=== PATIENT | female | born 1950 | race Caucasian/White ===

== ENCOUNTER → 2016-11-22 | Outpatient (CLI) | payer MEDICARE, BC ==
--- NOTE | 2016-11-22 16:06 | XR ---
EXAMINATION TYPE: XR chest 2V DATE OF EXAM: 11/22/2016 3:20 PM HISTORY: J44.9 COPD. REFERENCE: Previous study dated 04/18/2015. FINDINGS: Lung volumes are mildly prominent. The heart is mildly enlarged. There is some scarring in the left midlung. The right lung is clear. Pleural spaces are clear. IMPRESSION: 1. COPD. 2. CARDIOMEGALY. 3. SCARRING, LEFT MIDLUNG.
== END | disposition home or self-care (01) ==
LOC: RADXRMAIN 14:55
PROVIDERS: ATTEND Family Medicine
DX: J44.9 Chronic obstructive pulmonary disease, unspecified (principal); I51.7 Cardiomegaly; J98.4 Other disorders of lung
CPT/HCPCS: 71020

== ENCOUNTER 2016-11-24 14:15 | Inpatient (IN) | payer MEDICARE, BC ==
[2016-11-24] MEDS ORDERED: IPRATROPIUM-ALBUTEROL 3 ML NEB INHALATION STA (15:20)
[2016-11-24] MEDS ORDERED: methylPREDNISolone SOD SUCCI 125 MG/2 ML VIAL IV STA (15:20)
--- NOTE | 2016-11-24 15:25 | ED ---
General Adult HPI - General Chief complaint: Shortness of Breath Stated complaint: sent by dr toledo for SOB Time Seen by Provider: 11/24/16 15:07 Source: patient, RN notes reviewed Mode of arrival: ambulatory Limitations: no limitations - History of Present Illness Initial comments: Patient is a pleasant 66-year-old female presenting to the emergency Department with shortness of breath. Symptoms have been present for a few days. Patient saw her doctor and started on Medrol Dosepak without improvement of symptoms. No cough. No chest pain. No leg pain or swelling. - Related Data Home Medications Medication Instructions Recorded Confirmed Aspirin 81 mg PO DAILY 12/17/14 11/24/16 Fluticasone Propionate [Flonase 1 spray EA NOSTRIL DAILY PRN 12/17/14 11/24/16 Allergy Relief] Furosemide [Lasix] 20 mg PO DAILY PRN 12/17/14 11/24/16 Insulin NPL/Insulin Lispro 70 unit SQ HS 12/17/14 11/24/16 [humaLOG Mix 75-25 Kwikpen] Lisinopril [Prinivil] 10 mg PO DAILY 12/17/14 11/24/16 Potassium Chloride [Klor-Con 20] 20 meq PO DAILY PRN 12/17/14 11/24/16 metFORMIN HCL [Glucophage] 850 mg PO AC-SUPPER 12/17/14 11/24/16 Albuterol Inhaler [Ventolin Hfa 1 - 2 puff INHALATION RT-Q6H PRN 04/18/15 Inhaler] Budesonide-Formot 160-4.5 Mcg 2 puff INHALATION RT-BID 04/18/15 11/24/16 [Symbicort 160-4.5 Mcg Inhaler] Hydrocodone/Acetaminophen 1 tab PO BID PRN 04/18/15 11/24/16 [Hydrocodon-Acetaminophen 5-325] Insulin NPL/Insulin Lispro 60 unit SQ DAILY 04/18/15 11/24/16 [humaLOG Mix 75-25 Kwikpen] Tiotropium [place] [Spiriva] 18 mcg IH RT-DAILY 04/18/15 11/24/16 metFORMIN HCL [Glucophage] 1,700 mg PO AC-BRKFST 04/18/15 11/24/16 methylPREDNISolone Dose Pack See Taper PO DAILY 04/18/15 11/24/16 [Medrol Dose Pack] Atorvastatin [Lipitor] 80 mg PO HS 11/24/16 11/24/16 Insulin Glargine,Hum.rec.anlog 60 unit SQ HS 11/24/16 11/24/16 [Lantus Solostar] Ipratropium-Albuterol Nebulize 3 ml INHALATION RT-QID PRN 11/24/16 11/24/16 [Duoneb 0.5 mg-3 mg/3 ml Soln] Ketoconazole 2% Cream [Nizoral 2%] 1 applic TOPICAL DAILY PRN 11/24/16 11/24/16 Metoprolol Succinate (ER) [Toprol 50 mg PO DAILY 11/24/16 11/24/16 Xl] Nystatin 100,000 Unit/ml Susp 5 ml PO QID 11/24/16 11/24/16 [Mycostatin Oral Susp] Previous Rx's Medication Instructions Recorded Docusate [Colace] 100 mg PO DAILY PRN #30 cap 04/21/15 Nitroglycerin Sl Tabs [Nitrostat] 0.4 mg SUBLINGUAL Q5M PRN #1 bottle 04/21/15 Prasugrel [Effient] 10 mg PO DAILY #30 tab 04/21/15 Allergies Allergy/AdvReac Type Severity Reaction Status Date / Time codeine Allergy Nausea & Verified 11/24/16 15:15 Vomiting Review of Systems ROS Statement: Those systems with pertinent positive or pertinent negative responses have been documented in the HPI. ROS Other: All systems not noted in ROS Statement are negative. Constitutional: Denies: fever, chills Eyes: Denies: eye pain ENT: Denies: ear pain Respiratory: Reports: dyspnea. Denies: cough Cardiovascular: Denies: chest pain Endocrine: Denies: fatigue Gastrointestinal: Denies: abdominal pain Genitourinary: Denies: dysuria Musculoskeletal: Denies: back pain Skin: Denies: rash Neurological: Denies: weakness Past Medical History Past Medical History: Asthma, Chest Pain / Angina, COPD, Diabetes Mellitus, Hyperlipidemia, Hypertension, Myocardial Infarction ([place]), Syncope Additional Past Medical History / Comment(s): NEBULIZER AT HOME, Last Myocardial Infarction Date:: 2010 History of Any Multi-Drug Resistant Organisms: None Reported Past Surgical History: Cholecystectomy, Heart Catheterization With Stent Past Anesthesia/Blood Transfusion Reactions: No Reported Reaction Additional Past Anesthesia/Blood Transfusion Reaction / Comment(s): CLAUSTERPHOBIA Date of Last Stent Placement:: 2010 Past Psychological History: No Psychological Hx Reported Smoking Status: Former smoker Past Alcohol Use History: None Reported Additional Past Alcohol Use History / Comment(s): STARTED SMOKING AT AGE 14- WORKED UP TO 3 PPD, QUIT 2010 Past Drug Use History: None Reported - Past Family History Father Family Medical History: Myocardial Infarction ([place]) Additional Family Medical History / Comment(s): STENT, OPEN HEART SURGERY Mother Additional Family Medical History / Comment(s): DEPRESSION General Exam Limitations: no limitations General appearance: alert, in no apparent distress Head exam: Present: atraumatic Eye exam: Present: normal appearance, PERRL ENT exam: Present: normal oropharynx Neck exam: Present: normal inspection Respiratory exam: Present: decreased breath sounds Cardiovascular Exam: Present: regular rate, normal rhythm GI/Abdominal exam: Present: soft. Absent: tenderness Extremities exam: Present: normal inspection. Absent: pedal edema, calf tenderness Back exam: Present: normal inspection Neurological exam: Present: alert Psychiatric exam: Present: normal affect, normal mood Skin exam: Present: normal color Course Vital Signs 11/24/16 11/24/16 11/24/16 14:45 15:18 15:19 Temperature 98.7 F Pulse Rate 77 67 Respiratory 24 20 20 Rate Blood Pressure 154/65 110/67 O2 Sat by Pulse 94 L 99 Oximetry 11/24/16 11/24/16 15:36 15:47 Temperature Pulse Rate 66 66 Respiratory Rate Blood Pressure O2 Sat by Pulse Oximetry EKG Findings - EKG Comments: EKG Findings:: Normal sinus rhythm at 74. LA 196. QRS 114. QT 412. QTC 457. Left axis. Left anterior fascicular block. LVH with repolarization. Nonspecific T waves. Medical Decision Making - Medical Decision Making Patient reevaluated and resting comfortably in bed. Patient updated on results and plan. Concern for non-ST elevation myocardial infarction secondary to elevated troponin. Patient will be treated for this and cardiology consult. Admission orders written. IV heparin started. Case discussed in detail with Dr. Hamlin, who will admit for Dr. Zelaya. - Lab Data Result diagrams: 11/24/16 15:35 11/24/16 15:35 Lab Results 03/31/17 03/31/17 03/31/17 Range/Units 15:35 15:35 15:35 WBC 16.9 H (3.8-10.6) k/uL RBC 3.76 L (3.80-5.40) m/uL Hgb 11.7 (11.4-16.0) gm/dL Hct 35.2 (34.0-46.0) % MCV 93.7 (80.0-100.0) fL MCH 31.1 (25.0-35.0) pg MCHC 33.2 (31.0-37.0) g/dL RDW 13.1 (11.5-15.5) % Plt Count 338 (150-450) k/uL Neutrophils % 84 % Lymphocytes % 10 % Monocytes % 5 % Eosinophils % 0 % Basophils % 0 % Neutrophils # 14.2 H (1.3-7.7) k/uL Lymphocytes # 1.7 (1.0-4.8) k/uL Monocytes # 0.8 (0-1.0) k/uL Eosinophils # 0.1 (0-0.7) k/uL Basophils # 0.1 (0-0.2) k/uL PT (9.0-12.0) sec INR (<1.1) APTT (22.0-30.0) sec Sodium 140 (137-145) mmol/L Potassium 4.4 (3.5-5.1) mmol/L Chloride 102 (98-107) mmol/L Carbon Dioxide 26 (22-30) mmol/L Anion Gap 12 mmol/L BUN 19 H (7-17) mg/dL Creatinine 0.73 (0.52-1.04) mg/dL Est GFR (MDRD) Af Amer >60 (>60 ml/min/1.73 sqM) Est GFR (MDRD) Non-Af >60 (>60 ml/min/1.73 sqM) Glucose 394 H (74-99) mg/dL Calcium 9.0 (8.4-10.2) mg/dL Total Bilirubin 0.9 (0.2-1.3) mg/dL AST 25 (14-36) U/L ALT 28 (9-52) U/L Alkaline Phosphatase 68 (38-126) U/L Total Creatine Kinase 170 H (30-135) U/L CK-MB (CK-2) 4.2 H* (0.0-2.4) ng/mL CK-MB (CK-2) Rel Index 2.5 Troponin I 1.050 H* (0.000-0.034) ng/mL Total Protein 6.5 (6.3-8.2) g/dL Albumin 3.7 (3.5-5.0) g/dL 11/24/16 Range/Units 15:35 WBC (3.8-10.6) k/uL RBC (3.80-5.40) m/uL Hgb (11.4-16.0) gm/dL Hct (34.0-46.0) % MCV (80.0-100.0) fL MCH (25.0-35.0) pg MCHC (31.0-37.0) g/dL RDW (11.5-15.5) % Plt Count (150-450) k/uL Neutrophils % % Lymphocytes % % Monocytes % % Eosinophils % % Basophils % % Neutrophils # (1.3-7.7) k/uL Lymphocytes # (1.0-4.8) k/uL Monocytes # (0-1.0) k/uL Eosinophils # (0-0.7) k/uL Basophils # (0-0.2) k/uL PT 10.6 (9.0-12.0) sec INR 1.0 (<1.1) APTT 21.9 L (22.0-30.0) sec Sodium (137-145) mmol/L Potassium (3.5-5.1) mmol/L Chloride (98-107) mmol/L Carbon Dioxide (22-30) mmol/L Anion Gap mmol/L BUN (7-17) mg/dL Creatinine (0.52-1.04) mg/dL Est GFR (MDRD) Af Amer (>60 ml/min/1.73 sqM) Est GFR (MDRD) Non-Af (>60 ml/min/1.73 sqM) Glucose (74-99) mg/dL Calcium (8.4-10.2) mg/dL Total Bilirubin (0.2-1.3) mg/dL AST (14-36) U/L ALT (9-52) U/L Alkaline Phosphatase (38-126) U/L Total Creatine Kinase (30-135) U/L CK-MB (CK-2) (0.0-2.4) ng/mL CK-MB (CK-2) Rel Index Troponin I (0.000-0.034) ng/mL Total Protein (6.3-8.2) g/dL Albumin (3.5-5.0) g/dL - Radiology Data Radiology results: image reviewed (Chest x-ray shows COPD. No acute process.) Critical Care Time Critical Care Time: Yes Total Critical Care Time: 33 Disposition Clinical Impression: COPD exacerbation, NSTEMI (non-ST elevated myocardial infarction) Disposition: ADMITTED IP TO THIS HOSP Condition: Serious Time of Disposition: 16:51
[2016-11-24 15:44] LABS: Basophils # (A) 0.1 k/uL (0-0.2); Basophils % (A) 0 %; CH 30.6; CHCM 32.8; Eosinophils # (A) 0.1 k/uL (0-0.7); Eosinophils % (A) 0 %; HCT 35.2 % (34.0-46.0); HDW 2.68; HGB 11.7 gm/dL (11.4-16.0); Luc # (Auto) 0.19; Luc % (Auto) 1; Lymphocytes # (A) 1.7 k/uL (1.0-4.8); Lymphocytes % (A) 10 %; MCH 31.1 pg (25.0-35.0); MCHC 33.2 g/dL (31.0-37.0); MCV 93.7 fL (80.0-100.0); Mean Platelet Volume 7.3; Monocytes # (A) 0.8 k/uL (0-1.0); Monocytes % (A) 5 %; Neutrophils # (A) 14.2 k/uL (1.3-7.7); Neutrophils % (A) 84 %; RBC 3.76 m/uL (3.80-5.40); RDW 13.1 % (11.5-15.5); WBC 16.9 k/uL (3.8-10.6); WBC (Perox) 17.07
[2016-11-24 15:52] LABS: ALT 28 U/L (9-52); AST 25 U/L (14-36); Alkaline Phosphatase 68 U/L (38-126); Anion Gap 12 mmol/L; Blood Urea Nitrogen 19 mg/dL (7-17); Carbon Dioxide 26 mmol/L (22-30); Chloride 102 mmol/L (98-107); Glucose 394 mg/dL (74-99); Non-African American GFR(MDRD) >60 (>60 ml/min/1.73 sqM); Potassium 4.4 mmol/L (3.5-5.1); Sodium 140 mmol/L (137-145); Total Bilirubin 0.9 mg/dL (0.2-1.3); Total Protein 6.5 g/dL (6.3-8.2)
[2016-11-24 16:14] LABS: Partial Thromboplastin Time 21.9 sec (22.0-30.0); Prothrombin Time 10.6 sec (9.0-12.0)
[2016-11-24 16:19] LABS: Creatine Kinase MB 4.2 ng/mL (0.0-2.4)
[2016-11-24 16:21] LABS: Troponin I 1.05 ng/mL (0.000-0.034)
--- NOTE | 2016-11-24 16:23 | XR ---
EXAMINATION TYPE: XR chest 2V DATE OF EXAM: 11/24/2016 4:06 PM HISTORY: difficulty breathing. REFERENCE: Previous study dated 11/22/2016. FINDINGS: The lungs are overinflated. The heart is enlarged. There is atelectatic change in the left midlung and at the right lung base. The overall appearance has not changed from previous. IMPRESSION: 1. COPD. 2. CARDIOMEGALY. 3. BILATERAL AREAS OF ATELECTASIS.
[2016-11-24] MEDS ORDERED: NITROGLYCERIN SL TABS 0.4 MG TAB SUBLINGUAL PRN ×2 (16:52→17:48)
[2016-11-24] MEDS ORDERED: HEPARIN SODIUM,PORCINE 5,000 UNIT/ML 1 ML VIAL IV PRN (16:52)
[2016-11-24] MEDS ORDERED: HEPARIN SODIUM,PORCINE 5,000 UNIT/ML 1 ML VIAL IV ONE (16:52)
[2016-11-24] MEDS ORDERED: IPRATROPIUM-ALBUTEROL 3 ML NEB INHALATION PRN (16:52)
[2016-11-24] MEDS ORDERED: ASPIRIN 81 MG CHEW PO STA (16:52)
[2016-11-24] MEDS ORDERED: HEPARIN SODIUM,PORCINE/D5W PMX 25,000 UNIT in DEXTROSE/WATER 1 500ML.BAG IV SCH (17:00)
[2016-11-24] MEDS ORDERED: CLOTRIMAZOLE 1% CREAM 15 GM TUBE TOPICAL PRN (17:48)
[2016-11-24] MEDS ORDERED: DOCUSATE 100 MG CAP PO PRN (17:48)
[2016-11-24] MEDS ORDERED: FUROSEMIDE 20 MG TAB PO PRN (17:48)
[2016-11-24] MEDS ORDERED: FLUTICASONE 50MCG/SPRAY NASAL 16GM EA NOSTRIL PRN (17:48)
[2016-11-24] MEDS ORDERED: ALBUTEROL NEBULIZED 2.5 MG/3 ML INHALATION PRN (17:51)
[2016-11-24 18:29] LABS: Glucose,Whole Blood 365 mg/dL (75-99)
[2016-11-24] MEDS ORDERED: INSULIN REGULAR BOLUS (FROM DRIP BAG) IV ONE (18:33)
[2016-11-24 19:26] LABS: Hemoglobin A1C 9.9 % (4.2-6.1)
[2016-11-24] MEDS ORDERED: IPRATROPIUM-ALBUTEROL 3 ML NEB INHALATION SCH (20:00)
[2016-11-24] MEDS: INSULIN REGULAR 100 UNIT in SODIUM CHLORIDE 0.9% 100 ML IV SCH ×2 (20:03→23:34)
[2016-11-24 20:12] LABS: Glucose,Whole Blood 526 mg/dL (75-99)
[2016-11-24] MEDS: IPRATROPIUM-ALBUTEROL 3 ML NEB INHALATION SCH (20:27)
[2016-11-24] MEDS: SYMBICORT 160-4.5 MCG INHALER INHALATION SCH (20:27)
[2016-11-24 20:32] LABS: Glucose,Whole Blood 449 mg/dL (75-99)
[2016-11-24] MEDS ORDERED: INSULIN LISPRO (humaLOG) 300 UNIT/3 ML VIAL SQ ONE (20:43)
[2016-11-24 21:24] LABS: Glucose,Whole Blood 393 mg/dL (75-99)
[2016-11-24 21:38] LABS: Creatine Kinase MB 3.8 ng/mL (0.0-2.4); Troponin I 0.867 ng/mL (0.000-0.034)
[2016-11-24 21:57] LABS: Glucose,Whole Blood 362 mg/dL (75-99)
[2016-11-24 22:00] LABS: Glucose,Whole Blood 436 mg/dL (75-99)
[2016-11-24] MEDS: methylPREDNISolone SOD SUCCI 125 MG/2 ML VIAL IV SCH ×2 (22:02→23:37)
[2016-11-24 22:30] LABS: Glucose,Whole Blood 364 mg/dL (75-99)
[2016-11-24 23:03] LABS: Glucose,Whole Blood 328 mg/dL (75-99)
[2016-11-24 23:28] LABS: Glucose,Whole Blood 316 mg/dL (75-99)
[2016-11-24] MEDS: ATORVASTATIN 80 MG TAB PO SCH (23:35)
[2016-11-24] MEDS: NITROGLYCERIN OINT 1 INCH/GM PACKET TOPICAL SCH ×2 (23:35→23:42)
[2016-11-24] MEDS: NYSTATIN 100,000 UNIT/ML SUSP 500,000 UNIT/5 ML CUP PO SCH ×2 (23:36→23:38)
[2016-11-24 23:57] LABS: Glucose,Whole Blood 296 mg/dL (75-99)
[2016-11-25] MEDS: ATORVASTATIN 80 MG TAB PO SCH ×2 (00:15→21:04)
[2016-11-25 00:35] LABS: Glucose,Whole Blood 298 mg/dL (75-99)
[2016-11-25 00:58] LABS: Glucose,Whole Blood 272 mg/dL (75-99)
[2016-11-25] MEDS: HYDROcodone/APAP 5-325MG 1 EACH TAB PO PRN ×3 (00:59→21:07)
[2016-11-25 01:31] LABS: Glucose,Whole Blood 264 mg/dL (75-99)
[2016-11-25 02:19] LABS: Glucose,Whole Blood 259 mg/dL (75-99)
[2016-11-25 02:37] LABS: Glucose,Whole Blood 235 mg/dL (75-99)
[2016-11-25 04:08] LABS: Creatine Kinase MB 2.9 ng/mL (0.0-2.4); Troponin I 0.657 ng/mL (0.000-0.034)
[2016-11-25 04:26] LABS: Glucose,Whole Blood 229 mg/dL (75-99)
[2016-11-25 06:16] LABS: Glucose,Whole Blood 211 mg/dL (75-99)
[2016-11-25] MEDS: NITROGLYCERIN OINT 1 INCH/GM PACKET TOPICAL SCH ×3 (06:25→20:37)
[2016-11-25] MEDS: methylPREDNISolone SOD SUCCI 125 MG/2 ML VIAL IV SCH ×2 (06:25→13:40)
[2016-11-25 06:30] LABS: Anion Gap 10 mmol/L; Blood Urea Nitrogen 24 mg/dL (7-17); Calcium 9.2 mg/dL (8.4-10.2); Carbon Dioxide 24 mmol/L (22-30); Chloride 105 mmol/L (98-107); Cholesterol 112 mg/dL (<200); Glucose 206 mg/dL (74-99); HDL Cholesterol 46 mg/dL (40-60); Non-African American GFR(MDRD) >60 (>60 ml/min/1.73 sqM); Potassium 4.3 mmol/L (3.5-5.1); Sodium 139 mmol/L (137-145); Triglycerides 86 mg/dL (<150)
[2016-11-25] MEDS: INSULIN LISPRO (humaLOG) 300 UNIT/3 ML VIAL SQ SCH (06:32)
[2016-11-25 06:52] LABS: Basophils % (A) 0 %; CH 30.9; CHCM 33.2; Eosinophils % (A) 0 %; HCT 33.8 % (34.0-46.0); HDW 2.63; HGB 11.1 gm/dL (11.4-16.0); Luc # (Auto) 0.08; Luc % (Auto) 1; Lymphocytes # (A) 1.1 k/uL (1.0-4.8); Lymphocytes % (A) 8 %; MCH 30.6 pg (25.0-35.0); MCHC 32.7 g/dL (31.0-37.0); MCV 93.6 fL (80.0-100.0); Mean Platelet Volume 8.8; Monocytes # (A) 0.5 k/uL (0-1.0); Monocytes % (A) 4 %; Neutrophils # (A) 11.2 k/uL (1.3-7.7); Neutrophils % (A) 87 %; RBC 3.61 m/uL (3.80-5.40); RDW 13.3 % (11.5-15.5); WBC 12.9 k/uL (3.8-10.6); WBC (Perox) 13.26
[2016-11-25 08:34] LABS: Glucose,Whole Blood 223 mg/dL (75-99)
--- NOTE | 2016-11-25 08:35 | P.CRDCN ---
History of Present Illness Consult date: 11/25/16 Requesting physician: Rohan Hamlin Consult reason: chest pain Chief complaint: Shortness of breath History of present illness: This is a pleasant 66-year-old female with history of diabetes, hypertension, hyperlipidemia, coronary artery disease with prior stent placement to the LAD as well as the RCA. The most recent stents were placed in March 2015 at which time she underwent stenting of the LAD and the RCA. Patient also has a history of asthma. Patient presents to the hospital with a two-week duration of progressively worsening shortness of breath. She states that she was treated with steroids as an outpatient, with no relief of symptoms. She was using her breathing treatments frequently without any relief. 2 nights ago, the patient states she had significant chest heaviness with her breathing, the night before she came in she had upper scapula discomfort and pain down her left arm. For this reason she came to the emergency room for further evaluation. Initial troponin on presentation here 1.05, subsequent troponin 0.8 and 0.6. Blood sugars on arrival 365. BUN 24, creatinine 0.7. White blood cell count on arrival 16.9, 12.9 this morning. Elevated white blood cell count could be secondary to steroids as an outpatient. The pressure on arrival 154/65, heart rate in the 70s. Blood pressure this morning 140/60. The patient has been afebrile. She was initiated on IV heparin in the emergency room, she is also on an aspirin daily, Lipitor, lisinopril, metoprolol tartrate, and Effient. At the time of my examination this morning, patient does state that her breathing is somewhat improved, she denies any chest pain at present. She is on an insulin drip. Past Medical History Past Medical History: Asthma, Chest Pain / Angina, COPD, Diabetes Mellitus, Hyperlipidemia, Hypertension, Myocardial Infarction ([place]), Syncope Additional Past Medical History / Comment(s): NEBULIZER AT HOME, Last Myocardial Infarction Date:: 2010 History of Any Multi-Drug Resistant Organisms: None Reported Past Surgical History: Cholecystectomy, Heart Catheterization With Stent Additional Past Surgical History / Comment(s): 1st stent in 2010, 3 more stents placed -about 2014 Past Anesthesia/Blood Transfusion Reactions: No Reported Reaction Additional Past Anesthesia/Blood Transfusion Reaction / Comment(s): CLAUSTERPHOBIA Date of Last Stent Placement:: 2014 Past Psychological History: No Psychological Hx Reported Smoking Status: Former smoker Past Alcohol Use History: None Reported Additional Past Alcohol Use History / Comment(s): STARTED SMOKING AT AGE 14- WORKED UP TO 3 PPD, QUIT 2010 Past Drug Use History: None Reported - Past Family History Father Family Medical History: Myocardial Infarction ([place]) Additional Family Medical History / Comment(s): STENT, OPEN HEART SURGERY Mother Additional Family Medical History / Comment(s): DEPRESSION Medications and Allergies Home Medications Medication Instructions Recorded Confirmed Type Aspirin 81 mg PO DAILY 12/17/14 11/24/16 History Fluticasone Propionate [Flonase 1 spray EA NOSTRIL DAILY PRN 12/17/14 11/24/16 History Allergy Relief] Furosemide [Lasix] 20 mg PO DAILY PRN 12/17/14 11/24/16 History Insulin NPL/Insulin Lispro 70 unit SQ AC-SUPPER 12/17/14 11/24/16 History [humaLOG Mix 75-25 Kwikpen] Lisinopril [Prinivil] 10 mg PO DAILY 12/17/14 11/24/16 History Potassium Chloride [Klor-Con 20] 20 meq PO DAILY PRN 12/17/14 11/24/16 History metFORMIN HCL [Glucophage] 850 mg PO AC-SUPPER 12/17/14 11/24/16 History Albuterol Inhaler [Ventolin Hfa 1 - 2 puff INHALATION RT-Q6H PRN 04/18/15 History Inhaler] Budesonide-Formot 160-4.5 Mcg 2 puff INHALATION RT-BID 04/18/15 11/24/16 History [Symbicort 160-4.5 Mcg Inhaler] Hydrocodone/Acetaminophen 1 tab PO BID PRN 04/18/15 11/24/16 History [Hydrocodon-Acetaminophen 5-325] Insulin NPL/Insulin Lispro 60 unit SQ DAILY 04/18/15 11/24/16 History [humaLOG Mix 75-25 Kwikpen] Tiotropium [place] [Spiriva] 18 mcg IH RT-DAILY 04/18/15 11/24/16 History metFORMIN HCL [Glucophage] 1,700 mg PO AC-BRKFST 04/18/15 11/24/16 History methylPREDNISolone Dose Pack See Taper PO DAILY 04/18/15 11/24/16 History [Medrol Dose Pack] Atorvastatin [Lipitor] 80 mg PO HS 11/24/16 11/24/16 History Insulin Glargine,Hum.rec.anlog 60 unit SQ HS 11/24/16 11/24/16 History [Lantus Solostar] Ipratropium-Albuterol Nebulize 3 ml INHALATION RT-QID PRN 11/24/16 11/24/16 History [Duoneb 0.5 mg-3 mg/3 ml Soln] Ketoconazole 2% Cream [Nizoral 2%] 1 applic TOPICAL DAILY PRN 11/24/16 11/24/16 History Metoprolol Succinate (ER) [Toprol 50 mg PO DAILY 11/24/16 11/24/16 History Xl] Nystatin 100,000 Unit/ml Susp 5 ml PO QID 11/24/16 11/24/16 History [Mycostatin Oral Susp] Allergies Allergy/AdvReac Type Severity Reaction Status Date / Time codeine Allergy Nausea & Verified 11/24/16 15:15 Vomiting Physical Exam Vitals: Vital Signs Temp Pulse Pulse Resp BP BP Pulse Ox 11/25/16 04:00 97.0 F L 51 L 16 141/64 97 11/25/16 00:00 97.6 F 65 16 172/73 98 11/24/16 20:30 80 11/24/16 20:19 80 11/24/16 20:00 97.2 F L 73 18 166/70 97 11/24/16 18:00 97.1 F L 65 16 158/75 98 11/24/16 17:35 97.9 F 68 16 188/81 98 Intake and Output 11/24/16 11/25/16 11/25/16 22:59 06:59 14:59 Intake Total 187.572 960.782 Balance 187.572 960.782 Intake: IV 259 Heparin Sodium,Porcine/ 139 D5w Pmx 25,000 unit In Dextrose/Water 1 500ml. bag @ 9.3 UNITS/KG/HR 19. 91 mls/hr IV .Q24H KAREN Rx #:[id number] Insulin Regular 100 unit 120 In Sodium Chloride 0.9% 100 ml @ Titrate IV .Q0M KAREN Rx#:[id number] Intake, IV Titration 67.572 401.782 Amount Heparin Sodium,Porcine/ 313.203 D5w Pmx 25,000 unit In Dextrose/Water 1 500ml. bag @ 9.3 UNITS/KG/HR 19. 91 mls/hr IV .Q24H KAERN Rx #:[id number] Insulin Regular 100 unit 67.572 88.579 In Sodium Chloride 0.9% 100 ml @ Titrate IV .Q0M KAREN Rx#:[id number] Oral 120 300 Other: Voiding Method Toilet Toilet # Voids 1 Weight 107.048 kg 109.6 kg PHYSICAL EXAMINATION: HEENT: Head is atraumatic, normocephalic. Pupils equal, round. Neck is supple. There is no elevated jugular venous pressure. HEART EXAMINATION: Heart S1, S2 normal. No murmur or gallop heard. CHEST EXAMINATION: Lungs are clear to auscultation and precussion with a mild decrease in air exchange. No chest wall tenderness is noted on palpation or with deep breathing. ABDOMEN: Soft, obese, nontender. Bowel sounds are heard. No organomegaly noted. EXTREMITIES: 1+ peripheral pulses with no evidence of peripheral edema and no calf tenderness noted. NEUROLOGIC patient is awake, alert and oriented -3. . Results 11/25/16 05:39 11/25/16 05:39 Cardiac Enzymes 11/24/16 11/25/16 Range/Units 20:53 03:01 CK-MB (CK-2) 3.8 H* 2.9 H* (0.0-2.4) ng/mL Troponin I 0.867 H* 0.657 H* (0.000-0.034) ng/mL Coagulation 11/24/16 11/25/16 Range/Units 23:37 05:39 APTT 23.9 29.4 (22.0-30.0) sec Lipids 11/25/16 Range/Units 05:39 Triglycerides 86 (<150) mg/dL Cholesterol 112 (<200) mg/dL HDL Cholesterol 46 (40-60) mg/dL CBC 11/25/16 Range/Units 05:39 WBC 12.9 H (3.8-10.6) k/uL RBC 3.61 L (3.80-5.40) m/uL Hgb 11.1 L (11.4-16.0) gm/dL Hct 33.8 L (34.0-46.0) % Plt Count 296 (150-450) k/uL Comprehensive Metabolic Panel 11/25/16 Range/Units 05:39 Sodium 139 (137-145) mmol/L Potassium 4.3 (3.5-5.1) mmol/L Chloride 105 (98-107) mmol/L Carbon Dioxide 24 (22-30) mmol/L BUN 24 H (7-17) mg/dL Creatinine 0.70 (0.52-1.04) mg/dL Glucose 206 H (74-99) mg/dL Calcium 9.2 (8.4-10.2) mg/dL Current Medications Generic Name Dose Route Start Last Admin Trade Name Freq PRN Reason Stop Dose Admin Hydrocodone Bitart/Acetaminophen 1 each 11/24/16 17:48 11/25/16 00:59 [place] 5-325 PO 1 each BID PRN Administration Pain Albuterol Sulfate 2.5 mg 11/24/16 17:51 Ventolin Nebulized INHALATION RT-Q2H PRN Shortness Of Breath Or Wheezing Albuterol/Ipratropium 3 ml 11/24/16 20:00 11/24/16 20:27 Duoneb 0.5 Mg-3 Mg/3 Ml Soln INHALATION 3 ml RT-QID KAREN Administration Aspirin 325 mg 11/25/16 09:00 Aspirin PO DAILY KAREN Atorvastatin Calcium 80 mg 11/24/16 21:00 11/25/16 00:15 Lipitor PO Not Given HS KAREN Budesonide/Formoterol Fumarate 2 puff 11/24/16 20:00 11/24/16 20:27 Symbicort 160-4.5 Mcg Inhaler INHALATION 2 puff RT-BID KAREN Administration Clotrimazole 1 applic 11/24/16 17:48 Lotrimin Cream TOPICAL DAILY PRN Rash Docusate Sodium 100 mg 11/24/16 17:48 Colace PO DAILY PRN constipation Fluticasone Propionate 1 spray 11/24/16 17:48 Flonase Nasal [place] EA NOSTRIL DAILY PRN Allergy Symptoms Furosemide 20 mg 11/24/16 17:48 Lasix PO DAILY PRN SWELLING/EDEMA Heparin Sodium (Porcine) 0 unit 11/24/16 16:52 Heparin IV Q6HR PRN Low PTT Protocol Heparin Sodium/Dextrose 25,000 500 mls @ 19.91 mls/hr 11/24/16 17:00 06:47 unit/ IV Solution IV 15.3 units/kg/hr .Q24H KAREN 32.75 mls/hr Protocol Titration 9.3 UNITS/KG/HR Insulin Human Regular 100 unit 101 mls @ 0 mls/hr 11/24/16 18:45 11/25/16 06: 21 / Sodium Chloride IV 0.06 units/kg/hr .Q0M KAREN 7 mls/hr Protocol Titration Titrate Insulin Human Lispro 14 unit 11/25/16 07:30 11/25/16 06:32 Humalog SQ Not Given AC-TID [facility] Lisinopril 10 mg 11/25/16 09:00 Zestril PO DAILY [facility] Methylprednisolone Sodium Succinate 60 mg 11/24/16 18:00 11/25/16 06:25 Solu-Medrol IV 60 mg Q6HR KAREN Administration Metoprolol Succinate 50 mg 11/25/16 09:00 Toprol Xl PO DAILY [facility] Nitroglycerin 1 inch 11/24/16 18:00 11/25/16 06:25 Nitro-Bid Oint TOPICAL 1 inch Q6HR [facility] Administration Nitroglycerin 0.4 mg 11/24/16 16:52 Nitrostat SUBLINGUAL Q5M PRN Chest Pain Nystatin 500,000 unit 11/24/16 18:00 11/24/16 23:38 Mycostatin Oral Susp PO Not Given QID [facility] Prasugrel 10 mg 11/25/16 09:00 Effient PO DAILY [facility] Sodium Chloride 10 ml 11/24/16 21:00 11/24/16 23:36 Saline Flush IV 10 ml BID KAREN Administration Intake and Output 11/24/16 11/25/16 11/25/16 22:59 06:59 14:59 Intake Total 187.572 960.782 Balance 187.572 960.782 Intake: IV 259 Heparin Sodium,Porcine/ 139 D5w Pmx 25,000 unit In Dextrose/Water 1 500ml. bag @ 9.3 UNITS/KG/HR 19. 91 mls/hr IV .Q24H [facility] Rx #:[id number] Insulin Regular 100 unit 120 In Sodium Chloride 0.9% 100 ml @ Titrate IV .Q0M [facility] Rx#:[id number] Intake, IV Titration 67.572 401.782 Amount Heparin Sodium,Porcine/ 313.203 D5w Pmx 25,000 unit In Dextrose/Water 1 500ml. bag @ 9.3 UNITS/KG/HR 19. 91 mls/hr IV .Q24H KAREN Rx #:[id number] Insulin Regular 100 unit 67.572 88.579 In Sodium Chloride 0.9% 100 ml @ Titrate IV .Q0M KAREN Rx#:[id number] Oral 120 300 Other: Voiding Method Toilet Toilet # Voids 1 Weight 107.048 kg 109.6 kg 11/25/16 05:39 11/25/16 05:39 EKG Interpretations (text) EKG on arrival showed normal sinus rhythm with lateral ST-T wave changes. Subsequent EKG performed this morning shows a sinus bradycardia with first- degree AV block and evidence of inferior ST-T wave changes. Assessment and Plan Plan: Assessment and plan #1 symptoms of progressive shortness of breath with associated chest heaviness and left arm discomfort suggestive of acute coronary syndrome. Troponins 1.05, 0.8, 0.6. EKG shows normal sinus rhythm with inferior lateral ST-T wave changes. #2 known history of coronary artery disease with prior stent placement of the LAD and RCA, most recent procedure was done in March 2015 at which time patient underwent stenting of the LAD and RCA. #3 uncontrolled diabetes #4 hypertension #5 hyperlipidemia #6 asthma Plan We will obtain an echocardiogram with Doppler study. Continue IV heparin. The patient has been advised that she may need to undergo cardiac catheterization for more definitive diagnosis, the risks and the benefits once again were explained to the patient in detail. Further recommendations will be based on these findings and patient's clinical course. DNP note has been reviewed, I agree with a documented findings and plan of care. Patient was seen and examined.
[2016-11-25] MEDS: SYMBICORT 160-4.5 MCG INHALER INHALATION SCH ×2 (08:39→20:50)
[2016-11-25] MEDS: IPRATROPIUM-ALBUTEROL 3 ML NEB INHALATION SCH ×4 (08:39→20:50)
[2016-11-25] MEDS ORDERED: ASPIRIN 325 MG TAB PO SCH (09:00)
[2016-11-25] MEDS ORDERED: LISINOPRIL 10 MG TAB PO SCH (09:00)
[2016-11-25] MEDS ORDERED: PRASUGREL 10 MG TAB PO SCH (09:00)
--- NOTE | 2016-11-25 10:17 | P.PN ---
Progress Note - Text this is an addendum to the dictated cardiology consultation. The patient has a history of CAD status post stenting of the RCA and LAD in March 2015 who presents with symptoms of progressive chest discomfort and had evidence of non- ST segment elevation ND. She is pain-free at this time. She is not very active physically and has some dyspnea on exertion. Her EKG shows sinus mechanism with T-wave inversion in the inferior leads and her troponin were elevated on presentation and are on the way down. When she had her percutaneous revascularization she received 2 stents in the RCA and one stent in the LAD. 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 Based on the prior history and the pattern of the symptoms I would recommend to proceed with coronary angiography to assess her status and guide her treatment. The rationale behind the procedure as well as the risk and the complications were discussed with the patient who was in full understanding and agreement. Thank you for this consult we will follow with you.
[2016-11-25] MEDS ORDERED: SODIUM CHLORIDE 0.9% 1,000 ML in EMPTY BAG 1 BAG IV ONE (10:58)
[2016-11-25] MEDS ORDERED: ATORVASTATIN 80 MG TAB PO STA (10:58)
[2016-11-25] MEDS ORDERED: ASPIRIN 325 MG TAB PO STA (10:58)
[2016-11-25] MEDS ORDERED: ALPRAZolam 0.5 MG TAB PO PRN (10:58)
[2016-11-25] MEDS ORDERED: NITROGLYCERIN SL TABS 0.4 MG TAB SUBLINGUAL PRN (10:58)
[2016-11-25] MEDS ORDERED: ALPRAZolam 0.25 MG TAB PO PRN (10:58)
[2016-11-25] MEDS: METOPROLOL SUCCINATE (ER) 50 MG TAB.ER.24H PO SCH (11:48)
[2016-11-25] MEDS: NYSTATIN 100,000 UNIT/ML SUSP 500,000 UNIT/5 ML CUP PO SCH ×4 (11:49→21:08)
[2016-11-25 11:51] LABS: Glucose,Whole Blood 201 mg/dL (75-99)
--- NOTE | 2016-11-25 12:00 | P.CNPUL ---
History of Present Illness Consult date: 11/25/16 Requesting physician: Rohan Hamlin Reason for consult: dyspnea Chief complaint: shortness of breath, back pain History of present illness: This is a very pleasant 66-year-old female patient who follows with Dr. Gonzales as her primary care physician. she has a history of hypertension, hyperlipidemia,diabetes mellitus, coronary artery disease with previous stent placements, morbid obesity. She also has a history of chronic obstructive pulmonary disease from previous smoking history and follows with Dr. Monique in our office for the same. She is maintained on Symbicort, Spiriva and albuterol. She presented here yesterday with complaints of increasing shortness of breath on minimal exertion. She also had some back discomfort radiating down her arms. She is found to be a non-ST segment elevation myocardial infarction and the plan is for cardiac catheterization today.she is seen in consultation on the selective care unit. She is currently awake and alert in no acute distress. Her chest x-ray shows evidence of chronic obstructive disease, cardiomegaly and bilateral atelectasis. No significant change from previous. She is maintaining good O2 saturations in the upper 90s on room air. She's been afebrile. She denies any current chest discomfort. No back pain. No palpitations, lightheadedness or dizziness. Review of Systems 14 point review of system was conducted. All negative other than as mentioned in HPI. Past Medical History Past Medical History: Asthma, Chest Pain / Angina, COPD, Diabetes Mellitus, Hyperlipidemia, Hypertension, Myocardial Infarction (CO), Syncope Additional Past Medical History / Comment(s): NEBULIZER AT HOME, Last Myocardial Infarction Date:: 2010 History of Any Multi-Drug Resistant Organisms: None Reported Past Surgical History: Cholecystectomy, Heart Catheterization With Stent Additional Past Surgical History / Comment(s): 1st stent in 2010, 3 more stents placed -about 2014 Past Anesthesia/Blood Transfusion Reactions: No Reported Reaction Additional Past Anesthesia/Blood Transfusion Reaction / Comment(s): CLAUSTERPHOBIA Date of Last Stent Placement:: 2014 Past Psychological History: No Psychological Hx Reported Smoking Status: Former smoker Past Alcohol Use History: None Reported Additional Past Alcohol Use History / Comment(s): STARTED SMOKING AT AGE 14- WORKED UP TO 3 [employer], QUIT 2010 Past Drug Use History: None Reported - Past Family History Father Family Medical History: Myocardial Infarction (CO) Additional Family Medical History / Comment(s): STENT, OPEN HEART SURGERY Mother Additional Family Medical History / Comment(s): DEPRESSION Medications and Allergies Home Medications Medication Instructions Recorded Confirmed Type Aspirin 81 mg PO DAILY 12/17/14 11/24/16 History Fluticasone Propionate [Flonase 1 spray EA NOSTRIL DAILY PRN 12/17/14 11/24/16 History Allergy Relief] Furosemide [Lasix] 20 mg PO DAILY PRN 12/17/14 11/24/16 History Insulin NPL/Insulin Lispro 70 unit SQ AC-SUPPER 12/17/14 11/24/16 History [humaLOG Mix 75-25 Kwikpen] Lisinopril [Prinivil] 10 mg PO DAILY 12/17/14 11/24/16 History Potassium Chloride [Klor-Con 20] 20 meq PO DAILY PRN 12/17/14 11/24/16 History metFORMIN HCL [Glucophage] 850 mg PO AC-SUPPER 12/17/14 11/24/16 History Albuterol Inhaler [Ventolin Hfa 1 - 2 puff INHALATION RT-Q6H PRN 04/18/15 History Inhaler] Budesonide-Formot 160-4.5 Mcg 2 puff INHALATION RT-BID 04/18/15 11/24/16 History [Symbicort 160-4.5 Mcg Inhaler] Hydrocodone/Acetaminophen 1 tab PO BID PRN 04/18/15 11/24/16 History [Hydrocodon-Acetaminophen 5-325] Insulin NPL/Insulin Lispro 60 unit SQ DAILY 04/18/15 11/24/16 History [humaLOG Mix 75-25 Kwikpen] Tiotropium Brohard [Spiriva] 18 mcg IH RT-DAILY 04/18/15 11/24/16 History metFORMIN HCL [Glucophage] 1,700 mg PO AC-BRKFST 04/18/15 11/24/16 History methylPREDNISolone Dose Pack See Taper PO DAILY 04/18/15 11/24/16 History [Medrol Dose Pack] Atorvastatin [Lipitor] 80 mg PO HS 11/24/16 11/24/16 History Insulin Glargine,Hum.rec.anlog 60 unit SQ HS 11/24/16 11/24/16 History [Lantus Solostar] Ipratropium-Albuterol Nebulize 3 ml INHALATION RT-QID PRN 11/24/16 11/24/16 History [Duoneb 0.5 mg-3 mg/3 ml Soln] Ketoconazole 2% Cream [Nizoral 2%] 1 applic TOPICAL DAILY PRN 11/24/16 11/24/16 History Metoprolol Succinate (ER) [Toprol 50 mg PO DAILY 11/24/16 11/24/16 History Xl] Nystatin 100,000 Unit/ml Susp 5 ml PO QID 11/24/16 11/24/16 History [Mycostatin Oral Susp] Allergies Allergy/AdvReac Type Severity Reaction Status Date / Time codeine Allergy Nausea & Verified 11/24/16 15:15 Vomiting Physical Exam Vitals: Vital Signs Temp Pulse Pulse Resp BP BP Pulse Ox 11/25/16 09:07 72 18 11/25/16 08:49 80 11/25/16 08:39 72 11/25/16 04:00 97.0 F L 51 L 16 141/64 97 11/25/16 00:00 97.6 F 65 16 172/73 98 11/24/16 20:30 80 11/24/16 20:19 80 11/24/16 20:00 97.2 F L 73 18 166/70 97 11/24/16 18:00 97.1 F L 65 16 158/75 98 11/24/16 17:35 97.9 F 68 16 188/81 98 Intake and Output 11/24/16 11/25/16 11/25/16 22:59 06:59 14:59 Intake Total 187.572 960.782 Balance 187.572 960.782 Intake: IV 259 Heparin Sodium,Porcine/ 139 D5w Pmx 25,000 unit In Dextrose/Water 1 500ml. bag @ 9.3 UNITS/KG/HR 19. 91 mls/hr IV .Q24H KAREN Rx #:[id number] Insulin Regular 100 unit 120 In Sodium Chloride 0.9% 100 ml @ Titrate IV .Q0M KAREN Rx#:[id number] Intake, IV Titration 67.572 401.782 Amount Heparin Sodium,Porcine/ 313.203 D5w Pmx 25,000 unit In Dextrose/Water 1 500ml. bag @ 9.3 UNITS/KG/HR 19. 91 mls/hr IV .Q24H KAREN Rx #:[id number] Insulin Regular 100 unit 67.572 88.579 In Sodium Chloride 0.9% 100 ml @ Titrate IV .Q0M KAREN Rx#:[id number] Oral 120 300 Other: Voiding Method Toilet Toilet Toilet # Voids 1 Weight 107.048 kg 109.6 kg 109.6 kg Patient Weight 11/26/16 06:59 Weight 109.6 kg GENERAL EXAM: Morbidly obese. Alert, comfortable in no apparent distress. HEAD: Normocephalic. EYES: Normal reaction of pupils, equal size. NOSE: Clear with pink turbinates. THROAT: There is crowding the posterior pharynx.No erythema or exudates. NECK: Short.No masses, no JVD. CHEST: No chest wall deformity. LUNGS: Equal air entry with no crackles, wheeze, rhonchi or dullness. CVS: S1 and S2 normal with no audible murmurs, regular rhythm. ABDOMEN: Obese, normal bowel sounds, no guarding or rigidity. SPINE: No scoliosis or deformity SKIN: No rashes CENTRAL NERVOUS SYSTEM: No focal deficits, tone is normal in all 4 extremities. Extremities: There is trace peripheral edema. No clubbing, no cyanosis. Peripheral pulses are intact. Results - Laboratory Findings CBC and BMP: 11/25/16 05:39 11/25/16 05:39 PT/INR, D-dimer PT 10.6 sec (9.0-12.0) 11/24/16 15:35 INR 1.0 (<1.1) 11/24/16 15:35 Abnormal lab findings: Abnormal Labs 11/24/16 11/24/16 11/24/16 18:24 20:01 20:31 WBC RBC Hgb Hct Neutrophils # BUN Glucose POC Glucose (mg/dL) 365 H 526 H 449 H Total Creatine Kinase CK-MB (CK-2) Troponin I 11/24/16 11/24/16 11/24/16 20:53 21:05 21:23 WBC RBC Hgb Hct Neutrophils # BUN Glucose POC Glucose (mg/dL) 436 H 393 H Total Creatine Kinase 169 H CK-MB (CK-2) 3.8 H* Troponin I 0.867 H* 11/24/16 11/24/16 11/24/16 21:55 22:28 23:01 WBC RBC Hgb Hct Neutrophils # BUN Glucose POC Glucose (mg/dL) 362 H 364 H 328 H Total Creatine Kinase CK-MB (CK-2) Troponin I 11/24/16 11/24/16 11/25/16 23:28 23:56 00:32 WBC RBC Hgb Hct Neutrophils # BUN Glucose POC Glucose (mg/dL) 316 H 296 H 298 H Total Creatine Kinase CK-MB (CK-2) Troponin I 11/25/16 11/25/16 11/25/16 00:57 01:30 02:02 WBC RBC Hgb Hct Neutrophils # BUN Glucose POC Glucose (mg/dL) 272 H 264 H 259 H Total Creatine Kinase CK-MB (CK-2) Troponin I 11/25/16 11/25/16 11/25/16 02:35 03:01 04:24 WBC RBC Hgb Hct Neutrophils # BUN Glucose POC Glucose (mg/dL) 235 H 229 H Total Creatine Kinase CK-MB (CK-2) 2.9 H* Troponin I 0.657 H* 11/25/16 11/25/16 11/25/16 05:39 05:39 06:13 WBC 12.9 H RBC 3.61 L Hgb 11.1 L Hct 33.8 L Neutrophils # 11.2 H BUN 24 H Glucose 206 H POC Glucose (mg/dL) 211 H Total Creatine Kinase CK-MB (CK-2) Troponin I 11/25/16 08:31 WBC RBC Hgb Hct Neutrophils # BUN Glucose POC Glucose (mg/dL) 223 H Total Creatine Kinase CK-MB (CK-2) Troponin I - Diagnostic Findings Chest x-ray: image reviewed Assessment and Plan Plan: Impression: #1 Non-ST segment elevation myocardial infarction. #2 Coronary artery disease with previous stent placements 4. #3 History of chronic tobacco use. #4 Chronic obstructive pulmonary disease, currently inactive and stable. #5 Hypertension. #6 Hyperlipidemia. #7 Morbid obesity. Plan: The patient was seen and evaluated by Dr. Maciel. Her chest x-ray and labs were reviewed. From the pulmonary standpoint she is quite stable. We'll assure she is back on her usual pulmonary medications. The plan is for cardiac catheterization today. We will continue to follow make further recommendations based on her clinical status.
[2016-11-25] MEDS ORDERED: LIDOCAINE 2% INJ 20 MG/ML (20 ML MDV) ONE (13:37)
[2016-11-25] MEDS ORDERED: IV FLUID CONTINUATION 1,000 ML IV ONE (13:40)
[2016-11-25] MEDS ORDERED: POTASSIUM CHLORIDE ER 20 MEQ TAB.ER PO PRN (13:45)
[2016-11-25] MEDS ORDERED: VERAPAMIL 2.5 MG/ML 2 ML AMP ONE (13:53)
[2016-11-25] MEDS ORDERED: diphenhydrAMINE 50 MG/ML 1 ML VIAL ONE (14:13)
[2016-11-25] MEDS ORDERED: fentaNYL (PF) 50 MCG/ML 2 ML AMP ONE (14:13)
[2016-11-25] MEDS ORDERED: fentaNYL (PF) 50 MCG/ML 2 ML AMP IV ONE (14:14)
[2016-11-25] MEDS ORDERED: diphenhydrAMINE 50 MG/ML 1 ML VIAL IVP ONE (14:15)
[2016-11-25] MEDS ORDERED: LIDOCAINE 2% INJ 20 MG/ML SQ ONE (14:17)
[2016-11-25] MEDS ORDERED: VERAPAMIL SYRINGE (5 MG/10 ML) INTRAARTER ONE (14:19)
[2016-11-25] MEDS ORDERED: HEPARIN SODIUM 1,000 UNIT/ML VIAL ONE (14:35)
[2016-11-25] MEDS ORDERED: IOHEXOL 350 MG/ML 100 ML BOTTLE INJ ONE (14:40)
[2016-11-25] MEDS ORDERED: RX INFO: IV CONTRAST WAS GIVEN 1 EACH MISC MISCELLANE PRN (14:52)
[2016-11-25] MEDS ORDERED: SODIUM CHLORIDE 0.9% 1,000 ML IV SCH (15:00)
[2016-11-25 15:23] LABS: Glucose,Whole Blood 287 mg/dL (75-99)
--- NOTE | 2016-11-25 16:37 | HP ---
DATE OF ADMISSION: CHIEF COMPLAINT: Shortness of breath and chest pain. HISTORY OF PRESENT ILLNESS: This 66-year-old woman with a past medical history of multiple medical problems including history of asthma, COPD, history of diabetes, hypertension, hyperlipidemia, history of myocardial infarction, cholecystitis, CAD, stent, being followed by Dr. Gonzales in the outpatient setting was admitted to [facility] complaining initially of shortness of breath. Subsequently patient felt heavy type of chest pain in the anterior part of chest which was radiating to the neck as well as shoulder and right arm. The patient came to [facility] and admitted for further evaluation and treatment. evaluation showed elevated WBC of 12.9. The troponin is 1.0867 indicating the possibility of acute non-ST elevation myocardial infarction. Cardiology evaluated the patient and cardiac catheterization has been recommended at this time. There is no history of fever, rigors. No history of headache, loss of consciousness, seizures. PAST MEDICAL HISTORY: History of chronic obstructive pulmonary disease, asthma, history of diabetes mellitus type 2, history of hypertension, hyperlipidemia, history of myocardial infarction, history of syncope, history of coronary artery disease and stent. Medications prior to admission include home medications are: 1. Insulin lispro 75/25 70 units a.c. supper. 2. Lipitor 80 mg q.h.s. 3. Medrol Dosepak. 4. 17 mg a.c. breakfast and 850 mg a.c. supper. 5. Spiriva 1 puff daily. 6. Effient 10 mg p.o. daily. 7. Klor-Con 20 mEq p.o. daily p.r.n. 8. Mycostatin 5 mL p.o. daily. 9. Nitrostat 0.4 sublingual p.r.n. 10. Toprol-XL 50 mg p.o. daily. 11. Prinivil 10 mg p.o. daily. 12. Nizoral 2% daily p.r.n. 13. DuoNeb 3 mL q.i.d. p.r.n. 14. Insulin lispro 16 units subcu daily. 15. Insulin Lantus 60 units subcu q.h.s. 16. [place] 5 mg b.i.d. p.r.n. 17. Lasix 20 mg daily p.r.n. 18. Flonase one spray daily p.r.n. 19. Colace 100 mg daily p.r.n. 20. Symbicort 160/4.5, 2 puffs b.i.d. 21. Aspirin 81 mg daily. 22. Albuterol 2 puffs q.6 p.r.n. ALLERGIES: CODEINE. FAMILY HISTORY: History of myocardial infarction in the family and stent and open heart surgery in the family. SOCIAL HISTORY: Previous history of smoking. Occasional alcohol intake. REVIEW OF SYSTEMS: ENT: No diminished hearing. No diminished vision. CARDIOVASCULAR: As mentioned earlier. RESPIRATORY: As mentioned earlier. GI: No nausea. : No dysuria. NERVOUS SYSTEM: No numbness or weakness. ALLERGY/IMMUNOLOGY: As mentioned earlier. MUSCULOSKELETAL: As mentioned earlier. ENDOCRINE: As mentioned earlier. CONSTITUTIONAL: As mentioned earlier. DERMATOLOGY: Negative. RHEUMATOLOGY: Negative. PSYCHIATRY: As mentioned earlier. PHYSICAL EXAMINATION: Alert and oriented x3. Pulse is 64, blood pressure 130/60, respirations 16, temperature normal, pulse ox 96% on room air. HEENT: Conjunctivae normal. Oral mucosa moist. NECK: No jugular venous distention. No carotid bruit. No lymph node enlargement. CARDIOVASCULAR: S1 and S2, muffled. No S3, no S4. RESPIRATORY: Breath sounds diminished at the bases. A few scattered rhonchi, no crackles. ABDOMEN: Soft, obese, nontender. No mass palpable. LEGS: No edema, no swelling. NERVOUS SYSTEM: Higher function as mentioned. Moves all four limbs. No focal motor deficits. LYMPHATIC: No lymphadenopathy in the neck, axillae or groin. SKIN: No ulcer, rash or bleeding. LABS: WBC 16.9, hemoglobin 11.1, glucose 94. Troponin 0.86. ASSESSMENT: 1. Chest pain with possible acute non-ST segment elevation myocardial infarction with troponin 0.867. 2. Shortness of breath possibly multifactorial with chronic obstructive pulmonary disease and asthma. 3. Increased WBC, possibly reactive. 4. Anemia, normocytic anemia of chronic disease. 5. Diabetes mellitus type 2. 6. Obesity with body mass index of 41.5. 7. Asthma and chronic obstructive pulmonary disease history. 8. History of coronary artery disease and stent. 9. Hypertension. 10. Hyperlipidemia. 11. History of myocardial infarction. 12. History of syncope. 13. Remote history nicotine dependence. 14. FULL CODE. RECOMMENDATIONS AND DISCUSSION: In this 66-year-old woman who presented with multiple complex medical issues, will monitor the patient closely. Continue the current medications, continue symptomatic treatment. Will initiate intensive bronchodilator treatment. Otherwise, steroids, which could be tapered as well. Cardiology consultation and possible cardiac catheterization. Guarded prognosis because of multiple complex medical issues. Further recommendations to follow. Copy of dictation forwarded to Dr. Gonzales who is the primary physician. Pulmonary also has been consulted. MARYD
[2016-11-25 17:14] LABS: Glucose,Whole Blood 338 mg/dL (75-99)
[2016-11-25] MEDS ORDERED: INSULIN NPL/INSULIN LISPRO 100 UNIT/ML 10 ML VIAL (Humalog 75/25) SQ SCH (17:30)
[2016-11-25] MEDS ORDERED: MD COMMUNICATION TO PHARMACY 1 EACH MISC PO ONE (17:51)
--- NOTE | 2016-11-25 17:54 | ECHOF ---
Referral Reason:chest pain MEASUREMENTS -------- HEIGHT: 162.6 cm WEIGHT: 109.3 kg BP: 141/64 RVIDd: 2.6 cm (< 3.3) IVSd: 1.4 cm (0.6 - 1.1) LVIDd: 4.7 cm (3.9 - 5.3) LVPWd: 1.5 cm (0.6 - 1.1) IVSs: 1.6 cm LVIDs: 4.0 cm LVPWs: 1.8 cm LA Diam: 3.7 cm (2.7 - 3.8) LAESV Index (A-L): 33.75 ml/m Ao Diam: 3.2 cm (2.0 - 3.7) AV Cusp: 2.0 cm (1.5 - 2.6) LA Diam: 4.2 cm (2.7 - 3.8) MV EXCURSION: 14.447 mm (> 18.000) MV EF SLOPE: 28 mm/s (70 - 150) EPSS: 0.6 cm MV E Syed: 0.94 m/s MV A Syed: 0.98 m/s MV E/A Ratio: 0.96 RAP: 5.00 mmHg RVSP: 12.89 mmHg FINDINGS -------- Sinus rhythm. This was a technically adequate study. The left ventricular size is normal. There is moderate concentric left ventricular hypertrophy. Overall left ventricular systolic function is low-normal with, an EF between 50 - 55 %. The right ventricle is normal in size. LA is midly dilated 29-33ml/m2. The right atrial size is normal. There is mild aortic valve sclerosis. There is no evidence of aortic regurgitation. Mild mitral annular calcification present. Mild mitral regurgitation is present. Mild tricuspid regurgitation present. There is no evidence of pulmonary hypertension. The right ventricular systolic pressure, as measured by Doppler, is 12.89mmHg. There is no pulmonic regurgitation present. There is no pericardial effusion. CONCLUSIONS -------- 1. Sinus rhythm. 2. There is no evidence of pulmonary hypertension. 3. There is no pulmonic regurgitation present. 4. There is no pericardial effusion. 5. This was a technically adequate study. 6. There is moderate concentric left ventricular hypertrophy. 7. Overall left ventricular systolic function is low-normal with, an EF between 50 - 55 %. 8. LA is midly dilated 29-33ml/m2. 9. There is mild aortic valve sclerosis. 10. Mild mitral annular calcification present. 11. Mild mitral regurgitation is present. 12. Mild tricuspid regurgitation present. MENTAL HEALTH WORKER: Frida Daily RDCS
[2016-11-25] MEDS: methylPREDNISolone SOD SUCCI 40 MG/ML 1 ML VIAL IV SCH (20:31)
[2016-11-25] MEDS ORDERED: INSULIN GLARGINE 100 UNIT/ML 10 ML VIAL SQ SCH (21:00)
[2016-11-25] MEDS: HEPARIN SODIUM,PORCINE/D5W PMX 25,000 UNIT in DEXTROSE/WATER 1 500ML.BAG IV SCH (21:06)
[2016-11-25] MEDS: LISINOPRIL 10 MG TAB PO SCH (21:07)
--- NOTE | 2016-11-25 22:08 | CC ---
Mrs. Shah is a 66-year-old female with known history of coronary artery disease, who presented with symptoms of chest discomfort and evidence of non-ST segment elevation myocardial infarction. In view of that, recommendation was made to get a cardiac catheterization. The procedure as well as the risks and complications were discussed with the patient, who is in full understanding and agreement. 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 Using Xylocaine anesthesia and Seldinger technique, a 6 Uzbek sheath was introduced in the right radial artery. Selective right and left coronary angiography was performed using 5 Uzbek 3-1/2 Bend right and left Kendall catheter. Multiple views of the coronary arteries, including hemiaxial views, were obtained. Following that, a 5 Uzbek tight pigtail catheter was used in the left ventricle and a 30-degree SHARPE view of the left ventricle was obtained. Following that, catheter and sheaths were removed. Hemostasis was obtained with deployment of a TR band. There was no immediate complication. Patient is returned to her room in stable condition. Of note, the patient received 5000 units intravenous heparin as well as intra-arterial verapamil. FINDINGS: Left main: This is a short-sized vessel bifurcating into left circumflex and left anterior descending artery. Left main coronary artery is without any significant obstructive disease. Left anterior descending artery: This is a large-size vessel reaching toward the apex, giving rise to 2 diagonal branches. The proximal segment of the LAD has eccentric calcified 60% to 70% plaque right after the take off of the diagonal branch. There is another plaque of 60% to 70%. The rest of the vessel has diffuse intimal disease without any high-grade stenosis. The stented segment is patent. Left circumflex: This is a nondominant vessel, giving rise to 3 obtuse marginal branches. The first one is large in caliber and has a 70% to 80% plaque proximally. The rest of the vessel has no high-grade stenosis. Right coronary artery: This vessel is totally occluded in the mid segment with no antegrade flow. Collateral: There is collateral from the left coronary system toward the right PDA. Left ventriculogram: Left ventriculogram was performed in 30-degree SHARPE view and revealed a normal size with minimal hypokinesis of the inferior mccarthy. Ejection fraction is 50%. There was no significant mitral regurgitation. HEMODYNAMICS: There was no gradient across the aortic valve. The left ventricular end-diastolic pressure was 26 mmHg. CONCLUSION: 1. Chronically occluded right coronary artery with collateral from the left system. 2. Progression of disease in the proximal and the mid left anterior descending. 3. Significant disease in the first obtuse marginal branch. RECOMMENDATIONS: In view of the findings and the anatomy as well as the history of diabetes. I have recommended to proceed with evaluation for coronary artery bypass grafting. Those findings and recommendations were discussed with the patient and she was in full understanding and agreement.
--- NOTE | 2016-11-25 22:12 | LTR ---
November 25, 2016 RE: AlyssaNancy Dear Dr. Gonzales: I had the pleasure to perform cardiac catheterization on Mrs. Shah at [facility] on 25 of November and a fully copy of the procedure note will be forwarded to you. In brief, she was found to have a chronically occluded right coronary artery with progression of disease in the LAD and the obtuse marginal branch and based on those findings, I have recommended proceeding with evaluation for possible coronary artery bypass grafting. I will keep you updated on her progress. Thank you again for allowing me to participate in this pleasant patient's care. Please feel free to call for any questions. Sincerely yours, KWASI RANDOLPH MD
[2016-11-25 22:15] LABS: Glucose,Whole Blood 368 mg/dL (75-99)
[2016-11-25 22:15] LABS: Glucose,Whole Blood 367 mg/dL (75-99)
[2016-11-25] MEDS ORDERED: INSULIN REGULAR BOLUS (FROM DRIP BAG) IV ONE (23:35)
[2016-11-25] MEDS ORDERED: INSULIN LISPRO (humaLOG) 300 UNIT/3 ML VIAL SQ ONE (23:37)
[2016-11-26 01:43] LABS: Glucose,Whole Blood 359 mg/dL (75-99)
[2016-11-26] MEDS: INSULIN REGULAR 100 UNIT in SODIUM CHLORIDE 0.9% 100 ML IV SCH ×2 (01:46→13:06)
[2016-11-26] MEDS: methylPREDNISolone SOD SUCCI 40 MG/ML 1 ML VIAL IV SCH ×4 (01:47→21:00)
[2016-11-26] MEDS: NITROGLYCERIN OINT 1 INCH/GM PACKET TOPICAL SCH ×5 (01:48→21:01)
[2016-11-26 02:21] LABS: Glucose,Whole Blood 383 mg/dL (75-99)
[2016-11-26 03:23] LABS: Glucose,Whole Blood 298 mg/dL (75-99)
[2016-11-26 03:42] LABS: Glucose,Whole Blood 249 mg/dL (75-99)
[2016-11-26 05:49] LABS: Basophils % (A) 0 %; CH 30.5; CHCM 32.4; Eosinophils % (A) 0 %; HCT 34.6 % (34.0-46.0); HDW 2.56; Luc # (Auto) 0.18; Luc % (Auto) 1; Lymphocytes # (A) 1.3 k/uL (1.0-4.8); Lymphocytes % (A) 8 %; MCH 30.2 pg (25.0-35.0); MCHC 31.9 g/dL (31.0-37.0); MCV 94.7 fL (80.0-100.0); Mean Platelet Volume 6.7; Monocytes # (A) 0.8 k/uL (0-1.0); Monocytes % (A) 5 %; Neutrophils % (A) 86 %; RBC 3.66 m/uL (3.80-5.40); RDW 13.4 % (11.5-15.5); WBC 16.3 k/uL (3.8-10.6); WBC (Perox) 17.25
[2016-11-26 05:49] LABS: Glucose,Whole Blood 179 mg/dL (75-99)
[2016-11-26 05:57] LABS: Partial Thromboplastin Time 30.3 sec (22.0-30.0); Prothrombin Time 10.6 sec (9.0-12.0)
[2016-11-26 06:00] LABS: ALT 42 U/L (9-52); AST 41 U/L (14-36); Alkaline Phosphatase 51 U/L (38-126); Anion Gap 8 mmol/L; Blood Urea Nitrogen 28 mg/dL (7-17); Carbon Dioxide 24 mmol/L (22-30); Chloride 108 mmol/L (98-107); Glucose 162 mg/dL (74-99); Magnesium 2.2 mg/dL (1.6-2.3); Non-African American GFR(MDRD) >60 (>60 ml/min/1.73 sqM); Potassium 4.3 mmol/L (3.5-5.1); Sodium 140 mmol/L (137-145); Total Bilirubin 0.7 mg/dL (0.2-1.3); Total Protein 6.2 g/dL (6.3-8.2)
[2016-11-26 06:29] LABS: Hepatitis B Surface Ag Index 0.05
[2016-11-26 06:35] LABS: Hepatitis B Core IgM Index 0.02
[2016-11-26] MEDS: INSULIN LISPRO (humaLOG) 300 UNIT/3 ML VIAL SQ SCH ×4 (06:42→17:39)
[2016-11-26 06:46] LABS: Hepatitis C Virus IgG Index 0.01
[2016-11-26 06:50] LABS: Hepatitis C Virus IgG Ab Negative (Negative)
[2016-11-26] MEDS: IPRATROPIUM-ALBUTEROL 3 ML NEB INHALATION SCH ×4 (07:02→21:03)
[2016-11-26] MEDS: SYMBICORT 160-4.5 MCG INHALER INHALATION SCH ×2 (07:02→21:03)
[2016-11-26 07:26] LABS: Glucose,Whole Blood 142 mg/dL (75-99)
[2016-11-26] MEDS: MUPIROCIN 2% OINT 22 GM TUBE NASAL SCH ×3 (07:41→20:59)
[2016-11-26] MEDS: LISINOPRIL 10 MG TAB PO SCH ×2 (08:17→20:59)
[2016-11-26] MEDS: METOPROLOL SUCCINATE (ER) 50 MG TAB.ER.24H PO SCH (08:17)
[2016-11-26] MEDS: NYSTATIN 100,000 UNIT/ML SUSP 500,000 UNIT/5 ML CUP PO SCH ×4 (08:18→21:00)
--- NOTE | 2016-11-26 08:40 | P.GSCN ---
<Maddy Hernandez - Last Filed: 11/26/16 08:24> History of Present Illness Consult date: 11/26/16 Reason for Consult: Coronary artery disease, non-STEMI, need for surgical revascularization. Requesting physician: Ishaan Sarabia History of present illness: This 66-year-old female with a past medical history of asthma, diabetes, hypertension, hyperlipidemia, myocardial infarction 2 with stent placement presented to [facility] emergency room with complaints of chest discomfort and increasing shortness of breath. She became alarmed when the pain started radiating to her back and her left arm, she was diaphoretic, and she stated that it felt like her previous heart attacks. She was diagnosed with a non-STEMI and was taken to the Nutrition Consultant by Dr. Sarabia, which demonstrated a chronically occluded right coronary artery with collateral from the left system, progression of disease in the proximal and mid left anterior descending artery, and significant disease in the first obtuse marginal branch. The findings were discussed with the patient, and cardiothoracic surgery was consulted for the possibility of surgical revascularization. Review of Systems 14 point review of systems was completed and was negative except as noted. - Cardiovascular Reports as per HPI, Reports edema - Respiratory Reports as per HPI Past Medical History Past Medical History: Asthma, Chest Pain / Angina, COPD, Diabetes Mellitus, Hyperlipidemia, Hypertension, Myocardial Infarction ([place]), Syncope Additional Past Medical History / Comment(s): NEBULIZER AT HOME, Last Myocardial Infarction Date:: 2010 History of Any Multi-Drug Resistant Organisms: None Reported Past Surgical History: Cholecystectomy, Heart Catheterization With Stent Additional Past Surgical History / Comment(s): 1st stent in 2010, 3 more stents placed -about 2014 Past Anesthesia/Blood Transfusion Reactions: No Reported Reaction Additional Past Anesthesia/Blood Transfusion Reaction / Comm: CLAUSTERPHOBIA Date of Last Stent Placement:: 2014 Past Psychological History: No Psychological Hx Reported Smoking Status: Former smoker Past Alcohol Use History: None Reported Additional Past Alcohol Use History / Comment(s): STARTED SMOKING AT AGE 14- WORKED UP TO 3 PPD, QUIT 2010 Past Drug Use History: None Reported - Past Family History Father Family Medical History: Myocardial Infarction ([place]) Additional Family Medical History / Comment(s): STENT, OPEN HEART SURGERY Mother Additional Family Medical History / Comment(s): DEPRESSION Medications and Allergies Home Medications Medication Instructions Recorded Confirmed Type Aspirin 81 mg PO DAILY 12/17/14 11/24/16 History Fluticasone Propionate [Flonase 1 spray EA NOSTRIL DAILY PRN 12/17/14 11/24/16 History Allergy Relief] Furosemide [Lasix] 20 mg PO DAILY PRN 12/17/14 11/24/16 History Insulin NPL/Insulin Lispro 70 unit SQ AC-SUPPER 12/17/14 11/24/16 History [humaLOG Mix 75-25 Kwikpen] Lisinopril [Prinivil] 10 mg PO DAILY 12/17/14 11/24/16 History Potassium Chloride [Klor-Con 20] 20 meq PO DAILY PRN 12/17/14 11/24/16 History metFORMIN HCL [Glucophage] 850 mg PO AC-SUPPER 12/17/14 11/24/16 History Albuterol Inhaler [Ventolin Hfa 1 - 2 puff INHALATION RT-Q6H PRN 04/18/15 History Inhaler] Budesonide-Formot 160-4.5 Mcg 2 puff INHALATION RT-BID 04/18/15 11/24/16 History [Symbicort 160-4.5 Mcg Inhaler] Hydrocodone/Acetaminophen 1 tab PO BID PRN 04/18/15 11/24/16 History [Hydrocodon-Acetaminophen 5-325] Insulin NPL/Insulin Lispro 60 unit SQ DAILY 04/18/15 11/24/16 History [humaLOG Mix 75-25 Kwikpen] Tiotropium [place] [Spiriva] 18 mcg IH RT-DAILY 04/18/15 11/24/16 History metFORMIN HCL [Glucophage] 1,700 mg PO AC-BRKFST 04/18/15 11/24/16 History methylPREDNISolone Dose Pack See Taper PO DAILY 04/18/15 11/24/16 History [Medrol Dose Pack] Atorvastatin [Lipitor] 80 mg PO HS 11/24/16 11/24/16 History Insulin Glargine,Hum.rec.anlog 60 unit SQ HS 11/24/16 11/24/16 History [Lantus Solostar] Ipratropium-Albuterol Nebulize 3 ml INHALATION RT-QID PRN 11/24/16 11/24/16 History [Duoneb 0.5 mg-3 mg/3 ml Soln] Ketoconazole 2% Cream [Nizoral 2%] 1 applic TOPICAL DAILY PRN 11/24/16 11/24/16 History Metoprolol Succinate (ER) [Toprol 50 mg PO DAILY 11/24/16 11/24/16 History Xl] Nystatin 100,000 Unit/ml Susp 5 ml PO QID 11/24/16 11/24/16 History [Mycostatin Oral Susp] Allergies Allergy/AdvReac Type Severity Reaction Status Date / Time codeine Allergy Nausea & Verified 11/24/16 15:15 Vomiting Surgical - Exam Vital Signs Temp Pulse Resp BP Pulse Ox 98.7 F 77 24 154/65 94 L 11/24/16 14:45 11/24/16 14:45 11/24/16 14:45 11/24/16 14:45 11/24/16 14:45 - General well developed, well nourished, no distress, obese - Eyes PERRL, normal ocular movement - ENT no hearing loss - Neck no masses, no bruits, trachea midline thyroid nodule: absent, lymphadenopathy: absent, carotid bruit: absent - Respiratory Lungs sounds diminished bilaterally. Respirations even, nonlabored. Currently on 2 L nasal cannula. normal expansion, normal respiratory effort - Cardiovascular S1, S2 present. No murmurs rubs or gallops. Regular rate, rhythm, normal sinus rhythm on telemetry. Trace bilateral lower extremity edema present. - Abdomen Abdomen: soft, non tender, bowel sounds - Genitourinary Deferred - Rectum Deferred - Integumentary no rash, no abnormal pigmentation - Neurologic normal coordination, normal sensation - Musculoskeletal normal gait - Psychiatric oriented to time, oriented to person, oriented to place, speech is normal, memory intact Results - Labs 11/26/16 05:29 11/26/16 05:29 Abnormal Lab Results - Last 24 Hours (Table) 11/25/16 11/25/16 11/25/16 Range/Units 08:31 11:47 15:20 WBC (3.8-10.6) k/uL RBC (3.80-5.40) m/uL Hgb (11.4-16.0) gm/dL Neutrophils # (1.3-7.7) k/uL APTT (22.0-30.0) sec Chloride (98-107) mmol/L BUN (7-17) mg/dL Glucose (74-99) mg/dL POC Glucose (mg/dL) 223 H 201 H 287 H (75-99) mg/dL AST (14-36) U/L Total Protein (6.3-8.2) g/dL Albumin (3.5-5.0) g/dL TSH (0.465-4.680) mIU/L 11/25/16 11/25/16 11/25/16 Range/Units 17:13 21:40 21:41 WBC (3.8-10.6) k/uL RBC (3.80-5.40) m/uL Hgb (11.4-16.0) gm/dL Neutrophils # (1.3-7.7) k/uL APTT (22.0-30.0) sec Chloride (98-107) mmol/L BUN (7-17) mg/dL Glucose (74-99) mg/dL POC Glucose (mg/dL) 338 H 368 H 367 H (75-99) mg/dL AST (14-36) U/L Total Protein (6.3-8.2) g/dL Albumin (3.5-5.0) g/dL TSH (0.465-4.680) mIU/L 11/25/16 11/26/16 11/26/16 Range/Units 21:45 01:41 02:20 WBC (3.8-10.6) k/uL RBC (3.80-5.40) m/uL Hgb (11.4-16.0) gm/dL Neutrophils # (1.3-7.7) k/uL APTT 21.4 L (22.0-30.0) sec Chloride (98-107) mmol/L BUN (7-17) mg/dL Glucose (74-99) mg/dL POC Glucose (mg/dL) 359 H 383 H (75-99) mg/dL AST (14-36) U/L Total Protein (6.3-8.2) g/dL Albumin (3.5-5.0) g/dL TSH (0.465-4.680) mIU/L 11/26/16 11/26/16 11/26/16 Range/Units 03:03 03:40 05:29 WBC 16.3 H (3.8-10.6) k/uL RBC 3.66 L (3.80-5.40) m/uL Hgb 11.0 L (11.4-16.0) gm/dL Neutrophils # 14.0 H (1.3-7.7) k/uL APTT (22.0-30.0) sec Chloride (98-107) mmol/L BUN (7-17) mg/dL Glucose (74-99) mg/dL POC Glucose (mg/dL) 298 H 249 H (75-99) mg/dL AST (14-36) U/L Total Protein (6.3-8.2) g/dL Albumin (3.5-5.0) g/dL TSH (0.465-4.680) mIU/L 11/26/16 11/26/16 11/26/16 Range/Units 05:29 05:29 05:47 WBC (3.8-10.6) k/uL RBC (3.80-5.40) m/uL Hgb (11.4-16.0) gm/dL Neutrophils # (1.3-7.7) k/uL APTT 30.3 H (22.0-30.0) sec Chloride 108 H (98-107) mmol/L BUN 28 H (7-17) mg/dL Glucose 162 H (74-99) mg/dL POC Glucose (mg/dL) 179 H (75-99) mg/dL AST 41 H (14-36) U/L Total Protein 6.2 L (6.3-8.2) g/dL Albumin 3.3 L (3.5-5.0) g/dL TSH 0.216 L (0.465-4.680) mIU/L 11/26/16 Range/Units 07:24 WBC (3.8-10.6) k/uL RBC (3.80-5.40) m/uL Hgb (11.4-16.0) gm/dL Neutrophils # (1.3-7.7) k/uL APTT (22.0-30.0) sec Chloride (98-107) mmol/L BUN (7-17) mg/dL Glucose (74-99) mg/dL POC Glucose (mg/dL) 142 H (75-99) mg/dL AST (14-36) U/L Total Protein (6.3-8.2) g/dL Albumin (3.5-5.0) g/dL TSH (0.465-4.680) mIU/L Diabetes panel 11/26/16 Range/Units 05:29 Sodium 140 (137-145) mmol/L Potassium 4.3 (3.5-5.1) mmol/L Chloride 108 H (98-107) mmol/L Carbon Dioxide 24 (22-30) mmol/L BUN 28 H (7-17) mg/dL Creatinine 0.70 (0.52-1.04) mg/dL Glucose 162 H (74-99) mg/dL Calcium 9.0 (8.4-10.2) mg/dL AST 41 H (14-36) U/L ALT 42 (9-52) U/L Alkaline Phosphatase 51 (38-126) U/L Total Protein 6.2 L (6.3-8.2) g/dL Albumin 3.3 L (3.5-5.0) g/dL Thyroid panel 11/26/16 Range/Units 05:29 TSH 0.216 L (0.465-4.680) mIU/L Calcium panel 11/26/16 Range/Units 05:29 Calcium 9.0 (8.4-10.2) mg/dL Albumin 3.3 L (3.5-5.0) g/dL Pituitary panel 11/26/16 Range/Units 05:29 Sodium 140 (137-145) mmol/L Potassium 4.3 (3.5-5.1) mmol/L Chloride 108 H (98-107) mmol/L Carbon Dioxide 24 (22-30) mmol/L BUN 28 H (7-17) mg/dL Creatinine 0.70 (0.52-1.04) mg/dL Glucose 162 H (74-99) mg/dL Calcium 9.0 (8.4-10.2) mg/dL TSH 0.216 L (0.465-4.680) mIU/L Adrenal panel 11/26/16 Range/Units 05:29 Sodium 140 (137-145) mmol/L Potassium 4.3 (3.5-5.1) mmol/L Chloride 108 H (98-107) mmol/L Carbon Dioxide 24 (22-30) mmol/L BUN 28 H (7-17) mg/dL Creatinine 0.70 (0.52-1.04) mg/dL Glucose 162 H (74-99) mg/dL Calcium 9.0 (8.4-10.2) mg/dL Total Bilirubin 0.7 (0.2-1.3) mg/dL AST 41 H (14-36) U/L ALT 42 (9-52) U/L Alkaline Phosphatase 51 (38-126) U/L Total Protein 6.2 L (6.3-8.2) g/dL Albumin 3.3 L (3.5-5.0) g/dL - Imaging Chest x-ray: report reviewed, image reviewed US - kidney/bladder: image reviewed Additional studies: Echocardiogram, cardiac catheterization results reviewed Assessment and Plan (1) Coronary arteriosclerosis in patient with history of previous myocardial infarction Status: Acute (2) Diabetes mellitus Status: Acute (3) Hypertension Status: Acute (4) Hyperlipidemia Status: Acute (5) COPD exacerbation Status: Acute (6) NSTEMI (non-ST elevated myocardial infarction) Status: Acute Plan: 1. Restart aspirin. Continue Lipitor, lisinopril, Lopressor, heparin. 2. Preoperative testing ordered, pending. 3. Will discuss diagnostics with Dr. Desouza in anticipation of the possible need for surgical revascularization. 4. Will need to wait for Effient metabolism. Patient received dose on 11-25-16. 5. Preoperative teaching initiated with patient. All questions answered. 6. Encourage incentive spirometry use. 7. Encourage increased activity. 8. GI/DVT prophylaxis. 9. More recommendations as patient progresses. Thank you Dr. Sarabia for this consult. We look forward to assisting in the care of your patient. Time with Patient: Greater than 30 <Allan Desouza - Last Filed: 11/26/16 09:28> Surgical - Exam Vital Signs Temp Pulse Resp BP Pulse Ox 98.7 F 77 24 154/65 94 L 11/24/16 14:45 11/24/16 14:45 11/24/16 14:45 11/24/16 14:45 11/24/16 14:45 Results - Labs 11/26/16 05:29 11/26/16 05:29 Abnormal Lab Results - Last 24 Hours (Table) 11/25/16 11/25/16 11/25/16 Range/Units 11:47 15:20 17:13 WBC (3.8-10.6) k/uL RBC (3.80-5.40) m/uL Hgb (11.4-16.0) gm/dL Neutrophils # (1.3-7.7) k/uL APTT (22.0-30.0) sec Chloride (98-107) mmol/L BUN (7-17) mg/dL Glucose (74-99) mg/dL POC Glucose (mg/dL) 201 H 287 H 338 H (75-99) mg/dL AST (14-36) U/L Total Protein (6.3-8.2) g/dL Albumin (3.5-5.0) g/dL TSH (0.465-4.680) mIU/L 11/25/16 11/25/16 11/25/16 Range/Units 21:40 21:41 21:45 WBC (3.8-10.6) k/uL RBC (3.80-5.40) m/uL Hgb (11.4-16.0) gm/dL Neutrophils # (1.3-7.7) k/uL APTT 21.4 L (22.0-30.0) sec Chloride (98-107) mmol/L BUN (7-17) mg/dL Glucose (74-99) mg/dL POC Glucose (mg/dL) 368 H 367 H (75-99) mg/dL AST (14-36) U/L Total Protein (6.3-8.2) g/dL Albumin (3.5-5.0) g/dL TSH (0.465-4.680) mIU/L 11/26/16 11/26/16 11/26/16 Range/Units 01:41 02:20 03:03 WBC (3.8-10.6) k/uL RBC (3.80-5.40) m/uL Hgb (11.4-16.0) gm/dL Neutrophils # (1.3-7.7) k/uL APTT (22.0-30.0) sec Chloride (98-107) mmol/L BUN (7-17) mg/dL Glucose (74-99) mg/dL POC Glucose (mg/dL) 359 H 383 H 298 H (75-99) mg/dL AST (14-36) U/L Total Protein (6.3-8.2) g/dL Albumin (3.5-5.0) g/dL TSH (0.465-4.680) mIU/L 11/26/16 11/26/16 11/26/16 Range/Units 03:40 05:29 05:29 WBC 16.3 H (3.8-10.6) k/uL RBC 3.66 L (3.80-5.40) m/uL Hgb 11.0 L (11.4-16.0) gm/dL Neutrophils # 14.0 H (1.3-7.7) k/uL APTT (22.0-30.0) sec Chloride 108 H (98-107) mmol/L BUN 28 H (7-17) mg/dL Glucose 162 H (74-99) mg/dL POC Glucose (mg/dL) 249 H (75-99) mg/dL AST 41 H (14-36) U/L Total Protein 6.2 L (6.3-8.2) g/dL Albumin 3.3 L (3.5-5.0) g/dL TSH 0.216 L (0.465-4.680) mIU/L 11/26/16 11/26/16 11/26/16 Range/Units 05:29 05:47 07:24 WBC (3.8-10.6) k/uL RBC (3.80-5.40) m/uL Hgb (11.4-16.0) gm/dL Neutrophils # (1.3-7.7) k/uL APTT 30.3 H (22.0-30.0) sec Chloride (98-107) mmol/L BUN (7-17) mg/dL Glucose (74-99) mg/dL POC Glucose (mg/dL) 179 H 142 H (75-99) mg/dL AST (14-36) U/L Total Protein (6.3-8.2) g/dL Albumin (3.5-5.0) g/dL TSH (0.465-4.680) mIU/L Diabetes panel 11/26/16 Range/Units 05:29 Sodium 140 (137-145) mmol/L Potassium 4.3 (3.5-5.1) mmol/L Chloride 108 H (98-107) mmol/L Carbon Dioxide 24 (22-30) mmol/L BUN 28 H (7-17) mg/dL Creatinine 0.70 (0.52-1.04) mg/dL Glucose 162 H (74-99) mg/dL Calcium 9.0 (8.4-10.2) mg/dL AST 41 H (14-36) U/L ALT 42 (9-52) U/L Alkaline Phosphatase 51 (38-126) U/L Total Protein 6.2 L (6.3-8.2) g/dL Albumin 3.3 L (3.5-5.0) g/dL Thyroid panel 11/26/16 Range/Units 05:29 TSH 0.216 L (0.465-4.680) mIU/L Calcium panel 11/26/16 Range/Units 05:29 Calcium 9.0 (8.4-10.2) mg/dL Albumin 3.3 L (3.5-5.0) g/dL Pituitary panel 11/26/16 Range/Units 05:29 Sodium 140 (137-145) mmol/L Potassium 4.3 (3.5-5.1) mmol/L Chloride 108 H (98-107) mmol/L Carbon Dioxide 24 (22-30) mmol/L BUN 28 H (7-17) mg/dL Creatinine 0.70 (0.52-1.04) mg/dL Glucose 162 H (74-99) mg/dL Calcium 9.0 (8.4-10.2) mg/dL TSH 0.216 L (0.465-4.680) mIU/L Adrenal panel 11/26/16 Range/Units 05:29 Sodium 140 (137-145) mmol/L Potassium 4.3 (3.5-5.1) mmol/L Chloride 108 H (98-107) mmol/L Carbon Dioxide 24 (22-30) mmol/L BUN 28 H (7-17) mg/dL Creatinine 0.70 (0.52-1.04) mg/dL Glucose 162 H (74-99) mg/dL Calcium 9.0 (8.4-10.2) mg/dL Total Bilirubin 0.7 (0.2-1.3) mg/dL AST 41 H (14-36) U/L ALT 42 (9-52) U/L Alkaline Phosphatase 51 (38-126) U/L Total Protein 6.2 L (6.3-8.2) g/dL Albumin 3.3 L (3.5-5.0) g/dL Assessment and Plan Plan: Patient is seen and examined chart is reviewed and cardiac cath films and echocardiogram were also reviewed. Primary medical problems include morbid obesity, diabetes mellitus, COPD, coronary artery disease, unstable angina, hypertension, hyperlipidemia. Cardiac cath reveals 3 vessel coronary artery disease with occlusion of right coronary stent and in-stent restenosis of the LAD stent. Echocardiography reveals preserved left ventricular function, significant LVH and no significant valvular heart disease. Plan is for coronary artery bypass grafting with planned internal mammary artery graft to LAD and saphenous vein grafts to the first obtuse marginal and posterior descending coronary arteries. Surgery will be scheduled at the next available time which likely will be Sunday.
[2016-11-26] MEDS ORDERED: INSULIN NPL/INSULIN LISPRO 100 UNIT/ML 10 ML VIAL (Humalog 75/25) SQ SCH (09:00)
[2016-11-26 09:36] LABS: Glucose,Whole Blood 316 mg/dL (75-99)
--- NOTE | 2016-11-26 11:08 | US ---
EXAMINATION TYPE: US carotid duplex BILAT DATE OF EXAM: 11/26/2016 10:28 AM COMPARISON: NONE CLINICAL HISTORY: PreOpCardiac Surgery. EXAM MEASUREMENTS: RIGHT: Peak Systolic Velocity (PSV) cm/sec ----- Right CCA: 70.2 ----- Right ICA: 102.1 ----- Right ECA: 129.1 ICA/CCA ratio: 1.5 RIGHT: End Diastole cm/sec ----- Right CCA: 2.1 ----- Right ICA: 19.3 ----- Right ECA: 0.0 LEFT: Peak Systolic Velocity (PSV) cm/sec ----- Left CCA: 60.3 ----- Left ICA: 70.2 ----- Left ECA: 130.7 ICA/CCA ratio: 1.2 LEFT: End Diastole cm/sec ----- Left CCA: 6.5 ----- Left ICA: 14.2 ----- Left ECA: 0.0 VERTEBRALS (direction of flow): Right Vertebral: Antegrade Left Vertebral: Antegrade No significant stenosis seen, exam preformed portably on morbidly obese patient with a very short nec k making imaging technically difficult. IMPRESSION: 1. I DO NOT SEE EVIDENCE OF A HEMODYNAMICALLY SIGNIFICANT STENOSIS IN EITHER COMMON OR INTERNAL CAROT ID ARTERY. 2. MILDLY ELEVATED FLOW VELOCITIES BOTH ECAS. Criteria for Assigning % of Stenosis / Diameter reduction (Estimation based on the indirect measurements of the internal carotid artery velocities (ICA PSV). 1. Normal (no stenosis)=ICA PSV < 125 cm/s: ratio < 2.0: ICA EDV<40 cm/s. 2. Less than 50% stenosis=ICA PSV < 125 cm/s: ratio < 2.0: ICA EDV<40 cm/s. 3. 50 to 69% stenosis=ICA PSV of 125 to 230 cm/s: ration 2.0 ? 4.0: ICA EDV 40-100 cm/s. 4. Greater than 70% stenosis to near occlusion= ICA PSV > 230 cm/s: ratio > 4.0: ICA EDV > 100 cm/s. 5. Near occlusion= ICA PSV velocities may be low or undetectable: variable ratio and ICA EDV. 6. Total occlusion=unable to detect flow.
[2016-11-26 11:30] LABS: Glucose,Whole Blood 251 mg/dL (75-99)
--- NOTE | 2016-11-26 12:39 | P.PN ---
Subjective Progress note dated 11/26/2016 This is a 66-year-old female who sees Dr. Gonzales. She has a history of hypertension hyperlipidemia diabetes CAD previous stent placements and morbid obesity. She also suffers some COPD. For this she sees my partner. She is maintained on Symbicort Spiriva and albuterol. She presented to the hospital with complaints of increasing shortness of breath. She has some back discomfort radiating is radiating down her arms. She was found to have a non- ST segment elevation myocardial infarction. She was to have a catheterization yesterday. Sitting at the bedside. Seem relatively comfortable. Objective - Vital Signs Vital signs: Vital Signs Temp 97.4 F L 11/26/16 08:00 Pulse 80 11/26/16 07:17 Resp 16 11/26/16 08:00 BP 138/63 11/26/16 08:00 Pulse Ox 97 11/26/16 08:00 Intake & Output 11/25/16 11/26/16 11/26/16 18:59 06:59 18:59 Intake Total 880 411.595 395.183 Balance 880 411.595 395.183 Weight 109.6 kg 111.3 kg Intake: IV 630 20 Heparin Sodium,Porcine/ 100 20 D5w Pmx 25,000 unit In Dextrose/Water 1 500ml. bag @ 9.3 UNITS/KG/HR 19. 91 mls/hr IV .Q24H KAREN Rx #:[id number] Insulin Regular 100 unit 30 In Sodium Chloride 0.9% 100 ml @ Titrate IV .Q0M KAREN Rx#:[id number] Intake, IV Titration 200 271.595 35.183 Amount Heparin Sodium,Porcine/ 218.312 D5w Pmx 25,000 unit In Dextrose/Water 1 500ml. bag @ 9.12 UNITS/KG/HR 19 .99 mls/hr IV .Q24H KAREN Rx#:[id number] Insulin Regular 100 unit 53.283 35.183 In Sodium Chloride 0.9% 100 ml @ Titrate IV .Q0M KAREN Rx#:[id number] Sodium Chloride 0.9% 1, 200 000 ml In Empty Bag 1 bag @ 1 ML/KG/HR 109.6 mls/ hr IV .Q9H8M ONE Rx#: [id number] Oral 50 120 360 Other: Voiding Method Toilet Toilet # Voids 3 1 0 - Exam No acute distress, oriented 3. HEENT examination is grossly unremarkable. Mucous membranes are moist. No oral lesions. Neck supple. Full range of motion. Cardiovascular examination reveals regular rhythm rate. S1-S2 normal. No S3- S4 or murmur. Lungs are clear breath sounds equal. Abdomen soft bowel sounds are heard. Extremities are intact. - Labs CBC & Chem 7: 11/26/16 05:29 11/26/16 05:29 Labs: Abnormal Lab Results - Last 24 Hours (Table) 11/25/16 11/25/16 11/25/16 Range/Units 15:20 17:13 21:40 WBC (3.8-10.6) k/uL RBC (3.80-5.40) m/uL Hgb (11.4-16.0) gm/dL Neutrophils # (1.3-7.7) k/uL APTT (22.0-30.0) sec Chloride (98-107) mmol/L BUN (7-17) mg/dL Glucose (74-99) mg/dL POC Glucose (mg/dL) 287 H 338 H 368 H (75-99) mg/dL AST (14-36) U/L Total Protein (6.3-8.2) g/dL Albumin (3.5-5.0) g/dL TSH (0.465-4.680) mIU/L 11/25/16 11/25/16 11/26/16 Range/Units 21:41 21:45 01:41 WBC (3.8-10.6) k/uL RBC (3.80-5.40) m/uL Hgb (11.4-16.0) gm/dL Neutrophils # (1.3-7.7) k/uL APTT 21.4 L (22.0-30.0) sec Chloride (98-107) mmol/L BUN (7-17) mg/dL Glucose (74-99) mg/dL POC Glucose (mg/dL) 367 H 359 H (75-99) mg/dL AST (14-36) U/L Total Protein (6.3-8.2) g/dL Albumin (3.5-5.0) g/dL TSH (0.465-4.680) mIU/L 11/26/16 11/26/16 11/26/16 Range/Units 02:20 03:03 03:40 WBC (3.8-10.6) k/uL RBC (3.80-5.40) m/uL Hgb (11.4-16.0) gm/dL Neutrophils # (1.3-7.7) k/uL APTT (22.0-30.0) sec Chloride (98-107) mmol/L BUN (7-17) mg/dL Glucose (74-99) mg/dL POC Glucose (mg/dL) 383 H 298 H 249 H (75-99) mg/dL AST (14-36) U/L Total Protein (6.3-8.2) g/dL Albumin (3.5-5.0) g/dL TSH (0.465-4.680) mIU/L 11/26/16 11/26/16 11/26/16 Range/Units 05:29 05:29 05:29 WBC 16.3 H (3.8-10.6) k/uL RBC 3.66 L (3.80-5.40) m/uL Hgb 11.0 L (11.4-16.0) gm/dL Neutrophils # 14.0 H (1.3-7.7) k/uL APTT 30.3 H (22.0-30.0) sec Chloride 108 H (98-107) mmol/L BUN 28 H (7-17) mg/dL Glucose 162 H (74-99) mg/dL POC Glucose (mg/dL) (75-99) mg/dL AST 41 H (14-36) U/L Total Protein 6.2 L (6.3-8.2) g/dL Albumin 3.3 L (3.5-5.0) g/dL TSH 0.216 L (0.465-4.680) mIU/L 11/26/16 11/26/16 11/26/16 Range/Units 05:47 07:24 09:34 WBC (3.8-10.6) k/uL RBC (3.80-5.40) m/uL Hgb (11.4-16.0) gm/dL Neutrophils # (1.3-7.7) k/uL APTT (22.0-30.0) sec Chloride (98-107) mmol/L BUN (7-17) mg/dL Glucose (74-99) mg/dL POC Glucose (mg/dL) 179 H 142 H 316 H (75-99) mg/dL AST (14-36) U/L Total Protein (6.3-8.2) g/dL Albumin (3.5-5.0) g/dL TSH (0.465-4.680) mIU/L 11/26/16 Range/Units 11:29 WBC (3.8-10.6) k/uL RBC (3.80-5.40) m/uL Hgb (11.4-16.0) gm/dL Neutrophils # (1.3-7.7) k/uL APTT (22.0-30.0) sec Chloride (98-107) mmol/L BUN (7-17) mg/dL Glucose (74-99) mg/dL POC Glucose (mg/dL) 251 H (75-99) mg/dL AST (14-36) U/L Total Protein (6.3-8.2) g/dL Albumin (3.5-5.0) g/dL TSH (0.465-4.680) mIU/L Microbiology - Last 24 Hours (Table) 11/26/16 01:40 Nasal Screen MRSA/MSSA ([facility]) - Preliminary Nasal Swab Assessment and Plan (1) COPD (chronic obstructive pulmonary disease) Status: Acute (2) Hyperlipidemia Status: Acute (3) Hypertension Status: Acute (4) NSTEMI (non-ST elevated myocardial infarction) Status: Acute (5) Chest pain Status: Acute (6) Unstable angina pectoris Status: Acute Plan: Plan dated 11/26/2016 The patient apparently being evaluated by Dr. Desouza for possible bypass grafting. She has significant coronary disease on her catheterization. I've asked for a bedside spirometry. Additional recommendations suggestions are forthcoming. We'll continue to follow. Time with Patient: Less than 30
--- NOTE | 2016-11-26 13:52 | PN ---
Mrs. Shah is a 66-year-old female with known history of coronary artery disease, who presented with non-ST segment elevation myocardial infarction, underwent cardiac catheterization yesterday, was found to have significant triple-vessel disease. She is scheduled to undergo surgical intervention on Sunday. She had some mild pain yesterday, she is asymptomatic at this time. Her breathing is stable. She denies any dizziness, palpitation. She denies any nausea. She continues to be at this time on aspirin, Lipitor 80 mg daily, IV heparin, lisinopril 10 mg twice a day, metoprolol succinate 50 mg daily, nitro paste 1 inch q.6 hours. PHYSICAL EXAMINATION: Blood pressure 138/60 with a heart rate in the 80s. LUNGS: Clear. HEART: Regular rate and rhythm, S1, S2, no S3, with systolic murmur. No diastolic murmur. ABDOMEN: Soft, nontender. EXTREMITIES: No edema, right radial pulse intact. LAB DATA: Hemoglobin of 11, BUN and creatinine 28 and 0.7. IMPRESSION: 1. Non-ST segment elevation myocardial infarction. 2. Severe triple-vessel coronary artery disease. 3. Hypertension. 4. Hyperlipidemia. 5. Diabetes mellitus. 6. Obesity. RECOMMENDATION: Patient will proceed with surgery as scheduled. Will continue on the IV heparin at this time. Depending on her progress, further recommendation will be made.
[2016-11-26 14:14] LABS: Appearance,Urine Clear (Clear); Bilirubin,Urine Negative (Negative); Glucose,Urine (UA) 3+ (Negative); Ketones,Urine Negative (Negative); Leukocyte Esterase,Urine Negative (Negative); Mucus,Urine Rare /hpf; Nitrite,Urine Negative (Negative); PH, Urine 5.5 (5.0-8.0); Particle Count 3861; Protein,Urine 1+ (Negative); Specific Gravity,Urine 1.023 (1.001-1.035); Squamous Epithelial Cell,Urine 4 /hpf (0-4); UA Billing (MACRO vs. MICRO) MICRO; Urobilinogen,Urine <2.0 mg/dL (<2.0); WBC,Urine 2 /hpf (0-5)
[2016-11-26 14:21] LABS: Glucose,Whole Blood 227 mg/dL (75-99)
[2016-11-26] MEDS: HEPARIN SODIUM,PORCINE 5,000 UNIT/ML 1 ML VIAL IV PRN ×2 (14:21→23:26)
--- NOTE | 2016-11-26 15:41 | XR ---
EXAMINATION TYPE: XR chest 1V portable DATE OF EXAM: 11/26/2016 3:17 PM COMPARISON: 11/24/2016 HISTORY: Heart failure TECHNIQUE: Single frontal view of the chest is obtained. FINDINGS: There is no heart failure nor confluent pneumonic infiltrate. There is coarsening of inter stitial markings. There is no pleural effusion. There are chest leads. IMPRESSION: Mild increased interstitial markings without overt heart failure. No change compared to last exam. Mild subsegmental atelectasis in the left midlung is stable.
[2016-11-26] MEDS: HEPARIN SODIUM,PORCINE/D5W PMX 25,000 UNIT in DEXTROSE/WATER 1 500ML.BAG IV SCH (15:47)
--- NOTE | 2016-11-26 16:08 | PN ---
DATE OF SERVICE: 11/26/2016 This 67-year-old woman who was admitted with chest pain, acute non- ST segment elevation myocardial infarction and cardiac catheterization by Dr. Sarabia. The cardiac catheterization showed chronically occluded right RCA with collaterals from the left system, progression of the disease in the proximal and mid LAD and significant disease in the first obtuse marginal branch. Revascularization has been recommended and Dr. Desouaz is evaluating the patient closely also. PAST MEDICAL HISTORY: Reviewed. REVIEW OF SYSTEMS: CARDIOVASCULAR: No angina. RESPIRATORY: As mentioned earlier. GI: No nausea. : No dysuria. NERVOUS SYSTEM: No numbness or weakness. Current medications are reviewed and include: 1. [place] 5 mg b.i.d. p.r.n. 2. Ventolin 2.5 q.2 p.r.n. 3. DuoNeb q.i.d. and p.r.n. 4. Xanax 0.5 q.6 p.r.n. 5. Aspirin 325 mg p.o. daily. 6. Lipitor 80 mg q.h.s. 7. Symbicort 160/4.5, 2 puffs b.i.d. 8. Lotrimin 1 daily. 9. Colace 100 mg p.o. daily. 10. Flonase one spray daily. 11. Lasix 20 mg q.a.m. 12. Heparin 5000 subcu p.o. b.i.d. 13. Humalog. 14. Zestril 10 mg p.o. b.i.d. 15. Solu-Medrol 40 IV q.8. 16. Toprol-XL 50 mg p.o. daily. 17. Bactroban ointment. 18. Nitro-Bid ointment 1 inch q.6. 19. Nitrostat. 20. Mycostatin. 21. K-Dur 20 mEq p.o. daily. PHYSICAL EXAMINATION: Patient is alert and oriented x3. Pulse is 61, blood pressure 115/90, respirations 18, temperature 97.4, pulse 90% on 3 L. HEENT: Conjunctivae normal. Oral mucosa moist. NECK: No jugular venous distention. No carotid bruit. No lymph node enlargement. CARDIOVASCULAR: S1 and S2, muffled. RESPIRATORY: Breath sounds diminished at the bases. Breathing efforts are increased. A few bilateral scattered rhonchi and crackles. ABDOMEN: Soft, obese, nontender. No mass palpable. LEGS: No edema, no swelling. NERVOUS SYSTEM: Higher function as mentioned. Moves all four limbs. No focal motor deficits. LYMPHATIC: No lymphadenopathy in the neck, axillae or groin. SKIN: No ulcer, rash or bleeding. LABS: WBC 16.3, hemoglobin is 11 and total protein 6.2. TSH 0.126, FT4 is 27, hepatitis panel is negative. ASSESSMENT: 1. Chest pain with acute non-ST segment elevation myocardial infarction, troponin 0.867, status post cardiac catheterization with severe coronary artery disease multivessel. 2. Shortness of breath, possibly multifactorial, chronic obstructive pulmonary disease acute exacerbation, asthma and as well as coronary artery disease. 3. Increased WBC, possibly reactive. 4. Anemia, normocytic anemia of chronic disease. 5. Diabetes type 2. 6. Obesity with body mass index of 41.5. 7. Asthma and chronic obstructive pulmonary disease history. 8. History of coronary artery disease and stent. 9. Hypertension, essential. 10. Hyperlipidemia. 11. History of myocardial infarction. 12. History of syncope. 13. Remote history nicotine dependence. 14. FULL CODE. RECOMMENDATIONS AND DISCUSSION: In this 66-year-old woman who presented with multiple complex medical issues, will monitor the patient closely. Continue the current medications and symptomatic treatment. Otherwise, we will monitor the blood sugars closely. Lipitor has been added. Antiplatelet agents. Otherwise, re-vascularization. IV heparin also. Continue with insulin drip and monitor closely. Will also check a hemoglobin A1c also. Otherwise, further recommendations per Vascular Surgery. Further recommendations to follow.
[2016-11-26 16:41] LABS: Glucose,Whole Blood 170 mg/dL (75-99)
[2016-11-26] MEDS: ASPIRIN 325 MG TAB PO SCH (17:39)
[2016-11-26 18:42] LABS: Glucose,Whole Blood 270 mg/dL (75-99)
[2016-11-26 20:51] LABS: Glucose,Whole Blood 210 mg/dL (75-99)
[2016-11-26] MEDS: ATORVASTATIN 80 MG TAB PO SCH (21:00)
[2016-11-26 23:12] LABS: Glucose,Whole Blood 314 mg/dL (75-99)
[2016-11-27 01:15] LABS: Glucose,Whole Blood 259 mg/dL (75-99)
[2016-11-27 03:23] LABS: Glucose,Whole Blood 209 mg/dL (75-99)
[2016-11-27] MEDS: HEPARIN SODIUM,PORCINE/D5W PMX 25,000 UNIT in DEXTROSE/WATER 1 500ML.BAG IV SCH (04:03)
[2016-11-27] MEDS: INSULIN REGULAR 100 UNIT in SODIUM CHLORIDE 0.9% 100 ML IV SCH (04:04)
[2016-11-27 06:30] LABS: Glucose,Whole Blood 204 mg/dL (75-99)
[2016-11-27] MEDS: NITROGLYCERIN OINT 1 INCH/GM PACKET TOPICAL SCH ×4 (06:52→20:16)
[2016-11-27 07:01] LABS: Basophils % (A) 0 %; CH 30.6; CHCM 32.6; Eosinophils % (A) 0 %; HCT 34.4 % (34.0-46.0); HDW 2.49; Luc # (Auto) 0.21; Luc % (Auto) 1; Lymphocytes # (A) 1.1 k/uL (1.0-4.8); Lymphocytes % (A) 6 %; MCH 30.2 pg (25.0-35.0); MCV 94.5 fL (80.0-100.0); Mean Platelet Volume 7.2; Monocytes % (A) 6 %; Neutrophils # (A) 15.4 k/uL (1.3-7.7); Neutrophils % (A) 87 %; RBC 3.64 m/uL (3.80-5.40); RDW 13.4 % (11.5-15.5); WBC 17.8 k/uL (3.8-10.6); WBC (Perox) 19.42
[2016-11-27 07:06] LABS: Anion Gap 10 mmol/L; Blood Urea Nitrogen 25 mg/dL (7-17); Calcium 8.8 mg/dL (8.4-10.2); Carbon Dioxide 24 mmol/L (22-30); Chloride 107 mmol/L (98-107); Glucose 195 mg/dL (74-99); Non-African American GFR(MDRD) >60 (>60 ml/min/1.73 sqM); Potassium 4.5 mmol/L (3.5-5.1); Sodium 141 mmol/L (137-145)
[2016-11-27] MEDS: INSULIN LISPRO (humaLOG) 300 UNIT/3 ML VIAL SQ SCH ×3 (07:07→17:46)
[2016-11-27 08:17] LABS: Glucose,Whole Blood 181 mg/dL (75-99)
--- NOTE | 2016-11-27 08:38 | P.PN ---
Subjective Principal diagnosis: Coronary artery disease, non-STEMI. Patient currently sitting up in bed in no apparent distress. Chest breakfast. Agreeable to surgery tomorrow. Objective - Vital Signs Vital signs: Vital Signs Temp 96.5 F L 11/26/16 20:00 Pulse 61 11/27/16 04:00 Resp 19 11/27/16 04:00 BP 162/74 11/27/16 04:00 Pulse Ox 95 11/27/16 04:00 Intake & Output 11/26/16 11/27/16 11/27/16 18:59 06:59 18:59 Intake Total 841.996 562.639 Balance 841.996 562.639 Weight 113 kg Intake: Intake, IV Titration 361.996 562.639 Amount Heparin Sodium,Porcine/ 281.688 480.439 D5w Pmx 25,000 unit In Dextrose/Water 1 500ml. bag @ 9.12 UNITS/KG/HR 19 .99 mls/hr IV .Q24H [facility] Rx#:[id number] IV Fluid Continuation 1, 0 000 ml As IV .STK-MED ONE Rx#:[id number] Insulin Regular 100 unit 80.308 82.200 In Sodium Chloride 0.9% 100 ml @ Titrate IV .Q0M [facility] Rx#:[id number] Oral 480 Other: # Voids 0 # Bowel Movements 0 - Constitutional General appearance: Present: cooperative, no acute distress, obese - Respiratory Details: Lungs sounds diminished bilaterally. Respirations even, nonlabored. Currently on room air with oxygen saturations in the mid 90s. - Cardiovascular Details: S1, S2 present. Regular rate and rhythm, normal sinus rhythm on telemetry. No events noted overnight. Trace bilateral lower extremity edema present. - Gastrointestinal Gastrointestinal Comment(s): Abdomen soft, nontender, nondistended. Active bowel sounds 4 quadrants. Tolerating diet. - Genitourinary Genitourinary Comment(s): Continues to void clear, yellow urine. - Musculoskeletal Musculoskeletal: Present: gait normal, strength equal bilaterally - Psychiatric Psychiatric: Present: A&O x's 3, appropriate affect, intact judgment & insight - Allied health notes Allied health notes reviewed: nursing - Labs CBC & Chem 7: 11/27/16 06:06 11/27/16 06:06 Labs: Abnormal Lab Results - Last 24 Hours (Table) 11/26/16 11/26/16 11/26/16 Range/Units 05:29 09:34 11:29 WBC (3.8-10.6) k/uL RBC (3.80-5.40) m/uL Hgb (11.4-16.0) gm/dL Neutrophils # (1.3-7.7) k/uL APTT (22.0-30.0) sec Chloride 108 H (98-107) mmol/L BUN 28 H (7-17) mg/dL Glucose 162 H (74-99) mg/dL POC Glucose (mg/dL) 316 H 251 H (75-99) mg/dL AST 41 H (14-36) U/L Total Protein 6.2 L (6.3-8.2) g/dL Albumin 3.3 L (3.5-5.0) g/dL TSH 0.216 L (0.465-4.680) mIU/L Urine Protein (Negative) Urine Glucose (UA) (Negative) Urine Mucus (None) /hpf 11/26/16 11/26/16 11/26/16 Range/Units 12:46 14:00 14:09 WBC (3.8-10.6) k/uL RBC (3.80-5.40) m/uL Hgb (11.4-16.0) gm/dL Neutrophils # (1.3-7.7) k/uL APTT 42.5 H (22.0-30.0) sec Chloride (98-107) mmol/L BUN (7-17) mg/dL Glucose (74-99) mg/dL POC Glucose (mg/dL) 227 H (75-99) mg/dL AST (14-36) U/L Total Protein (6.3-8.2) g/dL Albumin (3.5-5.0) g/dL TSH (0.465-4.680) mIU/L Urine Protein 1+ H (Negative) Urine Glucose (UA) 3+ H (Negative) Urine Mucus Rare H (None) /hpf 11/26/16 11/26/16 11/26/16 Range/Units 16:39 18:41 20:25 WBC (3.8-10.6) k/uL RBC (3.80-5.40) m/uL Hgb (11.4-16.0) gm/dL Neutrophils # (1.3-7.7) k/uL APTT 40.2 H (22.0-30.0) sec Chloride (98-107) mmol/L BUN (7-17) mg/dL Glucose (74-99) mg/dL POC Glucose (mg/dL) 170 H 270 H (75-99) mg/dL AST (14-36) U/L Total Protein (6.3-8.2) g/dL Albumin (3.5-5.0) g/dL TSH (0.465-4.680) mIU/L Urine Protein (Negative) Urine Glucose (UA) (Negative) Urine Mucus (None) /hpf 11/26/16 11/26/16 11/27/16 Range/Units 20:33 23:06 01:13 WBC (3.8-10.6) k/uL RBC (3.80-5.40) m/uL Hgb (11.4-16.0) gm/dL Neutrophils # (1.3-7.7) k/uL APTT (22.0-30.0) sec Chloride (98-107) mmol/L BUN (7-17) mg/dL Glucose (74-99) mg/dL POC Glucose (mg/dL) 210 H 314 H 259 H (75-99) mg/dL AST (14-36) U/L Total Protein (6.3-8.2) g/dL Albumin (3.5-5.0) g/dL TSH (0.465-4.680) mIU/L Urine Protein (Negative) Urine Glucose (UA) (Negative) Urine Mucus (None) /hpf 11/27/16 11/27/16 11/27/16 Range/Units 03:04 06:06 06:06 WBC 17.8 H (3.8-10.6) k/uL RBC 3.64 L (3.80-5.40) m/uL Hgb 11.0 L (11.4-16.0) gm/dL Neutrophils # 15.4 H (1.3-7.7) k/uL APTT (22.0-30.0) sec Chloride (98-107) mmol/L BUN 25 H (7-17) mg/dL Glucose 195 H (74-99) mg/dL POC Glucose (mg/dL) 209 H (75-99) mg/dL AST (14-36) U/L Total Protein (6.3-8.2) g/dL Albumin (3.5-5.0) g/dL TSH (0.465-4.680) mIU/L Urine Protein (Negative) Urine Glucose (UA) (Negative) Urine Mucus (None) /hpf 11/27/16 11/27/16 Range/Units 06:07 08:14 WBC (3.8-10.6) k/uL RBC (3.80-5.40) m/uL Hgb (11.4-16.0) gm/dL Neutrophils # (1.3-7.7) k/uL APTT (22.0-30.0) sec Chloride (98-107) mmol/L BUN (7-17) mg/dL Glucose (74-99) mg/dL POC Glucose (mg/dL) 204 H 181 H (75-99) mg/dL AST (14-36) U/L Total Protein (6.3-8.2) g/dL Albumin (3.5-5.0) g/dL TSH (0.465-4.680) mIU/L Urine Protein (Negative) Urine Glucose (UA) (Negative) Urine Mucus (None) /hpf Microbiology - Last 24 Hours (Table) 11/26/16 14:00 Urine Culture - Preliminary Urine,Clean Catch 11/26/16 01:40 Nasal Screen MRSA/MSSA ([facility]) - Preliminary Nasal Swab - Imaging and Cardiology PFTs, lower extremity vein mapping, ABIs reviewed. Assessment and Plan (1) Coronary arteriosclerosis in patient with history of previous myocardial infarction Status: Acute (2) Diabetes mellitus Status: Acute (3) Hypertension Status: Acute (4) Hyperlipidemia Status: Acute (5) COPD exacerbation Status: Acute (6) NSTEMI (non-ST elevated myocardial infarction) Status: Acute Plan: 1. Continue aspirin, Lipitor, lisinopril, Lopressor, heparin. 2. Preoperative testing reviewed with surgeon. 3. Anticipate off pump coronary artery bypass grafting tomorrow. 4. Preoperative teaching reinforced. All questions answered. 5. Encourage incentive spirometry use. 6. Encourage increased activity. 7. GI/DVT prophylaxis. 8. More recommendations as patient progresses. Time with Patient: Greater than 30
[2016-11-27] MEDS: SYMBICORT 160-4.5 MCG INHALER INHALATION SCH ×2 (08:52→20:42)
[2016-11-27] MEDS: IPRATROPIUM-ALBUTEROL 3 ML NEB INHALATION SCH ×4 (08:52→20:32)
[2016-11-27] MEDS: ASPIRIN 325 MG TAB PO SCH (08:56)
[2016-11-27] MEDS: NYSTATIN 100,000 UNIT/ML SUSP 500,000 UNIT/5 ML CUP PO SCH ×4 (08:56→20:16)
[2016-11-27] MEDS: MUPIROCIN 2% OINT 22 GM TUBE NASAL SCH ×2 (08:57→20:17)
[2016-11-27] MEDS: LISINOPRIL 10 MG TAB PO SCH ×2 (08:57→20:16)
[2016-11-27] MEDS: METOPROLOL SUCCINATE (ER) 50 MG TAB.ER.24H PO SCH (08:57)
[2016-11-27 10:13] LABS: Glucose,Whole Blood 247 mg/dL (75-99)
[2016-11-27 12:05] LABS: Glucose,Whole Blood 216 mg/dL (75-99)
[2016-11-27] MEDS: methylPREDNISolone SOD SUCCI 40 MG/ML 1 ML VIAL IV SCH ×3 (12:44→20:17)
[2016-11-27 14:23] LABS: Glucose,Whole Blood 252 mg/dL (75-99)
--- NOTE | 2016-11-27 15:40 | P.PN ---
Subjective Principal diagnosis: NOn STEMI This is a 66-year-old female who presented to the hospital with a non- ST elevation myocardial infarction. She underwent a cardiac catheterization on Sunday which revealed significant triple vessel coronary artery is, and she is scheduled to undergo coronary artery bypass grafting surgery unchanged today. Patient was seen and examined today, denies any chest pain or difficulty in breathing. Blood pressure 138/70, heart rate in the 60s. Stool for occult blood positive. Because of the positive stool, we will discontinue the heparin today, patient has been up ambulating denies any chest discomfort. Objective - Vital Signs Vital signs: Vital Signs Temp 96.5 F L 11/26/16 20:00 Pulse 64 11/27/16 09:03 Resp 16 11/27/16 08:00 BP 139/79 11/27/16 08:00 Pulse Ox 97 11/27/16 08:00 Intake & Output 11/26/16 11/27/16 11/27/16 18:59 06:59 18:59 Intake Total 841.996 562.639 773.808 Output Total 200 Balance 841.996 562.639 573.808 Weight 113 kg Intake: Intake, IV Titration 361.996 562.639 368.808 Amount Heparin Sodium,Porcine/ 281.688 480.439 368.808 D5w Pmx 25,000 unit In Dextrose/Water 1 500ml. bag @ 9.12 UNITS/KG/HR 19 .99 mls/hr IV .Q24H [facility] Rx#:[id number] IV Fluid Continuation 1, 0 000 ml As IV .STK-MED ONE Rx#:[id number] Insulin Regular 100 unit 80.308 82.200 In Sodium Chloride 0.9% 100 ml @ Titrate IV .Q0M [facility] Rx#:[id number] Oral 480 405 Output: Urine 200 Other: Voiding Method Toilet # Voids 0 # Bowel Movements 0 - Exam PHYSICAL EXAMINATION: HEENT: Head is atraumatic, normocephalic. Pupils equal, round. Neck is supple. There is no elevated jugular venous pressure. HEART EXAMINATION: Heart S1, S2 normal. No murmur or gallop heard. CHEST EXAMINATION: Lungs are clear to auscultation and precussion. No chest wall tenderness is noted on palpation or with deep breathing. ABDOMEN: Soft, nontender. Bowel sounds are heard. No organomegaly noted. EXTREMITIES: 2+ peripheral pulses with no evidence of peripheral edema and no calf tenderness noted. NEUROLOGIC patient is awake, alert and oriented -3. . - Labs CBC & Chem 7: 11/27/16 06:06 11/27/16 06:06 Labs: Abnormal Lab Results - Last 24 Hours (Table) 11/26/16 11/26/16 11/26/16 Range/Units 16:39 18:41 20:25 WBC (3.8-10.6) k/uL RBC (3.80-5.40) m/uL Hgb (11.4-16.0) gm/dL Neutrophils # (1.3-7.7) k/uL APTT 40.2 H (22.0-30.0) sec BUN (7-17) mg/dL Glucose (74-99) mg/dL POC Glucose (mg/dL) 170 H 270 H (75-99) mg/dL Stool Occult Blood (Negative) Crossmatch 11/26/16 11/26/16 11/27/16 Range/Units 20:33 23:06 01:13 WBC (3.8-10.6) k/uL RBC (3.80-5.40) m/uL Hgb (11.4-16.0) gm/dL Neutrophils # (1.3-7.7) k/uL APTT (22.0-30.0) sec BUN (7-17) mg/dL Glucose (74-99) mg/dL POC Glucose (mg/dL) 210 H 314 H 259 H (75-99) mg/dL Stool Occult Blood (Negative) Crossmatch 11/27/16 11/27/16 11/27/16 Range/Units 03:04 06:06 06:06 WBC 17.8 H (3.8-10.6) k/uL RBC 3.64 L (3.80-5.40) m/uL Hgb 11.0 L (11.4-16.0) gm/dL Neutrophils # 15.4 H (1.3-7.7) k/uL APTT (22.0-30.0) sec BUN 25 H (7-17) mg/dL Glucose 195 H (74-99) mg/dL POC Glucose (mg/dL) 209 H (75-99) mg/dL Stool Occult Blood (Negative) Crossmatch 11/27/16 11/27/16 11/27/16 Range/Units 06:06 06:07 08:14 WBC (3.8-10.6) k/uL RBC (3.80-5.40) m/uL Hgb (11.4-16.0) gm/dL Neutrophils # (1.3-7.7) k/uL APTT 123.0 H* (22.0-30.0) sec BUN (7-17) mg/dL Glucose (74-99) mg/dL POC Glucose (mg/dL) 204 H 181 H (75-99) mg/dL Stool Occult Blood (Negative) Crossmatch 11/27/16 11/27/16 11/27/16 Range/Units 09:32 10:11 12:02 WBC (3.8-10.6) k/uL RBC (3.80-5.40) m/uL Hgb (11.4-16.0) gm/dL Neutrophils # (1.3-7.7) k/uL APTT (22.0-30.0) sec BUN (7-17) mg/dL Glucose (74-99) mg/dL POC Glucose (mg/dL) 247 H 216 H (75-99) mg/dL Stool Occult Blood (Negative) Crossmatch See Detail 11/27/16 11/27/16 Range/Units 12:50 14:21 WBC (3.8-10.6) k/uL RBC (3.80-5.40) m/uL Hgb (11.4-16.0) gm/dL Neutrophils # (1.3-7.7) k/uL APTT (22.0-30.0) sec BUN (7-17) mg/dL Glucose (74-99) mg/dL POC Glucose (mg/dL) 252 H (75-99) mg/dL Stool Occult Blood Positive H (Negative) Crossmatch Microbiology - Last 24 Hours (Table) 11/26/16 14:00 Urine Culture - Final Urine,Clean Catch 11/26/16 01:40 Nasal Screen MRSA/MSSA ([facility]) - Final Nasal Swab Assessment and Plan (1) S/P cardiac catheterization Status: Acute (2) Triple vessel coronary artery disease Status: Acute (3) COPD (chronic obstructive pulmonary disease) Status: Acute (4) Diabetes mellitus Status: Acute (5) Hyperlipidemia Status: Acute (6) Hypertension Status: Acute (7) NSTEMI (non-ST elevated myocardial infarction) Status: Acute Plan: From cardiology's perspective, we'll discontinue the IV heparin because the stool is positive for occult. We will continue other current medications. She is scheduled to undergo coronary artery bypass grafting surgery tomorrow. We will continue to follow. DNP note has been reviewed, I agree with a documented findings and plan of care. Patient was seen and examined.
[2016-11-27 16:21] LABS: Glucose,Whole Blood 143 mg/dL (75-99)
--- NOTE | 2016-11-27 17:34 | P.PN ---
Subjective This is a very pleasant 66-year-old female patient who follows with Dr. Gonzales as her primary care physician. she has a history of hypertension, hyperlipidemia,diabetes mellitus, coronary artery disease with previous stent placements, morbid obesity. She also has a history of chronic obstructive pulmonary disease from previous smoking history and follows with Dr. Monique in our office for the same. She is maintained on Symbicort, Spiriva and albuterol. She presented here yesterday with complaints of increasing shortness of breath on minimal exertion. She also had some back discomfort radiating down her arms. She is found to be a non-ST segment elevation myocardial infarction and the plan is for cardiac catheterization today.she is seen in consultation on the selective care unit. She is currently awake and alert in no acute distress. Her chest x-ray shows evidence of chronic obstructive disease, cardiomegaly and bilateral atelectasis. No significant change from previous. She is maintaining good O2 saturations in the upper 90s on room air. She's been afebrile. She denies any current chest discomfort. No back pain. No palpitations, lightheadedness or dizziness. On 11/27/2016 the patient is being seen in follow-up. The patient has undergone the cardiac catheterization and the patient has progression of disease in the proximal in the mid LAD and significant disease in the first obtuse marginal branch a chronically occluded right coronary artery with collaterals from the left system. Based on that, the patient will be taken to the operating room for a coronary artery bypass surgery tomorrow. As mentioned earlier, the patient has COPD and her baseline FEV1 is in order of 53-54% of predicted consistent with moderately severe disease. Nevertheless, her disease not in acute exacerbation. Her white cell count slightly elevated probably a steroid effect. No signs of septicemia. She is able to climb a flight of stairs without any major difficulties. Objective - Vital Signs Vital signs: Vital Signs Temp 96.5 F L 11/26/16 20:00 Pulse 56 L 11/27/16 12:00 Resp 16 11/27/16 12:00 BP 147/64 11/27/16 12:00 Pulse Ox 95 11/27/16 12:00 Intake & Output 11/26/16 11/27/16 11/27/16 18:59 06:59 18:59 Intake Total 841.996 562.639 773.808 Output Total 200 Balance 841.996 562.639 573.808 Weight 113 kg Intake: Intake, IV Titration 361.996 562.639 368.808 Amount Heparin Sodium,Porcine/ 281.688 480.439 368.808 D5w Pmx 25,000 unit In Dextrose/Water 1 500ml. bag @ 9.12 UNITS/KG/HR 19 .99 mls/hr IV .Q24H [facility] Rx#:[id number] IV Fluid Continuation 1, 0 000 ml As IV .STK-MED ONE Rx#:[id number] Insulin Regular 100 unit 80.308 82.200 In Sodium Chloride 0.9% 100 ml @ Titrate IV .Q0M [facility] Rx#:[id number] Oral 480 405 Output: Urine 200 Other: Voiding Method Toilet # Voids 0 # Bowel Movements 0 - Exam Head exam was generally normal. There was no scleral icterus or corneal arcus. Mucous membranes were moist. Neck is short and supple and there is significant crowding of the posterior oropharynx. There is no goiter or neck masses. Lungs sounds are diminished bilaterally in the lung bases. No wheezes or rhonchi.Cardiac exam revealed the PMI to be normally situated and sized. The rhythm was regular and no extrasystoles were noted during several minutes of auscultation. The first and second heart sounds were normal and physiologic splitting of the second heart sound was noted. There were no murmurs, rubs, clicks, or gallops. Abdomen is obese and orders cannot be accurately palpated. There is no direct tenderness. No rebound tenderness. No guarding.Examination of the extremities revealed easily palpable radial, femoral and pedal pulses. There was no cyanosis, clubbing or edema. - Labs CBC & Chem 7: 11/27/16 06:06 11/27/16 06:06 Labs: Abnormal Lab Results - Last 24 Hours (Table) 11/26/16 11/26/16 11/26/16 Range/Units 18:41 20:25 20:33 WBC (3.8-10.6) k/uL RBC (3.80-5.40) m/uL Hgb (11.4-16.0) gm/dL Neutrophils # (1.3-7.7) k/uL APTT 40.2 H (22.0-30.0) sec BUN (7-17) mg/dL Glucose (74-99) mg/dL POC Glucose (mg/dL) 270 H 210 H (75-99) mg/dL Stool Occult Blood (Negative) Crossmatch 11/26/16 11/27/16 11/27/16 Range/Units 23:06 01:13 03:04 WBC (3.8-10.6) k/uL RBC (3.80-5.40) m/uL Hgb (11.4-16.0) gm/dL Neutrophils # (1.3-7.7) k/uL APTT (22.0-30.0) sec BUN (7-17) mg/dL Glucose (74-99) mg/dL POC Glucose (mg/dL) 314 H 259 H 209 H (75-99) mg/dL Stool Occult Blood (Negative) Crossmatch 11/27/16 11/27/16 11/27/16 Range/Units 06:06 06:06 06:06 WBC 17.8 H (3.8-10.6) k/uL RBC 3.64 L (3.80-5.40) m/uL Hgb 11.0 L (11.4-16.0) gm/dL Neutrophils # 15.4 H (1.3-7.7) k/uL APTT 123.0 H* (22.0-30.0) sec BUN 25 H (7-17) mg/dL Glucose 195 H (74-99) mg/dL POC Glucose (mg/dL) (75-99) mg/dL Stool Occult Blood (Negative) Crossmatch 11/27/16 11/27/16 11/27/16 Range/Units 06:07 08:14 09:32 WBC (3.8-10.6) k/uL RBC (3.80-5.40) m/uL Hgb (11.4-16.0) gm/dL Neutrophils # (1.3-7.7) k/uL APTT (22.0-30.0) sec BUN (7-17) mg/dL Glucose (74-99) mg/dL POC Glucose (mg/dL) 204 H 181 H (75-99) mg/dL Stool Occult Blood (Negative) Crossmatch See Detail 11/27/16 11/27/16 11/27/16 Range/Units 10:11 12:02 12:50 WBC (3.8-10.6) k/uL RBC (3.80-5.40) m/uL Hgb (11.4-16.0) gm/dL Neutrophils # (1.3-7.7) k/uL APTT (22.0-30.0) sec BUN (7-17) mg/dL Glucose (74-99) mg/dL POC Glucose (mg/dL) 247 H 216 H (75-99) mg/dL Stool Occult Blood Positive H (Negative) Crossmatch 11/27/16 11/27/16 Range/Units 14:21 16:14 WBC (3.8-10.6) k/uL RBC (3.80-5.40) m/uL Hgb (11.4-16.0) gm/dL Neutrophils # (1.3-7.7) k/uL APTT (22.0-30.0) sec BUN (7-17) mg/dL Glucose (74-99) mg/dL POC Glucose (mg/dL) 252 H 143 H (75-99) mg/dL Stool Occult Blood (Negative) Crossmatch Microbiology - Last 24 Hours (Table) 11/26/16 14:00 Urine Culture - Final Urine,Clean Catch 11/26/16 01:40 Nasal Screen MRSA/MSSA ([facility]) - Final Nasal Swab Assessment and Plan Plan: Assessment 1 multivessel coronary artery disease not abnormal to percutaneous revascularization/angioplasty/stenting. Based on that, the patient be taken to the operating room for cardiac revascularization surgery. This will be done by Dr. Allan Desouza in a.m. Status post non-ST segment elevation myocardial infarction 2 COPD moderate to severe with a baseline FEV1 of 53-54% of predicted. 3 morbid obesity 4 hypertension 6 hyperlipidemia 7 smoker Plan The patient's has moderate severe but stable COPD. The patient will be taken to the operating room for coronary artery bypass surgery. She is status post non-ST segment elevation myocardial infarction. The patient carries an increased risk of having postoperative pulmonary complications based on her elevated BMI of 42.8 and moderate to severe COPD. We'll encourage use of incentive spirometer. We'll continue following up this patient during her postoperative course.
--- NOTE | 2016-11-27 18:38 | PN ---
DATE OF SERVICE: 11/27/2016 This 66-year-old woman who was admitted had features of multi-vessel coronary artery disease. Seen and evaluated the patient along with the nurse practitioner. Please refer to the nurse practitioner's notes and impressions documented as a scribe for further information. White count is still elevated. I discussed with Dr. Monique. Closely follow with Cardiothoracic Surgery. Further recommendations to follow.
--- NOTE | 2016-11-27 19:06 | P.PN ---
Subjective Date of service 11/27/2016. Progress note being dictated for Dr. Arredondo. Interval history: This is 66-year-old female admitted with acute non-STEMI, status post cardiac cath reporting multivessel vessel CAD. Evaluated by cardiothoracic surgery and CABG is scheduled for Sunday. Heparin discontinued secondary to post stool for occult blood positive as per cardiology. Denies chest pain, palpitations or increasing shortness of breath. Telemetry sinus rhythm with first-degree AV block. Objective - Vital Signs Vital signs: Vital Signs Temp 96.5 F L 11/26/16 20:00 Pulse 59 L 11/27/16 16:00 Resp 16 11/27/16 16:00 BP 118/77 11/27/16 16:00 Pulse Ox 95 11/27/16 12:00 Intake & Output 11/26/16 11/27/16 11/27/16 18:59 06:59 18:59 Intake Total 841.996 002.332 1737.308 Output Total 550 Balance 841.996 562.639 457.308 Weight 113 kg Intake: Intake, IV Titration 361.996 562.639 422.308 Amount Heparin Sodium,Porcine/ 281.688 480.439 368.808 D5w Pmx 25,000 unit In Dextrose/Water 1 500ml. bag @ 9.12 UNITS/KG/HR 19 .99 mls/hr IV .Q24H [facility] Rx#:[id number] IV Fluid Continuation 1, 0 000 ml As IV .[facility] Rx#:[id number] Insulin Regular 100 unit 80.308 82.200 53.5 In Sodium Chloride 0.9% 100 ml @ Titrate IV .Q0M [facility] Rx#:[id number] Oral 480 585 Output: Urine 550 Other: Voiding Method Toilet # Voids 0 # Bowel Movements 0 - Exam PHYSICAL EXAM: VITAL SIGNS: As above GENERAL: [Sitting up in bed, no acute distress] HEENT: [Pupils equal conjunctiva normal.] NECK: [Supple, no JVD] RESPIRATORY EFFORT:[Normal LUNGS: [Essentially clear to auscultation, bilateral bases diminished, no wheezes rhonchi or crackles]] CARDIOVASCULAR[regular S1 and S2, no murmur rub or gallop, no edema] GI: [Abdomen soft, obese, nontender, positive bowel sounds. No organomegaly.] PSYCH: [Alert and oriented -3, mood and affect normal.] NEURO: No focal deficits, moves all 4 extremities, strength and sensation grossly intact - Labs CBC & Chem 7: 11/27/16 06:06 11/27/16 06:06 Labs: Abnormal Lab Results - Last 24 Hours (Table) 11/26/16 11/26/16 11/26/16 Range/Units 20:25 20:33 23:06 WBC (3.8-10.6) k/uL RBC (3.80-5.40) m/uL Hgb (11.4-16.0) gm/dL Neutrophils # (1.3-7.7) k/uL APTT 40.2 H (22.0-30.0) sec BUN (7-17) mg/dL Glucose (74-99) mg/dL POC Glucose (mg/dL) 210 H 314 H (75-99) mg/dL Stool Occult Blood (Negative) Crossmatch 11/27/16 11/27/16 11/27/16 Range/Units 01:13 03:04 06:06 WBC 17.8 H (3.8-10.6) k/uL RBC 3.64 L (3.80-5.40) m/uL Hgb 11.0 L (11.4-16.0) gm/dL Neutrophils # 15.4 H (1.3-7.7) k/uL APTT (22.0-30.0) sec BUN (7-17) mg/dL Glucose (74-99) mg/dL POC Glucose (mg/dL) 259 H 209 H (75-99) mg/dL Stool Occult Blood (Negative) Crossmatch 11/27/16 11/27/16 11/27/16 Range/Units 06:06 06:06 06:07 WBC (3.8-10.6) k/uL RBC (3.80-5.40) m/uL Hgb (11.4-16.0) gm/dL Neutrophils # (1.3-7.7) k/uL APTT 123.0 H* (22.0-30.0) sec BUN 25 H (7-17) mg/dL Glucose 195 H (74-99) mg/dL POC Glucose (mg/dL) 204 H (75-99) mg/dL Stool Occult Blood (Negative) Crossmatch 11/27/16 11/27/16 11/27/16 Range/Units 08:14 09:32 10:11 WBC (3.8-10.6) k/uL RBC (3.80-5.40) m/uL Hgb (11.4-16.0) gm/dL Neutrophils # (1.3-7.7) k/uL APTT (22.0-30.0) sec BUN (7-17) mg/dL Glucose (74-99) mg/dL POC Glucose (mg/dL) 181 H 247 H (75-99) mg/dL Stool Occult Blood (Negative) Crossmatch See Detail 11/27/16 11/27/16 11/27/16 Range/Units 12:02 12:50 14:21 WBC (3.8-10.6) k/uL RBC (3.80-5.40) m/uL Hgb (11.4-16.0) gm/dL Neutrophils # (1.3-7.7) k/uL APTT (22.0-30.0) sec BUN (7-17) mg/dL Glucose (74-99) mg/dL POC Glucose (mg/dL) 216 H 252 H (75-99) mg/dL Stool Occult Blood Positive H (Negative) Crossmatch 11/27/16 Range/Units 16:14 WBC (3.8-10.6) k/uL RBC (3.80-5.40) m/uL Hgb (11.4-16.0) gm/dL Neutrophils # (1.3-7.7) k/uL APTT (22.0-30.0) sec BUN (7-17) mg/dL Glucose (74-99) mg/dL POC Glucose (mg/dL) 143 H (75-99) mg/dL Stool Occult Blood (Negative) Crossmatch Microbiology - Last 24 Hours (Table) 11/26/16 14:00 Urine Culture - Final Urine,Clean Catch 11/26/16 01:40 Nasal Screen MRSA/MSSA ([facility]) - Final Nasal Swab Assessment and Plan Plan: 1. [Chest pain with acute non-STEMI, troponin 0.867, status post cardiac catheterization with severe multivessel CAD]. 2. [Shortness of breath possibly multifactorial, acute exacerbation COPD as well as CAD]. 3. [Leukocytosis, suspect reactive]. 4. [Anemia, normocytic, of chronic disease]. 5. [Diabetes mellitus type 2, hemoglobin A1c 9.9]. Outpatient diabetic education classes. 6. [Obesity, BMI 42.8]. 7. [History of COPD and paroxysmal intermittent asthma]. 8. History of CAD with stent, [place] 9. Essential hypertension 11. Hyperlipidemia 12. Remote history of nicotine dependence Plan: Continue on current medication regime , Xanax, statin, monitoring and symptomatic treatment. Maintain insulin drip with close monitoring of Accu- Cheks. As mentioned above scheduled for CABG tomorrow. Follow with multiple consults closely. clinical nurse educator consulted. Further recommendations to follow. The impression and plan of care has been dictated as directed. : I performed a H&P examination of this patient and discussed the same with the dictator. I agree with the dictator's note. Any additional findings/opinions/ etc. will be noted.
[2016-11-27 20:12] LABS: Glucose,Whole Blood 172 mg/dL (75-99)
[2016-11-27] MEDS: ATORVASTATIN 80 MG TAB PO SCH (20:17)
[2016-11-27 23:25] LABS: Glucose,Whole Blood 270 mg/dL (75-99)
[2016-11-28 00:17] LABS: Glucose,Whole Blood 212 mg/dL (75-99)
[2016-11-28 02:20] LABS: Glucose,Whole Blood 173 mg/dL (75-99)
[2016-11-28] MEDS: INSULIN REGULAR 100 UNIT in SODIUM CHLORIDE 0.9% 100 ML IV SCH ×2 (04:50→19:03)
[2016-11-28 04:52] LABS: Glucose,Whole Blood 252 mg/dL (75-99)
[2016-11-28] MEDS ORDERED: ATORVASTATIN 10 MG TAB PO ONE (05:00)
[2016-11-28] MEDS ORDERED: CLEVIDIPINE BUTYRATE 25 MG in EMPTY BAG 1 BAG IV PRN (05:00)
[2016-11-28] MEDS ORDERED: AMINOCAPROIC ACID 5,000 MG in DEXTROSE 5% IN WATER 50 ML IV PRN ×4 (05:00)
[2016-11-28] MEDS ORDERED: NITROGLYCERIN-D5W PMX 25 MG/250 ML BTL IV PRN (05:00)
[2016-11-28] MEDS ORDERED: HEPARIN SODIUM,PORCINE 5,000 UNIT in SODIUM CHLORIDE 0.9% 500 ML IV PRN (05:00)
[2016-11-28] MEDS ORDERED: MAGNESIUM SULFATE SYG 4.06 MEQ/ML SYRINGE IV PRN (05:00)
[2016-11-28] MEDS ORDERED: CALCIUM CHLORIDE 100 MG/ML 10 ML SYRINGE IVP PRN (05:00)
[2016-11-28] MEDS ORDERED: CARDIOPLEGIC SOLN (K+ 16 MEQ/L 1,000 ML with SODIUM BICARB (1 MEQ/ML) 20 ML, LIDOCAINE ... PERFUSION NR ×3 (05:00)
[2016-11-28] MEDS ORDERED: PAPAVERINE 360 MG in SODIUM CHLORIDE 0.9% 90 ML IV PRN (05:00)
[2016-11-28] MEDS ORDERED: LACTATED RINGERS 1,000 ML IV PRN (05:00)
[2016-11-28] MEDS ORDERED: CHLORHEXIDINE GLUCONATE 15 ML CUP MUCOUS MEM PRN (05:00)
[2016-11-28] MEDS ORDERED: ceFAZolin 1,000 MG in SODIUM CHLORIDE 0.9% IRRIGATIO 1,000 ML IRRIGATION PRN (05:00)
[2016-11-28] MEDS ORDERED: PROTAMINE SULFATE 250 MG in EMPTY BAG 1 BAG IV PRN (05:00)
[2016-11-28] MEDS ORDERED: METOPROLOL TARTRATE 25 MG TAB PO ONE (05:00)
[2016-11-28] MEDS ORDERED: ALBUMIN HUMAN 5% 500 ML in EMPTY BAG 1 BAG IVPB PRN ×6 (05:00)
[2016-11-28] MEDS ORDERED: ALBUMIN HUMAN 25% 50 ML in EMPTY BAG 1 BAG IVPB PRN (05:00)
[2016-11-28] MEDS ORDERED: INSULIN REGULAR 100 UNIT in SODIUM CHLORIDE 0.9% 100 ML IV PRN (05:00)
[2016-11-28] MEDS ORDERED: AMINOCAPROIC ACID 250 MG/ML 20 ML VIAL IV PRN (05:00)
[2016-11-28] MEDS ORDERED: SODIUM BICARB 8.4% 50 ML SYR (1 MEQ/ML) IV PRN (05:00)
[2016-11-28] MEDS ORDERED: ceFAZolin 2 GM in SODIUM CHLORIDE 0.9% 30 ML IVPB PRN (05:00)
[2016-11-28] MEDS ORDERED: NITROGLYCERIN-D5W PMX 50 MG in DEXTROSE/WATER 1 250ML.BAG IV PRN (05:00)
[2016-11-28] MEDS ORDERED: PHENYLEPHRINE 40 MG in SODIUM CHLORIDE 0.9% 250 ML IV PRN (05:00)
[2016-11-28] MEDS ORDERED: PHENYLEPHRINE-0.9% NACL SYG 1 MG/10 ML SYRINGE IV PRN ×4 (05:00)
[2016-11-28] MEDS ORDERED: MANNITOL 25% 12.5 GM/50 ML VIAL IV PRN (05:00)
[2016-11-28] MEDS ORDERED: ASPIRIN 325 MG TAB PO ONE (05:00)
[2016-11-28] MEDS ORDERED: PROPOFOL 500 MG in EMPTY BAG 1 BAG IV PRN (05:00)
[2016-11-28] MEDS ORDERED: HEPARIN SODIUM 1,000 UNIT/ML VIAL IV PRN (05:00)
[2016-11-28] MEDS ORDERED: PROTAMINE SULFATE 10 MG/ML 25 ML VIAL IV PRN (05:00)
[2016-11-28] MEDS ORDERED: NOREPINEPHRINE 4 MG in SODIUM CHLORIDE 0.9% 250 ML IV PRN (05:00)
[2016-11-28] MEDS ORDERED: ceFAZolin 2,000 MG in SODIUM CHLORIDE 0.9% 30 ML IVPB PRN (05:00)
[2016-11-28] MEDS: NITROGLYCERIN OINT 1 INCH/GM PACKET TOPICAL SCH ×2 (05:50→13:39)
[2016-11-28] MEDS: INSULIN LISPRO (humaLOG) 300 UNIT/3 ML VIAL SQ SCH ×2 (05:50→13:39)
[2016-11-28 06:20] LABS: Basophils % (A) 0 %; CH 30.8; CHCM 32.5; Eosinophils % (A) 0 %; HCT 36.9 % (34.0-46.0); HDW 2.49; HGB 11.8 gm/dL (11.4-16.0); Luc # (Auto) 0.11; Luc % (Auto) 1; Lymphocytes # (A) 0.9 k/uL (1.0-4.8); Lymphocytes % (A) 5 %; MCH 30.5 pg (25.0-35.0); MCV 95.3 fL (80.0-100.0); Mean Platelet Volume 6.8; Monocytes # (A) 0.6 k/uL (0-1.0); Monocytes % (A) 4 %; Neutrophils # (A) 14.3 k/uL (1.3-7.7); Neutrophils % (A) 90 %; RBC 3.87 m/uL (3.80-5.40); RDW 13.7 % (11.5-15.5); WBC 15.9 k/uL (3.8-10.6); WBC (Perox) 16.92
[2016-11-28 06:34] LABS: ALT 77 U/L (9-52); AST 39 U/L (14-36); Alkaline Phosphatase 51 U/L (38-126); Anion Gap 8 mmol/L; Blood Urea Nitrogen 28 mg/dL (7-17); Calcium 8.7 mg/dL (8.4-10.2); Carbon Dioxide 26 mmol/L (22-30); Chloride 105 mmol/L (98-107); Glucose 264 mg/dL (74-99); Non-African American GFR(MDRD) >60 (>60 ml/min/1.73 sqM); Potassium 4.9 mmol/L (3.5-5.1); Sodium 139 mmol/L (137-145); Total Bilirubin 0.9 mg/dL (0.2-1.3); Total Protein 6.1 g/dL (6.3-8.2)
[2016-11-28 06:53] LABS: INR 1.1 (<1.1); Prothrombin Time 11.4 sec (9.0-12.0)
[2016-11-28 06:55] LABS: Partial Thromboplastin Time 20.6 sec (22.0-30.0)
[2016-11-28 07:36] LABS: Glucose,Whole Blood 274 mg/dL (75-99)
[2016-11-28] MEDS: SYMBICORT 160-4.5 MCG INHALER INHALATION SCH (07:50)
[2016-11-28] MEDS: IPRATROPIUM-ALBUTEROL 3 ML NEB INHALATION SCH ×4 (07:51→20:56)
[2016-11-28] MEDS ORDERED: IV FLUID CONTINUATION 1,000 ML IV ONE (08:05)
[2016-11-28 08:49] LABS: Glucose,Whole Blood 269 mg/dL (75-99)
[2016-11-28 10:19] LABS: Glucose,Whole Blood 214 mg/dL (75-99)
[2016-11-28] MEDS ORDERED: HEPARIN SODIUM,PORCINE 10,000 UNIT/ML 1 ML VIAL ONE (10:31)
[2016-11-28] MEDS ORDERED: PHENYLEPHRINE-0.9% NACL SYG 1 MG/10 ML SYRINGE ONE (10:31)
[2016-11-28] MEDS ORDERED: PROTAMINE SULFATE 10 MG/ML 5 ML VIAL IV ONE (10:31)
[2016-11-28] MEDS ORDERED: MIDAZOLAM 2 MG/2 ML VIAL ONE (10:31)
[2016-11-28] MEDS ORDERED: ALBUMIN HUMAN 5% 500 ML VIAL IVPB ONE (10:31)
[2016-11-28] MEDS ORDERED: SODIUM CHLORIDE 0.9% IRRIG 1,000 ML BTL IRRIGATION ONE (10:31)
[2016-11-28] MEDS ORDERED: fentaNYL (PF) 50 MCG/ML 2 ML AMP ONE (10:31)
[2016-11-28] MEDS ORDERED: fentaNYL (PF) 50 MCG/ML 50 ML VIAL ONE (10:31)
[2016-11-28] MEDS ORDERED: SUCCINYLCHOLINE CHLORIDE 100 MG/5 ML SYR IV ONE (10:31)
[2016-11-28] MEDS ORDERED: CALCIUM CHLORIDE 100 MG/ML 10 ML SYRINGE ONE (10:31)
[2016-11-28] MEDS ORDERED: PROPOFOL 10 MG/ML 20 ML VIAL IV ONE (10:31)
[2016-11-28] MEDS ORDERED: ALBUTEROL NEB (CONC) 2.5 MG/0.5 ML INHALATION ONE (10:31)
[2016-11-28] MEDS ORDERED: VECURONIUM 10 MG VIAL IV ONE (10:31)
[2016-11-28] MEDS ORDERED: HEPARIN SODIUM,PORCINE 5,000 UNIT/ML 1 ML VIAL ONE (10:31)
[2016-11-28] MEDS ORDERED: ePHEDrine 50 MG/ML 1 ML AMP ONE (10:31)
[2016-11-28 11:06] LABS: Glucose,Whole Blood 165 mg/dL (75-99)
[2016-11-28 12:34] LABS: Glucose,Whole Blood 144 mg/dL (75-99)
--- NOTE | 2016-11-28 13:02 | P.PN ---
Subjective Date of service 11/28/2016. Progress note being dictated for Dr. Arredondo. Interval history: This is 66-year-old female admitted with acute non-STEMI, status post cardiac cath reporting multivessel vessel CAD. Scheduled for CABG this morning. Telemetry sinus bradycardia, heart rate in the 50s. Hemoglobin 11.8. Continues on insulin drip; insulin titration protocol. Denies chest pain , palpitations or increasing shortness of breath. Objective - Vital Signs Vital signs: Vital Signs Temp 97 F L 11/28/16 08:13 Pulse 47 L 11/28/16 08:13 Resp 16 11/28/16 08:13 BP 167/70 11/28/16 08:13 Pulse Ox 98 11/28/16 08:13 Intake & Output 11/27/16 11/28/16 11/28/16 18:59 06:59 18:59 Intake Total 1007.308 38.500 17.617 Output Total 550 Balance 457.308 38.500 17.617 Weight 112.4 kg Intake: IV 0 Intake, IV Titration 422.308 38.500 17.617 Amount Heparin Sodium,Porcine/ 368.808 D5w Pmx 25,000 unit In Dextrose/Water 1 500ml. bag @ 9.12 UNITS/KG/HR 19 .99 mls/hr IV .Q24H [facility] Rx#:[id number] Insulin Regular 100 unit 5 In Sodium Chloride 0.9% 100 ml @ Titrate IV .Q0M [facility] Rx#:[id number] Insulin Regular 100 unit 53.5 33.500 17.617 In Sodium Chloride 0.9% 100 ml @ Titrate IV .Q0M [facility] Rx#:[id number] Oral 585 Output: Urine 550 Other: Voiding Method Toilet # Voids 1 - Exam PHYSICAL EXAM: VITAL SIGNS: As above GENERAL: [Sitting up in bed, no acute distress] HEENT: [Pupils equal conjunctiva normal.] NECK: [Supple, no JVD] RESPIRATORY EFFORT:[Normal LUNGS: [Essentially clear to auscultation, bilateral bases diminished, no wheezes rhonchi or crackles]] CARDIOVASCULAR[regular S1 and S2, no murmur rub or gallop, no edema] GI: [Abdomen soft, obese, nontender, positive bowel sounds. No organomegaly.] PSYCH: [Alert and oriented -3, mood and affect normal NEURO: No focal deficits, moves all 4 extremities, strength and sensation grossly intact - Labs CBC & Chem 7: 11/28/16 05:54 11/28/16 05:54 Labs: Abnormal Lab Results - Last 24 Hours (Table) 11/27/16 11/27/16 11/27/16 Range/Units 09:32 12:50 14:21 WBC (3.8-10.6) k/uL Neutrophils # (1.3-7.7) k/uL Lymphocytes # (1.0-4.8) k/uL APTT (22.0-30.0) sec BUN (7-17) mg/dL Glucose (74-99) mg/dL POC Glucose (mg/dL) 252 H (75-99) mg/dL AST (14-36) U/L ALT (9-52) U/L Total Protein (6.3-8.2) g/dL Albumin (3.5-5.0) g/dL Stool Occult Blood Positive H (Negative) Crossmatch See Detail 11/27/16 11/27/16 11/27/16 Range/Units 16:14 20:10 22:49 WBC (3.8-10.6) k/uL Neutrophils # (1.3-7.7) k/uL Lymphocytes # (1.0-4.8) k/uL APTT (22.0-30.0) sec BUN (7-17) mg/dL Glucose (74-99) mg/dL POC Glucose (mg/dL) 143 H 172 H 270 H (75-99) mg/dL AST (14-36) U/L ALT (9-52) U/L Total Protein (6.3-8.2) g/dL Albumin (3.5-5.0) g/dL Stool Occult Blood (Negative) Crossmatch 11/28/16 11/28/16 11/28/16 Range/Units 00:16 02:18 04:43 WBC (3.8-10.6) k/uL Neutrophils # (1.3-7.7) k/uL Lymphocytes # (1.0-4.8) k/uL APTT (22.0-30.0) sec BUN (7-17) mg/dL Glucose (74-99) mg/dL POC Glucose (mg/dL) 212 H 173 H 252 H (75-99) mg/dL AST (14-36) U/L ALT (9-52) U/L Total Protein (6.3-8.2) g/dL Albumin (3.5-5.0) g/dL Stool Occult Blood (Negative) Crossmatch 11/28/16 11/28/16 11/28/16 Range/Units 05:54 05:54 05:54 WBC 15.9 H (3.8-10.6) k/uL Neutrophils # 14.3 H (1.3-7.7) k/uL Lymphocytes # 0.9 L (1.0-4.8) k/uL APTT 20.6 L (22.0-30.0) sec BUN 28 H (7-17) mg/dL Glucose 264 H (74-99) mg/dL POC Glucose (mg/dL) (75-99) mg/dL AST 39 H (14-36) U/L ALT 77 H (9-52) U/L Total Protein 6.1 L (6.3-8.2) g/dL Albumin 3.3 L (3.5-5.0) g/dL Stool Occult Blood (Negative) Crossmatch 11/28/16 11/28/16 11/28/16 Range/Units 07:16 08:48 10:16 WBC (3.8-10.6) k/uL Neutrophils # (1.3-7.7) k/uL Lymphocytes # (1.0-4.8) k/uL APTT (22.0-30.0) sec BUN (7-17) mg/dL Glucose (74-99) mg/dL POC Glucose (mg/dL) 274 H 269 H 214 H (75-99) mg/dL AST (14-36) U/L ALT (9-52) U/L Total Protein (6.3-8.2) g/dL Albumin (3.5-5.0) g/dL Stool Occult Blood (Negative) Crossmatch 11/28/16 11/28/16 Range/Units 11:04 12:20 WBC (3.8-10.6) k/uL Neutrophils # (1.3-7.7) k/uL Lymphocytes # (1.0-4.8) k/uL APTT (22.0-30.0) sec BUN (7-17) mg/dL Glucose (74-99) mg/dL POC Glucose (mg/dL) 165 H 144 H (75-99) mg/dL AST (14-36) U/L ALT (9-52) U/L Total Protein (6.3-8.2) g/dL Albumin (3.5-5.0) g/dL Stool Occult Blood (Negative) Crossmatch Microbiology - Last 24 Hours (Table) 11/26/16 14:00 Urine Culture - Final Urine,Clean Catch 11/26/16 01:40 Nasal Screen MRSA/MSSA ([facility]) - Final Nasal Swab Assessment and Plan Plan: 1. [Chest pain with acute non-STEMI, troponin 0.867, status post cardiac catheterization with severe multivessel CAD]. CABG pending. 2. [Shortness of breath possibly multifactorial, acute exacerbation COPD as well as CAD]. 3. [Leukocytosis, suspect reactive]. 4. [Anemia, normocytic, of chronic disease]. 5. [Diabetes mellitus type 2, hemoglobin A1c 9.9], on insulin drip ,Outpatient diabetic education classes. 6. [Obesity, BMI 42.8]. 7. [History of COPD and paroxysmal intermittent asthma]. 8. History of CAD with stent, [place] 9. Essential hypertension 11. Hyperlipidemia 12. Remote history of nicotine dependence Plan: Continue on current medication regime , Xanax, statin, monitoring and symptomatic treatment. Maintain insulin drip with insulin titration protocol. Surgery room staff in [place] to pick patient up for CABG now. Follow with multiple consults closely. Further recommendations to follow. The impression and plan of care has been dictated as directed. : I performed a H&P examination of this patient and discussed the same with the dictator. I agree with the dictator's note. Any additional findings/opinions/ etc. will be noted.
[2016-11-28 13:12] LABS: Glucose,Whole Blood 139 mg/dL (75-99)
[2016-11-28] MEDS: methylPREDNISolone SOD SUCCI 40 MG/ML 1 ML VIAL IV SCH (13:35)
[2016-11-28] MEDS: LISINOPRIL 10 MG TAB PO SCH (13:37)
[2016-11-28] MEDS: MUPIROCIN 2% OINT 22 GM TUBE NASAL SCH (13:38)
[2016-11-28] MEDS: NYSTATIN 100,000 UNIT/ML SUSP 500,000 UNIT/5 ML CUP PO SCH (13:39)
[2016-11-28 14:07] LABS: Glucose,Whole Blood 133 mg/dL (75-99)
[2016-11-28 15:02] LABS: Glucose,Whole Blood 132 mg/dL (75-99)
[2016-11-28] MEDS ORDERED: Magnesium Replacement Protocol 1 EACH MISC MISCELLANE PRN (15:14)
[2016-11-28] MEDS ORDERED: Potassium Replacement Protocol 1 EACH MISC MISCELLANE PRN (15:14)
[2016-11-28] MEDS ORDERED: ONDANSETRON 4 MG/2 ML VIAL IVP PRN (15:14)
[2016-11-28] MEDS ORDERED: METOCLOPRAMIDE 5 MG/ML 2 ML VIAL IVP PRN (15:14)
[2016-11-28] MEDS ORDERED: MORPHINE SULFATE 2 MG/ML SYRINGE IVP PRN (15:14)
[2016-11-28] MEDS ORDERED: BENZOCAINE/MENTHOL LOZENG 1 EACH LOZENGE MUCOUS MEM PRN (15:14)
[2016-11-28] MEDS ORDERED: CALCIUM GLUCONATE 2,000 MG in SODIUM CHLORIDE 0.9% 100 ML IVPB PRN (15:14)
[2016-11-28] MEDS ORDERED: Phosphorus Replacement Protoco 1 EACH MISC MISCELLANE PRN (15:14)
[2016-11-28] MEDS ORDERED: NITROGLYCERIN-D5W PMX 50 MG in DEXTROSE/WATER 1 250ML.BAG IV SCH (15:14)
[2016-11-28 15:57] LABS: Glucose,Whole Blood 108 mg/dL (75-99)
[2016-11-28] MEDS: ALBUMIN HUMAN 5% 250 ML in EMPTY BAG 1 BAG IVPB PRN ×2 (16:00→16:41)
[2016-11-28 16:20] LABS: Ionized Calcium 4.9 mg/dL (4.5-5.3)
[2016-11-28 16:29] LABS: ALT 248 U/L (9-52); AST 529 U/L (14-36); Alkaline Phosphatase 30 U/L (38-126); Anion Gap 7 mmol/L; Basophils # (A) 0.1 k/uL (0-0.2); Basophils % (A) 0 %; Blood Urea Nitrogen 27 mg/dL (7-17); CH 30.8; CHCM 32.5; Calcium 7.7 mg/dL (8.4-10.2); Carbon Dioxide 23 mmol/L (22-30); Chloride 109 mmol/L (98-107); Eosinophils # (A) 0.2 k/uL (0-0.7); Eosinophils % (A) 1 %; Glucose 108 mg/dL (74-99); HCT 26.1 % (34.0-46.0); HDW 2.54; Immature Gran Flag Slight; Luc # (Auto) 0.05; Luc % (Auto) 0; Lymphocytes # (A) 1.6 k/uL (1.0-4.8); Lymphocytes % (A) 7 %; MCH 31.2 pg (25.0-35.0); MCHC 32.8 g/dL (31.0-37.0); MCV 95.1 fL (80.0-100.0); Mean Platelet Volume 8.4; Monocytes # (A) 0.9 k/uL (0-1.0); Monocytes % (A) 4 %; Neutrophils # (A) 20.6 k/uL (1.3-7.7); Neutrophils % (A) 88 %; Non-African American GFR(MDRD) >60 (>60 ml/min/1.73 sqM); Potassium 3.9 mmol/L (3.5-5.1); RBC 2.75 m/uL (3.80-5.40); RDW 13.8 % (11.5-15.5); Sodium 139 mmol/L (137-145); Total Bilirubin 1.1 mg/dL (0.2-1.3); Total Protein 4.7 g/dL (6.3-8.2); WBC 23.4 k/uL (3.8-10.6); WBC (Perox) 24.59
[2016-11-28 16:31] LABS: HGB 8.6 gm/dL (11.4-16.0)
[2016-11-28] MEDS: CLEVIDIPINE BUTYRATE 25 MG in EMPTY BAG 1 BAG IV SCH ×2 (16:31→17:13)
[2016-11-28] MEDS: LACTATED RINGERS 1,000 ML IV SCH (16:31)
[2016-11-28] MEDS: ceFAZolin 2 GM in SODIUM CHLORIDE 0.9% 100 ML IVPB SCH (16:33)
[2016-11-28 16:41] LABS: INR 2.2 (<1.1); Partial Thromboplastin Time 22.2 sec (22.0-30.0); Prothrombin Time 20.9 sec (9.0-12.0)
[2016-11-28 16:42] LABS: Glucose,Whole Blood 114 mg/dL (75-99)
--- NOTE | 2016-11-28 16:42 | XR ---
EXAMINATION TYPE: XR chest 1V portable DATE OF EXAM: 11/28/2016 4:35 PM Comparison: 11/26/2016 Clinical History: 66 year-old female post Operative Cardiac Surgery Findings: Heart is mildly enlarged. Median sternotomy wires and a plate and screw fixation is present with post -CABG clips in the mediastinum. Diffuse interstitial prominence. Some patchy left midlung and left lo wer lung opacities likely atelectasis. There may also be a trace left pleural effusion. Left-sided ap ical chest tube present without appreciable pneumothorax. ET tube is low measuring 1.3 cm from the clint. A right IJ [place] catheter is present with cathet er tip far peripherally probably in a segmental right lower lobe pulmonary arterial branch. NG tube c ourses below the diaphragm. Impression: 1. Postoperative changes. ET tube is slightly low measuring 1.3 cm from the clint. This can be withd rawn by 1.5 to 2.0 cm and reassessed at follow-up. 2. [place] catheter tip far peripheral in position probably in a segmental right lower lobe pulmona ry arterial branch. 3. Patchy left mid and lower lung opacities likely atelectasis. Trace left pleural effusion.
--- NOTE | 2016-11-28 16:44 | XR ---
EXAMINATION TYPE: XR chest 1V portable DATE OF EXAM: 11/28/2016 4:35 PM Comparison: Earlier today Clinical History: 66-year-old female post PA withdrawal Findings: Interval withdrawal of the [place]-Gregoria catheter with tip now likely in the proximal right pulmonary art nehemiah. Otherwise, ET tube show stable positioning 1.3 cm from the clint. Left chest tube in place as w ell as a mediastinal drain now better visualized. NG tube is down. Patchy left mid and lower lung opa cities and trace left pleural effusion also unchanged. Impression: 1. Interval repositioning of the [place]-Gregoria catheter with tip now likely at the proximal right main pu lmonary artery. 2. ET tube remains low in position 1.3 cm from the clint. Again, recommend 1.5 to 2.0 cm of withdraw al and reassessment at follow-up. 3. Otherwise, stable patchy densities on the left, likely atelectasis, and a trace left effusion.
[2016-11-28 17:07] LABS: Glucose,Whole Blood 138 mg/dL (75-99)
[2016-11-28] MEDS: POTASSIUM CHLORIDE 10 MEQ in WATER FOR INJECTION 1 100ML.BAG IVPB SCH ×2 (17:19→19:04)
[2016-11-28 17:46] LABS: ABG HCO3 22 mmol/L (21-25); ABG PCO2 37 mmHg (35-45); ABG PH 7.39 (7.35-7.45); ABG PO2 303 mmHg (83-108); ABG TCO2 23 mmol/L (19-24)
[2016-11-28 18:01] LABS: Glucose,Whole Blood 134 mg/dL (75-99)
[2016-11-28] MEDS: ACETAMINOPHEN IV (For NPO) 1,000 MG in EMPTY BAG 1 BAG IVPB SCH ×2 (18:12→23:49)
[2016-11-28] MEDS: PROPOFOL 500 MG in EMPTY BAG 1 BAG IV SCH ×2 (19:20→21:47)
[2016-11-28 19:26] LABS: Glucose,Whole Blood 128 mg/dL (75-99)
[2016-11-28 19:39] LABS: Basophils % (A) 0 %; CH 30.7; CHCM 33.4; Eosinophils % (A) 0 %; HCT 23.4 % (34.0-46.0); Luc # (Auto) 0.13; Luc % (Auto) 1; Lymphocytes # (A) 1.5 k/uL (1.0-4.8); Lymphocytes % (A) 9 %; MCH 30.9 pg (25.0-35.0); MCHC 33.4 g/dL (31.0-37.0); MCV 92.5 fL (80.0-100.0); Mean Platelet Volume 8.9; Monocytes # (A) 1.1 k/uL (0-1.0); Monocytes % (A) 6 %; Neutrophils # (A) 14.7 k/uL (1.3-7.7); Neutrophils % (A) 84 %; RBC 2.53 m/uL (3.80-5.40); RDW 13.9 % (11.5-15.5); WBC 17.4 k/uL (3.8-10.6); WBC (Perox) 17.68
[2016-11-28 20:02] LABS: Glucose,Whole Blood 139 mg/dL (75-99)
[2016-11-28 20:02] LABS: HGB 7.8 gm/dL (11.4-16.0)
[2016-11-28 21:09] LABS: Glucose,Whole Blood 140 mg/dL (75-99)
[2016-11-28 22:16] LABS: Glucose,Whole Blood 162 mg/dL (75-99)
[2016-11-28 22:28] LABS: Basophils % (A) 0 %; CH 30.5; CHCM 33.2; Eosinophils # (A) 0.1 k/uL (0-0.7); Eosinophils % (A) 1 %; HCT 24.9 % (34.0-46.0); HGB 8.3 gm/dL (11.4-16.0); Luc # (Auto) 0.13; Luc % (Auto) 1; Lymphocytes # (A) 2.4 k/uL (1.0-4.8); Lymphocytes % (A) 14 %; MCH 30.7 pg (25.0-35.0); MCHC 33.3 g/dL (31.0-37.0); MCV 92.3 fL (80.0-100.0); Mean Platelet Volume 6.9; Monocytes % (A) 6 %; Neutrophils % (A) 79 %; RDW 13.8 % (11.5-15.5); WBC 17.6 k/uL (3.8-10.6); WBC (Perox) 18.31
[2016-11-28 22:34] LABS: Ionized Calcium 4.9 mg/dL (4.5-5.3)
[2016-11-28 22:36] LABS: INR 1.2 (<1.1); Partial Thromboplastin Time 22.3 sec (22.0-30.0)
[2016-11-28 22:40] LABS: Anion Gap 7 mmol/L; Blood Urea Nitrogen 26 mg/dL (7-17); Calcium 7.8 mg/dL (8.4-10.2); Carbon Dioxide 25 mmol/L (22-30); Chloride 105 mmol/L (98-107); Glucose 151 mg/dL (74-99); Non-African American GFR(MDRD) >60 (>60 ml/min/1.73 sqM); Potassium 4.3 mmol/L (3.5-5.1); Sodium 137 mmol/L (137-145)
[2016-11-28 23:12] LABS: Glucose,Whole Blood 155 mg/dL (75-99)
[2016-11-29] MEDS: ceFAZolin 2 GM in SODIUM CHLORIDE 0.9% 100 ML IVPB SCH ×2 (00:11→10:35)
[2016-11-29] MEDS: HEPARIN SODIUM,PORCINE 5,000 UNIT/ML 1 ML VIAL SQ SCH ×3 (00:11→15:09)
[2016-11-29] MEDS: IPRATROPIUM-ALBUTEROL 3 ML NEB INHALATION SCH ×5 (00:31→20:41)
[2016-11-29 01:06] LABS: Glucose,Whole Blood 114 mg/dL (75-99)
[2016-11-29 01:22] LABS: ABG PCO2 37 mmHg (35-45); ABG PO2 104 mmHg (83-108)
[2016-11-29 01:23] LABS: ABG Base Excess -1.7 mmol/L; ABG HCO3 22 mmol/L (21-25); ABG TCO2 24 mmol/L (19-24)
[2016-11-29 02:14] LABS: Glucose,Whole Blood 126 mg/dL (75-99)
[2016-11-29 03:21] LABS: Glucose,Whole Blood 125 mg/dL (75-99)
[2016-11-29 04:02] LABS: Glucose,Whole Blood 127 mg/dL (75-99)
[2016-11-29 05:20] LABS: Glucose,Whole Blood 130 mg/dL (75-99)
[2016-11-29 05:28] LABS: Basophils % (A) 0 %; CHCM 33.4; Eosinophils # (A) 0.2 k/uL (0-0.7); Eosinophils % (A) 1 %; HCT 27.5 % (34.0-46.0); HDW 2.53; HGB 8.8 gm/dL (11.4-16.0); Luc # (Auto) 0.15; Luc % (Auto) 1; Lymphocytes # (A) 2.1 k/uL (1.0-4.8); Lymphocytes % (A) 13 %; MCH 29.9 pg (25.0-35.0); MCHC 32.1 g/dL (31.0-37.0); MCV 93.1 fL (80.0-100.0); Mean Platelet Volume 8.4; Monocytes % (A) 6 %; Neutrophils # (A) 12.8 k/uL (1.3-7.7); Neutrophils % (A) 79 %; RBC 2.95 m/uL (3.80-5.40); RDW 14.1 % (11.5-15.5); WBC 16.3 k/uL (3.8-10.6); WBC (Perox) 16.64
[2016-11-29 05:31] LABS: Ionized Calcium 4.9 mg/dL (4.5-5.3)
[2016-11-29 05:39] LABS: ALT 181 U/L (9-52); AST 133 U/L (14-36); Alkaline Phosphatase 38 U/L (38-126); Anion Gap 4 mmol/L; Blood Urea Nitrogen 23 mg/dL (7-17); Calcium 7.9 mg/dL (8.4-10.2); Carbon Dioxide 28 mmol/L (22-30); Chloride 107 mmol/L (98-107); Glucose 122 mg/dL (74-99); Non-African American GFR(MDRD) >60 (>60 ml/min/1.73 sqM); Potassium 4.2 mmol/L (3.5-5.1); Sodium 139 mmol/L (137-145); Total Bilirubin 1.2 mg/dL (0.2-1.3); Total Protein 4.7 g/dL (6.3-8.2)
[2016-11-29] MEDS: ACETAMINOPHEN IV (For NPO) 1,000 MG in EMPTY BAG 1 BAG IVPB SCH ×3 (06:15→18:06)
--- NOTE | 2016-11-29 06:23 | PN ---
DATE OF SERVICE: 11/28/2016 This 66-year-old woman who was admitted after CAD, CABG is being closely monitored in the ICU. The patient is mechanically ventilated and sedated. On exam, pulse is 47, blood pressure 167/70, respirations 16, temperature 97 degrees, pulse ox 98% on 2 L. HEENT: Conjunctivae normal. Oral mucosa moist. CARDIOVASCULAR: S1 and S2 muffled. RESPIRATORY: No rhonchi or crackles. On mechanical ventilation. ABDOMEN: Soft. NERVOUS SYSTEM: Mechanically sedated. LABS: WBC 23.4 and hemoglobin 8.6. ASSESSMENT: 1. Coronary artery disease, status post coronary artery bypass grafting. 2. Acute non- ST segment elevation myocardial infarction. Troponin 0.867. 3. Status post cardiac catheterization and severe multivessel disease. 4. Shortness of breath, multifactorial, possible chronic obstructive pulmonary disease as well as coronary artery disease. 5. Leukocytosis, reactive. 6. Anemia, normocytic, chronic disease. 7. Diabetes mellitus type 2. Hemoglobin A1c 9.9. 8. Obesity, body mass index 42.8. 9. History of chronic obstructive pulmonary disease. 10. History of coronary artery disease with stent, myocardial infarction. 11. Essential hypertension. 12. Hyperlipidemia. 13. Remote history of nicotine dependence. RECOMMENDATIONS AND DISCUSSION: Recommend to continue current medications, continue with mechanical ventilation monitor blood sugars closely. White count is still elevated. Repeat labs in the morning. Further recommendations to follow. MTDD
--- NOTE | 2016-11-29 08:30 | XR ---
EXAMINATION TYPE: XR chest 1V portable DATE OF EXAM: 11/29/2016 6:55 AM HISTORY: Post Operative Cardiac Surgery. REFERENCE: Previous study dated 11/28/2016. FINDINGS: There has been a midline sternotomy. There is a left pleural drain in place. The patient lim s been extubated. The NG tube is been removed. [place] catheter is in place via a right internal ju gular approach. Its tip is in the right main pulmonary artery. There is worsening left-sided airspace disease. The right lung is clear. The heart is enlarged. Suspe ct a small left effusion. IMPRESSION: 1. POSTOPERATIVE CHANGE. 2. WORSENING LEFT-SIDED AIRSPACE DISEASE. 3. SMALL LEFT EFFUSION.
[2016-11-29 08:46] LABS: Glucose,Whole Blood 133 mg/dL (75-99)
[2016-11-29] MEDS: ASPIRIN 325 MG TAB PO SCH (08:54)
[2016-11-29] MEDS: ATORVASTATIN 40 MG TAB PO SCH (08:55)
[2016-11-29] MEDS: PANTOPRAZOLE 40 MG/10 ML VIAL IVP SCH (08:55)
[2016-11-29] MEDS: CLOPIDOGREL 75 MG TAB PO SCH (08:55)
--- NOTE | 2016-11-29 09:09 | P.PN ---
Subjective This is a very pleasant 66-year-old female patient who follows with Dr. Gonzales as her primary care physician. she has a history of hypertension, hyperlipidemia,diabetes mellitus, coronary artery disease with previous stent placements, morbid obesity. She also has a history of chronic obstructive pulmonary disease from previous smoking history and follows with Dr. Monique in our office for the same. She is maintained on Symbicort, Spiriva and albuterol. She presented here yesterday with complaints of increasing shortness of breath on minimal exertion. She also had some back discomfort radiating down her arms. She is found to be a non-ST segment elevation myocardial infarction and the plan is for cardiac catheterization today.she is seen in consultation on the selective care unit. She is currently awake and alert in no acute distress. Her chest x-ray shows evidence of chronic obstructive disease, cardiomegaly and bilateral atelectasis. No significant change from previous. She is maintaining good O2 saturations in the upper 90s on room air. She's been afebrile. She denies any current chest discomfort. No back pain. No palpitations, lightheadedness or dizziness. On 11/27/2016 the patient is being seen in follow-up. The patient has undergone the cardiac catheterization and the patient has progression of disease in the proximal in the mid LAD and significant disease in the first obtuse marginal branch a chronically occluded right coronary artery with collaterals from the left system. Based on that, the patient will be taken to the operating room for a coronary artery bypass surgery tomorrow. As mentioned earlier, the patient has COPD and her baseline FEV1 is in order of 53-54% of predicted consistent with moderately severe disease. Nevertheless, her disease not in acute exacerbation. Her white cell count slightly elevated probably a steroid effect. No signs of septicemia. She is able to climb a flight of stairs without any major difficulties. On 11/29/2016 the patient is being seen postop day #1. She underwent three- vessel bypass surgery with WELCH to LAD and saphenous vein graft to OM and PDA. Patient was weaned off the mechanical ventilator and she was extubated yesterday without any major difficulties. This morning she is on oxygen at 2 L/ m nasal cannula. As mentioned earlier she has moderate to severe COPD and her FEV1 is no order a 53% of predicted. She is a bit bronchospastic and wheezy and she is using DuoNeb nebulized treatments around the clock. She has a distended and left pleural chest tube. Output from the chest tubes are essentially has been 11 50 mL since surgery. Hemoglobin is stable at 8.8. The patient is hemodynamically stable. The Mikado-Gregoria catheter was removed earlier this morning. Earlier than that the patient had a cardiac output of 6.1 with an index of 2.8.. Pressures were 25/18. The patient has adequate urine output. Pain is under good control. She is on an insulin drip at 1.5 units an hour. The patient was on Cleviprex drip yesterday which was weaned off and discontinued and she is currently on nitroglycerin drip which will be essentially weaned off and discontinued. She is awake. She is sitting up on a chair. No other significant events overnight. The chest x-ray from this morning shows adequate expansion of both lungs. There is some atelectatic changes and small effusion the left lung base. Chest tubes in good location. Sternum stable clean and intact. The sternal clips were visualized. Objective - Vital Signs Vital signs: Vital Signs Temp 97.4 F L 11/28/16 20:00 Pulse 83 11/29/16 07:07 Resp 24 11/29/16 07:00 BP 111/50 11/29/16 07:00 Pulse Ox 100 11/29/16 07:00 Intake & Output 11/28/16 11/29/16 11/29/16 18:59 06:59 18:59 Intake Total 070.238 0330.391 51.5 Output Total 1960 1980 Balance -1019.483 -756.609 51.5 Intake: IV 0 866.5 51.5 ACETAMINOPHEN IV (For NPO 200 ) 1,000 mg In Empty Bag 1 bag @ 400 mls/hr IVPB Q6HR KAREN Rx#:[id number] Lactated Ringers 1,000 ml 550 50 @ 50 mls/hr IV .Q20H KAREN Rx#:[id number] Nitroglycerin-D5w Pmx 50 16.5 1.5 mg In Dextrose/Water 1 250ml.bag @ 5 MCG/MIN 1.5 mls/hr IV .Q24H KAREN Rx#: [id number] ceFAZolin 2 gm In Sodium 100 Chloride 0.9% 30 ml @ 60 mls/hr IVPB ONCE PRN Rx#: [id number] Intake, IV Titration 940.517 326.891 Amount ACETAMINOPHEN IV (For NPO 100 ) 1,000 mg In Empty Bag 1 bag @ 400 mls/hr IVPB Q6HR KAREN Rx#:[id number] Albumin Human 5% 250 ml 500 In Empty Bag 1 bag @ 250 mls/hr IVPB Q1HR PRN Rx#: [id number] Clevidipine Butyrate 25 3.567 mg In Empty Bag 1 bag @ 1 MG/HR 2 mls/hr IV .Q24H KAREN Rx#:[id number] Insulin Regular 100 unit 14.671 In Sodium Chloride 0.9% 100 ml @ Per Protocol IV .Q0M KAREN Rx#:[id number] Insulin Regular 100 unit 90.517 In Sodium Chloride 0.9% 100 ml @ Titrate IV .Q0M KAREN Rx#:[id number] Lactated Ringers 1,000 ml 150 50 @ 50 mls/hr IV .Q20H KAREN Rx#:[id number] Potassium Chloride 10 meq 100 100 In Water For Injection 1 100ml.bag @ 100 mls/hr IVPB Q1H KAREN Rx#: [id number] Propofol 500 mg In Empty 58.653 Bag 1 bag @ Titrate IV . Q0M KAREN Rx#:[id number] ceFAZolin 2 gm In Sodium 100 Chloride 0.9% 100 ml @ 100 mls/hr IVPB Q8HR KAREN Rx#:[id number] Oral 30 Output: Chest Tube Drainage 320 950 Chest Tube Left Pleural/ 320 950 Mediastinal Drainage 100 150 Right Knee 100 150 Urine 640 880 Estimated Blood Loss 900 Other: Voiding Method Indwelling Catheter Indwelling Catheter ABP, PAP, CO, CI - Last Documented Arterial Blood Pressure 105/96 Pulmonary Artery Pressure 34/21 Cardiac Output 6.3 Cardiac Index 2.9 - Exam Head exam was generally normal. There was no scleral icterus or corneal arcus. Mucous membranes were moist. Neck is short and supple and there is significant crowding of the posterior oropharynx. The patient has a right IJ Cordis in place. Lungs sounds are diminished bilaterally especially in the lung bases and there is some progression of the expiratory phase of breathing and scattered expiratory wheezes bilaterally. Heart sounds are regular, positive S1 -S2 and his sternum stable clean and intact. No rubs or any significant murmurs appreciated. All of the chest tubes are in place. Abdomen is obese soft and the organs cannot be palpated accurately because of her morbid obesity. Extremities are within normal limits. No cyanosis or clubbing. Surgical wound sites are all dry clean and intact. Neurologically, the patient is awake and alert. - Labs CBC & Chem 7: 11/29/16 05:15 11/29/16 05:15 Labs: Abnormal Lab Results - Last 24 Hours (Table) 11/27/16 11/28/16 11/28/16 Range/Units 09:32 10:16 11:04 WBC (3.8-10.6) k/uL RBC (3.80-5.40) m/uL Hgb (11.4-16.0) gm/dL Hct (34.0-46.0) % Plt Count (150-450) k/uL Neutrophils # (1.3-7.7) k/uL Monocytes # (0-1.0) k/uL PT (9.0-12.0) sec ABG pO2 (83-108) mmHg ABG O2 Saturation (94-97) % Chloride (98-107) mmol/L BUN (7-17) mg/dL Glucose (74-99) mg/dL POC Glucose (mg/dL) 214 H 165 H (75-99) mg/dL Calcium (8.4-10.2) mg/dL AST (14-36) U/L ALT (9-52) U/L Alkaline Phosphatase (38-126) U/L Total Protein (6.3-8.2) g/dL Albumin (3.5-5.0) g/dL Crossmatch See Detail 11/28/16 11/28/16 11/28/16 Range/Units 12:20 12:58 14:04 WBC (3.8-10.6) k/uL RBC (3.80-5.40) m/uL Hgb (11.4-16.0) gm/dL Hct (34.0-46.0) % Plt Count (150-450) k/uL Neutrophils # (1.3-7.7) k/uL Monocytes # (0-1.0) k/uL PT (9.0-12.0) sec ABG pO2 (83-108) mmHg ABG O2 Saturation (94-97) % Chloride (98-107) mmol/L BUN (7-17) mg/dL Glucose (74-99) mg/dL POC Glucose (mg/dL) 144 H 139 H 133 H (75-99) mg/dL Calcium (8.4-10.2) mg/dL AST (14-36) U/L ALT (9-52) U/L Alkaline Phosphatase (38-126) U/L Total Protein (6.3-8.2) g/dL Albumin (3.5-5.0) g/dL Crossmatch 11/28/16 11/28/16 11/28/16 Range/Units 14:59 15:56 16:00 WBC 23.4 H (3.8-10.6) k/uL RBC 2.75 L (3.80-5.40) m/uL Hgb 8.6 L D (11.4-16.0) gm/dL Hct 26.1 L (34.0-46.0) % Plt Count 58 L D (150-450) k/uL Neutrophils # 20.6 H (1.3-7.7) k/uL Monocytes # (0-1.0) k/uL PT (9.0-12.0) sec ABG pO2 (83-108) mmHg ABG O2 Saturation (94-97) % Chloride (98-107) mmol/L BUN (7-17) mg/dL Glucose (74-99) mg/dL POC Glucose (mg/dL) 132 H 108 H (75-99) mg/dL Calcium (8.4-10.2) mg/dL AST (14-36) U/L ALT (9-52) U/L Alkaline Phosphatase (38-126) U/L Total Protein (6.3-8.2) g/dL Albumin (3.5-5.0) g/dL Crossmatch 11/28/16 11/28/16 11/28/16 Range/Units 16:00 16:00 16:13 WBC (3.8-10.6) k/uL RBC (3.80-5.40) m/uL Hgb (11.4-16.0) gm/dL Hct (34.0-46.0) % Plt Count (150-450) k/uL Neutrophils # (1.3-7.7) k/uL Monocytes # (0-1.0) k/uL PT 20.9 H (9.0-12.0) sec ABG pO2 303 H (83-108) mmHg ABG O2 Saturation 100.0 H (94-97) % Chloride 109 H (98-107) mmol/L BUN 27 H (7-17) mg/dL Glucose 108 H (74-99) mg/dL POC Glucose (mg/dL) (75-99) mg/dL Calcium 7.7 L (8.4-10.2) mg/dL AST 529 H (14-36) U/L ALT 248 H (9-52) U/L Alkaline Phosphatase 30 L (38-126) U/L Total Protein 4.7 L (6.3-8.2) g/dL Albumin 2.6 L (3.5-5.0) g/dL Crossmatch 11/28/16 11/28/16 11/28/16 Range/Units 16:21 17:05 17:59 WBC (3.8-10.6) k/uL RBC (3.80-5.40) m/uL Hgb (11.4-16.0) gm/dL Hct (34.0-46.0) % Plt Count (150-450) k/uL Neutrophils # (1.3-7.7) k/uL Monocytes # (0-1.0) k/uL PT (9.0-12.0) sec ABG pO2 (83-108) mmHg ABG O2 Saturation (94-97) % Chloride (98-107) mmol/L BUN (7-17) mg/dL Glucose (74-99) mg/dL POC Glucose (mg/dL) 114 H 138 H 134 H (75-99) mg/dL Calcium (8.4-10.2) mg/dL AST (14-36) U/L ALT (9-52) U/L Alkaline Phosphatase (38-126) U/L Total Protein (6.3-8.2) g/dL Albumin (3.5-5.0) g/dL Crossmatch 11/28/16 11/28/16 11/28/16 Range/Units 19:06 19:15 20:00 WBC 17.4 H (3.8-10.6) k/uL RBC 2.53 L (3.80-5.40) m/uL Hgb 7.8 L (11.4-16.0) gm/dL Hct 23.4 L (34.0-46.0) % Plt Count (150-450) k/uL Neutrophils # 14.7 H (1.3-7.7) k/uL Monocytes # 1.1 H (0-1.0) k/uL PT (9.0-12.0) sec ABG pO2 (83-108) mmHg ABG O2 Saturation (94-97) % Chloride (98-107) mmol/L BUN (7-17) mg/dL Glucose (74-99) mg/dL POC Glucose (mg/dL) 128 H 139 H (75-99) mg/dL Calcium (8.4-10.2) mg/dL AST (14-36) U/L ALT (9-52) U/L Alkaline Phosphatase (38-126) U/L Total Protein (6.3-8.2) g/dL Albumin (3.5-5.0) g/dL Crossmatch 11/28/16 11/28/16 11/28/16 Range/Units 21:07 22:10 22:10 WBC 17.6 H (3.8-10.6) k/uL RBC 2.70 L (3.80-5.40) m/uL Hgb 8.3 L (11.4-16.0) gm/dL Hct 24.9 L (34.0-46.0) % Plt Count (150-450) k/uL Neutrophils # 14.0 H (1.3-7.7) k/uL Monocytes # (0-1.0) k/uL PT (9.0-12.0) sec ABG pO2 (83-108) mmHg ABG O2 Saturation (94-97) % Chloride (98-107) mmol/L BUN 26 H (7-17) mg/dL Glucose 151 H (74-99) mg/dL POC Glucose (mg/dL) 140 H (75-99) mg/dL Calcium 7.8 L (8.4-10.2) mg/dL AST (14-36) U/L ALT (9-52) U/L Alkaline Phosphatase (38-126) U/L Total Protein (6.3-8.2) g/dL Albumin (3.5-5.0) g/dL Crossmatch 11/28/16 11/28/16 11/29/16 Range/Units 22:14 23:11 00:10 WBC (3.8-10.6) k/uL RBC (3.80-5.40) m/uL Hgb (11.4-16.0) gm/dL Hct (34.0-46.0) % Plt Count (150-450) k/uL Neutrophils # (1.3-7.7) k/uL Monocytes # (0-1.0) k/uL PT (9.0-12.0) sec ABG pO2 (83-108) mmHg ABG O2 Saturation 98.0 H (94-97) % Chloride (98-107) mmol/L BUN (7-17) mg/dL Glucose (74-99) mg/dL POC Glucose (mg/dL) 162 H 155 H (75-99) mg/dL Calcium (8.4-10.2) mg/dL AST (14-36) U/L ALT (9-52) U/L Alkaline Phosphatase (38-126) U/L Total Protein (6.3-8.2) g/dL Albumin (3.5-5.0) g/dL Crossmatch 11/29/16 11/29/16 11/29/16 Range/Units 01:05 02:12 03:19 WBC (3.8-10.6) k/uL RBC (3.80-5.40) m/uL Hgb (11.4-16.0) gm/dL Hct (34.0-46.0) % Plt Count (150-450) k/uL Neutrophils # (1.3-7.7) k/uL Monocytes # (0-1.0) k/uL PT (9.0-12.0) sec ABG pO2 (83-108) mmHg ABG O2 Saturation (94-97) % Chloride (98-107) mmol/L BUN (7-17) mg/dL Glucose (74-99) mg/dL POC Glucose (mg/dL) 114 H 126 H 125 H (75-99) mg/dL Calcium (8.4-10.2) mg/dL AST (14-36) U/L ALT (9-52) U/L Alkaline Phosphatase (38-126) U/L Total Protein (6.3-8.2) g/dL Albumin (3.5-5.0) g/dL Crossmatch 11/29/16 11/29/16 11/29/16 Range/Units 04:00 05:15 05:15 WBC 16.3 H (3.8-10.6) k/uL RBC 2.95 L (3.80-5.40) m/uL Hgb 8.8 L (11.4-16.0) gm/dL Hct 27.5 L (34.0-46.0) % Plt Count (150-450) k/uL Neutrophils # 12.8 H (1.3-7.7) k/uL Monocytes # (0-1.0) k/uL PT (9.0-12.0) sec ABG pO2 (83-108) mmHg ABG O2 Saturation (94-97) % Chloride (98-107) mmol/L BUN 23 H (7-17) mg/dL Glucose 122 H (74-99) mg/dL POC Glucose (mg/dL) 127 H (75-99) mg/dL Calcium 7.9 L (8.4-10.2) mg/dL AST 133 H (14-36) U/L ALT 181 H (9-52) U/L Alkaline Phosphatase (38-126) U/L Total Protein 4.7 L (6.3-8.2) g/dL Albumin 2.7 L (3.5-5.0) g/dL Crossmatch 11/29/16 11/29/16 Range/Units 05:19 08:44 WBC (3.8-10.6) k/uL RBC (3.80-5.40) m/uL Hgb (11.4-16.0) gm/dL Hct (34.0-46.0) % Plt Count (150-450) k/uL Neutrophils # (1.3-7.7) k/uL Monocytes # (0-1.0) k/uL PT (9.0-12.0) sec ABG pO2 (83-108) mmHg ABG O2 Saturation (94-97) % Chloride (98-107) mmol/L BUN (7-17) mg/dL Glucose (74-99) mg/dL POC Glucose (mg/dL) 130 H 133 H (75-99) mg/dL Calcium (8.4-10.2) mg/dL AST (14-36) U/L ALT (9-52) U/L Alkaline Phosphatase (38-126) U/L Total Protein (6.3-8.2) g/dL Albumin (3.5-5.0) g/dL Crossmatch Assessment and Plan Plan: Assessment 1 multivessel coronary artery disease not abnormal to percutaneous revascularization/angioplasty/stenting. Patient is status post non-ST segment elevation myocardial infarction. The patient is status post three-vessel bypass surgery with WELCH to LAD and the patient is postop day #1. The patient was weaned off the mechanical ventilator and she was extubated without any major difficulties pH remains hemodynamically stable. She is on no pressors. Cardiac output is adequate. Urine output is adequate. Chest x-ray from this morning shows postsurgical changes without any acute complications. 2 COPD moderate to severe with a baseline FEV1 of 53-54% of predicted. 3 morbid obesity 4 hypertension 6 hyperlipidemia 7 smoker 8 post operative anemia, hemoglobin is stable 9 postoperative chest wall pain well controlled 10 postoperative hyperglycemic currently on 1.5 units of insulin for blood sugar control Plan Aggressive pulmonary toileting. Use of incentive spirometer. DuoNeb neb last treatment [id number]. Pain control. Mikado-Gregoria catheter is already been removed. Wean off nitroglycerin drip and discontinue. The patient on aspirin and diuretics. The patient on beta blockers. Gradually increase his level of activity as tolerated. Keep insulin drip for today and we'll switch her to a size scale coverage within next 24 hours. We'll continue to follow. The patient be staying in ICU for 24 hours.
--- NOTE | 2016-11-29 09:13 | OP ---
DATE OF SERVICE: 11/28/2016 SURGEON: LORENZO CORRAL MD SAFETY PERSON: PREOPERATIVE DIAGNOSIS: Coronary artery disease. POSTOPERATIVE DIAGNOSIS: Coronary artery disease. OPERATION: Off pump CABG x3 with left internal mammary artery graft to LAD and saphenous vein grafts to posterior descending coronary artery and obtuse marginal coronary artery with endovascular vein harvest and epiaortic ultrasonography. ANESTHESIA: General endotracheal by Dr. Pappas. ESTIMATED BLOOD LOSS: SPECIMENS REMOVED: COMPLICATIONS: OPERATIVE FINDINGS: INDICATIONS: Patient is a 66-year-old female with known coronary artery disease and previous stenting of the LAD and right coronary artery. She presented with chest pain and shortness of breath, had elevated troponins and was taken to the [facility] where she was shown to have occlusion of the right coronary artery with some collateral filling from the left system as well as tight in-stent restenosis in the proximal LAD and moderate to severe disease in the circumflex, particularly the first obtuse marginal branch. Coronary bypass surgery was recommended by Dr. Sarabia and patient was scheduled at the next available time. DESCRIPTION OF OPERATIVE PROCEDURE: Patient was brought to the operating room, placed supine on the operating table, anesthetized and intubated. [place]-Gregoria catheter was placed through the right internal jugular approach. Wall and nasogastric tubes were placed. The JONATHAN probe was placed. The anterior torso and lower extremities were sterilely prepped and draped in standard fashion. Saphenous vein was harvested using endovascular harvest technique from the right lower extremity and simultaneous sternotomy was performed. The left hemisternum was retracted upwards and the internal mammary artery harvested on vascularized pedicle, left intact on its origin from the subclavian and divided distally. Left pleural space was drained with a 32 Cambodian chest tube and standard sternal retractor was placed. The pericardium was opened in the midline and the heart exposed with pericardial sutures. The patient was systemically heparinized. The suction stabilization was used during distal anastomosis. WELCH to the LAD anastomosis was performed first. The LAD was grafted in the first part of the middle segment of the LAD as it emerged from an intramyocardial position. There was a 1.75 mm vessel of good quality. It was opened and blood flow controlled with a 1.5 mm flow-through. End-to-side anastomosis between the WELCH and the LAD was constructed with running 8-0 Prolene suture. On completion of the anastomosis, the flow-through was removed, effectively probing the proximal and distal portion of the anastomosis. Suture was tied with good result and hemostasis and the inflow opened. EDENILSON pedicle was tacked surrounding epicardium. Once the vein was ready and prepared, one piece of vein was cut to appropriate length to reach the posterior descending coronary artery, loaded on passport anastomotic connector. Epiaortic ultrasonography had been performed prior to opening the pericardium and the ascending aorta showed moderate diffuse posterior calcific plaque. Saphenous vein was anastomosed to the proximal portion of the ascending aorta in the midline using the passport anastomotic connector and wrapped around the right side of the heart to the inferior wall. Posterior descending coronary artery and distal right coronary artery were heavily calcified. We grafted the PDA distal to the palpable disease, just beyond the midportion of the PDA. Here was a 1.5 mm vessel of good quality. It was opened and blood flow controlled with a 1.5 mm flow-through and the saphenous vein anastomosis constructed with running 7-0 Prolene suture. On completion of the anastomosis, the flow-through was removed, effectively probing the proximal and distal portion using the anastomosis. Suture was tied with good result and hemostasis and the inflow was opened. Next, the second piece of saphenous vein was loaded on a second passport anastomotic connector. This was loaded. This was anastomosed to the ascending aorta to the left of midline in the mid-ascending aorta, and brought beneath the WELCH to the posterior lateral wall. The lateral wall was exposed and the first obtuse marginal coronary artery was stabilized. This was a 1.25 mm vessel of good quality, it was opened and blood flow controlled with a 1 mm flow through. Anastomosis of the saphenous vein to the OM was performed with running 7-0 Prolene suture. On completion of the anastomosis, the flow-through was removed, effectively probing the proximal and distal portion of the anastomosis. Suture was tied with good result and hemostasis. Inflow was opened and the heart was lowered into anatomic position. Good hemostasis was noted throughout. Heparin was reversed with protamine and the chest was irrigated with antibiotic solution. Once good hemostasis had been confirmed, the sternum was closed with 5 sternal wires and 3 table plates. An auxiliary plate was used on the manubrium and 2 box plates on the sternal body. With excellent sternal fixation, we then closed the fascia with 0 Ethibond and the muscle layer with 0 Vicryl, the subcutaneous fat with 2-0 Vicryl in several layers and a 3-0 Vicryl subcuticular stitch. Leg was similarly closed with layers of Vicryl suture. Mediastinum had been drained with a 36 Cambodian chest tube and sterile dressings were applied. The patient was transferred to the ICU in stable condition. JONATHAN at the end of the case showed markedly improved LV function with much better motion of the inferior wall. Patient was on no inotropic support and needed no transfusions. MTDD
--- NOTE | 2016-11-29 09:27 | P.PN ---
Subjective Principal diagnosis: Coronary artery disease, non-STEMI. POD #1 Urgent off pump myocardial revascularization with extracorporeal circulation on standby, WELCH to the mid LAD, saphenous vein graft to the PDA, saphenous vein graft to the OM. Endoscopic vein harvesting of the right greater saphenous vein. Intraoperative transesophageal echocardiogram and epi- aortic scanning. Patient currently sitting up in a recliner in no apparent distress. States pain is controlled. Objective - Vital Signs Vital signs: Vital Signs Temp 97.4 F L 11/28/16 20:00 Pulse 83 11/29/16 07:07 Resp 24 11/29/16 07:00 BP 111/50 11/29/16 07:00 Pulse Ox 100 11/29/16 07:00 Intake & Output 11/28/16 11/29/16 11/29/16 18:59 06:59 18:59 Intake Total 855.954 8945.391 51.5 Output Total 1960 1980 Balance -1019.483 -756.609 51.5 Intake: IV 0 866.5 51.5 ACETAMINOPHEN IV (For NPO 200 ) 1,000 mg In Empty Bag 1 bag @ 400 mls/hr IVPB Q6HR KAREN Rx#:[id number] Lactated Ringers 1,000 ml 550 50 @ 50 mls/hr IV .Q20H KAREN Rx#:[id number] Nitroglycerin-D5w Pmx 50 16.5 1.5 mg In Dextrose/Water 1 250ml.bag @ 5 MCG/MIN 1.5 mls/hr IV .Q24H KAREN Rx#: [id number] ceFAZolin 2 gm In Sodium 100 Chloride 0.9% 30 ml @ 60 mls/hr IVPB ONCE PRN Rx#: [id number] Intake, IV Titration 940.517 326.891 Amount ACETAMINOPHEN IV (For NPO 100 ) 1,000 mg In Empty Bag 1 bag @ 400 mls/hr IVPB Q6HR KAREN Rx#:[id number] Albumin Human 5% 250 ml 500 In Empty Bag 1 bag @ 250 mls/hr IVPB Q1HR PRN Rx#: [id number] Clevidipine Butyrate 25 3.567 mg In Empty Bag 1 bag @ 1 MG/HR 2 mls/hr IV .Q24H KAREN Rx#:[id number] Insulin Regular 100 unit 14.671 In Sodium Chloride 0.9% 100 ml @ Per Protocol IV .Q0M KAREN Rx#:[id number] Insulin Regular 100 unit 90.517 In Sodium Chloride 0.9% 100 ml @ Titrate IV .Q0M KAREN Rx#:[id number] Lactated Ringers 1,000 ml 150 50 @ 50 mls/hr IV .Q20H KAREN Rx#:[id number] Potassium Chloride 10 meq 100 100 In Water For Injection 1 100ml.bag @ 100 mls/hr IVPB Q1H KAREN Rx#: [id number] Propofol 500 mg In Empty 58.653 Bag 1 bag @ Titrate IV . Q0M KAREN Rx#:[id number] ceFAZolin 2 gm In Sodium 100 Chloride 0.9% 100 ml @ 100 mls/hr IVPB Q8HR KAREN Rx#:[id number] Oral 30 Output: Chest Tube Drainage 320 950 Chest Tube Left Pleural/ 320 950 Mediastinal Drainage 100 150 Right Knee 100 150 Urine 640 880 Estimated Blood Loss 900 Other: Voiding Method Indwelling Catheter Indwelling Catheter ABP, PAP, CO, CI - Last Documented Arterial Blood Pressure 105/96 Pulmonary Artery Pressure 34/21 Cardiac Output 6.3 Cardiac Index 2.9 - Constitutional General appearance: Present: cooperative, no acute distress, obese - Respiratory Details: Lungs sounds diminished bilaterally with faint expiratory wheezes heard. Respirations even, nonlabored. Only able to achieve 500 mL on her incentive spirometry. Weak cough. Left/mediastinal chest tube to -20 cm wall suction, drained 760 mL serosanguineous fluid in the last 8 hours, 1150 mL since surgery. No air leak present. - Cardiovascular Details: S1, S2 present. Regular rate and rhythm, normal sinus rhythm on telemetry, no events noted overnight. [place] present. Sternum stable. Heart hugger in place with patient demonstrating appropriate use. Trace right lower extremity edema present. Teds/SCDs present. - Gastrointestinal Gastrointestinal Comment(s): Abdomen soft, nontender, nondistended. Hypoactive bowel sounds 4 quadrants. - Genitourinary Genitourinary Comment(s): Wall present draining clear, yellow urine. Output 60-100 mL per hour. - Integumentary Integumentary Comment(s): Anterior chest incision covered with dry intact Silverlon dressing. Right lower extremity EVH site well approximated with WALE present draining minimal serosanguineous fluid. - Musculoskeletal Musculoskeletal: Present: strength equal bilaterally - Psychiatric Psychiatric Comment(s): The patient is oriented but does appeared to have some short-term memory loss. Psychiatric: Present: A&O x's 3, appropriate affect, intact judgment & insight - Allied health notes Allied health notes reviewed: nursing - Labs CBC & Chem 7: 11/29/16 05:15 11/29/16 05:15 Labs: Abnormal Lab Results - Last 24 Hours (Table) 11/27/16 11/28/16 11/28/16 Range/Units 09:32 10:16 11:04 WBC (3.8-10.6) k/uL RBC (3.80-5.40) m/uL Hgb (11.4-16.0) gm/dL Hct (34.0-46.0) % Plt Count (150-450) k/uL Neutrophils # (1.3-7.7) k/uL Monocytes # (0-1.0) k/uL PT (9.0-12.0) sec ABG pO2 (83-108) mmHg ABG O2 Saturation (94-97) % Chloride (98-107) mmol/L BUN (7-17) mg/dL Glucose (74-99) mg/dL POC Glucose (mg/dL) 214 H 165 H (75-99) mg/dL Calcium (8.4-10.2) mg/dL AST (14-36) U/L ALT (9-52) U/L Alkaline Phosphatase (38-126) U/L Total Protein (6.3-8.2) g/dL Albumin (3.5-5.0) g/dL Crossmatch See Detail 11/28/16 11/28/16 11/28/16 Range/Units 12:20 12:58 14:04 WBC (3.8-10.6) k/uL RBC (3.80-5.40) m/uL Hgb (11.4-16.0) gm/dL Hct (34.0-46.0) % Plt Count (150-450) k/uL Neutrophils # (1.3-7.7) k/uL Monocytes # (0-1.0) k/uL PT (9.0-12.0) sec ABG pO2 (83-108) mmHg ABG O2 Saturation (94-97) % Chloride (98-107) mmol/L BUN (7-17) mg/dL Glucose (74-99) mg/dL POC Glucose (mg/dL) 144 H 139 H 133 H (75-99) mg/dL Calcium (8.4-10.2) mg/dL AST (14-36) U/L ALT (9-52) U/L Alkaline Phosphatase (38-126) U/L Total Protein (6.3-8.2) g/dL Albumin (3.5-5.0) g/dL Crossmatch 11/28/16 11/28/16 11/28/16 Range/Units 14:59 15:56 16:00 WBC 23.4 H (3.8-10.6) k/uL RBC 2.75 L (3.80-5.40) m/uL Hgb 8.6 L D (11.4-16.0) gm/dL Hct 26.1 L (34.0-46.0) % Plt Count 58 L D (150-450) k/uL Neutrophils # 20.6 H (1.3-7.7) k/uL Monocytes # (0-1.0) k/uL PT (9.0-12.0) sec ABG pO2 (83-108) mmHg ABG O2 Saturation (94-97) % Chloride (98-107) mmol/L BUN (7-17) mg/dL Glucose (74-99) mg/dL POC Glucose (mg/dL) 132 H 108 H (75-99) mg/dL Calcium (8.4-10.2) mg/dL AST (14-36) U/L ALT (9-52) U/L Alkaline Phosphatase (38-126) U/L Total Protein (6.3-8.2) g/dL Albumin (3.5-5.0) g/dL Crossmatch 11/28/16 11/28/16 11/28/16 Range/Units 16:00 16:00 16:13 WBC (3.8-10.6) k/uL RBC (3.80-5.40) m/uL Hgb (11.4-16.0) gm/dL Hct (34.0-46.0) % Plt Count (150-450) k/uL Neutrophils # (1.3-7.7) k/uL Monocytes # (0-1.0) k/uL PT 20.9 H (9.0-12.0) sec ABG pO2 303 H (83-108) mmHg ABG O2 Saturation 100.0 H (94-97) % Chloride 109 H (98-107) mmol/L BUN 27 H (7-17) mg/dL Glucose 108 H (74-99) mg/dL POC Glucose (mg/dL) (75-99) mg/dL Calcium 7.7 L (8.4-10.2) mg/dL AST 529 H (14-36) U/L ALT 248 H (9-52) U/L Alkaline Phosphatase 30 L (38-126) U/L Total Protein 4.7 L (6.3-8.2) g/dL Albumin 2.6 L (3.5-5.0) g/dL Crossmatch 11/28/16 11/28/16 11/28/16 Range/Units 16:21 17:05 17:59 WBC (3.8-10.6) k/uL RBC (3.80-5.40) m/uL Hgb (11.4-16.0) gm/dL Hct (34.0-46.0) % Plt Count (150-450) k/uL Neutrophils # (1.3-7.7) k/uL Monocytes # (0-1.0) k/uL PT (9.0-12.0) sec ABG pO2 (83-108) mmHg ABG O2 Saturation (94-97) % Chloride (98-107) mmol/L BUN (7-17) mg/dL Glucose (74-99) mg/dL POC Glucose (mg/dL) 114 H 138 H 134 H (75-99) mg/dL Calcium (8.4-10.2) mg/dL AST (14-36) U/L ALT (9-52) U/L Alkaline Phosphatase (38-126) U/L Total Protein (6.3-8.2) g/dL Albumin (3.5-5.0) g/dL Crossmatch 11/28/16 11/28/16 11/28/16 Range/Units 19:06 19:15 20:00 WBC 17.4 H (3.8-10.6) k/uL RBC 2.53 L (3.80-5.40) m/uL Hgb 7.8 L (11.4-16.0) gm/dL Hct 23.4 L (34.0-46.0) % Plt Count (150-450) k/uL Neutrophils # 14.7 H (1.3-7.7) k/uL Monocytes # 1.1 H (0-1.0) k/uL PT (9.0-12.0) sec ABG pO2 (83-108) mmHg ABG O2 Saturation (94-97) % Chloride (98-107) mmol/L BUN (7-17) mg/dL Glucose (74-99) mg/dL POC Glucose (mg/dL) 128 H 139 H (75-99) mg/dL Calcium (8.4-10.2) mg/dL AST (14-36) U/L ALT (9-52) U/L Alkaline Phosphatase (38-126) U/L Total Protein (6.3-8.2) g/dL Albumin (3.5-5.0) g/dL Crossmatch 11/28/16 11/28/16 11/28/16 Range/Units 21:07 22:10 22:10 WBC 17.6 H (3.8-10.6) k/uL RBC 2.70 L (3.80-5.40) m/uL Hgb 8.3 L (11.4-16.0) gm/dL Hct 24.9 L (34.0-46.0) % Plt Count (150-450) k/uL Neutrophils # 14.0 H (1.3-7.7) k/uL Monocytes # (0-1.0) k/uL PT (9.0-12.0) sec ABG pO2 (83-108) mmHg ABG O2 Saturation (94-97) % Chloride (98-107) mmol/L BUN 26 H (7-17) mg/dL Glucose 151 H (74-99) mg/dL POC Glucose (mg/dL) 140 H (75-99) mg/dL Calcium 7.8 L (8.4-10.2) mg/dL AST (14-36) U/L ALT (9-52) U/L Alkaline Phosphatase (38-126) U/L Total Protein (6.3-8.2) g/dL Albumin (3.5-5.0) g/dL Crossmatch 11/28/16 11/28/16 11/29/16 Range/Units 22:14 23:11 00:10 WBC (3.8-10.6) k/uL RBC (3.80-5.40) m/uL Hgb (11.4-16.0) gm/dL Hct (34.0-46.0) % Plt Count (150-450) k/uL Neutrophils # (1.3-7.7) k/uL Monocytes # (0-1.0) k/uL PT (9.0-12.0) sec ABG pO2 (83-108) mmHg ABG O2 Saturation 98.0 H (94-97) % Chloride (98-107) mmol/L BUN (7-17) mg/dL Glucose (74-99) mg/dL POC Glucose (mg/dL) 162 H 155 H (75-99) mg/dL Calcium (8.4-10.2) mg/dL AST (14-36) U/L ALT (9-52) U/L Alkaline Phosphatase (38-126) U/L Total Protein (6.3-8.2) g/dL Albumin (3.5-5.0) g/dL Crossmatch 11/29/16 11/29/16 11/29/16 Range/Units 01:05 02:12 03:19 WBC (3.8-10.6) k/uL RBC (3.80-5.40) m/uL Hgb (11.4-16.0) gm/dL Hct (34.0-46.0) % Plt Count (150-450) k/uL Neutrophils # (1.3-7.7) k/uL Monocytes # (0-1.0) k/uL PT (9.0-12.0) sec ABG pO2 (83-108) mmHg ABG O2 Saturation (94-97) % Chloride (98-107) mmol/L BUN (7-17) mg/dL Glucose (74-99) mg/dL POC Glucose (mg/dL) 114 H 126 H 125 H (75-99) mg/dL Calcium (8.4-10.2) mg/dL AST (14-36) U/L ALT (9-52) U/L Alkaline Phosphatase (38-126) U/L Total Protein (6.3-8.2) g/dL Albumin (3.5-5.0) g/dL Crossmatch 11/29/16 11/29/16 11/29/16 Range/Units 04:00 05:15 05:15 WBC 16.3 H (3.8-10.6) k/uL RBC 2.95 L (3.80-5.40) m/uL Hgb 8.8 L (11.4-16.0) gm/dL Hct 27.5 L (34.0-46.0) % Plt Count (150-450) k/uL Neutrophils # 12.8 H (1.3-7.7) k/uL Monocytes # (0-1.0) k/uL PT (9.0-12.0) sec ABG pO2 (83-108) mmHg ABG O2 Saturation (94-97) % Chloride (98-107) mmol/L BUN 23 H (7-17) mg/dL Glucose 122 H (74-99) mg/dL POC Glucose (mg/dL) 127 H (75-99) mg/dL Calcium 7.9 L (8.4-10.2) mg/dL AST 133 H (14-36) U/L ALT 181 H (9-52) U/L Alkaline Phosphatase (38-126) U/L Total Protein 4.7 L (6.3-8.2) g/dL Albumin 2.7 L (3.5-5.0) g/dL Crossmatch 11/29/16 11/29/16 Range/Units 05:19 08:44 WBC (3.8-10.6) k/uL RBC (3.80-5.40) m/uL Hgb (11.4-16.0) gm/dL Hct (34.0-46.0) % Plt Count (150-450) k/uL Neutrophils # (1.3-7.7) k/uL Monocytes # (0-1.0) k/uL PT (9.0-12.0) sec ABG pO2 (83-108) mmHg ABG O2 Saturation (94-97) % Chloride (98-107) mmol/L BUN (7-17) mg/dL Glucose (74-99) mg/dL POC Glucose (mg/dL) 130 H 133 H (75-99) mg/dL Calcium (8.4-10.2) mg/dL AST (14-36) U/L ALT (9-52) U/L Alkaline Phosphatase (38-126) U/L Total Protein (6.3-8.2) g/dL Albumin (3.5-5.0) g/dL Crossmatch - Imaging and Cardiology Chest x-ray: report reviewed, image reviewed Assessment and Plan (1) Coronary arteriosclerosis in patient with history of previous myocardial infarction Status: Acute (2) Diabetes mellitus Status: Acute (3) Hypertension Status: Acute (4) Hyperlipidemia Status: Acute (5) COPD exacerbation Status: Acute (6) NSTEMI (non-ST elevated myocardial infarction) Status: Acute Plan: 1. Continue aspirin, Lipitor, Lopressor, heparin. 2. DC [place]. DC nitro drip. 3. Will keep chest tubes for another day. 4. Encourage incentive spirometry use. 5. Encourage increased activity. Out of bed to chair all day with induration in the room. Physical therapy to follow 6. GI/DVT prophylaxis. 7. Monitor daily labs and chest x-rays. 8. More recommendations as patient progresses. Time with Patient: Greater than 30
[2016-11-29 09:39] LABS: Glucose,Whole Blood 147 mg/dL (75-99)
[2016-11-29 10:34] LABS: Glucose,Whole Blood 138 mg/dL (75-99)
--- NOTE | 2016-11-29 10:53 | P.ARTDOP ---
Arterial Doppler LOWER EXTREMITY ARTERIAL DOPPLER: DATE OF SERVICE: 11/26/16 Reason for study: Pre-CABG. Doppler waveforms: Multiphasic bilaterally throughout. Pulse volume recording: Distal blunting. Pressure gradients: Mild distal gradient. Ankle-brachial indices: 0.9 on the right and 0.8 on the left. Toe pressures: 116 on the right, 109 on the left Impression: Mild femoral popliteal disease.
--- NOTE | 2016-11-29 10:55 | P.VSCSTY ---
Greater Saphenous Vein Mapping This is bilateral lower extremity greater saphenous vein mapping. Date of service 12-11 Vein quality and ultrasound appearance normal. Vein size groin right 7.8 x 6.6 groin left 8.0 x 6.9 High thigh right 6.0 x 6.4 high thigh left 4.5 x 4.1 Mid thigh right 3.3 x 2.5 mid thigh left 5.3 x 4.2 Above-knee right 3.8 x 2.9 above- knee left 3.3 x 3.0 Below knee right 3.1 x 1.9 below-knee left 2.8 x 2.5 Mid calf right 3.7 x 2.9 mid calf left 2.0 x 2.0 Ankle right 2.4 x 2.0 ankle left 2.2 x 2.2 Impression usable bilateral greater saphenous vein. Somewhat small distally on the left..
[2016-11-29 11:17] LABS: Glucose,Whole Blood 140 mg/dL (75-99)
[2016-11-29 12:10] LABS: Glucose,Whole Blood 156 mg/dL (75-99)
[2016-11-29 12:36] LABS: Glucose,Whole Blood 152 mg/dL (75-99)
[2016-11-29 12:55] LABS: ABG PCO2 38 mmHg (35-45); ABG PH 7.39 (7.35-7.45); ABG PO2 176 mmHg (83-108)
[2016-11-29 12:56] LABS: ABG PCO2 39 mmHg (35-45); ABG PH 7.39 (7.35-7.45)
[2016-11-29 12:56] LABS: ABG Base Excess -1.6 mmol/L; ABG HCO3 23 mmol/L (21-25); ABG Oxygen Saturation 99.6 % (94-97); ABG TCO2 24 mmol/L (19-24)
[2016-11-29 12:57] LABS: ABG Base Excess -1.1 mmol/L; ABG HCO3 23 mmol/L (21-25); ABG Oxygen Saturation 99.9 % (94-97); ABG PO2 279 mmHg (83-108); ABG TCO2 24 mmol/L (19-24)
[2016-11-29 12:58] LABS: ABG Base Excess -1.1 mmol/L; ABG HCO3 23 mmol/L (21-25); ABG Oxygen Saturation 99.8 % (94-97); ABG PCO2 39 mmHg (35-45); ABG PH 7.39 (7.35-7.45); ABG PO2 232 mmHg (83-108); ABG TCO2 24 mmol/L (19-24)
[2016-11-29 12:59] LABS: ABG Base Excess -1.3 mmol/L; ABG HCO3 24 mmol/L (21-25); ABG Oxygen Saturation 99.8 % (94-97); ABG PCO2 44 mmHg (35-45); ABG PH 7.35 (7.35-7.45); ABG PO2 233 mmHg (83-108); ABG TCO2 25 mmol/L (19-24)
[2016-11-29 13:36] LABS: Glucose,Whole Blood 144 mg/dL (75-99)
[2016-11-29 14:18] LABS: Glucose,Whole Blood 135 mg/dL (75-99)
[2016-11-29] MEDS: METOPROLOL TARTRATE 12.5 MG TAB PO SCH ×2 (14:18→20:59)
[2016-11-29] MEDS ORDERED: BISACODYL 10 MG SUPP RECTAL PRN (14:54)
[2016-11-29] MEDS ORDERED: MAGNESIUM HYDROXIDE 2,400 MG/10 ML CUP PO PRN (14:54)
[2016-11-29] MEDS ORDERED: IPRATROPIUM-ALBUTEROL 3 ML NEB INHALATION PRN (14:54)
--- NOTE | 2016-11-29 14:58 | PN ---
Ms. Shah underwent aortocoronary bypass surgery with 3 grafts, recovered nicely, remains in sinus rhythm. Off all drips. Advised to continue incentive, pulmonary toilet, resume her medications including beta blockers. Vital signs are stable. S1, S2 heard normally. Distant heart sounds. No rub, murmur. Lungs reveal diminished air entry. Rest of physical examination is unchanged. Would recommend that we continue incentive spirometry, pulmonary toilet and current medical regimen.
[2016-11-29 15:14] LABS: Glucose,Whole Blood 131 mg/dL (75-99)
[2016-11-29] MEDS: HYDROcodone/APAP 5-325MG 1 EACH TAB PO PRN ×2 (15:59→19:39)
[2016-11-29 16:11] LABS: Glucose,Whole Blood 121 mg/dL (75-99)
--- NOTE | 2016-11-29 16:37 | P.PN ---
Subjective Date of service 11/29/2016. Progress note being dictated for Dr. Arredondo. Interval history: This is 66-year-old female admitted with acute non-STEMI, status post cardiac cath reporting multivessel vessel CAD. Status post CABG, postop day #1. Extubated last night. Chest x-ray reporting left lung atelectasis with small left effusion. Incentive spirometer up to 500. Continues on ATC nebulized bronchodilators .Currently maintaining O2 sats of 98 % on room air. Continues on insulin drip with blood sugars controlled. Nitroglycerin drip weaned off. Telemetry sinus rhythm. Review of systems: HEENT: Denies headache or focal deficits. Denies any dizziness or lightheadedness. Respiratory: Denies any increased shortness of breath. Cardiac: Denies any chest pain, palpitations. Complains of generalized soreness. GI: Denies any nausea, vomiting, or diarrhea. Denies any abdominal tenderness. States appetite fair. : Denies any dysuria. Psychiatry: Denies any anxiety or depression. Active Medications Hydrocodone Bitart/Acetaminophen ([place] 5-325) 2 each PO Q4HR PRN PRN Reason: Severe Pain Hydrocodone Bitart/Acetaminophen ([place] 5-325) 1 each PO Q4HR PRN PRN Reason: Moderate Pain Last Admin: 11/29/16 15:59 Dose: 1 each Albuterol/Ipratropium (Duoneb 0.5 Mg-3 Mg/3 Ml Soln) 3 ml INHALATION RT-Q2H PRN PRN Reason: Shortness Of Breath Or Wheezing Albuterol/Ipratropium (Duoneb 0.5 Mg-3 Mg/3 Ml Soln) 3 ml INHALATION RT-QID [facility] Last Admin: 11/29/16 15:35 Dose: 3 ml Aspirin (Aspirin) 325 mg PO DAILY [facility] Last Admin: 11/29/16 08:54 Dose: 325 mg Atorvastatin Calcium (Lipitor) 40 mg PO DAILY [facility] Last Admin: 11/29/16 08:55 Dose: 40 mg Benzocaine/Menthol (Cepacol Lozenge) 1 each MUCOUS MEM Q2H PRN PRN Reason: Sore Throat Bisacodyl (Dulcolax) 10 mg RECTAL DAILY PRN PRN Reason: Constipation Clopidogrel Bisulfate (Plavix) 75 mg PO DAILY [facility] Last Admin: 11/29/16 08:55 Dose: 75 mg Heparin Sodium (Porcine) (Heparin) 5,000 unit SQ Q8HR [facility] Last Admin: 11/29/16 15:09 Dose: 5,000 unit Acetaminophen 1,000 mg/ IV (Solution) 100 mls @ 400 mls/hr IVPB Q6HR [facility] Stop: 11/29/16 18:01 Last Admin: 11/29/16 11:30 Dose: 400 mls/hr Albumin Human 250 ml/ IV (Solution) 250 mls @ 250 mls/hr IVPB Q1HR PRN PRN Reason: For Volume Stop: 11/30/16 15:15 Last Admin: 11/28/16 16:41 Dose: 250 mls/hr Insulin Human Regular 100 unit (/ Sodium Chloride) 101 mls @ 0 mls/hr IV .Q0M [facility]; Per Protocol PRN Reason: Protocol Last Titration: 11/29/16 15:12 Dose: 4 unit/hr, 4.04 mls/hr Lactated Ringer's (Lactated Ringers) 1,000 mls @ 50 mls/hr IV .Q20H [facility] Last Admin: 11/28/16 16:31 Dose: 50 mls/hr Magnesium Hydroxide (Milk Of Magnesia) 2,400 mg PO BID PRN PRN Reason: Constipation Metoclopramide HCl (Reglan) 10 mg IVP Q4H PRN PRN Reason: Nausea And Vomiting Metoprolol Tartrate (Lopressor) 12.5 mg PO BID [facility] Last Admin: 11/29/16 14:18 Dose: 12.5 mg Miscellaneous Information (Magnesium Per Protocol) 1 each MISCELLANE DAILY PRN ; Protocol PRN Reason: Per Protocol Miscellaneous Information (Phosphorus Per Protocol) 1 each MISCELLANE DAILY PRN ; Protocol PRN Reason: Per Protocol Miscellaneous Information (Potassium Per Protocol) 1 each MISCELLANE DAILY PRN ; Protocol PRN Reason: Per Protocol Ondansetron HCl (Zofran) 4 mg IVP Q6HR PRN PRN Reason: Nausea And Vomiting Pantoprazole Sodium (Protonix) 40 mg IVP DAILY [facility] Last Admin: 11/29/16 08:55 Dose: 40 mg Senna/Docusate Sodium (Senokot-S) 2 each PO HS [facility] Sodium Chloride (Saline Flush) 10 ml IV BID [facility] Last Admin: 11/29/16 08:55 Dose: 10 ml Objective - Vital Signs Vital signs: Vital Signs Temp 99 F 11/29/16 12:00 Pulse 84 11/29/16 15:45 Resp 22 11/29/16 15:00 BP 122/47 11/29/16 15:00 Pulse Ox 98 11/29/16 15:00 Intake & Output 11/28/16 11/29/16 11/29/16 18:59 06:59 18:59 Intake Total 411.281 8643.391 470.704 Output Total 1960 1980 1155 Balance -1019.483 -756.609 -684.296 Weight 112.4 kg Intake: IV 0 866.5 441.5 ACETAMINOPHEN IV (For NPO 200 ) 1,000 mg In Empty Bag 1 bag @ 400 mls/hr IVPB Q6HR [facility] Rx#:[id number] Lactated Ringers 1,000 ml 550 340 @ 50 mls/hr IV .Q20H [facility] Rx#:[id number] Nitroglycerin-D5w Pmx 50 16.5 1.5 mg In Dextrose/Water 1 250ml.bag @ 5 MCG/MIN 1.5 mls/hr IV .Q24H [facility] Rx#: [id number] ceFAZolin 2 gm In Sodium 100 100 Chloride 0.9% 30 ml @ 60 mls/hr IVPB ONCE PRN Rx#: [id number] Intake, IV Titration 940.517 326.891 29.204 Amount ACETAMINOPHEN IV (For NPO 100 ) 1,000 mg In Empty Bag 1 bag @ 400 mls/hr IVPB Q6HR [facility] Rx#:[id number] Albumin Human 5% 250 ml 500 In Empty Bag 1 bag @ 250 mls/hr IVPB Q1HR PRN Rx#: [id number] Clevidipine Butyrate 25 3.567 mg In Empty Bag 1 bag @ 1 MG/HR 2 mls/hr IV .Q24H [facility] Rx#:[id number] Insulin Regular 100 unit 14.671 29.204 In Sodium Chloride 0.9% 100 ml @ Per Protocol IV .Q0M [facility] Rx#:[id number] Insulin Regular 100 unit 90.517 In Sodium Chloride 0.9% 100 ml @ Titrate IV .Q0M [facility] Rx#:[id number] Lactated Ringers 1,000 ml 150 50 @ 50 mls/hr IV .Q20H [facility] Rx#:[id number] Potassium Chloride 10 meq 100 100 In Water For Injection 1 100ml.bag @ 100 mls/hr IVPB Q1H [facility] Rx#: [id number] Propofol 500 mg In Empty 58.653 Bag 1 bag @ Titrate IV . Q0M [facility] Rx#:[id number] ceFAZolin 2 gm In Sodium 100 Chloride 0.9% 100 ml @ 100 mls/hr IVPB Q8HR [facility] Rx#:[id number] Oral 30 Output: Chest Tube Drainage 320 950 270 Chest Tube Left Pleural/ 320 950 270 Mediastinal Drainage 100 150 150 Right Knee 100 150 150 Urine 640 880 735 Estimated Blood Loss 900 Other: Voiding Method Indwelling Catheter Indwelling Catheter Indwelling Catheter # Bowel Movements 0 ABP, PAP, CO, CI - Last Documented Arterial Blood Pressure 105/96 Pulmonary Artery Pressure 246/246 Cardiac Output 6.1 Cardiac Index 2.8 - Exam PHYSICAL EXAM: VITAL SIGNS: As above GENERAL: [Sitting up in chair, no acute distress] HEENT: [Pupils equal conjunctiva normal, oral mucosa moist. No scleral icterus] NECK: [Supple, Cordis intact, short neck] RESPIRATORY EFFORT:[Normal LUNGS: bilateral bases diminished, occasional fine expiratory wheezes scattered throughout, no rhonchi or crackles, chest tubes present]] CARDIOVASCULAR[regular S1 and S2, no murmur rub or gallop, trace edema] GI: [Abdomen soft, obese, nontender, positive bowel sounds. No organomegaly.] PSYCH: [Alert and oriented -3, mood and affect normal NEURO: No focal deficits, moves all 4 extremities, strength and sensation grossly intact - Labs CBC & Chem 7: 11/29/16 05:15 11/29/16 05:15 Labs: Abnormal Lab Results - Last 24 Hours (Table) 11/27/16 11/28/16 11/28/16 Range/Units 09:32 11:04 12:37 WBC (3.8-10.6) k/uL RBC (3.80-5.40) m/uL Hgb (11.4-16.0) gm/dL Hct (34.0-46.0) % Plt Count (150-450) k/uL Neutrophils # (1.3-7.7) k/uL Monocytes # (0-1.0) k/uL PT (9.0-12.0) sec ABG pO2 176 H 279 H (83-108) mmHg ABG Total CO2 (19-24) mmol/L ABG O2 Saturation 99.6 H 99.9 H (94-97) % ABG Hematocrit 31 L (34.0-46.0) % Chloride (98-107) mmol/L BUN (7-17) mg/dL Glucose (74-99) mg/dL POC Glucose (mg/dL) (75-99) mg/dL Calcium (8.4-10.2) mg/dL AST (14-36) U/L ALT (9-52) U/L Alkaline Phosphatase (38-126) U/L Total Protein (6.3-8.2) g/dL Albumin (3.5-5.0) g/dL Crossmatch See Detail 11/28/16 11/28/16 11/28/16 Range/Units 12:59 14:05 16:00 WBC 23.4 H (3.8-10.6) k/uL RBC 2.75 L (3.80-5.40) m/uL Hgb 8.6 L D (11.4-16.0) gm/dL Hct 26.1 L (34.0-46.0) % Plt Count 58 L D (150-450) k/uL Neutrophils # 20.6 H (1.3-7.7) k/uL Monocytes # (0-1.0) k/uL PT (9.0-12.0) sec ABG pO2 232 H 233 H (83-108) mmHg ABG Total CO2 25 H (19-24) mmol/L ABG O2 Saturation 99.8 H 99.8 H (94-97) % ABG Hematocrit 29 L 28 L (34.0-46.0) % Chloride (98-107) mmol/L BUN (7-17) mg/dL Glucose (74-99) mg/dL POC Glucose (mg/dL) (75-99) mg/dL Calcium (8.4-10.2) mg/dL AST (14-36) U/L ALT (9-52) U/L Alkaline Phosphatase (38-126) U/L Total Protein (6.3-8.2) g/dL Albumin (3.5-5.0) g/dL Crossmatch 11/28/16 11/28/16 11/28/16 Range/Units 16:00 16:00 16:13 WBC (3.8-10.6) k/uL RBC (3.80-5.40) m/uL Hgb (11.4-16.0) gm/dL Hct (34.0-46.0) % Plt Count (150-450) k/uL Neutrophils # (1.3-7.7) k/uL Monocytes # (0-1.0) k/uL PT 20.9 H (9.0-12.0) sec ABG pO2 303 H (83-108) mmHg ABG Total CO2 (19-24) mmol/L ABG O2 Saturation 100.0 H (94-97) % ABG Hematocrit (34.0-46.0) % Chloride 109 H (98-107) mmol/L BUN 27 H (7-17) mg/dL Glucose 108 H (74-99) mg/dL POC Glucose (mg/dL) (75-99) mg/dL Calcium 7.7 L (8.4-10.2) mg/dL AST 529 H (14-36) U/L ALT 248 H (9-52) U/L Alkaline Phosphatase 30 L (38-126) U/L Total Protein 4.7 L (6.3-8.2) g/dL Albumin 2.6 L (3.5-5.0) g/dL Crossmatch 11/28/16 11/28/16 11/28/16 Range/Units 16:21 17:05 17:59 WBC (3.8-10.6) k/uL RBC (3.80-5.40) m/uL Hgb (11.4-16.0) gm/dL Hct (34.0-46.0) % Plt Count (150-450) k/uL Neutrophils # (1.3-7.7) k/uL Monocytes # (0-1.0) k/uL PT (9.0-12.0) sec ABG pO2 (83-108) mmHg ABG Total CO2 (19-24) mmol/L ABG O2 Saturation (94-97) % ABG Hematocrit (34.0-46.0) % Chloride (98-107) mmol/L BUN (7-17) mg/dL Glucose (74-99) mg/dL POC Glucose (mg/dL) 114 H 138 H 134 H (75-99) mg/dL Calcium (8.4-10.2) mg/dL AST (14-36) U/L ALT (9-52) U/L Alkaline Phosphatase (38-126) U/L Total Protein (6.3-8.2) g/dL Albumin (3.5-5.0) g/dL Crossmatch 11/28/16 11/28/16 11/28/16 Range/Units 19:06 19:15 20:00 WBC 17.4 H (3.8-10.6) k/uL RBC 2.53 L (3.80-5.40) m/uL Hgb 7.8 L (11.4-16.0) gm/dL Hct 23.4 L (34.0-46.0) % Plt Count (150-450) k/uL Neutrophils # 14.7 H (1.3-7.7) k/uL Monocytes # 1.1 H (0-1.0) k/uL PT (9.0-12.0) sec ABG pO2 (83-108) mmHg ABG Total CO2 (19-24) mmol/L ABG O2 Saturation (94-97) % ABG Hematocrit (34.0-46.0) % Chloride (98-107) mmol/L BUN (7-17) mg/dL Glucose (74-99) mg/dL POC Glucose (mg/dL) 128 H 139 H (75-99) mg/dL Calcium (8.4-10.2) mg/dL AST (14-36) U/L ALT (9-52) U/L Alkaline Phosphatase (38-126) U/L Total Protein (6.3-8.2) g/dL Albumin (3.5-5.0) g/dL Crossmatch 11/28/16 11/28/16 11/28/16 Range/Units 21:07 22:10 22:10 WBC 17.6 H (3.8-10.6) k/uL RBC 2.70 L (3.80-5.40) m/uL Hgb 8.3 L (11.4-16.0) gm/dL Hct 24.9 L (34.0-46.0) % Plt Count (150-450) k/uL Neutrophils # 14.0 H (1.3-7.7) k/uL Monocytes # (0-1.0) k/uL PT (9.0-12.0) sec ABG pO2 (83-108) mmHg ABG Total CO2 (19-24) mmol/L ABG O2 Saturation (94-97) % ABG Hematocrit (34.0-46.0) % Chloride (98-107) mmol/L BUN 26 H (7-17) mg/dL Glucose 151 H (74-99) mg/dL POC Glucose (mg/dL) 140 H (75-99) mg/dL Calcium 7.8 L (8.4-10.2) mg/dL AST (14-36) U/L ALT (9-52) U/L Alkaline Phosphatase (38-126) U/L Total Protein (6.3-8.2) g/dL Albumin (3.5-5.0) g/dL Crossmatch 11/28/16 11/28/16 11/29/16 Range/Units 22:14 23:11 00:10 WBC (3.8-10.6) k/uL RBC (3.80-5.40) m/uL Hgb (11.4-16.0) gm/dL Hct (34.0-46.0) % Plt Count (150-450) k/uL Neutrophils # (1.3-7.7) k/uL Monocytes # (0-1.0) k/uL PT (9.0-12.0) sec ABG pO2 (83-108) mmHg ABG Total CO2 (19-24) mmol/L ABG O2 Saturation 98.0 H (94-97) % ABG Hematocrit (34.0-46.0) % Chloride (98-107) mmol/L BUN (7-17) mg/dL Glucose (74-99) mg/dL POC Glucose (mg/dL) 162 H 155 H (75-99) mg/dL Calcium (8.4-10.2) mg/dL AST (14-36) U/L ALT (9-52) U/L Alkaline Phosphatase (38-126) U/L Total Protein (6.3-8.2) g/dL Albumin (3.5-5.0) g/dL Crossmatch 11/29/16 11/29/16 11/29/16 Range/Units 01:05 02:12 03:19 WBC (3.8-10.6) k/uL RBC (3.80-5.40) m/uL Hgb (11.4-16.0) gm/dL Hct (34.0-46.0) % Plt Count (150-450) k/uL Neutrophils # (1.3-7.7) k/uL Monocytes # (0-1.0) k/uL PT (9.0-12.0) sec ABG pO2 (83-108) mmHg ABG Total CO2 (19-24) mmol/L ABG O2 Saturation (94-97) % ABG Hematocrit (34.0-46.0) % Chloride (98-107) mmol/L BUN (7-17) mg/dL Glucose (74-99) mg/dL POC Glucose (mg/dL) 114 H 126 H 125 H (75-99) mg/dL Calcium (8.4-10.2) mg/dL AST (14-36) U/L ALT (9-52) U/L Alkaline Phosphatase (38-126) U/L Total Protein (6.3-8.2) g/dL Albumin (3.5-5.0) g/dL Crossmatch 11/29/16 11/29/16 11/29/16 Range/Units 04:00 05:15 05:15 WBC 16.3 H (3.8-10.6) k/uL RBC 2.95 L (3.80-5.40) m/uL Hgb 8.8 L (11.4-16.0) gm/dL Hct 27.5 L (34.0-46.0) % Plt Count (150-450) k/uL Neutrophils # 12.8 H (1.3-7.7) k/uL Monocytes # (0-1.0) k/uL PT (9.0-12.0) sec ABG pO2 (83-108) mmHg ABG Total CO2 (19-24) mmol/L ABG O2 Saturation (94-97) % ABG Hematocrit (34.0-46.0) % Chloride (98-107) mmol/L BUN 23 H (7-17) mg/dL Glucose 122 H (74-99) mg/dL POC Glucose (mg/dL) 127 H (75-99) mg/dL Calcium 7.9 L (8.4-10.2) mg/dL AST 133 H (14-36) U/L ALT 181 H (9-52) U/L Alkaline Phosphatase (38-126) U/L Total Protein 4.7 L (6.3-8.2) g/dL Albumin 2.7 L (3.5-5.0) g/dL Crossmatch 11/29/16 11/29/16 11/29/16 Range/Units 05:19 08:44 09:36 WBC (3.8-10.6) k/uL RBC (3.80-5.40) m/uL Hgb (11.4-16.0) gm/dL Hct (34.0-46.0) % Plt Count (150-450) k/uL Neutrophils # (1.3-7.7) k/uL Monocytes # (0-1.0) k/uL PT (9.0-12.0) sec ABG pO2 (83-108) mmHg ABG Total CO2 (19-24) mmol/L ABG O2 Saturation (94-97) % ABG Hematocrit (34.0-46.0) % Chloride (98-107) mmol/L BUN (7-17) mg/dL Glucose (74-99) mg/dL POC Glucose (mg/dL) 130 H 133 H 147 H (75-99) mg/dL Calcium (8.4-10.2) mg/dL AST (14-36) U/L ALT (9-52) U/L Alkaline Phosphatase (38-126) U/L Total Protein (6.3-8.2) g/dL Albumin (3.5-5.0) g/dL Crossmatch 11/29/16 11/29/16 11/29/16 Range/Units 10:33 11:16 12:09 WBC (3.8-10.6) k/uL RBC (3.80-5.40) m/uL Hgb (11.4-16.0) gm/dL Hct (34.0-46.0) % Plt Count (150-450) k/uL Neutrophils # (1.3-7.7) k/uL Monocytes # (0-1.0) k/uL PT (9.0-12.0) sec ABG pO2 (83-108) mmHg ABG Total CO2 (19-24) mmol/L ABG O2 Saturation (94-97) % ABG Hematocrit (34.0-46.0) % Chloride (98-107) mmol/L BUN (7-17) mg/dL Glucose (74-99) mg/dL POC Glucose (mg/dL) 138 H 140 H 156 H (75-99) mg/dL Calcium (8.4-10.2) mg/dL AST (14-36) U/L ALT (9-52) U/L Alkaline Phosphatase (38-126) U/L Total Protein (6.3-8.2) g/dL Albumin (3.5-5.0) g/dL Crossmatch 11/29/16 11/29/16 11/29/16 Range/Units 12:34 13:35 14:15 WBC (3.8-10.6) k/uL RBC (3.80-5.40) m/uL Hgb (11.4-16.0) gm/dL Hct (34.0-46.0) % Plt Count (150-450) k/uL Neutrophils # (1.3-7.7) k/uL Monocytes # (0-1.0) k/uL PT (9.0-12.0) sec ABG pO2 (83-108) mmHg ABG Total CO2 (19-24) mmol/L ABG O2 Saturation (94-97) % ABG Hematocrit (34.0-46.0) % Chloride (98-107) mmol/L BUN (7-17) mg/dL Glucose (74-99) mg/dL POC Glucose (mg/dL) 152 H 144 H 135 H (75-99) mg/dL Calcium (8.4-10.2) mg/dL AST (14-36) U/L ALT (9-52) U/L Alkaline Phosphatase (38-126) U/L Total Protein (6.3-8.2) g/dL Albumin (3.5-5.0) g/dL Crossmatch 11/29/16 11/29/16 Range/Units 15:11 16:09 WBC (3.8-10.6) k/uL RBC (3.80-5.40) m/uL Hgb (11.4-16.0) gm/dL Hct (34.0-46.0) % Plt Count (150-450) k/uL Neutrophils # (1.3-7.7) k/uL Monocytes # (0-1.0) k/uL PT (9.0-12.0) sec ABG pO2 (83-108) mmHg ABG Total CO2 (19-24) mmol/L ABG O2 Saturation (94-97) % ABG Hematocrit (34.0-46.0) % Chloride (98-107) mmol/L BUN (7-17) mg/dL Glucose (74-99) mg/dL POC Glucose (mg/dL) 131 H 121 H (75-99) mg/dL Calcium (8.4-10.2) mg/dL AST (14-36) U/L ALT (9-52) U/L Alkaline Phosphatase (38-126) U/L Total Protein (6.3-8.2) g/dL Albumin (3.5-5.0) g/dL Crossmatch Assessment and Plan Plan: 1. Acute non-STEMI, status post cardiac catheterization with severe multivessel CAD,Status post CABG 2. [Shortness of breath possibly multifactorial, acute exacerbation COPD as well as CAD]. 3. [Leukocytosis, reactive]. 4. [Anemia, normocytic, of chronic disease]. 5. [Diabetes mellitus type 2, hemoglobin A1c 9.9], on insulin drip ,Outpatient diabetic education classes. 6. [Morbid Obesity, BMI 42.5]. 7. [History of COPD and paroxysmal intermittent asthma]. 8. History of CAD with stent, [place] 9. Essential hypertension 11. Hyperlipidemia 12. Remote history of nicotine dependence 13. Postop anemia, stable 14. Postoperative atelectasis Plan: Continue on current medication regime , Xanax, statin, nebulized bronchodilators , aspirin, beta maru, diuretic, monitoring and symptomatic treatment. Aggressive pulmonary toileting, patient requires much encouragement with her IS. Maintain insulin drip with insulin titration protocol. PT. Further recommendations to follow. The impression and plan of care has been dictated as directed. : I performed a H&P examination of this patient and discussed the same with the dictator. I agree with the dictator's note. Any additional findings/opinions/ etc. will be noted.
[2016-11-29 17:22] LABS: Glucose,Whole Blood 108 mg/dL (75-99)
[2016-11-29 18:09] LABS: Glucose,Whole Blood 133 mg/dL (75-99)
[2016-11-29 19:06] LABS: Glucose,Whole Blood 173 mg/dL (75-99)
[2016-11-29] MEDS: LACTATED RINGERS 1,000 ML IV SCH (19:34)
--- NOTE | 2016-11-29 20:36 | PN ---
DATE OF SERVICE: 11/29/2016 This 66-year-old woman who was admitted with acute non-ST segment elevation myocardial infarction had CAD and CABG. The patient being closely monitored in ICU at this time. Seen and evaluated the patient along with nurse practitioner. Please refer to the nurse practitioner notes and impression documented as a scribe for further information. Continue with insulin drip and monitor blood sugars closely. Further recommendations to follow.
[2016-11-29 20:54] LABS: Glucose,Whole Blood 168 mg/dL (75-99)
[2016-11-29] MEDS: SENNOSIDES-DOCUSATE SODIUM 1 EACH TAB PO SCH (20:59)
[2016-11-29 22:11] LABS: Glucose,Whole Blood 188 mg/dL (75-99)
[2016-11-29 23:13] LABS: Glucose,Whole Blood 181 mg/dL (75-99)
[2016-11-30] MEDS: HEPARIN SODIUM,PORCINE 5,000 UNIT/ML 1 ML VIAL SQ SCH ×4 (00:17→23:59)
[2016-11-30 00:20] LABS: Glucose,Whole Blood 176 mg/dL (75-99)
[2016-11-30 01:17] LABS: Glucose,Whole Blood 131 mg/dL (75-99)
[2016-11-30] MEDS: INSULIN REGULAR 100 UNIT in SODIUM CHLORIDE 0.9% 100 ML IV SCH (01:17)
[2016-11-30 02:16] LABS: Glucose,Whole Blood 113 mg/dL (75-99)
[2016-11-30] MEDS: HYDROcodone/APAP 5-325MG 1 EACH TAB PO PRN ×4 (02:17→21:42)
[2016-11-30 04:44] LABS: Glucose,Whole Blood 149 mg/dL (75-99)
[2016-11-30 05:07] LABS: Basophils # (A) 0.1 k/uL (0-0.2); Basophils % (A) 0 %; CH 30.2; CHCM 31.8; Eosinophils # (A) 0.6 k/uL (0-0.7); Eosinophils % (A) 3 %; HCT 26.1 % (34.0-46.0); HDW 2.45; HGB 8.9 gm/dL (11.4-16.0); Luc # (Auto) 0.18; Luc % (Auto) 1; Lymphocytes # (A) 1.8 k/uL (1.0-4.8); Lymphocytes % (A) 9 %; MCH 32.5 pg (25.0-35.0); MCV 95.6 fL (80.0-100.0); Mean Platelet Volume 6.9; Monocytes % (A) 5 %; Neutrophils # (A) 16.2 k/uL (1.3-7.7); Neutrophils % (A) 82 %; RBC 2.73 m/uL (3.80-5.40); RDW 13.9 % (11.5-15.5); WBC 19.8 k/uL (3.8-10.6); WBC (Perox) 19.63
[2016-11-30 05:24] LABS: INR 1.2 (<1.1); Prothrombin Time 12.2 sec (9.0-12.0)
[2016-11-30 05:38] LABS: ALT 103 U/L (9-52); AST 48 U/L (14-36); Alkaline Phosphatase 49 U/L (38-126); Anion Gap 6 mmol/L; Blood Urea Nitrogen 15 mg/dL (7-17); Carbon Dioxide 26 mmol/L (22-30); Chloride 105 mmol/L (98-107); Glucose 140 mg/dL (74-99); Magnesium 2.2 mg/dL (1.6-2.3); Non-African American GFR(MDRD) >60 (>60 ml/min/1.73 sqM); Potassium 4.2 mmol/L (3.5-5.1); Sodium 137 mmol/L (137-145); Total Bilirubin 1.4 mg/dL (0.2-1.3); Total Protein 4.5 g/dL (6.3-8.2)
[2016-11-30 06:08] LABS: Glucose,Whole Blood 138 mg/dL (75-99)
[2016-11-30 07:05] LABS: Glucose,Whole Blood 126 mg/dL (75-99)
[2016-11-30] MEDS: LACTATED RINGERS 1,000 ML IV SCH (07:05)
--- NOTE | 2016-11-30 07:32 | XR ---
EXAMINATION TYPE: XR chest 1V portable DATE OF EXAM: 11/30/2016 6:48 AM COMPARISON: 11/29/2016 INDICATION: Postop cardiac surgery TECHNIQUE: Single frontal view of the chest is obtained. FINDINGS: The heart size is normal. The pulmonary vasculature is normal. Mild left lower lobe infiltrate is present. Correlate for atelectasis. Sternotomy wires are present from the patient's cardiac surgery. Left-sided chest tube is present. No pneumothorax is evident. Right-sided sheath is present. The [place]-Greg[place] catheter is been removed. IMPRESSION: 1. Correlate for left lower lobe atelectasis 2. Lines and catheters discussed above.
[2016-11-30] MEDS: IPRATROPIUM-ALBUTEROL 3 ML NEB INHALATION SCH ×4 (07:41→21:07)
[2016-11-30] MEDS ORDERED: FUROSEMIDE 10 MG/ML 2 ML VIAL IV ONE (07:47)
--- NOTE | 2016-11-30 08:02 | P.PN ---
Addendum entered and electronically signed by Maddy Hernandez NPC 11/30/16 13:26 : Right pleural chest tube discontinued without incident. Patient tolerated well. Chest x-ray in a.m. Original Note: Subjective Principal diagnosis: Coronary artery disease, non-STEMI. POD #2 Urgent off pump myocardial revascularization with extracorporeal circulation on standby, WELCH to the mid LAD, saphenous vein graft to the PDA, saphenous vein graft to the OM. Endoscopic vein harvesting of the right greater saphenous vein. Intraoperative transesophageal echocardiogram and epi- aortic scanning. Patient currently sitting up in a recliner in no apparent distress. States pain was not controlled well last night. Objective - Vital Signs Vital signs: Vital Signs Temp 98.8 F 11/30/16 05:00 Pulse 77 11/30/16 07:41 Resp 25 H 11/30/16 07:00 BP 143/59 11/30/16 07:00 Pulse Ox 96 11/30/16 07:00 Intake & Output 11/29/16 11/30/16 11/30/16 18:59 06:59 18:59 Intake Total 672.555 774.704 45.525 Output Total 1765 1190 85 Balance -1092.445 -415.296 -39.475 Weight 112.4 kg Intake: IV 631.5 360 30 ACETAMINOPHEN IV (For NPO 100 ) 1,000 mg In Empty Bag 1 bag @ 400 mls/hr IVPB Q6HR KAREN Rx#:[id number] Lactated Ringers 1,000 ml 430 360 30 @ 20 mls/hr IV .Q24H KAREN Rx#:[id number] Nitroglycerin-D5w Pmx 50 1.5 mg In Dextrose/Water 1 250ml.bag @ 5 MCG/MIN 1.5 mls/hr IV .Q24H KAREN Rx#: [id number] ceFAZolin 2 gm In Sodium 100 Chloride 0.9% 30 ml @ 60 mls/hr IVPB ONCE PRN Rx#: [id number] Intake, IV Titration 41.055 54.704 15.525 Amount Insulin Regular 100 unit 41.055 54.704 15.525 In Sodium Chloride 0.9% 100 ml @ Per Protocol IV .Q0M KAREN Rx#:[id number] Oral 360 Output: Chest Tube Drainage 400 250 20 Chest Tube Left Pleural/ 400 250 20 Mediastinal Drainage 200 100 Right Knee 200 100 Urine 1165 840 65 Other: Voiding Method Indwelling Catheter Indwelling Catheter # Bowel Movements 0 ABP, PAP, CO, CI - Last Documented Arterial Blood Pressure 105/96 Pulmonary Artery Pressure 246/246 Cardiac Output 6.1 Cardiac Index 2.8 - Constitutional General appearance: Present: cooperative, no acute distress, obese - Respiratory Details: Lungs sounds diminished with expiratory wheezes present. Respirations even, nonlabored. Currently on 2 L nasal cannula with oxygen saturations in the mid 90s. Only achieving 500 mL on her incentive spirometry. Weak cough. Left/ mediastinal chest tube to -20 cm wall suction, drained 150 mL serosanguineous fluid in the last 8 hours, 590 mL in the last 24 hours. - Cardiovascular Details: S1, S2 present. Regular rate and rhythm, normal sinus rhythm on telemetry. No events noted overnight. Blood pressure has been maintaining 140s to 160s systolic. Sternum stable. Heart hugger in place with patient demonstrating appropriate use. Trace bilateral lower extremity edema, right greater than left. Teds/SCDs in place. - Gastrointestinal Gastrointestinal Comment(s): Abdomen soft, nontender, nondistended. Active bowel sounds 4 quadrants. Tolerating diet. - Genitourinary Genitourinary Comment(s): Wall present draining clear, yellow urine. Urine output 60-100 mL per hour. - Musculoskeletal Musculoskeletal: Present: gait normal, strength equal bilaterally - Psychiatric Psychiatric: Present: A&O x's 3, appropriate affect, intact judgment & insight - Allied health notes Allied health notes reviewed: nursing - Labs CBC & Chem 7: 11/30/16 04:54 11/30/16 04:54 Labs: Abnormal Lab Results - Last 24 Hours (Table) 11/28/16 11/28/16 11/28/16 Range/Units 11:04 12:37 12:59 WBC (3.8-10.6) k/uL RBC (3.80-5.40) m/uL Hgb (11.4-16.0) gm/dL Hct (34.0-46.0) % Neutrophils # (1.3-7.7) k/uL PT (9.0-12.0) sec ABG pO2 176 H 279 H 232 H (83-108) mmHg ABG Total CO2 (19-24) mmol/L ABG O2 Saturation 99.6 H 99.9 H 99.8 H (94-97) % ABG Hematocrit 31 L 29 L (34.0-46.0) % Glucose (74-99) mg/dL POC Glucose (mg/dL) (75-99) mg/dL Calcium (8.4-10.2) mg/dL Total Bilirubin (0.2-1.3) mg/dL AST (14-36) U/L ALT (9-52) U/L Total Protein (6.3-8.2) g/dL Albumin (3.5-5.0) g/dL 11/28/16 11/29/16 11/29/16 Range/Units 14:05 08:44 09:36 WBC (3.8-10.6) k/uL RBC (3.80-5.40) m/uL Hgb (11.4-16.0) gm/dL Hct (34.0-46.0) % Neutrophils # (1.3-7.7) k/uL PT (9.0-12.0) sec ABG pO2 233 H (83-108) mmHg ABG Total CO2 25 H (19-24) mmol/L ABG O2 Saturation 99.8 H (94-97) % ABG Hematocrit 28 L (34.0-46.0) % Glucose (74-99) mg/dL POC Glucose (mg/dL) 133 H 147 H (75-99) mg/dL Calcium (8.4-10.2) mg/dL Total Bilirubin (0.2-1.3) mg/dL AST (14-36) U/L ALT (9-52) U/L Total Protein (6.3-8.2) g/dL Albumin (3.5-5.0) g/dL 11/29/16 11/29/16 11/29/16 Range/Units 10:33 11:16 12:09 WBC (3.8-10.6) k/uL RBC (3.80-5.40) m/uL Hgb (11.4-16.0) gm/dL Hct (34.0-46.0) % Neutrophils # (1.3-7.7) k/uL PT (9.0-12.0) sec ABG pO2 (83-108) mmHg ABG Total CO2 (19-24) mmol/L ABG O2 Saturation (94-97) % ABG Hematocrit (34.0-46.0) % Glucose (74-99) mg/dL POC Glucose (mg/dL) 138 H 140 H 156 H (75-99) mg/dL Calcium (8.4-10.2) mg/dL Total Bilirubin (0.2-1.3) mg/dL AST (14-36) U/L ALT (9-52) U/L Total Protein (6.3-8.2) g/dL Albumin (3.5-5.0) g/dL 11/29/16 11/29/16 11/29/16 Range/Units 12:34 13:35 14:15 WBC (3.8-10.6) k/uL RBC (3.80-5.40) m/uL Hgb (11.4-16.0) gm/dL Hct (34.0-46.0) % Neutrophils # (1.3-7.7) k/uL PT (9.0-12.0) sec ABG pO2 (83-108) mmHg ABG Total CO2 (19-24) mmol/L ABG O2 Saturation (94-97) % ABG Hematocrit (34.0-46.0) % Glucose (74-99) mg/dL POC Glucose (mg/dL) 152 H 144 H 135 H (75-99) mg/dL Calcium (8.4-10.2) mg/dL Total Bilirubin (0.2-1.3) mg/dL AST (14-36) U/L ALT (9-52) U/L Total Protein (6.3-8.2) g/dL Albumin (3.5-5.0) g/dL 11/29/16 11/29/16 11/29/16 Range/Units 15:11 16:09 17:20 WBC (3.8-10.6) k/uL RBC (3.80-5.40) m/uL Hgb (11.4-16.0) gm/dL Hct (34.0-46.0) % Neutrophils # (1.3-7.7) k/uL PT (9.0-12.0) sec ABG pO2 (83-108) mmHg ABG Total CO2 (19-24) mmol/L ABG O2 Saturation (94-97) % ABG Hematocrit (34.0-46.0) % Glucose (74-99) mg/dL POC Glucose (mg/dL) 131 H 121 H 108 H (75-99) mg/dL Calcium (8.4-10.2) mg/dL Total Bilirubin (0.2-1.3) mg/dL AST (14-36) U/L ALT (9-52) U/L Total Protein (6.3-8.2) g/dL Albumin (3.5-5.0) g/dL 11/29/16 11/29/16 11/29/16 Range/Units 18:07 19:04 20:53 WBC (3.8-10.6) k/uL RBC (3.80-5.40) m/uL Hgb (11.4-16.0) gm/dL Hct (34.0-46.0) % Neutrophils # (1.3-7.7) k/uL PT (9.0-12.0) sec ABG pO2 (83-108) mmHg ABG Total CO2 (19-24) mmol/L ABG O2 Saturation (94-97) % ABG Hematocrit (34.0-46.0) % Glucose (74-99) mg/dL POC Glucose (mg/dL) 133 H 173 H 168 H (75-99) mg/dL Calcium (8.4-10.2) mg/dL Total Bilirubin (0.2-1.3) mg/dL AST (14-36) U/L ALT (9-52) U/L Total Protein (6.3-8.2) g/dL Albumin (3.5-5.0) g/dL 11/29/16 11/29/16 11/30/16 Range/Units 22:11 23:12 00:19 WBC (3.8-10.6) k/uL RBC (3.80-5.40) m/uL Hgb (11.4-16.0) gm/dL Hct (34.0-46.0) % Neutrophils # (1.3-7.7) k/uL PT (9.0-12.0) sec ABG pO2 (83-108) mmHg ABG Total CO2 (19-24) mmol/L ABG O2 Saturation (94-97) % ABG Hematocrit (34.0-46.0) % Glucose (74-99) mg/dL POC Glucose (mg/dL) 188 H 181 H 176 H (75-99) mg/dL Calcium (8.4-10.2) mg/dL Total Bilirubin (0.2-1.3) mg/dL AST (14-36) U/L ALT (9-52) U/L Total Protein (6.3-8.2) g/dL Albumin (3.5-5.0) g/dL 11/30/16 11/30/16 11/30/16 Range/Units 01:16 02:14 04:42 WBC (3.8-10.6) k/uL RBC (3.80-5.40) m/uL Hgb (11.4-16.0) gm/dL Hct (34.0-46.0) % Neutrophils # (1.3-7.7) k/uL PT (9.0-12.0) sec ABG pO2 (83-108) mmHg ABG Total CO2 (19-24) mmol/L ABG O2 Saturation (94-97) % ABG Hematocrit (34.0-46.0) % Glucose (74-99) mg/dL POC Glucose (mg/dL) 131 H 113 H 149 H (75-99) mg/dL Calcium (8.4-10.2) mg/dL Total Bilirubin (0.2-1.3) mg/dL AST (14-36) U/L ALT (9-52) U/L Total Protein (6.3-8.2) g/dL Albumin (3.5-5.0) g/dL 11/30/16 11/30/16 11/30/16 Range/Units 04:54 04:54 04:54 WBC 19.8 H (3.8-10.6) k/uL RBC 2.73 L (3.80-5.40) m/uL Hgb 8.9 L (11.4-16.0) gm/dL Hct 26.1 L (34.0-46.0) % Neutrophils # 16.2 H (1.3-7.7) k/uL PT 12.2 H (9.0-12.0) sec ABG pO2 (83-108) mmHg ABG Total CO2 (19-24) mmol/L ABG O2 Saturation (94-97) % ABG Hematocrit (34.0-46.0) % Glucose 140 H (74-99) mg/dL POC Glucose (mg/dL) (75-99) mg/dL Calcium 8.0 L (8.4-10.2) mg/dL Total Bilirubin 1.4 H (0.2-1.3) mg/dL AST 48 H (14-36) U/L ALT 103 H (9-52) U/L Total Protein 4.5 L (6.3-8.2) g/dL Albumin 2.4 L (3.5-5.0) g/dL 11/30/16 11/30/16 Range/Units 06:07 07:04 WBC (3.8-10.6) k/uL RBC (3.80-5.40) m/uL Hgb (11.4-16.0) gm/dL Hct (34.0-46.0) % Neutrophils # (1.3-7.7) k/uL PT (9.0-12.0) sec ABG pO2 (83-108) mmHg ABG Total CO2 (19-24) mmol/L ABG O2 Saturation (94-97) % ABG Hematocrit (34.0-46.0) % Glucose (74-99) mg/dL POC Glucose (mg/dL) 138 H 126 H (75-99) mg/dL Calcium (8.4-10.2) mg/dL Total Bilirubin (0.2-1.3) mg/dL AST (14-36) U/L ALT (9-52) U/L Total Protein (6.3-8.2) g/dL Albumin (3.5-5.0) g/dL - Imaging and Cardiology Chest x-ray: image reviewed Assessment and Plan (1) Coronary arteriosclerosis in patient with history of previous myocardial infarction Status: Acute (2) Diabetes mellitus Status: Acute (3) Hypertension Status: Acute (4) Hyperlipidemia Status: Acute (5) COPD exacerbation Status: Acute (6) NSTEMI (non-ST elevated myocardial infarction) Status: Acute Plan: 1. Continue aspirin, Lipitor, heparin. Increase Lopressor to 25 mg twice a day 2. Lasix 20 mg IV push 1 today. DC Wall catheter after Lasix given. 3. DC insulin drip. Start 3 shot protocol subcu insulin. 4. Encourage incentive spirometry use/aggressive pulmonary toileting. 5. Encourage increased activity. Out of bed to chair all day with ambulation in the hallway. Physical therapy to follow 6. Will DC chest tube today. 7. GI/DVT prophylaxis. 8. Monitor daily labs and chest x-rays. 9. Will likely transfer out of ICU to 6 E. selective care this afternoon. Time with Patient: Greater than 30
[2016-11-30 08:29] LABS: Glucose,Whole Blood 131 mg/dL (75-99)
[2016-11-30] MEDS: ASPIRIN 325 MG TAB PO SCH (09:11)
[2016-11-30] MEDS: ATORVASTATIN 40 MG TAB PO SCH (09:12)
[2016-11-30] MEDS: CLOPIDOGREL 75 MG TAB PO SCH (09:12)
[2016-11-30] MEDS: METOPROLOL TARTRATE 25 MG TAB PO SCH ×2 (09:13→21:41)
[2016-11-30] MEDS: PANTOPRAZOLE 40 MG/10 ML VIAL IVP SCH (09:13)
[2016-11-30 09:21] LABS: Glucose,Whole Blood 124 mg/dL (75-99)
[2016-11-30 10:03] LABS: Glucose,Whole Blood 157 mg/dL (75-99)
[2016-11-30 11:01] LABS: Glucose,Whole Blood 220 mg/dL (75-99)
--- NOTE | 2016-11-30 11:16 | P.PN ---
Subjective This is a very pleasant 66-year-old female patient who follows with Dr. Gonzales as her primary care physician. she has a history of hypertension, hyperlipidemia,diabetes mellitus, coronary artery disease with previous stent placements, morbid obesity. She also has a history of chronic obstructive pulmonary disease from previous smoking history and follows with Dr. Monique in our office for the same. She is maintained on Symbicort, Spiriva and albuterol. She presented here yesterday with complaints of increasing shortness of breath on minimal exertion. She also had some back discomfort radiating down her arms. She is found to be a non-ST segment elevation myocardial infarction and the plan is for cardiac catheterization today.she is seen in consultation on the selective care unit. She is currently awake and alert in no acute distress. Her chest x-ray shows evidence of chronic obstructive disease, cardiomegaly and bilateral atelectasis. No significant change from previous. She is maintaining good O2 saturations in the upper 90s on room air. She's been afebrile. She denies any current chest discomfort. No back pain. No palpitations, lightheadedness or dizziness. On 11/27/2016 the patient is being seen in follow-up. The patient has undergone the cardiac catheterization and the patient has progression of disease in the proximal in the mid LAD and significant disease in the first obtuse marginal branch a chronically occluded right coronary artery with collaterals from the left system. Based on that, the patient will be taken to the operating room for a coronary artery bypass surgery tomorrow. As mentioned earlier, the patient has COPD and her baseline FEV1 is in order of 53-54% of predicted consistent with moderately severe disease. Nevertheless, her disease not in acute exacerbation. Her white cell count slightly elevated probably a steroid effect. No signs of septicemia. She is able to climb a flight of stairs without any major difficulties. On 11/29/2016 the patient is being seen postop day #1. She underwent three- vessel bypass surgery with WELCH to LAD and saphenous vein graft to OM and PDA. Patient was weaned off the mechanical ventilator and she was extubated yesterday without any major difficulties. This morning she is on oxygen at 2 L/ m nasal cannula. As mentioned earlier she has moderate to severe COPD and her FEV1 is no order a 53% of predicted. She is a bit bronchospastic and wheezy and she is using DuoNeb nebulized treatments around the clock. She has a distended and left pleural chest tube. Output from the chest tubes are essentially has been 11 50 mL since surgery. Hemoglobin is stable at 8.8. The patient is hemodynamically stable. The Strathmore-Gregoria catheter was removed earlier this morning. Earlier than that the patient had a cardiac output of 6.1 with an index of 2.8.. Pressures were 25/18. The patient has adequate urine output. Pain is under good control. She is on an insulin drip at 1.5 units an hour. The patient was on Cleviprex drip yesterday which was weaned off and discontinued and she is currently on nitroglycerin drip which will be essentially weaned off and discontinued. She is awake. She is sitting up on a chair. No other significant events overnight. The chest x-ray from this morning shows adequate expansion of both lungs. There is some atelectatic changes and small effusion the left lung base. Chest tubes in good location. Sternum stable clean and intact. The sternal clips were visualized. Patient is seen again today 11/30/2016 in follow-up in the intensive care unit. This is postoperative day #2. She is currently sitting up in a chair at the bedside. She is awake and alert in no acute distress. She is maintaining good O2 saturations in the upper 90s on 2 L/m per nasal cannula. She is only pulling approximately 500 amounts on her incentive spirometer. Her chest x-ray reveals left lower lobe atelectasis. Left and mediastinal chest tubes are in place. She has been hemodynamically stable. The only drip remaining his insulin at 3.5 units per hour. She has a lactated Ringer's at 20 miles per hour. Objective - Vital Signs Vital signs: Vital Signs Temp 98.2 F 11/30/16 08:00 Pulse 78 11/30/16 10:00 Resp 23 11/30/16 10:00 BP 127/49 11/30/16 10:00 Pulse Ox 96 11/30/16 10:00 Intake & Output 11/29/16 11/30/16 11/30/16 18:59 06:59 18:59 Intake Total 672.555 774.704 135.525 Output Total 1765 1190 595 Balance -1092.445 -415.296 -459.475 Weight 112.4 kg Intake: IV 631.5 360 120 ACETAMINOPHEN IV (For NPO 100 ) 1,000 mg In Empty Bag 1 bag @ 400 mls/hr IVPB Q6HR KAREN Rx#:[id number] Lactated Ringers 1,000 ml 430 360 120 @ 20 mls/hr IV .Q24H KAREN Rx#:[id number] Nitroglycerin-D5w Pmx 50 1.5 mg In Dextrose/Water 1 250ml.bag @ 5 MCG/MIN 1.5 mls/hr IV .Q24H KAREN Rx#: [id number] ceFAZolin 2 gm In Sodium 100 Chloride 0.9% 30 ml @ 60 mls/hr IVPB ONCE PRN Rx#: [id number] Intake, IV Titration 41.055 54.704 15.525 Amount Insulin Regular 100 unit 41.055 54.704 15.525 In Sodium Chloride 0.9% 100 ml @ Per Protocol IV .Q0M KAREN Rx#:[id number] Oral 360 Output: Chest Tube Drainage 400 250 20 Chest Tube Left Pleural/ 400 250 20 Mediastinal Drainage 200 100 Right Knee 200 100 Urine 1165 840 575 Other: Voiding Method Indwelling Catheter Indwelling Catheter Indwelling Catheter # Bowel Movements 0 ABP, PAP, CO, CI - Last Documented Arterial Blood Pressure 105/96 Pulmonary Artery Pressure 246/246 Cardiac Output 6.1 Cardiac Index 2.8 - Exam GENERAL EXAM: Morbidly obese. Alert, active, comfortable in no apparent distress. HEAD: Normocephalic. EYES: Normal reaction of pupils, equal size. NOSE: Clear with pink turbinates. THROAT: No erythema or exudates. NECK: No masses, no JVD. Cordis remains in place. CHEST: No chest wall deformity. Sternal dressing is dry and intact. LUNGS: Equal air entry with crackles in the left posterior base. Diminished. CVS: S1 and S2 normal with no audible murmurs, regular rhythm. ABDOMEN: Soft, nontender, normal bowel sounds, no guarding or rigidity. SPINE: No scoliosis or deformity SKIN: No rashes CENTRAL NERVOUS SYSTEM: No focal deficits, tone is normal in all 4 extremities. Extremities: There is 3 to the bilateral lower extremities. WALE drain in place. Peripheral pulses are intact. - Labs CBC & Chem 7: 11/30/16 04:54 11/30/16 04:54 Labs: Abnormal Lab Results - Last 24 Hours (Table) 11/28/16 11/28/16 11/28/16 Range/Units 11:04 12:37 12:59 WBC (3.8-10.6) k/uL RBC (3.80-5.40) m/uL Hgb (11.4-16.0) gm/dL Hct (34.0-46.0) % Neutrophils # (1.3-7.7) k/uL PT (9.0-12.0) sec ABG pO2 176 H 279 H 232 H (83-108) mmHg ABG Total CO2 (19-24) mmol/L ABG O2 Saturation 99.6 H 99.9 H 99.8 H (94-97) % ABG Hematocrit 31 L 29 L (34.0-46.0) % Glucose (74-99) mg/dL POC Glucose (mg/dL) (75-99) mg/dL Calcium (8.4-10.2) mg/dL Total Bilirubin (0.2-1.3) mg/dL AST (14-36) U/L ALT (9-52) U/L Total Protein (6.3-8.2) g/dL Albumin (3.5-5.0) g/dL 11/28/16 11/29/16 11/29/16 Range/Units 14:05 11:16 12:09 WBC (3.8-10.6) k/uL RBC (3.80-5.40) m/uL Hgb (11.4-16.0) gm/dL Hct (34.0-46.0) % Neutrophils # (1.3-7.7) k/uL PT (9.0-12.0) sec ABG pO2 233 H (83-108) mmHg ABG Total CO2 25 H (19-24) mmol/L ABG O2 Saturation 99.8 H (94-97) % ABG Hematocrit 28 L (34.0-46.0) % Glucose (74-99) mg/dL POC Glucose (mg/dL) 140 H 156 H (75-99) mg/dL Calcium (8.4-10.2) mg/dL Total Bilirubin (0.2-1.3) mg/dL AST (14-36) U/L ALT (9-52) U/L Total Protein (6.3-8.2) g/dL Albumin (3.5-5.0) g/dL 11/29/16 11/29/16 11/29/16 Range/Units 12:34 13:35 14:15 WBC (3.8-10.6) k/uL RBC (3.80-5.40) m/uL Hgb (11.4-16.0) gm/dL Hct (34.0-46.0) % Neutrophils # (1.3-7.7) k/uL PT (9.0-12.0) sec ABG pO2 (83-108) mmHg ABG Total CO2 (19-24) mmol/L ABG O2 Saturation (94-97) % ABG Hematocrit (34.0-46.0) % Glucose (74-99) mg/dL POC Glucose (mg/dL) 152 H 144 H 135 H (75-99) mg/dL Calcium (8.4-10.2) mg/dL Total Bilirubin (0.2-1.3) mg/dL AST (14-36) U/L ALT (9-52) U/L Total Protein (6.3-8.2) g/dL Albumin (3.5-5.0) g/dL 11/29/16 11/29/16 11/29/16 Range/Units 15:11 16:09 17:20 WBC (3.8-10.6) k/uL RBC (3.80-5.40) m/uL Hgb (11.4-16.0) gm/dL Hct (34.0-46.0) % Neutrophils # (1.3-7.7) k/uL PT (9.0-12.0) sec ABG pO2 (83-108) mmHg ABG Total CO2 (19-24) mmol/L ABG O2 Saturation (94-97) % ABG Hematocrit (34.0-46.0) % Glucose (74-99) mg/dL POC Glucose (mg/dL) 131 H 121 H 108 H (75-99) mg/dL Calcium (8.4-10.2) mg/dL Total Bilirubin (0.2-1.3) mg/dL AST (14-36) U/L ALT (9-52) U/L Total Protein (6.3-8.2) g/dL Albumin (3.5-5.0) g/dL 11/29/16 11/29/16 11/29/16 Range/Units 18:07 19:04 20:53 WBC (3.8-10.6) k/uL RBC (3.80-5.40) m/uL Hgb (11.4-16.0) gm/dL Hct (34.0-46.0) % Neutrophils # (1.3-7.7) k/uL PT (9.0-12.0) sec ABG pO2 (83-108) mmHg ABG Total CO2 (19-24) mmol/L ABG O2 Saturation (94-97) % ABG Hematocrit (34.0-46.0) % Glucose (74-99) mg/dL POC Glucose (mg/dL) 133 H 173 H 168 H (75-99) mg/dL Calcium (8.4-10.2) mg/dL Total Bilirubin (0.2-1.3) mg/dL AST (14-36) U/L ALT (9-52) U/L Total Protein (6.3-8.2) g/dL Albumin (3.5-5.0) g/dL 11/29/16 11/29/16 11/30/16 Range/Units 22:11 23:12 00:19 WBC (3.8-10.6) k/uL RBC (3.80-5.40) m/uL Hgb (11.4-16.0) gm/dL Hct (34.0-46.0) % Neutrophils # (1.3-7.7) k/uL PT (9.0-12.0) sec ABG pO2 (83-108) mmHg ABG Total CO2 (19-24) mmol/L ABG O2 Saturation (94-97) % ABG Hematocrit (34.0-46.0) % Glucose (74-99) mg/dL POC Glucose (mg/dL) 188 H 181 H 176 H (75-99) mg/dL Calcium (8.4-10.2) mg/dL Total Bilirubin (0.2-1.3) mg/dL AST (14-36) U/L ALT (9-52) U/L Total Protein (6.3-8.2) g/dL Albumin (3.5-5.0) g/dL 11/30/16 11/30/16 11/30/16 Range/Units 01:16 02:14 04:42 WBC (3.8-10.6) k/uL RBC (3.80-5.40) m/uL Hgb (11.4-16.0) gm/dL Hct (34.0-46.0) % Neutrophils # (1.3-7.7) k/uL PT (9.0-12.0) sec ABG pO2 (83-108) mmHg ABG Total CO2 (19-24) mmol/L ABG O2 Saturation (94-97) % ABG Hematocrit (34.0-46.0) % Glucose (74-99) mg/dL POC Glucose (mg/dL) 131 H 113 H 149 H (75-99) mg/dL Calcium (8.4-10.2) mg/dL Total Bilirubin (0.2-1.3) mg/dL AST (14-36) U/L ALT (9-52) U/L Total Protein (6.3-8.2) g/dL Albumin (3.5-5.0) g/dL 11/30/16 11/30/16 11/30/16 Range/Units 04:54 04:54 04:54 WBC 19.8 H (3.8-10.6) k/uL RBC 2.73 L (3.80-5.40) m/uL Hgb 8.9 L (11.4-16.0) gm/dL Hct 26.1 L (34.0-46.0) % Neutrophils # 16.2 H (1.3-7.7) k/uL PT 12.2 H (9.0-12.0) sec ABG pO2 (83-108) mmHg ABG Total CO2 (19-24) mmol/L ABG O2 Saturation (94-97) % ABG Hematocrit (34.0-46.0) % Glucose 140 H (74-99) mg/dL POC Glucose (mg/dL) (75-99) mg/dL Calcium 8.0 L (8.4-10.2) mg/dL Total Bilirubin 1.4 H (0.2-1.3) mg/dL AST 48 H (14-36) U/L ALT 103 H (9-52) U/L Total Protein 4.5 L (6.3-8.2) g/dL Albumin 2.4 L (3.5-5.0) g/dL 11/30/16 11/30/16 11/30/16 Range/Units 06:07 07:04 08:28 WBC (3.8-10.6) k/uL RBC (3.80-5.40) m/uL Hgb (11.4-16.0) gm/dL Hct (34.0-46.0) % Neutrophils # (1.3-7.7) k/uL PT (9.0-12.0) sec ABG pO2 (83-108) mmHg ABG Total CO2 (19-24) mmol/L ABG O2 Saturation (94-97) % ABG Hematocrit (34.0-46.0) % Glucose (74-99) mg/dL POC Glucose (mg/dL) 138 H 126 H 131 H (75-99) mg/dL Calcium (8.4-10.2) mg/dL Total Bilirubin (0.2-1.3) mg/dL AST (14-36) U/L ALT (9-52) U/L Total Protein (6.3-8.2) g/dL Albumin (3.5-5.0) g/dL 11/30/16 11/30/16 Range/Units 09:20 10:02 WBC (3.8-10.6) k/uL RBC (3.80-5.40) m/uL Hgb (11.4-16.0) gm/dL Hct (34.0-46.0) % Neutrophils # (1.3-7.7) k/uL PT (9.0-12.0) sec ABG pO2 (83-108) mmHg ABG Total CO2 (19-24) mmol/L ABG O2 Saturation (94-97) % ABG Hematocrit (34.0-46.0) % Glucose (74-99) mg/dL POC Glucose (mg/dL) 124 H 157 H (75-99) mg/dL Calcium (8.4-10.2) mg/dL Total Bilirubin (0.2-1.3) mg/dL AST (14-36) U/L ALT (9-52) U/L Total Protein (6.3-8.2) g/dL Albumin (3.5-5.0) g/dL Assessment and Plan Plan: Impression: #1 Non-ST segment elevation myocardial infarction. Found to have multivessel coronary artery disease and is now status post coronary artery bypass grafting. #2 Coronary artery disease with previous stent placements 4. #3 History of chronic tobacco use. #4 Chronic obstructive pulmonary disease, currently inactive and stable. FEV1 value 54% of predicted #5 Hypertension. #6 Hyperlipidemia. #7 Morbid obesity. #8 Postoperative hyperglycemia currently on 3.5 units of insulin for blood glucose control. Plan: The patient was seen and evaluated by Dr. Monique. Her chest x-ray and labs were reviewed. CT services did order Lasix 20 mg IV push 1 today. She is again encouraged regarding the increased use of the incentive spirometer and cough and deep breathing exercises. We will increase her activity as tolerated. We'll continue to follow.
[2016-11-30 11:51] LABS: Glucose,Whole Blood 214 mg/dL (75-99)
--- NOTE | 2016-11-30 11:54 | PN ---
Mrs. Shah is in sinus rhythm, status post bypass surgery, doing well, recovering nicely. She does have some incisional pain, but she is doing well, sitting up and eating. Vital signs are stable. S1, S2 heard normally. Distant heart sounds. Lungs reveal improved air entry. Abdomen and lower extremity exam is unchanged. I would recommend that we continue current medications including increased dose of beta maru. We will continue incentive spirometry and pulmonary toilet and same medications for now.
[2016-11-30] MEDS: KETOROLAC 30 MG/ML 1 ML VIAL IVP SCH ×3 (12:11→23:59)
[2016-11-30 12:46] LABS: Glucose,Whole Blood 186 mg/dL (75-99)
[2016-11-30 14:00] LABS: Glucose,Whole Blood 156 mg/dL (75-99)
[2016-11-30] MEDS: LISINOPRIL 5 MG TAB PO SCH (14:04)
--- NOTE | 2016-11-30 14:13 | P.PN ---
Subjective Date of service 11/30/2016. Progress note being dictated for Dr. Arredondo. Interval history: This is 66-year-old female admitted with acute non-STEMI, status post cardiac cath reporting multivessel vessel CAD. Status post CABG, postop day #2. Sitting up in chair, still only up to 500 on incentive spirometer. Chest x-ray reporting mild left lower lobe infiltrate, possible atelectasis. Received 1 dose of Lasix 20 IV push per cardiothoracic surgery. Currently on insulin drip, being weaned to 3 shot protocol . Diet intake good, consuming 100% of meals. Telemetry sinus rhythm. Review of systems: HEENT: Denies headache or focal deficits. Denies any dizziness or lightheadedness. Respiratory: Denies increase in shortness of breath. Cardiac: Denies any chest pain, palpitations. Complains of generalized soreness. GI: Denies any nausea, vomiting, or diarrhea. Denies any abdominal tenderness. : Denies any dysuria. Psychiatry: Denies any anxiety or depression. Active Medications Generic Name Dose Route Start Last Admin Trade Name Freq PRN Reason Stop Dose Admin Hydrocodone Bitart/Acetaminophen 2 each 11/29/16 14:53 11/30/16 06:01 [place] 5-325 PO 2 each Q4HR PRN Administration Severe Pain Hydrocodone Bitart/Acetaminophen 1 each 11/29/16 14:53 11/29/16 15:59 [place] 5-325 PO 1 each Q4HR PRN Administration Moderate Pain Albuterol/Ipratropium 3 ml 11/29/16 14:54 Duoneb 0.5 Mg-3 Mg/3 Ml Soln INHALATION RT-Q2H PRN Shortness Of Breath Or Wheezing Albuterol/Ipratropium 3 ml 11/29/16 08:00 11/30/16 12:07 Duoneb 0.5 Mg-3 Mg/3 Ml Soln INHALATION 3 ml RT-QID KAREN Administration Aspirin 325 mg 11/29/16 09:00 11/30/16 09:11 Aspirin PO 325 mg DAILY KAREN Administration Atorvastatin Calcium 40 mg 11/29/16 09:00 11/30/16 09:12 Lipitor PO 40 mg DAILY KAREN Administration Benzocaine/Menthol 1 each 11/28/16 15:14 Cepacol Lozenge MUCOUS MEM Q2H PRN Sore Throat Bisacodyl 10 mg 11/29/16 14:54 Dulcolax RECTAL DAILY PRN Constipation Clopidogrel Bisulfate 75 mg 11/29/16 09:00 11/30/16 09:12 Plavix PO 75 mg DAILY [facility] Administration Heparin Sodium (Porcine) 5,000 unit 11/29/16 00:00 11/30/16 09:11 Heparin SQ 5,000 unit Q8HR [facility] Administration Albumin Human 250 ml/ IV 250 mls @ 250 mls/hr 11/28/16 15:14 11/28/16 16:41 Solution IVPB 11/30/16 15:15 250 mls/hr Q1HR PRN Administration For Volume Lactated Ringer's 1,000 mls @ 20 mls/hr 11/28/16 15:14 11/30/16 07:05 Lactated Ringers IV Not Given .Q24H [facility] Insulin Aspart 45 unit 12/01/16 07:30 Novolog Mix 70-30 Vial SQ AC-BRKFST [facility] Insulin Human Lispro 11 unit 11/30/16 17:30 Humalog SQ AC-SUPPER [facility] Insulin Human Lispro 0 unit 11/30/16 12:30 Humalog SQ ACHS [facility] Protocol Insulin Human NPH 11 unit 11/30/16 21:[address] [facility] Ketorolac Tromethamine 15 mg 11/30/16 12:00 11/30/16 12:11 Toradol IVP 12/04/16 07:52 15 mg Q6HR [facility] Administration Lisinopril 5 mg 11/30/16 13:00 Zestril PO DAILY [facility] Magnesium Hydroxide 2,400 mg 11/29/16 14:54 Milk Of Magnesia PO BID PRN Constipation Metoclopramide HCl 10 mg 11/28/16 15:14 Reglan IVP Q4H PRN Nausea And Vomiting Metoprolol Tartrate 25 mg 11/30/16 09:00 11/30/16 09:13 Lopressor PO 25 mg BID [facility] Administration Miscellaneous Information 1 each 11/28/16 15:14 Magnesium Per Protocol MISCELLANE DAILY PRN Per Protocol Protocol Miscellaneous Information 1 each 11/28/16 15:14 Phosphorus Per Protocol MISCELLANE DAILY PRN Per Protocol Protocol Miscellaneous Information 1 each 11/28/16 15:14 Potassium Per Protocol MISCELLANE DAILY PRN Per Protocol Protocol Ondansetron HCl 4 mg 11/28/16 15:14 Zofran IVP Q6HR PRN Nausea And Vomiting Pantoprazole Sodium 40 mg 12/01/16 07:30 Protonix PO AC-BRKFST [facility] Senna/Docusate Sodium 2 each 11/29/16 21:00 11/29/16 20:59 Senokot-S PO 2 each HS KAREN Administration Sodium Chloride 10 ml 11/28/16 21:00 11/30/16 09:44 Saline Flush IV 10 ml BID KAREN Administration Objective - Vital Signs Vital signs: Vital Signs Temp 97.7 F 11/30/16 12:00 Pulse 73 11/30/16 13:00 Resp 18 11/30/16 13:00 BP 125/45 11/30/16 13:00 Pulse Ox 96 11/30/16 13:00 Intake & Output 11/29/16 11/30/16 11/30/16 18:59 06:59 18:59 Intake Total 672.555 774.704 225.525 Output Total 1765 1190 1110 Balance -1092.445 -415.296 -884.475 Weight 112.4 kg 114.5 kg Intake: IV 631.5 360 210 ACETAMINOPHEN IV (For NPO 100 ) 1,000 mg In Empty Bag 1 bag @ 400 mls/hr IVPB Q6HR [facility] Rx#:[id number] Lactated Ringers 1,000 ml 430 360 210 @ 20 mls/hr IV .Q24H [facility] Rx#:[id number] Nitroglycerin-D5w Pmx 50 1.5 mg In Dextrose/Water 1 250ml.bag @ 5 MCG/MIN 1.5 mls/hr IV .Q24H [facility]AREN Rx#: [id number] ceFAZolin 2 gm In Sodium 100 Chloride 0.9% 30 ml @ 60 mls/hr IVPB ONCE PRN Rx#: [id number] Intake, IV Titration 41.055 54.704 15.525 Amount Insulin Regular 100 unit 41.055 54.704 15.525 In Sodium Chloride 0.9% 100 ml @ Per Protocol IV .Q0M KAREN Rx#:[id number] Oral 360 Output: Chest Tube Drainage 400 250 90 Chest Tube Left Pleural/ 400 250 90 Mediastinal Drainage 200 100 145 Right Knee 200 100 145 Urine 1165 840 875 Other: Voiding Method Indwelling Catheter Indwelling Catheter Indwelling Catheter # Bowel Movements 0 ABP, PAP, CO, CI - Last Documented Arterial Blood Pressure 105/96 Pulmonary Artery Pressure 246/246 Cardiac Output 6.1 Cardiac Index 2.8 - Exam PHYSICAL EXAM: VITAL SIGNS: As above GENERAL: [Sitting up in chair, no acute distress] HEENT: [Pupils equal conjunctiva normal, oral mucosa moist. No scleral icterus] NECK: [Supple, Cordis intact, short neck] RESPIRATORY EFFORT:[Normal LUNGS: bilateral bases diminished, occasional fine expiratory wheezes scattered throughout, left basilar crackles, no rhonchi CARDIOVASCULAR[regular S1 and S2, no murmur rub or gallop, trace edema] GI: [Abdomen soft, obese, nontender, positive bowel sounds. No organomegaly.] PSYCH: [Alert and oriented -3, mood and affect normal NEURO: No focal deficits, moves all 4 extremities, strength and sensation grossly intact - Labs CBC & Chem 7: 11/30/16 04:54 11/30/16 04:54 Labs: Abnormal Lab Results - Last 24 Hours (Table) 11/29/16 11/29/16 11/29/16 Range/Units 14:15 15:11 16:09 WBC (3.8-10.6) k/uL RBC (3.80-5.40) m/uL Hgb (11.4-16.0) gm/dL Hct (34.0-46.0) % Neutrophils # (1.3-7.7) k/uL PT (9.0-12.0) sec Glucose (74-99) mg/dL POC Glucose (mg/dL) 135 H 131 H 121 H (75-99) mg/dL Calcium (8.4-10.2) mg/dL Total Bilirubin (0.2-1.3) mg/dL AST (14-36) U/L ALT (9-52) U/L Total Protein (6.3-8.2) g/dL Albumin (3.5-5.0) g/dL 11/29/16 11/29/16 11/29/16 Range/Units 17:20 18:07 19:04 WBC (3.8-10.6) k/uL RBC (3.80-5.40) m/uL Hgb (11.4-16.0) gm/dL Hct (34.0-46.0) % Neutrophils # (1.3-7.7) k/uL PT (9.0-12.0) sec Glucose (74-99) mg/dL POC Glucose (mg/dL) 108 H 133 H 173 H (75-99) mg/dL Calcium (8.4-10.2) mg/dL Total Bilirubin (0.2-1.3) mg/dL AST (14-36) U/L ALT (9-52) U/L Total Protein (6.3-8.2) g/dL Albumin (3.5-5.0) g/dL 11/29/16 11/29/16 11/29/16 Range/Units 20:53 22:11 23:12 WBC (3.8-10.6) k/uL RBC (3.80-5.40) m/uL Hgb (11.4-16.0) gm/dL Hct (34.0-46.0) % Neutrophils # (1.3-7.7) k/uL PT (9.0-12.0) sec Glucose (74-99) mg/dL POC Glucose (mg/dL) 168 H 188 H 181 H (75-99) mg/dL Calcium (8.4-10.2) mg/dL Total Bilirubin (0.2-1.3) mg/dL AST (14-36) U/L ALT (9-52) U/L Total Protein (6.3-8.2) g/dL Albumin (3.5-5.0) g/dL 11/30/16 11/30/16 11/30/16 Range/Units 00:19 01:16 02:14 WBC (3.8-10.6) k/uL RBC (3.80-5.40) m/uL Hgb (11.4-16.0) gm/dL Hct (34.0-46.0) % Neutrophils # (1.3-7.7) k/uL PT (9.0-12.0) sec Glucose (74-99) mg/dL POC Glucose (mg/dL) 176 H 131 H 113 H (75-99) mg/dL Calcium (8.4-10.2) mg/dL Total Bilirubin (0.2-1.3) mg/dL AST (14-36) U/L ALT (9-52) U/L Total Protein (6.3-8.2) g/dL Albumin (3.5-5.0) g/dL 11/30/16 11/30/16 11/30/16 Range/Units 04:42 04:54 04:54 WBC 19.8 H (3.8-10.6) k/uL RBC 2.73 L (3.80-5.40) m/uL Hgb 8.9 L (11.4-16.0) gm/dL Hct 26.1 L (34.0-46.0) % Neutrophils # 16.2 H (1.3-7.7) k/uL PT (9.0-12.0) sec Glucose 140 H (74-99) mg/dL POC Glucose (mg/dL) 149 H (75-99) mg/dL Calcium 8.0 L (8.4-10.2) mg/dL Total Bilirubin 1.4 H (0.2-1.3) mg/dL AST 48 H (14-36) U/L ALT 103 H (9-52) U/L Total Protein 4.5 L (6.3-8.2) g/dL Albumin 2.4 L (3.5-5.0) g/dL 11/30/16 11/30/16 11/30/16 Range/Units 04:54 06:07 07:04 WBC (3.8-10.6) k/uL RBC (3.80-5.40) m/uL Hgb (11.4-16.0) gm/dL Hct (34.0-46.0) % Neutrophils # (1.3-7.7) k/uL PT 12.2 H (9.0-12.0) sec Glucose (74-99) mg/dL POC Glucose (mg/dL) 138 H 126 H (75-99) mg/dL Calcium (8.4-10.2) mg/dL Total Bilirubin (0.2-1.3) mg/dL AST (14-36) U/L ALT (9-52) U/L Total Protein (6.3-8.2) g/dL Albumin (3.5-5.0) g/dL 11/30/16 11/30/16 11/30/16 Range/Units 08:28 09:20 10:02 WBC (3.8-10.6) k/uL RBC (3.80-5.40) m/uL Hgb (11.4-16.0) gm/dL Hct (34.0-46.0) % Neutrophils # (1.3-7.7) k/uL PT (9.0-12.0) sec Glucose (74-99) mg/dL POC Glucose (mg/dL) 131 H 124 H 157 H (75-99) mg/dL Calcium (8.4-10.2) mg/dL Total Bilirubin (0.2-1.3) mg/dL AST (14-36) U/L ALT (9-52) U/L Total Protein (6.3-8.2) g/dL Albumin (3.5-5.0) g/dL 11/30/16 11/30/16 11/30/16 Range/Units 11:00 11:50 12:45 WBC (3.8-10.6) k/uL RBC (3.80-5.40) m/uL Hgb (11.4-16.0) gm/dL Hct (34.0-46.0) % Neutrophils # (1.3-7.7) k/uL PT (9.0-12.0) sec Glucose (74-99) mg/dL POC Glucose (mg/dL) 220 H 214 H 186 H (75-99) mg/dL Calcium (8.4-10.2) mg/dL Total Bilirubin (0.2-1.3) mg/dL AST (14-36) U/L ALT (9-52) U/L Total Protein (6.3-8.2) g/dL Albumin (3.5-5.0) g/dL Assessment and Plan Plan: 1. Acute non-STEMI, status post cardiac catheterization with severe multivessel CAD,Status post CABG 2. [Shortness of breath possibly multifactorial, acute exacerbation COPD as well as CAD]. 3. [Leukocytosis, reactive]. 4. [Anemia, normocytic, of chronic disease]. 5. [Diabetes mellitus type 2, hemoglobin A1c 9.9], on insulin drip ,Outpatient diabetic education classes. 6. [Morbid Obesity, BMI 42.5]. 7. [History of COPD and paroxysmal intermittent asthma]. 8. History of CAD with stent, [place] 9. Essential hypertension 11. Hyperlipidemia 12. Remote history of nicotine dependence 13. Postop anemia, stable 14. Postoperative atelectasis Plan: Continue on current medication regime , Xanax, statin, nebulized bronchodilators , aspirin, beta maru, diuretic, monitoring and symptomatic treatment. Continue with Aggressive pulmonary toileting, patient still only at 500 MLS on her IS. PT. plan is for patient to transfer out of ICU later today to telemetry unit. Further recommendations to follow. The impression and plan of care has been dictated as directed. : I performed a H&P examination of this patient and discussed the same with the dictator. I agree with the dictator's note. Any additional findings/opinions/ etc. will be noted.
[2016-11-30] MEDS: INSULIN LISPRO (humaLOG) 300 UNIT/3 ML VIAL SQ SCH ×3 (14:27→20:25)
[2016-11-30 14:50] LABS: Glucose,Whole Blood 158 mg/dL (75-99)
[2016-11-30 15:59] LABS: Glucose,Whole Blood 145 mg/dL (75-99)
[2016-11-30 16:53] LABS: Glucose,Whole Blood 125 mg/dL (75-99)
[2016-11-30] MEDS ORDERED: INSULIN LISPRO (humaLOG) 300 UNIT/3 ML VIAL SQ SCH (17:30)
[2016-11-30 18:15] LABS: Glucose,Whole Blood 112 mg/dL (75-99)
[2016-11-30 20:25] LABS: Glucose,Whole Blood 166 mg/dL (75-99)
[2016-11-30] MEDS ORDERED: INSULIN NPH 300 UNIT/3 ML VIAL SQ SCH (21:00)
--- NOTE | 2016-11-30 21:16 | PN ---
DATE OF SERVICE: 11/30/2016 This 66-year-old woman who was admitted after CABG, which is being closely monitored. Blood sugar is being closely monitored. I have seen and evaluated the patient with the nurse practitioner. Please refer to the nurse practitioner's notes and impressions documented as scribe for further information. The patient is on protocol at this time. Will continue to monitor. Prognosis guarded. Closely follow with Cardiothoracic Surgery. Further recommendations to follow. MTDD
[2016-11-30] MEDS: SENNOSIDES-DOCUSATE SODIUM 1 EACH TAB PO SCH (21:42)
[2016-12-01 02:46] LABS: Glucose,Whole Blood 223 mg/dL (75-99)
[2016-12-01] MEDS ORDERED: INSULIN LISPRO (humaLOG) 300 UNIT/3 ML VIAL SQ ONE (02:56)
[2016-12-01 05:41] LABS: CH 30.4; CHCM 31.3; HCT 24.4 % (34.0-46.0); HDW 2.46; HGB 8.1 gm/dL (11.4-16.0); MCH 32.2 pg (25.0-35.0); MCV 97.5 fL (80.0-100.0); Mean Platelet Volume 7.1; RDW 14.1 % (11.5-15.5); WBC 16.2 k/uL (3.8-10.6)
[2016-12-01 06:01] LABS: ALT 64 U/L (9-52); AST 25 U/L (14-36); Alkaline Phosphatase 50 U/L (38-126); Anion Gap 7 mmol/L; Blood Urea Nitrogen 23 mg/dL (7-17); Calcium 7.7 mg/dL (8.4-10.2); Carbon Dioxide 25 mmol/L (22-30); Chloride 103 mmol/L (98-107); Glucose 192 mg/dL (74-99); Non-African American GFR(MDRD) >60 (>60 ml/min/1.73 sqM); Potassium 4.5 mmol/L (3.5-5.1); Sodium 135 mmol/L (137-145); Total Bilirubin 0.7 mg/dL (0.2-1.3); Total Protein 4.3 g/dL (6.3-8.2)
[2016-12-01] MEDS: KETOROLAC 30 MG/ML 1 ML VIAL IVP SCH ×5 (07:01→23:38)
[2016-12-01] MEDS: HYDROcodone/APAP 5-325MG 1 EACH TAB PO PRN ×2 (07:13→15:33)
[2016-12-01] MEDS ORDERED: INSULN ASP PRT/INSULIN ASPART 100 UNIT/ML 10 ML VIAL SQ SCH (07:30)
[2016-12-01 07:43] LABS: Glucose,Whole Blood 222 mg/dL (75-99)
[2016-12-01] MEDS: IPRATROPIUM-ALBUTEROL 3 ML NEB INHALATION SCH ×4 (08:08→21:33)
--- NOTE | 2016-12-01 08:11 | XR ---
EXAMINATION TYPE: XR chest 2V DATE OF EXAM: 12/01/2016 8:02 AM COMPARISON: 11/30/2016 TECHNIQUE: PA and lateral views submitted. HISTORY: Chest tube removal FINDINGS: Chest tube is been removed with less than 5% apical pneumothorax. Persistent left-sided consolidation and pleural effusion noted. Heart is enlarged and there is postoperative change. Degenerative change of the spine noted. Surgical clips in the abdomen. IMPRESSION: 1. Less than 5% left apical pneumothorax 2. Postoperative change with left basilar consolidation and small effusion.
--- NOTE | 2016-12-01 08:22 | P.PN ---
Subjective Principal diagnosis: Coronary artery disease, non-STEMI. POD #3 Urgent off pump myocardial revascularization with extracorporeal circulation on standby, WELCH to the mid LAD, saphenous vein graft to the PDA, saphenous vein graft to the OM. Endoscopic vein harvesting of the right greater saphenous vein. Intraoperative transesophageal echocardiogram and epi- aortic scanning. Patient currently sitting up in a recliner in no apparent distress. States pain was better controlled last night. Objective - Vital Signs Vital signs: Vital Signs Temp 98.2 F 12/01/16 04:00 Pulse 69 12/01/16 07:00 Resp 23 12/01/16 07:00 BP 143/57 12/01/16 07:00 Pulse Ox 96 12/01/16 07:00 Intake & Output 11/30/16 12/01/16 12/01/16 18:59 06:59 18:59 Intake Total 365.525 100 0 Output Total 1390 420 Balance -1024.475 -320 0 Weight 114.5 kg Intake: IV 350 0 0 Lactated Ringers 1,000 ml 350 0 0 @ 20 mls/hr IV .Q24H [facility]AREN Rx#:[id number] Intake, IV Titration 15.525 Amount Insulin Regular 100 unit 15.525 In Sodium Chloride 0.9% 100 ml @ Per Protocol IV .Q0M KAREN Rx#:[id number] Oral 100 Output: Chest Tube Drainage 90 Chest Tube Left Pleural/ 90 Mediastinal Drainage 265 270 Right Knee 265 270 Urine 1035 150 Other: Voiding Method Bedpan Bedside Commode # Voids 0 ABP, PAP, CO, CI - Last Documented Arterial Blood Pressure 105/96 Pulmonary Artery Pressure 246/246 Cardiac Output 6.1 Cardiac Index 2.8 - Constitutional General appearance: Present: cooperative, no acute distress, obese - Respiratory Details: Lungs sounds diminished bilaterally. Respirations even, nonlabored. Currently on 2 L nasal cannula. Still only able to achieve 500 mL on incentive spirometry. Cough is much more effective than yesterday. - Cardiovascular Details: S1, S2 present. Regular rate and rhythm, normal sinus rhythm on telemetry, no events noted overnight. Sternum stable. Trace bilateral lower extremity edema present, right greater than left. Heart hugger in place with patient demonstrating appropriate use. Teds/SCDs present. - Gastrointestinal Gastrointestinal Comment(s): Abdomen soft, nontender, nondistended. Active bowel sounds 4 quadrants. Positive flatus, negative BM since surgery. Tolerating diet. - Genitourinary Genitourinary Comment(s): Wall DC'd yesterday. Patient has only voided once since a Wall DC for 150 mL. Bladder scan this morning at 5 AM revealed 89 mL in bladder. - Integumentary Integumentary Comment(s): Anterior chest wall incision covered with dry intact Silverlon dressing. Right lower extremity EVH site well approximated with WALE draining serosanguineous fluid. - Musculoskeletal Musculoskeletal: Present: gait normal, strength equal bilaterally - Psychiatric Psychiatric: Present: A&O x's 3, appropriate affect, intact judgment & insight - Allied health notes Allied health notes reviewed: nursing - Labs CBC & Chem 7: 12/01/16 04:49 12/01/16 04:46 Labs: Abnormal Lab Results - Last 24 Hours (Table) 11/30/16 11/30/16 11/30/16 Range/Units 08:28 09:20 10:02 WBC (3.8-10.6) k/uL RBC (3.80-5.40) m/uL Hgb (11.4-16.0) gm/dL Hct (34.0-46.0) % Sodium (137-145) mmol/L BUN (7-17) mg/dL Glucose (74-99) mg/dL POC Glucose (mg/dL) 131 H 124 H 157 H (75-99) mg/dL Calcium (8.4-10.2) mg/dL ALT (9-52) U/L Total Protein (6.3-8.2) g/dL Albumin (3.5-5.0) g/dL 11/30/16 11/30/16 11/30/16 Range/Units 11:00 11:50 12:45 WBC (3.8-10.6) k/uL RBC (3.80-5.40) m/uL Hgb (11.4-16.0) gm/dL Hct (34.0-46.0) % Sodium (137-145) mmol/L BUN (7-17) mg/dL Glucose (74-99) mg/dL POC Glucose (mg/dL) 220 H 214 H 186 H (75-99) mg/dL Calcium (8.4-10.2) mg/dL ALT (9-52) U/L Total Protein (6.3-8.2) g/dL Albumin (3.5-5.0) g/dL 11/30/16 11/30/16 11/30/16 Range/Units 13:49 14:49 15:58 WBC (3.8-10.6) k/uL RBC (3.80-5.40) m/uL Hgb (11.4-16.0) gm/dL Hct (34.0-46.0) % Sodium (137-145) mmol/L BUN (7-17) mg/dL Glucose (74-99) mg/dL POC Glucose (mg/dL) 156 H 158 H 145 H (75-99) mg/dL Calcium (8.4-10.2) mg/dL ALT (9-52) U/L Total Protein (6.3-8.2) g/dL Albumin (3.5-5.0) g/dL 11/30/16 11/30/16 11/30/16 Range/Units 16:52 18:14 20:23 WBC (3.8-10.6) k/uL RBC (3.80-5.40) m/uL Hgb (11.4-16.0) gm/dL Hct (34.0-46.0) % Sodium (137-145) mmol/L BUN (7-17) mg/dL Glucose (74-99) mg/dL POC Glucose (mg/dL) 125 H 112 H 166 H (75-99) mg/dL Calcium (8.4-10.2) mg/dL ALT (9-52) U/L Total Protein (6.3-8.2) g/dL Albumin (3.5-5.0) g/dL 12/01/16 12/01/16 12/01/16 Range/Units 02:44 04:46 04:49 WBC 16.2 H (3.8-10.6) k/uL RBC 2.50 L (3.80-5.40) m/uL Hgb 8.1 L (11.4-16.0) gm/dL Hct 24.4 L (34.0-46.0) % Sodium 135 L (137-145) mmol/L BUN 23 H (7-17) mg/dL Glucose 192 H (74-99) mg/dL POC Glucose (mg/dL) 223 H (75-99) mg/dL Calcium 7.7 L (8.4-10.2) mg/dL ALT 64 H (9-52) U/L Total Protein 4.3 L (6.3-8.2) g/dL Albumin 2.2 L (3.5-5.0) g/dL 12/01/16 Range/Units 07:42 WBC (3.8-10.6) k/uL RBC (3.80-5.40) m/uL Hgb (11.4-16.0) gm/dL Hct (34.0-46.0) % Sodium (137-145) mmol/L BUN (7-17) mg/dL Glucose (74-99) mg/dL POC Glucose (mg/dL) 222 H (75-99) mg/dL Calcium (8.4-10.2) mg/dL ALT (9-52) U/L Total Protein (6.3-8.2) g/dL Albumin (3.5-5.0) g/dL - Imaging and Cardiology Chest x-ray: image reviewed Assessment and Plan (1) Coronary arteriosclerosis in patient with history of previous myocardial infarction Status: Acute (2) Diabetes mellitus Status: Acute (3) Hypertension Status: Acute (4) Hyperlipidemia Status: Acute (5) COPD exacerbation Status: Acute (6) NSTEMI (non-ST elevated myocardial infarction) Status: Acute Plan: 1. Continue aspirin, Lipitor, heparin, Lipitor, Yefri. 2. Encourage drinking fluids to increase urine output. 3. Insulin and diabetic management per primary care service. 4. Encourage incentive spirometry use/aggressive pulmonary toileting. 5. Encourage increased activity. Out of bed to chair all day with ambulation in the hallway. Physical therapy to follow 6. GI/DVT prophylaxis. 7. Monitor daily labs. 8. Transfer to 6 E. selective care when bed available.
[2016-12-01] MEDS: LACTATED RINGERS 1,000 ML IV SCH (09:22)
[2016-12-01] MEDS: NYSTATIN 100,000 UNIT/ML SUSP 500,000 UNIT/5 ML CUP PO SCH (09:22)
[2016-12-01] MEDS: INSULIN LISPRO (humaLOG) 300 UNIT/3 ML VIAL SQ SCH ×4 (09:39→22:19)
[2016-12-01] MEDS: CLOPIDOGREL 75 MG TAB PO SCH (09:41)
[2016-12-01] MEDS: ATORVASTATIN 40 MG TAB PO SCH (09:41)
[2016-12-01] MEDS: LISINOPRIL 5 MG TAB PO SCH (09:41)
[2016-12-01] MEDS: METOPROLOL TARTRATE 25 MG TAB PO SCH ×2 (09:41→22:17)
[2016-12-01] MEDS: ASPIRIN 325 MG TAB PO SCH (09:41)
[2016-12-01] MEDS: PANTOPRAZOLE 40 MG TABLET PO SCH (09:42)
[2016-12-01] MEDS: HEPARIN SODIUM,PORCINE 5,000 UNIT/ML 1 ML VIAL SQ SCH ×3 (09:42→22:19)
--- NOTE | 2016-12-01 12:13 | PN ---
Mrs. Shah is doing well today. Her tubes are out. She is in sinus rhythm, resting comfortably. Denies chest pain, improved incentive spirometry. Vital signs stable. S1 and S2 heard normally. Short systolic murmur noted. Lungs revealed improved air entry. Abdomen and lower extremity exam unchanged. Plan is to continue current medications, incentive spirometry, increased activity.
[2016-12-01 12:38] LABS: Glucose,Whole Blood 304 mg/dL (75-99)
[2016-12-01 12:49] VITALS: BMI 43.3
[2016-12-01] MEDS: MULTIVITAMINS, THERA 1 EACH TAB PO SCH (13:04)
[2016-12-01] MEDS ORDERED: INSULIN REGULAR BOLUS (FROM DRIP BAG) IV ONE (14:10)
--- NOTE | 2016-12-01 14:18 | P.PN ---
Subjective This is a very pleasant 66-year-old female patient who follows with Dr. Gonzales as her primary care physician. she has a history of hypertension, hyperlipidemia,diabetes mellitus, coronary artery disease with previous stent placements, morbid obesity. She also has a history of chronic obstructive pulmonary disease from previous smoking history and follows with Dr. Monique in our office for the same. She is maintained on Symbicort, Spiriva and albuterol. She presented here yesterday with complaints of increasing shortness of breath on minimal exertion. She also had some back discomfort radiating down her arms. She is found to be a non-ST segment elevation myocardial infarction and the plan is for cardiac catheterization today.she is seen in consultation on the selective care unit. She is currently awake and alert in no acute distress. Her chest x-ray shows evidence of chronic obstructive disease, cardiomegaly and bilateral atelectasis. No significant change from previous. She is maintaining good O2 saturations in the upper 90s on room air. She's been afebrile. She denies any current chest discomfort. No back pain. No palpitations, lightheadedness or dizziness. On 11/27/2016 the patient is being seen in follow-up. The patient has undergone the cardiac catheterization and the patient has progression of disease in the proximal in the mid LAD and significant disease in the first obtuse marginal branch a chronically occluded right coronary artery with collaterals from the left system. Based on that, the patient will be taken to the operating room for a coronary artery bypass surgery tomorrow. As mentioned earlier, the patient has COPD and her baseline FEV1 is in order of 53-54% of predicted consistent with moderately severe disease. Nevertheless, her disease not in acute exacerbation. Her white cell count slightly elevated probably a steroid effect. No signs of septicemia. She is able to climb a flight of stairs without any major difficulties. On 11/29/2016 the patient is being seen postop day #1. She underwent three- vessel bypass surgery with WELCH to LAD and saphenous vein graft to OM and PDA. Patient was weaned off the mechanical ventilator and she was extubated yesterday without any major difficulties. This morning she is on oxygen at 2 L/ m nasal cannula. As mentioned earlier she has moderate to severe COPD and her FEV1 is no order a 53% of predicted. She is a bit bronchospastic and wheezy and she is using DuoNeb nebulized treatments around the clock. She has a distended and left pleural chest tube. Output from the chest tubes are essentially has been 11 50 mL since surgery. Hemoglobin is stable at 8.8. The patient is hemodynamically stable. The [place] catheter was removed earlier this morning. Earlier than that the patient had a cardiac output of 6.1 with an index of 2.8.. Pressures were 25/18. The patient has adequate urine output. Pain is under good control. She is on an insulin drip at 1.5 units an hour. The patient was on Cleviprex drip yesterday which was weaned off and discontinued and she is currently on nitroglycerin drip which will be essentially weaned off and discontinued. She is awake. She is sitting up on a chair. No other significant events overnight. The chest x-ray from this morning shows adequate expansion of both lungs. There is some atelectatic changes and small effusion the left lung base. Chest tubes in good location. Sternum stable clean and intact. The sternal clips were visualized. On 12/01/2016 the patient is postop day #3. The patient is doing well. All of the chest tubes have been removed. She is ambulating in the hallway. Pulmonary status is stable. The patient is having some limited amount of wheezing and she is using incentive spirometer and she is using bronchodilators [id number]. Surgical wound site is dry clean and intact. No chest tightness. No significant shortness of breath. No major swelling in lower extremities. All of the surgical wound sites of dry clean and intact. Objective - Vital Signs Vital signs: Vital Signs Temp 98.2 F 12/01/16 08:00 Pulse 77 12/01/16 11:54 Resp 23 12/01/16 11:11 BP 113/59 12/01/16 11:00 Pulse Ox 93 L 12/01/16 08:00 Intake & Output 11/30/16 12/01/16 12/01/16 18:59 06:59 18:59 Intake Total 365.525 100 0 Output Total 1390 420 140 Balance -1024.475 -320 -140 Weight 114.5 kg 114.5 kg Intake: IV 350 0 0 Lactated Ringers 1,000 ml 350 0 0 @ 20 mls/hr IV .Q24H KAREN Rx#:[id number] Intake, IV Titration 15.525 Amount Insulin Regular 100 unit 15.525 In Sodium Chloride 0.9% 100 ml @ Per Protocol IV .Q0M KAREN Rx#:[id number] Oral 100 Output: Chest Tube Drainage 90 Chest Tube Left Pleural/ 90 Mediastinal Drainage 265 270 140 Right Knee 265 270 140 Urine 1035 150 0 Other: Voiding Method Bedpan Bedside Commode # Voids 0 # Bowel Movements 0 ABP, PAP, CO, CI - Last Documented Arterial Blood Pressure 105/96 Pulmonary Artery Pressure 246/246 Cardiac Output 6.1 Cardiac Index 2.8 - Exam Head exam was generally normal. There was no scleral icterus or corneal arcus. Mucous membranes were moist. Neck is short and supple and there is significant crowding of the posterior oropharynx. Lungs sounds are diminished bilaterally especially in the lung bases and there is some progression of the expiratory phase of breathing and scattered expiratory wheezes bilaterally. Heart sounds are regular, positive S1-S2 and his sternum stable clean and intact. No rubs or any significant murmurs appreciated. All of the chest tubes are in place. Abdomen is obese soft and the organs cannot be palpated accurately because of her morbid obesity. Extremities are within normal limits. No cyanosis or clubbing. Surgical wound sites are all dry clean and intact. Neurologically, the patient is awake and alert. - Labs CBC & Chem 7: 12/01/16 04:49 12/01/16 04:46 Labs: Abnormal Lab Results - Last 24 Hours (Table) 11/30/16 11/30/16 11/30/16 Range/Units 14:49 15:58 16:52 WBC (3.8-10.6) k/uL RBC (3.80-5.40) m/uL Hgb (11.4-16.0) gm/dL Hct (34.0-46.0) % Sodium (137-145) mmol/L BUN (7-17) mg/dL Glucose (74-99) mg/dL POC Glucose (mg/dL) 158 H 145 H 125 H (75-99) mg/dL Calcium (8.4-10.2) mg/dL ALT (9-52) U/L Total Protein (6.3-8.2) g/dL Albumin (3.5-5.0) g/dL 11/30/16 11/30/16 12/01/16 Range/Units 18:14 20:23 02:44 WBC (3.8-10.6) k/uL RBC (3.80-5.40) m/uL Hgb (11.4-16.0) gm/dL Hct (34.0-46.0) % Sodium (137-145) mmol/L BUN (7-17) mg/dL Glucose (74-99) mg/dL POC Glucose (mg/dL) 112 H 166 H 223 H (75-99) mg/dL Calcium (8.4-10.2) mg/dL ALT (9-52) U/L Total Protein (6.3-8.2) g/dL Albumin (3.5-5.0) g/dL 12/01/16 12/01/16 12/01/16 Range/Units 04:46 04:49 07:42 WBC 16.2 H (3.8-10.6) k/uL RBC 2.50 L (3.80-5.40) m/uL Hgb 8.1 L (11.4-16.0) gm/dL Hct 24.4 L (34.0-46.0) % Sodium 135 L (137-145) mmol/L BUN 23 H (7-17) mg/dL Glucose 192 H (74-99) mg/dL POC Glucose (mg/dL) 222 H (75-99) mg/dL Calcium 7.7 L (8.4-10.2) mg/dL ALT 64 H (9-52) U/L Total Protein 4.3 L (6.3-8.2) g/dL Albumin 2.2 L (3.5-5.0) g/dL 12/01/16 Range/Units 12:35 WBC (3.8-10.6) k/uL RBC (3.80-5.40) m/uL Hgb (11.4-16.0) gm/dL Hct (34.0-46.0) % Sodium (137-145) mmol/L BUN (7-17) mg/dL Glucose (74-99) mg/dL POC Glucose (mg/dL) 304 H (75-99) mg/dL Calcium (8.4-10.2) mg/dL ALT (9-52) U/L Total Protein (6.3-8.2) g/dL Albumin (3.5-5.0) g/dL Assessment and Plan Plan: Assessment 1 multivessel coronary artery disease not abnormal to percutaneous revascularization/angioplasty/stenting. Patient is status post non-ST segment elevation myocardial infarction. The patient is status post three-vessel bypass surgery with WELCH to LAD and the patient is postop day #3. The patient was weaned off the mechanical ventilator and she was extubated without any major difficulties pH remains hemodynamically stable. She is on no pressors. Cardiac output is adequate. Urine output is adequate. Chest x-ray from this morning shows postsurgical changes without any acute complications. 2 COPD moderate to severe with a baseline FEV1 of 53-54% of predicted. 3 morbid obesity 4 hypertension 6 hyperlipidemia 7 smoker 8 post operative anemia, hemoglobin is stable 9 postoperative chest wall pain well controlled 10 postoperative hyperglycemic currently on 1.5 units of insulin for blood sugar control Plan This patient is doing extremely well. Continue the pulmonate toileting. Continue bronchodilators. Continues incentive spirometer use. Medications were appropriate at this point. We'll follow. She'll be moved to telemetry unit today.
[2016-12-01] MEDS ORDERED: INSULIN REGULAR 100 UNIT in SODIUM CHLORIDE 0.9% 100 ML IV SCH (14:45)
[2016-12-01 15:19] LABS: Glucose,Whole Blood 256 mg/dL (75-99)
[2016-12-01] MEDS: INSULIN GLARGINE 100 UNIT/ML 10 ML VIAL SQ SCH (15:30)
[2016-12-01] MEDS: GABAPENTIN 300 MG CAP PO SCH ×2 (15:34→22:19)
[2016-12-01 16:11] LABS: Glucose,Whole Blood 224 mg/dL (75-99)
--- NOTE | 2016-12-01 16:52 | P.PN ---
Subjective Date of service 12/01/2016. Progress note being dictated for Dr. Arredondo. Interval history: This is 66-year-old female admitted with acute non-STEMI, status post cardiac cath reporting multivessel vessel CAD. Sitting up in chair. Incentive spirometer remains at 500. Continues on nebulized bronchodilators ATC, mild wheezing scattered throughout. Maintaining O2 sats of 94% on 2 L nasal cannula. Chest x-ray noted. Hyperglycemic, remains on insulin drip. Good diet intake. Telemetry sinus rhythm. Patient is telemetry overflow, awaiting a bed. Objective - Vital Signs Vital signs: Vital Signs Temp 98.4 F 12/01/16 12:00 Pulse 73 12/01/16 14:00 Resp 25 H 12/01/16 14:00 BP 113/59 12/01/16 12:00 Pulse Ox 94 L 12/01/16 12:00 Intake & Output 11/30/16 12/01/16 12/01/16 18:59 06:59 18:59 Intake Total 365.525 100 0 Output Total 1390 420 140 Balance -1024.475 -320 -140 Weight 114.5 kg 114.5 kg Intake: IV 350 0 0 Lactated Ringers 1,000 ml 350 0 0 @ 20 mls/hr IV .Q24H KAREN Rx#:[id number] Intake, IV Titration 15.525 Amount Insulin Regular 100 unit 15.525 In Sodium Chloride 0.9% 100 ml @ Per Protocol IV .Q0M KAREN Rx#:[id number] Oral 100 Output: Chest Tube Drainage 90 Chest Tube Left Pleural/ 90 Mediastinal Drainage 265 270 140 Right Knee 265 270 140 Urine 1035 150 0 Other: Voiding Method Bedpan Bedside Commode # Voids 0 # Bowel Movements 0 ABP, PAP, CO, CI - Last Documented Arterial Blood Pressure 105/96 Pulmonary Artery Pressure 246/246 Cardiac Output 6.1 Cardiac Index 2.8 - Exam PHYSICAL EXAM: VITAL SIGNS: As above GENERAL: [Sitting up in chair, no acute distress] HEENT: [Pupils equal conjunctiva normal, oral mucosa moist. No scleral icterus] NECK: [Supple, Cordis intact, short neck] RESPIRATORY EFFORT:[Normal LUNGS: bilateral bases diminished, occasional fine bilateral scattered expiratory wheeze CARDIOVASCULAR[regular S1 and S2, no significant murmur rub or gallop, trace edema] GI: [Abdomen soft, obese, nontender, positive bowel sounds. No organomegaly.] PSYCH: [Alert and oriented -3, mood and affect normal NEURO: No focal deficits, moves all 4 extremities, strength and sensation grossly intact - Labs CBC & Chem 7: 12/01/16 04:49 12/01/16 04:46 Labs: Abnormal Lab Results - Last 24 Hours (Table) 11/30/16 11/30/16 11/30/16 Range/Units 16:52 18:14 20:23 WBC (3.8-10.6) k/uL RBC (3.80-5.40) m/uL Hgb (11.4-16.0) gm/dL Hct (34.0-46.0) % Sodium (137-145) mmol/L BUN (7-17) mg/dL Glucose (74-99) mg/dL POC Glucose (mg/dL) 125 H 112 H 166 H (75-99) mg/dL Calcium (8.4-10.2) mg/dL ALT (9-52) U/L Total Protein (6.3-8.2) g/dL Albumin (3.5-5.0) g/dL 12/01/16 12/01/16 12/01/16 Range/Units 02:44 04:46 04:49 WBC 16.2 H (3.8-10.6) k/uL RBC 2.50 L (3.80-5.40) m/uL Hgb 8.1 L (11.4-16.0) gm/dL Hct 24.4 L (34.0-46.0) % Sodium 135 L (137-145) mmol/L BUN 23 H (7-17) mg/dL Glucose 192 H (74-99) mg/dL POC Glucose (mg/dL) 223 H (75-99) mg/dL Calcium 7.7 L (8.4-10.2) mg/dL ALT 64 H (9-52) U/L Total Protein 4.3 L (6.3-8.2) g/dL Albumin 2.2 L (3.5-5.0) g/dL 12/01/16 12/01/16 12/01/16 Range/Units 07:42 12:35 15:18 WBC (3.8-10.6) k/uL RBC (3.80-5.40) m/uL Hgb (11.4-16.0) gm/dL Hct (34.0-46.0) % Sodium (137-145) mmol/L BUN (7-17) mg/dL Glucose (74-99) mg/dL POC Glucose (mg/dL) 222 H 304 H 256 H (75-99) mg/dL Calcium (8.4-10.2) mg/dL ALT (9-52) U/L Total Protein (6.3-8.2) g/dL Albumin (3.5-5.0) g/dL 12/01/16 Range/Units 16:09 WBC (3.8-10.6) k/uL RBC (3.80-5.40) m/uL Hgb (11.4-16.0) gm/dL Hct (34.0-46.0) % Sodium (137-145) mmol/L BUN (7-17) mg/dL Glucose (74-99) mg/dL POC Glucose (mg/dL) 224 H (75-99) mg/dL Calcium (8.4-10.2) mg/dL ALT (9-52) U/L Total Protein (6.3-8.2) g/dL Albumin (3.5-5.0) g/dL Assessment and Plan Plan: 1. Acute non-STEMI, status post cardiac catheterization with severe multivessel CAD,Status post CABG 2. [Shortness of breath possibly multifactorial, acute exacerbation COPD as well as CAD]. 3. [Leukocytosis, reactive]. 4. [Anemia, normocytic, of chronic disease]. 5. [Diabetes mellitus type 2, hemoglobin A1c 9.9], on insulin drip ,Outpatient diabetic education classes. 6. [Morbid Obesity, BMI 42.5]. 7. [History of COPD and paroxysmal intermittent asthma]. 8. History of CAD with stent, [place] 9. Essential hypertension 11. Hyperlipidemia 12. Remote history of nicotine dependence 13. Postop anemia, stable 14. Postoperative atelectasis Plan: Continue on current medication regime , Xanax, statin, nebulized bronchodilators , aspirin, beta maru, diuretic, monitoring and symptomatic treatment. Weaning off insulin drip, RN has verified patient's diabetic home med regime. Discontinue insulin drip when blood sugar less than 180 and initiate patient's home med regime as ordered. Aggressive pulmonary toileting, PT. patient is a 6 E. overflow patient awaiting transfer. Further recommendations to follow. The impression and plan of care has been dictated as directed. : I performed a H&P examination of this patient and discussed the same with the dictator. I agree with the dictator's note. Any additional findings/opinions/ etc. will be noted.
[2016-12-01 16:54] LABS: Glucose,Whole Blood 178 mg/dL (75-99)
[2016-12-01] MEDS: metFORMIN 850 MG TAB PO SCH ×2 (17:35→22:19)
--- NOTE | 2016-12-01 20:30 | PN ---
DATE OF SERVICE: 12/01/2016 This 66-year-old woman who was admitted with CAD, CABG, is being closely monitored. Blood sugar is still elevated. Seen and evaluated the patient along with the nurse practitioner. Please refer to the nurse practitioner's notes and impressions documented as a scribe for further information. Currently the sugars are elevated. Past medical history reviewed. REVIEW OF SYSTEMS: CARDIOVASCULAR SYSTEM: No angina, palpitations. RESPIRATORY SYSTEM: As mentioned earlier. GI: As mentioned earlier. : No dysuria, retention. NERVOUS SYSTEM: No numbness or weakness. Current medications are reviewed and include: 1. Aspen. 2. DuoNeb. 3. Insulin. 4. Lipitor. 5. Dulcolax. 6. Plavix. 7. Toradol. 8. Zestril. 9. Glucophage. RECOMMENDATIONS AND DISCUSSION: In this 66-year-old woman who presented after surgery, please refer to the nurse dictation's dictation for detailed diagnoses; however, at this time the patient seems to be requiring more insulin than the protocol. Patient taking a significant amount of insulin at home, including insulin 70 units before supper as well as 60 units in the morning and Lantus at bedtime. I recommend transitioning the insulin as at home and also consider IV insulin drip currently to reduce the blood sugars. Closely monitor. Further recommendations to follow. Discussed with the patient. Discussed with staff. RIGOBERTO
[2016-12-01 20:50] LABS: Glucose,Whole Blood 106 mg/dL (75-99)
[2016-12-01] MEDS: SENNOSIDES-DOCUSATE SODIUM 1 EACH TAB PO SCH (22:23)
[2016-12-02 03:12] LABS: Glucose,Whole Blood 72 mg/dL (75-99)
[2016-12-02 06:13] LABS: CH 30.8; HCT 24.5 % (34.0-46.0); HDW 2.48; HGB 7.7 gm/dL (11.4-16.0); Hypochromasia Slight; MCH 31.3 pg (25.0-35.0); MCHC 31.4 g/dL (31.0-37.0); MCV 99.9 fL (80.0-100.0); Macrocytosis Slight; Mean Platelet Volume 7.1; RBC 2.45 m/uL (3.80-5.40); RDW 14.1 % (11.5-15.5); WBC 17.5 k/uL (3.8-10.6)
[2016-12-02 06:35] LABS: ALT 52 U/L (9-52); AST 22 U/L (14-36); Alkaline Phosphatase 50 U/L (38-126); Anion Gap 8 mmol/L; Blood Urea Nitrogen 31 mg/dL (7-17); Calcium 8.2 mg/dL (8.4-10.2); Carbon Dioxide 27 mmol/L (22-30); Chloride 102 mmol/L (98-107); Glucose 81 mg/dL (74-99); Non-African American GFR(MDRD) 55 (>60 ml/min/1.73 sqM); Potassium 4.2 mmol/L (3.5-5.1); Sodium 137 mmol/L (137-145); Total Bilirubin 0.7 mg/dL (0.2-1.3); Total Protein 4.7 g/dL (6.3-8.2)
[2016-12-02 06:50] LABS: Glucose,Whole Blood 83 mg/dL (75-99)
[2016-12-02] MEDS: INSULIN LISPRO (humaLOG) 300 UNIT/3 ML VIAL SQ SCH ×7 (07:01→22:23)
[2016-12-02] MEDS: KETOROLAC 30 MG/ML 1 ML VIAL IVP SCH ×4 (07:33→22:22)
[2016-12-02] MEDS: PANTOPRAZOLE 40 MG TABLET PO SCH (07:34)
[2016-12-02] MEDS: metFORMIN 850 MG TAB PO SCH ×3 (07:34→22:21)
[2016-12-02] MEDS: LISINOPRIL 5 MG TAB PO SCH (08:52)
[2016-12-02] MEDS: CLOPIDOGREL 75 MG TAB PO SCH (08:52)
[2016-12-02] MEDS: HEPARIN SODIUM,PORCINE 5,000 UNIT/ML 1 ML VIAL SQ SCH ×3 (08:52→22:28)
[2016-12-02] MEDS: ATORVASTATIN 40 MG TAB PO SCH (08:52)
[2016-12-02] MEDS: GABAPENTIN 300 MG CAP PO SCH ×3 (08:52→22:22)
[2016-12-02] MEDS: ASPIRIN 325 MG TAB PO SCH (08:52)
[2016-12-02] MEDS: METOPROLOL TARTRATE 25 MG TAB PO SCH ×2 (08:52→22:21)
[2016-12-02] MEDS: IPRATROPIUM-ALBUTEROL 3 ML NEB INHALATION SCH ×4 (09:03→21:18)
--- NOTE | 2016-12-02 11:32 | P.PN ---
<Aman Weaver Noe - Last Filed: 12/02/16 11:30> Progress Note - Text CV Surgery Nursing Principal diagnosis: Coronary artery disease, non-STEMI. POD #4 Urgent off pump myocardial revascularization with extracorporeal circulation on standby, WELCH to the mid LAD, a reverse greater saphenous vein graft to the PDA, a reverse greater saphenous vein graft to the OM. Endoscopic vein harvesting of the right greater saphenous vein. Intraoperative transesophageal echocardiogram and epi-aortic scanning. Patient awake and alert, no distress noted, no specific complaints, she is sitting up to the bedside chair. Vital Signs: Afebrile Vital Signs - 24 hr 12/01/16 12/01/16 12/01/16 11:00 11:11 11:43 Temperature Pulse Rate 77 76 Pulse Rate [ Pulse Oximetery ] Respiratory 23 23 Rate Blood Pressure 113/59 Blood Pressure [Right Arm] O2 Sat by Pulse Oximetry 12/01/16 12/01/16 12/01/16 11:54 12:00 13:00 Temperature 98.4 F Pulse Rate 77 80 75 Pulse Rate [ Pulse Oximetery ] Respiratory 22 21 Rate Blood Pressure 113/59 Blood Pressure [Right Arm] O2 Sat by Pulse 94 L Oximetry 12/01/16 12/01/16 12/01/16 14:00 15:00 16:00 Temperature Pulse Rate 73 78 Pulse Rate [ Pulse Oximetery ] Respiratory 25 H 27 H 32 H Rate Blood Pressure Blood Pressure [Right Arm] O2 Sat by Pulse Oximetry 12/01/16 12/01/16 12/01/16 16:11 18:30 20:00 Temperature 98.2 F 97.0 F L 98.5 F Pulse Rate 79 Pulse Rate [ 79 74 Pulse Oximetery ] Respiratory 32 H 18 18 Rate Blood Pressure 114/68 Blood Pressure 117/59 134/61 [Right Arm] O2 Sat by Pulse 94 L 95 97 Oximetry 12/02/16 12/02/16 12/02/16 00:00 03:50 08:00 Temperature 97.9 F Pulse Rate Pulse Rate [ 77 71 74 Pulse Oximetery ] Respiratory 18 18 20 Rate Blood Pressure Blood Pressure 123/63 119/55 [Right Arm] O2 Sat by Pulse 97 92 L Oximetry 12/02/16 12/02/16 09:16 09:27 Temperature Pulse Rate 82 86 Pulse Rate [ Pulse Oximetery ] Respiratory Rate Blood Pressure Blood Pressure [Right Arm] O2 Sat by Pulse 93 L Oximetry Labs: Short CBC 12/02/16 Range/Units 05:45 WBC 17.5 H (3.8-10.6) k/uL Hgb 7.7 L (11.4-16.0) gm/dL Hct 24.5 L (34.0-46.0) % Plt Count 252 (150-450) k/uL BMP 12/02/16 05:45 Sodium 137 Potassium 4.2 Chloride 102 Carbon Dioxide 27 BUN 31 H Creatinine 1.00 Glucose 81 Calcium 8.2 L Liver Function 12/02/16 Range/Units 05:45 Total Bilirubin 0.7 (0.2-1.3) mg/dL AST 22 (14-36) U/L ALT 52 (9-52) U/L Alkaline Phosphatase 50 (38-126) U/L Albumin 2.4 L (3.5-5.0) g/dL Microbiology 11/26/16 14:00 Urine,Clean Catch Urine Culture - Final 11/26/16 01:40 Nasal Swab Nasal Screen MRSA/MSSA (LIVIA) - Final Lungs: Essentially clear throughout, diminished bilateral bases. Respirations are even and unlabored. O2 sat: 93% on room air. I/S: 500 mL, reviewed with the patient importance of using her incentive spirometry every hour while awake. The patient did give a good return demonstration on her incentive spirometry use. Heart: S1S2, regular rhythm and rate, negative for S3, gallop or murmur. Remote telemetry showing normal sinus rhythm with first-degree heart block heart rate 74. Sternum stable, chest incision clean with silverlon dressing clean and dry. Heart hugger in place, patient demonstrating proper use of the heart hugger. Right leg incisions clean dry and well approximated. No drainage noted. WALE drain in place, 220 mL output in the last 8 hours, 430 mL output in the last 24 hours. Knee-high BUTCH hose and sequential compression devices in place to bilateral lower extremities. Abdomen: Soft, Positive bowel sounds present in all 4 quadrants. CBGs: 72-256 mg/dL in the last 24 hours. U/O: Adequate. 24 hr Total: Intake & Output 11/30/16 12/01/16 12/02/16 12/03/16 06:59 06:59 06:59 06:59 Intake Total 1447.259 465.525 0 100 Output Total 2955 1810 310 120 Balance -1507.741 -1344.475 -310 -20 Weight 114.5 kg 114.5 kg 115.1 kg Active Medications Hydrocodone Bitart/Acetaminophen (Sumerco 5-325) 2 each PO Q4HR PRN PRN Reason: Severe Pain Last Admin: 12/01/16 15:33 Dose: 2 each Hydrocodone Bitart/Acetaminophen (Sumerco 5-325) 1 each PO Q4HR PRN PRN Reason: Moderate Pain Last Admin: 12/01/16 07:13 Dose: 1 each Albuterol/Ipratropium (Duoneb 0.5 Mg-3 Mg/3 Ml Soln) 3 ml INHALATION RT-Q2H PRN PRN Reason: Shortness Of Breath Or Wheezing Albuterol/Ipratropium (Duoneb 0.5 Mg-3 Mg/3 Ml Soln) 3 ml INHALATION RT-QID [facility] Last Admin: 12/02/16 09:03 Dose: 3 ml Aspirin (Aspirin) 325 mg PO DAILY [facility] Last Admin: 12/02/16 08:52 Dose: 325 mg Atorvastatin Calcium (Lipitor) 40 mg PO DAILY [facility] Last Admin: 12/02/16 08:52 Dose: 40 mg Benzocaine/Menthol (Cepacol Lozenge) 1 each MUCOUS MEM Q2H PRN PRN Reason: Sore Throat Bisacodyl (Dulcolax) 10 mg RECTAL DAILY PRN PRN Reason: Constipation Clopidogrel Bisulfate (Plavix) 75 mg PO DAILY [facility] Last Admin: 12/02/16 08:52 Dose: 75 mg Gabapentin (Neurontin) 300 mg PO TID [facility] Last Admin: 12/02/16 08:52 Dose: 300 mg Heparin Sodium (Porcine) (Heparin) 5,000 unit SQ Q8HR [facility] Last Admin: 12/02/16 08:52 Dose: 5,000 unit Insulin Glargine (Lantus) 60 unit SQ HS [facility] Last Admin: 12/01/16 15:30 Dose: 60 unit Insulin Human Lispro (Humalog) 40 unit SQ AC-SUPPER [facility] Last Admin: 12/01/16 17:40 Dose: 40 unit Insulin Human Lispro (Humalog) 0 unit SQ [id number] [facility] PRN Reason: Protocol Last Admin: 12/02/16 07:01 Dose: Not Given Insulin Human Lispro (Humalog) 20 unit SQ -BRKFST [facility] Last Admin: 12/02/16 07:34 Dose: 20 unit Insulin Human Lispro (Humalog) 30 unit SQ AC-LUNCH [facility] Ketorolac Tromethamine (Toradol) 15 mg IVP Q6HR [facility] Stop: 12/04/16 07:52 Last Admin: 12/02/16 07:33 Dose: 15 mg Lisinopril (Zestril) 5 mg PO DAILY [facility] Last Admin: 12/02/16 08:52 Dose: 5 mg Magnesium Hydroxide (Milk Of Magnesia) 2,400 mg PO BID PRN PRN Reason: Constipation Last Admin: 12/01/16 13:04 Dose: 2,400 mg Metformin HCl (Glucophage) 1,700 mg PO BID-W/MEALS [facility] Last Admin: 12/02/16 07:34 Dose: 1,700 mg Metformin HCl (Glucophage) [address] [facility] Last Admin: 12/01/16 22:19 Dose: 850 mg Metoclopramide HCl (Reglan) 10 mg IVP Q4H PRN PRN Reason: Nausea And Vomiting Metoprolol Tartrate (Lopressor) 25 mg PO BID [facility] Last Admin: 12/02/16 08:52 Dose: 25 mg Miscellaneous Information (Magnesium Per Protocol) 1 each MISCELLANE DAILY PRN ; Protocol PRN Reason: Per Protocol Miscellaneous Information (Phosphorus Per Protocol) 1 each MISCELLANE DAILY PRN ; Protocol PRN Reason: Per Protocol Miscellaneous Information (Potassium Per Protocol) 1 each MISCELLANE DAILY PRN ; Protocol PRN Reason: Per Protocol Multivitamins (Theragran) 1 each PO DAILY@1200 [facility] Last Admin: 12/01/16 13:04 Dose: 1 each Ondansetron HCl (Zofran) 4 mg IVP Q6HR PRN PRN Reason: Nausea And Vomiting Pantoprazole Sodium (Protonix) 40 mg PO -BRKFST [facility] Last Admin: 12/02/16 07:34 Dose: 40 mg Senna/Docusate Sodium (Senokot-S) 2 each PO HS [facility] Last Admin: 12/01/16 22:23 Dose: 2 each Sodium Chloride (Saline Flush) 10 ml IV Q12HR [facility] Last Admin: 12/02/16 08:52 Dose: 10 ml Plan: 1. Continue aspirin, Lipitor, heparin, Lipitor, Yefri. 2. Encourage increased activity. Out of bed to chair all day with ambulation in the hallway. Physical therapy to follow. 3. Insulin and diabetic management per primary care service, permit technician consulted and following. 4. Encourage incentive spirometry use every hour while awake. 5. GI/DVT prophylaxis. 6. Monitor daily labs. 7. Discharge planning in place. <Dirk Neal - Last Filed: 12/02/16 11:37> Progress Note - Text The patient was seen and examined. I agree with the above assessment and plan. She is currently ambulating with assistance. She is using nasal cannula oxygen as needed. Her laboratory studies were reviewed. White blood cell count is 17,000 but she is afebrile and her wounds appear to be seen dry and intact. We'll continue to monitor it for now. She will likely be discharged home the next few days.
[2016-12-02 11:34] LABS: Glucose,Whole Blood 126 mg/dL (75-99)
[2016-12-02] MEDS: MULTIVITAMINS, THERA 1 EACH TAB PO SCH (12:21)
--- NOTE | 2016-12-02 13:30 | P.PN ---
Subjective This is a very pleasant 66-year-old female patient who follows with Dr. Gonzales as her primary care physician. she has a history of hypertension, hyperlipidemia,diabetes mellitus, coronary artery disease with previous stent placements, morbid obesity. She also has a history of chronic obstructive pulmonary disease from previous smoking history and follows with Dr. Monique in our office for the same. She is maintained on Symbicort, Spiriva and albuterol. She presented here yesterday with complaints of increasing shortness of breath on minimal exertion. She also had some back discomfort radiating down her arms. She is found to be a non-ST segment elevation myocardial infarction and the plan is for cardiac catheterization today.she is seen in consultation on the selective care unit. She is currently awake and alert in no acute distress. Her chest x-ray shows evidence of chronic obstructive disease, cardiomegaly and bilateral atelectasis. No significant change from previous. She is maintaining good O2 saturations in the upper 90s on room air. She's been afebrile. She denies any current chest discomfort. No back pain. No palpitations, lightheadedness or dizziness. On 11/27/2016 the patient is being seen in follow-up. The patient has undergone the cardiac catheterization and the patient has progression of disease in the proximal in the mid LAD and significant disease in the first obtuse marginal branch a chronically occluded right coronary artery with collaterals from the left system. Based on that, the patient will be taken to the operating room for a coronary artery bypass surgery tomorrow. As mentioned earlier, the patient has COPD and her baseline FEV1 is in order of 53-54% of predicted consistent with moderately severe disease. Nevertheless, her disease not in acute exacerbation. Her white cell count slightly elevated probably a steroid effect. No signs of septicemia. She is able to climb a flight of stairs without any major difficulties. On 11/29/2016 the patient is being seen postop day #1. She underwent three- vessel bypass surgery with WELCH to LAD and saphenous vein graft to OM and PDA. Patient was weaned off the mechanical ventilator and she was extubated yesterday without any major difficulties. This morning she is on oxygen at 2 L/ m nasal cannula. As mentioned earlier she has moderate to severe COPD and her FEV1 is no order a 53% of predicted. She is a bit bronchospastic and wheezy and she is using DuoNeb nebulized treatments around the clock. She has a distended and left pleural chest tube. Output from the chest tubes are essentially has been 11 50 mL since surgery. Hemoglobin is stable at 8.8. The patient is hemodynamically stable. The [place] catheter was removed earlier this morning. Earlier than that the patient had a cardiac output of 6.1 with an index of 2.8.. Pressures were 25/18. The patient has adequate urine output. Pain is under good control. She is on an insulin drip at 1.5 units an hour. The patient was on Cleviprex drip yesterday which was weaned off and discontinued and she is currently on nitroglycerin drip which will be essentially weaned off and discontinued. She is awake. She is sitting up on a chair. No other significant events overnight. The chest x-ray from this morning shows adequate expansion of both lungs. There is some atelectatic changes and small effusion the left lung base. Chest tubes in good location. Sternum stable clean and intact. The sternal clips were visualized. On 12/01/2016 the patient is postop day #3. The patient is doing well. All of the chest tubes have been removed. She is ambulating in the hallway. Pulmonary status is stable. The patient is having some limited amount of wheezing and she is using incentive spirometer and she is using bronchodilators [id number]. Surgical wound site is dry clean and intact. No chest tightness. No significant shortness of breath. No major swelling in lower extremities. All of the surgical wound sites of dry clean and intact. On 12/02/2016 the patient is doing well she is postop day #4. She is up for a bath. Ambulating. No respiratory difficulties. Sternum is stable clean and intact. No other significant events over the past 24 hours. Objective - Vital Signs Vital signs: Vital Signs Temp 97.9 F 12/02/16 08:00 Pulse 84 12/02/16 11:37 Resp 20 12/02/16 08:00 BP 119/55 12/02/16 08:00 Pulse Ox 93 L 12/02/16 09:16 Intake & Output 12/01/16 12/02/16 12/02/16 18:59 06:59 18:59 Intake Total 0 0 100 Output Total 210 100 120 Balance -210 -100 -20 Weight 114.5 kg 115.1 kg Intake: IV 0 Lactated Ringers 1,000 ml 0 @ 20 mls/hr IV .Q24H KAREN Rx#:[id number] Intake, IV Titration 0 Amount Insulin Regular 100 unit 0 In Sodium Chloride 0.9% 100 ml @ Titrate IV .Q0M KAREN Rx#:[id number] Oral 100 Output: Drainage 210 100 120 Right Knee 210 100 120 Urine 0 Other: Voiding Method Bedside Commode # Voids 0 1 # Bowel Movements 0 ABP, PAP, CO, CI - Last Documented Arterial Blood Pressure 105/96 Pulmonary Artery Pressure 246/246 Cardiac Output 6.1 Cardiac Index 2.8 - Exam Head exam was generally normal. There was no scleral icterus or corneal arcus. Mucous membranes were moist. Neck is short and supple and there is significant crowding of the posterior oropharynx. Lungs sounds are diminished bilaterally especially in the lung bases and there is some progression of the expiratory phase of breathing and scattered expiratory wheezes bilaterally. Heart sounds are regular, positive S1-S2 and his sternum stable clean and intact. No rubs or any significant murmurs appreciated. All of the chest tubes are in place. Abdomen is obese soft and the organs cannot be palpated accurately because of her morbid obesity. Extremities are within normal limits. No cyanosis or clubbing. Surgical wound sites are all dry clean and intact. Neurologically, the patient is awake and alert. - Labs CBC & Chem 7: 12/02/16 05:45 12/02/16 05:45 Labs: Abnormal Lab Results - Last 24 Hours (Table) 12/01/16 12/01/16 12/01/16 Range/Units 15:18 16:09 16:52 WBC (3.8-10.6) k/uL RBC (3.80-5.40) m/uL Hgb (11.4-16.0) gm/dL Hct (34.0-46.0) % BUN (7-17) mg/dL POC Glucose (mg/dL) 256 H 224 H 178 H (75-99) mg/dL Calcium (8.4-10.2) mg/dL Total Protein (6.3-8.2) g/dL Albumin (3.5-5.0) g/dL 12/01/16 12/02/16 12/02/16 Range/Units 20:47 03:09 05:45 WBC (3.8-10.6) k/uL RBC (3.80-5.40) m/uL Hgb (11.4-16.0) gm/dL Hct (34.0-46.0) % BUN 31 H (7-17) mg/dL POC Glucose (mg/dL) 106 H 72 L (75-99) mg/dL Calcium 8.2 L (8.4-10.2) mg/dL Total Protein 4.7 L (6.3-8.2) g/dL Albumin 2.4 L (3.5-5.0) g/dL 12/02/16 12/02/16 Range/Units 05:45 11:32 WBC 17.5 H (3.8-10.6) k/uL RBC 2.45 L (3.80-5.40) m/uL Hgb 7.7 L (11.4-16.0) gm/dL Hct 24.5 L (34.0-46.0) % BUN (7-17) mg/dL POC Glucose (mg/dL) 126 H (75-99) mg/dL Calcium (8.4-10.2) mg/dL Total Protein (6.3-8.2) g/dL Albumin (3.5-5.0) g/dL Assessment and Plan Plan: Assessment 1 multivessel coronary artery disease not abnormal to percutaneous revascularization/angioplasty/stenting. Patient is status post non-ST segment elevation myocardial infarction. The patient is status post three-vessel bypass surgery with WELCH to LAD and the patient is postop day #4. 2 COPD moderate to severe with a baseline FEV1 of 53-54% of predicted. 3 morbid obesity 4 hypertension 6 hyperlipidemia 7 smoker 8 post operative anemia, hemoglobin is stable at 7.7. 9 postoperative chest wall pain well controlled Plan condition is stable. We'll continue to follow. Discharge planning is in progress
[2016-12-02 16:50] LABS: Glucose,Whole Blood 223 mg/dL (75-99)
--- NOTE | 2016-12-02 17:09 | PN ---
Mrs. Shah remains in sinus rhythm. She is status post bypass surgery, doing well. Her incentive spirometry efforts have been good and she is making modest progress. Vital signs are stable. Heart sounds heard distantly. S1 and S2 heard normally, but distantly. Lungs reveal improve air entry. Abdomen and lower extremity exam unchanged. Plan is to continue current medications, incentive spirometer, pulmonary toilet.
[2016-12-02 21:51] LABS: Glucose,Whole Blood 139 mg/dL (75-99)
[2016-12-02] MEDS: INSULIN GLARGINE 100 UNIT/ML 10 ML VIAL SQ SCH (22:20)
[2016-12-02] MEDS: SENNOSIDES-DOCUSATE SODIUM 1 EACH TAB PO SCH (22:22)
[2016-12-03 01:52] LABS: Glucose,Whole Blood 133 mg/dL (75-99)
[2016-12-03] MEDS: INSULIN LISPRO (humaLOG) 300 UNIT/3 ML VIAL SQ SCH ×8 (01:56→21:23)
[2016-12-03 05:37] LABS: Glucose,Whole Blood 106 mg/dL (75-99)
[2016-12-03 06:53] LABS: CH 30.4; CHCM 29.9; HDW 2.55; Hypochromasia Moderate; MCH 30.2 pg (25.0-35.0); MCHC 29.7 g/dL (31.0-37.0); Macrocytosis Slight; Mean Platelet Volume 7.2; RBC 2.65 m/uL (3.80-5.40); RDW 14.1 % (11.5-15.5); WBC 15.3 k/uL (3.8-10.6)
[2016-12-03] MEDS: KETOROLAC 30 MG/ML 1 ML VIAL IVP SCH ×3 (07:16→18:25)
[2016-12-03] MEDS: GABAPENTIN 300 MG CAP PO SCH ×3 (07:17→21:22)
[2016-12-03 07:18] LABS: ALT 45 U/L (9-52); AST 22 U/L (14-36); Alkaline Phosphatase 59 U/L (38-126); Anion Gap 10 mmol/L; Blood Urea Nitrogen 30 mg/dL (7-17); Calcium 8.5 mg/dL (8.4-10.2); Carbon Dioxide 22 mmol/L (22-30); Chloride 105 mmol/L (98-107); Glucose 129 mg/dL (74-99); Non-African American GFR(MDRD) >60 (>60 ml/min/1.73 sqM); Potassium 4.4 mmol/L (3.5-5.1); Sodium 137 mmol/L (137-145); Total Bilirubin 0.8 mg/dL (0.2-1.3); Total Protein 5.3 g/dL (6.3-8.2)
[2016-12-03] MEDS: METOPROLOL TARTRATE 25 MG TAB PO SCH ×3 (07:18→21:26)
[2016-12-03] MEDS: metFORMIN 850 MG TAB PO SCH ×3 (07:32→21:23)
[2016-12-03] MEDS: LISINOPRIL 5 MG TAB PO SCH (07:32)
[2016-12-03] MEDS: ATORVASTATIN 40 MG TAB PO SCH (07:33)
[2016-12-03] MEDS: PANTOPRAZOLE 40 MG TABLET PO SCH (07:33)
[2016-12-03] MEDS: HEPARIN SODIUM,PORCINE 5,000 UNIT/ML 1 ML VIAL SQ SCH ×2 (07:33→16:32)
[2016-12-03] MEDS: ASPIRIN 325 MG TAB PO SCH (07:33)
[2016-12-03] MEDS: CLOPIDOGREL 75 MG TAB PO SCH (07:34)
[2016-12-03] MEDS: IPRATROPIUM-ALBUTEROL 3 ML NEB INHALATION SCH ×4 (08:54→21:35)
--- NOTE | 2016-12-03 10:19 | P.PN ---
<Aman Weaver L - Last Filed: 12/03/16 10:18> Progress Note - Text CV Surgery Nursing Principal diagnosis: Coronary artery disease, non-STEMI. POD #5 Urgent off pump myocardial revascularization with extracorporeal circulation on standby, WELCH to the mid LAD, a reverse greater saphenous vein graft to the PDA, a reverse greater saphenous vein graft to the OM. Endoscopic vein harvesting of the right greater saphenous vein. Intraoperative transesophageal echocardiogram and epi-aortic scanning. Patient awake and alert, no distress noted, no specific complaints, she is sitting up to the bedside chair. Vital Signs: Afebrile Vital Signs - 24 hr 12/02/16 12/02/16 12/02/16 11:10 11:37 12:00 Temperature 97.9 F Pulse Rate 83 84 Pulse Rate [ 72 Pulse Oximetery ] Respiratory 18 Rate Blood Pressure 113/56 [Right Arm Sitting] Blood Pressure [Right Arm] O2 Sat by Pulse 94 L Oximetry 12/02/16 12/02/16 12/02/16 16:00 17:01 17:07 Temperature 97.1 F L Pulse Rate 70 74 Pulse Rate [ 79 Pulse Oximetery ] Respiratory 16 Rate Blood Pressure 137/61 [Right Arm Sitting] Blood Pressure [Right Arm] O2 Sat by Pulse 98 Oximetry 12/02/16 12/03/16 12/03/16 20:00 00:00 04:00 Temperature 97.1 F L Pulse Rate Pulse Rate [ 72 78 72 Pulse Oximetery ] Respiratory 18 18 18 Rate Blood Pressure [Right Arm Sitting] Blood Pressure 142/68 131/60 136/58 [Right Arm] O2 Sat by Pulse 94 L 100 94 L Oximetry 12/03/16 12/03/16 12/03/16 08:00 08:55 09:07 Temperature Pulse Rate 74 72 Pulse Rate [ 76 Pulse Oximetery ] Respiratory 18 Rate Blood Pressure [Right Arm Sitting] Blood Pressure 154/69 [Right Arm] O2 Sat by Pulse 95 94 L Oximetry Labs: Short CBC 12/03/16 Range/Units 06:27 WBC 15.3 H (3.8-10.6) k/uL Hgb 8.0 L (11.4-16.0) gm/dL Hct 27.0 L (34.0-46.0) % Plt Count 306 (150-450) k/uL BMP 12/03/16 06:27 Sodium 137 Potassium 4.4 Chloride 105 Carbon Dioxide 22 BUN 30 H Creatinine 0.85 Glucose 129 H Calcium 8.5 Liver Function 12/03/16 Range/Units 06:27 Total Bilirubin 0.8 (0.2-1.3) mg/dL AST 22 (14-36) U/L ALT 45 (9-52) U/L Alkaline Phosphatase 59 (38-126) U/L Albumin 2.7 L (3.5-5.0) g/dL Microbiology 11/26/16 14:00 Urine,Clean Catch Urine Culture - Final 11/26/16 01:40 Nasal Swab Nasal Screen MRSA/MSSA ([facility]) - Final Lungs: Essentially clear throughout, diminished bilateral bases. Respirations are unlabored. O2 sat: 94% on room air. I/S: 500-750 mL, reviewed with the patient importance of using her incentive spirometry every hour while awake. The patient did give a good return demonstration on the use of her incentive spirometry. Heart: S1S2, regular rhythm and rate, negative for S3, gallop or murmur. Remote telemetry showing normal sinus rhythm with first-degree heart block heart rate 81. Sternum stable, chest incision clean with silverlon dressing clean and dry. Heart hugger in place, patient demonstrating proper use of her heart hugger. Right leg incisions clean dry and well approximated. No drainage noted. WALE drain in place to her right lower leg. 40 mL of thin serosanguineous drainage in the last 8 hours. Knee-high BUTCH hose and sequential compression devices in place to bilateral lower extremities. Abdomen: Soft, Positive bowel sounds present in all 4 quadrants. No bowel movement since surgery. CBGs: 106-181 mg/dL. U/O: Adequate. 24 hr Total: Intake & Output 12/01/16 12/02/16 12/03/16 12/04/16 06:59 06:59 06:59 06:59 Intake Total 465.525 0 200 240 Output Total 1810 310 690 Balance -1344.475 -310 -490 240 Weight 114.5 kg 115.1 kg 115.1 kg Active Medications Hydrocodone Bitart/Acetaminophen ([place] 5-325) 2 each PO Q4HR PRN PRN Reason: Severe Pain Last Admin: 12/01/16 15:33 Dose: 2 each Hydrocodone Bitart/Acetaminophen ([place] 5-325) 1 each PO Q4HR PRN PRN Reason: Moderate Pain Last Admin: 12/01/16 07:13 Dose: 1 each Albuterol/Ipratropium (Duoneb 0.5 Mg-3 Mg/3 Ml Soln) 3 ml INHALATION RT-Q2H PRN PRN Reason: Shortness Of Breath Or Wheezing Albuterol/Ipratropium (Duoneb 0.5 Mg-3 Mg/3 Ml Soln) 3 ml INHALATION RT-QID [facility] Last Admin: 12/03/16 08:54 Dose: 3 ml Aspirin (Aspirin) 325 mg PO DAILY [facility] Last Admin: 12/03/16 07:33 Dose: 325 mg Atorvastatin Calcium (Lipitor) 40 mg PO DAILY [facility] Last Admin: 12/03/16 07:33 Dose: 40 mg Bisacodyl (Dulcolax) 10 mg RECTAL DAILY PRN PRN Reason: Constipation Clopidogrel Bisulfate (Plavix) 75 mg PO DAILY [facility] Last Admin: 12/03/16 07:34 Dose: 75 mg Gabapentin (Neurontin) 300 mg PO TID [facility] Last Admin: 12/03/16 07:17 Dose: 300 mg Heparin Sodium (Porcine) (Heparin) 5,000 unit SQ Q8HR [facility] Last Admin: 12/03/16 07:33 Dose: 5,000 unit Insulin Glargine (Lantus) 60 unit SQ HS [facility] Last Admin: 12/02/16 22:20 Dose: 60 unit Insulin Human Lispro (Humalog) 40 unit SQ AC-SUPPER [facility] Last Admin: 12/02/16 17:00 Dose: 40 unit Insulin Human Lispro (Humalog) 0 unit SQ [id number] [facility] PRN Reason: Protocol Last Admin: 12/03/16 07:15 Dose: Not Given Insulin Human Lispro (Humalog) 20 unit SQ AC-BRKFST [facility] Last Admin: 12/03/16 07:17 Dose: 20 unit Insulin Human Lispro (Humalog) 30 unit SQ AC-LUNCH [facility] Last Admin: 12/02/16 11:34 Dose: Not Given Ketorolac Tromethamine (Toradol) 15 mg IVP Q6HR [facility] Stop: 12/04/16 07:52 Last Admin: 12/03/16 07:16 Dose: 15 mg Lisinopril (Zestril) 5 mg PO DAILY [facility] Last Admin: 12/03/16 07:32 Dose: 5 mg Magnesium Hydroxide (Milk Of Magnesia) 2,400 mg PO BID PRN PRN Reason: Constipation Last Admin: 12/01/16 13:04 Dose: 2,400 mg Metformin HCl (Glucophage) 1,700 mg PO BID-W/MEALS [facility] Last Admin: 12/03/16 07:32 Dose: Not Given Metformin HCl (Glucophage) 850 mg PO [facility] Last Admin: 12/02/16 22:21 Dose: 850 mg Metoprolol Tartrate (Lopressor) 25 mg PO BID [facility] Last Admin: 12/03/16 07:18 Dose: 25 mg Miscellaneous Information (Magnesium Per Protocol) 1 each MISCELLANE DAILY PRN ; Protocol PRN Reason: Per Protocol Miscellaneous Information (Phosphorus Per Protocol) 1 each MISCELLANE DAILY PRN ; Protocol PRN Reason: Per Protocol Miscellaneous Information (Potassium Per Protocol) 1 each MISCELLANE DAILY PRN ; Protocol PRN Reason: Per Protocol Multivitamins (Theragran) 1 each PO DAILY@1200 [facility] Last Admin: 12/02/16 12:21 Dose: 1 each Ondansetron HCl (Zofran) 4 mg IVP Q6HR PRN PRN Reason: Nausea And Vomiting Pantoprazole Sodium (Protonix) 40 mg PO AC-BRKFST [facility] Last Admin: 12/03/16 07:33 Dose: 40 mg Senna/Docusate Sodium (Senokot-S) 2 each PO HS [facility] Last Admin: 12/02/16 22:22 Dose: 2 each Sodium Chloride (Saline Flush) 10 ml IV Q12HR [facility] Last Admin: 12/03/16 07:18 Dose: 10 ml Plan: 1. Continue aspirin, Lipitor, heparin, increase metoprolol to 25 mg by mouth 3 times a day, Yefri inhibitor. 2. Encourage increased activity. Out of bed to chair all day with ambulation in the hallway. Physical therapy to follow, we will consult occupational therapy as patient is requesting discharge to rehab. 3. Insulin and diabetic management per primary care service, conservation educator consulted and following. 4. Encourage incentive spirometry use every hour while awake. 5. GI/DVT prophylaxis. 6. Monitor daily labs. Repeat chest x-ray in a.m. 7. Discharge planning in place. <Dirk Neal - Last Filed: 12/03/16 12:16> Progress Note - Text The patient was seen and examined. Agree with the above assessment and plan. She is still quite lethargic and needs assistance with ambulation. She has not been walking very well and we will have physical therapy continue to follow her. She may need subacute rehab upon discharge. Otherwise she appears to be improving. We will increase her Lopressor today. We will also continue with Lasix and try to keep her I's and O's negative. No imaging studies were performed today. Hopefully she will be discharged within the next 24 hours.
--- NOTE | 2016-12-03 10:54 | PN ---
DATE OF SERVICE: 12/02/2016 This 66-year-old woman who was admitted after CABG is improving significantly. No chest pain or palpitation. No fever. The blood sugars have been controlled. On exam, alert, oriented x3. Pulse 72, blood pressure 140/60, respirations 18, temperature 97.1, pulse ox 94% on 2 L. HEENT: Conjunctivae normal. NECK: No JVD. CARDIOVASCULAR: S1 and S2 muffled. RESPIRATORY: Breath sounds diminished in the bases. Scattered rhonchi. ABDOMEN: Soft, nontender. EXTREMITIES: No edema. NERVOUS SYSTEM: No focal deficits. LABS: WBC 17.3, hemoglobin 7.7, albumin is 2.4. ASSESSMENT: 1. Acute non-ST segment elevation myocardial infarction present on admission status post cardiac catheterization, status post coronary artery bypass grafting. 2. Shortness of breath positive but multifactorial, chronic obstructive pulmonary disease as well as coronary artery disease. 3. Leukocytosis reactive. 4. Anemia, normocytic anemia of chronic disease. 5. Diabetes mellitus type 2, hemoglobin A1c 9.9, status post insulin drip. 6. Morbid obesity, body mass index 42.5. 7. History of chronic obstructive pulmonary disease and intermittent asthma. 8. History of coronary artery disease and stent and myocardial infarction. 9. History of essential hypertension. 10. History of hyperlipidemia. 11. Remote history of nicotine dependence. 12. Atelectasis. 13. FULL CODE. RECOMMENDATIONS: In this 66-year-old woman who presented with multiple complex medical issues, we will monitor the patient closely. Continue the current medications and symptomatic treatment. Otherwise at this time recommend continue to closely follow with cardiology. Continue the rest of the medications. Further recommendations to follow.
[2016-12-03] MEDS: MULTIVITAMINS, THERA 1 EACH TAB PO SCH (11:12)
[2016-12-03 11:57] LABS: Glucose,Whole Blood 216 mg/dL (75-99)
--- NOTE | 2016-12-03 15:05 | P.PN ---
Subjective This is a very pleasant 66-year-old female patient who follows with Dr. Gonzales as her primary care physician. she has a history of hypertension, hyperlipidemia,diabetes mellitus, coronary artery disease with previous stent placements, morbid obesity. She also has a history of chronic obstructive pulmonary disease from previous smoking history and follows with Dr. Monique in our office for the same. She is maintained on Symbicort, Spiriva and albuterol. She presented here yesterday with complaints of increasing shortness of breath on minimal exertion. She also had some back discomfort radiating down her arms. She is found to be a non-ST segment elevation myocardial infarction and the plan is for cardiac catheterization today.she is seen in consultation on the selective care unit. She is currently awake and alert in no acute distress. Her chest x-ray shows evidence of chronic obstructive disease, cardiomegaly and bilateral atelectasis. No significant change from previous. She is maintaining good O2 saturations in the upper 90s on room air. She's been afebrile. She denies any current chest discomfort. No back pain. No palpitations, lightheadedness or dizziness. On 11/27/2016 the patient is being seen in follow-up. The patient has undergone the cardiac catheterization and the patient has progression of disease in the proximal in the mid LAD and significant disease in the first obtuse marginal branch a chronically occluded right coronary artery with collaterals from the left system. Based on that, the patient will be taken to the operating room for a coronary artery bypass surgery tomorrow. As mentioned earlier, the patient has COPD and her baseline FEV1 is in order of 53-54% of predicted consistent with moderately severe disease. Nevertheless, her disease not in acute exacerbation. Her white cell count slightly elevated probably a steroid effect. No signs of septicemia. She is able to climb a flight of stairs without any major difficulties. On 11/29/2016 the patient is being seen postop day #1. She underwent three- vessel bypass surgery with WELCH to LAD and saphenous vein graft to OM and PDA. Patient was weaned off the mechanical ventilator and she was extubated yesterday without any major difficulties. This morning she is on oxygen at 2 L/ m nasal cannula. As mentioned earlier she has moderate to severe COPD and her FEV1 is no order a 53% of predicted. She is a bit bronchospastic and wheezy and she is using DuoNeb nebulized treatments around the clock. She has a distended and left pleural chest tube. Output from the chest tubes are essentially has been 11 50 mL since surgery. Hemoglobin is stable at 8.8. The patient is hemodynamically stable. The [place]-Gregoria catheter was removed earlier this morning. Earlier than that the patient had a cardiac output of 6.1 with an index of 2.8.. Pressures were 25/18. The patient has adequate urine output. Pain is under good control. She is on an insulin drip at 1.5 units an hour. The patient was on Cleviprex drip yesterday which was weaned off and discontinued and she is currently on nitroglycerin drip which will be essentially weaned off and discontinued. She is awake. She is sitting up on a chair. No other significant events overnight. The chest x-ray from this morning shows adequate expansion of both lungs. There is some atelectatic changes and small effusion the left lung base. Chest tubes in good location. Sternum stable clean and intact. The sternal clips were visualized. On 12/01/2016 the patient is postop day #3. The patient is doing well. All of the chest tubes have been removed. She is ambulating in the hallway. Pulmonary status is stable. The patient is having some limited amount of wheezing and she is using incentive spirometer and she is using bronchodilators [id number]. Surgical wound site is dry clean and intact. No chest tightness. No significant shortness of breath. No major swelling in lower extremities. All of the surgical wound sites of dry clean and intact. On 12/02/2016 the patient is doing well she is postop day #4. She is up for a bath. Ambulating. No respiratory difficulties. Sternum is stable clean and intact. No other significant events over the past 24 hours. On 12/03/2016 the patient is postop day #5. The patient is resting comfortably in bed. No significant events over the past 24 hours. Discharge planning is in progress. The patient's blood sugar is under good control. She is ambulating. Surgical wound sites are clean. The patient has still a WALE drain in the right lower extremity. She is using incentive spirometer. Objective - Vital Signs Vital signs: Vital Signs Temp 97.8 F 12/03/16 12:00 Pulse 80 12/03/16 12:35 Resp 18 12/03/16 12:00 BP 122/58 12/03/16 12:00 Pulse Ox 94 L 12/03/16 12:00 Intake & Output 12/02/16 12/03/16 12/03/16 18:59 06:59 18:59 Intake Total 100 100 340 Output Total 220 470 Balance -120 -370 340 Weight 115.1 kg 115.1 kg Intake: Oral 100 100 340 Output: Drainage 220 70 Right Knee 220 70 Urine 0 400 Other: Voiding Method Bedside Commode Bedside Commode Bedside Commode # Voids 1 1 1 # Bowel Movements 0 0 ABP, PAP, CO, CI - Last Documented Arterial Blood Pressure 105/96 Pulmonary Artery Pressure 246/246 Cardiac Output 6.1 Cardiac Index 2.8 - Exam Head exam was generally normal. There was no scleral icterus or corneal arcus. Mucous membranes were moist. Neck is short and supple and there is significant crowding of the posterior oropharynx. Lungs sounds are diminished bilaterally especially in the lung bases and there is some progression of the expiratory phase of breathing and scattered expiratory wheezes bilaterally. Heart sounds are regular, positive S1-S2 and his sternum stable clean and intact. No rubs or any significant murmurs appreciated. All of the chest tubes are in place. Abdomen is obese soft and the organs cannot be palpated accurately because of her morbid obesity. Extremities are within normal limits. No cyanosis or clubbing. Surgical wound sites are all dry clean and intact. Neurologically, the patient is awake and alert. - Labs CBC & Chem 7: 12/03/16 06:27 12/03/16 06:27 Labs: Abnormal Lab Results - Last 24 Hours (Table) 12/02/16 12/02/16 12/03/16 Range/Units 16:47 21:45 01:50 WBC (3.8-10.6) k/uL RBC (3.80-5.40) m/uL Hgb (11.4-16.0) gm/dL Hct (34.0-46.0) % MCV (80.0-100.0) fL MCHC (31.0-37.0) g/dL BUN (7-17) mg/dL Glucose (74-99) mg/dL POC Glucose (mg/dL) 223 H 139 H 133 H (75-99) mg/dL Total Protein (6.3-8.2) g/dL Albumin (3.5-5.0) g/dL 12/03/16 12/03/16 12/03/16 Range/Units 05:35 06:27 06:27 WBC 15.3 H (3.8-10.6) k/uL RBC 2.65 L (3.80-5.40) m/uL Hgb 8.0 L (11.4-16.0) gm/dL Hct 27.0 L (34.0-46.0) % MCV 102.0 H (80.0-100.0) fL MCHC 29.7 L (31.0-37.0) g/dL BUN 30 H (7-17) mg/dL Glucose 129 H (74-99) mg/dL POC Glucose (mg/dL) 106 H (75-99) mg/dL Total Protein 5.3 L (6.3-8.2) g/dL Albumin 2.7 L (3.5-5.0) g/dL 12/03/16 Range/Units 11:53 WBC (3.8-10.6) k/uL RBC (3.80-5.40) m/uL Hgb (11.4-16.0) gm/dL Hct (34.0-46.0) % MCV (80.0-100.0) fL MCHC (31.0-37.0) g/dL BUN (7-17) mg/dL Glucose (74-99) mg/dL POC Glucose (mg/dL) 216 H (75-99) mg/dL Total Protein (6.3-8.2) g/dL Albumin (3.5-5.0) g/dL Assessment and Plan Plan: Assessment 1 multivessel coronary artery disease not abnormal to percutaneous revascularization/angioplasty/stenting. Patient is status post non-ST segment elevation myocardial infarction. The patient is status post three-vessel bypass surgery with WELCH to LAD and the patient is postop day #5. 2 COPD moderate to severe with a baseline FEV1 of 53-54% of predicted. 3 morbid obesity 4 hypertension 6 hyperlipidemia 7 smoker 8 post operative anemia, hemoglobin is stable at 8.0 9 postoperative chest wall pain well controlled Plan Stable condition. Ambulate the patient the hallway. Continue using incentive spirometer. We'll follow.
[2016-12-03 16:36] LABS: Glucose,Whole Blood 84 mg/dL (75-99)
--- NOTE | 2016-12-03 16:46 | PN ---
Mrs. Shah is status post aortocoronary bypass surgery. She is recovering well, but has difficulty walking. Her strength and coordination inadequate and incentive spirometry is also suboptimal. We are going to work with improving incentive spirometry and she may need a rehab before she goes home. This is being addressed. Her vital signs are stable. She remains in sinus rhythm. JVD is not evident. S1, S2 heard normally. Heart sounds heard distantly. Lungs reveal improved air entry. Abdomen and lower extremity exam unchanged. Plan is to continue incentive spirometry and pulmonary toilet and consider rehab prior to discharging her home.
[2016-12-03] MEDS: SENNOSIDES-DOCUSATE SODIUM 1 EACH TAB PO SCH (20:48)
[2016-12-03 21:05] LABS: Glucose,Whole Blood 214 mg/dL (75-99)
[2016-12-03] MEDS: INSULIN GLARGINE 100 UNIT/ML 10 ML VIAL SQ SCH (21:21)
[2016-12-04] MEDS: KETOROLAC 30 MG/ML 1 ML VIAL IVP SCH ×2 (00:17→06:48)
[2016-12-04] MEDS: HEPARIN SODIUM,PORCINE 5,000 UNIT/ML 1 ML VIAL SQ SCH ×2 (00:18→08:52)
[2016-12-04 02:04] LABS: Glucose,Whole Blood 187 mg/dL (75-99)
[2016-12-04] MEDS: INSULIN LISPRO (humaLOG) 300 UNIT/3 ML VIAL SQ SCH ×5 (02:30→12:16)
[2016-12-04 06:00] LABS: Glucose,Whole Blood 134 mg/dL (75-99)
[2016-12-04] MEDS: metFORMIN 850 MG TAB PO SCH (06:50)
[2016-12-04] MEDS: PANTOPRAZOLE 40 MG TABLET PO SCH (06:50)
[2016-12-04 07:02] LABS: Basophils % (A) 0 %; CH 30.7; Eosinophils # (A) 0.7 k/uL (0-0.7); Eosinophils % (A) 5 %; HCT 23.7 % (34.0-46.0); HDW 2.72; HGB 7.3 gm/dL (11.4-16.0); Hypochromasia Slight; Luc # (Auto) 0.28; Luc % (Auto) 2; Lymphocytes # (A) 2.4 k/uL (1.0-4.8); Lymphocytes % (A) 17 %; MCH 30.5 pg (25.0-35.0); MCHC 30.6 g/dL (31.0-37.0); MCV 99.7 fL (80.0-100.0); Macrocytosis Slight; Mean Platelet Volume 7.1; Monocytes # (A) 0.9 k/uL (0-1.0); Monocytes % (A) 7 %; Neutrophils # (A) 9.4 k/uL (1.3-7.7); Neutrophils % (A) 69 %; RBC 2.38 m/uL (3.80-5.40); RDW 14.5 % (11.5-15.5); WBC 13.7 k/uL (3.8-10.6); WBC (Perox) 14.41
[2016-12-04 07:18] LABS: Anion Gap 9 mmol/L; Blood Urea Nitrogen 26 mg/dL (7-17); Calcium 8.2 mg/dL (8.4-10.2); Carbon Dioxide 24 mmol/L (22-30); Chloride 106 mmol/L (98-107); Glucose 130 mg/dL (74-99); Non-African American GFR(MDRD) >60 (>60 ml/min/1.73 sqM); Potassium 4.7 mmol/L (3.5-5.1); Sodium 139 mmol/L (137-145)
--- NOTE | 2016-12-04 07:33 | XR ---
EXAMINATION TYPE: XR chest 1V portable DATE OF EXAM: 12/04/2016 7:23 AM COMPARISON: 12/01/2016 HISTORY: Postop CABG FINDINGS: There are bilateral pleural effusions with cardiomegaly and bibasilar infiltrate. There is a diffuse interstitial pattern. Postsurgical changes noted. No sizable pneumothorax. IMPRESSION: 1. Bilateral areas of infiltrate greater on the left with small effusion. Correlate for CHF.
[2016-12-04] MEDS: IPRATROPIUM-ALBUTEROL 3 ML NEB INHALATION SCH ×2 (07:46→11:07)
[2016-12-04] MEDS ORDERED: FUROSEMIDE 10 MG/ML 2 ML VIAL IV ONE (08:37)
[2016-12-04] MEDS: ATORVASTATIN 40 MG TAB PO SCH (08:52)
[2016-12-04] MEDS: CLOPIDOGREL 75 MG TAB PO SCH (08:52)
[2016-12-04] MEDS: METOPROLOL TARTRATE 25 MG TAB PO SCH (08:53)
[2016-12-04] MEDS: GABAPENTIN 300 MG CAP PO SCH (08:53)
[2016-12-04] MEDS ORDERED: ASPIRIN 81 MG CHEW PO SCH (09:00)
[2016-12-04] MEDS: HYDROcodone/APAP 5-325MG 1 EACH TAB PO PRN (10:23)
--- NOTE | 2016-12-04 11:08 | PN ---
DATE OF SERVICE: 12/03/2016 This 66-year-old woman who was admitted with acute non-ST elevation myocardial infarction present on admission, had a cardiac catheterization and CABG. Blood sugar is being closely monitor. No chest pain or palpitations. The patient is contemplating rehab at this time. The patient has occasional cough also. On exam, alert and oriented x3. Pulse is 73, blood pressure 120/58, respirations 18, temperature 97.3, pulse ox 94% on room air. HEENT: Conjunctivae normal. NECK: No JVD. CARDIOVASCULAR: S1 and S2 muffled LUNGS: Breath sounds diminished at the bases. Scattered rhonchi and crackles. ABDOMEN: Soft, nontender. EXTREMITIES: Legs no edema. NERVOUS SYSTEM: No focal deficits. LABS: WBC 15.3, hemoglobin 8, glucose 129, albumin is 2.7. ASSESSMENT: 1. Acute non-ST segment elevation myocardial infarction present on admission, status post cardiac catheterization, status post catheterization status post coronary artery bypass grafting. 2. Shortness of breath present on admission, multifactorial, possible chronic obstructive pulmonary disease as well as coronary artery disease. 3. Leukocytosis, reactive. 4. Anemia, normocytic anemia of chronic disease. 5. Gait dysfunction. 6. Diabetes mellitus type 2, hemoglobin A1c 9.9, status post insulin drip. 7. Morbid obesity, body mass index of 42.5. 8. History of chronic obstructive pulmonary disease and asthma. 9. History of coronary artery disease and stent and myocardial infarction. 10. History of essential hypertension. 11. Hyperlipidemia. 12. Remote history of nicotine dependence. 13. Atelectasis. 14. FULL CODE. RECOMMENDATIONS AND DISCUSSION: In this 66-year-old who presented with multiple complex medical issues, we will monitor the patient closely, continue current medications. Monitor blood sugars. Otherwise PT and OT evaluation with possible ECF rehab. Closely follow with cardiothoracic surgery. Further recommendations to follow.
[2016-12-04 11:36] VITALS: BP 133/63; PULSE 70; RESP 20; TEMP 98.2
--- NOTE | 2016-12-04 11:36 | P.PN ---
Subjective Principal diagnosis: Coronary artery disease, non-STEMI. POD #6 Urgent off pump myocardial revascularization with extracorporeal circulation on standby, WELCH to the mid LAD, saphenous vein graft to the PDA, saphenous vein graft to the OM. Endoscopic vein harvesting of the right greater saphenous vein. Intraoperative transesophageal echocardiogram and epi- aortic scanning. Patient currently sitting up in chair in no apparent distress. Denies pain, shortness of breath. Objective - Vital Signs Vital signs: Vital Signs Temp 97.8 F 12/03/16 16:00 Pulse 70 12/04/16 03:42 Resp 16 12/04/16 03:42 BP 128/67 12/04/16 03:42 Pulse Ox 96 12/04/16 03:42 Intake & Output 12/03/16 12/04/16 12/04/16 18:59 06:59 18:59 Intake Total 340 0 Output Total 440 Balance -100 0 Weight 115.1 kg 114.8 kg Intake: Oral 340 0 Output: Drainage 40 Right Knee 40 Urine 400 Other: Voiding Method Bedside Commode Bedside Commode # Voids 1 # Bowel Movements 0 ABP, PAP, CO, CI - Last Documented Arterial Blood Pressure 105/96 Pulmonary Artery Pressure 246/246 Cardiac Output 6.1 Cardiac Index 2.8 - Constitutional General appearance: Present: cooperative, no acute distress, obese - Respiratory Details: Lungs sounds diminished with fine crackles in the bases. Respirations even, nonlabored. Remains on room air. Able to achieve 750 mL on incentive spirometry. Weak cough. - Cardiovascular Details: S1, S2 present. Regular rate and rhythm, normal sinus rhythm on telemetry. No events noted overnight. Sternum stable. Trace bilateral lower extremity edema present, right greater than left. Heart hugger in place with patient demonstrating appropriate use. Teds/SCDs present. - Gastrointestinal Gastrointestinal Comment(s): Abdomen soft, nontender, nondistended. Active bowel sounds 4 quadrants. Tolerating diet. Positive bowel movement yesterday per patient. - Genitourinary Genitourinary Comment(s): Continues to void clear, yellow urine. - Integumentary Integumentary Comment(s): Anterior chest incision well approximated, [place] dressing removed. Right lower extremity EVH site well approximated. - Musculoskeletal Musculoskeletal: Present: gait normal, strength equal bilaterally - Psychiatric Psychiatric: Present: A&O x's 3, appropriate affect, intact judgment & insight - Allied health notes Allied health notes reviewed: PT - Labs CBC & Chem 7: 12/04/16 06:29 12/04/16 06:27 Labs: Abnormal Lab Results - Last 24 Hours (Table) 12/03/16 12/03/16 12/04/16 Range/Units 11:53 21:03 02:02 WBC (3.8-10.6) k/uL RBC (3.80-5.40) m/uL Hgb (11.4-16.0) gm/dL Hct (34.0-46.0) % MCHC (31.0-37.0) g/dL Neutrophils # (1.3-7.7) k/uL BUN (7-17) mg/dL Glucose (74-99) mg/dL POC Glucose (mg/dL) 216 H 214 H 187 H (75-99) mg/dL Calcium (8.4-10.2) mg/dL 12/04/16 12/04/16 12/04/16 Range/Units 05:58 06:27 06:29 WBC 13.7 H (3.8-10.6) k/uL RBC 2.38 L (3.80-5.40) m/uL Hgb 7.3 L (11.4-16.0) gm/dL Hct 23.7 L (34.0-46.0) % MCHC 30.6 L (31.0-37.0) g/dL Neutrophils # 9.4 H (1.3-7.7) k/uL BUN 26 H (7-17) mg/dL Glucose 130 H (74-99) mg/dL POC Glucose (mg/dL) 134 H (75-99) mg/dL Calcium 8.2 L (8.4-10.2) mg/dL - Imaging and Cardiology Chest x-ray: image reviewed Assessment and Plan (1) Coronary arteriosclerosis in patient with history of previous myocardial infarction Status: Acute (2) Diabetes mellitus Status: Acute (3) Hypertension Status: Acute (4) Hyperlipidemia Status: Acute (5) COPD exacerbation Status: Acute (6) NSTEMI (non-ST elevated myocardial infarction) Status: Acute Plan: 1. Continue aspirin, Lipitor, heparin. Increase lisinopril to 10 mg daily. 2. We'll give Lasix 20 mg IV push 1 today.Will send home on 20 mg lasix daily. 3. Insulin and diabetic management per primary care service. 4. Encourage incentive spirometry use/aggressive pulmonary toileting. 5. Encourage increased activity. Ambulation in the hallway. Physical therapy following 6. GI/DVT prophylaxis. 7. Monitor daily labs. 8. Will discharge to home today with home care to follow. Time with Patient: Greater than 30
[2016-12-04 11:46] LABS: Glucose,Whole Blood 135 mg/dL (75-99)
[2016-12-04] MEDS ORDERED: LISINOPRIL 10 MG TAB PO SCH (12:00)
[2016-12-04] MEDS: MULTIVITAMINS, THERA 1 EACH TAB PO SCH (12:16)
--- NOTE | 2016-12-04 12:55 | P.PN ---
Subjective Principal diagnosis: Status post CABG, WELCH to LAD, SVG to PDA, SVG to obtuse marginal This is a very pleasant 66-year-old female patient who follows with Dr. Gonzales as her primary care physician. she has a history of hypertension, hyperlipidemia,diabetes mellitus, coronary artery disease with previous stent placements, morbid obesity. She also has a history of chronic obstructive pulmonary disease from previous smoking history and follows with Dr. Monique in our office for the same. She is maintained on Symbicort, Spiriva and albuterol. She presented here yesterday with complaints of increasing shortness of breath on minimal exertion. She also had some back discomfort radiating down her arms. She is found to be a non-ST segment elevation myocardial infarction and the plan is for cardiac catheterization today.she is seen in consultation on the selective care unit. She is currently awake and alert in no acute distress. Her chest x-ray shows evidence of chronic obstructive disease, cardiomegaly and bilateral atelectasis. No significant change from previous. She is maintaining good O2 saturations in the upper 90s on room air. She's been afebrile. She denies any current chest discomfort. No back pain. No palpitations, lightheadedness or dizziness. On 11/27/2016 the patient is being seen in follow-up. The patient has undergone the cardiac catheterization and the patient has progression of disease in the proximal in the mid LAD and significant disease in the first obtuse marginal branch a chronically occluded right coronary artery with collaterals from the left system. Based on that, the patient will be taken to the operating room for a coronary artery bypass surgery tomorrow. As mentioned earlier, the patient has COPD and her baseline FEV1 is in order of 53-54% of predicted consistent with moderately severe disease. Nevertheless, her disease not in acute exacerbation. Her white cell count slightly elevated probably a steroid effect. No signs of septicemia. She is able to climb a flight of stairs without any major difficulties. On 11/29/2016 the patient is being seen postop day #1. She underwent three- vessel bypass surgery with WELCH to LAD and saphenous vein graft to OM and PDA. Patient was weaned off the mechanical ventilator and she was extubated yesterday without any major difficulties. This morning she is on oxygen at 2 L/ m nasal cannula. As mentioned earlier she has moderate to severe COPD and her FEV1 is no order a 53% of predicted. She is a bit bronchospastic and wheezy and she is using DuoNeb nebulized treatments around the clock. She has a distended and left pleural chest tube. Output from the chest tubes are essentially has been 11 50 mL since surgery. Hemoglobin is stable at 8.8. The patient is hemodynamically stable. The [place]-Gregoria catheter was removed earlier this morning. Earlier than that the patient had a cardiac output of 6.1 with an index of 2.8.. Pressures were 25/18. The patient has adequate urine output. Pain is under good control. She is on an insulin drip at 1.5 units an hour. The patient was on Cleviprex drip yesterday which was weaned off and discontinued and she is currently on nitroglycerin drip which will be essentially weaned off and discontinued. She is awake. She is sitting up on a chair. No other significant events overnight. The chest x-ray from this morning shows adequate expansion of both lungs. There is some atelectatic changes and small effusion the left lung base. Chest tubes in good location. Sternum stable clean and intact. The sternal clips were visualized. On 12/01/2016 the patient is postop day #3. The patient is doing well. All of the chest tubes have been removed. She is ambulating in the hallway. Pulmonary status is stable. The patient is having some limited amount of wheezing and she is using incentive spirometer and she is using bronchodilators [id number]. Surgical wound site is dry clean and intact. No chest tightness. No significant shortness of breath. No major swelling in lower extremities. All of the surgical wound sites of dry clean and intact. On 12/02/2016 the patient is doing well she is postop day #4. She is up for a bath. Ambulating. No respiratory difficulties. Sternum is stable clean and intact. No other significant events over the past 24 hours. On 12/03/2016 the patient is postop day #5. The patient is resting comfortably in bed. No significant events over the past 24 hours. Discharge planning is in progress. The patient's blood sugar is under good control. She is ambulating. Surgical wound sites are clean. The patient has still a WALE drain in the right lower extremity. She is using incentive spirometer. On 12/04/2016, she is postoperative day #6. Patient is already ambulating in the hallway, but noted to have shortness of breath with exertion. Chest x-ray continues to show mild congestive heart failure changes, and a small left pleural effusion. Received diuretics and again earlier this morning. Clearly the patient is not quite ready for discharge at this point. Objective - Vital Signs Vital signs: Vital Signs Temp 98.2 F 12/04/16 11:30 Pulse 70 12/04/16 11:30 Resp 20 12/04/16 11:30 BP 133/63 12/04/16 11:30 Pulse Ox 95 12/04/16 11:30 Intake & Output 12/03/16 12/04/16 12/04/16 18:59 06:59 18:59 Intake Total 340 0 180 Output Total 440 Balance -100 0 180 Weight 115.1 kg 114.8 kg Intake: Oral 340 0 180 Output: Drainage 40 Right Knee 40 Urine 400 Other: Voiding Method Bedside Commode Bedside Commode # Voids 1 1 # Bowel Movements 0 ABP, PAP, CO, CI - Last Documented Arterial Blood Pressure 105/96 Pulmonary Artery Pressure 246/246 Cardiac Output 6.1 Cardiac Index 2.8 - Exam Head exam was generally normal. There was no scleral icterus or corneal arcus. Mucous membranes were moist. Neck is short and supple and there is significant crowding of the posterior oropharynx. Lungs sounds are diminished bilaterally especially in the lung bases and there is some progression of the expiratory phase of breathing and scattered expiratory wheezes bilaterally. Heart sounds are regular, positive S1-S2 and his sternum stable clean and intact. No rubs or any significant murmurs appreciated. Abdomen is obese soft and the organs cannot be palpated accurately because of her morbid obesity. Extremities are within normal limits. No cyanosis or clubbing. Surgical wound sites are all dry clean and intact. Neurologically, the patient is awake and alert. - Labs CBC & Chem 7: 12/04/16 06:29 12/04/16 06:27 Labs: Abnormal Lab Results - Last 24 Hours (Table) 12/03/16 12/04/16 12/04/16 Range/Units 21:03 02:02 05:58 WBC (3.8-10.6) k/uL RBC (3.80-5.40) m/uL Hgb (11.4-16.0) gm/dL Hct (34.0-46.0) % MCHC (31.0-37.0) g/dL Neutrophils # (1.3-7.7) k/uL BUN (7-17) mg/dL Glucose (74-99) mg/dL POC Glucose (mg/dL) 214 H 187 H 134 H (75-99) mg/dL Calcium (8.4-10.2) mg/dL 12/04/16 12/04/16 12/04/16 Range/Units 06:27 06:29 11:44 WBC 13.7 H (3.8-10.6) k/uL RBC 2.38 L (3.80-5.40) m/uL Hgb 7.3 L (11.4-16.0) gm/dL Hct 23.7 L (34.0-46.0) % MCHC 30.6 L (31.0-37.0) g/dL Neutrophils # 9.4 H (1.3-7.7) k/uL BUN 26 H (7-17) mg/dL Glucose 130 H (74-99) mg/dL POC Glucose (mg/dL) 135 H (75-99) mg/dL Calcium 8.2 L (8.4-10.2) mg/dL Assessment and Plan Plan: 1 multivessel coronary artery disease not abnormal to percutaneous revascularization/angioplasty/stenting. Patient is status post non-ST segment elevation myocardial infarction. The patient is status post three-vessel bypass surgery with WELCH to LAD and the patient is postop day # 6 2 COPD moderate to severe with a baseline FEV1 of 53-54% of predicted. 3 morbid obesity 4 hypertension 6 hyperlipidemia 7 smoker 8 post operative anemia, hemoglobin is stable at 8.0 9 postoperative chest wall pain well controlled Recommendation: Continue ambulation, continue diuretics, incentive spirometry, bronchodilators, possible discharge planning in the next 24 hours. Time with Patient: Less than 30
--- NOTE | 2016-12-04 13:48 | P.DS ---
Providers Date of admission: 11/24/16 16:53 Attending physician: Allan Desouza Consults: 11/25/16 14:53 Consult Physician Routine Consulting Provider: Allan Desouza Consult Reason/Comments: cabg Do you want consulting provider notified?: Already Contacted 11/25/16 17:51 Consult Anesthesia Routine Consulting Provider: Anesthesia,Services Consult Reason/Comments: Cardiac Surgery Pre-Op 11/28/16 15:14 Consult Physician Routine Consulting Provider: Rohan Hamlin Consult Reason/Comments: medical management Do you want consulting provider notified?: Already Contacted Primary care physician: [facility] Course: FINAL DIAGNOSIS: 1.[coronary artery disease, non-STEMI] 2.[hypertension] 3.[hyperlipidemia] 4.[history of myocardial infarction] 5.[COPD] 6.[Uncontrolled type 2 diabetes,hemoglobin A1c 9.9%] 7.[significant family history of coronary artery disease] PRINCIPAL PROCEDURE: [] 1.[off pump CABG 3 ] 2.[endovascular vein harvest] 3.[epi-aortic ultrasonography] 4.[Cardiac catheterization] HISTORY OF PRESENT ILLNESS: [this 66-year-old female with a known history of coronary artery disease and previous stenting to the LAD and right coronary artery presented to the emergency room with chest pain and shortness of breath. She had elevated troponins, was diagnosed with a non-STEMI,and was evaluated by Dr. Sarabia from [facility] with the recommendation for heart catheterization. She was taken to the cardiac catheterization lab was found to have occlusion of the right coronary artery with some collateral filling from the left system as well as tight in-stent restenosis in the proximal LAD and moderate to severe disease in the circumflex, particularly the first obtuse marginal branch. Dr. Desouza from cardiothoracic surgery was consulted for the possibility of surgical revascularization. An extensive discussion was had with the patient, all risks and benefits were explained, and consent was obtained to proceed with surgery.] HOSPITAL COURSE:[the patient was kept inpatient secondary to the severity of her disease. On11/28/2016, she was taken to the operating room where Dr. Desouza performed and urgent off-pump coronary artery bypass grafting 3 with the left internal mammary artery graft to the LAD and saphenous vein grafts to the posterior descending coronary artery and obtuse marginal coronary artery with endovascular vein harvest and epi-aortic ultrasonography. Upon completion of surgery, the patient was transferred to the cardiovascular intensive care unit where she was recovered, monitored hemodynamically, and where she progressed to cardiac rehabilitation phase 1. She was extubated, all lines, tubes and drips were discontinued when appropriate, and she was transferred to [address] [place] [address] for further monitoring and rehabilitation. Her oxygen was titrated down, she continued to work with physical therapy, and was ready to be discharged home on postoperative day #6 with [facility] to follow. She received written and verbal instruction regarding her medications, activity restrictions, signs and symptoms requiring physician notification, and follow-up appointments.] COMPLICATIONS: [The patient's pain is no postoperative complications.] CONSULTATIONS: 1.[Dr. Sarabia for cardiology] 2.[Dr. Monique for pulmonology] 3.[Dr. Hamlin for medical management] DISCHARGE INSTRUCTIONS: 1. No driving for 4 weeks, or until physician gives their ok. 2. The patient should sleep in their own bed, no medical bed needed. 3. Stairs are not an issue. If the bedroom is upstairs, it is advised that the patient go up at night and down in the morning for the first week. Go slowly, using handrail and take 1 step at a time. 4. BUTCH hose are to be worn for 30 days or until physician discontinues. 5. Heart hugger is to be worn 100% of the time until physician discontinues.( except when showering) 6. No lifting, pushing, or pulling more than 10 pounds for 12 weeks. The physician will advise of any restriction changes. 7. The patient is expected to continue the prescribed walking program. 8. Continue pain control per as needed orders. 9. Continue with incentive spirometry and splinting/heart hugger until otherwise directed by the physician. 10. Must shower daily using liquid antibacterial soap and a separate white washcloth for each individual incision. 11. Routine sternal incision care. No lotions, powders or ointments on incisions. HOME HEALTH SERVICES TO PROVIDE: RN SKILLED HOME CARE SERVICES FOR POST-OP SURGICAL PATIENTS WITH THE FOLLOWING: Coronary Artery Bypass Surgery (CABG), Mitral Valve Replacement/ Repair ( MVR), Aortic Valve Replacement/Repair (AVR) RN TO CONTINUE EDUCATION FROM ``ROAD TO A HEALTH HEART PATIENT EDUCATION MANUAL (GIVEN TO PATIENT IN THE HOSPITAL) MEDICATION RECONCILIATION WITH EDUCATION NEEDED ON FIRST HOME VISIT EMPHASIZE IMPORTANCE OF WEARING BREAST SUPPORT/HEART HUGGER ENCOURAGE USE OF INCENTIVE SPIROMETER 10 X EVERY HOUR WHILE AWAKE ENCOURAGE UTILIZATION OF LOWER EXTREMITY COMPRESSION STOCKINGS/BUTCH HOSE and ELEVATE LEGS ABOVE LEVEL OF HEART WHILE AT REST. ENCOURAGE AMBULATION 3-5x/day INCREASING TOLERATES, WHILE AVOID EXTREMES IN TEMPERATURE FREQUENCY: RN TO OPEN THE PATIENT WITHIN 24 HOURS OF DISCHARGE FROM THE HOSPITAL WITH TELEHEALTH INSTALLED AT [facility] [place], RN TO VISIT 2-3 X A WEEK FOR 4 WEEKS ESTABLISHED BY PATIENT NEEDS. LABORATORY: CBC, CMP TO BE DRAWN ON THE THIRD DAY HOME, 12/07/2016 (RAN STAT ) FAX RESULTS TO [phone]. TELEHEALTH PARAMETERS: WEIGHT: NOTIFY MD OF WEIGHT GAIN OF 2 LBS IN 24 HOURS OR 5 LBS IN ONE WEEK HR: NOTIFY MD OF HR <55 BPM OR HR>100 BPM BP: NOTIFY MD IF BP <90/55 OR BP>140/100 O2 SAT: NOTIFY MD IF PO2<93% ON ROOM AIR SEND TELEHEALTH REPORT TO [facility] AND CARDIOVASCULAR SURGEON THE FIRST WEEK OF CARE AND THEN BI-WEEKLY. PLEASE ADDITIONALLY COMMUNICATE ANY ABNORMALS AND NEW FINDINGS TO THE SURGEONS OFFICE. Patient Condition at Discharge: Serious Plan - Discharge Summary New Discharge Prescriptions: Clopidogrel [Plavix] 75 mg PO DAILY #30 tab HYDROcodone/APAP 5-325MG [Erie 5-325] 1 - 2 tab PO Q6HR PRN #90 tab PRN Reason: Moderate Pain Metoprolol Tartrate [Lopressor] 25 mg PO TID #90 tab Discharge Medication List Aspirin 81 mg PO DAILY 12/17/14 [History] Fluticasone Propionate [Flonase Allergy Relief] 1 spray EA NOSTRIL DAILY PRN [History] Furosemide [Lasix] 20 mg PO DAILY PRN 12/17/14 [History] Insulin NPL/Insulin Lispro [humaLOG Mix 75-25 Kwikpen] 70 unit SQ AC-SUPPER [History] Lisinopril [Prinivil] 10 mg PO DAILY 12/17/14 [History] Potassium Chloride [Klor-Con 20] 20 meq PO DAILY PRN 12/17/14 [History] metFORMIN HCL [Glucophage] 850 mg PO AC-SUPPER 12/17/14 [History] Albuterol Inhaler [Ventolin Hfa Inhaler] 1 - 2 puff INHALATION RT-Q6H PRN [History] Budesonide-Formot 160-4.5 Mcg [Symbicort 160-4.5 Mcg Inhaler] 2 puff INHALATION RT-BID 04/18/15 [History] Insulin NPL/Insulin Lispro [humaLOG Mix 75-25 Kwikpen] 60 unit SQ DAILY [History] Tiotropium [place]lock [Spiriva] 18 mcg IH RT-DAILY 04/18/15 [History] metFORMIN HCL [Glucophage] 1,700 mg PO AC-BRKFST 04/18/15 [History] Docusate [Colace] 100 mg PO DAILY PRN #30 cap 04/21/15 [Rx] Atorvastatin [Lipitor] 80 mg PO HS 11/24/16 [History] Insulin Glargine,Hum.rec.anlog [Lantus Solostar] 60 unit SQ HS 11/24/16 [History ] Ipratropium-Albuterol Nebulize [Duoneb 0.5 mg-3 mg/3 ml Soln] 3 ml INHALATION RT -QID PRN 11/24/16 [History] Clopidogrel [Plavix] 75 mg PO DAILY #30 tab 12/04/16 [Rx] Gabapentin [Neurontin] 300 mg PO TID cap 12/04/16 [Rx] HYDROcodone/APAP 5-325MG [Erie 5-325] 1 - 2 tab PO Q6HR PRN #90 tab 12/04/16 [ Rx] Metoprolol Tartrate [Lopressor] 25 mg PO TID #90 tab 12/04/16 [Rx] Multivitamins, Thera [Multivitamin (formulary)] 1 each PO DAILY@1200 tab [Rx] Follow up Appointment(s)/Referral(s): Maddy Hernandez NPC [Nurse Practitioner] - 12/08/16 11:00 am Ishaan Sarabia MD [STAFF PHYSICIAN] - 12/11/16 2:30 pm Elvira Gonzales MD [Primary Care Provider] - 12/21/16 12:45 pm Allan Desouza MD [STAFF PHYSICIAN] - 01/01/17 2:00 pm Haven Monique MD [STAFF PHYSICIAN] - 12/07/16 1:00 pm Ambulatory/Diagnostic Orders: Complete Blood Count w/diff [LAB.AMB] Time Frame: 3 Days, Facility: [facility], Location: Laboratory [facility] Comprehensive Metabolic Panel [LAB.AMB] Time Frame: 3 Days, Facility: [facility], Location: Laboratory [facility] Activity/Diet/Wound Care/Special Instructions: DISCHARGE INSTRUCTIONS: 1. No driving for 4 weeks, or until physician gives their ok. 2. The patient should sleep in their own bed, no medical bed needed. 3. Stairs are not an issue. If the bedroom is upstairs, it is advised that the patient go up at night and down in the morning for the first week. Go slowly, using handrail and take 1 step at a time. 4. BUTCH hose are to be worn for 30 days or until physician discontinues. 5. Heart hugger is to be worn 100% of the time until physician discontinues.( except when showering) 6. No lifting, pushing, or pulling more than 10 pounds for 12 weeks. The physician will advise of any restriction changes. 7. The patient is expected to continue the prescribed walking program. 8. Continue pain control per as needed orders. 9. Continue with incentive spirometry and splinting/heart hugger until otherwise directed by the physician. 10. Must shower daily using liquid antibacterial soap and a separate white washcloth for each individual incision. 11. Routine sternal incision care. No lotions, powders or ointments on incisions. HOME HEALTH SERVICES TO PROVIDE: RN SKILLED HOME CARE SERVICES FOR POST-OP SURGICAL PATIENTS WITH THE FOLLOWING: Coronary Artery Bypass Surgery (CABG), Mitral Valve Replacement/ Repair ( MVR), Aortic Valve Replacement/Repair (AVR) RN TO CONTINUE EDUCATION FROM ``ROAD TO A HEALTH HEART PATIENT EDUCATION MANUAL (GIVEN TO PATIENT IN THE HOSPITAL) MEDICATION RECONCILIATION WITH EDUCATION NEEDED ON FIRST HOME VISIT EMPHASIZE IMPORTANCE OF WEARING BREAST SUPPORT/HEART HUGGER ENCOURAGE USE OF INCENTIVE SPIROMETER 10 X EVERY HOUR WHILE AWAKE ENCOURAGE UTILIZATION OF LOWER EXTREMITY COMPRESSION STOCKINGS/BUTCH HOSE and ELEVATE LEGS ABOVE LEVEL OF HEART WHILE AT REST. ENCOURAGE AMBULATION 3-5x/day INCREASING TOLERATES, WHILE AVOID EXTREMES IN TEMPERATURE FREQUENCY: RN TO OPEN THE PATIENT WITHIN 24 HOURS OF DISCHARGE FROM THE HOSPITAL WITH TELEHEALTH INSTALLED AT [facility], RN TO VISIT 2-3 X A WEEK FOR 4 WEEKS ESTABLISHED BY PATIENT NEEDS. LABORATORY: CBC, CMP TO BE DRAWN ON THE THIRD DAY HOME, 12/07/2016 (RAN STAT ) FAX RESULTS TO [phone]. TELEHEALTH PARAMETERS: WEIGHT: NOTIFY MD OF WEIGHT GAIN OF 2 LBS IN 24 HOURS OR 5 LBS IN ONE WEEK HR: NOTIFY MD OF HR <55 BPM OR HR>100 BPM BP: NOTIFY MD IF BP <90/55 OR BP>140/100 O2 SAT: NOTIFY MD IF PO2<93% ON ROOM AIR SEND TELEHEALTH REPORT TO [facility] AND CARDIOVASCULAR SURGEON THE FIRST WEEK OF CARE AND THEN BI-WEEKLY. PLEASE ADDITIONALLY COMMUNICATE ANY ABNORMALS AND NEW FINDINGS TO THE SURGEONS OFFICE. Home Care - [facility] - [phone] Discharge Disposition: HOME WITH HOME HEALTH SERVICES
--- NOTE | 2016-12-04 18:03 | P.PN ---
Subjective Date of service 12/04/2016. Progress note being dictated for Dr. Arredondo. Interval history: This is 66-year-old female admitted with acute non-STEMI, status post cardiac cath reporting multivessel vessel CAD. Ambulating with physical therapy in the hallway with exertional shortness of breath. Incentive spirometer up to 500. Chest x-ray reporting bilateral infiltrates, greater on the left with small effusion, possible CHF. Received a dose of Lasix IV push this morning. Telemetry sinus rhythm. Hemoglobin 7.3, asymptomatic. Objective - Vital Signs Vital signs: Vital Signs Temp 97.8 F 12/03/16 16:00 Pulse 75 12/04/16 09:50 Resp 16 12/04/16 03:42 BP 123/60 12/04/16 09:50 Pulse Ox 95 12/04/16 09:50 Intake & Output 12/03/16 12/04/16 12/04/16 18:59 06:59 18:59 Intake Total 340 0 180 Output Total 440 Balance -100 0 180 Weight 115.1 kg 114.8 kg Intake: Oral 340 0 180 Output: Drainage 40 Right Knee 40 Urine 400 Other: Voiding Method Bedside Commode Bedside Commode # Voids 1 # Bowel Movements 0 ABP, PAP, CO, CI - Last Documented Arterial Blood Pressure 105/96 Pulmonary Artery Pressure 246/246 Cardiac Output 6.1 Cardiac Index 2.8 - Exam PHYSICAL EXAM: VITAL SIGNS: As above GENERAL: [Sitting up in chair, no acute distress] HEENT: [Pupils equal conjunctiva normal, oral mucosa moist. No scleral icterus] NECK: [Supple, short neck] RESPIRATORY EFFORT:[Normal LUNGS: bilateral bases diminished, occasional scattered expiratory wheeze CARDIOVASCULAR[regular S1 and S2, no significant murmur rub or gallop, trace edema] GI: [Abdomen soft, obese, nontender, positive bowel sounds. No organomegaly.] PSYCH: [Alert and oriented -3, mood and affect normal NEURO: No focal deficits, moves all 4 extremities, strength and sensation grossly intact - Labs CBC & Chem 7: 12/04/16 06:29 12/04/16 06:27 Labs: Abnormal Lab Results - Last 24 Hours (Table) 12/03/16 12/03/16 12/04/16 Range/Units 11:53 21:03 02:02 WBC (3.8-10.6) k/uL RBC (3.80-5.40) m/uL Hgb (11.4-16.0) gm/dL Hct (34.0-46.0) % MCHC (31.0-37.0) g/dL Neutrophils # (1.3-7.7) k/uL BUN (7-17) mg/dL Glucose (74-99) mg/dL POC Glucose (mg/dL) 216 H 214 H 187 H (75-99) mg/dL Calcium (8.4-10.2) mg/dL 12/04/16 12/04/16 12/04/16 Range/Units 05:58 06:27 06:29 WBC 13.7 H (3.8-10.6) k/uL RBC 2.38 L (3.80-5.40) m/uL Hgb 7.3 L (11.4-16.0) gm/dL Hct 23.7 L (34.0-46.0) % MCHC 30.6 L (31.0-37.0) g/dL Neutrophils # 9.4 H (1.3-7.7) k/uL BUN 26 H (7-17) mg/dL Glucose 130 H (74-99) mg/dL POC Glucose (mg/dL) 134 H (75-99) mg/dL Calcium 8.2 L (8.4-10.2) mg/dL Assessment and Plan Plan: 1. Acute non-STEMI, status post cardiac catheterization with severe multivessel CAD,Status post CABG 2. [Shortness of breath possibly multifactorial, acute exacerbation COPD as well as CAD]. 3. [Leukocytosis, reactive]. 4. [Anemia, normocytic, of chronic disease]. 5. [Diabetes mellitus type 2, hemoglobin A1c 9.9], on insulin drip ,Outpatient diabetic education classes. 6. [Morbid Obesity, BMI 42.5]. 7. [History of COPD and paroxysmal intermittent asthma]. 8. History of CAD with stent, VT 9. Essential hypertension 11. Hyperlipidemia 12. Remote history of nicotine dependence 13. Postop anemia, stable 14. atelectasis Plan: Continue on current medication regime , statin, nebulized bronchodilators , aspirin, beta maru, Lasix, monitoring and symptomatic treatment. Continue with aggressive pulmonary toileting, increasing ambulation as tolerated. Currently being evaluated by physical therapy. Close monitoring of hemoglobin, with repeat CBC in a.m. close monitoring of Accu-Cheks, currently controlled. Further recommendations to follow. The impression and plan of care has been dictated as directed. : I performed a H&P examination of this patient and discussed the same with the dictator. I agree with the dictator's note. Any additional findings/opinions/ etc. will be noted.
--- NOTE | 2016-12-04 19:18 | PN ---
Mrs. Shah is in sinus rhythm, comfortable, somewhat short of breath. Chest x-ray shows left-sided pleural effusion, some mild congestion. She received some Lasix. Plan is to continue incentive spirometry, pulmonary toilet, increase activity, probably some diuresis. She is being considered to go to rehab as opposed to home, which probably is a good idea for her to increase her activity, mobility and strength. On physical exam there are no new significant findings. With the Lasix she seems to have improved. She is walking in the hallway. No specific recommendations other than continued incentive spirometry, pulmonary toilet and same medications.
--- NOTE | 2016-12-04 22:15 | PN ---
DATE OF SERVICE: 12/04/2016 This 66-year-old woman was admitted with acute non-ST elevation myocardial infarction. She underwent CABG. The patient is being closely monitored. I have seen and evaluated the patient with the nurse practitioner. Please refer to the nurse practitioner notes and physical examination documented as a scribe for further information. Accu-Cheks are noted. Recommend Accu-Cheks before meals and at bedtime. Continue with insulin at home as well as I also recommend incentive spirometry.
== END 2016-12-04 15:03 | disposition home health service (06) | DRG 234 ==
LOC: EC 14:15 → 6SEL 16:53 → 6ICU 11-28 09:25 → 6SEL 12-01 17:59
PROVIDERS: ADMIT Internal Medicine; ATTEND Thoracic Surgery (Cardiothoracic Vascular Surgery)
PROC: 4A023N7 Measurement of Cardiac Sampling and Pressure, Left Heart, Percutaneous Approach (ICD-10-PCS; principal; 2016-11-25 13:00)
PROC: B2151ZZ Fluoroscopy of Left Heart using Low Osmolar Contrast (ICD-10-PCS; principal; 2016-11-25 13:00)
PROC: B2111ZZ Fluoroscopy of Multiple Coronary Arteries using Low Osmolar Contrast (ICD-10-PCS; principal; 2016-11-25 13:00)
PROC: B246ZZ4 Ultrasonography of Right and Left Heart, Transesophageal (ICD-10-PCS; 2016-11-28)
PROC: 06BP4ZZ Excision of Right Saphenous Vein, Percutaneous Endoscopic Approach (ICD-10-PCS; 2016-11-28)
PROC: 021109W Bypass Coronary Artery, Two Arteries from Aorta with Autologous Venous Tissue, Open Approach (ICD-10-PCS; 2016-11-28)
PROC: 02100Z9 Bypass Coronary Artery, One Artery from Left Internal Mammary, Open Approach (ICD-10-PCS; 2016-11-28)
DX: I21.4 Non-ST elevation (NSTEMI) myocardial infarction (principal); Z68.41 Body mass index [BMI] 40.0-44.9, adult; I11.0 Hypertensive heart disease with heart failure; E11.65 Type 2 diabetes mellitus with hyperglycemia; I50.9 Heart failure, unspecified; J44.1 Chronic obstructive pulmonary disease with (acute) exacerbation; J98.11 Atelectasis; T82.855A Stenosis of coronary artery stent, initial encounter; D63.8 Anemia in other chronic diseases classified elsewhere; I25.110 Atherosclerotic heart disease of native coronary artery with unstable angina pectoris; E66.01 Morbid (severe) obesity due to excess calories; E78.5 Hyperlipidemia, unspecified; F17.200 Nicotine dependence, unspecified, uncomplicated; I25.2 Old myocardial infarction; I44.0 Atrioventricular block, first degree; J45.20 Mild intermittent asthma, uncomplicated; Y83.1 Surgical operation with implant of artificial internal device as the cause of abnormal reaction of the patient, or of later complication, without mention of misadventure at the time of the procedure; Z79.4 Long term (current) use of insulin; Z79.82 Long term (current) use of aspirin; Z79.899 Other long term (current) drug therapy; Z82.49 Family history of ischemic heart disease and other diseases of the circulatory system; Z88.5 Allergy status to narcotic agent
CPT/HCPCS: 36415; 36620; 71010; 71020; 80048; 80053; 80061; 80074; 81001; 82272; 82330; 82550; 82553; 82805; 83036; 83735; 83880; 84439; 84443; 84484; 85025; 85027; 85520; 85610; 85730; 86850; 86891; 86900; 86901; 86920; 87070; 87086; 93005; 93306; 93458; 93880; 93923; 93970; 94002; 94150; 94640; 94760; 96365; 96375; 96376; 99291

== ENCOUNTER → 2017-01-02 | Outpatient (CLI) | payer MEDICARE, BC ==
[2017-01-02 11:11] LABS: ALT 21 U/L (9-52); AST 13 U/L (14-36); Alkaline Phosphatase 65 U/L (38-126); Anion Gap 9 mmol/L; Blood Urea Nitrogen 16 mg/dL (7-17); Carbon Dioxide 28 mmol/L (22-30); Chloride 104 mmol/L (98-107); Cholesterol 63 mg/dL (<200); Glucose 169 mg/dL (74-99); HDL Cholesterol 29 mg/dL (40-60); Non-African American GFR(MDRD) >60 (>60 ml/min/1.73 sqM); Potassium 4.2 mmol/L (3.5-5.1); Sodium 141 mmol/L (137-145); Total Bilirubin 0.6 mg/dL (0.2-1.3); Total Protein 6.8 g/dL (6.3-8.2); Triglycerides 87 mg/dL (<150)
[2017-01-02 11:40] LABS: Basophils % (A) 0 %; CH 27.1; CHCM 30.1; Eosinophils # (A) 0.4 k/uL (0-0.7); Eosinophils % (A) 4 %; HCT 27.8 % (34.0-46.0); HDW 4.27; HGB 8.4 gm/dL (11.4-16.0); Hypochromasia Marked; Luc # (Auto) 0.34; Luc % (Auto) 3; Lymphocytes # (A) 1.6 k/uL (1.0-4.8); Lymphocytes % (A) 15 %; MCH 27.3 pg (25.0-35.0); MCHC 30.3 g/dL (31.0-37.0); Mean Platelet Volume 6.8; Monocytes # (A) 0.8 k/uL (0-1.0); Monocytes % (A) 7 %; Neutrophils # (A) 7.5 k/uL (1.3-7.7); Neutrophils % (A) 70 %; Poikilocytosis Moderate; RBC 3.09 m/uL (3.80-5.40); RDW 14.7 % (11.5-15.5); WBC 10.6 k/uL (3.8-10.6); WBC (Perox) 10.43
== END | disposition home or self-care (01) ==
LOC: LABWHC1 01-01 11:56
PROVIDERS: ATTEND Internal Medicine Cardiovascular Disease
DX: D69.6 Thrombocytopenia, unspecified (principal); I10 Essential (primary) hypertension; I25.10 Atherosclerotic heart disease of native coronary artery without angina pectoris
CPT/HCPCS: 36415; 80053; 80061; 85025

== ENCOUNTER → 2017-03-27 | Outpatient (CLI) | payer MEDICARE, BC ==
--- NOTE | 2017-03-28 09:32 | USB ---
Reason for exam: follow-up at short interval from prior study. History: Patient is postmenopausal. Benign left mammotome panel of the left breast, October 18, 2005. Physical Findings: Nurse did not find any significant physical abnormalities on exam (nurse abdiaziz). US Breast RT Right breast ultrasound includes all four quadrants, the retroareolar region and axilla. Finding demonstrate a 0.5 x 0.6 x 0.3cm oval, hypoechoic lesion at 12 o'clock and a 0.8 x 2.1 x 0.5cm oval lymph node at axilla. These results were verbally communicated with the patient and result sheet given to the patient on 03/27/17. ASSESSMENT: Suspicious, BI-RAD 4 RECOMMENDATION: Surgical consultation and ultrasound core biopsy of the right breast. Called Dr. Weiner with mammographic findings and has scheduled an appointment for the patient for 04/03/17 at 3:[address] Diego. PRELIMINARY REPORT CALLED AND FAXED TO DR. DIEGO ON 03/27/17.AT 300/TMP.
== END | disposition home or self-care (01) ==
LOC: RADUSWWP 08:11
PROVIDERS: ATTEND Family Medicine
DX: R93.8 Abnormal findings on diagnostic imaging of other specified body structures (principal)

== ENCOUNTER 2017-05-11 14:18 | Emergency (ER) | payer MEDICARE, BC ==
--- NOTE | 2017-05-11 14:48 | ED ---
General Adult HPI - General Chief complaint: Headache Stated complaint: Headache and Chest Pain Time Seen by Provider: 05/11/17 14:25 Source: patient, EMS, RN notes reviewed Mode of arrival: EMS Limitations: no limitations - History of Present Illness Initial comments: 67-year-old female presenting for evaluation of headache. Patient was seen at urgent care and encouraged to come to the emergency department for evaluation. Patient had a headache over the past 3 days. Yesterday evening she did have an episode of vomiting associated with her headache. This frontal in nature, dull and throbbing. This is atypical for the patient. Patient went to urgent care with chief complaint headache and just generally not feeling well. She did mention that she had some intermittent left anterior chest pain. She has no chest pain at the time my evaluation. No headache at the time my evaluation. Patient's only complaint is shortness of breath at this time. She does have chronic shortness of breath secondary to her asthma and COPD. She has remote history of tobacco use, quit approximately 5 years ago. Patient had open-heart surgery in November of this year for triple-vessel disease. Episode of chest pain was less than a minute, happened yesterday. Not associated with nausea vomiting , no radiation. - Related Data Home Medications Medication Instructions Recorded Confirmed Aspirin 81 mg PO DAILY 12/17/14 05/11/17 Furosemide [Lasix] 20 mg PO DAILY PRN 12/17/14 05/11/17 Insulin Lispro Protamin/Lispro 70 unit SQ AC-SUPPER 12/17/14 05/11/17 [humaLOG Mix 75-25 Kwikpen] Lisinopril [Prinivil] 10 mg PO DAILY 12/17/14 05/11/17 metFORMIN HCL [Glucophage] 850 mg PO AC-TID 12/17/14 05/11/17 Albuterol Inhaler [Ventolin Hfa 1 - 2 puff INHALATION RT-Q6H PRN 04/18/15 Inhaler] Budesonide-Formot 160-4.5 Mcg 2 puff INHALATION RT-BID 04/18/15 05/11/17 [Symbicort 160-4.5 Mcg Inhaler] Insulin Lispro Protamin/Lispro 60 unit SQ DAILY 04/18/15 05/11/17 [humaLOG Mix 75-25 Kwikpen] Tiotropium [place] [Spiriva] 1 cap INHALATION RT-DAILY 04/18/15 05/11/17 Atorvastatin [Lipitor] 80 mg PO HS 11/24/16 05/11/17 Insulin Glargine,Hum.rec.anlog 80 unit SQ HS 11/24/16 05/11/17 [Lantus Solostar] Ipratropium-Albuterol Nebulize 3 ml INHALATION RT-QID PRN 11/24/16 05/11/17 [Duoneb 0.5 mg-3 mg/3 ml Soln] Ferrous Sulfate [Feosol] 325 mg PO DAILY 05/11/17 05/11/17 Gabapentin [Neurontin] 300 mg PO DAILY 05/11/17 05/11/17 Sennosides/Docusate Sodium 1 tab PO DAILY 05/11/17 05/11/17 [Rita-Colace Tablet] Previous Rx's Medication Instructions Recorded Clopidogrel [Plavix] 75 mg PO DAILY #30 tab 12/04/16 Metoprolol Tartrate [Lopressor] 25 mg PO TID #90 tab 12/04/16 Multivitamins, Thera [Multivitamin 1 each PO DAILY@1200 tab 12/04/16 (formulary)] Azithromycin [Zithromax Z-pack] 0 mg PO DIRECTED #6 tab 05/11/17 Allergies Allergy/AdvReac Type Severity Reaction Status Date / Time codeine Allergy Nausea & Verified 05/11/17 14:27 Vomiting Review of Systems ROS Statement: Those systems with pertinent positive or pertinent negative responses have been documented in the HPI. ROS Other: All systems not noted in ROS Statement are negative. Past Medical History Past Medical History: Asthma, Chest Pain / Angina, COPD, Diabetes Mellitus, Hyperlipidemia, Hypertension, Myocardial Infarction (VT), Syncope Additional Past Medical History / Comment(s): NEBULIZER AT HOME, Last Myocardial Infarction Date:: 2010 History of Any Multi-Drug Resistant Organisms: None Reported Past Surgical History: Cholecystectomy, Heart Catheterization With Stent Additional Past Surgical History / Comment(s): 1st stent in 2010, 3 more stents placed -about 2014 Past Anesthesia/Blood Transfusion Reactions: No Reported Reaction Additional Past Anesthesia/Blood Transfusion Reaction / Comment(s): CLAUSTERPHOBIA Date of Last Stent Placement:: 2014 Past Psychological History: No Psychological Hx Reported Smoking Status: Former smoker Past Alcohol Use History: None Reported Past Drug Use History: None Reported - Past Family History Father Family Medical History: Myocardial Infarction (VT) Additional Family Medical History / Comment(s): STENT, OPEN HEART SURGERY Mother Additional Family Medical History / Comment(s): DEPRESSION General Exam Limitations: no limitations General appearance: alert, in no apparent distress Head exam: Present: atraumatic, normocephalic Eye exam: Present: normal appearance, PERRL Respiratory exam: Present: decreased breath sounds, other (Somewhat labored breathing, no wheezing, no rales). Absent: wheezes Cardiovascular Exam: Present: regular rate, normal rhythm GI/Abdominal exam: Absent: distended, tenderness, guarding Extremities exam: Present: normal inspection, full ROM, tenderness, normal capillary refill. Absent: pedal edema Back exam: Present: normal inspection, full ROM Neurological exam: Present: alert, oriented X3, CN II-XII intact. Absent: motor sensory deficit Psychiatric exam: Present: normal affect, normal mood Skin exam: Present: warm, dry, intact. Absent: cyanosis, diaphoretic Course Vital Signs 05/11/17 05/11/17 05/11/17 14:27 14:40 15:56 Temperature 98.3 F Pulse Rate 72 70 Respiratory 18 20 18 Rate Blood Pressure 157/67 129/60 O2 Sat by Pulse 95 98 Oximetry - Reevaluation(s) Reevaluation #1: 05/11/17 15:56 On reevaluation, patient denies headache, denies chest pain. EKG Findings - EKG Comments: EKG Findings:: EKG sinus rhythm with first-degree AV block, left axis deviation , ventricular rate is 71, WV interval 212, QRS duration 106, QTC 465, no ST segment elevation. Medical Decision Making - Medical Decision Making 67-year-old female presents for evaluation of headache. Headache was approximately 3 days in duration, resolved at this time. Patient did have an episode of chest pain yesterday. This was only seconds in duration. Pain was atypical. She has had no pain today. EKG is nonischemic. Laboratory studies reveal hemoglobin 10.0 which is improved from previous, magnesium is low at 1.4 and is replaced. Chest x-ray does show right middle lobe infiltrate versus atelectasis. Patient does have baseline shortness of breath secondary to COPD, however she denies fever, denies productive cough. Vital signs do not indicate clinically significant pneumonia at this time. Patient will be started on a azithromycin given her history of COPD and risks for pneumonia. Chest pain was yesterday nonsustained, unlikely to be cardiac in nature, however patient is offered observation for repeat cardiac enzymes. She declines. Although headache is resolved. Patient is on aspirin and Plavix, head CT is obtained, this is negative for intracranial hemorrhage or mass effect. Patient remains asymptomatic while in the emergency department. Her magnesium was replaced and she will be discharged for outpatient follow-up. Return to emergency department with worsening symptoms. - Lab Data Result diagrams: 05/11/17 15:11 05/11/17 15:11 Lab Results 05/11/17 05/11/17 05/11/17 Range/Units 15:11 15:11 15:11 WBC 8.5 (3.8-10.6) k/uL RBC 3.72 L (3.80-5.40) m/uL Hgb 10.0 L (11.4-16.0) gm/dL Hct 31.5 L (34.0-46.0) % MCV 84.9 (80.0-100.0) fL MCH 26.9 (25.0-35.0) pg MCHC 31.7 (31.0-37.0) g/dL RDW 16.4 H (11.5-15.5) % Plt Count 405 (150-450) k/uL Neutrophils % 69 % Lymphocytes % 19 % Monocytes % 7 % Eosinophils % 3 % Basophils % 1 % Neutrophils # 5.8 (1.3-7.7) k/uL Lymphocytes # 1.6 (1.0-4.8) k/uL Monocytes # 0.6 (0-1.0) k/uL Eosinophils # 0.3 (0-0.7) k/uL Basophils # 0.0 (0-0.2) k/uL Hypochromasia Slight Anisocytosis Slight PT (9.0-12.0) sec INR (<1.2) APTT (22.0-30.0) sec Sodium 138 (137-145) mmol/L Potassium 3.9 (3.5-5.1) mmol/L Chloride 100 (98-107) mmol/L Carbon Dioxide 26 (22-30) mmol/L Anion Gap 12 mmol/L BUN 11 (7-17) mg/dL Creatinine 0.60 (0.52-1.04) mg/dL Est GFR (MDRD) Af Amer >60 (>60 ml/min/1.73 sqM) Est GFR (MDRD) Non-Af >60 (>60 ml/min/1.73 sqM) Glucose 222 H (74-99) mg/dL Calcium 9.0 (8.4-10.2) mg/dL Magnesium 1.4 L (1.6-2.3) mg/dL Total Bilirubin 0.9 (0.2-1.3) mg/dL AST 16 (14-36) U/L ALT 26 (9-52) U/L Alkaline Phosphatase 65 (38-126) U/L Total Creatine Kinase 58 (30-135) U/L CK-MB (CK-2) 0.8 (0.0-2.4) ng/mL CK-MB (CK-2) Rel Index 1.4 Troponin I 0.014 (0.000-0.034) ng/mL NT-Pro-B Natriuret Pep pg/mL Total Protein 6.7 (6.3-8.2) g/dL Albumin 3.5 (3.5-5.0) g/dL 05/11/17 05/11/17 Range/Units 15:11 15:11 WBC (3.8-10.6) k/uL RBC (3.80-5.40) m/uL Hgb (11.4-16.0) gm/dL Hct (34.0-46.0) % MCV (80.0-100.0) fL MCH (25.0-35.0) pg MCHC (31.0-37.0) g/dL RDW (11.5-15.5) % Plt Count (150-450) k/uL Neutrophils % % Lymphocytes % % Monocytes % % Eosinophils % % Basophils % % Neutrophils # (1.3-7.7) k/uL Lymphocytes # (1.0-4.8) k/uL Monocytes # (0-1.0) k/uL Eosinophils # (0-0.7) k/uL Basophils # (0-0.2) k/uL Hypochromasia Anisocytosis PT 10.8 (9.0-12.0) sec INR 1.1 (<1.2) APTT 21.7 L (22.0-30.0) sec Sodium (137-145) mmol/L Potassium (3.5-5.1) mmol/L Chloride (98-107) mmol/L Carbon Dioxide (22-30) mmol/L Anion Gap mmol/L BUN (7-17) mg/dL Creatinine (0.52-1.04) mg/dL Est GFR (MDRD) Af Amer (>60 ml/min/1.73 sqM) Est GFR (MDRD) Non-Af (>60 ml/min/1.73 sqM) Glucose (74-99) mg/dL Calcium (8.4-10.2) mg/dL Magnesium (1.6-2.3) mg/dL Total Bilirubin (0.2-1.3) mg/dL AST (14-36) U/L ALT (9-52) U/L Alkaline Phosphatase (38-126) U/L Total Creatine Kinase (30-135) U/L CK-MB (CK-2) (0.0-2.4) ng/mL CK-MB (CK-2) Rel Index Troponin I (0.000-0.034) ng/mL NT-Pro-B Natriuret Pep 1070 pg/mL Total Protein (6.3-8.2) g/dL Albumin (3.5-5.0) g/dL Disposition Clinical Impression: Headache, Hypomagnesemia Disposition: HOME SELF-CARE Condition: Good Instructions: Acute Headache (ED), Community Acquired Pneumonia (ED), Hypomagnesemia (ED) Prescriptions: Azithromycin [Zithromax Z-pack] 0 mg PO DIRECTED #6 tab Referrals: Elvira Gonzales MD [Primary Care Provider] - 1-2 days
[2017-05-11 15:29] LABS: Anisocytosis Slight; Basophils % (A) 1 %; CH 26.5; CHCM 31.3; Eosinophils # (A) 0.3 k/uL (0-0.7); Eosinophils % (A) 3 %; HCT 31.5 % (34.0-46.0); HDW 2.64; Hypochromasia Slight; Luc # (Auto) 0.14; Luc % (Auto) 2; Lymphocytes # (A) 1.6 k/uL (1.0-4.8); Lymphocytes % (A) 19 %; MCH 26.9 pg (25.0-35.0); MCHC 31.7 g/dL (31.0-37.0); MCV 84.9 fL (80.0-100.0); Mean Platelet Volume 6.5; Monocytes # (A) 0.6 k/uL (0-1.0); Monocytes % (A) 7 %; Neutrophils # (A) 5.8 k/uL (1.3-7.7); Neutrophils % (A) 69 %; RBC 3.72 m/uL (3.80-5.40); RDW 16.4 % (11.5-15.5); WBC 8.5 k/uL (3.8-10.6); WBC (Perox) 8.17
[2017-05-11 15:36] LABS: ALT 26 U/L (9-52); AST 16 U/L (14-36); Alkaline Phosphatase 65 U/L (38-126); Anion Gap 12 mmol/L; Blood Urea Nitrogen 11 mg/dL (7-17); Carbon Dioxide 26 mmol/L (22-30); Chloride 100 mmol/L (98-107); Glucose 222 mg/dL (74-99); Magnesium 1.4 mg/dL (1.6-2.3); Non-African American GFR(MDRD) >60 (>60 ml/min/1.73 sqM); Potassium 3.9 mmol/L (3.5-5.1); Sodium 138 mmol/L (137-145); Total Bilirubin 0.9 mg/dL (0.2-1.3); Total Protein 6.7 g/dL (6.3-8.2)
--- NOTE | 2017-05-11 15:39 | CT ---
EXAMINATION TYPE: CT brain wo con DATE OF EXAM: 05/11/2017 COMPARISON: NONE HISTORY: headache CT DLP: 1047.1 mGycm. Automated Exposure Control for Dose Reduction was Utilized. TECHNIQUE: CT scan of the head is performed without contrast. FINDINGS: There is no acute intracranial hemorrhage, mass effect, or midline shift identified. The ventricles and sulci are symmetrically prominent, compatible with age-related atrophy. The globes a re intact and the visualized sinuses are clear. Incidental note is made of hyperostosis frontalis int ernus and talus. Large calcification is present along the falx cerebri. Incidental note is also made of minimal nasal turbinate sanjuana bullosa. IMPRESSION: No acute intracranial hemorrhage, mass effect, or midline shift is seen.
[2017-05-11 15:41] LABS: INR 1.1 (<1.2); Prothrombin Time 10.8 sec (9.0-12.0)
[2017-05-11] MEDS ORDERED: MAGNESIUM SULFATE-D5W PMX 1 GM in DEXTROSE/WATER 1 100ML.BAG IVPB ONE (15:44)
--- NOTE | 2017-05-11 15:45 | XR ---
EXAMINATION TYPE: XR chest 2V DATE OF EXAM: 05/11/2017 COMPARISON: 12/04/2016 TECHNIQUE: PA and lateral views submitted. HISTORY: Chest pain FINDINGS: The lungs are clear and there is no pneumothorax, pleural effusion, or focal pneumonia. Atheroscler otic change aorta. Postsurgical changes noted. Hyperinflation suggests COPD. Surgical changes in the abdomen noted. There is an area of linear subsegmental consolidation right middle lobe. There is inte rval marked improvement in appearance of the left lung base with reduction in consolidation and pleur al effusion. IMPRESSION: 1. Right middle lobe atelectasis or early infiltrate. Findings appear improved relative to the previo us exam particularly on the left.
[2017-05-11 15:50] LABS: Partial Thromboplastin Time 21.7 sec (22.0-30.0)
[2017-05-11 16:01] LABS: Creatine Kinase MB 0.8 ng/mL (0.0-2.4); Troponin I 0.014 ng/mL (0.000-0.034)
[2017-05-11 16:03] VITALS: RESP 18
[2017-05-11 17:14] VITALS: BP 129/62; PULSE 75; TEMP 97.8
== END 2017-05-11 17:25 | disposition home or self-care (01) ==
LOC: EC 14:18
DX: E83.42 Hypomagnesemia (principal); R51 Headache; J45.909 Unspecified asthma, uncomplicated; J44.9 Chronic obstructive pulmonary disease, unspecified; E11.9 Type 2 diabetes mellitus without complications; E78.5 Hyperlipidemia, unspecified; I10 Essential (primary) hypertension; I25.2 Old myocardial infarction; Z95.5 Presence of coronary angioplasty implant and graft; Z87.891 Personal history of nicotine dependence; Z79.4 Long term (current) use of insulin; Z79.82 Long term (current) use of aspirin; Z79.899 Other long term (current) drug therapy; Z88.5 Allergy status to narcotic agent
CPT/HCPCS: 36415; 93005; 83880; 80053; 82550; 82553; 83735; 84484; 85025; 85610; 85730; 71020; 70450; 99285; 96365; J3475

== ENCOUNTER → 2017-10-03 | Outpatient (CLI) | payer MEDICARE, BC ==
--- NOTE | 2017-10-03 12:55 | XR ---
EXAMINATION TYPE: XR lumbosacral spine min 4V DATE OF EXAM: 10/03/2017 CLINICAL HISTORY: Low back pain for 2 years TECHNIQUE: Frontal, lateral, and oblique images of the lumbar spine are obtained. COMPARISON: None FINDINGS: There are 5 lumbar type vertebral bodies identified. There is minimal grade 1 retrolisthes is of L3 on L4. The remainder of the lumbar spine shows satisfactory alignment without evidence of ac jihan fracture or dislocation. There is a minimal dextroscoliotic curvature of the lower lumbar spine. Moderate multilevel degenerative disc disease is seen resulting in at least mild neural foraminal davis rowing at L3-L4 on the right and L4-5 on the left. Vertebral body heights and disk space heights are within normal limits. Cholecystectomy clips are noted within the right upper quadrant. Linear calcifi c atheromatous changes are seen of the abdominal aorta and its branches. IMPRESSION: 1. No acute fracture or malalignment is seen in the lumbar spine. 2. Moderate multilevel degenerative disc disease of the lumbar spine resulting in neural foraminal na rrowing as described above. MR could be performed to further evaluate for disc herniation and spinal canal stenosis. 3. Mild retrolisthesis of L3 on L4, likely degenerative.
== END | disposition home or self-care (01) ==
LOC: RADXRMAIN 11:46
PROVIDERS: ATTEND Family Medicine
DX: M99.73 Connective tissue and disc stenosis of intervertebral foramina of lumbar region (principal); M51.36 Other intervertebral disc degeneration, lumbar region; M43.16 Spondylolisthesis, lumbar region
CPT/HCPCS: 72110

== ENCOUNTER → 2017-11-08 | Outpatient (CLI) | payer MEDICARE, BC ==
[2017-11-08 17:27] LABS: Blood Urea Nitrogen 13 mg/dL (7-17)
--- NOTE | 2017-11-08 18:09 | CT ---
EXAMINATION TYPE: CT angio chest DATE OF EXAM: 11/08/2017 6:01 PM COMPARISON: NONE HISTORY: Shortness of breath x 1 month. Redness around scar from sternal incision after triple bypass [address] DLP: 498.2 mGycm Automated exposure control for dose reduction was used. CONTRAST: CTA scan of the thorax is performed with IV Contrast, patient injected with 70 mL of Omnipaque 350, p ulmonary embolism protocol. There are 3-D post processed images.. FINDINGS: There is mild groundglass interstitial density in the upper lung robert. There is pleural thickening in the left major fissure. There is no pleural effusion. There is no pericardial effusion. I see no filling defects in the pulmonary arteries. There is no eligio dence of aortic dissection. Ascending aorta measures 3.8 cm. There is coronary artery calcification. There are a few mediastinal lymph nodes and bronchial lymph nodes that measure up to 1 cm. There is s purring in the thoracic spine. IMPRESSION: INTERSTITIAL PULMONARY DENSITY CONSISTENT WITH FIBROSIS. NO EVIDENCE OF PULMONARY EMBOLISM. ATHEROSCL EROTIC VASCULAR DISEASE. BORDERLINE ANEURYSM OF THE ASCENDING AORTA. NONSPECIFIC MILD MEDIASTINAL AND BRONCHIAL ADENOPATHY.
== END | disposition home or self-care (01) ==
LOC: RADCTMAIN 16:48
PROVIDERS: ATTEND Internal Medicine Critical Care Medicine
DX: I25.10 Atherosclerotic heart disease of native coronary artery without angina pectoris (principal); I71.2 Thoracic aortic aneurysm, without rupture; R59.0 Localized enlarged lymph nodes
CPT/HCPCS: 82565; 84520; 71275; 36415; Q9967

== ENCOUNTER → 2018-01-24 | Outpatient (CLI) | payer MEDICARE, BC | END | disposition home or self-care (01) | LOC: LABWHC1 13:58 | PROVIDERS: ATTEND Thoracic Surgery (Cardiothoracic Vascular Surgery) | DX: T81.32XA Disruption of internal operation (surgical) wound, not elsewhere classified, initial encounter (principal) | CPT/HCPCS: 87070; 87205 ==

== ENCOUNTER → 2018-04-12 | Outpatient (CLI) | payer MEDICARE, BC ==
[2018-04-12 09:16] LABS: HCT 38.1 % (34.0-46.0); HGB 12.8 gm/dL (11.4-16.0); MCH 30.3 pg (25.0-35.0); MCHC 33.6 g/dL (31.0-37.0); MCV 90.2 fL (80.0-100.0); Platelet Count 349 k/uL (150-450); RBC 4.22 m/uL (3.80-5.40); RDW 12.8 % (11.5-15.5)
[2018-04-12 09:33] LABS: ALT 30 U/L (9-52); AST 18 U/L (14-36); Albumin 3.4 g/dL (3.5-5.0); Alkaline Phosphatase 103 U/L (38-126); Anion Gap 10 mmol/L; Bilirubin, Delta 0.2 mg/dL (0.0-0.2); Bilirubin,Unconjugated 0.4 mg/dL (0.0-1.1); Blood Urea Nitrogen 18 mg/dL (7-17); Calcium 9.6 mg/dL (8.4-10.2); Carbon Dioxide 27 mmol/L (22-30); Chloride 100 mmol/L (98-107); Cholesterol 82 mg/dL (<200); Glucose 297 mg/dL (74-99); HDL Cholesterol 32 mg/dL (40-60); LDL Cholesterol,Calculated 27 mg/dL (0-99); Sodium 137 mmol/L (137-145); Total Bilirubin 0.6 mg/dL (0.2-1.3); Total Protein 6.3 g/dL (6.3-8.2); Triglycerides 113 mg/dL (<150)
[2018-04-12 12:02] LABS: Erythrocyte Sedimentation Rate 42 mm/hr (0-20)
== END | disposition home or self-care (01) ==
LOC: LABWHC1 08:42
PROVIDERS: ATTEND Internal Medicine Cardiovascular Disease
DX: E78.2 Mixed hyperlipidemia (principal)
CPT/HCPCS: 36415; 80053; 80061; 82248; 84443; 85027; 85652; 86141

== ENCOUNTER 2018-04-25 08:21 | Day surgery (SDC) | payer MEDICARE, BC ==
[2018-04-24 09:01] VITALS: BMI 38.4
[~2018-04-25 08:21] MED LIST: DEXAMETHASONE SOD PHOSPHATE 10 MG/ML 1 ML VIAL IV ONE; HYDROmorphone 0.5 MG/0.5 ML SYRINGE IVP PRN; LACTATED RINGERS 1,000 ML IV SCH; ONDANSETRON 4 MG/2 ML VIAL IVP ONE; ceFAZolin IN SWFI 2 GM/20 ML SYRINGE IVP ONE
[2018-04-25 08:59] VITALS: TEMP 97.8
[2018-04-25 09:12] LABS: Glucose,Whole Blood 316 mg/dL (75-99)
[2018-04-25] MEDS ORDERED: LIDOCAINE 1% 20 ML VIAL (10MG/ML) FOR IV START INTRADERMA ONE (09:13)
[2018-04-25] MEDS ORDERED: ALBUTEROL NEBULIZED 2.5 MG/3 ML INHALATION STA (09:18)
[2018-04-25] MEDS ORDERED: INSULIN REGULAR 100 UNIT/ML VIAL IV ONE (09:31)
[2018-04-25] MEDS ORDERED: INSULIN ASPART 100 UNIT/ML 1 ML 10 ML VIAL SQ ONE (09:31)
[2018-04-25] MEDS ORDERED: LIDOCAINE 1% INJ 10MG/ML (20 ML MDV) ONE (10:11)
[2018-04-25] MEDS ORDERED: MIDAZOLAM 2 MG/2 ML VIAL ONE (10:11)
[2018-04-25] MEDS ORDERED: ePHEDrine SULFATE/0.9% NACL/PF 50 MG/5 ML SYRINGE IV ONE (10:11)
[2018-04-25] MEDS ORDERED: fentaNYL (PF) 50 MCG/ML 2 ML AMP ONE (10:11)
[2018-04-25] MEDS ORDERED: PROPOFOL 10 MG/ML 20 ML VIAL IV ONE (10:11)
[2018-04-25] MEDS ORDERED: SUCCINYLCHOLINE CHLORIDE VIAL 200 MG/10 ML VIAL IV ONE (10:11)
[2018-04-25] MEDS ORDERED: PHENYLEPHRINE-0.9% NACL SYG 1 MG/10 ML SYRINGE ONE (10:11)
[2018-04-25 10:12] LABS: Glucose,Whole Blood 326 mg/dL (75-99)
[2018-04-25] MEDS ORDERED: ceFAZolin 1,000 MG in SODIUM CHLORIDE 0.9% 1,000 ML IRRIGATION ONE (10:53)
[2018-04-25 11:26] LABS: Glucose,Whole Blood 305 mg/dL (75-99)
[2018-04-25 12:06] VITALS: RESP 16
--- NOTE | 2018-04-25 12:08 | P.OP ---
Date of Procedure: 04/25/18 Preoperative Diagnosis: Draining sinus tract upper portion of sternotomy status post coronary bypass grafting Postoperative Diagnosis: Same Procedure(s) Performed: Sternal debridement, removal of hardware Anesthesia: CLARAA Surgeon: Allan Desouza Estimated Blood Loss (ml): 20 IV fluids (ml): 800 Pathology: other (Sternal debridement tissue, hardware) Condition: stable Disposition: PACU Indications for Procedure: 68-year-old female who is now 5 months status post coronary bypass surgery. She is morbidly obese. She had presented to my office about 6 weeks ago with the open area at the superior aspect of her sternotomy incision with some drainage and some granulation tissue. She has been treated on several occasions now in the office for the granulation tissue but it keeps recurring. She is also had persistent drainage of thin and occasionally purulent material. Most recently I was able to finally diagnose a tract leading down toward her sternum. Operative Findings: There was a tract leading down to the sternum. It led to a plate in the manubrium. There was a large amount of inflammatory tissue present. Description of Procedure: The patient was brought to the operating room, placed supine on the operating table, anesthetized and intubated. The anterior chest and neck were sterilely prepped and draped. An elliptical incision was made vertically around the sinus tract. This was carried down through skin and subcutaneous tissue to the bone. Care was taken to follow the sinus tract. On reaching the bone we recognized that this led directly to a plate on the manubrium. All of the inflamed and infected tissue was sharply excised using Bovie and scissors. There was a wire just above the plate. The wire was cut and removed. 4 screws holding the plate were removed. The caval it held the plate in place was also cut. The plate and table and screws were all removed. The bone was well healed and stable. The area was irrigated with antibiotic solution. Good healthy tissue was present.'s was closed with layers of Vicryl suture. Skin glue dressing was applied. Cultures had been obtained at the beginning of the procedure from the sinus tract. Completion the patient procedure the patient was awakened and transferred to recovery. Plan - Discharge Summary New Discharge Prescriptions: No Action Aspirin 81 mg PO DAILY metFORMIN HCL [Glucophage] 850 mg PO AC-TID Furosemide [Lasix] 20 mg PO DAILY PRN PRN Reason: SWELLING Insulin Lispro Protamin/Lispro [humaLOG Mix 75-25 Kwikpen] 70 unit SQ AC- SUPPER Insulin Lispro Protamin/Lispro [humaLOG Mix 75-25 Kwikpen] 60 unit SQ DAILY Budesonide-Formot 160-4.5 Mcg [Symbicort 160-4.5 Mcg Inhaler] 2 puff INHALATION RT-BID Albuterol Inhaler [Ventolin Hfa Inhaler] 1 - 2 puff INHALATION RT-Q6H PRN PRN Reason: Shortness Of Breath Insulin Glargine,Hum.rec.anlog [Lantus Solostar] 80 unit SQ HS Ipratropium-Albuterol Nebulize [Duoneb 0.5 mg-3 mg/3 ml Soln] 3 ml INHALATION RT-QID PRN PRN Reason: Shortness Of Breath Atorvastatin [Lipitor] 80 mg PO HS Clopidogrel [Plavix] 75 mg PO DAILY #30 tab Metoprolol Tartrate [Lopressor] 25 mg PO TID #90 tab Multivitamins, Thera [Multivitamin (formulary)] 1 each PO DAILY@1200 tab Gabapentin [Neurontin] 300 mg PO DAILY Discharge Medication List Aspirin 81 mg PO DAILY 12/17/14 [History] Furosemide [Lasix] 20 mg PO DAILY PRN 12/17/14 [History] Insulin Lispro Protamin/Lispro [humaLOG Mix 75-25 Kwikpen] 70 unit SQ AC-SUPPER 12/17/14 [History] metFORMIN HCL [Glucophage] 850 mg PO AC-TID 12/17/14 [History] Albuterol Inhaler [Ventolin Hfa Inhaler] 1 - 2 puff INHALATION RT-Q6H PRN [History] Budesonide-Formot 160-4.5 Mcg [Symbicort 160-4.5 Mcg Inhaler] 2 puff INHALATION RT-BID 04/18/15 [History] Insulin Lispro Protamin/Lispro [humaLOG Mix 75-25 Kwikpen] 60 unit SQ DAILY [History] Atorvastatin [Lipitor] 80 mg PO HS 11/24/16 [History] Insulin Glargine,Hum.rec.anlog [Lantus Solostar] 80 unit SQ HS 11/24/16 [History ] Ipratropium-Albuterol Nebulize [Duoneb 0.5 mg-3 mg/3 ml Soln] 3 ml INHALATION RT -QID PRN 11/24/16 [History] Clopidogrel [Plavix] 75 mg PO DAILY #30 tab 12/04/16 [Rx] Metoprolol Tartrate [Lopressor] 25 mg PO TID #90 tab 12/04/16 [Rx] Multivitamins, Thera [Multivitamin (formulary)] 1 each PO DAILY@1200 tab [Rx] Gabapentin [Neurontin] 300 mg PO DAILY 05/11/17 [History] Follow up Appointment(s)/Referral(s): Allan Desouza MD [STAFF PHYSICIAN] - 1 Week (call to make appointment) Patient Instructions/Handouts: *Surgery [facility] - (Anesthesia) Discharge Instructions Outpatient Surgery Activity/Diet/Wound Care/Special Instructions: May take Motrin or Tylenol for pain as needed.
[2018-04-25 12:45] VITALS: BP 129/76; PULSE 73
== END 2018-04-25 13:18 | disposition home or self-care (01) ==
LOC: OR 08:21
PROVIDERS: ATTEND Thoracic Surgery (Cardiothoracic Vascular Surgery)
DX: T81.83XA Persistent postprocedural fistula, initial encounter (principal); I25.10 Atherosclerotic heart disease of native coronary artery without angina pectoris; I10 Essential (primary) hypertension; E78.5 Hyperlipidemia, unspecified; J44.9 Chronic obstructive pulmonary disease, unspecified; E11.9 Type 2 diabetes mellitus without complications; I25.2 Old myocardial infarction; E66.01 Morbid (severe) obesity due to excess calories; Z68.38 Body mass index [BMI] 38.0-38.9, adult; Z95.1 Presence of aortocoronary bypass graft; Z95.5 Presence of coronary angioplasty implant and graft; Z79.02 Long term (current) use of antithrombotics/antiplatelets; Z79.82 Long term (current) use of aspirin; Z79.4 Long term (current) use of insulin; Z79.51 Long term (current) use of inhaled steroids; Z79.899 Other long term (current) drug therapy; Z88.5 Allergy status to narcotic agent; Z87.891 Personal history of nicotine dependence
CPT/HCPCS: 94640; 88304; 87070; 87205; 87075; 87102; 87077; 87186; 20670; J2250; J0330; J2405; J0690 ×2; J2001; J3010; J2370; J2704; J1170

== ENCOUNTER → 2018-06-28 | Outpatient (CLI) | payer MEDICARE, BC ==
[2018-06-28 14:46] LABS: HCT 37.6 % (34.0-46.0); HGB 12.2 gm/dL (11.4-16.0); MCH 29.5 pg (25.0-35.0); MCHC 32.5 g/dL (31.0-37.0); MCV 90.8 fL (80.0-100.0); Mean Platelet Volume 6.8; Platelet Count 364 k/uL (150-450); RBC 4.15 m/uL (3.80-5.40); RDW 13.4 % (11.5-15.5); WBC 10.3 k/uL (3.8-10.6)
[2018-06-28 16:26] LABS: Erythrocyte Sedimentation Rate 42 mm/hr (0-20)
[2018-06-28 18:40] LABS: Albumin 3.8 g/dL (3.80-4.90); Albumin/Globulin Ratio 1.73 (1.20-2.10); Anion Gap 6.7 mmol/L (4.00-12.00); Bilirubin, Conjugated 0.3 mg/dL (0.20-0.40); Bilirubin,Unconjugated 0.6 mg/dL; Calcium 9.1 mg/dL (8.7-10.3); Carbon Dioxide 32.3 mmol/L (21.6-31.8); Globulin 2.2 g/dL (2.1-3.7); LDL Cholesterol,Calculated 47.2 mg/dL (0.0-131.0); Potassium 3.8 mmol/L (3.5-5.5); Total Bilirubin 0.9 mg/dL (0.3-1.2); VLDL Calculation 14.8 mg/dL (5.00-40.00)
== END ==
LOC: LABWHC1 12:54
PROVIDERS: ATTEND Internal Medicine Cardiovascular Disease
DX: I25.810 Atherosclerosis of coronary artery bypass graft(s) without angina pectoris (principal); E78.2 Mixed hyperlipidemia
CPT/HCPCS: 36415; 80053; 80061; 82248; 84443; 85027; 85652; 86141

== ENCOUNTER 2018-08-30 15:46 | Emergency (ER) | payer BC, MEDICARE ==
[2018-08-30] MEDS ORDERED: ASPIRIN 81 MG PO STA (16:56)
--- NOTE | 2018-08-30 17:11 | ED ---
General Adult HPI - General Chief complaint: Shortness of Breath Stated complaint: CHF in a postoperative chest Time Seen by Provider: 08/30/18 16:18 Source: patient, RN notes reviewed Mode of arrival: wheelchair Limitations: no limitations - History of Present Illness Initial comments: 68-year-old female with a complicated medical history including COPD, diabetes, MA, hyperlipidemia, hypertension presents to the emergency department for a chief complaint shortness of breath 5 days. Patient states this feels like her asthma. She states she also has COPD but no longer smokes. Patient states she has also had a cough prior to this. Patient states laying flat makes this worse and sitting up makes this better. She states exertion also makes stress of breath worse. Patient denies chest pain but does admit to chest tightness. Patient was seen at [facility] and told her chest x-ray was abnormal and to come to the emergency department.Patient has no other complaints at this time including chest pain, abdominal pain, nausea or vomiting, headache, or visual changes. - Related Data Home Medications Medication Instructions Recorded Confirmed Aspirin 81 mg PO DAILY 12/17/14 08/30/18 Furosemide [Lasix] 20 mg PO DAILY 12/17/14 08/30/18 Insulin Lispro Protamin/Lispro 70 unit SQ AC-SUPPER 12/17/14 08/30/18 [humaLOG Mix 75-25 Kwikpen] Albuterol Inhaler [Ventolin Hfa 1 - 2 puff INHALATION RT-Q6H PRN 04/18/15 Inhaler] Budesonide-Formot 160-4.5 Mcg 2 puff INHALATION RT-BID 04/18/15 08/30/18 [Symbicort 160-4.5 Mcg Inhaler] Insulin Lispro Protamin/Lispro 60 unit SQ DAILY 04/18/15 08/30/18 [humaLOG Mix 75-25 Kwikpen] Atorvastatin [Lipitor] 80 mg PO HS 11/24/16 08/30/18 Insulin Glargine,Hum.rec.anlog 80 unit SQ HS 11/24/16 08/30/18 [Lantus Solostar] Ipratropium-Albuterol Nebulize 3 ml INHALATION RT-QID PRN 11/24/16 08/30/18 [Duoneb 0.5 mg-3 mg/3 ml Soln] Gabapentin [Neurontin] 300 mg PO DAILY 05/11/17 08/30/18 Metoprolol Succinate [Toprol XL] 50 mg PO DAILY 08/30/18 08/30/18 Tiotropium 18 Mcg/Puff [Spiriva] 1 cap INHALATION RT-DAILY 08/30/18 08/30/18 metFORMIN HCL [Glucophage] 850 mg PO TID 08/30/18 08/30/18 Previous Rx's Medication Instructions Recorded Clopidogrel [Plavix] 75 mg PO DAILY #30 tab 12/04/16 Azithromycin [Zithromax Z-pack] 250 mg PO DIRECTED #6 tab 08/30/18 predniSONE 50 mg PO DAILY #5 tablet 08/30/18 Allergies Allergy/AdvReac Type Severity Reaction Status Date / Time codeine Allergy Nausea & Verified 08/30/18 17:19 Vomiting Review of Systems ROS Statement: Those systems with pertinent positive or pertinent negative responses have been documented in the HPI. ROS Other: All systems not noted in ROS Statement are negative. Past Medical History Past Medical History: Asthma, Chest Pain / Angina, COPD, Diabetes Mellitus, Hyperlipidemia, Hypertension, Myocardial Infarction ([place]), Syncope Additional Past Medical History / Comment(s): NEBULIZER AT HOME, Last Myocardial Infarction Date:: 2010 History of Any Multi-Drug Resistant Organisms: None Reported Past Surgical History: Cholecystectomy, Coronary Bypass/CABG, Heart Catheterization With Stent Additional Past Surgical History / Comment(s): 1st stent in 2010, 3 more stents placed -about 2014, open heart surgery 2016. Past Anesthesia/Blood Transfusion Reactions: No Reported Reaction Additional Past Anesthesia/Blood Transfusion Reaction / Comment(s): Claustrophobic Date of Last Stent Placement:: 2014 Past Psychological History: No Psychological Hx Reported Smoking Status: Former smoker Past Alcohol Use History: None Reported Past Drug Use History: None Reported - Past Family History Father Family Medical History: Myocardial Infarction ([place]) Additional Family Medical History / Comment(s): STENT, OPEN HEART SURGERY Mother Additional Family Medical History / Comment(s): DEPRESSION General Exam Limitations: no limitations General appearance: alert, in no apparent distress Head exam: Present: atraumatic, normocephalic, normal inspection Eye exam: Present: normal appearance, PERRL, EOMI. Absent: scleral icterus, conjunctival injection, periorbital swelling ENT exam: Present: normal exam, mucous membranes moist Neck exam: Present: normal inspection, full ROM. Absent: tenderness, meningismus, lymphadenopathy Respiratory exam: Present: wheezes (expiratory wheeze noted). Absent: respiratory distress, rales, rhonchi, stridor Cardiovascular Exam: Present: regular rate, normal rhythm, normal heart sounds. Absent: systolic murmur, diastolic murmur, rubs, gallop, clicks GI/Abdominal exam: Present: soft, normal bowel sounds. Absent: distended, tenderness, guarding, rebound, rigid Neurological exam: Present: alert, oriented X3, CN II-XII intact Psychiatric exam: Present: normal affect, normal mood Course Vital Signs 08/30/18 08/30/18 08/30/18 16:00 17:39 18:34 Temperature 97.9 F Pulse Rate 65 60 Respiratory 22 20 Rate Blood Pressure 124/70 151/70 O2 Sat by Pulse 95 95 99 Oximetry 08/30/18 18:35 Temperature Pulse Rate 65 Respiratory 20 Rate Blood Pressure 178/72 O2 Sat by Pulse 97 Oximetry EKG Findings - EKG Comments: EKG Findings:: Normal sinus rhythm, ventricular rate 64, QTc 466, W[place] interval 218, no significant ST elevation or depression - EKG Results: EKG: interpreted by ERMJonatan (Dr trivedi) Medical Decision Making - Medical Decision Making 68-year-old female presents to the emergency department for a chief complaint of shortness of breath. Patient states she has had a cough for the past week. She states she also has had some wheezing. Patient states this feels like her asthma. She has minimal chest tightness no pain or radiating pain. Vitals within acceptable limits. Patient is not tachycardic. Patient is not postop despite triage notes. She had a minor procedure done 2 weeks ago for which lasted 20 minutes and she did not need any anesthesia. On exam patient does have wheezing noted in bilateral lung robert. CBC and CMP are unremarkable. Troponin within normal limits. This x-ray shows no active cardiopulmonary disease. Minimal pulmonary fibrotic changes. Patient likely has COPD/asthma exacerbation at this time. She will be given prednisone and a Z-Delmar. She will follow up with primary care in 1-2 days or to return if she has worsening symptoms. - Lab Data Result diagrams: 08/30/18 17:35 08/30/18 17:35 Lab Results 08/30/18 08/30/18 08/30/18 Range/Units 17:35 17:35 17:35 WBC 12.3 H (3.8-10.6) k/uL RBC 3.88 (3.80-5.40) m/uL Hgb 11.5 (11.4-16.0) gm/dL Hct 35.8 (34.0-46.0) % MCV 92.5 (80.0-100.0) fL MCH 29.7 (25.0-35.0) pg MCHC 32.1 (31.0-37.0) g/dL RDW 14.2 (11.5-15.5) % Plt Count 344 (150-450) k/uL Neutrophils % 78 % Lymphocytes % 13 % Monocytes % 4 % Eosinophils % 4 % Basophils % 1 % Neutrophils # 9.6 H (1.3-7.7) k/uL Lymphocytes # 1.6 (1.0-4.8) k/uL Monocytes # 0.6 (0-1.0) k/uL Eosinophils # 0.4 (0-0.7) k/uL Basophils # 0.1 (0-0.2) k/uL PT (9.0-12.0) sec INR (<1.2) APTT (22.0-30.0) sec Sodium 140 (137-145) mmol/L Potassium 4.7 (3.5-5.1) mmol/L Chloride 103 (98-107) mmol/L Carbon Dioxide 29 (22-30) mmol/L Anion Gap 8 mmol/L BUN 21 H (7-17) mg/dL Creatinine 0.88 (0.52-1.04) mg/dL Est GFR (CKD-EPI)AfAm 79 (>60 ml/min/1.73 sqM) Est GFR (CKD-EPI)NonAf 68 (>60 ml/min/1.73 sqM) Glucose 281 H (74-99) mg/dL Calcium 9.5 (8.4-10.2) mg/dL Magnesium 1.7 (1.6-2.3) mg/dL Total Bilirubin 1.0 (0.2-1.3) mg/dL AST 18 (14-36) U/L ALT 28 (9-52) U/L Alkaline Phosphatase 71 (38-126) U/L Total Creatine Kinase 106 (30-135) U/L CK-MB (CK-2) 2.1 (0.0-2.4) ng/mL CK-MB (CK-2) Rel Index 2.0 Troponin I 0.030 (0.000-0.034) ng/mL NT-Pro-B Natriuret Pep pg/mL Total Protein 6.3 (6.3-8.2) g/dL Albumin 3.4 L (3.5-5.0) g/dL 08/30/18 08/30/18 Range/Units 17:35 17:35 WBC (3.8-10.6) k/uL RBC (3.80-5.40) m/uL Hgb (11.4-16.0) gm/dL Hct (34.0-46.0) % MCV (80.0-100.0) fL MCH (25.0-35.0) pg MCHC (31.0-37.0) g/dL RDW (11.5-15.5) % Plt Count (150-450) k/uL Neutrophils % % Lymphocytes % % Monocytes % % Eosinophils % % Basophils % % Neutrophils # (1.3-7.7) k/uL Lymphocytes # (1.0-4.8) k/uL Monocytes # (0-1.0) k/uL Eosinophils # (0-0.7) k/uL Basophils # (0-0.2) k/uL PT 9.6 (9.0-12.0) sec INR 0.9 (<1.2) APTT 22.4 (22.0-30.0) sec Sodium (137-145) mmol/L Potassium (3.5-5.1) mmol/L Chloride (98-107) mmol/L Carbon Dioxide (22-30) mmol/L Anion Gap mmol/L BUN (7-17) mg/dL Creatinine (0.52-1.04) mg/dL Est GFR (CKD-EPI)AfAm (>60 ml/min/1.73 sqM) Est GFR (CKD-EPI)NonAf (>60 ml/min/1.73 sqM) Glucose (74-99) mg/dL Calcium (8.4-10.2) mg/dL Magnesium (1.6-2.3) mg/dL Total Bilirubin (0.2-1.3) mg/dL AST (14-36) U/L ALT (9-52) U/L Alkaline Phosphatase (38-126) U/L Total Creatine Kinase (30-135) U/L CK-MB (CK-2) (0.0-2.4) ng/mL CK-MB (CK-2) Rel Index Troponin I (0.000-0.034) ng/mL NT-Pro-B Natriuret Pep 598 pg/mL Total Protein (6.3-8.2) g/dL Albumin (3.5-5.0) g/dL - EKG Data -: EKG Interpreted by Me (and Dr trivedi) When compared to previous EKG there are: no significant change (compared 05/11/17 ) Disposition Clinical Impression: COPD exacerbation Disposition: HOME SELF-CARE Condition: Good Instructions: Asthma (ED), COPD (Chronic Obstructive Pulmonary Disease) (ED) Additional Instructions: Please take steroid and a Z-Delmar as directed. Use inhaler and nebulizer at home. Return if you have any worsening symptoms. Otherwise follow-up with your primary care provider in one to 2 days. Prescriptions: Azithromycin [Zithromax Z-pack] 250 mg PO DIRECTED #6 tab predniSONE 50 mg PO DAILY #5 tablet Is patient prescribed a controlled substance at d/c from ED?: No Referrals: Elvira Gonzales MD [Primary Care Provider] - 1-2 days Time of Disposition: 18:55
[2018-08-30 17:58] LABS: Basophils # (A) 0.1 k/uL (0-0.2); Basophils % (A) 1 %; Eosinophils # (A) 0.4 k/uL (0-0.7); Eosinophils % (A) 4 %; HCT 35.8 % (34.0-46.0); HGB 11.5 gm/dL (11.4-16.0); Lymphocytes # (A) 1.6 k/uL (1.0-4.8); Lymphocytes % (A) 13 %; MCH 29.7 pg (25.0-35.0); MCHC 32.1 g/dL (31.0-37.0); MCV 92.5 fL (80.0-100.0); Mean Platelet Volume 6.7; Monocytes # (A) 0.6 k/uL (0-1.0); Monocytes % (A) 4 %; Neutrophils # (A) 9.6 k/uL (1.3-7.7); Neutrophils % (A) 78 %; Platelet Count 344 k/uL (150-450); RBC 3.88 m/uL (3.80-5.40); RDW 14.2 % (11.5-15.5); WBC 12.3 k/uL (3.8-10.6)
--- NOTE | 2018-08-30 18:01 | XR ---
EXAMINATION TYPE: XR chest 2V DATE OF EXAM: 08/30/2018 COMPARISON: 06/06/2018 HISTORY: Short of breath TECHNIQUE: Frontal and lateral views of the chest are obtained. FINDINGS: There is no heart failure nor confluent pneumonic infiltrate. Costophrenic angles are aditya r. There are chest leads. Thoracic aorta is atheromatous. IMPRESSION: No active cardiopulmonary disease. Minimal pulmonary fibrotic changes. No change compare d to last exam.
[2018-08-30 18:06] LABS: INR 0.9 (<1.2); Partial Thromboplastin Time 22.4 sec (22.0-30.0); Prothrombin Time 9.6 sec (9.0-12.0)
[2018-08-30 18:09] LABS: Albumin 3.4 g/dL (3.5-5.0); Calcium 9.5 mg/dL (8.4-10.2); Magnesium 1.7 mg/dL (1.6-2.3); Potassium 4.7 mmol/L (3.5-5.1); Total Protein 6.3 g/dL (6.3-8.2)
[2018-08-30 18:31] LABS: Creatine Kinase MB 2.1 ng/mL (0.0-2.4); Troponin I 0.03 ng/mL (0.000-0.034)
[2018-08-30 18:38] VITALS: BP 178/72; PULSE 65; RESP 20
[2018-08-30] MEDS ORDERED: predniSONE 50 MG TAB PO STA (18:56)
[2018-08-30 19:23] VITALS: TEMP 98
== END 2018-08-30 19:22 | disposition home or self-care (01) ==
LOC: EC 15:46
DX: J44.1 Chronic obstructive pulmonary disease with (acute) exacerbation (principal); J84.10 Pulmonary fibrosis, unspecified; E78.5 Hyperlipidemia, unspecified; I10 Essential (primary) hypertension; E11.9 Type 2 diabetes mellitus without complications; I25.2 Old myocardial infarction; Z82.49 Family history of ischemic heart disease and other diseases of the circulatory system; Z87.891 Personal history of nicotine dependence; Z88.5 Allergy status to narcotic agent; Z79.4 Long term (current) use of insulin; Z79.51 Long term (current) use of inhaled steroids; Z79.82 Long term (current) use of aspirin; Z79.899 Other long term (current) drug therapy; Z95.1 Presence of aortocoronary bypass graft; Z95.5 Presence of coronary angioplasty implant and graft
CPT/HCPCS: 36415; 93005; 83880; 80053; 82550; 82553; 83735; 84484; 85025; 85610; 85730; 71046; 99285; J7512

== ENCOUNTER → 2019-02-12 | Outpatient (CLI) | payer MEDICARE ==
--- NOTE | 2019-02-12 14:43 | BD ---
EXAMINATION TYPE: Axial Bone Density DATE OF EXAM: 02/12/2019 COMPARISON: NONE CLINICAL HISTORY: Postmenopausal female Height: 5 FT 2 1/4 IN Weight: 232 FRAX RISK QUESTIONS: RISK FACTORS HISTORY OF: Postmenopausal woman: AGE 40'S Poor Health: YES MEDICATIONS: Additional Medications: ASTHMA MEDS,INHALER X 2 , Additional History: PT TAKES ALOT OF MEDS AND DOES NOT RECALL WHAT THEY ARE EXAM MEASUREMENTS: Bone mineral densitometry was performed using the [employer] System. Bone mineral density as measured about the Lumbar spine is: ----- L1-L4(G/cm2): 1.480 T Score Values are as follows: ----- L2: 1.5 ----- L3: 3.5 ----- L4: 3.4 ----- L1-L4: 2.5 BASELINE Bone mineral density about the R hip (g/cm2): 1.158 Bone mineral density about the L hip (g/cm2): 1.286 T Score values are as follows: -----R Neck: 0.9 -----L Neck: 1.8 -----R Total: 2.5 -----L Total: 2.7 BASELINE IMPRESSION: Normal (Values between +1 and -1 indicate normal bone mass). Consider repeating this study in 5 year s or sooner if there is some new clinical indication. NOTE: T-SCORE=SD OF THE YOUNG ADULT MEAN.
--- NOTE | 2019-02-17 14:19 | MM ---
Reason for exam: screening (asymptomatic). Last mammogram was performed 2 years and 6 months ago. History: Patient is postmenopausal. Benign left mammotome panel of the left breast, October 18, 2005. Physical Findings: A clinical breast exam by your physician is recommended on an annual basis and results should be correlated with mammographic findings. MG 3D Screening Mammo W/Cad Bilateral CC and MLO view(s) were taken. Prior study comparison: July 03, 2016, bilateral MG 3d screening mammo w/cad. July 24, 2014, bilateral MG screening mammo w CAD. There are scattered fibroglandular densities. Previous mammotome biopsy in the right and left breast. No significant changes when compared with prior studies. ASSESSMENT: Negative, BI-RAD 1 RECOMMENDATION: Routine screening mammogram of both breasts in 1 year.
== END | disposition home or self-care (01) ==
LOC: RADMAMWWP 12:24
PROVIDERS: ATTEND Family Medicine
DX: Z12.31 Encounter for screening mammogram for malignant neoplasm of breast (principal); Z13.820 Encounter for screening for osteoporosis
CPT/HCPCS: 77063; 77067; 77080

== ENCOUNTER 2019-08-30 14:03 | Inpatient (IN) | payer MEDICARE ==
[2019-08-30] MEDS ORDERED: IPRATROPIUM-ALBUTEROL 3 ML NEB INHALATION STA (14:45)
[2019-08-30] MEDS ORDERED: methylPREDNISolone SOD SUCCI 125 MG/2 ML VIAL IV STA (14:45)
--- NOTE | 2019-08-30 14:54 | ED ---
General Adult HPI - General Chief complaint: Shortness of Breath Stated complaint: DONALD Time Seen by Provider: 08/30/19 14:19 Source: patient, RN notes reviewed Mode of arrival: ambulatory Limitations: no limitations - History of Present Illness Initial comments: Patient is a pleasant 69-year-old female presenting to the emergency Department with complaints of difficulty breathing. Onset of symptoms was several days ago. Patient does have occasional dry cough. Patient questions if she may have had some fever. Symptoms are similar to previous COPD. Patient did see her doctor however was not given a steroid prescription that usually helps her. Patient states there is some minimal leg swelling. No calf pain. - Related Data Home Medications Medication Instructions Recorded Confirmed Aspirin 81 mg PO DAILY 12/17/14 09/03/18 Furosemide [Lasix] 20 mg PO DAILY 12/17/14 09/03/18 Insulin Lispro Protamin/Lispro 70 unit SQ AC-SUPPER 12/17/14 09/03/18 [humaLOG Mix 75-25 Kwikpen] Albuterol Inhaler [Ventolin Hfa 1 - 2 puff INHALATION RT-Q6H PRN 04/18/15 09/03/18 Inhaler] Budesonide-Formot 160-4.5 Mcg 2 puff INHALATION RT-BID 04/18/15 09/03/18 [Symbicort 160-4.5 Mcg Inhaler] Insulin Lispro Protamin/Lispro 60 unit SQ AC-BRKFST 04/18/15 09/03/18 [humaLOG Mix 75-25 Kwikpen] Atorvastatin [Lipitor] 80 mg PO HS 11/24/16 09/03/18 Ipratropium-Albuterol Nebulize 3 ml INHALATION RT-QID PRN 11/24/16 09/03/18 [Duoneb 0.5 mg-3 mg/3 ml Soln] Gabapentin [Neurontin] 300 mg PO DAILY 05/11/17 09/03/18 Metoprolol Succinate [Toprol XL] 50 mg PO DAILY 08/30/18 09/03/18 Tiotropium 18 Mcg/Puff [Spiriva] 1 cap INHALATION RT-DAILY 08/30/18 09/03/18 metFORMIN HCL [Glucophage] 850 mg PO TID 08/30/18 09/03/18 Previous Rx's Medication Instructions Recorded Clopidogrel [Plavix] 75 mg PO DAILY #30 tab 12/04/16 Azithromycin [Zithromax Z-pack] 250 mg PO DIRECTED #6 tab 08/30/18 predniSONE 50 mg PO DAILY #5 tablet 08/30/18 Allergies Allergy/AdvReac Type Severity Reaction Status Date / Time codeine Allergy Nausea & Verified 08/30/19 14:10 Vomiting Review of Systems ROS Statement: Those systems with pertinent positive or pertinent negative responses have been documented in the HPI. ROS Other: All systems not noted in ROS Statement are negative. Constitutional: Denies: fever Eyes: Denies: eye pain ENT: Denies: ear pain Respiratory: Reports: cough, dyspnea Cardiovascular: Denies: chest pain Gastrointestinal: Denies: abdominal pain Genitourinary: Denies: dysuria Musculoskeletal: Denies: back pain Skin: Denies: rash Neurological: Denies: weakness Past Medical History Past Medical History: Asthma, Chest Pain / Angina, COPD, Diabetes Mellitus, Hyperlipidemia, Hypertension, Myocardial Infarction ([place]), Syncope Additional Past Medical History / Comment(s): NEBULIZER AT HOME, Last Myocardial Infarction Date:: 2010 History of Any Multi-Drug Resistant Organisms: None Reported Past Surgical History: Cholecystectomy, Coronary Bypass/CABG, Heart Catheterization With Stent Additional Past Surgical History / Comment(s): 1st stent in 2010, 3 more stents placed -about 2014, open heart surgery 2016. Past Anesthesia/Blood Transfusion Reactions: No Reported Reaction Additional Past Anesthesia/Blood Transfusion Reaction / Comment(s): Claustrophobic Date of Last Stent Placement:: 2014 Past Psychological History: No Psychological Hx Reported Smoking Status: Former smoker Past Alcohol Use History: None Reported Past Drug Use History: None Reported - Past Family History Father Family Medical History: Myocardial Infarction ([place]) Additional Family Medical History / Comment(s): STENT, OPEN HEART SURGERY Mother Additional Family Medical History / Comment(s): DEPRESSION General Exam Limitations: no limitations General appearance: alert, in no apparent distress Head exam: Present: normocephalic Eye exam: Present: normal appearance, PERRL ENT exam: Present: normal oropharynx Respiratory exam: Present: wheezes, decreased breath sounds Cardiovascular Exam: Present: regular rate, normal rhythm GI/Abdominal exam: Present: soft. Absent: distended, tenderness Extremities exam: Present: normal inspection, pedal edema (Trace bilateral). Absent: calf tenderness Neurological exam: Present: alert Psychiatric exam: Present: normal affect, normal mood Skin exam: Present: normal color Course Vital Signs 08/30/19 08/30/19 08/30/19 14:07 14:34 15:07 Temperature 97.9 F Pulse Rate 79 73 72 Respiratory 22 16 Rate Blood Pressure 133/71 133/57 O2 Sat by Pulse 85 L 94 L Oximetry 08/30/19 15:24 Temperature Pulse Rate 74 Respiratory Rate Blood Pressure O2 Sat by Pulse Oximetry - Reevaluation(s) Reevaluation #1: 08/30/19 15:57 Patient does meet sepsis criteria diagnosed at 1557. Blood culture and lactic acid have been ordered. IV antibiotics will be ordered. EKG Findings - EKG Comments: EKG Findings:: Sinus rhythm at 76 with first-degree AV block. TN 212. QRS 128. QT 414. QTC 465. Left axis. The bundle-branch block. Nonspecific ST-T. Medical Decision Making - Medical Decision Making Patient reevaluated and sitting up in bed. Patient updated on results and plan. Case was discussed in detail with Dr. Palomo, who will admit, Dr. Zelaya. - Lab Data Result diagrams: 08/30/19 14:30 08/30/19 14:30 Lab Results 08/30/19 08/30/19 08/30/19 Range/Units 14:30 14:30 14:30 WBC 11.6 H (3.8-10.6) k/uL RBC 3.97 (3.80-5.40) m/uL Hgb 12.1 (11.4-16.0) gm/dL Hct 37.5 (34.0-46.0) % MCV 94.2 (80.0-100.0) fL MCH 30.3 (25.0-35.0) pg MCHC 32.2 (31.0-37.0) g/dL RDW 13.9 (11.5-15.5) % Plt Count 360 (150-450) k/uL Neutrophils % 80 % Lymphocytes % 12 % Monocytes % 5 % Eosinophils % 2 % Basophils % 0 % Neutrophils # 9.2 H (1.3-7.7) k/uL Lymphocytes # 1.3 (1.0-4.8) k/uL Monocytes # 0.6 (0-1.0) k/uL Eosinophils # 0.2 (0-0.7) k/uL Basophils # 0.1 (0-0.2) k/uL PT 9.6 (9.0-12.0) sec INR 0.9 (<1.2) APTT 22.6 (22.0-30.0) sec Sodium 140 (137-145) mmol/L Potassium 4.0 (3.5-5.1) mmol/L Chloride 103 (98-107) mmol/L Carbon Dioxide 29 (22-30) mmol/L Anion Gap 8 mmol/L BUN 12 (7-17) mg/dL Creatinine 0.72 (0.52-1.04) mg/dL Est GFR (CKD-EPI)AfAm >90 (>60 ml/min/1.73 sqM) Est GFR (CKD-EPI)NonAf 87 (>60 ml/min/1.73 sqM) Glucose 234 H (74-99) mg/dL Calcium 9.0 (8.4-10.2) mg/dL Total Bilirubin 0.9 (0.2-1.3) mg/dL AST 20 (14-36) U/L ALT 15 (4-34) U/L Alkaline Phosphatase 62 (38-126) U/L Total Protein 6.2 L (6.3-8.2) g/dL Albumin 3.3 L (3.5-5.0) g/dL - Radiology Data Radiology results: image reviewed (Chest x-ray shows mild cardiomegaly and some interstitial changes. Patchy opacity right base.) Critical Care Time Critical Care Time: Yes Total Critical Care Time: 31 Disposition Clinical Impression: Pneumonia, Sepsis Disposition: ADMITTED IP TO THIS HOSP Is patient prescribed a controlled substance at d/c from ED?: No Referrals: Elvira Gonzales MD [Primary Care Provider] - 1-2 days Decision Time: 15:58
[2019-08-30 15:11] LABS: Basophils # (A) 0.1 k/uL (0-0.2); Basophils % (A) 0 %; Eosinophils # (A) 0.2 k/uL (0-0.7); Eosinophils % (A) 2 %; HCT 37.5 % (34.0-46.0); HGB 12.1 gm/dL (11.4-16.0); Lymphocytes # (A) 1.3 k/uL (1.0-4.8); Lymphocytes % (A) 12 %; MCH 30.3 pg (25.0-35.0); MCHC 32.2 g/dL (31.0-37.0); MCV 94.2 fL (80.0-100.0); Mean Platelet Volume 7.1; Monocytes # (A) 0.6 k/uL (0-1.0); Monocytes % (A) 5 %; Neutrophils # (A) 9.2 k/uL (1.3-7.7); Neutrophils % (A) 80 %; Platelet Count 360 k/uL (150-450); RBC 3.97 m/uL (3.80-5.40); RDW 13.9 % (11.5-15.5); WBC 11.6 k/uL (3.8-10.6)
[2019-08-30 15:17] LABS: ALT 15 U/L (4-34); AST 20 U/L (14-36); African American GFR (CKD) >90 (>60 ml/min/1.73 sqM); Albumin 3.3 g/dL (3.5-5.0); Alkaline Phosphatase 62 U/L (38-126); Anion Gap 8 mmol/L; Blood Urea Nitrogen 12 mg/dL (7-17); Carbon Dioxide 29 mmol/L (22-30); Chloride 103 mmol/L (98-107); Glucose 234 mg/dL (74-99); Non-African American GFR(CKD) 87 (>60 ml/min/1.73 sqM); Sodium 140 mmol/L (137-145); Total Bilirubin 0.9 mg/dL (0.2-1.3); Total Protein 6.2 g/dL (6.3-8.2)
--- NOTE | 2019-08-30 15:17 | XR ---
EXAMINATION TYPE: XR chest 2V DATE OF EXAM: 08/30/2019 COMPARISON: 08/30/2018 HISTORY: 69 year-old female shortness of breath, difficulty breathing TECHNIQUE: PA and lateral views FINDINGS: Rightward patient rotation alters the normal cardiomediastinal contours. The heart is mildly enlarged . Median sternotomy wires. Diffuse interstitial densities. Some more focal patchy medial right basila r opacity. No pleural effusion. IMPRESSION: 1. Mild cardiomegaly and interstitial changes. Correlate to exclude mild pulmonary vascular congestio n. 2. More focal patchy atelectasis versus developing infiltrate at the medial right base.
[2019-08-30 15:24] LABS: INR 0.9 (<1.2); Partial Thromboplastin Time 22.6 sec (22.0-30.0); Prothrombin Time 9.6 sec (9.0-12.0)
[2019-08-30] MEDS ORDERED: AZITHROMYCIN 500 MG in SODIUM CHLORIDE 0.9% 250 ML IVPB STA (15:58)
[2019-08-30] MEDS ORDERED: PNEUMONIA PROTOCOL UTILIZED 1 EACH MISC PO PRN (15:58)
[2019-08-30] MEDS ORDERED: ACETAMINOPHEN TAB 325 MG TAB PO PRN (19:21)
[2019-08-30] MEDS: methylPREDNISolone SOD SUCCI 125 MG/2 ML VIAL IV SCH (19:29)
[2019-08-30] MEDS: SODIUM CHLORIDE 0.9% 1,000 ML IV SCH (19:30)
[2019-08-30] MEDS ORDERED: ALPRAZolam 0.25 MG TAB PO PRN (20:59)
[2019-08-30] MEDS ORDERED: INSULIN ASPART (NovoLOG) 100 UNIT/ML VIAL SQ SCH (21:00)
[2019-08-30] MEDS ORDERED: INSULIN DETEMIR (LEVEMIR) 100 UNIT/ML SYR SQ SCH (21:00)
[2019-08-30 21:23] LABS: Glucose,Whole Blood >600 mg/dL (75-99)
[2019-08-30] MEDS: IPRATROPIUM-ALBUTEROL 3 ML NEB INHALATION SCH ×2 (21:51→22:11)
[2019-08-30] MEDS: BUDESONIDE 1 MG/2 ML NEBU INHALATION SCH (22:11)
[2019-08-30] MEDS: FORMOTEROL FUMARATE 20 MCG/2 ML NEBU INHALATION SCH (22:11)
[2019-08-30] MEDS: ATORVASTATIN 80 MG TAB PO SCH (22:25)
[2019-08-30] MEDS: HEPARIN SODIUM,PORCINE 5,000 UNIT/ML 1 ML VIAL SQ SCH (22:25)
[2019-08-30] MEDS: NYSTATIN 100,000 UNIT/GM POWD 15 GM TOPICAL SCH (22:27)
[2019-08-30] MEDS: metFORMIN 850 MG TAB PO SCH (22:29)
[2019-08-30] MEDS: INSULIN REGULAR 100 UNIT in SODIUM CHLORIDE 0.9% 100 ML IV SCH (23:43)
--- NOTE | 2019-08-30 23:49 | HP ---
HISTORY AND PHYSICAL DATE OF SERVICE: 08/30/2019. CHIEF COMPLAINT: Shortness of breath and cough. HISTORY OF PRESENT ILLNESS: This 69-year-old woman with a past medical history of multiple medical problems including COPD, asthma, history of diabetes, hypertension, hyperlipidemia, myocardial infarction, CAD, CABG being followed by Dr. Gonzales in the outpatient setting was complaining of difficulty in breathing for the last several days. Because of lack of improvement, patient came to [facility] and was admitted for further evaluation and treatment. There is no history of fever, rigors or chills. No history of headache, loss of consciousness, seizures. White count is slightly elevated up to 11.6. The chest x-ray which was done in the ER which was reviewed personally by me showed evidence of possible pneumonia in the right lower lobe and the patient admitted to the hospital for further evaluation and treatment. There is no history of fever, rigors or chills. No history of headache, loss of consciousness, seizures. PAST MEDICAL HISTORY: History of COPD, asthma, history of diabetes, hypertension, history of myocardial infarction, history of nebulizer at home. MEDICATION: Home medications are: 1. Prednisone 50 mg daily. 2. Metformin 850 mg p.o. b.i.d. 3. Spiriva 1 puff daily. 4. Mycostatin. 5. Toprol-XL. 6. DuoNeb. 7. Humalog 60 units subcu at breakfast. 8. Lantus 8 units subcu q.h.s. 9. Neurontin 300 mg daily. 10.Lasix 20 mg. 11.Plavix. 12.Symbicort. 13.Z-Delmar. 14.Lipitor 80 mg. 15.Aspirin 81. 16.Albuterol p.r.n. ALLERGIES: CODEINE. FAMILY HISTORY: History of myocardial infarction, stent in her family. SOCIAL HISTORY: Previous history of smoking. No history of alcohol intake. REVIEW OF SYSTEMS: ENT: No diminished vision. No diminished hearing. CARDIOVASCULAR SYSTEM: As mentioned earlier. RESPIRATORY: As mentioned earlier. GI no nausea or vomiting. no dysuria or hematuria. Nervous system: No numbness or weakness. Allergy/IMMUNOLOGY: No asthma or hayfever. MUSCULOSKELETAL as mentioned earlier. HEMATOLOGY/ONCOLOGY: No history of anemia. ENDOCRINE: No history of diabetes or hypothyroidism. CONSTITUTIONAL: As mentioned earlier. DERMATOLOGY: Negative. RHEUMATOLOGY negative. PSYCHIATRY as mentioned earlier. PHYSICAL EXAM: Patient is alert, oriented x3. Pulse is 81. Blood pressure 140/70, respiration 20, temperature 99.1, pulse ox 94% on 3 L. Pulse ox 84 percent on room air on admission. HEENT: Conjunctivae normal. NECK: No JVD. CARDIOVASCULAR: S1, S2 muffled. RESPIRATIONS: Breath sounds diminished in the bases. A few bilateral scattered rhonchi and crackles. ABDOMEN: Soft, nontender. No mass palpable. LEGS no edema. No swelling. CENTRAL NERVOUS SYSTEM: No focal deficits. LABS: At this time, WBC 11.6, hemoglobin 12.1, glucose 234. ASSESSMENT: 1. Chronic obstructive pulmonary disease bronchial asthma, acute exacerbation with acute bilateral pneumonia, right more than the left, possibly gram-negative with acute hypoxic respiratory failure, present on admission. 2. Diabetes mellitus type 2 under control with hyperglycemia. 3. Hypertension. 4. Hyperlipidemia. 5. History of myocardial infarction. 6. History of syncope. 7. History of cholecystectomy. 8. History of Coronary artery disease, coronary artery bypass grafting/stent. 9. History of claustrophobia. 10.Remote history of nicotine dependence. RECOMMENDATIONS AND DISCUSSION: This 69-year-old woman who presented with multiple complex medical issues, at this time, I recommend to continue the current medications, symptomatic treatment. Otherwise, I would initiate intensive bronchodilator treatment, empiric antibiotics. Pulmonary consultation. Guarded prognosis because of multiple complex medical issues. Further recommendations to follow. A copy of this dictation being forwarded to Dr. Gonzales who is the primary physician. See orders for details. MMODL / IJN: [id number] /
[2019-08-31 00:19] LABS: Glucose,Whole Blood 588 mg/dL (75-99)
[2019-08-31] MEDS: methylPREDNISolone SOD SUCCI 125 MG/2 ML VIAL IV SCH ×5 (00:27→23:26)
[2019-08-31 00:47] LABS: Glucose,Whole Blood 583 mg/dL (75-99)
[2019-08-31 01:18] LABS: Glucose,Whole Blood 480 mg/dL (75-99)
[2019-08-31 01:47] LABS: Glucose,Whole Blood 440 mg/dL (75-99)
[2019-08-31 02:18] LABS: Glucose,Whole Blood 407 mg/dL (75-99)
[2019-08-31 02:47] LABS: Glucose,Whole Blood 398 mg/dL (75-99)
[2019-08-31] MEDS: INSULIN REGULAR 100 UNIT in SODIUM CHLORIDE 0.9% 100 ML IV SCH ×3 (02:54→21:41)
[2019-08-31 03:17] LABS: Glucose,Whole Blood 344 mg/dL (75-99)
[2019-08-31 03:51] LABS: Glucose,Whole Blood 284 mg/dL (75-99)
[2019-08-31 04:18] LABS: Glucose,Whole Blood 250 mg/dL (75-99)
[2019-08-31 04:52] LABS: Glucose,Whole Blood 251 mg/dL (75-99)
[2019-08-31 05:17] LABS: Glucose,Whole Blood 225 mg/dL (75-99)
[2019-08-31 07:09] LABS: Glucose,Whole Blood 235 mg/dL (75-99)
[2019-08-31] MEDS: FORMOTEROL FUMARATE 20 MCG/2 ML NEBU INHALATION SCH ×2 (07:25→20:55)
[2019-08-31] MEDS: IPRATROPIUM-ALBUTEROL 3 ML NEB INHALATION SCH ×4 (07:25→20:55)
[2019-08-31] MEDS: BUDESONIDE 1 MG/2 ML NEBU INHALATION SCH ×2 (07:25→20:55)
--- NOTE | 2019-08-31 07:26 | XR ---
EXAMINATION TYPE: XR chest 2V DATE OF EXAM: 08/31/2019 COMPARISON: 08/30/2019 HISTORY: 69-year-old female pneumonia TECHNIQUE: PA and lateral views FINDINGS: Continued cardiomegaly and interstitial changes. Patchy medial right basilar opacity is similar. No s izable effusion. IMPRESSION: Stable exam, possible CHF with mild pulmonary vascular congestion. Similar patchy atelectasis or infi ltrate at the medial right base.
[2019-08-31] MEDS ORDERED: INSULN ASP PRT/INSULIN ASPART 100 UNIT/ML 10 ML VIAL SQ SCH ×2 (07:30→17:30)
[2019-08-31 07:58] LABS: Basophils # (A) 0.1 k/uL (0-0.2); Basophils % (A) 0 %; Eosinophils % (A) 0 %; HCT 37.7 % (34.0-46.0); HGB 11.9 gm/dL (11.4-16.0); Hypochromasia Slight; Lymphocytes # (A) 0.9 k/uL (1.0-4.8); Lymphocytes % (A) 7 %; MCH 30.7 pg (25.0-35.0); MCHC 31.5 g/dL (31.0-37.0); MCV 97.6 fL (80.0-100.0); Mean Platelet Volume 7.5; Monocytes # (A) 0.4 k/uL (0-1.0); Monocytes % (A) 3 %; Neutrophils # (A) 12.2 k/uL (1.3-7.7); Neutrophils % (A) 90 %; Platelet Count 449 k/uL (150-450); RBC 3.87 m/uL (3.80-5.40); RDW 13.8 % (11.5-15.5); WBC 13.6 k/uL (3.8-10.6)
[2019-08-31 08:33] LABS: Calcium 8.8 mg/dL (8.4-10.2); Potassium 4.7 mmol/L (3.5-5.1)
[2019-08-31 09:10] LABS: Glucose,Whole Blood 366 mg/dL (75-99)
[2019-08-31] MEDS: HEPARIN SODIUM,PORCINE 5,000 UNIT/ML 1 ML VIAL SQ SCH ×2 (09:14→21:43)
[2019-08-31] MEDS: METOPROLOL SUCCINATE (ER) 50 MG TAB.ER.24H PO SCH (09:15)
[2019-08-31] MEDS: ASPIRIN 81 MG PO SCH (09:15)
[2019-08-31] MEDS: GABAPENTIN 300 MG CAP PO SCH (09:15)
[2019-08-31] MEDS: CLOPIDOGREL 75 MG TAB PO SCH (09:15)
[2019-08-31] MEDS: AZITHROMYCIN 500 MG TAB PO SCH (09:15)
[2019-08-31] MEDS: PANTOPRAZOLE 40 MG TABLET PO SCH (09:15)
[2019-08-31] MEDS: NYSTATIN 100,000 UNIT/GM POWD 15 GM TOPICAL SCH ×2 (09:16→21:44)
[2019-08-31] MEDS: metFORMIN 850 MG TAB PO SCH ×3 (09:16→21:43)
[2019-08-31 11:11] LABS: Glucose,Whole Blood 306 mg/dL (75-99)
[2019-08-31] MEDS: MULTIVITAMINS, THERA 1 EACH TAB PO SCH (12:28)
[2019-08-31 14:05] LABS: Glucose,Whole Blood 304 mg/dL (75-99)
--- NOTE | 2019-08-31 14:32 | CONS ---
CONSULTATION PULMONARY/CRITICAL CARE CONSULTATION: DATE OF SERVICE: 08/31/2019 This is a 69-year-old female who typically sees Dr. Gonzales as a primary. She apparently comes into the emergency room complaining of increasing shortness of breath. This has been going on for at least a week, maybe longer. She apparently went to Dr. Gonzales but apparently she was not taking care of for this problem. She did complain of her difficulty at that time. Her complaints include cough, wheezing, shortness of breath, chest tightness, chest congestion and phlegm production. She apparently was told in the emergency room that she had pneumonia. She also had some slight temperature elevation. The phlegm that she was coughing up was mostly white but sometimes a bit stevens. There was no blood in the phlegm. The patient states that she is feeling a bit better today than she did when she first came in on August 30. MEDICATIONS: Reviewed. She is on aspirin, Lasix, insulin, albuterol inhaler, Symbicort, Lipitor, updrafts with DuoNeb, gabapentin, metoprolol, Spiriva, metformin, Plavix, and recently was placed on Zithromax in the form of a Z-Delmar and prednisone by her primary doctor. ALLERGIES: CODEINE. PAST MEDICAL HISTORY: Positive for COPD/asthma. She also suffers from angina, diabetes mellitus, hyperlipidemia, hypertension, myocardial infarction, syncope. SURGICAL HISTORY: Includes cholecystectomy, bypass grafting, heart catheterization with stent, and some other minor procedures. SOCIAL HISTORY: Positive for previous tobacco use. Does not smoke currently. She does have a hard time quantitating her tobacco use. I would say about 35 or 40 years at least. She denies any alcohol or illicit drug use. FAMILY HISTORY: Positive for father with myocardial infarction, stent placement, and open-heart surgery. Mother has a history of depression. REVIEW OF SYSTEMS: CONSTITUTIONAL: Weakness, possible fever. NEUROLOGIC: Negative. HEENT: Negative. CARDIOVASCULAR: Negative. PULMONARY: Chest congestion, tightness, wheezing, cough, phlegm production. GI: Negative. : Negative. RHEUMATOLOGIC: Negative. IMMUNOLOGIC: Negative. ENDOCRINOLOGIC: Negative. DERMATOLOGIC: Negative. PHYSICAL EXAMINATION: Current vital signs are reviewed. Her temperature is 97.7, heart rate 88, respiratory rate 18, blood pressure 137/75, mean 95 and 3 L saturation 96%. ( ) bedside. She appears not have any acute respiratory distress. There is no conversational dyspnea, use of accessory muscles, or audible wheezing. HEENT examination is grossly unremarkable. Nasal O2 in place. NECK: Supple, full range of motion. No adenopathy or thyromegaly. Neck veins are flat. CARDIOVASCULAR examination reveals regular rhythm and rate. Heart rate 88 beats per minute. It is regular. Heart sounds are distant. LUNGS: Reveal coarse expiratory rhonchi and wheezes. Breath sounds are diminished. There are crackles at the bases. ABDOMEN: Obese. Bowel sounds are heard. EXTREMITIES are intact. No cyanosis, clubbing, or significant edema. SKIN: Without rash. NEUROLOGIC examination is brief but nonfocal. LABS: Reviewed. White count 13.6, hemoglobin 11.9, hematocrit 37.7, platelet count 449,000. Sodium 138, potassium 4.7, chloride 101, CO2 27, anion gap is 10. BUN and creatinine were 25 and 0.85 respectively. Calcium is normal. Influenza studies were negative. Chest x-ray shows some mild cardiomegaly and some mild interstitial changes as well as a possible patchy infiltrate, right base. Current medications are reviewed. The patient is on appropriate medications in the form of Zithromax Pulmicort, ceftriaxone, formoterol, updrafts with DuoNeb, and Solu- Medrol. ASSESSMENT: 1. Chronic obstructive pulmonary disease exacerbation complicated by pneumonia, right lower lobe, a bit improved. 2. Previous history of tobacco use. 3. History of angina. 4. History of diabetes mellitus. 5. Hyperlipidemia by history. 6. History of hypertension. 7. History of myocardial infarction. 8. History of syncope. 9. History of bypass grafting. PLAN: The patient is on appropriate medications. We will continue to follow. We recommend deep breathing, coughing, clearing of secretions. We will get her an incentive spirometer to help maintain normal lung functions and volume. No additional recommendations are made. She is currently on steroids, short-acting beta agonist, short-acting muscarinic antagonist, systemic corticosteroids, long-acting beta agonist and inhaled corticosteroid. Appropriate treatment is noted. We will continue to follow. She should improve. MMODL / IJN: [id number] /
[2019-08-31 15:36] LABS: Glucose,Whole Blood 314 mg/dL (75-99)
--- NOTE | 2019-08-31 16:44 | PN ---
PROGRESS NOTE DATE OF SERVICE: 08/31/2019 This 69-year-old woman is being followed by Dr. Gonzales in the outpatient setting, admitted with COPD acute exacerbation with possible bilateral pneumonia, right more than the left. The possibility of fluid overload is being considered. The patient was also being seen by Dr. Maciel. NT proBNP is around 900. A 2D echo with Doppler done in 2017 which I reviewed showed ejection fraction of 55% with mild LA dilatation. Patient is being closely monitored. PAST MEDICAL HISTORY: Reviewed. REVIEW OF SYSTEMS: CARDIOVASCULAR: No angina or palpitations. RESPIRATORY: As mentioned earlier. GI: As mentioned earlier. : No dysuria. NERVOUS SYSTEM: No numbness or weakness. CURRENT MEDICATIONS: 1. Tylenol p.r.n. 2. DuoNeb q.i.d. and p.r.n. 3. Xanax 0.25 t.i.d. 4. Aspirin 81 mg. 5. Lipitor 80 mg q.h.s. 6. Zithromax 500 mg. 7. Pulmicort 1 mg b.i.d. 9. Neurontin. 10.Heparin subcu. 11.Solu-Medrol 60 IV q.6 hours. 12.Multivitamins. 13.Protonix. Doses are reviewed. PHYSICAL EXAMINATION: The patient is alert, oriented x3. The pulse is 79, blood pressure 137/75, respiration 18, temperature 97.7, pulse ox 98% on 3 L. HEENT: Conjunctivae normal. Oral mucosa moist. NECK: No jugular venous distention. No lymph node enlargement. CARDIOVASCULAR: S1, S2. RESPIRATORY: Diminished breath sounds at the bases. Bilateral scattered rhonchi and crackles. ABDOMEN: Soft, nontender. No mass palpable. LEGS: No edema, no swelling. NERVOUS SYSTEM: No focal deficits. LABS: At this time show WBC 13.6, sodium 138, potassium 4.7, glucose 216, influenza negative. ASSESSMENT: 1. Chronic obstructive pulmonary disease and bronchial asthma acute exacerbation with acute bilateral pneumonia, right more than left. Possibly gram-negative, possible bronchopneumonia with acute hypoxic respiratory failure, present on admission. 2. Diabetes mellitus type 2, uncontrolled with hyperglycemia. 3. Hypertension. 4. Hyperlipidemia. 5. History of myocardial infarction. 6. Rule out congestive heart failure. 7. History of syncope. 8. History of cholecystectomy. 9. History of coronary artery disease, coronary artery bypass grafting, stent. 10.History of claustrophobia. 11.Remote history of nicotine dependence. RECOMMENDATIONS AND DISCUSSION: I recommend to continue current medication, continue to monitor, continue symptomatic treatment. Continue to optimize the bronchodilator treatment. Otherwise, at this time I recommend continue with broad-spectrum IV antibiotics. Continue the rest of medications. Resume the home medications. Guarded prognosis because of multiple complex medical issues. Further recommendations to follow. See orders for details. Monitor closely. MMODL / IJN: [id number] / MTDD
[2019-08-31 17:06] LABS: Glucose,Whole Blood 283 mg/dL (75-99)
[2019-08-31] MEDS: SODIUM CHLORIDE 0.9% 1,000 ML IV SCH (17:32)
[2019-08-31 19:09] LABS: Glucose,Whole Blood 359 mg/dL (75-99)
[2019-08-31 21:08] LABS: Glucose,Whole Blood 261 mg/dL (75-99)
[2019-08-31] MEDS: ATORVASTATIN 80 MG TAB PO SCH (21:43)
[2019-08-31 23:31] LABS: Glucose,Whole Blood 312 mg/dL (75-99)
[2019-09-01 00:58] LABS: Glucose,Whole Blood 263 mg/dL (75-99)
[2019-09-01 03:14] LABS: Glucose,Whole Blood 216 mg/dL (75-99)
[2019-09-01 05:07] LABS: Glucose,Whole Blood 187 mg/dL (75-99)
[2019-09-01] MEDS: IPRATROPIUM-ALBUTEROL 3 ML NEB INHALATION PRN ×2 (05:08→23:31)
[2019-09-01] MEDS: methylPREDNISolone SOD SUCCI 125 MG/2 ML VIAL IV SCH ×2 (05:21→11:29)
[2019-09-01 07:24] LABS: Glucose,Whole Blood 224 mg/dL (75-99)
[2019-09-01 07:44] LABS: Basophils % (A) 0 %; Eosinophils % (A) 0 %; HCT 36.9 % (34.0-46.0); HGB 11.5 gm/dL (11.4-16.0); Hypochromasia Slight; Lymphocytes # (A) 0.9 k/uL (1.0-4.8); Lymphocytes % (A) 5 %; MCH 30.2 pg (25.0-35.0); MCV 97.4 fL (80.0-100.0); Mean Platelet Volume 7.6; Monocytes # (A) 0.8 k/uL (0-1.0); Monocytes % (A) 4 %; Neutrophils # (A) 18.7 k/uL (1.3-7.7); Neutrophils % (A) 91 %; Platelet Count 360 k/uL (150-450); RBC 3.79 m/uL (3.80-5.40); RDW 13.8 % (11.5-15.5); WBC 20.6 k/uL (3.8-10.6)
[2019-09-01 07:58] LABS: Calcium 9.3 mg/dL (8.4-10.2); Potassium 5.4 mmol/L (3.5-5.1)
[2019-09-01] MEDS: ASPIRIN 81 MG PO SCH (09:03)
[2019-09-01] MEDS: GABAPENTIN 300 MG CAP PO SCH (09:03)
[2019-09-01] MEDS: HEPARIN SODIUM,PORCINE 5,000 UNIT/ML 1 ML VIAL SQ SCH ×2 (09:03→21:04)
[2019-09-01] MEDS: CLOPIDOGREL 75 MG TAB PO SCH (09:03)
[2019-09-01] MEDS: PANTOPRAZOLE 40 MG TABLET PO SCH (09:03)
[2019-09-01] MEDS: AZITHROMYCIN 500 MG TAB PO SCH (09:04)
[2019-09-01] MEDS: METOPROLOL SUCCINATE (ER) 50 MG TAB.ER.24H PO SCH (09:04)
[2019-09-01] MEDS: NYSTATIN 100,000 UNIT/GM POWD 15 GM TOPICAL SCH ×2 (09:04→19:23)
[2019-09-01] MEDS: metFORMIN 850 MG TAB PO SCH ×3 (09:04→21:05)
[2019-09-01 09:12] LABS: Glucose,Whole Blood 275 mg/dL (75-99)
[2019-09-01] MEDS: IPRATROPIUM-ALBUTEROL 3 ML NEB INHALATION SCH ×4 (09:22→19:33)
[2019-09-01] MEDS: BUDESONIDE 1 MG/2 ML NEBU INHALATION SCH ×2 (09:22→19:33)
[2019-09-01] MEDS: FORMOTEROL FUMARATE 20 MCG/2 ML NEBU INHALATION SCH ×2 (09:22→19:51)
[2019-09-01 09:50] LABS: Hemoglobin A1C 9.4 % (4.0-6.0)
[2019-09-01] MEDS: INSULIN REGULAR 100 UNIT in SODIUM CHLORIDE 0.9% 100 ML IV SCH ×2 (10:10→19:19)
[2019-09-01 11:10] LABS: Glucose,Whole Blood 307 mg/dL (75-99)
[2019-09-01] MEDS: MULTIVITAMINS, THERA 1 EACH TAB PO SCH (11:28)
[2019-09-01 13:29] LABS: Glucose,Whole Blood 319 mg/dL (75-99)
--- NOTE | 2019-09-01 14:01 | P.PN ---
Subjective Progress Note Date: 09/01/19 [id number] female patient is being seen in follow-up today. She was seen in consultation yesterday for worsening shortness of breath. She came in with increased cough and wheezing and dyspnea and chest tightness and congestion and sputum production. She was seen by my partner and she was diagnosed having an acute COPD exacerbation with a right lower lobe pneumonia. She is an ex-smoker. She is known to have diabetes and hypertension coronary artery disease and previous bypass surgery. Overall, she is feeling better compared to yesterday. No new complaints for now. She remains on DuoNeb nebulized treatments around the clock and she is on examination Rocephin and Zithromax and IV Solu-Medrol 60 mg every 6 hours. Objective - Vital Signs Vital signs: Vital Signs Temp 97.4 F L 09/01/19 07:00 Pulse 78 09/01/19 12:41 Resp 17 09/01/19 09:11 BP 166/67 09/01/19 07:00 Pulse Ox 96 09/01/19 07:00 Intake & Output 08/31/19 09/01/19 09/01/19 18:59 06:59 18:59 Intake Total 819.583 99.641 394.559 Balance 819.583 99.641 394.559 Intake: Intake, IV Titration 333.583 99.641 40.559 Amount Insulin Regular 100 unit 123.583 99.641 40.559 In Sodium Chloride 0.9% 100 ml @ Titrate IV .Q0M KAREN Rx#:[id number] Sodium Chloride 0.9% 1, 160 000 ml @ 20 mls/hr IV . Q24H KAREN Rx#:[id number] cefTRIAXone 1 gm In 50 Sodium Chloride 0.9% 50 ml @ 100 mls/hr IVPB Q24HR KAREN Rx#:[id number] Oral 486 354 Other: Voiding Method Toilet Bedside Commode Bedside Commode Bedside Commode Incontinent Incontinent Incontinent # Voids 3 1 - Exam Head exam was generally normal. There was no scleral icterus or corneal arcus. Mucous membranes were moist. Neck is short and supple and there is significant crowding of the posterior oropharynx. Lungs sounds are diminished bilaterally especially in the lung bases and there is some progression of the expiratory phase of breathing and scattered expiratory wheezes bilaterally. Heart sounds are regular, positive S1-S2 and his sternum stable clean and intact. No rubs or any significant murmurs appreciated. All of the chest tubes are in place. Abdomen is obese soft and the organs cannot be palpated accurately because of her morbid obesity. Extremities are within normal limits. No cyanosis or clubbing. Surgical wound sites are all dry clean and intact. Neurologically, the patient is awake and alert. - Labs CBC & Chem 7: 09/01/19 06:40 09/01/19 06:40 Labs: Abnormal Lab Results - Last 24 Hours (Table) 08/31/19 08/31/19 08/31/19 Range/Units 06:57 13:53 15:25 WBC (3.8-10.6) k/uL RBC (3.80-5.40) m/uL Neutrophils # (1.3-7.7) k/uL Lymphocytes # (1.0-4.8) k/uL Potassium (3.5-5.1) mmol/L BUN (7-17) mg/dL Creatinine (0.52-1.04) mg/dL Glucose (74-99) mg/dL POC Glucose (mg/dL) 304 H 314 H (75-99) mg/dL Hemoglobin A1c 9.4 H (4.0-6.0) % 08/31/19 08/31/19 08/31/19 Range/Units 16:55 18:57 20:57 WBC (3.8-10.6) k/uL RBC (3.80-5.40) m/uL Neutrophils # (1.3-7.7) k/uL Lymphocytes # (1.0-4.8) k/uL Potassium (3.5-5.1) mmol/L BUN (7-17) mg/dL Creatinine (0.52-1.04) mg/dL Glucose (74-99) mg/dL POC Glucose (mg/dL) 283 H 359 H 261 H (75-99) mg/dL Hemoglobin A1c (4.0-6.0) % 08/31/19 09/01/19 09/01/19 Range/Units 23:01 00:56 03:03 WBC (3.8-10.6) k/uL RBC (3.80-5.40) m/uL Neutrophils # (1.3-7.7) k/uL Lymphocytes # (1.0-4.8) k/uL Potassium (3.5-5.1) mmol/L BUN (7-17) mg/dL Creatinine (0.52-1.04) mg/dL Glucose (74-99) mg/dL POC Glucose (mg/dL) 312 H 263 H 216 H (75-99) mg/dL Hemoglobin A1c (4.0-6.0) % 09/01/19 09/01/19 09/01/19 Range/Units 04:55 06:40 06:40 WBC 20.6 H (3.8-10.6) k/uL RBC 3.79 L (3.80-5.40) m/uL Neutrophils # 18.7 H (1.3-7.7) k/uL Lymphocytes # 0.9 L (1.0-4.8) k/uL Potassium 5.4 H (3.5-5.1) mmol/L BUN 42 H (7-17) mg/dL Creatinine 1.11 H (0.52-1.04) mg/dL Glucose 208 H (74-99) mg/dL POC Glucose (mg/dL) 187 H (75-99) mg/dL Hemoglobin A1c (4.0-6.0) % 09/01/19 09/01/19 09/01/19 Range/Units 07:02 09:01 10:59 WBC (3.8-10.6) k/uL RBC (3.80-5.40) m/uL Neutrophils # (1.3-7.7) k/uL Lymphocytes # (1.0-4.8) k/uL Potassium (3.5-5.1) mmol/L BUN (7-17) mg/dL Creatinine (0.52-1.04) mg/dL Glucose (74-99) mg/dL POC Glucose (mg/dL) 224 H 275 H 307 H (75-99) mg/dL Hemoglobin A1c (4.0-6.0) % 09/01/19 Range/Units 13:18 WBC (3.8-10.6) k/uL RBC (3.80-5.40) m/uL Neutrophils # (1.3-7.7) k/uL Lymphocytes # (1.0-4.8) k/uL Potassium (3.5-5.1) mmol/L BUN (7-17) mg/dL Creatinine (0.52-1.04) mg/dL Glucose (74-99) mg/dL POC Glucose (mg/dL) 319 H (75-99) mg/dL Hemoglobin A1c (4.0-6.0) % Microbiology - Last 24 Hours (Table) 08/30/19 16:23 Blood Culture - Preliminary Blood No Growth after 24 hours Assessment and Plan Plan: 1 acute COPD exacerbation secondary to right lower lobe pneumonia. The patient has new infiltration of the right lung base currently on a combination of Rocephin and Zithromax. 2 multivessel coronary artery disease not abnormal to percutaneous revascularization/angioplasty/stenting. Patient is status post non-ST segment elevation myocardial infarction. The patient is status post three-vessel bypass surgery with WELCH to LAD 3 COPD moderate to severe with a baseline FEV1 of 53-54% of predicted. The patient is maintained on a combination of Spiriva and Symbicort on outpatient basis 3 morbid obesity 4 hypertension 6 hyperlipidemia 7 smoker the patient quit smoking approximately 10 years ago 8 diabetes mellitus with a component of steroid use hyperglycemia. The patient's blood sugar is above 300 and we're going to reduce the Solu Medrol dose as the patient is clinically improved.. Plan Continue the bronchodilators. Drop down the IV Solu Medrol to 40 mg every 12 hours. Continue Rocephin and Zithromax. Collect sputum Gram stain and culture. Rest of the medication will be kept unchanged. We'll continue to follow.
[2019-09-01 15:12] LABS: Glucose,Whole Blood 301 mg/dL (75-99)
[2019-09-01 17:10] LABS: Glucose,Whole Blood 213 mg/dL (75-99)
--- NOTE | 2019-09-01 19:11 | PN ---
PROGRESS NOTE DATE OF SERVICE: 09/01/2019 This 69-year-old woman being followed by Dr. Gonzales was admitted with COPD acute exacerbation as well as acute bilateral pneumonia. The patient being closely monitored. Patient also had acute respiratory failure on admission. The blood sugars have been monitored and 101 level. No chest pain. No palpitations. Dr. Monique is also following the patient closely. EXAM: Alert and oriented x3. The pulse is 75. Blood pressure is 160/67, respiration 17, temperature 97.4, pulse ox 98% on 2 L. HEENT is conjunctivae normal. NECK: No JVD. CARDIOVASCULAR: S1, S2 muffled. RESPIRATORY: Breath sounds diminished in the bases. Bilateral scattered rhonchi and crackles. Expiratory wheezing also present. ABDOMEN: Soft, nontender. LEGS are no edema, no swelling. CENTRAL NERVOUS SYSTEM: No focal deficits. LAB STUDIES: WBC 20.7, hemoglobin 11.4. Sodium 130, potassium 5.4, creatinine is 1.11. ASSESSMENT: 1. Chronic obstructive pulmonary disease acute exacerbation as well as bronchial asthma acute exacerbation with acute bilateral pneumonia, right more than the left possibly gram-negative, possible bronchopneumonia with acute hypoxic respiratory failure, present on admission. 2. Diabetes type 2, uncontrolled with hyperglycemia. 3. Hypertension. 4. Hyperlipidemia. 5. History of myocardial infarction. 6. History of congestive heart failure. 7. History of syncope. 8. History of cholecystectomy. 9. History of coronary artery disease, coronary artery bypass grafting stent. 10.History of claustrophobia. 11.Remote history of nicotine dependence. RECOMMENDATIONS AND DISCUSSION: Recommend to continue current medications, continue to monitor and symptomatic treatment. Otherwise, at this time, I recommend continue with the current medications. Continue with bronchodilators continue with empiric antibiotics. Otherwise, IV steroids have been tapered. Guarded prognosis because of multiple complex medical issues. Further recommendations to follow. MMODL / IJN: [id number] / MTDD
[2019-09-01] MEDS: SODIUM CHLORIDE 0.9% 1,000 ML IV SCH (19:23)
[2019-09-01 19:27] LABS: Glucose,Whole Blood 263 mg/dL (75-99)
[2019-09-01] MEDS: methylPREDNISolone SOD SUCCI 40 MG/ML 1 ML VIAL IV SCH (21:04)
[2019-09-01] MEDS: ATORVASTATIN 80 MG TAB PO SCH (21:05)
[2019-09-01 21:27] LABS: Glucose,Whole Blood 213 mg/dL (75-99)
[2019-09-01 23:15] LABS: Glucose,Whole Blood 242 mg/dL (75-99)
[2019-09-02 01:17] LABS: Glucose,Whole Blood 242 mg/dL (75-99)
[2019-09-02 03:29] LABS: Glucose,Whole Blood 187 mg/dL (75-99)
[2019-09-02] MEDS: IPRATROPIUM-ALBUTEROL 3 ML NEB INHALATION PRN (04:06)
[2019-09-02 05:12] LABS: Glucose,Whole Blood 183 mg/dL (75-99)
[2019-09-02 07:12] LABS: Glucose,Whole Blood 202 mg/dL (75-99)
[2019-09-02] MEDS: IPRATROPIUM-ALBUTEROL 3 ML NEB INHALATION SCH ×4 (07:27→21:08)
[2019-09-02] MEDS: FORMOTEROL FUMARATE 20 MCG/2 ML NEBU INHALATION SCH ×2 (07:27→21:08)
[2019-09-02] MEDS: BUDESONIDE 1 MG/2 ML NEBU INHALATION SCH ×2 (07:27→21:08)
[2019-09-02] MEDS: PANTOPRAZOLE 40 MG TABLET PO SCH (07:48)
[2019-09-02] MEDS: ASPIRIN 81 MG PO SCH (07:49)
[2019-09-02] MEDS: AZITHROMYCIN 500 MG TAB PO SCH (07:50)
[2019-09-02] MEDS: CLOPIDOGREL 75 MG TAB PO SCH (07:52)
[2019-09-02] MEDS: metFORMIN 850 MG TAB PO SCH ×3 (07:53→22:09)
[2019-09-02] MEDS: GABAPENTIN 300 MG CAP PO SCH (07:53)
[2019-09-02] MEDS: HEPARIN SODIUM,PORCINE 5,000 UNIT/ML 1 ML VIAL SQ SCH ×2 (07:53→20:24)
[2019-09-02] MEDS: methylPREDNISolone SOD SUCCI 40 MG/ML 1 ML VIAL IV SCH (07:54)
[2019-09-02] MEDS: METOPROLOL SUCCINATE (ER) 50 MG TAB.ER.24H PO SCH (07:54)
[2019-09-02] MEDS: NYSTATIN 100,000 UNIT/GM POWD 15 GM TOPICAL SCH ×2 (07:55→20:25)
[2019-09-02 07:57] LABS: Basophils # (A) 0.3 k/uL (0-0.2); Basophils % (A) 2 %; Eosinophils % (A) 0 %; HCT 37.9 % (34.0-46.0); HGB 11.5 gm/dL (11.4-16.0); Hypochromasia Moderate; Lymphocytes # (A) 0.6 k/uL (1.0-4.8); Lymphocytes % (A) 3 %; MCH 30.3 pg (25.0-35.0); MCHC 30.3 g/dL (31.0-37.0); MCV 99.9 fL (80.0-100.0); Mean Platelet Volume 7.6; Monocytes % (A) 5 %; Neutrophils % (A) 90 %; Platelet Count 445 k/uL (150-450); RBC 3.79 m/uL (3.80-5.40); RDW 13.9 % (11.5-15.5)
[2019-09-02 08:11] LABS: Calcium 9.2 mg/dL (8.4-10.2)
[2019-09-02 08:18] LABS: Potassium 6.2 mmol/L (3.5-5.1)
[2019-09-02] MEDS ORDERED: SODIUM POLYSTYRENE SULFONATE 15 GM/60 ML BOTTLE PO STA (08:42)
[2019-09-02 09:38] LABS: Glucose,Whole Blood 263 mg/dL (75-99)
--- NOTE | 2019-09-02 10:30 | P.PN ---
Subjective Progress Note Date: 09/02/19 [id number] female patient is being seen in follow-up today. She was seen in consultation yesterday for worsening shortness of breath. She came in with increased cough and wheezing and dyspnea and chest tightness and congestion and sputum production. She was seen by my partner and she was diagnosed having an acute COPD exacerbation with a right lower lobe pneumonia. She is an ex-smoker. She is known to have diabetes and hypertension coronary artery disease and previous bypass surgery. Overall, she is feeling better compared to yesterday. No new complaints for now. She remains on DuoNeb nebulized treatments around the clock and she is on examination Rocephin and Zithromax and IV Solu-Medrol 60 mg every 6 hours. On 09/02/2019 the patient is feeling essentially the same, probably somewhat better compared to yesterday. Overnight she had to be placed on nitroglycerin drip for blood sugar control. She is running at 6 units an hour for now. She is on IV Solu-Medrol patient on examination Rocephin and Zithromax. Acute COPD exacerbation is improving. Note that she had a limited right lower lobe pulmonary infiltrate. He is known to be diabetic in addition to coronary artery disease and previous bypass surgery. No major swelling in lower extremities. No nausea. No vomiting. No diarrhea. No abdominal pain. No other complaints otherwise. Objective - Vital Signs Vital signs: Vital Signs Temp 98.1 F 09/02/19 07:00 Pulse 74 09/02/19 07:49 Resp 18 09/02/19 07:35 BP 144/84 09/02/19 07:00 Pulse Ox 94 L 09/02/19 07:00 Intake & Output 09/01/19 09/02/19 09/02/19 18:59 06:59 18:59 Intake Total 518.726 87.304 13.635 Output Total 250 Balance 518.726 -162.696 13.635 Intake: Intake, IV Titration 164.726 87.304 13.635 Amount Insulin Regular 100 unit 114.726 87.304 13.635 In Sodium Chloride 0.9% 100 ml @ Titrate IV .Q0M KAREN Rx#:[id number] cefTRIAXone 1 gm In 50 Sodium Chloride 0.9% 50 ml @ 100 mls/hr IVPB Q24HR KAREN Rx#:[id number] Oral 354 Output: Urine 250 Other: Voiding Method Bedside Commode Bedside Commode Bedside Commode Incontinent Incontinent Incontinent # Voids 3 - Exam Head exam was generally normal. There was no scleral icterus or corneal arcus. Mucous membranes were moist. Neck is short and supple and there is significant crowding of the posterior oropharynx. Lungs sounds are diminished bilaterally especially in the lung bases and there is some progression of the expiratory phase of breathing and scattered expiratory wheezes bilaterally. Heart sounds are regular, positive S1-S2 and his sternum stable clean and intact. No rubs or any significant murmurs appreciated. All of the chest tubes are in place. Abdomen is obese soft and the organs cannot be palpated accurately because of her morbid obesity. Extremities are within normal limits. No cyanosis or clubbing. Surgical wound sites are all dry clean and intact. Neurologically, the patient is awake and alert. - Labs CBC & Chem 7: 09/02/19 06:47 09/02/19 06:47 Labs: Abnormal Lab Results - Last 24 Hours (Table) 09/01/19 09/01/19 09/01/19 Range/Units 10:59 13:18 15:01 WBC (3.8-10.6) k/uL RBC (3.80-5.40) m/uL MCHC (31.0-37.0) g/dL Neutrophils # (1.3-7.7) k/uL Lymphocytes # (1.0-4.8) k/uL Basophils # (0-0.2) k/uL Potassium (3.5-5.1) mmol/L BUN (7-17) mg/dL Creatinine (0.52-1.04) mg/dL Glucose (74-99) mg/dL POC Glucose (mg/dL) 307 H 319 H 301 H (75-99) mg/dL 09/01/19 09/01/19 09/01/19 Range/Units 16:57 19:15 21:15 WBC (3.8-10.6) k/uL RBC (3.80-5.40) m/uL MCHC (31.0-37.0) g/dL Neutrophils # (1.3-7.7) k/uL Lymphocytes # (1.0-4.8) k/uL Basophils # (0-0.2) k/uL Potassium (3.5-5.1) mmol/L BUN (7-17) mg/dL Creatinine (0.52-1.04) mg/dL Glucose (74-99) mg/dL POC Glucose (mg/dL) 213 H 263 H 213 H (75-99) mg/dL 09/01/19 09/02/19 09/02/19 Range/Units 23:02 01:05 03:18 WBC (3.8-10.6) k/uL RBC (3.80-5.40) m/uL MCHC (31.0-37.0) g/dL Neutrophils # (1.3-7.7) k/uL Lymphocytes # (1.0-4.8) k/uL Basophils # (0-0.2) k/uL Potassium (3.5-5.1) mmol/L BUN (7-17) mg/dL Creatinine (0.52-1.04) mg/dL Glucose (74-99) mg/dL POC Glucose (mg/dL) 242 H 242 H 187 H (75-99) mg/dL 09/02/19 09/02/19 09/02/19 Range/Units 05:00 06:47 06:47 WBC 20.0 H (3.8-10.6) k/uL RBC 3.79 L (3.80-5.40) m/uL MCHC 30.3 L (31.0-37.0) g/dL Neutrophils # 18.0 H (1.3-7.7) k/uL Lymphocytes # 0.6 L (1.0-4.8) k/uL Basophils # 0.3 H (0-0.2) k/uL Potassium 6.2 H* (3.5-5.1) mmol/L BUN 47 H (7-17) mg/dL Creatinine 1.13 H (0.52-1.04) mg/dL Glucose 201 H (74-99) mg/dL POC Glucose (mg/dL) 183 H (75-99) mg/dL 09/02/19 09/02/19 Range/Units 07:01 09:27 WBC (3.8-10.6) k/uL RBC (3.80-5.40) m/uL MCHC (31.0-37.0) g/dL Neutrophils # (1.3-7.7) k/uL Lymphocytes # (1.0-4.8) k/uL Basophils # (0-0.2) k/uL Potassium (3.5-5.1) mmol/L BUN (7-17) mg/dL Creatinine (0.52-1.04) mg/dL Glucose (74-99) mg/dL POC Glucose (mg/dL) 202 H 263 H (75-99) mg/dL Microbiology - Last 24 Hours (Table) 08/30/19 16:23 Blood Culture - Preliminary Blood No Growth after 48 hours Assessment and Plan Plan: 1 acute COPD exacerbation secondary to right lower lobe pneumonia. The patient has new infiltration of the right lung base currently on a combination of Rocephin and Zithromax. 2 multivessel coronary artery disease not abnormal to percutaneous revascularization/angioplasty/stenting. Patient is status post non-ST segment elevation myocardial infarction. The patient is status post three-vessel bypass surgery with WELCH to LAD 3 COPD moderate to severe with a baseline FEV1 of 53-54% of predicted. The patient is maintained on a combination of Spiriva and Symbicort on outpatient basis 3 morbid obesity 4 hypertension 6 hyperlipidemia 7 smoker the patient quit smoking approximately 10 years ago 8 diabetes mellitus with a component of steroid use hyperglycemia. The patient's blood sugar is above 300 and we're going to reduce the Solu Medrol dose as the patient is clinically improved.. Plan Continue the bronchodilators. Drop down the IV Solu Medrol to 40 mg every 12 hours. Continue Rocephin and Zithromax. Collect sputum Gram stain and culture. Patient is currently on insulin drip for blood sugar control. Blood sugars remain elevated and will going to discontinue the Solu-Medrol and put the patient on prednisone burst taper. No major bronchospasm wheezing on today's evaluation. She is feeling slightly better. Her COPD exacerbation improving. Continue Rocephin and Zithromax and repeat chest x-ray in the morning and will continue to follow. Keep the insulin drip for blood sugar control currently at 6 units an hour.
[2019-09-02 11:04] LABS: Glucose,Whole Blood 304 mg/dL (75-99)
--- NOTE | 2019-09-02 12:04 | CDI ---
Documentation Clarification Form Date: 09/02/2019 11:54:03 AM From: Breanna Moe CCS, CCDS Admit Date: 08/30/2019 04:05:00 PM Patient Name: Nancy Shah Visit Number: [id number] Discharge Date: ATTENTION: The Clinical Documentation Specialists (CDI) and [facility] Coding Staff appreciate your assistance in clarifying documentation. Please respond to the clarification below the line at the bottom and electronically sign. The CDI & [facility] Coding staff will review the response and follow-up if needed. Please note: Queries are made part of the Legal Health Record. If you have any questions, please contact the author of this message via ITS. Dr. Irwin Arredondo: Per the History & Physical, asthma is included in the following without further specificity: "Chronic obstructive pulmonary disease bronchial asthma, acute exacerbation with acute bilateral pneumonia, right more than the left, possibly gram-negative with acute hypoxic respiratory failure, present on admission." History/risk factors: Asthma, COPD (uses home nebulizer) DM, Hypertension, Hyperlipidemia, VA, CAD, CABG, coronary stents. Clinical Indicators: Presented with SOB, cough, wheezing, chest tightness. Diagnosed as above. Failed outpatient: steroid prescription. Radiology: CXR: Mild cardiomegaly & interstitial changes. Correlate to exclude mild pulmonary vascular congestion. More focal patchy atelectasis versus developing infiltrate at the medial right base. Vital Signs: PO 85 RA - 94 2Lnc Treatment: INH Albuterol, IV Solumedrol, IV Azithromycin, IV Rocephin, IV fluid rate 20, Heparin sq, IV Insulin, O2 2Lnc In your professional opinion, can you please further specify the following, if known? Severity Mild intermittent Mild persistent Moderate persistent Severe persistent Other, please specify ____ Unable to determine Form or Type Cough variant Childhood Exercise induced bronchospasm Extrinsic allergic Idiosyncratic Intrinsic nonallergic Late-onset Mixed Other, please specify____ Unable to determine (Last Revision: November 2017) Unable to determine MTDD
[2019-09-02] MEDS: MULTIVITAMINS, THERA 1 EACH TAB PO SCH (12:59)
[2019-09-02] MEDS: predniSONE 20 MG TAB PO SCH (12:59)
[2019-09-02 15:39] LABS: Potassium 6.2 mmol/L (3.5-5.1)
[2019-09-02 15:50] VITALS: BMI 40.7
[2019-09-02] MEDS ORDERED: SODIUM POLYSTYRENE SULFONATE 15 GM/60 ML BOTTLE PO ONE (16:15)
[2019-09-02] MEDS ORDERED: DEXTROSE 10 % IN WATER 250 ML IV ONE (16:15)
[2019-09-02] MEDS ORDERED: INSULIN REGULAR 100 UNIT/ML VIAL IV ONE ×2 (16:15→20:33)
[2019-09-02 16:26] VITALS: RESP 18
[2019-09-02] MEDS ORDERED: SODIUM BICARB 8.4% 50 ML SYR (1 MEQ/ML) IV ONE (16:36)
[2019-09-02 16:50] LABS: Glucose,Whole Blood 459 mg/dL (75-99)
[2019-09-02] MEDS ORDERED: DEXTROSE 5% IN WATER 1,000 ML with SODIUM BICARB (1 MEQ/ML) 150 ML IV ONE (17:00)
[2019-09-02] MEDS: SODIUM CHLORIDE 0.9% 1,000 ML IV SCH (17:08)
[2019-09-02] MEDS ORDERED: INSULN ASP PRT/INSULIN ASPART 100 UNIT/ML 10 ML VIAL SQ SCH (17:30)
--- NOTE | 2019-09-02 17:57 | PN ---
PROGRESS NOTE DATE OF SERVICE: 09/02/2019 This 69-year-old woman who was admitted with COPD, acute exacerbation, as well as bronchial asthma, acute exacerbation, is being closely monitored at this time. The patient has some significantly increased shortness of breath today. The potassium was 6.2 today. The patient is being closely monitored. Past medical history reviewed. REVIEW OF SYSTEMS: CARDIOVASCULAR SYSTEM: No angina, palpitations. RESPIRATORY SYSTEM: As mentioned earlier. GI: As mentioned earlier. : No dysuria, retention. NERVOUS SYSTEM: No numbness or weakness. CURRENT MEDICATIONS: Current medications are reviewed and include: 1. Tylenol p.r.n. 2. DuoNeb q.i.d. and p.r.n. 3. Xanax 0.25 t.i.d. 4. Aspirin 81 mg. 5. Lipitor 80 mg. 6. Zithromax 500 mg p.o. daily. 7. Pulmicort 1 mg daily. 8. Rocephin 1 gram daily. 9. Plavix 75 mg p.o. daily. 10.Perforomist 20 mcg b.i.d. 11.Neurontin 300 mg p.o. daily. 12.Heparin 5000 units subcutaneously b.i.d. 13.NovoLog Mix 70/30, 70 units subcutaneously with supper, 60 units with breakfast. 14.Levemir 80 units subcutaneously at bedtime. 15.Glucophage 850 mg p.o. t.i.d. 16.Toprol XL. 17.Multivitamins. 18.Mycostatin. 19.Protonix 40 mg daily. 20.Prednisone taper. 21.IV fluids. PHYSICAL EXAMINATION: The patient is alert and oriented x3. The pulse is 72. Blood pressure is 144/84, respirations 18, temperature 98.1, pulse ox 94% on 2 L. HEENT: Conjunctivae normal. NECK: No JVD. CARDIOVASCULAR: S1, S2 muffled. RESPIRATORY: Breath sounds diminished in the bases. Bilateral scattered rhonchi and crackles. Expiratory wheezing also present. ABDOMEN: Soft, obese, nontender. No mass palpable. LEGS: No edema. No swelling. CENTRAL NERVOUS SYSTEM: No focal deficits. LAB STUDIES: WBC 20, hemoglobin 11.5. Sodium 139, potassium 6.2. Creatinine is 1.13, glucose 304. ASSESSMENT: 1. Chronic obstructive pulmonary disease, acute exacerbation, as well as bronchial asthma, acute exacerbation, with acute bilateral pneumonia, right more than the left, with possible Gram-negative, possible bronchopneumonia with acute hypoxic respiratory failure, present on admission. 2. Acute hyperkalemia. 3. Diabetes mellitus, type 2, uncontrolled with hyperglycemia. 4. Hypertension. 5. Hyperlipidemia. 6. History of myocardial infarction. 7. History of congestive heart failure; ejection fraction unknown. 8. History of syncope. 9. History of cholecystectomy. 10.History of coronary artery disease, coronary artery bypass grafting and stent. 11.History of claustrophobia. 12.Remote history of nicotine dependence. RECOMMENDATIONS AND DISCUSSION: I recommend to continue current medications, continue with the monitoring, symptomatic treatment. Otherwise at this time I would recommend repeat electrolytes, and if potassium is elevated, I would definitely recommend Kayexalate and insulin/glucose regimen. Otherwise, I would recommend a low-potassium diet and monitor sugars closely. Guarded prognosis because of multiple complex medical issues. Steroids have been tapered. Closely follow with the primary. Repeat chest x-ray has been ordered. Further recommendations to follow. MMODL / IJN: [id number] / RIGOBERTO
[2019-09-02 20:06] LABS: Glucose,Whole Blood 437 mg/dL (75-99)
[2019-09-02] MEDS: ATORVASTATIN 80 MG TAB PO SCH (20:24)
[2019-09-02] MEDS ORDERED: INSULIN DETEMIR (LEVEMIR) 100 UNIT/ML SYR SQ SCH (21:00)
[2019-09-02] MEDS: hydrALAZINE HCL 20 MG/ML 1 ML VIAL IVP PRN (21:12)
[2019-09-02 22:09] LABS: Glucose,Whole Blood 344 mg/dL (75-99)
[2019-09-03 01:58] LABS: Glucose,Whole Blood 223 mg/dL (75-99)
[2019-09-03] MEDS ORDERED: INSULIN ASPART (NovoLOG) 100 UNIT/ML VIAL SQ ONE (02:00)
[2019-09-03] MEDS: hydrALAZINE HCL 20 MG/ML 1 ML VIAL IVP PRN (02:16)
[2019-09-03] MEDS: IPRATROPIUM-ALBUTEROL 3 ML NEB INHALATION PRN (03:02)
[2019-09-03 07:19] LABS: Glucose,Whole Blood 149 mg/dL (75-99)
[2019-09-03] MEDS ORDERED: INSULN ASP PRT/INSULIN ASPART 100 UNIT/ML 10 ML VIAL SQ SCH (07:30)
[2019-09-03 08:24] LABS: Basophils # (A) 0.2 k/uL (0-0.2); Basophils % (A) 1 %; Eosinophils % (A) 0 %; HCT 39.4 % (34.0-46.0); Hypochromasia Slight; Lymphocytes # (A) 1.3 k/uL (1.0-4.8); Lymphocytes % (A) 7 %; MCH 29.8 pg (25.0-35.0); MCHC 30.5 g/dL (31.0-37.0); MCV 97.5 fL (80.0-100.0); Mean Platelet Volume 7.3; Monocytes # (A) 1.3 k/uL (0-1.0); Monocytes % (A) 7 %; Neutrophils % (A) 84 %; Platelet Count 437 k/uL (150-450); RBC 4.04 m/uL (3.80-5.40); RDW 13.9 % (11.5-15.5)
[2019-09-03 08:46] LABS: Calcium 9.1 mg/dL (8.4-10.2); Potassium 4.6 mmol/L (3.5-5.1)
[2019-09-03] MEDS: IPRATROPIUM-ALBUTEROL 3 ML NEB INHALATION SCH ×3 (08:50→16:16)
[2019-09-03] MEDS: BUDESONIDE 1 MG/2 ML NEBU INHALATION SCH (08:50)
[2019-09-03] MEDS: FORMOTEROL FUMARATE 20 MCG/2 ML NEBU INHALATION SCH (08:50)
[2019-09-03] MEDS: CLOPIDOGREL 75 MG TAB PO SCH (09:04)
[2019-09-03] MEDS: PANTOPRAZOLE 40 MG TABLET PO SCH (09:04)
[2019-09-03] MEDS: metFORMIN 850 MG TAB PO SCH (09:04)
[2019-09-03] MEDS: ASPIRIN 81 MG PO SCH (09:04)
[2019-09-03] MEDS: predniSONE 20 MG TAB PO SCH (09:05)
[2019-09-03] MEDS: HEPARIN SODIUM,PORCINE 5,000 UNIT/ML 1 ML VIAL SQ SCH (09:05)
[2019-09-03] MEDS: AZITHROMYCIN 500 MG TAB PO SCH (09:05)
[2019-09-03] MEDS: MULTIVITAMINS, THERA 1 EACH TAB PO SCH (09:05)
[2019-09-03] MEDS: METOPROLOL SUCCINATE (ER) 50 MG TAB.ER.24H PO SCH (09:05)
[2019-09-03] MEDS: GABAPENTIN 300 MG CAP PO SCH (09:06)
--- NOTE | 2019-09-03 09:15 | XR ---
EXAMINATION TYPE: XR chest 2V DATE OF EXAM: 09/03/2019 COMPARISON: 08/31/2019 TECHNIQUE: PA and lateral views submitted. HISTORY: Shortness of breath FINDINGS: Cardiomegaly and diffuse interstitial pattern seen. Prominence the upper mediastinum stable. Atherosc lerotic change aorta. Postoperative changes seen. Biapical pleural thickening. Degenerative change of the spine. Surgical clips in the upper abdomen. IMPRESSION: 1. Cardiomegaly with coarsened interstitium can be seen with CHF. Interstitial pneumonitis also the d ifferential diagnosis. 2. Subsegmental changes medial right lung base stable correlate for atelectasis versus infiltrate.
[2019-09-03] MEDS: NYSTATIN 100,000 UNIT/GM POWD 15 GM TOPICAL SCH (10:03)
[2019-09-03] MEDS ORDERED: FUROSEMIDE 20 MG TAB PO SCH (11:15)
--- NOTE | 2019-09-03 11:18 | P.NPCON ---
History of Present Illness - Reason for Consult hyperkalemia - History of Present Illness Reason for consultation: Hyperkalemia History of present illness: Patient is a 69-year-old female seen in renal consultation for hyperkalemia. Patient's potassium level the last few days has been on the higher side. Yesterday it peaked at 6.2 and was medically treated with IV insulin, sodium bicarb and Kayexalate. Potassium level this morning is 4.9. No evidence of acidosis. Patient does have long-standing history of diabetes mellitus. Her blood sugars have been quite elevated. Yesterday they were above 400. This morning her blood sugar was 149. She is off insulin drip. Patient initially presented to the hospital with difficulty breathing. She has history of COPD. She is currently being treated with steroids and bronchodilator therapy. She is also maintained on Zithromax. Denies any significant cough. No fever or chills. No vomiting or diarrhea. Oral intake is good. Good urine output. No hematuria or dysuria. Denies family history of renal disease. Denies regular use of nonsteroidals. Vital signs are stable. General: The patient appeared well nourished and normally developed. HEENT: Head exam is unremarkable. Neck is without jugular venous distension. LUNGS: Breath sounds decreased. HEART: Rate and Rhythm are regular. First and second heart sounds normal. No murmurs, rubs or gallops. ABDOMEN: Abdominal exam reveals normal bowel sounds. Non-tender and non- distended. No evidence of peritonitis. EXTREMITITES: 1+ edema. Past Medical History Past Medical History: Asthma, Chest Pain / Angina, COPD, Diabetes Mellitus, Hyperlipidemia, Hypertension, Myocardial Infarction ([place]), Syncope Additional Past Medical History / Comment(s): NEBULIZER AT HOME, Last Myocardial Infarction Date:: 2010 History of Any Multi-Drug Resistant Organisms: None Reported Past Surgical History: Cholecystectomy, Coronary Bypass/CABG, Heart Catheterization With Stent Additional Past Surgical History / Comment(s): 1st stent in 2010, 3 more stents placed -about 2014, open heart surgery 2016. Past Anesthesia/Blood Transfusion Reactions: No Reported Reaction Additional Past Anesthesia/Blood Transfusion Reaction / Comment(s): Claustrophobic Date of Last Stent Placement:: 2014 Past Psychological History: No Psychological Hx Reported Smoking Status: Former smoker Past Alcohol Use History: None Reported Additional Past Alcohol Use History / Comment(s): STARTED SMOKING AT AGE 14- WORKED UP TO 3 [employer], QUIT 2010 Past Drug Use History: None Reported - Past Family History Father Family Medical History: Myocardial Infarction ([place]) Additional Family Medical History / Comment(s): STENT, OPEN HEART SURGERY Mother Additional Family Medical History / Comment(s): DEPRESSION Medications and Allergies Home Medications Medication Instructions Recorded Confirmed Type Aspirin 81 mg PO DAILY 12/17/14 08/30/19 History Furosemide [Lasix] 20 mg PO DAILY PRN 12/17/14 08/30/19 History Insulin Lispro Protamin/Lispro 70 unit SQ AC-SUPPER 12/17/14 08/30/19 History [humaLOG Mix 75-25 Kwikpen] Albuterol Inhaler [Ventolin Hfa 1 - 2 puff INHALATION RT-QID PRN 04/18/1512/14 History Inhaler] Budesonide-Formot 160-4.5 Mcg 2 puff INHALATION RT-BID 04/18/15 08/30/19 History [Symbicort 160-4.5 Mcg Inhaler] Insulin Lispro Protamin/Lispro 60 unit SQ AC-BRKFST 04/18/15 08/30/19 History [humaLOG Mix 75-25 Kwikpen] Atorvastatin [Lipitor] 80 mg PO HS 11/24/16 08/30/19 History Ipratropium-Albuterol Nebulize 3 ml INHALATION RT-QID PRN 11/24/16 08/30/19 History [Duoneb 0.5 mg-3 mg/3 ml Soln] Clopidogrel [Plavix] 75 mg PO DAILY #30 tab 12/04/16 08/30/19 Rx Gabapentin [Neurontin] 300 mg PO DAILY 05/11/17 08/30/19 History Azithromycin [Zithromax Z-pack] 250 mg PO DIRECTED #6 tab 08/30/18 08/30/19 Rx Metoprolol Succinate [Toprol XL] 50 mg PO DAILY 08/30/18 08/30/19 History Tiotropium 18 Mcg/Puff [Spiriva] 1 cap INHALATION RT-DAILY 08/30/18 08/30/19 History metFORMIN HCL [Glucophage] 850 mg PO TID 08/30/18 08/30/19 History predniSONE 50 mg PO DAILY #5 tablet 08/30/18 08/30/19 Rx Insulin Glargine,Hum.rec.anlog 80 unit SQ HS 08/30/19 08/30/19 History [Lantus Solostar] Nystatin 100,000 Unit/gm Powd 1 applic TOPICAL BID 08/30/19 08/30/19 History [Mycostatin Powder] Allergies Allergy/AdvReac Type Severity Reaction Status Date / Time codeine Allergy Nausea & Verified 08/30/19 20:50 Vomiting Physical Exam Vitals: Vital Signs Temp Pulse Pulse Resp BP Pulse Ox 09/03/19 09:16 82 09/03/19 09:08 84 09/03/19 09:07 84 09/03/19 08:51 85 09/03/19 07:00 97.8 F 73 18 148/80 95 09/03/19 03:57 80 142/80 09/03/19 03:25 80 09/03/19 03:02 80 09/03/19 02:12 69 164/68 09/03/19 00:31 97.7 F 76 18 163/57 96 09/02/19 22:15 74 106/63 09/02/19 21:31 81 18 09/02/19 21:22 84 18 09/02/19 21:08 88 18 09/02/19 20:25 67 181/75 09/02/19 19:19 98.4 F 71 18 175/53 96 09/02/19 16:31 83 18 09/02/19 16:22 81 18 95 09/02/19 15:00 97.5 F L 73 16 166/77 96 09/02/19 11:36 74 09/02/19 11:24 74 Intake and Output 09/02/19 09/03/19 09/03/19 22:59 06:59 14:59 Intake Total 160 236 Balance 160 236 Intake: Intake, IV Titration 160 Amount Sodium Chloride 0.9% 1, 160 000 ml @ 20 mls/hr IV . [facility] Rx#:[id number] Oral 236 Other: # Voids 2 2 Weight 104.326 kg Results - Lab Results Most recent lab results Calcium 9.1 mg/dL (8.4-10.2) 09/03/19 07:04 09/03/19 07:04 09/03/19 07:04 Assessment and Plan Plan: Assessment: 1. Hyperkalemia secondary to hyperglycemia. Improved with better blood sugar control. 2. Insulin-dependent diabetes mellitus. 3. Dyspnea secondary to COPD exacerbation. 4. Lower extremity edema. 5. Mild acute kidney injury secondary to intravascular volume depletion from hyperglycemia. Better. Plan: Add Lasix 20 mg orally once daily. Tight blood sugar control. Check UA. Repeat electrolytes in the morning. Thank you for the consultation. I will continue to follow the patient with you during her hospital stay.
--- NOTE | 2019-09-03 11:55 | P.PN ---
Subjective Progress Note Date: 09/03/19 Principal diagnosis: Acute COPD exacerbation, with a right lower lobe pneumonia 69-year-old female patient is being seen in follow-up today. She was seen in consultation yesterday for worsening shortness of breath. She came in with increased cough and wheezing and dyspnea and chest tightness and congestion and sputum production. She was seen by my partner and she was diagnosed having an acute COPD exacerbation with a right lower lobe pneumonia. She is an ex-smoker. She is known to have diabetes and hypertension coronary artery disease and previous bypass surgery. Overall, she is feeling better compared to yesterday. No new complaints for now. She remains on DuoNeb nebulized treatments around the clock and she is on examination Rocephin and Zithromax and IV Solu-Medrol 60 mg every 6 hours. On 09/02/2019 the patient is feeling essentially the same, probably somewhat better compared to yesterday. Overnight she had to be placed on nitroglycerin drip for blood sugar control. She is running at 6 units an hour for now. She is on IV Solu-Medrol patient on examination Rocephin and Zithromax. Acute COPD exacerbation is improving. Note that she had a limited right lower lobe pulmonary infiltrate. He is known to be diabetic in addition to coronary artery disease and previous bypass surgery. No major swelling in lower extremities. No nausea. No vomiting. No diarrhea. No abdominal pain. No other complaints otherwise. On 09/03/2019 patient seen in follow-up on a general medical floor. She is resting in bed, on 2 L of oxygen, she states her breathing is improving, less dyspneic, less bronchospastic, occasional nonproductive cough, no complaints of chest pain, lung sounds are diminished, with minimal wheezing. Overall improved since admission, states chest x-ray shows coarsened interstitium, and subsegmental changes in the right lower lobe with the possibility of atelectasis versus pneumonic infiltrate. Clinically patient is stable, she has been afebrile, cultures are negative, she's been treated with a combination of Rocephin and Zithromax, her steroids have been transitioned to oral prednisone, she's been treated with nebulized bronchodilators, clinically improved, and patient is being considered for discharge home today. Objective - Vital Signs Vital signs: Vital Signs Temp 97.8 F 09/03/19 07:00 Pulse 82 09/03/19 09:16 Resp 18 09/03/19 07:00 BP 148/80 09/03/19 07:00 Pulse Ox 95 09/03/19 07:00 Intake & Output 09/02/19 09/03/19 09/03/19 18:59 06:59 18:59 Intake Total 27.996 160 236 Balance 27.996 160 236 Weight 104.326 kg Intake: Intake, IV Titration 27.996 160 Amount Insulin Regular 100 unit 27.996 In Sodium Chloride 0.9% 100 ml @ Titrate IV .Q0M [facility] Rx#:[id number] Sodium Chloride 0.9% 1, 160 000 ml @ 20 mls/hr IV . Q24H [facility] Rx#:[id number] Oral 236 Other: Voiding Method Bedside Commode Incontinent # Voids 1 2 # Bowel Movements 2 - Exam GENERAL EXAM: Alert, very pleasant, 69-year-old obese white female, on 2 L of oxygen comfortable in no apparent distress. HEAD: Normocephalic/atraumatic. EYES: Normal reaction of pupils, equal size. Conjunctiva pink, sclera white. NOSE: Clear with pink turbinates. THROAT: No erythema or exudates. NECK: No masses, no JVD, no thyroid enlargement, no adenopathy. CHEST: No chest wall deformity. Symmetrical expansion. LUNGS: Diminished air entry with minimal end expiratory wheezes at the right base CVS: Regular rate and rhythm, normal S1 and S2, no gallops, no murmurs, no rubs ABDOMEN: Soft, nontender. No hepatosplenomegaly, normal bowel sounds, no guarding or rigidity. EXTREMITIES: No clubbing, no edema, no cyanosis, 2+ pulses and upper and lower extremities. MUSCULOSKELETAL: Muscle strength and tone normal. SPINE: No scoliosis or deformity SKIN: No rashes CENTRAL NERVOUS SYSTEM: Alert and oriented -3. No focal deficits, tone is normal in all 4 extremities. PSYCHIATRIC: Alert and oriented -3. Appropriate affect. Intact judgment and insight. - Labs CBC & Chem 7: 09/03/19 07:04 09/03/19 07:04 Labs: Abnormal Lab Results - Last 24 Hours (Table) 09/02/19 09/02/19 09/02/19 Range/Units 14:53 16:49 19:37 WBC (3.8-10.6) k/uL MCHC (31.0-37.0) g/dL Neutrophils # (1.3-7.7) k/uL Monocytes # (0-1.0) k/uL Potassium 6.2 H* 5.9 H (3.5-5.1) mmol/L Carbon Dioxide (22-30) mmol/L BUN (7-17) mg/dL Glucose (74-99) mg/dL POC Glucose (mg/dL) 459 H (75-99) mg/dL 09/02/19 09/02/19 09/03/19 Range/Units 20:04 22:08 01:56 WBC (3.8-10.6) k/uL MCHC (31.0-37.0) g/dL Neutrophils # (1.3-7.7) k/uL Monocytes # (0-1.0) k/uL Potassium (3.5-5.1) mmol/L Carbon Dioxide (22-30) mmol/L BUN (7-17) mg/dL Glucose (74-99) mg/dL POC Glucose (mg/dL) 437 H 344 H 223 H (75-99) mg/dL 09/03/19 09/03/19 09/03/19 Range/Units 07:04 07:04 07:08 WBC 19.0 H (3.8-10.6) k/uL MCHC 30.5 L (31.0-37.0) g/dL Neutrophils # 16.0 H (1.3-7.7) k/uL Monocytes # 1.3 H (0-1.0) k/uL Potassium (3.5-5.1) mmol/L Carbon Dioxide 33 H (22-30) mmol/L BUN 45 H (7-17) mg/dL Glucose 135 H (74-99) mg/dL POC Glucose (mg/dL) 149 H (75-99) mg/dL Microbiology - Last 24 Hours (Table) 08/30/19 16:23 Blood Culture - Preliminary Blood No Growth after 72 hours Assessment and Plan Plan: Assessment: 1 acute COPD exacerbation secondary to right lower lobe pneumonia. The patient has new infiltration of the right lung base currently on a combination of Rocephin and Zithromax. 2 multivessel coronary artery disease not abnormal to percutaneous revascularization/angioplasty/stenting. Patient is status post non-ST segment elevation myocardial infarction. The patient is status post three-vessel bypass surgery with WELCH to LAD 3 COPD moderate to severe with a baseline FEV1 of 53-54% of predicted. The faviola ent is maintained on a combination of Spiriva and Symbicort on outpatient basis 3 morbid obesity 4 hypertension 6 hyperlipidemia 7 smoker the patient quit smoking approximately 10 years ago 8 diabetes mellitus with a component of steroid use hyperglycemia. The patient's blood sugar is above 300 and we're going to reduce the Solu Medrol dose as the patient is clinically improved.. Plan: Patient is clinically stable, breathing is improving, no fever or chills, cultures have been negative, patient has been treated with a combination of Rocephin and Zithromax, today's follow-up chest x-ray shows coarsened interstitium, and subsegmental changes in the right lower base with the possibility of atelectasis versus pneumonic infiltrate, no acute events overnight, less dyspneic and bronchospastic, patient is being considered for discharge home today on a course of oral antibiotics, and she will need a prednisone taper and breathing treatments, she can follow up with Dr. Monique in the office in one week to 10 days I performed a history & physical examination of the patient and discussed their management with my nurse practitioner, Raine Arriaga. I reviewed the nurse practitioner's note and agree with the documented findings and plan of care. Lung sounds are positive for end exp wheezes. The findings and the impression was discussed with the patient. I attest to the documentation by the nurse practitioner. Time with Patient: Less than 30
[2019-09-03 12:04] LABS: Glucose,Whole Blood 85 mg/dL (75-99)
[2019-09-03 16:09] VITALS: BP 142/76; TEMP 97.9
[2019-09-03 16:27] VITALS: PULSE 68
--- NOTE | 2019-09-04 07:56 | DS ---
DISCHARGE SUMMARY DATE OF SERVICE: 09/03/2019 FINAL DIAGNOSES: 1. Chronic obstructive pulmonary disease acute exacerbation as well as bronchial asthma acute exacerbation with acute bilateral pneumonia, right more than left with possible gram-negative, possible bronchopneumonia with acute hypoxic respiratory failure, present on admission. 2. Acute hyperkalemia, improved. 3. Diabetes mellitus type 2, uncontrolled with hyperglycemia. 4. Hypertension. 5. Hyperlipidemia. 6. History of myocardial infarction. 7. History of congestive heart failure, ejection fraction unknown. 8. History of syncope. 9. History of cholecystectomy. 10.History of coronary artery disease, coronary artery bypass grafting, stent. 11.History of claustrophobia. 12.Remote history of nicotine dependence. DISCHARGE DISPOSITION: The patient will be discharged in stable condition with guarded prognosis. Total time taken is 35 minutes. HISTORY OF PRESENT ILLNESS: This 69-year-old woman with a past medical history of multiple medical problems being followed by Dr. Gonzales in the outpatient setting admitted with shortness of breath, possible COPD/bronchial asthma and possible pneumonia. Patient was empirically treated with antibiotics and bronchodilators. Patient improved significantly. Dr. Monique saw the patient during the hospitalization. Patient improved significantly and the patient was given steroids and the patient is being discharged home in stable condition with guarded prognosis. On exam, vitals are stable. CARDIOVASCULAR: S1, S2 muffled. ABDOMEN: Soft. NERVOUS SYSTEM: No focal deficits. DISCHARGE ADVICE AND MEDICATIONS: 1. Diet is cardiac. 2. Activity limited until followup. 3. Follow up with Dr. Gonzales in 2 to 3 days. 4. Follow up with Dr. Monique as recommended. Medications are: 1. Aspirin 81 mg p.o. daily. 2. Glucophage 850 mg p.o. t.i.d. 3. Lispro 70 units a.c. supper and lispro 60 units a.c. b.i.d. 4. Insulin glargine 80 units subcu at bedtime. 5. Lasix 20 mg p.o. daily. 6. Lipitor 80 mg at bedtime. 7. Nystatin topically daily. 8. Neurontin 300 mg p.o. daily. 9. Spiriva 1 puff daily. 10.Symbicort 160/4.5 two puffs b.i.d. 11.Toprol XL 50 mg p.o. daily. 12.Albuterol p.r.n. 13.Ceftin 500 mg p.o. b.i.d. for 3 days. 14.DuoNeb q.i.d. and p.r.n. 15.Multivitamins one p.o. daily. 16.Plavix 75 mg p.o. daily. 17.Prednisone taper 40 mg daily for 3 days, 30 for 3 days, 20 for 3 days 10 for 3 days. 18.Pulmicort 1 mg b.i.d. 19.Zithromax 500 mg p.o. daily for 5 days. Once again the patient will be discharged in stable and guarded prognosis. MMODL / IJN: [id number] /
--- NOTE | 2019-09-05 09:02 | CDI ---
Documentation Clarification Form Date: 09/05/19 From: Rose Garcia Phone: If you have a question about this query, please contact Magdalene Bennett, Injector Assembler at [phone] between 8am and 5pm. Admit Date: 08/30/19 Discharge Date: 09/03/19 Patient Name: Nancy Li Visit Number: [id number] ATTENTION: The Clinical Documentation Specialists (CDI) and [facility] Coding Staff appreciate your assistance in clarifying documentation. Please respond to the clarification below the line at the bottom and electronically sign. The CDI & [facility] Coding staff will review the response and follow-up if needed. Please note: Queries are made part of the Legal Health Record. If you have any questions, please contact the author of this message via ITS. Dear Dr. Irwin Arredondo, The diagnosis sepsis was documented in the ED Note, but is not noted in subsequent documentation. History/Risk Factors: morbid obesity w BMI 40.7, DM, CAD w stent, HTN w CHF Clinical Indicators: AECOPD w gram neg pneumonia, WBC 11.6, Neutrophils 9.2- 18.7, lactic acid 1.7, BC no growth Treatment: IV fluids, IV Solu-Medro, IV Zithromax, IV Rocephin Please clarify if the sepsis was Present/active/treated this admission Sepsis ruled out Other, please specify Clinically unable to determine Sepsis ruled out MTDD
== END 2019-09-03 16:44 | disposition home health service (06) | DRG 177 ==
LOC: EC 14:03 → 4SSUR 16:05
PROVIDERS: ADMIT Internal Medicine; ATTEND Internal Medicine
DX: J15.6 Pneumonia due to other Gram-negative bacteria (principal); J96.01 Acute respiratory failure with hypoxia; J44.0 Chronic obstructive pulmonary disease with (acute) lower respiratory infection; J44.1 Chronic obstructive pulmonary disease with (acute) exacerbation; J45.901 Unspecified asthma with (acute) exacerbation; N17.9 Acute kidney failure, unspecified; Z68.41 Body mass index [BMI] 40.0-44.9, adult; E66.01 Morbid (severe) obesity due to excess calories; I11.0 Hypertensive heart disease with heart failure; I50.9 Heart failure, unspecified; E86.9 Volume depletion, unspecified; E11.65 Type 2 diabetes mellitus with hyperglycemia; E87.5 Hyperkalemia; T38.0X5A Adverse effect of glucocorticoids and synthetic analogues, initial encounter; E78.5 Hyperlipidemia, unspecified; I25.10 Atherosclerotic heart disease of native coronary artery without angina pectoris; I25.2 Old myocardial infarction; R32 Unspecified urinary incontinence; Z79.82 Long term (current) use of aspirin; Z79.51 Long term (current) use of inhaled steroids; Z79.02 Long term (current) use of antithrombotics/antiplatelets; Z79.4 Long term (current) use of insulin; Z79.899 Other long term (current) drug therapy; Z71.3 Dietary counseling and surveillance; Z90.49 Acquired absence of other specified parts of digestive tract; Z95.1 Presence of aortocoronary bypass graft; Z95.5 Presence of coronary angioplasty implant and graft; Z87.891 Personal history of nicotine dependence; Z88.5 Allergy status to narcotic agent; Z82.49 Family history of ischemic heart disease and other diseases of the circulatory system; Z81.8 Family history of other mental and behavioral disorders
CPT/HCPCS: 36415; 71046; 80048; 80051; 80053; 82947; 83036; 83605; 83880; 84132; 85025; 85610; 85730; 87040; 87502; 93005; 94640; 94760; 96374; 99291

== ENCOUNTER 2020-01-06 11:53 | Inpatient (IN) | payer MEDICARE ==
[2020-01-06] MEDS ORDERED: SODIUM CHLORIDE 0.9% 1,000 ML IV STA (12:25)
[2020-01-06] MEDS ORDERED: methylPREDNISolone SOD SUCCI 125 MG/2 ML VIAL IV STA (12:25)
--- NOTE | 2020-01-06 12:33 | ED ---
General Adult HPI - General Chief complaint: Shortness of Breath Stated complaint: SOB Time Seen by Provider: 01/06/20 12:14 Source: patient, RN notes reviewed, old records reviewed Mode of arrival: ambulatory Limitations: no limitations - History of Present Illness Initial comments: Patient is a 69-year-old female who presents for his friends stay with increased shortness of breath. Patient reports she lives she has a COPD exacerbation. Patient was seen at urgent care 3 days ago was given IM steroids and started on oral steroids. She reports that she is having initial improvement after the injection but it is continuing have more chest pain and worsening dyspnea. She did report that she's having symptoms of the chest pain with exertion as well. Does have a cardiac history with triple vessel bypass. Patient states that he has she does not wear oxygen at all times, but arrives hypoxic at 89% on room air. Patient denies any fevers. She does report when she uses her nebulizer machine it does create increased coughing. - Related Data Home Medications Medication Instructions Recorded Confirmed Aspirin 81 mg PO DAILY 12/17/14 08/30/19 Furosemide [Lasix] 20 mg PO DAILY PRN 12/17/14 08/30/19 Insulin Lispro Protamin/Lispro 70 unit SQ AC-SUPPER 12/17/14 08/30/19 [humaLOG Mix 75-25 Kwikpen] Albuterol Inhaler (Mhu) [Ventolin 1 - 2 puff INHALATION RT-QID PRN 04/18/15 08/30/19 Hfa Inhaler (Mhu)] Budesonide-Formot 160-4.5 Mcg 2 puff INHALATION RT-BID 04/18/15 08/30/19 [Symbicort 160-4.5 Mcg Inhaler] Insulin Lispro Protamin/Lispro 60 unit SQ AC-BRKFST 04/18/15 08/30/19 [humaLOG Mix 75-25 Kwikpen] Atorvastatin [Lipitor] 80 mg PO HS 11/24/16 08/30/19 Gabapentin [Neurontin] 300 mg PO DAILY 05/11/17 08/30/19 Metoprolol Succinate [Toprol XL] 50 mg PO DAILY 08/30/18 08/30/19 Tiotropium 18 Mcg/Puff [Spiriva] 1 cap INHALATION RT-DAILY 08/30/18 08/30/19 metFORMIN HCL [Glucophage] 850 mg PO TID 08/30/18 08/30/19 Insulin Glargine,Hum.rec.anlog 80 unit SQ HS 08/30/19 08/30/19 [Lantus Solostar] Nystatin 100,000 Unit/gm Powd 1 applic TOPICAL BID 08/30/19 08/30/19 [Mycostatin Powder] Previous Rx's Medication Instructions Recorded Clopidogrel [Plavix] 75 mg PO DAILY #30 tab 12/04/16 Azithromycin [Zithromax] 500 mg PO DAILY #5 tab 09/03/19 Budesonide [Pulmicort] 1 mg INHALATION RT-BID #60 nebu 09/03/19 Cefuroxime Axetil [Ceftin] 500 mg PO BID 3 Days #6 tab 09/03/19 Ipratropium-Albuterol Nebulize 3 ml INHALATION RT-QID #120 09/03/19 [Duoneb 0.5 mg-3 mg/3 ml Soln] Multivitamins, Thera [Multivitamin 1 each PO DAILY@1200 #30 tab 09/03/19 (formulary)] predniSONE 10 mg PO DIRECTED #30 tab 09/03/19 Allergies Allergy/AdvReac Type Severity Reaction Status Date / Time codeine Allergy Nausea & Verified 08/30/19 20:50 Vomiting Review of Systems ROS Statement: Those systems with pertinent positive or pertinent negative responses have been documented in the HPI. ROS Other: All systems not noted in ROS Statement are negative. Past Medical History Past Medical History: Asthma, Chest Pain / Angina, COPD, Diabetes Mellitus, Hyperlipidemia, Hypertension, Myocardial Infarction ([place]), Syncope Additional Past Medical History / Comment(s): NEBULIZER AT HOME, Last Myocardial Infarction Date:: 2010 History of Any Multi-Drug Resistant Organisms: None Reported Past Surgical History: Cholecystectomy, Coronary Bypass/CABG, Heart Catheterization With Stent Additional Past Surgical History / Comment(s): 1st stent in 2010, 3 more stents placed -about 2014, open heart surgery 2016. Past Anesthesia/Blood Transfusion Reactions: No Reported Reaction Additional Past Anesthesia/Blood Transfusion Reaction / Comment(s): Claustrophobic Date of Last Stent Placement:: 2014 Past Psychological History: No Psychological Hx Reported Smoking Status: Former smoker Past Alcohol Use History: None Reported Past Drug Use History: None Reported - Past Family History Father Family Medical History: Myocardial Infarction ([place]) Additional Family Medical History / Comment(s): STENT, OPEN HEART SURGERY Mother Additional Family Medical History / Comment(s): DEPRESSION General Exam - General Exam Comments Initial Comments: 69-year-old female. Alert and oriented 3. Limitations: no limitations General appearance: alert, in no apparent distress Head exam: Present: atraumatic, normocephalic, normal inspection Eye exam: Present: normal appearance, PERRL, EOMI. Absent: scleral icterus, conjunctival injection, periorbital swelling ENT exam: Present: normal exam, mucous membranes moist Neck exam: Present: normal inspection. Absent: tenderness, meningismus, lymphadenopathy Respiratory exam: Present: decreased breath sounds. Absent: normal lung sounds bilaterally, respiratory distress, wheezes, rales, rhonchi, stridor Cardiovascular Exam: Present: regular rate, normal rhythm, normal heart sounds. Absent: systolic murmur, diastolic murmur, rubs, gallop, clicks GI/Abdominal exam: Present: soft, normal bowel sounds. Absent: distended, tenderness, guarding, rebound, rigid Extremities exam: Present: normal inspection, full ROM, normal capillary refill. Absent: tenderness, pedal edema, joint swelling, calf tenderness Back exam: Present: normal inspection Neurological exam: Present: alert, oriented X3, CN II-XII intact Psychiatric exam: Present: normal affect, normal mood Skin exam: Present: warm, dry, intact, normal color. Absent: rash Course Vital Signs 01/06/20 01/06/20 12:06 14:07 Temperature 97.8 F 98.0 F Pulse Rate 65 61 Respiratory 20 18 Rate Blood Pressure 160/72 138/68 O2 Sat by Pulse 94 L 97 Oximetry Medical Decision Making - Medical Decision Making This Patient is a 69-year-old female who presents the emergency department today for evaluation with chief complaint of dyspnea worsening over the past week. She was started on steroids for concern for COPD exacerbation. Patient also mentions chest pain with exertion. She does have history of coronary artery disease with triple vessel bypass. At this time EKG was completed to with no acute ST changes. She did have an elevated troponin of 0.4. Patient started on low intensity heparin. Chest x-ray shows evidence of interstitial fluid overload versus interstitial pneumonitis. Patient was placed on oxygen and she was hypoxic upon arrival 89% on room air. She was given 1 dose of IV steroids as well. At this time Patient will be admitted with consult to cardiology for concern for dyspnea related to NSTEMI. CT angio completed for positive Ddimer, and Ct scan results pending. - Lab Data Result diagrams: 01/06/20 12:40 01/06/20 12:40 Lab Results 01/06/20 01/06/20 01/06/20 Range/Units 12:40 12:40 12:40 WBC 15.7 H (3.8-10.6) k/uL RBC 4.15 (3.80-5.40) m/uL Hgb 12.9 (11.4-16.0) gm/dL Hct 40.4 (34.0-46.0) % MCV 97.2 (80.0-100.0) fL MCH 31.0 (25.0-35.0) pg MCHC 31.9 (31.0-37.0) g/dL RDW 14.1 (11.5-15.5) % Plt Count 340 (150-450) k/uL Neutrophils % 78 % Lymphocytes % 15 % Monocytes % 5 % Eosinophils % 1 % Basophils % 0 % Neutrophils # 12.2 H (1.3-7.7) k/uL Lymphocytes # 2.3 (1.0-4.8) k/uL Monocytes # 0.8 (0-1.0) k/uL Eosinophils # 0.2 (0-0.7) k/uL Basophils # 0.1 (0-0.2) k/uL PT 9.7 (9.0-12.0) sec INR 0.9 (<1.2) APTT 20.5 L (22.0-30.0) sec D-Dimer 0.67 H (<0.60) mg/L FEU Sodium 134 L (137-145) mmol/L Potassium 3.8 (3.5-5.1) mmol/L Chloride 97 L (98-107) mmol/L Carbon Dioxide 30 (22-30) mmol/L Anion Gap 7 mmol/L BUN 31 H (7-17) mg/dL Creatinine 0.94 (0.52-1.04) mg/dL Est GFR (CKD-EPI)AfAm 72 (>60 ml/min/1.73 sqM) Est GFR (CKD-EPI)NonAf 62 (>60 ml/min/1.73 sqM) Glucose 416 H (74-99) mg/dL Plasma Lactic Acid Dennis (0.7-2.0) mmol/L Calcium 9.0 (8.4-10.2) mg/dL Magnesium 1.9 (1.6-2.3) mg/dL Total Bilirubin 0.7 (0.2-1.3) mg/dL AST 25 (14-36) U/L ALT 21 (4-34) U/L Alkaline Phosphatase 82 (38-126) U/L Lactate Dehydrogenase 685 H (313-618) U/L Troponin I (0.000-0.034) ng/mL C-Reactive Protein <5.0 (<10.0) mg/L NT-Pro-B Natriuret Pep pg/mL Total Protein 6.3 (6.3-8.2) g/dL Albumin 3.6 (3.5-5.0) g/dL 01/06/20 01/06/20 01/06/20 Range/Units 12:40 12:40 12:40 WBC (3.8-10.6) k/uL RBC (3.80-5.40) m/uL Hgb (11.4-16.0) gm/dL Hct (34.0-46.0) % MCV (80.0-100.0) fL MCH (25.0-35.0) pg MCHC (31.0-37.0) g/dL RDW (11.5-15.5) % Plt Count (150-450) k/uL Neutrophils % % Lymphocytes % % Monocytes % % Eosinophils % % Basophils % % Neutrophils # (1.3-7.7) k/uL Lymphocytes # (1.0-4.8) k/uL Monocytes # (0-1.0) k/uL Eosinophils # (0-0.7) k/uL Basophils # (0-0.2) k/uL PT (9.0-12.0) sec INR (<1.2) APTT (22.0-30.0) sec D-Dimer (<0.60) mg/L FEU Sodium (137-145) mmol/L Potassium (3.5-5.1) mmol/L Chloride (98-107) mmol/L Carbon Dioxide (22-30) mmol/L Anion Gap mmol/L BUN (7-17) mg/dL Creatinine (0.52-1.04) mg/dL Est GFR (CKD-EPI)AfAm (>60 ml/min/1.73 sqM) Est GFR (CKD-EPI)NonAf (>60 ml/min/1.73 sqM) Glucose (74-99) mg/dL Plasma Lactic Acid Dennis 2.4 H* (0.7-2.0) mmol/L Calcium (8.4-10.2) mg/dL Magnesium (1.6-2.3) mg/dL Total Bilirubin (0.2-1.3) mg/dL AST (14-36) U/L ALT (4-34) U/L Alkaline Phosphatase (38-126) U/L Lactate Dehydrogenase (313-618) U/L Troponin I 0.480 H* (0.000-0.034) ng/mL C-Reactive Protein (<10.0) mg/L NT-Pro-B Natriuret Pep 1170 pg/mL Total Protein (6.3-8.2) g/dL Albumin (3.5-5.0) g/dL 01/06/20 13:34 EKG performed at 1233 shows sinus rhythm with first-degree AV block. Left axis deviation. Left bundle-branch block. Ventricular rate 65 bpm. 222 ms. She has duration is 144 ms. QT QTc is 442/459 ms. - Radiology Data Radiology results: report reviewed Cardiomegaly correlating for interstitial pneumonitis including viral pneumonitis versus venous congestion. Stable prominent upper mediastinum. Underlying mass or adenopathy is in differential. Critical Care Time Critical Care Time: Yes Total Critical Care Time: 35 Disposition Clinical Impression: COPD (chronic obstructive pulmonary disease), NSTEMI (non-ST elevated myocar dial infarction), Diabetes mellitus Disposition: ADMITTED IP TO THIS HOSP Condition: Stable Is patient prescribed a controlled substance at d/c from ED?: No Referrals: Elvira Gonzales MD [Primary Care Provider] - 1-2 days Time of Disposition: 14:47
[2020-01-06 13:02] LABS: Basophils # (A) 0.1 k/uL (0-0.2); Basophils % (A) 0 %; Eosinophils # (A) 0.2 k/uL (0-0.7); Eosinophils % (A) 1 %; HCT 40.4 % (34.0-46.0); HGB 12.9 gm/dL (11.4-16.0); Lymphocytes # (A) 2.3 k/uL (1.0-4.8); Lymphocytes % (A) 15 %; MCHC 31.9 g/dL (31.0-37.0); MCV 97.2 fL (80.0-100.0); Mean Platelet Volume 7.7; Monocytes # (A) 0.8 k/uL (0-1.0); Monocytes % (A) 5 %; Neutrophils # (A) 12.2 k/uL (1.3-7.7); Neutrophils % (A) 78 %; Platelet Count 340 k/uL (150-450); RBC 4.15 m/uL (3.80-5.40); RDW 14.1 % (11.5-15.5); WBC 15.7 k/uL (3.8-10.6)
[2020-01-06 13:20] LABS: ALT 21 U/L (4-34); AST 25 U/L (14-36); African American GFR (CKD) 72 (>60 ml/min/1.73 sqM); Albumin 3.6 g/dL (3.5-5.0); Alkaline Phosphatase 82 U/L (38-126); Anion Gap 7 mmol/L; Blood Urea Nitrogen 31 mg/dL (7-17); C Reactive Protein <5.0 mg/L (<10.0); Carbon Dioxide 30 mmol/L (22-30); Chloride 97 mmol/L (98-107); Glucose 416 mg/dL (74-99); LDH 685 U/L (313-618); Magnesium 1.9 mg/dL (1.6-2.3); Non-African American GFR(CKD) 62 (>60 ml/min/1.73 sqM); Potassium 3.8 mmol/L (3.5-5.1); Sodium 134 mmol/L (137-145); Total Bilirubin 0.7 mg/dL (0.2-1.3); Total Protein 6.3 g/dL (6.3-8.2)
[2020-01-06 13:21] LABS: INR 0.9 (<1.2); Prothrombin Time 9.7 sec (9.0-12.0)
[2020-01-06 13:27] LABS: D-Dimer 0.67 mg/L FEU (<0.60)
[2020-01-06 13:28] LABS: Partial Thromboplastin Time 20.5 sec (22.0-30.0)
--- NOTE | 2020-01-06 13:31 | XR ---
EXAMINATION TYPE: XR chest 1V portable DATE OF EXAM: 01/06/2020 COMPARISON: 09/03/2019 HISTORY: Shortness of breath TECHNIQUE: Single frontal view of the chest is obtained. FINDINGS: Bilateral patchy faint densities are seen with cardiomegaly and widened mediastinum. This is similar to the prior exam. Atherosclerotic change of the aorta and cardiomegaly with postsurgical changes. No pneumothorax. Biapical pleural thickening. IMPRESSION: 1. Cardiomegaly correlate for interstitial pneumonitis including viral pneumonitis versus venous clay estion. 2. Stable prominent upper mediastinum. Underlying mass or adenopathy in the differential.
[2020-01-06] MEDS ORDERED: ASPIRIN 81 MG PO STA (14:11)
[2020-01-06] MEDS ORDERED: HEPARIN SODIUM,PORCINE 5,000 UNIT/ML 1 ML VIAL IV ONE (14:19)
[2020-01-06] MEDS ORDERED: NITROGLYCERIN SL TABS 0.4 MG TAB SUBLINGUAL PRN (14:47)
--- NOTE | 2020-01-06 15:05 | CT ---
EXAMINATION TYPE: CT chest angio for PE DATE OF EXAM: 01/06/2020 COMPARISON: HISTORY: Elevated d-dimer, difficulty breathing. CT DLP: 727.4 mGycm Automated exposure control for dose reduction was used. CONTRAST: CT Chest for pulmonary embolism performed with with IV Contrast, patient injected with 100 mL of Isov ue 370. FINDINGS: LUNGS: There are diffuse groundglass changes seen bilaterally. More nodular area of consolidation see n in the lingular segment left upper lobe measuring 1.4 cm. No pleural effusion. Motion artifact limi ts the exam. No sizable pneumothorax. MEDIASTINUM: There is satisfactory enhancement of the pulmonary artery and its branches, there is no CT evidence for pulmonary embolism. There are no greater than 1 cm hilar or mediastinal lymph nodes. Heart is enlarged and there is coronary artery calcification. 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 OTHER: Postcholecystectomy changes are seen in the gallbladder fossa. Sternotomy wires are seen. Hyp ertrophic and degenerative change of the vertebral column noted. IMPRESSION: 1. Limited exam due to severe motion demonstrates no diagnostic evidence of pulmonary embolism. 2. Diffuse groundglass changes can be associated with pneumonitis. Localized area of consolidation le ft upper lobe could be on the basis of developing pneumonia correlate clinically and follow-up to res olution to exclude underlying neoplasm. 3. Coronary artery calcification and cardiomegaly. Incidental note made of an aberrant subclavian art nehemiah.
[2020-01-06] MEDS ORDERED: AZITHROMYCIN 500 MG in SODIUM CHLORIDE 0.9% 250 ML IVPB STA (15:13)
[2020-01-06] MEDS: HEPARIN SOD,PORK IN 0.45% NACL 25,000 UNIT in 0.45% NACL 1 250ML.BAG IV SCH (15:27)
[2020-01-06] MEDS ORDERED: INSULIN REGULAR 100 UNIT/ML VIAL IV ONE (15:34)
[2020-01-06 16:54] LABS: Glucose,Whole Blood 469 mg/dL (75-99)
[2020-01-06] MEDS: INSULIN ASPART (NovoLOG) 100 UNIT/ML VIAL SQ SCH ×3 (17:54→21:48)
[2020-01-06 18:12] LABS: Ferritin 44.9 ng/mL (10.0-291.0)
[2020-01-06] MEDS: INSULIN DETEMIR (LEVEMIR) 100 UNIT/ML SYR SQ SCH (21:00)
[2020-01-06 21:10] LABS: Glucose,Whole Blood 442 mg/dL (75-99)
[2020-01-06] MEDS: HEPARIN SODIUM,PORCINE 5,000 UNIT/ML 1 ML VIAL IV PRN (23:13)
[2020-01-07] MEDS ORDERED: ALBUTEROL NEBULIZED 2.5 MG/3 ML INHALATION PRN (00:28)
[2020-01-07] MEDS ORDERED: BENZONATATE 100 MG CAP PO PRN (00:29)
--- NOTE | 2020-01-07 00:35 | P.HPIM ---
History of Present Illness H&P Date: 01/06/20 Chief Complaint: Shortness of breath Patient is a 69-year-old female patient is a 69-year-old female with a known history of asthma, hypertension, diabetes type 2 insulin-dependent, hyperlipidemia, history of OH, coronary artery disease with history of stent placement in 2010 and 2014, coronary artery bypass graft in 2017, previous history of smoking came to ER with complaints of worsening shortness of breath for the past 1 week. Patient was seen in the urgent care facility and was given IM steroids and started on oral steroids. Patient continues to have shortness of breath and exertional dyspnea along with chest pain. Patient does have home oxygen but does not wear oxygen all the time. Patient was hypoxic with pulse ox in the 89% on room air. Patient has been afebrile. Denied any subjective fevers or chills at home. Patient tried using nebulizati ons at home. Chest x-ray showed cardiomegaly correlate for interstitial pneumonitis including viral pneumonitis versus venous congestion. Stable prominent upper mediastinum. Underlying mass or adenopathy in the differential. Denied any recent travel exposure to COVID-19. EKG showed sinus rhythm with first-degree AV block. CT angiogram of the chest showed limited exam due to severe motion. No diagnostic evidence of pulmonary embolism. Diffuse groundglass changes can be associated with a pneumonitis. Localized area of consolidation left upper lobe could be on the basis of developing pneumonia correlate clinically and follow-up evaluation to exclude underlying neoplasm. Coronary artery calcification and cardiomegaly. 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 Laboratory data showed WBC 15.7, d-dimer 0.67, sodium 134, potassium 3.8, chloride 97, blood sugar was 416 on admission, lactic acid 2.4 LDH 685, CRP less than 5 proBNP 1170 Troponin 0 0.480, 0.351 and 0.351 Review of Systems Constitutional: Patient denies any fever or chills . No generalized weakness or weight loss. Abdomen: Patient denied nausea vomiting and diarrhea and abdominal pain. Cardiovascular: Patient denies any chest pain or short of breath no palpitations. Chest pressure. Respiratory: Patient does have cough without sputum production and shortness of breath Neurologic: Patient denied any numbness or tingling. Patient does have dizz iness and headache and ringing ears. Musculoskeletal: Patient denies any complaints of joint swelling or deformity. Skin: Negative Psychiatric: Negative Endocrine: No heat or cold intolerance. No recent weight gain. Genitourinary: No dysuria or hematuria. All other 14 point ROS negative except the above Past Medical History Past Medical History: Asthma, Chest Pain / Angina, COPD, Diabetes Mellitus, Hyperlipidemia, Hypertension, Myocardial Infarction ([place]), Syncope Additional Past Medical History / Comment(s): NEBULIZER AT HOME, Last Myocardial Infarction Date:: 2010 History of Any Multi-Drug Resistant Organisms: None Reported Past Surgical History: Cholecystectomy, Coronary Bypass/CABG, Heart Catheterization With Stent Additional Past Surgical History / Comment(s): 1st stent in 2010, 3 more stents placed -about 2014, open heart surgery 2016. Past Anesthesia/Blood Transfusion Reactions: No Reported Reaction Additional Past Anesthesia/Blood Transfusion Reaction / Comment(s): Claustrophobic Date of Last Stent Placement:: 2014 Past Psychological History: No Psychological Hx Reported Smoking Status: Former smoker Past Alcohol Use History: None Reported Additional Past Alcohol Use History / Comment(s): STARTED SMOKING AT AGE 14- WORKED UP TO 3 [employer], QUIT 2010 Past Drug Use History: None Reported - Past Family History Father Family Medical History: Myocardial Infarction ([place]) Additional Family Medical History / Comment(s): STENT, OPEN HEART SURGERY Mother Additional Family Medical History / Comment(s): DEPRESSION Medications and Allergies Home Medications Medication Instructions Recorded Confirmed Type Aspirin 81 mg PO DAILY 12/17/14 01/06/20 History Furosemide [Lasix] 20 mg PO DAILY PRN 12/17/14 01/06/20 History Insulin Lispro Protamin/Lispro 1 dose SQ AC-SUPPER 12/17/14 01/06/20 History [humaLOG Mix 75-25 Kwikpen] Budesonide-Formot 160-4.5 Mcg 2 puff INHALATION RT-BID 04/18/15 01/06/20 History [Symbicort 160-4.5 Mcg Inhaler] Insulin Lispro Protamin/Lispro 1 dose SQ AC-BRKFST 04/18/15 01/06/20 History [humaLOG Mix 75-25 Kwikpen] Atorvastatin [Lipitor] 80 mg PO HS 11/24/16 01/06/20 History Clopidogrel [Plavix] 75 mg PO DAILY #30 tab 12/04/16 01/06/20 Rx Gabapentin [Neurontin] 300 mg PO DAILY 05/11/17 01/06/20 History Metoprolol Succinate [Toprol XL] 50 mg PO DAILY 08/30/18 01/06/20 History Tiotropium 18 Mcg/Puff [Spiriva] 1 cap INHALATION RT-DAILY 08/30/18 01/06/20 History metFORMIN HCL [Glucophage] 850 mg PO TID 08/30/18 01/06/20 History Insulin Glargine,Hum.rec.anlog 80 unit SQ HS 08/30/19 01/06/20 History [Lantus Solostar] Nystatin 100,000 Unit/gm Powd 1 applic TOPICAL BID 08/30/19 01/06/20 History [Mycostatin Powder] Budesonide [Pulmicort] 1 mg INHALATION RT-BID #60 nebu 09/03/19 01/06/20 Rx Ipratropium-Albuterol Nebulize 3 ml INHALATION RT-QID #120 09/03/19 01/06/20 Rx [Duoneb 0.5 mg-3 mg/3 ml Soln] Albuterol Sulfate [Ventolin HFA] 1 - 2 puff INHALATION RT-QID PRN 01/06/20 01/06/20 History Benzonatate [Tessalon Perles] 100 mg PO TID PRN 01/06/20 01/06/20 History Multivitamins, Thera [Multivitamin 1 tab PO DAILY@1200 01/06/20 01/06/20 History (formulary)] predniSONE [Deltasone] See Taper PO DAILY 01/06/20 01/06/20 History Allergies Allergy/AdvReac Type Severity Reaction Status Date / Time codeine Allergy Nausea & Verified 01/06/20 18:37 Vomiting Physical Exam Vitals: Vital Signs Temp Pulse Pulse Resp BP BP Pulse Ox 01/06/20 16:55 97.9 F 66 18 166/76 98 01/06/20 16:19 85 L 01/06/20 15:30 64 18 150/70 97 01/06/20 14:07 98.0 F 61 18 138/68 97 01/06/20 12:06 97.8 F 65 20 160/72 94 L Intake and Output 01/06/20 01/06/20 01/06/20 06:59 14:59 22:59 Intake Total 240 Output Total 250 Balance -10 Intake: Oral 240 Output: Urine 250 Other: Voiding Method Bedside Commode # Voids 1 Weight 95.254 kg 95.254 kg PHYSICAL EXAMINATION: Patient is lying in the bed comfortably, no acute distress, awake alert and oriented.. HEENT: Normocephalic. Neck is supple. Pupils reactive. Nostrils clear. Oral cavity is moist. Ears reveal no drainage. Neck reveals no JVD, carotid bruits, or thyromegaly. CHEST EXAMINATION: Trachea is central. Symmetrical expansion.Bilateral diminished air entry. Minimal wheezing. Scattered rhonchi.. CARDIAC: Normal S1, S2 with no gallops. No murmurs ABDOMEN: Soft. Bowel sounds normal. No organomegaly. No abdominal bruits. Extremities: reveal no edema. No clubbing or cyanosis Neurologically awake, alert, oriented x3 with well-coordinated movements. No focal deficits noted Skin: No rash or skin lesions. Psychiatric: Coperative. Nonsuicidal Musculoskeletal: No joint swelling or deformity. Normal range of motion. Results CBC & Chem 7: 01/06/20 12:40 01/06/20 12:40 Labs: Abnormal Lab Results - Last 24 Hours (Table) 01/06/20 01/06/20 01/06/20 Range/Units 12:40 12:40 12:40 WBC 15.7 H (3.8-10.6) k/uL Neutrophils # 12.2 H (1.3-7.7) k/uL APTT 20.5 L (22.0-30.0) sec D-Dimer 0.67 H (<0.60) mg/L FEU Sodium 134 L (137-145) mmol/L Chloride 97 L (98-107) mmol/L BUN 31 H (7-17) mg/dL Glucose 416 H (74-99) mg/dL POC Glucose (mg/dL) (75-99) mg/dL Plasma Lactic Acid Dennsi (0.7-2.0) mmol/L Lactate Dehydrogenase 685 H (313-618) U/L Troponin I (0.000-0.034) ng/mL 01/06/20 01/06/20 01/06/20 Range/Units 12:40 12:40 16:50 WBC (3.8-10.6) k/uL Neutrophils # (1.3-7.7) k/uL APTT (22.0-30.0) sec D-Dimer (<0.60) mg/L FEU Sodium (137-145) mmol/L Chloride (98-107) mmol/L BUN (7-17) mg/dL Glucose (74-99) mg/dL POC Glucose (mg/dL) 469 H (75-99) mg/dL Plasma Lactic Acid Dennis 2.4 H* (0.7-2.0) mmol/L Lactate Dehydrogenase (313-618) U/L Troponin I 0.480 H* (0.000-0.034) ng/mL 01/06/20 Range/Units 18:35 WBC (3.8-10.6) k/uL Neutrophils # (1.3-7.7) k/uL APTT (22.0-30.0) sec D-Dimer (<0.60) mg/L FEU Sodium (137-145) mmol/L Chloride (98-107) mmol/L BUN (7-17) mg/dL Glucose (74-99) mg/dL POC Glucose (mg/dL) (75-99) mg/dL Plasma Lactic Acid Dennis (0.7-2.0) mmol/L Lactate Dehydrogenase (313-618) U/L Troponin I 0.351 H* (0.000-0.034) ng/mL Thrombosis Risk Factor Assmnt - DVT/VTE Prophylaxis DVT/VTE Prophylaxis: Pharmacologic Prophylaxis ordered - Choose All That Apply Any of the Below Risk Factors Present?: No Each Factor Represents 1 point: Medical pt on bed rest Other Risk Factors: No Each Risk Factor Represents 2 Points: Age 61-74 years Other congenital or acquired thrombophilia - If yes, enter type in comment: No Thrombosis Risk Factor Assessment Total Risk Factor Score: 3 Thrombosis Risk Factor Assessment Level: Very Low Risk Assessment and Plan Assessment: Acute COPD exacerbation. failed out pt. steroid course. Acute hypoxic respiratory failure on admission with pulse ox 89%. r/o COVID. Elevated troponin level due to non-ST elevated OH Hyperglycemia with uncontrolled diabetes type 2. Steroids contributing. Left upper lobe consolidation with possible pneumonia. Underlying malignancy cannot be excluded. Coronary artery disease with history of stent placement and CABG Previous history of smoking Hypertension Hyperlipidemia History of [place] DVT prophylaxis patient is already on heparin drip Plan: Patient will be continued antibiotics, IV steroids and breathing treatments. Was started on heparin drip due to elevated troponin levels. Serial troponins and telemetry monitoring. Continue with oxygen therapy. Continue with home insulin dose and adjust as needed. Pulmonary and cardiology was consulted. Further recommendations based on the clinical course. Time with Patient: Greater than 30
[2020-01-07] MEDS: ALBUTEROL HFA INHALER INHALATION PRN ×5 (00:51→19:50)
[2020-01-07 06:25] LABS: Basophils % (A) 0 %; Eosinophils # (A) 0.1 k/uL (0-0.7); Eosinophils % (A) 1 %; HCT 38.6 % (34.0-46.0); HGB 12.3 gm/dL (11.4-16.0); Hypochromasia Slight; Lymphocytes # (A) 0.8 k/uL (1.0-4.8); Lymphocytes % (A) 6 %; MCHC 31.7 g/dL (31.0-37.0); MCV 97.6 fL (80.0-100.0); Mean Platelet Volume 8.2; Monocytes # (A) 0.6 k/uL (0-1.0); Monocytes % (A) 5 %; Neutrophils # (A) 10.6 k/uL (1.3-7.7); Neutrophils % (A) 88 %; Platelet Count 285 k/uL (150-450); RBC 3.96 m/uL (3.80-5.40); RDW 14.1 % (11.5-15.5); WBC 12.1 k/uL (3.8-10.6)
[2020-01-07 06:31] LABS: Glucose,Whole Blood 376 mg/dL (75-99)
[2020-01-07] MEDS: INSULIN ASPART (NovoLOG) 100 UNIT/ML VIAL SQ SCH ×6 (07:03→21:16)
[2020-01-07] MEDS: FLUTICASONE 220 MCG INHALER INHALATION SCH ×2 (07:46→19:51)
[2020-01-07 08:01] LABS: Cholesterol 115 mg/dL (<200); HDL Cholesterol 58 mg/dL (40-60); LDL Cholesterol,Calculated 32 mg/dL (0-99); Triglycerides 124 mg/dL (<150)
[2020-01-07] MEDS: METOPROLOL SUCCINATE (ER) 50 MG TAB.ER.24H PO SCH (08:30)
[2020-01-07] MEDS: CLOPIDOGREL 75 MG TAB PO SCH (08:30)
[2020-01-07] MEDS: ASPIRIN 325 MG TAB PO SCH (08:30)
[2020-01-07 11:31] LABS: Glucose,Whole Blood 487 mg/dL (75-99)
[2020-01-07] MEDS: LEVOFLOXACIN 500 MG TAB PO SCH (11:32)
--- NOTE | 2020-01-07 11:37 | CONS ---
GISELLE Cruz is a 69-year-old lady with history of coronary artery disease, status post CABG, hypertension, insulin-requiring diabetes, and dyslipidemia who presented to hospital complaining of worsening shortness of breath for the last 1 week. She was seen in an urgent care facility and was treated with steroids. Because of worsening shortness of breath and exertional dyspnea along with some chest tightness, she came to the hospital and was admitted. Patient's chest x-ray showed cardiomegaly and venous congestion. The patient had coronary artery calcification and cardiomegaly on the CAT scan. Her tropinins are mildly elevated at 0.04, 0.3 and 0.3. EKG showed sinus rhythm with left axis deviation and left bundle branch block. The patient is currently being treated with bronchodilators, beta-blockers, and heparin. PAST MEDICAL HISTORY: Significant for CAD, status post CABG, hypertension, diabetes, dyslipidemia. CURRENT MEDICATIONS: Include prednisone, Spiriva, Toprol, DuoNeb, Neurontin, Lasix, Plavix, Lipitor. ALLERGIC: To CODEINE. FAMILY HISTORY: Negative for premature coronary artery disease. SOCIAL HISTORY: Negative for current smoking, history of drug abuse. REVIEW OF SYSTEMS: HEENT: Unremarkable. CARDIAC: As described above. RESPIRATORY: As described above. GI: Negative. GENITOURINARY: Negative. ALLERGY/IMMUNOLOGY: Negative. SKIN: Negative. MUSCULOSKELETAL: Significant for arthritis. PSYCHOSOCIAL: Negative. ENDOCRINE: Negative. CONSTITUTIONAL: Negative. ONCOLOGICAL: Negative. The rest of the system review is not relevant. ASSESSMENT: 1. Elevated troponin probably related to underlying pneumonia. 2. Coronary artery disease, status post coronary artery bypass grafting. 3. Chronic obstructive pulmonary disease. PLAN: I will obtain a 2D echo to assess LV function and wall motion. Leave her on heparin, medical therapy and will decide on further course of action based on her clinical progress. MMODL / IJN: [id number] /
[2020-01-07] MEDS ORDERED: INSULIN ASPART (NovoLOG) 100 UNIT/ML VIAL SQ ONE (11:43)
[2020-01-07] MEDS: ACETAMINOPHEN TAB 325 MG TAB PO PRN (12:07)
--- NOTE | 2020-01-07 12:09 | P.CNPUL ---
History of Present Illness Consult date: 01/07/20 Reason for consult: dyspnea History of present illness: A 69-year-old female patient is very well-known to me. The patient is known to have advanced COPD and chronic hypoxic respiratory failure, the patient's has an FEV1 of 53% of predicted Alan combination of Spiriva and Symbicort on outpatient basis and also maintained on oxygen. Comorbidities include obesity, hypertension, hyperlipidemia, diabetes mellitus, coronary artery disease with multivessel involvement requiring percutaneous vascularization and depressed and stenting and the patient is post coronary artery bypass surgery following an acute non-STEMI back in 2017. The patient underwent three-vessel bypass including a WELCH to the LAD. The patient is coming into hospital because of worsening shortness of breath. The patient was feeling weak and congested and more dyspneic in addition to increased swelling in lower extremities. No angina. No palpitations. No fever. No chills. No exposure to Covid 19. No chest History. Her white cell count of 15.7. D-dimer is at 0.67. Electrolytes showed a sodium of 134 with a potassium level of 3.8. Lactic acid was 2.4 and the blood sugar was 416. ProBNP level is 1117. LDH is at 685. CRP is less than 5 and troponins were 0.4 and 0.3 and 0.3 respectively 3. Patient was started on IV heparin. The patient's family of any chest pain. EKG showing a sinus rhythm with a left axis deviation and a left bundle branch block pattern. The computed tomography scan of the chest showed some limited groundglass changes probably related to underlying COPD. Localized area of a consolidation of the left upper lobe was seen and the patient has some coronary artery calcification and cardiomegaly. 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 Review of Systems Constitutional: Reports fatigue, Reports weakness Eyes: denies as per HPI, denies blurred vision, denies bulging eye, denies decreased vision, denies diplopia, denies discharge, denies dry eye, denies irritation, denies itching, denies pain, denies photophobia, denies loss of peripheral vision, denies loss of vision, denies tunnel vision/blind spots Ears: deny: decreased hearing, ear discharge, earache, tinnitus Ears, nose, mouth and throat: Reports as per HPI Breasts: absent: as per HPI, change in shape, gynecomastia, masses, nipple discharge, pain, skin changes, swelling Cardiovascular: Reports decreased exercise tolerance, Reports dyspnea on exertion, Reports leg edema, Reports shortness of breath Respiratory: Reports cough, Reports dyspnea Gastrointestinal: Reports as per HPI Genitourinary: Reports as per HPI Menstruation: Reports as per HPI Musculoskeletal: Reports as per HPI Musculoskeletal: bilateral: ankle swelling, absent: ankle pain, ankle stiffness Integumentary: Reports as per HPI Neurological: Reports as per HPI, Reports weakness Psychiatric: Reports as per HPI Endocrine: Reports as per HPI Hematologic/Lymphatic: Reports as per HPI Allergic/Immunologic: Reports as per HPI Past Medical History Past Medical History: Coronary Artery Disease (CAD), COPD, Diabetes Mellitus, Hyperlipidemia, Hypertension, Myocardial Infarction ([place]), Syncope Additional Past Medical History / Comment(s): NEBULIZER AT HOME, Last Myocardial Infarction Date:: 2010 History of Any Multi-Drug Resistant Organisms: None Reported Past Surgical History: Cholecystectomy, Coronary Bypass/CABG, Heart Catheterization With Stent Additional Past Surgical History / Comment(s): 1st stent in 2010, 3 more stents placed -about 2014, open heart surgery 2016. Past Anesthesia/Blood Transfusion Reactions: No Reported Reaction Additional Past Anesthesia/Blood Transfusion Reaction / Comment(s): Claustrophobic Date of Last Stent Placement:: 2014 Past Psychological History: No Psychological Hx Reported Smoking Status: Former smoker Past Alcohol Use History: None Reported Additional Past Alcohol Use History / Comment(s): STARTED SMOKING AT AGE 14- WORKED UP TO 3 [employer], QUIT 2010 Past Drug Use History: None Reported - Past Family History Father Family Medical History: Myocardial Infarction ([place]) Additional Family Medical History / Comment(s): STENT, OPEN HEART SURGERY Mother Additional Family Medical History / Comment(s): DEPRESSION Medications and Allergies Home Medications Medication Instructions Recorded Confirmed Type RX: Aspirin 81 mg PO DAILY 12/17/14 01/06/20 History RX: Furosemide [Lasix] 20 mg PO DAILY PRN 12/17/14 01/06/20 History RX: Insulin Lispro Protamin/Lispro 1 dose SQ AC-SUPPER 12/17/14 01/06/20 History [humaLOG Mix 75-25 Kwikpen] RX: Budesonide-Formot 160-4.5 Mcg 2 puff INHALATION RT-BID 04/18/15 01/06/20 History [Symbicort 160-4.5 Mcg Inhaler] RX: Insulin Lispro Protamin/Lispro 1 dose SQ AC-BRKFST 04/18/15 01/06/20 History [humaLOG Mix 75-25 Kwikpen] RX: Atorvastatin [Lipitor] 80 mg PO HS 11/24/16 01/06/20 History RX: Clopidogrel [Plavix] 75 mg PO DAILY #30 tab 12/04/16 01/06/20 Rx RX: Gabapentin [Neurontin] 300 mg PO DAILY 05/11/17 01/06/20 History RX: Metoprolol Succinate [Toprol 50 mg PO DAILY 08/30/18 01/06/20 History XL] RX: Tiotropium 18 Mcg/Puff 1 cap INHALATION RT-DAILY 08/30/18 01/06/20 History [Spiriva] RX: metFORMIN HCL [Glucophage] 850 mg PO TID 08/30/18 01/06/20 History RX: Insulin Glargine,Hum.rec.anlog 80 unit SQ HS 08/30/19 01/06/20 History [Lantus Solostar] RX: Nystatin 100,000 Unit/gm Powd 1 applic TOPICAL BID 08/30/19 01/06/20 History [Mycostatin Powder] RX: Budesonide [Pulmicort] 1 mg INHALATION RT-BID #60 nebu 09/03/19 01/06/20 Rx RX: Ipratropium-Albuterol Nebulize 3 ml INHALATION RT-QID #120 09/03/19 01/06/20 Rx [Duoneb 0.5 mg-3 mg/3 ml Soln] Albuterol Sulfate [Ventolin HFA] 1 - 2 puff INHALATION RT-QID PRN 01/06/20 01/06/20 History Benzonatate [Tessalon Perles] 100 mg PO TID PRN 01/06/20 01/06/20 History RX: Multivitamins, Thera 1 tab PO DAILY@1200 01/06/20 01/06/20 History [Multivitamin (formulary)] predniSONE [Deltasone] See Taper PO DAILY 01/06/20 01/06/20 History Allergies Allergy/AdvReac Type Severity Reaction Status Date / Time codeine Allergy Nausea & Verified 01/06/20 18:37 Vomiting Physical Exam Vitals: Vital Signs Temp Pulse Pulse Resp BP BP Pulse Ox 01/07/20 08:00 97.9 F 65 18 135/70 98 01/07/20 04:00 97.8 F 66 18 153/84 98 01/07/20 00:00 97.9 F 66 18 175/78 97 01/06/20 20:00 98 F 18 157/83 97 01/06/20 16:55 97.9 F 66 18 166/76 98 01/06/20 16:19 85 L 01/06/20 15:30 64 18 150/70 97 01/06/20 14:07 98.0 F 61 18 138/68 97 01/06/20 12:06 97.8 F 65 20 160/72 94 L Intake and Output 01/06/20 01/07/20 01/07/20 22:59 06:59 14:59 Intake Total 240 74.136 240 Output Total 250 300 Balance -10 74.136 -60 Intake: Intake, IV Titration 74.136 Amount Heparin Sod,Pork in 0.45% 74.136 NaCl 25,000 unit In 0.45 % NaCl 1 250ml.bag @ 10.5 UNITS/KG/HR 10.002 mls/ hr IV .Q24H [facility] Rx#: [id number] Oral 240 240 Output: Urine 250 300 Other: Voiding Method Bedside Commode # Voids 1 2 1 Weight 95.254 kg 109 kg Head exam was generally normal. Obese, comfortable with some cushingoid features. 9 acute respiratory distress at this point in time. There was no scleral icterus or corneal arcus. Mucous membranes were moist. Neck is short and supple and there is significant crowding of the posterior oropharynx. There is no goiter or neck masses. Lungs sounds are diminished bilaterally in the lung bases. No wheezes or rhonchi. The patient is a scar of previous thorac otomy with anterior chest area. Cardiac exam revealed the PMI to be normally situated and sized. The rhythm was regular and no extrasystoles were noted during several minutes of auscultation. The first and second heart sounds were normal and physiologic splitting of the second heart sound was noted. There were no murmurs, rubs, clicks, or gallops. Abdomen is obese and orders cannot be accurately palpated. There is no direct tenderness. No rebound tenderness. No guarding.Examination of the extremities revealed easily palpable radial, femoral and pedal pulses. There was no cyanosis, clubbing and there is extensive edema in lower extremities bilaterally. Results - Laboratory Findings CBC and BMP: 01/07/20 05:49 01/06/20 12:40 PT/INR, D-dimer PT 9.7 sec (9.0-12.0) 01/06/20 12:40 INR 0.9 (<1.2) 01/06/20 12:40 D-Dimer 0.67 mg/L FEU (<0.60) H 01/06/20 12:40 Abnormal lab findings: Abnormal Labs 01/06/20 01/06/20 01/06/20 12:40 12:40 12:40 WBC 15.7 H Neutrophils # 12.2 H Lymphocytes # APTT 20.5 L D-Dimer 0.67 H Sodium 134 L Chloride 97 L BUN 31 H Glucose 416 H POC Glucose (mg/dL) Plasma Lactic Acid Dennis Lactate Dehydrogenase 685 H Troponin I 01/06/20 01/06/20 01/06/20 12:40 12:40 16:50 WBC Neutrophils # Lymphocytes # APTT D-Dimer Sodium Chloride BUN Glucose POC Glucose (mg/dL) 469 H Plasma Lactic Acid Dennis 2.4 H* Lactate Dehydrogenase Troponin I 0.480 H* 01/06/20 01/06/20 01/07/20 18:35 20:59 00:39 WBC Neutrophils # Lymphocytes # APTT D-Dimer Sodium Chloride BUN Glucose POC Glucose (mg/dL) 442 H Plasma Lactic Acid Dennis Lactate Dehydrogenase Troponin I 0.351 H* 0.289 H* 01/07/20 01/07/20 01/07/20 05:49 05:49 06:30 WBC 12.1 H Neutrophils # 10.6 H Lymphocytes # 0.8 L APTT 43.8 H D-Dimer Sodium Chloride BUN Glucose POC Glucose (mg/dL) 376 H Plasma Lactic Acid Dennis Lactate Dehydrogenase Troponin I 01/07/20 11:27 WBC Neutrophils # Lymphocytes # APTT D-Dimer Sodium Chloride BUN Glucose POC Glucose (mg/dL) 487 H Plasma Lactic Acid Dennis Lactate Dehydrogenase Troponin I - Diagnostic Findings Chest x-ray: image reviewed CT scan - chest: image reviewed Assessment and Plan Plan: 1 shortness of breath, multifactorial. The patient has advanced COPD and at the same time she is currently an acute COPD exacerbation a component of CHF as she has developed significant edema in lower extremities bilaterally. Doubt Covid 19 infection. Doubt superimposed pneumonia at this point in time. 2 morbid obesity with a BMI of 42 3 multivessel coronary artery disease with previous r evascularization/angioplasty/stenting and previous coronary artery bypass surgery performed in 2018. Currently the patient has limited troponin leak without any acute EKG abnormalities currently on IV heparin. Preop ejection fraction back in 2018 was within normal limits 4 advanced COPD with an FEV1 of 53% of predicted 5 increased lower extremity edema 6 hypertension 7 hyperlipidemia 8 diabetes mellitus maintained on Lantus insulin addition to metformin outpatient basis 9 troponin leak secondary to above, acute coronary event is felt to be less likely. Plan Start the patient on IV Lasix 40 mg every 12 hours Echocardiogram to assess LV function Levaquin 500 mg by mouth daily Awaiting Covid 19 nasopharyngeal swab Resume all medications Cardiology consultation We'll continue to follow
[2020-01-07] MEDS: HEPARIN SOD,PORK IN 0.45% NACL 25,000 UNIT in 0.45% NACL 1 250ML.BAG IV SCH (13:44)
[2020-01-07 14:54] LABS: Hemoglobin A1C 11.6 % (4.0-6.0)
[2020-01-07] MEDS ORDERED: AZITHROMYCIN 500 MG in SODIUM CHLORIDE 0.9% 250 ML IVPB SCH (16:00)
[2020-01-07 16:38] LABS: Glucose,Whole Blood 352 mg/dL (75-99)
[2020-01-07 20:57] LABS: Glucose,Whole Blood 164 mg/dL (75-99)
[2020-01-07] MEDS: INSULIN DETEMIR (LEVEMIR) 100 UNIT/ML SYR SQ SCH (21:16)
[2020-01-07] MEDS: ATORVASTATIN 80 MG TAB PO SCH (21:17)
[2020-01-07] MEDS: FUROSEMIDE 10 MG/ML 4 ML VIAL IV SCH (21:17)
[2020-01-08] MEDS: ACETAMINOPHEN TAB 325 MG TAB PO PRN ×2 (03:26→11:06)
[2020-01-08 06:26] LABS: Glucose,Whole Blood 181 mg/dL (75-99)
[2020-01-08 06:42] LABS: Basophils % (A) 0 %; Eosinophils # (A) 0.3 k/uL (0-0.7); Eosinophils % (A) 2 %; HCT 39.2 % (34.0-46.0); HGB 12.5 gm/dL (11.4-16.0); Hypochromasia Slight; Lymphocytes # (A) 2.7 k/uL (1.0-4.8); Lymphocytes % (A) 18 %; MCH 31.3 pg (25.0-35.0); MCHC 31.9 g/dL (31.0-37.0); MCV 98.3 fL (80.0-100.0); Mean Platelet Volume 7.5; Monocytes # (A) 0.9 k/uL (0-1.0); Monocytes % (A) 6 %; Neutrophils # (A) 11.1 k/uL (1.3-7.7); Neutrophils % (A) 73 %; Platelet Count 261 k/uL (150-450); RBC 3.99 m/uL (3.80-5.40); RDW 13.8 % (11.5-15.5); WBC 15.2 k/uL (3.8-10.6)
[2020-01-08] MEDS: INSULIN ASPART (NovoLOG) 100 UNIT/ML VIAL SQ SCH ×6 (06:59→20:42)
[2020-01-08] MEDS: ALBUTEROL HFA INHALER INHALATION PRN ×4 (07:46→19:26)
[2020-01-08] MEDS: FLUTICASONE 220 MCG INHALER INHALATION SCH ×2 (07:46→19:26)
--- NOTE | 2020-01-08 08:18 | ECHOF ---
Referral Reason:shortness of breath MEASUREMENTS -------- HEIGHT: 160.0 cm WEIGHT: 108.9 kg BP: 135/70 RVIDd: 1.8 cm (< 3.3) IVSd: 1.3 cm (0.6 - 1.1) LVIDd: 5.3 cm (3.9 - 5.3) LVPWd: 1.6 cm (0.6 - 1.1) IVSs: 1.7 cm LVIDs: 3.1 cm LVPWs: 2.4 cm Ao Diam: 2.7 cm (2.0 - 3.7) LA Diam: 3.6 cm (2.7 - 3.8) MV EXCURSION: 10.542 mm (> 18.000) MV EF SLOPE: 63 mm/s (70 - 150) EPSS: 0.5 cm MV E Syed: 1.07 m/s MV DecT: 351 ms MV A Syed: 0.97 m/s MV E/A Ratio: 1.10 RAP: 5.00 mmHg RVSP: 20.86 mmHg FINDINGS -------- Resting bradycardia (HR<60bpm). This was a technically difficult study with suboptimal views. The left ventricular size is normal. There is moderate concentric left ventricular hypertrophy. O verall left ventricular systolic function is low-normal with, an EF between 50 - 55 %. The right ventricle is normal in size. The left atrial size is normal. The right atrial size is normal. Lumason used Unable to visualize the septum. The aortic valve is trileaflet and appears structurally normal. The mitral valve is normal. There is trace mitral regurgitation. The tricuspid valve appears structurally normal. Trace tricuspid regurgitation present. Right azucena tricular systolic pressure is normal at < 35 mmHg. The pulmonic valve was not well visualized. The aortic root size is normal. IVC Not well visulized. There is no pericardial effusion. CONCLUSIONS -------- 1. Resting bradycardia (HR<60bpm). 2. This was a technically difficult study with suboptimal views. 3. The left ventricular size is normal. 4. There is moderate concentric left ventricular hypertrophy. 5. The right ventricle is normal in size. 6. The left atrial size is normal. 7. The right atrial size is normal. 8. Lumason used 9. Unable to visualize the septum. 10. The aortic valve is trileaflet and appears structurally normal. 11. The mitral valve is normal. 12. There is trace mitral regurgitation. 13. The tricuspid valve appears structurally normal. 14. Trace tricuspid regurgitation present. 15. Right ventricular systolic pressure is normal at < 35 mmHg. 16. The pulmonic valve was not well visualized. 17. The aortic root size is normal. 18. IVC Not well visulized. 19. There is no pericardial effusion. [employer]DER: Maddy Cabral RDCS
[2020-01-08] MEDS: HEPARIN SODIUM,PORCINE 5,000 UNIT/ML 1 ML VIAL IV PRN (08:28)
[2020-01-08] MEDS: HEPARIN SOD,PORK IN 0.45% NACL 25,000 UNIT in 0.45% NACL 1 250ML.BAG IV SCH (08:41)
[2020-01-08] MEDS: METOPROLOL SUCCINATE (ER) 50 MG TAB.ER.24H PO SCH (09:36)
[2020-01-08] MEDS: FUROSEMIDE 10 MG/ML 4 ML VIAL IV SCH ×2 (09:36→20:41)
[2020-01-08] MEDS: ASPIRIN 325 MG TAB PO SCH (09:36)
[2020-01-08] MEDS: CLOPIDOGREL 75 MG TAB PO SCH (09:36)
--- NOTE | 2020-01-08 09:50 | P.PN ---
Subjective Progress Note Date: 01/07/20 Principal diagnosis: acute COPD exacerbation Bilateral lower extremity edema Elevated troponin level Patient is a 69-year-old female patient is a 69-year-old female with a known history of asthma, hypertension, diabetes type 2 insulin-dependent, hyperlipidemia, history of ID, coronary artery disease with history of stent placement in 2010 and 2014, coronary artery bypass graft in 2017, previous history of smoking came to ER with complaints of worsening shortness of breath for the past 1 week. Patient was seen in the urgent care facility and was given IM steroids and started on oral steroids. Patient continues to have shortness of breath and exertional dyspnea along with chest pain. Patient does have home oxygen but does not wear oxygen all the time. Patient was hypoxic with pulse ox in the 89% on room air. Patient has been afebrile. Denied any subjective fevers or chills at home. Patient tried using nebulizations at home. Chest x-ray showed cardiomegaly correlate for interstitial pneumonitis including viral pneumonitis versus venous congestion. Stable prominent upper mediastinum. Underlying mass or adenopathy in the differential. Denied any recent travel exposure to COVID-19. EKG showed sinus rhythm with first-degree AV block. CT angiogram of the chest showed limited exam due to severe motion. No diagnostic evidence of pulmonary embolism. Diffuse groundglass changes can be associated with a pneumonitis. Localized area of consolidation left upper lobe could be on the basis of developing pneumonia correlate clinically and follow-up evaluation to exclude underlying neoplasm. Coronary artery calcification and cardiomegaly. 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 Laboratory data showed WBC 15.7, d-dimer 0.67, sodium 134, potassium 3.8, chloride 97, blood sugar was 416 on admission, lactic acid 2.4 LDH 685, CRP less than 5 proBNP 1170 Troponin 0 0.480, 0.351 and 0.351 01/07/2020 Patient says that her breathing is slightly better. Still having bilateral lo wer extremity significant swelling. Started on IVLasix 40 mg twice daily. 2-D echocardiogram was ordered. Pulmonary and cardiology is following. Troponin level is trending down. No complaints of chest pain. No fever no chills. Patient is being continued on breathing treatments and antibiotics in the form of Levaquin. current medications reviewed. Objective - Vital Signs Vital signs: Vital Signs Temp 98.6 F 01/07/20 20:00 Pulse 63 01/07/20 20:00 Resp 16 01/07/20 20:00 BP 142/76 01/07/20 20:00 Pulse Ox 98 01/07/20 20:00 Intake & Output 01/07/20 01/07/20 01/08/20 06:59 18:59 06:59 Intake Total 74.136 995.864 Output Total 300 Balance 74.136 695.864 Weight 109 kg Intake: Intake, IV Titration 74.136 275.864 Amount Heparin Sod,Pork in 0.45% 74.136 175.864 NaCl 25,000 unit In 0.45 % NaCl 1 250ml.bag @ 10.5 UNITS/KG/HR 10.002 mls/ hr IV .Q24H [facility] Rx#: [id number] cefTRIAXone 1 gm In 100 Sodium Chloride 0.9% 50 ml @ 100 mls/hr IVPB Q12HR [facility] Rx#:[id number] Oral 720 Output: Urine 300 Other: # Voids 2 2 - Exam PHYSICAL EXAMINATION: Patient is lying in the bed comfortably, no acute distress, awake alert and oriented.. HEENT: Normocephalic. Neck is supple. Pupils reactive. Nostrils clear. Oral cavity is moist. Ears reveal no drainage. Neck reveals no JVD, carotid bruits, or thyromegaly. CHEST EXAMINATION: Trachea is central. Symmetrical expansion. bilateral diminished air entry. No wheezing. Nonlabored breathing.. CARDIAC: Normal S1, S2 with no gallops. No murmurs ABDOMEN: Soft. Bowel sounds normal. No organomegaly. No abdominal bruits. Extremities: 2+ bilateral pedal edema. No clubbing or cyanosis Neurologically awake, alert, oriented x3 with well-coordinated movements. No focal deficits noted Skin: No rash or skin lesions. Psychiatric: Coperative. Nonsuicidal Musculoskeletal: No joint swelling or deformity. Normal range of motion. - Labs CBC & Chem 7: 01/08/20 05:58 01/06/20 12:40 Labs: Abnormal Lab Results - Last 24 Hours (Table) 01/07/20 01/07/20 01/07/20 Range/Units 00:39 05:49 05:49 WBC 12.1 H (3.8-10.6) k/uL Neutrophils # 10.6 H (1.3-7.7) k/uL Lymphocytes # 0.8 L (1.0-4.8) k/uL APTT (22.0-30.0) sec POC Glucose (mg/dL) (75-99) mg/dL Hemoglobin A1c 11.6 H (4.0-6.0) % Troponin I 0.289 H* (0.000-0.034) ng/mL 01/07/20 01/07/20 01/07/20 Range/Units 05:49 06:30 11:27 WBC (3.8-10.6) k/uL Neutrophils # (1.3-7.7) k/uL Lymphocytes # (1.0-4.8) k/uL APTT 43.8 H (22.0-30.0) sec POC Glucose (mg/dL) 376 H 487 H (75-99) mg/dL Hemoglobin A1c (4.0-6.0) % Troponin I (0.000-0.034) ng/mL 01/07/20 01/07/20 01/07/20 Range/Units 16:01 16:35 20:56 WBC (3.8-10.6) k/uL Neutrophils # (1.3-7.7) k/uL Lymphocytes # (1.0-4.8) k/uL APTT (22.0-30.0) sec POC Glucose (mg/dL) 352 H 164 H (75-99) mg/dL Hemoglobin A1c (4.0-6.0) % Troponin I 0.283 H* (0.000-0.034) ng/mL Microbiology - Last 24 Hours (Table) 01/06/20 12:40 Blood Culture - Preliminary Blood No Growth after 24 hours Assessment and Plan Assessment: Acute COPD exacerbation. failed out pt. steroid course.possible tracheobronchitis. Acute hypoxic respiratory failure on admission with pulse ox 89%. r/o COVID. Elevated troponin level due to non-ST elevated ID Bilateral lower extremity edema. Without any other evidence of CHF. BNP 1170 Hyperglycemia with uncontrolled diabetes type 2. Steroids contributing. Left upper lobe consolidation with possible pneumonia. Underlying malignancy cannot be excluded. Coronary artery disease with history of stent placement and CABG Previous history of smoking Hypertension Hyperlipidemia History of ID DVT prophylaxis patient is already on heparin drip Plan: Patient will be continued antibiotics,and breathing treatments.was given 1 dose of IV steroids in the ER. started on heparin drip due to elevated troponin levels. Serial troponins trending downand telemetry monitoring. Continue with oxygen therapy. started on IV Lasix. Continue with home insulin dose and adjust as needed. Pulmonary and cardiology is following.2-D echo cardiac was ordered. Further recommendations based on the clinical course. Time with Patient: Greater than 30
[2020-01-08] MEDS: LEVOFLOXACIN 500 MG TAB PO SCH (11:05)
--- NOTE | 2020-01-08 11:22 | P.PN ---
Subjective Progress Note Date: 01/08/20 Principal diagnosis: Shortness of breath, multifactorial, related to advanced COPD exacerbation, with a component of CHF A 69-year-old female patient is very well-known to me. The patient is known to have advanced COPD and chronic hypoxic respiratory failure, the patient's has an FEV1 of 53% of predicted Alan combination of Spiriva and Symbicort on outpatient basis and also maintained on oxygen. Comorbidities include obesity, hypertension, hyperlipidemia, diabetes mellitus, coronary artery disease with multivessel involvement requiring percutaneous vascularization and depressed and stenting and the patient is post coronary artery bypass surgery following an acute non-STEMI back in 2017. The patient underwent three-vessel bypass including a WELCH to the LAD. The patient is coming into hospital because of worsening shortness of breath. The patient was feeling weak and congested and more dyspneic in addition to increased swelling in lower extremities. No ang bette. No palpitations. No fever. No chills. No exposure to Covid 19. No chest History. Her white cell count of 15.7. D-dimer is at 0.67. Electrolytes showed a sodium of 134 with a potassium level of 3.8. Lactic acid was 2.4 and the blood sugar was 416. ProBNP level is 1117. LDH is at 685. CRP is less than 5 and troponins were 0.4 and 0.3 and 0.3 respectively 3. Patient was started on IV heparin. The patient's family of any chest pain. EKG showing a sinus rhythm with a left axis deviation and a left bundle branch block pattern. The computed tomography scan of the chest showed some limited groundglass changes probably related to underlying COPD. Localized area of a consolidation of the left upper lobe was seen and the patient has some coronary artery calcification and cardiomegaly. 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 On 01/08/2020 patient seen in follow-up on selective care unit, she is diuresing, she is in -500 mL fluid balance, she is breathing easier today, still has some residual swelling in bilateral lower extremities but it does seem to be improved on today's exam, lung sounds reveal bibasilar crackles, no significant rhonchi or wheezing, today's labs have been reviewed, showing white blood cell count of 15.2, hemoglobin of 12.5, pro calcitonin was negative at 0.07, proBNP was 1170, coronavirus PCR was negative. Blood cultures were negative. Echocardiogram was completed showing preserved left ventricular systolic function with EF of 50-55%. Trace mitral regurg, no evidence of pulmonary hypertension patient remains on heparin infusion, cardiology is following, she denied any chest pain Objective - Vital Signs Vital signs: Vital Signs Temp 98.0 F 01/08/20 08:00 Pulse 62 01/08/20 08:00 Resp 18 01/08/20 08:00 BP 145/55 01/08/20 08:00 Pulse Ox 99 01/08/20 08:00 Intake & Output 01/07/20 01/08/20 01/08/20 18:59 06:59 18:59 Intake Total 995.864 0 500.817 Output Total 300 1200 Balance 695.864 -1200 500.817 Weight 108 kg Intake: Intake, IV Titration 275.864 260.817 Amount Heparin Sod,Pork in 0.45% 175.864 260.817 NaCl 25,000 unit In 0.45 % NaCl 1 250ml.bag @ 10.5 UNITS/KG/HR 10.002 mls/ hr IV .Q24H [facility] Rx#: [id number] cefTRIAXone 1 gm In 100 Sodium Chloride 0.9% 50 ml @ 100 mls/hr IVPB Q12HR K[facility]EN Rx#:[id number] Oral 720 0 240 Output: Urine 300 1200 Other: # Voids 2 3 # Bowel Movements 1 - Exam GENERAL EXAM: Alert, very pleasant, 69-year-old obese white female, on 3 L of oxygen and the pulse ox 99%, comfortable in no apparent distress. HEAD: Normocephalic/atraumatic. EYES: Normal reaction of pupils, equal size. Conjunctiva pink, sclera white. NOSE: Clear with pink turbinates. THROAT: No erythema or exudates. NECK: No masses, no JVD, no thyroid enlargement, no adenopathy. CHEST: No chest wall deformity. Symmetrical expansion. LUNGS: Equal air entry with minimal basilar crackles, but no wheeze, rhonchi or dullness. CVS: Regular rate and rhythm, normal S1 and S2, no gallops, no murmurs, no rubs ABDOMEN: Soft, nontender. No hepatosplenomegaly, normal bowel sounds, no guarding or rigidity. EXTREMITIES: No clubbing, no edema, no cyanosis, 2+ pulses and upper and lower extremities. MUSCULOSKELETAL: Muscle strength and tone normal. SPINE: No scoliosis or deformity SKIN: No rashes CENTRAL NERVOUS SYSTEM: Alert and oriented -3. No focal deficits, tone is normal in all 4 extremities. PSYCHIATRIC: Alert and oriented -3. Appropriate affect. Intact judgment and insight. - Labs CBC & Chem 7: 01/08/20 05:58 01/06/20 12:40 Labs: Abnormal Lab Results - Last 24 Hours (Table) 01/07/20 01/07/20 01/07/20 Range/Units 05:49 11:27 16:01 WBC (3.8-10.6) k/uL Neutrophils # (1.3-7.7) k/uL APTT (22.0-30.0) sec POC Glucose (mg/dL) 487 H (75-99) mg/dL Hemoglobin A1c 11.6 H (4.0-6.0) % Troponin I 0.283 H* (0.000-0.034) ng/mL 01/07/20 01/07/20 01/08/20 Range/Units 16:35 20:56 05:58 WBC 15.2 H (3.8-10.6) k/uL Neutrophils # 11.1 H (1.3-7.7) k/uL APTT (22.0-30.0) sec POC Glucose (mg/dL) 352 H 164 H (75-99) mg/dL Hemoglobin A1c (4.0-6.0) % Troponin I (0.000-0.034) ng/mL 01/08/20 01/08/20 Range/Units 05:58 06:25 WBC (3.8-10.6) k/uL Neutrophils # (1.3-7.7) k/uL APTT 35.9 H (22.0-30.0) sec POC Glucose (mg/dL) 181 H (75-99) mg/dL Hemoglobin A1c (4.0-6.0) % Troponin I (0.000-0.034) ng/mL Microbiology - Last 24 Hours (Table) 01/06/20 12:40 Blood Culture - Preliminary Blood No Growth after 24 hours Assessment and Plan Plan: Assessment: 1 shortness of breath, multifactorial. The patient has advanced COPD and at the same time she is currently an acute COPD exacerbation a component of CHF as she has developed significant edema in lower extremities bilaterally. Covid 19 was negative, pro-calcitonin level was negative ruling out possibility of pneumonia 2 morbid obesity with a BMI of 42 3 multivessel coronary artery disease with previous revascularization/angioplasty/stenting and previous coronary artery bypass surgery performed in 2018. Currently the patient has limited troponin leak without any acute EKG abnormalities currently on IV heparin. Preop ejection fraction back in 2018 was within normal limits 4 advanced COPD with an FEV1 of 53% of predicted 5 increased lower extremity edema 6 hypertension 7 hyperlipidemia 8 diabetes mellitus maintained on Lantus insulin addition to metformin outpatient basis 9 troponin leak secondary to above, acute coronary event is felt to be less likely. Plan: Continue the diuretics, echocardiogram results have been reviewed, patient is breathing easier today, continue following electrolytes and renal profile, Covid 19 was negative, pro-calcitonin level was negative, we'll discontinue the Levaquin. Continue with inhalers. Continue to follow I performed a history & physical examination of the patient and discussed their management with my nurse practitioner, Raine Arriaga. I reviewed the nurse practitioner's note and agree with the documented findings and plan of care. Lung sounds are positive for minimal bibasilar crackles. The findings and the impression was discussed with the patient. I attest to the documentation by the nurse practitioner. Time with Patient: Less than 30
[2020-01-08 11:33] LABS: Glucose,Whole Blood 256 mg/dL (75-99)
[2020-01-08 13:23] VITALS: BMI 42.1
--- NOTE | 2020-01-08 13:36 | P.PN ---
Subjective Progress Note Date: 01/08/20 This is a 69-year-old female patient with history of diabetes, hypertension, hyperlipidemia, advanced COPD, chronic hypoxic respiratory failure, obesity, coronary artery disease with prior PCI. Patient also has prior bypass surgery. She presented to the hospital on this occasion because of symptoms of worsening shortness of breath. She also noticed swelling in her bilateral lower extremities. Patient was also noted to have abnormality in troponin, which was felt not to reflect acute coronary syndrome but was likely secondary to pneumonia. She also was initiated on IV Lasix, diuresed well through the night last night, and a negative balance this morning. Continues to have some shortness of breath however she states it's better than yesterday. She also continues to have some residual edema in her lower extremities. White blood cell count 15.2, hemoglobin 12.5, BNP level MCLXX and mcgee virus negative. Echocardiogram with Doppler study revealed a preserved left ventricular systolic function, 50-55%. Objective - Vital Signs Vital signs: Vital Signs Temp 97.9 F 01/08/20 11:49 Pulse 57 L 01/08/20 11:49 Resp 18 01/08/20 11:49 BP 129/73 01/08/20 11:49 Pulse Ox 98 01/08/20 11:49 Intake & Output 01/07/20 01/08/20 01/08/20 18:59 06:59 18:59 Intake Total 995.864 0 500.817 Output Total 300 1200 Balance 695.864 -1200 500.817 Weight 108 kg 108 kg Intake: Intake, IV Titration 275.864 260.817 Amount Heparin Sod,Pork in 0.45% 175.864 260.817 NaCl 25,000 unit In 0.45 % NaCl 1 250ml.bag @ 10.5 UNITS/KG/HR 10.002 mls/ hr IV .Q24H [facility] Rx#: [id number] cefTRIAXone 1 gm In 100 Sodium Chloride 0.9% 50 ml @ 100 mls/hr IVPB Q12HR [facility] Rx#:[id number] Oral 720 0 240 Output: Urine 300 1200 Other: # Voids 2 3 1 # Bowel Movements 1 - Exam GENERAL EXAM: Alert, very pleasant, 69-year-old obese white female, on 3 L of oxygen and the pulse ox 99%, comfortable in no apparent distress. HEAD: Normocephalic/atraumatic. EYES: Normal reaction of pupils, equal size. Conjunctiva pink, sclera white. NOSE: Clear with pink turbinates. THROAT: No erythema or exudates. NECK: No masses, no JVD, no thyroid enlargement, no adenopathy. CHEST: No chest wall deformity. Symmetrical expansion. LUNGS: Equal air entry with minimal basilar crackles, but no wheeze, rhonchi or dullness. CVS: Regular rate and rhythm, normal S1 and S2, no gallops, no murmurs, no rubs ABDOMEN: Soft, nontender. No hepatosplenomegaly, normal bowel sounds, no guarding or rigidity. EXTREMITIES: No clubbing, no edema, no cyanosis, 2+ pulses and upper and lower extremities. MUSCULOSKELETAL: Muscle strength and tone normal. SPINE: No scoliosis or deformity SKIN: No rashes CENTRAL NERVOUS SYSTEM: Alert and oriented -3. No focal deficits, tone is normal in all 4 extremities. PSYCHIATRIC: Alert and oriented -3. Appropriate affect. Intact judgment and insight. - Labs CBC & Chem 7: 01/08/20 05:58 01/06/20 12:40 Labs: Abnormal Lab Results - Last 24 Hours (Table) 01/07/20 01/07/20 01/07/20 Range/Units 05:49 16:01 16:35 WBC (3.8-10.6) k/uL Neutrophils # (1.3-7.7) k/uL APTT (22.0-30.0) sec POC Glucose (mg/dL) 352 H (75-99) mg/dL Hemoglobin A1c 11.6 H (4.0-6.0) % Troponin I 0.283 H* (0.000-0.034) ng/mL 01/07/20 01/08/20 01/08/20 Range/Units 20:56 05:58 05:58 WBC 15.2 H (3.8-10.6) k/uL Neutrophils # 11.1 H (1.3-7.7) k/uL APTT 35.9 H (22.0-30.0) sec POC Glucose (mg/dL) 164 H (75-99) mg/dL Hemoglobin A1c (4.0-6.0) % Troponin I (0.000-0.034) ng/mL 01/08/20 01/08/20 Range/Units 06:25 11:32 WBC (3.8-10.6) k/uL Neutrophils # (1.3-7.7) k/uL APTT (22.0-30.0) sec POC Glucose (mg/dL) 181 H 256 H (75-99) mg/dL Hemoglobin A1c (4.0-6.0) % Troponin I (0.000-0.034) ng/mL Microbiology - Last 24 Hours (Table) 01/06/20 12:40 Blood Culture - Preliminary Blood No Growth after 24 hours Assessment and Plan Plan: Assessment and plan #1 symptoms of shortness of breath, likely secondary to COPD exacerbation and known advanced COPD, mild congestive heart failure, diastolic acute on chronic, possible pneumonia. #2 morbid obesity #3 coronary artery disease with prior PCI and bypass #4 hypertension #5 hyperlipidemia #6 diabetes #7 abnormality in troponin, not felt to be consistent with acute coronary syndrome, likely secondary to hypoxia and possible pneumonia. LV function by echo is normal Plan We will continue the patient on IV diuretics, monitoring intake and output along with daily weights and daily lytes BUN and creatinine. Repeat chest x-ray tomorrow. DNP note has been reviewed, I agree with a documented findings and plan of care. Patient was seen and examined.
--- NOTE | 2020-01-08 14:19 | P.PN ---
Subjective Progress Note Date: 01/08/20 Principal diagnosis: acute COPD exacerbation Bilateral lower extremity edema Elevated troponin level Patient is a 69-year-old female patient is a 69-year-old female with a known h istory of asthma, hypertension, diabetes type 2 insulin-dependent, hyperlipidemia, history of IL, coronary artery disease with history of stent placement in 2010 and 2014, coronary artery bypass graft in 2017, previous history of smoking came to ER with complaints of worsening shortness of breath for the past 1 week. Patient was seen in the urgent care facility and was given IM steroids and started on oral steroids. Patient continues to have shortness of breath and exertional dyspnea along with chest pain. Patient does have home oxygen but does not wear oxygen all the time. Patient was hypoxic with pulse ox in the 89% on room air. Patient has been afebrile. Denied any subjective fevers or chills at home. Patient tried using nebulizations at home. Chest x-ray showed cardiomegaly correlate for interstitial pneumonitis including viral pneumonitis versus venous congestion. Stable prominent upper mediastinum. Underlying mass or adenopathy in the differential. Denied any recent travel exposure to COVID-19. EKG showed sinus rhythm with first-degree AV block. CT angiogram of the chest showed limited exam due to severe motion. No diagnostic evidence of pulmonary embolism. Diffuse groundglass changes can be associated with a pneumonitis. Localized area of consolidation left upper lobe could be on the basis of developing pneumonia correlate clinically and follow-up evaluation to exclude underlying neoplasm. Coronary artery calcification and cardiomegaly. 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 Laboratory data showed WBC 15.7, d-dimer 0.67, sodium 134, potassium 3.8, chloride 97, blood sugar was 416 on admission, lactic acid 2.4 LDH 685, CRP less than 5 proBNP 1170 Troponin 0 0.480, 0.351 and 0.351 01/07/2020 Patient says that her breathing is slightly better. Still having bilateral lower extremity significant swelling. Started on IVLasix 40 mg twice daily. 2- D echocardiogram was ordered. Pulmonary and cardiology is following. Troponin level is trending down. No complaints of chest pain. No fever no chills. Patient is being continued on breathing treatments and antibiotics in the form of Levaquin. current medications reviewed. 01/08/2020 Patient is seen and evaluated and follow-up stating that her breathing has gotten slightly better although continues to have bilateral lower extremity swelling and is maintained on IV Lasix. Patient will continue with IV Lasix at this time. Underwent echo showing moderate concentric left ventricular hypertrophy with overall left ventricular systolic function is low to normal with an EF of 50-55%. Pulmonary and cardiology following. Patient is currently maintained on 3 L of oxygen via nasal cannula and states she wears it occasionally at home and shares with her . Patient is continued on inhalers and will continue at this time. Heparin drip has been discontinued. Currently no reports of chest pain or palpitations. Patient is afebrile. No reports of nausea or vomiting and patient is tolerating diet. Patient is getting up on her own to the bedside commode and gets slightly short of breath with exertion. Will continue to monitor closely. Objective - Vital Signs Vital signs: Vital Signs Temp 98.0 F 01/08/20 08:00 Pulse 62 01/08/20 08:00 Resp 18 01/08/20 08:00 BP 145/55 01/08/20 08:00 Pulse Ox 99 01/08/20 08:00 Intake & Output 01/07/20 01/08/20 01/08/20 18:59 06:59 18:59 Intake Total 995.864 0 500.817 Output Total 300 1200 Balance 695.864 -1200 500.817 Weight 108 kg Intake: Intake, IV Titration 275.864 260.817 Amount Heparin Sod,Pork in 0.45% 175.864 260.817 NaCl 25,000 unit In 0.45 % NaCl 1 250ml.bag @ 10.5 UNITS/KG/HR 10.002 mls/ hr IV .Q24H [facility] Rx#: [id number] cefTRIAXone 1 gm In 100 Sodium Chloride 0.9% 50 ml @ 100 mls/hr IVPB Q12HR [facility] Rx#:[id number] Oral 720 0 240 Output: Urine 300 1200 Other: # Voids 2 3 # Bowel Movements 1 - Exam Patient is lying in the bed comfortably, no acute distress, awake alert and oriented.. HEENT: Normocephalic. Neck is supple. Pupils reactive. Nostrils clear. Oral cavity is moist. Ears reveal no drainage. Neck reveals no JVD, carotid bruits, or thyromegaly. CHEST EXAMINATION: Trachea is central. Symmetrical expansion. bilateral diminished air entry. No wheezing. Nonlabored breathing.. CARDIAC: Normal S1, S2 with no gallops. No murmurs ABDOMEN: Soft. Bowel sounds normal. No organomegaly. No abdominal bruits. Extremities: 2+ bilateral pedal edema. No clubbing or cyanosis Neurologically awake, alert, oriented x3 with well-coordinated movements. No focal deficits noted Skin: No rash or skin lesions. Psychiatric: Cooperative. Non-suicidal Musculoskeletal: No joint swelling or deformity. Normal range of motion. - Labs CBC & Chem 7: 01/08/20 05:58 01/06/20 12:40 Labs: Abnormal Lab Results - Last 24 Hours (Table) 01/07/20 01/07/20 01/07/20 Range/Units 05:49 16:01 16:35 WBC (3.8-10.6) k/uL Neutrophils # (1.3-7.7) k/uL APTT (22.0-30.0) sec POC Glucose (mg/dL) 352 H (75-99) mg/dL Hemoglobin A1c 11.6 H (4.0-6.0) % Troponin I 0.283 H* (0.000-0.034) ng/mL 01/07/20 01/08/20 01/08/20 Range/Units 20:56 05:58 05:58 WBC 15.2 H (3.8-10.6) k/uL Neutrophils # 11.1 H (1.3-7.7) k/uL APTT 35.9 H (22.0-30.0) sec POC Glucose (mg/dL) 164 H (75-99) mg/dL Hemoglobin A1c (4.0-6.0) % Troponin I (0.000-0.034) ng/mL 01/08/20 01/08/20 Range/Units 06:25 11:32 WBC (3.8-10.6) k/uL Neutrophils # (1.3-7.7) k/uL APTT (22.0-30.0) sec POC Glucose (mg/dL) 181 H 256 H (75-99) mg/dL Hemoglobin A1c (4.0-6.0) % Troponin I (0.000-0.034) ng/mL Microbiology - Last 24 Hours (Table) 01/06/20 12:40 Blood Culture - Preliminary Blood No Growth after 24 hours Assessment and Plan Assessment: Acute COPD exacerbation. failed out pt. steroid course.possible tracheob ronchitis. Acute hypoxic respiratory failure on admission with pulse ox 89%. r/o COVID. Covid 19 testing negative, ruled out Elevated troponin level due to non-ST elevated IL Bilateral lower extremity edema. Without any other evidence of CHF. BNP 1170 Hyperglycemia with uncontrolled diabetes type 2. Steroids contributing. Left upper lobe consolidation with possible pneumonia. Underlying malignancy cannot be excluded. Coronary artery disease with history of stent placement and CABG Previous history of smoking Hypertension Hyperlipidemia History of IL DVT prophylaxis patient is already on heparin drip Plan: Patient will be breathing treatments. heparin drip discontinued as troponins ar e trending down. Pulmonary and cardiology following. Continue with oxygen therapy. started on IV Lasix. To continue for an additional 24 hours. Will repeat a.m. labs. Continue with home insulin dose and adjust as needed. Further recommendations based on the clinical course.
[2020-01-08] MEDS: HEPARIN SODIUM,PORCINE 5,000 UNIT/ML 1 ML VIAL SQ SCH (15:47)
[2020-01-08 16:18] LABS: Glucose,Whole Blood 408 mg/dL (75-99)
[2020-01-08 20:40] LABS: Glucose,Whole Blood 290 mg/dL (75-99)
[2020-01-08] MEDS: ATORVASTATIN 80 MG TAB PO SCH (20:42)
[2020-01-08] MEDS: INSULIN DETEMIR (LEVEMIR) 100 UNIT/ML SYR SQ SCH (20:42)
[2020-01-09] MEDS: HEPARIN SODIUM,PORCINE 5,000 UNIT/ML 1 ML VIAL SQ SCH ×2 (01:14→08:27)
[2020-01-09 05:54] LABS: Glucose,Whole Blood 241 mg/dL (75-99)
[2020-01-09 06:57] LABS: Glucose,Whole Blood 220 mg/dL (75-99)
[2020-01-09] MEDS: ALBUTEROL HFA INHALER INHALATION PRN ×2 (07:02→11:06)
[2020-01-09] MEDS: FLUTICASONE 220 MCG INHALER INHALATION SCH (07:02)
--- NOTE | 2020-01-09 07:04 | XR ---
EXAMINATION TYPE: XR chest 1V DATE OF EXAM: 01/09/2020 COMPARISON: 01/06/2020 HISTORY: Cough TECHNIQUE: Single frontal view of the chest is obtained. FINDINGS: Bilateral patchy faint densities are seen with cardiomegaly and widened mediastinum. This is similar to the prior exam. Atherosclerotic change of the aorta and cardiomegaly with postsurgical changes. No pneumothorax. Biapical pleural thickening. IMPRESSION: Persistent cardiomegaly with interstitial pattern correlate for interstitial pneumonitis .
[2020-01-09] MEDS: INSULIN ASPART (NovoLOG) 100 UNIT/ML VIAL SQ SCH (07:25)
[2020-01-09] MEDS ORDERED: INSULIN ASPART (NovoLOG) 100 UNIT/ML VIAL SQ SCH (07:30)
[2020-01-09 07:38] LABS: Basophils % (A) 0 %; Eosinophils # (A) 0.4 k/uL (0-0.7); Eosinophils % (A) 3 %; HCT 41.1 % (34.0-46.0); HGB 12.5 gm/dL (11.4-16.0); Lymphocytes # (A) 2.2 k/uL (1.0-4.8); Lymphocytes % (A) 16 %; MCH 29.7 pg (25.0-35.0); MCHC 30.4 g/dL (31.0-37.0); MCV 97.9 fL (80.0-100.0); Mean Platelet Volume 7.5; Monocytes # (A) 0.7 k/uL (0-1.0); Monocytes % (A) 5 %; Neutrophils # (A) 10.1 k/uL (1.3-7.7); Neutrophils % (A) 75 %; Platelet Count 296 k/uL (150-450); RDW 13.8 % (11.5-15.5); WBC 13.5 k/uL (3.8-10.6)
[2020-01-09 07:54] LABS: Calcium 8.8 mg/dL (8.4-10.2); Potassium 4.2 mmol/L (3.5-5.1)
[2020-01-09] MEDS: ASPIRIN 325 MG TAB PO SCH (08:27)
[2020-01-09] MEDS: CLOPIDOGREL 75 MG TAB PO SCH (08:27)
[2020-01-09] MEDS: METOPROLOL SUCCINATE (ER) 50 MG TAB.ER.24H PO SCH (08:27)
[2020-01-09] MEDS: FUROSEMIDE 10 MG/ML 4 ML VIAL IV SCH (08:27)
[2020-01-09 08:34] VITALS: BP 131/55; PULSE 64; RESP 16; TEMP 98
--- NOTE | 2020-01-09 11:04 | P.PN ---
Subjective Progress Note Date: 01/09/20 This is a 69-year-old female patient with history of diabetes, hypertension, hyperlipidemia, advanced COPD, chronic hypoxic respiratory failure, obesity, coronary artery disease with prior PCI. Patient also has prior bypass surgery. She presented to the hospital on this occasion because of symptoms of worsening shortness of breath. She also noticed swelling in her bilateral lower extremities. Patient was also noted to have abnormality in troponin, which was felt not to reflect acute coronary syndrome but was likely secondary to pneumonia. She also was initiated on IV Lasix, diuresed well through the night last night, and a negative balance this morning. Continues to have some shortness of breath however she states it's better than yesterday. She also continues to have some residual edema in her lower extremities. White blood cell count 15.2, hemoglobin 12.5, BNP level MCLXX and mcgee virus negative. Echocardiogram with Doppler study revealed a preserved left ventricular systolic function, 50-55%. 01/09/2020 Patient seen and examined this morning, chest x-ray continues to show persistent infiltrates bilaterally. Echo showed normal LV function. Overall the patient is diuresing well, continues to be on IV Lasix. Objective - Vital Signs Vital signs: Vital Signs Temp 98 F 01/09/20 08:00 Pulse 64 01/09/20 08:00 Resp 16 01/09/20 08:00 BP 131/55 01/09/20 08:00 Pulse Ox 96 01/09/20 08:00 Intake & Output 01/08/20 01/09/20 01/09/20 18:59 06:59 18:59 Intake Total 1040.817 540 200 Balance 1040.817 540 200 Weight 108 kg 103.6 kg Intake: Intake, IV Titration 260.817 Amount Heparin Sod,Pork in 0.45% 260.817 NaCl 25,000 unit In 0.45 % NaCl 1 250ml.bag @ 10.5 UNITS/KG/HR 10.002 mls/ hr IV .Q24H KAREN Rx#: [id number] Oral 780 540 200 Other: Voiding Method Bedside Commode Bedside Commode # Voids 2 - Exam GENERAL EXAM: Alert, very pleasant, 69-year-old obese white female, on 3 L of oxygen and the pulse ox 99%, comfortable in no apparent distress. HEAD: Normocephalic/atraumatic. EYES: Normal reaction of pupils, equal size. Conjunctiva pink, sclera white. NOSE: Clear with pink turbinates. THROAT: No erythema or exudates. NECK: No masses, no JVD, no thyroid enlargement, no adenopathy. CHEST: No chest wall deformity. Symmetrical expansion. LUNGS: Equal air entry with minimal basilar crackles, but no wheeze, rhonchi or dullness. CVS: Regular rate and rhythm, normal S1 and S2, no gallops, no murmurs, no rubs ABDOMEN: Soft, nontender. No hepatosplenomegaly, normal bowel sounds, no guarding or rigidity. EXTREMITIES: No clubbing, no edema, no cyanosis, 2+ pulses and upper and lower extremities. MUSCULOSKELETAL: Muscle strength and tone normal. SPINE: No scoliosis or deformity SKIN: No rashes CENTRAL NERVOUS SYSTEM: Alert and oriented -3. No focal deficits, tone is normal in all 4 extremities. PSYCHIATRIC: Alert and oriented -3. Appropriate affect. Intact judgment and insight. - Labs CBC & Chem 7: 01/09/20 06:58 01/09/20 06:58 Labs: Abnormal Lab Results - Last 24 Hours (Table) 01/08/20 01/08/20 01/08/20 Range/Units 11:32 16:17 20:39 WBC (3.8-10.6) k/uL MCHC (31.0-37.0) g/dL Neutrophils # (1.3-7.7) k/uL Chloride (98-107) mmol/L Carbon Dioxide (22-30) mmol/L BUN (7-17) mg/dL Glucose (74-99) mg/dL POC Glucose (mg/dL) 256 H 408 H 290 H (75-99) mg/dL 01/09/20 01/09/20 01/09/20 Range/Units 05:53 06:56 06:58 WBC 13.5 H (3.8-10.6) k/uL MCHC 30.4 L (31.0-37.0) g/dL Neutrophils # 10.1 H (1.3-7.7) k/uL Chloride (98-107) mmol/L Carbon Dioxide (22-30) mmol/L BUN (7-17) mg/dL Glucose (74-99) mg/dL POC Glucose (mg/dL) 241 H 220 H (75-99) mg/dL 01/09/20 Range/Units 06:58 WBC (3.8-10.6) k/uL MCHC (31.0-37.0) g/dL Neutrophils # (1.3-7.7) k/uL Chloride 96 L (98-107) mmol/L Carbon Dioxide 35 H (22-30) mmol/L BUN 30 H (7-17) mg/dL Glucose 226 H (74-99) mg/dL POC Glucose (mg/dL) (75-99) mg/dL Microbiology - Last 24 Hours (Table) 01/06/20 12:40 Blood Culture - Preliminary Blood No Growth after 48 hours Assessment and Plan Plan: Assessment and plan #1 symptoms of shortness of breath, likely secondary to COPD exacerbation and known advanced COPD, mild congestive heart failure, diastolic acute on chronic, possible pneumonia. #2 morbid obesity #3 coronary artery disease with prior PCI and bypass #4 hypertension #5 hyperlipidemia #6 diabetes #7 abnormality in troponin, not felt to be consistent with acute coronary syndrome, likely secondary to hypoxia and possible pneumonia. LV function by echo is normal Plan Cardiology's perspective, we will recommend to discontinue the IV Lasix and start the patient on by mouth diuretics. Should be stable for discharge home within the next 24 hours. DNP note has been reviewed, I agree with a documented findings and plan of care. Patient was seen and examined.
--- NOTE | 2020-01-09 11:08 | P.PN ---
Subjective Progress Note Date: 01/09/20 Principal diagnosis: Shortness of breath, multifactorial, related to advanced COPD exacerbation, with a component of CHF A 69-year-old female patient is very well-known to me. The patient is known to have advanced COPD and chronic hypoxic respiratory failure, the patient's has an FEV1 of 53% of predicted Alan combination of Spiriva and Symbicort on outpatient basis and also maintained on oxygen. Comorbidities include obesity, hypertension, hyperlipidemia, diabetes mellitus, coronary artery disease with multivessel involvement requiring percutaneous vascularization and depressed and stenting and the patient is post coronary artery bypass surgery following an acute non-STEMI back in 2017. The patient underwent three-vessel bypass including a WELCH to the LAD. The patient is coming into hospital because of worsening shortness of breath. The patient was feeling weak and congested and more dyspneic in addition to increased swelling in lower extremities. No ang bette. No palpitations. No fever. No chills. No exposure to Covid 19. No chest History. Her white cell count of 15.7. D-dimer is at 0.67. Electrolytes showed a sodium of 134 with a potassium level of 3.8. Lactic acid was 2.4 and the blood sugar was 416. ProBNP level is 1117. LDH is at 685. CRP is less than 5 and troponins were 0.4 and 0.3 and 0.3 respectively 3. Patient was started on IV heparin. The patient's family of any chest pain. EKG showing a sinus rhythm with a left axis deviation and a left bundle branch block pattern. The computed tomography scan of the chest showed some limited groundglass changes probably related to underlying COPD. Localized area of a consolidation of the left upper lobe was seen and the patient has some coronary artery calcification and cardiomegaly. 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 On 01/08/2020 patient seen in follow-up on selective care unit, she is diuresing, she is in -500 mL fluid balance, she is breathing easier today, still has some residual swelling in bilateral lower extremities but it does seem to be improved on today's exam, lung sounds reveal bibasilar crackles, no significant rhonchi or wheezing, today's labs have been reviewed, showing white blood cell count of 15.2, hemoglobin of 12.5, pro calcitonin was negative at 0.07, proBNP was 1170, coronavirus PCR was negative. Blood cultures were negative. Echocardiogram was completed showing preserved left ventricular systolic function with EF of 50-55%. Trace mitral regurg, no evidence of pulmonary hypertension patient remains on heparin infusion, cardiology is following, she denied any chest pain On 01/09/2020 patient seen in follow-up on selective care unit, she continues to diurese, her weight is trending down, although her fluid balance does not reflect her downtrending weight. Still has residual edema in her lower extremit ies, but breathing is improving, today's chest x-ray shows interstitial pattern related to fluid overload. She is on 2 L of oxygen with a pulse ox 96%, hemodynamically stable, she denies any chest pain. Cardiology is transitioning her to oral Lasix. His labs have been reviewed, showing white blood cell count 13.5, hemoglobin of 12.5, sodium is 137, potassium is 4.2, chloride is 96, CO2 is 35, B1 is 30, creatinine is 0.85. Objective - Vital Signs Vital signs: Vital Signs Temp 98 F 01/09/20 08:00 Pulse 64 01/09/20 08:00 Resp 16 01/09/20 08:00 BP 131/55 01/09/20 08:00 Pulse Ox 96 01/09/20 08:00 Intake & Output 01/08/20 01/09/20 01/09/20 18:59 06:59 18:59 Intake Total 1040.817 540 200 Balance 1040.817 540 200 Weight 108 kg 103.6 kg Intake: Intake, IV Titration 260.817 Amount Heparin Sod,Pork in 0.45% 260.817 NaCl 25,000 unit In 0.45 % NaCl 1 250ml.bag @ 10.5 UNITS/KG/HR 10.002 mls/ hr IV .Q24H [facility] Rx#: [id number] Oral 780 540 200 Other: Voiding Method Bedside Commode Bedside Commode # Voids 2 - Exam GENERAL EXAM: Alert, very pleasant, 69-year-old obese white female, on 3 L of oxygen and the pulse ox 99%, comfortable in no apparent distress. HEAD: Normocephalic/atraumatic. EYES: Normal reaction of pupils, equal size. Conjunctiva pink, sclera white. NOSE: Clear with pink turbinates. THROAT: No erythema or exudates. NECK: No masses, no JVD, no thyroid enlargement, no adenopathy. CHEST: No chest wall deformity. Symmetrical expansion. LUNGS: Equal air entry with minimal basilar crackles, but no wheeze, rhonchi or dullness. CVS: Regular rate and rhythm, normal S1 and S2, no gallops, no murmurs, no rubs ABDOMEN: Soft, nontender. No hepatosplenomegaly, normal bowel sounds, no guarding or rigidity. EXTREMITIES: No clubbing, no edema, no cyanosis, 2+ pulses and upper and lower extremities. MUSCULOSKELETAL: Muscle strength and tone normal. SPINE: No scoliosis or deformity SKIN: No rashes CENTRAL NERVOUS SYSTEM: Alert and oriented -3. No focal deficits, tone is normal in all 4 extremities. PSYCHIATRIC: Alert and oriented -3. Appropriate affect. Intact judgment and insight. - Labs CBC & Chem 7: 01/09/20 06:58 01/09/20 06:58 Labs: Abnormal Lab Results - Last 24 Hours (Table) 01/08/20 01/08/20 01/08/20 Range/Units 11:32 16:17 20:39 WBC (3.8-10.6) k/uL MCHC (31.0-37.0) g/dL Neutrophils # (1.3-7.7) k/uL Chloride (98-107) mmol/L Carbon Dioxide (22-30) mmol/L BUN (7-17) mg/dL Glucose (74-99) mg/dL POC Glucose (mg/dL) 256 H 408 H 290 H (75-99) mg/dL 01/09/20 01/09/20 01/09/20 Range/Units 05:53 06:56 06:58 WBC 13.5 H (3.8-10.6) k/uL MCHC 30.4 L (31.0-37.0) g/dL Neutrophils # 10.1 H (1.3-7.7) k/uL Chloride (98-107) mmol/L Carbon Dioxide (22-30) mmol/L BUN (7-17) mg/dL Glucose (74-99) mg/dL POC Glucose (mg/dL) 241 H 220 H (75-99) mg/dL 01/09/20 Range/Units 06:58 WBC (3.8-10.6) k/uL MCHC (31.0-37.0) g/dL Neutrophils # (1.3-7.7) k/uL Chloride 96 L (98-107) mmol/L Carbon Dioxide 35 H (22-30) mmol/L BUN 30 H (7-17) mg/dL Glucose 226 H (74-99) mg/dL POC Glucose (mg/dL) (75-99) mg/dL Microbiology - Last 24 Hours (Table) 01/06/20 12:40 Blood Culture - Preliminary Blood No Growth after 48 hours Assessment and Plan Plan: Assessment: 1 shortness of breath, multifactorial. The patient has advanced COPD and at the same time she is currently an acute COPD exacerbation a component of CHF as she has developed significant edema in lower extremities bilaterally. Covid 19 was negative, pro-calcitonin level was negative ruling out possibility of pneumonia 2 morbid obesity with a BMI of 42 3 multivessel coronary artery disease with previous revascularization/angioplasty/stenting and previous coronary artery bypass surgery performed in 2018. Currently the patient has limited troponin leak without any acute EKG abnormalities currently on IV heparin. Preop ejection fraction back in 2018 was within normal limits 4 advanced COPD with an FEV1 of 53% of predicted 5 increased lower extremity edema 6 hypertension 7 hyperlipidemia 8 diabetes mellitus maintained on Lantus insulin addition to metformin outpatient basis 9 troponin leak secondary to above, acute coronary event is felt to be less li april. Plan: Patient has been transitioned to oral diuretics, she is diuresing, breathing easier, will continue diuresis for another 24 hours, she remains stable we'll consider discharge home tomorrow I performed a history & physical examination of the patient and discussed their management with my nurse practitioner, Raine Arriaga. I reviewed the nurse practitioner's note and agree with the documented findings and plan of care. Lung sounds are positive for minimal bibasilar crackles. The findings and the impression was discussed with the patient. I attest to the documentation by the nurse practitioner. Time with Patient: Less than 30
[2020-01-09] MEDS ORDERED: FUROSEMIDE 40 MG TAB PO SCH (11:15)
--- NOTE | 2020-01-09 11:44 | P.PN ---
Subjective Progress Note Date: 01/09/20 Principal diagnosis: acute COPD exacerbation Bilateral lower extremity edema Elevated troponin level Patient is a 69-year-old female patient is a 69-year-old female with a known h istory of asthma, hypertension, diabetes type 2 insulin-dependent, hyperlipidemia, history of CA, coronary artery disease with history of stent placement in 2010 and 2014, coronary artery bypass graft in 2017, previous history of smoking came to ER with complaints of worsening shortness of breath for the past 1 week. Patient was seen in the urgent care facility and was given IM steroids and started on oral steroids. Patient continues to have shortness of breath and exertional dyspnea along with chest pain. Patient does have home oxygen but does not wear oxygen all the time. Patient was hypoxic with pulse ox in the 89% on room air. Patient has been afebrile. Denied any subjective fevers or chills at home. Patient tried using nebulizations at home. Chest x-ray showed cardiomegaly correlate for interstitial pneumonitis including viral pneumonitis versus venous congestion. Stable prominent upper mediastinum. Underlying mass or adenopathy in the differential. Denied any recent travel exposure to COVID-19. EKG showed sinus rhythm with first-degree AV block. CT angiogram of the chest showed limited exam due to severe motion. No diagnostic evidence of pulmonary embolism. Diffuse groundglass changes can be associated with a pneumonitis. Localized area of consolidation left upper lobe could be on the basis of developing pneumonia correlate clinically and follow-up evaluation to exclude underlying neoplasm. Coronary artery calcification and cardiomegaly. 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 Laboratory data showed WBC 15.7, d-dimer 0.67, sodium 134, potassium 3.8, chloride 97, blood sugar was 416 on admission, lactic acid 2.4 LDH 685, CRP less than 5 proBNP 1170 Troponin 0 0.480, 0.351 and 0.351 01/07/2020 Patient says that her breathing is slightly better. Still having bilateral lower extremity significant swelling. Started on IVLasix 40 mg twice daily. 2- D echocardiogram was ordered. Pulmonary and cardiology is following. Troponin level is trending down. No complaints of chest pain. No fever no chills. Patient is being continued on breathing treatments and antibiotics in the form of Levaquin. current medications reviewed. 01/08/2020 Patient is seen and evaluated and follow-up stating that her breathing has gotten slightly better although continues to have bilateral lower extremity swelling and is maintained on IV Lasix. Patient will continue with IV Lasix at this time. Underwent echo showing moderate concentric left ventricular hypertrophy with overall left ventricular systolic function is low to normal with an EF of 50-55%. Pulmonary and cardiology following. Patient is currently maintained on 3 L of oxygen via nasal cannula and states she wears it occasionally at home and shares with her . Patient is continued on inhalers and will continue at this time. Heparin drip has been discontinued. Currently no reports of chest pain or palpitations. Patient is afebrile. No reports of nausea or vomiting and patient is tolerating diet. Patient is getting up on her own to the bedside commode and gets slightly short of breath with exertion. Will continue to monitor closely. 01/09/2020 Patient is seen and evaluated in follow-up today states that her breathing has slightly improved and continues on 2 L of oxygen nasal cannula. Patient was transitioned to oral Lasix today and will continue for another 24 hours. Currently no reports of chest pain or palpitations. Patient is afebrile. No reports of nausea or vomiting and patient is tolerating diet. Instructed the patient to increase activity as tolerated. Pulmonary is following. White blood count slowly trending down at 13.5. Current creatinine today is 0.85. Will continue to monitor closely. Objective - Vital Signs Vital signs: Vital Signs Temp 98 F 01/09/20 08:00 Pulse 64 01/09/20 08:00 Resp 16 01/09/20 08:00 BP 131/55 01/09/20 08:00 Pulse Ox 96 01/09/20 08:00 Intake & Output 01/08/20 01/09/20 01/09/20 18:59 06:59 18:59 Intake Total 1040.817 540 200 Balance 1040.817 540 200 Weight 108 kg 103.6 kg Intake: Intake, IV Titration 260.817 Amount Heparin Sod,Pork in 0.45% 260.817 NaCl 25,000 unit In 0.45 % NaCl 1 250ml.bag @ 10.5 UNITS/KG/HR 10.002 mls/ hr IV .Q24H [facility] Rx#: [id number] Oral 780 540 200 Other: Voiding Method Bedside Commode Bedside Commode # Voids 2 - Exam Patient is sitting up at the side of the bed comfortably, no acute distress, awake alert and oriented.. HEENT: Normocephalic. Neck is supple. Pupils reactive. Nostrils clear. Oral cavity is moist. Ears reveal no drainage. Neck reveals no JVD, carotid bruits, or thyromegaly. CHEST EXAMINATION: Trachea is central. Symmetrical expansion. bilateral diminished air entry. No wheezing. Nonlabored breathing.. CARDIAC: Normal S1, S2 with no gallops. No murmurs ABDOMEN: Soft. Bowel sounds normal. No organomegaly. No abdominal bruits. Extremities: 1+ bilateral pedal edema. No clubbing or cyanosis Neurologically awake, alert, oriented x3 with well-coordinated movements. No focal deficits noted Skin: No rash or skin lesions. Psychiatric: Cooperative. Non-suicidal Musculoskeletal: No joint swelling or deformity. Normal range of motion. - Labs CBC & Chem 7: 01/09/20 06:58 01/09/20 06:58 Labs: Abnormal Lab Results - Last 24 Hours (Table) 01/08/20 01/08/20 01/09/20 Range/Units 16:17 20:39 05:53 WBC (3.8-10.6) k/uL MCHC (31.0-37.0) g/dL Neutrophils # (1.3-7.7) k/uL Chloride (98-107) mmol/L Carbon Dioxide (22-30) mmol/L BUN (7-17) mg/dL Glucose (74-99) mg/dL POC Glucose (mg/dL) 408 H 290 H 241 H (75-99) mg/dL 01/09/20 01/09/20 01/09/20 Range/Units 06:56 06:58 06:58 WBC 13.5 H (3.8-10.6) k/uL MCHC 30.4 L (31.0-37.0) g/dL Neutrophils # 10.1 H (1.3-7.7) k/uL Chloride 96 L (98-107) mmol/L Carbon Dioxide 35 H (22-30) mmol/L BUN 30 H (7-17) mg/dL Glucose 226 H (74-99) mg/dL POC Glucose (mg/dL) 220 H (75-99) mg/dL Microbiology - Last 24 Hours (Table) 01/06/20 12:40 Blood Culture - Preliminary Blood No Growth after 48 hours Assessment and Plan Assessment: Acute COPD exacerbation. failed out pt. steroid course.possible tracheobronchitis. Acute hypoxic respiratory failure on admission with pulse ox 89%. r/o COVID. Covid 19 testing negative, ruled out Elevated troponin level due to non-ST elevated CA Bilateral lower extremity edema. Without any other evidence of CHF. BNP 1170 Hyperglycemia with uncontrolled diabetes type 2. Steroids contributing. Left upper lobe consolidation with possible pneumonia. Underlying malignancy cannot be excluded. Coronary artery disease with history of stent placement and CABG Previous history of smoking Hypertension Hyperlipidemia History of CA DVT prophylaxis patient is already on heparin drip Plan: Patient will be continued on breathing treatments. Pulmonary and cardiology following. Continue with oxygen therapy. Patient transitioned to oral Lasix. To continue for an additional 24 hours. Will repeat a.m. labs. Continue with home insulin dose and adjust as needed. Further recommendations based on the clinical course. Possible discharge in 24-48 hours
[2020-01-09 12:04] LABS: Glucose,Whole Blood 166 mg/dL (75-99)
--- NOTE | 2020-01-09 13:23 | P.DS ---
<Judith Brown - Last Filed: 01/09/20 13:10> Providers Expected date of discharge: 01/09/20 Hospital Course: Final diagnosis Acute COPD exacerbation with possible tracheobronchitis. failed outpatient Acute hypoxic respiratory failure on admission with pulse ox 89%. r/o COVID. Covid 19 testing negative, ruled out Elevated troponin level due to non-ST elevated IL Bilateral lower extremity edema. Without any other evidence of CHF Hyperglycemia with uncontrolled diabetes type 2. Steroid-induced Left upper lobe consolidation with possible pneumonia. Underlying malignancy cannot be excluded. Coronary artery disease with history of stent placement and CABG Previous history of smoking Hypertension Hyperlipidemia History of IL DVT prophylaxis Discharge disposition Patient is being discharged in a stable condition with guarded prognosis to home and will follow-up with primary care provider Dr. Gonzales in the outpatient setting. She will also follow-up with cardiology and pulmonary in the outpatient setting as well. Patient will continue on Lasix 40 mg daily until follow-up with primary care provider. Total time taken is 35 minutes. History of present illness This is a 69-year-old female who was recently admitted with worsening shortness of breath and was being closely monitored. Patient was seen and evaluated in the urgent care and given an IM injection of steroids along with oral steroids although continued to have shortness of breath and exertional dyspnea with chest pain. Patient was initiated on heparin along with IV Lasix. She was seen and evaluated by pulmonary along with cardiology. CT of the chest showed no evidence of pulmonary embolism possible pneumonitis and was treated with Levaquin. Patient does have home oxygen but does not wear it all the time. Patient will need close follow-up with pulmonary along with cardiology and her primary care provider in the outpatient setting. Patient diuresed well during hospitalization and normally takes 20 mg daily of Lasix and will be increased to 40 mg daily until patient follow-up. Currently no reports of chest pain, worsening shortness of breath, or palpitations. Patient is afebrile. No reports of nausea or vomiting and patient is tolerating diet. Patient would like to go home today. Patient will be discharged today. On exam vital signs are stable. Temp is 98F, pulse is 64, respirations are 16, blood pressure is 131/55, oxygen saturation is 96% on 2 L via nasal cannula. Cardio S1, S2 are present. Respiratory system shows diminished breath sounds at the bases with no wheezing or rhonchi noted. Abdomen is soft, obese, and nontender. Nervous system shows no focal deficits. Please refer to medication reconciliation sheet for a list of medications. Patient Condition at Discharge: Stable Plan - Discharge Summary Discharge Rx Participant: No New Discharge Prescriptions: New INSULIN ASPART (NovoLOG) [NovoLOG (formulary)] 15 unit SQ AC-TID #1 vial Insulin Glargine [Lantus] 80 unit SQ HS #1 vial Continue Aspirin 81 mg PO DAILY Budesonide-Formot 160-4.5 Mcg [Symbicort 160-4.5 Mcg Inhaler] 2 puff INHALATION RT-BID Atorvastatin [Lipitor] 80 mg PO HS Gabapentin [Neurontin] 300 mg PO DAILY Tiotropium 18 Mcg/Puff [Spiriva] 1 cap INHALATION RT-DAILY Metoprolol Succinate [Toprol XL] 50 mg PO DAILY Nystatin 100,000 Unit/gm Powd [Mycostatin Powder] 1 applic TOPICAL BID Budesonide [Pulmicort] 1 mg INHALATION RT-BID #60 nebu Ipratropium-Albuterol Nebulize [Duoneb 0.5 mg-3 mg/3 ml Soln] 3 ml INHALATION RT-QID #120 Benzonatate [Tessalon Perles] 100 mg PO TID PRN PRN Reason: Cough Multivitamins, Thera [Multivitamin (formulary)] 1 tab PO DAILY@1200 Albuterol Sulfate [Ventolin HFA] 1 - 2 puff INHALATION RT-QID PRN PRN Reason: Shortness Of Breath Clopidogrel [Plavix] 75 mg PO DAILY #30 tab Changed Furosemide [Lasix] 40 mg PO DAILY PRN 30 Days #60 tablet PRN Reason: Edema Discontinued metFORMIN HCL [Glucophage] 850 mg PO TID Insulin Glargine,Hum.rec.anlog [Lantus Solostar] 80 unit SQ HS predniSONE [Deltasone] See Taper PO DAILY Insulin Lispro [humaLOG Kwikpen] 70 unit SQ W/BRKFST Insulin Lispro [humaLOG Kwikpen] 20 unit SQ W/SUPPER Discharge Medication List Aspirin 81 mg PO DAILY 12/17/14 [History] Budesonide-Formot 160-4.5 Mcg [Symbicort 160-4.5 Mcg Inhaler] 2 puff INHALATION RT-BID 04/18/15 [History] Atorvastatin [Lipitor] 80 mg PO HS 11/24/16 [History] Gabapentin [Neurontin] 300 mg PO DAILY 05/11/17 [History] Metoprolol Succinate [Toprol XL] 50 mg PO DAILY 08/30/18 [History] Tiotropium 18 Mcg/Puff [Spiriva] 1 cap INHALATION RT-DAILY 08/30/18 [History] Nystatin 100,000 Unit/gm Powd [Mycostatin Powder] 1 applic TOPICAL BID 08/30/19 [History] Budesonide [Pulmicort] 1 mg INHALATION RT-BID #60 nebu 09/03/19 [Rx] Ipratropium-Albuterol Nebulize [Duoneb 0.5 mg-3 mg/3 ml Soln] 3 ml INHALATION R T-QID #120 09/03/19 [Rx] Albuterol Sulfate [Ventolin HFA] 1 - 2 puff INHALATION RT-QID PRN 01/06/20 [History] Benzonatate [Tessalon Perles] 100 mg PO TID PRN 01/06/20 [History] Multivitamins, Thera [Multivitamin (formulary)] 1 tab PO DAILY@1200 01/06/20 [History] Clopidogrel [Plavix] 75 mg PO DAILY #30 tab 01/09/20 [Rx] Furosemide [Lasix] 40 mg PO DAILY PRN 30 Days #60 tablet 01/09/20 [Rx] INSULIN ASPART (NovoLOG) [NovoLOG (formulary)] 15 unit SQ AC-TID #1 vial 01/09/20 [Rx] Insulin Glargine [Lantus] 80 unit SQ HS #1 vial 01/09/20 [Rx] Follow up Appointment(s)/Referral(s): Elvira Gonzales MD [Primary Care Provider] - 1-2 days [facility], [NON-STAFF] - Jake Flannery MD [STAFF PHYSICIAN] - 01/16/20 2:00 pm Haven Monique MD [STAFF PHYSICIAN] - 01/30/20 1:30 pm Activity/Diet/Wound Care/Special Instructions: Activity Limited until follow-up Continue current diet Continue with Lasix 40 mg daily Follow-up with primary care provider upon discharge Follow-up with cardiology as discussed and scheduled Follow-up with pulmonary in the outpatient setting in 1-2 weeks Elevate the legs while at rest and continue with compression stockings Continue to monitor blood sugar before meals at bedtime and treat accordingly Discharge Disposition: HOME WITH HOME HEALTH SERVICES <Bernard Holland - Last Filed: 01/09/20 19:19> Providers Date of admission: 01/06/20 14:40 I have discussed the plan and I have reviewed the notes with HANDLE ASSEMBLER Judith and I agree with it except was mentioned below Patient is seen and examined by me at bedside When I saw the patient today she was sitting at bedside, looks comfortable and not in respiratory distress, she was noted to be mildly tachypneic sitting that's her baseline and she was asking if she can be discharged today instead of tomorrow, patient was admitted with dyspnea with concerning for high troponin found to be due to demand/supply mismatch rather than non-STEMI, also found to have CHF and advanced COPD exacerbation acutely, also imaging showing left upper lobe consolidation and cannot rule out neoplasm, patient instructed to follow up with her merchandising team lead as an outpatient with Dr. Kayden boothe was following up with her inpatient, and she agrees with his appointment in 3 weeks from today on 01/29 and said she will follow up Also patient has been evaluated by car rental sales assistant, she was noticed to be on aspirin and Plavix at home and in the hospital, however states that she does not have stripped off Plavix at home so she was provided with 1 upon discharge. Patient will be discharged on oral Lasix. Patient has been evaluated by Dr. Flannery cleared for discharge, she agrees to follow up with him next week on 01/15. Patient denies any other symptoms. Also patient states that she takes Lantus pen with the dose of 80 units at bedtime, also she was noticed to be on metformin, and insulin lispro 70 units at breakfast and 20 units at supper time, however patient wasn't well oriented regarding her medication dosing for example she was telling me she takes Lantus as needed and not on schedule cases I spent more than 15 minutes trying to explain to the patient extensively her diabetes medication and was says the patient wasn't sure about her home medication and whether she have a more normal, she was instructed to discontinue all her diabetes medication and she agrees with that, instead of that she was continued on same insulin regimen given in the hospital with long-acting insulin of Levemir at 80 units at bedtime (she can continue with her Lantus pain at home, and short acting insulin 10 units with meals which were increased to 15 units with meals as she needed 10 units extra dose yesterday and still her sugar was on the high side 200-408. Patient verbalized understanding and acceptance, also instructed the bedside nurse to teach the patient how to inject herself short acting insulin. Also patient provided with home health care and physical nurse upon discharge, discussed with onsite case manager Based on all of the ABOVE Problems and management plan were discussed with the patient and he verbalized understanding and acceptance Patient was found stable and can be discharged home however he needs follow-up as an outpatient. Patient was instructed to follow up with PCP within one week and patient agrees. Patient agrees with Dr. Flannery and Dr. Monique appointments as above Dr. holland Attending physician: Irwin Arredondo Consults: 01/06/20 14:47 Consult Physician Urgent Consulting Provider: Adam Gramajo Consult Reason/Comments: NSTEMI Do you want consulting provider notified?: Yes 01/06/20 17:34 Consult Physician Routine Consulting Provider: Haven Monique Consult Reason/Comments: COPD & pneumonia Do you want consulting provider notified?: Yes Primary care physician: Elvira Gonzales
== END 2020-01-09 14:50 | disposition home health service (06) | DRG 190 ==
LOC: EC 11:53 → 3SCARD 14:40
PROVIDERS: ADMIT Hospitalist; ATTEND Hospitalist
DX: J44.1 Chronic obstructive pulmonary disease with (acute) exacerbation (principal); J96.21 Acute and chronic respiratory failure with hypoxia; J18.9 Pneumonia, unspecified organism; I21.A1 Myocardial infarction type 2; Z68.41 Body mass index [BMI] 40.0-44.9, adult; E78.5 Hyperlipidemia, unspecified; E66.01 Morbid (severe) obesity due to excess calories; E11.65 Type 2 diabetes mellitus with hyperglycemia; I11.0 Hypertensive heart disease with heart failure; I25.10 Atherosclerotic heart disease of native coronary artery without angina pectoris; I44.0 Atrioventricular block, first degree; Z20.828 Contact with and (suspected) exposure to other viral communicable diseases; J40 Bronchitis, not specified as acute or chronic; T38.0X5A Adverse effect of glucocorticoids and synthetic analogues, initial encounter; I44.7 Left bundle-branch block, unspecified; J44.0 Chronic obstructive pulmonary disease with (acute) lower respiratory infection; Z81.8 Family history of other mental and behavioral disorders; Z79.899 Other long term (current) drug therapy; Z79.82 Long term (current) use of aspirin; Z79.51 Long term (current) use of inhaled steroids; Z79.4 Long term (current) use of insulin; Z79.02 Long term (current) use of antithrombotics/antiplatelets; Z88.5 Allergy status to narcotic agent; I25.2 Old myocardial infarction; Z82.49 Family history of ischemic heart disease and other diseases of the circulatory system; Z87.891 Personal history of nicotine dependence; Z95.1 Presence of aortocoronary bypass graft; Z95.5 Presence of coronary angioplasty implant and graft; Z90.49 Acquired absence of other specified parts of digestive tract; Z98.890 Other specified postprocedural states; Q27.8 Other specified congenital malformations of peripheral vascular system
CPT/HCPCS: 36415; 71045; 71275; 80048; 80053; 80061; 82728; 83036; 83605; 83615; 83735; 83880; 84145; 84484; 85025; 85379; 85610; 85730; 86140; 87040; 87635; 93005; 93306; 94640; 96361; 96365; 96375; 96376; 99291

== ENCOUNTER → 2020-04-02 | Outpatient (CLI) | payer MEDICARE ==
[2020-04-02 14:51] LABS: Basophils % (A) 0 %; Eosinophils # (A) 0.2 k/uL (0-0.7); Eosinophils % (A) 1 %; HCT 42.4 % (34.0-46.0); HGB 13.2 gm/dL (11.4-16.0); Hypochromasia Slight; Lymphocytes # (A) 1.1 k/uL (1.0-4.8); Lymphocytes % (A) 7 %; MCH 30.2 pg (25.0-35.0); MCHC 31.2 g/dL (31.0-37.0); MCV 96.8 fL (80.0-100.0); Mean Platelet Volume 7.3; Monocytes # (A) 0.6 k/uL (0-1.0); Monocytes % (A) 4 %; Neutrophils # (A) 12.8 k/uL (1.3-7.7); Neutrophils % (A) 86 %; Platelet Count 382 k/uL (150-450); RBC 4.38 m/uL (3.80-5.40); RDW 13.6 % (11.5-15.5); WBC 14.8 k/uL (3.8-10.6)
== END | disposition home or self-care (01) ==
LOC: LABWHC1 14:18
PROVIDERS: ATTEND Family Medicine
DX: D72.829 Elevated white blood cell count, unspecified (principal)
CPT/HCPCS: 36415; 85025

== ENCOUNTER 2020-05-19 12:10 | Observation (INO) | payer MEDICARE ==
[2020-05-19] MEDS ORDERED: IPRATROPIUM-ALBUTEROL 3 ML NEB INHALATION STA (12:34)
--- NOTE | 2020-05-19 12:37 | ED ---
General Adult HPI - General Chief complaint: Shortness of Breath Stated complaint: DONALD Time Seen by Provider: 05/19/20 12:24 Source: patient, RN notes reviewed Mode of arrival: wheelchair Limitations: no limitations - History of Present Illness Initial comments: Patient is a pleasant 70-year-old female presenting to the emergency department with difficulty breathing. Onset of symptoms was middle the night. Patient does have occasional cough, nonproductive. Patient does have myalgias. No fever or chills. Dyspnea does feel like chronic asthma. Patient does have some mild leg swelling however this is also chronic for her and states she does not always take her Lasix. - Related Data Home Medications Medication Instructions Recorded Confirmed Aspirin 81 mg PO DAILY 12/17/14 01/06/20 Budesonide-Formot 160-4.5 Mcg 2 puff INHALATION RT-BID 04/18/15 01/06/20 [Symbicort 160-4.5 Mcg Inhaler] Atorvastatin [Lipitor] 80 mg PO HS 11/24/16 01/06/20 Gabapentin [Neurontin] 300 mg PO DAILY 05/11/17 01/06/20 Metoprolol Succinate [Toprol XL] 50 mg PO DAILY 08/30/18 01/06/20 Tiotropium 18 Mcg/Puff [Spiriva] 1 cap INHALATION RT-DAILY 08/30/18 01/06/20 Nystatin 100,000 Unit/gm Powd 1 applic TOPICAL BID 08/30/19 01/06/20 [Mycostatin Powder] Albuterol Sulfate [Ventolin HFA] 1 - 2 puff INHALATION RT-QID PRN 01/06/20 01/06/20 Benzonatate [Tessalon Perles] 100 mg PO TID PRN 01/06/20 01/06/20 Multivitamins, Thera [Multivitamin 1 tab PO DAILY@1200 01/06/20 01/06/20 (formulary)] Previous Rx's Medication Instructions Recorded Budesonide [Pulmicort] 1 mg INHALATION RT-BID #60 nebu 09/03/19 Ipratropium-Albuterol Nebulize 3 ml INHALATION RT-QID #120 09/03/19 [Duoneb 0.5 mg-3 mg/3 ml Soln] Clopidogrel [Plavix] 75 mg PO DAILY #30 tab 01/09/20 Furosemide [Lasix] 40 mg PO DAILY PRN 30 Days #60 01/09/20 tablet INSULIN ASPART (NovoLOG) [NovoLOG 15 unit SQ AC-TID #1 vial 01/09/20 (formulary)] Insulin Glargine [Lantus] 80 unit SQ HS #1 vial 01/09/20 Allergies Allergy/AdvReac Type Severity Reaction Status Date / Time codeine Allergy Nausea & Verified 05/19/20 12:23 Vomiting Review of Systems ROS Statement: Those systems with pertinent positive or pertinent negative responses have been documented in the HPI. ROS Other: All systems not noted in ROS Statement are negative. Constitutional: Denies: fever, chills Eyes: Denies: eye pain ENT: Denies: ear pain Respiratory: Reports: cough, dyspnea Cardiovascular: Denies: chest pain Endocrine: Reports: fatigue Gastrointestinal: Denies: abdominal pain Genitourinary: Denies: dysuria Musculoskeletal: Denies: back pain Skin: Denies: rash Neurological: Denies: weakness Past Medical History Past Medical History: Coronary Artery Disease (CAD), COPD, Diabetes Mellitus, Hyperlipidemia, Hypertension, Myocardial Infarction (CO), Syncope Additional Past Medical History / Comment(s): NEBULIZER AT HOME, Last Myocardial Infarction Date:: 2010 History of Any Multi-Drug Resistant Organisms: None Reported Past Surgical History: Cholecystectomy, Coronary Bypass/CABG, Heart Catheterization With Stent Additional Past Surgical History / Comment(s): 1st stent in 2010, 3 more stents placed -about 2014, open heart surgery 2016. Past Anesthesia/Blood Transfusion Reactions: No Reported Reaction Additional Past Anesthesia/Blood Transfusion Reaction / Comment(s): Claustrophobic Date of Last Stent Placement:: 2014 Past Psychological History: No Psychological Hx Reported Past Alcohol Use History: None Reported Past Drug Use History: None Reported - Past Family History Father Family Medical History: Myocardial Infarction (CO) Additional Family Medical History / Comment(s): STENT, OPEN HEART SURGERY Mother Additional Family Medical History / Comment(s): DEPRESSION General Exam Limitations: no limitations General appearance: alert, in no apparent distress Head exam: Present: normocephalic Eye exam: Present: normal appearance Neck exam: Present: normal inspection Respiratory exam: Present: decreased breath sounds Cardiovascular Exam: Present: regular rate, normal rhythm GI/Abdominal exam: Present: soft. Absent: tenderness Extremities exam: Present: pedal edema (+ 1 bilateral). Absent: calf tenderness Neurological exam: Present: alert Psychiatric exam: Present: normal affect, normal mood Skin exam: Present: normal color Course Vital Signs 05/19/20 05/19/20 05/19/20 12:20 12:59 13:24 Temperature 98.0 F Pulse Rate 73 70 Respiratory 20 20 Rate Blood Pressure 141/56 O2 Sat by Pulse 92 L Oximetry 05/19/20 13:34 Temperature Pulse Rate 70 Respiratory Rate Blood Pressure O2 Sat by Pulse Oximetry EKG Findings - EKG Comments: EKG Findings:: Sinus rhythm with rate of 73. For screening AV block [place] of 234. QRS 116. QT 404. QTC 445. Left axis. LVH. No acute ST change. Medical Decision Making - Medical Decision Making Patient reevaluated and updated. Dr. Tripp has been paged for admission covering for Dr. Zelaya. - Lab Data Result diagrams: 05/19/20 12:50 05/19/20 12:50 Lab Results 05/19/20 05/19/20 05/19/20 Range/Units 12:50 12:50 12:50 WBC 14.1 H (3.8-10.6) k/uL RBC 3.94 (3.80-5.40) m/uL Hgb 11.7 (11.4-16.0) gm/dL Hct 37.8 (34.0-46.0) % MCV 95.8 (80.0-100.0) fL MCH 29.6 (25.0-35.0) pg MCHC 30.9 L (31.0-37.0) g/dL RDW 13.4 (11.5-15.5) % Plt Count 283 (150-450) k/uL Neutrophils % 82 % Lymphocytes % 11 % Monocytes % 4 % Eosinophils % 2 % Basophils % 0 % Neutrophils # 11.6 H (1.3-7.7) k/uL Lymphocytes # 1.5 (1.0-4.8) k/uL Monocytes # 0.6 (0-1.0) k/uL Eosinophils # 0.2 (0-0.7) k/uL Basophils # 0.0 (0-0.2) k/uL PT 9.8 (9.0-12.0) sec INR 0.9 (<1.2) APTT 19.6 L (22.0-30.0) sec Sodium 136 L (137-145) mmol/L Potassium 4.3 (3.5-5.1) mmol/L Chloride 102 (98-107) mmol/L Carbon Dioxide 29 (22-30) mmol/L Anion Gap 5 mmol/L BUN 20 H (7-17) mg/dL Creatinine 0.69 (0.52-1.04) mg/dL Est GFR (CKD-EPI)AfAm >90 (>60 ml/min/1.73 sqM) Est GFR (CKD-EPI)NonAf 89 (>60 ml/min/1.73 sqM) Glucose 287 H (74-99) mg/dL Plasma Lactic Acid Dennis (0.7-2.0) mmol/L Calcium 8.8 (8.4-10.2) mg/dL Total Bilirubin 1.2 (0.2-1.3) mg/dL AST 26 (14-36) U/L ALT 26 (4-34) U/L Alkaline Phosphatase 61 (38-126) U/L Troponin I (0.000-0.034) ng/mL NT-Pro-B Natriuret Pep pg/mL Total Protein 5.5 L (6.3-8.2) g/dL Albumin 3.1 L (3.5-5.0) g/dL 05/19/20 05/19/20 05/19/20 Range/Units 12:50 12:50 12:50 WBC (3.8-10.6) k/uL RBC (3.80-5.40) m/uL Hgb (11.4-16.0) gm/dL Hct (34.0-46.0) % MCV (80.0-100.0) fL MCH (25.0-35.0) pg MCHC (31.0-37.0) g/dL RDW (11.5-15.5) % Plt Count (150-450) k/uL Neutrophils % % Lymphocytes % % Monocytes % % Eosinophils % % Basophils % % Neutrophils # (1.3-7.7) k/uL Lymphocytes # (1.0-4.8) k/uL Monocytes # (0-1.0) k/uL Eosinophils # (0-0.7) k/uL Basophils # (0-0.2) k/uL PT (9.0-12.0) sec INR (<1.2) APTT (22.0-30.0) sec Sodium (137-145) mmol/L Potassium (3.5-5.1) mmol/L Chloride (98-107) mmol/L Carbon Dioxide (22-30) mmol/L Anion Gap mmol/L BUN (7-17) mg/dL Creatinine (0.52-1.04) mg/dL Est GFR (CKD-EPI)AfAm (>60 ml/min/1.73 sqM) Est GFR (CKD-EPI)NonAf (>60 ml/min/1.73 sqM) Glucose (74-99) mg/dL Plasma Lactic Acid Dennis 2.0 (0.7-2.0) mmol/L Calcium (8.4-10.2) mg/dL Total Bilirubin (0.2-1.3) mg/dL AST (14-36) U/L ALT (4-34) U/L Alkaline Phosphatase (38-126) U/L Troponin I 0.025 (0.000-0.034) ng/mL NT-Pro-B Natriuret Pep 721 pg/mL Total Protein (6.3-8.2) g/dL Albumin (3.5-5.0) g/dL - Radiology Data Radiology results: image reviewed (Chest x-ray does show cardiomegaly with diffuse interstitial pattern. Tiny effusions. Correlate for CHF.) Disposition Clinical Impression: COPD (chronic obstructive pulmonary disease), Congestive heart failure Disposition: ADMITTED IP TO THIS HOSP Is patient prescribed a controlled substance at d/c from ED?: No Referrals: Elvira Gonzales MD [Primary Care Provider] - 1-2 days Decision Time: 13:45
[2020-05-19 13:11] LABS: Basophils % (A) 0 %; Eosinophils # (A) 0.2 k/uL (0-0.7); Eosinophils % (A) 2 %; HCT 37.8 % (34.0-46.0); HGB 11.7 gm/dL (11.4-16.0); Lymphocytes # (A) 1.5 k/uL (1.0-4.8); Lymphocytes % (A) 11 %; MCH 29.6 pg (25.0-35.0); MCHC 30.9 g/dL (31.0-37.0); MCV 95.8 fL (80.0-100.0); Mean Platelet Volume 6.8; Monocytes # (A) 0.6 k/uL (0-1.0); Monocytes % (A) 4 %; Neutrophils # (A) 11.6 k/uL (1.3-7.7); Neutrophils % (A) 82 %; Platelet Count 283 k/uL (150-450); RBC 3.94 m/uL (3.80-5.40); RDW 13.4 % (11.5-15.5); WBC 14.1 k/uL (3.8-10.6)
[2020-05-19 13:24] LABS: ALT 26 U/L (4-34); AST 26 U/L (14-36); African American GFR (CKD) >90 (>60 ml/min/1.73 sqM); Albumin 3.1 g/dL (3.5-5.0); Alkaline Phosphatase 61 U/L (38-126); Anion Gap 5 mmol/L; Blood Urea Nitrogen 20 mg/dL (7-17); Calcium 8.8 mg/dL (8.4-10.2); Carbon Dioxide 29 mmol/L (22-30); Chloride 102 mmol/L (98-107); Glucose 287 mg/dL (74-99); Non-African American GFR(CKD) 89 (>60 ml/min/1.73 sqM); Potassium 4.3 mmol/L (3.5-5.1); Sodium 136 mmol/L (137-145); Total Bilirubin 1.2 mg/dL (0.2-1.3); Total Protein 5.5 g/dL (6.3-8.2)
--- NOTE | 2020-05-19 13:27 | XR ---
EXAMINATION TYPE: XR chest 2V DATE OF EXAM: 05/19/2020 COMPARISON: 01/09/2020 TECHNIQUE: PA and lateral views submitted. HISTORY: Shortness of breath FINDINGS: The heart is enlarged and there is a diffuse interstitial pattern with by basilar consolidation and t iny effusions. Postoperative change. Atherosclerotic change of the aorta. Biapical pleural thickening . No pneumothorax. IMPRESSION: 1. Correlate for CHF.
[2020-05-19 13:30] LABS: INR 0.9 (<1.2); Prothrombin Time 9.8 sec (9.0-12.0)
[2020-05-19 13:34] LABS: Partial Thromboplastin Time 19.6 sec (22.0-30.0)
[2020-05-19] MEDS ORDERED: ASPIRIN 325 MG TAB PO STA (14:02)
[2020-05-19] MEDS ORDERED: IPRATROPIUM-ALBUTEROL 3 ML NEB INHALATION PRN (14:02)
[2020-05-19] MEDS ORDERED: methylPREDNISolone SOD SUCCI 125 MG/2 ML VIAL IV STA (14:02)
[2020-05-19] MEDS: NITROGLYCERIN OINT 1 INCH/GM PACKET TOPICAL SCH ×3 (14:26→21:16)
[2020-05-19] MEDS: FUROSEMIDE 10 MG/ML 4 ML VIAL IV SCH ×2 (14:28→21:15)
[2020-05-19] MEDS: IPRATROPIUM-ALBUTEROL 3 ML NEB INHALATION SCH ×2 (14:58→18:18)
[2020-05-19] MEDS ORDERED: ALBUTEROL HFA INHALER INHALATION PRN (16:09)
[2020-05-19 16:55] LABS: Glucose,Whole Blood 397 mg/dL (75-99)
[2020-05-19] MEDS ORDERED: INSULIN ASPART (NovoLOG) 100 UNIT/ML VIAL SQ SCH (17:30)
[2020-05-19] MEDS ORDERED: methylPREDNISolone SOD SUCCI 125 MG/2 ML VIAL IV SCH (18:00)
[2020-05-19] MEDS: SYMBICORT 160-4.5 MCG INHALER INHALATION SCH (18:18)
[2020-05-19 20:14] LABS: Glucose,Whole Blood 500 mg/dL (75-99)
[2020-05-19 20:14] LABS: Glucose,Whole Blood 544 mg/dL (75-99)
[2020-05-19] MEDS ORDERED: INSULIN DETEMIR (LEVEMIR) 100 UNIT/ML SYR SQ SCH ×2 (21:00)
[2020-05-19] MEDS: INSULIN ASPART (NovoLOG) 100 UNIT/ML VIAL SQ SCH (21:14)
[2020-05-20] MEDS: methylPREDNISolone SOD SUCCI 40 MG/ML 1 ML VIAL IV SCH ×2 (06:06→08:05)
[2020-05-20] MEDS: FUROSEMIDE 10 MG/ML 4 ML VIAL IV SCH (06:51)
[2020-05-20 06:52] LABS: Glucose,Whole Blood 414 mg/dL (75-99)
[2020-05-20] MEDS ORDERED: ACETAMINOPHEN TAB 325 MG TAB PO STA ×2 (06:57→19:31)
[2020-05-20] MEDS ORDERED: INSULIN DETEMIR (LEVEMIR) 100 UNIT/ML SYR SQ ONE (07:44)
[2020-05-20] MEDS: SYMBICORT 160-4.5 MCG INHALER INHALATION SCH ×2 (08:01→19:06)
[2020-05-20] MEDS: IPRATROPIUM-ALBUTEROL 3 ML NEB INHALATION SCH ×4 (08:01→19:05)
[2020-05-20] MEDS: NITROGLYCERIN OINT 1 INCH/GM PACKET TOPICAL SCH ×4 (08:05→23:08)
[2020-05-20] MEDS: INSULIN ASPART (NovoLOG) 100 UNIT/ML VIAL SQ SCH ×7 (08:06→20:37)
[2020-05-20] MEDS: HEPARIN SODIUM,PORCINE 5,000 UNIT/ML 1 ML VIAL SQ SCH ×2 (08:07→20:36)
[2020-05-20] MEDS: CLOPIDOGREL 75 MG TAB PO SCH (08:08)
[2020-05-20] MEDS: ASPIRIN 325 MG TAB PO SCH (08:08)
[2020-05-20] MEDS: METOPROLOL SUCCINATE (ER) 50 MG TAB.ER.24H PO SCH (08:14)
[2020-05-20] MEDS ORDERED: FAMOTIDINE 20 MG/2 ML VIAL IV SCH (09:00)
--- NOTE | 2020-05-20 09:02 | P.HPIM ---
History of Present Illness This is a pleasant 70 years old female with multiple medical problems as below including asthma, hypertension, diabetes type 2 insulin-dependent, hyperlipidemia, history of HI, coronary artery disease with history of stent placement in 2010 and 2014, coronary artery bypass graft in 2017, previous history of smoking, congestive heart failure and COPD. She is a patient of Dr. Zelaya.she follow with for her copd. she supposed to see in office to check her heart. Patient presents because of acute dyspnea of one day duration , associated with little cough , no phlegm, no chest pain . no change in urine or bowel habits, no fever, only mild headache, no weakness or numbness. also complains from right leg pain , and bilateral leg swelling. she quit smoking about ten years ago, no alcohol or illicit drugs . vitals are stable. Labs showing leukocytosis of 14.1 K, baseline is 12.1-20.0. Rest of labs including basic metabolic panel, liver enzymes were unremarkable. Troponin is -0.025. ProBNP 721 Vitas looks stable and she was saturating 91% on room air, currently she is s aturating 98% on 3 L oxygen. Echocardiogram from 12/2019: Ejection fraction 50-55%. Moderate LVH. An emergency room patient received a breathing treatment, aspirin, Solu-Medrol and started on Lasix 40 mg IV every 8 hours Review of Systems CONSTITUTIONAL: No fever, no malaise, no fatigue. HEENT: No recent visual problems or hearing problems. Denied any sore throat. CARDIOVASCULAR: No orthopnea, PND, no palpitations, no syncope. PULMONARY: No chest wall tenderness, no hemoptysis. GASTROINTESTINAL: No diarrhea, no nausea, no vomiting, no abdominal pain. Normoactive bowel sounds. NEUROLOGICAL: No headaches, no weakness, no numbness. HEMATOLOGICAL: Denies any bleeding or petechiae. GENITOURINARY: Denies any burning micturition, frequency, or urgency. MUSCULOSKELETAL/RHEUMATOLOGICAL: Denies any joint pain, swelling, or any muscle pain. ENDOCRINE: Denies any polyuria or polydipsia. Past Medical History Past Medical History: Asthma, Coronary Artery Disease (CAD), Chest Pain / Angina, Heart Failure, COPD, Diabetes Mellitus, Hyperlipidemia, Hypertension, Myocardial Infarction ([place]), Respiratory Disorder, Syncope Additional Past Medical History / Comment(s): NEBULIZER AT HOME, broncitis, emphysema Last Myocardial Infarction Date:: 2010 History of Any Multi-Drug Resistant Organisms: None Reported Past Surgical History: Cholecystectomy, Coronary Bypass/CABG, Heart Catheterization With Stent Additional Past Surgical History / Comment(s): 1st stent in 2010, 3 more stents placed -about 2014, open heart surgery 2016. Past Anesthesia/Blood Transfusion Reactions: No Reported Reaction Additional Past Anesthesia/Blood Transfusion Reaction / Comment(s): Claustrophobic Date of Last Stent Placement:: 2014 Past Psychological History: No Psychological Hx Reported Smoking Status: Former smoker Past Alcohol Use History: None Reported Additional Past Alcohol Use History / Comment(s): STARTED SMOKING AT AGE 14- WORKED UP TO 3 PPD, QUIT 2010 Past Drug Use History: None Reported - Past Family History Father Family Medical History: Myocardial Infarction ([place]) Additional Family Medical History / Comment(s): STENT, OPEN HEART SURGERY Mother Additional Family Medical History / Comment(s): DEPRESSION, mental illness Medications and Allergies Home Medications Medication Instructions Recorded Confirmed Type Aspirin 81 mg PO DAILY 12/17/14 05/19/20 History Budesonide-Formot 160-4.5 Mcg 2 puff INHALATION RT-BID 04/18/15 05/19/20 History [Symbicort 160-4.5 Mcg Inhaler] Metoprolol Succinate [Toprol XL] 50 mg PO DAILY 08/30/18 05/19/20 History Ipratropium-Albuterol Nebulize 3 ml INHALATION RT-QID #120 09/03/19 05/19/20 Rx [Duoneb 0.5 mg-3 mg/3 ml Soln] Albuterol Sulfate [Ventolin HFA] 2 puff INHALATION RT-QID PRN 01/06/20 05/19/20 History Clopidogrel [Plavix] 75 mg PO DAILY #30 tab 01/09/20 05/19/20 Rx Furosemide [Lasix] 20 mg PO BID PRN 05/19/20 05/19/20 History INSULIN LISPRO (humaLOG) [humaLOG] 15 units SQ AC-TID 05/19/20 05/19/20 History Insulin Glargine [Lantus] 20 unit SQ HS 05/19/20 05/19/20 History Multivit with Calcium,Iron,Min 1 tab PO DAILY 05/19/20 05/19/20 History [Women's Multivitamin] Allergies Allergy/AdvReac Type Severity Reaction Status Date / Time codeine AdvReac Nausea & Verified 05/19/20 14:15 Vomiting Physical Exam Vitals: Vital Signs Temp Pulse Pulse Resp BP BP Pulse Ox 05/20/20 02:08 98.2 F 60 20 152/66 91 L 05/19/20 20:32 98.0 F 76 20 158/76 91 L 05/19/20 18:32 75 05/19/20 18:23 73 05/19/20 15:50 98.4 F 65 16 159/76 94 L 05/19/20 14:33 98.2 F 05/19/20 13:59 71 18 145/77 96 05/19/20 13:34 70 05/19/20 13:24 70 05/19/20 12:59 20 05/19/20 12:20 98.0 F 73 20 141/56 92 L Intake and Output 05/19/20 05/20/20 05/20/20 22:59 06:59 14:59 Output Total 600 1500 Balance -600 -1500 Output: Urine 600 1500 Other: Voiding Method Toilet Toilet Weight 99.79 kg 99.6 kg GENERAL: The patient is alert and oriented x3, not in any acute distress. Well developed, well nourished. HEENT: Pupils are round and equally reacting to light. EOMI. No scleral icterus. No conjunctival pallor. Normocephalic, atraumatic. No pharyngeal erythema. No thyromegaly. CARDIOVASCULAR: S1 and S2 present. No murmurs, rubs, or gallops. -PULMONARY: Chest is clear to auscultation. Mild Bilateral expiratory wheezing, with some basal crepitation ABDOMEN: Soft, nontender, nondistended, normoactive bowel sounds. No palpable organomegaly. MUSCULOSKELETAL: No joint swelling or deformity. -EXTREMITIES: No cyanosis, clubbing,. Bilateral pitting leg edema. NEUROLOGICAL: Gross neurological examination did not reveal any focal deficits. SKIN: No rashes. No petechiae Results CBC & Chem 7: 05/19/20 12:50 05/19/20 12:50 Labs: Abnormal Lab Results - Last 24 Hours (Table) 05/19/20 05/19/20 05/19/20 Range/Units 12:50 12:50 12:50 WBC 14.1 H (3.8-10.6) k/uL MCHC 30.9 L (31.0-37.0) g/dL Neutrophils # 11.6 H (1.3-7.7) k/uL APTT 19.6 L (22.0-30.0) sec Sodium 136 L (137-145) mmol/L BUN 20 H (7-17) mg/dL Glucose 287 H (74-99) mg/dL POC Glucose (mg/dL) (75-99) mg/dL Total Protein 5.5 L (6.3-8.2) g/dL Albumin 3.1 L (3.5-5.0) g/dL 05/19/20 05/19/20 05/19/20 Range/Units 16:53 20:11 20:12 WBC (3.8-10.6) k/uL MCHC (31.0-37.0) g/dL Neutrophils # (1.3-7.7) k/uL APTT (22.0-30.0) sec Sodium (137-145) mmol/L BUN (7-17) mg/dL Glucose (74-99) mg/dL POC Glucose (mg/dL) 397 H 544 H 500 H (75-99) mg/dL Total Protein (6.3-8.2) g/dL Albumin (3.5-5.0) g/dL 05/20/20 Range/Units 06:50 WBC (3.8-10.6) k/uL MCHC (31.0-37.0) g/dL Neutrophils # (1.3-7.7) k/uL APTT (22.0-30.0) sec Sodium (137-145) mmol/L BUN (7-17) mg/dL Glucose (74-99) mg/dL POC Glucose (mg/dL) 414 H (75-99) mg/dL Total Protein (6.3-8.2) g/dL Albumin (3.5-5.0) g/dL Thrombosis Risk Factor Assmnt - Choose All That Apply Any of the Below Risk Factors Present?: Yes Each Factor Represents 1 point: Abnormal pulmonary function (COPD), Obesity (BMI >25), Swollen legs (current) Other Risk Factors: Yes Each Risk Factor Represents 2 Points: Age 61-74 years Other congenital or acquired thrombophilia - If yes, enter type in comment: No Thrombosis Risk Factor Assessment Total Risk Factor Score: 5 Thrombosis Risk Factor Assessment Level: High Risk Assessment and Plan Assessment: Acute on chronic diastolic CHF exacerbation, ejection fraction 50% Acute COPD exacerbation Diabetes mellitus with hyperglycemia Chronic leukocytosis Coronary artery disease with history of stent placement and CABG Previous history of smoking Hypertension Hyperlipidemia History of HI Plan: This is a pleasant 70 years old female who presents with COPD and acute CHF. Continue with steroids, bronchodilators, oxygen as needed, continue with diuretic. Continue with aspirin and Plavix Monitor labs. Pulmonary and cardiology consult. Continue with Levemir and insulin sliding scale.check hemoglobin A1c Labs and medication were reviewed.. Continue same treatment. Continue with symptomatic treatment. Resume home medication. Monitor lytes and vitals. DVT and GI prophylaxis. Further recommendations depends on the clinical course of the patient DVT prophylaxis: Subcutaneous heparin GI Prophylaxis: Pepcid
[2020-05-20 09:56] VITALS: BMI 38.9
--- NOTE | 2020-05-20 10:15 | ECHOF ---
Referral Reason:Heart Failure MEASUREMENTS -------- HEIGHT: 160.0 cm WEIGHT: 99.8 kg BP: 145/77 RVIDd: 3.5 cm (< 3.3) IVSd: 1.5 cm (0.6 - 1.1) LVIDd: 4.5 cm (3.9 - 5.3) LVPWd: 1.6 cm (0.6 - 1.1) IVSs: 2.2 cm LVIDs: 3.2 cm LVPWs: 2.0 cm LA Diam: 4.4 cm (2.7 - 3.8) LAESV Index (A-L): 32.58 ml/m Ao Diam: 3.2 cm (2.0 - 3.7) AV Cusp: 1.8 cm (1.5 - 2.6) MV E Syed: 1.57 m/s MV DecT: 260 ms MV A Syed: 1.42 m/s MV E/A Ratio: 1.11 RAP: 5.00 mmHg RVSP: 44.16 mmHg FINDINGS -------- Sinus rhythm. This was a technically adequate study. The left ventricular size is normal. There is moderate concentric left ventricular hypertrophy. O verall left ventricular systolic function is normal with, an EF between 55 - 60 %. The right ventricle is mildly enlarged. LA is midly dilated 29-33ml/m2. The right atrium was not well visualized. Interatrial and interventricular septum intact. The aortic valve is trileaflet and appears structurally normal. The mitral valve leaflets are moderately thickened. Mild mitral annular calcification present. Mi ld mitral regurgitation is present. [id number] mitral stenosis. The peak and mean MV gradi ents are 12.35mmHg 5.18mmHg as measured by doppler. Mild tricuspid regurgitation present. There is mild pulmonary hypertension. The right ventricular systolic pressure, as measured by Doppler, is 44.16mmHg. The pulmonic valve was not well visualized. The aortic root size is normal. Normal inferior vena cava with normal inspiratory collapse consistent with estimated right atrial pre ssure of 5 mmHg. The inferior vena cava is mildly dilated. There is no pericardial effusion. CONCLUSIONS -------- 1. The left ventricular size is normal. 2. There is moderate concentric left ventricular hypertrophy. 3. Overall left ventricular systolic function is normal with, an EF between 55 - 60 %. 4. The right ventricle is mildly enlarged. 5. LA is midly dilated 29-33ml/m2. 6. The mitral valve leaflets are moderately thickened. 7. Mild mitral annular calcification present. 8. Mild mitral regurgitation is present. 9. [id number] mitral stenosis. 10. The peak and mean MV gradients are 12.35mmHg 5.18mmHg as measured by doppler. 11. Mild tricuspid regurgitation present. 12. There is mild pulmonary hypertension. 13. The right ventricular systolic pressure, as measured by Doppler, is 44.16mmHg. 14. The inferior vena cava is mildly dilated. 15. There is no pericardial effusion. RETAIL PLANNER: Audrey Ferrer RDCS
--- NOTE | 2020-05-20 10:36 | US ---
EXAMINATION TYPE: US venous doppler duplex LE DATE OF EXAM: 05/20/2020 9:38 AM COMPARISON: NONE CLINICAL HISTORY: Rule out DVT. Right GSV harvested for CABG 2009. Bilateral ankle edema. COPD, CHF, asthma per patient. SIDE PERFORMED: Bilateral TECHNIQUE: The lower extremity deep venous system is examined utilizing real time linear array sonog charli with graded compression, doppler sonography and color-flow sonography. VESSELS IMAGED: Common Femoral Vein Deep Femoral Vein Greater Saphenous Vein * (GSV) Femoral Vein Popliteal Vein Small Saphenous Vein * Proximal Calf Veins (* superficial vessels) Bilateral ankle edema channels are seen. There is normal flow, compressibility, vascular waveforms. Right Leg: Negative for DVT Left Leg: Negative for DVT IMPRESSION: No evident deep venous thrombosis at or above the knees
[2020-05-20 11:35] LABS: Glucose,Whole Blood 421 mg/dL (75-99)
--- NOTE | 2020-05-20 12:46 | P.CNPUL ---
History of Present Illness Consult date: 05/20/20 Requesting physician: Bernard King Reason for consult: dyspnea Chief complaint: Shortness of breath, and wheezing for a week History of present illness: 70-year-old white female patient of Dr. Elvira Gonzales, with known history of COPD with underlying FEV1 of 38% of predicted, former smoker, hypertension, previous history of myocardial infarction, coronary artery disease status post coronary artery bypass grafting and stenting, chronic CHF with diastolic dysfunction, diabetes mellitus type 2, hyperlipidemia, who follows with Dr. Monique in the pulmonary clinic for her history of COPD. Patient quit smoking 5 years ago, but does carry 45 year smoking history of up to 3 packs per day. On 05/19/2020 patient presented to the emergency department with complaints of difficulty breathing, her onset of symptoms was in the middle of the night, patient does have occasional cough, which is nonproductive, denied any fever or chills, patient was complaining of wheezing, her symptoms have been ongoing for about a week, she does have some mild leg swelling however states it is chronic, and the patient does not always take her Lasix. Patient is maintained on Symbicort, Spiriva and Ventolin rescue inhaler on a regular basis. Patient does wear oxygen on a regular basis at 3 L/m. Chest x-ray showed enlarged heart and a diffuse interstitial pattern with basilar consolidation and tiny pleural effusions consistent with CHF. Lab work showed mild leukocytosis with white blood cell, 14.1, hemoglobin of 11.7, electrolytes and renal profile were unremarkable, LFTs were within normal limits, troponin was 0.025, proBNP was 721, patient has been afebrile, patient is satting 94% on her usual 3 L/m. Lower 70 Dopplers were negative for DVT, EKG showed sinus rhythm with first- degree AV block and left ventricular hypertrophy with QRS widening, and left bundle branch block pattern. Patient was started on oral Lasix, nebulized bronchodilators, she is improving, breathing easier. Review of Systems All systems: negative Constitutional: Denies chills, Denies fever Eyes: denies blurred vision, denies pain Ears, nose, mouth and throat: Denies headache, Denies sore throat Cardiovascular: Reports dyspnea on exertion, Reports edema, Reports orthopnea, Reports paroxysmal nocturnal dyspnea, Denies chest pain, Denies shortness of breath Respiratory: Reports dyspnea, Denies cough Gastrointestinal: Denies abdominal pain, Denies diarrhea, Denies nausea, Denies vomiting Genitourinary: Denies dysuria, Denies hematuria Musculoskeletal: Denies myalgias Musculoskeletal: bilateral: ankle swelling, foot swelling Integumentary: Denies pruritus, Denies rash Neurological: Denies numbness, Denies weakness Psychiatric: Denies anxiety, Denies depression Endocrine: Denies fatigue, Denies weight change Past Medical History Past Medical History: Asthma, Coronary Artery Disease (CAD), Chest Pain / Angina, Heart Failure, COPD, Diabetes Mellitus, Hyperlipidemia, Hypertension, Myocardial Infarction ([place]), Respiratory Disorder, Syncope Additional Past Medical History / Comment(s): NEBULIZER AT HOME, broncitis, emphysema Last Myocardial Infarction Date:: 2010 History of Any Multi-Drug Resistant Organisms: None Reported Past Surgical History: Cholecystectomy, Coronary Bypass/CABG, Heart Cathete rization With Stent Additional Past Surgical History / Comment(s): 1st stent in 2010, 3 more stents placed -about 2014, open heart surgery 2016. Past Anesthesia/Blood Transfusion Reactions: No Reported Reaction Additional Past Anesthesia/Blood Transfusion Reaction / Comment(s): Claustrophobic Date of Last Stent Placement:: 2014 Past Psychological History: No Psychological Hx Reported Smoking Status: Former smoker Past Alcohol Use History: None Reported Additional Past Alcohol Use History / Comment(s): STARTED SMOKING AT AGE 14- WORKED UP TO 3 PPD, QUIT 2010 Past Drug Use History: None Reported - Past Family History Father Family Medical History: Myocardial Infarction ([place]) Additional Family Medical History / Comment(s): STENT, OPEN HEART SURGERY Mother Additional Family Medical History / Comment(s): DEPRESSION, mental illness Medications and Allergies Home Medications Medication Instructions Recorded Confirmed Type Aspirin 81 mg PO DAILY 12/17/14 05/19/20 History Budesonide-Formot 160-4.5 Mcg 2 puff INHALATION RT-BID 04/18/15 05/19/20 History [Symbicort 160-4.5 Mcg Inhaler] Metoprolol Succinate [Toprol XL] 50 mg PO DAILY 08/30/18 05/19/20 History Ipratropium-Albuterol Nebulize 3 ml INHALATION RT-QID #120 09/03/19 05/19/20 Rx [Duoneb 0.5 mg-3 mg/3 ml Soln] Albuterol Sulfate [Ventolin HFA] 2 puff INHALATION RT-QID PRN 01/06/20 05/19/20 History Clopidogrel [Plavix] 75 mg PO DAILY #30 tab 01/09/20 05/19/20 Rx Furosemide [Lasix] 20 mg PO BID PRN 05/19/20 05/19/20 History INSULIN LISPRO (humaLOG) [humaLOG] 15 units SQ AC-TID 05/19/20 05/19/20 History Insulin Glargine [Lantus] 20 unit SQ HS 05/19/20 05/19/20 History Multivit with Calcium,Iron,Min 1 tab PO DAILY 05/19/20 05/19/20 History [Women's Multivitamin] Allergies Allergy/AdvReac Type Severity Reaction Status Date / Time codeine AdvReac Nausea & Verified 05/19/20 14:15 Vomiting Physical Exam Vitals: Vital Signs Temp Pulse Pulse Resp BP BP Pulse Ox 05/20/20 11:59 72 05/20/20 11:41 74 05/20/20 08:12 72 05/20/20 08:00 76 05/20/20 07:30 97.9 F 73 18 150/72 95 05/20/20 02:08 98.2 F 60 20 152/66 91 L 05/19/20 20:32 98.0 F 76 20 158/76 91 L 05/19/20 18:32 75 05/19/20 18:23 73 05/19/20 15:50 98.4 F 65 16 159/76 94 L 05/19/20 14:33 98.2 F 05/19/20 13:59 71 18 145/77 96 05/19/20 13:34 70 05/19/20 13:24 70 05/19/20 12:59 20 Intake and Output 05/19/20 05/20/20 05/20/20 22:59 06:59 14:59 Output Total 600 1500 Balance -600 -1500 Output: Urine 600 1500 Other: Voiding Method Toilet Toilet Toilet Weight 99.79 kg 99.6 kg GENERAL EXAM: Alert, very pleasant, 70-year-old white female, on 3 L of oxygen a pulse ox of 94% comfortable in no apparent distress. HEAD: Normocephalic/atraumatic. EYES: Normal reaction of pupils, equal size. Conjunctiva pink, sclera white. NOSE: Clear with pink turbinates. THROAT: No erythema or exudates. NECK: No masses, no JVD, no thyroid enlargement, no adenopathy. CHEST: No chest wall deformity. Symmetrical expansion. LUNGS: Equal air entry with mild bibasilar crackles, no wheeze, rhonchi or dullness. CVS: Regular rate and rhythm, normal S1 and S2, no gallops, no murmurs, no rubs ABDOMEN: Soft, nontender. No hepatosplenomegaly, normal bowel sounds, no guar ding or rigidity. EXTREMITIES: No clubbing, mild pretibial ankle and pedal edema, no cyanosis, 2+ pulses and upper and lower extremities. MUSCULOSKELETAL: Muscle strength and tone normal. SPINE: No scoliosis or deformity SKIN: No rashes CENTRAL NERVOUS SYSTEM: Alert and oriented -3. No focal deficits, tone is normal in all 4 extremities. PSYCHIATRIC: Alert and oriented -3. Appropriate affect. Intact judgment and insight. Results - Laboratory Findings CBC and BMP: 05/19/20 12:50 05/19/20 12:50 PT/INR, D-dimer PT 9.8 sec (9.0-12.0) 05/19/20 12:50 INR 0.9 (<1.2) 05/19/20 12:50 Abnormal lab findings: Abnormal Labs 05/19/20 05/19/20 05/19/20 12:50 12:50 12:50 WBC 14.1 H MCHC 30.9 L Neutrophils # 11.6 H APTT 19.6 L Sodium 136 L BUN 20 H Glucose 287 H POC Glucose (mg/dL) Total Protein 5.5 L Albumin 3.1 L 05/19/20 05/19/20 05/19/20 16:53 20:11 20:12 WBC MCHC Neutrophils # APTT Sodium BUN Glucose POC Glucose (mg/dL) 397 H 544 H 500 H Total Protein Albumin 05/20/20 05/20/20 06:50 11:33 WBC MCHC Neutrophils # APTT Sodium BUN Glucose POC Glucose (mg/dL) 414 H 421 H Total Protein Albumin - Diagnostic Findings Chest x-ray: report reviewed, image reviewed Additional studies: Lower extremity Dopplers, EKG, echocardiogram reviewed Assessment and Plan Plan: Assessment: #1. Acute on chronic dyspnea related to acute exacerbation of chronic diastolic CHF with ejection fraction of 50% #2. Mild exacerbation of COPD, likely related to fluid overload and exacerbatio n of CHF #3. Diabetes mellitus type 2 #4. Hypertension #5. Hyperlipidemia #6. Coronary artery disease with prior history of coronary artery bypass grafting and stent placement #7. Former smoker, in remission since 2010, carries 45 years of smoking history of up to 3 packs per day #8. Chronic hypoxic respiratory failure, patient usually wears 3 L of oxygen per minute later 2 history of severe COPD and CHF with diastolic dysfunction #9. Prior history of myocardial infarction #10. Previous history of pneumonia #11. Steroid-induced hyperglycemia Plan: Continue with current medical treatment, continue diuretics, who can probably cut back the IV steroids in view of steroid-induced hyperglycemia, patient is breathing is improving, chest x-ray has been reviewed showing evidence of fluid overload and exacerbation of chronic CHF. Continue nebulized bronchodilators, vital signs have been stable, no fever or chills, no significant congestion, no complete chest pain, no hemoptysis. She continues to improve and consider discharge home in the next 24 hours I performed a history & physical examination of the patient and discussed their management with my nurse practitioner, Raine Arriaga. I reviewed the nurse practitioner's note and agree with the documented findings and plan of care. Lung sounds are positive for mild crackles and some scattered wheezes. The findings and the impression was discussed with the patient. I attest to the documentation by the nurse practitioner. Time with Patient: Greater than 30
--- NOTE | 2020-05-20 13:46 | P.CRDCN ---
History of Present Illness Consult date: 05/20/20 History of present illness: CHIEF COMPLAINT: CHF HISTORY OF PRESENT ILLNESS: This is a 70-year old female with a past medical history significant for asthma, coronary artery disease, COPD, hypertension, hyperlipidemia, and diabetes mellitus. Patient follows in the office with Dr. Flannery. We have been asked to see the patient in consultation for congestive heart failure. Patient examined this morning at the bedside. Patient states she has been having shortness of breath for the past few days. She states she went to the urgent care but they refused to see her secondary to the coronavirus pandemic so she was directed to come to the emergency room. Patient states she has a history of COPD and wears home oxygen. She reports increased shortness of breath over the past few days. She reports a non-productive cough. She denies chest pain. Denies dizziness or lightheadedness. DIAGNOSTICS: EKG reveals sinus rhythm with first-degree AV block. Chest xray heart is enlarged and there is a diffuse interstitial pattern with basilar consolidation and tiny effusions. Correlate for CHF. Laboratory data: WBC 14.1. Hemoglobin 11.7. Platelet count 283. Sodium 136. Potassium 4.3. BUN 20. Creatinine 0.69. Troponin 0.025. BNP 721. Current home cardiac medications include Toprol 50 mg daily, aspirin 81 mg daily, Lasix 20 mg twice a day PRN and Plavix 75 mg daily. Echocardiogram: EF 55-60%, mild tricuspid regurgitation, [id number] mitral stenosis, mild mitral regurgitation, and mild pulmonary hypertension REVIEW OF SYSTEMS: At the time of my exam: CONSTITUTIONAL: Denies fever or chills. HEENT: Denies blurred vision, vision changes, or eye pain. Denies hemoptysis CARDIOVASCULAR: Denies chest pain, orthopnea, PND or palpitations RESPIRATORY: No shortness of breath. GASTROINTESTINAL: Denies abdominal pain. Denies nausea or vomiting. HEMATOLOGIC: Denies bleeding disorders. GENITOURINARY: Denies any blood in urine. SKIN: Denies pruitis. Denies rash. PHYSICAL EXAM: VITAL SIGNS: Reviewed. GENERAL: Well-developed in no acute distress. HEENT: Head is normocephalic. Pupils are equal, round. Sclerae anicteric. Mucous membranes of the mouth are moist. Neck supple. No JVD or thyromegaly LUNGS: Respirations even and unlabored. Lungs diminished. HEART: Regular rate and rhythm. S1 and S2 heard. ABDOMEN: Soft. Nondistended. Nontender. EXTREMITIES: Normal range of motion. No clubbing or cyanosis. Peripheral pulses intact. Trace lower extremity edema NEUROLOGIC: Awake and alert. Oriented x 3. ASSESSMENT: Possible mild exacerbation of chronic diastolic heart failure, EF 55-60% Acute exacerbation of COPD Hypertension Hyperlipidemia Diabetes mellitus, type II, uncontrolled Coronary artery disease with previous stent placement and CABG Former nicotine dependence, in remission PLAN: Continue current cardiac medications Discontinue IV lasix Begin lasix 20mg PO daily Monitor I&O Monitor kidney function Daily weights Further recommendations pending Nurse practitioner note has been reviewed by physician. Signing provider agrees with the documented findings, assessment, and plan of care. Past Medical History Past Medical History: Asthma, Coronary Artery Disease (CAD), Chest Pain / Angina, Heart Failure, COPD, Diabetes Mellitus, Hyperlipidemia, Hypertension, Myocardial Infarction (DE), Respiratory Disorder, Syncope Additional Past Medical History / Comment(s): NEBULIZER AT HOME, broncitis, emphysema Last Myocardial Infarction Date:: 2010 History of Any Multi-Drug Resistant Organisms: None Reported Past Surgical History: Cholecystectomy, Coronary Bypass/CABG, Heart Catheterization With Stent Additional Past Surgical History / Comment(s): 1st stent in 2010, 3 more stents placed -about 2014, open heart surgery 2016. Past Anesthesia/Blood Transfusion Reactions: No Reported Reaction Additional Past Anesthesia/Blood Transfusion Reaction / Comment(s): Claustrophobic Date of Last Stent Placement:: 2014 Past Psychological History: No Psychological Hx Reported Smoking Status: Former smoker Past Alcohol Use History: None Reported Additional Past Alcohol Use History / Comment(s): STARTED SMOKING AT AGE 14- WORKED UP TO 3 [employer], QUIT 2010 Past Drug Use History: None Reported - Past Family History Father Family Medical History: Myocardial Infarction (DE) Additional Family Medical History / Comment(s): STENT, OPEN HEART SURGERY Mother Additional Family Medical History / Comment(s): DEPRESSION, mental illness Medications and Allergies Home Medications Medication Instructions Recorded Confirmed Type Aspirin 81 mg PO DAILY 12/17/14 05/19/20 History Budesonide-Formot 160-4.5 Mcg 2 puff INHALATION RT-BID 04/18/15 05/19/20 History [Symbicort 160-4.5 Mcg Inhaler] Metoprolol Succinate [Toprol XL] 50 mg PO DAILY 08/30/18 05/19/20 History Ipratropium-Albuterol Nebulize 3 ml INHALATION RT-QID #120 09/03/19 05/19/20 Rx [Duoneb 0.5 mg-3 mg/3 ml Soln] Albuterol Sulfate [Ventolin HFA] 2 puff INHALATION RT-QID PRN 01/06/20 05/19/20 History Clopidogrel [Plavix] 75 mg PO DAILY #30 tab 01/09/20 05/19/20 Rx Furosemide [Lasix] 20 mg PO BID PRN 05/19/20 05/19/20 History INSULIN LISPRO (humaLOG) [humaLOG] 15 units SQ AC-TID 05/19/20 05/19/20 History Insulin Glargine [Lantus] 20 unit SQ HS 05/19/20 05/19/20 History Multivit with Calcium,Iron,Min 1 tab PO DAILY 05/19/20 05/19/20 History [Women's Multivitamin] Allergies Allergy/AdvReac Type Severity Reaction Status Date / Time codeine AdvReac Nausea & Verified 05/19/20 14:15 Vomiting Physical Exam Vitals: Vital Signs Temp Pulse Pulse Resp BP BP Pulse Ox 05/20/20 11:59 72 05/20/20 11:41 74 05/20/20 08:12 72 05/20/20 08:00 76 05/20/20 07:30 97.9 F 73 18 150/72 95 05/20/20 02:08 98.2 F 60 20 152/66 91 L 05/19/20 20:32 98.0 F 76 20 158/76 91 L 05/19/20 18:32 75 05/19/20 18:23 73 05/19/20 15:50 98.4 F 65 16 159/76 94 L 05/19/20 14:33 98.2 F 05/19/20 13:59 71 18 145/77 96 05/19/20 13:34 70 05/19/20 13:24 70 05/19/20 12:59 20 Intake and Output 05/19/20 05/20/20 05/20/20 22:59 06:59 14:59 Intake Total 440 Output Total 600 1500 Balance -600 -1500 440 Intake: Oral 240 Other 200 Output: Urine 600 1500 Other: Voiding Method Toilet Toilet Toilet Weight 99.79 kg 99.6 kg Results 05/19/20 12:50 05/19/20 12:50 Cardiac Enzymes 05/19/20 05/19/20 Range/Units 12:50 12:50 AST 26 (14-36) U/L Troponin I 0.025 (0.000-0.034) ng/mL Coagulation 05/19/20 Range/Units 12:50 PT 9.8 (9.0-12.0) sec APTT 19.6 L (22.0-30.0) sec CBC 05/19/20 Range/Units 12:50 WBC 14.1 H (3.8-10.6) k/uL RBC 3.94 (3.80-5.40) m/uL Hgb 11.7 (11.4-16.0) gm/dL Hct 37.8 (34.0-46.0) % Plt Count 283 (150-450) k/uL Comprehensive Metabolic Panel 05/19/20 Range/Units 12:50 Sodium 136 L (137-145) mmol/L Potassium 4.3 (3.5-5.1) mmol/L Chloride 102 (98-107) mmol/L Carbon Dioxide 29 (22-30) mmol/L BUN 20 H (7-17) mg/dL Creatinine 0.69 (0.52-1.04) mg/dL Glucose 287 H (74-99) mg/dL Calcium 8.8 (8.4-10.2) mg/dL AST 26 (14-36) U/L ALT 26 (4-34) U/L Alkaline Phosphatase 61 (38-126) U/L Total Protein 5.5 L (6.3-8.2) g/dL Albumin 3.1 L (3.5-5.0) g/dL Current Medications Generic Name Dose Route Start Last Admin Trade Name Freq PRN Reason Stop Dose Admin Albuterol Sulfate 2 puff 05/19/20 16:09 Albuterol Hfa Inhaler INHALATION RT-QID PRN Shortness Of Breath Albuterol/Ipratropium 3 ml 05/19/20 16:00 05/20/20 11:41 Ipratropium-Albuterol 3 Ml Neb INHALATION 3 ml RT-QID KAREN Administration Albuterol/Ipratropium 3 ml 05/19/20 14:02 Ipratropium-Albuterol 3 Ml Neb INHALATION RT-Q4H PRN Shortness Of Breath Or Wheezing Aspirin 325 mg 05/20/20 09:00 05/20/20 08:08 Aspirin 325 Mg Tab PO 325 mg DAILY KAREN Administration Budesonide/Formoterol Fumarate 2 puff 05/19/20 20:00 05/20/20 08:01 Symbicort 160-4.5 Mcg Inhaler INHALATION 2 puff RT-BID KAREN Administration Clopidogrel Bisulfate 75 mg 05/20/20 09:00 05/20/20 08:08 Clopidogrel 75 Mg Tab PO 75 mg DAILY KAREN Administration Famotidine 20 mg 05/20/20 09:00 05/20/20 08:14 Famotidine 20 Mg/2 Ml Vial IV 20 mg Q12HR KAREN Administration Furosemide 20 mg 05/20/20 16:00 Furosemide 20 Mg Tab PO Q24H KAREN Heparin Sodium (Porcine) 5,000 unit 05/20/20 09:00 05/20/20 08:07 Heparin Sodium,Porcine 5,000 Unit/Ml 1 Ml Vial SQ 5,000 unit Q12HR KAREN Administration Insulin Aspart 0 unit 05/19/20 21:00 05/20/20 12:05 Insulin Aspart (Novolog) 100 Unit/Ml Vial SQ 8 unit ACHS KAREN Administration Protocol Insulin Aspart 15 unit 05/20/20 07:30 05/20/20 12:04 Insulin Aspart (Novolog) 100 Unit/Ml Vial SQ 15 unit AC-TID KAREN Administration Insulin Detemir 35 unit 05/19/20 21:00 05/19/20 21:15 Insulin Detemir (Levemir) 100 Unit/Ml Syr SQ 15 unit HS KAREN Administration Metoprolol Succinate 50 mg 05/20/20 09:00 05/20/20 08:14 Metoprolol Succinate (Er) 50 Mg Tab.Er.24h PO 50 mg DAILY KAREN Administration Nitroglycerin 1 inch 05/19/20 14:15 05/20/20 12:04 Nitroglycerin Oint 1 Inch/Gm Packet TOPICAL 1 inch QID KAREN Administration Sodium Chloride 10 ml 05/19/20 21:00 05/20/20 08:06 Sodium Chloride 0.9% Flush 10 Ml Syringe IV 10 ml BID KAREN Administration Intake and Output 05/19/20 05/20/2020 22:59 06:59 14:59 Intake Total 440 Output Total 600 1500 Balance -600 -1500 440 Intake: Oral 240 Other 200 Output: Urine 600 1500 Other: Voiding Method Toilet Toilet Toilet Weight 99.79 kg 99.6 kg Patient Weight 05/21/20 06:59 Weight 99.6 kg 05/19/20 12:50 05/19/20 12:50
[2020-05-20] MEDS ORDERED: FUROSEMIDE 20 MG TAB PO SCH (16:00)
[2020-05-20 16:24] LABS: Glucose,Whole Blood 312 mg/dL (75-99)
[2020-05-20 16:38] LABS: Hemoglobin A1C 12.3 % (4.0-6.0)
[2020-05-20 20:13] LABS: Glucose,Whole Blood 428 mg/dL (75-99)
[2020-05-20] MEDS: FAMOTIDINE 20 MG TAB PO SCH (20:35)
[2020-05-20] MEDS ORDERED: INSULIN DETEMIR (LEVEMIR) 100 UNIT/ML SYR SQ SCH (21:00)
[2020-05-21] MEDS ORDERED: MELATONIN 5 MG TABLET PO STA (00:11)
[2020-05-21 06:20] LABS: Glucose,Whole Blood 319 mg/dL (75-99)
[2020-05-21] MEDS ORDERED: INSULIN DETEMIR (LEVEMIR) 100 UNIT/ML SYR SQ SCH ×2 (07:00→21:00)
[2020-05-21 07:53] VITALS: BP 109/58; RESP 20; TEMP 97.5
[2020-05-21] MEDS: NITROGLYCERIN OINT 1 INCH/GM PACKET TOPICAL SCH (07:53)
[2020-05-21] MEDS: INSULIN ASPART (NovoLOG) 100 UNIT/ML VIAL SQ SCH ×4 (07:55→12:51)
[2020-05-21] MEDS: ASPIRIN 325 MG TAB PO SCH (07:56)
[2020-05-21] MEDS: HEPARIN SODIUM,PORCINE 5,000 UNIT/ML 1 ML VIAL SQ SCH (07:56)
[2020-05-21] MEDS: FAMOTIDINE 20 MG TAB PO SCH (07:56)
[2020-05-21] MEDS: METOPROLOL SUCCINATE (ER) 50 MG TAB.ER.24H PO SCH (07:56)
[2020-05-21] MEDS: CLOPIDOGREL 75 MG TAB PO SCH (07:56)
[2020-05-21] MEDS: IPRATROPIUM-ALBUTEROL 3 ML NEB INHALATION SCH ×2 (08:01→11:46)
[2020-05-21] MEDS: SYMBICORT 160-4.5 MCG INHALER INHALATION SCH (08:01)
[2020-05-21 08:13] VITALS: PULSE 72
[2020-05-21] MEDS ORDERED: FUROSEMIDE 20 MG TAB PO SCH (09:00)
[2020-05-21 11:34] LABS: Glucose,Whole Blood 181 mg/dL (75-99)
--- NOTE | 2020-05-21 11:52 | P.PN ---
Subjective Progress Note Date: 05/21/20 Principal diagnosis: Acute on chronic dyspnea, related to acute exacerbation of chronic diastolic CHF, mild exacerbation of COPD 70-year-old white female patient of Dr. Elvira Gonzales, with known history of COPD with underlying FEV1 of 38% of predicted, former smoker, hypertension, previous history of myocardial infarction, coronary artery disease status post coronary artery bypass grafting and stenting, chronic CHF with diastolic dysfunction, diabetes mellitus type 2, hyperlipidemia, who follows with Dr. Monique in the pulmonary clinic for her history of COPD. Patient quit smoking 5 years ago, but does carry 45 year smoking history of up to 3 packs per day. On 05/19/2020 patient presented to the emergency department with complaints of difficulty breathing, her onset of symptoms was in the middle of the night, patient does have occasional cough, which is nonproductive, denied any fever or chills, patient was complaining of wheezing, her symptoms have been ongoing for about a week, she does have some mild leg swelling however states it is chronic, and the patient does not always take her Lasix. Patient is maintained on Symbicort, Spiriva and Ventolin rescue inhaler on a regular basis. Patient does wear oxygen on a regular basis at 3 L/m. Chest x-ray showed enlarged heart and a diffuse interstitial pattern with basilar consolidation and tiny pleural effu sions consistent with CHF. Lab work showed mild leukocytosis with white blood cell, 14.1, hemoglobin of 11.7, electrolytes and renal profile were unremarkable, LFTs were within normal limits, troponin was 0.025, proBNP was 721, patient has been afebrile, patient is satting 94% on her usual 3 L/m. Lower 70 Dopplers were negative for DVT, EKG showed sinus rhythm with first- degree AV block and left ventricular hypertrophy with QRS widening, and left bundle branch block pattern. Patient was started on oral Lasix, nebulized bronchodilators, she is improving, breathing easier. On 05/21/2020 patient seen in follow-up on observation unit. She is breathing easier today, less bronchospastic, she is currently on 3 L of oxygen and this was patient wears usually at home on a regular basis, she's had no acute events overnight, no fever no chills, patient is on oral dose of Lasix, [place] broncho dilators, IV steroids, she is improving, from pulmonary perspective she can be considered for discharge home today. Objective - Vital Signs Vital signs: Vital Signs Temp 97.5 F L 05/21/20 07:52 Pulse 72 05/21/20 08:12 Resp 20 05/21/20 08:03 BP 109/58 05/21/20 07:52 Pulse Ox 97 05/21/20 07:52 Intake & Output 05/20/20 05/21/20 05/21/20 18:59 06:59 18:59 Intake Total 440 600 300 Output Total 1800 Balance 440 -1200 300 Weight 99.6 kg 100.3 kg Intake: Oral 240 600 300 Other 200 Output: Urine 1800 Other: Voiding Method Toilet Toilet Toilet # Voids 1 # Bowel Movements 2 - Exam GENERAL EXAM: Alert, very pleasant, 70-year-old white female, on 3 L of oxygen a pulse ox of 97% comfortable in no apparent distress. HEAD: Normocephalic/atraumatic. EYES: Normal reaction of pupils, equal size. Conjunctiva pink, sclera white. NOSE: Clear with pink turbinates. THROAT: No erythema or exudates. NECK: No masses, no JVD, no thyroid enlargement, no adenopathy. CHEST: No chest wall deformity. Symmetrical expansion. LUNGS: Equal air entry with mild bibasilar crackles, no wheeze, rhonchi or dullness. CVS: Regular rate and rhythm, normal S1 and S2, no gallops, no murmurs, no rubs ABDOMEN: Soft, nontender. No hepatosplenomegaly, normal bowel sounds, no guarding or rigidity. EXTREMITIES: No clubbing, mild pretibial ankle and pedal edema, no cyanosis, 2+ pulses and upper and lower extremities. MUSCULOSKELETAL: Muscle strength and tone normal. SPINE: No scoliosis or deformity SKIN: No rashes CENTRAL NERVOUS SYSTEM: Alert and oriented -3. No focal deficits, tone is normal in all 4 extremities. PSYCHIATRIC: Alert and oriented -3. Appropriate affect. Intact judgment and insight. - Labs CBC & Chem 7: 05/19/20 12:50 05/19/20 12:50 Labs: Abnormal Lab Results - Last 24 Hours (Table) 05/19/20 05/20/20 05/20/20 Range/Units 12:50 16:22 20:12 POC Glucose (mg/dL) 312 H 428 H (75-99) mg/dL Hemoglobin A1c 12.3 H (4.0-6.0) % 05/21/20 05/21/20 Range/Units 06:19 11:32 POC Glucose (mg/dL) 319 H 181 H (75-99) mg/dL Hemoglobin A1c (4.0-6.0) % Microbiology - Last 24 Hours (Table) 05/19/20 12:50 Blood Culture - Preliminary Blood No Growth after 24 hours Assessment and Plan Plan: Assessment: #1. Acute on chronic dyspnea related to acute exacerbation of chronic diastolic CHF with ejection fraction of 50% #2. Mild exacerbation of COPD, likely related to fluid overload and exacerbation of CHF #3. Diabetes mellitus type 2 #4. Hypertension #5. Hyperlipidemia #6. Coronary artery disease with prior history of coronary artery bypass grafting and stent placement #7. Former smoker, in remission since 2010, carries 45 years of smoking history of up to 3 packs per day #8. Chronic hypoxic respiratory failure, patient usually wears 3 L of oxygen per minute later 2 history of severe COPD and CHF with diastolic dysfunction #9. Prior history of myocardial infarction #10. Previous history of pneumonia #11. Steroid-induced hyperglycemia Plan: Patient is doing well, improving, less wheezy, less dyspneic, increase activity as tolerated, no acute events overnight, no fever or chills. Patient is stable for discharge home today, she will need outpatient follow-up with Dr. Monique in the office in one to 2 weeks I performed a history & physical examination of the patient and discussed their management with my nurse practitioner, Raine Arriaga. I reviewed the nurse practitioner's note and agree with the documented findings and plan of care. Lung sounds are positive for mild crackles and some scattered wheezes. The findings and the impression was discussed with the patient. I attest to the documentation by the nurse practitioner. Time with Patient: Less than 30
--- NOTE | 2020-05-21 22:29 | P.DS ---
Providers Date of admission: 05/20/20 10:51 Attending physician: Tesha Palomo Consults: 05/19/20 14:02 Consult Physician Routine Consulting Provider: Saba Preston Consult Reason/Comments: copd Do you want consulting provider notified?: Yes Consult Physician Routine Consulting Provider: Ishaan Sarabia Consult Reason/Comments: chf Do you want consulting provider notified?: Yes Primary care physician: Elvira Gonzales Hospital Course: Diagnoses: Acute on chronic diastolic CHF exacerbation, ejection fraction 50% Acute COPD exacerbation, mild. Improved Chronic hypoxic respiratory failure Diabetes mellitus with hyperglycemia Chronic leukocytosis Coronary artery disease with history of stent placement and CABG Previous history of smoking Hypertension Hyperlipidemia History of [place] hospital course This is a pleasant 70 years old female with multiple medical problems as below including asthma, hypertension, diabetes type 2 insulin-dependent, hyperlipidemia, history of [place], coronary artery disease with history of stent placement in 2010 and 2014, coronary artery bypass graft in 2016, previous history of smoking, congestive heart failure and COPD. She is a patient of Dr. Zelaya.she follow with for her copd. she supposed to see in office to check her heart. Patient presents because of acute dyspnea of one day duration , associated with little cough , patient has been evaluated by route agent and dehydrating press operator. Echocardiogram from 12/2019: Ejection fraction 50-55%. Moderate LVH. She was treated with steroids and Lasix. Patient showed interval improvement in her dyspnea improved. Patient she was saturating high 90s on 2-3 L oxygen.Patient has Home oxygen at 3 L/h. Breathing is back to baseline Patient's hemoglobin A1c is 12%, her insulin dose was increased from Levemir 20 units at bedtime to 25 units twice a day. (Patient is a day needed 60 units of Levemir totally) patient was instructed to check her glucose for 10 daily and to follow up with her PCP regarding this and she agrees Also patient to continue with NovoLog 15 units with meals Patient was cleared for discharge by the dehydrating press operator and route agent Problems and management plan were discussed with the patient and he verbalized understanding and acceptance Patient was found stable and can be discharged home however he needs follow-up as an outpatient. Patient was instructed to follow up with PCP f Dr. Zelaya within one week and patient agrees. Patient also was instructed to follow up with her route agent Dr. Flannery dehydrating press operator Dr. Monique in 1-2 weeks and she agrees. Patient past medical staff to make appointments for her and she agrees with the appointments as stated she will follow up, see discharge instructions Paper prescription is provided for her for consulting [address] dose Gen: patient is a AAOx3, no distress CVS: S1-S2, RRR, no murmur Lungs: B/L CTA, no wheezing Abdomen: soft, no distention, no tenderness, positive bowel sounds Extremity: no leg edema or induration Time spent more than 35 minutes Plan - Discharge Summary Discharge Rx Participant: Yes New Discharge Prescriptions: New Insulin Detemir (Levemir) [Levemir] 25 unit SQ BID #1 vial Continue Aspirin 81 mg PO DAILY Budesonide-Formot 160-4.5 Mcg [Symbicort 160-4.5 Mcg Inhaler] 2 puff INHALATION RT-BID Metoprolol Succinate [Toprol XL] 50 mg PO DAILY Ipratropium-Albuterol Nebulize [Duoneb 0.5 mg-3 mg/3 ml Soln] 3 ml INHALATION RT-QID #120 Albuterol Sulfate [Ventolin HFA] 2 puff INHALATION RT-QID PRN PRN Reason: Shortness Of Breath Clopidogrel [Plavix] 75 mg PO DAILY #30 tab Furosemide [Lasix] 20 mg PO BID PRN PRN Reason: Edema INSULIN LISPRO (humaLOG) [humaLOG] 15 units SQ AC-TID Discontinued Insulin Glargine [Lantus] 20 unit SQ HS Multivit with Calcium,Iron,Min [Women's Multivitamin] 1 tab PO DAILY Discharge Medication List Aspirin 81 mg PO DAILY 12/17/14 [History] Budesonide-Formot 160-4.5 Mcg [Symbicort 160-4.5 Mcg Inhaler] 2 puff INHALATION RT-BID 04/18/15 [History] Metoprolol Succinate [Toprol XL] 50 mg PO DAILY 08/30/18 [History] Ipratropium-Albuterol Nebulize [Duoneb 0.5 mg-3 mg/3 ml Soln] 3 ml INHALATION RT-QID #120 09/03/19 [Rx] Albuterol Sulfate [Ventolin HFA] 2 puff INHALATION RT-QID PRN 01/06/20 [History] Clopidogrel [Plavix] 75 mg PO DAILY #30 tab 01/09/20 [Rx] Furosemide [Lasix] 20 mg PO BID PRN 05/19/20 [History] INSULIN LISPRO (humaLOG) [humaLOG] 15 units SQ AC-TID 05/19/20 [History] Insulin Detemir (Levemir) [Levemir] 25 unit SQ BID #1 vial 05/21/20 [Rx] Follow up Appointment(s)/Referral(s): [facility] [facility] [NON-STAFF] - As Needed Elvira Gonzales MD [Primary Care Provider] - 05/25/20 4:45 pm [facility], [NON-STAFF] - 1-2 Days Jake Flannery MD [STAFF PHYSICIAN] - 06/07/20 4:00 pm [place] Monique MD [STAFF PHYSICIAN] - 06/08/20 10:30 am Patient Instructions/Handouts: Heart Failure (GEN), Diabetic Hyperglycemia (GEN) Activity/Diet/Wound Care/Special Instructions: heart healthy low carbohydrate diet activity is limited till you see your doctor Bronchitic to your doctor drink into her Dr. on your appointment date We recommend to recheck your blood glucose 4 times a day. Before each meal and at bedtime. Keep the results in a logic and bring it to your doctor on your appointment date. If your glucose is more than 400 or less than 70 then call 911 on come to emergency room Discharge Disposition: HOME SELF-CARE
[2020-05-22] MEDS ORDERED: ASPIRIN 81 MG PO SCH (09:00)
== END 2020-05-21 13:50 | disposition home health service (06) ==
LOC: EC 12:10 → 1SOBS 14:02 → OBSVTOIN 05-20 10:51 → INTOOBSV 05-20 10:51 → UNDODISIN 05-21 13:50
PROVIDERS: ADMIT Internal Medicine; ATTEND Internal Medicine
DX: I11.0 Hypertensive heart disease with heart failure (principal); I50.33 Acute on chronic diastolic (congestive) heart failure; J43.9 Emphysema, unspecified; J96.11 Chronic respiratory failure with hypoxia; T38.0X5A Adverse effect of glucocorticoids and synthetic analogues, initial encounter; E09.65 Drug or chemical induced diabetes mellitus with hyperglycemia; D72.829 Elevated white blood cell count, unspecified; I25.10 Atherosclerotic heart disease of native coronary artery without angina pectoris; E78.5 Hyperlipidemia, unspecified; I25.2 Old myocardial infarction; J45.909 Unspecified asthma, uncomplicated; M79.10 Myalgia, unspecified site; F40.240 Claustrophobia; E66.9 Obesity, unspecified; I44.0 Atrioventricular block, first degree; I08.1 Rheumatic disorders of both mitral and tricuspid valves; I27.20 Pulmonary hypertension, unspecified; I44.7 Left bundle-branch block, unspecified; T50.1X6A Underdosing of loop [high-ceiling] diuretics, initial encounter; Z95.1 Presence of aortocoronary bypass graft; Z95.5 Presence of coronary angioplasty implant and graft; Z87.891 Personal history of nicotine dependence; Z79.82 Long term (current) use of aspirin; Z79.51 Long term (current) use of inhaled steroids; Z79.899 Other long term (current) drug therapy; Z79.4 Long term (current) use of insulin; Z79.02 Long term (current) use of antithrombotics/antiplatelets; Z88.5 Allergy status to narcotic agent; Z90.49 Acquired absence of other specified parts of digestive tract; Z87.09 Personal history of other diseases of the respiratory system; Z68.39 Body mass index [BMI] 39.0-39.9, adult; Z87.01 Personal history of pneumonia (recurrent); Z82.49 Family history of ischemic heart disease and other diseases of the circulatory system; Z81.8 Family history of other mental and behavioral disorders
CPT/HCPCS: 96372 ×2; 96375 ×2; 96376 ×2; 96374; 99285; 36415; 94640 ×5; 93005; 93306; 97161; 83880; 80053; 83605; 84484; 85025; 85610; 85730; 87040; 83036; 71046; 93970; G0378 ×3; J1644 ×2; J1940 ×2; J2920; J2930

== ENCOUNTER 2020-08-14 22:02 | Emergency (ER) | payer MEDICARE ==
[2020-08-14 22:24] LABS: Glucose,Whole Blood 480 mg/dL (75-99)
[2020-08-14 23:17] LABS: Basophils # (A) 0.1 k/uL (0-0.2); Basophils % (A) 1 %; Eosinophils # (A) 0.5 k/uL (0-0.7); Eosinophils % (A) 5 %; HGB 14.5 gm/dL (11.4-16.0); Lymphocytes # (A) 1.3 k/uL (1.0-4.8); Lymphocytes % (A) 14 %; MCH 30.9 pg (25.0-35.0); MCV 93.5 fL (80.0-100.0); Monocytes # (A) 0.4 k/uL (0-1.0); Monocytes % (A) 4 %; Neutrophils # (A) 7.4 k/uL (1.3-7.7); Neutrophils % (A) 75 %; Platelet Count 313 k/uL (150-450); RDW 12.4 % (11.5-15.5); WBC 9.9 k/uL (3.8-10.6)
[2020-08-14 23:27] LABS: ALT 14 U/L (4-34); AST 19 U/L (14-36); African American GFR (CKD) 67 (>60 ml/min/1.73 sqM); Albumin 3.3 g/dL (3.5-5.0); Alkaline Phosphatase 103 U/L (38-126); Anion Gap 5 mmol/L; Blood Urea Nitrogen 22 mg/dL (7-17); Carbon Dioxide 28 mmol/L (22-30); Chloride 97 mmol/L (98-107); Non-African American GFR(CKD) 58 (>60 ml/min/1.73 sqM); Potassium 4.9 mmol/L (3.5-5.1); Sodium 130 mmol/L (137-145); Total Bilirubin 0.6 mg/dL (0.2-1.3); Total Protein 6.1 g/dL (6.3-8.2)
--- NOTE | 2020-08-14 23:31 | XR ---
EXAM: XR Chest, 2 Views CLINICAL HISTORY: difficulty breathing TECHNIQUE: Frontal and lateral views of the chest. COMPARISON: 05/19/20 FINDINGS: Lungs: Peribronchial thickening. No consolidation. Pleural space: No significant abnormality. No pneumothorax. Heart: Stable cardiomediastinal silhouette. Mediastinum: Stable postoperative mediastinum. Bones/joints: No acute osseous abnormality. IMPRESSION: Peribronchial thickening can be seen in the setting of bronchiolitis. No consolidation, significant pleural effusions, or pneumothorax.
[2020-08-14 23:38] LABS: Glucose 509 mg/dL (74-99)
--- NOTE | 2020-08-14 23:40 | ED ---
SOB HPI - General Chief Complaint: Shortness of Breath Stated Complaint: Diff Breathing,Asthma Time Seen by Provider: 08/14/20 22:27 Source: patient, family Mode of arrival: ambulatory Limitations: no limitations - History of Present Illness Initial Comments: This patient is 70-year-old woman with history of asthma who presents with complaint that it feels like her asthma is flaring up for approximately 4 days or so. She also has complaint that she noticed a bit of rash to her right forearm. She states that her blood sugars have been running high for number days. The patient denies chest pain. Patient has not noted fever or chills. She is not having a productive cough. No leg pain or swelling. No change in urination or bowel movements. MD Complaint: shortness of breath Onset/Timin -: days(s) Consistency: constant Improves With: nothing Worsens With: nothing Known History Of: asthma Associated Symptoms: polydipsia, rash Treatments Prior to Arrival: none - Related Data Home Medications Medication Instructions Recorded Confirmed Aspirin 81 mg PO DAILY 12/17/14 05/19/20 Budesonide-Formot 160-4.5 Mcg 2 puff INHALATION RT-BID 04/18/15 05/19/20 [Symbicort 160-4.5 Mcg Inhaler] Metoprolol Succinate [Toprol XL] 50 mg PO DAILY 08/30/18 05/19/20 Albuterol Sulfate [Ventolin HFA] 2 puff INHALATION RT-QID PRN 01/06/20 05/19/20 Furosemide [Lasix] 20 mg PO BID PRN 05/19/20 05/19/20 INSULIN LISPRO (humaLOG) [humaLOG] 15 units SQ AC-TID 05/19/20 05/19/20 Previous Rx's Medication Instructions Recorded Ipratropium-Albuterol Nebulize 3 ml INHALATION RT-QID #120 09/03/19 [Duoneb 0.5 mg-3 mg/3 ml Soln] Clopidogrel [Plavix] 75 mg PO DAILY #30 tab 01/09/20 Insulin Detemir (Levemir) [Levemir] 25 unit SQ BID #1 vial 05/21/20 Azithromycin [Zithromax Z-pack (6 250 mg PO DIRECTED #6 tab 08/15/20 tabs)] Clobetasol Propionate [Temovate 1 applic TOPICAL BID PRN #30 gm 08/15/20 0.05% Oint] Allergies Allergy/AdvReac Type Severity Reaction Status Date / Time codeine AdvReac Nausea & Verified 08/14/20 22:14 Vomiting Review of Systems ROS Statement: Those systems with pertinent positive or pertinent negative responses have been documented in the HPI. ROS Other: All systems not noted in ROS Statement are negative. Constitutional: Denies: fever, chills, weakness Eyes: Denies: eye pain, vision change ENT: Denies: throat pain, congestion Respiratory: Reports: cough, dyspnea, wheezes. Denies: hemoptysis, stridor Cardiovascular: Denies: chest pain, palpitations, orthopnea, edema, syncope Endocrine: Reports: polydipsia Gastrointestinal: Denies: abdominal pain, nausea, vomiting, diarrhea, constipation Genitourinary: Denies: dysuria, frequency, hematuria Skin: Reports: as per HPI, rash Neurological: Denies: headache, weakness, numbness Past Medical History Past Medical History: Asthma, Coronary Artery Disease (CAD), Chest Pain / Angina, Heart Failure, COPD, Diabetes Mellitus, Hyperlipidemia, Hypertension, Myocardial Infarction ([place]), Respiratory Disorder, Syncope Additional Past Medical History / Comment(s): NEBULIZER AT HOME, broncitis, emphysema Last Myocardial Infarction Date:: 2010 History of Any Multi-Drug Resistant Organisms: None Reported Past Surgical History: Cholecystectomy, Coronary Bypass/CABG, Heart Catheterization With Stent Additional Past Surgical History / Comment(s): 1st stent in 2010, 3 more stents placed -about 2014, open heart surgery 2016. Past Anesthesia/Blood Transfusion Reactions: No Reported Reaction Additional Past Anesthesia/Blood Transfusion Reaction / Comment(s): Claustrophobic Date of Last Stent Placement:: 2014 Past Psychological History: No Psychological Hx Reported Smoking Status: Former smoker Past Alcohol Use History: None Reported Past Drug Use History: None Reported - Past Family History Father Family Medical History: Myocardial Infarction ([place]) Additional Family Medical History / Comment(s): STENT, OPEN HEART SURGERY Mother Additional Family Medical History / Comment(s): DEPRESSION, mental illness General Exam Limitations: no limitations General appearance: alert, in no apparent distress Head exam: Present: atraumatic, normocephalic Eye exam: Present: normal appearance. Absent: scleral icterus, conjunctival injection ENT exam: Present: normal oropharynx Neck exam: Present: normal inspection Respiratory exam: Present: wheezes. Absent: respiratory distress, rales, rhonchi, stridor, accessory muscle use, decreased breath sounds, prolonged expiratory Cardiovascular Exam: Present: regular rate, normal rhythm, normal heart sounds. Absent: systolic murmur, diastolic murmur, rubs, gallop GI/Abdominal exam: Present: soft. Absent: distended, tenderness, guarding, rebound, rigid, mass Extremities exam: Present: normal inspection, normal capillary refill. Absent: pedal edema, calf tenderness Back exam: Present: normal inspection. Absent: CVA tenderness (R), CVA tenderness (L) Neurological exam: Present: alert Skin exam: Present: warm, dry, intact, normal color, rash (There is an appr oximately 6 x 8 area of dermatitis to the dorsal aspect right forearm.) Course Vital Signs 08/14/20 08/15/20 08/15/20 22:10 00:14 00:56 Temperature 98.3 F Pulse Rate 66 67 67 Respiratory 24 20 Rate Blood Pressure 134/56 135/66 O2 Sat by Pulse 96 99 Oximetry 08/15/20 08/15/20 08/15/20 01:00 01:13 02:00 Temperature 98.9 F 98.2 F Pulse Rate 77 67 69 Respiratory 20 20 Rate Blood Pressure 128/67 132/59 O2 Sat by Pulse 97 97 Oximetry Medical Decision Making - Lab Data Result diagrams: 08/14/20 23:08 08/14/20 23:08 Lab Results 08/14/20 08/14/20 08/14/20 Range/Units 22:22 23:08 23:08 WBC 9.9 (3.8-10.6) k/uL RBC 4.70 (3.80-5.40) m/uL Hgb 14.5 (11.4-16.0) gm/dL Hct 44.0 (34.0-46.0) % MCV 93.5 (80.0-100.0) fL MCH 30.9 (25.0-35.0) pg MCHC 33.0 (31.0-37.0) g/dL RDW 12.4 (11.5-15.5) % Plt Count 313 (150-450) k/uL MPV 7.0 Neutrophils % 75 % Lymphocytes % 14 % Monocytes % 4 % Eosinophils % 5 % Basophils % 1 % Neutrophils # 7.4 (1.3-7.7) k/uL Lymphocytes # 1.3 (1.0-4.8) k/uL Monocytes # 0.4 (0-1.0) k/uL Eosinophils # 0.5 (0-0.7) k/uL Basophils # 0.1 (0-0.2) k/uL PT 9.4 (9.0-12.0) sec INR 0.9 (<1.2) APTT 21.9 L (22.0-30.0) sec D-Dimer 0.68 H (<0.60) mg/L FEU Sodium (137-145) mmol/L Potassium (3.5-5.1) mmol/L Chloride (98-107) mmol/L Carbon Dioxide (22-30) mmol/L Anion Gap mmol/L BUN (7-17) mg/dL Creatinine (0.52-1.04) mg/dL Est GFR (CKD-EPI)AfAm (>60 ml/min/1.73 sqM) Est GFR (CKD-EPI)NonAf (>60 ml/min/1.73 sqM) Glucose (74-99) mg/dL POC Glucose (mg/dL) 480 H (75-99) mg/dL POC Glu Director Of Early Childhood ID Sedrick De La Torre Plasma Lactic Acid Dennis (0.7-2.0) mmol/L Calcium (8.4-10.2) mg/dL Total Bilirubin (0.2-1.3) mg/dL AST (14-36) U/L ALT (4-34) U/L Alkaline Phosphatase (38-126) U/L Troponin I (0.000-0.034) ng/mL NT-Pro-B Natriuret Pep pg/mL Total Protein (6.3-8.2) g/dL Albumin (3.5-5.0) g/dL Acetone, Qual (Negative) 08/14/20 08/14/20 08/14/20 Range/Units 23:08 23:08 23:08 WBC (3.8-10.6) k/uL RBC (3.80-5.40) m/uL Hgb (11.4-16.0) gm/dL Hct (34.0-46.0) % MCV (80.0-100.0) fL MCH (25.0-35.0) pg MCHC (31.0-37.0) g/dL RDW (11.5-15.5) % Plt Count (150-450) k/uL MPV Neutrophils % % Lymphocytes % % Monocytes % % Eosinophils % % Basophils % % Neutrophils # (1.3-7.7) k/uL Lymphocytes # (1.0-4.8) k/uL Monocytes # (0-1.0) k/uL Eosinophils # (0-0.7) k/uL Basophils # (0-0.2) k/uL PT (9.0-12.0) sec INR (<1.2) APTT (22.0-30.0) sec D-Dimer (<0.60) mg/L FEU Sodium 130 L (137-145) mmol/L Potassium 4.9 (3.5-5.1) mmol/L Chloride 97 L (98-107) mmol/L Carbon Dioxide 28 (22-30) mmol/L Anion Gap 5 mmol/L BUN 22 H (7-17) mg/dL Creatinine 0.99 (0.52-1.04) mg/dL Est GFR (CKD-EPI)AfAm 67 (>60 ml/min/1.73 sqM) Est GFR (CKD-EPI)NonAf 58 (>60 ml/min/1.73 sqM) Glucose 509 H* (74-99) mg/dL POC Glucose (mg/dL) (75-99) mg/dL POC Glu Director Of Early Childhood ID Plasma Lactic Acid Dennis 1.5 (0.7-2.0) mmol/L Calcium 9.0 (8.4-10.2) mg/dL Total Bilirubin 0.6 (0.2-1.3) mg/dL AST 19 (14-36) U/L ALT 14 (4-34) U/L Alkaline Phosphatase 103 (38-126) U/L Troponin I 0.018 (0.000-0.034) ng/mL NT-Pro-B Natriuret Pep pg/mL Total Protein 6.1 L (6.3-8.2) g/dL Albumin 3.3 L (3.5-5.0) g/dL Acetone, Qual Negative (Negative) 08/14/20 08/15/20 Range/Units 23:08 01:13 WBC (3.8-10.6) k/uL RBC (3.80-5.40) m/uL Hgb (11.4-16.0) gm/dL Hct (34.0-46.0) % MCV (80.0-100.0) fL MCH (25.0-35.0) pg MCHC (31.0-37.0) g/dL RDW (11.5-15.5) % Plt Count (150-450) k/uL MPV Neutrophils % % Lymphocytes % % Monocytes % % Eosinophils % % Basophils % % Neutrophils # (1.3-7.7) k/uL Lymphocytes # (1.0-4.8) k/uL Monocytes # (0-1.0) k/uL Eosinophils # (0-0.7) k/uL Basophils # (0-0.2) k/uL PT (9.0-12.0) sec INR (<1.2) APTT (22.0-30.0) sec D-Dimer (<0.60) mg/L FEU Sodium (137-145) mmol/L Potassium (3.5-5.1) mmol/L Chloride (98-107) mmol/L Carbon Dioxide (22-30) mmol/L Anion Gap mmol/L BUN (7-17) mg/dL Creatinine (0.52-1.04) mg/dL Est GFR (CKD-EPI)AfAm (>60 ml/min/1.73 sqM) Est GFR (CKD-EPI)NonAf (>60 ml/min/1.73 sqM) Glucose (74-99) mg/dL POC Glucose (mg/dL) 377 H (75-99) mg/dL POC Glu Director Of Early Childhood ID Plasma Lactic Acid Dennis (0.7-2.0) mmol/L Calcium (8.4-10.2) mg/dL Total Bilirubin (0.2-1.3) mg/dL AST (14-36) U/L ALT (4-34) U/L Alkaline Phosphatase (38-126) U/L Troponin I (0.000-0.034) ng/mL NT-Pro-B Natriuret Pep 486 pg/mL Total Protein (6.3-8.2) g/dL Albumin (3.5-5.0) g/dL Acetone, Qual (Negative) - EKG Data EKG shows normal: sinus rhythm, intervals (NE interval 236 ms, consistent with first-degree AV block. QRS duration 150 ms, consistent with left bundle branch block. QTC 468 ms, normal.), QRS complexes ((Bundle-branch block) Rate: normal (Rate 62 bpm) When compared to previous EKG there are: no significant change, other (Comparison from December 2019) Disposition Clinical Impression: Dermatitis, Bronchitis, Hyperglycemia Disposition: HOME SELF-CARE Instructions (If sedation given, give patient instructions): Dermatitis (ED), Acute Bronchitis (ED), Diabetic Hyperglycemia (ED) Prescriptions: Clobetasol Propionate [Temovate 0.05% Oint] 1 applic TOPICAL BID PRN #30 gm PRN Reason: Rash Azithromycin [Zithromax Z-pack (6 tabs)] 250 mg PO DIRECTED #6 tab Is patient prescribed a controlled substance at d/c from ED?: No Referrals: Elvira Gonzales MD [Primary Care Provider] - 1-2 days
[2020-08-14] MEDS ORDERED: INSULIN REGULAR 100 UNIT/ML VIAL SQ STA (23:41)
[2020-08-14] MEDS ORDERED: SODIUM CHLORIDE 0.9% 1,000 ML IV ONE (23:41)
[2020-08-14 23:45] LABS: INR 0.9 (<1.2); Partial Thromboplastin Time 21.9 sec (22.0-30.0); Prothrombin Time 9.4 sec (9.0-12.0)
[2020-08-14 23:48] LABS: D-Dimer 0.68 mg/L FEU (<0.60)
[2020-08-15] MEDS ORDERED: ALBUTEROL NEBULIZED 2.5 MG/3 ML INHALATION STA (00:09)
[2020-08-15 00:16] VITALS: RESP 20
[2020-08-15 01:14] LABS: Glucose,Whole Blood 377 mg/dL (75-99)
[2020-08-15] MEDS ORDERED: SODIUM CHLORIDE 0.9% 1,000 ML IV ONE (01:17)
[2020-08-15 03:02] VITALS: BP 138/72; PULSE 78; TEMP 98.3
== END 2020-08-15 03:01 | disposition home or self-care (01) ==
LOC: EC 22:02
DX: J40 Bronchitis, not specified as acute or chronic (principal); E11.65 Type 2 diabetes mellitus with hyperglycemia; L30.9 Dermatitis, unspecified; J44.9 Chronic obstructive pulmonary disease, unspecified; I25.119 Atherosclerotic heart disease of native coronary artery with unspecified angina pectoris; I11.0 Hypertensive heart disease with heart failure; I50.9 Heart failure, unspecified; I25.2 Old myocardial infarction; Z79.82 Long term (current) use of aspirin; Z79.51 Long term (current) use of inhaled steroids; Z79.899 Other long term (current) drug therapy; Z79.4 Long term (current) use of insulin; Z20.828 Contact with and (suspected) exposure to other viral communicable diseases; Z87.09 Personal history of other diseases of the respiratory system; Z87.891 Personal history of nicotine dependence; Z88.5 Allergy status to narcotic agent; Z95.1 Presence of aortocoronary bypass graft; Z95.5 Presence of coronary angioplasty implant and graft
CPT/HCPCS: 99285; 96361; 96360; 36415 ×2; 94640; 93005; 85379; 83880; 80053; 82009; 83605; 84484; 85025; 85610; 85730; 71046; U0003

== ENCOUNTER 2020-09-23 16:34 | Observation (INO) | payer MEDICARE ==
[2020-09-23] MEDS ORDERED: SODIUM CHLORIDE 0.9% 1,000 ML IV STA (16:52)
[2020-09-23 17:00] LABS: Glucose,Whole Blood >600 mg/dL (75-99)
[2020-09-23 17:13] LABS: Basophils # (A) 0.1 k/uL (0-0.2); Basophils % (A) 1 %; Eosinophils # (A) 0.3 k/uL (0-0.7); Eosinophils % (A) 2 %; HCT 45.7 % (34.0-46.0); HGB 14.8 gm/dL (11.4-16.0); Lymphocytes # (A) 1.2 k/uL (1.0-4.8); Lymphocytes % (A) 9 %; MCH 30.6 pg (25.0-35.0); MCHC 32.4 g/dL (31.0-37.0); MCV 94.4 fL (80.0-100.0); Mean Platelet Volume 7.6; Monocytes # (A) 0.5 k/uL (0-1.0); Monocytes % (A) 4 %; Neutrophils % (A) 83 %; Platelet Count 317 k/uL (150-450); RBC 4.84 m/uL (3.80-5.40); RDW 12.4 % (11.5-15.5); WBC 13.3 k/uL (3.8-10.6)
[2020-09-23 17:20] LABS: ALT 23 U/L (4-34); AST 22 U/L (14-36); African American GFR (CKD) 67 (>60 ml/min/1.73 sqM); Albumin 3.7 g/dL (3.5-5.0); Alkaline Phosphatase 142 U/L (38-126); Anion Gap 14 mmol/L; Blood Urea Nitrogen 25 mg/dL (7-17); Calcium 9.2 mg/dL (8.4-10.2); Carbon Dioxide 26 mmol/L (22-30); Chloride 89 mmol/L (98-107); Non-African American GFR(CKD) 58 (>60 ml/min/1.73 sqM); Potassium 4.8 mmol/L (3.5-5.1); Sodium 129 mmol/L (137-145); Total Bilirubin 1.2 mg/dL (0.2-1.3); Total Protein 6.6 g/dL (6.3-8.2)
[2020-09-23 17:29] LABS: Appearance,Urine Cloudy (Clear); Bacteria,Urine Rare /hpf; Bilirubin,Urine Negative (Negative); Blood,Urine Negative (Negative); Color,Urine Light Yellow; Glucose,Urine (UA) 4+ (Negative); Ketones,Urine Negative (Negative); Leukocyte Esterase,Urine Large (Negative); Mucus,Urine Rare /hpf; Nitrite,Urine Negative (Negative); Protein,Urine 1+ (Negative); RBC,Urine 9 /hpf (0-5); Specific Gravity,Urine 1.027 (1.001-1.035); Squamous Epithelial Cell,Urine 4 /hpf (0-4); Urobilinogen,Urine <2.0 mg/dL (<2.0); WBC,Urine 45 /hpf (0-5)
--- NOTE | 2020-09-23 17:36 | ED ---
General Adult HPI - General Chief complaint: Recheck/Abnormal Lab/Rx Stated complaint: high sugar and everything Time Seen by Provider: 09/23/20 16:49 Source: patient Mode of arrival: wheelchair Limitations: no limitations - History of Present Illness Initial comments: 70-year-old female presents to the emergency room for a chief complaint of high blood sugar. Patient reports that her primary care provider told her that her blood sugar was very high and she needs to be evaluated. Patient states her daughter also thought she seemed confused. Patient states her blood sugar has been high for quite sometime. She does use her insulin at home. Patient denies any other specific complaints.Patient has no other complaints at this time including shortness of breath, chest pain, abdominal pain, nausea or vomiting, headache, or visual changes. - Related Data Home Medications Medication Instructions Recorded Confirmed Aspirin 81 mg PO DAILY 12/17/14 05/19/20 Budesonide-Formot 160-4.5 Mcg 2 puff INHALATION RT-BID 04/18/15 05/19/20 [Symbicort 160-4.5 Mcg Inhaler] Metoprolol Succinate [Toprol XL] 50 mg PO DAILY 08/30/18 05/19/20 Albuterol Sulfate [Ventolin HFA] 2 puff INHALATION RT-QID PRN 01/06/20 05/19/20 Furosemide [Lasix] 20 mg PO BID PRN 05/19/20 05/19/20 INSULIN LISPRO (humaLOG) [humaLOG] 15 units SQ AC-TID 05/19/20 05/19/20 Previous Rx's Medication Instructions Recorded Ipratropium-Albuterol Nebulize 3 ml INHALATION RT-QID #120 09/03/19 [Duoneb 0.5 mg-3 mg/3 ml Soln] Clopidogrel [Plavix] 75 mg PO DAILY #30 tab 01/09/20 Insulin Detemir (Levemir) [Levemir] 25 unit SQ BID #1 vial 05/21/20 Azithromycin [Zithromax Z-pack (6 250 mg PO DIRECTED #6 tab 08/15/20 tabs)] Clobetasol Propionate [Temovate 1 applic TOPICAL BID PRN #30 gm 08/15/20 0.05% Oint] Allergies Allergy/AdvReac Type Severity Reaction Status Date / Time codeine AdvReac Nausea & Verified 09/23/20 16:39 Vomiting Review of Systems ROS Statement: Those systems with pertinent positive or pertinent negative responses have been documented in the HPI. ROS Other: All systems not noted in ROS Statement are negative. Past Medical History Past Medical History: Asthma, Coronary Artery Disease (CAD), Chest Pain / Angina, Heart Failure, COPD, Diabetes Mellitus, Hyperlipidemia, Hypertension, Myocardial Infarction ([place]), Respiratory Disorder, Syncope Additional Past Medical History / Comment(s): NEBULIZER AT HOME, broncitis, emphysema Last Myocardial Infarction Date:: 2010 History of Any Multi-Drug Resistant Organisms: None Reported Past Surgical History: Cholecystectomy, Coronary Bypass/CABG, Heart Catheterization With Stent Additional Past Surgical History / Comment(s): 1st stent in 2010, 3 more stents placed -about 2014, open heart surgery 2016. Past Anesthesia/Blood Transfusion Reactions: No Reported Reaction Additional Past Anesthesia/Blood Transfusion Reaction / Comment(s): Claustrophobic Date of Last Stent Placement:: 2014 Past Psychological History: No Psychological Hx Reported Smoking Status: Former smoker Past Alcohol Use History: None Reported Past Drug Use History: None Reported - Past Family History Father Family Medical History: Myocardial Infarction ([place]) Additional Family Medical History / Comment(s): STENT, OPEN HEART SURGERY Mother Additional Family Medical History / Comment(s): DEPRESSION, mental illness General Exam Limitations: no limitations General appearance: alert, in no apparent distress Head exam: Present: atraumatic, normocephalic, normal inspection Eye exam: Present: normal appearance, PERRL, EOMI. Absent: scleral icterus, conjunctival injection ENT exam: Present: normal exam, mucous membranes moist Neck exam: Present: normal inspection, full ROM. Absent: tenderness Respiratory exam: Present: normal lung sounds bilaterally. Absent: respiratory distress, wheezes, rales, rhonchi, stridor Cardiovascular Exam: Present: regular rate, normal rhythm, normal heart sounds GI/Abdominal exam: Present: soft, normal bowel sounds. Absent: distended, tenderness, guarding, rebound, rigid Neurological exam: Present: alert Course Vital Signs 09/23/20 16:40 Temperature 98 F Pulse Rate 64 Respiratory 18 Rate Blood Pressure 133/59 O2 Sat by Pulse 94 L Oximetry Medical Decision Making - Medical Decision Making Vitals are stable. Patient is well appearing. CBC unremarkable. CMP does show an evidence of hyperglycemia with pseudohyponatremia. Glucose is 781. Urinalysis does show 4+ glucose with evidence of urinary tract infection. Ketones are negative. Anion gap 14, no evidence of DKA. Patient was given a liter of fluids, will be kept on maintenance fluids and insulin drip will be started. Patient will be admitted. Case discussed with Tigre Alvarado who accepts admission - Lab Data Result diagrams: 09/23/20 17:00 09/23/20 17:00 Lab Results 09/23/20 09/23/20 09/23/20 Range/Units 16:53 17:00 17:00 WBC 13.3 H (3.8-10.6) k/uL RBC 4.84 (3.80-5.40) m/uL Hgb 14.8 (11.4-16.0) gm/dL Hct 45.7 (34.0-46.0) % MCV 94.4 (80.0-100.0) fL MCH 30.6 (25.0-35.0) pg MCHC 32.4 (31.0-37.0) g/dL RDW 12.4 (11.5-15.5) % Plt Count 317 (150-450) k/uL MPV 7.6 Neutrophils % 83 % Lymphocytes % 9 % Monocytes % 4 % Eosinophils % 2 % Basophils % 1 % Neutrophils # 11.0 H (1.3-7.7) k/uL Lymphocytes # 1.2 (1.0-4.8) k/uL Monocytes # 0.5 (0-1.0) k/uL Eosinophils # 0.3 (0-0.7) k/uL Basophils # 0.1 (0-0.2) k/uL Sodium 129 L (137-145) mmol/L Potassium 4.8 (3.5-5.1) mmol/L Chloride 89 L (98-107) mmol/L Carbon Dioxide 26 (22-30) mmol/L Anion Gap 14 mmol/L BUN 25 H (7-17) mg/dL Creatinine 0.99 (0.52-1.04) mg/dL Est GFR (CKD-EPI)AfAm 67 (>60 ml/min/1.73 sqM) Est GFR (CKD-EPI)NonAf 58 (>60 ml/min/1.73 sqM) Glucose 781 H* (74-99) mg/dL POC Glucose (mg/dL) >600 H (75-99) mg/dL POC Glu Insight Director ID Elsi Bynum Calcium 9.2 (8.4-10.2) mg/dL Magnesium 2.0 (1.6-2.3) mg/dL Total Bilirubin 1.2 (0.2-1.3) mg/dL AST 22 (14-36) U/L ALT 23 (4-34) U/L Alkaline Phosphatase 142 H (38-126) U/L Total Protein 6.6 (6.3-8.2) g/dL Albumin 3.7 (3.5-5.0) g/dL Urine Color Urine Appearance (Clear) Urine pH (5.0-8.0) Ur Specific [place] (1.001-1.035) Urine Protein (Negative) Urine Glucose (UA) (Negative) Urine Ketones (Negative) Urine Blood (Negative) Urine Nitrite (Negative) Urine Bilirubin (Negative) Urine Urobilinogen (<2.0) mg/dL Ur Leukocyte Esterase (Negative) Urine RBC (0-5) /hpf Urine WBC (0-5) /hpf Ur Squamous Epith Cells (0-4) /hpf Urine Bacteria (None) /hpf Urine Mucus (None) /hpf Acetone, Qual Negative (Negative) 09/23/20 Range/Units 17:14 WBC (3.8-10.6) k/uL RBC (3.80-5.40) m/uL Hgb (11.4-16.0) gm/dL Hct (34.0-46.0) % MCV (80.0-100.0) fL MCH (25.0-35.0) pg MCHC (31.0-37.0) g/dL RDW (11.5-15.5) % Plt Count (150-450) k/uL MPV Neutrophils % % Lymphocytes % % Monocytes % % Eosinophils % % Basophils % % Neutrophils # (1.3-7.7) k/uL Lymphocytes # (1.0-4.8) k/uL Monocytes # (0-1.0) k/uL Eosinophils # (0-0.7) k/uL Basophils # (0-0.2) k/uL Sodium (137-145) mmol/L Potassium (3.5-5.1) mmol/L Chloride (98-107) mmol/L Carbon Dioxide (22-30) mmol/L Anion Gap mmol/L BUN (7-17) mg/dL Creatinine (0.52-1.04) mg/dL Est GFR (CKD-EPI)AfAm (>60 ml/min/1.73 sqM) Est GFR (CKD-EPI)NonAf (>60 ml/min/1.73 sqM) Glucose (74-99) mg/dL POC Glucose (mg/dL) (75-99) mg/dL POC Glu Insight Director ID Calcium (8.4-10.2) mg/dL Magnesium (1.6-2.3) mg/dL Total Bilirubin (0.2-1.3) mg/dL AST (14-36) U/L ALT (4-34) U/L Alkaline Phosphatase (38-126) U/L Total Protein (6.3-8.2) g/dL Albumin (3.5-5.0) g/dL Urine Color Light Yellow Urine Appearance Cloudy H (Clear) Urine pH 5.0 (5.0-8.0) Ur Specific [place] 1.027 (1.001-1.035) Urine Protein 1+ H (Negative) Urine Glucose (UA) 4+ H (Negative) Urine Ketones Negative (Negative) Urine Blood Negative (Negative) Urine Nitrite Negative (Negative) Urine Bilirubin Negative (Negative) Urine Urobilinogen <2.0 (<2.0) mg/dL Ur Leukocyte Esterase Large H (Negative) Urine RBC 9 H (0-5) /hpf Urine WBC 45 H (0-5) /hpf Ur Squamous Epith Cells 4 (0-4) /hpf Urine Bacteria Rare H (None) /hpf Urine Mucus Rare H (None) /hpf Acetone, Qual (Negative) Disposition Clinical Impression: Hyperglycemia, UTI (urinary tract infection) Disposition: ADMITTED IP TO THIS HOSP Is patient prescribed a controlled substance at d/c from ED?: No Referrals: Elvira Gonzales MD [Primary Care Provider] - 1-2 days Time of Disposition: 18:09
[2020-09-23 17:40] LABS: Glucose 781 mg/dL (74-99)
[2020-09-23] MEDS ORDERED: cefTRIAXone IN SWFI 1,000 MG/10 ML SYRINGE IVP STA (18:05)
[2020-09-23] MEDS ORDERED: SODIUM CHLORIDE 0.9% 1,000 ML IV SCH (18:15)
[2020-09-23] MEDS: INSULIN REGULAR 100 UNIT in SODIUM CHLORIDE 0.9% 100 ML IV SCH (18:44)
[2020-09-23 18:50] LABS: Glucose,Whole Blood >600 mg/dL (75-99)
[2020-09-23 19:47] LABS: Glucose,Whole Blood >600 mg/dL (75-99)
[2020-09-23 20:26] LABS: Glucose,Whole Blood >600 mg/dL (75-99)
[2020-09-23 20:49] LABS: Glucose,Whole Blood 535 mg/dL (75-99)
[2020-09-23 21:30] LABS: Glucose,Whole Blood 481 mg/dL (75-99)
[2020-09-23 22:00] LABS: Glucose,Whole Blood 455 mg/dL (75-99)
[2020-09-23] MEDS: SODIUM CHLORIDE 0.9% 1,000 ML IV SCH (22:00)
[2020-09-23 22:31] LABS: Glucose,Whole Blood 399 mg/dL (75-99)
[2020-09-23 23:04] LABS: Glucose,Whole Blood 320 mg/dL (75-99)
[2020-09-23 23:28] LABS: Glucose,Whole Blood 339 mg/dL (75-99)
[2020-09-24 00:02] LABS: Glucose,Whole Blood 242 mg/dL (75-99)
[2020-09-24] MEDS: D5-0.45% NACL WITH KCL 20MEQ/L 1,000 ML IV SCH ×2 (00:22→08:40)
[2020-09-24] MEDS: INSULIN REGULAR 100 UNIT in SODIUM CHLORIDE 0.9% 100 ML IV SCH ×2 (00:23→18:54)
[2020-09-24 01:08] LABS: Glucose,Whole Blood 185 mg/dL (75-99)
[2020-09-24 02:02] LABS: Glucose,Whole Blood 200 mg/dL (75-99)
[2020-09-24 03:15] LABS: Glucose,Whole Blood 185 mg/dL (75-99)
[2020-09-24] MEDS: ACETAMINOPHEN TAB 325 MG TAB PO PRN ×4 (03:23→21:39)
[2020-09-24 04:03] LABS: Glucose,Whole Blood 146 mg/dL (75-99)
[2020-09-24] MEDS: SODIUM CHLORIDE 0.9% 1,000 ML IV SCH ×2 (04:09→08:40)
[2020-09-24 05:06] LABS: Glucose,Whole Blood 135 mg/dL (75-99)
[2020-09-24 06:01] LABS: Glucose,Whole Blood 127 mg/dL (75-99)
[2020-09-24 07:25] LABS: Glucose,Whole Blood 128 mg/dL (75-99)
[2020-09-24] MEDS ORDERED: hydrOXYzine HCL 25 MG TAB PO PRN (07:42)
[2020-09-24] MEDS ORDERED: ACETAMINOPHEN TAB 325 MG TAB PO PRN (07:42)
[2020-09-24] MEDS: SYMBICORT 160-4.5 MCG INHALER INHALATION SCH ×2 (07:55→19:09)
[2020-09-24] MEDS ORDERED: INSULIN ASPART (NovoLOG) 100 UNIT/ML VIAL SQ ONE (08:38)
[2020-09-24 08:39] LABS: Glucose,Whole Blood 323 mg/dL (75-99)
[2020-09-24] MEDS: ASPIRIN 81 MG PO SCH (08:46)
[2020-09-24] MEDS: METOPROLOL SUCCINATE (ER) 50 MG TAB.ER.24H PO SCH (08:46)
[2020-09-24] MEDS: lisinopriL 10 MG TAB PO SCH (08:46)
[2020-09-24] MEDS: ATORVASTATIN 80 MG TAB PO SCH (08:46)
--- NOTE | 2020-09-24 08:46 | P.HPIM ---
History of Present Illness Patient was a 70-year-old female came in with highly elevated blood sugars patient is found to have a blood sugars of around 800 and patient is admitted for hyperosmolar hyperglycemic state. Patient was not in DKA patient. Patient received IV insulin blood sugars have come down patient has mild anion gap 4, starvation ketosis. Patient denied any UTI symptoms although patient's urine is little bit abnormal because of which patient was started on antibiotic that is Rocephin which will discuss reviewed. Patient usually uses 25 minute units of long-acting insulin twice a day along with 15 units with each meal. Patient denied any cough no evidence of sepsis or dehydration at this time. Patient also was hyponatremic which is pseudohyponatremia. Review of Systems REVIEW OF SYSTEMS: CONSTITUTIONAL: No fever, no malaise, no fatigue. HEENT: No recent visual problems or hearing problems. Denied any sore throat. CARDIOVASCULAR: No chest pain, orthopnea, PND, no palpitations, no syncope. PULMONARY: No shortness of breath, no cough, no hemoptysis. GASTROINTESTINAL: No diarrhea, no nausea, no vomiting, no abdominal pain. NEUROLOGICAL: No headaches, no weakness, no numbness. HEMATOLOGICAL: Denies any bleeding or petechiae. GENITOURINARY: As mentioned in HPI MUSCULOSKELETAL/RHEUMATOLOGICAL: Denies any joint pain, swelling, or any muscle pain. ENDOCRINE: Denies any polyuria or polydipsia. The rest of the 14-point review of systems is negative. Past Medical History Past Medical History: Asthma, Coronary Artery Disease (CAD), Chest Pain / Angina, Heart Failure, COPD, Diabetes Mellitus, Hyperlipidemia, Hypertension, Myocardial Infarction (AR), Respiratory Disorder, Syncope Additional Past Medical History / Comment(s): NEBULIZER AT HOME, broncitis, emphysema, type 2 dm Last Myocardial Infarction Date:: 2010 History of Any Multi-Drug Resistant Organisms: None Reported Past Surgical History: Cholecystectomy, Coronary Bypass/CABG, Heart Catheterization With Stent Additional Past Surgical History / Comment(s): 1st stent in 2010, 3 more stents placed -about 2014, open heart surgery 2016. Past Anesthesia/Blood Transfusion Reactions: No Reported Reaction Additional Past Anesthesia/Blood Transfusion Reaction / Comment(s): Claustrophobic Date of Last Stent Placement:: 2014 Past Psychological History: No Psychological Hx Reported Smoking Status: Former smoker Past Alcohol Use History: None Reported Additional Past Alcohol Use History / Comment(s): STARTED SMOKING AT AGE 14- WORKED UP TO 3 [employer], QUIT 2010 Past Drug Use History: None Reported - Past Family History Father Family Medical History: Myocardial Infarction (AR) Additional Family Medical History / Comment(s): STENT, OPEN HEART SURGERY Mother Additional Family Medical History / Comment(s): DEPRESSION, mental illness Medications and Allergies Home Medications Medication Instructions Recorded Confirmed Type Aspirin 81 mg PO DAILY 12/17/14 09/23/20 History Budesonide-Formot 160-4.5 Mcg 2 puff INHALATION RT-BID 04/18/15 09/23/20 History [Symbicort 160-4.5 Mcg Inhaler] Metoprolol Succinate [Toprol XL] 50 mg PO DAILY 08/30/18 09/23/20 History Albuterol Sulfate [Ventolin HFA] 2 puff INHALATION RT-QID PRN 01/06/20 09/23/20 History Furosemide [Lasix] 20 mg PO BID PRN 05/19/20 09/23/20 History Acetaminophen [Tylenol] 325 mg PO DAILY PRN 09/23/20 09/23/20 History Atorvastatin [Lipitor] 80 mg PO DAILY 09/23/20 09/23/20 History Insulin Glargine,Hum.rec.anlog See Protocol SQ TID-W/MEALS PRN 09/23/20 09/23/20 History [Lantus Solostar] hydrOXYzine HCL [Atarax] 25 mg PO TID PRN 09/23/20 09/23/20 History Allergies Allergy/AdvReac Type Severity Reaction Status Date / Time codeine AdvReac Nausea & Verified 09/23/20 19:07 Vomiting Physical Exam Vitals: Vital Signs Temp Pulse Pulse Resp BP BP Pulse Ox 09/24/20 03:24 98.1 F 68 16 175/95 97 09/24/20 02:51 90 16 09/23/20 23:54 97.8 F 90 16 166/86 96 09/23/20 21:24 97.9 F 86 16 180/97 97 09/23/20 21:10 60 18 178/66 95 09/23/20 18:27 58 L 18 178/66 94 L 09/23/20 16:40 98 F 64 18 133/59 94 L Intake and Output 09/23/20 09/24/20 09/24/20 22:59 06:59 14:59 Intake Total 40.134 1798.483 2.282 Balance 40.134 1798.483 2.282 Intake: Intake, IV Titration 40.134 1198.483 2.282 Amount D5-0.45% NaCl with KCl 900 20Meq/l 1,000 ml @ 150 mls/hr IV .[id number] KAREN Rx# :[id number] Insulin Regular 100 unit 40.134 98.483 2.282 In Sodium Chloride 0.9% 100 ml @ 0.1 UNITS/KG/HR 9.85 mls/hr IV .[id number] KAREN Rx#:[id number] Sodium Chloride 0.9% 1, 200 000 ml @ 200 mls/hr IV . Q5H KAREN Rx#:[id number] Oral 0 600 Other: Voiding Method Toilet # Voids 1 2 Weight 97.522 kg 97.2 kg PHYSICAL EXAMINATION: GENERAL: The patient is alert and oriented x3, not in any acute distress. Well developed, well nourished. HEENT: Pupils are round and equally reacting to light. EOMI. No scleral icterus. No conjunctival pallor. Normocephalic, atraumatic. No pharyngeal erythema. No thyromegaly. CARDIOVASCULAR: S1 and S2 present. No murmurs, rubs, or gallops. PULMONARY: Chest is clear to auscultation, no wheezing or crackles. ABDOMEN: Soft, nontender, nondistended, normoactive bowel sounds. No palpable o rganomegaly. MUSCULOSKELETAL: No joint swelling or deformity. EXTREMITIES: No cyanosis, clubbing, or pedal edema. NEUROLOGICAL: Gross neurological examination did not reveal any focal deficits. SKIN: No rashes. Results CBC & Chem 7: 09/23/20 17:00 09/24/20 06:23 Labs: Abnormal Lab Results - Last 24 Hours (Table) 09/23/20 09/23/20 09/23/20 Range/Units 16:53 17:00 17:00 WBC 13.3 H (3.8-10.6) k/uL Neutrophils # 11.0 H (1.3-7.7) k/uL Sodium 129 L (137-145) mmol/L Chloride 89 L (98-107) mmol/L BUN 25 H (7-17) mg/dL Glucose 781 H* (74-99) mg/dL POC Glucose (mg/dL) >600 H (75-99) mg/dL Alkaline Phosphatase 142 H (38-126) U/L Urine Appearance (Clear) Urine Protein (Negative) Urine Glucose (UA) (Negative) Ur Leukocyte Esterase (Negative) Urine RBC (0-5) /hpf Urine WBC (0-5) /hpf Urine Bacteria (None) /hpf Urine Mucus (None) /hpf 09/23/20 09/23/20 09/23/20 Range/Units 17:14 18:43 19:45 WBC (3.8-10.6) k/uL Neutrophils # (1.3-7.7) k/uL Sodium (137-145) mmol/L Chloride (98-107) mmol/L BUN (7-17) mg/dL Glucose (74-99) mg/dL POC Glucose (mg/dL) >600 H >600 H (75-99) mg/dL Alkaline Phosphatase (38-126) U/L Urine Appearance Cloudy H (Clear) Urine Protein 1+ H (Negative) Urine Glucose (UA) 4+ H (Negative) Ur Leukocyte Esterase Large H (Negative) Urine RBC 9 H (0-5) /hpf Urine WBC 45 H (0-5) /hpf Urine Bacteria Rare H (None) /hpf Urine Mucus Rare H (None) /hpf 09/23/20 09/23/20 09/23/20 Range/Units 20:25 20:47 21:29 WBC (3.8-10.6) k/uL Neutrophils # (1.3-7.7) k/uL Sodium (137-145) mmol/L Chloride (98-107) mmol/L BUN (7-17) mg/dL Glucose (74-99) mg/dL POC Glucose (mg/dL) >600 H 535 H 481 H (75-99) mg/dL Alkaline Phosphatase (38-126) U/L Urine Appearance (Clear) Urine Protein (Negative) Urine Glucose (UA) (Negative) Ur Leukocyte Esterase (Negative) Urine RBC (0-5) /hpf Urine WBC (0-5) /hpf Urine Bacteria (None) /hpf Urine Mucus (None) /hpf 09/23/20 09/23/20 09/23/20 Range/Units 21:48 21:59 22:29 WBC (3.8-10.6) k/uL Neutrophils # (1.3-7.7) k/uL Sodium (137-145) mmol/L Chloride (98-107) mmol/L BUN (7-17) mg/dL Glucose 432 H (74-99) mg/dL POC Glucose (mg/dL) 455 H 399 H (75-99) mg/dL Alkaline Phosphatase (38-126) U/L Urine Appearance (Clear) Urine Protein (Negative) Urine Glucose (UA) (Negative) Ur Leukocyte Esterase (Negative) Urine RBC (0-5) /hpf Urine WBC (0-5) /hpf Urine Bacteria (None) /hpf Urine Mucus (None) /hpf 09/23/20 09/23/20 09/24/20 Range/Units 23:02 23:27 00:01 WBC (3.8-10.6) k/uL Neutrophils # (1.3-7.7) k/uL Sodium (137-145) mmol/L Chloride (98-107) mmol/L BUN (7-17) mg/dL Glucose (74-99) mg/dL POC Glucose (mg/dL) 320 H 339 H 242 H (75-99) mg/dL Alkaline Phosphatase (38-126) U/L Urine Appearance (Clear) Urine Protein (Negative) Urine Glucose (UA) (Negative) Ur Leukocyte Esterase (Negative) Urine RBC (0-5) /hpf Urine WBC (0-5) /hpf Urine Bacteria (None) /hpf Urine Mucus (None) /hpf 09/24/20 09/24/20 09/24/20 Range/Units 01:06 01:53 02:01 WBC (3.8-10.6) k/uL Neutrophils # (1.3-7.7) k/uL Sodium 136 L (137-145) mmol/L Chloride (98-107) mmol/L BUN 24 H (7-17) mg/dL Glucose 216 H (74-99) mg/dL POC Glucose (mg/dL) 185 H 200 H (75-99) mg/dL Alkaline Phosphatase (38-126) U/L Urine Appearance (Clear) Urine Protein (Negative) Urine Glucose (UA) (Negative) Ur Leukocyte Esterase (Negative) Urine RBC (0-5) /hpf Urine WBC (0-5) /hpf Urine Bacteria (None) /hpf Urine Mucus (None) /hpf 09/24/20 09/24/20 09/24/20 Range/Units 03:14 04:01 05:04 WBC (3.8-10.6) k/uL Neutrophils # (1.3-7.7) k/uL Sodium (137-145) mmol/L Chloride (98-107) mmol/L BUN (7-17) mg/dL Glucose (74-99) mg/dL POC Glucose (mg/dL) 185 H 146 H 135 H (75-99) mg/dL Alkaline Phosphatase (38-126) U/L Urine Appearance (Clear) Urine Protein (Negative) Urine Glucose (UA) (Negative) Ur Leukocyte Esterase (Negative) Urine RBC (0-5) /hpf Urine WBC (0-5) /hpf Urine Bacteria (None) /hpf Urine Mucus (None) /hpf 09/24/20 09/24/20 09/24/20 Range/Units 06:00 06:23 07:04 WBC (3.8-10.6) k/uL Neutrophils # (1.3-7.7) k/uL Sodium 136 L (137-145) mmol/L Chloride (98-107) mmol/L BUN 24 H (7-17) mg/dL Glucose 142 H (74-99) mg/dL POC Glucose (mg/dL) 127 H 128 H (75-99) mg/dL Alkaline Phosphatase (38-126) U/L Urine Appearance (Clear) Urine Protein (Negative) Urine Glucose (UA) (Negative) Ur Leukocyte Esterase (Negative) Urine RBC (0-5) /hpf Urine WBC (0-5) /hpf Urine Bacteria (None) /hpf Urine Mucus (None) /hpf 09/24/20 Range/Units 08:34 WBC (3.8-10.6) k/uL Neutrophils # (1.3-7.7) k/uL Sodium (137-145) mmol/L Chloride (98-107) mmol/L BUN (7-17) mg/dL Glucose (74-99) mg/dL POC Glucose (mg/dL) 323 H (75-99) mg/dL Alkaline Phosphatase (38-126) U/L Urine Appearance (Clear) Urine Protein (Negative) Urine Glucose (UA) (Negative) Ur Leukocyte Esterase (Negative) Urine RBC (0-5) /hpf Urine WBC (0-5) /hpf Urine Bacteria (None) /hpf Urine Mucus (None) /hpf Microbiology - Last 24 Hours (Table) 09/23/20 17:14 Urine Culture - Preliminary Urine,Voided Thrombosis Risk Factor Assmnt - Choose All That Apply Each Risk Factor Represents 2 Points: Age 61-74 years Thrombosis Risk Factor Assessment Total Risk Factor Score: 2 Thrombosis Risk Factor Assessment Level: Low Risk Assessment and Plan Plan: -Hyperosmolar hyperglycemic state: Improved with the IV insulin patient will be transitioned to subcutaneous insulin as mentioned above patient was started on home regimen of insulin and will titrate the insulin depending on her blood sugars. Unsure of the exact etiology of her hyperglycemia. Asymptomatic bacteriuria will not require any antibiotics and medics will discuss reviewed neck sign have leukocytosis reactive in nature -Hypertension patient is not on any medications at this time patient was started on lisinopril -Hyponatremia: Pseudohyponatremia secondary to hyperglycemia, improved now. -Congestive heart failure chronic diastolic dysfunction without any acute exacerbation patient is in fact hypovolemic patient the will be continued on IV fluids at 50 mL per hour and hold off Lasix at this time. -Asthma without any acute exacerbation at sign of coronary disease with previous history of CABG in the past -Hyperlipidemia -DVT prophylaxis with subcutaneous heparin
[2020-09-24] MEDS: ENOXAPARIN 40 MG/0.4 ML SYRINGE SQ SCH (08:53)
[2020-09-24] MEDS ORDERED: INSULIN DETEMIR (LEVEMIR) 100 UNIT/ML SYR SQ SCH (09:00)
[2020-09-24] MEDS ORDERED: cefTRIAXone IN SWFI 1,000 MG/10 ML SYRINGE IVP SCH (09:00)
[2020-09-24 11:12] VITALS: BMI 37.9
[2020-09-24 11:58] LABS: Hemoglobin A1C 15.1 % (4.0-6.0)
[2020-09-24 12:03] LABS: Glucose,Whole Blood 275 mg/dL (75-99)
[2020-09-24] MEDS: INSULIN ASPART (NovoLOG) 100 UNIT/ML VIAL SQ SCH ×4 (12:08→18:24)
[2020-09-24 17:51] LABS: Glucose,Whole Blood 475 mg/dL (75-99)
[2020-09-24] MEDS ORDERED: INSULIN REGULAR 100 UNIT in SODIUM CHLORIDE 0.9% 100 ML IV SCH (18:15)
[2020-09-24 18:55] LABS: Glucose,Whole Blood 519 mg/dL (75-99); Glucose,Whole Blood 528 mg/dL (75-99)
[2020-09-24 20:18] LABS: Glucose,Whole Blood 495 mg/dL (75-99)
[2020-09-24 20:18] LABS: Glucose,Whole Blood 592 mg/dL (75-99)
[2020-09-24 22:16] LABS: Glucose,Whole Blood 422 mg/dL (75-99)
[2020-09-25 00:05] LABS: Glucose,Whole Blood 241 mg/dL (75-99)
[2020-09-25] MEDS: INSULIN REGULAR 100 UNIT in SODIUM CHLORIDE 0.9% 100 ML IV SCH (00:12)
[2020-09-25] MEDS: SODIUM CHLORIDE 0.9% 1,000 ML IV SCH (00:14)
[2020-09-25 02:13] LABS: Glucose,Whole Blood 125 mg/dL (75-99)
[2020-09-25 03:25] LABS: Glucose,Whole Blood 103 mg/dL (75-99)
[2020-09-25 04:43] LABS: Glucose,Whole Blood 167 mg/dL (75-99)
[2020-09-25 06:29] LABS: Glucose,Whole Blood 157 mg/dL (75-99)
[2020-09-25] MEDS: SYMBICORT 160-4.5 MCG INHALER INHALATION SCH ×2 (07:45→19:56)
[2020-09-25 08:24] LABS: Glucose,Whole Blood 157 mg/dL (75-99)
[2020-09-25] MEDS: METOPROLOL SUCCINATE (ER) 50 MG TAB.ER.24H PO SCH (08:32)
[2020-09-25] MEDS: ATORVASTATIN 80 MG TAB PO SCH (08:33)
[2020-09-25] MEDS: lisinopriL 10 MG TAB PO SCH (08:33)
[2020-09-25] MEDS: ENOXAPARIN 40 MG/0.4 ML SYRINGE SQ SCH (08:33)
[2020-09-25] MEDS: ASPIRIN 81 MG PO SCH (08:33)
[2020-09-25] MEDS: ACETAMINOPHEN TAB 325 MG TAB PO PRN ×2 (08:37→19:21)
[2020-09-25 09:35] LABS: African American GFR (CKD) 66.1 (60.0-200.0); Anion Gap 7.7 mmol/L (4.00-12.00); Calcium 8.7 mg/dL (8.7-10.3); Carbon Dioxide 24.3 mmol/L (21.6-31.8); Potassium 4.4 mmol/L (3.5-5.5)
[2020-09-25 10:24] LABS: Glucose,Whole Blood 245 mg/dL (75-99)
[2020-09-25 12:46] LABS: Glucose,Whole Blood 233 mg/dL (75-99)
[2020-09-25 14:30] LABS: Glucose,Whole Blood 264 mg/dL (75-99)
[2020-09-25] MEDS ORDERED: INSULIN DETEMIR (LEVEMIR) 100 UNIT/ML SYR SQ ONE (14:30)
[2020-09-25 17:31] LABS: Glucose,Whole Blood 339 mg/dL (75-99)
[2020-09-25] MEDS: INSULIN ASPART (NovoLOG) 100 UNIT/ML VIAL SQ SCH ×3 (18:07→22:54)
--- NOTE | 2020-09-25 18:37 | PN ---
PROGRESS NOTE DATE OF SERVICE: 09/25/2020 This 70-year-old woman was admitted with uncontrolled diabetes mellitus, hyperosmolar state with sugars more than 784. Patient received IV insulin drip. Currently the patient is being transitioned to Lantus, NovoLog scale. No chest pain. No palpitations. No fever. PHYSICAL EXAMINATION: Alert and oriented x3. Pulse 60, blood pressure 170/75, respiration 14, temperature 97.2, pulse ox 97% on room air. HEENT: Conjunctivae normal. Oral mucosa moist. NECK: No jugular venous distention. No lymph node enlargement. CARDIOVASCULAR: S1, S2, muffled. No S3, no S4, RESPIRATORY: Diminished breath sounds at the bases. Bilateral scattered rhonchi and crackles. ABDOMEN: Soft, nontender. LEGS: No edema, no swelling. NERVOUS SYSTEM: No focal motor or sensory deficits. LABS: Sodium 136, potassium 4. ASSESSMENT: 1. Diabetes mellitus type 2, uncontrolled with hyperosmolar state with no evidence of diabetes ketoacidosis. 2. Hypertension. 3. Hyponatremia. 4. Congestive heart failure with chronic diastolic dysfunction. 5. History of asthma. 6. Hyperlipidemia. 7. Increased WBC. RECOMMENDATIONS AND DISCUSSION: In this 70-year-old woman who presented with multiple complex medical issues, we will monitor the patient closely, continue the current management and symptomatic treatment. Otherwise, monitor blood sugars closely. Continue the Lantus, NovoLog scale at this time. Prognosis guarded. Further recommendations to follow. MMODL / IJN: [id number] /
[2020-09-25] MEDS: ALBUTEROL NEBULIZED 2.5 MG/3 ML INHALATION PRN (19:56)
[2020-09-25] MEDS ORDERED: INSULIN DETEMIR (LEVEMIR) 100 UNIT/ML SYR SQ SCH (21:00)
[2020-09-25 22:42] LABS: Glucose,Whole Blood 280 mg/dL (75-99)
[2020-09-26] MEDS: ACETAMINOPHEN TAB 325 MG TAB PO PRN ×2 (00:35→05:59)
[2020-09-26] MEDS: SODIUM CHLORIDE 0.9% 1,000 ML IV SCH (00:54)
[2020-09-26 05:26] LABS: Basophils # (A) 0.1 k/uL (0-0.2); Basophils % (A) 1 %; Eosinophils # (A) 0.5 k/uL (0-0.7); Eosinophils % (A) 7 %; HCT 38.3 % (34.0-46.0); HGB 12.3 gm/dL (11.4-16.0); Lymphocytes % (A) 25 %; MCH 29.8 pg (25.0-35.0); MCHC 32.1 g/dL (31.0-37.0); MCV 92.7 fL (80.0-100.0); Mean Platelet Volume 7.5; Monocytes # (A) 0.3 k/uL (0-1.0); Monocytes % (A) 4 %; Neutrophils # (A) 4.9 k/uL (1.3-7.7); Neutrophils % (A) 62 %; Platelet Count 230 k/uL (150-450); RBC 4.13 m/uL (3.80-5.40); RDW 12.5 % (11.5-15.5)
[2020-09-26 06:57] LABS: Glucose,Whole Blood 264 mg/dL (75-99)
[2020-09-26] MEDS: ALBUTEROL NEBULIZED 2.5 MG/3 ML INHALATION PRN (07:38)
[2020-09-26] MEDS: SYMBICORT 160-4.5 MCG INHALER INHALATION SCH (07:38)
[2020-09-26] MEDS: INSULIN ASPART (NovoLOG) 100 UNIT/ML VIAL SQ SCH ×4 (07:43→12:29)
[2020-09-26] MEDS: ATORVASTATIN 80 MG TAB PO SCH (07:44)
[2020-09-26] MEDS: METOPROLOL SUCCINATE (ER) 50 MG TAB.ER.24H PO SCH (07:44)
[2020-09-26] MEDS: ASPIRIN 81 MG PO SCH (07:44)
[2020-09-26] MEDS: ENOXAPARIN 40 MG/0.4 ML SYRINGE SQ SCH (07:44)
[2020-09-26] MEDS: lisinopriL 10 MG TAB PO SCH (07:44)
[2020-09-26 10:59] LABS: African American GFR (CKD) 75.1 (60.0-200.0); Anion Gap 6.6 mmol/L (4.00-12.00); BUN/Creat Ratio 23.33 Ratio (12.00-20.00); Calcium 8.9 mg/dL (8.7-10.3); Carbon Dioxide 23.4 mmol/L (21.6-31.8); Non-African American GFR(CKD) 64.8 (60.0-200.0); Potassium 4.8 mmol/L (3.5-5.5)
[2020-09-26 11:40] LABS: Glucose,Whole Blood 229 mg/dL (75-99)
[2020-09-26 12:11] VITALS: BP 158/78; PULSE 58; RESP 17; TEMP 97.9
--- NOTE | 2020-09-26 13:16 | P.DS ---
Providers Date of admission: 09/23/20 18:06 Attending physician: Raúl Tan Primary care physician: Elvira Gonzales [facility] Course: 70-year-old female came in with highly elevated blood sugars patient is found to have a blood sugars of around 800 and patient is admitted for hyperosmolar hyperglycemic state. Patient was not in DKA patient. Patient received IV insulin blood sugars have come down patient has mild anion gap 4, starvation ketosis. Patient denied any UTI symptoms although patient's urine is little bit abnormal because of which patient was started on antibiotic that is Rocephin which will discuss reviewed. Patient usually uses 25 units of long-acting insulin twice a day along with 15 units with each meal. Patient denied any cough no evidence of sepsis or dehydration at this time. Patient also was hyponatremic which is pseudohyponatremia. 09/26/2020 Patient's blood sugars are much better today patient didn't get her morning Lantus today patient will be given morning be discharged on 14 units twice a day of Lantus along with 15 units with each meal and patient will follow closely with primary care patient Dr. Gonzales as an outpatient. PHYSICAL EXAMINATION: GENERAL: The patient is alert and oriented x3, not in any acute distress. Well developed, well nourished. HEENT: Pupils are round and equally reacting to light. EOMI. No scleral icterus. No conjunctival pallor. Normocephalic, atraumatic. No pharyngeal erythema. No thyromegaly. CARDIOVASCULAR: S1 and S2 present. No murmurs, rubs, or gallops. PULMONARY: Chest is clear to auscultation, no wheezing or crackles. ABDOMEN: Soft, nontender, nondistended, normoactive bowel sounds. No palpable organomegaly. MUSCULOSKELETAL: No joint swelling or deformity. EXTREMITIES: No cyanosis, clubbing, or pedal edema. NEUROLOGICAL: Gross neurological examination did not reveal any focal deficits. SKIN: No rashes. Assessment and Plan Plan: -Hyperosmolar hyperglycemic state: Resolved and the patient's insulin regimen was increased and as mentioned above. Asymptomatic bacteriuria will not require any antibiotics . Leukocytosis resolved -Hypertension patient was started on lisinopril -Hyponatremia: Pseudohyponatremia secondary to hyperglycemia, improved now. -Congestive heart failure chronic diastolic dysfunction without any acute exacerbation -Asthma without any acute exacerbation at sign of coronary disease with previous history of CABG in the past -Hyperlipidemia Plan - Discharge Summary Discharge Rx Participant: No New Discharge Prescriptions: New Insulin Glargine,Hum.rec.anlog [Lantus Solostar] 42 unit SQ BID #2 pen INSULIN ASPART (NovoLOG) [NovoLOG (formulary)] 15 unit SQ AC-TID #5 vial lisinopriL [Zestril] 10 mg PO DAILY #30 tab Continue Aspirin 81 mg PO DAILY Budesonide-Formot 160-4.5 Mcg [Symbicort 160-4.5 Mcg Inhaler] 2 puff INHALATION RT-BID Metoprolol Succinate [Toprol XL] 50 mg PO DAILY Albuterol Sulfate [Ventolin HFA] 2 puff INHALATION RT-QID PRN PRN Reason: Shortness Of Breath Furosemide [Lasix] 20 mg PO BID PRN PRN Reason: Edema hydrOXYzine HCL [Atarax] 25 mg PO TID PRN PRN Reason: Itching Atorvastatin [Lipitor] 80 mg PO DAILY Acetaminophen [Tylenol] 325 mg PO DAILY PRN PRN Reason: Fever And/ Or Pain Discontinued Insulin Glargine,Hum.rec.anlog [Lantus Solostar] See Protocol SQ TID-W/MEALS PRN PRN Reason: HIGH BLOOD SUGAR Discharge Medication List Aspirin 81 mg PO DAILY 12/17/14 [History] Budesonide-Formot 160-4.5 Mcg [Symbicort 160-4.5 Mcg Inhaler] 2 puff INHALATION RT-BID 04/18/15 [History] Metoprolol Succinate [Toprol XL] 50 mg PO DAILY 08/30/18 [History] Albuterol Sulfate [Ventolin HFA] 2 puff INHALATION RT-QID PRN 01/06/20 [History] Furosemide [Lasix] 20 mg PO BID PRN 05/19/20 [History] Acetaminophen [Tylenol] 325 mg PO DAILY PRN 09/23/20 [History] Atorvastatin [Lipitor] 80 mg PO DAILY 09/23/20 [History] hydrOXYzine HCL [Atarax] 25 mg PO TID PRN 09/23/20 [History] INSULIN ASPART (NovoLOG) [NovoLOG (formulary)] 15 unit SQ AC-TID #5 vial 09/26/20 [Rx] Insulin Glargine,Hum.rec.anlog [Lantus Solostar] 42 unit SQ BID #2 pen 09/26/20 [Rx] lisinopriL [Zestril] 10 mg PO DAILY #30 tab 09/26/20 [Rx] Follow up Appointment(s)/Referral(s): [facility], [NON-STAFF] - Elvira Gonzales MD [Primary Care Provider] - 3 Days
[2020-09-26] MEDS ORDERED: INSULIN DETEMIR (LEVEMIR) 100 UNIT/ML SYR SQ ONE (13:30)
== END 2020-09-26 14:06 | disposition home or self-care (01) ==
LOC: EC 16:34 → INTOOBSV 18:06 → 3SCARD 18:06 → 5NMEDONC 09-24 12:48 → UNDODISIN 09-26 14:06
PROVIDERS: ADMIT Internal Medicine; ATTEND Internal Medicine
DX: E11.00 Type 2 diabetes mellitus with hyperosmolarity without nonketotic hyperglycemic-hyperosmolar coma (NKHHC) (principal); E11.65 Type 2 diabetes mellitus with hyperglycemia; R82.71 Bacteriuria; I11.0 Hypertensive heart disease with heart failure; I50.32 Chronic diastolic (congestive) heart failure; J45.909 Unspecified asthma, uncomplicated; I25.10 Atherosclerotic heart disease of native coronary artery without angina pectoris; E78.5 Hyperlipidemia, unspecified; I25.2 Old myocardial infarction; J43.9 Emphysema, unspecified; F40.240 Claustrophobia; E87.1 Hypo-osmolality and hyponatremia; Z20.822 Contact with and (suspected) exposure to COVID-19; Z79.82 Long term (current) use of aspirin; Z79.51 Long term (current) use of inhaled steroids; Z79.899 Other long term (current) drug therapy; Z79.4 Long term (current) use of insulin; Z88.5 Allergy status to narcotic agent; Z87.09 Personal history of other diseases of the respiratory system; Z90.49 Acquired absence of other specified parts of digestive tract; Z95.1 Presence of aortocoronary bypass graft; Z95.5 Presence of coronary angioplasty implant and graft; Z87.891 Personal history of nicotine dependence; Z82.49 Family history of ischemic heart disease and other diseases of the circulatory system; Z81.8 Family history of other mental and behavioral disorders
CPT/HCPCS: 96372 ×3; 96361; 96374; 99285; 36415; 94640 ×5; 80051; 80053; 80048 ×2; 82565; 82009; 83735; 82947 ×2; 84520; 85025 ×2; 81001; 87086; 83036; 87635; G0378 ×5; J1650 ×3; J0696

== ENCOUNTER 2020-11-06 13:24 | Emergency (ER) | payer MEDICARE ==
[2020-11-06 13:31] VITALS: TEMP 98.1
[2020-11-06] MEDS ORDERED: HYDROcodone/APAP 5-325MG 1 EACH TAB PO STA (14:13)
[2020-11-06] MEDS ORDERED: KETOROLAC 15 MG/ML 1 ML VIAL IM STA (14:13)
[2020-11-06] MEDS ORDERED: CYCLOBENZAPRINE 10 MG TAB PO STA (14:13)
--- NOTE | 2020-11-06 15:20 | XR ---
EXAMINATION TYPE: XR Hip RT and AP Pelvis DATE OF EXAM: 11/06/2020 COMPARISON: NONE HISTORY: Pain. Fall. TECHNIQUE: 3 views FINDINGS: Pelvic ring is intact. Proximal right femur and hip joint are intact. There is no hip dyspl gilma. There is vascular calcification. Sacroiliac joints are intact. IMPRESSION: Negative pelvis and right hip exam.
--- NOTE | 2020-11-06 15:21 | XR ---
EXAMINATION TYPE: XR shoulder complete LT DATE OF EXAM: 11/06/2020 COMPARISON: NONE HISTORY: Pain TECHNIQUE: 3 views FINDINGS: I see no fracture nor dislocation. Joint spaces are normal. There are no pathologic calcifi cations. IMPRESSION: Negative left shoulder exam. No fracture.
--- NOTE | 2020-11-06 15:59 | ED ---
General Adult HPI - General Chief complaint: Fall Stated complaint: Fall/knee injury Time Seen by Provider: 11/06/20 13:36 Source: patient Mode of arrival: wheelchair Limitations: no limitations - History of Present Illness Initial comments: 70-year-old female patient presents to the emergency department today for evaluation of right low back pain with radiation down the right leg. Patient states symptoms started a couple of days ago. Yesterday she saw the chiropractor who did an adjustment. States when she got home she was still having increased pain which made it difficult to walk. States that she did fall 3 times yesterday. States 2 of them are like slipping out of her chair onto the floor with minimal injury. States the last fall was in the kitchen onto a hard surface or she injured the left shoulder and the right knee. Patient is able to ambulate without difficulty on the knee. States it is sore and there is a small abrasion. Denies hitting her head with any of the falls. Denies taking anticoagulants or antiplatelet medications. Denies any headache, blurred vision, double vision. Denies numbness or tingling to her extremities. Denies any saddle anesthesia or loss of bowel or bladder control. Patient states she has had pain similar to this in the past. Patient denies any recent rash, fever, chills, cough, shortness of breath, chest pain, abdominal pain, nausea, vomiting, diarrhea, constipation, hematuria, dysuria, urinary urgency, urinary frequency, or any other complaints. - Related Data Home Medications Medication Instructions Recorded Confirmed Aspirin 81 mg PO DAILY 12/17/14 09/23/20 Budesonide-Formot 160-4.5 Mcg 2 puff INHALATION RT-BID 04/18/15 09/23/20 [Symbicort 160-4.5 Mcg Inhaler] Metoprolol Succinate [Toprol XL] 50 mg PO DAILY 08/30/18 09/23/20 Albuterol Sulfate [Ventolin HFA] 2 puff INHALATION RT-QID PRN 01/06/20 09/23/20 Furosemide [Lasix] 20 mg PO BID PRN 05/19/20 09/23/20 Acetaminophen [Tylenol] 325 mg PO DAILY PRN 09/23/20 09/23/20 Atorvastatin [Lipitor] 80 mg PO DAILY 09/23/20 09/23/20 hydrOXYzine HCL [Atarax] 25 mg PO TID PRN 09/23/20 09/23/20 Previous Rx's Medication Instructions Recorded INSULIN ASPART (NovoLOG) [NovoLOG 15 unit SQ AC-TID #5 vial 09/26/20 (formulary)] Insulin Glargine,Hum.rec.anlog 42 unit SQ BID #2 pen 09/26/20 [Lantus Solostar] lisinopriL [Zestril] 10 mg PO DAILY #30 tab 09/26/20 Cyclobenzaprine [Flexeril] 10 mg PO TID #15 tab 11/06/20 HYDROcodone/APAP 5-325MG [Black 1 tab PO Q6HR PRN 3 Days #12 tab 11/06/20 5-325] Allergies Allergy/AdvReac Type Severity Reaction Status Date / Time codeine AdvReac Nausea & Verified 11/06/20 13:26 Vomiting Review of Systems ROS Statement: Those systems with pertinent positive or pertinent negative responses have been documented in the HPI. ROS Other: All systems not noted in ROS Statement are negative. Past Medical History Past Medical History: Asthma, Coronary Artery Disease (CAD), Chest Pain / Angina, Heart Failure, COPD, Diabetes Mellitus, Hyperlipidemia, Hypertension, Myocardial Infarction ([place]), Respiratory Disorder, Syncope Additional Past Medical History / Comment(s): NEBULIZER AT HOME, broncitis, emphysema, type 2 dm Last Myocardial Infarction Date:: 2010 History of Any Multi-Drug Resistant Organisms: None Reported Past Surgical History: Cholecystectomy, Coronary Bypass/CABG, Heart Catheterization With Stent Additional Past Surgical History / Comment(s): 1st stent in 2010, 3 more stents placed -about 2014, open heart surgery 2016. Past Anesthesia/Blood Transfusion Reactions: No Reported Reaction Additional Past Anesthesia/Blood Transfusion Reaction / Comment(s): Claustrophobic Date of Last Stent Placement:: 2014 Past Psychological History: No Psychological Hx Reported Smoking Status: Former smoker Past Alcohol Use History: None Reported Past Drug Use History: None Reported - Past Family History Father Family Medical History: Myocardial Infarction ([place]) Additional Family Medical History / Comment(s): STENT, OPEN HEART SURGERY Mother Additional Family Medical History / Comment(s): DEPRESSION, mental illness General Exam Limitations: no limitations General appearance: alert, in no apparent distress, other (This is a well- developed, well-nourished adult female patient in no acute distress. Vital signs upon presentation are temperature 98.1F, pulse 65, respirations 18, blood pressure 165/63, pulse ox 97% on room air.) Head exam: Present: atraumatic, normocephalic, normal inspection Eye exam: Present: normal appearance, PERRL, EOMI. Absent: scleral icterus, conjunctival injection, nystagmus, periorbital swelling ENT exam: Present: normal exam, normal oropharynx, mucous membranes moist Neck exam: Present: normal inspection, full ROM, other (Nontender, no step-off, no deformity to firm midline palpation of the posterior cervical spine. Full range of motion without pain or limitation.). Absent: tenderness, meningismus, lymphadenopathy Respiratory exam: Present: normal lung sounds bilaterally. Absent: respiratory distress, wheezes, rales, rhonchi, stridor Cardiovascular Exam: Present: regular rate, normal rhythm, normal heart sounds. Absent: systolic murmur, diastolic murmur, rubs, gallop, clicks GI/Abdominal exam: Present: soft, normal bowel sounds. Absent: distended, tenderness, guarding, rebound, rigid Back exam: Present: normal inspection, paraspinal tenderness (Right paralumbar tenderness). Absent: vertebral tenderness Neurological exam: Present: alert, oriented X3, CN II-XII intact, normal gait, other (Strength the lower extremities is 5/5.) Psychiatric exam: Present: normal affect, normal mood Skin exam: Present: warm, dry, intact, normal color. Absent: rash Course Vital Signs 11/06/20 13:27 Temperature 98.1 F Pulse Rate 65 Respiratory 18 Rate Blood Pressure 165/63 O2 Sat by Pulse 97 Oximetry Medical Decision Making - Medical Decision Making 70-year-old female patient presents to the emergency department today for evaluation of right low back pain with radiation down the right leg. Did have 3 falls yesterday related to the pain. Physical examination did reveal right paralumbar tenderness. Good neurovascular status of the lower extremities. Good strength to lower extremity is. She has no concerning symptoms for cauda equina. X-ray of the left shoulder was negative. X-ray of the right hip and pelvis was negative. She was given pain medication here in the emergency department. Upon reevaluation she is resting comfortably in bed. States she is feeling better. She did ambulate in the department without difficulty. She will be discharged home to follow-up with her primary care physician for recheck in 1-2 days. He is given prescription for pain medication muscle relaxer. Return parameters were discussed in detail. She verbalizes understanding and agrees with this plan. Case discussed with my attending Dr. Ocasio. Disposition Clinical Impression: Back pain, Sciatica Disposition: HOME SELF-CARE Condition: Good Instructions (If sedation given, give patient instructions): Sciatica (ED), Back Pain (ED), Fall Prevention (ED) Additional Instructions: Follow up with your primary care physician for recheck in 1-2 days. Use your walker to ambulate. Take medications as directed. Return to the emergency department for any new, worsening, or concerning symptoms Prescriptions: Cyclobenzaprine [Flexeril] 10 mg PO TID #15 tab HYDROcodone/APAP 5-325MG [Black 5-325] 1 tab PO Q6HR PRN 3 Days #12 tab PRN Reason: Pain Is patient prescribed a controlled substance at d/c from ED?: Yes When asked, does pt state using other controlled substances?: No If prescribed controlled substance>3 days was MAPS reviewed?: Prescribed <3 Days If opioid is for acute pain is fill amount 7 days or less?: Yes If Rx opioid, was Start Talking consent form obtained?: Yes Referrals: Elvira Gonzales MD [Primary Care Provider] - 1-2 days Time of Disposition: 15:59
[2020-11-06 16:17] VITALS: BP 148/88; PULSE 68; RESP 16
== END 2020-11-06 16:16 | disposition home or self-care (01) ==
LOC: EC 13:24
DX: M54.5 Low back pain (principal); M54.30 Sciatica, unspecified side; E11.9 Type 2 diabetes mellitus without complications; E78.5 Hyperlipidemia, unspecified; I11.0 Hypertensive heart disease with heart failure; I25.10 Atherosclerotic heart disease of native coronary artery without angina pectoris; I25.2 Old myocardial infarction; I50.9 Heart failure, unspecified; J44.9 Chronic obstructive pulmonary disease, unspecified; Z79.4 Long term (current) use of insulin; Z79.51 Long term (current) use of inhaled steroids; Z79.82 Long term (current) use of aspirin; Y92.000 Kitchen of unspecified non-institutional (private) residence as the place of occurrence of the external cause; W07.XXXA Fall from chair, initial encounter
CPT/HCPCS: 99283; 96372; 73030; 73502; J1885

== ENCOUNTER 2020-11-11 19:06 | Emergency (ER) | payer MEDICARE ==
[2020-11-11 19:24] VITALS: PULSE 69; RESP 18; TEMP 97.9
[2020-11-11] MEDS ORDERED: HYDROcodone/APAP 5-325MG 1 EACH TAB PO STA (21:10)
--- NOTE | 2020-11-11 21:44 | CT ---
EXAMINATION TYPE: CT hip RT wo con DATE OF EXAM: 11/11/2020 COMPARISON: None HISTORY: Right hip pain, no injury. CT DLP: 889.9 mGycm Automated exposure control for dose reduction was used. Images obtained from the upper right ileum to the subtrochanteric femur without contrast. FINDINGS: The right sacroiliac joint is intact. Acetabulum is intact. The proximal right femur and hip joint ap pear intact. There is no sign of hip dysplasia. There is no evidence of a soft tissue mass. There is no sign of hip joint effusion. There is some atherosclerotic vascular calcification. IMPRESSION: Negative CT scan of the right hip joint.
--- NOTE | 2020-11-11 21:47 | ED ---
Lower Extremity Injury HPI - General Source: patient Mode of arrival: wheelchair Limitations: no limitations <Bakari Perez - Last Filed: 11/11/20 23:36> <Kelly Tinoco - Last Filed: 11/12/20 13:51> - General Chief Complaint: Extremity Injury, Lower Stated Complaint: revisit - rt leg pain Time Seen by Provider: 11/11/20 20:49 - History of Present Illness Initial Comments: 70-year-old female presents to emergency Department with a chief complaint of right leg pain. Patient reports she was also evaluated here last week ago and was given analgesia in the discharge. Patient reports now she is continuing to have the pain in her right hip that seems to be radiating distally to the knee along the iliotibial band. Patient reports it feels like a burning sensation exacerbated with ambulation. She denies any numbness or tingling in the leg. Patient reports falling 2-3 times due to the pain. The denies any head injury. Denies any loss of consciousness. She denies any back pain, saddle anesthesia, urinary retention with overflow incontinence or bowel incontinence. (Bakari Perez) - Related Data Home Medications Medication Instructions Recorded Confirmed Aspirin 81 mg PO DAILY 12/17/14 11/11/20 Budesonide-Formot 160-4.5 Mcg 2 puff INHALATION RT-BID 04/18/15 11/11/20 [Symbicort 160-4.5 Mcg Inhaler] Metoprolol Succinate [Toprol XL] 50 mg PO DAILY 08/30/18 11/11/20 Albuterol Sulfate [Ventolin HFA] 2 puff INHALATION RT-QID PRN 01/06/20 11/11/20 Furosemide [Lasix] 20 mg PO BID PRN 05/19/20 11/11/20 Acetaminophen [Tylenol] 325 mg PO Q6H PRN 09/23/20 11/11/20 Atorvastatin [Lipitor] 80 mg PO DAILY 09/23/20 11/11/20 hydrOXYzine HCL [Atarax] 25 mg PO TID PRN 09/23/20 11/11/20 Betamethasone Dipropionate 1 applic TOPICAL DAILY PRN 11/11/20 11/11/20 [Diprolene AF 0.05% Cream] Clopidogrel Bisulfate [Plavix] 75 mg PO DAILY 11/11/20 11/11/20 Insulin Glargine,Hum.rec.anlog 44 unit SQ BID 11/11/20 11/11/20 [Lantus Solostar] Insulin Lispro [humaLOG Kwikpen] 15 unit SQ AC-TID 11/11/20 11/11/20 Triamcinolone 0.1% Cream [Kenalog 1 applic TOPICAL TID PRN 11/11/20 11/11/20 0.1% Cream] Previous Rx's Medication Instructions Recorded lisinopriL [Zestril] 10 mg PO DAILY #30 tab 09/26/20 Cyclobenzaprine [Flexeril] 10 mg PO TID #15 tab 11/06/20 HYDROcodone/APAP 5-325MG [[place] 1 tab PO Q6HR PRN 3 Days #12 tab 11/06/20 5-325] HYDROcodone/APAP 5-325MG [[place] 1 tab PO Q6HR PRN 3 Days #12 tab 11/11/20 5-325] Allergies Allergy/AdvReac Type Severity Reaction Status Date / Time codeine AdvReac Nausea & Verified 11/11/20 22:15 Vomiting Review of Systems ROS Other: All systems not noted in ROS Statement are negative. <Bakari Perez - Last Filed: 11/11/20 23:36> ROS Other: All systems not noted in ROS Statement are negative. <Kelly Tinoco - Last Filed: 11/12/20 13:51> ROS Statement: Those systems with pertinent positive or pertinent negative responses have been documented in the HPI. Past Medical History Past Medical History: Asthma, Coronary Artery Disease (CAD), Chest Pain / Angina, Heart Failure, COPD, Diabetes Mellitus, Hyperlipidemia, Hypertension, Myocardial Infarction ([place]), Respiratory Disorder, Syncope Additional Past Medical History / Comment(s): NEBULIZER AT HOME, broncitis, emphysema, type 2 dm Last Myocardial Infarction Date:: 2010 History of Any Multi-Drug Resistant Organisms: None Reported Past Surgical History: Cholecystectomy, Coronary Bypass/CABG, Heart Catheterization With Stent Additional Past Surgical History / Comment(s): 1st stent in 2010, 3 more stents placed -about 2014, open heart surgery 2016. Past Anesthesia/Blood Transfusion Reactions: No Reported Reaction Additional Past Anesthesia/Blood Transfusion Reaction / Comment(s): Claustrophobic Date of Last Stent Placement:: 2014 Past Psychological History: No Psychological Hx Reported Smoking Status: Former smoker Past Alcohol Use History: None Reported Past Drug Use History: None Reported - Past Family History Father Family Medical History: Myocardial Infarction ([place]) Additional Family Medical History / Comment(s): STENT, OPEN HEART SURGERY Mother Additional Family Medical History / Comment(s): DEPRESSION, mental illness <Bakari Perez - Last Filed: 11/11/20 23:36> General Exam Limitations: no limitations General appearance: alert, in no apparent distress, obese Head exam: Present: atraumatic, normocephalic, normal inspection Eye exam: Present: normal appearance, PERRL, EOMI Pupils: Present: normal accommodation ENT exam: Present: normal exam, normal oropharynx, mucous membranes moist Neck exam: Present: normal inspection, full ROM. Absent: tenderness Respiratory exam: Present: normal lung sounds bilaterally. Absent: respiratory distress Cardiovascular Exam: Present: regular rate, normal rhythm, normal heart sounds Extremities exam: Present: normal inspection, tenderness (Tenderness along the posterior lateral aspect of the right hip), normal capillary refill, other (Palpable DP and PT bilaterally). Absent: full ROM (Limited range of motion in the right hip due to pain), pedal edema, joint swelling, calf tenderness Back exam: Present: normal inspection, full ROM. Absent: tenderness, CVA tenderness (R), CVA tenderness (L) Neurological exam: Present: alert, oriented X3, normal gait Psychiatric exam: Present: normal affect, normal mood Skin exam: Present: warm, dry, intact, normal color <Bakari Perez - Last Filed: 11/11/20 23:36> Course Vital Signs 11/11/20 11/11/20 19:20 22:23 Temperature 97.9 F Pulse Rate 69 69 Respiratory 18 18 Rate Blood Pressure 110/59 120/57 O2 Sat by Pulse 96 98 Oximetry Medical Decision Making <Bakari Perez - Last Filed: 11/11/20 23:36> <Kelly Tinoco - Last Filed: 11/12/20 13:51> - Medical Decision Making 70-year-old female presents to emergency Department with a chief complaint of right hip pain. Medical records reviewed. On physical examination, she had right-sided limited range of motion due to pain. Mild tenderness along the posterior lateral aspect of the right hip. No calf tenderness. She is neurovascularly intact. No back pain. No concern for cauda equina. CT of the right hip shows no acute findings. Patient was given [place] for pain. Will be discharged with a 12 day course of [place]. Opioid form signed. I advised her to follow-up with an regional facilities specialist. Strict return parameters were thoroughly discussed the patient was understanding and agreeable. Case discussed with (Bakari Perez) I was available for consultation in the emergency department. The history and physical exam were done by the midlevel provider. I was consulted for this patients care. I reviewed the case with the midlevel provider and based on their presentation of the patient, I agree with the assessment, medical decision making and plan of care as documented. Chart was dictated using [employer] dictation software. Attempts were made to correct any dictation errors however some typographical errors may persist. Patient was seen during a national state of emergency due to the Covid-19 pandemic. (Kelly Tinoco) Disposition Is patient prescribed a controlled substance at d/c from ED?: No Time of Disposition: 22:04 <Bakari Perez - Last Filed: 11/11/20 23:36> <Kelly Tinoco - Last Filed: 11/12/20 13:51> Clinical Impression: Right hip pain Disposition: HOME SELF-CARE Condition: Stable Instructions (If sedation given, give patient instructions): Hip Pain (ED) Additional Instructions: Take prescribed medication as directed. Do not drive or operate heavy machinery when taking the medication. Follow up with an regional facilities specialist. Return to emergency department if symptoms worsen. Prescriptions: HYDROcodone/APAP 5-325MG [[place] 5-325] 1 tab PO Q6HR PRN 3 Days #12 tab PRN Reason: Pain Referrals: Elvira Gonzales MD [Primary Care Provider] - 1-2 days Willem Fried MD [STAFF PHYSICIAN] - 1-2 days
[2020-11-11] MEDS ORDERED: KETOROLAC 15 MG/ML 1 ML VIAL IVP STA (22:13)
[2020-11-11 22:30] VITALS: BP 120/57
== END 2020-11-11 22:40 | disposition home or self-care (01) ==
LOC: EC 19:06
DX: M25.551 Pain in right hip (principal); I25.119 Atherosclerotic heart disease of native coronary artery with unspecified angina pectoris; I11.0 Hypertensive heart disease with heart failure; E11.9 Type 2 diabetes mellitus without complications; I50.9 Heart failure, unspecified; E78.5 Hyperlipidemia, unspecified; I25.2 Old myocardial infarction; J43.9 Emphysema, unspecified; Z79.51 Long term (current) use of inhaled steroids; Z79.82 Long term (current) use of aspirin; Z79.4 Long term (current) use of insulin; Z79.899 Other long term (current) drug therapy; Z88.5 Allergy status to narcotic agent; Z87.891 Personal history of nicotine dependence; Z90.49 Acquired absence of other specified parts of digestive tract; Z95.5 Presence of coronary angioplasty implant and graft; Z95.1 Presence of aortocoronary bypass graft
CPT/HCPCS: 73700; 99284; 96374; J1885

== ENCOUNTER → 2021-01-03 | Outpatient (CLI) | payer MEDICARE ==
--- NOTE | 2021-01-05 08:46 | P.ARTDOP ---
Arterial Doppler LOWER EXTREMITY ARTERIAL DOPPLER: DATE OF SERVICE: 01/03/2021 Reason for study: Known atherosclerotic heart disease. Doppler waveforms: Multiphasic bilaterally throughout with good toe waveforms. Pulse volume recording: []. Pressure gradients: Mild gradients above the ankle. Increase gradients to the foot.. Ankle-brachial indices: 0.87 on the right and 0.96 on the left. Toe brachial indices: 0.34 on the right, 0.30 on the left Impression: Suspect mild fem-pop disease, more on the right than the left. Waveforms suggest decrease in toe pressure may be vasospastic in nature. Distal disease less likely..
== END | disposition home or self-care (01) ==
LOC: RADUSWWP 14:11
PROVIDERS: ATTEND Family Medicine
DX: I25.10 Atherosclerotic heart disease of native coronary artery without angina pectoris (principal)
CPT/HCPCS: 93923

== ENCOUNTER 2021-02-09 | Inpatient (IN) | payer MEDICARE | END 2021-02-09 13:18 | disposition home or self-care (01) | DRG 194 | PROVIDERS: ADMIT Internal Medicine | CPT/HCPCS: 36415; 71045; 80048; 83036; 83735; 83880; 84484; 85025; 87635; 93005; 94640; 99285 ==

== ENCOUNTER 2021-04-12 19:32 | Inpatient (IN) | payer MEDICARE ==
[2021-04-12 19:39] LABS: Glucose,Whole Blood 138 mg/dL (75-99)
[2021-04-12] MEDS ORDERED: levETIRAcetam IV 1,000 MG in SALINE 1 100ML.BAG IVPB STA (19:49)
--- NOTE | 2021-04-12 19:57 | ED ---
General Adult HPI - General Chief complaint: Altered Mental Status Stated complaint: Neuro Deficits Time Seen by Provider: 04/12/21 19:34 Source: patient, EMS, RN notes reviewed, old records reviewed Mode of arrival: EMS Limitations: altered mental status, physical limitation - History of Present Illness Initial comments: Patient is 71-year-old female with past medical history remarkable for prior MIs with multiple cardiac stents, COPD, asthma, heart failure, diabetes, hypertension not on blood thinners other than Plavix he presents emergency Department after sudden onset altered mental status. At approximate 7 PM today, she became acutely confused and was unable to walk due to weakness in both legs. Patient's family members called EMS, who brought the patient to the emergency department for evaluation. They stated that initially when they arrived, patient's symptoms completely resolved, however they shortly came back which prompted them to bring her to the emergency department. She currently has been unchanged since EMSs seen her symptoms come back. She has a significant amount of confusion and is unable to follow basic commands. She seems to have left lower extremity weakness. She is unable to provide any form of history to my self or other staff members. History is primarily through the EMR. She is not on any blood thinners per EMR. Last known well was approximately 30 minutes prior to arrival. - Related Data Home Medications Medication Instructions Recorded Confirmed Aspirin 81 mg PO HS 12/17/14 04/12/21 Metoprolol Succinate [Toprol XL] 50 mg PO HS 08/30/18 04/12/21 Furosemide [Lasix] 20 mg PO HS 05/19/20 04/12/21 Acetaminophen [Tylenol] 325 mg PO Q6H PRN 09/23/20 04/12/21 Atorvastatin [Lipitor] 80 mg PO HS 09/23/20 04/12/21 hydrOXYzine HCL [Atarax] 25 mg PO TID PRN 09/23/20 04/12/21 Clopidogrel Bisulfate [Plavix] 75 mg PO HS 11/11/20 04/12/21 Insulin Glargine,Hum.rec.anlog 44 unit SQ BID 11/11/20 04/12/21 [Lantus Solostar] Insulin Lispro [humaLOG Kwikpen] 15 dose SQ AC-TID 11/11/20 04/12/21 Hydrocortisone Cream 1 applic TOPICAL BID 02/07/21 04/12/21 [Hydrocortisone 2.5% Cream] traMADol HCL [Ultram] 50 mg PO BID PRN 02/07/21 04/12/21 Budesonide-Formot 160-4.5 Mcg 2 puff INHALATION RT-BID 04/12/21 04/12/21 [Symbicort 160-4.5 Mcg Inhaler] Losartan Potassium 100 mg PO HS 04/12/21 04/12/21 Previous Rx's Medication Instructions Recorded Ipratropium-Albuterol Nebulize 3 ml INHALATION RT-QID PRN #0 ml 02/09/21 [Duoneb 0.5 mg-3 mg/3 ml Soln] Allergies Allergy/AdvReac Type Severity Reaction Status Date / Time codeine AdvReac Nausea & Verified 04/12/21 21:23 Vomiting Review of Systems ROS Statement: Those systems with pertinent positive or pertinent negative responses have been documented in the HPI. Unable to obtain secondary to patient's current clinical state. ROS Other: All systems not noted in ROS Statement are negative. Past Medical History Past Medical History: Asthma, Coronary Artery Disease (CAD), Chest Pain / Angina, Heart Failure, COPD, Diabetes Mellitus, Hyperlipidemia, Hypertension, Myocardial Infarction ([place]), Respiratory Disorder, Syncope Additional Past Medical History / Comment(s): NEBULIZER AT HOME, broncitis, emphysema, type 2 dm Last Myocardial Infarction Date:: 2010 History of Any Multi-Drug Resistant Organisms: None Reported Past Surgical History: Cholecystectomy, Coronary Bypass/CABG, Heart Catheterization With Stent Additional Past Surgical History / Comment(s): 1st stent in 2010, 3 more stents placed -about 2014, open heart surgery 2016. Past Anesthesia/Blood Transfusion Reactions: No Reported Reaction Additional Past Anesthesia/Blood Transfusion Reaction / Comment(s): Claustrophobic Date of Last Stent Placement:: 2014 Past Psychological History: No Psychological Hx Reported Smoking Status: Former smoker Past Alcohol Use History: None Reported Past Drug Use History: None Reported - Past Family History Father Family Medical History: Myocardial Infarction ([place]) Additional Family Medical History / Comment(s): STENT, OPEN HEART SURGERY Mother Additional Family Medical History / Comment(s): DEPRESSION, mental illness General Exam - General Exam Comments Initial Comments: General: Appears confused. HEAD: Normal with no signs of head trauma. EYES: PERRLA, EOMI, conjunctiva normal, no discharge. Pupils are 3 mm bilaterally. They are equal. ENT: Hearing grossly intact, normal oropharynx. No obvious facial droop or weakness. RESPIRATORY: Clear breath sounds bilaterally. No wheezes, rales, or rhonchi. C/V: Regular rate and rhythm. S1 and S2 auscultated, no edema, peripheral pulses 2+ and intact throughout ABD: Abd is soft, nontender, nondistended EXT: Patient does have left lower extremity weakness with drift for its the bed. She doesn't appear to have any other extremity weakness. SKIN: No rashes or lesions observed on exposed skin. NEURO: Alert but not oriented. Neurological exam is difficult to complete secondary to patient's current clinical status. The best NIH stroke scale that I can obtain is 7 at this time, 2+ for aphasia, 2+ for left lower extremity drift, 2+ for incorrect month and age, 1+ for unable to squeeze hand on command. Limitations: altered mental status, physical limitation Course Vital Signs 04/12/21 04/12/21 04/12/21 19:36 19:39 19:45 Temperature 97.9 F 97.9 F Pulse Rate 61 58 L 68 Respiratory 18 18 18 Rate Blood Pressure 125/79 143/74 167/73 O2 Sat by Pulse 98 97 98 Oximetry 04/12/21 04/12/21 04/12/21 20:00 20:15 20:30 Temperature Pulse Rate 64 58 L Respiratory 18 18 18 Rate Blood Pressure 179/78 192/88 O2 Sat by Pulse 98 96 95 Oximetry 04/12/21 04/12/21 04/12/21 20:45 20:55 21:00 Temperature Pulse Rate 63 67 Respiratory 18 16 18 Rate Blood Pressure 140/66 116/64 166/71 O2 Sat by Pulse 97 95 96 Oximetry 04/12/21 04/12/21 21:15 21:30 Temperature Pulse Rate 65 65 Respiratory 18 18 Rate Blood Pressure 165/69 157/68 O2 Sat by Pulse 97 96 Oximetry Medical Decision Making - Medical Decision Making Based on the patient's presentation and physical exam, I'm concerned for an acute cerebrovascular accident and the patient. NIH stroke scale currently is 7 on exam. Last known well was 30 minutes prior to arrival at 7 PM this evening. She is a TPA candidate. Therefore stroke pager was activated. Altered mental status laboratory studies were also obtained and sent. This will include troponin, EKG, chest x-ray and blood work. Patient will immediately be sent to CT. Recurrent blood glucose was within normal limits. I spoke with the neuro wire brush operator on-call, , who was in agreement with this plan. Patient is not consentable for TPA at this Time, and therefore we will speak wi th patient's family when they arrive. He requested that I provide the patient with 1 g of IV Keppra anticipation is having seizure due to her waxing and waning symptoms. Patient's laboratory studies were remarkable for mild elevation in her BUNs at 20. Patient's care blood glucose is 161. Troponin is negative. Urinalysis is likely a contaminated catch. UDS is negative. EKG showed no acute changes or signs of acute ischemia. Patient's CT imaging revealed 50% stenosis of the right internal carotid artery, 25% stenosis of the distal right common carotid artery but no evidence of any significant stenosis on the left side or intracranial angiographic abnormality. Patient's CT imaging of the head without contrast revealed cerebral atrophy and no acute intracranial abnormality. Patient's chest x-ray revealed what appears to be no acute cardio pulmonary process. At this time patient's daughter did present to the department. I did consent the patient's daughter for TPA for the patient. I informed her the risks and benefits of using TPA. She is made well aware of the risk of intracranial hemorrhage following administration of TPA, over after discussion with Dr. Estrella we both recommended TPA as the benefits outweighed the risk due to her severe aphasia. The patient's daughter was in agreement with the plan. She consented to TPA for her mother. Patient was started on a Cardizem drip to control blood pressure with systolics became 160-180. TPA was started at approximately 0. The patient's neurological exam in the emergency department remained stable with an NIH of 7. This was unchanged. The remainder of her vital signs remained stable as well. The patient will therefore be admitted to the ICU. I spoke with the wool hanker on-call, Dr. Monique who accepted the patient to the unit. I suspect with on- call neurology, Dr. Maciel who was in agreement with the plan. I spoke with the admitting physician mid-level provider, Adri Davila who accepted the patient. Patient will be admitted under Dr. Arredondo in serious condition to the ICU. - Lab Data Result diagrams: 04/12/21 19:47 08/17/21 19:47 Lab Results 04/12/21 04/12/21 04/12/21 Range/Units 19:35 19:47 19:47 WBC 9.1 (3.8-10.6) k/uL RBC 4.20 (3.80-5.40) m/uL Hgb 13.5 (11.4-16.0) gm/dL Hct 40.7 (34.0-46.0) % MCV 96.8 (80.0-100.0) fL MCH 32.0 (25.0-35.0) pg MCHC 33.1 (31.0-37.0) g/dL RDW 13.1 (11.5-15.5) % Plt Count 299 (150-450) k/uL MPV 7.4 Neutrophils % 69 % Lymphocytes % 20 % Monocytes % 6 % Eosinophils % 3 % Basophils % 1 % Neutrophils # 6.3 (1.3-7.7) k/uL Lymphocytes # 1.8 (1.0-4.8) k/uL Monocytes # 0.5 (0-1.0) k/uL Eosinophils # 0.3 (0-0.7) k/uL Basophils # 0.1 (0-0.2) k/uL PT 10.0 (9.0-12.0) sec INR 0.9 (<1.2) APTT 21.5 L (22.0-30.0) sec Sodium (137-145) mmol/L Potassium (3.5-5.1) mmol/L Chloride (98-107) mmol/L Carbon Dioxide (22-30) mmol/L Anion Gap mmol/L BUN (7-17) mg/dL Creatinine (0.52-1.04) mg/dL Est GFR (CKD-EPI)AfAm (>60 ml/min/1.73 sqM) Est GFR (CKD-EPI)NonAf (>60 ml/min/1.73 sqM) Glucose (74-99) mg/dL POC Glucose (mg/dL) 138 H (75-99) mg/dL POC Glu Quality Engineer Medical Device ID Elsi Greene Calcium (8.4-10.2) mg/dL Total Bilirubin (0.2-1.3) mg/dL AST (14-36) U/L ALT (4-34) U/L Alkaline Phosphatase (38-126) U/L Ammonia (<30) umol/L Troponin I (0.000-0.034) ng/mL Total Protein (6.3-8.2) g/dL Albumin (3.5-5.0) g/dL Urine Color Urine Appearance (Clear) Urine pH (5.0-8.0) Ur Specific Victor (1.001-1.035) Urine Protein (Negative) Urine Glucose (UA) (Negative) Urine Ketones (Negative) Urine Blood (Negative) Urine Nitrite (Negative) Urine Bilirubin (Negative) Urine Urobilinogen (<2.0) mg/dL Ur Leukocyte Esterase (Negative) Urine RBC (0-5) /hpf Urine WBC (0-5) /hpf Ur Squamous Epith Cells (0-4) /hpf Urine Mucus (None) /hpf Urine Opiates Screen (NotDetected) Ur Oxycodone Screen (NotDetected) Urine Methadone Screen (NotDetected) Ur Propoxyphene Screen (NotDetected) Ur Barbiturates Screen (NotDetected) U Tricyclic Antidepress (NotDetected) Ur Phencyclidine Scrn (NotDetected) Ur Amphetamines Screen (NotDetected) U Methamphetamines Scrn (NotDetected) U Benzodiazepines Scrn (NotDetected) Urine Cocaine Screen (NotDetected) U Marijuana (THC) Screen (NotDetected) Serum Alcohol mg/dL 04/12/21 04/12/21 04/12/21 Range/Units 19:47 19:47 19:47 WBC (3.8-10.6) k/uL RBC (3.80-5.40) m/uL Hgb (11.4-16.0) gm/dL Hct (34.0-46.0) % MCV (80.0-100.0) fL MCH (25.0-35.0) pg MCHC (31.0-37.0) g/dL RDW (11.5-15.5) % Plt Count (150-450) k/uL MPV Neutrophils % % Lymphocytes % % Monocytes % % Eosinophils % % Basophils % % Neutrophils # (1.3-7.7) k/uL Lymphocytes # (1.0-4.8) k/uL Monocytes # (0-1.0) k/uL Eosinophils # (0-0.7) k/uL Basophils # (0-0.2) k/uL PT (9.0-12.0) sec INR (<1.2) APTT (22.0-30.0) sec Sodium 138 (137-145) mmol/L Potassium 4.2 (3.5-5.1) mmol/L Chloride 103 (98-107) mmol/L Carbon Dioxide 27 (22-30) mmol/L Anion Gap 8 mmol/L BUN 20 H (7-17) mg/dL Creatinine 0.82 (0.52-1.04) mg/dL Est GFR (CKD-EPI)AfAm 83 (>60 ml/min/1.73 sqM) Est GFR (CKD-EPI)NonAf 72 (>60 ml/min/1.73 sqM) Glucose 161 H (74-99) mg/dL POC Glucose (mg/dL) (75-99) mg/dL POC Glu Quality Engineer Medical Device ID Calcium 8.8 (8.4-10.2) mg/dL Total Bilirubin 0.5 (0.2-1.3) mg/dL AST 28 (14-36) U/L ALT 23 (4-34) U/L Alkaline Phosphatase 70 (38-126) U/L Ammonia <9 (<30) umol/L Troponin I <0.012 (0.000-0.034) ng/mL Total Protein 6.1 L (6.3-8.2) g/dL Albumin 3.4 L (3.5-5.0) g/dL Urine Color Urine Appearance (Clear) Urine pH (5.0-8.0) Ur Specific Victor (1.001-1.035) Urine Protein (Negative) Urine Glucose (UA) (Negative) Urine Ketones (Negative) Urine Blood (Negative) Urine Nitrite (Negative) Urine Bilirubin (Negative) Urine Urobilinogen (<2.0) mg/dL Ur Leukocyte Esterase (Negative) Urine RBC (0-5) /hpf Urine WBC (0-5) /hpf Ur Squamous Epith Cells (0-4) /hpf Urine Mucus (None) /hpf Urine Opiates Screen (NotDetected) Ur Oxycodone Screen (NotDetected) Urine Methadone Screen (NotDetected) Ur Propoxyphene Screen (NotDetected) Ur Barbiturates Screen (NotDetected) U Tricyclic Antidepress (NotDetected) Ur Phencyclidine Scrn (NotDetected) Ur Amphetamines Screen (NotDetected) U Methamphetamines Scrn (NotDetected) U Benzodiazepines Scrn (NotDetected) Urine Cocaine Screen (NotDetected) U Marijuana (THC) Screen (NotDetected) Serum Alcohol <10 mg/dL 04/12/21 Range/Units 19:47 WBC (3.8-10.6) k/uL RBC (3.80-5.40) m/uL Hgb (11.4-16.0) gm/dL Hct (34.0-46.0) % MCV (80.0-100.0) fL MCH (25.0-35.0) pg MCHC (31.0-37.0) g/dL RDW (11.5-15.5) % Plt Count (150-450) k/uL MPV Neutrophils % % Lymphocytes % % Monocytes % % Eosinophils % % Basophils % % Neutrophils # (1.3-7.7) k/uL Lymphocytes # (1.0-4.8) k/uL Monocytes # (0-1.0) k/uL Eosinophils # (0-0.7) k/uL Basophils # (0-0.2) k/uL PT (9.0-12.0) sec INR (<1.2) APTT (22.0-30.0) sec Sodium (137-145) mmol/L Potassium (3.5-5.1) mmol/L Chloride (98-107) mmol/L Carbon Dioxide (22-30) mmol/L Anion Gap mmol/L BUN (7-17) mg/dL Creatinine (0.52-1.04) mg/dL Est GFR (CKD-EPI)AfAm (>60 ml/min/1.73 sqM) Est GFR (CKD-EPI)NonAf (>60 ml/min/1.73 sqM) Glucose (74-99) mg/dL POC Glucose (mg/dL) (75-99) mg/dL POC Glu Quality Engineer Medical Device ID Calcium (8.4-10.2) mg/dL Total Bilirubin (0.2-1.3) mg/dL AST (14-36) U/L ALT (4-34) U/L Alkaline Phosphatase (38-126) U/L Ammonia (<30) umol/L Troponin I (0.000-0.034) ng/mL Total Protein (6.3-8.2) g/dL Albumin (3.5-5.0) g/dL Urine Color Light Yellow Urine Appearance Cloudy H (Clear) Urine pH 5.5 (5.0-8.0) Ur Specific Victor 1.033 (1.001-1.035) Urine Protein 2+ H (Negative) Urine Glucose (UA) Negative (Negative) Urine Ketones Negative (Negative) Urine Blood Small H (Negative) Urine Nitrite Negative (Negative) Urine Bilirubin Negative (Negative) Urine Urobilinogen <2.0 (<2.0) mg/dL Ur Leukocyte Esterase Moderate H (Negative) Urine RBC 10 H (0-5) /hpf Urine WBC 8 H (0-5) /hpf Ur Squamous Epith Cells 1 (0-4) /hpf Urine Mucus Rare H (None) /hpf Urine Opiates Screen Not Detected (NotDetected) Ur Oxycodone Screen Not Detected (NotDetected) Urine Methadone Screen Not Detected (NotDetected) Ur Propoxyphene Screen Not Detected (NotDetected) Ur Barbiturates Screen Not Detected (NotDetected) U Tricyclic Antidepress Not Detected (NotDetected) Ur Phencyclidine Scrn Not Detected (NotDetected) Ur Amphetamines Screen Not Detected (NotDetected) U Methamphetamines Scrn Not Detected (NotDetected) U Benzodiazepines Scrn Not Detected (NotDetected) Urine Cocaine Screen Not Detected (NotDetected) U Marijuana (THC) Screen Not Detected (NotDetected) Serum Alcohol mg/dL - EKG Data -: EKG Interpreted by Me EKG Comments: 12-lead Electrocardiogram Interpretation Note EKG was reviewed and interpreted by myself. 12-lead ECG performed at 1944 is interpreted by me as revealing normal sinus rhythm with first-degree AV block at a rate of 60 beats per minute. Left axis deviation. MT intervals 242 mg seconds, QRS duration is 130 ms, QTc is 452 ms.. There were no ST or T wave abnormalities to suggest myocardial ischemia or injury. R wave progression across the precordium was satisfactory. By my interpretation this EKG is non- diagnostic for acute ischemia. It does reveal a chronic left bundle branch block which is seen on prior EKGs. Disposition Clinical Impression: CVA (cerebral vascular accident), Altered mental status, Aphasia, Hypertension Disposition: ADMITTED IP TO THIS HOSP Condition: Serious Referrals: Elvira Gonzales MD [Primary Care Provider] - 1-2 days
[2021-04-12 19:59] LABS: Basophils # (A) 0.1 k/uL (0-0.2); Basophils % (A) 1 %; Eosinophils # (A) 0.3 k/uL (0-0.7); Eosinophils % (A) 3 %; HCT 40.7 % (34.0-46.0); HGB 13.5 gm/dL (11.4-16.0); Lymphocytes # (A) 1.8 k/uL (1.0-4.8); Lymphocytes % (A) 20 %; MCHC 33.1 g/dL (31.0-37.0); MCV 96.8 fL (80.0-100.0); Mean Platelet Volume 7.4; Monocytes # (A) 0.5 k/uL (0-1.0); Monocytes % (A) 6 %; Neutrophils # (A) 6.3 k/uL (1.3-7.7); Neutrophils % (A) 69 %; Platelet Count 299 k/uL (150-450); RDW 13.1 % (11.5-15.5); WBC 9.1 k/uL (3.8-10.6)
--- NOTE | 2021-04-12 20:10 | CT ---
EXAMINATION TYPE: CT brain wo con for TPA DATE OF EXAM: 04/12/2021 COMPARISON: 05/01/2017 HISTORY: Confusion, expressive aphasia. CT DLP: 1150.8 mGycm Automated exposure control for dose reduction was used. There is cerebral cortical atrophy. There is no mass effect nor midline shift. There is no sign of in tracranial hemorrhage. The calvarium is intact. There is hyperostosis frontalis. Skull base is intact . IMPRESSION: Cerebral atrophy. No acute intracranial abnormality. No change.
[2021-04-12 20:12] LABS: ALT 23 U/L (4-34); AST 28 U/L (14-36); African American GFR (CKD) 83 (>60 ml/min/1.73 sqM); Albumin 3.4 g/dL (3.5-5.0); Alcohol <10 mg/dL; Alkaline Phosphatase 70 U/L (38-126); Anion Gap 8 mmol/L; Blood Urea Nitrogen 20 mg/dL (7-17); Calcium 8.8 mg/dL (8.4-10.2); Carbon Dioxide 27 mmol/L (22-30); Chloride 103 mmol/L (98-107); Glucose 161 mg/dL (74-99); Non-African American GFR(CKD) 72 (>60 ml/min/1.73 sqM); Potassium 4.2 mmol/L (3.5-5.1); Sodium 138 mmol/L (137-145); Total Bilirubin 0.5 mg/dL (0.2-1.3); Total Protein 6.1 g/dL (6.3-8.2)
[2021-04-12] MEDS ORDERED: Alteplase PER PHARMACY Stroke 1 EACH MISC MISCELLANE PRN (20:12)
[2021-04-12] MEDS ORDERED: ALTEPLASE BOLUS FOR STROKE 6 MG in EMPTY SYRINGE 1 SYR IV STA (20:22)
[2021-04-12] MEDS ORDERED: ALTEPLASE 55 MG in EMPTY BAG 1 BAG IV STA (20:22)
[2021-04-12] MEDS: niCARdipine 20 MG in SODIUM CHLORIDE 0.9% 192 ML IV SCH (20:31)
--- NOTE | 2021-04-12 20:40 | CT ---
EXAMINATION TYPE: CT angio head neck DATE OF EXAM: 04/12/2021 COMPARISON: None HISTORY: Confusion, expressive aphasia. CT DLP: 605.6 mGycm Automated exposure control for dose reduction was used. CONTRAST: Performed with IV Contrast, patient injected with 65 mL of Isovue 370. Images obtained from the aortic arch to the vertex of the brain with IV contrast. There are 3-D post processed images. 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 Aortic arch is intact. There is arterial flow in both subclavian arteries. There is arterial flow in the common internal an d external carotid arteries bilaterally. There is arterial flow in both vertebral arteries. There is some plaque formation at the carotid artery bifurcations. There is approximate 50% stenosis at the o rigin of the right internal carotid artery. There is plaque and 25% stenosis distal right common tinoco tid artery. I see no significant stenosis on the left side. There is no evidence of carotid or verteb ral artery aneurysm or dissection. There is arterial flow in the anterior middle and posterior cerebral arteries. There is no mass effec t. There is no evidence of intracranial aneurysm or neovascularity. There is normal enhancement of th e venous sinuses. I see no evidence of intracranial arterial stenosis. IMPRESSION: There is approximate 50% stenosis origin of the right internal carotid artery. There is 25% stenosis of the distal right common carotid artery. No evidence of any significant stenosis on the left side. No significant intracranial angiographic abnormality.
[2021-04-12 20:55] LABS: INR 0.9 (<1.2)
[2021-04-12 21:01] LABS: Partial Thromboplastin Time 21.5 sec (22.0-30.0)
[2021-04-12 21:02] LABS: Appearance,Urine Cloudy (Clear); Bilirubin,Urine Negative (Negative); Blood,Urine Small (Negative); Color,Urine Light Yellow; Glucose,Urine (UA) Negative (Negative); Ketones,Urine Negative (Negative); Leukocyte Esterase,Urine Moderate (Negative); Mucus,Urine Rare /hpf; Nitrite,Urine Negative (Negative); PH, Urine 5.5 (5.0-8.0); Protein,Urine 2+ (Negative); RBC,Urine 10 /hpf (0-5); Specific Gravity,Urine 1.033 (1.001-1.035); Squamous Epithelial Cell,Urine 1 /hpf (0-4); Urobilinogen,Urine <2.0 mg/dL (<2.0); WBC,Urine 8 /hpf (0-5)
[2021-04-12 21:08] LABS: Amphetamine Screen,Urine Not Detected (NotDetected); Barbiturate Screen,Urine Not Detected (NotDetected); Benzodiazepines Screen,Urine Not Detected (NotDetected); Cocaine Screen,Urine Not Detected (NotDetected); Methadone Screen, Urine Not Detected (NotDetected); Opiate Screen,Urine Not Detected (NotDetected); Oxycodone Screen, Urine Not Detected (NotDetected); Phencyclidine Screen,Urine Not Detected (NotDetected); Tricyclic Antidepressant,Urine Not Detected (NotDetected); Urn Cannabinoid Scrn Not Detected (NotDetected)
[2021-04-12] MEDS ORDERED: SODIUM CHLORIDE 0.9% 50 ML MINI-BAG IV ONE ×2 (21:22→22:32)
[2021-04-12] MEDS ORDERED: NALOXONE 0.4 MG/ML 1 ML VIAL IV PRN (21:24)
--- NOTE | 2021-04-12 22:02 | XR ---
EXAMINATION TYPE: XR chest 1V portable DATE OF EXAM: 04/12/2021 COMPARISON: 02/07/2021 HISTORY: Short of breath TECHNIQUE: FINDINGS: Heart is enlarged. There is some pulmonary vascular congestion. There are no hilar masses. Mediastinum is normal. IMPRESSION: There is evidence for some congestive heart failure with increased pulmonary congestion c ompared to old exam.
[2021-04-12] MEDS ORDERED: ONDANSETRON 4 MG/2 ML VIAL IVP PRN (22:15)
--- NOTE | 2021-04-12 22:58 | ED ---
Medical Decision Making - Lab Data Result diagrams: 04/12/21 19:47 04/12/21 19:47 Lab Results 04/12/21 04/12/21 04/12/21 Range/Units 19:35 19:47 19:47 WBC 9.1 (3.8-10.6) k/uL RBC 4.20 (3.80-5.40) m/uL Hgb 13.5 (11.4-16.0) gm/dL Hct 40.7 (34.0-46.0) % MCV 96.8 (80.0-100.0) fL MCH 32.0 (25.0-35.0) pg MCHC 33.1 (31.0-37.0) g/dL RDW 13.1 (11.5-15.5) % Plt Count 299 (150-450) k/uL MPV 7.4 Neutrophils % 69 % Lymphocytes % 20 % Monocytes % 6 % Eosinophils % 3 % Basophils % 1 % Neutrophils # 6.3 (1.3-7.7) k/uL Lymphocytes # 1.8 (1.0-4.8) k/uL Monocytes # 0.5 (0-1.0) k/uL Eosinophils # 0.3 (0-0.7) k/uL Basophils # 0.1 (0-0.2) k/uL PT 10.0 (9.0-12.0) sec INR 0.9 (<1.2) APTT 21.5 L (22.0-30.0) sec Sodium (137-145) mmol/L Potassium (3.5-5.1) mmol/L Chloride (98-107) mmol/L Carbon Dioxide (22-30) mmol/L Anion Gap mmol/L BUN (7-17) mg/dL Creatinine (0.52-1.04) mg/dL Est GFR (CKD-EPI)AfAm (>60 ml/min/1.73 sqM) Est GFR (CKD-EPI)NonAf (>60 ml/min/1.73 sqM) Glucose (74-99) mg/dL POC Glucose (mg/dL) 138 H (75-99) mg/dL POC Glu Windmill Technician ID Elsi Greene Calcium (8.4-10.2) mg/dL Total Bilirubin (0.2-1.3) mg/dL AST (14-36) U/L ALT (4-34) U/L Alkaline Phosphatase (38-126) U/L Ammonia (<30) umol/L Troponin I (0.000-0.034) ng/mL Total Protein (6.3-8.2) g/dL Albumin (3.5-5.0) g/dL Urine Color Urine Appearance (Clear) Urine pH (5.0-8.0) Ur Specific [place] (1.001-1.035) Urine Protein (Negative) Urine Glucose (UA) (Negative) Urine Ketones (Negative) Urine Blood (Negative) Urine Nitrite (Negative) Urine Bilirubin (Negative) Urine Urobilinogen (<2.0) mg/dL Ur Leukocyte Esterase (Negative) Urine RBC (0-5) /hpf Urine WBC (0-5) /hpf Ur Squamous Epith Cells (0-4) /hpf Urine Mucus (None) /hpf Urine Opiates Screen (NotDetected) Ur Oxycodone Screen (NotDetected) Urine Methadone Screen (NotDetected) Ur Propoxyphene Screen (NotDetected) Ur Barbiturates Screen (NotDetected) U Tricyclic Antidepress (NotDetected) Ur Phencyclidine Scrn (NotDetected) Ur Amphetamines Screen (NotDetected) U Methamphetamines Scrn (NotDetected) U Benzodiazepines Scrn (NotDetected) Urine Cocaine Screen (NotDetected) U Marijuana (THC) Screen (NotDetected) Serum Alcohol mg/dL 04/12/21 04/12/21 04/12/21 Range/Units 19:47 19:47 19:47 WBC (3.8-10.6) k/uL RBC (3.80-5.40) m/uL Hgb (11.4-16.0) gm/dL Hct (34.0-46.0) % MCV (80.0-100.0) fL MCH (25.0-35.0) pg MCHC (31.0-37.0) g/dL RDW (11.5-15.5) % Plt Count (150-450) k/uL MPV Neutrophils % % Lymphocytes % % Monocytes % % Eosinophils % % Basophils % % Neutrophils # (1.3-7.7) k/uL Lymphocytes # (1.0-4.8) k/uL Monocytes # (0-1.0) k/uL Eosinophils # (0-0.7) k/uL Basophils # (0-0.2) k/uL PT (9.0-12.0) sec INR (<1.2) APTT (22.0-30.0) sec Sodium 138 (137-145) mmol/L Potassium 4.2 (3.5-5.1) mmol/L Chloride 103 (98-107) mmol/L Carbon Dioxide 27 (22-30) mmol/L Anion Gap 8 mmol/L BUN 20 H (7-17) mg/dL Creatinine 0.82 (0.52-1.04) mg/dL Est GFR (CKD-EPI)AfAm 83 (>60 ml/min/1.73 sqM) Est GFR (CKD-EPI)NonAf 72 (>60 ml/min/1.73 sqM) Glucose 161 H (74-99) mg/dL POC Glucose (mg/dL) (75-99) mg/dL POC Glu Windmill Technician ID Calcium 8.8 (8.4-10.2) mg/dL Total Bilirubin 0.5 (0.2-1.3) mg/dL AST 28 (14-36) U/L ALT 23 (4-34) U/L Alkaline Phosphatase 70 (38-126) U/L Ammonia <9 (<30) umol/L Troponin I <0.012 (0.000-0.034) ng/mL Total Protein 6.1 L (6.3-8.2) g/dL Albumin 3.4 L (3.5-5.0) g/dL Urine Color Urine Appearance (Clear) Urine pH (5.0-8.0) Ur Specific [place] (1.001-1.035) Urine Protein (Negative) Urine Glucose (UA) (Negative) Urine Ketones (Negative) Urine Blood (Negative) Urine Nitrite (Negative) Urine Bilirubin (Negative) Urine Urobilinogen (<2.0) mg/dL Ur Leukocyte Esterase (Negative) Urine RBC (0-5) /hpf Urine WBC (0-5) /hpf Ur Squamous Epith Cells (0-4) /hpf Urine Mucus (None) /hpf Urine Opiates Screen (NotDetected) Ur Oxycodone Screen (NotDetected) Urine Methadone Screen (NotDetected) Ur Propoxyphene Screen (NotDetected) Ur Barbiturates Screen (NotDetected) U Tricyclic Antidepress (NotDetected) Ur Phencyclidine Scrn (NotDetected) Ur Amphetamines Screen (NotDetected) U Methamphetamines Scrn (NotDetected) U Benzodiazepines Scrn (NotDetected) Urine Cocaine Screen (NotDetected) U Marijuana (THC) Screen (NotDetected) Serum Alcohol <10 mg/dL 04/12/21 Range/Units 19:47 WBC (3.8-10.6) k/uL RBC (3.80-5.40) m/uL Hgb (11.4-16.0) gm/dL Hct (34.0-46.0) % MCV (80.0-100.0) fL MCH (25.0-35.0) pg MCHC (31.0-37.0) g/dL RDW (11.5-15.5) % Plt Count (150-450) k/uL MPV Neutrophils % % Lymphocytes % % Monocytes % % Eosinophils % % Basophils % % Neutrophils # (1.3-7.7) k/uL Lymphocytes # (1.0-4.8) k/uL Monocytes # (0-1.0) k/uL Eosinophils # (0-0.7) k/uL Basophils # (0-0.2) k/uL PT (9.0-12.0) sec INR (<1.2) APTT (22.0-30.0) sec Sodium (137-145) mmol/L Potassium (3.5-5.1) mmol/L Chloride (98-107) mmol/L Carbon Dioxide (22-30) mmol/L Anion Gap mmol/L BUN (7-17) mg/dL Creatinine (0.52-1.04) mg/dL Est GFR (CKD-EPI)AfAm (>60 ml/min/1.73 sqM) Est GFR (CKD-EPI)NonAf (>60 ml/min/1.73 sqM) Glucose (74-99) mg/dL POC Glucose (mg/dL) (75-99) mg/dL POC Glu Windmill Technician ID Calcium (8.4-10.2) mg/dL Total Bilirubin (0.2-1.3) mg/dL AST (14-36) U/L ALT (4-34) U/L Alkaline Phosphatase (38-126) U/L Ammonia (<30) umol/L Troponin I (0.000-0.034) ng/mL Total Protein (6.3-8.2) g/dL Albumin (3.5-5.0) g/dL Urine Color Light Yellow Urine Appearance Cloudy H (Clear) Urine pH 5.5 (5.0-8.0) Ur Specific [place] 1.033 (1.001-1.035) Urine Protein 2+ H (Negative) Urine Glucose (UA) Negative (Negative) Urine Ketones Negative (Negative) Urine Blood Small H (Negative) Urine Nitrite Negative (Negative) Urine Bilirubin Negative (Negative) Urine Urobilinogen <2.0 (<2.0) mg/dL Ur Leukocyte Esterase Moderate H (Negative) Urine RBC 10 H (0-5) /hpf Urine WBC 8 H (0-5) /hpf Ur Squamous Epith Cells 1 (0-4) /hpf Urine Mucus Rare H (None) /hpf Urine Opiates Screen Not Detected (NotDetected) Ur Oxycodone Screen Not Detected (NotDetected) Urine Methadone Screen Not Detected (NotDetected) Ur Propoxyphene Screen Not Detected (NotDetected) Ur Barbiturates Screen Not Detected (NotDetected) U Tricyclic Antidepress Not Detected (NotDetected) Ur Phencyclidine Scrn Not Detected (NotDetected) Ur Amphetamines Screen Not Detected (NotDetected) U Methamphetamines Scrn Not Detected (NotDetected) U Benzodiazepines Scrn Not Detected (NotDetected) Urine Cocaine Screen Not Detected (NotDetected) U Marijuana (THC) Screen Not Detected (NotDetected) Serum Alcohol mg/dL Critical Care Time Critical Care Time: Yes Total Critical Care Time: 35 Critical Care Time: Upon my evaluation, this patient had a high probability of imminent or life- threatening deterioration due to acute stroke/cerebrovascular accident, which required my direct attention, intervention, and personal management. I have personally provided 35 minutes of critical care time exclusive of time spent on separately billable procedures. Time includes review of laboratory data, radiology results, discussion with consultants, and monitoring for potential decompensation. Interventions were performed as documented in my note. Disposition Clinical Impression: CVA (cerebral vascular accident), Altered mental status, Aphasia, Hypertension Disposition: ADMITTED IP TO THIS HOSP Condition: Serious
[2021-04-12] MEDS ORDERED: LORazepam 2 MG/ML INJ IV STA (23:34)
--- NOTE | 2021-04-13 00:03 | CT ---
EXAMINATION TYPE: CT brain wo con DATE OF EXAM: 04/12/2021 COMPARISON: Today HISTORY: Weakness CT DLP: mGycm Automated exposure control for dose reduction was used. There is cerebral atrophy. There is no mass effect nor midline shift. There is no sign of intracrania l hemorrhage. Calvarium is intact. There is normal aeration of the mastoid sinuses. Skull base is int act. IMPRESSION: Cerebral atrophy. No acute intracranial abnormality. No change.
[2021-04-13 01:15] LABS: Glucose,Whole Blood 128 mg/dL (75-99)
[2021-04-13 01:37] LABS: Glucose,Whole Blood 121 mg/dL (75-99)
[2021-04-13] MEDS: INSULIN ASPART (NovoLOG) 100 UNIT/ML VIAL SQ SCH ×4 (02:31→20:31)
[2021-04-13] MEDS: niCARdipine 20 MG in SODIUM CHLORIDE 0.9% 192 ML IV SCH ×6 (02:32→20:39)
[2021-04-13 05:43] LABS: ALT 20 U/L (4-34); AST 26 U/L (14-36); African American GFR (CKD) >90 (>60 ml/min/1.73 sqM); Albumin 3.3 g/dL (3.5-5.0); Alkaline Phosphatase 58 U/L (38-126); Anion Gap 9 mmol/L; Blood Urea Nitrogen 16 mg/dL (7-17); Calcium 9.2 mg/dL (8.4-10.2); Carbon Dioxide 24 mmol/L (22-30); Chloride 105 mmol/L (98-107); Glucose 134 mg/dL (74-99); Non-African American GFR(CKD) 87 (>60 ml/min/1.73 sqM); Potassium 4.1 mmol/L (3.5-5.1); Sodium 138 mmol/L (137-145); Total Bilirubin 0.8 mg/dL (0.2-1.3)
[2021-04-13 07:36] LABS: Basophils # (A) 0.1 k/uL (0-0.2); Basophils % (A) 1 %; Eosinophils # (A) 0.2 k/uL (0-0.7); Eosinophils % (A) 2 %; HCT 38.9 % (34.0-46.0); Lymphocytes # (A) 2.2 k/uL (1.0-4.8); Lymphocytes % (A) 21 %; MCH 32.4 pg (25.0-35.0); MCHC 33.5 g/dL (31.0-37.0); MCV 96.6 fL (80.0-100.0); Mean Platelet Volume 7.7; Monocytes # (A) 0.7 k/uL (0-1.0); Monocytes % (A) 7 %; Neutrophils % (A) 67 %; Platelet Count 308 k/uL (150-450); RBC 4.03 m/uL (3.80-5.40); RDW 13.6 % (11.5-15.5); WBC 10.5 k/uL (3.8-10.6)
--- NOTE | 2021-04-13 08:05 | P.HPIM ---
History of Present Illness This is a pleasant 71 this old female with past medical history of asthma/COPD, heart failure, coronary artery disease status post CABG, hypertension, hyperlipidemia, diabetes mellitus. She is a patient of Dr. Zelaya Patient could not provide information so it was obtained from staff, medical records. Patient symptoms started 7 PM last night with acute confusion and weakness in both legs, patient felt to have left sided weakness. And concern for expressive aphasia. Others some reports of transient improvement back to normal for short time on admission before her symptoms back again. Patient was found to be a candidate and after obtaining consent from daughter it was administered last night. Blood pressure controlled with Cardizem drip. And repeat CAT scan showed no intracranial hemorrhage. She was admitted to the intensive care unit. This morning patient is fully awake and in appropriate however she is confused to time, place and person. She only knows she is in the hospital but culture which Hospital at's. Is any specific symptoms. The last thing she remembers that she went to the bathroom. She denies previous history of stroke or TIA before. No chest pain or dyspnea. No abdominal complaint. No urinary complaints like no dysuria or change in frequency or urgency this morning she has mild weakness on the left leg and left arm compared to the right side. And her face deviated to the left side Patient presents because of acute or sent off, fusion and inability to talk or ambulate. Patient suspected to have expressive aphasia up on admission Vittosha looks stable, she is mildly tachypneic with a breathing rate 15-24. Afebrile. She is saturating 90-95% on 2 L oxygen nasal cannula. CBC is unremarkable . INR is normal at 0.9. BMP and liver enzymes are unremarkable as well. Urinalysis is suspicious for infection. Urine drug screen is negative. CT of the brain: No acute abnormality CTA of the brain showing 50% stenosis of the right internal carotid artery and there is 25% stenosis of the distal right common carotid artery. No evidence of significant stenosis on the left. Repeat CAT scan of the brain this morning showing still no acute intracranial abnormality with no change. Chest x-ray showing some congestive heart failure with increased congestion. Echocardiogram from 04/2020: Ejection fraction 55-60% with moderate left ventricular hypertrophy. With mild to moderate mitral stenosis The emergency room patient received TPA. Also Keppra and Ativan 1 for suspected seizure. Pulmonary/critical care team and neurology were consulted Review of Systems CONSTITUTIONAL: No fever, no malaise, no fatigue. HEENT: No recent visual problems or hearing problems. Denied any sore throat. CARDIOVASCULAR: No orthopnea, PND, no palpitations, no syncope. PULMONARY: No shortness of breath, no cough, no hemoptysis. GASTROINTESTINAL: No diarrhea, no nausea, no vomiting, no abdominal pain. Normoactive bowel sounds. NEUROLOGICAL: No headaches, no weakness, no numbness. HEMATOLOGICAL: Denies any bleeding or petechiae. GENITOURINARY: Denies any burning micturition, frequency, or urgency. MUSCULOSKELETAL/RHEUMATOLOGICAL: Denies any joint pain, swelling, or any muscle pain. ENDOCRINE: Denies any polyuria or polydipsia. Past Medical History Past Medical History: Asthma, Coronary Artery Disease (CAD), Chest Pain / Angina, Heart Failure, COPD, Diabetes Mellitus, Hyperlipidemia, Hypertension, Myocardial Infarction (MT), Respiratory Disorder, Syncope Additional Past Medical History / Comment(s): NEBULIZER AT HOME, broncitis, emphysema, type 2 dm Last Myocardial Infarction Date:: 2010 History of Any Multi-Drug Resistant Organisms: None Reported Past Surgical History: Cholecystectomy, Coronary Bypass/CABG, Heart Catheterization With Stent Additional Past Surgical History / Comment(s): 1st stent in 2010, 3 more stents placed -about 2014, open heart surgery 2016. Past Anesthesia/Blood Transfusion Reactions: No Reported Reaction Additional Past Anesthesia/Blood Transfusion Reaction / Comment(s): Claustrophobic Date of Last Stent Placement:: 2014 Past Psychological History: No Psychological Hx Reported Smoking Status: Former smoker Past Alcohol Use History: None Reported Additional Past Alcohol Use History / Comment(s): STARTED SMOKING AT AGE 16- WORKED UP TO 3 [employer], QUIT 2009 Past Drug Use History: None Reported - Past Family History Father Family Medical History: Myocardial Infarction (MT) Additional Family Medical History / Comment(s): STENT, OPEN HEART SURGERY Mother Additional Family Medical History / Comment(s): DEPRESSION, mental illness Medications and Allergies Home Medications Medication Instructions Recorded Confirmed Type Aspirin 81 mg PO HS 12/17/14 04/12/21 History Metoprolol Succinate [Toprol XL] 50 mg PO HS 08/30/18 04/12/21 History Furosemide [Lasix] 20 mg PO HS 05/19/20 04/12/21 History Acetaminophen [Tylenol] 325 mg PO Q6H PRN 09/23/20 04/12/21 History Atorvastatin [Lipitor] 80 mg PO HS 09/23/20 04/12/21 History hydrOXYzine HCL [Atarax] 25 mg PO TID PRN 09/23/20 04/12/21 History Clopidogrel Bisulfate [Plavix] 75 mg PO HS 11/11/20 04/12/21 History Insulin Glargine,Hum.rec.anlog 44 unit SQ BID 11/11/20 04/12/21 History [Lantus Solostar] Insulin Lispro [humaLOG Kwikpen] 15 dose SQ AC-TID 11/11/20 04/12/21 History Hydrocortisone Cream 1 applic TOPICAL BID 02/07/21 04/12/21 History [Hydrocortisone 2.5% Cream] traMADol HCL [Ultram] 50 mg PO BID PRN 02/07/21 04/12/21 History Ipratropium-Albuterol Nebulize 3 ml INHALATION RT-QID PRN #0 ml 02/09/21 04/12/21 Rx [Duoneb 0.5 mg-3 mg/3 ml Soln] Budesonide-Formot 160-4.5 Mcg 2 puff INHALATION RT-BID 04/12/21 04/12/21 History [Symbicort 160-4.5 Mcg Inhaler] Losartan Potassium 100 mg PO HS 04/12/21 04/12/21 History Allergies Allergy/AdvReac Type Severity Reaction Status Date / Time codeine AdvReac Nausea & Verified 04/12/21 21:23 Vomiting Physical Exam Vitals: Vital Signs Temp Pulse Resp BP Pulse Ox 04/13/21 06:00 54 L 15 95 04/13/21 05:00 68 24 144/73 94 L 04/13/21 04:00 97.8 F 72 25 H 122/61 90 L 04/13/21 03:00 66 14 164/68 93 L 04/13/21 02:00 67 26 H 179/86 96 04/13/21 01:35 97.7 F 72 25 H 95 04/13/21 01:00 67 18 143/61 95 04/13/21 00:45 67 18 144/71 96 04/13/21 00:15 64 18 152/54 97 04/13/21 00:00 66 18 147/61 95 04/12/21 23:45 18 142/50 04/12/21 23:32 66 18 142/56 95 04/12/21 23:00 66 18 143/88 97 04/12/21 22:45 64 18 158/72 96 04/12/21 22:15 71 18 157/66 98 04/12/21 22:00 78 18 97 04/12/21 21:45 74 18 156/64 97 04/12/21 21:30 65 18 157/68 96 04/12/21 21:15 65 18 165/69 97 04/12/21 21:00 67 18 166/71 96 04/12/21 20:55 63 16 116/64 95 04/12/21 20:45 18 140/66 97 04/12/21 20:30 18 192/88 95 04/12/21 20:15 58 L 18 96 04/12/21 20:00 64 18 179/78 98 04/12/21 19:45 68 18 167/73 98 04/12/21 19:39 97.9 F 58 L 18 143/74 97 04/12/21 19:36 97.9 F 61 18 125/79 98 Intake and Output 04/12/21 04/13/21 04/13/21 22:59 06:59 14:59 Intake Total 34.583 33.333 Output Total 300 Balance 34.583 -266.667 Intake: Intake, IV Titration 34.583 33.333 Amount niCARdipine 20 mg In 34.583 33.333 Sodium Chloride 0.9% 192 ml @ 5 MG/HR 50 mls/hr IV .Q4H [facility] Rx#:[id number] Output: Urine 300 Other: Voiding Method Indwelling Catheter # Voids 65 Weight 68.039 kg 68.039 kg -GENERAL: The patient is confused, not in any acute distress. Well developed, well nourished. HEENT: Pupils are round and equally reacting to light. EOMI. No scleral icterus. No conjunctival pallor. Normocephalic, atraumatic. No pharyngeal erythema. No thyromegaly. CARDIOVASCULAR: S1 and S2 present. No murmurs, rubs, or gallops. PULMONARY: Chest is clear to auscultation, no wheezing or crackles. ABDOMEN: Soft, nontender, nondistended, normoactive bowel sounds. No palpable organomegaly. MUSCULOSKELETAL: No joint swelling or deformity. EXTREMITIES: No cyanosis, clubbing, or pedal edema. NEUROLOGICAL: Gross neurological examination did not reveal any focal deficits. SKIN: No rashes. No petechiae Results CBC & Chem 7: 04/13/21 04:45 04/13/21 04:45 Labs: Abnormal Lab Results - Last 24 Hours (Table) 04/12/21 04/12/21 04/12/21 Range/Units 19:35 19:47 19:47 APTT 21.5 L (22.0-30.0) sec BUN 20 H (7-17) mg/dL Glucose 161 H (74-99) mg/dL POC Glucose (mg/dL) 138 H (75-99) mg/dL Total Protein 6.1 L (6.3-8.2) g/dL Albumin 3.4 L (3.5-5.0) g/dL Urine Appearance (Clear) Urine Protein (Negative) Urine Blood (Negative) Ur Leukocyte Esterase (Negative) Urine RBC (0-5) /hpf Urine WBC (0-5) /hpf Urine Mucus (None) /hpf 04/12/21 04/13/21 04/13/21 Range/Units 19:47 01:14 01:35 APTT (22.0-30.0) sec BUN (7-17) mg/dL Glucose (74-99) mg/dL POC Glucose (mg/dL) 128 H 121 H (75-99) mg/dL Total Protein (6.3-8.2) g/dL Albumin (3.5-5.0) g/dL Urine Appearance Cloudy H (Clear) Urine Protein 2+ H (Negative) Urine Blood Small H (Negative) Ur Leukocyte Esterase Moderate H (Negative) Urine RBC 10 H (0-5) /hpf Urine WBC 8 H (0-5) /hpf Urine Mucus Rare H (None) /hpf 04/13/21 Range/Units 04:45 APTT (22.0-30.0) sec BUN (7-17) mg/dL Glucose 134 H (74-99) mg/dL POC Glucose (mg/dL) (75-99) mg/dL Total Protein 6.0 L (6.3-8.2) g/dL Albumin 3.3 L (3.5-5.0) g/dL Urine Appearance (Clear) Urine Protein (Negative) Urine Blood (Negative) Ur Leukocyte Esterase (Negative) Urine RBC (0-5) /hpf Urine WBC (0-5) /hpf Urine Mucus (None) /hpf Thrombosis Risk Factor Assmnt - Choose All That Apply Each Factor Represents 1 point: Abnormal pulmonary function (COPD), Medical pt on bed rest Each Risk Factor Represents 2 Points: Age 61-74 years Other congenital or acquired thrombophilia - If yes, enter type in comment: No Thrombosis Risk Factor Assessment Total Risk Factor Score: 4 Thrombosis Risk Factor Assessment Level: Moderate Risk Assessment and Plan Assessment: Acute stroke, with confusion, expressive aphasia and possible leg weakness. Status post TPA on 04/12. Seizure is less likely. Improved significantly still have mild left hemiparesis anticipated to the left. 50% stenosis of the origin of the right internal carotid artery. Asymptomatic bacteriuria rather than Acute urinary tract infection Possible a mild cute diastolic CHF Diabetes mellitus Hypertension Hyperlipidemia History of coronary artery disease status post CABG History of asthma/COPD, no acute exacerbation. Plan: This is a pleasant 71 years old female who presents because of stroke. Continue with ICU management. Pulmonary/critical care consult Neurology was consulted. Patient currently not on aspirin or Plavix, We'll consult vascular surgery. Recheck urinalysis. Check pro-calcitonin. Check proBNP Check echocardiogram Labs and medication were reviewed.. Continue same treatment. Continue with symptomatic treatment. Resume home medication. Monitor lytes and vitals. DVT and GI prophylaxis. Further recommendations depends on the clinical course of the patient DVT prophylaxis: no Subcutaneous heparin currently. Patient status TPA GI Prophylaxis: Pepcid Prognosis is guarded
--- NOTE | 2021-04-13 08:59 | P.CNNES ---
History of Present Illness Consult date: 04/13/21 Requesting physician: Terence Pizano Reason for Consult: stroke post tpa History of Present Illness: This is a 71-year-old woman with medical history of coronary artery disease status post stents, myocardial infarction, CABG heart failure, diabetes mellitus, hypertension who presented emergency department via EMS on 04/12/2021 for altered mental status. Patient arrived to our facility around 19:32. Some of the history is obtained from medical record. Per the ED note patient onset of symptoms started about 7 PM on 04/12/2021. Per the patient yesterday while sitting on the chair in chair area, she was talking to her daughter then her daughter told her she was not talking right and she was mumbling her speech. She also noted to have right leg weakness. She denies of any visual disturbance, headaches, numbness or tingling or difficulty swallowing. Per the ED note, she became acutely confused and unable to walk and had weakness in both legs. Initially when she presented to the emergency department her symptoms has resolved but they reemerged. Regarding the computer seems the patient cannot follow commands and having left lower extremity weakness. Patient is not on any anticoagulation. Patient denies history of strokes, TIA or seizure in the past. She stated she was a former smoker and use to smoke 2PPD and sopped about 11 years ago but could not tell me how long she smoked for. Currently the patient is feeling her speech is drastically improved. She does state that she has chronic lower back pain that radiates to the right leg but nothing is new recently. She denies of bladder or bowel issues recently. Some of the patients home medications consist of Lasix, tramadol, Lantus, Humalog, Plavix 75 mg daily at bedtime, aspirin 81 mg daily, Lipitor 80 mg daily at bedtime, losartan, metoprolol. Patient workup in the hospital consisted of: Initial vital signs was blood pressure of 125/79, heart rate of 61, temperature of 97.9 Fahrenheit oral, respiratory of 18 and pulse ox of 98% on 2 L of nasal cannula. For the most part the patient's blood pressure has been in the range of systolic 140s to 150s predominantly and diastolic between the 50s and 60s there are episode in the 80s. CBC with differential is unremarkable. Chemistry panel is the initial serum glucose is 161 which is slightly elevated otherwise the rest of the chemistry panel seems unremarkable. Coagulation study: PT of 10.0, INR 0.9, PTT of 21.5 EKG is reported as sinus rhythm with first-degree AV block. Left axis deviation. Left bundle branch block. Abnormal EKG. Stroke code was activated. Patient NIH was a 7 per ED team. The points per ED team are 2 aphasia, 2 lower extremity drigft, 2 incorrect month and age, 1 unablet to see hand on command. CT of the head is reported as cerebral atrophy. No acute intracranial abnormality. No change. CT angiography of the head and neck was reported as there is approximate 50% stenosis origin of the right internal carotid artery. There is 25% stenosis of the distal right common carotid artery. No evidence of any significant stenosis of the left. No significant intercranial and angiographic abnormality. The ED team spoke with the stroke attending (Dr. Estrella) and it was agreed that the patient was a TPA candidate. TPA bolus 6mg was given at 20:52. While rest of tpa of 55mg was given at 20:53 and stopped at 21:53. Prior to the TPA the patient was started on Cardizem drip to control her blood pressure. Also of note the stroke attending requested that the patient receives Keppra IV 1 g due to her waxing and waning symptoms. Seems that the patient was also given Ativan 1 mg once by the ED team around 2334 Patient had a repeat CT of the head later yesterday and it is noted on CT head comment for weakness. The CT head is reported as cerebral atrophy. No acute intracranial abnormality. No change. Review of Systems Review of system: The 12 point system was reviewed and apparent positive and negative per HPI. Past Medical History Past Medical History: Asthma, Coronary Artery Disease (CAD), Chest Pain / Angina, Heart Failure, COPD, Diabetes Mellitus, Hyperlipidemia, Hypertension, Myocardial Infarction (OR), Respiratory Disorder, Syncope Additional Past Medical History / Comment(s): NEBULIZER AT HOME, broncitis, emphysema, type 2 dm Last Myocardial Infarction Date:: 2010 History of Any Multi-Drug Resistant Organisms: None Reported Past Surgical History: Cholecystectomy, Coronary Bypass/CABG, Heart Catheterization With Stent Additional Past Surgical History / Comment(s): 1st stent in 2010, 3 more stents placed -about 2014, open heart surgery 2016. Past Anesthesia/Blood Transfusion Reactions: No Reported Reaction Additional Past Anesthesia/Blood Transfusion Reaction / Comment(s): Claustrophobic Date of Last Stent Placement:: 2014 Past Psychological History: No Psychological Hx Reported Smoking Status: Former smoker Past Alcohol Use History: None Reported Additional Past Alcohol Use History / Comment(s): STARTED SMOKING AT AGE 16- WORKED UP TO 3 [employer], QUIT 2009 Past Drug Use History: None Reported - Past Family History Father Family Medical History: Myocardial Infarction (OR) Additional Family Medical History / Comment(s): STENT, OPEN HEART SURGERY Mother Additional Family Medical History / Comment(s): DEPRESSION, mental illness Medications and Allergies Home Medications Medication Instructions Recorded Confirmed Type Aspirin 81 mg PO HS 12/17/14 04/12/21 History Metoprolol Succinate [Toprol XL] 50 mg PO HS 08/30/18 04/12/21 History Furosemide [Lasix] 20 mg PO HS 05/19/20 04/12/21 History Acetaminophen [Tylenol] 325 mg PO Q6H PRN 09/23/20 04/12/21 History Atorvastatin [Lipitor] 80 mg PO HS 09/23/20 04/12/21 History hydrOXYzine HCL [Atarax] 25 mg PO TID PRN 09/23/20 04/12/21 History Clopidogrel Bisulfate [Plavix] 75 mg PO HS 11/11/20 04/12/21 History Insulin Glargine,Hum.rec.anlog 44 unit SQ BID 11/11/20 04/12/21 History [Lantus Solostar] Insulin Lispro [humaLOG Kwikpen] 15 dose SQ AC-TID 11/11/20 04/12/21 History Hydrocortisone Cream 1 applic TOPICAL BID 02/07/21 04/12/21 History [Hydrocortisone 2.5% Cream] traMADol HCL [Ultram] 50 mg PO BID PRN 02/07/21 04/12/21 History Ipratropium-Albuterol Nebulize 3 ml INHALATION RT-QID PRN #0 ml 02/09/21 04/12/21 Rx [Duoneb 0.5 mg-3 mg/3 ml Soln] Budesonide-Formot 160-4.5 Mcg 2 puff INHALATION RT-BID 04/12/21 04/12/21 History [Symbicort 160-4.5 Mcg Inhaler] Losartan Potassium 100 mg PO HS 04/12/21 04/12/21 History Allergies Allergy/AdvReac Type Severity Reaction Status Date / Time codeine AdvReac Nausea & Verified 04/12/21 21:23 Vomiting Physical Examination - Vital Signs Vital Signs: Vital Signs Temp Pulse Resp BP Pulse Ox 04/13/21 07:00 54 L 16 131/56 99 04/13/21 06:00 54 L 15 95 04/13/21 05:00 68 24 144/73 94 L 04/13/21 04:00 97.8 F 72 25 H 122/61 90 L 04/13/21 03:00 66 14 164/68 93 L 04/13/21 02:00 67 26 H 179/86 96 04/13/21 01:35 97.7 F 72 25 H 95 04/13/21 01:00 67 18 143/61 95 04/13/21 00:45 67 18 144/71 96 04/13/21 00:15 64 18 152/54 97 04/13/21 00:00 66 18 147/61 95 04/12/21 23:45 18 142/50 04/12/21 23:32 66 18 142/56 95 04/12/21 23:00 66 18 143/88 97 04/12/21 22:45 64 18 158/72 96 04/12/21 22:15 71 18 157/66 98 04/12/21 22:00 78 18 97 04/12/21 21:45 74 18 156/64 97 04/12/21 21:30 65 18 157/68 96 04/12/21 21:15 65 18 165/69 97 04/12/21 21:00 67 18 166/71 96 04/12/21 20:55 63 16 116/64 95 04/12/21 20:45 18 140/66 97 04/12/21 20:30 18 192/88 95 04/12/21 20:15 58 L 18 96 04/12/21 20:00 64 18 179/78 98 04/12/21 19:45 68 18 167/73 98 04/12/21 19:39 97.9 F 58 L 18 143/74 97 04/12/21 19:36 97.9 F 61 18 125/79 98 Intake and Output 04/12/21 04/13/21 04/13/21 22:59 06:59 14:59 Intake Total 34.583 33.333 Output Total 300 Balance 34.583 -266.667 Intake: Intake, IV Titration 34.583 33.333 Amount niCARdipine 20 mg In 34.583 33.333 Sodium Chloride 0.9% 192 ml @ 5 MG/HR 50 mls/hr IV .Q4H [facility] Rx#:[id number] Output: Urine 300 Other: Voiding Method Indwelling Catheter # Voids 65 50 Weight 68.039 kg 68.039 kg GENERAL: The patient is lying in bed and is not in acute distress. CHEST: The heart rate is regular rate rhythm. No murmurs to auscultation. No carotid bruit bilaterally. LUNG: Clear to auscultation bilaterally no wheezing noted throughout. Not labored breathing. ABDOMEN/GI: Bowel sounds present in all 4 quadrants. No tenderness to palpation throughout. NEUROLOGICAL: Higher mental function: The patient is awake, alert, oriented to self. She stated that she was in the hospital and stated that she was in [facility]. She could not tell me year or month. She is able to name objects correctly (pen, watch and cup). Patient is following commands. No aphasia and no neglect. Intact repetition. Cranial nerves: The pupils are round, equal and reactive to light and accommodation. Visual robert are full to confrontation throughout. Extraocular movement is intact no nystagmus is noted. Facial sensation is normal to touch throughout. The facial strength is normal throughout. Hearing is moderately decreased bilaterally to hand rub. Tongue is midline and moved [id number] without any difficulty. No dysarthria is noted. Shoulder shrug is normal bilaterally. Motor: Gait is deferred. 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 Otherwise uppers are 5/5. Lowers proximally is 5/5 while knee extensions are 3-4 bilaterally and falls to bed on extension within 5 seconds, ankles 5/5. Normal tone and bulk. Cerebellum: Normal finger to nose bilaterally. Sensation: Sensation is normal to touch throughout. Reflexes (right/left): 2+ throughout uppers while lowers are 1+ bilaterally.. Plantars are downgoing bilaterally. Results AST of 28 and ALT 23. Ammonia is less than 9 which is considered within normal limits. Calcium is 8.8 which considered within normal limits. Urine toxicology screen is a negative in the serum alcohol was less than 10. Urinalysis is the urine appears cloudy, leukocyte esterase was moderate, urine white blood cells 8. - Laboratory Findings CBC and BMP: 04/13/21 04:45 04/13/21 04:45 Abnormal Lab Findings: Abnormal Labs 04/12/21 04/12/21 04/12/21 19:35 19:47 19:47 APTT 21.5 L BUN 20 H Glucose 161 H POC Glucose (mg/dL) 138 H Total Protein 6.1 L Albumin 3.4 L Urine Appearance Urine Protein Urine Blood Ur Leukocyte Esterase Urine RBC Urine WBC Urine Mucus 04/12/21 04/13/21 04/13/21 19:47 01:14 01:35 APTT BUN Glucose POC Glucose (mg/dL) 128 H 121 H Total Protein Albumin Urine Appearance Cloudy H Urine Protein 2+ H Urine Blood Small H Ur Leukocyte Esterase Moderate H Urine RBC 10 H Urine WBC 8 H Urine Mucus Rare H 04/13/21 04:45 APTT BUN Glucose 134 H POC Glucose (mg/dL) Total Protein 6.0 L Albumin 3.3 L Urine Appearance Urine Protein Urine Blood Ur Leukocyte Esterase Urine RBC Urine WBC Urine Mucus Assessment and Plan Assessment: Acute ischemic stroke status post TPA (NIH 7. Aphasia, leg weakness (per ed left but on my examination bilateral), commands)--improvement in aphasia. Chronic lower back pain with radiation to the right leg seems like radiculopathy (but per patient no worsening of her lower back pain) Diabetes mellitus and serum glucose seems to be well-controlled History of Hypertension History of coronary artery disease status post stent History of myocardia infarction s/p CABG Heart failure Former nicotine use (stopped 11 years ago) Plan: * CT of the head is ordered 24 hours post-TPA. I'll order MRI of the brain for later today and if it could be done later tonight around 1999 today and if done around that time can disregard CT head). * We'll avoid any antiplatelets until the repeat CT of the head for today. If negative for the bleed then I will start the patient on aspirin 81mg daily and I'll hold off on the Plavix and we'll instead start the patient on Brilinta 90 mg 1 tablet twice a day. Was started on Lipitor 80mg qhs for secondary stroke prophylaxis. * Lipid panel is ordered. * I ordered TSH, hemoglobin A1c, 2-D echo. * PT, OT and ADVERTISING SUPERVISOR are consulted * Neuro checks per TPA protocol. * On continuous cardiac monitoring. * Please keep the blood pressure less than 185 systolic and diastolic less than 110 per IV TPA protocol. * We'll defer the rest of the medical management to the primary team and ICU team. For DVT prophylaxis: SCD (please avoid heparin or Lovenox for now because IV t pa). After repeat imaging today will decide further modification of management. The plan is discussed with ICU nurse. Thank you for the consultation. Dirk Maciel MD Neuro-Hospitalist. Time with Patient: Greater than 30
[2021-04-13 09:48] LABS: Chol/HDL Ratio 3.29; Cholesterol 112 mg/dL (0-200); LDL Cholesterol,Calculated 62.6 mg/dL (0.0-131.0)
--- NOTE | 2021-04-13 10:32 | P.CNPUL ---
History of Present Illness Consult date: 04/13/21 Requesting physician: Terence Pizano Reason for consult: other Chief complaint: Altered mental status, aphasia History of present illness: This is a 71-year-old white female patient with extensive medical history including COPD, hypertension, hyperlipidemia, previous history of myocardial inf arction, coronary artery disease with previous stenting and bypass grafting in 2017, diabetes mellitus, former smoker, who presented to the emergency department on 04/12/2021 by EMS for evaluation of altered mental status, and aphasia. Patient states she laid down to take a nap yesterday in the afternoon, and she woke up 2 hours later and her daughter noticed that she was acutely confused, was difficult to understand, and patient was not able to follow basic commands. She also seemed to have left lower extremity weakness. MRSA alerted the EMS, and when the EMS arrived they noted that patient's symptoms completely resolved however the symptoms shortly came back and she was brought to the e mergency department for further evaluation and treatment. Patient was found to be TPA candidate. CT imaging of the head without contrast revealed cerebral atrophy and no acute intracranial abnormality, patient's blood glucose was 161. Urine drug screen was negative, EKG showed no acute changes or signs of acute ischemia. Patient's chest x-ray revealed no acute cardiopulmonary process. Code stroke was alerted, TPA was recommended and administered. Neurology interventionalist also recommended 1 g of IV Keppra for possible anticipated seizure. CT angiography of the head and neck showed approximately 50% stenosis in the right ICA, 25% stenosis in the distal RCA, no evidence of any significant stenosis on the left side, no significant intracranial angiographic abnormality. Patient was then transferred to the intensive care unit for advanced neurological monitoring following TPA administration, follow-up brain CT without contrast on 04/12/2021 at 2300 showed no acute intracranial abnormality. This morning patient is seen in intensive care unit. She is awake and alert, oriented to person and place. She seems to be disoriented to time. She appears to be in no acute distress, she is generally weak, still has a residual left sided weakness, however her speech has dramatically improved, and seems to be speaking normally. She denies any respiratory difficulty, lung sounds reveal just a few basilar crackles at the right base, no wheezing, no cough, no chest pain, blood pressures 125/79, and she is in sinus mechanism with a rate of 61 BPM, she has been afebrile. She did require nicardipine infusion yesterday for elevated blood pressures which is currently discontinued. Systolic pressure is 120-140 and her diastolic in the 60s and 70s. Patient was able to sit up on the edge of the bed with assistance, she is generally weak, requiring extensive assistance with 2 people assist. This morning echocardiogram is pending, carotid Doppler has been completed, awaiting results of radiology report. MRI of the brain is pending for today, currently on 0.9 normal saline at 50 ML per hour, no other drips, we will restart her high-dose Lipitor 80 mg at bedtime, she is on Pepcid for GI prophylaxis, but sugar monitoring every 6 hours, her last blood sugar is 134 this morning. Morning's labs have been reviewed, showing a white count of 10.5, hemoglobin of 13, electrolytes and renal profile are within normal limits, troponin was negative 1, at less than 0.012, ammonia level was less than 9, LFTs were within normal limits, LDL was 62, HDL was 34, total cholesterol of 112, triglycerides is 77. Urinalysis showed cloudy urine, with 2+ protein, moderate loose, but no clear evidence of infection. Review of Systems All systems: negative Constitutional: Denies chills, Denies fever Eyes: denies blurred vision, denies pain Ears, nose, mouth and throat: Denies headache, Denies sore throat Cardiovascular: Denies chest pain, Denies shortness of breath Respiratory: Denies cough Gastrointestinal: Denies abdominal pain, Denies diarrhea, Denies nausea, Denies vomiting Genitourinary: Denies dysuria, Denies hematuria Musculoskeletal: Denies myalgias Integumentary: Denies pruritus, Denies rash Neurological: Reports aphasia, Reports balance difficulties, Reports change in mentation, Reports change in speech, Denies numbness, Denies weakness Psychiatric: Denies anxiety, Denies depression Endocrine: Denies fatigue, Denies weight change Past Medical History Past Medical History: Asthma, Coronary Artery Disease (CAD), Chest Pain / Angina, Heart Failure, COPD, Diabetes Mellitus, Hyperlipidemia, Hypertension, Myocardial Infarction ([place]), Respiratory Disorder, Syncope Additional Past Medical History / Comment(s): NEBULIZER AT HOME, broncitis, emphysema, type 2 dm Last Myocardial Infarction Date:: 2010 History of Any Multi-Drug Resistant Organisms: None Reported Past Surgical History: Cholecystectomy, Coronary Bypass/CABG, Heart Catheterization With Stent Additional Past Surgical History / Comment(s): 1st stent in 2010, 3 more stents placed -about 2014, open heart surgery 2016. Past Anesthesia/Blood Transfusion Reactions: No Reported Reaction Additional Past Anesthesia/Blood Transfusion Reaction / Comment(s): Claustrophobic Date of Last Stent Placement:: 2014 Past Psychological History: No Psychological Hx Reported Smoking Status: Former smoker Past Alcohol Use History: None Reported Additional Past Alcohol Use History / Comment(s): STARTED SMOKING AT AGE 16- WORKED UP TO 3 [employer], QUIT 2009 Past Drug Use History: None Reported - Past Family History Father Family Medical History: Myocardial Infarction ([place]) Additional Family Medical History / Comment(s): STENT, OPEN HEART SURGERY Mother Additional Family Medical History / Comment(s): DEPRESSION, mental illness Medications and Allergies Home Medications Medication Instructions Recorded Confirmed Type Aspirin 81 mg PO HS 12/17/14 04/12/21 History Metoprolol Succinate [Toprol XL] 50 mg PO HS 08/30/18 04/12/21 History Furosemide [Lasix] 20 mg PO HS 05/19/20 04/12/21 History Acetaminophen [Tylenol] 325 mg PO Q6H PRN 09/23/20 04/12/21 History Atorvastatin [Lipitor] 80 mg PO HS 09/23/20 04/12/21 History hydrOXYzine HCL [Atarax] 25 mg PO TID PRN 09/23/20 04/12/21 History Clopidogrel Bisulfate [Plavix] 75 mg PO HS 11/11/20 04/12/21 History Insulin Glargine,Hum.rec.anlog 44 unit SQ BID 11/11/20 04/12/21 History [Lantus Solostar] Insulin Lispro [humaLOG Kwikpen] 15 dose SQ AC-TID 11/11/20 04/12/21 History Hydrocortisone Cream 1 applic TOPICAL BID 02/07/21 04/12/21 History [Hydrocortisone 2.5% Cream] traMADol HCL [Ultram] 50 mg PO BID PRN 02/07/21 04/12/21 History Ipratropium-Albuterol Nebulize 3 ml INHALATION RT-QID PRN #0 ml 02/09/21 04/12/21 Rx [Duoneb 0.5 mg-3 mg/3 ml Soln] Budesonide-Formot 160-4.5 Mcg 2 puff INHALATION RT-BID 04/12/21 04/12/21 History [Symbicort 160-4.5 Mcg Inhaler] Losartan Potassium 100 mg PO HS 04/12/21 04/12/21 History Allergies Allergy/AdvReac Type Severity Reaction Status Date / Time codeine AdvReac Nausea & Verified 04/12/21 21:23 Vomiting Physical Exam Vitals: Vital Signs Temp Pulse Resp BP Pulse Ox 04/13/21 07:00 54 L 16 131/56 99 04/13/21 06:00 54 L 15 95 04/13/21 05:00 68 24 144/73 94 L 04/13/21 04:00 97.8 F 72 25 H 122/61 90 L 04/13/21 03:00 66 14 164/68 93 L 04/13/21 02:00 67 26 H 179/86 96 04/13/21 01:35 97.7 F 72 25 H 95 04/13/21 01:00 67 18 143/61 95 04/13/21 00:45 67 18 144/71 96 04/13/21 00:15 64 18 152/54 97 04/13/21 00:00 66 18 147/61 95 04/12/21 23:45 18 142/50 04/12/21 23:32 66 18 142/56 95 04/12/21 23:00 66 18 143/88 97 04/12/21 22:45 64 18 158/72 96 04/12/21 22:15 71 18 157/66 98 04/12/21 22:00 78 18 97 04/12/21 21:45 74 18 156/64 97 04/12/21 21:30 65 18 157/68 96 04/12/21 21:15 65 18 165/69 97 04/12/21 21:00 67 18 166/71 96 04/12/21 20:55 63 16 116/64 95 04/12/21 20:45 18 140/66 97 04/12/21 20:30 18 192/88 95 04/12/21 20:15 58 L 18 96 04/12/21 20:00 64 18 179/78 98 04/12/21 19:45 68 18 167/73 98 04/12/21 19:39 97.9 F 58 L 18 143/74 97 04/12/21 19:36 97.9 F 61 18 125/79 98 Intake and Output 04/12/21 04/13/21 04/13/21 22:59 06:59 14:59 Intake Total 34.583 33.333 Output Total 300 Balance 34.583 -266.667 Intake: Intake, IV Titration 34.583 33.333 Amount niCARdipine 20 mg In 34.583 33.333 Sodium Chloride 0.9% 192 ml @ 5 MG/HR 50 mls/hr IV .Q4H [facility] Rx#:[id number] Output: Urine 300 Other: Voiding Method Indwelling Catheter # Voids 65 50 Weight 68.039 kg 68.039 kg GENERAL EXAM: Alert, very pleasant, 71-year-old white female, on 2 L of oxygen and pulse ox of 99%, comfortable in no apparent distress. Patient is oriented to person and place, disoriented to time HEAD: Normocephalic/atraumatic. EYES: Normal reaction of pupils, equal size. Conjunctiva pink, sclera white. NOSE: Clear with pink turbinates. THROAT: No erythema or exudates. NECK: No masses, no JVD, no thyroid enlargement, no adenopathy. CHEST: No chest wall deformity. Symmetrical expansion. LUNGS: Equal air entry with no crackles, wheeze, rhonchi or dullness. CVS: Regular rate and rhythm, normal S1 and S2, no gallops, no murmurs, no rubs ABDOMEN: Soft, nontender. No hepatosplenomegaly, normal bowel sounds, no guarding or rigidity. EXTREMITIES: No clubbing, no edema, no cyanosis, 2+ pulses and upper and lower extremities. MUSCULOSKELETAL: Muscle strength and tone normal. SPINE: No scoliosis or deformity SKIN: No rashes CENTRAL NERVOUS SYSTEM: Alert and oriented -2. No focal deficits, tone is normal in all 4 extremities. PSYCHIATRIC: Alert and oriented -2. Appropriate affect. Intact judgment and insight. Results - Laboratory Findings CBC and BMP: 04/13/21 04:45 04/13/21 04:45 PT/INR, D-dimer PT 10.0 sec (9.0-12.0) 04/12/21 19:47 INR 0.9 (<1.2) 04/12/21 19:47 Abnormal lab findings: Abnormal Labs 04/12/21 04/12/21 04/12/21 19:35 19:47 19:47 APTT 21.5 L BUN 20 H Glucose 161 H POC Glucose (mg/dL) 138 H Total Protein 6.1 L Albumin 3.4 L HDL Cholesterol Urine Appearance Urine Protein Urine Blood Ur Leukocyte Esterase Urine RBC Urine WBC Urine Mucus 04/12/21 04/13/21 04/13/21 19:47 01:14 01:35 APTT BUN Glucose POC Glucose (mg/dL) 128 H 121 H Total Protein Albumin HDL Cholesterol Urine Appearance Cloudy H Urine Protein 2+ H Urine Blood Small H Ur Leukocyte Esterase Moderate H Urine RBC 10 H Urine WBC 8 H Urine Mucus Rare H 04/13/21 04:45 APTT BUN Glucose 134 H POC Glucose (mg/dL) Total Protein 6.0 L Albumin 3.3 L HDL Cholesterol 34.0 L Urine Appearance Urine Protein Urine Blood Ur Leukocyte Esterase Urine RBC Urine WBC Urine Mucus - Diagnostic Findings Chest x-ray: report reviewed, image reviewed Additional studies: Brain CT, CT angiography of the brain and neck, EKG, chest x-ray, repeat brain CT reviewed Assessment and Plan Plan: Assessment: #1. Acute ischemic stroke status post TPA, patient presented with symptoms of aphasia, left leg weakness, and altered mental status. Currently confusion and aphasia have improved #2. Hypertension #3. Hyperlipidemia #4. History of coronary artery disease status post stenting and previous coronary artery bypass grafting in 2017 #5. History of COPD #6. 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 Diabetes mellitus type 2 #8. Chronic hypoxic respiratory failure on home oxygen Plan: Patient's neurological symptoms have improved since admission and post TPA Speech and confusion improved Neurology is following Hemodynamic patient is stable, vital signs are stable Echocardiogram, MRI and carotid Doppler pending Continue close neurological monitoring in the ICU Restart high-dose Lipitor aspirin and Plavix per neurology recommendations Repeat brain CT results have been reviewed Close glucose monitoring continue NovoLog per sliding scale Obtain speech evaluation We will follow I performed a history & physical examination of the patient and discussed their management with my nurse practitioner, Raine Arriaga. I reviewed the nurse practitioner's note and agree with the documented findings and plan of care. Lung sounds are positive for diminished breath sounds throughout the lung robert. The findings and the impression was discussed with the patient. I attest to the documentation by the nurse practitioner. Time with Patient: Greater than 30
[2021-04-13] MEDS: FAMOTIDINE 20 MG/2 ML VIAL IV SCH ×2 (10:43→21:34)
--- NOTE | 2021-04-13 10:47 | US ---
EXAMINATION TYPE: US carotid duplex BILAT DATE OF EXAM: 04/13/2021 COMPARISON: US 11/26/16 CLINICAL HISTORY: CVA. EXAM MEASUREMENTS: RIGHT: Peak Systolic Velocity (PSV) cm/sec ----- Right CCA: 72.9 ----- Right ICA: 86.5 ----- Right ECA: 116.1 ICA/CCA ratio: 1.2 RIGHT: End Diastole cm/sec ----- Right CCA: 6.4 ----- Right ICA: 11.6 ----- Right ECA: 7.7 LEFT: Peak Systolic Velocity (PSV) cm/sec ----- Left CCA: 81.4 ----- Left ICA: 98.4 ----- Left ECA: 112.2 ICA/CCA ratio: 1.2 LEFT: End Diastole cm/sec ----- Left CCA: 10.2 ----- Left ICA: 9.5 ----- Left ECA: 0.0 VERTEBRALS (direction of flow): Right Vertebral: Antegrade Left Vertebral: Antegrade Rhythm: Arrhythmia Large amounts of calcified plaque R>L IMPRESSION: 1. Extensive bilateral calcified plaque with no definite significant hemodynamic stenosis. NASCET criteria was used in interpretation of this exam? Criteria for Assigning % of Stenosis / Diameter reduction (Estimation based on the indirect measurements of the internal carotid artery velocities (ICA PSV). 1. Normal (no stenosis)=ICA PSV < 125 cm/s: ratio < 2.0: ICA EDV<40 cm/s. 2. Less than 50% stenosis=ICA PSV < 125 cm/s: ratio < 2.0: ICA EDV<40 cm/s. 3. 50 to 69% stenosis=ICA PSV of 125 to 230 cm/s: ration 2.0 ? 4.0: ICA EDV 40-100 cm/s. 4. Greater than 70% stenosis to near occlusion= ICA PSV > 230 cm/s: ratio > 4.0: ICA EDV > 100 cm/s. 5. Near occlusion= ICA PSV velocities may be low or undetectable: variable ratio and ICA EDV. 6. Total occlusion=unable to detect flow.
--- NOTE | 2021-04-13 11:34 | ECHOF ---
Referral Reason:Rule out heart disease MEASUREMENTS -------- HEIGHT: 165.1 cm WEIGHT: 68.0 kg BP: 131/56 RVIDd: 4.7 cm (< 3.3) IVSd: 1.6 cm (0.6 - 1.1) LVIDd: 5.5 cm (3.9 - 5.3) LVPWd: 1.4 cm (0.6 - 1.1) IVSs: 1.9 cm LVIDs: 3.6 cm LVPWs: 1.2 cm LAESV Index (A-L): 48.28 ml/m MV E Syed: 1.50 m/s MV DecT: 350 ms MV A Syed: 1.43 m/s MV E/A Ratio: 1.05 RAP: 5.00 mmHg RVSP: 54.21 mmHg FINDINGS -------- Sinus rhythm. This was a technically difficult study with suboptimal views. The left ventricular size is normal. There is moderate concentric left ventricular hypertrophy. O verall left ventricular systolic function is low-normal with, an EF between 50 - 55 %. Septal wall motion is delayed and consistent with prior cardiac surgery. Basal lateral LV wall motion is hypoki netic. The right ventricle is moderately enlarged. LA is severely dilated >40 ml/m2 The right atrium was not well visualized. 5.0mg of Lumason was utilized for enhancement of images Interatrial and interventricular septum intact. There is no evidence of aortic regurgitation. There is no evidence of aortic stenosis. Severe mitral annular calcification present. Mild mitral regurgitation is present. [id number] te mitral stenosis , with a MVA of 2.3cm (by PHT) Moderate to severe tricuspid regurgitation present. There is moderate to severe pulmonary hypertens ion. The right ventricular systolic pressure, as measured by Doppler, is 54.21mmHg. The pulmonic valve was not well visualized. The aortic root size is normal. IVC Not well visulized. There is no pericardial effusion. CONCLUSIONS -------- 1. The left ventricular size is normal. 2. There is moderate concentric left ventricular hypertrophy. 3. Overall left ventricular systolic function is low-normal with, an EF between 50 - 55 %. 4. Basal lateral LV wall motion is hypokinetic. 5. The right ventricle is moderately enlarged. 6. LA is severely dilated >40 ml/m2 7. Severe mitral annular calcification present. 8. Mild mitral regurgitation is present. 9. [id number] mitral stenosis. 10. , with a MVA of 2.3cm (by PHT) 11. Moderate to severe tricuspid regurgitation present. 12. There is moderate to severe pulmonary hypertension. 13. The right ventricular systolic pressure, as measured by Doppler, is 54.21mmHg. PHYSIOTHERAPIST'S ASSISTANT: Odalys Miller RDCS
--- NOTE | 2021-04-13 11:39 | P.GSCN ---
History of Present Illness Consult date: 04/13/21 Reason for Consult: CVA, right sided ICA stenosis Requesting physician: Bernard E Sheet (\) History of present illness: This a 71-year-old female who was brought into the emergency department yesterday evening by EMS for altered mental status and reported left lower extremity weakness. The patient has a past medical history including coronary artery disease status post stents, myocardial infarction, CABG, heart failure, hypertension and diabetes mellitus. Apparently yesterday the patient seemed confused and had been mumbling her speech and having some aphasia. The patient states she does not recall any events from yesterday. Most of this history is obtained from the chart as the patient is still having some confusion. According to neurology's note the patient daughter had said she was not talking right and had mumbled speech also noted to have right leg weakness. Apparently when she was evaluated in the emergency department and the patient had an NIH score of 7 per the emergency department team and there was initiation of TPA. Emergency department reported the patient having aphasia, lower extremity drift, and correct month and age can't, and unable to see hand on command. The initial CT of the head reported cerebral atrophy. No acute intracranial abnormality. No change. CT angiography of the head and neck reported approximately 50% stenosis at the origin of the right internal carotid artery. There is 25% stenosis of the distal right common carotid artery. No evidence of any signifi cant stenosis of the left. No significant intracranial in angiographic abnormality. A repeat CT of the head was completed late yesterday evening again showing cerebral atrophy. No acute intracranial abnormality. No change. The patient is seen and examined at the bedside. She states she is in the hospital but unable to save which city or which hospital, she was unsure of year and thought it was 2021, she is oriented to self and her birthdate. This patient was able to answer questions and follow commands, her speech is fluent, she is denying any upper or lower extremity weakness. She is denying any visual changes or difficulty with swallowing. Has facial symmetry. He denies any shor tness of breath, chest pain, fevers, chills, abdominal pain, nausea or vomiting. Review of Systems Or tingling point review of systems was completed all pertinent positives and negatives as stated in the HPI. Past Medical History Past Medical History: Asthma, Coronary Artery Disease (CAD), Chest Pain / Angina, Heart Failure, COPD, Diabetes Mellitus, Hyperlipidemia, Hypertension, Myocardial Infarction ([place]), Respiratory Disorder, Syncope Additional Past Medical History / Comment(s): NEBULIZER AT HOME, broncitis, emphysema, type 2 dm Last Myocardial Infarction Date:: 2010 History of Any Multi-Drug Resistant Organisms: None Reported Past Surgical History: Cholecystectomy, Coronary Bypass/CABG, Heart Catheterization With Stent Additional Past Surgical History / Comment(s): 1st stent in 2010, 3 more stents placed -about 2014, open heart surgery 2016. Past Anesthesia/Blood Transfusion Reactions: No Reported Reaction Additional Past Anesthesia/Blood Transfusion Reaction / Comm: Claustrophobic Date of Last Stent Placement:: 2014 Past Psychological History: No Psychological Hx Reported Smoking Status: Former smoker Past Alcohol Use History: None Reported Additional Past Alcohol Use History / Comment(s): STARTED SMOKING AT AGE 16- WORKED UP TO 3 PPD, QUIT 2009 Past Drug Use History: None Reported - Past Family History Father Family Medical History: Myocardial Infarction ([place]) Additional Family Medical History / Comment(s): STENT, OPEN HEART SURGERY Mother Additional Family Medical History / Comment(s): DEPRESSION, mental illness Medications and Allergies Home Medications Medication Instructions Recorded Confirmed Type Aspirin 81 mg PO HS 12/17/14 04/12/21 History Metoprolol Succinate [Toprol XL] 50 mg PO HS 08/30/18 04/12/21 History Furosemide [Lasix] 20 mg PO HS 05/19/20 04/12/21 History Acetaminophen [Tylenol] 325 mg PO Q6H PRN 09/23/20 04/12/21 History Atorvastatin [Lipitor] 80 mg PO HS 09/23/20 04/12/21 History hydrOXYzine HCL [Atarax] 25 mg PO TID PRN 09/23/20 04/12/21 History Clopidogrel Bisulfate [Plavix] 75 mg PO HS 11/11/20 04/12/21 History Insulin Glargine,Hum.rec.anlog 44 unit SQ BID 11/11/20 04/12/21 History [Lantus Solostar] Insulin Lispro [humaLOG Kwikpen] 15 dose SQ AC-TID 11/11/20 04/12/21 History Hydrocortisone Cream 1 applic TOPICAL BID 02/07/21 04/12/21 History [Hydrocortisone 2.5% Cream] traMADol HCL [Ultram] 50 mg PO BID PRN 02/07/21 04/12/21 History Ipratropium-Albuterol Nebulize 3 ml INHALATION RT-QID PRN #0 ml 02/09/21 04/12/21 Rx [Duoneb 0.5 mg-3 mg/3 ml Soln] Budesonide-Formot 160-4.5 Mcg 2 puff INHALATION RT-BID 04/12/21 04/12/21 History [Symbicort 160-4.5 Mcg Inhaler] Losartan Potassium 100 mg PO HS 04/12/21 04/12/21 History Allergies Allergy/AdvReac Type Severity Reaction Status Date / Time codeine AdvReac Nausea & Verified 04/12/21 21:23 Vomiting Surgical - Exam Vital Signs Temp Pulse Resp BP Pulse Ox 97.9 F 61 18 125/79 98 04/12/21 19:36 04/12/21 19:36 04/12/21 19:36 04/12/21 19:36 04/12/21 19:36 General appearance: The patient is alert, orientedto self and place, ears in no acute distress. HET: Head is normocephalic and atraumatic. Pupils are equal and reactive. Neck: Supple without lymphadenopathy. Trachea midline. Heart: S1 S2. Regular rate and rhythm. Lungs: Her to auscultation. Abdomen: Soft, nontender, nondistended. Extremities: Normal skin color and turgor. No cyanosis, rash, ulceration, clubbing, or edema. Palpable radial and pedal pulses bilaterally Neurological: The patient is alert and oriented to self and place stating she is in a hospital, she is unaware of the hospital name or location. Patient has facial symmetry, tongue protrudes midline, speech is fluent and answers most questions appropriately, she is able to follow commands. She has minimal weakness in the left hand endband cutter hand/grasp 4/5 otherwise good strength and tone in bilateral upper extremities. Bilateral lower extremity with equal strength. Good tone. Results - Labs 04/13/21 04:45 04/13/21 04:45 Abnormal Lab Results - Last 24 Hours (Table) 04/12/21 04/12/21 04/12/21 Range/Units 19:35 19:47 19:47 APTT 21.5 L (22.0-30.0) sec BUN 20 H (7-17) mg/dL Glucose 161 H (74-99) mg/dL POC Glucose (mg/dL) 138 H (75-99) mg/dL Total Protein 6.1 L (6.3-8.2) g/dL Albumin 3.4 L (3.5-5.0) g/dL Urine Appearance (Clear) Urine Protein (Negative) Urine Blood (Negative) Ur Leukocyte Esterase (Negative) Urine RBC (0-5) /hpf Urine WBC (0-5) /hpf Urine Mucus (None) /hpf 04/12/21 04/13/21 04/13/21 Range/Units 19:47 01:14 01:35 APTT (22.0-30.0) sec BUN (7-17) mg/dL Glucose (74-99) mg/dL POC Glucose (mg/dL) 128 H 121 H (75-99) mg/dL Total Protein (6.3-8.2) g/dL Albumin (3.5-5.0) g/dL Urine Appearance Cloudy H (Clear) Urine Protein 2+ H (Negative) Urine Blood Small H (Negative) Ur Leukocyte Esterase Moderate H (Negative) Urine RBC 10 H (0-5) /hpf Urine WBC 8 H (0-5) /hpf Urine Mucus Rare H (None) /hpf 04/13/21 Range/Units 04:45 APTT (22.0-30.0) sec BUN (7-17) mg/dL Glucose 134 H (74-99) mg/dL POC Glucose (mg/dL) (75-99) mg/dL Total Protein 6.0 L (6.3-8.2) g/dL Albumin 3.3 L (3.5-5.0) g/dL Urine Appearance (Clear) Urine Protein (Negative) Urine Blood (Negative) Ur Leukocyte Esterase (Negative) Urine RBC (0-5) /hpf Urine WBC (0-5) /hpf Urine Mucus (None) /hpf Diabetes panel 04/12/21 04/13/21 Range/Units 19:47 04:45 Sodium 138 138 (137-145) mmol/L Potassium 4.2 4.1 (3.5-5.1) mmol/L Chloride 103 105 (98-107) mmol/L Carbon Dioxide 27 24 (22-30) mmol/L BUN 20 H 16 (7-17) mg/dL Creatinine 0.82 0.70 (0.52-1.04) mg/dL Glucose 161 H 134 H (74-99) mg/dL Calcium 8.8 9.2 (8.4-10.2) mg/dL AST 28 26 (14-36) U/L ALT 23 20 (4-34) U/L Alkaline Phosphatase 70 58 (38-126) U/L Total Protein 6.1 L 6.0 L (6.3-8.2) g/dL Albumin 3.4 L 3.3 L (3.5-5.0) g/dL Calcium panel 04/12/21 04/13/21 Range/Units 19:47 04:45 Calcium 8.8 9.2 (8.4-10.2) mg/dL Albumin 3.4 L 3.3 L (3.5-5.0) g/dL Pituitary panel 04/12/21 04/13/21 Range/Units 19:47 04:45 Sodium 138 138 (137-145) mmol/L Potassium 4.2 4.1 (3.5-5.1) mmol/L Chloride 103 105 (98-107) mmol/L Carbon Dioxide 27 24 (22-30) mmol/L BUN 20 H 16 (7-17) mg/dL Creatinine 0.82 0.70 (0.52-1.04) mg/dL Glucose 161 H 134 H (74-99) mg/dL Calcium 8.8 9.2 (8.4-10.2) mg/dL Adrenal panel 04/12/21 04/13/21 Range/Units 19:47 04:45 Sodium 138 138 (137-145) mmol/L Potassium 4.2 4.1 (3.5-5.1) mmol/L Chloride 103 105 (98-107) mmol/L Carbon Dioxide 27 24 (22-30) mmol/L BUN 20 H 16 (7-17) mg/dL Creatinine 0.82 0.70 (0.52-1.04) mg/dL Glucose 161 H 134 H (74-99) mg/dL Calcium 8.8 9.2 (8.4-10.2) mg/dL Total Bilirubin 0.5 0.8 (0.2-1.3) mg/dL AST 28 26 (14-36) U/L ALT 23 20 (4-34) U/L Alkaline Phosphatase 70 58 (38-126) U/L Total Protein 6.1 L 6.0 L (6.3-8.2) g/dL Albumin 3.4 L 3.3 L (3.5-5.0) g/dL - Imaging Comments: Carotid duplex: Right ICA PSV 86.5, ICA/CCA ratio 1.2, left ICA PSV 98.4, ICA/CCA ratio 1.2. Impression states extensive bilateral calcified plaque with no definite significant hemodynamic stenosis. CT angiogram head and neck: The proximal mid 50% stenosis origin of the right internal carotid artery. There is 25% stenosis of the distal right common carotid artery. No evidence of any significant stenosis on the left side. No significant intracranial angiographic abnormality. CT head: Cerebral atrophy. No acute intracranial abnormality. No change. Assessment and Plan Assessment: 1. Acute ischemic stroke status post TPA presenting with aphasia 2. Reported 50% stenosis in the origin of right internal carotid artery by CT angiogram. Carotid ultrasound showing no definite significant hemodynamic stenosis. 3. Altered mental status changes 4. History of coronary artery disease status post cardiac stents and CABG 5. Diabetes mellitus 6. Hypertension Plan: 1. Continue symptomatic and supportive care 2. Carotid ultrasound ordered and reviewed 3. CT a head and neck reviewed 4. Continue with recommendations from neurology 5. Continue statin, antiplatelet therapy per recommendations from neurology 6. There is no indication for any acute vascular surgical intervention at this time 7. Thank you for this consultation, further recommendations to follow The impression and plan of care has been dictated as directed. I performed a history and examination of this patient, discussed the same with the dictator. I agree with the dictator's note ,documented as a scribe. Any additional findings or plans will be noted.
[2021-04-13 12:33] LABS: T4, Free (Free Thyroxine) 1.14 ng/dL (0.78-2.19)
[2021-04-13 13:23] LABS: Glucose,Whole Blood 161 mg/dL (75-99)
--- NOTE | 2021-04-13 19:21 | MR ---
EXAMINATION TYPE: MR brain wo/w con DATE OF EXAM: 04/13/2021 COMPARISON: None HISTORY: Stroke. Post iv tpa. CONTRAST: Standard multiplanar, multisequence MRI departmental protocol utilizing 7 mL intravenous Gadavist renetta olinium contrast. There is cerebral cortical atrophy. There is no mass effect nor midline shift. There is no sign of intracranial hemorrhage. Diffusion lauren ges show no evidence of an acute infarct. Brainstem is intact. There is no evidence of posterior fossa mass. There is some mucosal thickening i n the ethmoid and frontal sinuses. There is minimal mucosal thickening in the maxillary sinuses. Ther e is mild thinning of the corpus callosum. There is some mild linear increased signal in the perivent ricular white matter on the T2 and FLAIR images. There is 5 mm focus of increased signal right housekeeping supervisor ior frontal lobe white matter. IMPRESSION: Cerebral atrophy. White matter signal changes around the lateral ventricles are nonspecific and could relate to microvascular ischemia or demyelinating disease. No evidence of cortical infarct. Sinusitis.
[2021-04-13 20:29] LABS: Glucose,Whole Blood 275 mg/dL (75-99)
[2021-04-13 21:26] LABS: Hemoglobin A1C 9.4 % (4.0-6.0)
[2021-04-13] MEDS: HEPARIN SODIUM,PORCINE/PF 5,000 UNIT/0.5 ML SYRINGE SQ SCH (21:34)
[2021-04-13] MEDS: ASPIRIN 81 MG PO SCH (21:34)
[2021-04-13] MEDS: TICAGRELOR 90 MG TAB PO SCH (21:35)
[2021-04-13] MEDS: ATORVASTATIN 80 MG TAB PO SCH (21:35)
[2021-04-13 23:33] LABS: Appearance,Urine Cloudy (Clear); Bacteria,Urine Rare /hpf; Bilirubin,Urine Negative (Negative); Blood,Urine Moderate (Negative); Color,Urine Yellow; Glucose,Urine (UA) Negative (Negative); Ketones,Urine Negative (Negative); Leukocyte Esterase,Urine Small (Negative); Mucus,Urine Rare /hpf; Nitrite,Urine Negative (Negative); PH, Urine 5.5 (5.0-8.0); Protein,Urine 2+ (Negative); RBC,Urine 32 /hpf (0-5); Specific Gravity,Urine 1.032 (1.001-1.035); Squamous Epithelial Cell,Urine <1 /hpf (0-4); Urobilinogen,Urine <2.0 mg/dL (<2.0); WBC,Urine 7 /hpf (0-5)
[2021-04-14 00:13] LABS: Glucose,Whole Blood 288 mg/dL (75-99)
[2021-04-14] MEDS: INSULIN ASPART (NovoLOG) 100 UNIT/ML VIAL SQ SCH ×5 (00:24→20:55)
[2021-04-14] MEDS: niCARdipine 20 MG in SODIUM CHLORIDE 0.9% 192 ML IV SCH ×2 (00:24→05:23)
[2021-04-14 05:29] LABS: Basophils # (A) 0.1 k/uL (0-0.2); Basophils % (A) 1 %; Eosinophils # (A) 0.5 k/uL (0-0.7); Eosinophils % (A) 5 %; HCT 35.7 % (34.0-46.0); HGB 12.3 gm/dL (11.4-16.0); Lymphocytes # (A) 1.7 k/uL (1.0-4.8); Lymphocytes % (A) 20 %; MCHC 34.4 g/dL (31.0-37.0); MCV 98.7 fL (80.0-100.0); Mean Platelet Volume 6.8; Monocytes # (A) 0.7 k/uL (0-1.0); Monocytes % (A) 8 %; Neutrophils # (A) 5.4 k/uL (1.3-7.7); Neutrophils % (A) 64 %; Platelet Count 277 k/uL (150-450); RBC 3.62 m/uL (3.80-5.40); RDW 13.7 % (11.5-15.5); WBC 8.6 k/uL (3.8-10.6)
[2021-04-14 06:01] LABS: Calcium 8.7 mg/dL (8.4-10.2); Potassium 4.4 mmol/L (3.5-5.1)
[2021-04-14 06:13] LABS: Glucose,Whole Blood 192 mg/dL (75-99)
[2021-04-14] MEDS: METOPROLOL TARTRATE 25 MG TAB PO SCH ×2 (10:24→20:55)
[2021-04-14] MEDS: ASPIRIN 81 MG PO SCH (10:24)
[2021-04-14] MEDS: TICAGRELOR 90 MG TAB PO SCH ×2 (10:24→20:55)
[2021-04-14] MEDS: HEPARIN SODIUM,PORCINE/PF 5,000 UNIT/0.5 ML SYRINGE SQ SCH ×2 (10:24→20:55)
[2021-04-14] MEDS: INSULIN DETEMIR (LEVEMIR) 100 UNIT/ML SYR SQ SCH ×2 (10:58→20:56)
[2021-04-14] MEDS ORDERED: hydrALAZINE HCL 20 MG/ML 1 ML VIAL IVP STA (12:09)
--- NOTE | 2021-04-14 12:17 | P.PN ---
Subjective Progress Note Date: 04/14/21 The patient is seen at bedside and she stated she is feeling better today compared to initial presentation. Per the nurse she felt she continues to be aphasic and mixing up her words. Otherwise no new weakness and she has improvement in strength in lower extremity. Objective - Vital Signs Vital signs: Vital Signs Temp 98.1 F 04/14/21 08:00 Pulse 71 04/14/21 11:00 Resp 18 04/14/21 11:00 BP 146/106 04/14/21 11:00 Pulse Ox 95 04/14/21 11:00 Intake & Output 04/13/21 04/14/21 04/14/21 18:59 06:59 18:59 Intake Total 900 150 300 Output Total 700 835 90 Balance 200 -685 210 Intake: Oral 900 150 300 Output: Urine 700 835 90 Other: Voiding Method Indwelling Catheter Indwelling Catheter Indwelling Catheter # Voids 50 # Bowel Movements 1 1 - Exam GENERAL: The patient is lying in bed and is not in acute distress. NEUROLOGICAL: Higher mental function: The patient is awake, alert, oriented to self. She stated she was in the hospital ( But stated she was in [facility]). She stated the year is 1979 and the month is January. For objects upon showing her a cup she said glass. She was able to name correctly watch and glassess. She is following simple commands. 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 No neglect. Cranial nerves: The pupils are round, equal and reactive to light and accommodation. Visual robert are full to confrontation throughout. Extraocular movement is intact no nystagmus is noted. Facial sensation is normal to touch throughout. The facial strength is normal throughout. Hearing is moderately decreased bilaterally to hand rub. Tongue is midline and moved [id number] without any difficulty. No dysarthria is noted. Shoulder shrug is normal bilaterally. Motor: Gait is deferred. The strength is 5/5 in upper and lower seems 5- bilaterally. Normal tone and bulk. Cerebellum: Normal finger to nose bilaterally. Sensation: Sensation is normal to touch throughout. Reflexes (right/left): 2+ throughout uppers while lowers are 1+ bilaterally.. Plantars are downgoing bilaterally. WORK-UP: CT of the head is reported as cerebral atrophy. No acute intracranial abnormality. No change. CT angiography of the head and neck was reported as there is approximate 50% stenosis origin of the right internal carotid artery. There is 25% stenosis of the distal right common carotid artery. No evidence of any significant stenosis of the left. No significant intercranial and angiographic abnormality. MR the brain (post 24 hours tpa) is reported as cerebral atrophy. White matter changes change around the lateral ventricle are nonspecific and could relate to microvascular ischemic Disease. No evidence of cortical infarct. Riding duplex was reported as extensive bilateral calcified plaque with no definite of significant hemodynamic stenosis. 2-D echo was reported as moderate concentric left ventricular hypertrophy. Ejection fraction of 50-55%. Basilar lateral left ventricle wall motion is hypokinetic. Left atrium is severely dilated. Hemoglobin A1c is 9.4 which her diabetes is uncontrolled. TSH is 0.35 which is considered low but the free T4 is 1.14 which is considered normal. Lipid panel is LDL 62, HDL of 34, cholesterol of 112, triglyceride of 77. - Labs CBC & Chem 7: 04/14/21 04:25 04/14/21 04:25 Labs: Abnormal Lab Results - Last 24 Hours (Table) 04/12/21 04/13/21 04/13/21 Range/Units 19:47 13:22 20:27 RBC (3.80-5.40) m/uL Sodium (137-145) mmol/L BUN (7-17) mg/dL Glucose (74-99) mg/dL POC Glucose (mg/dL) 161 H 275 H (75-99) mg/dL Hemoglobin A1c 9.4 H (4.0-6.0) % Urine Appearance (Clear) Urine Protein (Negative) Urine Blood (Negative) Ur Leukocyte Esterase (Negative) Urine RBC (0-5) /hpf Urine WBC (0-5) /hpf Urine Bacteria (None) /hpf Urine Mucus (None) /hpf 04/13/21 04/14/21 04/14/21 Range/Units 21:30 00:06 04:25 RBC 3.62 L (3.80-5.40) m/uL Sodium (137-145) mmol/L BUN (7-17) mg/dL Glucose (74-99) mg/dL POC Glucose (mg/dL) 288 H (75-99) mg/dL Hemoglobin A1c (4.0-6.0) % Urine Appearance Cloudy H (Clear) Urine Protein 2+ H (Negative) Urine Blood Moderate H (Negative) Ur Leukocyte Esterase Small H (Negative) Urine RBC 32 H (0-5) /hpf Urine WBC 7 H (0-5) /hpf Urine Bacteria Rare H (None) /hpf Urine Mucus Rare H (None) /hpf 04/14/21 04/14/21 Range/Units 04:25 06:11 RBC (3.80-5.40) m/uL Sodium 134 L (137-145) mmol/L BUN 19 H (7-17) mg/dL Glucose 195 H (74-99) mg/dL POC Glucose (mg/dL) 192 H (75-99) mg/dL Hemoglobin A1c (4.0-6.0) % Urine Appearance (Clear) Urine Protein (Negative) Urine Blood (Negative) Ur Leukocyte Esterase (Negative) Urine RBC (0-5) /hpf Urine WBC (0-5) /hpf Urine Bacteria (None) /hpf Urine Mucus (None) /hpf Microbiology - Last 24 Hours (Table) 04/12/21 21:00 Blood Culture - Preliminary Blood No Growth after 24 hours 04/12/21 20:40 Blood Culture - Preliminary Blood No Growth after 24 hours Assessment and Plan Assessment: Acute ischemic stroke status post TPA (NIH 7. Aphasia, leg weakness (per ed left but on my examination bilateral), commands)--has some broca aphasia but no focal weakness noted on todays examination. Chronic lower back pain with radiation to the right leg seems like radiculopathy (but per patient no worsening of her lower back pain) Diabetes mellitus and seems uncontrolled (HbA1c 9.4) History of Hypertension History of coronary artery disease status post stent History of myocardia infarction s/p CABG Heart failure Former nicotine use (stopped 11 years ago) Plan: * I restarted the patient on home dose of ASA 81mg. Also started the patient on Brilinta 90mg 1 tab bid (failed Plavix because of her stroke). Continue Lipitor 80mg qhs for secondary stroke prophylaxis. LDL goal in stroke <70. * PT, OT and [employer]EL[employer] MK1 OPERATOR are consulted * Q4 hours Neuro checks . * On continuous cardiac monitoring. * Blood pressure goal is 130-150 systolic and will defer management to the primary team/ICU team. * Recommend patient to be discharged with event monitor. * We'll defer the rest of the medical management to the primary team and ICU team. For DVT prophylaxis: started on subq heparin. The plan is discussed with ICU nurse. Dirk Maciel MD Neuro-Hospitalist. Time with Patient: Less than 30
[2021-04-14 12:20] LABS: Glucose,Whole Blood 277 mg/dL (75-99)
[2021-04-14] MEDS: LOSARTAN 50 MG TAB PO SCH (12:22)
[2021-04-14] MEDS: FAMOTIDINE 20 MG TAB PO SCH ×2 (12:24→20:55)
--- NOTE | 2021-04-14 13:30 | P.PN ---
Subjective Progress Note Date: 04/14/21 Principal diagnosis: CVA, carotid stenosis Was seen and examined sitting up at the bedside. No acute changes through the night. Patient is actually downgraded to medical floor. Patient denies any focal deficits, no weakness in upper or lower extremities. Patient still has so me mild confusion and states the year as 192. However she does know that she is an [facility]. Nurse is reporting that she still having some aphasia and mixing up her words that time. Patient underwent MRI of the brain yesterday that showed cerebral atrophy. White matter signal changes around the lateral ventricles are nonspecific and could relate to microvascular ischemia or demyelinating disease. No evidence of cortical infarct. Neurology is following the patient and has started the patient on aspirin and brought into this patient failed Plavix. Objective - Vital Signs Vital signs: Vital Signs Temp 97.7 F 04/14/21 00:00 Pulse 66 04/14/21 07:00 Resp 26 H 04/14/21 07:00 BP 116/51 04/14/21 07:00 Pulse Ox 96 04/14/21 07:00 Intake & Output 04/13/21 04/14/21 04/14/21 18:59 06:59 18:59 Intake Total 900 150 Output Total 700 835 40 Balance 200 -685 -40 Intake: Oral 900 150 Output: Urine 700 835 40 Other: Voiding Method Indwelling Catheter Indwelling Catheter # Voids 50 # Bowel Movements 1 - Exam General appearance: The patient is alert, oriented, in no acute distress. HET: Head is normocephalic and atraumatic. Pupils are equal and reactive. Neck: Supple without lymphadenopathy. Trachea midline. Heart: S1 S2. Regular rate and rhythm. Lungs: Clear to auscultation. Abdomen: Soft, nontender, nondistended. Extremities: Normal skin color and turgor. No cyanosis, rash, ulceration, clubbing, or edema. Bilateral palpable radial and dorsalis pedis pulses.. Neurological: Patient is alert and oriented to self and place. She is answering questions appropriately. She is following commands. Bilateral grasp equal, strength upper and lower extremities equal. - Labs CBC & Chem 7: 04/14/21 04:25 04/14/21 04:25 Labs: Abnormal Lab Results - Last 24 Hours (Table) 04/12/21 04/13/21 04/13/21 Range/Units 19:47 04:45 13:22 RBC (3.80-5.40) m/uL Sodium (137-145) mmol/L BUN (7-17) mg/dL Glucose (74-99) mg/dL POC Glucose (mg/dL) 161 H (75-99) mg/dL Hemoglobin A1c 9.4 H (4.0-6.0) % TSH 0.235 L (0.465-4.680) mIU/L Urine Appearance (Clear) Urine Protein (Negative) Urine Blood (Negative) Ur Leukocyte Esterase (Negative) Urine RBC (0-5) /hpf Urine WBC (0-5) /hpf Urine Bacteria (None) /hpf Urine Mucus (None) /hpf 04/13/21 04/13/21 04/14/21 Range/Units 20:27 21:30 00:06 RBC (3.80-5.40) m/uL Sodium (137-145) mmol/L BUN (7-17) mg/dL Glucose (74-99) mg/dL POC Glucose (mg/dL) 275 H 288 H (75-99) mg/dL Hemoglobin A1c (4.0-6.0) % TSH (0.465-4.680) mIU/L Urine Appearance Cloudy H (Clear) Urine Protein 2+ H (Negative) Urine Blood Moderate H (Negative) Ur Leukocyte Esterase Small H (Negative) Urine RBC 32 H (0-5) /hpf Urine WBC 7 H (0-5) /hpf Urine Bacteria Rare H (None) /hpf Urine Mucus Rare H (None) /hpf 04/14/21 04/14/21 04/14/21 Range/Units 04:25 04:25 06:11 RBC 3.62 L (3.80-5.40) m/uL Sodium 134 L (137-145) mmol/L BUN 19 H (7-17) mg/dL Glucose 195 H (74-99) mg/dL POC Glucose (mg/dL) 192 H (75-99) mg/dL Hemoglobin A1c (4.0-6.0) % TSH (0.465-4.680) mIU/L Urine Appearance (Clear) Urine Protein (Negative) Urine Blood (Negative) Ur Leukocyte Esterase (Negative) Urine RBC (0-5) /hpf Urine WBC (0-5) /hpf Urine Bacteria (None) /hpf Urine Mucus (None) /hpf Microbiology - Last 24 Hours (Table) 04/12/21 21:00 Blood Culture - Preliminary Blood No Growth after 24 hours 04/12/21 20:40 Blood Culture - Preliminary Blood No Growth after 24 hours Assessment and Plan Assessment: 1. Acute ischemic stroke status post TPA presenting with aphasia 2. Reported 50% stenosis in the origin of right internal carotid artery by CT angiogram. Carotid ultrasound showing no definite significant hemodynamic stenosis. 3. Altered mental status changes 4. History of coronary artery disease status post cardiac stents and CABG 5. Diabetes mellitus 6. Hypertension 7. Former smoker Plan: 1. Continue symptomatic and supportive care 2. Carotid ultrasound ordered and reviewed 3. CT a head and neck reviewed 4. Continue with recommendations from neurology 5. Continue statin, agree with Brilinta and aspirin per recommendations from neurology 6. There is no indication for any acute vascular surgical intervention at this time 7. Thank you for this consultation, further recommendations to follow The impression and plan of care has been dictated as directed. Dr. Padilla I performed a history and examination of this patient, discussed the same with the dictator. I agree with the dictator's note ,documented as a scribe. Any additional findings or plans will be noted.
[2021-04-14 14:09] LABS: Amorphous Sediment,Urine Rare /hpf; Appearance,Urine Cloudy (Clear); Bilirubin,Urine Negative (Negative); Blood,Urine Large (Negative); Color,Urine Yellow; Glucose,Urine (UA) 4+ (Negative); Hyaline Casts,Urine 7 /lpf (0-2); Ketones,Urine Trace (Negative); Leukocyte Esterase,Urine Negative (Negative); Mucus,Urine Rare /hpf; Nitrite,Urine Negative (Negative); PH, Urine 5.5 (5.0-8.0); Protein,Urine 2+ (Negative); RBC,Urine 159 /hpf (0-5); Specific Gravity,Urine 1.017 (1.001-1.035); Urobilinogen,Urine <2.0 mg/dL (<2.0); WBC,Urine 7 /hpf (0-5)
--- NOTE | 2021-04-14 14:23 | P.PN ---
Subjective This is a pleasant 71 this old female with past medical history of asthma/COPD, heart failure, coronary artery disease status post CABG, hypertension, hyperlipidemia, diabetes mellitus. She is a patient of Dr. Zelaya Patient could not provide information so it was obtained from staff, medical records. Patient symptoms started 7 PM last night with acute confusion and weakness in both legs, patient felt to have left sided weakness. And concern for expressive aphasia. Others some reports of transient improvement back to normal for short time on admission before her symptoms back again. Patient was found to be a candidate and after obtaining consent from daughter it was administered last night. Blood pressure controlled with Cardizem drip. And repeat CAT scan showed no intracranial hemorrhage. She was admitted to the intensive care unit. This morning patient is fully awake and in appropriate however she is confused to time, place and person. She only knows she is in the hospital but culture which Hospital at's. Is any specific symptoms. The last thing she remembers that she went to the bathroom. She denies previous history of stroke or TIA before. No chest pain or dyspnea. No abdominal complaint. No urinary complaints like no dysuria or change in frequency or urgency this morning she has mild weakness on the left leg and left arm compared to the right side. And her face deviated to the left side Patient presents because of acute or sent off, fusion and inability to talk or ambulate. Patient suspected to have expressive aphasia up on admission Dawit looks stable, she is mildly tachypneic with a breathing rate 15-24. Afebrile. She is saturating 90-95% on 2 L oxygen nasal cannula. CBC is unremarkable . INR is normal at 0.9. BMP and liver enzymes are unremarkable as well. Urinalysis is suspicious for infection. Urine drug screen is negative. CT of the brain: No acute abnormality CTA of the brain showing 50% stenosis of the right internal carotid artery and there is 25% stenosis of the distal right common carotid artery. No evidence of significant stenosis on the left. Repeat CAT scan of the brain this morning showing still no acute intracranial abnormality with no change. Chest x-ray showing some congestive heart failure with increased congestion. Echocardiogram from 04/2020: Ejection fraction 55-60% with moderate left ventricular hypertrophy. With mild to moderate mitral stenosis The emergency room patient received TPA. Also Keppra and Ativan 1 for suspected seizure. Pulmonary/critical care team and neurology were consulted 04/14/2021 Patient today is more confused, she is angry and pulling lines and tubes, that has to be placed at bedside. No worsening weakness on the left leg or left arm. More facial deviation. She is hemodynamically stable. CBC and BMP is unremarkable. Urinalysis showing evidence of UTI. Ceftriaxone was restarted. Patient is kept on aspirin 81 mg in the brillinta 90 mg bid Brain MRI showing cerebral atrophy no evidence of cortical infarct. Echocardiogram showing ejection fraction of 50-55% with moderate to severe tricuspid regurgitation and pulmonary hypertension with [id number] mitral stenosis. Carotid duplex is negative for stenosis. Hemoglobin A1c is elevated at 9.4% she was started on Levemir 22 units TSH is low at 0.2 but normal free T4 at 1.1. Speech evaluation recommended chapped diet. Physical therapy recommended home care versus subacute rehab. bridge maintenance worker consulted Review of systems CONSTITUTIONAL: No fever, no malaise, no fatigue. HEENT: No recent visual problems or hearing problems. Denied any sore throat. CARDIOVASCULAR: No orthopnea, PND, no palpitations, no syncope. PULMONARY: No shortness of breath, no cough, no hemoptysis. GASTROINTESTINAL: No diarrhea, no nausea, no vomiting, no abdominal pain. Normoactive bowel sounds. -NEUROLOGICAL: Confused as above Active Medications Generic Name Dose Route Start Last Admin Trade Name Wongq PRN Reason Stop Dose Admin Aspirin 81 mg 04/13/21 21:30 04/14/21 10:24 Aspirin 81 Mg PO 81 mg DAILY KAREN Administration Atorvastatin Calcium 80 mg 04/13/21 21:00 04/13/21 21:35 Atorvastatin 80 Mg Tab PO 80 mg HS KAREN Administration Budesonide/Formoterol Fumarate 2 puff 04/14/21 20:00 Symbicort 160-4.5 Mcg Inhaler INHALATION RT-BID KAREN Famotidine 20 mg 04/14/21 12:00 04/14/21 12:24 Famotidine 20 Mg Tab PO 20 mg BID KAREN Administration Heparin Sodium (Porcine) 5,000 unit 04/13/21 21:30 04/14/21 10:24 Heparin Sodium,Porcine/Pf 5,000 Unit/0.5 Ml Syringe SQ 5,000 unit Q12HR KAREN Administration Ceftriaxone Sodium 1 gm/ 50 mls @ 100 mls/hr 04/14/21 14:00 Sodium Chloride IVPB Q24HR KAREN Insulin Aspart 0 unit 08/19/21 12:30 04/14/21 12:22 Insulin Aspart (Novolog) 100 Unit/Ml Vial SQ 4 unit ACHS KAREN Administration Protocol Insulin Detemir 22 unit 04/14/21 10:30 04/14/21 10:58 Insulin Detemir (Levemir) 100 Unit/Ml Syr SQ 22 unit BID KAREN Administration Losartan Potassium 100 mg 04/14/21 12:30 04/14/21 12:22 Losartan 50 Mg Tab PO 100 mg DAILY KAREN Administration Metoprolol Tartrate 25 mg 04/14/21 10:15 04/14/21 10:24 Metoprolol Tartrate 25 Mg Tab PO 25 mg BID KAREN Administration Miscellaneous Information 1 each 04/12/21 20:12 Alteplase Per Pharmacy Stroke 1 Each Misc MISCELLANE DIRECTED PRN Stroke Naloxone HCl 0.2 mg 04/12/21 21:24 Naloxone 0.4 Mg/Ml 1 Ml Vial IV Q2M PRN Opioid Reversal Ondansetron HCl 4 mg 04/12/21 22:15 04/13/21 09:06 Ondansetron 4 Mg/2 Ml Vial IVP 4 mg Q6HR PRN Administration Nausea And Vomiting Quetiapine Fumarate 25 mg 04/14/21 13:13 Quetiapine 25 Mg Tab PO BID PRN Agitation or Acute Anxiety Ticagrelor 90 mg 04/13/21 21:30 04/14/21 10:24 Ticagrelor 90 Mg Tab PO 90 mg BID KAREN Administration Objective - Vital Signs Vital signs: Vital Signs Temp 97.8 F 04/14/21 12:00 Pulse 66 04/14/21 13:15 Resp 18 04/14/21 11:00 BP 153/59 04/14/21 13:30 Pulse Ox 87 L 04/14/21 13:30 Intake & Output 04/13/21 04/14/21 04/14/21 18:59 06:59 18:59 Intake Total 900 150 300 Output Total 700 835 240 Balance 200 -685 60 Intake: Oral 900 150 300 Output: Urine 700 835 240 Other: Voiding Method Indwelling Catheter Indwelling Catheter Indwelling Catheter # Voids 50 # Bowel Movements 1 1 - Exam -GENERAL: The patient is confused, and agitated today. Well developed, well nour ished. HEENT: Pupils are round and equally reacting to light. EOMI. No scleral icterus. No conjunctival pallor. Normocephalic, atraumatic. No pharyngeal erythema. No thyromegaly. CARDIOVASCULAR: S1 and S2 present. No murmurs, rubs, or gallops. PULMONARY: Chest is clear to auscultation, no wheezing or crackles. ABDOMEN: Soft, nontender, nondistended, normoactive bowel sounds. No palpable organomegaly. MUSCULOSKELETAL: No joint swelling or deformity. EXTREMITIES: No cyanosis, clubbing, or pedal edema. -NEUROLOGICAL: Cranial nerves are grossly intact. Mild left hemiparesis in the left arm and leg SKIN: No rashes. No petechiae - Labs CBC & Chem 7: 04/14/21 04:25 04/14/21 04:25 Labs: Abnormal Lab Results - Last 24 Hours (Table) 04/12/21 04/13/21 04/13/21 Range/Units 19:47 20:27 21:30 RBC (3.80-5.40) m/uL Sodium (137-145) mmol/L BUN (7-17) mg/dL Glucose (74-99) mg/dL POC Glucose (mg/dL) 275 H (75-99) mg/dL Hemoglobin A1c 9.4 H (4.0-6.0) % Urine Appearance Cloudy H (Clear) Urine Protein 2+ H (Negative) Urine Glucose (UA) (Negative) Urine Ketones (Negative) Urine Blood Moderate H (Negative) Ur Leukocyte Esterase Small H (Negative) Urine RBC 32 H (0-5) /hpf Urine WBC 7 H (0-5) /hpf Amorphous Sediment (None) /hpf Urine Bacteria Rare H (None) /hpf Hyaline Casts (0-2) /lpf Urine Mucus Rare H (None) /hpf 04/14/21 04/14/21 04/14/21 Range/Units 00:06 04:25 04:25 RBC 3.62 L (3.80-5.40) m/uL Sodium 134 L (137-145) mmol/L BUN 19 H (7-17) mg/dL Glucose 195 H (74-99) mg/dL POC Glucose (mg/dL) 288 H (75-99) mg/dL Hemoglobin A1c (4.0-6.0) % Urine Appearance (Clear) Urine Protein (Negative) Urine Glucose (UA) (Negative) Urine Ketones (Negative) Urine Blood (Negative) Ur Leukocyte Esterase (Negative) Urine RBC (0-5) /hpf Urine WBC (0-5) /hpf Amorphous Sediment (None) /hpf Urine Bacteria (None) /hpf Hyaline Casts (0-2) /lpf Urine Mucus (None) /hpf 04/14/21 04/14/21 04/14/21 Range/Units 06:11 12:18 13:37 RBC (3.80-5.40) m/uL Sodium (137-145) mmol/L BUN (7-17) mg/dL Glucose (74-99) mg/dL POC Glucose (mg/dL) 192 H 277 H (75-99) mg/dL Hemoglobin A1c (4.0-6.0) % Urine Appearance Cloudy H (Clear) Urine Protein 2+ H (Negative) Urine Glucose (UA) 4+ H (Negative) Urine Ketones Trace H (Negative) Urine Blood Large H (Negative) Ur Leukocyte Esterase (Negative) Urine RBC 159 H (0-5) /hpf Urine WBC 7 H (0-5) /hpf Amorphous Sediment Rare H (None) /hpf Urine Bacteria (None) /hpf Hyaline Casts 7 H (0-2) /lpf Urine Mucus Rare H (None) /hpf Microbiology - Last 24 Hours (Table) 04/12/21 21:00 Blood Culture - Preliminary Blood No Growth after 24 hours 04/12/21 20:40 Blood Culture - Preliminary Blood No Growth after 24 hours Assessment and Plan Assessment: Acute stroke, with confusion, expressive aphasia and possible leg weakness. Status post TPA on 04/12. Seizure is less likely. Improved significantly still have mild left hemiparesis anticipated to the left. 50% stenosis of the origin of the right internal carotid artery. No need for surgical intervention Acute urinary tract infection Metabolic encephalopathy secondary to above Moderate to severe tricuspid regurgitation and pulmonary hypertension area and mild to moderate mitral stenosis Diabetes mellitus, with hyperglycemia. Uncontrolled on admission globin A1c 9.4% Hypertension Hyperlipidemia History of coronary artery disease status post CABG History of asthma/COPD, no acute exacerbation. Plan: This is a pleasant 71 years old female who presents because of stroke. Continue with ICU management. Pulmonary/critical care consult Neurology was consulted. Patient currently not on aspirin or brillinta Start ceftriaxone follow-up urine culture Deep sitter at bedside. bridge maintenance worker consult Labs and medication were reviewed.. Continue same treatment. Continue with symptomatic treatment. Resume home medication. Monitor lytes and vitals. DVT and GI prophylaxis. Further recommendations depends on the clinical course of the patient DVT prophylaxis: Subcutaneous heparin currently. GI Prophylaxis: Pepcid Prognosis is guarded
--- NOTE | 2021-04-14 14:46 | P.PN ---
Subjective Progress Note Date: 04/14/21 Principal diagnosis: Acute ischemic CVA status post TPA This is a 71-year-old white female patient with extensive medical history including COPD, hypertension, hyperlipidemia, previous history of myocardial infarction, coronary artery disease with previous stenting and bypass grafting in 2017, diabetes mellitus, former smoker, who presented to the emergency department on 04/12/2021 by EMS for evaluation of altered mental status, and aphasia. Patient states she laid down to take a nap yesterday in the afternoon, and she woke up 2 hours later and her daughter noticed that she was acutely confused, was difficult to understand, and patient was not able to follow basic commands. She also seemed to have left lower extremity weakness. MRSA alerted the EMS, and when the EMS arrived they noted that patient's symptoms completely resolved however the symptoms shortly came back and she was brought to the emergency department for further evaluation and treatment. Patient was found to be TPA candidate. CT imaging of the head without contrast revealed cerebral atrophy and no acute intracranial abnormality, patient's blood glucose was 161. Urine drug screen was negative, EKG showed no acute changes or signs of acute ischemia. Patient's chest x-ray revealed no acute cardiopulmonary process. Code stroke was alerted, TPA was recommended and administered. Neurology in [facility] also recommended 1 g of IV Keppra for possible anticipated seizure. CT angiography of the head and neck showed approximately 50% stenosis in the right ICA, 25% stenosis in the distal RCA, no evidence of any significant stenosis on the left side, no significant intracranial angiographic abnormality. Patient was then transferred to the intensive care unit for advanced neurological monitoring following TPA administration, follow-up brain CT without contrast on 04/12/2021 at 2300 showed no acute intracranial abnormality. This morning patient is seen in intensive care unit. She is awake and alert, oriented to person and place. She seems to be disoriented to time. She appears to be in no acute distress, she is generally weak, still has a residual left sided weakness, however her speech has dramatically improved, and seems to be speaking normally. She denies any respiratory difficulty, lung sounds reveal just a few basilar crackles at the right base, no wheezing, no cough, no chest pain, blood pressures 125/79, and she is in sinus mechanism with a rate of 61 BPM, she has been afebrile. She did require nicardipine infusion yesterday for elevated blood pressures which is currently discontinued. Systolic pressure is 120-140 and her diastolic in the 60s and 70s. Patient was able to sit up on the edge of the bed with assistance, she is generally weak, requiring extensive assistance with 2 people assist. This morning echocardiogram is pending, carotid Doppler has been completed, awaiting results of radiology report. MRI of the brain is pending for today, currently on 0.9 normal saline at 50 ML per hour, no other drips, we will restart her high-dose Lipitor 80 mg at bedtime, she is on Pepcid for GI prophylaxis, but sugar monitoring every 6 hours, her last blood sugar is 134 this morning. Morning's labs have been reviewed, showing a white count of 10.5, hemoglobin of 13, electrolytes and renal profile are within normal limits, troponin was negative 1, at less than 0.012, ammonia level was less than 9, LFTs were within normal limits, LDL was 62, HDL was 34, total cholesterol of 112, triglycerides is 77. Urinalysis showed cloudy urine, with 2+ protein, moderate loose, but no clear evidence of infection. On 04/14/2021 patient seen in follow-up in intensive care unit, she is awake and alert, oriented 3, her speech pattern seems to be back to baseline during our evaluation, however per nursing staff patient at times continues to be mixing up her words. No new weakness, and her strength in bilateral lower extremities is improving, and patient was able to get up out of bed basically unassisted on today's evaluation. She is oriented to person and place today. Denies any acute distress, no facial asymmetry noted on today's exam. Brain MRI was completed showing white matter signal changes around the lateral ventricles that are nonspecific and that could relate to microvascular ischemia. No evidence of cortical infarct. Carotid Doppler was completed showing extensive bilateral calcified plaque without definite significant hemodynamic stenosis. Echocardiogram showed mild concentric LVH, and EF of 50-55%. Other to severe pulmonary hypertension with a PA pressure of 54.2 mmHg, moderate to severe tricuspid regurgitation. Mild mitral regurg. Patient has been noted to be very restless, and confused at times. Wall catheter has been discontinued, urine was noted to be quite turbid in appearance, urinalysis was sent, however in view of increased confusion and quite turbid appearance of the urine patient was empirically started on Rocephin. Urine culture is pending, patient is status post TPA, she was started on aspirin and [place] time last night at 2100. Neurology is closely following. She was also noted to have elevated blood pressures systolic in the 190, metoprolol 25 mg twice daily was started, in addition to losartan home dose 100 mg once daily. Patient was given 1 dose of hydralazine 10 mg. Blood pressure improved in the afternoon, and is down to 149/62. Patient has had no fever or chills. Patient is on subcu heparin for DVT prophylaxis, she is on Pepcid for GI prophylaxis, her blood sugars are being monitored before each meal, blood sugars have been running in the 192-77 range, Levemir was added day 22 units twice daily. Patient normally takes Levemir 44 units twice daily at home. Objective - Vital Signs Vital signs: Vital Signs Temp 97.8 F 04/14/21 12:00 Pulse 66 04/14/21 13:15 Resp 18 04/14/21 11:00 BP 153/59 04/14/21 13:30 Pulse Ox 87 L 04/14/21 13:30 Intake & Output 04/13/21 04/14/21 04/14/21 18:59 06:59 18:59 Intake Total 900 150 300 Output Total 700 835 240 Balance 200 -685 60 Intake: Oral 900 150 300 Output: Urine 700 835 240 Other: Voiding Method Indwelling Catheter Indwelling Catheter Indwelling Catheter # Voids 50 # Bowel Movements 1 1 - Exam GENERAL EXAM: Alert, very pleasant, 71-year-old white female, on 2 L of oxygen and pulse ox of 99%, comfortable in no apparent distress. Patient is oriented to person and place, disoriented to time HEAD: Normocephalic/atraumatic. EYES: Normal reaction of pupils, equal size. Conjunctiva pink, sclera white. NOSE: Clear with pink turbinates. THROAT: No erythema or exudates. NECK: No masses, no JVD, no thyroid enlargement, no adenopathy. CHEST: No chest wall deformity. Symmetrical expansion. LUNGS: Equal air entry with no crackles, wheeze, rhonchi or dullness. CVS: Regular rate and rhythm, normal S1 and S2, no gallops, no murmurs, no rubs ABDOMEN: Soft, nontender. No hepatosplenomegaly, normal bowel sounds, no guarding or rigidity. EXTREMITIES: No clubbing, no edema, no cyanosis, 2+ pulses and upper and lower extremities. MUSCULOSKELETAL: Muscle strength and tone normal. SPINE: No scoliosis or deformity SKIN: No rashes CENTRAL NERVOUS SYSTEM: Alert and oriented -2. No focal deficits, tone is normal in all 4 extremities. PSYCHIATRIC: Alert and oriented -2. Appropriate affect. Intact judgment and insight. - Labs CBC & Chem 7: 04/14/21 04:25 04/14/21 04:25 Labs: Abnormal Lab Results - Last 24 Hours (Table) 04/12/21 04/13/21 04/13/21 Range/Units 19:47 20:27 21:30 RBC (3.80-5.40) m/uL Sodium (137-145) mmol/L BUN (7-17) mg/dL Glucose (74-99) mg/dL POC Glucose (mg/dL) 275 H (75-99) mg/dL Hemoglobin A1c 9.4 H (4.0-6.0) % Urine Appearance Cloudy H (Clear) Urine Protein 2+ H (Negative) Urine Glucose (UA) (Negative) Urine Ketones (Negative) Urine Blood Moderate H (Negative) Ur Leukocyte Esterase Small H (Negative) Urine RBC 32 H (0-5) /hpf Urine WBC 7 H (0-5) /hpf Amorphous Sediment (None) /hpf Urine Bacteria Rare H (None) /hpf Hyaline Casts (0-2) /lpf Urine Mucus Rare H (None) /hpf 04/14/21 04/14/21 04/14/21 Range/Units 00:06 04:25 04:25 RBC 3.62 L (3.80-5.40) m/uL Sodium 134 L (137-145) mmol/L BUN 19 H (7-17) mg/dL Glucose 195 H (74-99) mg/dL POC Glucose (mg/dL) 288 H (75-99) mg/dL Hemoglobin A1c (4.0-6.0) % Urine Appearance (Clear) Urine Protein (Negative) Urine Glucose (UA) (Negative) Urine Ketones (Negative) Urine Blood (Negative) Ur Leukocyte Esterase (Negative) Urine RBC (0-5) /hpf Urine WBC (0-5) /hpf Amorphous Sediment (None) /hpf Urine Bacteria (None) /hpf Hyaline Casts (0-2) /lpf Urine Mucus (None) /hpf 04/14/21 04/14/21 04/14/21 Range/Units 06:11 12:18 13:37 RBC (3.80-5.40) m/uL Sodium (137-145) mmol/L BUN (7-17) mg/dL Glucose (74-99) mg/dL POC Glucose (mg/dL) 192 H 277 H (75-99) mg/dL Hemoglobin A1c (4.0-6.0) % Urine Appearance Cloudy H (Clear) Urine Protein 2+ H (Negative) Urine Glucose (UA) 4+ H (Negative) Urine Ketones Trace H (Negative) Urine Blood Large H (Negative) Ur Leukocyte Esterase (Negative) Urine RBC 159 H (0-5) /hpf Urine WBC 7 H (0-5) /hpf Amorphous Sediment Rare H (None) /hpf Urine Bacteria (None) /hpf Hyaline Casts 7 H (0-2) /lpf Urine Mucus Rare H (None) /hpf Microbiology - Last 24 Hours (Table) 04/12/21 21:00 Blood Culture - Preliminary Blood No Growth after 24 hours 04/12/21 20:40 Blood Culture - Preliminary Blood No Growth after 24 hours Assessment and Plan Plan: Assessment: #1. Acute ischemic stroke status post TPA, patient presented with symptoms of aphasia, left leg weakness, and altered mental status. Aphasia has improved, however patient continues to have episodes of confusion #2. Hypertension #3. Hyperlipidemia #4. History of coronary artery disease status post stenting and previous coronary artery bypass grafting in 2017 #5. History of COPD #6. 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 Diabetes mellitus type 2 #8. Chronic hypoxic respiratory failure on home oxygen Plan: Patient was started on metoprolol 25 mg twice daily, We'll restart home dose losartan 100 mg once daily One-time dose hydralazine was given, blood pressures currently improved Patient is having episodes of confusion, and agitation We'll inquire from neurology whether computed tomography scan needs to be repeated Patient has been started on Seroquel Continue monitoring in the intensive care unit I performed a history & physical examination of the patient and discussed their management with my nurse practitioner, Raine Arriaga. I reviewed the nurse pr actitioner's note and agree with the documented findings and plan of care. Lung sounds are positive for diminished breath sounds throughout the lung robert. The findings and the impression was discussed with the patient. I attest to the documentation by the nurse practitioner. Time with Patient: Less than 30
[2021-04-14] MEDS: QUEtiapine 25 MG TAB PO PRN ×2 (15:46→21:26)
--- NOTE | 2021-04-14 15:51 | CT ---
EXAMINATION TYPE: CT brain wo con DATE OF EXAM: 04/14/2021 COMPARISON: 04/12/2021 HISTORY: 71-year-old female confusion, Altered mental status. Rule out CVA TECHNIQUE: Examination was done in axial plane without intravenous contrast. Coronal and sagittal r econstructions performed. CT DLP: 1099.4 mGycm Automated exposure control for dose reduction was used. FINDINGS: There is no evidence of acute intracranial hemorrhage, acute ischemic changes, mass, mass-effect, or extra-axial fluid collection. There is no effacement of cerebral sulci or basal subarachnoid cister ns. There is no midline shift. [place]-white matter distinction is preserved. Redemonstrated moderate bifrontal atrophy. Mild central cerebral volume loss with secondary prominenc e to the ventricular system. Mild patchy white matter hypodensities in the periventricular region sug gesting changes of chronic small vessel ischemic disease. Stable partially empty sella. Normal variation of hyperostosis frontalis interna. Paranasal sinuses and mastoid air cells well pneu matized. Orbits and globes are intact. IMPRESSION: No acute intracranial abnormality seen. Stable moderate bifrontal atrophy and mild central cerebral v olume loss. Mild burden of chronic small vessel ischemic disease.
[2021-04-14 18:08] LABS: Glucose,Whole Blood 274 mg/dL (75-99)
[2021-04-14] MEDS: SYMBICORT 160-4.5 MCG INHALER INHALATION SCH (19:58)
[2021-04-14 20:39] LABS: Glucose,Whole Blood 233 mg/dL (75-99)
[2021-04-14] MEDS: ATORVASTATIN 80 MG TAB PO SCH (20:55)
[2021-04-14] MEDS ORDERED: LOSARTAN 50 MG TAB PO SCH (21:00)
[2021-04-15 04:39] LABS: Basophils # (A) 0.1 k/uL (0-0.2); Basophils % (A) 0 %; Eosinophils # (A) 0.4 k/uL (0-0.7); Eosinophils % (A) 4 %; HCT 36.5 % (34.0-46.0); HGB 12.2 gm/dL (11.4-16.0); Lymphocytes # (A) 1.4 k/uL (1.0-4.8); Lymphocytes % (A) 13 %; MCHC 33.3 g/dL (31.0-37.0); Mean Platelet Volume 6.7; Monocytes # (A) 0.9 k/uL (0-1.0); Monocytes % (A) 9 %; Neutrophils # (A) 7.8 k/uL (1.3-7.7); Neutrophils % (A) 72 %; Platelet Count 290 k/uL (150-450); RBC 3.81 m/uL (3.80-5.40); RDW 13.3 % (11.5-15.5); WBC 10.8 k/uL (3.8-10.6)
[2021-04-15 04:58] LABS: Calcium 9.2 mg/dL (8.4-10.2); Potassium 4.1 mmol/L (3.5-5.1)
[2021-04-15 06:51] LABS: Glucose,Whole Blood 156 mg/dL (75-99)
[2021-04-15] MEDS: INSULIN ASPART (NovoLOG) 100 UNIT/ML VIAL SQ SCH ×4 (07:15→21:36)
[2021-04-15] MEDS: SYMBICORT 160-4.5 MCG INHALER INHALATION SCH ×2 (08:32→20:48)
[2021-04-15] MEDS: ASPIRIN 81 MG PO SCH (09:24)
[2021-04-15] MEDS: TICAGRELOR 90 MG TAB PO SCH ×2 (09:24→21:36)
[2021-04-15] MEDS: FAMOTIDINE 20 MG TAB PO SCH ×2 (09:24→21:36)
[2021-04-15] MEDS: METOPROLOL TARTRATE 25 MG TAB PO SCH ×2 (09:24→21:36)
[2021-04-15] MEDS: INSULIN DETEMIR (LEVEMIR) 100 UNIT/ML SYR SQ SCH ×2 (09:24→21:36)
[2021-04-15] MEDS: LOSARTAN 50 MG TAB PO SCH (09:24)
[2021-04-15] MEDS: HEPARIN SODIUM,PORCINE/PF 5,000 UNIT/0.5 ML SYRINGE SQ SCH ×2 (09:25→21:36)
[2021-04-15 11:09] LABS: Glucose,Whole Blood 148 mg/dL (75-99)
[2021-04-15] MEDS ORDERED: PERMETHRIN 5% CREAM 60 GM TUBE TOPICAL ONE (13:30)
[2021-04-15 14:04] VITALS: BMI 34.7
[2021-04-15 16:47] LABS: Glucose,Whole Blood 271 mg/dL (75-99)
--- NOTE | 2021-04-15 17:51 | P.PN ---
Subjective Progress Note Date: 04/15/21 Principal diagnosis: Acute ischemic CVA status post TPA This is a 71-year-old white female patient with extensive medical history including COPD, hypertension, hyperlipidemia, previous history of myocardial infarction, coronary artery disease with previous stenting and bypass grafting in 2017, diabetes mellitus, former smoker, who presented to the emergency department on 04/12/2021 by EMS for evaluation of altered mental status, and aphasia. Patient states she laid down to take a nap yesterday in the afternoon, and she woke up 2 hours later and her daughter noticed that she was acutely confused, was difficult to understand, and patient was not able to follow basic commands. She also seemed to have left lower extremity weakness. MRSA alerted the EMS, and when the EMS arrived they noted that patient's symptoms completely resolved however the symptoms shortly came back and she was brought to the emergency department for further evaluation and treatment. Patient was found to be TPA candidate. CT imaging of the head without contrast revealed cerebral atrophy and no acute intracranial abnormality, patient's blood glucose was 161. Urine drug screen was negative, EKG showed no acute changes or signs of acute ischemia. Patient's chest x-ray revealed no acute cardiopulmonary process. Code stroke was alerted, TPA was recommended and administered. Neurology in [facility] also recommended 1 g of IV Keppra for possible anticipated seizure. CT angiography of the head and neck showed approximately 50% stenosis in the right ICA, 25% stenosis in the distal RCA, no evidence of any significant stenosis on the left side, no significant intracranial angiographic abnormality. Patient was then transferred to the intensive care unit for advanced neurological monitoring following TPA administration, follow-up brain CT without contrast on 04/12/2021 at 2300 showed no acute intracranial abnormality. This morning patient is seen in intensive care unit. She is awake and alert, oriented to person and place. She seems to be disoriented to time. She appears to be in no acute distress, she is generally weak, still has a residual left sided weakness, however her speech has dramatically improved, and seems to be speaking normally. She denies any respiratory difficulty, lung sounds reveal just a few basilar crackles at the right base, no wheezing, no cough, no chest pain, blood pressures 125/79, and she is in sinus mechanism with a rate of 61 BPM, she has been afebrile. She did require nicardipine infusion yesterday for elevated blood pressures which is currently discontinued. Systolic pressure is 120-140 and her diastolic in the 60s and 70s. Patient was able to sit up on the edge of the bed with assistance, she is generally weak, requiring extensive assistance with 2 people assist. This morning echocardiogram is pending, carotid Doppler has been completed, awaiting results of radiology report. MRI of the brain is pending for today, currently on 0.9 normal saline at 50 ML per hour, no other drips, we will restart her high-dose Lipitor 80 mg at bedtime, she is on Pepcid for GI prophylaxis, but sugar monitoring every 6 hours, her last blood sugar is 134 this morning. Morning's labs have been reviewed, showing a white count of 10.5, hemoglobin of 13, electrolytes and renal profile are within normal limits, troponin was negative 1, at less than 0.012, ammonia level was less than 9, LFTs were within normal limits, LDL was 62, HDL was 34, total cholesterol of 112, triglycerides is 77. Urinalysis showed cloudy urine, with 2+ protein, moderate loose, but no clear evidence of infection. On 04/14/2021 patient seen in follow-up in intensive care unit, she is awake and alert, oriented 3, her speech pattern seems to be back to baseline during our evaluation, however per nursing staff patient at times continues to be mixing up her words. No new weakness, and her strength in bilateral lower extremities is improving, and patient was able to get up out of bed basically unassisted on today's evaluation. She is oriented to person and place today. Denies any acute distress, no facial asymmetry noted on today's exam. Brain MRI was completed showing white matter signal changes around the lateral ventricles that are nonspecific and that could relate to microvascular ischemia. No evidence of cortical infarct. Carotid Doppler was completed showing extensive bilateral calcified plaque without definite significant hemodynamic stenosis. Echocardiogram showed mild concentric LVH, and EF of 50-55%. Other to severe pulmonary hypertension with a PA pressure of 54.2 mmHg, moderate to severe tricuspid regurgitation. Mild mitral regurg. Patient has been noted to be very restless, and confused at times. Wall catheter has been discontinued, urine was noted to be quite turbid in appearance, urinalysis was sent, however in view of increased confusion and quite turbid appearance of the urine patient was empirically started on Rocephin. Urine culture is pending, patient is status post TPA, she was started on aspirin and Roslyn time last night at 2100. Neurology is closely following. She was also noted to have elevated blood pressures systolic in the 190, metoprolol 25 mg twice daily was started, in addition to losartan home dose 100 mg once daily. Patient was given 1 dose of hydralazine 10 mg. Blood pressure improved in the afternoon, and is down to 149/62. Patient has had no fever or chills. Patient is on subcu heparin for DVT prophylaxis, she is on Pepcid for GI prophylaxis, her blood sugars are being monitored before each meal, blood sugars have been running in the 192-77 range, Levemir was added day 22 units twice daily. Patient normally takes Levemir 44 units twice daily at home. On April 15, 2021 patient seen in follow-up in the intensive care unit, patient is awake and alert, oriented 3 at the moment, yesterday she had intermittent confusion, restlessness and agitation requiring placement of a safety inspector at the bedside, she has received Seroquel. Repeat brain CT was completed showing no acute intracranial abnormality. There is stable moderate bifrontal atrophy and mild central cerebral volume loss. Mild burden of chronic small vessel ischemic disease. Patient had a low-grade fever this morning, with a temp of 100.5F, urinalysis was repeated again showing cloudy specimen, with 2+ protein, 4+ glucose, trace ketones, increased red blood cells, 7 of white blood cells, a nd culture has been sent and pending at this time, patient is empirically covered with Rocephin, blood cultures have been sent this morning. She denies any worsening shortness of breath, no cough. Her chest x-ray showed some pulmonary vascular congestion, no hilar masses, mediastinum was normal. Today's labs have been reviewed showing white blood cell count of 10.8, hemoglobin of 12.2, sodium is 135 quite interested electrolytes and renal profile were within normal limits. No abdominal pain, nausea or vomiting. Neurologically patien's speech is back to baseline, normal, no aphasia noted on today's exam, strength seems to be equal bilaterally. No new weakness. Objective - Vital Signs Vital signs: Vital Signs Temp 97.1 F L 04/15/21 16:00 Pulse 74 04/15/21 17:00 Resp 26 H 04/15/21 17:00 BP 152/68 04/15/21 17:00 Pulse Ox 97 04/15/21 16:00 Intake & Output 04/14/21 04/15/21 04/15/21 18:59 06:59 18:59 Intake Total 360 760 Output Total 340 500 400 Balance 20 -500 360 Weight 68.039 kg 91.8 kg 91.8 kg Intake: Intake, IV Titration 100 Amount cefTRIAXone 1 gm In 100 Sodium Chloride 0.9% 50 ml @ 100 mls/hr IVPB Q24HR [facility] Rx#:[id number] Oral 360 660 Output: Urine 340 500 400 Other: Voiding Method Bedside Commode Bedside Commode Incontinent # Voids 1 - Exam GENERAL EXAM: Alert, very pleasant, 71-year-old white female, on 2 L of oxygen and pulse ox of 99%, comfortable in no apparent distress. Patient is oriented to person and place, and time at the moment. Does have intermittent periods of confusion HEAD: Normocephalic/atraumatic. EYES: Normal reaction of pupils, equal size. Conjunctiva pink, sclera white. NOSE: Clear with pink turbinates. THROAT: No erythema or exudates. NECK: No masses, no JVD, no thyroid enlargement, no adenopathy. CHEST: No chest wall deformity. Symmetrical expansion. LUNGS: Equal air entry with no crackles, wheeze, rhonchi or dullness. CVS: Regular rate and rhythm, normal S1 and S2, no gallops, no murmurs, no rubs ABDOMEN: Soft, nontender. No hepatosplenomegaly, normal bowel sounds, no guarding or rigidity. EXTREMITIES: No clubbing, no edema, no cyanosis, 2+ pulses and upper and lower extremities. MUSCULOSKELETAL: Muscle strength and tone normal. SPINE: No scoliosis or deformity SKIN: No rashes CENTRAL NERVOUS SYSTEM: Alert and oriented -2. No focal deficits, tone is normal in all 4 extremities. PSYCHIATRIC: Alert and oriented -2. Appropriate affect. Intact judgment and insight. - Labs CBC & Chem 7: 04/15/21 03:51 04/15/21 03:51 Labs: Abnormal Lab Results - Last 24 Hours (Table) 04/14/21 04/14/21 04/15/21 Range/Units 18:06 20:37 03:51 WBC 10.8 H (3.8-10.6) k/uL Neutrophils # 7.8 H (1.3-7.7) k/uL Sodium (137-145) mmol/L Glucose (74-99) mg/dL POC Glucose (mg/dL) 274 H 233 H (75-99) mg/dL 04/15/21 04/15/21 04/15/21 Range/Units 03:51 06:49 11:08 WBC (3.8-10.6) k/uL Neutrophils # (1.3-7.7) k/uL Sodium 135 L (137-145) mmol/L Glucose 170 H (74-99) mg/dL POC Glucose (mg/dL) 156 H 148 H (75-99) mg/dL 04/15/21 Range/Units 16:46 WBC (3.8-10.6) k/uL Neutrophils # (1.3-7.7) k/uL Sodium (137-145) mmol/L Glucose (74-99) mg/dL POC Glucose (mg/dL) 271 H (75-99) mg/dL Microbiology - Last 24 Hours (Table) 04/15/21 09:15 Urine Culture - Preliminary Urine,Catheterized 04/12/21 20:40 Blood Culture - Preliminary Blood No Growth after 48 hours 04/12/21 21:00 Blood Culture - Preliminary Blood No Growth after 48 hours Assessment and Plan Plan: Assessment: #1. Acute ischemic stroke status post TPA, patient presented with symptoms of aphasia, left leg weakness, and altered mental status. Aphasia has improved, however patient continues to have episodes of confusion #2. Hypertension #3. Hyperlipidemia #4. History of coronary artery disease status post stenting and previous coronary artery bypass grafting in 2017 #5. History of COPD #6. 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 Diabetes mellitus type 2 #8. Chronic hypoxic respiratory failure on home oxygen #9. Low-grade fever, rule out possibility of sepsis, possibly related to urinary tract infection Plan: Continue close neurologic monitoring Maintaining safety precautions, maintain safety inspector at the bedside Brain CT showed no acute intracranial process Continue Rocephin Set of blood cultures have been sent Neurologically patient still having some episodes of confusion, but overall seems to be better on today's exam No new weakness, no aphasia on today's exam Neurology is closely following Continue current treatment We'll continue to follow I performed a history & physical examination of the patient and discussed their management with my nurse practitioner, Raine Arriaga. I reviewed the nurse practitioner's note and agree with the documented findings and plan of care. Lung sounds are positive for diminished breath sounds throughout the lung robert. The findings and the impression was discussed with the patient. I attest to the documentation by the nurse practitioner. Time with Patient: Less than 30
--- NOTE | 2021-04-15 18:30 | EEG ---
ELECTROENCEPHALOGRAM REPORT DATE OF SERVICE: 04/15/2021. CLINICAL HISTORY: This is a 71-year-old woman who has fluctuation in mentation. The video EEG is obtained to evaluate for seizure and epileptiform activity. RELEVANT MEDICATION: The patient is not on any antiepileptic drug. EEG TYPE: A routine 21 channel EEG is performed with video using the 10/20 electrode placement system. DESCRIPTION: Awake state is only obtained. During awake state, there is posterior dominant rhythm of low to moderate voltage of 7-8 hertz that is poorly sustained, poorly modulated and at rarely the background consists of diffuse delta activity. There is no physiological sleep architecture. There is no focal slowing. Interictal and ictal are none. ACTIVATION PROCEDURE: Photic stimulation and hyperventilation are not performed. CLINICAL INTERPRETATION: This is an abnormal routine EEG. The background slowing is suggestive of mild encephalopathy. There are no focal slowing, epileptiform discharge or seizure on the EEG. Clinical correlation is recommended. HAIM / GABRIELLA: [id number] / MTDD
--- NOTE | 2021-04-15 18:44 | P.PN ---
Subjective Progress Note Date: 04/15/21 The patient is seen at bedside and per the nurse and she stated that patient seems somewhat less agitated today. The patient feels she is doing better. I spoke with the patient daughter (Sara) via phone, she stated that patient presented to the hospital because her speech was off, and did not understand what she was saying and was not following commands and that was new. She would say something but did not understand. She had chronic lower back with lower leg weakness (right > left). She see's Dr. Saini. Since heart attack 2016 s/p CABG she would have one episode of saying get that one thing to her daughter and her daughter what but that is once a day. She felt her mentation is somewhat off. Objective - Vital Signs Vital signs: Vital Signs Temp 97.1 F L 04/15/21 16:00 Pulse 70 04/15/21 18:00 Resp 31 H 04/15/21 18:00 BP 153/63 04/15/21 18:00 Pulse Ox 97 04/15/21 16:00 Intake & Output 04/14/21 04/15/21 04/15/21 18:59 06:59 18:59 Intake Total 360 760 Output Total 340 500 400 Balance 20 -500 360 Weight 68.039 kg 91.8 kg 91.8 kg Intake: Intake, IV Titration 100 Amount cefTRIAXone 1 gm In 100 Sodium Chloride 0.9% 50 ml @ 100 mls/hr IVPB Q24HR [facility] Rx#:[id number] Oral 360 660 Output: Urine 340 500 400 Other: Voiding Method Bedside Commode Bedside Commode Incontinent # Voids 1 - Exam GENERAL: The patient is lying in bed and is not in acute distress. NEUROLOGICAL: Higher mental function: The patient is awake, alert, oriented to self. She stated she was in the hospital and the year is 2021. She was able to name correctly watch and glassess. She was able to repet sentences (better today compared to yesterday). She is following simple commands. No aphasia that was noticeable today. No neglect. Cranial nerves: The pupils are round, equal and reactive to light and accommodation. Visual robert are full to confrontation throughout. Extraocular movement is intact no nystagmus is noted. Facial sensation is normal to touch throughout. The facial strength is normal throughout. Hearing is moderately decreased bilaterally to hand rub. Tongue is midline and moved [id number] without any difficulty. No dysarthria is noted. Shoulder shrug is normal bilaterally. Motor: Gait is deferred. The strength is 5/5 in upper and lower seems 5- bilaterally (per daughter she has chronic low back pain with chronic lower extremity weakness right > left).. Normal tone and bulk. Cerebellum: Normal finger to nose bilaterally. Sensation: Sensation is normal to touch throughout. Reflexes (right/left): 2+ throughout uppers while lowers are 1+ bilaterally.. Plantars are downgoing bilaterally. WORK-UP: CT of the head is reported as cerebral atrophy. No acute intracranial abnormality. No change. CT angiography of the head and neck was reported as there is approximate 50% stenosis origin of the right internal carotid artery. There is 25% stenosis of the distal right common carotid artery. No evidence of any significant stenosis of the left. No significant intercranial and angiographic abnormality. MR the brain (post 24 hours tpa) is reported as cerebral atrophy. White matter changes change around the lateral ventricle are nonspecific and could relate to microvascular ischemic Disease. No evidence of cortical infarct. Carotid duplex was reported as extensive bilateral calcified plaque with no def inite of significant hemodynamic stenosis. Repeat CT head (because of altered mental status): Reported as no acute intracranial abnormality seen. Stable moderate bifrontal atrophy and mild central cerebral volume loss. Mild burden of chronic small vessel ischemic disease. 2-D echo was reported as moderate concentric left ventricular hypertrophy. Ejection fraction of 50-55%. Basilar lateral left ventricle wall motion is hypokinetic. Left atrium is severely dilated. Hemoglobin A1c is 9.4 which her diabetes is uncontrolled. TSH is 0.35 which is considered low but the free T4 is 1.14 which is considered normal. Lipid panel is LDL 62, HDL of 34, cholesterol of 112, triglyceride of 77. - Labs CBC & Chem 7: 04/15/21 03:51 04/15/21 03:51 Labs: Abnormal Lab Results - Last 24 Hours (Table) 04/14/21 04/15/21 04/15/21 Range/Units 20:37 03:51 03:51 WBC 10.8 H (3.8-10.6) k/uL Neutrophils # 7.8 H (1.3-7.7) k/uL Sodium 135 L (137-145) mmol/L Glucose 170 H (74-99) mg/dL POC Glucose (mg/dL) 233 H (75-99) mg/dL 04/15/21 04/15/21 04/15/21 Range/Units 06:49 11:08 16:46 WBC (3.8-10.6) k/uL Neutrophils # (1.3-7.7) k/uL Sodium (137-145) mmol/L Glucose (74-99) mg/dL POC Glucose (mg/dL) 156 H 148 H 271 H (75-99) mg/dL Microbiology - Last 24 Hours (Table) 04/15/21 09:15 Urine Culture - Preliminary Urine,Catheterized 04/12/21 20:40 Blood Culture - Preliminary Blood No Growth after 48 hours 04/12/21 21:00 Blood Culture - Preliminary Blood No Growth after 48 hours Assessment and Plan Assessment: Acute ischemic stroke status post TPA (Pe EDNIH 7. Aphasia, leg weakness, commands)--improving (per daughter language was off and thats was brought to her to hospital while leg weakness is chornic. Likely cognitive impairement/dementia (per daughter since 2016 and was subtle) and has moderate bilateral frontal atrophy. Chronic lower back pain with radiation to the right leg seems like radiculopathy (but per patient no worsening of her lower back pain) Diabetes mellitus and seems uncontrolled (HbA1c 9.4) History of Hypertension History of coronary artery disease status post stent History of myocardia infarction s/p CABG Heart failure Former nicotine use (stopped 11 years ago) Plan: * Continue ASA 81mg (home dose) and started on Brilinta 90mg 1 tab bid (failed Plavix because of her stroke). Continue Lipitor 80mg qhs for secondary stroke prophylaxis. LDL goal in stroke <70. * PT, OT and [employer]ER are consulted * Q4 hours Neuro checks . * On continuous cardiac monitoring. * Ordered routine EEG on 04/15/2021 because of fluctuation of mentation (preliminary ready): Abnormal routine EEG. The background slowing is suggestive of mild encephalopathy. There are no focal slowing, epileptiform discharges or seizure on EEG. * Ordered Vitamin B12 and folate levels: If Vitamin B12 is low recommend Vitamin B12 supplement of 1000mcg daily and if folic is low then recommend 1mg daily. * Recommend normotensive and will defer management to the primary team/ICU team. * Recommend patient to be discharged with event monitor. * We'll defer the rest of the medical management to the primary team and ICU team. * I notified the daughter that upon discharge, recommend for patient to follow- up with a neurologist as outpatient with 1-2 weeks and possibly consider neurospych evaluation as outpatient for further evaluation of her memory. For DVT prophylaxis: On subq heparin. The plan is discussed with the patient's daughter (Sara) via phone and her ICU nurse. Otherwise she is clear from neurological standpoint. Dirk Maciel MD Neuro-Hospitalist. Time with Patient: Less than 30
[2021-04-15 21:30] LABS: Glucose,Whole Blood 248 mg/dL (75-99)
[2021-04-15] MEDS: ATORVASTATIN 80 MG TAB PO SCH (21:36)
[2021-04-16] MEDS: ACETAMINOPHEN TAB 325 MG TAB PO PRN (04:18)
[2021-04-16 07:11] LABS: Glucose,Whole Blood 233 mg/dL (75-99)
[2021-04-16] MEDS: INSULIN ASPART (NovoLOG) 100 UNIT/ML VIAL SQ SCH ×4 (07:11→21:31)
[2021-04-16 07:38] LABS: Basophils # (A) 0.1 k/uL (0-0.2); Basophils % (A) 0 %; Eosinophils # (A) 0.3 k/uL (0-0.7); Eosinophils % (A) 3 %; HCT 36.1 % (34.0-46.0); HGB 12.1 gm/dL (11.4-16.0); Lymphocytes # (A) 1.3 k/uL (1.0-4.8); Lymphocytes % (A) 11 %; MCH 32.3 pg (25.0-35.0); MCHC 33.5 g/dL (31.0-37.0); MCV 96.4 fL (80.0-100.0); Mean Platelet Volume 7.6; Monocytes # (A) 1.1 k/uL (0-1.0); Monocytes % (A) 9 %; Neutrophils # (A) 9.1 k/uL (1.3-7.7); Neutrophils % (A) 75 %; Platelet Count 287 k/uL (150-450); RBC 3.74 m/uL (3.80-5.40); RDW 13.2 % (11.5-15.5); WBC 12.1 k/uL (3.8-10.6)
[2021-04-16 08:03] LABS: Calcium 9.1 mg/dL (8.4-10.2); Potassium 3.8 mmol/L (3.5-5.1)
--- NOTE | 2021-04-16 08:30 | P.PN ---
Subjective Progress Note Date: 04/16/21 Principal diagnosis: Acute ischemic CVA status post TPA This is a 71-year-old white female patient with extensive medical history including COPD, hypertension, hyperlipidemia, previous history of myocardial infarction, coronary artery disease with previous stenting and bypass grafting in 2017, diabetes mellitus, former smoker, who presented to the emergency department on 04/12/2021 by EMS for evaluation of altered mental status, and aphasia. Patient states she laid down to take a nap yesterday in the afternoon, and she woke up 2 hours later and her daughter noticed that she was acutely confused, was difficult to understand, and patient was not able to follow basic commands. She also seemed to have left lower extremity weakness. MRSA alerted the EMS, and when the EMS arrived they noted that patient's symptoms completely resolved however the symptoms shortly came back and she was brought to the emergency department for further evaluation and treatment. Patient was found to be TPA candidate. CT imaging of the head without contrast revealed cerebral atrophy and no acute intracranial abnormality, patient's blood glucose was 161. Urine drug screen was negative, EKG showed no acute changes or signs of acute ischemia. Patient's chest x-ray revealed no acute cardiopulmonary process. Code stroke was alerted, TPA was recommended and administered. Neurology in [facility] also recommended 1 g of IV Keppra for possible anticipated seizure. CT angiography of the head and neck showed approximately 50% stenosis in the right ICA, 25% stenosis in the distal RCA, no evidence of any significant stenosis on the left side, no significant intracranial angiographic abnormality. Patient was then transferred to the intensive care unit for advanced neurological monitoring following TPA administration, follow-up brain CT without contrast on 04/12/2021 at 2300 showed no acute intracranial abnormality. This morning patient is seen in intensive care unit. She is awake and alert, oriented to person and place. She seems to be disoriented to time. She appears to be in no acute distress, she is generally weak, still has a residual left sided weakness, however her speech has dramatically improved, and seems to be speaking normally. She denies any respiratory difficulty, lung sounds reveal just a few basilar crackles at the right base, no wheezing, no cough, no chest pain, blood pressures 125/79, and she is in sinus mechanism with a rate of 61 BPM, she has been afebrile. She did require nicardipine infusion yesterday for elevated blood pressures which is currently discontinued. Systolic pressure is 120-140 and her diastolic in the 60s and 70s. Patient was able to sit up on the edge of the bed with assistance, she is generally weak, requiring extensive assistance with 2 people assist. This morning echocardiogram is pending, carotid Doppler has been completed, awaiting results of radiology report. MRI of the brain is pending for today, currently on 0.9 normal saline at 50 ML per hour, no other drips, we will restart her high-dose Lipitor 80 mg at bedtime, she is on Pepcid for GI prophylaxis, but sugar monitoring every 6 hours, her last blood sugar is 134 this morning. Morning's labs have been reviewed, showing a white count of 10.5, hemoglobin of 13, electrolytes and renal profile are within normal limits, troponin was negative 1, at less than 0.012, ammonia level was less than 9, LFTs were within normal limits, LDL was 62, HDL was 34, total cholesterol of 112, triglycerides is 77. Urinalysis showed cloudy urine, with 2+ protein, moderate loose, but no clear evidence of infection. On 04/14/2021 patient seen in follow-up in intensive care unit, she is awake and alert, oriented 3, her speech pattern seems to be back to baseline during our evaluation, however per nursing staff patient at times continues to be mixing up her words. No new weakness, and her strength in bilateral lower extremities is improving, and patient was able to get up out of bed basically unassisted on today's evaluation. She is oriented to person and place today. Denies any acute distress, no facial asymmetry noted on today's exam. Brain MRI was completed showing white matter signal changes around the lateral ventricles that are nonspecific and that could relate to microvascular ischemia. No evidence of cortical infarct. Carotid Doppler was completed showing extensive bilateral calcified plaque without definite significant hemodynamic stenosis. Echocardiogram showed mild concentric LVH, and EF of 50-55%. Other to severe pulmonary hypertension with a PA pressure of 54.2 mmHg, moderate to severe tricuspid regurgitation. Mild mitral regurg. Patient has been noted to be very restless, and confused at times. Wall catheter has been discontinued, urine was noted to be quite turbid in appearance, urinalysis was sent, however in view of increased confusion and quite turbid appearance of the urine patient was empirically started on Rocephin. Urine culture is pending, patient is status post TPA, she was started on aspirin and Winston time last night at 2100. Neurology is closely following. She was also noted to have elevated blood pressures systolic in the 190, metoprolol 25 mg twice daily was started, in addition to losartan home dose 100 mg once daily. Patient was given 1 dose of hydralazine 10 mg. Blood pressure improved in the afternoon, and is down to 149/62. Patient has had no fever or chills. Patient is on subcu heparin for DVT prophylaxis, she is on Pepcid for GI prophylaxis, her blood sugars are being monitored before each meal, blood sugars have been running in the 192-77 range, Levemir was added day 22 units twice daily. Patient normally takes Levemir 44 units twice daily at home. On April 15, 2021 patient seen in follow-up in the intensive care unit, patient is awake and alert, oriented 3 at the moment, yesterday she had intermittent confusion, restlessness and agitation requiring placement of a product safety and standards engineer at the bedside, she has received Seroquel. Repeat brain CT was completed showing no acute intracranial abnormality. There is stable moderate bifrontal atrophy and mild central cerebral volume loss. Mild burden of chronic small vessel ischemic disease. Patient had a low-grade fever this morning, with a temp of 100.5F, urinalysis was repeated again showing cloudy specimen, with 2+ protein, 4+ glucose, trace ketones, increased red blood cells, 7 of white blood cells, a nd culture has been sent and pending at this time, patient is empirically covered with Rocephin, blood cultures have been sent this morning. She denies any worsening shortness of breath, no cough. Her chest x-ray showed some pulmonary vascular congestion, no hilar masses, mediastinum was normal. Today's labs have been reviewed showing white blood cell count of 10.8, hemoglobin of 12.2, sodium is 135 quite interested electrolytes and renal profile were within normal limits. No abdominal pain, nausea or vomiting. Neurologically patien's speech is back to baseline, normal, no aphasia noted on today's exam, strength seems to be equal bilaterally. No new weakness. On today's evaluation on 04/16/2021 patient is seen in follow-up in intensive care unit. She is currently sleeping, but easily arouses to verbal stimuli, she is oriented to place and the year, she disoriented to month. She did have an episode of restlessness last night, patient got up unassisted and went to the bathroom. No falls, no injuries. She was redirected, she remains on Seroquel 25 mg twice daily. Neurologically her speech seems to be normal on today's exam, no mixing up words noted on today's exam, no facial asymmetry, she still has left hand plasma processor weakness, bilateral lower extremity strength seems to be equal. She is in sinus mechanism with a rate of 66 BPM, she is on room air with a pulse ox of 94%, she is breathing comfortably, lung sounds are clear, blood pressure is stable. Currently it is 136/93, she has had no fever or chills overnight. She remains on Rocephin for empiric antibiotic coverage, her urine culture is still pending, blood cultures have been sent, are pending at this time. Abdomen is soft, nontender, no nausea vomiting or diarrhea. Patient is tolerating regular diet. Today's labs have been reviewed, with blood cell count is 12.1, hemoglobin is 12.1, serum sodium is 134, the rest of electrolytes are unremarkable, BUN is 18 creatinine 0.89. Objective - Vital Signs Vital signs: Vital Signs Temp 98 F 04/16/21 04:00 Pulse 69 04/16/21 04:00 Resp 18 04/16/21 04:00 BP 136/93 04/16/21 04:00 Pulse Ox 94 L 04/16/21 00:00 Intake & Output 04/15/21 04/16/21 04/16/21 18:59 06:59 18:59 Intake Total 760 Output Total 400 Balance 360 Weight 91.8 kg 91.7 kg Intake: Intake, IV Titration 100 Amount cefTRIAXone 1 gm In 100 Sodium Chloride 0.9% 50 ml @ 100 mls/hr IVPB Q24HR [facility] Rx#:[id number] Oral 660 Output: Urine 400 Other: Voiding Method Incontinent Incontinent # Voids 1 2 - Exam GENERAL EXAM: Alert, very pleasant, 71-year-old white female, on 2 L of oxygen and pulse ox of 99%, comfortable in no apparent distress. Patient is oriented to person and place, and the year, did not know the month. Does have intermittent periods of confusion HEAD: Normocephalic/atraumatic. EYES: Normal reaction of pupils, equal size. Conjunctiva pink, sclera white. NOSE: Clear with pink turbinates. THROAT: No erythema or exudates. NECK: No masses, no JVD, no thyroid enlargement, no adenopathy. CHEST: No chest wall deformity. Symmetrical expansion. LUNGS: Equal air entry with no crackles, wheeze, rhonchi or dullness. CVS: Regular rate and rhythm, normal S1 and S2, no gallops, no murmurs, no rubs ABDOMEN: Soft, nontender. No hepatosplenomegaly, normal bowel sounds, no guarding or rigidity. EXTREMITIES: No clubbing, no edema, no cyanosis, 2+ pulses and upper and lower extremities. MUSCULOSKELETAL: Muscle strength and tone normal. SPINE: No scoliosis or deformity SKIN: No rashes CENTRAL NERVOUS SYSTEM: Alert and oriented -2. patient still has left plasma processor weakness compared to the right hand PSYCHIATRIC: Alert and oriented -2. Appropriate affect. Intact judgment and insight. - Labs CBC & Chem 7: 04/16/21 07:16 04/16/21 07:16 Labs: Abnormal Lab Results - Last 24 Hours (Table) 04/15/21 04/15/21 04/15/21 Range/Units 11:08 16:46 21:29 WBC (3.8-10.6) k/uL RBC (3.80-5.40) m/uL Neutrophils # (1.3-7.7) k/uL Monocytes # (0-1.0) k/uL Sodium (137-145) mmol/L BUN (7-17) mg/dL Glucose (74-99) mg/dL POC Glucose (mg/dL) 148 H 271 H 248 H (75-99) mg/dL 04/16/21 04/16/21 04/16/21 Range/Units 07:10 07:16 07:16 WBC 12.1 H (3.8-10.6) k/uL RBC 3.74 L (3.80-5.40) m/uL Neutrophils # 9.1 H (1.3-7.7) k/uL Monocytes # 1.1 H (0-1.0) k/uL Sodium 134 L (137-145) mmol/L BUN 18 H (7-17) mg/dL Glucose 237 H (74-99) mg/dL POC Glucose (mg/dL) 233 H (75-99) mg/dL Microbiology - Last 24 Hours (Table) 04/12/21 21:00 Blood Culture - Preliminary Blood No Growth after 72 hours 04/12/21 20:40 Blood Culture - Preliminary Blood No Growth after 72 hours 04/15/21 09:15 Urine Culture - Preliminary Urine,Catheterized Assessment and Plan Plan: Assessment: #1. Acute ischemic stroke status post TPA, patient presented with symptoms of aphasia, left leg weakness, and altered mental status. Aphasia has improved, however patient continues to have episodes of confusion #2. Hypertension #3. Hyperlipidemia #4. History of coronary artery disease status post stenting and previous coronary artery bypass grafting in 2017 #5. History of COPD #6. 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 Diabetes mellitus type 2 #8. Chronic hypoxic respiratory failure on home oxygen #9. Low-grade fever, rule out possibility of sepsis, possibly related to urina ry tract infection Plan: Continue antiantibiotics, awaiting final cultures Hemodynamically patient is stable, no fever overnight Still has mild left hand plasma processor weakness speech seems to be back to baseline Still has episodes of confusion and restlessness which overall seems to have improved Continue Seroquel 25 mg twice daily Continue close neurological monitoring Blood pressure stable Increase activity as tolerated maintain safety precautions Stable for transfer out of intensive care unit to [facility] care with a product safety and standards engineer I performed a history & physical examination of the patient and discussed their management with my nurse practitioner, Raine Arriaga. I reviewed the nurse practitioner's note and agree with the documented findings and plan of care. Lung sounds are positive for diminished breath sounds throughout the lung robert. The findings and the impression was discussed with the patient. I attest to the documentation by the nurse practitioner. Time with Patient: Less than 30
[2021-04-16 09:17] LABS: Glucose,Whole Blood 152 mg/dL (75-99)
[2021-04-16] MEDS: HEPARIN SODIUM,PORCINE/PF 5,000 UNIT/0.5 ML SYRINGE SQ SCH ×2 (09:39→21:29)
[2021-04-16] MEDS: INSULIN DETEMIR (LEVEMIR) 100 UNIT/ML SYR SQ SCH ×2 (09:39→21:30)
[2021-04-16] MEDS: ASPIRIN 81 MG PO SCH (09:39)
[2021-04-16] MEDS: METOPROLOL TARTRATE 25 MG TAB PO SCH ×2 (09:40→21:30)
[2021-04-16] MEDS: FAMOTIDINE 20 MG TAB PO SCH ×2 (09:40→21:30)
[2021-04-16] MEDS: LOSARTAN 50 MG TAB PO SCH (09:40)
[2021-04-16] MEDS: TICAGRELOR 90 MG TAB PO SCH ×2 (09:40→21:30)
--- NOTE | 2021-04-16 09:42 | P.PN ---
Subjective Progress Note Date: 04/15/21 71 this old female with past medical history of asthma/COPD, heart failure, coronary artery disease status post CABG, hypertension, hyperlipidemia, diabetes mellitus. She is a patient of Dr. Zelaya Patient could not provide information so it was obtained from staff, medical records. Patient symptoms started 7 PM last night with acute confusion and weakness in both legs, patient felt to have left sided weakness. And concern for expressive aphasia. Others some reports of transient improvement back to normal for short time on admission before her symptoms back again. Patient was found to be a candidate and after obtaining consent from daughter it was administered last night. Blood pressure controlled with Cardizem drip. And repeat CAT scan showed no intracranial hemorrhage. She was admitted to the intensive care unit. This morning patient is fully awake and in appropriate however she is confused to time, place and person. She only knows she is in the hospital but culture which Hospital at's. Is any specific symptoms. The last thing she remembers that she went to the bathroom. She denies previous history of stroke or TIA before. No chest pain or dyspnea. No abdominal complaint. No urinary complaints like no dysuria or change in frequency or urgency this morning she has mild weakness on the left leg and left arm compared to the right side. And her face deviated to the left side Patient presents because of acute or sent off, fusion and inability to talk or ambulate. Patient suspected to have expressive aphasia up on admission Vitas looks stable, she is mildly tachypneic with a breathing rate 15-24. Afebrile. She is saturating 90-95% on 2 L oxygen nasal cannula. CBC is unremarkable . INR is normal at 0.9. BMP and liver enzymes are unremarkable as well. Urinalysis is suspicious for infection. Urine drug screen is negative. CT of the brain: No acute abnormality CTA of the brain showing 50% stenosis of the right internal carotid artery and there is 25% stenosis of the distal right common carotid artery. No evidence of significant stenosis on the left. Repeat CAT scan of the brain this morning showing still no acute intracranial abnormality with no change. Chest x-ray showing some congestive heart failure with increased congestion. Echocardiogram from 04/2020: Ejection fraction 55-60% with moderate left ventricular hypertrophy. With mild to moderate mitral stenosis The emergency room patient received TPA. Also Keppra and Ativan 1 for suspected seizure. Pulmonary/critical care team and neurology were consulted Objective - Vital Signs Vital signs: Vital Signs Temp 99.5 F 04/15/21 08:00 Pulse 64 04/15/21 11:00 Resp 13 04/15/21 11:00 BP 128/62 04/15/21 11:00 Pulse Ox 90 L 04/15/21 10:00 Intake & Output 04/14/21 04/15/21 04/15/21 18:59 06:59 18:59 Intake Total 360 340 Output Total 340 500 400 Balance 20 500 -60 Weight 68.039 kg 91.8 kg Intake: Intake, IV Titration 100 Amount cefTRIAXone 1 gm In 100 Sodium Chloride 0.9% 50 ml @ 100 mls/hr IVPB Q24HR [facility] Rx#:[id number] Oral 360 240 Output: Urine 340 500 400 Other: Voiding Method Bedside Commode Bedside Commode Bedside Commode External Catheter # Voids 1 - Exam -GENERAL: The patient is confused, and agitated today. Well developed, well nourished. HEENT: Pupils are round and equally reacting to light. EOMI. No scleral icterus. No conjunctival pallor. Normocephalic, atraumatic. No pharyngeal erythema. No thyromegaly. CARDIOVASCULAR: S1 and S2 present. No murmurs, rubs, or gallops. PULMONARY: Chest is clear to auscultation, no wheezing or crackles. ABDOMEN: Soft, nontender, nondistended, normoactive bowel sounds. No palpable organomegaly. MUSCULOSKELETAL: No joint swelling or deformity. EXTREMITIES: No cyanosis, clubbing, or pedal edema. -NEUROLOGICAL: Cranial nerves are grossly intact. Mild left hemiparesis in the left arm and leg SKIN: No rashes. No petechiae - Labs CBC & Chem 7: 04/16/21 07:16 04/16/21 07:16 Labs: Abnormal Lab Results - Last 24 Hours (Table) 04/14/21 04/14/21 04/14/21 Range/Units 12:18 13:37 18:06 WBC (3.8-10.6) k/uL Neutrophils # (1.3-7.7) k/uL Sodium (137-145) mmol/L Glucose (74-99) mg/dL POC Glucose (mg/dL) 277 H 274 H (75-99) mg/dL Urine Appearance Cloudy H (Clear) Urine Protein 2+ H (Negative) Urine Glucose (UA) 4+ H (Negative) Urine Ketones Trace H (Negative) Urine Blood Large H (Negative) Urine RBC 159 H (0-5) /hpf Urine WBC 7 H (0-5) /hpf Amorphous Sediment Rare H (None) /hpf Hyaline Casts 7 H (0-2) /lpf Urine Mucus Rare H (None) /hpf 04/14/21 04/15/21 04/15/21 Range/Units 20:37 03:51 03:51 WBC 10.8 H (3.8-10.6) k/uL Neutrophils # 7.8 H (1.3-7.7) k/uL Sodium 135 L (137-145) mmol/L Glucose 170 H (74-99) mg/dL POC Glucose (mg/dL) 233 H (75-99) mg/dL Urine Appearance (Clear) Urine Protein (Negative) Urine Glucose (UA) (Negative) Urine Ketones (Negative) Urine Blood (Negative) Urine RBC (0-5) /hpf Urine WBC (0-5) /hpf Amorphous Sediment (None) /hpf Hyaline Casts (0-2) /lpf Urine Mucus (None) /hpf 04/15/21 04/15/21 Range/Units 06:49 11:08 WBC (3.8-10.6) k/uL Neutrophils # (1.3-7.7) k/uL Sodium (137-145) mmol/L Glucose (74-99) mg/dL POC Glucose (mg/dL) 156 H 148 H (75-99) mg/dL Urine Appearance (Clear) Urine Protein (Negative) Urine Glucose (UA) (Negative) Urine Ketones (Negative) Urine Blood (Negative) Urine RBC (0-5) /hpf Urine WBC (0-5) /hpf Amorphous Sediment (None) /hpf Hyaline Casts (0-2) /lpf Urine Mucus (None) /hpf Microbiology - Last 24 Hours (Table) 04/12/21 20:40 Blood Culture - Preliminary Blood No Growth after 48 hours 04/12/21 21:00 Blood Culture - Preliminary Blood No Growth after 48 hours Assessment and Plan Assessment: Acute stroke, with confusion, expressive aphasia and possible leg weakness. Status post TPA on 04/12. Seizure is less likely. Improved significantly still have mild left hemiparesis anticipated to the left. 50% stenosis of the origin of the right internal carotid artery. No need for surgical intervention Acute urinary tract infection Metabolic encephalopathy secondary to above Moderate to severe tricuspid regurgitation and pulmonary hypertension area and mild to moderate mitral stenosis Diabetes mellitus, with hyperglycemia. Uncontrolled on admission globin A1c 9.4% Hypertension Hyperlipidemia History of coronary artery disease status post CABG History of asthma/COPD, no acute exacerbation. Plan: This is a pleasant 71 years old female who presents because of stroke. Continue with ICU management. Pulmonary/critical care consult Neurology was consulted. Patient currently not on aspirin or brillinta Start ceftriaxone follow-up urine culture Deep sitter at bedside. 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 Continue same treatment. Continue with symptomatic treatment. Resume home medication. Monitor lytes and vitals. DVT and GI prophylaxis. Further recommendations depends on the clinical course of the patient DVT prophylaxis: Subcutaneous heparin currently. GI Prophylaxis: Pepcid Prognosis is guarded
[2021-04-16 11:31] LABS: Glucose,Whole Blood 205 mg/dL (75-99)
[2021-04-16] MEDS: SYMBICORT 160-4.5 MCG INHALER INHALATION SCH ×2 (12:16→20:37)
[2021-04-16 12:47] LABS: Folate, Serum 11.2 ng/mL
[2021-04-16 16:42] LABS: Glucose,Whole Blood 271 mg/dL (75-99)
--- NOTE | 2021-04-16 17:20 | P.PN ---
Subjective Progress Note Date: 04/16/21 Principal diagnosis: Acute ischemic stroke; status post TPA Right ICA 50% stenosis UTI Metabolic encephalopathy possibly related to UTI 71 this old female with past medical history of asthma/COPD, heart failure, coronary artery disease status post CABG, hypertension, hyperlipidemia, diabetes mellitus. She is a patient of Dr. Zelaya Patient could not provide information so it was obtained from staff, medical records. Patient symptoms started 7 PM last night with acute confusion and weakness in both legs, patient felt to have left sided weakness. And concern for expressive aphasia. Others some reports of transient improvement back to normal for short time on admission before her symptoms back again. Patient was found to be a candidate and after obtaining consent from daughter it was administered last night. Blood pressure controlled with Cardizem drip. And repeat CAT scan showed no intracranial hemorrhage. [facility] This morning patient is fully awake and in appropriate however she is confused to time, place and person. She only knows she is in the hospital but culture which Hospital at's. Is any specific symptoms. The last thing she remembers that she went to the bathroom. She denies previous history of stroke or TIA before. No chest pain or dyspnea. No abdominal complaint. No urinary complaints like no dysuria or change in frequency or urgency this morning she has mild weakness on the left leg and left arm compared to the right side. And her face deviated to the left side Patient presents because of acute or sent off, fusion and inability to talk or ambulate. Patient suspected to have expressive aphasia up on admission Vitas looks stable, she is mildly tachypneic with a breathing rate 15-24. Afebrile. She is saturating 90-95% on 2 L oxygen nasal cannula. CBC is unremarkable . INR is normal at 0.9. BMP and liver enzymes are unremarkable as well. Urinalysis is suspicious for infection. Urine drug screen is negative. CT of the brain: No acute abnormality CTA of the brain showing 50% stenosis of the right internal carotid artery and there is 25% stenosis of the distal right common carotid artery. No evidence of significant stenosis on the left. Repeat CAT scan of the brain this morning showing still no acute intracranial abnormality with no change. Chest x-ray showing some congestive heart failure with increased congestion. Echocardiogram from 04/2020: Ejection fraction 55-60% with moderate left ventricular hypertrophy. With mild to moderate mitral stenosis The emergency room patient received TPA. Also Keppra and Ativan 1 for suspected seizure. Pulmonary/critical care team and neurology were consulted 04/16/2021 patient is seen in follow-up in intensive care unit. Resting comfortably; easily arousable. 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 She is in sinus mechanism with a rate of 66 BPM, she is on room air with a pulse ox of 94% Currently it is 136/93, she has had no fever or chills overnight. Patient remains on Rocephin for empiric antibiotic coverage for UTI; urine cultures are pending. Patient is tolerating regular diet. Today's labs have been reviewed, with blood cell count is 12.1, hemoglobin is 12.1, serum sodium is 134, the rest of luis antonio ctrolytes are unremarkable, BUN is 18 creatinine 0.89. Locomotive Firer/Fireman service is following and recommending to continue with current antibiotics till final cultures aren't available; patient will be monitored closely neurologically; plan to increase activity; patient is stable to be transferred out to selective care unit Objective - Vital Signs Vital signs: Vital Signs Temp 98.4 F 04/16/21 08:00 Pulse 63 04/16/21 08:00 Resp 23 04/16/21 08:00 BP 155/73 04/16/21 08:00 Pulse Ox 97 04/16/21 08:00 Intake & Output 04/15/21 04/16/21 04/16/21 18:59 06:59 18:59 Intake Total 760 50 Output Total 400 150 Balance 360 -100 Weight 91.8 kg 91.7 kg Intake: IV 50 cefTRIAXone 1 gm In 50 Sodium Chloride 0.9% 50 ml @ 100 mls/hr IVPB Q24HR [facility] Rx#:[id number] Intake, IV Titration 100 Amount cefTRIAXone 1 gm In 100 Sodium Chloride 0.9% 50 ml @ 100 mls/hr IVPB Q24HR [facility] Rx#:[id number] Oral 660 Output: Urine 400 150 Other: Voiding Method Incontinent Incontinent # Voids 1 2 - Exam -GENERAL: The patient is confused, and agitated today. Well developed, well nourished. HEENT: Pupils are round and equally reacting to light. EOMI. No scleral icterus. No conjunctival pallor. Normocephalic, atraumatic. No pharyngeal erythema. No thyromegaly. CARDIOVASCULAR: S1 and S2 present. No murmurs, rubs, or gallops. PULMONARY: Chest is clear to auscultation, no wheezing or crackles. ABDOMEN: Soft, nontender, nondistended, normoactive bowel sounds. No palpable organomegaly. MUSCULOSKELETAL: No joint swelling or deformity. EXTREMITIES: No cyanosis, clubbing, or pedal edema. -NEUROLOGICAL: Cranial nerves are grossly intact. Mild left hemiparesis in the left arm and leg SKIN: No rashes. No petechiae - Labs CBC & Chem 7: 04/16/21 07:16 04/16/21 07:16 Labs: Abnormal Lab Results - Last 24 Hours (Table) 04/15/21 04/15/21 04/15/21 Range/Units 11:08 16:46 21:29 WBC (3.8-10.6) k/uL RBC (3.80-5.40) m/uL Neutrophils # (1.3-7.7) k/uL Monocytes # (0-1.0) k/uL Sodium (137-145) mmol/L BUN (7-17) mg/dL Glucose (74-99) mg/dL POC Glucose (mg/dL) 148 H 271 H 248 H (75-99) mg/dL 04/16/21 04/16/21 04/16/21 Range/Units 07:10 07:16 07:16 WBC 12.1 H (3.8-10.6) k/uL RBC 3.74 L (3.80-5.40) m/uL Neutrophils # 9.1 H (1.3-7.7) k/uL Monocytes # 1.1 H (0-1.0) k/uL Sodium 134 L (137-145) mmol/L BUN 18 H (7-17) mg/dL Glucose 237 H (74-99) mg/dL POC Glucose (mg/dL) 233 H (75-99) mg/dL 04/16/21 Range/Units 09:16 WBC (3.8-10.6) k/uL RBC (3.80-5.40) m/uL Neutrophils # (1.3-7.7) k/uL Monocytes # (0-1.0) k/uL Sodium (137-145) mmol/L BUN (7-17) mg/dL Glucose (74-99) mg/dL POC Glucose (mg/dL) 152 H (75-99) mg/dL Microbiology - Last 24 Hours (Table) 04/12/21 21:00 Blood Culture - Preliminary Blood No Growth after 72 hours 04/12/21 20:40 Blood Culture - Preliminary Blood No Growth after 72 hours 04/15/21 09:15 Urine Culture - Preliminary Urine,Catheterized Assessment and Plan Assessment: Acute stroke, with confusion, expressive aphasia and possible leg weakness. Status post TPA on 04/12. Seizure is less likely. Improved significantly still have mild left hemiparesis anticipated to the left. 50% stenosis of the origin of the right internal carotid artery. No need for surgical intervention Acute urinary tract infection Metabolic encephalopathy secondary to above Moderate to severe tricuspid regurgitation and pulmonary hypertension area and mild to moderate mitral stenosis Diabetes mellitus, with hyperglycemia. Uncontrolled on admission globin A1c 9.4% Hypertension Hyperlipidemia History of coronary artery disease status post CABG History of asthma/COPD, no acute exacerbation. Plan: This is a pleasant 71 years old female who presents because of stroke. Continue with ICU management. Pulmonary/critical care consult Neurology was consulted. Patient currently not on aspirin or brillinta Start ceftriaxone follow-up urine culture Deep sitter at bedside. sorting livestock worker consult Labs and medication were reviewed.. Continue same treatment. Continue with symptomatic treatment. Resume home medication. Monitor lytes and vitals. DVT and GI prophylaxis. Further recommendations depends on the clinical course of the patient DVT prophylaxis: Subcutaneous heparin currently. GI Prophylaxis: Pepcid Prognosis is guarded
[2021-04-16 20:57] LABS: Glucose,Whole Blood 252 mg/dL (75-99)
[2021-04-16] MEDS: QUEtiapine 25 MG TAB PO SCH (21:30)
[2021-04-16] MEDS: ATORVASTATIN 80 MG TAB PO SCH (21:30)
[2021-04-17 04:38] LABS: Basophils # (A) 0.1 k/uL (0-0.2); Basophils % (A) 1 %; Eosinophils # (A) 0.4 k/uL (0-0.7); Eosinophils % (A) 4 %; HCT 35.9 % (34.0-46.0); HGB 12.2 gm/dL (11.4-16.0); Lymphocytes # (A) 1.6 k/uL (1.0-4.8); Lymphocytes % (A) 16 %; MCH 32.6 pg (25.0-35.0); MCHC 34.1 g/dL (31.0-37.0); MCV 95.6 fL (80.0-100.0); Mean Platelet Volume 7.2; Monocytes # (A) 0.9 k/uL (0-1.0); Monocytes % (A) 8 %; Neutrophils % (A) 68 %; Platelet Count 332 k/uL (150-450); RBC 3.76 m/uL (3.80-5.40); WBC 10.3 k/uL (3.8-10.6)
[2021-04-17 04:47] LABS: Calcium 9.1 mg/dL (8.4-10.2); Magnesium 1.9 mg/dL (1.6-2.3); Potassium 3.7 mmol/L (3.5-5.1)
[2021-04-17 07:04] LABS: Glucose,Whole Blood 101 mg/dL (75-99)
[2021-04-17] MEDS ORDERED: Potassium Replacement Protocol 1 EACH MISC MISCELLANE PRN (07:35)
[2021-04-17] MEDS ORDERED: POTASSIUM CHLORIDE ER 20 MEQ TAB.ER PO SCH (08:00)
[2021-04-17] MEDS: INSULIN ASPART (NovoLOG) 100 UNIT/ML VIAL SQ SCH ×4 (08:21→20:56)
[2021-04-17] MEDS: TICAGRELOR 90 MG TAB PO SCH ×2 (08:30→20:57)
[2021-04-17] MEDS: HEPARIN SODIUM,PORCINE/PF 5,000 UNIT/0.5 ML SYRINGE SQ SCH ×2 (08:30→20:57)
[2021-04-17] MEDS: ASPIRIN 81 MG PO SCH (08:30)
[2021-04-17] MEDS: LOSARTAN 50 MG TAB PO SCH (08:31)
[2021-04-17] MEDS: METOPROLOL TARTRATE 25 MG TAB PO SCH ×2 (08:31→20:57)
[2021-04-17] MEDS: FAMOTIDINE 20 MG TAB PO SCH ×2 (08:31→20:57)
--- NOTE | 2021-04-17 08:53 | P.PN ---
Subjective Progress Note Date: 04/17/21 This is a 71-year-old white female patient with extensive medical history including COPD, hypertension, hyperlipidemia, previous history of myocardial infarction, coronary artery disease with previous stenting and bypass grafting in 2017, diabetes mellitus, former smoker, who presented to the emergency department on 04/12/2021 by EMS for evaluation of altered mental status, and aphasia. Patient states she laid down to take a nap yesterday in the afternoon, and she woke up 2 hours later and her daughter noticed that she was acutely confused, was difficult to understand, and patient was not able to follow basic commands. She also seemed to have left lower extremity weakness. MRSA alerted the EMS, and when the EMS arrived they noted that patient's symptoms completely resolved however the symptoms shortly came back and she was brought to the emergency department for further evaluation and treatment. Patient was found to be TPA candidate. CT imaging of the head without contrast revealed cerebral atrophy and no acute intracranial abnormality, patient's blood glucose was 161. Urine drug screen was negative, EKG showed no acute changes or signs of acute ischemia. Patient's chest x-ray revealed no acute cardiopulmonary process. Code stroke was alerted, TPA was recommended and administered. Neurology interventionalist also recommended 1 g of IV Keppra for possible anticipated seizure. CT angiography of the head and neck showed approximately 50% stenosis in the right ICA, 25% stenosis in the distal RCA, no evidence of any significant stenosis on the left side, no significant intracranial angiographic abnormality. Patient was then transferred to the intensive care unit for advanced neurological monitoring following TPA administration, follow-up brain CT without contrast on 04/12/2021 at 2300 showed no acute intracranial abnormality. This morning patient is seen in intensive care unit. She is awake and alert, oriented to person and place. She seems to be disoriented to time. She appears to be in no acute distress, she is generally weak, still has a residual left si ded weakness, however her speech has dramatically improved, and seems to be speaking normally. She denies any respiratory difficulty, lung sounds reveal just a few basilar crackles at the right base, no wheezing, no cough, no chest pain, blood pressures 125/79, and she is in sinus mechanism with a rate of 61 BPM, she has been afebrile. She did require nicardipine infusion yesterday for elevated blood pressures which is currently discontinued. Systolic pressure is 120-140 and her diastolic in the 60s and 70s. Patient was able to sit up on the edge of the bed with assistance, she is generally weak, requiring extensive assistance with 2 people assist. This morning echocardiogram is pending, carotid Doppler has been completed, awaiting results of radiology report. MRI of the brain is pending for today, currently on 0.9 normal saline at 50 ML per hour, no other drips, we will restart her high-dose Lipitor 80 mg at bedtime, she is on Pepcid for GI prophylaxis, but sugar monitoring every 6 hours, her last blood sugar is 134 this morning. Morning's labs have been reviewed, showing a white count of 10.5, hemoglobin of 13, electrolytes and renal profile are within normal limits, troponin was negative 1, at less than 0.012, ammonia level was less than 9, LFTs were within normal limits, LDL was 62, HDL was 34, total cholesterol of 112, triglycerides is 77. Urinalysis showed cloudy urine, with 2+ protein, moderate loose, but no clear evidence of infection. On 04/14/2021 patient seen in follow-up in intensive care unit, she is awake and alert, oriented 3, her speech pattern seems to be back to baseline during our evaluation, however per nursing staff patient at times continues to be mixing up her words. No new weakness, and her strength in bilateral lower extremities is improving, and patient was able to get up out of bed basically unassisted on today's evaluation. She is oriented to person and place today. Denies any acute distress, no facial asymmetry noted on today's exam. Brain MRI was completed showing white matter signal changes around the lateral ventricles that are nonspecific and that could relate to microvascular ischemia. No evidence of cortical infarct. Carotid Doppler was completed showing extensive bilateral calcified plaque without definite significant hemodynamic stenosis. Echocardiogram showed mild concentric LVH, and EF of 50-55%. Other to severe pulmonary hypertension with a PA pressure of 54.2 mmHg, moderate to severe tricuspid regurgitation. Mild mitral regurg. Patient has been noted to be very restless, and confused at times. Wall catheter has been discontinued, urine was noted to be quite turbid in appearance, urinalysis was sent, however in view of increased confusion and quite turbid appearance of the urine patient was empirically started on Rocephin. Urine culture is pending, patient is status post TPA, she was started on aspirin and [place] time last night at 2100. Neurology is closely following. She was also noted to have elevated blood pressures systolic in the 190, metoprolol 25 mg twice daily was started, in addition to losartan home dose 100 mg once daily. Patient was given 1 dose of hydralazine 10 mg. Blood pressure improved in the afternoon, and is down to 149/62. Patient has had no fever or chills. Patient is on subcu heparin for DVT prophylaxis, she is on Pepcid for GI prophylaxis, her blood sugars are being monitored before each meal, blood sugars have been running in the 192-77 range, Levemir was added day 22 units twice daily. Patient normally takes Levemir 44 units twice daily at home. On April 15, 2021 patient seen in follow-up in the intensive care unit, patient is awake and alert, oriented 3 at the moment, yesterday she had intermittent confusion, restlessness and agitation requiring placement of a corporate safety director at the bedside, she has received Seroquel. Repeat brain CT was completed showing no acute intracranial abnormality. There is stable moderate bifrontal atrophy and mild central cerebral volume loss. Mild burden of chronic small vessel ischemic disease. Patient had a low-grade fever this morning, with a temp of 100.5F, urinalysis was repeated again showing cloudy specimen, with 2+ protein, 4+ glucose, trace ketones, increased red blood cells, 7 of white blood cells, and culture has been sent and pending at this time, patient is empirically covered with Rocephin, blood cultures have been sent this morning. She denies any worsening shortness of breath, no cough. Her chest x-ray showed some pulmonary vascular congestion, no hilar masses, mediastinum was normal. Today's labs have been reviewed showing white blood cell count of 10.8, hemoglobin of 12.2, sodium is 135 quite interested electrolytes and renal profile were within normal limits. No abdominal pain, nausea or vomiting. Neurologically patien's speech is back to baseline, normal, no aphasia noted on today's exam, strength seems to be equal bilaterally. No new weakness. On today's evaluation on 04/16/2021 patient is seen in follow-up in intensive care unit. She is currently sleeping, but easily arouses to verbal stimuli, she is oriented to place and the year, she disoriented to month. She did have an episode of restlessness last night, patient got up unassisted and went to the bathroom. No falls, no injuries. She was redirected, she remains on Seroquel 25 mg twice daily. 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 She is in sinus mechanism with a rate of 66 BPM, she is on room air with a pulse ox of 94%, she is breathing comfortably, lung sounds are clear, blood pressure is stable. Currently it is 136/93, she has had no fever or chills overnight. She remains on Rocephin for empiric antibiotic coverage, her urine culture is still pending, blood cultures have been sent, are pending at this time. Abdomen is soft, nontender, no nausea vomiting or diarrhea. Patient is tolerating regular diet. Today's labs have been reviewed, with blood cell count is 12.1, hemoglobin is 12.1, serum sodium is 134, the rest of electrolytes are unremarkable, BUN is 18 creatinine 0.89. 04/17/2021, the patient is doing well. She is verbal. She is moving all 4 extremities. No focal neurological deficits. No confusion. Awake and oriented 3. She remains on Seroquel 25 mg by mouth twice a day for some delirium/confusion. This has recovered. Cardiac rhythm is sinus. She has gram-negative bacillus in the urine and the patient is currently on IV Rocephin. Blood work from today shows a white cell count of 10.3 with a hemoglobin of 12. Normal renal function. Normal electrolytes. No other significant events over the past 24 hours. She is currently on room air oxygen. 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 She is on aspirin and a Brilinta as antiplatelet agents she is also on Levemir insulin 22 units twice a day and a sliding scale coverage. Objective - Vital Signs Vital signs: Vital Signs Temp 98.9 F 04/17/21 08:00 Pulse 69 04/17/21 08:00 Resp 16 04/17/21 08:00 BP 109/53 04/17/21 08:00 Pulse Ox 96 04/17/21 08:00 Intake & Output 04/16/21 04/17/21 04/17/21 18:59 06:59 18:59 Intake Total 50 Output Total 450 400 Balance -400 -400 Weight 92.2 kg Intake: IV 50 cefTRIAXone 1 gm In 50 Sodium Chloride 0.9% 50 ml @ 100 mls/hr IVPB Q24HR [facility] Rx#:[id number] Output: Urine 450 400 Other: Voiding Method Bedside Commode Bedside Commode - Exam GENERAL EXAM: Alert, very pleasant, 71-year-old white female, on RA oxygen and pulse ox of 99%, comfortable in no apparent distress. Patient is oriented to person and place, and the year, did not know the month. Does have intermittent periods of confusion HEAD: Normocephalic/atraumatic. EYES: Normal reaction of pupils, equal size. Conjunctiva pink, sclera white. NOSE: Clear with pink turbinates. THROAT: No erythema or exudates. NECK: No masses, no JVD, no thyroid enlargement, no adenopathy. CHEST: No chest wall deformity. Symmetrical expansion. LUNGS: Equal air entry with no crackles, wheeze, rhonchi or dullness. CVS: Regular rate and rhythm, normal S1 and S2, no gallops, no murmurs, no rubs ABDOMEN: Soft, nontender. No hepatosplenomegaly, normal bowel sounds, no guarding or rigidity. EXTREMITIES: No clubbing, no edema, no cyanosis, 2+ pulses and upper and lower extremities. MUSCULOSKELETAL: Muscle strength and tone normal. SPINE: No scoliosis or deformity SKIN: No rashes CENTRAL NERVOUS SYSTEM: Alert and oriented -2. patient still has left security vehicle patrol officer weakness compared to the right hand PSYCHIATRIC: Alert and oriented -2. Appropriate affect. Intact judgment and insight. - Labs CBC & Chem 7: 04/17/21 04:05 04/17/21 04:05 Labs: Abnormal Lab Results - Last 24 Hours (Table) 04/16/21 04/16/21 04/16/21 Range/Units 09:16 11:30 16:41 RBC (3.80-5.40) m/uL Sodium (137-145) mmol/L BUN (7-17) mg/dL Glucose (74-99) mg/dL POC Glucose (mg/dL) 152 H 205 H 271 H (75-99) mg/dL 0804/17/21 04/17/21 Range/Units 20:55 04:05 04:05 RBC 3.76 L (3.80-5.40) m/uL Sodium 135 L (137-145) mmol/L BUN 20 H (7-17) mg/dL Glucose 113 H (74-99) mg/dL POC Glucose (mg/dL) 252 H (75-99) mg/dL 04/17/21 Range/Units 07:03 RBC (3.80-5.40) m/uL Sodium (137-145) mmol/L BUN (7-17) mg/dL Glucose (74-99) mg/dL POC Glucose (mg/dL) 101 H (75-99) mg/dL Microbiology - Last 24 Hours (Table) 04/12/21 21:00 Blood Culture - Preliminary Blood No Growth after 96 hours 04/12/21 20:40 Blood Culture - Preliminary Blood No Growth after 96 hours 04/15/21 20:37 Blood Culture - Preliminary Blood No Growth after 24 hours 04/15/21 20:57 Blood Culture - Preliminary Blood No Growth after 24 hours 04/15/21 09:15 Urine Culture - Preliminary Urine,Catheterized Gram Neg Bacilli Assessment and Plan Plan: #1. Acute ischemic stroke status post TPA, patient presented with symptoms of aphasia, left leg weakness, and altered mental status. Aphasia has improved, and the patient was having episodes of confusion. Her mental status has improved. She does have some residual weakness on the left. She is currently on a combination of aspirin and Brilinta. #2. Hypertension #3. Hyperlipidemia #4. History of coronary artery disease status post stenting and previous coronary artery bypass grafting in 2017 #5. History of COPD #6. 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 Diabetes mellitus type 2 #8. Chronic hypoxic respiratory failure on home oxygen #9. Low-grade fever, rule out possibility of sepsis, possibly related to ur inary tract infection and negative bacillus and the patient is currently on IV Rocephin. Plan: Continue aspirin and Brilinta Physical therapy and increased mobility and assess the patient's ability to walk and ambulate today. She may be able to chest also the intensive care unit Continue Seroquel 25 mg twice daily Continue close neurological monitoring Blood pressure stable Increase activity as tolerated maintain safety precautions Stable for transfer out of intensive care [facility]
[2021-04-17] MEDS: SYMBICORT 160-4.5 MCG INHALER INHALATION SCH ×2 (09:18→20:29)
[2021-04-17] MEDS: INSULIN DETEMIR (LEVEMIR) 100 UNIT/ML SYR SQ SCH ×2 (09:50→20:57)
[2021-04-17 11:45] LABS: Glucose,Whole Blood 225 mg/dL (75-99)
[2021-04-17] MEDS: ERTAPENEM 1 GM in SODIUM CHLORIDE 0.9% 50 ML IVPB SCH (13:04)
[2021-04-17] MEDS: ACETAMINOPHEN TAB 325 MG TAB PO PRN (13:12)
--- NOTE | 2021-04-17 15:56 | P.PN ---
Subjective Progress Note Date: 04/17/21 Principal diagnosis: Acute ischemic stroke; status post TPA Right ICA 50% stenosis UTI Metabolic encephalopathy possibly related to UTI 71 this old female with past medical history of asthma/COPD, heart failure, coronary artery disease status post CABG, hypertension, hyperlipidemia, diabetes mellitus. She is a patient of Dr. Zelaya Patient could not provide information so it was obtained from staff, medical records. Patient symptoms started 7 PM last night with acute confusion and weakness in both legs, patient felt to have left sided weakness. And concern for expressive aphasia. Others some reports of transient improvement back to normal for short time on admission before her symptoms back again. Patient was found to be a candidate and after obtaining consent from daughter it was administered last night. Blood pressure controlled with Cardizem drip. And repeat CAT scan showed no intracranial hemorrhage. [facility] This morning patient is fully awake and in appropriate however she is confused to time, place and person. She only knows she is in the hospital but culture which Hospital at's. Is any specific symptoms. The last thing she remembers that she went to the bathroom. She denies previous history of stroke or TIA before. No chest pain or dyspnea. No abdominal complaint. No urinary complaints like no dysuria or change in frequency or urgency this morning she has mild weakness on the left leg and left arm compared to the right side. And her face deviated to the left side Patient presents because of acute or sent off, fusion and inability to talk or ambulate. Patient suspected to have expressive aphasia up on admission Vitas looks stable, she is mildly tachypneic with a breathing rate 15-24. Afebrile. She is saturating 90-95% on 2 L oxygen nasal cannula. CBC is unremarkable . INR is normal at 0.9. BMP and liver enzymes are unremarkable as well. Urinalysis is suspicious for infection. Urine drug screen is negative. CT of the brain: No acute abnormality CTA of the brain showing 50% stenosis of the right internal carotid artery and there is 25% stenosis of the distal right common carotid artery. No evidence of significant stenosis on the left. Repeat CAT scan of the brain this morning showing still no acute intracranial abnormality with no change. Chest x-ray showing some congestive heart failure with increased congestion. Echocardiogram from 04/2020: Ejection fraction 55-60% with moderate left ventricular hypertrophy. With mild to moderate mitral stenosis The emergency room patient received TPA. Also Keppra and Ativan 1 for suspected seizure. Pulmonary/critical care team and neurology were consulted 04/16/2021 patient is seen in follow-up in intensive care unit. Resting comfortably; easily arousable. 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 She is in sinus mechanism with a rate of 66 BPM, she is on room air with a pulse ox of 94% Currently it is 136/93, she has had no fever or chills overnight. Patient remains on Rocephin for empiric antibiotic coverage for UTI; urine cultures are pending. Patient is tolerating regular diet. Today's labs have been reviewed, with blood cell count is 12.1, hemoglobin is 12.1, serum sodium is 134, the rest of luis antonio ctrolytes are unremarkable, BUN is 18 creatinine 0.89. Process Control Technician service is following and recommending to continue with current antibiotics till final cultures aren't available; patient will be monitored closely neurologically; plan to increase activity; patient is stable to be transferred out to selective care unit 04/17/2021, the patient is seen and evaluated at bedside; remains in ICU as selective care overflow. She is verbal. She is moving all 4 extremities. No focal neurological deficits. gram-negative bacillus in the urine and the patient is currently on IV Rocephin. Blood work from today shows a white cell count of 10.3 with a hemoglobin of 12. Normal renal function. Normal electrolytes. No other significant events over the past 24 hours. She is currently on room air oxygen. She is on aspirin and a Brilinta as antiplatelet agents she is also on Levemir insulin 22 units twice a day and a sliding scale coverage. Objective - Vital Signs Vital signs: Vital Signs Temp 98.9 F 04/17/21 08:00 Pulse 69 04/17/21 08:00 Resp 16 04/17/21 08:00 BP 109/53 04/17/21 08:00 Pulse Ox 96 04/17/21 08:00 Intake & Output 04/16/21 04/17/21 04/17/21 18:59 06:59 18:59 Intake Total 50 Output Total 450 400 Balance -400 -400 Weight 92.2 kg Intake: IV 50 cefTRIAXone 1 gm In 50 Sodium Chloride 0.9% 50 ml @ 100 mls/hr IVPB Q24HR [facility] Rx#:[id number] Output: Urine 450 400 Other: Voiding Method Bedside Commode Bedside Commode - Exam -GENERAL: The patient is confused, and agitated today. Well developed, well nourished. HEENT: Pupils are round and equally reacting to light. EOMI. No scleral icterus. No conjunctival pallor. Normocephalic, atraumatic. No pharyngeal erythema. No thyromegaly. CARDIOVASCULAR: S1 and S2 present. No murmurs, rubs, or gallops. PULMONARY: Chest is clear to auscultation, no wheezing or crackles. ABDOMEN: Soft, nontender, nondistended, normoactive bowel sounds. No palpable organomegaly. MUSCULOSKELETAL: No joint swelling or deformity. EXTREMITIES: No cyanosis, clubbing, or pedal edema. -NEUROLOGICAL: Cranial nerves are grossly intact. Mild left hemiparesis in the left arm and leg SKIN: No rashes. No petechiae - Labs CBC & Chem 7: 04/17/21 04:05 04/17/21 04:05 Labs: Abnormal Lab Results - Last 24 Hours (Table) 04/16/21 04/16/21 04/16/21 Range/Units 11:30 16:41 20:55 RBC (3.80-5.40) m/uL Sodium (137-145) mmol/L BUN (7-17) mg/dL Glucose (74-99) mg/dL POC Glucose (mg/dL) 205 H 271 H 252 H (75-99) mg/dL 04/17/21 04/17/21 04/17/21 Range/Units 04:05 04:05 07:03 RBC 3.76 L (3.80-5.40) m/uL Sodium 135 L (137-145) mmol/L BUN 20 H (7-17) mg/dL Glucose 113 H (74-99) mg/dL POC Glucose (mg/dL) 101 H (75-99) mg/dL Microbiology - Last 24 Hours (Table) 04/12/21 21:00 Blood Culture - Preliminary Blood No Growth after 96 hours 04/12/21 20:40 Blood Culture - Preliminary Blood No Growth after 96 hours 04/15/21 20:37 Blood Culture - Preliminary Blood No Growth after 24 hours 04/15/21 20:57 Blood Culture - Preliminary Blood No Growth after 24 hours 04/15/21 09:15 Urine Culture - Preliminary Urine,Catheterized Gram Neg Bacilli Assessment and Plan Assessment: Acute stroke, with confusion, expressive aphasia and possible leg weakness. Status post TPA on 04/12. Seizure is less likely. Improved significantly still have mild left hemiparesis anticipated to the left. 50% stenosis of the origin of the right internal carotid artery. No need for surgical intervention Acute urinary tract infection Metabolic encephalopathy secondary to above Moderate to severe tricuspid regurgitation and pulmonary hypertension area and mild to moderate mitral stenosis Diabetes mellitus, with hyperglycemia. Uncontrolled on admission globin A1c 9.4% Hypertension Hyperlipidemia History of coronary artery disease status post CABG History of asthma/COPD, no acute exacerbation. Plan: This is a pleasant 71 years old female who presents because of stroke. Continue with ICU management. Pulmonary/critical care consult Neurology was consulted. Patient currently not on aspirin or brillinta Start ceftriaxone follow-up urine culture Deep sitter at bedside. 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 Continue same treatment. Continue with symptomatic treatment. Resume home medication. Monitor lytes and vitals. DVT and GI prophylaxis. Further recommendations depends on the clinical course of the patient DVT prophylaxis: Subcutaneous heparin currently. GI Prophylaxis: Pepcid Prognosis is guarded
[2021-04-17 17:06] LABS: Glucose,Whole Blood 201 mg/dL (75-99)
[2021-04-17 20:41] LABS: Glucose,Whole Blood 219 mg/dL (75-99)
[2021-04-17] MEDS: ATORVASTATIN 80 MG TAB PO SCH (20:57)
[2021-04-17] MEDS: QUEtiapine 25 MG TAB PO SCH (20:57)
[2021-04-18] MEDS: INSULIN ASPART (NovoLOG) 100 UNIT/ML VIAL SQ SCH ×4 (07:06→20:19)
[2021-04-18 07:07] LABS: Glucose,Whole Blood 84 mg/dL (75-99)
[2021-04-18] MEDS: SYMBICORT 160-4.5 MCG INHALER INHALATION SCH ×2 (07:58→19:12)
[2021-04-18] MEDS: FAMOTIDINE 20 MG TAB PO SCH ×2 (09:42→20:19)
[2021-04-18] MEDS: METOPROLOL TARTRATE 25 MG TAB PO SCH ×2 (09:42→20:19)
[2021-04-18] MEDS: LOSARTAN 50 MG TAB PO SCH (09:42)
[2021-04-18] MEDS: TICAGRELOR 90 MG TAB PO SCH ×2 (09:42→20:19)
[2021-04-18] MEDS: HEPARIN SODIUM,PORCINE/PF 5,000 UNIT/0.5 ML SYRINGE SQ SCH ×2 (09:42→20:19)
[2021-04-18] MEDS: INSULIN DETEMIR (LEVEMIR) 100 UNIT/ML SYR SQ SCH ×2 (09:42→20:19)
[2021-04-18] MEDS: ASPIRIN 81 MG PO SCH (09:42)
--- NOTE | 2021-04-18 09:48 | P.PN ---
Subjective Progress Note Date: 04/18/21 This is a 71-year-old white female patient with extensive medical history including COPD, hypertension, hyperlipidemia, previous history of myocardial infarction, coronary artery disease with previous stenting and bypass grafting in 2017, diabetes mellitus, former smoker, who presented to the emergency department on 04/12/2021 by EMS for evaluation of altered mental status, and aphasia. Patient states she laid down to take a nap yesterday in the afternoon, and she woke up 2 hours later and her daughter noticed that she was acutely confused, was difficult to understand, and patient was not able to follow basic commands. She also seemed to have left lower extremity weakness. MRSA alerted the EMS, and when the EMS arrived they noted that patient's symptoms completely resolved however the symptoms shortly came back and she was brought to the emergency department for further evaluation and treatment. Patient was found to be TPA candidate. CT imaging of the head without contrast revealed cerebral atrophy and no acute intracranial abnormality, patient's blood glucose was 161. Urine drug screen was negative, EKG showed no acute changes or signs of acute ischemia. Patient's chest x-ray revealed no acute cardiopulmonary process. Code stroke was alerted, TPA was recommended and administered. Neurology interventionalist also recommended 1 g of IV Keppra for possible anticipated seizure. CT angiography of the head and neck showed approximately 50% stenosis in the right ICA, 25% stenosis in the distal RCA, no evidence of any significant stenosis on the left side, no significant intracranial angiographic abnormality. Patient was then transferred to the intensive care unit for advanced neurological monitoring following TPA administration, follow-up brain CT without contrast on 04/12/2021 at 2300 showed no acute intracranial abnormality. This morning patient is seen in intensive care unit. She is awake and alert, oriented to person and place. She seems to be disoriented to time. She appears to be in no acute distress, she is generally weak, still has a residual left si ded weakness, however her speech has dramatically improved, and seems to be speaking normally. She denies any respiratory difficulty, lung sounds reveal just a few basilar crackles at the right base, no wheezing, no cough, no chest pain, blood pressures 125/79, and she is in sinus mechanism with a rate of 61 BPM, she has been afebrile. She did require nicardipine infusion yesterday for elevated blood pressures which is currently discontinued. Systolic pressure is 120-140 and her diastolic in the 60s and 70s. Patient was able to sit up on the edge of the bed with assistance, she is generally weak, requiring extensive assistance with 2 people assist. This morning echocardiogram is pending, carotid Doppler has been completed, awaiting results of radiology report. MRI of the brain is pending for today, currently on 0.9 normal saline at 50 ML per hour, no other drips, we will restart her high-dose Lipitor 80 mg at bedtime, she is on Pepcid for GI prophylaxis, but sugar monitoring every 6 hours, her last blood sugar is 134 this morning. Morning's labs have been reviewed, showing a white count of 10.5, hemoglobin of 13, electrolytes and renal profile are within normal limits, troponin was negative 1, at less than 0.012, ammonia level was less than 9, LFTs were within normal limits, LDL was 62, HDL was 34, total cholesterol of 112, triglycerides is 77. Urinalysis showed cloudy urine, with 2+ protein, moderate loose, but no clear evidence of infection. On 04/14/2021 patient seen in follow-up in intensive care unit, she is awake and alert, oriented 3, her speech pattern seems to be back to baseline during our evaluation, however per nursing staff patient at times continues to be mixing up her words. No new weakness, and her strength in bilateral lower extremities is improving, and patient was able to get up out of bed basically unassisted on today's evaluation. She is oriented to person and place today. Denies any acute distress, no facial asymmetry noted on today's exam. Brain MRI was completed showing white matter signal changes around the lateral ventricles that are nonspecific and that could relate to microvascular ischemia. No evidence of cortical infarct. Carotid Doppler was completed showing extensive bilateral calcified plaque without definite significant hemodynamic stenosis. Echocardiogram showed mild concentric LVH, and EF of 50-55%. Other to severe pulmonary hypertension with a PA pressure of 54.2 mmHg, moderate to severe tricuspid regurgitation. Mild mitral regurg. Patient has been noted to be very restless, and confused at times. Wall catheter has been discontinued, urine was noted to be quite turbid in appearance, urinalysis was sent, however in view of increased confusion and quite turbid appearance of the urine patient was empirically started on Rocephin. Urine culture is pending, patient is status post TPA, she was started on aspirin and [place] time last night at 2100. Neurology is closely following. She was also noted to have elevated blood pressures systolic in the 190, metoprolol 25 mg twice daily was started, in addition to losartan home dose 100 mg once daily. Patient was given 1 dose of hydralazine 10 mg. Blood pressure improved in the afternoon, and is down to 149/62. Patient has had no fever or chills. Patient is on subcu heparin for DVT prophylaxis, she is on Pepcid for GI prophylaxis, her blood sugars are being monitored before each meal, blood sugars have been running in the 192-77 range, Levemir was added day 22 units twice daily. Patient normally takes Levemir 44 units twice daily at home. On April 15, 2021 patient seen in follow-up in the intensive care unit, patient is awake and alert, oriented 3 at the moment, yesterday she had intermittent confusion, restlessness and agitation requiring placement of a director medical safety at the bedside, she has received Seroquel. Repeat brain CT was completed showing no acute intracranial abnormality. There is stable moderate bifrontal atrophy and mild central cerebral volume loss. Mild burden of chronic small vessel ischemic disease. Patient had a low-grade fever this morning, with a temp of 100.5F, urinalysis was repeated again showing cloudy specimen, with 2+ protein, 4+ glucose, trace ketones, increased red blood cells, 7 of white blood cells, and culture has been sent and pending at this time, patient is empirically covered with Rocephin, blood cultures have been sent this morning. She denies any worsening shortness of breath, no cough. Her chest x-ray showed some pulmonary vascular congestion, no hilar masses, mediastinum was normal. Today's labs have been reviewed showing white blood cell count of 10.8, hemoglobin of 12.2, sodium is 135 quite interested electrolytes and renal profile were within normal limits. No abdominal pain, nausea or vomiting. Neurologically patien's speech is back to baseline, normal, no aphasia noted on today's exam, strength seems to be equal bilaterally. No new weakness. On today's evaluation on 04/16/2021 patient is seen in follow-up in intensive care unit. She is currently sleeping, but easily arouses to verbal stimuli, she is oriented to place and the year, she disoriented to month. She did have an episode of restlessness last night, patient got up unassisted and went to the bathroom. No falls, no injuries. She was redirected, she remains on Seroquel 25 mg twice daily. Neurologically her speech seems to be normal on today's exam, no mixing up words noted on today's exam, no facial asymmetry, she still has left hand hepatologist weakness, bilateral lower extremity strength seems to be equal. She is in sinus mechanism with a rate of 66 BPM, she is on room air with a pulse ox of 94%, she is breathing comfortably, lung sounds are clear, blood pressure is stable. Currently it is 136/93, she has had no fever or chills overnight. She remains on Rocephin for empiric antibiotic coverage, her urine culture is still pending, blood cultures have been sent, are pending at this time. Abdomen is soft, nontender, no nausea vomiting or diarrhea. Patient is tolerating regular diet. Today's labs have been reviewed, with blood cell count is 12.1, hemoglobin is 12.1, serum sodium is 134, the rest of electrolytes are unremarkable, BUN is 18 creatinine 0.89. 04/17/2021, the patient is doing well. She is verbal. She is moving all 4 extremities. No focal neurological deficits. No confusion. Awake and oriented 3. She remains on Seroquel 25 mg by mouth twice a day for some delirium/confusion. This has recovered. Cardiac rhythm is sinus. She has gram-negative bacillus in the urine and the patient is currently on IV Rocephin. Blood work from today shows a white cell count of 10.3 with a hemoglobin of 12. Normal renal function. Normal electrolytes. No other significant events over the past 24 hours. She is currently on room air oxygen. 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 She is on aspirin and a Brilinta as antiplatelet agents she is also on Levemir insulin 22 units twice a day and a sliding scale coverage. On 04/18/2021, I am seeing this patient for a follow-up. Doing well. No ne urologic events. I feel that the left side is slightly weaker than the right. The patient tells me that the strength is symmetrical according to her. She remains on aspirin and Brilinta. She is hemodynamically stable. Mental status is adequate. No confusion. She is tolerating her diet. She had a UTI which basket turner to be an ESBL producing E. coli and for that reason the patient was placed on IV Invanz. I having any fever. No new labs are available from today. No bleeding complications. No headaches. No altered mentation. She is on Levemir insulin 22 units along with a sliding scale coverage. She is a selective overflow. No cardiac arrhythmias. Cardiac rhythm is sinus Objective - Vital Signs Vital signs: Vital Signs Temp 98.0 F 04/18/21 04:00 Pulse 61 04/18/21 04:00 Resp 24 04/18/21 04:00 BP 148/95 04/18/21 04:00 Pulse Ox 95 04/18/21 04:00 Intake & Output 04/17/21 04/18/21 04/18/21 18:59 06:59 18:59 Intake Total 290 Output Total 400 550 Balance -110 -550 Weight 94.4 kg Intake: Intake, IV Titration 50 Amount cefTRIAXone 1 gm In 50 Sodium Chloride 0.9% 50 ml @ 100 mls/hr IVPB Q24HR [facility] Rx#:[id number] Oral 240 Output: Urine 400 550 Other: Voiding Method Bedside Commode Bedside Commode # Voids 2 - Exam GENERAL EXAM: Alert, very pleasant, 71-year-old white female, on RA oxygen and pulse ox of 99%, comfortable in no apparent distress. Patient is oriented to person and place, and the year, did not know the month. Does have intermittent periods of confusion HEAD: Normocephalic/atraumatic. EYES: Normal reaction of pupils, equal size. Conjunctiva pink, sclera white. NOSE: Clear with pink turbinates. THROAT: No erythema or exudates. NECK: No masses, no JVD, no thyroid enlargement, no adenopathy. CHEST: No chest wall deformity. Symmetrical expansion. LUNGS: Equal air entry with no crackles, wheeze, rhonchi or dullness. CVS: Regular rate and rhythm, normal S1 and S2, no gallops, no murmurs, no rubs ABDOMEN: Soft, nontender. No hepatosplenomegaly, normal bowel sounds, no guarding or rigidity. EXTREMITIES: No clubbing, no edema, no cyanosis, 2+ pulses and upper and lower extremities. MUSCULOSKELETAL: Muscle strength and tone normal. SPINE: No scoliosis or deformity SKIN: No rashes CENTRAL NERVOUS SYSTEM: Alert and oriented -2. patient still has left hepatologist weakness compared to the right hand PSYCHIATRIC: Alert and oriented -2. Appropriate affect. Intact judgment and insight. - Labs CBC & Chem 7: 04/17/21 04:05 04/17/21 04:05 Labs: Abnormal Lab Results - Last 24 Hours (Table) 04/17/21 04/17/21 04/17/21 Range/Units 11:43 17:05 20:39 POC Glucose (mg/dL) 225 H 201 H 219 H (75-99) mg/dL Microbiology - Last 24 Hours (Table) 04/12/21 20:40 Blood Culture - Preliminary Blood No Growth after 120 hours 04/12/21 21:00 Blood Culture - Preliminary Blood No Growth after 120 hours 04/15/21 20:57 Blood Culture - Preliminary Blood No Growth after 48 hours 04/15/21 20:37 Blood Culture - Preliminary Blood No Growth after 48 hours 04/15/21 09:15 Urine Culture - Final Urine,Catheterized Escherichia coli Assessment and Plan Plan: #1. Acute ischemic stroke status post TPA, patient presented with symptoms of aphasia, left leg weakness, and altered mental status. Aphasia has improved, and the patient was having episodes of confusion. Her mental status has improved. She does have some residual weakness on the left. She is currently on a combination of aspirin and Brilinta. A stable. Neurologically stable. I feel that the left side is slightly weaker compared to the right. However, there has been no interval worsening. Mental status completely back to normal. #2. Hypertension #3. Hyperlipidemia #4. History of coronary artery disease status post stenting and previous coronary artery bypass grafting in 2017 #5. History of COPD #6. 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 Diabetes mellitus type 2 #8. Chronic hypoxic respiratory failure on home oxygen, currently on room air oxygen with adequate oxygenation. #9. Low-grade fever, rule out possibility of sepsis, possibly related to urinary tract infection and negative bacillus and the patient is currently on IV Rocephin. The patient or not to have an ESBL producing E. coli and I switched antibiotics IV Invanz. Plan: Continue aspirin and Brilinta Physical therapy and increased mobility and assess the patient's ability to walk and ambulate today. She may be able to chest also the intensive care unit Continue Seroquel 25 mg twice daily Continue close neurological monitoring Blood pressure stable IV Invanz regarding her E. coli urinary tract infection She is on room air oxygen Increase activity as tolerated maintain safety precautions Stable for transfer out of intensive care unit to [facility]
[2021-04-18] MEDS: niCARdipine 20 MG in SODIUM CHLORIDE 0.9% 192 ML IV SCH (10:54)
[2021-04-18] MEDS: FAMOTIDINE 20 MG/2 ML VIAL IV SCH (10:55)
[2021-04-18 11:51] LABS: Glucose,Whole Blood 168 mg/dL (75-99)
[2021-04-18] MEDS: ERTAPENEM 1 GM in SODIUM CHLORIDE 0.9% 50 ML IVPB SCH (15:39)
[2021-04-18 16:33] LABS: Glucose,Whole Blood 222 mg/dL (75-99)
[2021-04-18 20:15] LABS: Glucose,Whole Blood 221 mg/dL (75-99)
[2021-04-18] MEDS: QUEtiapine 25 MG TAB PO SCH (20:19)
[2021-04-18] MEDS: ATORVASTATIN 80 MG TAB PO SCH (20:19)
[2021-04-19 06:35] LABS: Glucose,Whole Blood 174 mg/dL (75-99)
[2021-04-19] MEDS: INSULIN ASPART (NovoLOG) 100 UNIT/ML VIAL SQ SCH ×4 (06:35→21:01)
[2021-04-19] MEDS: SYMBICORT 160-4.5 MCG INHALER INHALATION SCH ×2 (08:49→19:14)
[2021-04-19] MEDS: ACETAMINOPHEN TAB 325 MG TAB PO PRN ×2 (08:55→23:25)
[2021-04-19] MEDS: FAMOTIDINE 20 MG TAB PO SCH (08:55)
[2021-04-19] MEDS: LOSARTAN 50 MG TAB PO SCH (08:55)
[2021-04-19] MEDS: METOPROLOL TARTRATE 25 MG TAB PO SCH ×2 (08:56→21:01)
[2021-04-19] MEDS: ASPIRIN 81 MG PO SCH (08:56)
[2021-04-19] MEDS: INSULIN DETEMIR (LEVEMIR) 100 UNIT/ML SYR SQ SCH ×2 (08:56→21:01)
[2021-04-19] MEDS: HEPARIN SODIUM,PORCINE/PF 5,000 UNIT/0.5 ML SYRINGE SQ SCH ×2 (08:56→21:01)
--- NOTE | 2021-04-19 09:27 | P.PN ---
Subjective Progress Note Date: 04/18/21 Patient was seen for a follow-up. Patient initially seen by Dr. Dirk Maciel. Please refer to Dr. Dirk Maciel note for details. Patient has history of CVA, for which she received TPA. Patient has language deficit. Also has history of underlying cognitive impairment. MRI of the brain however revealed no acute ischemic process. Patient is currently on Brillinta. Patient states that the only thing she remembers is that she was talking to her daughter, and next thing she remembers is someone has called EMS. Patient denies any focal symptoms. She feels fine. No headache. Objective - Vital Signs Vital signs: Vital Signs Temp 98.0 F 04/18/21 04:00 Pulse 64 04/18/21 10:00 Resp 20 04/18/21 10:00 BP 156/94 04/18/21 10:00 Pulse Ox 95 04/18/21 04:00 Intake & Output 04/17/21 04/18/21 04/18/21 18:59 06:59 18:59 Intake Total 290 Output Total 877 953 9774 Balance -110 -550 -1000 Weight 94.4 kg Intake: Intake, IV Titration 50 Amount cefTRIAXone 1 gm In 50 Sodium Chloride 0.9% 50 ml @ 100 mls/hr IVPB Q24HR [facility] Rx#:[id number] Oral 240 Output: Urine 179 [id number] Other: Voiding Method Bedside Commode Bedside Commode Bedside Commode # Voids 2 1 - Exam GENERAL: The patient is lying in bed and is not in acute distress. NEUROLOGICAL: Higher mental function: The patient is awake, alert, oriented. She knows her name, age and then she is in [facility] and thinks she is in [place]. On giving some prompt, patient was able to tell that she is in [place]. Patient knows name of the current president although states ""Binladin" She was able to name correctly watch and glassess. She was able to repet sentences. She is following simple commands. No aphasia or dysarthria. No neglect. Cranial nerves: The pupils are round, equal and reactive to light and accommodation. Visual robert are full to confrontation throughout. Extraocular movement is intact no nystagmus is noted. Facial sensation is normal to touch throughout. The facial strength is normal throughout. Hearing is moderately decreased bilaterally to hand rub. Tongue is midline and moved [id number] without any difficulty. No dysarthria is noted. Shoulder shrug is normal bilaterally. Motor: Gait is deferred. The strength is 5/5 in upper and lower seems 5- bilaterally (per daughter she has chronic low back pain with chronic lower extremity weakness right > left).. Normal tone and bulk. Cerebellum: Normal finger to nose bilaterally. Sensation: Sensation is normal to touch throughout. Reflexes (right/left): 2+ throughout uppers while lowers are 1+ bilaterally.. Plantars are downgoing bilaterally. - Labs CBC & Chem 7: 04/17/21 04:05 04/17/21 04:05 Labs: Abnormal Lab Results - Last 24 Hours (Table) 04/17/21 04/17/21 04/18/21 Range/Units 17:05 20:39 11:50 POC Glucose (mg/dL) 201 H 219 H 168 H (75-99) mg/dL Microbiology - Last 24 Hours (Table) 04/12/21 20:40 Blood Culture - Preliminary Blood No Growth after 120 hours 04/12/21 21:00 Blood Culture - Preliminary Blood No Growth after 120 hours 04/15/21 20:57 Blood Culture - Preliminary Blood No Growth after 48 hours 04/15/21 20:37 Blood Culture - Preliminary Blood No Growth after 48 hours 04/15/21 09:15 Urine Culture - Final Urine,Catheterized Escherichia coli Assessment and Plan Assessment: Acute ischemic stroke status post TPA (Pe ED NIH 7. Aphasia, leg weakness, commands), now NIH stroke scale is 0 Likely cognitive impairement/dementia (per daughter since 2016 and was subtle) and has moderate bilateral frontal atrophy. Chronic lower back pain with radiation to the right leg seems like radiculopathy (but per patient no worsening of her lower back pain) Diabetes mellitus and seems uncontrolled (HbA1c 9.4) History of Hypertension History of coronary artery disease status post stent History of myocardia infarction s/p CABG Heart failure Former nicotine use (stopped 11 years ago) Plan: * Continue ASA 81mg (home dose) and started on Brilinta 90mg 1 tab bid for 1 month, then may switch back to aspirin and Plavix. MRI of the brain showed no acute stroke. Continue Lipitor 80mg qhs for secondary stroke prophylaxis. LDL goal in stroke <70. * PT, OT and AUTO GARAGE ATTENDANT are consulted * Q4 hours Neuro checks . * On continuous cardiac monitoring. * EEG on 04/15/2021 because of fluctuation of mentation: Abnormal routine EEG. The background slowing is suggestive of mild encephalopathy. There are no focal slowing, epileptiform discharges or seizure on EEG. * Recommend normotensive and will defer management to the primary team/ICU team. * Recommend patient to be discharged with event monitor. * We'll defer the rest of the medical management to the primary team and ICU team. For DVT prophylaxis: On subq heparin. Otherwise she is clear from neurological standpoint. WORK-UP: CT of the head is reported as cerebral atrophy. No acute intracranial abnormality. No change. CT angiography of the head and neck was reported as there is approximate 50% stenosis origin of the right internal carotid artery. There is 25% stenosis of the distal right common carotid artery. No evidence of any significant stenosis of the left. No significant intercranial and angiographic abnormality. MR the brain (post 24 hours tpa) is reported as cerebral atrophy. White matter changes change around the lateral ventricle are nonspecific and could relate to microvascular ischemic Disease. No evidence of cortical infarct. Carotid duplex was reported as extensive bilateral calcified plaque with no definite of significant hemodynamic stenosis. Repeat CT head (because of altered mental status): Reported as no acute intracranial abnormality seen. Stable moderate bifrontal atrophy and mild central cerebral volume loss. Mild burden of chronic small vessel ischemic disease. 2-D echo was reported as moderate concentric left ventricular hypertrophy. Ejection fraction of 50-55%. Basilar lateral left ventricle wall motion is hypokinetic. Left atrium is severely dilated. Hemoglobin A1c is 9.4 which her diabetes is uncontrolled. TSH is 0.35 which is considered low but the free T4 is 1.14 which is considered normal. Lipid panel is LDL 62, HDL of 34, cholesterol of 112, triglyceride of 77.
[2021-04-19] MEDS: TICAGRELOR 90 MG TAB PO SCH ×2 (10:39→21:01)
[2021-04-19] MEDS: ERTAPENEM 1 GM in SODIUM CHLORIDE 0.9% 50 ML IVPB SCH (11:08)
[2021-04-19 11:14] LABS: Glucose,Whole Blood 227 mg/dL (75-99)
--- NOTE | 2021-04-19 11:36 | P.PN ---
Subjective Progress Note Date: 04/19/21 This is a 71-year-old white female patient with extensive medical history including COPD, hypertension, hyperlipidemia, previous history of myocardial infarction, coronary artery disease with previous stenting and bypass grafting in 2017, diabetes mellitus, former smoker, [facility] for evaluation of altered mental status, and aphasia. Patient states she laid down to take a nap yesterday in the afternoon, and she woke up 2 hours later and her daughter noticed that she was acutely confused, was difficult to understand, and patient was not able to follow basic commands. She also seemed to have left lower extremity weakness. MRSA alerted the EMS, and when the EMS arrived they noted that patient's symptoms completely resolved however the symptoms shortly came back and she was brought to the emergency department for further evaluation and treatment. Patient was found to be TPA candidate. CT imaging of the head without contrast revealed cerebral atrophy and no acute intracranial abnormality, patient's blood glucose was 161. Urine drug screen was negative, EKG showed no acute changes or signs of acute ischemia. Patient's chest x-ray revealed no acute cardiopulmonary process. Code stroke was alerted, TPA was recommended and administered. Neurology interventionalist also recommended 1 g of IV Keppra for possible anticipated seizure. CT angiography of the head and neck showed approximately 50% stenosis in the right ICA, 25% stenosis in the distal RCA, no evidence of any significant stenosis on the left side, no significant intracranial angiographic abnormality. Patient was then transferred to the intensive care unit for advanced neurological monitoring following TPA administration, follow-up brain CT without contrast on 04/12/2021 at 2300 showed no acute intracranial abnormality. This morning patient is seen in intensive care unit. She is awake and alert, oriented to person and place. She seems to be disoriented to time. She appears to be in no acute distress, she is generally weak, still has a residual left sided weakness, however her speech has dramatically improved, and seems to be speaking normally. She denies any respiratory difficulty, lung sounds reveal just a few basilar crackles at the right base, no wheezing, no cough, no chest pain, blood pressures 125/79, and she is in sinus mechanism with a rate of 61 BPM, she has been afebrile. She did require nicardipine infusion yesterday for elevated blood pressures which is currently discontinued. Systolic pressure is 120-140 and her diastolic in the 60s and 70s. Patient was able to sit up on the edge of the bed with assistance, she is generally weak, requiring extensive assistance with 2 people assist. This morning echocardiogram is pending, c arotid Doppler has been completed, awaiting results of radiology report. MRI of the brain is pending for today, currently on 0.9 normal saline at 50 ML per hour, no other drips, we will restart her high-dose Lipitor 80 mg at bedtime, she is on Pepcid for GI prophylaxis, but sugar monitoring every 6 hours, her last blood sugar is 134 this morning. Morning's labs have been reviewed, showing a white count of 10.5, hemoglobin of 13, electrolytes and renal profile are within normal limits, troponin was negative 1, at less than 0.012, ammonia level was less than 9, LFTs were within normal limits, LDL was 62, HDL was 34, total cholesterol of 112, triglycerides is 77. Urinalysis showed cloudy urine, with 2+ protein, moderate loose, but no clear evidence of infection. On 04/14/2021 patient seen in follow-up in intensive care unit, she is awake and alert, oriented 3, her speech pattern seems to be back to baseline during our evaluation, however per nursing staff patient at times continues to be mixing up her words. No new weakness, and her strength in bilateral lower extremities is improving, and patient was able to get up out of bed basically unassisted on today's evaluation. She is oriented to person and place today. Denies any acute distress, no facial asymmetry noted on today's exam. Brain MRI was completed showing white matter signal changes around the lateral ventricles that are nonspecific and that could relate to microvascular ischemia. No evidence of cortical infarct. Carotid Doppler was completed showing extensive bilateral calcified plaque without definite significant hemodynamic stenosis. Echocardiogram showed mild concentric LVH, and EF of 50-55%. Other to severe pulmonary hypertension with a PA pressure of 54.2 mmHg, moderate to severe tricuspid regurgitation. Mild mitral regurg. Patient has been noted to be very restless, and confused at times. Wall catheter has been discontinued, urine was noted to be quite turbid in appearance, urinalysis was sent, however in view of increased confusion and quite turbid appearance of the urine patient was empirically started on Rocephin. Urine culture is pending, patient is status post TPA, she was started on aspirin and [place] time last night at 2100. Neurology is closely following. She was also noted to have elevated blood pressures systolic in the 190, metoprolol 25 mg twice daily was started, in addition to losartan home dose 100 mg once daily. Patient was given 1 dose of hydralazine 10 mg. Blood pressure improved in the afternoon, and is down to 149/62. Patient has had no fever or chills. Patient is on subcu heparin for DVT prophylaxis, she is on Pepcid for GI prophylaxis, her blood sugars are being monitored before each meal, blood sugars have been running in the 192-77 range, Levemir was added day 22 units twice daily. Patient normally takes Levemir 44 units twice daily at home. On April 15, 2021 patient seen in follow-up in the intensive care unit, patient is awake and alert, oriented 3 at the moment, yesterday she had intermittent confusion, restlessness and agitation requiring placement of a campus safety officer at the bedside, she has received Seroquel. Repeat brain CT was completed showing no acute intracranial abnormality. There is stable moderate bifrontal atrophy and mild central cerebral volume loss. Mild burden of chronic small vessel ischemic disease. Patient had a low-grade fever this morning, with a temp of 100.5F, urinalysis was repeated again showing cloudy specimen, with 2+ protein, 4+ glucose, trace ketones, increased red blood cells, 7 of white blood cells, and culture has been sent and pending at this time, patient is empirically covered with Rocephin, blood cultures have been sent this morning. She denies any worsening shortness of breath, no cough. Her chest x-ray showed some pulmonary vascular congestion, no hilar masses, mediastinum was normal. Today's labs have been reviewed showing white blood cell count of 10.8, hemoglobin of 12.2, sodium is 135 quite interested electrolytes and renal profile were within normal limits. No abdominal pain, nausea or vomiting. Neurologically patien's speech is back to baseline, normal, no aphasia noted on today's exam, strength seems to be equal bilaterally. No new weakness. On today's evaluation on 04/16/2021 patient is seen in follow-up in intensive care unit. She is currently sleeping, but easily arouses to verbal stimuli, she is oriented to place and the year, she disoriented to month. She did have an episode of restlessness last night, patient got up unassisted and went to the bathroom. No falls, no injuries. She was redirected, she remains on Seroquel 25 mg twice daily. Neurologically her speech seems to be normal on today's exam, no mixing up words noted on today's exam, no facial asymmetry, she still has left hand furniture mechanic weakness, bilateral lower extremity strength seems to be equal. She is in sinus mechanism with a rate of 66 BPM, she is on room air with a pulse ox of 94%, she is breathing comfortably, lung sounds are clear, blood pressure is stable. Currently it is 136/93, she has had no fever or chills overnight. She remains on Rocephin for empiric antibiotic coverage, her urine culture is still pending, blood cultures have been sent, are pending at this time. Abdomen is soft, nontender, no nausea vomiting or diarrhea. Patient is tolerating regular diet. Today's labs have been reviewed, with blood cell count is 12.1, hemoglobin is 12.1, serum sodium is 134, the rest of electrolytes are unremarkable, BUN is 18 creatinine 0.89. 04/17/2021, the patient is doing well. She is verbal. She is moving all 4 extremities. No focal neurological deficits. No confusion. Awake and oriented 3. She remains on Seroquel 25 mg by mouth twice a day for some delirium/confusion. This has recovered. Cardiac rhythm is sinus. She has gram-negative bacillus in the urine and the patient is currently on IV Rocephin. Blood work from today shows a white cell count of 10.3 with a hemoglobin of 12. Normal renal function. Normal electrolytes. No other significant events over the past 24 hours. She is currently on room air oxygen. 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 She is on aspirin and a Brilinta as antiplatelet agents she is also on Levemir insulin 22 units twice a day and a sliding scale coverage. On 04/18/2021, I am seeing this patient for a follow-up. Doing well. No neuro logic events. I feel that the left side is slightly weaker than the right. The patient tells me that the strength is symmetrical according to her. She remains on aspirin and Brilinta. She is hemodynamically stable. Mental status is adequate. No confusion. She is tolerating her diet. She had a UTI which boot turner to be an ESBL producing E. coli and for that reason the patient was placed on IV Invanz. I having any fever. No new labs are available from today. No bleeding complications. No headaches. No altered mentation. She is on Levemir insulin 22 units along with a sliding scale coverage. She is a selective overflow. No cardiac arrhythmias. Cardiac rhythm is sinus The patient is seen today 04/19/2021 in follow-up in the intensive care unit. She is currently sitting up in bed. Awake and alert in no acute distress. Maintaining good O2 saturations in the mid 90s on room air. She's been afebrile. Hemodynamically stable. Initial urine culture was positive for E. coli. Blood cultures have remained negative. Blood glucose 174. She remains on Symbicort and ertapenem. Heparin for DVT prophylaxis. Remains on Brilinta and aspirin. Levemir at 22 units twice a day along with a sliding scale. Plan is for discharge to [facility] today. Objective - Vital Signs Vital signs: Vital Signs Temp 98.1 F 04/19/21 08:00 Pulse 51 L 04/19/21 08:00 Resp 23 04/19/21 08:00 BP 138/64 04/19/21 08:00 Pulse Ox 95 04/19/21 08:49 Intake & Output 04/18/21 04/19/21 04/19/21 18:59 06:59 18:59 Intake Total 290 Output Total 1000 400 175 Balance -710 -400 -175 Weight 93.9 kg Intake: Intake, IV Titration 50 Amount Ertapenem 1 gm In Sodium 50 Chloride 0.9% 50 ml @ 100 mls/hr IVPB DAILY@1200 [facility] Rx#:[id number] Oral 240 Output: Urine 1000 400 175 Other: Voiding Method Bedside Commode Bedside Commode Bedside Commode # Voids 1 2 1 - Exam GENERAL EXAM: Alert, 71-year-old white female, on RA oxygen and pulse ox of 95%, comfortable in no apparent distress. Patient is oriented to person and place. Does have intermittent periods of confusion HEAD: Normocephalic/atraumatic. EYES: Normal reaction of pupils, equal size. Conjunctiva pink, sclera white. NOSE: Clear with pink turbinates. THROAT: No erythema or exudates. NECK: No masses, no JVD, no thyroid enlargement, no adenopathy. CHEST: No chest wall deformity. Symmetrical expansion. LUNGS: Equal air entry with no crackles, wheeze, rhonchi or dullness. CVS: Regular rate and rhythm, normal S1 and S2, no gallops, no murmurs, no rubs ABDOMEN: Soft, nontender. No hepatosplenomegaly, normal bowel sounds, no guar ding or rigidity. EXTREMITIES: No clubbing, no edema, no cyanosis, 2+ pulses and upper and lower extremities. MUSCULOSKELETAL: Muscle strength and tone normal. SPINE: No scoliosis or deformity SKIN: No rashes CENTRAL NERVOUS SYSTEM: Alert and oriented -2. patient still has left furniture mechanic weakness compared to the right hand PSYCHIATRIC: Alert and oriented -2. Appropriate affect. Intact judgment and insight. - Labs CBC & Chem 7: 04/17/21 04:05 04/17/21 04:05 Labs: Abnormal Lab Results - Last 24 Hours (Table) 04/18/21 04/18/21 04/18/21 Range/Units 11:50 16:31 20:14 POC Glucose (mg/dL) 168 H 222 H 221 H (75-99) mg/dL 04/19/21 04/19/21 Range/Units 06:33 11:12 POC Glucose (mg/dL) 174 H 227 H (75-99) mg/dL Microbiology - Last 24 Hours (Table) 04/12/21 21:00 Blood Culture - Final Blood No Growth after 144 hours 04/12/21 20:40 Blood Culture - Final Blood No Growth after 144 hours 04/15/21 20:37 Blood Culture - Preliminary Blood No Growth after 72 hours 04/15/21 20:57 Blood Culture - Preliminary Blood No Growth after 72 hours Assessment and Plan Assessment: 1 Acute ischemic stroke status post TPA, patient presented with symptoms of aphasia, left leg weakness, and altered mental status. Aphasia has improved, and the patient was having episodes of confusion. Her mental status has improved. She does have some residual weakness on the left. She is currently on a combination of aspirin and Brilinta. A stable. Neurologically stable. I feel that the left side is slightly weaker compared to the right. However, there has been no interval worsening. Mental status completely back to normal. 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 9 Low-grade fever, rule out possibility of sepsis, possibly related to urinary tract infection and negative bacillus and the patient is currently on IV Rocephin. The patient or not to have an ESBL producing E. coli and I switched antibiotics IV Invanz. Plan: The patient was seen and evaluated by Dr. Kayden Love from the pulmonary and critical care standpoint Midline for continued IV antibiotics Continue ertapenem 5 more days Plan is for transfer to [facility] today I, the cosigning physician, performed a history & physical examination of the patient. Lungs sounds are clear. Maintaining good O2 saturations in the 90s on room air. I discussed the assessment and plan of care with my nurse practitioner, Cony Coon. I attest to the above note as dictated by her.
[2021-04-19 16:39] LABS: Glucose,Whole Blood 223 mg/dL (75-99)
[2021-04-19 20:36] LABS: Glucose,Whole Blood 202 mg/dL (75-99)
[2021-04-19] MEDS: ATORVASTATIN 80 MG TAB PO SCH (21:01)
[2021-04-19] MEDS: QUEtiapine 25 MG TAB PO SCH (21:01)
[2021-04-20 06:29] LABS: Glucose,Whole Blood 206 mg/dL (75-99)
[2021-04-20] MEDS: INSULIN ASPART (NovoLOG) 100 UNIT/ML VIAL SQ SCH ×2 (06:41→12:57)
[2021-04-20] MEDS: LOSARTAN 50 MG TAB PO SCH (08:35)
[2021-04-20] MEDS: METOPROLOL TARTRATE 25 MG TAB PO SCH (08:36)
[2021-04-20] MEDS: ASPIRIN 81 MG PO SCH (08:36)
[2021-04-20] MEDS: HEPARIN SODIUM,PORCINE/PF 5,000 UNIT/0.5 ML SYRINGE SQ SCH (08:36)
[2021-04-20] MEDS: TICAGRELOR 90 MG TAB PO SCH (08:36)
[2021-04-20] MEDS: INSULIN DETEMIR (LEVEMIR) 100 UNIT/ML SYR SQ SCH (08:37)
[2021-04-20] MEDS ORDERED: FAMOTIDINE 20 MG TAB PO SCH (09:00)
--- NOTE | 2021-04-20 09:02 | P.PN ---
Subjective Progress Note Date: 04/20/21 Principal diagnosis: Acute ischemic CVA status post TPA This is a 71-year-old white female patient with extensive medical history including COPD, hypertension, hyperlipidemia, previous history of myocardial infarction, coronary artery disease with previous stenting and bypass grafting in 2017, diabetes mellitus, former smoker, who presented to the emergency department on 04/12/2021 by EMS for evaluation of altered mental status, and aphasia. Patient states she laid down to take a nap yesterday in the afternoon, and she woke up 2 hours later and her daughter noticed that she was acutely confused, was difficult to understand, and patient was not able to follow basic commands. She also seemed to have left lower extremity weakness. MRSA alerted the EMS, and when the EMS arrived they noted that patient's symptoms completely resolved however the symptoms shortly came back and she was brought to the emergency department for further evaluation and treatment. Patient was found to be TPA candidate. CT imaging of the head without contrast revealed cerebral atrophy and no acute intracranial abnormality, patient's blood glucose was 161. Urine drug screen was negative, EKG showed no acute changes or signs of acute ischemia. Patient's chest x-ray revealed no acute cardiopulmonary process. Code stroke was alerted, TPA was recommended and administered. Neurology in [facility] also recommended 1 g of IV Keppra for possible anticipated seizure. CT angiography of the head and neck showed approximately 50% stenosis in the right ICA, 25% stenosis in the distal RCA, no evidence of any significant stenosis on the left side, no significant intracranial angiographic abnormality. Patient was then transferred to the intensive care unit for advanced neurological monitoring following TPA administration, follow-up brain CT without contrast on 04/12/2021 at 2300 showed no acute intracranial abnormality. This morning patient is seen in intensive care unit. She is awake and alert, oriented to person and place. She seems to be disoriented to time. She appears to be in no acute distress, she is generally weak, still has a residual left sided weakness, however her speech has dramatically improved, and seems to be speaking normally. She denies any respiratory difficulty, lung sounds reveal just a few basilar crackles at the right base, no wheezing, no cough, no chest pain, blood pressures 125/79, and she is in sinus mechanism with a rate of 61 BPM, she has been afebrile. She did require nicardipine infusion yesterday for elevated blood pressures which is currently discontinued. Systolic pressure is 120-140 and her diastolic in the 60s and 70s. Patient was able to sit up on the edge of the bed with assistance, she is generally weak, requiring extensive assistance with 2 people assist. This morning echocardiogram is pending, carotid Doppler has been completed, awaiting results of radiology report. MRI of the brain is pending for today, currently on 0.9 normal saline at 50 ML per hour, no other drips, we will restart her high-dose Lipitor 80 mg at bedtime, she is on Pepcid for GI prophylaxis, but sugar monitoring every 6 hours, her last blood sugar is 134 this morning. Morning's labs have been reviewed, showing a white count of 10.5, hemoglobin of 13, electrolytes and renal profile are within normal limits, troponin was negative 1, at less than 0.012, ammonia level was less than 9, LFTs were within normal limits, LDL was 62, HDL was 34, total cholesterol of 112, triglycerides is 77. Urinalysis showed cloudy urine, with 2+ protein, moderate loose, but no clear evidence of infection. On 04/14/2021 patient seen in follow-up in intensive care unit, she is awake and alert, oriented 3, her speech pattern seems to be back to baseline during our evaluation, however per nursing staff patient at times continues to be mixing up her words. No new weakness, and her strength in bilateral lower extremities is improving, and patient was able to get up out of bed basically unassisted on today's evaluation. She is oriented to person and place today. Denies any acute distress, no facial asymmetry noted on today's exam. Brain MRI was completed showing white matter signal changes around the lateral ventricles that are nonspecific and that could relate to microvascular ischemia. No evidence of cortical infarct. Carotid Doppler was completed showing extensive bilateral calcified plaque without definite significant hemodynamic stenosis. Echocardiogram showed mild concentric LVH, and EF of 50-55%. Other to severe pulmonary hypertension with a PA pressure of 54.2 mmHg, moderate to severe tricuspid regurgitation. Mild mitral regurg. Patient has been noted to be very restless, and confused at times. Wall catheter has been discontinued, urine was noted to be quite turbid in appearance, urinalysis was sent, however in view of increased confusion and quite turbid appearance of the urine patient was empirically started on Rocephin. Urine culture is pending, patient is status post TPA, she was started on aspirin and [place] time last night at 2100. Neurology is closely following. She was also noted to have elevated blood pressures systolic in the 190, metoprolol 25 mg twice daily was started, in addition to losartan home dose 100 mg once daily. Patient was given 1 dose of hydralazine 10 mg. Blood pressure improved in the afternoon, and is down to 149/62. Patient has had no fever or chills. Patient is on subcu heparin for DVT prophylaxis, she is on Pepcid for GI prophylaxis, her blood sugars are being monitored before each meal, blood sugars have been running in the 192-77 range, Levemir was added day 22 units twice daily. Patient normally takes Levemir 44 units twice daily at home. On April 15, 2021 patient seen in follow-up in the intensive care unit, patient is awake and alert, oriented 3 at the moment, yesterday she had intermittent confusion, restlessness and agitation requiring placement of a safety supervisor at the bedside, she has received Seroquel. Repeat brain CT was completed showing no acute intracranial abnormality. There is stable moderate bifrontal atrophy and mild central cerebral volume loss. Mild burden of chronic small vessel ischemic disease. Patient had a low-grade fever this morning, with a temp of 100.5F, urinalysis was repeated again showing cloudy specimen, with 2+ protein, 4+ glucose, trace ketones, increased red blood cells, 7 of white blood cells, a nd culture has been sent and pending at this time, patient is empirically covered with Rocephin, blood cultures have been sent this morning. She denies any worsening shortness of breath, no cough. Her chest x-ray showed some pulmonary vascular congestion, no hilar masses, mediastinum was normal. Today's labs have been reviewed showing white blood cell count of 10.8, hemoglobin of 12.2, sodium is 135 quite interested electrolytes and renal profile were within normal limits. No abdominal pain, nausea or vomiting. Neurologically patien's speech is back to baseline, normal, no aphasia noted on today's exam, strength seems to be equal bilaterally. No new weakness. On today's evaluation on 04/16/2021 patient is seen in follow-up in intensive care unit. She is currently sleeping, but easily arouses to verbal stimuli, she is oriented to place and the year, she disoriented to month. She did have an episode of restlessness last night, patient got up unassisted and went to the bathroom. No falls, no injuries. She was redirected, she remains on Seroquel 25 mg twice daily. 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 She is in sinus mechanism with a rate of 66 BPM, she is on room air with a pulse ox of 94%, she is breathing comfortably, lung sounds are clear, blood pressure is stable. Currently it is 136/93, she has had no fever or chills overnight. She remains on Rocephin for empiric antibiotic coverage, her urine culture is still pending, blood cultures have been sent, are pending at this time. Abdomen is soft, nontender, no nausea vomiting or diarrhea. Patient is tolerating regular diet. Today's labs have been reviewed, with blood cell count is 12.1, hemoglobin is 12.1, serum sodium is 134, the rest of electrolytes are unremarkable, BUN is 18 creatinine 0.89. On 04/20/2021 patient seen in follow-up in the intensive care unit, she has been awaiting a bed on the abdomen unit for last few days, she has remained stable overnight, hemodynamically blood pressure is stable, no fever or chills, she remains on ertapenem for ESBL E. coli in the urine, blood cultures have shown no growth. Neurologically patient seems to be back to baseline, she is alert and oriented 3, no facial asymmetry, no unilateral weakness appreciated on this morning's exam in bilateral upper extremities, and has some chronic left leg weakness, no evidence of new weakness this morning. She is breathing comfor tably, she is on room air, lung sounds are clear. Ashley is 96%, yesterday she received a midline in her right antecubital area and arrangements are in progress for transfer to [facility] on the [facility] today. Other acute events overnight, she is in sinus mechanism with a rate of 57 BPM. Tolerating oral intake, no nausea vomiting or diarrhea. Objective - Vital Signs Vital signs: Vital Signs Temp 97.6 F 04/20/21 04:00 Pulse 60 04/20/21 04:00 Resp 14 04/20/21 04:00 BP 158/67 04/20/21 04:00 Pulse Ox 96 04/20/21 04:00 Intake & Output 04/19/21 04/20/21 04/20/21 18:59 06:59 18:59 Intake Total 340 Output Total 515 725 Balance -175 -725 Weight 93.1 kg Intake: Intake, IV Titration 100 Amount Ertapenem 1 gm In Sodium 100 Chloride 0.9% 50 ml @ 100 mls/hr IVPB DAILY@1200 [facility] Rx#:[id number] Oral 240 Output: Urine 515 725 Other: Voiding Method Bedside Commode Bedside Commode # Voids 1 2 - Exam GENERAL EXAM: Alert, very pleasant, oriented to person, place and time 71-year-old white female, on 2 L of oxygen and pulse ox of 99%, comfortable in no apparent distress. HEAD: Normocephalic/atraumatic. EYES: Normal reaction of pupils, equal size. Conjunctiva pink, sclera white. NOSE: Clear with pink turbinates. THROAT: No erythema or exudates. NECK: No masses, no JVD, no thyroid enlargement, no adenopathy. CHEST: No chest wall deformity. Symmetrical expansion. LUNGS: Equal air entry with no crackles, wheeze, rhonchi or dullness. CVS: Regular rate and rhythm, normal S1 and S2, no gallops, no murmurs, no rubs ABDOMEN: Soft, nontender. No hepatosplenomegaly, normal bowel sounds, no guarding or rigidity. EXTREMITIES: No clubbing, no edema, no cyanosis, 2+ pulses and upper and lower extremities. MUSCULOSKELETAL: Muscle strength and tone normal. SPINE: No scoliosis or deformity SKIN: No rashes CENTRAL NERVOUS SYSTEM: Alert and oriented -3. No focal neurological deficits noted - Labs CBC & Chem 7: 04/17/21 04:05 04/17/21 04:05 Labs: Abnormal Lab Results - Last 24 Hours (Table) 04/19/21 04/19/21 04/19/21 Range/Units 11:12 16:37 20:35 POC Glucose (mg/dL) 227 H 223 H 202 H (75-99) mg/dL 04/20/21 Range/Units 06:27 POC Glucose (mg/dL) 206 H (75-99) mg/dL Microbiology - Last 24 Hours (Table) 04/15/21 20:37 Blood Culture - Preliminary Blood No Growth after 96 hours 04/15/21 20:57 Blood Culture - Preliminary Blood No Growth after 96 hours Assessment and Plan Plan: Assessment: #1. Acute ischemic stroke status post TPA, patient presented with symptoms of aphasia, left leg weakness, and altered mental status. Aphasia has improved, confusion has resolved. #2. Hypertension #3. Hyperlipidemia #4. History of coronary artery disease status post stenting and previous coronary artery bypass grafting in 2017 #5. History of COPD #6. 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 Diabetes mellitus type 2 #8. Chronic hypoxic respiratory failure on home oxygen #9. ESBL E-coli tract infection, currently on Invanz Plan: Continue current antibiotics, Midline IV cath was inserted yesterday in the right AC area Hemodynamically stable Neurologically seems to be back to baseline No confusion, no agitation, No focal neurological deficits No acute events overnight Transfer to [facility] on the [facility] is pending today with 5 day course of Invanz antibiotics I performed a history & physical examination of the patient and discussed their management with my nurse practitioner, Raine Arriaga. I reviewed the nurse practitioner's note and agree with the documented findings and plan of care. Lung sounds are positive for diminished breath sounds throughout the lung robert. The findings and the impression was discussed with the patient. I at test to the documentation by the nurse practitioner. Time with Patient: Less than 30
[2021-04-20] MEDS: SYMBICORT 160-4.5 MCG INHALER INHALATION SCH (09:03)
--- NOTE | 2021-04-20 11:20 | P.PN ---
Subjective Progress Note Date: 04/18/21 Principal diagnosis: Acute ischemic stroke; status post TPA Right ICA 50% stenosis UTI Metabolic encephalopathy possibly related to ESBL UTI 71 this old female with past medical history of asthma/COPD, heart failure, coronary artery disease status post CABG, hypertension, hyperlipidemia, diabetes mellitus. She is a patient of Dr. Zelaya Patient could not provide information so it was obtained from staff, medical records. Patient symptoms started 7 PM last night with acute confusion and weakness in both legs, patient felt to have left sided weakness. And concern for expressive aphasia. Others some reports of transient improvement back to normal for short time on admission before her symptoms back again. Patient was found to be a candidate and after obtaining consent from daughter it was administered last night. Blood pressure controlled with Cardizem drip. And repeat CAT scan showed no intracranial hemorrhage. She was admitted to the intensive care unit. This morning patient is fully awake and in appropriate however she is confused to time, place and person. She only knows she is in the hospital but culture which Hospital at's. Is any specific symptoms. The last thing she remembers that she went to the bathroom. She denies previous history of stroke or TIA before. No chest pain or dyspnea. No abdominal complaint. No urinary complaints like no dysuria or change in frequency or urgency this morning she has mild weakness on the left leg and left arm compared to the right side. And her face deviated to the left side Patient presents because of acute or sent off, fusion and inability to talk or ambulate. Patient suspected to have expressive aphasia up on admission Vitas looks stable, she is mildly tachypneic with a breathing rate 15-24. Afebrile. She is saturating 90-95% on 2 L oxygen nasal cannula. CBC is unremarkable . INR is normal at 0.9. BMP and liver enzymes are unremarkable as well. Urinalysis is suspicious for infection. Urine drug screen is negative. CT of the brain: No acute abnormality CTA of the brain showing 50% stenosis of the right internal carotid artery and there is 25% stenosis of the distal right common carotid artery. No evidence of significant stenosis on the left. Repeat CAT scan of the brain this morning showing still no acute intracranial abnormality with no change. Chest x-ray showing some congestive heart failure with increased congestion. Echocardiogram from 04/2020: Ejection fraction 55-60% with moderate left ventricular hypertrophy. With mild to moderate mitral stenosis The emergency room patient received TPA. Also Keppra and Ativan 1 for suspected seizure. Pulmonary/critical care team and neurology were consulted 04/16/2021 patient is seen in follow-up in intensive care unit. Resting comfortably; easily arousable. 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 She is in sinus mechanism with a rate of 66 BPM, she is on room air with a pulse ox of 94% Currently it is 136/93, she has had no fever or chills overnight. Patient remains on Rocephin for empiric antibiotic coverage for UTI; urine cultures are pending. Patient is tolerating regular diet. Today's labs have been reviewed, with blood cell count is 12.1, hemoglobin is 12.1, serum sodium is 134, the rest of electrolytes are unremarkable, BUN is 18 creatinine 0.89. Diesel Engine Tester service is following and recommending to continue with current antibiotics till final cultures aren't available; patient will be monitored closely neurologically; plan to increase activity; patient is stable to be transferred out to selective care unit 04/17/2021, the patient is seen and evaluated at bedside; remains in ICU as selective care overflow. She is verbal. She is moving all 4 extremities. No focal neurological deficits. gram-negative bacillus in the urine and the patient is currently on IV Rocephin. Blood work from today shows a white cell count of 10.3 with a hemoglobin of 12. Normal renal function. Normal electrolytes. No other significant events over the past 24 hours. She is currently on room air oxygen. She is on aspirin and a Brilinta as antiplatelet agents she is also on Levemir insulin 22 units twice a day and a sliding scale coverage. 04/18/2021 Patient is currently sitting on the side of the bed. Left sided weakness is better. Patient is able to participating in physical therapy. No complains of chest pain or shortness of breath. No headache or dizziness or lightheadedness. Patient is being continued on Antivert in the form of ertapenem for ESBL urinary tract infection. Mentation is much improved now. Patient has been afebrile. Current medications reviewed. Objective - Vital Signs Vital signs: Vital Signs Temp 98.0 F 04/18/21 04:00 Pulse 59 L 04/18/21 16:00 Resp 18 04/18/21 16:00 BP 129/96 04/18/21 16:00 Pulse Ox 95 04/18/21 04:00 Intake & Output 04/17/21 04/18/21 04/18/21 18:59 06:59 18:59 Intake Total 290 Output Total 456 079 8443 Balance -110 -550 -1000 Weight 94.4 kg Intake: Intake, IV Titration 50 Amount cefTRIAXone 1 gm In 50 Sodium Chloride 0.9% 50 ml @ 100 mls/hr IVPB Q24HR [facility] Rx#:[id number] Oral 240 Output: Urine 018 [id number] [id number] Other: Voiding Method Bedside Commode Bedside Commode Bedside Commode # Voids 2 1 - Exam - Exam -GENERAL: The patient is confused, and agitated today. Well developed, well nourished. HEENT: Pupils are round and equally reacting to light. EOMI. No scleral icterus. No conjunctival pallor. Normocephalic, atraumatic. No pharyngeal erythema. No thyromegaly. CARDIOVASCULAR: S1 and S2 present. No murmurs, rubs, or gallops. PULMONARY: Chest is clear to auscultation, no wheezing or crackles. ABDOMEN: Soft, nontender, nondistended, normoactive bowel sounds. No palpable organomegaly. MUSCULOSKELETAL: No joint swelling or deformity. EXTREMITIES: No cyanosis, clubbing, or pedal edema. -NEUROLOGICAL: Cranial nerves are grossly intact. Mild left hemiparesis in the left arm and leg SKIN: No rashes. No petechiae - Labs CBC & Chem 7: 04/17/21 04:05 04/17/21 04:05 Labs: Abnormal Lab Results - Last 24 Hours (Table) 04/17/21 04/17/21 04/18/21 Range/Units 17:05 20:39 11:50 POC Glucose (mg/dL) 201 H 219 H 168 H (75-99) mg/dL 04/18/21 Range/Units 16:31 POC Glucose (mg/dL) 222 H (75-99) mg/dL Microbiology - Last 24 Hours (Table) 04/12/21 20:40 Blood Culture - Preliminary Blood No Growth after 120 hours 04/12/21 21:00 Blood Culture - Preliminary Blood No Growth after 120 hours 04/15/21 20:57 Blood Culture - Preliminary Blood No Growth after 48 hours 04/15/21 20:37 Blood Culture - Preliminary Blood No Growth after 48 hours Assessment and Plan Assessment: Acute CVA, with confusion, expressive aphasia and possible leg weakness. Status post TPA on 04/12. Seizure is less likely. Improved significantly still have mild left hemiparesis anticipated to the left. 50% stenosis of the origin of the right internal carotid artery. No need for surgical intervention Acute urinary tract infection with ESBL E. coli. Metabolic encephalopathy secondary to above. Improved now. Moderate to severe tricuspid regurgitation and pulmonary hypertension area and mild to moderate mitral stenosis Diabetes mellitus, with hyperglycemia. Uncontrolled on admission globin A1c 9.4% Hypertension Hyperlipidemia History of coronary artery disease status post CABG History of asthma/COPD, no acute exacerbation. Plan: This is a pleasant 71 years old female who presents because of stroke. Status post TPA. Left sided weakness is much improved now. Continue with aspirin and Brillinta. Patient will be continued on antibiotics in the form of Invanz. Continue with PT OT. Resume home medication. Monitor lytes and vitals. DVT and GI prophylaxis. Further recommendations depends on the clinical course of the patient DVT prophylaxis: Subcutaneous heparin currently. GI Prophylaxis: Pepcid Prognosis is guarded Time with Patient: Greater than 30
--- NOTE | 2021-04-20 11:28 | P.PN ---
Subjective Progress Note Date: 04/20/21 04/20/2021: Patient is laying comfortably in the bed. Denies any headache, no numbness tingling or focal weakness. Denies dizziness or any visual problems. 04/18/2021: Patient was seen for a follow-up. Patient initially seen by Dr. Dirk Maciel. Please refer to Dr. Dirk Maciel note for details. Patient has history of CVA, for which she received TPA. Patient has language deficit. Also has history of underlying cognitive impairment. MRI of the brain however revealed no acute ischemic process. Patient is currently on Brillinta. Patient states that the only thing she remembers is that she was talking to her daughter, and next thing she remembers is someone has called EMS. Patient denies any focal symptoms. She feels fine. No headache. Objective - Vital Signs Vital signs: Vital Signs Temp 97.6 F 04/20/21 04:00 Pulse 60 04/20/21 04:00 Resp 14 04/20/21 04:00 BP 158/67 04/20/21 04:00 Pulse Ox 96 04/20/21 04:00 Intake & Output 04/19/21 04/20/21 04/20/21 18:59 06:59 18:59 Intake Total 340 Output Total 515 725 Balance -175 -725 Weight 93.1 kg Intake: Intake, IV Titration 100 Amount Ertapenem 1 gm In Sodium 100 Chloride 0.9% 50 ml @ 100 mls/hr IVPB DAILY@1200 KAREN Rx#:[id number] Oral 240 Output: Urine 515 725 Other: Voiding Method Bedside Commode Bedside Commode Bedside Commode # Voids 1 2 - Exam GENERAL: The patient is lying in bed and is not in acute distress. NEUROLOGICAL: Higher mental function: The patient is awake, alert, oriented. Patient knows it is March 2021 and that she is in [facility] in [place]. Patient is able to name all objects correctly and can repeat. She is following all commands. No aphasia or dysarthria. No neglect. Comprehension intact. Cranial nerves: The pupils are round, equal and reactive to light and accommodation. Visual robert are full to confrontation throughout. Extraocular movement is intact no nystagmus is noted. Facial sensation is normal to touch throughout. The facial strength is normal throughout. Hearing is moderately decreased bilaterally to hand rub. Tongue is midline and moved [id number] without any difficulty. No dysarthria is noted. Shoulder shrug is normal bilaterally. Motor: Gait is deferred. The strength is 5/5 in upper and lower extremities. Normal tone and bulk. Cerebellum: Normal finger to nose bilaterally. Sensation: Sensation is normal to touch throughout. Reflexes (right/left): 2+ throughout uppers while lowers are 1+ bilaterally.. Plantars are downgoing bilaterally. - Labs CBC & Chem 7: 04/17/21 04:05 04/17/21 04:05 Labs: Abnormal Lab Results - Last 24 Hours (Table) 04/19/21 04/19/21 04/20/21 Range/Units 16:37 20:35 06:27 POC Glucose (mg/dL) 223 H 202 H 206 H (75-99) mg/dL Microbiology - Last 24 Hours (Table) 04/15/21 20:37 Blood Culture - Preliminary Blood No Growth after 96 hours 04/15/21 20:57 Blood Culture - Preliminary Blood No Growth after 96 hours Assessment and Plan Assessment: Possible CVA status post TPA (Pe ED NIH 7. Aphasia, leg weakness, commands), now NIH stroke scale is 0 Rule out underlying mild cognitive impairment (per daughter since 2016 and was subtle) and has moderate bilateral frontal atrophy. Chronic lower back pain with radiation to the right leg seems like radiculopathy (but per patient no worsening of her lower back pain) Diabetes mellitus and seems uncontrolled (HbA1c 9.4) History of Hypertension History of coronary artery disease status post stent History of myocardia infarction s/p CABG Heart failure Former nicotine use (stopped 11 years ago) Plan: * Continue ASA 81mg (home dose) and started on Brilinta 90mg 1 tab bid for 1 month, then may switch back to aspirin and Plavix. MRI of the brain showed no acute stroke. Continue Lipitor 80mg qhs for secondary stroke prophylaxis. LDL goal in stroke <70. * PT, OT and [employer] are consulted * Q4 hours Neuro checks . * On continuous cardiac monitoring. * EEG on 04/15/2021 because of fluctuation of mentation: Abnormal routine EEG. The background slowing is suggestive of mild encephalopathy. There are no focal slowing, epileptiform discharges or seizure on EEG. * Optimize control of diabetes and blood pressure. * Recommend patient to be discharged with event monitor. * We'll defer the rest of the medical management to the primary team and ICU team. For DVT prophylaxis: On subq heparin. Otherwise she is clear from neurological standpoint. We will sign off. WORK-UP: CT of the head is reported as cerebral atrophy. No acute intracranial abnormality. No change. CT angiography of the head and neck was reported as there is approximate 50% stenosis origin of the right internal carotid artery. There is 25% stenosis of the distal right common carotid artery. No evidence of any significant stenosis of the left. No significant intercranial and angiographic abnormality. MR the brain (post 24 hours tpa) is reported as cerebral atrophy. White matter changes change around the lateral ventricle are nonspecific and could relate to microvascular ischemic Disease. No evidence of cortical infarct. Carotid duplex was reported as extensive bilateral calcified plaque with no definite of significant hemodynamic stenosis. Repeat CT head (because of altered mental status): Reported as no acute intracranial abnormality seen. Stable moderate bifrontal atrophy and mild central cerebral volume loss. Mild burden of chronic small vessel ischemic disease. 2-D echo was reported as moderate concentric left ventricular hypertrophy. Ejection fraction of 50-55%. Basilar lateral left ventricle wall motion is hypokinetic. Left atrium is severely dilated. Hemoglobin A1c is 9.4 which her diabetes is uncontrolled. TSH is 0.35 which is considered low but the free T4 is 1.14 which is considered normal. Lipid panel is LDL 62, HDL of 34, cholesterol of 112, triglyceride of 77.
[2021-04-20 11:34] LABS: Glucose,Whole Blood 165 mg/dL (75-99)
[2021-04-20 12:02] LABS: Basophils # (A) 0.1 k/uL (0-0.2); Basophils % (A) 1 %; Eosinophils # (A) 0.4 k/uL (0-0.7); Eosinophils % (A) 5 %; HCT 39.1 % (34.0-46.0); HGB 12.8 gm/dL (11.4-16.0); Lymphocytes # (A) 1.5 k/uL (1.0-4.8); Lymphocytes % (A) 17 %; MCH 31.8 pg (25.0-35.0); MCHC 32.7 g/dL (31.0-37.0); Mean Platelet Volume 7.5; Monocytes # (A) 0.6 k/uL (0-1.0); Monocytes % (A) 7 %; Neutrophils # (A) 6.3 k/uL (1.3-7.7); Neutrophils % (A) 69 %; Platelet Count 380 k/uL (150-450); RBC 4.03 m/uL (3.80-5.40); RDW 12.9 % (11.5-15.5); WBC 9.2 k/uL (3.8-10.6)
[2021-04-20 12:17] LABS: Calcium 9.3 mg/dL (8.4-10.2); Potassium 4.3 mmol/L (3.5-5.1)
[2021-04-20] MEDS: ERTAPENEM 1 GM in SODIUM CHLORIDE 0.9% 50 ML IVPB SCH (12:57)
[2021-04-20 15:38] VITALS: BP 137/95; PULSE 54; RESP 14; TEMP 98.6
--- NOTE | 2021-04-21 13:02 | P.DS ---
Providers Date of admission: 04/12/21 21:24 Expected date of discharge: 04/20/21 Attending physician: Irwin Arredondo Consults: 04/12/21 21:24 Consult Physician Routine Consulting Provider: Dirk Maciel Consult Reason/Comments: CVA on TPA Do you want consulting provider notified?: Yes Consult Physician Stat Consulting Provider: Haven Monique Consult Reason/Comments: CVA on TPA Do you want consulting provider notified?: Already Contacted Primary care physician: Elvira Gonzales Hospital Course: Final diagnosis Acute CVA, with confusion, expressive aphasia and possible leg weakness. Status post TPA on 04/12. Seizure is less likely. Improved significantly still have mild left hemiparesis anticipated to the left. 50% stenosis of the origin of the right internal carotid artery. No need for surgical intervention Acute urinary tract infection with ESBL E. coli. Metabolic encephalopathy secondary to above. Improved now. Moderate to severe tricuspid regurgitation and pulmonary hypertension with mild to moderate mitral stenosis Diabetes mellitus, with hyperglycemia. Uncontrolled on admission hemoglobin A1c 9.4 Hypertension Hyperlipidemia History of coronary artery disease status post CABG History of asthma/COPD, no acute exacerbation. full code Discharge disposition Patient is being discharged in a stable condition with guarded prognosis to [facility] for continued PT/OT therapy. Patient will follow-up with Dr. Osborne in the ECF and to follow with Dr. Elvira Gonzales in the outpatient setting upon discharge. Patient will continue on IV Invanz daily for the next 5 days and has been started on Brilinta 90 mg twice daily. Total time taken is greater than 35 minutes. Hospital course Acute ischemic stroke; status post TPA Right ICA 50% stenosis UTI Metabolic encephalopathy possibly related to ESBL UTI 71 this old female with past medical history of asthma/COPD, heart failure, coronary artery disease status post CABG, hypertension, hyperlipidemia, diabetes mellitus. She is a patient of Dr. Zelaya Patient could not provide information so it was obtained from staff, medical records. Patient symptoms started 7 PM last night with acute confusion and weakness in both legs, patient felt to have left sided weakness. And concern for expressive aphasia. Others some reports of transient improvement back to normal for short time on admission before her symptoms back again. Patient was found to be a candidate and after obtaining consent from daughter it was administered last night. Blood pressure controlled with Cardizem drip. And repeat CAT scan showed no intracranial hemorrhage. She was admitted to the intensive care unit. This morning patient is fully awake and in appropriate however she is confused to time, place and person. She only knows she is in the hospital but culture which Hospital at's. Is any specific symptoms. The last thing she remembers that she went to the bathroom. She denies previous history of stroke or TIA before. No chest pain or dyspnea. No abdominal complaint. No urinary complaints like no dysuria or change in frequency or urgency this morning she has mild weakness on the left leg and left arm compared to the right side. And her face deviated to the left side Patient presents because of acute or sent off, fusion and inability to talk or ambulate. Patient suspected to have expressive aphasia up on admission Vitas looks stable, she is mildly tachypneic with a breathing rate 15-24. Afebrile. She is saturating 90-95% on 2 L oxygen nasal cannula. CBC is unremarkable . INR is normal at 0.9. BMP and liver enzymes are unremarkable as well. Urinalysis is suspicious for infection. Urine drug screen is negative. CT of the brain: No acute abnormality CTA of the brain showing 50% stenosis of the right internal carotid artery and there is 25% stenosis of the distal right common carotid artery. No evidence of significant stenosis on the left. Repeat CAT scan of the brain this morning showing still no acute intracranial abnormality with no change. Chest x-ray showing some congestive heart failure with increased congestion. Echocardiogram from 04/2020: Ejection fraction 55-60% with moderate left ventricular hypertrophy. With mild to moderate mitral stenosis The emergency room patient received TPA. Also Keppra and Ativan 1 for suspected seizure. Pulmonary/critical care team and neurology were consulted 04/16/2021 patient is seen in follow-up in intensive care unit. Resting comfortably; easily arousable. 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 She is in sinus mechanism with a rate of 66 BPM, she is on room air with a pulse ox of 94% Currently it is 136/93, she has had no fever or chills overnight. Patient remains on Rocephin for empiric antibiotic coverage for UTI; urine cultures are pending. Patient is tolerating regular diet. Today's labs have been reviewed, with blood cell count is 12.1, hemoglobin is 12.1, serum sodium is 134, the rest of electrolytes are unremarkable, BUN is 18 creatinine 0.89. [employer] service is following and recommending to continue with current antibiotics till final cultures aren't available; patient will be monitored closely neurologically; plan to increase activity; patient is stable to be transferred out to selective care unit 04/17/2021 the patient is seen and evaluated at bedside; remains in ICU as selective care overflow. She is verbal. She is moving all 4 extremities. No focal neurological deficits. gram-negative bacillus in the urine and the patient is currently on IV Rocephin. Blood work from today shows a white cell count of 10.3 with a hemoglobin of 12. Normal renal function. Normal electrolytes. No other significant events over the past 24 hours. She is currently on room air oxygen. She is on aspirin and a Brilinta as antiplatelet agents she is also on Levemir insulin 22 units twice a day and a sliding scale coverage. 04/18/2021 Patient is currently sitting on the side of the bed. Left sided weakness is better. Patient is able to participating in physical therapy. No complains of chest pain or shortness of breath. No headache or dizziness or lightheadedness. Patient is being continued on Antivert in the form of ertapenem for ESBL urinary tract infection. Mentation is much improved now. Patient has been afebrile. 04/20/2021 Patient is seen and evaluated in follow-up and has been accepted at [facility] for continued PT/OT therapy. Patient is continued on IV antibiotics in the form of Invanz and will continue with another 5 days at the [facility] and then may discontinue. Patient also started on Brilinta 90 mg twice daily and will continue. Patient will need outpatient neurology follow-up. Currently no reports of chest pain, shortness of breath, or palpitations. Patient is afebrile. No reports of nausea or vomiting and patient is tolerating diet. Recommend to continue with low fiber diet with dysphasia 3 chopped and continue with aspiration precautions of head of the bed elevated 30-45. Patient will be going to [facility] on the [place] today. GENERAL: The patient is awake more alert and responding more appropriately. Well developed, well nourished. HEENT: Pupils are round and equally reacting to light. EOMI. No scleral icterus. No conjunctival pallor. Normocephalic, atraumatic. No pharyngeal erythema. No thyromegaly. CARDIOVASCULAR: S1 and S2 present. No murmurs, rubs, or gallops. PULMONARY: Chest is clear to auscultation, no wheezing or crackles. ABDOMEN: Soft, nontender, nondistended, normoactive bowel sounds. No palpable organomegaly. MUSCULOSKELETAL: No joint swelling or deformity. EXTREMITIES: No cyanosis, clubbing, or pedal edema. NEUROLOGICAL: Cranial nerves are grossly intact. Mild left hemiparesis in the left arm and leg SKIN: No rashes. No petechiae On exam vital signs are stable. Cardio S1, S2 are muffled. Respiratory system shows diminished breath sounds at the bases with no wheezing or rhonchi noted. Abdomen is soft and nontender. Nervous system shows diffuse weakness. Please refer to medication reconciliation sheet for a list of medications. Patient Condition at Discharge: Fair Plan - Discharge Summary Discharge Rx Participant: No New Discharge Prescriptions: New Ticagrelor [Brilinta] 90 mg PO BID #60 tab Ertapenem [INVanz] 1 gm IVPB Q24H 5 Days #1 50ml.bag Continue Aspirin 81 mg PO HS Metoprolol Succinate [Toprol XL] 50 mg PO HS Furosemide [Lasix] 20 mg PO HS hydrOXYzine HCL [Atarax] 25 mg PO TID PRN PRN Reason: Itching Atorvastatin [Lipitor] 80 mg PO HS Acetaminophen [Tylenol] 325 mg PO Q6H PRN PRN Reason: Fever And/ Or Pain Insulin Lispro [humaLOG Kwikpen] 15 dose SQ AC-TID traMADol HCL [Ultram] 50 mg PO BID PRN PRN Reason: Pain Hydrocortisone Cream [Hydrocortisone 2.5% Cream] 1 applic TOPICAL BID Ipratropium-Albuterol Nebulize [Duoneb 0.5 mg-3 mg/3 ml Soln] 3 ml INHALATION RT-QID PRN #0 ml PRN Reason: Shortness Of Breath Or Wheezing Losartan Potassium 100 mg PO HS Budesonide-Formot 160-4.5 Mcg [Symbicort 160-4.5 Mcg Inhaler] 2 puff INHALATION RT-BID Changed Insulin Glargine,Hum.rec.anlog [Lantus Solostar Pen] 24 unit SQ BID #0 Discontinued Clopidogrel Bisulfate [Plavix] 75 mg PO HS Discharge Medication List Aspirin 81 mg PO HS 12/17/14 [History] Metoprolol Succinate [Toprol XL] 50 mg PO HS 08/30/18 [History] Furosemide [Lasix] 20 mg PO HS 05/19/20 [History] Acetaminophen [Tylenol] 325 mg PO Q6H PRN 09/23/20 [History] Atorvastatin [Lipitor] 80 mg PO HS 09/23/20 [History] hydrOXYzine HCL [Atarax] 25 mg PO TID PRN 09/23/20 [History] Insulin Lispro [humaLOG Kwikpen] 15 dose SQ AC-TID 11/11/20 [History] Hydrocortisone Cream [Hydrocortisone 2.5% Cream] 1 applic TOPICAL BID 02/07/21 [History] traMADol HCL [Ultram] 50 mg PO BID PRN 02/07/21 [History] Ipratropium-Albuterol Nebulize [Duoneb 0.5 mg-3 mg/3 ml Soln] 3 ml INHALATION R T-QID PRN #0 ml 02/09/21 [Rx] Budesonide-Formot 160-4.5 Mcg [Symbicort 160-4.5 Mcg Inhaler] 2 puff INHALATION RT-BID 04/12/21 [History] Losartan Potassium 100 mg PO HS 04/12/21 [History] Ertapenem [INVanz] 1 gm IVPB Q24H 5 Days #1 50ml.bag 04/19/21 [Rx] Insulin Glargine,Hum.rec.anlog [Lantus Solostar Pen] 24 unit SQ BID #0 04/20/21 [Rx] Ticagrelor [Brilinta] 90 mg PO BID #60 tab 04/20/21 [Rx] Follow up Appointment(s)/Referral(s): Elvira Gonzales MD [Primary Care Provider] - 1-2 days [facility], [NON-STAFF] - Discharge Disposition: TRANSFER TO SNF/F
== END 2021-04-20 16:49 | DRG 61 ==
LOC: EC 19:32 → 2SICU 21:24
PROVIDERS: ADMIT Hospitalist; ATTEND Hospitalist
PROC: 3E03317 Introduction of Other Thrombolytic into Peripheral Vein, Percutaneous Approach (ICD-10-PCS; principal; 2021-04-12)
PROC: 05H933Z Insertion of Infusion Device into Right Brachial Vein, Percutaneous Approach (ICD-10-PCS; 2021-04-19 09:25)
DX: I63.9 Cerebral infarction, unspecified (principal); I50.31 Acute diastolic (congestive) heart failure; G93.41 Metabolic encephalopathy; G81.94 Hemiplegia, unspecified affecting left nondominant side; N39.0 Urinary tract infection, site not specified; Z16.12 Extended spectrum beta lactamase (ESBL) resistance; J96.11 Chronic respiratory failure with hypoxia; I27.20 Pulmonary hypertension, unspecified; G31.89 Other specified degenerative diseases of nervous system; E11.65 Type 2 diabetes mellitus with hyperglycemia; B96.20 Unspecified Escherichia coli [E. coli] as the cause of diseases classified elsewhere; F02.80 Dementia in other diseases classified elsewhere, unspecified severity, without behavioral disturbance, psychotic disturbance, mood disturbance, and anxiety; I11.0 Hypertensive heart disease with heart failure; R47.01 Aphasia; E78.5 Hyperlipidemia, unspecified; J43.9 Emphysema, unspecified; Z79.4 Long term (current) use of insulin; R29.707 NIHSS score 7; I08.1 Rheumatic disorders of both mitral and tricuspid valves; I25.10 Atherosclerotic heart disease of native coronary artery without angina pectoris; I65.21 Occlusion and stenosis of right carotid artery; I44.0 Atrioventricular block, first degree; I44.7 Left bundle-branch block, unspecified; I25.2 Old myocardial infarction; M54.10 Radiculopathy, site unspecified; G89.29 Other chronic pain; M54.5 Low back pain; R41.89 Other symptoms and signs involving cognitive functions and awareness; R32 Unspecified urinary incontinence; Z99.81 Dependence on supplemental oxygen; Z79.82 Long term (current) use of aspirin; Z79.51 Long term (current) use of inhaled steroids; Z79.899 Other long term (current) drug therapy; Z95.5 Presence of coronary angioplasty implant and graft; Z90.49 Acquired absence of other specified parts of digestive tract; Z87.19 Personal history of other diseases of the digestive system; Z95.1 Presence of aortocoronary bypass graft; Z87.891 Personal history of nicotine dependence; Z98.890 Other specified postprocedural states; Z88.5 Allergy status to narcotic agent; Z82.49 Family history of ischemic heart disease and other diseases of the circulatory system; Z81.8 Family history of other mental and behavioral disorders
CPT/HCPCS: 36410; 36415; 37195; 70450; 70496; 70498; 70553; 71045; 76937; 80048; 80053; 80061; 80306; 80320; 81001; 82140; 82607; 82746; 83036; 83735; 83880; 84145; 84439; 84443; 84484; 85025; 85610; 85730; 87040; 87077; 87086; 87186; 93005; 93306; 93880; 94640; 94760; 95816; 96361; 96365; 99285

== ENCOUNTER → 2021-07-19 | Outpatient (CLI) | payer MEDICARE | END | disposition home or self-care (01) | LOC: RADECHMAIN 11:56 | PROVIDERS: ATTEND Psychiatry & Neurology Neurology | DX: I49.9 Cardiac arrhythmia, unspecified (principal) | CPT/HCPCS: 93270 ==

== ENCOUNTER → 2021-09-26 | Outpatient (CLI) | payer MEDICARE ==
[2021-09-26 15:43] LABS: ALT 44 U/L (8-44); AST 33 U/L (13-35); Albumin 3.7 g/dL (3.8-4.9); Albumin/Globulin Ratio 1.27 (1.60-3.17); Alkaline Phosphatase 70 U/L (41-126); Bilirubin, Conjugated <0.20 mg/dL (0.20-0.40); Chol/HDL Ratio 1.99 Ratio; Globulin 2.9 g/dL (1.6-3.3); LDL Cholesterol,Calculated 38.1 mg/dL (0.0-131.0); Total Protein 6.6 g/dL (6.2-8.2); VLDL Calculation 14.18 mg/dL (5.00-40.00)
== END | disposition home or self-care (01) ==
LOC: LABWHC1 09:24
PROVIDERS: ATTEND Internal Medicine Cardiovascular Disease
DX: E78.2 Mixed hyperlipidemia (principal)
CPT/HCPCS: 36415; 80061; 80076

== ENCOUNTER 2021-12-12 07:21 | Inpatient (IN) | payer MEDICARE ==
[2021-12-12 07:31] LABS: Glucose,Whole Blood 413 mg/dL (75-99)
--- NOTE | 2021-12-12 07:31 | ED ---
General Adult HPI - General Chief complaint: Weakness Stated complaint: Hyperglycemia/weakness Time Seen by Provider: 12/12/21 07:24 Source: patient, RN notes reviewed Mode of arrival: ambulatory Limitations: no limitations - History of Present Illness Initial comments: Patient is a pleasant 71-year-old female presenting to the emergency department general weakness. Patient has not felt well the past couple of days. Blood sugar has been in the upper 500s for the past couple of days. Patient does have some mild shortness of breath that she feels similar to her previous asthma. Patient felt more weak today and was unable to get up and walk on her own. No isolated area of weakness. No confusion. Patient does feel dry. Patient has polyuria and polydipsia. - Related Data Home Medications Medication Instructions Recorded Confirmed Metoprolol Succinate [Toprol XL] 50 mg PO HS 08/30/18 12/12/21 Furosemide [Lasix] 20 mg PO DAILY PRN 05/19/20 12/12/21 Atorvastatin [Lipitor] 80 mg PO HS 09/23/20 12/12/21 hydrOXYzine HCL [Atarax] 25 mg PO TID PRN 09/23/20 12/12/21 Insulin Lispro [humaLOG Kwikpen] 15 units SQ AC-TID 11/11/20 12/12/21 traMADol HCL [Ultram] 50 mg PO BID PRN 02/07/21 12/12/21 Budesonide-Formot 160-4.5 Mcg 2 puff INHALATION RT-BID 04/12/21 12/12/21 [Symbicort 160-4.5 Mcg Inhaler] Aspirin EC [Ecotrin Low Dose] 81 mg PO DAILY 12/12/21 12/12/21 Clopidogrel Bisulfate [Plavix] 75 mg PO DAILY 12/12/21 12/12/21 Insulin Glargine,Hum.rec.anlog 80 unit SQ HS 12/12/21 12/12/21 [Lantus Solostar Pen] Valsartan 80 mg PO HS 12/12/21 12/12/21 Allergies Allergy/AdvReac Type Severity Reaction Status Date / Time codeine AdvReac Nausea & Verified 12/12/21 09:39 Vomiting Review of Systems ROS Statement: Those systems with pertinent positive or pertinent negative responses have been documented in the HPI. ROS Other: All systems not noted in ROS Statement are negative. Constitutional: Denies: fever Eyes: Denies: eye pain ENT: Denies: ear pain Respiratory: Denies: cough Cardiovascular: Denies: chest pain Endocrine: Reports: fatigue Gastrointestinal: Denies: abdominal pain Genitourinary: Denies: dysuria Musculoskeletal: Denies: back pain Skin: Denies: rash Neurological: Reports: as per HPI, weakness. Denies: headache, numbness, paresthesias, confusion Past Medical History Past Medical History: Asthma, Coronary Artery Disease (CAD), Chest Pain / Angina, Heart Failure, COPD, Diabetes Mellitus, Hyperlipidemia, Hypertension, Myocardial Infarction (SC), Respiratory Disorder, Syncope Additional Past Medical History / Comment(s): NEBULIZER AT HOME, broncitis, emphysema, type 2 dm Last Myocardial Infarction Date:: 2010 History of Any Multi-Drug Resistant Organisms: ESBL Date of last positivie culture/infection: 04/15/21 MDRO Source:: ESBL URINE Past Surgical History: Cholecystectomy, Coronary Bypass/CABG, Heart Catheterization With Stent Additional Past Surgical History / Comment(s): 1st stent in 2010, 3 more stents placed -about 2014, open heart surgery 2016. Past Anesthesia/Blood Transfusion Reactions: No Reported Reaction Additional Past Anesthesia/Blood Transfusion Reaction / Comment(s): Claustrophobic Date of Last Stent Placement:: 2014 Past Psychological History: No Psychological Hx Reported Smoking Status: Former smoker Past Alcohol Use History: None Reported Past Drug Use History: None Reported - Past Family History Father Family Medical History: Myocardial Infarction (SC) Additional Family Medical History / Comment(s): STENT, OPEN HEART SURGERY Mother Additional Family Medical History / Comment(s): DEPRESSION, mental illness General Exam Limitations: no limitations General appearance: alert, in no apparent distress Head exam: Present: atraumatic Eye exam: Present: normal appearance ENT exam: Present: mucous membranes dry Neck exam: Present: normal inspection Respiratory exam: Present: normal lung sounds bilaterally Cardiovascular Exam: Present: regular rate, normal rhythm GI/Abdominal exam: Present: soft. Absent: tenderness Extremities exam: Present: normal inspection. Absent: pedal edema, calf tenderness Neurological exam: Present: alert, oriented X3, CN II-XII intact Expanded Neurological exam: Present: protecting the airway Speech: Present: fluid speech Cranial nerves: EOM's Intact: Normal Motor strength exam: RUE: 4, LUE: 4, RLE: 4, LLE: 4 Eye Response: (4) open spontaneously Motor Response: (6) obeys commands Verbal Response: (5) oriented Psychiatric exam: Present: normal affect, normal mood Skin exam: Present: normal color Course Vital Signs 12/12/21 12/12/21 07:22 09:15 Temperature 98.3 F Pulse Rate 72 70 Respiratory 18 18 Rate Blood Pressure 119/62 111/34 O2 Sat by Pulse 96 95 Oximetry EKG Findings - EKG Comments: EKG Findings:: Sinus rhythm with rate of 68. For screening AV block CT 245. QRS and 34. QT 453. QTC 471. Left axis. Left bundle branch block. Non specific T waves. Medical Decision Making - Medical Decision Making Patient was reevaluated and updated. Case was discussed with Dr. Palomo, who will admit for Dr. Zelaya. - Lab Data Result diagrams: 12/12/21 07:31 12/12/21 07:31 Lab Results 12/12/21 12/12/21 12/12/21 Range/Units 07:29 07:31 07:31 WBC 15.4 H (3.8-10.6) k/uL RBC 4.19 (3.80-5.40) m/uL Hgb 13.8 (11.4-16.0) gm/dL Hct 42.0 (34.0-46.0) % MCV 100.2 H (80.0-100.0) fL MCH 32.9 (25.0-35.0) pg MCHC 32.8 (31.0-37.0) g/dL RDW 11.9 (11.5-15.5) % Plt Count 320 (150-450) k/uL MPV 7.7 Neutrophils % 72 % Lymphocytes % 16 % Monocytes % 6 % Eosinophils % 3 % Basophils % 1 % Neutrophils # 11.1 H (1.3-7.7) k/uL Lymphocytes # 2.5 (1.0-4.8) k/uL Monocytes # 0.9 (0-1.0) k/uL Eosinophils # 0.5 (0-0.7) k/uL Basophils # 0.1 (0-0.2) k/uL PT 10.5 (9.0-12.0) sec INR 1.0 (<1.2) APTT 21.4 L (22.0-30.0) sec Sodium (137-145) mmol/L Potassium (3.5-5.1) mmol/L Chloride (98-107) mmol/L Carbon Dioxide (22-30) mmol/L Anion Gap mmol/L BUN (7-17) mg/dL Creatinine (0.52-1.04) mg/dL Est GFR (CKD-EPI)AfAm (>60 ml/min/1.73 sqM) Est GFR (CKD-EPI)NonAf (>60 ml/min/1.73 sqM) Glucose (74-99) mg/dL POC Glucose (mg/dL) 413 H (75-99) mg/dL POC Glu [employer] ID Sedrick Dominguez Plasma Lactic Acid Dennis (0.7-2.0) mmol/L Calcium (8.4-10.2) mg/dL Phosphorus (2.5-4.5) mg/dL Magnesium (1.6-2.3) mg/dL Total Bilirubin (0.2-1.3) mg/dL AST (14-36) U/L ALT (4-34) U/L Alkaline Phosphatase (38-126) U/L Troponin I (0.000-0.034) ng/mL NT-Pro-B Natriuret Pep pg/mL Total Protein (6.3-8.2) g/dL Albumin (3.5-5.0) g/dL TSH (0.465-4.680) mIU/L Free T4 (0.78-2.19) ng/dL Free T3 pg/mL (2.8-5.3) pg/ml Urine Color Urine Appearance (Clear) Urine pH (5.0-8.0) Ur Specific [place] (1.001-1.035) Urine Protein (Negative) Urine Glucose (UA) (Negative) Urine Ketones (Negative) Urine Blood (Negative) Urine Nitrite (Negative) Urine Bilirubin (Negative) Urine Urobilinogen (<2.0) mg/dL Ur Leukocyte Esterase (Negative) Urine RBC (0-5) /hpf Urine WBC (0-5) /hpf Urine WBC Clumps (None) /hpf Ur Squamous Epith Cells (0-4) /hpf Amorphous Sediment (None) /hpf Urine Bacteria (None) /hpf Hyaline Casts (0-2) /lpf Urine Mucus (None) /hpf Acetone, Qual (Negative) 12/12/21 12/12/21 12/12/21 Range/Units 07:31 07:31 07:31 WBC (3.8-10.6) k/uL RBC (3.80-5.40) m/uL Hgb (11.4-16.0) gm/dL Hct (34.0-46.0) % MCV (80.0-100.0) fL MCH (25.0-35.0) pg MCHC (31.0-37.0) g/dL RDW (11.5-15.5) % Plt Count (150-450) k/uL MPV Neutrophils % % Lymphocytes % % Monocytes % % Eosinophils % % Basophils % % Neutrophils # (1.3-7.7) k/uL Lymphocytes # (1.0-4.8) k/uL Monocytes # (0-1.0) k/uL Eosinophils # (0-0.7) k/uL Basophils # (0-0.2) k/uL PT (9.0-12.0) sec INR (<1.2) APTT (22.0-30.0) sec Sodium 134 L (137-145) mmol/L Potassium 4.4 (3.5-5.1) mmol/L Chloride 96 L (98-107) mmol/L Carbon Dioxide 26 (22-30) mmol/L Anion Gap 12 mmol/L BUN 38 H (7-17) mg/dL Creatinine 1.55 H (0.52-1.04) mg/dL Est GFR (CKD-EPI)AfAm 39 (>60 ml/min/1.73 sqM) Est GFR (CKD-EPI)NonAf 34 (>60 ml/min/1.73 sqM) Glucose 446 H (74-99) mg/dL POC Glucose (mg/dL) (75-99) mg/dL POC Glu [employer] ID Plasma Lactic Acid Dennis 2.8 H* (0.7-2.0) mmol/L Calcium 8.8 (8.4-10.2) mg/dL Phosphorus 3.6 (2.5-4.5) mg/dL Magnesium 2.1 (1.6-2.3) mg/dL Total Bilirubin 1.4 H (0.2-1.3) mg/dL AST 31 (14-36) U/L ALT 27 (4-34) U/L Alkaline Phosphatase 79 (38-126) U/L Troponin I (0.000-0.034) ng/mL NT-Pro-B Natriuret Pep pg/mL Total Protein 6.5 (6.3-8.2) g/dL Albumin 3.5 (3.5-5.0) g/dL TSH 0.933 (0.465-4.680) mIU/L Free T4 1.36 (0.78-2.19) ng/dL Free T3 pg/mL 3.4 (2.8-5.3) pg/ml Urine Color Yellow Urine Appearance Cloudy H (Clear) Urine pH 5.0 (5.0-8.0) Ur Specific [place] 1.017 (1.001-1.035) Urine Protein 2+ H (Negative) Urine Glucose (UA) 4+ H (Negative) Urine Ketones Negative (Negative) Urine Blood Small H (Negative) Urine Nitrite Negative (Negative) Urine Bilirubin Negative (Negative) Urine Urobilinogen <2.0 (<2.0) mg/dL Ur Leukocyte Esterase Large H (Negative) Urine RBC 9 H (0-5) /hpf Urine WBC 147 H (0-5) /hpf Urine WBC Clumps Many H (None) /hpf Ur Squamous Epith Cells 5 H (0-4) /hpf Amorphous Sediment Rare H (None) /hpf Urine Bacteria Rare H (None) /hpf Hyaline Casts 7 H (0-2) /lpf Urine Mucus Rare H (None) /hpf Acetone, Qual Negative (Negative) 12/12/21 12/12/21 Range/Units 07:31 07:31 WBC (3.8-10.6) k/uL RBC (3.80-5.40) m/uL Hgb (11.4-16.0) gm/dL Hct (34.0-46.0) % MCV (80.0-100.0) fL MCH (25.0-35.0) pg MCHC (31.0-37.0) g/dL RDW (11.5-15.5) % Plt Count (150-450) k/uL MPV Neutrophils % % Lymphocytes % % Monocytes % % Eosinophils % % Basophils % % Neutrophils # (1.3-7.7) k/uL Lymphocytes # (1.0-4.8) k/uL Monocytes # (0-1.0) k/uL Eosinophils # (0-0.7) k/uL Basophils # (0-0.2) k/uL PT (9.0-12.0) sec INR (<1.2) APTT (22.0-30.0) sec Sodium (137-145) mmol/L Potassium (3.5-5.1) mmol/L Chloride (98-107) mmol/L Carbon Dioxide (22-30) mmol/L Anion Gap mmol/L BUN (7-17) mg/dL Creatinine (0.52-1.04) mg/dL Est GFR (CKD-EPI)AfAm (>60 ml/min/1.73 sqM) Est GFR (CKD-EPI)NonAf (>60 ml/min/1.73 sqM) Glucose (74-99) mg/dL POC Glucose (mg/dL) (75-99) mg/dL POC Glu [employer] ID Plasma Lactic Acid Dennis (0.7-2.0) mmol/L Calcium (8.4-10.2) mg/dL Phosphorus (2.5-4.5) mg/dL Magnesium (1.6-2.3) mg/dL Total Bilirubin (0.2-1.3) mg/dL AST (14-36) U/L ALT (4-34) U/L Alkaline Phosphatase (38-126) U/L Troponin I 0.063 H* (0.000-0.034) ng/mL NT-Pro-B Natriuret Pep 335 pg/mL Total Protein (6.3-8.2) g/dL Albumin (3.5-5.0) g/dL TSH (0.465-4.680) mIU/L Free T4 (0.78-2.19) ng/dL Free T3 pg/mL (2.8-5.3) pg/ml Urine Color Urine Appearance (Clear) Urine pH (5.0-8.0) Ur Specific [place] (1.001-1.035) Urine Protein (Negative) Urine Glucose (UA) (Negative) Urine Ketones (Negative) Urine Blood (Negative) Urine Nitrite (Negative) Urine Bilirubin (Negative) Urine Urobilinogen (<2.0) mg/dL Ur Leukocyte Esterase (Negative) Urine RBC (0-5) /hpf Urine WBC (0-5) /hpf Urine WBC Clumps (None) /hpf Ur Squamous Epith Cells (0-4) /hpf Amorphous Sediment (None) /hpf Urine Bacteria (None) /hpf Hyaline Casts (0-2) /lpf Urine Mucus (None) /hpf Acetone, Qual (Negative) - Radiology Data Radiology results: report reviewed (CT brain reveals no acute process.), image reviewed (Chest x-ray shows no acute process) Disposition Clinical Impression: Urinary tract infection, Weakness, Hyperglycemia, Dehydration Disposition: ADMITTED IP TO THIS HOSP Is patient prescribed a controlled substance at d/c from ED?: No Referrals: Elvira Gonzales MD [Primary Care Provider] - 1-2 days Time of Disposition: 09:11
[2021-12-12 07:43] LABS: Basophils # (A) 0.1 k/uL (0-0.2); Basophils % (A) 1 %; Eosinophils # (A) 0.5 k/uL (0-0.7); Eosinophils % (A) 3 %; HGB 13.8 gm/dL (11.4-16.0); Lymphocytes # (A) 2.5 k/uL (1.0-4.8); Lymphocytes % (A) 16 %; MCH 32.9 pg (25.0-35.0); MCHC 32.8 g/dL (31.0-37.0); MCV 100.2 fL (80.0-100.0); Mean Platelet Volume 7.7; Monocytes # (A) 0.9 k/uL (0-1.0); Monocytes % (A) 6 %; Neutrophils # (A) 11.1 k/uL (1.3-7.7); Neutrophils % (A) 72 %; Platelet Count 320 k/uL (150-450); RBC 4.19 m/uL (3.80-5.40); RDW 11.9 % (11.5-15.5); WBC 15.4 k/uL (3.8-10.6)
[2021-12-12 08:04] LABS: Prothrombin Time 10.5 sec (9.0-12.0)
[2021-12-12 08:14] LABS: ALT 27 U/L (4-34); AST 31 U/L (14-36); African American GFR (CKD) 39 (>60 ml/min/1.73 sqM); Albumin 3.5 g/dL (3.5-5.0); Alkaline Phosphatase 79 U/L (38-126); Anion Gap 12 mmol/L; Blood Urea Nitrogen 38 mg/dL (7-17); Calcium 8.8 mg/dL (8.4-10.2); Carbon Dioxide 26 mmol/L (22-30); Chloride 96 mmol/L (98-107); Glucose 446 mg/dL (74-99); Magnesium 2.1 mg/dL (1.6-2.3); Non-African American GFR(CKD) 34 (>60 ml/min/1.73 sqM); Phosphorus 3.6 mg/dL (2.5-4.5); Potassium 4.4 mmol/L (3.5-5.1); Sodium 134 mmol/L (137-145); Total Bilirubin 1.4 mg/dL (0.2-1.3); Total Protein 6.5 g/dL (6.3-8.2)
[2021-12-12 08:20] LABS: Partial Thromboplastin Time 21.4 sec (22.0-30.0)
--- NOTE | 2021-12-12 08:25 | CT ---
EXAMINATION TYPE: CT brain wo con DATE OF EXAM: 12/12/2021 COMPARISON: CT dated 04/14/2021 HISTORY: Weakness CT DLP: 1135.4 mGycm Automated exposure control for dose reduction was used. TECHNIQUE: CT scan of the brain is performed without IV contrast administration. FINDINGS: Brain volume loss changes, likely age-related. Bilateral cerebral white matter hypodensities, likely representing mild chronic microvascular ischemic changes. Scattered arterial atherosclerotic calcific ations. No acute intracranial hemorrhage. No gross acute cortical infarct. No midline shift, herniation or ve ntriculomegaly. Unremarkable stevens-white matter differentiation, basal cisterns, sella and CP angles. No gross space-o ccupying lesion, vasogenic edema or mass effect. Unremarkable orbits. Clear visualized paranasal sinuses and mastoid air cells. Unremarkable calvarial bones. IMPRESSION: No acute intracranial abnormality or gross space-occupying lesion by this nonenhanced CT scan.
[2021-12-12 08:31] LABS: T4, Free (Free Thyroxine) 1.36 ng/dL (0.78-2.19)
[2021-12-12 08:36] LABS: Amorphous Sediment,Urine Rare /hpf; Appearance,Urine Cloudy (Clear); Bacteria,Urine Rare /hpf; Bilirubin,Urine Negative (Negative); Blood,Urine Small (Negative); Color,Urine Yellow; Glucose,Urine (UA) 4+ (Negative); Hyaline Casts,Urine 7 /lpf (0-2); Ketones,Urine Negative (Negative); Leukocyte Esterase,Urine Large (Negative); Mucus,Urine Rare /hpf; Nitrite,Urine Negative (Negative); Protein,Urine 2+ (Negative); RBC,Urine 9 /hpf (0-5); Specific Gravity,Urine 1.017 (1.001-1.035); Squamous Epithelial Cell,Urine 5 /hpf (0-4); Urobilinogen,Urine <2.0 mg/dL (<2.0); WBC,Urine 147 /hpf (0-5)
--- NOTE | 2021-12-12 09:10 | XR ---
EXAMINATION TYPE: XR chest 2V DATE OF EXAM: 12/12/2021 COMPARISON: 04/12/2021 HISTORY: Shortness of breath TECHNIQUE: Frontal and lateral views of the chest are obtained. FINDINGS: Scattered senescent parenchymal changes noted. No evidence for infiltrate. No evidence for atelectasis. Heart size is stable. Mediastinal structures are stable and grossly unremarkable. No evidence for hilar prominence. Degenerative changes dorsal spine. IMPRESSION: 1. No evidence for acute pulmonary disease.
[2021-12-12] MEDS ORDERED: IBUPROFEN 400 MG TAB PO PRN (09:57)
[2021-12-12] MEDS ORDERED: NALOXONE 0.4 MG/ML 1 ML VIAL IV PRN (09:57)
[2021-12-12 11:40] LABS: Glucose,Whole Blood 420 mg/dL (75-99)
[2021-12-12] MEDS: INSULIN ASPART (NovoLOG) 100 UNIT/ML VIAL SQ SCH ×5 (11:51→19:55)
[2021-12-12] MEDS: SODIUM CHLORIDE 0.9% 1,000 ML IV SCH ×2 (11:54→21:52)
[2021-12-12] MEDS ORDERED: INSULIN DETEMIR (LEVEMIR) 100 UNIT/ML SYR SQ STA (11:58)
[2021-12-12] MEDS ORDERED: HYDROmorphone 0.5 MG/0.5 ML SYRINGE IVP PRN (12:31)
[2021-12-12] MEDS ORDERED: HYDROcodone/APAP 5-325MG 1 EACH TAB PO PRN (12:32)
[2021-12-12] MEDS ORDERED: traMADol 50 MG TAB PO PRN (13:03)
[2021-12-12 13:36] LABS: Glucose,Whole Blood 316 mg/dL (75-99)
[2021-12-12] MEDS: PANTOPRAZOLE 40 MG/10 ML VIAL IVP SCH ×2 (13:45→19:55)
[2021-12-12] MEDS: HEPARIN SODIUM,PORCINE/PF 5,000 UNIT/0.5 ML SYRINGE SQ SCH ×2 (13:45→19:56)
--- NOTE | 2021-12-12 14:50 | HP ---
HISTORY AND PHYSICAL CHIEF COMPLAINTS: Abdominal pain, weakness, hyperglycemia and back pain. HISTORY OF PRESENT ILLNESS: This 71-year-old woman with a past medical history of multiple medical problems, including asthma, history of CHF and COPD, being followed by Dr. Gonzales in the outpatient setting, was complaining of generalized weakness and hypoglycemia. Patient was complaining of abdominal back pain. The sugars have been in the 500s. The patient's ketone was negative. Patient was admitted for further evaluation and treatment. The patient was also found to have some dehydration. There is no history of any fever, rigor or chills at this time. As mentioned earlier, the creatinine was found to be 1.55 and acetone was negative. CO2 was 26. PAST MEDICAL HISTORY: CAD, COPD, CVA, dementia, diabetes mellitus, type 2. HOME MEDICATIONS: Reviewed. They include valsartan, Plavix. Doses and rest of the medications, including insulin, are reviewed. ALLERGIES: CODEINE. FAMILY HISTORY: History of CAD, myocardial infarction. SOCIAL HISTORY: Previous history of smoking. REVIEW OF SYSTEMS: Fourteen-point review of systems negative except as mentioned earlier. PHYSICAL EXAMINATION: Pulse is 72, blood pressure 119/62, respiration 18. HEENT: Conjunctivae normal. Oral mucosa dry. NECK: Obese. CARDIOVASCULAR: S1, S2 muffled. RESPIRATION: Breath sounds diminished at the bases. No rhonchi. No crackles. ABDOMEN: Soft, obese. Mild diffuse discomfort in the epigastrium present. LEGS: Minimal edema. NERVOUS SYSTEM: Diffusely weak. SKIN: No ulcer, rash, bleeding. JOINTS: No active deforming arthropathy. LABS: WBC 15. Sugars are noted. ASSESSMENT: 1. Acute hyperglycemia with hyperosmolar state. 2. Acute urinary tract infection. 3. Troponin 0.063. 4. Weakness. 5. Abdominal pain. 6. History of congestive heart failure. 7. Chronic obstructive pulmonary disease. 8. Diabetes mellitus, type 2. RECOMMENDATIONS AND DISCUSSION: In this 71-year-old woman who presented with multiple complex medical issues, at this time I recommend to continue the current medications. I would recommend monitoring the blood sugars closely. If sugars are more than 400, recommend IV insulin drip until the sugars are less than 200 mg . Otherwise, empiric IV antibiotics, cultures. Repeat labs. The prognosis is guarded because of multiple complex medical issues. Further recommendations to follow. Will monitor the troponin also. See orders for further details. Further recommendations to follow. MMODL / IJN: [id number] / MTDJonatan
[2021-12-12 16:53] LABS: Glucose,Whole Blood 187 mg/dL (75-99)
[2021-12-12 19:00] LABS: Glucose,Whole Blood 346 mg/dL (75-99)
[2021-12-12] MEDS: ATORVASTATIN 80 MG TAB PO SCH (19:56)
[2021-12-12] MEDS: METOPROLOL SUCCINATE (ER) 50 MG TAB.ER.24H PO SCH (19:56)
[2021-12-12] MEDS: INSULIN DETEMIR (LEVEMIR) 100 UNIT/ML SYR SQ SCH (19:56)
[2021-12-12] MEDS: VALSARTAN 80 MG TAB PO SCH (19:57)
[2021-12-12] MEDS: ACETAMINOPHEN TAB 325 MG TAB PO PRN (20:08)
[2021-12-12] MEDS: SYMBICORT 160-4.5 MCG INHALER INHALATION SCH (21:15)
[2021-12-13] MEDS: ACETAMINOPHEN TAB 325 MG TAB PO PRN ×3 (05:28→20:57)
[2021-12-13 06:54] LABS: Glucose,Whole Blood 67 mg/dL (75-99)
[2021-12-13] MEDS: INSULIN ASPART (NovoLOG) 100 UNIT/ML VIAL SQ SCH ×7 (06:58→20:59)
[2021-12-13 07:21] LABS: Basophils # (A) 0.1 k/uL (0-0.2); Basophils % (A) 1 %; Eosinophils # (A) 0.5 k/uL (0-0.7); Eosinophils % (A) 4 %; HCT 38.9 % (34.0-46.0); HGB 12.8 gm/dL (11.4-16.0); Lymphocytes % (A) 23 %; MCH 33.3 pg (25.0-35.0); MCV 100.8 fL (80.0-100.0); Mean Platelet Volume 8.1; Monocytes # (A) 0.9 k/uL (0-1.0); Monocytes % (A) 7 %; Neutrophils # (A) 8.1 k/uL (1.3-7.7); Neutrophils % (A) 63 %; Platelet Count 298 k/uL (150-450); RBC 3.85 m/uL (3.80-5.40); RDW 11.8 % (11.5-15.5); WBC 12.9 k/uL (3.8-10.6)
[2021-12-13 07:22] LABS: Glucose,Whole Blood 86 mg/dL (75-99)
[2021-12-13 07:27] LABS: Calcium 8.3 mg/dL (8.4-10.2); Potassium 3.7 mmol/L (3.5-5.1)
[2021-12-13] MEDS: SYMBICORT 160-4.5 MCG INHALER INHALATION SCH ×2 (08:23→20:37)
[2021-12-13 10:17] LABS: Glucose,Whole Blood 157 mg/dL (75-99)
[2021-12-13 10:53] VITALS: BMI 37.2
[2021-12-13] MEDS: CLOPIDOGREL 75 MG TAB PO SCH (11:20)
[2021-12-13] MEDS: HEPARIN SODIUM,PORCINE/PF 5,000 UNIT/0.5 ML SYRINGE SQ SCH ×2 (11:21→20:58)
[2021-12-13] MEDS: PANTOPRAZOLE 40 MG/10 ML VIAL IVP SCH (11:21)
[2021-12-13 11:43] LABS: Glucose,Whole Blood 152 mg/dL (75-99)
--- NOTE | 2021-12-13 14:21 | PN ---
PROGRESS NOTE DATE OF SERVICE: 12/13/2021 This 71-year-old woman was admitted with uncontrolled diabetes mellitus and also had elevated troponin. No chest pain. No palpitations. No fever. PHYSICAL EXAMINATION: Pulse is 59, blood pressure 140/70, respiration 18. CHEST: Clear to auscultation. CARDIOVASCULAR: S1, S2 muffled. ABDOMEN: Soft, nontender. NERVOUS SYSTEM: No focal deficit. LABS: Reviewed. ASSESSMENT: 1. Acute hyperglycemia with hyperosmolar state with uncontrolled diabetes mellitus, type 2. 2. Acute urinary tract infection. 3. Troponin 0.063. 4. Weakness. 5. Abdominal pain. 6. History of congestive heart failure. 7. Chronic obstructive pulmonary disease. 8. Diabetes mellitus, type 2. RECOMMENDATIONS AND DISCUSSION: I recommend to continue current medications, continue with the monitoring, symptomatic treatment. Monitor blood sugars closely. Repeat labs. Otherwise, we will obtain cardiology consultation. Prognosis guarded. Further recommendations to follow. MMAVELINAL / SIENNAN: [id number] /
[2021-12-13] MEDS: SODIUM CHLORIDE 0.9% 1,000 ML IV SCH (14:53)
--- NOTE | 2021-12-13 14:57 | CDI ---
Documentation Clarification Form Date: 12/13/2021 10:54:00 AM From: Breanna Moe CCS, CCDS Admit Date: 12/12/2021 09:57:00 AM Patient Name: Nancy Shah Visit Number: [id number] Discharge Date: ATTENTION: The Clinical Documentation Specialists (CDI) and [facility] Coding Staff appreciate your assistance in clarifying documentation. Please respond to the clarification below the line at the bottom and electronically sign. The CDI & [facility] Coding staff will review the response and follow-up if needed. Please note: Queries are made part of the Legal Health Record. If you have any questions, please contact the author of this message via ITS. Dr. Irwin Arredondo: The patient presented with the following clinical indicators: Weakness, mild SOB, Blood sugar in upper 500s for a few days, polyuria & polydipsia, abdominal & back pain & dehydration. Additional clarification regarding the etiology/cause of the clinical indicators is requested. History/Risk Factors per the 12/12 H/P: CAD, COPD, CVA, Dementia, DM II, Former smoker. Clinical Indicators: Presented to the ED on 12/12 with the above documented signs/symptoms. Admit with UTI, Weakness, Hyperglycemia & Dehydration. 12/12 VS: T 98.3, P 72, R 18, BP 119/62, PO 96 RA 12/12 LAB: WBC 15.4, Neutrophils 11.1; APTT 21.4; Na 134, Chloride 96, BUN 38, Creatinine 1.55, Glucose 446, Lactic Acid 2.8, 1.2; total Bilirubin 1.4, Troponin 0.063 UA: Cloudy, 2+ Protein, 4+ glucose, Small Blood, Large Esterase, RBC 9, WBC 147 12/12 CT Brain: No acute intracranial abnormality or gross space-occupying lesion. CXR: No evidence of acute pulmonary disease. Treatment 12/12: Blood glucose Monitoring, Insulin Sliding Scale, Blood Cultures x2, Urine Culture, O2 2Lnc (patient on room air), po Tylenol 650 mg q6H, IV Na Cl 1,000 mls @ 75 mls/hr q13H, IV Rocephin 50 mls @ 100 mls/hr q12H, Insulin (Levemir) 40 units SQ x1, Insulin (Novolog) 15 units SQ TID, IV Dilaudid 0.5 mg q6H, IV Protonix 40 mg BID, Heparin 5,000 units SQ q12H, INH Symbicort 2 puffs BID No Consults ordered. In your professional opinion, please clarify if these findings signify one of the following conditions: [ ] Sepsis POA [ ] Sepsis, Not POA [ ] SIRS, without underlying infectious process [ ] Other, please specify [ ] Unable to determine (Template Last Reviewed: September 2020) no sepsis MTDD
[2021-12-13 15:26] LABS: T4, Free (Free Thyroxine) 1.37 ng/dL (0.78-2.19)
[2021-12-13 16:47] LABS: Glucose,Whole Blood 188 mg/dL (75-99)
[2021-12-13] MEDS: PANTOPRAZOLE 40 MG TABLET PO SCH (17:33)
[2021-12-13 20:24] LABS: Glucose,Whole Blood 210 mg/dL (75-99)
[2021-12-13] MEDS: METOPROLOL SUCCINATE (ER) 50 MG TAB.ER.24H PO SCH (20:57)
[2021-12-13] MEDS: VALSARTAN 80 MG TAB PO SCH (20:58)
[2021-12-13] MEDS: ATORVASTATIN 80 MG TAB PO SCH (20:58)
[2021-12-13] MEDS: INSULIN DETEMIR (LEVEMIR) 100 UNIT/ML SYR SQ SCH (20:59)
[2021-12-14] MEDS: SODIUM CHLORIDE 0.9% 1,000 ML IV SCH ×2 (01:00→17:29)
[2021-12-14 03:41] VITALS: RESP 18
[2021-12-14 06:37] LABS: Basophils # (A) 0.1 k/uL (0-0.2); Basophils % (A) 1 %; Eosinophils # (A) 0.5 k/uL (0-0.7); Eosinophils % (A) 6 %; HCT 37.9 % (34.0-46.0); HGB 12.7 gm/dL (11.4-16.0); Lymphocytes % (A) 21 %; MCH 34.2 pg (25.0-35.0); MCHC 33.6 g/dL (31.0-37.0); MCV 101.8 fL (80.0-100.0); Mean Platelet Volume 7.9; Monocytes # (A) 0.7 k/uL (0-1.0); Monocytes % (A) 7 %; Neutrophils # (A) 6.1 k/uL (1.3-7.7); Neutrophils % (A) 63 %; Platelet Count 288 k/uL (150-450); RBC 3.72 m/uL (3.80-5.40); RDW 12.5 % (11.5-15.5); WBC 9.6 k/uL (3.8-10.6)
[2021-12-14 06:43] LABS: Glucose,Whole Blood 163 mg/dL (75-99)
[2021-12-14 06:52] LABS: Albumin 2.8 g/dL (3.5-5.0); Calcium 8.3 mg/dL (8.4-10.2); Potassium 4.5 mmol/L (3.5-5.1); Total Bilirubin 0.6 mg/dL (0.2-1.3); Total Protein 5.7 g/dL (6.3-8.2)
[2021-12-14] MEDS: INSULIN ASPART (NovoLOG) 100 UNIT/ML VIAL SQ SCH ×7 (06:59→21:16)
[2021-12-14] MEDS: PANTOPRAZOLE 40 MG TABLET PO SCH ×2 (07:05→17:29)
[2021-12-14] MEDS: SYMBICORT 160-4.5 MCG INHALER INHALATION SCH ×2 (08:34→21:34)
[2021-12-14] MEDS: CLOPIDOGREL 75 MG TAB PO SCH (09:51)
[2021-12-14] MEDS: HEPARIN SODIUM,PORCINE/PF 5,000 UNIT/0.5 ML SYRINGE SQ SCH ×2 (09:51→20:09)
[2021-12-14] MEDS: ACETAMINOPHEN TAB 325 MG TAB PO PRN (09:54)
--- NOTE | 2021-12-14 09:54 | CA ---
Transthoracic Echo Report Name: Nancy Shah Age: 71 Gender: F : 1950 Exam Date: 12/13/2021 14:45 Exam Location: [place] [facility] Ht (in): 63 Wt (lb): 210 Ordering Physician: Judith Brown Attending/Referring Phys: Director Mba Audrey Ferrer RDCS Procedure CPT: Indications: elevated troponins Cardiac Hx: Technical Quality: Fair Contrast 1: Total Dose (mL): Contrast 2: Total Dose (mL): MEASUREMENTS (Male / Female) Normal Values 2D ECHO LV Diastolic Diameter PLAX 4.3 cm 4.2 - 5.9 / 3.9 - 5.3 cm LV Systolic Diameter PLAX 2.7 cm IVS Diastolic Thickness 1.4 cm 0.6 - 1.0 / 0.6 - 0.9 cm LVPW Diastolic Thickness 1.4 cm 0.6 - 1.0 / 0.6 - 0.9 cm LV Relative Wall Thickness 0.7 RV Internal Dim ED PLAX 2.9 cm M-MODE Aortic Root Diameter MM 3.2 cm AV Cusp Separation MM 1.6 cm DOPPLER AV Peak Velocity 161.5 cm/s AV Peak Gradient 10.4 mmHg MV Peak Velocity 132.5 cm/s MV Peak Gradient 7.0 mmHg MV Mean Velocity 82.0 cm/s MV Mean Gradient 3.0 mmHg MV Velocity Time Integral 48.1 cm MV Area PHT 1.9 cm Mitral E Point Velocity 103.0 cm/s Mitral A Point Velocity 119.9 cm/s Mitral E to A Ratio 0.9 MV Deceleration Time 398.7 ms FINDINGS Left Ventricle Left ventricular ejection fraction is estimated at 55-60% Moderately increased left ventricular wall thickness. Right Ventricle Normal right ventricular size and function. Normal right ventricular size. Right Atrium Normal right atrial size. Left Atrium Normal left atrial size. Mitral Valve Moderate thickening/calcification of the anterior mitral valve leaflet. Moderate thickening/calcification of the posterior mitral valve leaflet. Mitral stenosis. Aortic Valve Thickened aortic valve without stenosis. Tricuspid Valve Structurally normal tricuspid valve. Pulmonic Valve Pulmonic valve not well visualized. Pericardium No pericardial or pleural effusion. Aorta Normal size aortic root and proximal ascending aorta. CONCLUSIONS #1. Moderate left ventricular concentric hypertrophy with preserved LV function. #2. Thickening and calcification of the mitral leaflets with evidence of calcific mitral stenosis of mild degree #3. Thickened aortic valve leaflets without any stenosis or regurgitation. #4. No pericardial effusion Previewed by: Dr. Nolan Snow MD (Electronically Signed) Final Date: 14 December 2021 09:53
--- NOTE | 2021-12-14 10:58 | P.CRDCN ---
History of Present Illness Consult date: 12/14/21 History of present illness: HISTORY OF PRESENT ILLNESS: This is a 71-year-old female with a past medical history significant for coronary artery disease with previous CABG, congestive heart failure, hypertension, hyperlipidemia, and diabetes. Patient follows in the office with Dr. Flannery. We have been asked to see the patient in consultation for abnormal troponins. Patient examined at the bedside. He presented to the hospital with a chief complaint of weakness. She states that she has been having a hard time getting out of bed and ambulating. She reports having some leg cramps also for the past few days. She denies any chest pain or pressure. Denies any shortness of breath. Denies any dizziness or lightheadedness. * EKG reveals sinus mechanism with first-degree AV block and left bundle branch block * Chest xray no evidence for acute cardiopulmonary disease * Laboratory data: WBC 9.6. Hemoglobin 12.7. Platelet count 288. Sodium 137. Potassium 4.5. BUN 31. Creatinine 1.11. Troponin 0.063. 0.032. 0.035. * Current home cardiac medications include valsartan 80 mg at night, Plavix 75 mg daily, metoprolol succinate 50 mg at night, aspirin 81 mg daily, Lasix 20 mg daily as needed, Lipitor 80 mg daily * Echocardiogram completed revealing moderate LVH with preserved LV function. REVIEW OF SYSTEMS: At the time of my exam: CONSTITUTIONAL: Denies fever or chills. HEENT: Denies blurred vision, vision changes, or eye pain. Denies hemoptysis CARDIOVASCULAR: Denies chest pain. Denies orthopnea. Denies PND. Denies palpitations RESPIRATORY: Denies shortness of breath. GASTROINTESTINAL: Denies abdominal pain. Denies nausea or vomiting. HEMATOLOGIC: Denies bleeding disorders. GENITOURINARY: Denies any blood in urine. SKIN: Denies pruitis. Denies rash. PHYSICAL EXAM: VITAL SIGNS: Reviewed. GENERAL: Well-developed in no acute distress. HEENT: Head is normocephalic. Pupils are equal, round. Sclerae anicteric. Mucous membranes of the mouth are moist. Neck supple. No JVD or thyromegaly LUNGS: Respirations even and unlabored. Lungs essentially clear to auscultation bilaterally. HEART: Regular rate and rhythm. S1 and S2 heard. ABDOMEN: Soft. Nondistended. Nontender. EXTREMITIES: Normal range of motion. No clubbing or cyanosis. Peripheral pulses intact. No lower extremity edema NEUROLOGIC: Awake and alert. Oriented x 3. ASSESSMENT: Generalized weakness Diabetes with hyperglycemia Urinary tract infection Abnormal troponins, not suggestive of acute coronary syndrome Coronary artery disease with previous CABG Chronic congestive heart failure with preserved ejection fraction Hypertension Hyperlipidemia PLAN: 2-D echo obtained and reviewed Abnormal troponins are likely secondary to infectious process and are not suggestive of acute coronary syndrome Continue home cardiac medications No further inpatient recommendations from a cardiac standpoint We will sign off. Please reconsult if needed. Nurse practitioner note has been reviewed by physician. Signing provider agrees with the documented findings, assessment, and plan of care. 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, R caratid artery disease, valvular disease, pulmonary htn, bronchitis, home oxygen prn, poor vision/pt cannot recall reason, UTIs, rash/itching Last Myocardial Infarction Date:: 2014 History of Any Multi-Drug Resistant Organisms: ESBL Date of last positivie culture/infection: 04/15/21 MDRO Source:: ESBL URINE Past Surgical History: Cholecystectomy, Coronary Bypass/CABG, Heart Catheterization With Stent Additional Past Surgical History / Comment(s): PCI/stents in 2009 and 2014, 2016 CABG 3 vessel then sternal debridement for infection/removal of hardware, colonoscopy, bilateral cataract removals. Past Anesthesia/Blood Transfusion Reactions: No Reported Reaction Additional Past Anesthesia/Blood Transfusion Reaction / Comment(s): Claustrophobic Date of Last Stent Placement:: 2014 Past Psychological History: No Psychological Hx Reported Additional Psychological History / Comment(s): Pt's mague lives with her. Pt states she uses no assistive device. She has a nebulizer and home oxygen which she uses prn. She no longer drives, her mague takes her to appts. Smoking Status: Former smoker Past Alcohol Use History: None Reported Additional Past Alcohol Use History / Comment(s): Pt started smoking in 1963 and quit in 2009 Past Drug Use History: None Reported - Past Family History Father Family Medical History: Coronary Artery Disease (CAD), Myocardial Infarction ([place]) Additional Family Medical History / Comment(s): STENT, OPEN HEART SURGERY Mother Additional Family Medical History / Comment(s): DEPRESSION, mental illness Medications and Allergies Home Medications Medication Instructions Recorded Confirmed Type Metoprolol Succinate [Toprol XL] 50 mg PO HS 08/30/18 12/12/21 History Furosemide [Lasix] 20 mg PO DAILY PRN 05/19/20 12/12/21 History Atorvastatin [Lipitor] 80 mg PO HS 09/23/20 12/12/21 History hydrOXYzine HCL [Atarax] 25 mg PO TID PRN 09/23/20 12/12/21 History Insulin Lispro [humaLOG Kwikpen] 15 units SQ AC-TID 11/11/20 12/12/21 History traMADol HCL [Ultram] 50 mg PO BID PRN 02/07/21 12/12/21 History Budesonide-Formot 160-4.5 Mcg 2 puff INHALATION RT-BID 04/12/21 12/12/21 History [Symbicort 160-4.5 Mcg Inhaler] Aspirin EC [Ecotrin Low Dose] 81 mg PO DAILY 12/12/21 12/12/21 History Clopidogrel Bisulfate [Plavix] 75 mg PO DAILY 12/12/21 12/12/21 History Insulin Glargine,Hum.rec.anlog 80 unit SQ HS 12/12/21 12/12/21 History [Lantus Solostar Pen] Valsartan 80 mg PO HS 12/12/21 12/12/21 History Allergies Allergy/AdvReac Type Severity Reaction Status Date / Time codeine AdvReac Nausea & Verified 12/12/21 09:39 Vomiting Physical Exam Vitals: Vital Signs Temp Pulse Pulse Resp BP Pulse Ox 12/14/21 09:50 97.8 F 66 18 125/87 94 L 12/14/21 08:00 18 12/14/21 03:39 97.9 F 58 L 18 148/61 97 12/14/21 00:00 67 16 135/64 97 12/13/21 20:00 97.5 F L 67 18 136/84 97 12/13/21 15:40 98.2 F 64 18 140/77 97 12/13/21 14:00 61 59 L 18 12/13/21 11:44 98.2 F 59 L 18 143/73 96 Intake and Output 12/13/21 12/14/21 12/14/21 22:59 06:59 14:59 Intake Total 360 Output Total 2 Balance 358 Intake: Oral 360 Output: Urine 2 Other: Voiding Method Toilet # Voids 2 2 Results 12/14/21 05:31 12/14/21 05:31 Cardiac Enzymes 12/14/21 12/14/21 12/14/21 Range/Units 05:31 05:31 08:31 AST 30 (14-36) U/L Troponin I 0.032 0.035 H* (0.000-0.034) ng/mL CBC 12/14/21 Range/Units 05:31 WBC 9.6 (3.8-10.6) k/uL RBC 3.72 L (3.80-5.40) m/uL Hgb 12.7 (11.4-16.0) gm/dL Hct 37.9 (34.0-46.0) % Plt Count 288 (150-450) k/uL Comprehensive Metabolic Panel 12/14/21 Range/Units 05:31 Sodium 137 (137-145) mmol/L Potassium 4.5 (3.5-5.1) mmol/L Chloride 109 H (98-107) mmol/L Carbon Dioxide 24 (22-30) mmol/L BUN 31 H (7-17) mg/dL Creatinine 1.11 H (0.52-1.04) mg/dL Glucose 179 H (74-99) mg/dL Calcium 8.3 L (8.4-10.2) mg/dL AST 30 (14-36) U/L ALT 24 (4-34) U/L Alkaline Phosphatase 57 (38-126) U/L Total Protein 5.7 L (6.3-8.2) g/dL Albumin 2.8 L (3.5-5.0) g/dL Current Medications Generic Name Dose Route Start Last Admin Trade Name Freq PRN Reason Stop Dose Admin Acetaminophen 650 mg 12/12/21 09:57 12/14/21 09:54 Acetaminophen Tab 325 Mg Tab PO 650 mg Q6HR PRN Administration Mild Pain or Fever > 100.5 Hydrocodone Bitart/Acetaminophen 1 each 12/12/21 12:32 12/13/21 23:23 Hydrocodone/Apap 5-325mg 1 Each Tab PO 1 each Q6HR PRN Administration Pain Atorvastatin Calcium 80 mg 12/12/21 21:00 12/13/21 20:58 Atorvastatin 80 Mg Tab PO 80 mg HS KAREN Administration Budesonide/Formoterol Fumarate 2 puff 12/12/21 20:00 12/14/21 08:34 Symbicort 160-4.5 Mcg Inhaler INHALATION 2 puff RT-BID KAREN Administration Clopidogrel Bisulfate 75 mg 12/13/21 09:00 12/14/21 09:51 Clopidogrel 75 Mg Tab PO 75 mg DAILY KAREN Administration Heparin Sodium (Porcine) 5,000 unit 12/12/21 13:30 12/14/21 09:51 Heparin Sodium,Porcine/Pf 5,000 Unit/0.5 Ml Syringe SQ 5,000 unit Q12HR KAREN Administration Hydromorphone HCl 0.5 mg 12/12/21 12:31 Hydromorphone 0.5 Mg/0.5 Ml Syringe IVP Q6HR PRN Pain Ceftriaxone Sodium 1 gm/ 50 mls @ 100 mls/hr 12/12/21 10:30 12/14/21 09:51 Sodium Chloride IVPB 100 mls/hr Q12HR KAREN Administration Protocol Sodium Chloride 1,000 mls @ 75 mls/hr 12/12/21 10:00 12/14/21 01:00 Saline 0.9% IV 75 mls/hr .[id number] KAREN Administration Ibuprofen 400 mg 12/12/21 09:57 Ibuprofen 400 Mg Tab PO Q6HR PRN Mild Pain or Fever > 100.5 Insulin Aspart 0 unit 12/12/21 12:30 12/14/21 06:59 Insulin Aspart (Novolog) 100 Unit/Ml Vial SQ 1 unit ACHS KAREN Administration Protocol Insulin Aspart 15 unit 12/12/21 12:30 12/14/21 09:57 Insulin Aspart (Novolog) 100 Unit/Ml Vial SQ 15 unit AC-TID KAREN Administration Insulin Detemir 80 unit 12/12/21 21:00 12/13/21 20:59 Insulin Detemir (Levemir) 100 Unit/Ml Syr SQ 80 unit HS KAREN Administration Metoprolol Succinate 50 mg 12/12/21 21:00 12/13/21 20:57 Metoprolol Succinate (Er) 50 Mg Tab.Er.24h PO 50 mg HS KAREN Administration Naloxone HCl 0.2 mg 12/12/21 09:57 Naloxone 0.4 Mg/Ml 1 Ml Vial IV Q2M PRN Opioid Reversal Pantoprazole Sodium 40 mg 12/13/21 17:30 12/14/21 07:05 Pantoprazole 40 Mg Tablet PO Not Given AC-BID KAREN Tramadol HCl 50 mg 12/12/21 13:03 Tramadol 50 Mg Tab PO BID PRN Pain Valsartan 80 mg 12/12/21 21:00 12/13/21 20:58 Valsartan 80 Mg Tab PO 80 mg HS KAREN Administration Intake and Output 12/13/21 12/14/21 12/14/21 22:59 06:59 14:59 Intake Total 360 Output Total 2 Balance 358 Intake: Oral 360 Output: Urine 2 Other: Voiding Method Toilet # Voids 2 2 12/14/21 05:31 12/14/21 05:31
[2021-12-14 11:45] LABS: Glucose,Whole Blood 311 mg/dL (75-99)
[2021-12-14] MEDS ORDERED: INSULIN ASPART (NovoLOG) 100 UNIT/ML VIAL SQ ONE (12:00)
--- NOTE | 2021-12-14 12:56 | PN ---
PROGRESS NOTE DATE OF SERVICE: 12/14/2021 This 71-year-old woman admitted with UTI and uncontrolled diabetes mellitus is being closely monitored. No chest pain. No palpitations. Sugars are elevated at 310 today. PHYSICAL EXAMINATION: Pulse 66, blood pressure 125/87, respiration 18. CHEST: Clear to auscultation. CARDIOVASCULAR: S1, S2 muffled. ABDOMEN: Soft NERVOUS SYSTEM: Diffusely weak. LABS: Reviewed. Creatinine 1.11. Troponin noted. ASSESSMENT: 1. Acute hyperglycemia with hyperosmolar state with uncontrolled diabetes mellitus, type 2. 2. Acute urinary tract infection. 3. Troponin 0.063 of undetermined significance. 4. Weakness. 5. Abdominal pain. 6. History of congestive heart failure. 7. Chronic obstructive pulmonary disease. 8. Diabetes mellitus, type 2. RECOMMENDATIONS AND DISCUSSION: I recommend to continue current medications, continue with the monitoring, symptomatic treatment. Continue with IV antibiotics. Possible discharge in the next 24 to 48 hours. Cardiology apparently cleared the patient, per staff. Further recommendations to follow. Prognosis guarded. MMODL / IJN: [id number] /
[2021-12-14] MEDS: IPRATROPIUM-ALBUTEROL 3 ML NEB INHALATION PRN (14:07)
[2021-12-14 16:19] LABS: Glucose,Whole Blood 187 mg/dL (75-99)
[2021-12-14] MEDS: ATORVASTATIN 80 MG TAB PO SCH (20:09)
[2021-12-14] MEDS: METOPROLOL SUCCINATE (ER) 50 MG TAB.ER.24H PO SCH (20:10)
[2021-12-14] MEDS: VALSARTAN 80 MG TAB PO SCH (20:14)
[2021-12-14 20:44] LABS: Glucose,Whole Blood 248 mg/dL (75-99)
[2021-12-14] MEDS: INSULIN DETEMIR (LEVEMIR) 100 UNIT/ML SYR SQ SCH (21:16)
[2021-12-14] MEDS ORDERED: ZOLPIDEM 5 MG TAB PO PRN (22:29)
[2021-12-15] MEDS: ACETAMINOPHEN TAB 325 MG TAB PO PRN (03:21)
[2021-12-15 05:16] LABS: Glucose,Whole Blood 271 mg/dL (75-99)
[2021-12-15 06:43] LABS: Glucose,Whole Blood 241 mg/dL (75-99)
[2021-12-15] MEDS: SODIUM CHLORIDE 0.9% 1,000 ML IV SCH (07:03)
[2021-12-15] MEDS: INSULIN ASPART (NovoLOG) 100 UNIT/ML VIAL SQ SCH ×4 (07:07→14:28)
[2021-12-15] MEDS: PANTOPRAZOLE 40 MG TABLET PO SCH (07:09)
[2021-12-15] MEDS: SYMBICORT 160-4.5 MCG INHALER INHALATION SCH (08:12)
[2021-12-15] MEDS: CLOPIDOGREL 75 MG TAB PO SCH (08:16)
[2021-12-15] MEDS: HEPARIN SODIUM,PORCINE/PF 5,000 UNIT/0.5 ML SYRINGE SQ SCH (08:16)
[2021-12-15 09:48] VITALS: BP 149/67
[2021-12-15] MEDS: IPRATROPIUM-ALBUTEROL 3 ML NEB INHALATION PRN (10:41)
[2021-12-15 12:36] LABS: Glucose,Whole Blood 181 mg/dL (75-99)
--- NOTE | 2021-12-15 13:02 | DS ---
DISCHARGE SUMMARY FINAL DIAGNOSIS: 1. Acute hyperglycemia and hyperosmolar state with uncontrolled diabetes mellitus, type 2. 2. Acute urinary tract infection. 3. Troponin 0.063, indeterminate. 4. Weakness. 5. Abdominal pain. DISCHARGE DISPOSITION: The patient will be discharged in stable condition with guarded prognosis. HISTORY OF PRESENT ILLNESS: This 71-year-old woman was admitted with UTI. Patient also had hyperglycemia. She was treated symptomatically with antibiotics. Cultures were negative. Cardiology saw the patient and cleared the patient for discharge. Patient will be discharged in stable condition with guarded prognosis. Vitals are stable. CARDIOVASCULAR: S1, S2 muffled. ABDOMEN: Soft. NERVOUS SYSTEM: No focal deficit. Please refer to the discharge disposition for list of medications. I recommend continuing the antibiotic course with Ceftin and followup with primary physician Dr. Gonzales and followup with Cardiology. Please refer to the discharge reconciliation sheet for list of medications. MMODL / IJN: [id number] /
[2021-12-15 14:09] VITALS: PULSE 62; TEMP 98
== END 2021-12-15 16:34 | disposition home health service (06) | DRG 638 ==
LOC: EC 07:21 → 5NMEDONC 09:57 → 3SCARD 10:28
PROVIDERS: ADMIT Internal Medicine; ATTEND Internal Medicine
DX: E11.00 Type 2 diabetes mellitus with hyperosmolarity without nonketotic hyperglycemic-hyperosmolar coma (NKHHC) (principal); N39.0 Urinary tract infection, site not specified; I50.32 Chronic diastolic (congestive) heart failure; I27.20 Pulmonary hypertension, unspecified; E11.40 Type 2 diabetes mellitus with diabetic neuropathy, unspecified; E11.51 Type 2 diabetes mellitus with diabetic peripheral angiopathy without gangrene; F03.90 Unspecified dementia, unspecified severity, without behavioral disturbance, psychotic disturbance, mood disturbance, and anxiety; I11.0 Hypertensive heart disease with heart failure; J43.9 Emphysema, unspecified; Z79.4 Long term (current) use of insulin; E86.0 Dehydration; E78.5 Hyperlipidemia, unspecified; I44.0 Atrioventricular block, first degree; I44.7 Left bundle-branch block, unspecified; I25.10 Atherosclerotic heart disease of native coronary artery without angina pectoris; I25.2 Old myocardial infarction; M54.9 Dorsalgia, unspecified; R77.8 Other specified abnormalities of plasma proteins; R25.2 Cramp and spasm; Z79.82 Long term (current) use of aspirin; Z79.51 Long term (current) use of inhaled steroids; Z79.02 Long term (current) use of antithrombotics/antiplatelets; Z79.899 Other long term (current) drug therapy; Z95.1 Presence of aortocoronary bypass graft; Z98.42 Cataract extraction status, left eye; Z98.41 Cataract extraction status, right eye; Z87.01 Personal history of pneumonia (recurrent); Z86.19 Personal history of other infectious and parasitic diseases; Z86.73 Personal history of transient ischemic attack (TIA), and cerebral infarction without residual deficits; Z90.49 Acquired absence of other specified parts of digestive tract; Z87.19 Personal history of other diseases of the digestive system; Z87.891 Personal history of nicotine dependence; Z95.5 Presence of coronary angioplasty implant and graft; Z98.890 Other specified postprocedural states; Z88.5 Allergy status to narcotic agent; Z82.49 Family history of ischemic heart disease and other diseases of the circulatory system; Z81.8 Family history of other mental and behavioral disorders
CPT/HCPCS: 36415; 70450; 71046; 80048; 80053; 81001; 82009; 83605; 83735; 83880; 84100; 84439; 84443; 84481; 84484; 85025; 85610; 85730; 87040; 87086; 93005; 93306; 94640; 96365; 99285

== ENCOUNTER 2022-01-02 19:22 | Inpatient (IN) | payer MEDICARE ==
[2022-01-02] MEDS ORDERED: INSULIN REGULAR BOLUS (FROM DRIP BAG) IV ONE (19:32)
[2022-01-02] MEDS ORDERED: SODIUM CHLORIDE 0.9% 2,000 ML IV ONE (19:39)
--- NOTE | 2022-01-02 19:39 | ED ---
General Adult HPI - General Source: patient, RN notes reviewed, old records reviewed <Prince Mendoza - Last Filed: 01/02/22 21:03> <Mac Nieves - Last Filed: 01/03/22 10:48> - General Stated complaint: Diabetic Issue Time Seen by Provider: 01/02/22 19:22 - History of Present Illness Initial comments: This is a 71-year-old female with a past medical history significant for bypass surgery and diabetes. Patient claims that she's been taking her insulin regular but family told EMS that she was not. Patient states she also was eating cake on Mother's Day. Patient comes in today because her sugar was extremely high EMS that was over 600 and she does complain of polydipsia or polyuria. Patient denies any fever chills or cough per patient denies chest pain difficulty breathing shortest breath per patient denies any belly pain patient denies any nausea vomiting diarrhea. Patient denies headache patient denies numbness weakness. Patient denies lightheadedness or dizziness. (Prince Mendoza) - Related Data Home Medications Medication Instructions Recorded Confirmed Metoprolol Succinate [Toprol XL] 50 mg PO HS 08/30/18 01/02/22 Furosemide [Lasix] 20 mg PO DAILY PRN 05/19/20 01/02/22 Atorvastatin [Lipitor] 80 mg PO HS 09/23/20 01/02/22 hydrOXYzine HCL [Atarax] 25 mg PO TID PRN 09/23/20 01/02/22 Insulin Lispro [humaLOG Kwikpen] 15 units SQ AC-TID 11/11/20 01/02/22 traMADol HCL [Ultram] 50 mg PO BID PRN 02/07/21 01/02/22 Budesonide-Formot 160-4.5 Mcg 2 puff INHALATION RT-BID 04/12/21 01/02/22 [Symbicort 160-4.5 Mcg Inhaler] Aspirin EC [Ecotrin Low Dose] 81 mg PO DAILY 12/12/21 01/02/22 Clopidogrel Bisulfate [Plavix] 75 mg PO DAILY 12/12/21 01/02/22 Insulin Glargine,Hum.rec.anlog 80 unit SQ HS 12/12/21 01/02/22 [Lantus Solostar Pen] Valsartan 80 mg PO HS 12/12/21 01/02/22 Ipratropium-Albuterol Nebulize 3 ml INHALATION RT-Q6H PRN 12/15/21 01/02/22 [Duoneb 0.5 mg-3 mg/3 ml Soln] Nirmatrelvir/Ritonavir [Paxlovid 1 dose PO DIRECTED 01/02/22 01/02/22 Co-Pack (Eua)] methylPREDNISolone [Medrol Dose See Taper PO DIRECTED 01/02/22 01/02/22 Pack] Previous Rx's Medication Instructions Recorded Acetaminophen Tab [Tylenol] 650 mg PO Q6HR PRN tab 12/15/21 Pantoprazole [Protonix] 40 mg PO AC-BID #60 tab 12/15/21 Allergies Allergy/AdvReac Type Severity Reaction Status Date / Time codeine AdvReac Nausea & Verified 01/02/22 22:11 Vomiting Review of Systems ROS Other: All systems not noted in ROS Statement are negative. <Prnice Mendoza - Last Filed: 01/02/22 21:03> ROS Other: All systems not noted in ROS Statement are negative. <Mac Nieves - Last Filed: 01/03/22 10:48> ROS Statement: Those systems with pertinent positive or pertinent negative responses have been documented in the HPI. 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, R caratid artery disease, valvular disease, pulmonary htn, bronchitis, home oxygen prn, poor vision/pt cannot recall reason, UTIs, rash/itching Last Myocardial Infarction Date:: 2014 History of Any Multi-Drug Resistant Organisms: ESBL Date of last positivie culture/infection: 04/15/21 MDRO Source:: ESBL URINE Past Surgical History: Cholecystectomy, Coronary Bypass/CABG, Heart Catheterization With Stent Additional Past Surgical History / Comment(s): PCI/stents in 2009 and 2014, 2017 CABG 3 vessel then sternal debridement for infection/removal of hardware, colonoscopy, bilateral cataract removals. Past Anesthesia/Blood Transfusion Reactions: No Reported Reaction Additional Past Anesthesia/Blood Transfusion Reaction / Comment(s): Claustrophobic Date of Last Stent Placement:: 2014 Past Psychological History: No Psychological Hx Reported Additional Psychological History / Comment(s): Pt's mague lives with her. Pt states she uses no assistive device. She has a nebulizer and home oxygen which she uses prn. She no longer drives, her mague takes her to appts. Smoking Status: Former smoker Past Alcohol Use History: None Reported Additional Past Alcohol Use History / Comment(s): Pt started smoking in 1963 and quit in 2009 Past Drug Use History: None Reported - Past Family History Father Family Medical History: Coronary Artery Disease (CAD), Myocardial Infarction ([place]) Additional Family Medical History / Comment(s): STENT, OPEN HEART SURGERY Mother Additional Family Medical History / Comment(s): DEPRESSION, mental illness <Prince Mendoza - Last Filed: 01/02/22 21:03> General Exam <Prince Mendoza - Last Filed: 01/02/22 21:03> - General Exam Comments Initial Comments: GENERAL: Patient is well-developed and well-nourished. Patient is nontoxic and well- hydrated and is in no acute distress. ENT: Neck is soft and supple. No significant lymphadenopathy is noted. Oropharynx is clear. Dry mucous membranes. Neck has full range of motion without eliciting any pain. EYES: The sclera were anicteric and conjunctiva were pink and moist. Extraocular movements were intact and pupils were equal round and reactive to light. Eyelids were unremarkable. PULMONARY: Unlabored respirations. Good breath sounds bilaterally. No audible rales rhonchi or wheezing was noted. CARDIOVASCULAR: There is a regular rate and rhythm without any murmurs gallops or rubs. ABDOMEN: Soft and nontender with normal bowel sounds. SKIN: Skin is clear with no lesions or rashes and otherwise unremarkable. NEUROLOGIC: Patient is alert and oriented x3. Cranial nerves II through XII are grossly intact. Motor and sensory are also intact. Normal speech, volume and content. Symmetrical smile. MUSCULOSKELETAL: Normal extremities with adequate strength and full range of motion. LYMPHATICS: No significant lymphadenopathy is noted PSYCHIATRIC: Normal psychiatric evaluation. (Prince Mendoza) Course Vital Signs 01/02/22 01/02/22 01/02/22 20:01 21:05 22:05 Temperature 98.8 F Pulse Rate 60 62 65 Respiratory 24 20 24 Rate Blood Pressure 151/65 164/79 174/62 O2 Sat by Pulse 93 L 96 96 Oximetry 01/02/22 01/03/22 01/03/22 23:05 01:00 02:00 Temperature Pulse Rate 61 60 65 Respiratory 22 20 20 Rate Blood Pressure 151/80 168/74 148/69 O2 Sat by Pulse 96 96 96 Oximetry 01/03/22 01/03/22 01/03/22 04:41 06:42 07:31 Temperature Pulse Rate 59 L 58 L 59 L Respiratory 22 25 H 24 Rate Blood Pressure 164/81 147/64 146/77 O2 Sat by Pulse 96 96 96 Oximetry 01/03/22 08:46 Temperature Pulse Rate 62 Respiratory 20 Rate Blood Pressure 120/80 O2 Sat by Pulse 96 Oximetry Medical Decision Making - Lab Data Result diagrams: 01/02/22 20:29 <Prince Mendoza - Last Filed: 01/02/22 21:03> - Lab Data Result diagrams: 01/03/22 07:43 01/03/22 07:43 <Mac Nieves - Last Filed: 01/03/22 10:48> - Medical Decision Making EKG shows sinus rhythm at 61 bpm MD interval is 233 QRS is 1:30 for QT intervals 44 QTC is 47. There is no ST segment elevation no pallor Dr. Healy will be taking over the care of this patient at 9 PM (Prince Mendoza) - Lab Data Lab Results 01/02/22 01/02/22 01/02/22 Range/Units 19:56 20:29 20:29 WBC 11.0 H (3.8-10.6) k/uL RBC 4.15 (3.80-5.40) m/uL Hgb 13.6 (11.4-16.0) gm/dL Hct 43.3 (34.0-46.0) % MCV 104.5 H (80.0-100.0) fL MCH 32.7 (25.0-35.0) pg MCHC 31.3 (31.0-37.0) g/dL RDW 12.3 (11.5-15.5) % Plt Count 427 (150-450) k/uL MPV 7.9 Neutrophils % 88 % Lymphocytes % 6 % Monocytes % 5 % Eosinophils % 0 % Basophils % 0 % Neutrophils # 9.6 H (1.3-7.7) k/uL Lymphocytes # 0.6 L (1.0-4.8) k/uL Monocytes # 0.6 (0-1.0) k/uL Eosinophils # 0.0 (0-0.7) k/uL Basophils # 0.0 (0-0.2) k/uL Hypochromasia Slight Macrocytosis Slight VBG pH (7.31-7.41) VBG pCO2 (37-51) mmHg VBG HCO3 (24-28) mmol/L Sodium 127 L (137-145) mmol/L Potassium 4.7 (3.5-5.1) mmol/L Chloride 93 L (98-107) mmol/L Carbon Dioxide 21 L (22-30) mmol/L Anion Gap 13 mmol/L BUN 40 H (7-17) mg/dL Creatinine 1.29 H (0.52-1.04) mg/dL Est GFR (CKD-EPI)AfAm 48 (>60 ml/min/1.73 sqM) Est GFR (CKD-EPI)NonAf 42 (>60 ml/min/1.73 sqM) Glucose 917 H* (74-99) mg/dL POC Glucose (mg/dL) 375 H (75-99) mg/dL POC Glu Piggery Worker ID Jennifer Westfall Urine Color Urine Appearance (Clear) Urine pH (5.0-8.0) Ur Specific [place] (1.001-1.035) Urine Protein (Negative) Urine Glucose (UA) (Negative) Urine Ketones (Negative) Urine Blood (Negative) Urine Nitrite (Negative) Urine Bilirubin (Negative) Urine Urobilinogen (<2.0) mg/dL Ur Leukocyte Esterase (Negative) Urine RBC (0-5) /hpf Urine WBC (0-5) /hpf Ur Squamous Epith Cells (0-4) /hpf Urine Mucus (None) /hpf Urine Osmolality (50-1400) mosm/kg Acetone, Qual Negative (Negative) 01/02/22 01/02/22 01/02/22 Range/Units 20:29 21:17 21:25 WBC (3.8-10.6) k/uL RBC (3.80-5.40) m/uL Hgb (11.4-16.0) gm/dL Hct (34.0-46.0) % MCV (80.0-100.0) fL MCH (25.0-35.0) pg MCHC (31.0-37.0) g/dL RDW (11.5-15.5) % Plt Count (150-450) k/uL MPV Neutrophils % % Lymphocytes % % Monocytes % % Eosinophils % % Basophils % % Neutrophils # (1.3-7.7) k/uL Lymphocytes # (1.0-4.8) k/uL Monocytes # (0-1.0) k/uL Eosinophils # (0-0.7) k/uL Basophils # (0-0.2) k/uL Hypochromasia Macrocytosis VBG pH 7.46 H (7.31-7.41) VBG pCO2 30 L (37-51) mmHg VBG HCO3 21 L (24-28) mmol/L Sodium (137-145) mmol/L Potassium (3.5-5.1) mmol/L Chloride (98-107) mmol/L Carbon Dioxide (22-30) mmol/L Anion Gap mmol/L BUN (7-17) mg/dL Creatinine (0.52-1.04) mg/dL Est GFR (CKD-EPI)AfAm (>60 ml/min/1.73 sqM) Est GFR (CKD-EPI)NonAf (>60 ml/min/1.73 sqM) Glucose (74-99) mg/dL POC Glucose (mg/dL) (75-99) mg/dL POC Glu Piggery Worker ID Urine Color Light Yellow Urine Appearance Clear (Clear) Urine pH 5.5 (5.0-8.0) Ur Specific [place] 1.026 (1.001-1.035) Urine Protein 1+ H (Negative) Urine Glucose (UA) 4+ H (Negative) Urine Ketones Negative (Negative) Urine Blood Small H (Negative) Urine Nitrite Negative (Negative) Urine Bilirubin Negative (Negative) Urine Urobilinogen <2.0 (<2.0) mg/dL Ur Leukocyte Esterase Negative (Negative) Urine RBC <1 (0-5) /hpf Urine WBC 3 (0-5) /hpf Ur Squamous Epith Cells 2 (0-4) /hpf Urine Mucus Rare H (None) /hpf Urine Osmolality 524 (50-1400) mosm/kg Acetone, Qual (Negative) 01/02/22 01/02/22 Range/Units 21:25 23:08 WBC (3.8-10.6) k/uL RBC (3.80-5.40) m/uL Hgb (11.4-16.0) gm/dL Hct (34.0-46.0) % MCV (80.0-100.0) fL MCH (25.0-35.0) pg MCHC (31.0-37.0) g/dL RDW (11.5-15.5) % Plt Count (150-450) k/uL MPV Neutrophils % % Lymphocytes % % Monocytes % % Eosinophils % % Basophils % % Neutrophils # (1.3-7.7) k/uL Lymphocytes # (1.0-4.8) k/uL Monocytes # (0-1.0) k/uL Eosinophils # (0-0.7) k/uL Basophils # (0-0.2) k/uL Hypochromasia Macrocytosis VBG pH (7.31-7.41) VBG pCO2 (37-51) mmHg VBG HCO3 (24-28) mmol/L Sodium (137-145) mmol/L Potassium (3.5-5.1) mmol/L Chloride (98-107) mmol/L Carbon Dioxide (22-30) mmol/L Anion Gap mmol/L BUN (7-17) mg/dL Creatinine (0.52-1.04) mg/dL Est GFR (CKD-EPI)AfAm (>60 ml/min/1.73 sqM) Est GFR (CKD-EPI)NonAf (>60 ml/min/1.73 sqM) Glucose (74-99) mg/dL POC Glucose (mg/dL) >600 H 528 H (75-99) mg/dL POC Glu Piggery Worker Jennifer Tony Angela Urine Color Urine Appearance (Clear) Urine pH (5.0-8.0) Ur Specific [place] (1.001-1.035) Urine Protein (Negative) Urine Glucose (UA) (Negative) Urine Ketones (Negative) Urine Blood (Negative) Urine Nitrite (Negative) Urine Bilirubin (Negative) Urine Urobilinogen (<2.0) mg/dL Ur Leukocyte Esterase (Negative) Urine RBC (0-5) /hpf Urine WBC (0-5) /hpf Ur Squamous Epith Cells (0-4) /hpf Urine Mucus (None) /hpf Urine Osmolality (50-1400) mosm/kg Acetone, Qual (Negative) Disposition <Prince Mendoza - Last Filed: 01/02/22 21:03> Is patient prescribed a controlled substance at d/c from ED?: No <Mac Nieves - Last Filed: 01/03/22 10:48> Clinical Impression: Hyperosmolality syndrome Disposition: ADMITTED IP TO THIS HOSP Condition: Serious
[2022-01-02 19:59] LABS: Glucose,Whole Blood 375 mg/dL (75-99)
[2022-01-02 20:50] LABS: VBG PH 7.46 (7.31-7.41)
[2022-01-02 20:56] LABS: African American GFR (CKD) 48 (>60 ml/min/1.73 sqM); Anion Gap 13 mmol/L; Blood Urea Nitrogen 40 mg/dL (7-17); Carbon Dioxide 21 mmol/L (22-30); Chloride 93 mmol/L (98-107); Non-African American GFR(CKD) 42 (>60 ml/min/1.73 sqM); Potassium 4.7 mmol/L (3.5-5.1); Sodium 127 mmol/L (137-145)
[2022-01-02 21:03] LABS: Basophils % (A) 0 %; Eosinophils % (A) 0 %; HCT 43.3 % (34.0-46.0); HGB 13.6 gm/dL (11.4-16.0); Hypochromasia Slight; Lymphocytes # (A) 0.6 k/uL (1.0-4.8); Lymphocytes % (A) 6 %; MCH 32.7 pg (25.0-35.0); MCHC 31.3 g/dL (31.0-37.0); MCV 104.5 fL (80.0-100.0); Macrocytosis Slight; Mean Platelet Volume 7.9; Monocytes # (A) 0.6 k/uL (0-1.0); Monocytes % (A) 5 %; Neutrophils # (A) 9.6 k/uL (1.3-7.7); Neutrophils % (A) 88 %; Platelet Count 427 k/uL (150-450); RBC 4.15 m/uL (3.80-5.40); RDW 12.3 % (11.5-15.5)
[2022-01-02 21:12] LABS: Glucose 917 mg/dL (74-99)
[2022-01-02 21:24] LABS: Appearance,Urine Clear (Clear); Bilirubin,Urine Negative (Negative); Blood,Urine Small (Negative); Color,Urine Light Yellow; Glucose,Urine (UA) 4+ (Negative); Ketones,Urine Negative (Negative); Leukocyte Esterase,Urine Negative (Negative); Mucus,Urine Rare /hpf; Nitrite,Urine Negative (Negative); PH, Urine 5.5 (5.0-8.0); Protein,Urine 1+ (Negative); RBC,Urine <1 /hpf (0-5); Specific Gravity,Urine 1.026 (1.001-1.035); Squamous Epithelial Cell,Urine 2 /hpf (0-4); Urobilinogen,Urine <2.0 mg/dL (<2.0); WBC,Urine 3 /hpf (0-5)
[2022-01-02 21:26] LABS: Glucose,Whole Blood >600 mg/dL (75-99)
[2022-01-02] MEDS: INSULIN REGULAR 100 UNIT in SODIUM CHLORIDE 0.9% 100 ML IV SCH (22:14)
[2022-01-02] MEDS ORDERED: NALOXONE 0.4 MG/ML 1 ML VIAL IV PRN (23:08)
[2022-01-02 23:10] LABS: Glucose,Whole Blood 528 mg/dL (75-99)
[2022-01-03 00:34] LABS: Glucose,Whole Blood 428 mg/dL (75-99)
[2022-01-03 01:21] LABS: African American GFR (CKD) 59 (>60 ml/min/1.73 sqM); Anion Gap 11 mmol/L; Blood Urea Nitrogen 34 mg/dL (7-17); Carbon Dioxide 22 mmol/L (22-30); Chloride 101 mmol/L (98-107); Glucose 415 mg/dL (74-99); Non-African American GFR(CKD) 51 (>60 ml/min/1.73 sqM); Potassium 3.7 mmol/L (3.5-5.1); Sodium 134 mmol/L (137-145)
[2022-01-03 01:55] LABS: Glucose,Whole Blood 332 mg/dL (75-99)
[2022-01-03 03:06] LABS: Glucose,Whole Blood 273 mg/dL (75-99)
[2022-01-03] MEDS: D5-0.45% NACL WITH KCL 20MEQ/L 1,000 ML IV SCH (03:28)
[2022-01-03 04:07] LABS: Potassium 3.8 mmol/L (3.5-5.1)
[2022-01-03 04:40] LABS: Glucose,Whole Blood 246 mg/dL (75-99)
[2022-01-03] MEDS ORDERED: Potassium Replacement Protocol 1 EACH MISC MISCELLANE PRN (05:11)
[2022-01-03 05:57] LABS: Glucose,Whole Blood 234 mg/dL (75-99)
[2022-01-03] MEDS ORDERED: POTASSIUM CHLORIDE ER 20 MEQ TAB.ER PO SCH (06:00)
[2022-01-03 06:51] LABS: Glucose,Whole Blood 202 mg/dL (75-99)
[2022-01-03] MEDS: INSULIN REGULAR 100 UNIT in SODIUM CHLORIDE 0.9% 100 ML IV SCH (07:07)
[2022-01-03] MEDS ORDERED: IPRATROPIUM-ALBUTEROL 3 ML NEB INHALATION PRN (07:29)
[2022-01-03] MEDS ORDERED: traMADol 50 MG TAB PO PRN (07:29)
[2022-01-03 08:08] LABS: Potassium 3.7 mmol/L (3.5-5.1)
[2022-01-03 08:09] LABS: Glucose,Whole Blood 176 mg/dL (75-99)
[2022-01-03 08:10] LABS: ALT 25 U/L (4-34); AST 25 U/L (14-36); African American GFR (CKD) 71 (>60 ml/min/1.73 sqM); Albumin 2.9 g/dL (3.5-5.0); Alkaline Phosphatase 60 U/L (38-126); Anion Gap 4 mmol/L; Blood Urea Nitrogen 28 mg/dL (7-17); C Reactive Protein <0.5 mg/dL (<1.0); Calcium 7.7 mg/dL (8.4-10.2); Carbon Dioxide 28 mmol/L (22-30); Chloride 104 mmol/L (98-107); Glucose 183 mg/dL (74-99); LDH 734 U/L (313-618); Non-African American GFR(CKD) 61 (>60 ml/min/1.73 sqM); Phosphorus 2.1 mg/dL (2.5-4.5); Sodium 136 mmol/L (137-145); Total Bilirubin 0.6 mg/dL (0.2-1.3); Total Protein 5.9 g/dL (6.3-8.2)
[2022-01-03 08:12] LABS: Basophils % (A) 0 %; Eosinophils % (A) 0 %; HCT 35.7 % (34.0-46.0); HGB 11.9 gm/dL (11.4-16.0); Lymphocytes # (A) 1.3 k/uL (1.0-4.8); Lymphocytes % (A) 12 %; MCH 32.8 pg (25.0-35.0); MCHC 33.3 g/dL (31.0-37.0); Mean Platelet Volume 7.3; Monocytes # (A) 0.7 k/uL (0-1.0); Monocytes % (A) 7 %; Neutrophils # (A) 8.4 k/uL (1.3-7.7); Neutrophils % (A) 79 %; Platelet Count 390 k/uL (150-450); RBC 3.63 m/uL (3.80-5.40); RDW 12.4 % (11.5-15.5); WBC 10.6 k/uL (3.8-10.6)
[2022-01-03 08:13] LABS: MCV 98.4 fL (80.0-100.0)
[2022-01-03 08:16] LABS: INR 0.9 (<1.2); Prothrombin Time 10.4 sec (9.0-12.0)
[2022-01-03 08:41] LABS: Partial Thromboplastin Time 20.4 sec (22.0-30.0)
[2022-01-03] MEDS: PANTOPRAZOLE 40 MG TABLET PO SCH ×2 (08:50→18:13)
[2022-01-03] MEDS: ASPIRIN 81 MG PO SCH (08:51)
[2022-01-03] MEDS: CLOPIDOGREL 75 MG TAB PO SCH (08:51)
[2022-01-03] MEDS ORDERED: INSULIN DETEMIR (LEVEMIR) 100 UNIT/ML SYR SQ SCH (09:00)
[2022-01-03] MEDS ORDERED: FAMOTIDINE 20 MG/2 ML VIAL IV SCH (09:00)
[2022-01-03] MEDS ORDERED: HEPARIN SODIUM,PORCINE/PF 5,000 UNIT/0.5 ML SYRINGE SQ SCH (09:00)
--- NOTE | 2022-01-03 09:46 | XR ---
EXAMINATION TYPE: XR chest 2V DATE OF EXAM: 01/03/2022 COMPARISON: 12/12/2021 TECHNIQUE: PA and lateral views submitted. HISTORY: Shortness of breath FINDINGS: Postoperative changes cardiomegaly and diffuse interstitial pattern. No sizable pleural effusion. Ath erosclerotic change aorta. No pneumothorax. Surgical change in the abdomen. Hypertrophic and degenera tive change of the spine. IMPRESSION: 1. Correlate for interstitial pneumonitis or pneumonia otherwise consider venous congestion
[2022-01-03] MEDS: SYMBICORT 160-4.5 MCG INHALER INHALATION SCH ×2 (09:52→20:56)
[2022-01-03 10:07] LABS: Glucose,Whole Blood 143 mg/dL (75-99)
[2022-01-03] MEDS ORDERED: FUROSEMIDE 10 MG/ML 4 ML VIAL IV STA (10:15)
--- NOTE | 2022-01-03 10:20 | P.HPIM ---
History of Present Illness This is a pleasant 71 years old female with past medical history of Asthma, Coronary Artery Disease, Heart Failure, COPD, CVA/TIA, Dementia, Diabetes Mellitus, Hyperlipidemia, Hypertension, Syncope, , IDDM type II, neuropathy bilateral feet, 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, R caratid artery disease, valvular disease, pulmonary htn, bronchitis, home oxygen prn, poor vision/pt cannot recall reason, ESBL UTI,CAD s/p Coronary Bypass/CABG, Heart Catheterization With Stent Patient was recently discharged from hospital for UTI and covid, patient was discharged for-12/15 for UTI and hyperglycemia. She did not need antibiotic upon discharge at that time. She presents because of dyspnea for about one week, and was gradually getting worse associated with cough and yellowish phlegm and central chest pain with coughing. Also patient has diarrhea about twice per day with no blood, vomited twice yesterday with no blood. Patient is afebrile, heart rate in 60s, blood pressure 168/74, she is saturating 96% on room air but she is slightly tachypneic with a rate around 20-24 CBC showing WBC of 11 which is slightly elevated, rest of CBC is unremarkable. Sodium 135, creatinine 1.0. Glucose was elevated on admission more than 600, currently contracted above 200.(200-250). Her glucose on initial admission was 917 EKG showing normal sinus rhythm at [address]-T changes Urine analysis showing glucosuria and 1+ protein. Acetone is negative Echocardiogram on 12/13/2021:ejection fraction 55-60%. Review of Systems CONSTITUTIONAL: No fever, no malaise, no fatigue. HEENT: No recent visual problems or hearing problems. Denied any sore throat. CARDIOVASCULAR: No orthopnea, PND, no palpitations, no syncope. PULMONARY: No chest wall tenderness , no hemoptysis. GASTROINTESTINAL: No diarrhea, no nausea, no vomiting, no abdominal pain. Normoactive bowel sounds. NEUROLOGICAL: No headaches, no weakness, no numbness. HEMATOLOGICAL: Denies any bleeding or petechiae. GENITOURINARY: Denies any burning micturition, frequency, or urgency. MUSCULOSKELETAL/RHEUMATOLOGICAL: Denies any joint pain, swelling, or any muscle pain. ENDOCRINE: Denies any polyuria or polydipsia. 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, R caratid artery disease, valvular disease, pulmonary htn, bronchitis, home oxygen prn, poor vision/pt cannot recall reason, UTIs, rash/itching Last Myocardial Infarction Date:: 2014 History of Any Multi-Drug Resistant Organisms: ESBL Date of last positivie culture/infection: 04/15/21 MDRO Source:: ESBL URINE Past Surgical History: Cholecystectomy, Coronary Bypass/CABG, Heart Catheterization With Stent Additional Past Surgical History / Comment(s): PCI/stents in 2009 and 2014, 2016 CABG 3 vessel then sternal debridement for infection/removal of hardware, colonoscopy, bilateral cataract removals. Past Anesthesia/Blood Transfusion Reactions: No Reported Reaction Additional Past Anesthesia/Blood Transfusion Reaction / Comment(s): Claustrophobic Date of Last Stent Placement:: 2014 Past Psychological History: No Psychological Hx Reported Additional Psychological History / Comment(s): Pt's mague lives with her. Pt states she uses no assistive device. She has a nebulizer and home oxygen which she uses prn. She no longer drives, her mague takes her to [employer]. Smoking Status: Former smoker Past Alcohol Use History: None Reported Additional Past Alcohol Use History / Comment(s): Pt started smoking in 1963 and quit in 2009 Past Drug Use History: None Reported - Past Family History Father Family Medical History: Coronary Artery Disease (CAD), Myocardial Infarction ([place]) Additional Family Medical History / Comment(s): STENT, OPEN HEART SURGERY Mother Additional Family Medical History / Comment(s): DEPRESSION, mental illness Medications and Allergies Home Medications Medication Instructions Recorded Confirmed Type Metoprolol Succinate [Toprol XL] 50 mg PO HS 08/30/18 01/02/22 History Furosemide [Lasix] 20 mg PO DAILY PRN 05/19/20 01/02/22 History Atorvastatin [Lipitor] 80 mg PO HS 09/23/20 01/02/22 History hydrOXYzine HCL [Atarax] 25 mg PO TID PRN 09/23/20 01/02/22 History Insulin Lispro [humaLOG Kwikpen] 15 units SQ AC-TID 11/11/20 01/02/22 History traMADol HCL [Ultram] 50 mg PO BID PRN 02/07/21 01/02/22 History Budesonide-Formot 160-4.5 Mcg 2 puff INHALATION RT-BID 04/12/21 01/02/22 History [Symbicort 160-4.5 Mcg Inhaler] Aspirin EC [Ecotrin Low Dose] 81 mg PO DAILY 12/12/21 01/02/22 History Clopidogrel Bisulfate [Plavix] 75 mg PO DAILY 12/12/21 01/02/22 History Insulin Glargine,Hum.rec.anlog 80 unit SQ HS 12/12/21 01/02/22 History [Lantus Solostar Pen] Valsartan 80 mg PO HS 12/12/21 01/02/22 History Acetaminophen Tab [Tylenol] 650 mg PO Q6HR PRN tab 12/15/21 01/02/22 Rx Ipratropium-Albuterol Nebulize 3 ml INHALATION RT-Q6H PRN 12/15/21 01/02/22 History [Duoneb 0.5 mg-3 mg/3 ml Soln] Pantoprazole [Protonix] 40 mg PO AC-BID #60 tab 12/15/21 01/02/22 Rx Nirmatrelvir/Ritonavir [Paxlovid 1 dose PO DIRECTED 01/02/22 01/02/22 History Co-Pack (Eua)] methylPREDNISolone [Medrol Dose See Taper PO DIRECTED 01/02/22 01/02/22 History Pack] Allergies Allergy/AdvReac Type Severity Reaction Status Date / Time codeine AdvReac Nausea & Verified 01/02/22 22:11 Vomiting Physical Exam Vitals: Vital Signs Temp Pulse Resp BP Pulse Ox 01/03/22 06:42 58 L 25 H 147/64 96 01/03/22 04:41 59 L 22 164/81 96 01/03/22 02:00 65 20 148/69 96 01/03/22 01:00 60 20 168/74 96 01/02/22 23:05 61 22 151/80 96 01/02/22 22:05 65 24 174/62 96 01/02/22 21:05 62 20 164/79 96 01/02/22 20:01 98.8 F 60 24 151/65 93 L Intake and Output 01/02/22 01/03/22 01/03/22 22:59 06:59 14:59 Intake Total 81.754 12.730 Balance 81.754 12.730 Intake: Intake, IV Titration 81.754 12.730 Amount Insulin Regular 100 unit 81.754 12.730 In Sodium Chloride 0.9% 100 ml @ 0.1 UNITS/KG/HR 9.758 mls/hr IV .[id number] [facility] Rx#:[id number] Other: Weight 96.615 kg -GENERAL: The patient is alert and oriented x3, not in any acute distress.Obese HEENT: Pupils are round and equally reacting to light. EOMI. No scleral icterus. No conjunctival pallor. Normocephalic, atraumatic. No pharyngeal erythema. No thyromegaly. CARDIOVASCULAR: S1 and S2 present. No murmurs, rubs, or gallops. -PULMONARY: Chest is clear to auscultation,Patient is mildly tachypneic with bilateral expiratory wheezing. No crackles ABDOMEN: Soft, nontender, nondistended, normoactive bowel sounds. No palpable organomegaly. MUSCULOSKELETAL: No joint swelling or deformity. EXTREMITIES: No cyanosis, clubbing, or pedal edema. NEUROLOGICAL: Gross neurological examination did not reveal any focal deficits. SKIN: No rashes. No petechiae Results CBC & Chem 7: 01/03/22 07:43 01/03/22 07:43 Labs: Abnormal Lab Results - Last 24 Hours (Table) 01/02/22 01/02/22 01/02/22 Range/Units 19:56 20:29 20:29 WBC 11.0 H (3.8-10.6) k/uL MCV 104.5 H (80.0-100.0) fL Neutrophils # 9.6 H (1.3-7.7) k/uL Lymphocytes # 0.6 L (1.0-4.8) k/uL VBG pH (7.31-7.41) VBG pCO2 (37-51) mmHg VBG HCO3 (24-28) mmol/L Sodium 127 L (137-145) mmol/L Chloride 93 L (98-107) mmol/L Carbon Dioxide 21 L (22-30) mmol/L BUN 40 H (7-17) mg/dL Creatinine 1.29 H (0.52-1.04) mg/dL Glucose 917 H* (74-99) mg/dL POC Glucose (mg/dL) 375 H (75-99) mg/dL Urine Protein (Negative) Urine Glucose (UA) (Negative) Urine Blood (Negative) Urine Mucus (None) /hpf 01/02/22 01/02/22 01/02/22 Range/Units 20:29 21:17 21:25 WBC (3.8-10.6) k/uL MCV (80.0-100.0) fL Neutrophils # (1.3-7.7) k/uL Lymphocytes # (1.0-4.8) k/uL VBG pH 7.46 H (7.31-7.41) VBG pCO2 30 L (37-51) mmHg VBG HCO3 21 L (24-28) mmol/L Sodium (137-145) mmol/L Chloride (98-107) mmol/L Carbon Dioxide (22-30) mmol/L BUN (7-17) mg/dL Creatinine (0.52-1.04) mg/dL Glucose (74-99) mg/dL POC Glucose (mg/dL) >600 H (75-99) mg/dL Urine Protein 1+ H (Negative) Urine Glucose (UA) 4+ H (Negative) Urine Blood Small H (Negative) Urine Mucus Rare H (None) /hpf 01/02/22 01/03/22 01/03/22 Range/Units 23:08 00:32 00:40 WBC (3.8-10.6) k/uL MCV (80.0-100.0) fL Neutrophils # (1.3-7.7) k/uL Lymphocytes # (1.0-4.8) k/uL VBG pH (7.31-7.41) VBG pCO2 (37-51) mmHg VBG HCO3 (24-28) mmol/L Sodium 134 L (137-145) mmol/L Chloride (98-107) mmol/L Carbon Dioxide (22-30) mmol/L BUN 34 H (7-17) mg/dL Creatinine 1.09 H (0.52-1.04) mg/dL Glucose 415 H (74-99) mg/dL POC Glucose (mg/dL) 528 H 428 H (75-99) mg/dL Urine Protein (Negative) Urine Glucose (UA) (Negative) Urine Blood (Negative) Urine Mucus (None) /hpf 01/03/22 01/03/22 01/03/22 Range/Units 01:42 02:55 03:00 WBC (3.8-10.6) k/uL MCV (80.0-100.0) fL Neutrophils # (1.3-7.7) k/uL Lymphocytes # (1.0-4.8) k/uL VBG pH (7.31-7.41) VBG pCO2 (37-51) mmHg VBG HCO3 (24-28) mmol/L Sodium 135 L (137-145) mmol/L Chloride (98-107) mmol/L Carbon Dioxide (22-30) mmol/L BUN 33 H (7-17) mg/dL Creatinine (0.52-1.04) mg/dL Glucose 244 H (74-99) mg/dL POC Glucose (mg/dL) 332 H 273 H (75-99) mg/dL Urine Protein (Negative) Urine Glucose (UA) (Negative) Urine Blood (Negative) Urine Mucus (None) /hpf 01/03/22 01/03/22 01/03/22 Range/Units 04:36 05:54 06:49 WBC (3.8-10.6) k/uL MCV (80.0-100.0) fL Neutrophils # (1.3-7.7) k/uL Lymphocytes # (1.0-4.8) k/uL VBG pH (7.31-7.41) VBG pCO2 (37-51) mmHg VBG HCO3 (24-28) mmol/L Sodium (137-145) mmol/L Chloride (98-107) mmol/L Carbon Dioxide (22-30) mmol/L BUN (7-17) mg/dL Creatinine (0.52-1.04) mg/dL Glucose (74-99) mg/dL POC Glucose (mg/dL) 246 H 234 H 202 H (75-99) mg/dL Urine Protein (Negative) Urine Glucose (UA) (Negative) Urine Blood (Negative) Urine Mucus (None) /hpf Assessment and Plan Assessment: Possible Bilateral Covid pneumonia versus CHF Possible acute on chronic diastolic CHF Type 2 diabetes mellitus, with hyperglycemia present on admission Dehydration and mild acute kidney injury, improving Recent history of UTI and call the Diabetic neuropathy Hypertension Hyperlipidemia History of coronary artery disease, s/p Coronary Bypass/CABG, Heart Catheterization With Stent Chronic heart failure, no acute exacerbation COPD, no acute exacerbation History of CVA with no residual weakness Memory problems/dementia History of syncope History of pulmonary hypertension History of ESBL UTI Obesity with BMI of 37.7 Plan: This is a pleasant 71 years old female who presents with hyperglycemic nonketotic state Saw the patient on vitamin C, D and zinc. Pulmonary consult Lasix 1 Continue with insulin drip and switched to insulin sliding scale and Levemir once patient is able to eat. Labs and medication were reviewed.. Continue same treatment. Continue with symptomatic treatment. Resume home medication. Monitor lytes and vitals. DVT and GI prophylaxis. Further recommendations depends on the clinical course of the patient DVT prophylaxis: Subcutaneous Lovenox GI Prophylaxis: Pepcid PT/OT: Pending Prognosis is guarded
[2022-01-03] MEDS ORDERED: ALBUTEROL NEBULIZED 2.5 MG/3 ML INHALATION PRN (11:58)
[2022-01-03 12:37] LABS: Glucose,Whole Blood 168 mg/dL (75-99)
[2022-01-03] MEDS: ACETAMINOPHEN TAB 325 MG TAB PO PRN (13:45)
[2022-01-03] MEDS: INSULIN ASPART (NovoLOG) 100 UNIT/ML VIAL SQ SCH ×2 (13:47→18:14)
[2022-01-03] MEDS: ZINC SULFATE 220 MG CAP PO SCH (13:47)
[2022-01-03] MEDS: ASCORBIC ACID 500 MG TAB PO SCH (13:47)
[2022-01-03] MEDS: CHOLECALCIFEROL 25 MCG (1000 IU) TABLET PO SCH (13:52)
--- NOTE | 2022-01-03 15:15 | P.CNPUL ---
History of Present Illness Consult date: 01/03/22 Reason for consult: dyspnea, cough, hypoxemia Chief complaint: Shortness of breath, cough, weakness, fever History of present illness: 71-year-old female patient with past medical history of COPD on home oxygen with baseline FEV1 of 54% of predicted, hypertension, hyperlipidemia, previous history of [place], coronary artery disease with stenting and bypass grafting in 2017, diabetes mellitus type 2, former smoker, and previous history of CVA, patient follows with Dr. Monique in the pulmonary clinic. Patient presented to the emergency department on 01/02/2022 with 2 week history of weakness, shortness of breath, cough and fever. Patient was found to be positive for coarse 19 in the emergency department. She has not been vaccinated against COVID-19. Patient had a blood sugar of over 600 on presentation today emergency department and was also complaining of polydipsia and polyuria. According to the patient she had been compliant with her insulin. Chest x-ray in the emergency department showed interstitial pneumonitis. Dressing blood work has been reviewed showing white blood cell count of 11, hemoglobin of 13.6, lymphocytes of 0.6, neutrophils of 9.6, sodium of 127, potassium is 4.7, chloride is 93, CO2 is 21, anion gap was 13, BUN is 40, creatinine is 1.29, serum glucose was 917, patient was started on insulin infusion, and IV fluids with D5 half-normal saline with 20 of potassium at a rate of 150 ML per hour. Serum acetone was negative 2. Urinalysis showed 1+ protein, 4+ glucose, small amount of blood, but no clear evidence of infection, urine osmolality was 524. LDH was 734, troponin was 0.030, CRP is less than 0.5, proBNP was 2340. Patient is currently on 3 L of oxygen pulse ox is 96%, she is afebrile, she appears weak, fatigued, but does not appear to be in any acute distress. No nausea or vomiting no diarrhea. She was started on inhaled bronchodilators, she did receive a dose of IV Lasix, she was started on prophylactic anticoagulation with Lovenox. Review of Systems All systems: negative Constitutional: Reports weakness, Denies chills, Denies fever Eyes: denies blurred vision, denies pain Ears, nose, mouth and throat: Denies headache, Denies sore throat Cardiovascular: Denies chest pain, Denies shortness of breath Respiratory: Reports cough, Reports dyspnea Gastrointestinal: Denies abdominal pain, Denies diarrhea, Denies nausea, Denies vomiting Genitourinary: Denies dysuria, Denies hematuria Musculoskeletal: Denies myalgias Integumentary: Denies pruritus, Denies rash Neurological: Denies numbness, Denies weakness Psychiatric: Denies anxiety, Denies depression Endocrine: Denies fatigue, Denies weight change Past Medical History Past Medical History: Asthma, Coronary Artery Disease (CAD), Chest Pain / Angina, Heart Failure, COPD, CVA/TIA, Dementia, Diabetes Mellitus, Hyperlipi demia, Hypertension, Myocardial Infarction ([place]), Pneumonia, Respiratory Disorder, Syncope, Vascular Disorder Additional Past Medical History / Comment(s): IDDM type II, neuropathy bilateral feet, 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, R caratid artery disease, valvular disease, pulmonary htn, bronchitis, home oxygen prn, poor vision/pt cannot recall reason, UTIs, rash/itching Last Myocardial Infarction Date:: 2014 History of Any Multi-Drug Resistant Organisms: ESBL Date of last positivie culture/infection: 04/15/21 MDRO Source:: ESBL URINE Past Surgical History: Cholecystectomy, Coronary Bypass/CABG, Heart Catheterization With Stent Additional Past Surgical History / Comment(s): PCI/stents in 2009 and 2014, 2016 CABG 3 vessel then sternal debridement for infection/removal of hardware, colonoscopy, bilateral cataract removals. Past Anesthesia/Blood Transfusion Reactions: No Reported Reaction Additional Past Anesthesia/Blood Transfusion Reaction / Comment(s): Claustrophobic Date of Last Stent Placement:: 2014 Past Psychological History: No Psychological Hx Reported Additional Psychological History / Comment(s): Pt's mague lives with her. Pt states she uses no assistive device. She has a nebulizer and home oxygen which she uses prn. She no longer drives, her mague takes her to app. Smoking Status: Former smoker Past Alcohol Use History: None Reported Additional Past Alcohol Use History / Comment(s): Pt started smoking in 1963 and quit in 2009 Past Drug Use History: None Reported - Past Family History Father Family Medical History: Coronary Artery Disease (CAD), Myocardial Infarction ([place]) Additional Family Medical History / Comment(s): STENT, OPEN HEART SURGERY Mother Additional Family Medical History / Comment(s): DEPRESSION, mental illness Medications and Allergies Home Medications Medication Instructions Recorded Confirmed Type Metoprolol Succinate [Toprol XL] 50 mg PO HS 08/30/18 01/02/22 History Furosemide [Lasix] 20 mg PO DAILY PRN 05/19/20 01/02/22 History Atorvastatin [Lipitor] 80 mg PO HS 09/23/20 01/02/22 History hydrOXYzine HCL [Atarax] 25 mg PO TID PRN 09/23/20 01/02/22 History Insulin Lispro [humaLOG Kwikpen] 15 units SQ AC-TID 11/11/20 01/02/22 History traMADol HCL [Ultram] 50 mg PO BID PRN 02/07/21 01/02/22 History Budesonide-Formot 160-4.5 Mcg 2 puff INHALATION RT-BID 04/12/21 01/02/22 History [Symbicort 160-4.5 Mcg Inhaler] Aspirin EC [Ecotrin Low Dose] 81 mg PO DAILY 12/12/21 01/02/22 History Clopidogrel Bisulfate [Plavix] 75 mg PO DAILY 12/12/21 01/02/22 History Insulin Glargine,Hum.rec.anlog 80 unit SQ HS 12/12/21 01/02/22 History [Lantus Solostar Pen] Valsartan 80 mg PO HS 12/12/21 01/02/22 History Acetaminophen Tab [Tylenol] 650 mg PO Q6HR PRN tab 12/15/21 01/02/22 Rx Ipratropium-Albuterol Nebulize 3 ml INHALATION RT-Q6H PRN 12/15/21 01/02/22 History [Duoneb 0.5 mg-3 mg/3 ml Soln] Pantoprazole [Protonix] 40 mg PO AC-BID #60 tab 12/15/21 01/02/22 Rx Nirmatrelvir/Ritonavir [Paxlovid 1 dose PO DIRECTED 01/02/22 01/02/22 History Co-Pack (Eua)] methylPREDNISolone [Medrol Dose See Taper PO DIRECTED 01/02/22 01/02/22 History Pack] Allergies Allergy/AdvReac Type Severity Reaction Status Date / Time codeine AdvReac Nausea & Verified 01/02/22 22:11 Vomiting Physical Exam Vitals: Vital Signs Temp Pulse Resp BP Pulse Ox 01/03/22 13:30 98.9 F 62 20 154/86 96 01/03/22 08:46 62 20 120/80 96 01/03/22 07:31 59 L 24 146/77 96 01/03/22 06:42 58 L 25 H 147/64 96 01/03/22 04:41 59 L 22 164/81 96 01/03/22 02:00 65 20 148/69 96 01/03/22 01:00 60 20 168/74 96 01/02/22 23:05 61 22 151/80 96 01/02/22 22:05 65 24 174/62 96 01/02/22 21:05 62 20 164/79 96 01/02/22 20:01 98.8 F 60 24 151/65 93 L Intake and Output 01/02/22 01/03/22 01/03/22 22:59 06:59 14:59 Intake Total 81.754 12.730 Balance 81.754 12.730 Intake: Intake, IV Titration 81.754 12.730 Amount Insulin Regular 100 unit 81.754 12.730 In Sodium Chloride 0.9% 100 ml @ 0.1 UNITS/KG/HR 9.758 mls/hr IV .[id number] [facility] Rx#:[id number] Other: Weight 96.615 kg 96.615 kg GENERAL EXAM: Drowsy, but arousable, oriented 3, 71-year-old female, on 3 L of oxygen, resting on the [facility] emergency department comfortable in no apparent distress. HEAD: Normocephalic/atraumatic. EYES: Normal reaction of pupils, equal size. Conjunctiva pink, sclera white. NOSE: Clear with pink turbinates. THROAT: No erythema or exudates. NECK: No masses, no JVD, no thyroid enlargement, no adenopathy. CHEST: No chest wall deformity. Symmetrical expansion. LUNGS: Equal air entry with no crackles, wheeze, rhonchi or dullness. CVS: Regular rate and rhythm, normal S1 and S2, no gallops, no murmurs, no rubs ABDOMEN: Soft, nontender. No hepatosplenomegaly, normal bowel sounds, no guarding or rigidity. EXTREMITIES: No clubbing, no edema, no cyanosis, 2+ pulses and upper and lower extremities. MUSCULOSKELETAL: Muscle strength and tone normal. SPINE: No scoliosis or deformity SKIN: No rashes CENTRAL NERVOUS SYSTEM: Alert and oriented -3. No focal deficits, tone is normal in all 4 extremities. PSYCHIATRIC: Alert and oriented -3. Appropriate affect. Intact judgment and insight. Results - Laboratory Findings CBC and BMP: 01/03/22 07:43 01/03/22 07:43 PT/INR, D-dimer PT 10.4 sec (9.0-12.0) 01/03/22 07:43 INR 0.9 (<1.2) 01/03/22 07:43 Abnormal lab findings: Abnormal Labs 01/02/22 01/02/22 01/02/22 19:56 20:29 20:29 WBC 11.0 H RBC MCV 104.5 H Neutrophils # 9.6 H Lymphocytes # 0.6 L APTT VBG pH VBG pCO2 VBG HCO3 Sodium 127 L Chloride 93 L Carbon Dioxide 21 L BUN 40 H Creatinine 1.29 H Glucose 917 H* POC Glucose (mg/dL) 375 H Hemoglobin A1c Calcium Phosphorus Lactate Dehydrogenase Total Protein Albumin Vitamin B12 Urine Protein Urine Glucose (UA) Urine Blood Urine Mucus Coronavirus (PCR) 01/02/22 01/02/22 01/02/22 20:29 21:17 21:25 WBC RBC MCV Neutrophils # Lymphocytes # APTT VBG pH 7.46 H VBG pCO2 30 L VBG HCO3 21 L Sodium Chloride Carbon Dioxide BUN Creatinine Glucose POC Glucose (mg/dL) >600 H Hemoglobin A1c Calcium Phosphorus Lactate Dehydrogenase Total Protein Albumin Vitamin B12 Urine Protein 1+ H Urine Glucose (UA) 4+ H Urine Blood Small H Urine Mucus Rare H Coronavirus (PCR) 01/02/22 01/03/22 01/03/22 23:08 00:32 00:40 WBC RBC MCV Neutrophils # Lymphocytes # APTT VBG pH VBG pCO2 VBG HCO3 Sodium 134 L Chloride Carbon Dioxide BUN 34 H Creatinine 1.09 H Glucose 415 H POC Glucose (mg/dL) 528 H 428 H Hemoglobin A1c Calcium Phosphorus Lactate Dehydrogenase Total Protein Albumin Vitamin B12 Urine Protein Urine Glucose (UA) Urine Blood Urine Mucus Coronavirus (PCR) 01/03/22 01/03/22 01/03/22 01:42 02:55 03:00 WBC RBC MCV Neutrophils # Lymphocytes # APTT VBG pH VBG pCO2 VBG HCO3 Sodium 135 L Chloride Carbon Dioxide BUN 33 H Creatinine Glucose 244 H POC Glucose (mg/dL) 332 H 273 H Hemoglobin A1c Calcium Phosphorus Lactate Dehydrogenase Total Protein Albumin Vitamin B12 Urine Protein Urine Glucose (UA) Urine Blood Urine Mucus Coronavirus (PCR) 01/03/22 01/03/22 01/03/22 04:36 05:54 06:49 WBC RBC MCV Neutrophils # Lymphocytes # APTT VBG pH VBG pCO2 VBG HCO3 Sodium Chloride Carbon Dioxide BUN Creatinine Glucose POC Glucose (mg/dL) 246 H 234 H 202 H Hemoglobin A1c Calcium Phosphorus Lactate Dehydrogenase Total Protein Albumin Vitamin B12 Urine Protein Urine Glucose (UA) Urine Blood Urine Mucus Coronavirus (PCR) 01/03/22 01/03/22 01/03/22 07:43 07:43 07:43 WBC RBC 3.63 L MCV Neutrophils # 8.4 H Lymphocytes # APTT VBG pH VBG pCO2 VBG HCO3 Sodium 136 L Chloride Carbon Dioxide BUN 28 H Creatinine Glucose 183 H POC Glucose (mg/dL) Hemoglobin A1c 11.3 H Calcium 7.7 L Phosphorus 2.1 L Lactate Dehydrogenase 734 H Total Protein 5.9 L Albumin 2.9 L Vitamin B12 1097.0 H Urine Protein Urine Glucose (UA) Urine Blood Urine Mucus Coronavirus (PCR) 01/03/22 01/03/22 01/03/22 07:43 08:07 08:47 WBC RBC MCV Neutrophils # Lymphocytes # APTT 20.4 L VBG pH VBG pCO2 VBG HCO3 Sodium Chloride Carbon Dioxide BUN Creatinine Glucose POC Glucose (mg/dL) 176 H Hemoglobin A1c Calcium Phosphorus Lactate Dehydrogenase Total Protein Albumin Vitamin B12 Urine Protein Urine Glucose (UA) Urine Blood Urine Mucus Coronavirus (PCR) Detected A 01/03/22 01/03/22 10:05 12:36 WBC RBC MCV Neutrophils # Lymphocytes # APTT VBG pH VBG pCO2 VBG HCO3 Sodium Chloride Carbon Dioxide BUN Creatinine Glucose POC Glucose (mg/dL) 143 H 168 H Hemoglobin A1c Calcium Phosphorus Lactate Dehydrogenase Total Protein Albumin Vitamin B12 Urine Protein Urine Glucose (UA) Urine Blood Urine Mucus Coronavirus (PCR) - Diagnostic Findings Chest x-ray: report reviewed, image reviewed Assessment and Plan Plan: Assessment: #1. Acute COVID-19 infection, with possibility of COVID-19 pneumonia. Patient came in with two-week history of weakness, fever, cough, and shortness of breath. Patient is not vaccinated against COVID-19. Patient is outside the window for Remdesivir, Paxlovid, or monoclonal antibody #2. Acute hyperosmolar hyperglycemic syndrome #3. Hyponatremia, sodium of 127, likely related to dehydration and hypovolemia #4. History of severe COPD, with FEV1 of 54% of predicted on home oxygen #5. History of obesity with BMI of 37.7 kg/m #6. Previous history of [place] #7. Hypertension #8. Hyperlipidemia #9. Previous history of pneumonia #10. Diabetes mellitus type 2 #11. Degeneration of lumbar anterior vertebral disc Plan: Patient is outside the window for Remdesivir, Paxlovid or monoclonal antibody We'll start Decadron 6 mg daily Continue insulin infusion, and IV hydration per DKA protocol Close monitoring of blood sugar Continue multivitamins Continue inhaled bronchodilators Continue prophylactic anticoagulation We'll continue to follow clinical course I have personally seen and examined the patient, performed the documentation and the assessment and plan as written. Number of minutes spent on the visit: [15] Time with Patient: Greater than 30
[2022-01-03] MEDS: dexAMETHasone 2 MG TAB PO SCH (15:56)
[2022-01-03 17:48] LABS: Glucose,Whole Blood 313 mg/dL (75-99)
[2022-01-04] LABS: Glucose,Whole Blood 444 mg/dL (75-99)
[2022-01-04] MEDS ORDERED: INSULIN ASPART (NovoLOG) 100 UNIT/ML VIAL SQ ONE (00:06)
[2022-01-04] MEDS: INSULIN ASPART (NovoLOG) 100 UNIT/ML VIAL SQ SCH ×3 (00:27→19:41)
[2022-01-04] MEDS: METOPROLOL SUCCINATE (ER) 50 MG TAB.ER.24H PO SCH ×2 (00:28→21:14)
[2022-01-04] MEDS: ATORVASTATIN 80 MG TAB PO SCH ×2 (00:28→21:14)
[2022-01-04] MEDS: VALSARTAN 80 MG TAB PO SCH ×2 (00:29→21:13)
[2022-01-04] MEDS: ACETAMINOPHEN TAB 325 MG TAB PO PRN (00:33)
[2022-01-04] MEDS: D5-0.45% NACL WITH KCL 20MEQ/L 1,000 ML IV SCH (01:42)
[2022-01-04 07:36] LABS: Glucose,Whole Blood 399 mg/dL (75-99)
[2022-01-04] MEDS: ALBUTEROL HFA INHALER INHALATION PRN ×4 (07:59→21:55)
[2022-01-04] MEDS: SYMBICORT 160-4.5 MCG INHALER INHALATION SCH ×3 (07:59→21:55)
[2022-01-04 09:03] LABS: Basophils # (A) 0.03 X 10*3/uL (0.00-0.10); Basophils % (A) 0.3 %; Eosinophils # (A) 0 X 10*3/uL (0.04-0.35); Eosinophils % (A) 0 %; HCT 36.2 % (37.2-46.3); HGB 12.1 g/dL (12.0-15.0); Immature Grans, Automated 2.1 %; Lymphocytes # (A) 0.97 X 10*3/uL (0.90-5.00); Lymphocytes % (A) 9.9 %; MCH 32.1 pg (27.0-32.0); MCHC 33.4 g/dL (32.0-37.0); Mean Platelet Volume 10.4 fL (9.5-12.2); Monocytes # (A) 0.56 X 10*3/uL (0.20-1.00); Monocytes % (A) 5.7 %; NRBC Per 100 WBC 0 /100 WBCS (0.0-0.0); Neutrophils # (A) 8.05 X 10*3/uL (1.80-7.70); Platelet Count 377 X 10*3/uL (140-440); RBC 3.77 X 10*6/uL (4.10-5.20); RDW 11.4 % (11.5-14.5); WBC 9.82 X 10*3/uL (4.50-10.00)
[2022-01-04 09:15] LABS: African American GFR (CKD) 47.8 (60.0-200.0); Albumin 3.2 g/dL (3.8-4.9); Albumin/Globulin Ratio 1.23 (1.60-3.17); Anion Gap 11.9 mmol/L (10.00-18.00); BUN/Creat Ratio 20.62 Ratio (12.00-20.00); Blood Urea Nitrogen 26.8 mg/dL (9.0-27.0); Calcium 8.5 mg/dL (8.7-10.3); Carbon Dioxide 23.1 mmol/L (20.0-27.5); Globulin 2.6 g/dL (1.6-3.3); Magnesium 2.1 mg/dL (1.5-2.4); Non-African American GFR(CKD) 41.2 (60.0-200.0); Potassium 4.2 mmol/L (3.5-5.5); Total Bilirubin 0.4 mg/dL (0.30-1.20); Total Protein 5.8 g/dL (6.2-8.2)
[2022-01-04] MEDS: ENOXAPARIN 40 MG/0.4 ML SYRINGE SQ SCH (09:41)
[2022-01-04] MEDS: CLOPIDOGREL 75 MG TAB PO SCH (09:41)
[2022-01-04] MEDS: CHOLECALCIFEROL 25 MCG (1000 IU) TABLET PO SCH (09:41)
[2022-01-04] MEDS: ZINC SULFATE 220 MG CAP PO SCH (09:41)
[2022-01-04] MEDS: ASCORBIC ACID 500 MG TAB PO SCH (09:41)
[2022-01-04] MEDS: dexAMETHasone 2 MG TAB PO SCH (09:41)
[2022-01-04] MEDS: INSULIN DETEMIR (LEVEMIR) 100 UNIT/ML SYR SQ SCH (09:42)
[2022-01-04] MEDS: ASPIRIN 81 MG PO SCH (09:42)
[2022-01-04] MEDS: PANTOPRAZOLE 40 MG TABLET PO SCH ×2 (09:47→18:26)
--- NOTE | 2022-01-04 10:54 | P.PN ---
Subjective This is a pleasant 71 years old female with past medical history of Asthma, Coronary Artery Disease, Heart Failure, COPD, CVA/TIA, Dementia, Diabetes Mellitus, Hyperlipidemia, Hypertension, Syncope, , IDDM type II, neuropathy bilateral feet, 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, R caratid artery disease, valvular disease, pulmonary htn, bronchitis, home oxygen prn, poor vision/pt cannot recall reason, ESBL UTI,CAD s/p Coronary Bypass/CABG, Heart Catheterization With Stent Patient was recently discharged from hospital for UTI and covid, patient was discharged for-12/15 for UTI and hyperglycemia. She did not need antibiotic upon discharge at that time. She presents because of dyspnea for about one week, and was gradually getting wo rse associated with cough and yellowish phlegm and central chest pain with coughing. Also patient has diarrhea about twice per day with no blood, vomited twice yesterday with no blood. Patient is afebrile, heart rate in 60s, blood pressure 168/74, she is saturating 96% on room air but she is slightly tachypneic with a rate around 20-24 CBC showing WBC of 11 which is slightly elevated, rest of CBC is unremarkable. Sodium 135, creatinine 1.0. Glucose was elevated on admission more than 600, currently contracted above 200.(200-250). Her glucose on initial admission was 917 EKG showing normal sinus rhythm at [address]-T changes Urine analysis showing glucosuria and 1+ protein. Acetone is negative Echocardiogram on 12/13/2021:ejection fraction 55-60%. 01/05/2012 Temp with bilateral Covid pneumonia, she still short of breath with mild improvement. No significant cough. She still has diarrhea. She has good appetite. She is on room air. Vitals are stable. CBC is unremarkable. Creatinine is 1.3. Leukocytosis elevated 399 this morning, we increased his insulin into home dose of 80 units daily. Objective - Vital Signs Vital signs: Vital Signs Temp 97.3 F L 01/04/22 05:52 Pulse 50 L 01/04/22 05:52 Resp 24 01/04/22 05:52 BP 155/77 01/04/22 05:52 Pulse Ox 94 L 01/04/22 05:52 Intake & Output 05/10/22 05/11/22 05/11/22 18:59 06:59 18:59 Intake Total 12.730 180 Balance 12.730 180 Weight 96.615 kg 105.5 kg Intake: Intake, IV Titration 12.730 Amount Insulin Regular 100 unit 12.730 In Sodium Chloride 0.9% 100 ml @ 0.1 UNITS/KG/HR 9.758 mls/hr IV .[id number] [facility] Rx#:[id number] Oral 180 Other: # Voids 3 - Exam -GENERAL: The patient is alert and oriented x3, not in any acute distress.Obese HEENT: Pupils are round and equally reacting to light. EOMI. No scleral icterus. No conjunctival pallor. Normocephalic, atraumatic. No pharyngeal erythema. No thyromegaly. CARDIOVASCULAR: S1 and S2 present. No murmurs, rubs, or gallops. -PULMONARY: Chest is clear to auscultation,Patient is mildly tachypneic with bilateral expiratory wheezing. No crackles ABDOMEN: Soft, nontender, nondistended, normoactive bowel sounds. No palpable organomegaly. MUSCULOSKELETAL: No joint swelling or deformity. EXTREMITIES: No cyanosis, clubbing, or pedal edema. NEUROLOGICAL: Gross neurological examination did not reveal any focal deficits. SKIN: No rashes. No petechiae - Labs CBC & Chem 7: 01/04/22 03:32 01/04/22 03:32 Labs: Abnormal Lab Results - Last 24 Hours (Table) 01/03/22 01/03/22 01/03/22 Range/Units 07:43 07:43 10:05 RBC (4.10-5.20) X 10*6/uL Hct (37.2-46.3) % MCH (27.0-32.0) pg RDW (11.5-14.5) % Immature Gran # (0.00-0.04) X 10*3/uL Neutrophils # (1.80-7.70) X 10*3/uL Eosinophils # (0.04-0.35) X 10*3/uL D-Dimer (<0.60) mg/L FEU Sodium (135-145) mmol/L Est GFR (CKD-EPI)AfAm (60.0-200.0) Est GFR (CKD-EPI)NonAf (60.0-200.0) BUN/Creatinine Ratio (12.00-20.00) Ratio Glucose (70-110) mg/dL POC Glucose (mg/dL) 143 H (75-99) mg/dL Hemoglobin A1c 11.3 H (0.0-6.0) % Calcium (8.7-10.3) mg/dL Total Protein (6.2-8.2) g/dL Albumin (3.8-4.9) g/dL Albumin/Globulin Ratio (1.60-3.17) g/dL Vitamin B12 1097.0 H (200.0-944.0) pg/mL 01/03/22 01/03/22 01/03/22 Range/Units 12:36 16:00 17:46 RBC (4.10-5.20) X 10*6/uL Hct (37.2-46.3) % MCH (27.0-32.0) pg RDW (11.5-14.5) % Immature Gran # (0.00-0.04) X 10*3/uL Neutrophils # (1.80-7.70) X 10*3/uL Eosinophils # (0.04-0.35) X 10*3/uL D-Dimer 1.02 H (<0.60) mg/L FEU Sodium (135-145) mmol/L Est GFR (CKD-EPI)AfAm (60.0-200.0) Est GFR (CKD-EPI)NonAf (60.0-200.0) BUN/Creatinine Ratio (12.00-20.00) Ratio Glucose (70-110) mg/dL POC Glucose (mg/dL) 168 H 313 H (75-99) mg/dL Hemoglobin A1c (0.0-6.0) % Calcium (8.7-10.3) mg/dL Total Protein (6.2-8.2) g/dL Albumin (3.8-4.9) g/dL Albumin/Globulin Ratio (1.60-3.17) g/dL Vitamin B12 (200.0-944.0) pg/mL 01/03/22 01/04/22 01/04/22 Range/Units 23:58 03:32 03:32 RBC 3.77 L (4.10-5.20) X 10*6/uL Hct 36.2 L (37.2-46.3) % MCH 32.1 H (27.0-32.0) pg RDW 11.4 L (11.5-14.5) % Immature Gran # 0.21 H (0.00-0.04) X 10*3/uL Neutrophils # 8.05 H (1.80-7.70) X 10*3/uL Eosinophils # 0 L (0.04-0.35) X 10*3/uL D-Dimer (<0.60) mg/L FEU Sodium 132 L (135-145) mmol/L Est GFR (CKD-EPI)AfAm 47.8 L (60.0-200.0) Est GFR (CKD-EPI)NonAf 41.2 L (60.0-200.0) BUN/Creatinine Ratio 20.62 H (12.00-20.00) Ratio Glucose 462 H (70-110) mg/dL POC Glucose (mg/dL) 444 H (75-99) mg/dL Hemoglobin A1c (0.0-6.0) % Calcium 8.5 L (8.7-10.3) mg/dL Total Protein 5.8 L (6.2-8.2) g/dL Albumin 3.2 L (3.8-4.9) g/dL Albumin/Globulin Ratio 1.23 L (1.60-3.17) g/dL Vitamin B12 (200.0-944.0) pg/mL 01/04/22 Range/Units 07:31 RBC (4.10-5.20) X 10*6/uL Hct (37.2-46.3) % MCH (27.0-32.0) pg RDW (11.5-14.5) % Immature Gran # (0.00-0.04) X 10*3/uL Neutrophils # (1.80-7.70) X 10*3/uL Eosinophils # (0.04-0.35) X 10*3/uL D-Dimer (<0.60) mg/L FEU Sodium (135-145) mmol/L Est GFR (CKD-EPI)AfAm (60.0-200.0) Est GFR (CKD-EPI)NonAf (60.0-200.0) BUN/Creatinine Ratio (12.00-20.00) Ratio Glucose (70-110) mg/dL POC Glucose (mg/dL) 399 H (75-99) mg/dL Hemoglobin A1c (0.0-6.0) % Calcium (8.7-10.3) mg/dL Total Protein (6.2-8.2) g/dL Albumin (3.8-4.9) g/dL Albumin/Globulin Ratio (1.60-3.17) g/dL Vitamin B12 (200.0-944.0) pg/mL Assessment and Plan Assessment: Possible Bilateral Covid pneumonia versus CHF Possible acute on chronic diastolic CHF Type 2 diabetes mellitus, with hyperglycemia present on admission Dehydration and mild acute kidney injury, improving Recent history of UTI and call the Diabetic neuropathy Hypertension Hyperlipidemia History of coronary artery disease, s/p Coronary Bypass/CABG, Heart Catheterization With Stent Chronic heart failure, no acute exacerbation COPD, no acute exacerbation History of CVA with no residual weakness Memory problems/dementia History of syncope History of pulmonary hypertension History of ESBL UTI Obesity with BMI of 37.7 Plan: This is a pleasant 71 years old female who presents with hyperglycemic nonketotic state Saw the patient on vitamin C, D and zinc. Pulmonary consult Lasix 1 Continue with insulin drip and switched to insulin sliding scale and Levemir once patient is able to eat. Labs and medication were reviewed.. Continue same treatment. Continue with symptomatic treatment. Resume home medication. Monitor lytes and vitals. DVT and GI prophylaxis. Further recommendations depends on the clinical course of the patient DVT prophylaxis: Subcutaneous Lovenox GI Prophylaxis: Pepcid PT/OT: Pending Prognosis is guarded
[2022-01-04 11:33] LABS: Glucose,Whole Blood >600 mg/dL (75-99)
[2022-01-04 11:33] LABS: Glucose,Whole Blood >600 mg/dL (75-99)
[2022-01-04 11:40] LABS: Glucose,Whole Blood >600 mg/dL (75-99)
[2022-01-04 13:16] VITALS: BMI 41.2
[2022-01-04 14:29] LABS: Glucose,Whole Blood >600 mg/dL (75-99)
--- NOTE | 2022-01-04 14:47 | P.PN ---
Subjective Progress Note Date: 01/04/22 Principal diagnosis: Dyspnea, cough, hypoxia 71-year-old female patient with past medical history of COPD on home oxygen with baseline FEV1 of 54% of predicted, hypertension, hyperlipidemia, previous history of CA, coronary artery disease with stenting and bypass grafting in 201 7, diabetes mellitus type 2, former smoker, and previous history of CVA, patient follows with Dr. Monique in the pulmonary clinic. Patient presented to the emergency department on 01/02/2022 with 2 week history of weakness, shortness of breath, cough and fever. Patient was found to be positive for coarse 19 in the emergency department. She has not been vaccinated against COVID-19. Patient had a blood sugar of over 600 on presentation today emergency department and was also complaining of polydipsia and polyuria. According to the patient she had been compliant with her insulin. Chest x-ray in the emergency department showed interstitial pneumonitis. Dressing blood work has been reviewed showing white blood cell count of 11, hemoglobin of 13.6, lymphocytes of 0.6, neutrophils of 9.6, sodium of 127, potassium is 4.7, chloride is 93, CO2 is 21, anion gap was 13, BUN is 40, creatinine is 1.29, serum glucose was 917, patient was started on insulin infusion, and IV fluids with D5 half-normal saline with 20 of potassium at a rate of 150 ML per hour. Serum acetone was negative 2. Urinalysis showed 1+ protein, 4+ glucose, small amount of blood, but no clear evidence of infection, urine osmolality was 524. LDH was 734, troponin was 0.030, CRP is less than 0.5, proBNP was 2340. Patient is currently on 3 L of oxygen pulse ox is 96%, she is afebrile, she appears weak, fatigued, but does not appear to be in any acute distress. No nausea or vomiting no diarrhea. She was started on inhaled bronchodilators, she did receive a dose of IV Lasix, she was started on prophylactic anticoagulation with Lovenox. On 01/04/2022 patient seen in follow-up on medical surgical floor. She is breathing comfortably, she is on room air, pulse ox is 94%, she sits up on the bed, does not appear to be in any acute respiratory distress, no complaint of chest pain, her cough is improving. No hemoptysis. No fever or chills, room air pulse ox is 97%, vital signs have been stable. Patient was found to be COVID-19 positive. However she was sick for greater than 2 weeks, she was outside the window for Remdesivir or monoclonal antibodies. She is currently on Decadron 6 mg daily, multivitamins, inhaled bronchodilators, and prophylactic anticoagulation. She remains on insulin infusion, long-acting basal insulin has been added in the form of Levemir 80 units in the morning. She still remains quite hyperglycemic with blood sugar in the 700s. Primary care service is managing the insulin drip. Today's labs have been reviewed, with blood cell count is 9.8, hemoglobin of 12.1, sodium is 132, the rest of electrolytes and renal profile were unremarkable. TYLENOL level was negative at 0.06. Objective - Vital Signs Vital signs: Vital Signs Temp 98.4 F 01/04/22 14:01 Pulse 66 01/04/22 14:01 Resp 25 H 01/04/22 14:01 BP 158/66 01/04/22 14:01 Pulse Ox 97 01/04/22 14:01 Intake & Output 01/03/22 01/04/22 01/04/22 18:59 06:59 18:59 Intake Total 12.730 180 Balance 12.730 180 Weight 96.615 kg 105.5 kg 105.5 kg Intake: Intake, IV Titration 12.730 Amount Insulin Regular 100 unit 12.730 In Sodium Chloride 0.9% 100 ml @ 0.1 UNITS/KG/HR 9.758 mls/hr IV .[id number] [facility] Rx#:[id number] Oral 180 Other: # Voids 3 - Exam GENERAL EXAM: Drowsy, but arousable, oriented 3, 71-year-old female, on room air, pulse ox of 97% resting on [facility] emergency department comfortable in no apparent distress. HEAD: Normocephalic/atraumatic. EYES: Normal reaction of pupils, equal size. Conjunctiva pink, sclera white. NOSE: Clear with pink turbinates. THROAT: No erythema or exudates. NECK: No masses, no JVD, no thyroid enlargement, no adenopathy. CHEST: No chest wall deformity. Symmetrical expansion. LUNGS: Equal air entry with no crackles, wheeze, rhonchi or dullness. CVS: Regular rate and rhythm, normal S1 and S2, no gallops, no murmurs, no rubs ABDOMEN: Soft, nontender. No hepatosplenomegaly, normal bowel sounds, no guarding or rigidity. EXTREMITIES: No clubbing, no edema, no cyanosis, 2+ pulses and upper and lower extremities. MUSCULOSKELETAL: Muscle strength and tone normal. SPINE: No scoliosis or deformity SKIN: No rashes CENTRAL NERVOUS SYSTEM: Alert and oriented -3. No focal deficits, tone is normal in all 4 extremities. PSYCHIATRIC: Alert and oriented -3. Appropriate affect. Intact judgment and insight. - Labs CBC & Chem 7: 01/04/22 03:32 01/04/22 12:16 Labs: Abnormal Lab Results - Last 24 Hours (Table) 01/03/22 01/03/22 01/03/22 Range/Units 16:00 17:46 23:58 RBC (4.10-5.20) X 10*6/uL Hct (37.2-46.3) % MCH (27.0-32.0) pg RDW (11.5-14.5) % Immature Gran # (0.00-0.04) X 10*3/uL Neutrophils # (1.80-7.70) X 10*3/uL Eosinophils # (0.04-0.35) X 10*3/uL D-Dimer 1.02 H (<0.60) mg/L FEU Sodium (135-145) mmol/L Est GFR (CKD-EPI)AfAm (60.0-200.0) Est GFR (CKD-EPI)NonAf (60.0-200.0) BUN/Creatinine Ratio (12.00-20.00) Ratio Glucose (70-110) mg/dL POC Glucose (mg/dL) 313 H 444 H (75-99) mg/dL Calcium (8.7-10.3) mg/dL Total Protein (6.2-8.2) g/dL Albumin (3.8-4.9) g/dL Albumin/Globulin Ratio (1.60-3.17) g/dL 01/04/22 01/04/22 01/04/22 Range/Units 03:32 03:32 07:31 RBC 3.77 L (4.10-5.20) X 10*6/uL Hct 36.2 L (37.2-46.3) % MCH 32.1 H (27.0-32.0) pg RDW 11.4 L (11.5-14.5) % Immature Gran # 0.21 H (0.00-0.04) X 10*3/uL Neutrophils # 8.05 H (1.80-7.70) X 10*3/uL Eosinophils # 0 L (0.04-0.35) X 10*3/uL D-Dimer (<0.60) mg/L FEU Sodium 132 L (135-145) mmol/L Est GFR (CKD-EPI)AfAm 47.8 L (60.0-200.0) Est GFR (CKD-EPI)NonAf 41.2 L (60.0-200.0) BUN/Creatinine Ratio 20.62 H (12.00-20.00) Ratio Glucose 462 H (70-110) mg/dL POC Glucose (mg/dL) 399 H (75-99) mg/dL Calcium 8.5 L (8.7-10.3) mg/dL Total Protein 5.8 L (6.2-8.2) g/dL Albumin 3.2 L (3.8-4.9) g/dL Albumin/Globulin Ratio 1.23 L (1.60-3.17) g/dL 01/04/22 01/04/22 01/04/22 Range/Units 11:29 11:30 11:37 RBC (4.10-5.20) X 10*6/uL Hct (37.2-46.3) % MCH (27.0-32.0) pg RDW (11.5-14.5) % Immature Gran # (0.00-0.04) X 10*3/uL Neutrophils # (1.80-7.70) X 10*3/uL Eosinophils # (0.04-0.35) X 10*3/uL D-Dimer (<0.60) mg/L FEU Sodium (135-145) mmol/L Est GFR (CKD-EPI)AfAm (60.0-200.0) Est GFR (CKD-EPI)NonAf (60.0-200.0) BUN/Creatinine Ratio (12.00-20.00) Ratio Glucose (70-110) mg/dL POC Glucose (mg/dL) >600 H >600 H >600 H (75-99) mg/dL Calcium (8.7-10.3) mg/dL Total Protein (6.2-8.2) g/dL Albumin (3.8-4.9) g/dL Albumin/Globulin Ratio (1.60-3.17) g/dL 01/04/22 01/04/22 Range/Units 12:16 14:28 RBC (4.10-5.20) X 10*6/uL Hct (37.2-46.3) % MCH (27.0-32.0) pg RDW (11.5-14.5) % Immature Gran # (0.00-0.04) X 10*3/uL Neutrophils # (1.80-7.70) X 10*3/uL Eosinophils # (0.04-0.35) X 10*3/uL D-Dimer (<0.60) mg/L FEU Sodium (135-145) mmol/L Est GFR (CKD-EPI)AfAm (60.0-200.0) Est GFR (CKD-EPI)NonAf (60.0-200.0) BUN/Creatinine Ratio (12.00-20.00) Ratio Glucose 709 H* (70-110) mg/dL POC Glucose (mg/dL) >600 H (75-99) mg/dL Calcium (8.7-10.3) mg/dL Total Protein (6.2-8.2) g/dL Albumin (3.8-4.9) g/dL Albumin/Globulin Ratio (1.60-3.17) g/dL Assessment and Plan Plan: Assessment: #1. Acute COVID-19 infection, with possibility of COVID-19 pneumonia. Patient came in with two-week history of weakness, fever, cough, and shortness of breath. Patient is not vaccinated against COVID-19. Patient is outside the window for Remdesivir, Paxlovid, or monoclonal antibody #2. Acute hyperosmolar hyperglycemic syndrome #3. Hyponatremia, sodium of 127, likely related to dehydration and hypovolemia #4. History of severe COPD, with FEV1 of 54% of predicted on home oxygen #5. History of obesity with BMI of 37.7 kg/m #6. Previous history of CA #7. Hypertension #8. Hyperlipidemia #9. Previous history of pneumonia #10. Diabetes mellitus type 2 #11. Degeneration of lumbar anterior vertebral disc #12. Steroid-induced hyperglycemia Plan: Patient is doing better However in view of steroids and developed severe steroid-induced hyperglycemia We'll contact the Decadron to 4 mg Breathing is stable, cough is improving No fever or chills Continue prophylactic anticoagulation Insulin management per primary care service We'll continue to follow her clinical course I have personally seen and examined the patient, performed the documentation and the assessment and plan as written. Number of minutes spent on the visit: [15] Time with Patient: Less than 30
[2022-01-04 16:01] LABS: Glucose,Whole Blood >600 mg/dL (75-99)
[2022-01-04] MEDS: INSULIN REGULAR 100 UNIT in SODIUM CHLORIDE 0.9% 100 ML IV SCH ×2 (16:30→19:23)
[2022-01-04 17:00] LABS: Glucose,Whole Blood >600 mg/dL (75-99)
[2022-01-04 17:42] LABS: Glucose,Whole Blood >600 mg/dL (75-99)
[2022-01-04 18:08] LABS: Glucose,Whole Blood 510 mg/dL (75-99)
[2022-01-04 19:01] LABS: Glucose,Whole Blood 494 mg/dL (75-99)
[2022-01-04 19:04] LABS: Glucose,Whole Blood 432 mg/dL (75-99)
[2022-01-04 19:32] LABS: Glucose,Whole Blood 386 mg/dL (75-99)
[2022-01-04 20:08] LABS: Glucose,Whole Blood 324 mg/dL (75-99)
[2022-01-04 20:34] LABS: Glucose,Whole Blood 223 mg/dL (75-99)
[2022-01-04 22:37] LABS: Glucose,Whole Blood 178 mg/dL (75-99)
[2022-01-05 00:34] LABS: Glucose,Whole Blood 177 mg/dL (75-99)
[2022-01-05 02:32] LABS: Glucose,Whole Blood 186 mg/dL (75-99)
[2022-01-05 04:45] LABS: Glucose,Whole Blood 170 mg/dL (75-99)
[2022-01-05 06:30] LABS: Glucose,Whole Blood 188 mg/dL (75-99)
[2022-01-05] MEDS: PANTOPRAZOLE 40 MG TABLET PO SCH ×2 (06:48→16:49)
[2022-01-05] MEDS: INSULIN DETEMIR (LEVEMIR) 100 UNIT/ML SYR SQ SCH (06:48)
[2022-01-05] MEDS: ALBUTEROL HFA INHALER INHALATION PRN ×2 (08:23→20:04)
[2022-01-05] MEDS: SYMBICORT 160-4.5 MCG INHALER INHALATION SCH ×2 (08:23→20:04)
[2022-01-05] MEDS: ENOXAPARIN 40 MG/0.4 ML SYRINGE SQ SCH (09:06)
[2022-01-05] MEDS: CHOLECALCIFEROL 25 MCG (1000 IU) TABLET PO SCH (09:06)
[2022-01-05] MEDS: dexAMETHasone 2 MG TAB PO SCH (09:06)
[2022-01-05] MEDS: ASPIRIN 81 MG PO SCH (09:07)
[2022-01-05] MEDS: CLOPIDOGREL 75 MG TAB PO SCH (09:07)
[2022-01-05] MEDS: ASCORBIC ACID 500 MG TAB PO SCH (09:07)
[2022-01-05] MEDS: ZINC SULFATE 220 MG CAP PO SCH (09:07)
--- NOTE | 2022-01-05 10:23 | P.PN ---
Subjective This is a pleasant 71 years old female with past medical history of Asthma, Coronary Artery Disease, Heart Failure, COPD, CVA/TIA, Dementia, Diabetes Mellitus, Hyperlipidemia, Hypertension, Syncope, , IDDM type II, neuropathy bilateral feet, 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, R caratid artery disease, valvular disease, pulmonary htn, bronchitis, home oxygen prn, poor vision/pt cannot recall reason, ESBL UTI,CAD s/p Coronary Bypass/CABG, Heart Catheterization With Stent Patient was recently discharged from hospital for UTI and covid, patient was discharged for-12/15 for UTI and hyperglycemia. She did not need antibiotic upon discharge at that time. She presents because of dyspnea for about one week, and was gradually getting wo rse associated with cough and yellowish phlegm and central chest pain with coughing. Also patient has diarrhea about twice per day with no blood, vomited twice yesterday with no blood. Patient is afebrile, heart rate in 60s, blood pressure 168/74, she is saturating 96% on room air but she is slightly tachypneic with a rate around 20-24 CBC showing WBC of 11 which is slightly elevated, rest of CBC is unremarkable. Sodium 135, creatinine 1.0. Glucose was elevated on admission more than 600, currently contracted above 200.(200-250). Her glucose on initial admission was 917 EKG showing normal sinus rhythm at [address]-T changes Urine analysis showing glucosuria and 1+ protein. Acetone is negative Echocardiogram on 12/13/2021:ejection fraction 55-60%. 01/04/2022 Temp with bilateral Covid pneumonia, she still short of breath with mild improvement. No significant cough. She still has diarrhea. She has good appetite. She is on room air. Vitals are stable. CBC is unremarkable. Creatinine is 1.3. Leukocytosis elevated 399 this morning, we increased his insulin into home dose of 80 units daily. 01/05/2022 Patient continues to improve gradually, she is more awake today, her dyspnea is improving as well. She has good appetite. She still have some loose bowel move ment. Her sugars controlled and we stopped insulin drip and switched to insulin sliding scale. She is continued on dexamethasone 4 mg and vitamin C, D and Z. Repeat labs from today are pending. Possible discharge in 24-48 hours if she keeps improvement PT/OT recommended home health care which is ordered Objective - Vital Signs Vital signs: Vital Signs Temp 98.1 F 01/05/22 04:00 Pulse 56 L 01/05/22 04:00 Resp 18 01/05/22 04:00 BP 167/72 01/05/22 04:00 Pulse Ox 99 01/05/22 04:00 Intake & Output 01/04/22 01/05/22 01/05/22 18:59 06:59 18:59 Intake Total 225.0 117.735 Output Total 400 Balance 225.0 -282.265 Weight 105.5 kg Intake: IV 10 0.9 10 Intake, IV Titration 45.0 107.735 Amount Insulin Regular 100 unit 45.0 107.735 In Sodium Chloride 0.9% 100 ml @ Titrate IV .Q0M [facility] Rx#:[id number] Oral 180 Output: Urine 400 Other: Voiding Method Bedside Commode # Voids 1 - Exam -GENERAL: The patient is alert and oriented x3, not in any acute distress.Obese HEENT: Pupils are round and equally reacting to light. EOMI. No scleral icterus. No conjunctival pallor. Normocephalic, atraumatic. No pharyngeal erythema. No thyromegaly. CARDIOVASCULAR: S1 and S2 present. No murmurs, rubs, or gallops. -PULMONARY: Chest is clear to auscultation,Patient is mildly tachypneic with bilateral expiratory wheezing. No crackles ABDOMEN: Soft, nontender, nondistended, normoactive bowel sounds. No palpable organomegaly. MUSCULOSKELETAL: No joint swelling or deformity. EXTREMITIES: No cyanosis, clubbing, or pedal edema. NEUROLOGICAL: Gross neurological examination did not reveal any focal deficits. SKIN: No rashes. No petechiae - Labs CBC & Chem 7: 01/04/22 03:32 01/04/22 12:16 Labs: Abnormal Lab Results - Last 24 Hours (Table) 01/04/22 01/04/22 01/04/22 Range/Units 11:29 11:30 11:37 Glucose (74-99) mg/dL POC Glucose (mg/dL) >600 H >600 H >600 H (75-99) mg/dL 01/04/22 01/04/22 01/04/22 Range/Units 12:16 14:28 16:00 Glucose 709 H* (74-99) mg/dL POC Glucose (mg/dL) >600 H >600 H (75-99) mg/dL 01/04/22 01/04/22 01/04/22 Range/Units 16:59 17:32 18:06 Glucose (74-99) mg/dL POC Glucose (mg/dL) >600 H >600 H 510 H (75-99) mg/dL 01/04/22 01/04/22 01/04/22 Range/Units 18:41 19:03 19:31 Glucose (74-99) mg/dL POC Glucose (mg/dL) 494 H 432 H 386 H (75-99) mg/dL 01/04/22 01/04/22 01/04/22 Range/Units 20:06 20:32 22:35 Glucose (74-99) mg/dL POC Glucose (mg/dL) 324 H 223 H 178 H (75-99) mg/dL 01/05/22 01/05/22 01/05/22 Range/Units 00:33 02:31 04:43 Glucose (74-99) mg/dL POC Glucose (mg/dL) 177 H 186 H 170 H (75-99) mg/dL 01/05/22 Range/Units 06:28 Glucose (74-99) mg/dL POC Glucose (mg/dL) 188 H (75-99) mg/dL Assessment and Plan Assessment: Possible Bilateral Covid pneumonia versus CHF Possible acute on chronic diastolic CHF Type 2 diabetes mellitus, with hyperglycemia present on admission Dehydration and mild acute kidney injury, improving Recent history of UTI and call the Diabetic neuropathy Hypertension Hyperlipidemia History of coronary artery disease, s/p Coronary Bypass/CABG, Heart Catheterization With Stent Chronic heart failure, no acute exacerbation COPD, no acute exacerbation History of CVA with no residual weakness Memory problems/dementia History of syncope History of pulmonary hypertension History of ESBL UTI Obesity with BMI of 37.7 Plan: This is a pleasant 71 years old female who presents with hyperglycemic nonketotic state Saw the patient on vitamin C, D and zinc. Pulmonary consult Lasix 1 Continue with insulin drip and switched to insulin sliding scale and Levemir once patient is able to eat. Labs and medication were reviewed.. Continue same treatment. Continue with symptomatic treatment. Resume home medication. Monitor lytes and vitals. DVT and GI prophylaxis. Further recommendations depends on the clinical course of the patient DVT prophylaxis: Subcutaneous Lovenox GI Prophylaxis: Pepcid PT/OT: Pending Prognosis is guarded
[2022-01-05 11:45] LABS: Basophils # (A) 0.1 k/uL (0-0.2); Basophils % (A) 1 %; Eosinophils # (A) 0.1 k/uL (0-0.7); Eosinophils % (A) 0 %; HCT 41.3 % (34.0-46.0); HGB 13.3 gm/dL (11.4-16.0); Lymphocytes # (A) 1.6 k/uL (1.0-4.8); Lymphocytes % (A) 8 %; MCH 32.3 pg (25.0-35.0); MCHC 32.3 g/dL (31.0-37.0); Mean Platelet Volume 8.1; Monocytes # (A) 1.1 k/uL (0-1.0); Monocytes % (A) 5 %; Neutrophils # (A) 16.6 k/uL (1.3-7.7); Neutrophils % (A) 85 %; Platelet Count 418 k/uL (150-450); RBC 4.13 m/uL (3.80-5.40); RDW 11.9 % (11.5-15.5); WBC 19.6 k/uL (3.8-10.6)
[2022-01-05 12:09] LABS: Magnesium 2.2 mg/dL (1.6-2.3); Potassium 4.5 mmol/L (3.5-5.1)
[2022-01-05 12:29] LABS: Glucose,Whole Blood 290 mg/dL (75-99)
[2022-01-05] MEDS: INSULIN ASPART (NovoLOG) 100 UNIT/ML VIAL SQ SCH ×3 (12:31→21:17)
--- NOTE | 2022-01-05 12:36 | P.PN ---
Subjective Progress Note Date: 01/05/22 Principal diagnosis: Coronavirus infection 71-year-old female patient with past medical history of COPD on home oxygen with baseline FEV1 of 54% of predicted, hypertension, hyperlipidemia, previous history of RI, coronary artery disease with stenting and bypass grafting in 2017, diabetes mellitus type 2, former smoker, and previous history of CVA, patient follows with Dr. Monique in the pulmonary clinic. Patient presented to the emergency department on 01/02/2022 with 2 week history of weakness, shortness of breath, cough and fever. Patient was found to be positive for coarse 19 in the emergency department. She has not been vaccinated against COVID-19. Patient had a blood sugar of over 600 on presentation today emergency department and was also complaining of polydipsia and polyuria. According to the patient she had been compliant with her insulin. Chest x-ray in the emergency department showed interstitial pneumonitis. Dressing blood work has been reviewed showing white blood cell count of 11, hemoglobin of 13.6, lymphocytes of 0.6, neutrophils of 9.6, sodium of 127, potassium is 4.7, chloride is 93, CO2 is 21, anion gap was 13, BUN is 40, creatinine is 1.29, serum glucose was 917, patient was started on insulin infusion, and IV fluids with D5 half-normal saline with 20 of potassium at a rate of 150 ML per hour. Serum acetone was negative 2. Urinalysis showed 1+ protein, 4+ glucose, small amount of blood, but no clear evidence of infection, urine osmolality was 524. LDH was 734, troponin was 0.030, CRP is less than 0.5, proBNP was 2340. Patient is currently on 3 L of oxygen pulse ox is 96%, she is afebrile, she appears weak, fatigued, but does not appear to be in any acute distress. No nausea or vomiting no diarrhea. She was started on inhaled bronchodilators, she did receive a dose of IV Lasix, she was started on prophylactic anticoagulation with Lovenox. On 01/04/2022 patient seen in follow-up on medical surgical floor. She is breathing comfortably, she is on room air, pulse ox is 94%, she sits up on the bed, does not appear to be in any acute respiratory distress, no complaint of chest pain, her cough is improving. No hemoptysis. No fever or chills, room air pulse ox is 97%, vital signs have been stable. Patient was found to be COVID-19 positive. However she was sick for greater than 2 weeks, she was outside the window for Remdesivir or monoclonal antibodies. She is currently on Decadron 6 mg daily, multivitamins, inhaled bronchodilators, and prophylactic anticoagulation. She remains on insulin infusion, long-acting basal insulin has been added in the form of Levemir 80 units in the morning. She still remains quite hyperglycemic with blood sugar in the 700s. Primary care service is managing the insulin drip. Today's labs have been reviewed, with blood cell count is 9.8, hemoglobin of 12.1, sodium is 132, the rest of electrolytes and renal profile were unremarkable. TYLENOL level was negative at 0.06. Progress note dated 01/05/2022. The patient appears to be doing relatively well. She seen in room 371. She did test positive for coronavirus. She initially was admitted with hyperglycemia, hyperosmolar coma. The patient was initially on fluids and an insulin drip. Has been discontinued. The patient could be discharged home and she tells me that she does have a daughter at home, to help her. Currently, her glucose is 181. The patient's on room air. She's not receiving any IV fluids. Objective - Vital Signs Vital signs: Vital Signs Temp 98.0 F 01/05/22 08:00 Pulse 69 01/05/22 08:00 Resp 18 01/05/22 08:00 BP 136/74 01/05/22 08:00 Pulse Ox 95 01/05/22 08:00 Intake & Output 01/04/22 01/05/22 01/05/22 18:59 06:59 18:59 Intake Total 225.0 117.735 Output Total 400 Balance 225.0 -282.265 Weight 105.5 kg Intake: IV 10 0.9 10 Intake, IV Titration 45.0 107.735 Amount Insulin Regular 100 unit 45.0 107.735 In Sodium Chloride 0.9% 100 ml @ Titrate IV .Q0M [facility] Rx#:[id number] Oral 180 Output: Urine 400 Other: Voiding Method Bedside Commode Bedside Commode # Voids 1 - Exam No acute distress, oriented 3. Currently on room air. No respiratory difficulty or distress. HEENT examination is grossly unremarkable. Neck supple. Full range of motion. No adenopathy thyromegaly or neck vein distention. Cardiovascular examination reveals regular rhythm rate. S1-S2 normal. No S3 or S4. No discernible murmur noted. Heart rate 69 bpm. Lungs reveal mild scattered rhonchi. No wheezes. No crackles. Saturations are 95%. Abdomen soft bowel sounds are heard. No masses or tenderness. Extremities are intact. No cyanosis clubbing or edema. Skin is without rash or lesion. Neurologic examination is brief but nonfocal. - Labs CBC & Chem 7: 01/05/22 11:01 01/05/22 11:01 Labs: Abnormal Lab Results - Last 24 Hours (Table) 01/04/22 01/04/22 01/04/22 Range/Units 12:16 14:28 16:00 WBC (3.8-10.6) k/uL Neutrophils # (1.3-7.7) k/uL Monocytes # (0-1.0) k/uL Sodium (137-145) mmol/L BUN (7-17) mg/dL Creatinine (0.52-1.04) mg/dL Glucose 709 H* (74-99) mg/dL POC Glucose (mg/dL) >600 H >600 H (75-99) mg/dL 01/04/22 01/04/22 01/04/22 Range/Units 16:59 17:32 18:06 WBC (3.8-10.6) k/uL Neutrophils # (1.3-7.7) k/uL Monocytes # (0-1.0) k/uL Sodium (137-145) mmol/L BUN (7-17) mg/dL Creatinine (0.52-1.04) mg/dL Glucose (74-99) mg/dL POC Glucose (mg/dL) >600 H >600 H 510 H (75-99) mg/dL 01/04/22 01/04/22 01/04/22 Range/Units 18:41 19:03 19:31 WBC (3.8-10.6) k/uL Neutrophils # (1.3-7.7) k/uL Monocytes # (0-1.0) k/uL Sodium (137-145) mmol/L BUN (7-17) mg/dL Creatinine (0.52-1.04) mg/dL Glucose (74-99) mg/dL POC Glucose (mg/dL) 494 H 432 H 386 H (75-99) mg/dL 01/04/22 01/04/22 01/04/22 Range/Units 20:06 20:32 22:35 WBC (3.8-10.6) k/uL Neutrophils # (1.3-7.7) k/uL Monocytes # (0-1.0) k/uL Sodium (137-145) mmol/L BUN (7-17) mg/dL Creatinine (0.52-1.04) mg/dL Glucose (74-99) mg/dL POC Glucose (mg/dL) 324 H 223 H 178 H (75-99) mg/dL 01/05/22 01/05/22 01/05/22 Range/Units 00:33 02:31 04:43 WBC (3.8-10.6) k/uL Neutrophils # (1.3-7.7) k/uL Monocytes # (0-1.0) k/uL Sodium (137-145) mmol/L BUN (7-17) mg/dL Creatinine (0.52-1.04) mg/dL Glucose (74-99) mg/dL POC Glucose (mg/dL) 177 H 186 H 170 H (75-99) mg/dL 01/05/22 01/05/22 01/05/22 Range/Units 06:28 11:01 11:01 WBC 19.6 H (3.8-10.6) k/uL Neutrophils # 16.6 H (1.3-7.7) k/uL Monocytes # 1.1 H (0-1.0) k/uL Sodium 136 L (137-145) mmol/L BUN 40 H (7-17) mg/dL Creatinine 1.05 H (0.52-1.04) mg/dL Glucose 245 H (74-99) mg/dL POC Glucose (mg/dL) 188 H (75-99) mg/dL 01/05/22 Range/Units 12:27 WBC (3.8-10.6) k/uL Neutrophils # (1.3-7.7) k/uL Monocytes # (0-1.0) k/uL Sodium (137-145) mmol/L BUN (7-17) mg/dL Creatinine (0.52-1.04) mg/dL Glucose (74-99) mg/dL POC Glucose (mg/dL) 290 H (75-99) mg/dL Assessment and Plan Assessment: #1. Acute COVID-19 infection, with possibility of COVID-19 pneumonia. Patient came in with two-week history of weakness, fever, cough, and shortness of tru ath. Patient is not vaccinated against COVID-19. Patient is outside the window for Remdesivir, Paxlovid, or monoclonal antibody. #2. Acute hyperosmolar hyperglycemic syndrome. #3. Hyponatremia, sodium of 127, likely related to dehydration and hypovolemia. #4. History of severe COPD, with FEV1 of 54% of predicted on home oxygen. #5. History of obesity with BMI of 37.7 kg/m. #6. Previous history of RI. #7. Hypertension. #8. Hyperlipidemia. #9. Previous history of pneumonia. #10. Diabetes mellitus type 2. #11. Degeneration of lumbar anterior vertebral disc. #12. Steroid-induced hyperglycemia. Plan: Plan dated 01/05/2022. The patient appears to be progressing very nicely. When I went into the room, the patient was only on room air. She was not requiring any IV fluids. She was not short of breath. She was placed on vitamin C, vitamin D3, and zinc. In addition, she is on Symbicort, Decadron, and Lovenox. Additional recommendations and suggestions are forthcoming. The patient could be considered for possible discharge. Upon discharge, the patient could be continued on vitamins, and 10 days total of Decadron. Time with Patient: Less than 30
[2022-01-05] MEDS: ACETAMINOPHEN TAB 325 MG TAB PO PRN (15:20)
[2022-01-05 16:09] LABS: Glucose,Whole Blood 413 mg/dL (75-99)
[2022-01-05] MEDS ORDERED: INSULIN DETEMIR (LEVEMIR) 100 UNIT/ML SYR SQ SCH (19:30)
[2022-01-05 20:26] LABS: Glucose,Whole Blood 358 mg/dL (75-99)
[2022-01-05] MEDS: VALSARTAN 80 MG TAB PO SCH (21:17)
[2022-01-05] MEDS: ATORVASTATIN 80 MG TAB PO SCH (21:17)
[2022-01-05] MEDS: METOPROLOL SUCCINATE (ER) 50 MG TAB.ER.24H PO SCH (21:17)
[2022-01-06 06:04] LABS: Glucose,Whole Blood 323 mg/dL (75-99)
[2022-01-06 06:39] LABS: Glucose,Whole Blood 328 mg/dL (75-99)
[2022-01-06] MEDS: INSULIN DETEMIR (LEVEMIR) 100 UNIT/ML SYR SQ SCH (06:41)
[2022-01-06] MEDS: PANTOPRAZOLE 40 MG TABLET PO SCH (06:42)
[2022-01-06] MEDS: INSULIN ASPART (NovoLOG) 100 UNIT/ML VIAL SQ SCH ×2 (06:42→12:16)
[2022-01-06] MEDS ORDERED: INSULIN ASPART (NovoLOG) 100 UNIT/ML VIAL SQ SCH ×2 (07:30→12:30)
[2022-01-06] MEDS: SYMBICORT 160-4.5 MCG INHALER INHALATION SCH (07:44)
[2022-01-06] MEDS: ALBUTEROL HFA INHALER INHALATION PRN (07:45)
[2022-01-06 08:50] VITALS: RESP 18
[2022-01-06 08:52] LABS: Basophils # (A) 0.1 k/uL (0-0.2); Basophils % (A) 0 %; Eosinophils # (A) 0.1 k/uL (0-0.7); Eosinophils % (A) 0 %; HCT 41.7 % (34.0-46.0); Lymphocytes # (A) 1.6 k/uL (1.0-4.8); Lymphocytes % (A) 7 %; MCH 31.5 pg (25.0-35.0); MCHC 31.1 g/dL (31.0-37.0); MCV 101.1 fL (80.0-100.0); Monocytes # (A) 0.9 k/uL (0-1.0); Monocytes % (A) 4 %; Neutrophils # (A) 19.1 k/uL (1.3-7.7); Neutrophils % (A) 87 %; Platelet Count 443 k/uL (150-450); RBC 4.13 m/uL (3.80-5.40); RDW 11.8 % (11.5-15.5)
[2022-01-06] MEDS: ASPIRIN 81 MG PO SCH (10:06)
[2022-01-06] MEDS: dexAMETHasone 2 MG TAB PO SCH (10:06)
[2022-01-06] MEDS: CLOPIDOGREL 75 MG TAB PO SCH (10:06)
[2022-01-06] MEDS: CHOLECALCIFEROL 25 MCG (1000 IU) TABLET PO SCH (10:06)
[2022-01-06] MEDS: ASCORBIC ACID 500 MG TAB PO SCH (10:06)
[2022-01-06] MEDS: ZINC SULFATE 220 MG CAP PO SCH (10:06)
[2022-01-06] MEDS: ENOXAPARIN 40 MG/0.4 ML SYRINGE SQ SCH (10:07)
[2022-01-06] MEDS ORDERED: amLODIPine 5 MG TAB PO SCH (11:00)
[2022-01-06 12:09] LABS: Glucose,Whole Blood 363 mg/dL (75-99)
--- NOTE | 2022-01-06 12:18 | P.PN ---
Subjective Progress Note Date: 01/06/22 Principal diagnosis: Coronavirus infection 71-year-old female patient with past medical history of COPD on home oxygen with baseline FEV1 of 54% of predicted, hypertension, hyperlipidemia, previous history of [place], coronary artery disease with stenting and bypass grafting in 2017, diabetes mellitus type 2, former smoker, and previous history of CVA, patient follows with Dr. Monique in the pulmonary clinic. Patient presented to the emergency department on 01/02/2022 with 2 week history of weakness, shortness of breath, cough and fever. Patient was found to be positive for coarse 19 in the emergency department. She has not been vaccinated against COVID-19. Patient had a blood sugar of over 600 on presentation today emergency department and was also complaining of polydipsia and polyuria. According to the patient she had been compliant with her insulin. Chest x-ray in the emergency department showed interstitial pneumonitis. Dressing blood work has been reviewed showing white blood cell count of 11, hemoglobin of 13.6, lymphocytes of 0.6, neutrophils of 9.6, sodium of 127, potassium is 4.7, chloride is 93, CO2 is 21, anion gap was 13, BUN is 40, creatinine is 1.29, serum glucose was 917, patient was started on insulin infusion, and IV fluids with D5 half-normal saline with 20 of potassium at a rate of 150 ML per hour. Serum acetone was negative 2. Urinalysis showed 1+ protein, 4+ glucose, small amount of blood, but no clear evidence of infection, urine osmolality was 524. LDH was 734, troponin was 0.030, CRP is less than 0.5, proBNP was 2340. Patient is currently on 3 L of oxygen pulse ox is 96%, she is afebrile, she appears weak, fatigued, but does not appear to be in any acute distress. No nausea or vomiting no diarrhea. She was started on inhaled bronchodilators, she did receive a dose of IV Lasix, she was started on prophylactic anticoagulation with Lovenox. On 01/04/2022 patient seen in follow-up on medical surgical floor. She is breathing comfortably, she is on room air, pulse ox is 94%, she sits up on the bed, does not appear to be in any acute respiratory distress, no complaint of chest pain, her cough is improving. No hemoptysis. No fever or chills, room air pulse ox is 97%, vital signs have been stable. Patient was found to be COVID-19 positive. However she was sick for greater than 2 weeks, she was outside the window for Remdesivir or monoclonal antibodies. She is currently on Decadron 6 mg daily, multivitamins, inhaled bronchodilators, and prophylactic anticoagulation. She remains on insulin infusion, long-acting basal insulin has been added in the form of Levemir 80 units in the morning. She still remains quite hyperglycemic with blood sugar in the 700s. Primary care service is managing the insulin drip. Today's labs have been reviewed, with blood cell count is 9.8, hemoglobin of 12.1, sodium is 132, the rest of electrolytes and renal profile were unremarkable. TYLENOL level was negative at 0.06. Progress note dated 01/05/2022. The patient appears to be doing relatively well. She seen in room 371. She did test positive for coronavirus. She initially was admitted with hyperglycemia, hyperosmolar coma. The patient was initially on fluids and an insulin drip. Has been discontinued. The patient could be discharged home and she tells me that she does have a daughter at home, to help her. Currently, her glucose is 181. The patient's on room air. She's not receiving any IV fluids. Progress note dated 01/06/2022. This is a 71-year-old female again seen in room 371. She was initially admitted with a diagnosis of hyperosmolar, hyperglycemic syndrome. She did test positive for coronavirus. White count is 22, hemoglobin 13, hematocrit 41.7, platelet count 443,000. The patient is not requiring any oxygen therapy, or IV fluids. The patient is likely to be discharged either today or early tomorrow. Objective - Vital Signs Vital signs: Vital Signs Temp 97.6 F 01/06/22 08:00 Pulse 53 L 01/06/22 08:00 Resp 18 01/06/22 08:00 BP 178/75 01/06/22 08:00 Pulse Ox 93 L 01/06/22 08:00 Intake & Output 01/05/22 01/06/22 01/06/22 18:59 06:59 18:59 Intake Total 480 970 Output Total 600 Balance -120 970 Intake: Oral 480 970 Output: Urine 600 Other: Voiding Method Bedside Commode Bedside Commode # Voids 2 - Exam No acute distress, oriented 3. Currently on room air. No respiratory difficulty or distress. HEENT examination is grossly unremarkable. Neck supple. Full range of motion. No adenopathy thyromegaly or neck vein distention. Cardiovascular examination reveals regular rhythm rate. S1-S2 normal. No S3 or S4. No discernible murmur noted. Heart rate 53 bpm. Lungs reveal mild scattered rhonchi. No wheezes. No crackles. Saturations are 93 %. Abdomen soft bowel sounds are heard. No masses or tenderness. Extremities are intact. No cyanosis clubbing or edema. Skin is without rash or lesion. Neurologic examination is brief but nonfocal. - Labs CBC & Chem 7: 01/06/22 08:03 01/05/22 11:01 Labs: Abnormal Lab Results - Last 24 Hours (Table) 01/05/22 01/05/22 01/05/22 Range/Units 12:27 16:07 20:25 WBC (3.8-10.6) k/uL MCV (80.0-100.0) fL Neutrophils # (1.3-7.7) k/uL POC Glucose (mg/dL) 290 H 413 H 358 H (75-99) mg/dL 01/06/22 01/06/22 01/06/22 Range/Units 06:03 06:38 08:03 WBC 22.0 H (3.8-10.6) k/uL MCV 101.1 H (80.0-100.0) fL Neutrophils # 19.1 H (1.3-7.7) k/uL POC Glucose (mg/dL) 323 H 328 H (75-99) mg/dL 01/06/22 Range/Units 12:07 WBC (3.8-10.6) k/uL MCV (80.0-100.0) fL Neutrophils # (1.3-7.7) k/uL POC Glucose (mg/dL) 363 H (75-99) mg/dL Assessment and Plan Assessment: #1. Acute COVID-19 infection, with possibility of COVID-19 pneumonia. Patient came in with two-week history of weakness, fever, cough, and shortness of breath. Patient is not vaccinated against COVID-19. Patient is outside the window for Remdesivir, Paxlovid, or monoclonal antibody. #2. Acute hyperosmolar hyperglycemic syndrome. #3. Hyponatremia, sodium of 127, likely related to dehydration and hypovolemia. #4. History of severe COPD, with FEV1 of 54% of predicted on home oxygen. #5. History of obesity with BMI of 37.7 kg/m. #6. Previous history of [place]. #7. Hypertension. #8. Hyperlipidemia. #9. Previous history of pneumonia. #10. Diabetes mellitus type 2. #11. Degeneration of lumbar anterior vertebral disc. #12. Steroid-induced hyperglycemia. Plan: Plan dated 01/05/2022. The patient appears to be progressing very nicely. When I went into the room, the patient was only on room air. She was not requiring any IV fluids. She was not short of breath. She was placed on vitamin C, vitamin D3, and zinc. In addition, she is on Symbicort, Decadron, and Lovenox. Additional recommendations and suggestions are forthcoming. The patient could be considered for possible discharge. Upon discharge, the patient could be continued on vitamins, and 10 days total of Decadron. Plan dated 01/06/2022. The patient's doing well. The plan is for possible discharge soon. Labs are reviewed. Medications are reviewed. X-rays are reviewed. The patient is not requiring any supplemental oxygen, or IV fluids. Prognosis is guarded. She was receiving vitamin C, D3, and zinc. In addition, she is on Symbicort, Decadron, and Lovenox. She should complete a full 10 days of Decadron, 6 mg. We will continue to follow as needed. Prognosis is guarded. Time with Patient: Less than 30
[2022-01-06 12:28] VITALS: BP 187/77; PULSE 88; TEMP 98.2
[2022-01-06 15:27] LABS: Glucose,Whole Blood 264 mg/dL (75-99)
--- NOTE | 2022-01-06 22:55 | P.DS ---
Providers Date of admission: 01/02/22 23:12 Attending physician: Irwin Arredondo Consults: 01/03/22 10:13 Consult Physician Urgent Consulting Provider: Johnathon Maciel Consult Reason/Comments: covid pna Do you want consulting provider notified?: Yes Primary care physician: Elvira Gonzales Hospital Course: Diagnoses: Acute Bilateral Covid pneumonia Possible acute on chronic diastolic CHF Type 2 diabetes mellitus, with hyperglycemia present on admission Dehydration and mild acute kidney injury, improving Recent history of UTI and call the Diabetic neuropathy Hypertension Hyperlipidemia History of coronary artery disease, s/p Coronary Bypass/CABG, Heart Catheterization With Stent Chronic heart failure, no acute exacerbation COPD, no acute exacerbation History of CVA with no residual weakness Memory problems/dementia History of syncope History of pulmonary hypertension History of ESBL UTI Obesity with BMI of 37.7 Hospital course: This is a pleasant 71 years old female with past medical history of Asthma, Coronary Artery Disease, Heart Failure, COPD, CVA/TIA, Dementia, Diabetes Mellitus, Hyperlipidemia, Hypertension, Syncope, , IDDM type II, neuropathy bilateral feet, 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, R caratid artery disease, valvular disease, pulmonary htn, bronchitis, home oxygen prn, poor vision/pt cannot recall reason, ESBL UTI,CAD s/p Coronary Bypass/CABG, Heart Catheterization With Stent Patient was recently discharged from hospital for UTI and covid, patient was discharged for-12/15 for UTI and hyperglycemia. She did not need antibiotic upon discharge at that time. She presents because of dyspnea for about one week, and was gradually getting worse associated with cough and yellowish phlegm and central chest pain with coughing. Patient was found to have bilateral Covid pneumonia and she's been evaluated by family psychologist and treated with dexamethasone, vitamin C, D and zinc. On admission her glucose was significantly elevated more than 900, noncompliance with medication was suspected. Patient also started on insulin home dose of 80 units and 15 units with meals of NovoLog. Because she's been on a steroid extracted units of Levemir is been added. Importance of monitoring glucose explained for the patient and her daughter over the phone I called Mrs. Ruiz on [phone] and I discussed the problems and management plan and the need for close monitoring with per meters and instructions, see discharge instructions for more details. She verbalized understanding and acceptance. Patient's symptoms significantly improved and she is back close to her baseline. She uses oxygen at home. Patient asked started to give the same oxygen and follow-up with family psychologist Dr. Maciel. On the day of discharge she denies chest pain or dyspnea, no change in urine or bowel habits. No fever. Patient was cleared for discharge by family psychologist. Problems and management plan were discussed with the patient and he verbalized understanding and acceptance Patient was found stable and can be discharged home however he needs follow-up as an outpatient. Patient was instructed to follow up with PCP within one week and patient agrees Case discussed with family service caseworker, patient has all needs including glucometer Also patient referred to explosive technician as an outpatient as her hemoglobin A1c was more than 11%. She was referred to Dr. Walter or Dr. Ibrahim in 1-2 weeks and she agrees to call and make her own appointment Physical exam Gen: patient is a AAOx3, no distress CVS: S1-S2, RRR, no murmur Lungs: B/L CTA, no wheezing Abdomen: soft, no distention, no tenderness, positive bowel sounds Extremity: no leg edema or induration Time spent more than 35 minutes Patient Condition at Discharge: Serious Plan - Discharge Summary Discharge Rx Participant: Yes New Discharge Prescriptions: New dexAMETHasone ORAL [Hexadrol] 4 mg PO DAILY 6 Days #6 tab Insulin Detemir (Levemir) [Levemir] 80 unit SQ DAILY@0700 ml Insulin Detemir (Levemir) [Levemir] 10 unit SQ HS 6 Days #10 ml Zinc Sulfate [Orazinc] 220 mg PO DAILY #30 cap Ascorbic Acid [Vitamin C] 1,000 mg PO DAILY #60 tab Cholecalciferol [Vitamin D3 (25 Mcg = 1000 Iu)] 50 mcg PO DAILY #60 tablet amLODIPine [Norvasc] 5 mg PO DAILY #30 tab Continue Metoprolol Succinate [Toprol XL] 50 mg PO HS Furosemide [Lasix] 20 mg PO DAILY PRN PRN Reason: Edema hydrOXYzine HCL [Atarax] 25 mg PO TID PRN PRN Reason: Itching/anxiety Atorvastatin [Lipitor] 80 mg PO HS Insulin Lispro [humaLOG Kwikpen] 15 units SQ AC-TID traMADol HCL [Ultram] 50 mg PO BID PRN PRN Reason: Pain Valsartan 80 mg PO HS Clopidogrel Bisulfate [Plavix] 75 mg PO DAILY Aspirin EC [Ecotrin Low Dose] 81 mg PO DAILY Insulin Glargine,Hum.rec.anlog [Lantus Solostar Pen] 80 unit SQ HS Pantoprazole [Protonix] 40 mg PO AC-BID #60 tab Acetaminophen Tab [Tylenol] 650 mg PO Q6HR PRN tab PRN Reason: Mild Pain Or Fever > 100.5 Budesonide-Formot 160-4.5 Mcg [Symbicort 160-4.5 Mcg Inhaler] 2 puff INHALATION RT-BID Ipratropium-Albuterol Nebulize [Duoneb 0.5 mg-3 mg/3 ml Soln] 3 ml INHALATION RT-Q6H PRN PRN Reason: Shortness Of Breath Nirmatrelvir/Ritonavir [Paxlovid Co-Pack (Eua)] 1 dose PO DIRECTED Discontinued methylPREDNISolone [Medrol Dose Pack] See Taper PO DIRECTED Discharge Medication List Metoprolol Succinate [Toprol XL] 50 mg PO HS 08/30/18 [History] Furosemide [Lasix] 20 mg PO DAILY PRN 05/19/20 [History] Atorvastatin [Lipitor] 80 mg PO HS 09/23/20 [History] hydrOXYzine HCL [Atarax] 25 mg PO TID PRN 09/23/20 [History] Insulin Lispro [humaLOG Kwikpen] 15 units SQ AC-TID 11/11/20 [History] traMADol HCL [Ultram] 50 mg PO BID PRN 02/07/21 [History] Budesonide-Formot 160-4.5 Mcg [Symbicort 160-4.5 Mcg Inhaler] 2 puff INHALATION RT-BID 04/12/21 [History] Aspirin EC [Ecotrin Low Dose] 81 mg PO DAILY 12/12/21 [History] Clopidogrel Bisulfate [Plavix] 75 mg PO DAILY 12/12/21 [History] Insulin Glargine,Hum.rec.anlog [Lantus Solostar Pen] 80 unit SQ HS 12/12/21 [History] Valsartan 80 mg PO HS 12/12/21 [History] Acetaminophen Tab [Tylenol] 650 mg PO Q6HR PRN tab 12/15/21 [Rx] Ipratropium-Albuterol Nebulize [Duoneb 0.5 mg-3 mg/3 ml Soln] 3 ml INHALATION RT-Q6H PRN 12/15/21 [History] Pantoprazole [Protonix] 40 mg PO AC-BID #60 tab 12/15/21 [Rx] Nirmatrelvir/Ritonavir [Paxlovid Co-Pack (Eua)] 1 dose PO DIRECTED 01/02/22 [History] Ascorbic Acid [Vitamin C] 1,000 mg PO DAILY #60 tab 01/06/22 [Rx] Cholecalciferol [Vitamin D3 (25 Mcg = 1000 Iu)] 50 mcg PO DAILY #60 tablet 01/06/22 [Rx] Insulin Detemir (Levemir) [Levemir] 10 unit SQ HS 6 Days #10 ml 01/06/22 [Rx] Insulin Detemir (Levemir) [Levemir] 80 unit SQ DAILY@0700 ml 01/06/22 [Rx] Zinc Sulfate [Orazinc] 220 mg PO DAILY #30 cap 01/06/22 [Rx] amLODIPine [Norvasc] 5 mg PO DAILY #30 tab 01/06/22 [Rx] dexAMETHasone ORAL [Hexadrol] 4 mg PO DAILY 6 Days #6 tab 01/06/22 [Rx] Follow up Appointment(s)/Referral(s): Elvira Gonzales MD [Primary Care Provider] - 01/11/22 1:45 pm Dipesh Ibrahim MD [REFERRING] - 1 Week (enodcrinologist,for your diabetes and high glucose ) Johnathon Maciel DO [Doctor of Osteopathic Medicine] - 01/31/22 2:45 pm (appointment with Dr Cony Coon) [facility], [NON-STAFF] - As Needed Carole Walter MD [STAFF PHYSICIAN] - 1 Week (enodcrinologist, for your diabetes and high glucose ) Patient Instructions/Handouts: Coronavirus Disease 2019 (COVID-19), Hyperosmolar Hyperglycemic State (DC), COVID-19 (Coronavirus Disease 2019) (DC) Activity/Diet/Wound Care/Special Instructions: low carbohydrate diet activity is restricted till you see your doctor we recommend to check your glucose 4 times a day , before each meal and at bed time, keep the results in a log book and bring it to your doctor on your appointment date if your glucose is less than 70 or more than 400 then call 911 and come to emergency room please keep wearing your home oxygen 24/7 ie day and night till you see your family psychologist in the office Discharge Disposition: HOME WITH HOME HEALTH SERVICES
[2022-01-07] MEDS ORDERED: INSULIN DETEMIR (LEVEMIR) 100 UNIT/ML SYR SQ SCH ×2 (07:00)
== END 2022-01-06 17:01 | disposition home health service (06) | DRG 177 ==
LOC: EC 19:22 → 2SICU 23:12 → 3SCARD 01-03 09:13 → 4SSUR 01-03 12:44 → 3SCARD 01-04 15:53
PROVIDERS: ADMIT Hospitalist; ATTEND Hospitalist
DX: U07.1 COVID-19 (principal); E11.01 Type 2 diabetes mellitus with hyperosmolarity with coma; J12.82 Pneumonia due to coronavirus disease 2019; I50.33 Acute on chronic diastolic (congestive) heart failure; E87.1 Hypo-osmolality and hyponatremia; N17.9 Acute kidney failure, unspecified; J44.0 Chronic obstructive pulmonary disease with (acute) lower respiratory infection; E11.40 Type 2 diabetes mellitus with diabetic neuropathy, unspecified; E66.9 Obesity, unspecified; E78.5 Hyperlipidemia, unspecified; E86.0 Dehydration; R09.02 Hypoxemia; E86.1 Hypovolemia; F40.240 Claustrophobia; I27.20 Pulmonary hypertension, unspecified; I11.0 Hypertensive heart disease with heart failure; F03.90 Unspecified dementia, unspecified severity, without behavioral disturbance, psychotic disturbance, mood disturbance, and anxiety; M51.36 Other intervertebral disc degeneration, lumbar region; T38.0X5A Adverse effect of glucocorticoids and synthetic analogues, initial encounter; T38.3X6A Underdosing of insulin and oral hypoglycemic [antidiabetic] drugs, initial encounter; I25.10 Atherosclerotic heart disease of native coronary artery without angina pectoris; Z68.37 Body mass index [BMI] 37.0-37.9, adult; Z28.310 Unvaccinated for COVID-19; Z95.5 Presence of coronary angioplasty implant and graft; Z95.1 Presence of aortocoronary bypass graft; I25.2 Old myocardial infarction; Z98.42 Cataract extraction status, left eye; Z98.41 Cataract extraction status, right eye; Z99.81 Dependence on supplemental oxygen; Z87.440 Personal history of urinary (tract) infections; Z87.01 Personal history of pneumonia (recurrent); Z87.891 Personal history of nicotine dependence; Z91.14 Patient's other noncompliance with medication regimen; Z86.73 Personal history of transient ischemic attack (TIA), and cerebral infarction without residual deficits; Z79.02 Long term (current) use of antithrombotics/antiplatelets; Z79.4 Long term (current) use of insulin; Z79.51 Long term (current) use of inhaled steroids; Z79.82 Long term (current) use of aspirin; Z79.899 Other long term (current) drug therapy; Z81.8 Family history of other mental and behavioral disorders; Z82.49 Family history of ischemic heart disease and other diseases of the circulatory system
CPT/HCPCS: 36415; 71046; 80048; 80051; 80053; 81001; 82009; 82565; 82607; 82746; 82803; 82947; 83036; 83615; 83735; 83880; 83930; 83935; 84100; 84145; 84484; 84520; 85025; 85379; 85610; 85730; 86140; 87502; 87635; 93005; 94640; 96361; 96365; 96366; 96372; 96375; 99285

== ENCOUNTER 2022-01-18 20:30 | Inpatient (IN) | payer MEDICARE ==
[2022-01-18] MEDS ORDERED: predniSONE 20 MG TAB PO STA (21:44)
[2022-01-18] MEDS ORDERED: ALBUTEROL NEBULIZED 2.5 MG/3 ML INHALATION STA (21:44)
[2022-01-18] MEDS ORDERED: IPRATROPIUM 0.5 MG/2.5 ML NEBU INHALATION STA (21:44)
--- NOTE | 2022-01-18 21:48 | ED ---
General Adult HPI - General Chief complaint: Altered Mental Status Stated complaint: Difficulty Breathing, Altered Mental Status Time Seen by Provider: 01/18/22 21:13 Source: family, EMS Mode of arrival: EMS Limitations: altered mental status - History of Present Illness Initial comments: Patient is a 71-year-old woman who presents to triage note sent in for altered mental status. When I interview the patient, she states that her breathing has been getting worse over about the last 4 weeks. She does state she has some underlying COPD. She states she is on home oxygen but it hasn't been helping. She denies a change in her cough. No chest pain. She is not aware of having any fevers. No abdominal pain. No change in urination or bowel movements. No leg pain or swelling. Onset/Timin -: week(s) Severity scale (1-10): 0 Consistency: constant Improves with: none Worsens with: none Associated Symptoms: shortness of breath Treatments Prior to Arrival: none - Related Data Home Medications Medication Instructions Recorded Confirmed Metoprolol Succinate [Toprol XL] 50 mg PO HS 08/30/18 01/19/22 Furosemide [Lasix] 20 mg PO DAILY PRN 05/19/20 01/19/22 Atorvastatin [Lipitor] 80 mg PO HS 09/23/20 01/19/22 hydrOXYzine HCL [Atarax] 25 mg PO TID PRN 09/23/20 01/19/22 Insulin Lispro [humaLOG Kwikpen] 15 units SQ AC-TID 11/11/20 01/19/22 traMADol HCL [Ultram] 50 mg PO BID PRN 02/07/21 01/19/22 Budesonide-Formot 160-4.5 Mcg 2 puff INHALATION RT-BID 04/12/21 01/19/22 [Symbicort 160-4.5 Mcg Inhaler] Aspirin EC [Ecotrin Low Dose] 81 mg PO DAILY 12/12/21 01/19/22 Clopidogrel Bisulfate [Plavix] 75 mg PO DAILY 12/12/21 01/19/22 Insulin Glargine,Hum.rec.anlog 80 unit SQ HS 12/12/21 01/19/22 [Lantus Solostar Pen] Valsartan 80 mg PO HS 12/12/21 01/19/22 Ipratropium-Albuterol Nebulize 3 ml INHALATION RT-Q6H PRN 12/15/21 01/19/22 [Duoneb 0.5 mg-3 mg/3 ml Soln] Previous Rx's Medication Instructions Recorded Acetaminophen Tab [Tylenol] 650 mg PO Q6HR PRN tab 12/15/21 Pantoprazole [Protonix] 40 mg PO AC-BID #60 tab 12/15/21 Ascorbic Acid [Vitamin C] 1,000 mg PO DAILY #60 tab 01/06/22 Cholecalciferol [Vitamin D3 (25 50 mcg PO DAILY #60 tablet 01/06/22 Mcg = 1000 Iu)] Zinc Sulfate [Orazinc] 220 mg PO DAILY #30 cap 01/06/22 amLODIPine [Norvasc] 5 mg PO DAILY #30 tab 01/06/22 Allergies Allergy/AdvReac Type Severity Reaction Status Date / Time codeine AdvReac Nausea & Verified 01/19/22 06:39 Vomiting Review of Systems ROS Statement: Those systems with pertinent positive or pertinent negative responses have been documented in the HPI. ROS Other: All systems not noted in ROS Statement are negative. Constitutional: Denies: fever, chills Respiratory: Reports: as per HPI, cough, dyspnea, wheezes. Denies: hemoptysis Cardiovascular: Denies: chest pain, palpitations, orthopnea, edema, syncope Gastrointestinal: Denies: abdominal pain, vomiting, diarrhea, melena, hematochezia Genitourinary: Denies: dysuria, hematuria Musculoskeletal: Denies: back pain Skin: Denies: rash Neurological: Denies: headache Past Medical History Past Medical History: Asthma, Coronary Artery Disease (CAD), Chest Pain / Angina, Heart Failure, COPD, CVA/TIA, Dementia, Diabetes Mellitus, Hype rlipidemia, Hypertension, [place]ocardial Infarction ([place]), Pneumonia, Respiratory Disorder, Syncope, Vascular Disorder Additional Past Medical History / Comment(s): IDDM type II, neuropathy bilateral feet, 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, R caratid artery disease, valvular disease, pulmonary htn, bronchitis, home oxygen prn, poor vision/pt cannot recall reason, UTIs, rash/itching Last Myocardial Infarction Date:: 2014 History of Any Multi-Drug Resistant Organisms: ESBL Date of last positivie culture/infection: 04/15/21 MDRO Source:: ESBL URINE Past Surgical History: Cholecystectomy, Coronary Bypass/CABG, Heart Catheterization With Stent Additional Past Surgical History / Comment(s): PCI/stents in 2009 and 2014, 2017 CABG 3 vessel then sternal debridement for infection/removal of hardware, colonoscopy, bilateral cataract removals. Past Anesthesia/Blood Transfusion Reactions: No Reported Reaction Additional Past Anesthesia/Blood Transfusion Reaction / Comment(s): Claustrophobic Date of Last Stent Placement:: 2014 Past Psychological History: No Psychological Hx Reported Smoking Status: Former smoker Past Alcohol Use History: None Reported Past Drug Use History: None Reported - Past Family History Father Family Medical History: Coronary Artery Disease (CAD), Myocardial Infarction ([place]) Additional Family Medical History / Comment(s): STENT, OPEN HEART SURGERY Mother Additional Family Medical History / Comment(s): DEPRESSION, mental illness General Exam Limitations: altered mental status General appearance: alert, in no apparent distress Head exam: Present: atraumatic, normocephalic Eye exam: Present: normal appearance. Absent: scleral icterus, conjunctival injection Neck exam: Present: normal inspection Respiratory exam: Present: wheezes. Absent: normal lung sounds bilaterally, respiratory distress, rales, rhonchi, stridor Cardiovascular Exam: Present: regular rate, normal rhythm, normal heart sounds. Absent: systolic murmur, diastolic murmur, rubs, gallop GI/Abdominal exam: Present: soft. Absent: distended, tenderness, guarding, rebound, rigid, mass Extremities exam: Present: normal inspection, normal capillary refill. Absent: pedal edema, calf tenderness Back exam: Present: normal inspection. Absent: CVA tenderness (R), CVA ten derness (L) Neurological exam: Present: alert. Absent: oriented X3 (Patient is oriented to person and place but not to date), motor sensory deficit Skin exam: Present: warm, dry, intact, normal color. Absent: rash Course Vital Signs 01/18/22 01/18/22 01/18/22 20:54 22:03 22:11 Temperature 98.6 F Pulse Rate 92 82 88 Pulse Rate [ Television Technician ] Respiratory 16 Rate Blood Pressure 124/64 Blood Pressure [Left Arm] O2 Sat by Pulse 97 Oximetry Fraction of Inspired Oxygen (FIO2) 01/18/22 01/19/22 01/19/22 23:50 01:26 02:49 Temperature 97.9 F Pulse Rate 85 84 Pulse Rate [ 67 Television Technician ] Respiratory 28 H 17 20 Rate Blood Pressure 132/62 119/59 Blood Pressure 140/59 [Left Arm] O2 Sat by Pulse 96 99 99 Oximetry Fraction of Inspired Oxygen (FIO2) 01/19/22 01/19/22 01/19/22 04:51 05:54 07:24 Temperature 97 F L Pulse Rate 77 85 80 Pulse Rate [ Television Technician ] Respiratory 16 18 Rate Blood Pressure 119/61 119/61 Blood Pressure [Left Arm] O2 Sat by Pulse 97 93 L Oximetry Fraction of 21 Inspired Oxygen (FIO2) 01/19/22 01/19/22 01/19/22 07:39 09:01 12:08 Temperature Pulse Rate 79 72 80 Pulse Rate [ Television Technician ] Respiratory 18 Rate Blood Pressure 109/51 Blood Pressure [Left Arm] O2 Sat by Pulse 96 Oximetry Fraction of Inspired Oxygen (FIO2) 01/19/22 01/19/22 12:17 18:24 Temperature Pulse Rate 80 78 Pulse Rate [ Television Technician ] Respiratory 20 Rate Blood Pressure 116/72 Blood Pressure [Left Arm] O2 Sat by Pulse 98 Oximetry Fraction of Inspired Oxygen (FIO2) - Reevaluation(s) Reevaluation #1: 01/19/22 00:23 Fluid bolus held given patient's history of congestive heart failure. EKG Findings - EKG Comments: EKG Findings:: Rhythm appears to be sinus with a first-degree AV block. Rate 92 bpm. Possible anterior infarct - EKG Results: EKG: interpreted by ERMD, sinus rhythm (Rate 92 bpm) - Blocks, [place], Hypertrophy, ST Abn: AV and intraventricular conduction: left anterior fascicular block Chamber hypertrophy or enlargement: left ventricular hypertrophy or enlargement (LVE) Medical Decision Making - Lab Data Result diagrams: 01/20/22 08:54 01/20/22 08:54 Lab Results 01/18/22 01/18/22 01/18/22 Range/Units 21:56 21:56 21:56 WBC 11.4 H (3.8-10.6) k/uL RBC 3.73 L (3.80-5.40) m/uL Hgb 11.7 (11.4-16.0) gm/dL Hct 38.0 (34.0-46.0) % MCV 101.9 H (80.0-100.0) fL MCH 31.4 (25.0-35.0) pg MCHC 30.8 L (31.0-37.0) g/dL RDW 11.9 (11.5-15.5) % Plt Count 261 (150-450) k/uL MPV 7.6 Neutrophils % 76 % Lymphocytes % 13 % Monocytes % 5 % Eosinophils % 3 % Basophils % 0 % Neutrophils # 8.6 H (1.3-7.7) k/uL Lymphocytes # 1.5 (1.0-4.8) k/uL Monocytes # 0.6 (0-1.0) k/uL Eosinophils # 0.3 (0-0.7) k/uL Basophils # 0.1 (0-0.2) k/uL PT 9.7 (9.0-12.0) sec INR 0.9 (<1.2) APTT 20.9 L (22.0-30.0) sec D-Dimer 0.78 H (<0.60) mg/L FEU VBG pH (7.31-7.41) VBG pCO2 (37-51) mmHg VBG HCO3 (24-28) mmol/L Sodium 135 L (137-145) mmol/L Potassium 4.1 (3.5-5.1) mmol/L Chloride 103 (98-107) mmol/L Carbon Dioxide 28 (22-30) mmol/L Anion Gap 4 mmol/L BUN 19 H (7-17) mg/dL Creatinine 0.92 (0.52-1.04) mg/dL Est GFR (CKD-EPI)AfAm 73 (>60 ml/min/1.73 sqM) Est GFR (CKD-EPI)NonAf 63 (>60 ml/min/1.73 sqM) Glucose 202 H (74-99) mg/dL Estimated Ave Glu mg/dL Hemoglobin A1c (0.0-6.0) % Lactic Ac Sepsis Rflx Plasma Lactic Acid Dennis (0.7-2.0) mmol/L Calcium 7.9 L (8.4-10.2) mg/dL Total Bilirubin 0.7 (0.2-1.3) mg/dL AST 21 (14-36) U/L ALT 17 (4-34) U/L Alkaline Phosphatase 74 (38-126) U/L Troponin I (0.000-0.034) ng/mL NT-Pro-B Natriuret Pep pg/mL Total Protein 5.7 L (6.3-8.2) g/dL Albumin 2.8 L (3.5-5.0) g/dL Procalcitonin (0.02-0.09) ng/mL 01/18/22 01/18/22 01/18/22 Range/Units 21:56 21:56 21:56 WBC (3.8-10.6) k/uL RBC (3.80-5.40) m/uL Hgb (11.4-16.0) gm/dL Hct (34.0-46.0) % MCV (80.0-100.0) fL MCH (25.0-35.0) pg MCHC (31.0-37.0) g/dL RDW (11.5-15.5) % Plt Count (150-450) k/uL MPV Neutrophils % % Lymphocytes % % Monocytes % % Eosinophils % % Basophils % % Neutrophils # (1.3-7.7) k/uL Lymphocytes # (1.0-4.8) k/uL Monocytes # (0-1.0) k/uL Eosinophils # (0-0.7) k/uL Basophils # (0-0.2) k/uL PT (9.0-12.0) sec INR (<1.2) APTT (22.0-30.0) sec D-Dimer (<0.60) mg/L FEU VBG pH (7.31-7.41) VBG pCO2 (37-51) mmHg VBG HCO3 (24-28) mmol/L Sodium (137-145) mmol/L Potassium (3.5-5.1) mmol/L Chloride (98-107) mmol/L Carbon Dioxide (22-30) mmol/L Anion Gap mmol/L BUN (7-17) mg/dL Creatinine (0.52-1.04) mg/dL Est GFR (CKD-EPI)AfAm (>60 ml/min/1.73 sqM) Est GFR (CKD-EPI)NonAf (>60 ml/min/1.73 sqM) Glucose (74-99) mg/dL Estimated Ave Glu mg/dL Hemoglobin A1c (0.0-6.0) % Lactic Ac Sepsis Rflx Plasma Lactic Acid Dennis 2.1 H* (0.7-2.0) mmol/L Calcium (8.4-10.2) mg/dL Total Bilirubin (0.2-1.3) mg/dL AST (14-36) U/L ALT (4-34) U/L Alkaline Phosphatase (38-126) U/L Troponin I 0.053 H* (0.000-0.034) ng/mL NT-Pro-B Natriuret Pep 622 pg/mL Total Protein (6.3-8.2) g/dL Albumin (3.5-5.0) g/dL Procalcitonin (0.02-0.09) ng/mL 01/18/22 01/18/22 01/18/22 Range/Units 21:56 21:56 21:56 WBC (3.8-10.6) k/uL RBC (3.80-5.40) m/uL Hgb (11.4-16.0) gm/dL Hct (34.0-46.0) % MCV (80.0-100.0) fL MCH (25.0-35.0) pg MCHC (31.0-37.0) g/dL RDW (11.5-15.5) % Plt Count (150-450) k/uL MPV Neutrophils % % Lymphocytes % % Monocytes % % Eosinophils % % Basophils % % Neutrophils # (1.3-7.7) k/uL Lymphocytes # (1.0-4.8) k/uL Monocytes # (0-1.0) k/uL Eosinophils # (0-0.7) k/uL Basophils # (0-0.2) k/uL PT (9.0-12.0) sec INR (<1.2) APTT (22.0-30.0) sec D-Dimer (<0.60) mg/L FEU VBG pH 7.33 (7.31-7.41) VBG pCO2 50 (37-51) mmHg VBG HCO3 25 (24-28) mmol/L Sodium (137-145) mmol/L Potassium (3.5-5.1) mmol/L Chloride (98-107) mmol/L Carbon Dioxide (22-30) mmol/L Anion Gap mmol/L BUN (7-17) mg/dL Creatinine (0.52-1.04) mg/dL Est GFR (CKD-EPI)AfAm (>60 ml/min/1.73 sqM) Est GFR (CKD-EPI)NonAf (>60 ml/min/1.73 sqM) Glucose (74-99) mg/dL Estimated Ave Glu mg/dL 258 Hemoglobin A1c 10.6 H (0.0-6.0) % Lactic Ac Sepsis Rflx Plasma Lactic Acid Dennis (0.7-2.0) mmol/L Calcium (8.4-10.2) mg/dL Total Bilirubin (0.2-1.3) mg/dL AST (14-36) U/L ALT (4-34) U/L Alkaline Phosphatase (38-126) U/L Troponin I (0.000-0.034) ng/mL NT-Pro-B Natriuret Pep pg/mL Total Protein (6.3-8.2) g/dL Albumin (3.5-5.0) g/dL Procalcitonin 0.14 H (0.02-0.09) ng/mL 01/18/22 Range/Units 23:21 WBC (3.8-10.6) k/uL RBC (3.80-5.40) m/uL Hgb (11.4-16.0) gm/dL Hct (34.0-46.0) % MCV (80.0-100.0) fL MCH (25.0-35.0) pg MCHC (31.0-37.0) g/dL RDW (11.5-15.5) % Plt Count (150-450) k/uL MPV Neutrophils % % Lymphocytes % % Monocytes % % Eosinophils % % Basophils % % Neutrophils # (1.3-7.7) k/uL Lymphocytes # (1.0-4.8) k/uL Monocytes # (0-1.0) k/uL Eosinophils # (0-0.7) k/uL Basophils # (0-0.2) k/uL PT (9.0-12.0) sec INR (<1.2) APTT (22.0-30.0) sec D-Dimer (<0.60) mg/L FEU VBG pH (7.31-7.41) VBG pCO2 (37-51) mmHg VBG HCO3 (24-28) mmol/L Sodium (137-145) mmol/L Potassium (3.5-5.1) mmol/L Chloride (98-107) mmol/L Carbon Dioxide (22-30) mmol/L Anion Gap mmol/L BUN (7-17) mg/dL Creatinine (0.52-1.04) mg/dL Est GFR (CKD-EPI)AfAm (>60 ml/min/1.73 sqM) Est GFR (CKD-EPI)NonAf (>60 ml/min/1.73 sqM) Glucose (74-99) mg/dL Estimated Ave Glu mg/dL Hemoglobin A1c (0.0-6.0) % Lactic Ac Sepsis Rflx Y Plasma Lactic Acid Dennis (0.7-2.0) mmol/L Calcium (8.4-10.2) mg/dL Total Bilirubin (0.2-1.3) mg/dL AST (14-36) U/L ALT (4-34) U/L Alkaline Phosphatase (38-126) U/L Troponin I (0.000-0.034) ng/mL NT-Pro-B Natriuret Pep pg/mL Total Protein (6.3-8.2) g/dL Albumin (3.5-5.0) g/dL Procalcitonin (0.02-0.09) ng/mL Disposition Clinical Impression: COVID, Pneumonia, NSTEMI (non-ST elevated myocardial infarction) Disposition: ADMITTED IP TO THIS HOSP Condition: Fair Is patient prescribed a controlled substance at d/c from ED?: No
[2022-01-18 22:11] LABS: Basophils # (A) 0.1 k/uL (0-0.2); Basophils % (A) 0 %; Eosinophils # (A) 0.3 k/uL (0-0.7); Eosinophils % (A) 3 %; HGB 11.7 gm/dL (11.4-16.0); Lymphocytes # (A) 1.5 k/uL (1.0-4.8); Lymphocytes % (A) 13 %; MCH 31.4 pg (25.0-35.0); MCHC 30.8 g/dL (31.0-37.0); MCV 101.9 fL (80.0-100.0); Mean Platelet Volume 7.6; Monocytes # (A) 0.6 k/uL (0-1.0); Monocytes % (A) 5 %; Neutrophils # (A) 8.6 k/uL (1.3-7.7); Neutrophils % (A) 76 %; Platelet Count 261 k/uL (150-450); RBC 3.73 m/uL (3.80-5.40); RDW 11.9 % (11.5-15.5); WBC 11.4 k/uL (3.8-10.6)
--- NOTE | 2022-01-18 22:11 | XR ---
EXAMINATION TYPE: XR chest 2V DATE OF EXAM: 01/18/2022 COMPARISON: 01/03/2022 HISTORY: Short of breath. TECHNIQUE: 2 view FINDINGS: There is pulmonary interstitial and airspace edema. Heart appears enlarged. There are chakraborty al wires. There are chest leads. No pleural effusion. IMPRESSION: There is some pulmonary interstitial edema which is increased compared to old exam. No pl eural fluid seen to suggest heart failure. This is consistent with acute pneumonia. Heart failure not excluded.
[2022-01-18 22:36] LABS: VBG PH 7.33 (7.31-7.41)
[2022-01-18 22:40] LABS: Albumin 2.8 g/dL (3.5-5.0); Calcium 7.9 mg/dL (8.4-10.2); Potassium 4.1 mmol/L (3.5-5.1); Total Bilirubin 0.7 mg/dL (0.2-1.3); Total Protein 5.7 g/dL (6.3-8.2)
[2022-01-18 22:41] LABS: INR 0.9 (<1.2); Prothrombin Time 9.7 sec (9.0-12.0)
[2022-01-18 22:46] LABS: Partial Thromboplastin Time 20.9 sec (22.0-30.0)
[2022-01-19] MEDS ORDERED: PNEUMONIA PROTOCOL UTILIZED 1 EACH MISC PO PRN (00:20)
[2022-01-19] MEDS ORDERED: ALBUTEROL NEBULIZED 2.5 MG/3 ML INHALATION PRN (00:20)
[2022-01-19] MEDS ORDERED: AZITHROMYCIN 500 MG in SODIUM CHLORIDE 0.9% 250 ML IVPB ONE (00:30)
[2022-01-19 01:50] LABS: VBG PH 7.37 (7.31-7.41)
[2022-01-19] MEDS: IPRATROPIUM-ALBUTEROL 3 ML NEB INHALATION SCH ×3 (07:23→17:33)
[2022-01-19] MEDS ORDERED: ACETAMINOPHEN TAB 325 MG TAB PO PRN (08:18)
[2022-01-19] MEDS ORDERED: traMADol 50 MG TAB PO PRN (08:18)
[2022-01-19] MEDS ORDERED: FUROSEMIDE 20 MG TAB PO PRN (08:18)
--- NOTE | 2022-01-19 09:58 | P.HPIM ---
History of Present Illness This is a pleasant 71 years old female with past medical history of sthma, Coronary Artery Disease (CAD), , Heart dis, COPD, CVA/TIA, Dementia, Diabetes Mellitus, Hyperlipidemia, Hypertension, diabetic nephropathy ESBL UTI, coronary artery disease status post CABG and stenting Patient has been complaining of from progressive dyspnea over the last 2 weeks with no resolution with little cough and the patella phlegm but no chest pain. No diarrhea or vomiting or dysuria. No headache or weakness or numbness. L4 mild left shoulder pain but with no history of trauma no restriction of movement. Back pain but no weakness. She denies smoking, alcohol or illicit drugs. She is on home oxygen of 4 L/m and her site acquisition specialist Dr. Kayden Pastor looks sta she has mild leukocytosis of 11.4, rest of the CBC is unremarkable. INR 0.9, d-dimer slightly elevated at 0.78. BMP and liver enzymes are unremarkable. Troponin elevated 0.05 ble and patient is afebrile. Patient is saturating 93% on room air. EKG showing normal sinus rhythm at 92 with LVH criteria and no significant ST-T changes. ProBNP is 622. Coronary artery is detected. Influenza virus is negative. In ED she was started on antibiotic and prednisone. chest x-ray: There is some pulmonary interstitial edema which is increased compared to old exam. Consistent with acute pneumonia. Review of Systems CONSTITUTIONAL: No fever, no malaise, no fatigue. HEENT: No recent visual problems or hearing problems. Denied any sore throat. CARDIOVASCULAR: No orthopnea, PND, no palpitations, no syncope. PULMONARY: No shortness of breath, no cough, no hemoptysis. GASTROINTESTINAL: No diarrhea, no nausea, no vomiting, no abdominal pain. Normoactive bowel sounds. NEUROLOGICAL: No headaches, no weakness, no numbness. HEMATOLOGICAL: Denies any bleeding or petechiae. GENITOURINARY: Denies any burning micturition, frequency, or urgency. MUSCULOSKELETAL/RHEUMATOLOGICAL: Denies any joint pain, swelling, or any muscle pain. ENDOCRINE: Denies any polyuria or polydipsia. 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, R caratid artery disease, valvular disease, pulmonary htn, bronchitis, home oxygen prn, poor vision/pt cannot recall reason, UTIs, rash/itching Last Myocardial Infarction Date:: 2014 History of Any Multi-Drug Resistant Organisms: ESBL Date of last positivie culture/infection: 04/15/21 MDRO Source:: ESBL URINE Past Surgical History: Cholecystectomy, Coronary Bypass/CABG, Heart Catheterization With Stent Additional Past Surgical History / Comment(s): PCI/stents in 2009 and 2014, 2016 CABG 3 vessel then sternal debridement for infection/removal of hardware, colonoscopy, bilateral cataract removals. Past Anesthesia/Blood Transfusion Reactions: No Reported Reaction Additional Past Anesthesia/Blood Transfusion Reaction / Comment(s): Claustrophobic Date of Last Stent Placement:: 2014 Past Psychological History: No Psychological Hx Reported Smoking Status: Former smoker Past Alcohol Use History: None Reported Past Drug Use History: None Reported - Past Family History Father Family Medical History: Coronary Artery Disease (CAD), Myocardial Infarction ([place]) Additional Family Medical History / Comment(s): STENT, OPEN HEART SURGERY Mother Additional Family Medical History / Comment(s): DEPRESSION, mental illness Medications and Allergies Home Medications Medication Instructions Recorded Confirmed Type Metoprolol Succinate [Toprol XL] 50 mg PO HS 08/30/18 01/19/22 History Furosemide [Lasix] 20 mg PO DAILY PRN 05/19/20 01/19/22 History Atorvastatin [Lipitor] 80 mg PO HS 09/23/20 01/19/22 History hydrOXYzine HCL [Atarax] 25 mg PO TID PRN 09/23/20 01/19/22 History Insulin Lispro [humaLOG Kwikpen] 15 units SQ AC-TID 11/11/20 01/19/22 History traMADol HCL [Ultram] 50 mg PO BID PRN 02/07/21 01/19/22 History Budesonide-Formot 160-4.5 Mcg 2 puff INHALATION RT-BID 04/12/21 01/19/22 History [Symbicort 160-4.5 Mcg Inhaler] Aspirin EC [Ecotrin Low Dose] 81 mg PO DAILY 12/12/21 01/19/22 History Clopidogrel Bisulfate [Plavix] 75 mg PO DAILY 12/12/21 01/19/22 History Insulin Glargine,Hum.rec.anlog 80 unit SQ HS 12/12/21 01/19/22 History [Lantus Solostar Pen] Valsartan 80 mg PO HS 12/12/21 01/19/22 History Acetaminophen Tab [Tylenol] 650 mg PO Q6HR PRN tab 12/15/21 01/19/22 Rx Ipratropium-Albuterol Nebulize 3 ml INHALATION RT-Q6H PRN 12/15/21 01/19/22 History [Duoneb 0.5 mg-3 mg/3 ml Soln] Pantoprazole [Protonix] 40 mg PO AC-BID #60 tab 12/15/21 01/19/22 Rx Ascorbic Acid [Vitamin C] 1,000 mg PO DAILY #60 tab 01/06/22 01/19/22 Rx Cholecalciferol [Vitamin D3 (25 50 mcg PO DAILY #60 tablet 01/06/22 01/19/22 Rx Mcg = 1000 Iu)] Zinc Sulfate [Orazinc] 220 mg PO DAILY #30 cap 01/06/22 01/19/22 Rx amLODIPine [Norvasc] 5 mg PO DAILY #30 tab 01/06/22 01/19/22 Rx Allergies Allergy/AdvReac Type Severity Reaction Status Date / Time codeine AdvReac Nausea & Verified 01/19/22 06:39 Vomiting Physical Exam Vitals: Vital Signs Temp Pulse Resp BP Pulse Ox FiO2 01/19/22 07:39 79 01/19/22 07:24 80 93 L 21 01/19/22 05:54 85 18 119/61 01/19/22 04:51 97 F L 77 16 119/61 97 01/19/22 02:49 84 20 119/59 99 01/18/22 23:50 85 28 H 132/62 96 01/18/22 22:11 88 01/18/22 22:03 82 01/18/22 20:54 98.6 F 92 16 124/64 97 Intake and Output 01/18/22 01/19/22 01/19/22 22:59 06:59 14:59 Other: Weight 95.254 kg GENERAL: The patient is alert and oriented x3, not in any acute distress. Well developed, well nourished. HEENT: Pupils are round and equally reacting to light. EOMI. No scleral icterus. No conjunctival pallor. Normocephalic, atraumatic. No pharyngeal erythema. No thyromegaly. CARDIOVASCULAR: S1 and S2 present. No murmurs, rubs, or gallops. PULMONARY: Chest is clear to auscultation, no wheezing or crackles. ABDOMEN: Soft, nontender, nondistended, normoactive bowel sounds. No palpable organomegaly. MUSCULOSKELETAL: No joint swelling or deformity. EXTREMITIES: No cyanosis, clubbing, or pedal edema. NEUROLOGICAL: Gross neurological examination did not reveal any focal deficits. SKIN: No rashes. No petechiae Results CBC & Chem 7: 01/18/22 21:56 01/18/22 21:56 Labs: Abnormal Lab Results - Last 24 Hours (Table) 01/18/22 01/18/22 01/18/22 Range/Units 21:56 21:56 21:56 WBC 11.4 H (3.8-10.6) k/uL RBC 3.73 L (3.80-5.40) m/uL MCV 101.9 H (80.0-100.0) fL MCHC 30.8 L (31.0-37.0) g/dL Neutrophils # 8.6 H (1.3-7.7) k/uL APTT 20.9 L (22.0-30.0) sec D-Dimer 0.78 H (<0.60) mg/L FEU Sodium 135 L (137-145) mmol/L BUN 19 H (7-17) mg/dL Glucose 202 H (74-99) mg/dL Plasma Lactic Acid Dennis (0.7-2.0) mmol/L Calcium 7.9 L (8.4-10.2) mg/dL Troponin I (0.000-0.034) ng/mL Total Protein 5.7 L (6.3-8.2) g/dL Albumin 2.8 L (3.5-5.0) g/dL Coronavirus (PCR) (Not Detectd) 01/18/22 01/18/22 01/19/22 Range/Units 21:56 21:56 01:43 WBC (3.8-10.6) k/uL RBC (3.80-5.40) m/uL MCV (80.0-100.0) fL MCHC (31.0-37.0) g/dL Neutrophils # (1.3-7.7) k/uL APTT (22.0-30.0) sec D-Dimer (<0.60) mg/L FEU Sodium (137-145) mmol/L BUN (7-17) mg/dL Glucose (74-99) mg/dL Plasma Lactic Acid Dennis 2.1 H* (0.7-2.0) mmol/L Calcium (8.4-10.2) mg/dL Troponin I 0.053 H* (0.000-0.034) ng/mL Total Protein (6.3-8.2) g/dL Albumin (3.5-5.0) g/dL Coronavirus (PCR) Detected A (Not Detectd) Assessment and Plan Assessment: Bilateral community acquired infection Covid infection Elevated troponin Chronic hypoxic respiratory failure on 4 L oxygen at home. Mild left shoulder pain with no history of trauma. No need for x-ray shows treatment conservatively and keep monitoring. Hypertension Hyperlipidemia Diabetes mellitus, type II Diabetic nephropathy History of ESBL UTI History of coronary artery disease status post CABG and stenting History of asthma Morbid Obesity with BMI of 41 Plan: This is a pleasant 71 years old female who presents with bilateral pneumonia, Covid infection Continue with ceftriaxone and Zithromax. Sputum culture Bronchodilator as needed Pulmonary consult Continue with vitamin C, vitamin D and zinc Continue with aspirin and Plavix and cardiology consult Check hemoglobin A1c, procalcitonin Labs and medication were reviewed.. Continue same treatment. Continue with symptomatic treatment. Resume home medication. Monitor lytes and vitals. DVT and GI prophylaxis. Further recommendations depends on the clinical course of the patient DVT prophylaxis: Subcutaneous heparin GI Prophylaxis: PPI PT/OT: Pending Prognosis is guarded
[2022-01-19] MEDS ORDERED: CLOPIDOGREL 75 MG TAB ONE (10:11)
[2022-01-19] MEDS: ASPIRIN 81 MG PO SCH (10:13)
[2022-01-19] MEDS: amLODIPine 5 MG TAB PO SCH (10:14)
[2022-01-19] MEDS: ASCORBIC ACID 500 MG TAB PO SCH (10:14)
[2022-01-19] MEDS: CHOLECALCIFEROL 25 MCG (1000 IU) TABLET PO SCH (10:15)
[2022-01-19] MEDS: ZINC SULFATE 220 MG CAP PO SCH (10:31)
[2022-01-19 14:55] LABS: Glucose,Whole Blood 474 mg/dL (75-99)
--- NOTE | 2022-01-19 15:47 | P.CNPUL ---
History of Present Illness Consult date: 01/19/22 Reason for consult: dyspnea, COPD History of present illness: 71-year-old female patient with multiple medical problems and comorbidities, who is coming into the hospital because of two-week history of increased dyspnea, cough and congestion and worsening shortness of breath. She was getting progressively more weak and tired and fatigued. No change in taste or smell. No nausea vomiting or diarrhea. No headaches. No altered mentation. She is known to have chronic medical problems and chronic back pain without any new onset weakness. His been on oxygen at 4 L per minute nasal cannula at baseline. She came into the emergency and the patient tested positive for COVID 19. Note that the patient has not incidentally vaccination the past and the patient has not been infected with the virus in the past. The patient is currently on o xygen at 4 L per minute nasal cannula which is her baseline. She is known to have multiple medical problems and comorbidities as stated. Her white cell count at the time of admission was 11.4 with a hemoglobin of 11.7 and a platelet count of 261. Regulation profile was normal. D-dimer was 0.7. Her venous blood sample showed a pH of 7.37 with a pCO2 of 42. The BUN is at 19 with a creatinine of 0.9 and his sodium level of 135. Glucose was elevated at 474 and the patient's initial lactic acid level was 2.1 drop down to 1.0. Troponin was at 0.05. ProBNP level was 622. The pro calcitonin level showed 0.14. Chest x- ray showed no acute abnormalities Review of Systems Constitutional: Reports daytime sleepiness, Reports fatigue, Reports lethargy, R eports poor appetite, Reports weakness, Reports weight gain Eyes: denies as per HPI, denies blurred vision, denies bulging eye, denies decreased vision, denies diplopia, denies discharge, denies dry eye, denies irritation, denies itching, denies pain, denies photophobia, denies loss of peripheral vision, denies loss of vision, denies tunnel vision/blind spots Ears: deny: decreased hearing, ear discharge, earache, tinnitus Ears, nose, mouth and throat: Reports as per HPI Breasts: absent: as per HPI, change in shape, gynecomastia, masses, nipple discharge, pain, skin changes, swelling Cardiovascular: Reports decreased exercise tolerance, Reports dyspnea on exertion, Reports shortness of breath Respiratory: Reports cough, Reports dyspnea, Reports home oxygen, Reports wheezing Gastrointestinal: Reports as per HPI Genitourinary: Reports as per HPI Musculoskeletal: Reports gait dysfunction, Reports low back pain Musculoskeletal: absent: ankle pain, ankle stiffness, ankle swelling Integumentary: Reports as per HPI Neurological: Reports as per HPI, Reports weakness Psychiatric: Reports as per HPI Endocrine: Reports as per HPI Hematologic/Lymphatic: Reports as per HPI Allergic/Immunologic: Reports as per HPI Past Medical History Past Medical History: Asthma, Coronary Artery Disease (CAD), Chest Pain / Angina, Heart Failure, COPD, CVA/TIA, Dementia, Diabetes Mellitus, Hyperlipidemia, Hypertension, Myocardial Infarction ([place]), Pneumonia, Respiratory Disorder, Syncope, Vascular Disorder Additional Past Medical History / Comment(s): IDDM type II, neuropathy bilateral feet, 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, R caratid artery disease, valvular disease, pulmonary htn, bronchitis, home oxygen prn, poor vision/pt can not recall reason, UTIs, rash/itching Last Myocardial Infarction Date:: 2014 History of Any Multi-Drug Resistant Organisms: ESBL Date of last positivie culture/infection: 04/15/21 MDRO Source:: ESBL URINE Past Surgical History: Cholecystectomy, Coronary Bypass/CABG, Heart Cat heterization With Stent Additional Past Surgical History / Comment(s): PCI/stents in 2009 and 2014, 2016 CABG 3 vessel then sternal debridement for infection/removal of hardware, colonoscopy, bilateral cataract removals. Past Anesthesia/Blood Transfusion Reactions: No Reported Reaction Additional Past Anesthesia/Blood Transfusion Reaction / Comment(s): Claustrophobic Date of Last Stent Placement:: 2014 Past Psychological History: No Psychological Hx Reported Smoking Status: Former smoker Past Alcohol Use History: None Reported Past Drug Use History: None Reported - Past Family History Father Family Medical History: Coronary Artery Disease (CAD), Myocardial Infarction (PR) Additional Family Medical History / Comment(s): STENT, OPEN HEART SURGERY Mother Additional Family Medical History / Comment(s): DEPRESSION, mental illness Medications and Allergies Home Medications Medication Instructions Recorded Confirmed Type Metoprolol Succinate [Toprol XL] 50 mg PO HS 08/30/18 01/19/22 History Furosemide [Lasix] 20 mg PO DAILY PRN 05/19/20 01/19/22 History Atorvastatin [Lipitor] 80 mg PO HS 09/23/20 01/19/22 History hydrOXYzine HCL [Atarax] 25 mg PO TID PRN 09/23/20 01/19/22 History Insulin Lispro [humaLOG Kwikpen] 15 units SQ AC-TID 11/11/20 01/19/22 History traMADol HCL [Ultram] 50 mg PO BID PRN 02/07/21 01/19/22 History Budesonide-Formot 160-4.5 Mcg 2 puff INHALATION RT-BID 04/12/21 01/19/22 History [Symbicort 160-4.5 Mcg Inhaler] Aspirin EC [Ecotrin Low Dose] 81 mg PO DAILY 12/12/21 01/19/22 History Clopidogrel Bisulfate [Plavix] 75 mg PO DAILY 12/12/21 01/19/22 History Insulin Glargine,Hum.rec.anlog 80 unit SQ HS 12/12/21 01/19/22 History [Lantus Solostar Pen] Valsartan 80 mg PO HS 12/12/21 01/19/22 History Acetaminophen Tab [Tylenol] 650 mg PO Q6HR PRN tab 12/15/21 01/19/22 Rx Ipratropium-Albuterol Nebulize 3 ml INHALATION RT-Q6H PRN 12/15/21 01/19/22 History [Duoneb 0.5 mg-3 mg/3 ml Soln] Pantoprazole [Protonix] 40 mg PO AC-BID #60 tab 12/15/21 01/19/22 Rx Ascorbic Acid [Vitamin C] 1,000 mg PO DAILY #60 tab 01/06/22 01/19/22 Rx Cholecalciferol [Vitamin D3 (25 50 mcg PO DAILY #60 tablet 01/06/22 01/19/22 Rx Mcg = 1000 Iu)] Zinc Sulfate [Orazinc] 220 mg PO DAILY #30 cap 01/06/22 01/19/22 Rx amLODIPine [Norvasc] 5 mg PO DAILY #30 tab 01/06/22 01/19/22 Rx Allergies Allergy/AdvReac Type Severity Reaction Status Date / Time codeine AdvReac Nausea & Verified 01/19/22 06:39 Vomiting Physical Exam Vitals: Vital Signs Temp Pulse Resp BP Pulse Ox FiO2 01/19/22 12:17 80 05/26/22 12:08 80 01/19/22 09:01 72 18 109/51 96 01/19/22 07:39 79 01/19/22 07:24 80 93 L 21 01/19/22 05:54 85 18 119/61 01/19/22 04:51 97 F L 77 16 119/61 97 01/19/22 02:49 84 20 119/59 99 01/18/22 23:50 85 28 H 132/62 96 01/18/22 22:11 88 01/18/22 22:03 82 01/18/22 20:54 98.6 F 92 16 124/64 97 GENERAL EXAM: Alert, very pleasant, 71-year-old white female, on 4 L of O2 nasal cannula the patient is breathing comfortably and her breathing is nonlabored this point in time. HEAD: Normocephalic/atraumatic. EYES: Normal reaction of pupils, equal size. Conjunctiva pink, sclera white. NOSE: Clear with pink turbinates. THROAT: No erythema or exudates. NECK: No masses, no JVD, no thyroid enlargement, no adenopathy. CHEST: No chest wall deformity. Symmetrical expansion. Diminished breath sounds along with some limited crackles in lung bases bilaterally. LUNGS: Equal air entry with no crackles, wheeze, rhonchi or dullness. CVS: Regular rate and rhythm, normal S1 and S2, no gallops, no murmurs, no rubs ABDOMEN: Soft, nontender. No hepatosplenomegaly, normal bowel sounds, no guarding or rigidity. EXTREMITIES: No clubbing, no edema, no cyanosis, 2+ pulses and upper and lower extremities. MUSCULOSKELETAL: Muscle strength and tone normal. SPINE: No scoliosis or deformity SKIN: No rashes CENTRAL NERVOUS SYSTEM: Alert and oriented oriented 3 and the patient has no focal neurological deficits. PSYCHIATRIC: Alert and oriented -2. Appropriate affect. Intact judgment and insight. Results - Laboratory Findings CBC and BMP: 01/18/22 21:56 01/18/22 21:56 PT/INR, D-dimer PT 9.7 sec (9.0-12.0) 01/18/22 21:56 INR 0.9 (<1.2) 01/18/22 21:56 D-Dimer 0.78 mg/L FEU (<0.60) H 01/18/22 21:56 Abnormal lab findings: Abnormal Labs 01/18/22 01/18/22 01/18/22 21:56 21:56 21:56 WBC 11.4 H RBC 3.73 L MCV 101.9 H MCHC 30.8 L Neutrophils # 8.6 H APTT 20.9 L D-Dimer 0.78 H Sodium 135 L BUN 19 H Glucose 202 H POC Glucose (mg/dL) Plasma Lactic Acid Dennis Calcium 7.9 L Troponin I Total Protein 5.7 L Albumin 2.8 L Procalcitonin Coronavirus (PCR) 01/18/22 01/18/22 01/18/22 21:56 21:56 21:56 WBC RBC MCV MCHC Neutrophils # APTT D-Dimer Sodium BUN Glucose POC Glucose (mg/dL) Plasma Lactic Acid Dennis 2.1 H* Calcium Troponin I 0.053 H* Total Protein Albumin Procalcitonin 0.14 H Coronavirus (PCR) 01/19/22 01/19/22 01:43 13:19 WBC RBC MCV MCHC Neutrophils # APTT D-Dimer Sodium BUN Glucose POC Glucose (mg/dL) 474 H Plasma Lactic Acid Dennis Calcium Troponin I Total Protein Albumin Procalcitonin Coronavirus (PCR) Detected A - Diagnostic Findings Chest x-ray: image reviewed Assessment and Plan Plan: Acute COVID 19 infection. The patient became symptomatic approximately 2 weeks ago. No clear indication for pneumonia although this cannot be completely ruled out. For now, the patient is presenting with worsening shortness of breath. Note that the patient has not incidentally vaccination and she has had no previous COVID 19 infection and the patient has not received any outpatient treatment for this problem Chronic hypoxic respiratory failure still on 4 L of oxygen by nasal cannula COPD Diabetes mellitus type 2, blood sugars are elevated probably related to use of steroids that the patient was given prednisone and emergency department. She is currently on Levemir 8 units along with NovoLog sliding scale coverage Coronary artery disease with previous coronary stenting and previous coronary artery bypass surgery 2016, previous history of bypass surgery and coronary stenting History of acute ischemic stroke post TPA administration with adequate neurological recovery. This occurred back in March 2021. Hypertension Hyperlipidemia Previous history of ESBL producing UTI Obesity with a BMI of 41 Minimal troponin elevation, septal ischemia secondary to above Mild lactic acidosis, recovered Plan Keep the patient on 4 L per minute nasal cannula Titrate oxygen flow to maintain a saturation above 90% Check inflammatory markers including LDH and CRP Antibiotic coverage is empiric and there is no clear indication of a bacterial pneumonia and the Prograf Level Was Nonelevated Chest x-ray was reviewed Heparin subcu for DVT prophylaxis, d-dimer levels are low Resume all medications Gen. a medicine to control the blood sugar more tightly We'll continue to follow make further recommendations based on the progress.
[2022-01-19] MEDS: ALBUTEROL HFA INHALER INHALATION PRN (19:44)
[2022-01-19] MEDS: SYMBICORT 160-4.5 MCG INHALER INHALATION SCH (19:44)
[2022-01-19] MEDS: CLOPIDOGREL 75 MG TAB PO SCH (19:56)
[2022-01-19] MEDS: PANTOPRAZOLE 40 MG TABLET PO SCH (19:57)
[2022-01-19] MEDS: INSULIN ASPART (NovoLOG) 100 UNIT/ML VIAL SQ SCH ×2 (19:57→21:39)
[2022-01-19 20:34] LABS: Glucose,Whole Blood 577 mg/dL (75-99)
[2022-01-19 20:34] LABS: Glucose,Whole Blood 568 mg/dL (75-99)
[2022-01-19] MEDS ORDERED: INSULIN ASPART (NovoLOG) 100 UNIT/ML VIAL SQ ONE (20:53)
[2022-01-19 21:13] LABS: C Reactive Protein 6.3 mg/dL (<1.0)
[2022-01-19] MEDS: INSULIN DETEMIR (LEVEMIR) 100 UNIT/ML SYR SQ SCH (21:39)
[2022-01-19] MEDS: HEPARIN SODIUM,PORCINE/PF 5,000 UNIT/0.5 ML SYRINGE SQ SCH (21:40)
[2022-01-19] MEDS: METOPROLOL SUCCINATE (ER) 50 MG TAB.ER.24H PO SCH (21:40)
[2022-01-19] MEDS: ATORVASTATIN 80 MG TAB PO SCH (21:40)
[2022-01-19] MEDS: VALSARTAN 80 MG TAB PO SCH (23:07)
[2022-01-20 05:58] LABS: Glucose,Whole Blood 317 mg/dL (75-99)
[2022-01-20] MEDS: PANTOPRAZOLE 40 MG TABLET PO SCH ×2 (06:37→17:44)
[2022-01-20] MEDS: INSULIN ASPART (NovoLOG) 100 UNIT/ML VIAL SQ SCH ×5 (06:37→22:26)
--- NOTE | 2022-01-20 07:29 | XR ---
EXAMINATION TYPE: XR chest 1V portable DATE OF EXAM: 01/20/2022 COMPARISON: Chest x-ray 01/18/2022 HISTORY: Covid 19 positive, abnormal chest x-ray TECHNIQUE: Single frontal view of the chest is obtained. FINDINGS: Patient is post median sternotomy. Heart is enlarged. No evident pneumothorax or pleural e ffusion. Patient is rotated, there are overlying artifacts. Interstitium is mildly increased but perh aps improved, central vascularity less conspicuous. IMPRESSION: There may be some improvement in patient's volume status, follow-up PA and lateral chest x-ray when stable
[2022-01-20] MEDS: SYMBICORT 160-4.5 MCG INHALER INHALATION SCH ×2 (08:40→20:03)
--- NOTE | 2022-01-20 09:02 | P.CRDCN ---
History of Present Illness Consult date: 01/20/22 History of present illness: HISTORY OF PRESENT ILLNESS: This is a 71 year old female with a past medical history significant for coronary artery disease with previous CABG, hypertension, hyperlipidemia, COPD, and former nicotine dependence. Patient follows in the office with Dr. Flannery but has not been seen in the office since December 2019. We have been asked to see the patient in consultation for elevated troponins. Patient examined at the bedside. * EKG reveals sinus mechanism with nonspecific ST-T wave changes * Chest xray there is some pulmonary interstitial edema which is increased compared to exam. No pleural fluid seen to suggest heart failure. This is consistent with acute pneumonia. Heart failure not excluded. * Laboratory data: WBC 11.4. Hemoglobin 11.7. Platelet count 261. D-dimer 0.78. Sodium 135. Potassium 4.1. BUN 19. Creatinine 0.92. Lactic acid 2.1. Troponin 0.053. ProBNP 622. * Current home cardiac medications include amlodipine 5 mg daily, valsartan 80 mg at night, metoprolol succinate 50 mg at night, Lasix 20 mg daily as needed, Plavix 75 mg daily, Lipitor 80 mg at night, aspirin 81 mg daily * Most recent echocardiogram obtained in November 2021 revealed ejection fraction 55-60%, * Cardiac catheterization history: 2017 revealing chronically occluded right coronary arteries with collaterals from the left system, progression of disease in the proximal and mid LAD, significant disease in the first obtuse m arginal branch. REVIEW OF SYSTEMS: Thorough review of systems not completed secondary to limited evaluation/examination due to Covid19 PHYSICAL EXAM: Thorough physical exam not completed secondary to limited evaluation/examination due to Covid19 ASSESSMENT: Covid 19 Abnormal troponin, suspect secondary to above, no evidence of acute coronary syndrome Acute hypoxic respiratory failure Coronary artery disease with previous CABG Hypertension Hyperlipidemia Diabetes PLAN: Acute coronary and has been ruled out Resume home cardiac medications Trend troponin levels Obtain 2-D echo to assess cardiac structure and function Further recommendations pending patient's course Nurse practitioner note has been reviewed by physician. Signing provider agrees with the documented findings, assessment, and plan of care. Past Medical History Past Medical History: Asthma, Coronary Artery Disease (CAD), Chest Pain / Angina, Heart Failure, COPD, CVA/TIA, Dementia, Diabetes Mellitus, Hyperlipidemia, Hypertension, Myocardial Infarction ([place]), Pneumonia, Respiratory Disorder, Syncope, Vascular Disorder Additional Past Medical History / Comment(s): IDDM type II, neuropathy bilateral feet, 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, R caratid artery disease, valvular disease, pulmonary htn, bronchitis, home oxygen prn, poor vision/pt cannot recall reason, UTIs, rash/itching Last Myocardial Infarction Date:: 2014 History of Any Multi-Drug Resistant Organisms: ESBL Date of last positivie culture/infection: 04/15/21 MDRO Source:: ESBL URINE Past Surgical History: Cholecystectomy, Coronary Bypass/CABG, Heart Catheterization With Stent Additional Past Surgical History / Comment(s): PCI/stents in 2009 and 2014, 2016 CABG 3 vessel then sternal debridement for infection/removal of hardware, colonoscopy, bilateral cataract removals. Past Anesthesia/Blood Transfusion Reactions: No Reported Reaction Additional Past Anesthesia/Blood Transfusion Reaction / Comment(s): Claustrophobic Date of Last Stent Placement:: 2014 Past Psychological History: No Psychological Hx Reported Smoking Status: Former smoker Past Alcohol Use History: None Reported Past Drug Use History: None Reported - Past Family History Father Family Medical History: Coronary Artery Disease (CAD), Myocardial Infarction (AL) Additional Family Medical History / Comment(s): STENT, OPEN HEART SURGERY Mother Additional Family Medical History / Comment(s): DEPRESSION, mental illness Medications and Allergies Home Medications Medication Instructions Recorded Confirmed Type Metoprolol Succinate [Toprol XL] 50 mg PO HS 08/30/18 01/19/22 History Furosemide [Lasix] 20 mg PO DAILY PRN 05/19/20 01/19/22 History Atorvastatin [Lipitor] 80 mg PO HS 09/23/20 01/19/22 History hydrOXYzine HCL [Atarax] 25 mg PO TID PRN 09/23/20 01/19/22 History Insulin Lispro [humaLOG Kwikpen] 15 units SQ AC-TID 11/11/20 01/19/22 History traMADol HCL [Ultram] 50 mg PO BID PRN 02/07/21 01/19/22 History Budesonide-Formot 160-4.5 Mcg 2 puff INHALATION RT-BID 04/12/21 01/19/22 History [Symbicort 160-4.5 Mcg Inhaler] Aspirin EC [Ecotrin Low Dose] 81 mg PO DAILY 12/12/21 01/19/22 History Clopidogrel Bisulfate [Plavix] 75 mg PO DAILY 12/12/21 01/19/22 History Insulin Glargine,Hum.rec.anlog 80 unit SQ HS 12/12/21 01/19/22 History [Lantus Solostar Pen] Valsartan 80 mg PO HS 12/12/21 01/19/22 History Acetaminophen Tab [Tylenol] 650 mg PO Q6HR PRN tab 12/15/21 01/19/22 Rx Ipratropium-Albuterol Nebulize 3 ml INHALATION RT-Q6H PRN 12/15/21 01/19/22 History [Duoneb 0.5 mg-3 mg/3 ml Soln] Pantoprazole [Protonix] 40 mg PO AC-BID #60 tab 12/15/21 01/19/22 Rx Ascorbic Acid [Vitamin C] 1,000 mg PO DAILY #60 tab 01/06/22 01/19/22 Rx Cholecalciferol [Vitamin D3 (25 50 mcg PO DAILY #60 tablet 01/06/22 01/19/22 Rx Mcg = 1000 Iu)] Zinc Sulfate [Orazinc] 220 mg PO DAILY #30 cap 01/06/22 01/19/22 Rx amLODIPine [Norvasc] 5 mg PO DAILY #30 tab 01/06/22 01/19/22 Rx Allergies Allergy/AdvReac Type Severity Reaction Status Date / Time codeine AdvReac Nausea & Verified 01/19/22 06:39 Vomiting Physical Exam Vitals: Vital Signs Temp Pulse Pulse Resp BP BP Pulse Ox 01/20/22 04:00 98.1 F 65 18 106/47 99 01/20/22 02:00 65 18 01/20/22 00:00 98.6 F 65 18 108/48 90 L 01/19/22 20:00 97.9 F 67 17 140/59 99 01/19/22 18:24 78 20 116/72 98 01/19/22 12:17 80 01/19/22 12:08 80 01/19/22 09:01 72 18 109/51 96 01/19/22 07:39 79 01/19/22 07:24 80 93 L FiO2 01/20/22 04:00 01/20/22 02:00 01/20/22 00:00 01/19/22 20:00 01/19/22 18:24 01/19/22 12:17 01/19/22 12:08 01/19/22 09:01 01/19/22 07:39 01/19/22 07:24 21 Intake and Output 01/19/22 01/20/22 01/20/22 22:59 06:59 14:59 Intake Total 550 Balance 550 Intake: Intake, IV Titration 100 Amount cefTRIAXone 2 gm In 100 Sodium Chloride 0.9% 50 ml @ 100 mls/hr IVPB Q24H [facility] Rx#:[id number] Oral 450 Other: # Voids 2 3 Results 01/18/22 21:56 01/18/22 21:56 Cardiac Enzymes 01/19/22 Range/Units 20:43 Lactate Dehydrogenase 987 H (313-618) U/L Current Medications Generic Name Dose Route Start Last Admin Trade Name Freq PRN Reason Stop Dose Admin Acetaminophen 650 mg 01/19/22 08:18 Acetaminophen Tab 325 Mg Tab PO Q6HR PRN Mild Pain or Fever > 100.5 Albuterol Sulfate 2 puff 01/19/22 17:35 01/19/22 19:44 Albuterol Hfa Inhaler INHALATION 2 puff RT-QID PRN Administration Shortness Of Breath Or Wheezing Amlodipine Besylate 5 mg 01/19/22 09:00 01/19/22 10:14 Amlodipine 5 Mg Tab PO 5 mg DAILY KAREN Administration Ascorbic Acid 1,000 mg 01/19/22 09:00 01/19/22 10:14 Ascorbic Acid 500 Mg Tab PO 1,000 mg DAILY KAREN Administration Aspirin 81 mg 01/19/22 09:00 01/19/22 10:13 Aspirin 81 Mg PO 81 mg DAILY KAREN Administration Atorvastatin Calcium 80 mg 01/19/22 21:00 01/19/22 21:40 Atorvastatin 80 Mg Tab PO 80 mg HS KAREN Administration Azithromycin 500 mg 01/20/22 09:00 Azithromycin 500 Mg Tab PO 01/21/22 09:01 DAILY [facility] Protocol Budesonide/Formoterol Fumarate 2 puff 01/19/22 20:00 01/19/22 19:44 Symbicort 160-4.5 Mcg Inhaler INHALATION 2 puff RT-BID KAREN Administration Cholecalciferol 50 mcg 01/19/22 09:00 01/19/22 10:15 Cholecalciferol 25 Mcg (1000 Iu) Tablet PO 50 mcg DAILY KAREN Administration Clopidogrel Bisulfate 75 mg 01/19/22 09:00 01/19/22 19:56 Clopidogrel 75 Mg Tab PO Not Given DAILY AKREN Dexamethasone Sodium Phosphate 6 mg 01/20/22 09:00 Dexamethasone Sod Phosphate 10 Mg/Ml 1 Ml Vial IVP DAILY KAREN Furosemide 20 mg 01/19/22 08:18 Furosemide 20 Mg Tab PO DAILY PRN Edema Heparin Sodium (Porcine) 5,000 unit 01/19/22 21:00 01/19/22 21:40 Heparin Sodium,Porcine/Pf 5,000 Unit/0.5 Ml Syringe SQ 5,000 unit Q12HR KAREN Administration Ceftriaxone Sodium 2 gm/ 50 mls @ 100 mls/hr 01/20/22 06:00 01/20/22 05:18 Sodium Chloride IVPB 01/23/22 06:29 100 mls/hr Q24H KAREN Administration Protocol Insulin Aspart 0 unit 01/19/22 12:30 01/20/22 06:37 Insulin Aspart (Novolog) 100 Unit/Ml Vial SQ 5 unit ACHS KAREN Administration Protocol Insulin Detemir 80 unit 01/19/22 21:00 01/19/22 21:39 Insulin Detemir (Levemir) 100 Unit/Ml Syr SQ 80 unit HS KAREN Administration Metoprolol Succinate 50 mg 01/19/22 21:00 01/19/22 21:40 Metoprolol Succinate (Er) 50 Mg Tab.Er.24h PO 50 mg HS KAREN Administration Miscellaneous Information 1 each 01/19/22 00:20 Pneumonia Protocol Utilized 1 Each Misc PO ONCE PRN Per Protocol Pantoprazole Sodium 40 mg 01/19/22 17:30 01/20/22 06:37 Pantoprazole 40 Mg Tablet PO 40 mg AC-BID KAREN Administration Tramadol HCl 50 mg 01/19/22 08:18 Tramadol 50 Mg Tab PO BID PRN Pain Valsartan 80 mg 01/19/22 21:00 01/19/22 23:07 Valsartan 80 Mg Tab PO 80 mg HS KAREN Administration Zinc Sulfate 220 mg 01/19/22 09:00 01/19/22 10:31 Zinc Sulfate 220 Mg Cap PO 220 mg DAILY KAREN Administration Intake and Output 01/19/22 01/20/22 01/20/22 22:59 06:59 14:59 Intake Total 550 Balance 550 Intake: Intake, IV Titration 100 Amount cefTRIAXone 2 gm In 100 Sodium Chloride 0.9% 50 ml @ 100 mls/hr IVPB Q24H [facility] Rx#:[id number] Oral 450 Other: # Voids 2 3 01/18/22 21:56 01/18/22 21:56
[2022-01-20 09:39] LABS: Basophils % (A) 0 %; Eosinophils # (A) 0.1 k/uL (0-0.7); Eosinophils % (A) 1 %; HCT 37.1 % (34.0-46.0); HGB 11.3 gm/dL (11.4-16.0); Hypochromasia Slight; Lymphocytes # (A) 1.7 k/uL (1.0-4.8); Lymphocytes % (A) 13 %; MCH 31.7 pg (25.0-35.0); MCHC 30.5 g/dL (31.0-37.0); MCV 103.9 fL (80.0-100.0); Macrocytosis Slight; Monocytes # (A) 0.8 k/uL (0-1.0); Monocytes % (A) 6 %; Neutrophils # (A) 10.6 k/uL (1.3-7.7); Neutrophils % (A) 79 %; Platelet Count 272 k/uL (150-450); RBC 3.57 m/uL (3.80-5.40); RDW 11.7 % (11.5-15.5); WBC 13.4 k/uL (3.8-10.6)
[2022-01-20 09:58] LABS: Calcium 8.4 mg/dL (8.4-10.2); Magnesium 2.4 mg/dL (1.6-2.3); Potassium 4.9 mmol/L (3.5-5.1); Total Bilirubin 0.3 mg/dL (0.2-1.3); Total Protein 6.1 g/dL (6.3-8.2)
[2022-01-20] MEDS: AZITHROMYCIN 500 MG TAB PO SCH (10:13)
[2022-01-20] MEDS: ASPIRIN 81 MG PO SCH (10:13)
[2022-01-20] MEDS: ASCORBIC ACID 500 MG TAB PO SCH (10:13)
[2022-01-20] MEDS: CLOPIDOGREL 75 MG TAB PO SCH (10:13)
[2022-01-20] MEDS: ZINC SULFATE 220 MG CAP PO SCH (10:14)
[2022-01-20] MEDS: DEXAMETHASONE SOD PHOSPHATE 10 MG/ML 1 ML VIAL IVP SCH (10:14)
[2022-01-20] MEDS: CHOLECALCIFEROL 25 MCG (1000 IU) TABLET PO SCH (10:14)
[2022-01-20] MEDS: HEPARIN SODIUM,PORCINE/PF 5,000 UNIT/0.5 ML SYRINGE SQ SCH ×2 (10:14→22:26)
[2022-01-20] MEDS: amLODIPine 5 MG TAB PO SCH (10:14)
[2022-01-20 11:42] LABS: Glucose,Whole Blood 235 mg/dL (75-99)
--- NOTE | 2022-01-20 12:19 | P.PN ---
Subjective Progress Note Date: 01/20/22 71-year-old female patient with multiple medical problems and comorbidities, who is coming into the hospital because of two-week history of increased dyspnea, cough and congestion and worsening shortness of breath. She was getting progressively more weak and tired and fatigued. No change in taste or smell. No nausea vomiting or diarrhea. No headaches. No altered mentation. She is known to have chronic medical problems and chronic back pain without any new onset weakness. His been on oxygen at 4 L per minute nasal cannula at baseline. She came into the emergency and the patient tested positive for COVID 19. Note that the patient has not incidentally vaccination the past and the patient has not been infected with the virus in the past. The patient is currently on oxygen at 4 L per minute nasal cannula which is her baseline. She is known to have multiple medical problems and comorbidities as stated. Her white cell count at the time of admission was 11.4 with a hemoglobin of 11.7 and a platelet count of 261. Regulation profile was normal. D-dimer was 0.7. Her venous blood sample showed a pH of 7.37 with a pCO2 of 42. The BUN is at 19 with a creatinine of 0.9 and his sodium level of 135. Glucose was elevated at 474 and the patient's initial lactic acid level was 2.1 drop down to 1.0. Troponin was at 0.05. ProBNP level was 622. The pro calcitonin level showed 0.14. Chest x- ray showed no acute abnormalities 01/20/2022, the patient is feeling better and she is currently on Decadron. Afebrile. Still on 4 L with a pulse ox of 92%. The white cell count is at 13.4 with a hemoglobin of 11. The inflammatory markers were ordered yesterday and the patient's LDH level was 987 and the CRP level is at 6.3. Renal function stable with a creatinine of 1.07 and the BUN33. Blood sugar slightly elevated as the patient is currently on Decadron. Pro-calcitonin level is at 0.14. Objective - Vital Signs Vital signs: Vital Signs Temp 98.2 F 01/20/22 10:08 Pulse 60 01/20/22 10:08 Resp 18 01/20/22 10:08 BP 128/83 01/20/22 10:08 Pulse Ox 92 L 01/20/22 10:08 FiO2 21 01/19/22 07:24 Intake & Output 01/19/22 01/20/22 01/20/22 18:59 06:59 18:59 Intake Total 550 Balance 550 Intake: Intake, IV Titration 100 Amount cefTRIAXone 2 gm In 100 Sodium Chloride 0.9% 50 ml @ 100 mls/hr IVPB Q24H KAREN Rx#:[id number] Oral 450 Other: # Voids 3 - Exam GENERAL EXAM: Alert, very pleasant, 71-year-old white female, on 4 L of O2 nasal cannula the patient is breathing comfortably and her breathing is nonlabored this point in time. HEAD: Normocephalic/atraumatic. EYES: Normal reaction of pupils, equal size. Conjunctiva pink, sclera white. NOSE: Clear with pink turbinates. THROAT: No erythema or exudates. NECK: No masses, no JVD, no thyroid enlargement, no adenopathy. CHEST: No chest wall deformity. Symmetrical expansion. Diminished breath sounds along with some limited crackles in lung bases bilaterally. LUNGS: Equal air entry with no crackles, wheeze, rhonchi or dullness. CVS: Regular rate and rhythm, normal S1 and S2, no gallops, no murmurs, no rubs ABDOMEN: Soft, nontender. No hepatosplenomegaly, normal bowel sounds, no guarding or rigidity. EXTREMITIES: No clubbing, no edema, no cyanosis, 2+ pulses and upper and lower extremities. MUSCULOSKELETAL: Muscle strength and tone normal. SPINE: No scoliosis or deformity SKIN: No rashes CENTRAL NERVOUS SYSTEM: Alert and oriented oriented 3 and the patient has no focal neurological deficits. PSYCHIATRIC: Alert and oriented -2. Appropriate affect. Intact judgment and insight. - Labs CBC & Chem 7: 01/20/22 08:54 01/20/22 08:54 Labs: Abnormal Lab Results - Last 24 Hours (Table) 01/18/22 01/19/22 01/19/22 Range/Units 21:56 13:19 20:30 WBC (3.8-10.6) k/uL RBC (3.80-5.40) m/uL Hgb (11.4-16.0) gm/dL MCV (80.0-100.0) fL MCHC (31.0-37.0) g/dL Neutrophils # (1.3-7.7) k/uL Sodium (137-145) mmol/L BUN (7-17) mg/dL Creatinine (0.52-1.04) mg/dL Glucose (74-99) mg/dL POC Glucose (mg/dL) 474 H 577 H (75-99) mg/dL Magnesium (1.6-2.3) mg/dL Lactate Dehydrogenase (313-618) U/L C-Reactive Protein (<1.0) mg/dL Total Protein (6.3-8.2) g/dL Albumin (3.5-5.0) g/dL Procalcitonin 0.14 H (0.02-0.09) ng/mL 01/19/22 01/19/22 01/20/22 Range/Units 20:32 20:43 05:56 WBC (3.8-10.6) k/uL RBC (3.80-5.40) m/uL Hgb (11.4-16.0) gm/dL MCV (80.0-100.0) fL MCHC (31.0-37.0) g/dL Neutrophils # (1.3-7.7) k/uL Sodium (137-145) mmol/L BUN (7-17) mg/dL Creatinine (0.52-1.04) mg/dL Glucose (74-99) mg/dL POC Glucose (mg/dL) 568 H 317 H (75-99) mg/dL Magnesium (1.6-2.3) mg/dL Lactate Dehydrogenase 987 H (313-618) U/L C-Reactive Protein 6.3 H (<1.0) mg/dL Total Protein (6.3-8.2) g/dL Albumin (3.5-5.0) g/dL Procalcitonin (0.02-0.09) ng/mL 01/20/22 01/20/22 01/20/22 Range/Units 08:54 08:54 11:40 WBC 13.4 H (3.8-10.6) k/uL RBC 3.57 L (3.80-5.40) m/uL Hgb 11.3 L (11.4-16.0) gm/dL MCV 103.9 H (80.0-100.0) fL MCHC 30.5 L (31.0-37.0) g/dL Neutrophils # 10.6 H (1.3-7.7) k/uL Sodium 136 L (137-145) mmol/L BUN 33 H (7-17) mg/dL Creatinine 1.07 H (0.52-1.04) mg/dL Glucose 237 H (74-99) mg/dL POC Glucose (mg/dL) 235 H (75-99) mg/dL Magnesium 2.4 H (1.6-2.3) mg/dL Lactate Dehydrogenase (313-618) U/L C-Reactive Protein (<1.0) mg/dL Total Protein 6.1 L (6.3-8.2) g/dL Albumin 3.0 L (3.5-5.0) g/dL Procalcitonin (0.02-0.09) ng/mL Microbiology - Last 24 Hours (Table) 01/19/22 02:05 Blood Culture - Preliminary Blood No Growth after 24 hours 01/19/22 01:50 Blood Culture - Preliminary Blood No Growth after 24 hours Assessment and Plan Plan: Acute COVID 19 infection. The patient became symptomatic approximately 2 weeks ago. No clear indication for pneumonia although this cannot be completely ruled out. For now, the patient is presenting with worsening shortness of breath. Note that the patient has not incidentally vaccination and she has had no previous COVID 19 infection and the patient has not received any outpatient treatment for this problem, clinically improving Chronic hypoxic respiratory failure still on 4 L of oxygen by nasal cannula COPD Diabetes mellitus type 2, blood sugars are elevated probably related to use of steroids that the patient was given prednisone and emergency department. She is currently on Levemir 8 units along with NovoLog sliding scale coverage Coronary artery disease with previous coronary stenting and previous coronary artery bypass surgery 2016, previous history of bypass surgery and coronary stenting History of acute ischemic stroke post TPA administration with adequate neurological recovery. This occurred back in March 2021. Hypertension Hyperlipidemia Previous history of ESBL producing UTI Obesity with a BMI of 41 Minimal troponin elevation, septal ischemia secondary to above Mild lactic acidosis, recovered Plan Keep the patient on 4 L per minute nasal cannula, no interval worsening in her oxygenation and chest x-ray showing improvement in the volume status on today's evaluation. Titrate oxygen flow to maintain a saturation above 90% Check inflammatory markers including LDH and CRP, both inflammatory markers are elevated and this will be monitored. Antibiotic coverage is empiric and there is no clear indication of a bacterial pneumonia and the protocol calcitonin was nonelevated Chest x-ray was reviewed from today Heparin subcu for DVT prophylaxis, d-dimer levels are low/ Gen. a medicine to control the blood sugar more tightly We'll continue to follow make further recommendations based on the progress.
--- NOTE | 2022-01-20 13:06 | CA ---
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 Audrey Ferrer, KHANH Procedure CPT: Indications: Covid, abnormal trops, LV function Cardiac Hx: Technical Quality: Fair Contrast 1: Total Dose (mL): Contrast 2: Total Dose (mL): MEASUREMENTS (Male / Female) Normal Values 2D ECHO LV Diastolic Diameter PLAX 4.5 cm 4.2 - 5.9 / 3.9 - 5.3 cm LV Systolic Diameter PLAX 3.7 cm IVS Diastolic Thickness 1.5 cm 0.6 - 1.0 / 0.6 - 0.9 cm LVPW Diastolic Thickness 1.5 cm 0.6 - 1.0 / 0.6 - 0.9 cm LV Relative Wall Thickness 0.7 RV Internal Dim ED PLAX 2.9 cm LA Systolic Diameter LX 3.8 cm 3.0 - 4.0 / 2.7 - 3.8 cm M-MODE Aortic Root Diameter MM 2.9 cm MV E Point Septal Separation 0.8 cm AV Cusp Separation MM 2.1 cm DOPPLER AV Peak Velocity 139.0 cm/s AV Peak Gradient 7.7 mmHg MV Area PHT 2.0 cm??? Mitral E Point Velocity 137.3 cm/s Mitral A Point Velocity 82.3 cm/s Mitral E to A Ratio 1.7 MV Deceleration Time 374.0 ms MV E' Velocity 2.7 cm/s Mitral E to MV E' Ratio 51.4 FINDINGS Left Ventricle Left ventricular ejection fraction is estimated at 55-60 %. Left ventricular cavity size normal. Moderate concentric left ventricular hypertrophy. Right Ventricle Normal right ventricular size and function. Unable to estimate the right ventricular systolic pressure. Right Atrium Normal right atrial size. Left Atrium Normal left atrial size. Mitral Valve Mitral valve thickened. Moderate mitral annular calcification. Aortic Valve Focal thickening of the aortic valve cusps. No aortic valve stenosis or regurgitation. Tricuspid Valve No evidence of pulmonary hypertension. Pulmonic Valve Mild pulmonic regurgitation. Pericardium Normal pericardium. Aorta Normal size aortic root and proximal ascending aorta. CONCLUSIONS Technically difficult study for interpretation Normal left ventricular dimension and systolic function Extremely calcified mitral valve and aortic valve Previewed by: Dr. Neri De Los Santos MD (Electronically Signed) Final Date: 20 Jan 2022 13:04
[2022-01-20 16:59] LABS: Glucose,Whole Blood 501 mg/dL (75-99)
[2022-01-20 17:06] LABS: Glucose,Whole Blood 442 mg/dL (75-99)
[2022-01-20 20:04] LABS: Appearance,Urine Clear (Clear); Bilirubin,Urine Negative (Negative); Blood,Urine Negative (Negative); Color,Urine Light Yellow; Glucose,Urine (UA) 4+ (Negative); Ketones,Urine Negative (Negative); Leukocyte Esterase,Urine Negative (Negative); Mucus,Urine Rare /hpf; Nitrite,Urine Negative (Negative); Protein,Urine 1+ (Negative); RBC,Urine <1 /hpf (0-5); Specific Gravity,Urine 1.021 (1.001-1.035); Squamous Epithelial Cell,Urine 2 /hpf (0-4); Urobilinogen,Urine <2.0 mg/dL (<2.0); WBC,Urine 2 /hpf (0-5)
[2022-01-20 20:23] LABS: Glucose,Whole Blood 397 mg/dL (75-99)
[2022-01-20] MEDS ORDERED: INSULIN ASPART (NovoLOG) 100 UNIT/ML VIAL SQ ONE (21:29)
[2022-01-20] MEDS: INSULIN DETEMIR (LEVEMIR) 100 UNIT/ML SYR SQ SCH (22:26)
[2022-01-20] MEDS: METOPROLOL SUCCINATE (ER) 50 MG TAB.ER.24H PO SCH (22:27)
[2022-01-20] MEDS: VALSARTAN 80 MG TAB PO SCH (22:27)
[2022-01-20] MEDS: ATORVASTATIN 80 MG TAB PO SCH (22:27)
[2022-01-21 06:31] LABS: Glucose,Whole Blood 195 mg/dL (75-99)
[2022-01-21] MEDS: PANTOPRAZOLE 40 MG TABLET PO SCH (06:43)
[2022-01-21] MEDS: INSULIN ASPART (NovoLOG) 100 UNIT/ML VIAL SQ SCH ×4 (06:44→13:19)
[2022-01-21 07:03] VITALS: RESP 18; TEMP 97.9
[2022-01-21] MEDS: SYMBICORT 160-4.5 MCG INHALER INHALATION SCH (08:15)
[2022-01-21] MEDS: ALBUTEROL HFA INHALER INHALATION PRN ×2 (08:16→11:33)
[2022-01-21 09:18] LABS: C Reactive Protein 1.8 mg/dL (<1.0)
[2022-01-21] MEDS: ASCORBIC ACID 500 MG TAB PO SCH (09:18)
[2022-01-21] MEDS: CLOPIDOGREL 75 MG TAB PO SCH (09:18)
[2022-01-21] MEDS: CHOLECALCIFEROL 25 MCG (1000 IU) TABLET PO SCH (09:18)
[2022-01-21] MEDS: AZITHROMYCIN 500 MG TAB PO SCH (09:18)
[2022-01-21] MEDS: ZINC SULFATE 220 MG CAP PO SCH (09:18)
[2022-01-21] MEDS: ASPIRIN 81 MG PO SCH (09:18)
[2022-01-21] MEDS: amLODIPine 5 MG TAB PO SCH (09:18)
[2022-01-21] MEDS: HEPARIN SODIUM,PORCINE/PF 5,000 UNIT/0.5 ML SYRINGE SQ SCH (09:19)
[2022-01-21] MEDS: DEXAMETHASONE SOD PHOSPHATE 10 MG/ML 1 ML VIAL IVP SCH (09:19)
--- NOTE | 2022-01-21 10:46 | P.PN ---
Subjective HISTORY OF PRESENT ILLNESS: This is a 71 year old female with a past medical history significant for coronary artery disease with previous CABG, hypertension, hyperlipidemia, COPD, and former nicotine dependence. Patient follows in the office with Dr. Flannery but has not been seen in the office since December 2019. We have been asked to see the patient in consultation for elevated troponins. Patient examined at the bedside. * EKG reveals sinus mechanism with nonspecific ST-T wave changes * Chest xray there is some pulmonary interstitial edema which is increased compared to exam. No pleural fluid seen to suggest heart failure. This is consistent with acute pneumonia. Heart failure not excluded. * Laboratory data: WBC 11.4. Hemoglobin 11.7. Platelet count 261. D-dimer 0.78. Sodium 135. Potassium 4.1. BUN 19. Creatinine 0.92. Lactic acid 2.1. Troponin 0.053. ProBNP 622. * Current home cardiac medications include amlodipine 5 mg daily, valsartan 80 mg at night, metoprolol succinate 50 mg at night, Lasix 20 mg daily as needed, Plavix 75 mg daily, Lipitor 80 mg at night, aspirin 81 mg daily * Most recent echocardiogram obtained in November 2021 revealed ejection fraction 55-60%, * Cardiac catheterization history: 2017 revealing chronically occluded right coronary arteries with collaterals from the left system, progression of disease in the proximal and mid LAD, significant disease in the first obtuse marginal branch. 01/21 Patient states she is doing well and breathing is stable. She denies any chest pain or pressure. Echo shows EF 55-60% without significant valvular disease. Calcified aortic valve and mitral valve however no significant aortic or mitral stenosis. PHYSICAL EXAM: Thorough physical exam not completed secondary to limited evaluation/examination due to Covid19 ASSESSMENT: Covid 19 Abnormal troponin, suspect secondary to above, no evidence of acute coronary syndrome Acute hypoxic respiratory failure Coronary artery disease with previous CABG Hypertension Hyperlipidemia Diabetes PLAN: Echo shows preserved EF without significant valvular disease. Elevated troponins related to Covid 19 infection. Continue with current regimen. Okay for discharge from a cardiac standpoint. No further recommendations. Objective - Vital Signs Vital signs: Vital Signs Temp 97.9 F 01/21/22 04:00 Pulse 57 L 01/21/22 09:56 Resp 18 01/21/22 09:56 BP 160/70 01/21/22 09:53 Pulse Ox 100 01/21/22 09:53 FiO2 21 01/19/22 07:24 Intake & Output 01/20/22 01/21/22 01/21/22 18:59 06:59 18:59 Intake Total 842 1160 Balance 842 1160 Weight 95.5 kg Intake: IV 20 20 Invasive Line 1 20 20 Oral [id number] Other: Voiding Method Toilet Toilet Toilet # Voids 2 2 - Labs CBC & Chem 7: 01/20/22 08:54 01/20/22 08:54 Labs: Abnormal Lab Results - Last 24 Hours (Table) 01/18/22 01/20/22 01/20/22 Range/Units 21:56 11:40 16:58 POC Glucose (mg/dL) 235 H 501 H (75-99) mg/dL Hemoglobin A1c 10.6 H (0.0-6.0) % Lactate Dehydrogenase (313-618) U/L C-Reactive Protein (<1.0) mg/dL Urine Protein (Negative) Urine Glucose (UA) (Negative) Urine Mucus (None) /hpf 01/20/22 01/20/22 01/20/22 Range/Units 17:04 19:32 20:21 POC Glucose (mg/dL) 442 H 397 H (75-99) mg/dL Hemoglobin A1c (0.0-6.0) % Lactate Dehydrogenase (313-618) U/L C-Reactive Protein (<1.0) mg/dL Urine Protein 1+ H (Negative) Urine Glucose (UA) 4+ H (Negative) Urine Mucus Rare H (None) /hpf 01/21/22 01/21/22 Range/Units 06:29 08:43 POC Glucose (mg/dL) 195 H (75-99) mg/dL Hemoglobin A1c (0.0-6.0) % Lactate Dehydrogenase 797 H (313-618) U/L C-Reactive Protein 1.8 H (<1.0) mg/dL Urine Protein (Negative) Urine Glucose (UA) (Negative) Urine Mucus (None) /hpf Microbiology - Last 24 Hours (Table) 01/19/22 02:05 Blood Culture - Preliminary Blood No Growth after 48 hours 01/19/22 01:50 Blood Culture - Preliminary Blood No Growth after 48 hours
[2022-01-21 12:04] LABS: Glucose,Whole Blood 305 mg/dL (75-99)
--- NOTE | 2022-01-21 12:12 | P.PN ---
Subjective Progress Note Date: 01/21/22 71-year-old female patient with multiple medical problems and comorbidities, who is coming into the hospital because of two-week history of increased dyspnea, cough and congestion and worsening shortness of breath. She was getting progressively more weak and tired and fatigued. No change in taste or smell. No nausea vomiting or diarrhea. No headaches. No altered mentation. She is known to have chronic medical problems and chronic back pain without any new onset weakness. His been on oxygen at 4 L per minute nasal cannula at baseline. She came into the emergency and the patient tested positive for COVID 19. Note that the patient has not incidentally vaccination the past and the patient has not been infected with the virus in the past. The patient is currently on oxygen at 4 L per minute nasal cannula which is her baseline. She is known to have multiple medical problems and comorbidities as stated. Her white cell count at the time of admission was 11.4 with a hemoglobin of 11.7 and a platelet count of 261. Regulation profile was normal. D-dimer was 0.7. Her venous blood sample showed a pH of 7.37 with a pCO2 of 42. The BUN is at 19 with a creatinine of 0.9 and his sodium level of 135. Glucose was elevated at 474 and the patient's initial lactic acid level was 2.1 drop down to 1.0. Troponin was at 0.05. ProBNP level was 622. The pro calcitonin level showed 0.14. Chest x- ray showed no acute abnormalities 01/20/2022, the patient is feeling better and she is currently on Decadron. Afebrile. Still on 4 L with a pulse ox of 92%. The white cell count is at 13.4 with a hemoglobin of 11. The inflammatory markers were ordered yesterday and the patient's LDH level was 987 and the CRP level is at 6.3. Renal function stable with a creatinine of 1.07 and the BUN33. Blood sugar slightly elevated as the patient is currently on Decadron. Pro-calcitonin level is at 0.14. On today's evaluation of 01/21/2022, the patient has no new complaints. She is resting comfortably in bed. No interval worsening shortness of breath. In fact she is feeling better and she is ambulating. She remains on 4 L O2 nasal cannula which is her baseline. Echo showed preserved LV function without any valvular abnormalities. The patient is being considered for discharge as the patient has been cleared from the cardiac standpoint. Follow pulmonary standpoint, she is stable and there is been no interval worsening or development of any respiratory insufficiency we'll compromise. No nausea. No vomiting. Diarrhea. No other significant events overnight. The patient remains on Decadron 6 mg on a daily basis IV. She is on Levemir insulin along with 8 units of NovoLog with meals and a slight scale coverage. Objective - Vital Signs Vital signs: Vital Signs Temp 97.9 F 01/21/22 04:00 Pulse 57 L 01/21/22 09:56 Resp 18 01/21/22 09:56 BP 160/70 01/21/22 09:53 Pulse Ox 100 01/21/22 09:53 FiO2 21 01/19/22 07:24 Intake & Output 01/20/22 01/21/22 01/21/22 18:59 06:59 18:59 Intake Total 842 1160 Balance 842 1160 Weight 95.5 kg Intake: IV 20 20 Invasive Line 1 20 20 Oral [id number] Other: Voiding Method Toilet Toilet Toilet # Voids 2 2 - Exam GENERAL EXAM: Alert, very pleasant, 71-year-old white female, on 4 L of O2 nasal cannula the patient is breathing comfortably and her breathing is nonlabored this point in time. HEAD: Normocephalic/atraumatic. EYES: Normal reaction of pupils, equal size. Conjunctiva pink, sclera white. NOSE: Clear with pink turbinates. THROAT: No erythema or exudates. NECK: No masses, no JVD, no thyroid enlargement, no adenopathy. CHEST: No chest wall deformity. Symmetrical expansion. Diminished breath sounds along with some limited crackles in lung bases bilaterally. LUNGS: Equal air entry with no crackles, wheeze, rhonchi or dullness. CVS: Regular rate and rhythm, normal S1 and S2, no gallops, no murmurs, no rubs ABDOMEN: Soft, nontender. No hepatosplenomegaly, normal bowel sounds, no guarding or rigidity. EXTREMITIES: No clubbing, no edema, no cyanosis, 2+ pulses and upper and lower extremities. MUSCULOSKELETAL: Muscle strength and tone normal. SPINE: No scoliosis or deformity SKIN: No rashes CENTRAL NERVOUS SYSTEM: Alert and oriented oriented 3 and the patient has no focal neurological deficits. PSYCHIATRIC: Alert and oriented -2. Appropriate affect. Intact judgment and insight. - Labs CBC & Chem 7: 01/20/22 08:54 01/20/22 08:54 Labs: Abnormal Lab Results - Last 24 Hours (Table) 01/18/22 01/20/22 01/20/22 Range/Units 21:56 16:58 17:04 POC Glucose (mg/dL) 501 H 442 H (75-99) mg/dL Hemoglobin A1c 10.6 H (0.0-6.0) % Lactate Dehydrogenase (313-618) U/L C-Reactive Protein (<1.0) mg/dL Urine Protein (Negative) Urine Glucose (UA) (Negative) Urine Mucus (None) /hpf 01/20/22 01/20/22 01/21/22 Range/Units 19:32 20:21 06:29 POC Glucose (mg/dL) 397 H 195 H (75-99) mg/dL Hemoglobin A1c (0.0-6.0) % Lactate Dehydrogenase (313-618) U/L C-Reactive Protein (<1.0) mg/dL Urine Protein 1+ H (Negative) Urine Glucose (UA) 4+ H (Negative) Urine Mucus Rare H (None) /hpf 01/21/22 01/21/22 Range/Units 08:43 12:01 POC Glucose (mg/dL) 305 H (75-99) mg/dL Hemoglobin A1c (0.0-6.0) % Lactate Dehydrogenase 797 H (313-618) U/L C-Reactive Protein 1.8 H (<1.0) mg/dL Urine Protein (Negative) Urine Glucose (UA) (Negative) Urine Mucus (None) /hpf Microbiology - Last 24 Hours (Table) 01/19/22 02:05 Blood Culture - Preliminary Blood No Growth after 48 hours 01/19/22 01:50 Blood Culture - Preliminary Blood No Growth after 48 hours Assessment and Plan Plan: Acute COVID 19 infection. The patient became symptomatic approximately 2 weeks ago. No clear indication for pneumonia although this cannot be completely ruled out. For now, the patient is presenting with worsening shortness of breath. Note that the patient has not incidentally vaccination and she has had no previous COVID 19 infection and the patient has not received any outpatient treatment for this problem, clinically improving Chronic hypoxic respiratory failure still on 4 L of oxygen by nasal cannula COPD Diabetes mellitus type 2, blood sugars are elevated probably related to use of steroids that the patient was given prednisone and emergency department. She is currently on Levemir 8 units along with NovoLog sliding scale coverage Coronary artery disease with previous coronary stenting and previous coronary artery bypass surgery 2016, previous history of bypass surgery and coronary stenting History of acute ischemic stroke post TPA administration with adequate neurological recovery. This occurred back in March 2021. Hypertension Hyperlipidemia Previous history of ESBL producing UTI Obesity with a BMI of 41 Minimal troponin elevation, septal ischemia secondary to above Mild lactic acidosis, recovered Plan Clinically stable Cleared from the cardiac standpoint Pulmonary status is stable and the patient can be considered for discharge Keep the patient on 4 L per minute nasal cannula, no interval worsening in her oxygenation and chest x-ray showing improvement in the volume status from yesterday. Titrate oxygen flow to maintain a saturation above 90% Check inflammatory markers including LDH and CRP, and the levels are improving Antibiotic coverage is empiric and there is no clear indication of a bacterial pneumonia and the protocol calcitonin was nonelevated, this can be stopped Chest x-ray was reviewed from today Heparin subcu for DVT prophylaxis, d-dimer levels are low/ Gen. a medicine to control the blood sugar more tightly consider discharging this patient home today on home O2 at 4 L and the patient has home O2 to the followed up on outpatient basis. This will be discussed with the medical team.
[2022-01-21 13:19] VITALS: BP 136/63; PULSE 68
--- NOTE | 2022-01-21 17:38 | P.PN ---
Subjective Progress Note Date: 01/20/22 71 years old female with past medical history of sthma, Coronary Artery Disease (CAD), , Heart dis, COPD, CVA/TIA, Dementia, Diabetes Mellitus, Hyperlipidemia, Hypertension, diabetic nephropathy ESBL UTI, coronary artery disease status post CABG and stenting Patient has been complaining of from progressive dyspnea over the last 2 weeks with no resolution with little cough and the patella phlegm but no chest pain. No diarrhea or vomiting or dysuria. No headache or weakness or numbness. L4 mild left shoulder pain but with no history of trauma no restriction of movement. Back pain but no weakness. She denies smoking, alcohol or illicit drugs. She is on home oxygen of 4 L/m and her pest control specialist Dr. Kayden Pastor looks sta she has mild leukocytosis of 11.4, rest of the CBC is unremarkable. INR 0.9, d-dimer slightly elevated at 0.78. BMP and liver enzymes are unremarkable. Troponin elevated 0.05 ble and patient is afebrile. Patient is saturating 93% on room air. EKG showing normal sinus rhythm at 92 with LVH criteria and no significant ST-T changes. ProBNP is 622. Coronary artery is detected. Influenza virus is negative. In ED she was started on antibiotic and prednisone. chest x-ray: There is some pulmonary interstitial edema which is increased compared to old exam. Consistent with acute pneumonia. Objective - Vital Signs Vital signs: Vital Signs Temp 98.3 F 01/20/22 13:24 Pulse 59 L 01/20/22 13:24 Resp 18 01/20/22 13:24 BP 105/51 01/20/22 13:24 Pulse Ox 96 01/20/22 13:24 FiO2 21 01/19/22 07:24 Intake & Output 01/19/22 01/20/22 01/20/22 18:59 06:59 18:59 Intake Total 550 Balance 550 Intake: Intake, IV Titration 100 Amount cefTRIAXone 2 gm In 100 Sodium Chloride 0.9% 50 ml @ 100 mls/hr IVPB Q24H [facility] Rx#:[id number] Oral 450 Other: # Voids 3 - Exam GENERAL: The patient is alert and oriented x3, not in any acute distress. Well developed, well nourished. HEENT: Pupils are round and equally reacting to light. EOMI. No scleral icterus. No conjunctival pallor. Normocephalic, atraumatic. No pharyngeal erythema. No thyromegaly. CARDIOVASCULAR: S1 and S2 present. No murmurs, rubs, or gallops. PULMONARY: Chest is clear to auscultation, no wheezing or crackles. ABDOMEN: Soft, nontender, nondistended, normoactive bowel sounds. No palpable organomegaly. MUSCULOSKELETAL: No joint swelling or deformity. EXTREMITIES: No cyanosis, clubbing, or pedal edema. NEUROLOGICAL: Gross neurological examination did not reveal any focal deficits. SKIN: No rashes. No petechiae - Labs CBC & Chem 7: 01/20/22 08:54 01/20/22 08:54 Labs: Abnormal Lab Results - Last 24 Hours (Table) 01/18/22 01/19/22 01/19/22 Range/Units 21:56 13:19 20:30 WBC (3.8-10.6) k/uL RBC (3.80-5.40) m/uL Hgb (11.4-16.0) gm/dL MCV (80.0-100.0) fL MCHC (31.0-37.0) g/dL Neutrophils # (1.3-7.7) k/uL Sodium (137-145) mmol/L BUN (7-17) mg/dL Creatinine (0.52-1.04) mg/dL Glucose (74-99) mg/dL POC Glucose (mg/dL) 474 H 577 H (75-99) mg/dL Magnesium (1.6-2.3) mg/dL Lactate Dehydrogenase (313-618) U/L C-Reactive Protein (<1.0) mg/dL Total Protein (6.3-8.2) g/dL Albumin (3.5-5.0) g/dL Procalcitonin 0.14 H (0.02-0.09) ng/mL 01/19/22 01/19/22 01/20/22 Range/Units 20:32 20:43 05:56 WBC (3.8-10.6) k/uL RBC (3.80-5.40) m/uL Hgb (11.4-16.0) gm/dL MCV (80.0-100.0) fL MCHC (31.0-37.0) g/dL Neutrophils # (1.3-7.7) k/uL Sodium (137-145) mmol/L BUN (7-17) mg/dL Creatinine (0.52-1.04) mg/dL Glucose (74-99) mg/dL POC Glucose (mg/dL) 568 H 317 H (75-99) mg/dL Magnesium (1.6-2.3) mg/dL Lactate Dehydrogenase 987 H (313-618) U/L C-Reactive Protein 6.3 H (<1.0) mg/dL Total Protein (6.3-8.2) g/dL Albumin (3.5-5.0) g/dL Procalcitonin (0.02-0.09) ng/mL 01/20/22 01/20/22 01/20/22 Range/Units 08:54 08:54 11:40 WBC 13.4 H (3.8-10.6) k/uL RBC 3.57 L (3.80-5.40) m/uL Hgb 11.3 L (11.4-16.0) gm/dL MCV 103.9 H (80.0-100.0) fL MCHC 30.5 L (31.0-37.0) g/dL Neutrophils # 10.6 H (1.3-7.7) k/uL Sodium 136 L (137-145) mmol/L BUN 33 H (7-17) mg/dL Creatinine 1.07 H (0.52-1.04) mg/dL Glucose 237 H (74-99) mg/dL POC Glucose (mg/dL) 235 H (75-99) mg/dL Magnesium 2.4 H (1.6-2.3) mg/dL Lactate Dehydrogenase (313-618) U/L C-Reactive Protein (<1.0) mg/dL Total Protein 6.1 L (6.3-8.2) g/dL Albumin 3.0 L (3.5-5.0) g/dL Procalcitonin (0.02-0.09) ng/mL Microbiology - Last 24 Hours (Table) 01/19/22 02:05 Blood Culture - Preliminary Blood No Growth after 24 hours 01/19/22 01:50 Blood Culture - Preliminary Blood No Growth after 24 hours Assessment and Plan Assessment: Bilateral community acquired infection Covid infection Elevated troponin Chronic hypoxic respiratory failure on 4 L oxygen at home. Mild left shoulder pain with no history of trauma. No need for x-ray shows tr eatment conservatively and keep monitoring. Hypertension Hyperlipidemia Diabetes mellitus, type II Diabetic nephropathy History of ESBL UTI History of coronary artery disease status post CABG and stenting History of asthma Morbid Obesity with BMI of 41 This is a pleasant 71 years old female who presents with bilateral pneumonia, Covid infection Continue with ceftriaxone and Zithromax. Sputum culture Bronchodilator as needed Pulmonary consult Continue with vitamin C, vitamin D and zinc Continue with aspirin and Plavix and cardiology consult Check hemoglobin A1c, procalcitonin Labs and medication were reviewed.. Continue same treatment. Continue with symptomatic treatment. Resume home medication. Monitor lytes and vitals. DVT and GI prophylaxis. Further recommendations depends on the clinical course of the patient DVT prophylaxis: Subcutaneous heparin GI Prophylaxis: PPI PT/OT: Pending Prognosis is guarded
--- NOTE | 2022-01-21 17:44 | P.DS ---
Providers Date of admission: 01/19/22 00:20 Expected date of discharge: 01/21/22 Attending physician: Bernard King MD Consults: 01/19/22 09:54 Consult Physician Urgent Consulting Provider: Haven Monique Consult Reason/Comments: pna Do you want consulting provider notified?: Yes Primary care physician: [facility] Course: This is a pleasant 71 years old female with past medical history of sthma, Coronary Artery Disease (CAD), , Heart dis, COPD, CVA/TIA, Dementia, Diabetes Mellitus, Hyperlipidemia, Hypertension, diabetic nephropathy ESBL UTI, coronary artery disease status post CABG and stenting Patient has been complaining of from progressive dyspnea over the last 2 weeks with no resolution with little cough and the patella phlegm but no chest pain. No diarrhea or vomiting or dysuria. No headache or weakness or numbness. L4 mild left shoulder pain but with no history of trauma no restriction of movement. Back pain but no weakness. She denies smoking, alcohol or illicit drugs. She is on home oxygen of 4 L/m and her field observer Dr. Kayden Pastor looks sta she has mild leukocytosis of 11.4, rest of the CBC is unremarkable. INR 0.9, d-dimer slightly elevated at 0.78. BMP and liver enzymes are unremarkable. Troponin elevated 0.05 ble and patient is afebrile. Patient is saturating 93% on room air. EKG showing normal sinus rhythm at 92 with LVH criteria and no significant ST-T changes. ProBNP is 622. Coronary artery is detected. Influenza virus is negative. In ED she was started on antibiotic and prednisone. chest x-ray: There is some pulmonary interstitial edema which is increased compared to old exam. Consistent with acute pneumonia. Bilateral community acquired infection Covid infection Elevated troponin Chronic hypoxic respiratory failure on 4 L oxygen at home. Mild left shoulder pain with no history of trauma. No need for x-ray shows treatment conservatively and keep monitoring. Hypertension Hyperlipidemia Diabetes mellitus, type II Diabetic nephropathy History of ESBL UTI History of coronary artery disease status post CABG and stenting History of asthma Morbid Obesity with BMI of 41 Plan: This is a pleasant 71 years old female who presents with bilateral pneumonia, Covid infection Continue with ceftriaxone and Zithromax. Sputum culture Bronchodilator as needed Pulmonary consult Continue with vitamin C, vitamin D and zinc Continue with aspirin and Plavix and cardiology consult Check hemoglobin A1c, procalcitonin Labs and medication were reviewed.. Continue same treatment. Continue with symptomatic treatment. Resume home medication. Monitor lytes and vitals. DVT and GI prophylaxis. Further recommendations depends on the clinical course of the patient DVT prophylaxis: Subcutaneous heparin Patient responded well to treatment; was evaluated by pulmonology and antibiotic treatment was not recommended; patient was discharged home in stable condition Patient Condition at Discharge: Fair Plan - Discharge Summary Discharge Rx Participant: No New Discharge Prescriptions: New Dexamethasone [Decadron] 6 mg PO DAILY 7 Days #7 tablet Continue Metoprolol Succinate [Toprol XL] 50 mg PO HS Furosemide [Lasix] 20 mg PO DAILY PRN PRN Reason: Edema hydrOXYzine HCL [Atarax] 25 mg PO TID PRN PRN Reason: Itching/anxiety Atorvastatin [Lipitor] 80 mg PO HS Insulin Lispro [humaLOG Kwikpen] 15 units SQ AC-TID traMADol HCL [Ultram] 50 mg PO BID PRN PRN Reason: Pain Valsartan 80 mg PO HS Clopidogrel Bisulfate [Plavix] 75 mg PO DAILY Aspirin EC [Ecotrin Low Dose] 81 mg PO DAILY Insulin Glargine,Hum.rec.anlog [Lantus Solostar Pen] 80 unit SQ HS Pantoprazole [Protonix] 40 mg PO AC-BID #60 tab Acetaminophen Tab [Tylenol] 650 mg PO Q6HR PRN tab PRN Reason: Mild Pain Or Fever > 100.5 Budesonide-Formot 160-4.5 Mcg [Symbicort 160-4.5 Mcg Inhaler] 2 puff INHALATION RT-BID Ipratropium-Albuterol Nebulize [Duoneb 0.5 mg-3 mg/3 ml Soln] 3 ml INHALATION RT-Q6H PRN PRN Reason: Shortness Of Breath Zinc Sulfate [Orazinc] 220 mg PO DAILY #30 cap Ascorbic Acid [Vitamin C] 1,000 mg PO DAILY #60 tab Cholecalciferol [Vitamin D3 (25 Mcg = 1000 Iu)] 50 mcg PO DAILY #60 tablet amLODIPine [Norvasc] 5 mg PO DAILY #30 tab Discharge Medication List Metoprolol Succinate [Toprol XL] 50 mg PO HS 08/30/18 [History] Furosemide [Lasix] 20 mg PO DAILY PRN 05/19/20 [History] Atorvastatin [Lipitor] 80 mg PO HS 09/23/20 [History] hydrOXYzine HCL [Atarax] 25 mg PO TID PRN 09/23/20 [History] Insulin Lispro [humaLOG Kwikpen] 15 units SQ AC-TID 11/11/20 [History] traMADol HCL [Ultram] 50 mg PO BID PRN 02/07/21 [History] Budesonide-Formot 160-4.5 Mcg [Symbicort 160-4.5 Mcg Inhaler] 2 puff INHALATION RT-BID 04/12/21 [History] Aspirin EC [Ecotrin Low Dose] 81 mg PO DAILY 12/12/21 [History] Clopidogrel Bisulfate [Plavix] 75 mg PO DAILY 12/12/21 [History] Insulin Glargine,Hum.rec.anlog [Lantus Solostar Pen] 80 unit SQ HS 12/12/21 [History] Valsartan 80 mg PO HS 12/12/21 [History] Acetaminophen Tab [Tylenol] 650 mg PO Q6HR PRN tab 12/15/21 [Rx] Ipratropium-Albuterol Nebulize [Duoneb 0.5 mg-3 mg/3 ml Soln] 3 ml INHALATION RT-Q6H PRN 12/15/21 [History] Pantoprazole [Protonix] 40 mg PO AC-BID #60 tab 12/15/21 [Rx] Ascorbic Acid [Vitamin C] 1,000 mg PO DAILY #60 tab 01/06/22 [Rx] Cholecalciferol [Vitamin D3 (25 Mcg = 1000 Iu)] 50 mcg PO DAILY #60 tablet 01/06/22 [Rx] Zinc Sulfate [Orazinc] 220 mg PO DAILY #30 cap 01/06/22 [Rx] amLODIPine [Norvasc] 5 mg PO DAILY #30 tab 01/06/22 [Rx] Dexamethasone [Decadron] 6 mg PO DAILY 7 Days #7 tablet 01/21/22 [Rx] Follow up Appointment(s)/Referral(s): Elvira Gonzales MD [Primary Care Provider] - 1-2 days (please call and make appointment) Patient Instructions/Handouts: Heart Attack (DC), COVID-19 (Coronavirus Disease 2019) (DC) Discharge Disposition: HOME SELF-CARE
== END 2022-01-21 15:41 | disposition home or self-care (01) | DRG 177 ==
LOC: EC 20:30 → 3SCARD 01-19 00:20
PROVIDERS: ADMIT Internal Medicine; ATTEND Internal Medicine
DX: U07.1 COVID-19 (principal); J18.9 Pneumonia, unspecified organism; J96.21 Acute and chronic respiratory failure with hypoxia; Z68.41 Body mass index [BMI] 40.0-44.9, adult; J44.0 Chronic obstructive pulmonary disease with (acute) lower respiratory infection; I11.0 Hypertensive heart disease with heart failure; Z79.82 Long term (current) use of aspirin; Z79.899 Other long term (current) drug therapy; Z79.4 Long term (current) use of insulin; M25.512 Pain in left shoulder; E11.21 Type 2 diabetes mellitus with diabetic nephropathy; E66.01 Morbid (severe) obesity due to excess calories; Z99.81 Dependence on supplemental oxygen; E78.5 Hyperlipidemia, unspecified; F03.90 Unspecified dementia, unspecified severity, without behavioral disturbance, psychotic disturbance, mood disturbance, and anxiety; I25.10 Atherosclerotic heart disease of native coronary artery without angina pectoris; Z95.1 Presence of aortocoronary bypass graft; Z79.02 Long term (current) use of antithrombotics/antiplatelets; Z79.51 Long term (current) use of inhaled steroids; Z87.891 Personal history of nicotine dependence; G89.29 Other chronic pain; I25.2 Old myocardial infarction; Z95.5 Presence of coronary angioplasty implant and graft; Z87.440 Personal history of urinary (tract) infections; Z86.73 Personal history of transient ischemic attack (TIA), and cerebral infarction without residual deficits
CPT/HCPCS: 36415; 71045; 71046; 80053; 81001; 82803; 83036; 83605; 83615; 83735; 83880; 84145; 84484; 85025; 85379; 85610; 85730; 86140; 87040; 87502; 87635; 93005; 93306; 94640; 96365; 96366; 99285

== ENCOUNTER 2022-02-07 15:53 | Inpatient (IN) | payer MEDICARE ==
[2022-02-07 16:01] LABS: Glucose,Whole Blood 195 mg/dL (75-99)
--- NOTE | 2022-02-07 16:12 | XR ---
EXAMINATION TYPE: XR chest 1V portable DATE OF EXAM: 02/07/2022 COMPARISON: Chest x-ray 01/20/2022 HISTORY: Difficulty breathing, hypotension TECHNIQUE: Single frontal view of the chest is obtained. FINDINGS: Patient is rotated. Patient is post median sternotomy. Cardiac mediastinal silhouette is s table, heart may be enlarged. No evident pneumothorax or pleural effusion. Exam somewhat limited tech nically. Aorta is dense. IMPRESSION: Cardiomegaly, no definite acute abnormality, consider PA and lateral chest x-ray for bet ter evaluation
[2022-02-07] MEDS ORDERED: SODIUM CHLORIDE 0.9% 1,000 ML IV ONE (16:32)
[2022-02-07 16:44] LABS: Basophils # (A) 0.1 k/uL (0-0.2); Basophils % (A) 0 %; Eosinophils # (A) 0.3 k/uL (0-0.7); Eosinophils % (A) 2 %; HCT 38.5 % (34.0-46.0); HGB 12.5 gm/dL (11.4-16.0); Lymphocytes # (A) 2.3 k/uL (1.0-4.8); Lymphocytes % (A) 17 %; MCH 32.3 pg (25.0-35.0); MCHC 32.5 g/dL (31.0-37.0); MCV 99.4 fL (80.0-100.0); Monocytes # (A) 0.6 k/uL (0-1.0); Monocytes % (A) 4 %; Neutrophils # (A) 10.3 k/uL (1.3-7.7); Neutrophils % (A) 74 %; Platelet Count 392 k/uL (150-450); RBC 3.87 m/uL (3.80-5.40); RDW 13.5 % (11.5-15.5); WBC 13.9 k/uL (3.8-10.6)
[2022-02-07 16:55] LABS: Albumin 3.3 g/dL (3.5-5.0); Calcium 8.7 mg/dL (8.4-10.2); INR 0.9 (<1.2); Partial Thromboplastin Time 20.9 sec (22.0-30.0); Prothrombin Time 9.8 sec (9.0-12.0); Total Protein 6.2 g/dL (6.3-8.2)
[2022-02-07 17:16] LABS: VBG PH 7.32 (7.31-7.41)
[2022-02-07 17:28] LABS: Magnesium 1.6 mg/dL (1.6-2.3)
[2022-02-07] MEDS ORDERED: MAGNESIUM SULFATE-D5W PMX 1 GM in DEXTROSE/WATER 1 100ML.BAG IVPB ONE (18:26)
[2022-02-07] MEDS ORDERED: methylPREDNISolone SOD SUCCI 125 MG/2 ML VIAL IV STA (18:26)
--- NOTE | 2022-02-07 19:03 | ED ---
SOB HPI - General Chief Complaint: Shortness of Breath Stated Complaint: DONALD Time Seen by Provider: 02/07/22 15:55 Source: patient, EMS Mode of arrival: EMS Limitations: no limitations - History of Present Illness Initial Comments: 71-year-old female with past medical history of COPD, asthma and heart failure, diabetes who presents emergency department from the orthopedic office. Daughter is at bedside and provides a history. States that her mother seemed extremely tired when they were sitting in the waiting room. They went into the exam room and the patient did not appear to have good color to her face. She seemed like she was struggling to breathe. EMS was called and transported the patient to the hospital on a nasal cannula. Daughter states that she normally does wear oxygen at night. He denies any recent illnesses. Home care nurse was at the house this morning and felt the patient was acting appropriately. She denies any worsening lower extremity edema. No chest pain. No other alleviating, precipitating or modifying factors - Related Data Home Medications Medication Instructions Recorded Confirmed Metoprolol Succinate [Toprol XL] 50 mg PO HS 08/30/18 02/07/22 Furosemide [Lasix] 20 mg PO DAILY PRN 05/19/20 02/07/22 Atorvastatin [Lipitor] 80 mg PO HS 09/23/20 02/07/22 hydrOXYzine HCL [Atarax] 25 mg PO TID PRN 09/23/20 02/07/22 Insulin Lispro [humaLOG Kwikpen] 15 units SQ AC-TID 11/11/20 02/07/22 traMADol HCL [Ultram] 50 mg PO BID PRN 02/07/21 02/07/22 Budesonide-Formot 160-4.5 Mcg 2 puff INHALATION RT-BID 04/12/21 02/07/22 [Symbicort 160-4.5 Mcg Inhaler] Aspirin EC [Ecotrin Low Dose] 81 mg PO DAILY 12/12/21 02/07/22 Clopidogrel Bisulfate [Plavix] 75 mg PO DAILY 12/12/21 02/07/22 Insulin Glargine,Hum.rec.anlog 80 unit SQ HS 12/12/21 02/07/22 [Lantus Solostar Pen] Valsartan 80 mg PO HS 12/12/21 02/07/22 Ipratropium-Albuterol Nebulize 3 ml INHALATION RT-Q6H PRN 12/15/21 02/07/22 [Duoneb 0.5 mg-3 mg/3 ml Soln] Previous Rx's Medication Instructions Recorded Acetaminophen Tab [Tylenol] 650 mg PO Q6HR PRN tab 12/15/21 Pantoprazole [Protonix] 40 mg PO AC-BID #60 tab 12/15/21 Ascorbic Acid [Vitamin C] 1,000 mg PO DAILY #60 tab 01/06/22 Cholecalciferol [Vitamin D3 (25 50 mcg PO DAILY #60 tablet 01/06/22 Mcg = 1000 Iu)] Zinc Sulfate [Orazinc] 220 mg PO DAILY #30 cap 01/06/22 amLODIPine [Norvasc] 5 mg PO DAILY #30 tab 01/06/22 Dexamethasone [Decadron] 6 mg PO DAILY 7 Days #7 tablet 01/21/22 Allergies Allergy/AdvReac Type Severity Reaction Status Date / Time codeine AdvReac Nausea & Verified 02/07/22 17:52 Vomiting Review of Systems ROS Statement: Those systems with pertinent positive or pertinent negative responses have been documented in the HPI. ROS Other: All systems not noted in ROS Statement are negative. 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, R caratid artery disease, valvular disease, pulmonary htn, bronchitis, home oxygen prn, poor vision/pt cannot recall reason, UTIs, rash/itching Last Myocardial Infarction Date:: 2014 History of Any Multi-Drug Resistant Organisms: ESBL Date of last positivie culture/infection: 04/15/21 MDRO Source:: ESBL URINE Past Surgical History: Cholecystectomy, Coronary Bypass/CABG, Heart Catheterization With Stent Additional Past Surgical History / Comment(s): PCI/stents in 2009 and 2014, 2017 CABG 3 vessel then sternal debridement for infection/removal of hardware, colonoscopy, bilateral cataract removals. Past Anesthesia/Blood Transfusion Reactions: No Reported Reaction Additional Past Anesthesia/Blood Transfusion Reaction / Comment(s): Claustrophobic Date of Last Stent Placement:: 2014 Past Psychological History: No Psychological Hx Reported Smoking Status: Former smoker Past Alcohol Use History: None Reported Past Drug Use History: None Reported - Past Family History Father Family Medical History: Coronary Artery Disease (CAD), Myocardial Infarction ([place]) Additional Family Medical History / Comment(s): STENT, OPEN HEART SURGERY Mother Additional Family Medical History / Comment(s): DEPRESSION, mental illness General Exam Limitations: altered mental status General appearance: alert, lethargic Head exam: Present: atraumatic, normocephalic, normal inspection Eye exam: Present: normal appearance, PERRL, EOMI. Absent: scleral icterus, conjunctival injection, periorbital swelling ENT exam: Present: mucous membranes dry Neck exam: Present: normal inspection. Absent: tenderness, meningismus, lymphadenopathy Respiratory exam: Present: wheezes, accessory muscle use, decreased breath sounds Cardiovascular Exam: Present: regular rate, normal rhythm, normal heart sounds. Absent: systolic murmur, diastolic murmur, rubs, gallop, clicks Back exam: Present: normal inspection Neurological exam: Present: altered Psychiatric exam: Present: anxious, flat affect Skin exam: Present: warm, dry, intact, normal color. Absent: rash Course Vital Signs 02/07/22 02/07/22 02/07/22 15:57 16:23 17:12 Temperature Pulse Rate 77 Pulse Rate [ Pulse Oximetery ] Respiratory 26 H 18 Rate Blood Pressure 104/45 Blood Pressure [Right Arm] O2 Sat by Pulse 99 Oximetry Fraction of 40 Inspired Oxygen (FIO2) 02/07/22 02/07/22 02/07/22 17:56 18:26 18:47 Temperature 99 F Pulse Rate 80 77 Pulse Rate [ Pulse Oximetery ] Respiratory 18 22 Rate Blood Pressure 102/89 113/84 Blood Pressure [Right Arm] O2 Sat by Pulse 100 100 Oximetry Fraction of 40 Inspired Oxygen (FIO2) 02/07/22 02/07/22 02/07/22 19:11 19:38 20:27 Temperature 98.7 F Pulse Rate 78 Pulse Rate [ 90 Pulse Oximetery ] Respiratory 18 Rate Blood Pressure Blood Pressure 139/56 [Right Arm] O2 Sat by Pulse 98 Oximetry Fraction of 40 Inspired Oxygen (FIO2) 02/07/22 02/07/22 02/08/22 20:33 21:25 00:57 Temperature Pulse Rate 80 71 97 Pulse Rate [ Pulse Oximetery ] Respiratory 20 20 Rate Blood Pressure 118/49 130/47 Blood Pressure [Right Arm] O2 Sat by Pulse 97 93 L Oximetry Fraction of Inspired Oxygen (FIO2) 02/08/22 02/08/22 02/08/22 04:51 08:18 10:47 Temperature Pulse Rate 67 73 76 Pulse Rate [ Pulse Oximetery ] Respiratory 20 28 H Rate Blood Pressure 142/65 106/58 Blood Pressure [Right Arm] O2 Sat by Pulse 99 95 Oximetry Fraction of Inspired Oxygen (FIO2) 02/08/22 02/08/22 02/08/22 10:58 15:31 15:41 Temperature Pulse Rate 77 84 85 Pulse Rate [ Pulse Oximetery ] Respiratory Rate Blood Pressure Blood Pressure [Right Arm] O2 Sat by Pulse Oximetry Fraction of Inspired Oxygen (FIO2) 02/08/22 16:00 Temperature Pulse Rate 93 Pulse Rate [ Pulse Oximetery ] Respiratory 18 Rate Blood Pressure 106/58 Blood Pressure [Right Arm] O2 Sat by Pulse 95 Oximetry Fraction of Inspired Oxygen (FIO2) Procedures - [place] Protocol (Time Out) Nurse: Sedrick Dominguez Medical Decision Making - Medical Decision Making Upon arrival patient was placed into trauma 3. A thorough history and physical exam was performed. Patient appears anxious and short of breath. She is placed on a BiPAP. IV is established and laboratory studies are conducted. Portable chest x-ray was performed. Lactic acid is 3.9. Troponin 0.058. Influenza is not detected. Covid is not detected as the patient recently had [place]. Chest x-ray is limited however has no acute abnormality. Patient does have improvement in her mentation on the BiPAP. ABG is ordered. Recommended admission for continued steroids and breathing treatments. Patient agreed to this and was admitted to [facility] - spoke with [place]. - Lab Data Result diagrams: 02/08/22 07:14 02/08/22 07:14 Lab Results 02/07/22 02/07/22 02/07/22 Range/Units 15:59 16:31 16:31 WBC 13.9 H (3.8-10.6) k/uL RBC 3.87 (3.80-5.40) m/uL Hgb 12.5 (11.4-16.0) gm/dL Hct 38.5 (34.0-46.0) % MCV 99.4 (80.0-100.0) fL MCH 32.3 (25.0-35.0) pg MCHC 32.5 (31.0-37.0) g/dL RDW 13.5 (11.5-15.5) % Plt Count 392 (150-450) k/uL MPV 8.0 Neutrophils % 74 % Lymphocytes % 17 % Monocytes % 4 % Eosinophils % 2 % Basophils % 0 % Neutrophils # 10.3 H (1.3-7.7) k/uL Lymphocytes # 2.3 (1.0-4.8) k/uL Monocytes # 0.6 (0-1.0) k/uL Eosinophils # 0.3 (0-0.7) k/uL Basophils # 0.1 (0-0.2) k/uL PT 9.8 (9.0-12.0) sec INR 0.9 (<1.2) APTT 20.9 L (22.0-30.0) sec VBG pH (7.31-7.41) VBG pCO2 (37-51) mmHg VBG HCO3 (24-28) mmol/L Sodium (137-145) mmol/L Potassium (3.5-5.1) mmol/L Chloride (98-107) mmol/L Carbon Dioxide (22-30) mmol/L Anion Gap mmol/L BUN (7-17) mg/dL Creatinine (0.52-1.04) mg/dL Est GFR (CKD-EPI)AfAm (>60 ml/min/1.73 sqM) Est GFR (CKD-EPI)NonAf (>60 ml/min/1.73 sqM) Glucose (74-99) mg/dL POC Glucose (mg/dL) 195 H (75-99) mg/dL POC Glu [employer] Worker ID Elizabeth Quintero Lactic Ac Sepsis Rflx Plasma Lactic Acid Dennis (0.7-2.0) mmol/L Calcium (8.4-10.2) mg/dL Magnesium (1.6-2.3) mg/dL Total Bilirubin (0.2-1.3) mg/dL AST (14-36) U/L ALT (4-34) U/L Alkaline Phosphatase (38-126) U/L Troponin I (0.000-0.034) ng/mL NT-Pro-B Natriuret Pep pg/mL Total Protein (6.3-8.2) g/dL Albumin (3.5-5.0) g/dL Influenza Type A RNA (Not Detectd) Influenza Type B (PCR) (Not Detectd) 02/07/22 02/07/22 02/07/22 Range/Units 16:31 16:31 16:31 WBC (3.8-10.6) k/uL RBC (3.80-5.40) m/uL Hgb (11.4-16.0) gm/dL Hct (34.0-46.0) % MCV (80.0-100.0) fL MCH (25.0-35.0) pg MCHC (31.0-37.0) g/dL RDW (11.5-15.5) % Plt Count (150-450) k/uL MPV Neutrophils % % Lymphocytes % % Monocytes % % Eosinophils % % Basophils % % Neutrophils # (1.3-7.7) k/uL Lymphocytes # (1.0-4.8) k/uL Monocytes # (0-1.0) k/uL Eosinophils # (0-0.7) k/uL Basophils # (0-0.2) k/uL PT (9.0-12.0) sec INR (<1.2) APTT (22.0-30.0) sec VBG pH (7.31-7.41) VBG pCO2 (37-51) mmHg VBG HCO3 (24-28) mmol/L Sodium 137 (137-145) mmol/L Potassium 4.0 (3.5-5.1) mmol/L Chloride 103 (98-107) mmol/L Carbon Dioxide 26 (22-30) mmol/L Anion Gap 8 mmol/L BUN 20 H (7-17) mg/dL Creatinine 1.19 H (0.52-1.04) mg/dL Est GFR (CKD-EPI)AfAm 53 (>60 ml/min/1.73 sqM) Est GFR (CKD-EPI)NonAf 46 (>60 ml/min/1.73 sqM) Glucose 189 H (74-99) mg/dL POC Glucose (mg/dL) (75-99) mg/dL POC Glu [employer] Worker ID Lactic Ac Sepsis Rflx Plasma Lactic Acid Dennis 3.9 H* (0.7-2.0) mmol/L Calcium 8.7 (8.4-10.2) mg/dL Magnesium 1.6 (1.6-2.3) mg/dL Total Bilirubin 1.0 (0.2-1.3) mg/dL AST 32 (14-36) U/L ALT 28 (4-34) U/L Alkaline Phosphatase 64 (38-126) U/L Troponin I 0.058 H* (0.000-0.034) ng/mL NT-Pro-B Natriuret Pep pg/mL Total Protein 6.2 L (6.3-8.2) g/dL Albumin 3.3 L (3.5-5.0) g/dL Influenza Type A RNA (Not Detectd) Influenza Type B (PCR) (Not Detectd) 02/07/22 02/07/22 02/07/22 Range/Units 16:31 16:31 17:10 WBC (3.8-10.6) k/uL RBC (3.80-5.40) m/uL Hgb (11.4-16.0) gm/dL Hct (34.0-46.0) % MCV (80.0-100.0) fL MCH (25.0-35.0) pg MCHC (31.0-37.0) g/dL RDW (11.5-15.5) % Plt Count (150-450) k/uL MPV Neutrophils % % Lymphocytes % % Monocytes % % Eosinophils % % Basophils % % Neutrophils # (1.3-7.7) k/uL Lymphocytes # (1.0-4.8) k/uL Monocytes # (0-1.0) k/uL Eosinophils # (0-0.7) k/uL Basophils # (0-0.2) k/uL PT (9.0-12.0) sec INR (<1.2) APTT (22.0-30.0) sec VBG pH 7.32 (7.31-7.41) VBG pCO2 53 H (37-51) mmHg VBG HCO3 26 (24-28) mmol/L Sodium (137-145) mmol/L Potassium (3.5-5.1) mmol/L Chloride (98-107) mmol/L Carbon Dioxide (22-30) mmol/L Anion Gap mmol/L BUN (7-17) mg/dL Creatinine (0.52-1.04) mg/dL Est GFR (CKD-EPI)AfAm (>60 ml/min/1.73 sqM) Est GFR (CKD-EPI)NonAf (>60 ml/min/1.73 sqM) Glucose (74-99) mg/dL POC Glucose (mg/dL) (75-99) mg/dL POC Glu [employer] Worker ID Lactic Ac Sepsis Rflx Plasma Lactic Acid Dennis (0.7-2.0) mmol/L Calcium (8.4-10.2) mg/dL Magnesium (1.6-2.3) mg/dL Total Bilirubin (0.2-1.3) mg/dL AST (14-36) U/L ALT (4-34) U/L Alkaline Phosphatase (38-126) U/L Troponin I (0.000-0.034) ng/mL NT-Pro-B Natriuret Pep 441 pg/mL Total Protein (6.3-8.2) g/dL Albumin (3.5-5.0) g/dL Influenza Type A RNA Not Detected (Not Detectd) Influenza Type B (PCR) Not Detected (Not Detectd) 02/07/22 Range/Units 17:30 WBC (3.8-10.6) k/uL RBC (3.80-5.40) m/uL Hgb (11.4-16.0) gm/dL Hct (34.0-46.0) % MCV (80.0-100.0) fL MCH (25.0-35.0) pg MCHC (31.0-37.0) g/dL RDW (11.5-15.5) % Plt Count (150-450) k/uL MPV Neutrophils % % Lymphocytes % % Monocytes % % Eosinophils % % Basophils % % Neutrophils # (1.3-7.7) k/uL Lymphocytes # (1.0-4.8) k/uL Monocytes # (0-1.0) k/uL Eosinophils # (0-0.7) k/uL Basophils # (0-0.2) k/uL PT (9.0-12.0) sec INR (<1.2) APTT (22.0-30.0) sec VBG pH (7.31-7.41) VBG pCO2 (37-51) mmHg VBG HCO3 (24-28) mmol/L Sodium (137-145) mmol/L Potassium (3.5-5.1) mmol/L Chloride (98-107) mmol/L Carbon Dioxide (22-30) mmol/L Anion Gap mmol/L BUN (7-17) mg/dL Creatinine (0.52-1.04) mg/dL Est GFR (CKD-EPI)AfAm (>60 ml/min/1.73 sqM) Est GFR (CKD-EPI)NonAf (>60 ml/min/1.73 sqM) Glucose (74-99) mg/dL POC Glucose (mg/dL) (75-99) mg/dL POC Glu [employer] Worker ID Lactic Ac Sepsis Rflx Y Plasma Lactic Acid Dennis (0.7-2.0) mmol/L Calcium (8.4-10.2) mg/dL Magnesium (1.6-2.3) mg/dL Total Bilirubin (0.2-1.3) mg/dL AST (14-36) U/L ALT (4-34) U/L Alkaline Phosphatase (38-126) U/L Troponin I (0.000-0.034) ng/mL NT-Pro-B Natriuret Pep pg/mL Total Protein (6.3-8.2) g/dL Albumin (3.5-5.0) g/dL Influenza Type A RNA (Not Detectd) Influenza Type B (PCR) (Not Detectd) - EKG Data EKG Comments: EKG demonstrates sinus rhythm with a left bundle branch block. Rate is 78. QRS 19. QTC of 424. No acute ST segment elevations. Baseline artifact. Critical Care Time Critical Care Time: Yes Critical Care Time: 35 minutes for bipap management Disposition Clinical Impression: COPD (chronic obstructive pulmonary disease), NSTEMI (non-ST elevated m yocardial infarction), BiPAP (biphasic positive airway pressure) dependence, Hypercarbia Disposition: ADMITTED IP TO THIS HOSP Condition: Stable Is patient prescribed a controlled substance at d/c from ED?: No Time of Disposition: 19:04 Decision to Admit Reason: Admit from EC Decision Date: 02/07/22 Decision Time: 19:04
[2022-02-07] MEDS ORDERED: NALOXONE 0.4 MG/ML 1 ML VIAL IV PRN (19:04)
[2022-02-07 19:29] LABS: ABG Base Excess 0.9 mmol/L; ABG HCO3 26 mmol/L (21-25); ABG Oxygen Saturation 98.8 % (94-97); ABG PCO2 45 mmHg (35-45); ABG PH 7.37 (7.35-7.45); ABG PO2 111 mmHg (83-108); ABG TCO2 28 mmol/L (19-24); Allen Test Performed? Yes
[2022-02-07] MEDS ORDERED: ACETAMINOPHEN TAB 325 MG TAB PO PRN (19:29)
[2022-02-07] MEDS ORDERED: FUROSEMIDE 20 MG TAB PO PRN (19:29)
[2022-02-07] MEDS ORDERED: hydrOXYzine HCL 25 MG TAB PO PRN (19:29)
[2022-02-07] MEDS: SYMBICORT 160-4.5 MCG INHALER INHALATION SCH (19:47)
[2022-02-07] MEDS ORDERED: IPRATROPIUM-ALBUTEROL 3 ML NEB INHALATION PRN (19:47)
[2022-02-07] MEDS ORDERED: IPRATROPIUM-ALBUTEROL 3 ML NEB INHALATION SCH (20:00)
[2022-02-07] MEDS: IPRATROPIUM-ALBUTEROL 3 ML NEB INHALATION SCH (20:26)
[2022-02-07 21:31] LABS: Glucose,Whole Blood 255 mg/dL (75-99)
[2022-02-07] MEDS: ATORVASTATIN 80 MG TAB PO SCH (21:34)
[2022-02-07] MEDS: METOPROLOL SUCCINATE (ER) 50 MG TAB.ER.24H PO SCH (21:34)
[2022-02-07] MEDS: INSULIN DETEMIR (LEVEMIR) 100 UNIT/ML SYR SQ SCH (22:10)
[2022-02-07] MEDS: VALSARTAN 80 MG TAB PO SCH (22:11)
[2022-02-08] MEDS: methylPREDNISolone SOD SUCCI 40 MG/ML 1 ML VIAL IV SCH ×2 (00:50→08:42)
[2022-02-08 07:37] LABS: Glucose,Whole Blood 590 mg/dL (75-99)
[2022-02-08 07:37] LABS: Glucose,Whole Blood 535 mg/dL (75-99)
[2022-02-08 07:51] LABS: Basophils % (A) 0 %; Eosinophils % (A) 0 %; HCT 41.8 % (34.0-46.0); HGB 12.8 gm/dL (11.4-16.0); Hypochromasia Slight; Lymphocytes # (A) 0.7 k/uL (1.0-4.8); Lymphocytes % (A) 6 %; MCH 31.1 pg (25.0-35.0); MCHC 30.5 g/dL (31.0-37.0); MCV 101.7 fL (80.0-100.0); Mean Platelet Volume 7.7; Monocytes # (A) 0.2 k/uL (0-1.0); Monocytes % (A) 2 %; Neutrophils # (A) 11.1 k/uL (1.3-7.7); Neutrophils % (A) 92 %; Platelet Count 345 k/uL (150-450); RBC 4.11 m/uL (3.80-5.40); RDW 12.5 % (11.5-15.5); WBC 12.1 k/uL (3.8-10.6)
[2022-02-08 08:03] LABS: Calcium 8.6 mg/dL (8.4-10.2)
[2022-02-08] MEDS: PANTOPRAZOLE 40 MG TABLET PO SCH ×2 (08:11→18:48)
[2022-02-08] MEDS: INSULIN ASPART (NovoLOG) 100 UNIT/ML VIAL SQ SCH ×6 (08:11→20:09)
[2022-02-08 08:16] LABS: Potassium 5.3 mmol/L (3.5-5.1)
[2022-02-08] MEDS: SYMBICORT 160-4.5 MCG INHALER INHALATION SCH ×3 (08:27→19:12)
[2022-02-08] MEDS: IPRATROPIUM-ALBUTEROL 3 ML NEB INHALATION SCH ×5 (08:27→19:09)
[2022-02-08] MEDS: ASPIRIN 81 MG PO SCH (09:42)
[2022-02-08] MEDS: amLODIPine 5 MG TAB PO SCH (09:42)
[2022-02-08] MEDS: CLOPIDOGREL 75 MG TAB PO SCH (09:42)
[2022-02-08] MEDS: SODIUM CHLORIDE 0.9% 1,000 ML IV SCH ×2 (09:52→18:48)
[2022-02-08 12:13] LABS: Glucose,Whole Blood 582 mg/dL (75-99)
[2022-02-08] MEDS ORDERED: INSULIN ASPART (NovoLOG) 100 UNIT/ML VIAL SQ SCH (12:30)
--- NOTE | 2022-02-08 12:44 | P.CNPUL ---
History of Present Illness Consult date: 02/08/22 Requesting physician: Kelly Tinoco Reason for consult: dyspnea Chief complaint: Dyspnea, weakness History of present illness: This is a 71-year-old white female patient with advanced COPD on home oxygen at 4 L/m on a regular basis, with baseline FEV1 of 54% of predicted, diabetes mellitus type 2, CAD with previous stenting and previous coronary artery bypass surgery, history of CVA with previous TPA administration in March 2021, hypertension, hyperlipidemia, morbid obesity, previous history of ESBL urinary tract infection, and a recent history of COVID-19 infection in December 2021. Patient was not vaccinated against COVID 19. In early December she was hospitalized with acute COVID-19 infection, acute hyperosmolar hyperglycemic syndrome, and hyponatremia. Patient was outside the window for a few the inpatient treatments, and was just treated with Decadron, insulin infusion, IV hydration, supportive treatment. She recovered, and was discharged home on 01/21/2022. Yesterday on 02/07/2022 patient came in by EMS for evaluation of difficulty breathing, and weakness. Home care nurse was at the residence yesterday, and patient was acting appropriately. No chest pain, no fever or chills, no worsening lower extremity edema. Chest x-ray showed cardiomegaly, no evident pneumothorax. Initial blood work showed that cell count of 13.9, hemoglobin of 12.5, INR of 0.9, electrolytes are within normal limits, BUN is 20 creatinine is 1.19, lactic acid is 3.9, LFTs are within normal limits, troponin is 0.05H, proBNP is 441, influenza A and B were negative, troponins were 0.054, and 0.046. Lactic acid was 3.2, patient with significant respiratory distress, and she was placed on BiPAP support with pressures of 12 and 6 and FiO2 of 40%. In addition patient reports frequent bouts of diarrhea at home, and cough, no hemoptysis. No chest pain. This morning she has been transitioned to nasal cannula, she is breathing comfortably, she is on 4 L of oxygen which she normally wears at home on a regular basis, she is awake and oriented 3, she is answering questions appropriately, she was started on IV steroids for acute exacerbation of COPD however she developed significant steroid-induced hyperglycemia, her breathing is significantly improved this morning, and she appears to be breathing comfortably, no significant rhonchi wheezing or coughing. Review of Systems All systems: negative Constitutional: Reports weakness, Denies chills, Denies fever Eyes: denies blurred vision, denies pain Ears, nose, mouth and throat: Denies headache, Denies sore throat Cardiovascular: Denies chest pain, Denies shortness of breath Respiratory: Reports dyspnea, Denies cough Gastrointestinal: Denies abdominal pain, Denies diarrhea, Denies nausea, Denies vomiting Genitourinary: Denies dysuria, Denies hematuria Musculoskeletal: Denies myalgias Integumentary: Denies pruritus, Denies rash Neurological: Denies numbness, Denies weakness Psychiatric: Denies anxiety, Denies depression Endocrine: Denies fatigue, Denies weight change Past Medical History Past Medical History: Asthma, Coronary Artery Disease (CAD), Chest Pain / Angina, Heart Failure, COPD, CVA/TIA, Dementia, Diabetes Mellitus, Hyperlipidemia, Hypertension, Myocardial Infarction ([place]), Pneumonia, Respiratory Disorder, Syncope, Vascular Disorder Additional Past Medical History / Comment(s): IDDM type II, neuropathy bilateral feet, 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, R caratid artery disease, valvular disease, pulmonary htn, bronchitis, home oxygen prn, poor vision/pt cannot recall reason, UTIs, rash/itching Last Myocardial Infarction Date:: 2014 History of Any Multi-Drug Resistant Organisms: ESBL Date of last positivie culture/infection: 04/15/21 MDRO Source:: ESBL URINE Past Surgical History: Cholecystectomy, Coronary Bypass/CABG, Heart Catheterization With Stent Additional Past Surgical History / Comment(s): PCI/stents in 2009 and 2014, 2016 CABG 3 vessel then sternal debridement for infection/removal of hardware, colonoscopy, bilateral cataract removals. Past Anesthesia/Blood Transfusion Reactions: No Reported Reaction Additional Past Anesthesia/Blood Transfusion Reaction / Comment(s): Claustrophobic Date of Last Stent Placement:: 2014 Past Psychological History: No Psychological Hx Reported Smoking Status: Former smoker Past Alcohol Use History: None Reported Past Drug Use History: None Reported - Past Family History Father Family Medical History: Coronary Artery Disease (CAD), Myocardial Infarction ([place]) Additional Family Medical History / Comment(s): STENT, OPEN HEART SURGERY Mother Additional Family Medical History / Comment(s): DEPRESSION, mental illness Medications and Allergies Home Medications Medication Instructions Recorded Confirmed Type Metoprolol Succinate [Toprol XL] 50 mg PO HS 08/30/18 02/07/22 History Furosemide [Lasix] 20 mg PO DAILY PRN 05/19/20 02/07/22 History Atorvastatin [Lipitor] 80 mg PO HS 09/23/20 02/07/22 History hydrOXYzine HCL [Atarax] 25 mg PO TID PRN 09/23/20 02/07/22 History Insulin Lispro [humaLOG Kwikpen] 15 units SQ AC-TID 11/11/20 02/07/22 History traMADol HCL [Ultram] 50 mg PO BID PRN 02/07/21 02/07/22 History Budesonide-Formot 160-4.5 Mcg 2 puff INHALATION RT-BID 04/12/21 02/07/22 History [Symbicort 160-4.5 Mcg Inhaler] Aspirin EC [Ecotrin Low Dose] 81 mg PO DAILY 12/12/21 02/07/22 History Clopidogrel Bisulfate [Plavix] 75 mg PO DAILY 12/12/21 02/07/22 History Insulin Glargine,Hum.rec.anlog 80 unit SQ HS 12/12/21 02/07/22 History [Lantus Solostar Pen] Valsartan 80 mg PO HS 12/12/21 02/07/22 History Acetaminophen Tab [Tylenol] 650 mg PO Q6HR PRN tab 12/15/21 02/07/22 Rx Ipratropium-Albuterol Nebulize 3 ml INHALATION RT-Q6H PRN 12/15/21 02/07/22 History [Duoneb 0.5 mg-3 mg/3 ml Soln] Pantoprazole [Protonix] 40 mg PO AC-BID #60 tab 12/15/21 02/07/22 Rx Ascorbic Acid [Vitamin C] 1,000 mg PO DAILY #60 tab 01/06/22 02/07/22 Rx Cholecalciferol [Vitamin D3 (25 50 mcg PO DAILY #60 tablet 01/06/22 02/07/22 Rx Mcg = 1000 Iu)] Zinc Sulfate [Orazinc] 220 mg PO DAILY #30 cap 01/06/22 02/07/22 Rx amLODIPine [Norvasc] 5 mg PO DAILY #30 tab 01/06/22 02/07/22 Rx Dexamethasone [Decadron] 6 mg PO DAILY 7 Days #7 tablet 01/21/22 02/07/22 Rx Allergies Allergy/AdvReac Type Severity Reaction Status Date / Time codeine AdvReac Nausea & Verified 02/07/22 17:52 Vomiting Physical Exam Vitals: Vital Signs Temp Pulse Resp BP Pulse Ox FiO2 02/08/22 10:58 77 02/08/22 10:47 76 02/08/22 08:18 73 28 H 106/58 95 02/08/22 04:51 67 20 142/65 99 02/08/22 00:57 97 20 130/47 93 L 02/07/22 21:25 71 20 118/49 97 02/07/22 20:33 80 02/07/22 20:27 78 02/07/22 19:11 40 02/07/22 18:47 77 22 113/84 100 02/07/22 18:26 99 F 80 18 102/89 100 02/07/22 17:56 40 02/07/22 17:12 18 02/07/22 16:23 40 02/07/22 15:57 77 26 H 104/45 99 Intake and Output 02/07/22 02/08/22 02/08/22 22:59 06:59 14:59 Other: Weight 103.7 kg GENERAL EXAM: Awake oriented 3, 71-year-old female, on 4 L of oxygen, pulse ox of 97% resting on the [facility] comfortable in no apparent distress. HEAD: Normocephalic/atraumatic. EYES: Normal reaction of pupils, equal size. Conjunctiva pink, sclera white. NOSE: Clear with pink turbinates. THROAT: No erythema or exudates. NECK: No masses, no JVD, no thyroid enlargement, no adenopathy. CHEST: No chest wall deformity. Symmetrical expansion. LUNGS: Equal air entry with no crackles, wheeze, rhonchi or dullness. CVS: Regular rate and rhythm, normal S1 and S2, no gallops, no murmurs, no rubs ABDOMEN: Soft, nontender. No hepatosplenomegaly, normal bowel sounds, no guarding or rigidity. EXTREMITIES: No clubbing, no edema, no cyanosis, 2+ pulses and upper and lower extremities. MUSCULOSKELETAL: Muscle strength and tone normal. SPINE: No scoliosis or deformity SKIN: No rashes CENTRAL NERVOUS SYSTEM: Alert and oriented -3. No focal deficits, tone is normal in all 4 extremities. PSYCHIATRIC: Alert and oriented -3. Appropriate affect. Intact judgment and insight. Results - Laboratory Findings CBC and BMP: 02/08/22 07:14 02/08/22 07:14 ABG ABG pH 7.37 (7.35-7.45) 02/07/22 19:27 ABG pCO2 45 mmHg (35-45) 02/07/22 19:27 ABG pO2 111 mmHg (83-108) H 02/07/22 19:27 ABG O2 Saturation 98.8 % (94-97) H 02/07/22 19:27 PT/INR, D-dimer PT 9.8 sec (9.0-12.0) 02/07/22 16:31 INR 0.9 (<1.2) 02/07/22 16:31 Abnormal lab findings: Abnormal Labs 02/07/22 02/07/22 02/07/22 15:59 16:31 16:31 WBC 13.9 H MCV MCHC Neutrophils # 10.3 H Lymphocytes # APTT 20.9 L ABG pO2 ABG HCO3 ABG Total CO2 ABG O2 Saturation VBG pCO2 Sodium Potassium BUN Creatinine Glucose POC Glucose (mg/dL) 195 H Plasma Lactic Acid Dennis Troponin I Total Protein Albumin 02/07/22 02/07/22 02/07/22 16:31 16:31 16:31 WBC MCV MCHC Neutrophils # Lymphocytes # APTT ABG pO2 ABG HCO3 ABG Total CO2 ABG O2 Saturation VBG pCO2 Sodium Potassium BUN 20 H Creatinine 1.19 H Glucose 189 H POC Glucose (mg/dL) Plasma Lactic Acid Dennis 3.9 H* Troponin I 0.058 H* Total Protein 6.2 L Albumin 3.3 L 02/07/22 02/07/22 02/07/22 16:31 19:27 20:05 WBC MCV MCHC Neutrophils # Lymphocytes # APTT ABG pO2 111 H ABG HCO3 26 H ABG Total CO2 28 H ABG O2 Saturation 98.8 H VBG pCO2 53 H Sodium Potassium BUN Creatinine Glucose POC Glucose (mg/dL) Plasma Lactic Acid Dennis Troponin I 0.054 H* Total Protein Albumin 02/07/22 02/07/22 02/07/22 20:05 21:30 22:30 WBC MCV MCHC Neutrophils # Lymphocytes # APTT ABG pO2 ABG HCO3 ABG Total CO2 ABG O2 Saturation VBG pCO2 Sodium Potassium BUN Creatinine Glucose POC Glucose (mg/dL) 255 H Plasma Lactic Acid Dennis 3.2 H* Troponin I 0.046 H* Total Protein Albumin 02/08/22 02/08/22 02/08/22 00:48 07:14 07:14 WBC 12.1 H MCV 101.7 H MCHC 30.5 L Neutrophils # 11.1 H Lymphocytes # 0.7 L APTT ABG pO2 ABG HCO3 ABG Total CO2 ABG O2 Saturation VBG pCO2 Sodium 134 L Potassium 5.3 H BUN 31 H Creatinine 1.26 H Glucose 556 H* POC Glucose (mg/dL) Plasma Lactic Acid Dennis 3.2 H* Troponin I Total Protein Albumin 02/08/22 02/08/22 02/08/22 07:14 07:35 07:36 WBC MCV MCHC Neutrophils # Lymphocytes # APTT ABG pO2 ABG HCO3 ABG Total CO2 ABG O2 Saturation VBG pCO2 Sodium Potassium BUN Creatinine Glucose POC Glucose (mg/dL) 535 H 590 H Plasma Lactic Acid Dennis 2.6 H* Troponin I Total Protein Albumin 02/08/22 12:12 WBC MCV MCHC Neutrophils # Lymphocytes # APTT ABG pO2 ABG HCO3 ABG Total CO2 ABG O2 Saturation VBG pCO2 Sodium Potassium BUN Creatinine Glucose POC Glucose (mg/dL) 582 H Plasma Lactic Acid Dennis Troponin I Total Protein Albumin - Diagnostic Findings Chest x-ray: report reviewed, image reviewed Assessment and Plan Plan: #1. Acute exacerbation of COPD, improved since admission. Chest x-ray showed cardiomegaly, no pneumothorax, or pleural effusion. Influenza screen was negative, patient does have a recent history of COVID-19 pneumonia #2. Recent hospitalization for COVID-19 infection, with possibility of COVID-19 pneumonia. Patient was treated conservatively with steroids, anticoagulation, multivitamins, she is on non-vaccinated adult against COVID-19. #3. Steroid-induced hyperglycemia #4. Dehydration #5. Generalized medical debility, patient had 2 recent hospitalizations in December 2021 for COVID-19 related infection #6. Lactic acidosis, rule out possibility of infection #7. Troponin leak, rule out possibility of non-ST elevated myocardial infarction #8. History of hypertension #9. Hyperlipidemia #10. Diabetes mellitus type 2 #11. Degenerative lumbar anterior vertebral disc disease #12. Previous history of [place] #13. History of severe COPD with FEV1 of 54% predicted on home oxygen at 4 L Plan: Patient is tolerating nasal cannula Breathing has improved since last night No wheezing, no coughing, We will discontinue systemic steroids this patient developed significant steroid-induced hyperglycemia We will add IV fluids with 0.9 normal saline at a rate of 150 ML per hour Hyperglycemia management per primary care physician Continue nebulized bronchodilators We'll continue to follow I have personally seen and examined the patient, performed the documentation and the assessment and plan as written. Number of minutes spent on the visit: [15] Time with Patient: Greater than 30
--- NOTE | 2022-02-08 15:25 | P.HPIM ---
History of Present Illness H&P Date: 02/08/22 Chief Complaint: Shortness of breath Patient is a 71-year-old female presented on history of COPD on home oxygen at 4 L via nasal cannula, history of CVA/TIA, hypertension, diabetes type 2, history of FL, bilateral peripheral neuropathy, peripheral vascular disease, pulmonary hypertension, history of coronary artery bypass graft and stent placement in 2 sisters smoking was brought to ER by her daughter due to worsening shortness of breath and weakness. Denied any worsening cough or sputum production. No fever no chills. No nausea vomiting or abdominal pain or diarrhea. Patient states that she did have loose bowel movement this morning otherwise. No dizziness or lightheadedness. On admission patient was hypoxic and was placed on BiPAP. Patient was recently admitted to the hospital due to acute code 19 infection, hyponatremia and acute hyperosmolar hyperglycemic state. Patient was discharged home on 01/01/2022. Chest x-ray showed cardiomegaly and no definite acute abnormality. Laboratory data showed WBC 13.9 hemoglobin 12.5 and platelets 392 ABG showed pH 7.37 pCO2 45, PaO2 111 Sodium 137 potassium 4.0 chloride 103 bicarb is 26 BUN 20 and creatinine 1.19 and blood sugar 189 Lactic acid 3.9 and troponin 0.058 and proBNP 441. Ordered with reported. Inf luenza A and B-. Patient was started on IV steroids in the ER and continued on breathing treatments. Patient's blood sugar was greater than 500 this morning. Review of Systems Constitutional: Patient denies any fever or chills . No generalized weakness or weight loss. Abdomen: Patient denied nausea vomiting and diarrhea and abdominal pain. Cardiovascular: Patient denies any chest pain or short of breath no palpitations. Respiratory: patient denied any cough is from production. No shortness of breath Neurologic: Patient denied any numbness or tingling headache. Musculoskeletal: Patient denies any complaints of joint swelling or deformity. Skin: Negative Psychiatric: Negative Endocrine: No heat or cold intolerance. No recent weight gain. Genitourinary: No dysuria or hematuria. All other 14 point ROS negative except the above Past Medical History Past Medical History: Asthma, Coronary Artery Disease (CAD), Chest Pain / Angina, Heart Failure, COPD, CVA/TIA, Dementia, Diabetes Mellitus, Hyperlipidemia, Hypertension, Myocardial Infarction (FL), Pneumonia, Respiratory Disorder, Syncope, Vascular Disorder Additional Past Medical History / Comment(s): IDDM type II, neuropathy bilateral feet, 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, R caratid artery disease, valvular disease, pulmonary htn, bronchitis, home oxygen prn, poor vision/pt cannot recall reason, UTIs, rash/itching Last Myocardial Infarction Date:: 2014 History of Any Multi-Drug Resistant Organisms: ESBL Date of last positivie culture/infection: 04/15/21 MDRO Source:: ESBL URINE Past Surgical History: Cholecystectomy, Coronary Bypass/CABG, Heart Catheterization With Stent Additional Past Surgical History / Comment(s): PCI/stents in 2009 and 2014, 2016 CABG 3 vessel then sternal debridement for infection/removal of hardware, colonoscopy, bilateral cataract removals. Past Anesthesia/Blood Transfusion Reactions: No Reported Reaction Additional Past Anesthesia/Blood Transfusion Reaction / Comment(s): Claustrophobic Date of Last Stent Placement:: 2014 Past Psychological History: No Psychological Hx Reported Smoking Status: Former smoker Past Alcohol Use History: None Reported Past Drug Use History: None Reported - Past Family History Father Family Medical History: Coronary Artery Disease (CAD), Myocardial Infarction (FL) Additional Family Medical History / Comment(s): STENT, OPEN HEART SURGERY Mother Additional Family Medical History / Comment(s): DEPRESSION, mental illness Medications and Allergies Home Medications Medication Instructions Recorded Confirmed Type Metoprolol Succinate [Toprol XL] 50 mg PO HS 08/30/18 02/07/22 History Furosemide [Lasix] 20 mg PO DAILY PRN 05/19/20 02/07/22 History Atorvastatin [Lipitor] 80 mg PO HS 09/23/20 02/07/22 History hydrOXYzine HCL [Atarax] 25 mg PO TID PRN 09/23/20 02/07/22 History Insulin Lispro [humaLOG Kwikpen] 15 units SQ AC-TID 11/11/20 02/07/22 History traMADol HCL [Ultram] 50 mg PO BID PRN 02/07/21 02/07/22 History Budesonide-Formot 160-4.5 Mcg 2 puff INHALATION RT-BID 04/12/21 02/07/22 History [Symbicort 160-4.5 Mcg Inhaler] Aspirin EC [Ecotrin Low Dose] 81 mg PO DAILY 12/12/21 02/07/22 History Clopidogrel Bisulfate [Plavix] 75 mg PO DAILY 12/12/21 02/07/22 History Insulin Glargine,Hum.rec.anlog 80 unit SQ HS 12/12/21 02/07/22 History [Lantus Solostar Pen] Valsartan 80 mg PO HS 12/12/21 02/07/22 History Acetaminophen Tab [Tylenol] 650 mg PO Q6HR PRN tab 12/15/21 02/07/22 Rx Ipratropium-Albuterol Nebulize 3 ml INHALATION RT-Q6H PRN 12/15/21 02/07/22 History [Duoneb 0.5 mg-3 mg/3 ml Soln] Pantoprazole [Protonix] 40 mg PO AC-BID #60 tab 12/15/21 02/07/22 Rx Ascorbic Acid [Vitamin C] 1,000 mg PO DAILY #60 tab 01/06/22 02/07/22 Rx Cholecalciferol [Vitamin D3 (25 50 mcg PO DAILY #60 tablet 01/06/22 02/07/22 Rx Mcg = 1000 Iu)] Zinc Sulfate [Orazinc] 220 mg PO DAILY #30 cap 01/06/22 02/07/22 Rx amLODIPine [Norvasc] 5 mg PO DAILY #30 tab 01/06/22 02/07/22 Rx Dexamethasone [Decadron] 6 mg PO DAILY 7 Days #7 tablet 01/21/22 02/07/22 Rx Allergies Allergy/AdvReac Type Severity Reaction Status Date / Time codeine AdvReac Nausea & Verified 02/07/22 17:52 Vomiting Physical Exam Vitals: Vital Signs Temp Pulse Resp BP Pulse Ox FiO2 02/08/22 08:18 73 28 H 106/58 95 02/08/22 04:51 67 20 142/65 99 02/08/22 00:57 97 20 130/47 93 L 02/07/22 21:25 71 20 118/49 97 02/07/22 20:33 80 02/07/22 20:27 78 02/07/22 19:11 40 02/07/22 18:47 77 22 113/84 100 02/07/22 18:26 99 F 80 18 102/89 100 02/07/22 17:56 40 02/07/22 17:12 18 02/07/22 16:23 40 02/07/22 15:57 77 26 H 104/45 99 Intake and Output 02/07/22 02/08/22 02/08/22 22:59 06:59 14:59 Other: Weight 103.7 kg PHYSICAL EXAMINATION: Patient is lying in the bed comfortably, no acute distress, awake alert and oriented. Mildly obese.. HEENT: Normocephalic. Neck is supple. Pupils reactive. Nostrils clear. Oral cavity is moist. Neck reveals no JVD, carotid bruits, or thyromegaly. CHEST EXAMINATION: Trachea is central. Symmetrical expansion. Bibasilar diminished sounds. No wheezing. Lung robert clear to auscultation and percussion. CARDIAC: Normal S1, S2 with no gallops. No murmurs ABDOMEN: Soft. Bowel sounds normal. No organomegaly. No abdominal bruits. Extremities: reveal no edema. No clubbing or cyanosis Neurologically awake, alert, oriented x3 with well-coordinated movements. No focal deficits noted Skin: No rash or skin lesions. Psychiatric: Coperative. Nonsuicidal Musculoskeletal: No joint swelling or deformity. Normal range of motion. Results CBC & Chem 7: 02/08/22 07:14 02/08/22 07:14 Labs: Abnormal Lab Results - Last 24 Hours (Table) 02/07/22 02/07/22 02/07/22 Range/Units 15:59 16:31 16:31 WBC 13.9 H (3.8-10.6) k/uL MCV (80.0-100.0) fL MCHC (31.0-37.0) g/dL Neutrophils # 10.3 H (1.3-7.7) k/uL Lymphocytes # (1.0-4.8) k/uL APTT 20.9 L (22.0-30.0) sec ABG pO2 (83-108) mmHg ABG HCO3 (21-25) mmol/L ABG Total CO2 (19-24) mmol/L ABG O2 Saturation (94-97) % VBG pCO2 (37-51) mmHg Sodium (137-145) mmol/L Potassium (3.5-5.1) mmol/L BUN (7-17) mg/dL Creatinine (0.52-1.04) mg/dL Glucose (74-99) mg/dL POC Glucose (mg/dL) 195 H (75-99) mg/dL Plasma Lactic Acid Dennis (0.7-2.0) mmol/L Troponin I (0.000-0.034) ng/mL Total Protein (6.3-8.2) g/dL Albumin (3.5-5.0) g/dL 02/07/22 02/07/22 02/07/22 Range/Units 16:31 16:31 16:31 WBC (3.8-10.6) k/uL MCV (80.0-100.0) fL MCHC (31.0-37.0) g/dL Neutrophils # (1.3-7.7) k/uL Lymphocytes # (1.0-4.8) k/uL APTT (22.0-30.0) sec ABG pO2 (83-108) mmHg ABG HCO3 (21-25) mmol/L ABG Total CO2 (19-24) mmol/L ABG O2 Saturation (94-97) % VBG pCO2 (37-51) mmHg Sodium (137-145) mmol/L Potassium (3.5-5.1) mmol/L BUN 20 H (7-17) mg/dL Creatinine 1.19 H (0.52-1.04) mg/dL Glucose 189 H (74-99) mg/dL POC Glucose (mg/dL) (75-99) mg/dL Plasma Lactic Acid Dennis 3.9 H* (0.7-2.0) mmol/L Troponin I 0.058 H* (0.000-0.034) ng/mL Total Protein 6.2 L (6.3-8.2) g/dL Albumin 3.3 L (3.5-5.0) g/dL 02/07/22 02/07/22 02/07/22 Range/Units 16:31 19:27 20:05 WBC (3.8-10.6) k/uL MCV (80.0-100.0) fL MCHC (31.0-37.0) g/dL Neutrophils # (1.3-7.7) k/uL Lymphocytes # (1.0-4.8) k/uL APTT (22.0-30.0) sec ABG pO2 111 H (83-108) mmHg ABG HCO3 26 H (21-25) mmol/L ABG Total CO2 28 H (19-24) mmol/L ABG O2 Saturation 98.8 H (94-97) % VBG pCO2 53 H (37-51) mmHg Sodium (137-145) mmol/L Potassium (3.5-5.1) mmol/L BUN (7-17) mg/dL Creatinine (0.52-1.04) mg/dL Glucose (74-99) mg/dL POC Glucose (mg/dL) (75-99) mg/dL Plasma Lactic Acid Dennis (0.7-2.0) mmol/L Troponin I 0.054 H* (0.000-0.034) ng/mL Total Protein (6.3-8.2) g/dL Albumin (3.5-5.0) g/dL 02/07/22 02/07/22 02/07/22 Range/Units 20:05 21:30 22:30 WBC (3.8-10.6) k/uL MCV (80.0-100.0) fL MCHC (31.0-37.0) g/dL Neutrophils # (1.3-7.7) k/uL Lymphocytes # (1.0-4.8) k/uL APTT (22.0-30.0) sec ABG pO2 (83-108) mmHg ABG HCO3 (21-25) mmol/L ABG Total CO2 (19-24) mmol/L ABG O2 Saturation (94-97) % VBG pCO2 (37-51) mmHg Sodium (137-145) mmol/L Potassium (3.5-5.1) mmol/L BUN (7-17) mg/dL Creatinine (0.52-1.04) mg/dL Glucose (74-99) mg/dL POC Glucose (mg/dL) 255 H (75-99) mg/dL Plasma Lactic Acid Dennis 3.2 H* (0.7-2.0) mmol/L Troponin I 0.046 H* (0.000-0.034) ng/mL Total Protein (6.3-8.2) g/dL Albumin (3.5-5.0) g/dL 02/08/22 02/08/22 02/08/22 Range/Units 00:48 07:14 07:14 WBC 12.1 H (3.8-10.6) k/uL MCV 101.7 H (80.0-100.0) fL MCHC 30.5 L (31.0-37.0) g/dL Neutrophils # 11.1 H (1.3-7.7) k/uL Lymphocytes # 0.7 L (1.0-4.8) k/uL APTT (22.0-30.0) sec ABG pO2 (83-108) mmHg ABG HCO3 (21-25) mmol/L ABG Total CO2 (19-24) mmol/L ABG O2 Saturation (94-97) % VBG pCO2 (37-51) mmHg Sodium 134 L (137-145) mmol/L Potassium 5.3 H (3.5-5.1) mmol/L BUN 31 H (7-17) mg/dL Creatinine 1.26 H (0.52-1.04) mg/dL Glucose 556 H* (74-99) mg/dL POC Glucose (mg/dL) (75-99) mg/dL Plasma Lactic Acid Dennis 3.2 H* (0.7-2.0) mmol/L Troponin I (0.000-0.034) ng/mL Total Protein (6.3-8.2) g/dL Albumin (3.5-5.0) g/dL 02/08/22 02/08/22 02/08/22 Range/Units 07:14 07:35 07:36 WBC (3.8-10.6) k/uL MCV (80.0-100.0) fL MCHC (31.0-37.0) g/dL Neutrophils # (1.3-7.7) k/uL Lymphocytes # (1.0-4.8) k/uL APTT (22.0-30.0) sec ABG pO2 (83-108) mmHg ABG HCO3 (21-25) mmol/L ABG Total CO2 (19-24) mmol/L ABG O2 Saturation (94-97) % VBG pCO2 (37-51) mmHg Sodium (137-145) mmol/L Potassium (3.5-5.1) mmol/L BUN (7-17) mg/dL Creatinine (0.52-1.04) mg/dL Glucose (74-99) mg/dL POC Glucose (mg/dL) 535 H 590 H (75-99) mg/dL Plasma Lactic Acid Dennis 2.6 H* (0.7-2.0) mmol/L Troponin I (0.000-0.034) ng/mL Total Protein (6.3-8.2) g/dL Albumin (3.5-5.0) g/dL Thrombosis Risk Factor Assmnt - DVT/VTE Prophylaxis DVT/VTE Prophylaxis: Pharmacologic Prophylaxis ordered Assessment and Plan Assessment: Shortness of breath secondary to acute COPD exacerbation. Improving clinically. Recent history of COVID 19 pneumonia. Patient is not vaccinated. Hyperglycemia likely due to steroid-induced Generalized weakness and medical debility since Covid 19 infection Lactic acidosis Mild troponin elevation Hypertension Hyperlipidemia Diabetes type 2 insulin-dependent Persistent FL History of coronary disease status post CABG and previous history of FL and stent placement Procedures history of smoking Bilateral diabetic peripheral neuropathy DVT prophylaxis Plan: Patient will be continued on IV hydration. Start back on insulin regimen and titrate insulin dose. Patient was given IV steroids last night with improvement in breathing status. Stress have been discontinued. Continue with the DuoNeb's as needed. Continue the home medications including aspirin Plavix and statins and Toprol- XL. Continue with telemetry monitoring and follow closely. Pulmonary is on board. PTOT be consulted and possible rehab placement. Time with Patient: Greater than 30
[2022-02-08] MEDS ORDERED: INSULIN DETEMIR (LEVEMIR) 100 UNIT/ML SYR SQ ONE (15:30)
[2022-02-08 16:09] LABS: Glucose,Whole Blood 559 mg/dL (70-110)
[2022-02-08 17:08] LABS: Glucose,Whole Blood 577 mg/dL (70-110)
[2022-02-08 17:58] LABS: Appearance,Urine Clear (Clear); Bilirubin,Urine Negative (Negative); Blood,Urine Negative (Negative); Color,Urine Light Yellow; Glucose,Urine (UA) 4+ (Negative); Ketones,Urine Negative (Negative); Leukocyte Esterase,Urine Negative (Negative); Nitrite,Urine Negative (Negative); Protein,Urine Trace (Negative); Specific Gravity,Urine 1.023 (1.001-1.035); Urobilinogen,Urine <2.0 mg/dL (<2.0)
[2022-02-08 19:58] LABS: Glucose,Whole Blood 518 mg/dL (70-110)
[2022-02-08] MEDS: METOPROLOL SUCCINATE (ER) 50 MG TAB.ER.24H PO SCH (20:08)
[2022-02-08] MEDS: ATORVASTATIN 80 MG TAB PO SCH (20:08)
[2022-02-08] MEDS: INSULIN DETEMIR (LEVEMIR) 100 UNIT/ML SYR SQ SCH (20:10)
[2022-02-08] MEDS: VALSARTAN 80 MG TAB PO SCH (21:20)
[2022-02-09 05:22] LABS: Basophils % (A) 0 %; Eosinophils # (A) 0.1 k/uL (0-0.7); Eosinophils % (A) 0 %; HCT 34.7 % (34.0-46.0); Lymphocytes # (A) 2.2 k/uL (1.0-4.8); Lymphocytes % (A) 13 %; MCH 31.9 pg (25.0-35.0); MCHC 31.7 g/dL (31.0-37.0); MCV 100.7 fL (80.0-100.0); Macrocytosis Slight; Mean Platelet Volume 7.6; Monocytes # (A) 0.8 k/uL (0-1.0); Monocytes % (A) 5 %; Neutrophils # (A) 13.1 k/uL (1.3-7.7); Neutrophils % (A) 79 %; Platelet Count 369 k/uL (150-450); RBC 3.45 m/uL (3.80-5.40); RDW 13.5 % (11.5-15.5); WBC 16.5 k/uL (3.8-10.6)
[2022-02-09 05:56] LABS: Glucose,Whole Blood 141 mg/dL (70-110)
[2022-02-09] MEDS: INSULIN ASPART (NovoLOG) 100 UNIT/ML VIAL SQ SCH ×7 (06:20→20:55)
[2022-02-09] MEDS: PANTOPRAZOLE 40 MG TABLET PO SCH ×2 (06:21→17:51)
[2022-02-09] MEDS: SODIUM CHLORIDE 0.9% 1,000 ML IV SCH ×3 (06:23→23:33)
[2022-02-09] MEDS: IPRATROPIUM-ALBUTEROL 3 ML NEB INHALATION SCH ×4 (07:16→19:25)
[2022-02-09] MEDS: SYMBICORT 160-4.5 MCG INHALER INHALATION SCH ×2 (07:16→19:25)
[2022-02-09] MEDS: CLOPIDOGREL 75 MG TAB PO SCH (09:39)
[2022-02-09] MEDS: amLODIPine 5 MG TAB PO SCH (09:39)
[2022-02-09] MEDS: ASPIRIN 81 MG PO SCH (09:39)
[2022-02-09] MEDS: ENOXAPARIN 40 MG/0.4 ML SYRINGE SQ SCH (09:39)
[2022-02-09 11:07] VITALS: BMI 40.1
[2022-02-09 12:07] LABS: Glucose,Whole Blood 189 mg/dL (70-110)
--- NOTE | 2022-02-09 14:45 | P.PN ---
Subjective Progress Note Date: 02/09/22 Principal diagnosis: Acute on chronic hypoxic respiratory failure secondary to acute exacerbation of COPD. This is a 71-year-old white female patient with advanced COPD on home oxygen at 4 L/m on a regular basis, with baseline FEV1 of 54% of predicted, diabetes mellitus type 2, CAD with previous stenting and previous coronary artery bypass surgery, history of CVA with previous TPA administration in March 2021, hypertension, hyperlipidemia, morbid obesity, previous history of ESBL urinary tract infection, and a recent history of COVID-19 infection in December 2021. Patient was not vaccinated against COVID 19. In early December she was hospitalized with acute COVID-19 infection, acute hyperosmolar hyperglycemic syndrome, and hyponatremia. Patient was outside the window for a few the inpatient treatments, and was just treated with Decadron, insulin infusion, IV hydration, supportive treatment. She recovered, and was discharged home on 01/21/2022. Yesterday on 02/07/2022 patient came in by EMS for evaluation of difficulty breathing, and weakness. Home care nurse was at the residence yesterday, and patient was acting appropriately. No chest pain, no fever or chills, no worsening lower extremity edema. Chest x-ray showed cardiomegaly, no evident pneumothorax. Initial blood work showed that cell count of 13.9, hemoglobin of 12.5, INR of 0.9, electrolytes are within normal limits, BUN is 20 creatinine is 1.19, lactic acid is 3.9, LFTs are within normal limits, troponin is 0.05H, proBNP is 441, influenza A and B were negative, troponins were 0.054, and 0.046. Lactic acid was 3.2, patient with significant respiratory distress, and she was placed on BiPAP support with pressures of 12 and 6 and FiO2 of 40%. In addition patient reports frequent bouts of diarrhea at home, and cough, no hemoptysis. No chest pain. This morning she has been transitioned to nasal cannula, she is breathing comfortably, she is on 4 L of oxygen which she normally wears at home on a regular basis, she is awake and oriented 3, she is answering questions appropriately, she was started on IV steroids for acute exacerbation of COPD however she developed significant steroid-induced hyperglycemia, her breathing is significantly improved this morning, and she appears to be breathing comfortably, no significant rhonchi wheezing or coughing. Reevaluated today on 02/09/22, patient seems to be doing better today, breathing easier, hardly any cough no wheezing no shortness of breath. Blood sugars seem to be better controlled. Her WBC count is 16.5 hemoglobin is 11 and electroly carroll are normal BUN is 36 creatinine 1.31. Patient was seen yesterday on consultation for acute exacerbation of COPD and acute kidney injury/hypovolemic in nature, patient had high blood sugars in the 500 range, required insulin and required IV fluids. Today the patient is doing better, I believe the patient is on appropriate treatment for her COPD with bronchodilators, no need for IV Solu-Medrol Objective - Vital Signs Vital signs: Vital Signs Temp 98.0 F 02/09/22 08:00 Pulse 85 02/09/22 11:00 Resp 20 02/09/22 08:00 BP 114/67 02/09/22 08:00 Pulse Ox 100 02/09/22 08:00 FiO2 40 02/07/22 19:11 Intake & Output 02/08/22 02/09/22 02/09/22 18:59 06:59 18:59 Intake Total 236 Output Total 700 Balance -700 236 Weight 102.7 kg Intake: Oral 236 Output: Urine 700 Other: Voiding Method Bedside Commode Toilet Toilet # Voids 0 - Exam Physical Exam: Revealed a 71-year-old female obese in no distress. On 4 L nasal cannula which is her baseline oxygen requirement. Head: Atraumatic normocephalic. Patient does have short obese neck. HEENT:[Neck is supple.] [No neck masses.] [No thyromegaly.] [No JVD.] Chest: [Clear throughout, no crackles, no rhonchi, no wheezes.] Cardiac Exam: [Normal S1 and S2, no S3 gallop, no murmur.] Abdomen: [Soft, nontender, no megaly, no rebound, no guarding, normal bowel sounds.] Extremities: [No clubbing, no edema, no cyanosis.] Neurological Exam: [No focal neurologic deficit.] Psychiatric: Normal mood affect and normal mental status examination. Skin: No rashes - Labs CBC & Chem 7: 02/09/22 04:53 02/09/22 04:53 Labs: Abnormal Lab Results - Last 24 Hours (Table) 02/08/22 02/08/22 02/08/22 Range/Units 14:49 16:05 17:06 WBC (3.8-10.6) k/uL RBC (3.80-5.40) m/uL Hgb (11.4-16.0) gm/dL MCV (80.0-100.0) fL Neutrophils # (1.3-7.7) k/uL Sodium (137-145) mmol/L BUN (7-17) mg/dL Creatinine (0.52-1.04) mg/dL Glucose (74-99) mg/dL POC Glucose (mg/dL) 559 H 577 H (70-110) mg/dL Plasma Lactic Acid Dennis 4.4 H* (0.7-2.0) mmol/L Calcium (8.4-10.2) mg/dL Urine Protein (Negative) Urine Glucose (UA) (Negative) 02/08/22 02/08/22 02/08/22 Range/Units 17:34 18:49 19:56 WBC (3.8-10.6) k/uL RBC (3.80-5.40) m/uL Hgb (11.4-16.0) gm/dL MCV (80.0-100.0) fL Neutrophils # (1.3-7.7) k/uL Sodium (137-145) mmol/L BUN (7-17) mg/dL Creatinine (0.52-1.04) mg/dL Glucose (74-99) mg/dL POC Glucose (mg/dL) 518 H (70-110) mg/dL Plasma Lactic Acid Dennis 3.9 H* (0.7-2.0) mmol/L Calcium (8.4-10.2) mg/dL Urine Protein Trace H (Negative) Urine Glucose (UA) 4+ H (Negative) 02/08/22 02/09/22 02/09/22 Range/Units 21:33 00:32 04:53 WBC 16.5 H (3.8-10.6) k/uL RBC 3.45 L (3.80-5.40) m/uL Hgb 11.0 L (11.4-16.0) gm/dL MCV 100.7 H (80.0-100.0) fL Neutrophils # 13.1 H (1.3-7.7) k/uL Sodium (137-145) mmol/L BUN (7-17) mg/dL Creatinine (0.52-1.04) mg/dL Glucose (74-99) mg/dL POC Glucose (mg/dL) (70-110) mg/dL Plasma Lactic Acid Dennis 2.7 H* 2.3 H* (0.7-2.0) mmol/L Calcium (8.4-10.2) mg/dL Urine Protein (Negative) Urine Glucose (UA) (Negative) 02/09/22 02/09/22 02/09/22 Range/Units 04:53 05:54 12:06 WBC (3.8-10.6) k/uL RBC (3.80-5.40) m/uL Hgb (11.4-16.0) gm/dL MCV (80.0-100.0) fL Neutrophils # (1.3-7.7) k/uL Sodium 136 L (137-145) mmol/L BUN 36 H (7-17) mg/dL Creatinine 1.31 H (0.52-1.04) mg/dL Glucose 146 H (74-99) mg/dL POC Glucose (mg/dL) 141 H 189 H (70-110) mg/dL Plasma Lactic Acid Dennis (0.7-2.0) mmol/L Calcium 8.0 L (8.4-10.2) mg/dL Urine Protein (Negative) Urine Glucose (UA) (Negative) Assessment and Plan Assessment: Impression: Acute on chronic hypoxic respiratory failure Acute exacerbation of COPD Recent history of COVID-19 infection with possibility of COVID-19 pneumonia Steroid-induced hyperglycemia Dehydration Acute kidney injury secondary to hypovolemia and dehydration Gen. medical debility. Benign essential hypertension Type 2 diabetes Degenerative disc disease of lumbar spine. Severe COPD, FEV1 is 54%, patient is chronically on oxygen at 4 L/m. Recommendation: Continue O2 via nasal cannula Continue bronchodilators. No need for systemic steroids. Continue treatment of her hyperglycemia Consider discharge planning in the next 24 hours. Time with Patient: Less than 30
[2022-02-09 16:57] LABS: Glucose,Whole Blood 283 mg/dL (70-110)
[2022-02-09] MEDS: METOPROLOL SUCCINATE (ER) 50 MG TAB.ER.24H PO SCH (20:54)
[2022-02-09] MEDS: ATORVASTATIN 80 MG TAB PO SCH (20:54)
[2022-02-09] MEDS: VALSARTAN 80 MG TAB PO SCH (20:54)
[2022-02-09] MEDS: INSULIN DETEMIR (LEVEMIR) 100 UNIT/ML SYR SQ SCH (20:55)
[2022-02-10 05:59] LABS: Glucose,Whole Blood 128 mg/dL (70-110)
[2022-02-10] MEDS: INSULIN ASPART (NovoLOG) 100 UNIT/ML VIAL SQ SCH ×6 (06:05→17:33)
[2022-02-10] MEDS: PANTOPRAZOLE 40 MG TABLET PO SCH ×2 (06:30→17:58)
[2022-02-10] MEDS: SODIUM CHLORIDE 0.9% 1,000 ML IV SCH (06:32)
[2022-02-10] MEDS: SYMBICORT 160-4.5 MCG INHALER INHALATION SCH (07:31)
[2022-02-10] MEDS: IPRATROPIUM-ALBUTEROL 3 ML NEB INHALATION SCH ×3 (07:31→16:59)
[2022-02-10] MEDS: CLOPIDOGREL 75 MG TAB PO SCH (10:28)
[2022-02-10] MEDS: ENOXAPARIN 40 MG/0.4 ML SYRINGE SQ SCH (10:28)
[2022-02-10] MEDS: amLODIPine 5 MG TAB PO SCH (10:28)
[2022-02-10] MEDS: ASPIRIN 81 MG PO SCH (10:28)
--- NOTE | 2022-02-10 10:45 | P.PN ---
Subjective Progress Note Date: 02/09/22 Patient is a 71-year-old female presented on history of COPD on home oxygen at 4 L via nasal cannula, history of CVA/TIA, hypertension, diabetes type 2, history of [place], bilateral peripheral neuropathy, peripheral vascular disease, pulmonary hypertension, history of coronary artery bypass graft and stent placement in 2 sisters smoking was brought to ER by her daughter due to worsening shortness of breath and weakness. Denied any worsening cough or sputum production. No fever no chills. No nausea vomiting or abdominal pain or diarrhea. Patient states that she did have loose bowel movement this morning otherwise. No dizziness or lightheadedness. On admission patient was hypoxic and was placed on BiPAP. Patient was recently admitted to the hospital due to acute code 19 infection, hyponatremia and acute hyperosmolar hyperglycemic state. Patient was discharged home on 01/01/2022. Chest x-ray showed cardiomegaly and no definite acute abnormality. Laboratory data showed WBC 13.9 hemoglobin 12.5 and platelets 392 ABG showed pH 7.37 pCO2 45, PaO2 111 Sodium 137 potassium 4.0 chloride 103 bicarb is 26 BUN 20 and creatinine 1.19 and blood sugar 189 Lactic acid 3.9 and troponin 0.058 and proBNP 441. Ordered with reported. Influenza A and B-. Patient was started on IV steroids in the ER and continued on breathing treatments. Patient's blood sugar was greater than 500 this morning. 02/10/2022 Patient is currently trying the bed. Awake alert and oriented. Denied any complaints of chest pain. Wheezing has resolved. No nausea vomiting or abdominal pain or diarrhea. Patient is being continued on IV steroids and DuoNeb's. Blood sugar is better controlled today. Patient denied any complaints of dizziness or lightheadedness. Was able to work with physical therapy. Patient has been afebrile. Laboratory data showed hemoglobin 11.0 and platelets 369, sodium 136 potassium 4.0) 106 BUN 36 and creatinine 1.31 and blood sugar 146, calcium 8.0 Current medications reviewed. Objective - Vital Signs Vital signs: Vital Signs Temp 98.0 F 02/09/22 08:00 Pulse 84 02/09/22 15:56 Resp 20 02/09/22 08:00 BP 114/67 02/09/22 08:00 Pulse Ox 100 02/09/22 08:00 FiO2 40 02/07/22 19:11 Intake & Output 02/08/22 02/09/22 02/09/22 18:59 06:59 18:59 Intake Total 236 Output Total 700 Balance -700 236 Weight 102.7 kg Intake: Oral 236 Output: Urine 700 Other: Voiding Method Bedside Commode Toilet Toilet # Voids 0 - Exam PHYSICAL EXAMINATION: Patient is lying in the bed comfortably, no acute distress, awake alert and oriented. Mildly obese.. HEENT: Normocephalic. Neck is supple. Pupils reactive. Nostrils clear. Oral cavity is moist. Neck reveals no JVD, carotid bruits, or thyromegaly. CHEST EXAMINATION: Trachea is central. Symmetrical expansion. Bibasilar diminished sounds. No wheezing. Lung robert clear to auscultation and percussion. CARDIAC: Normal S1, S2 with no gallops. No murmurs ABDOMEN: Soft. Bowel sounds normal. No organomegaly. No abdominal bruits. Extremities: reveal no edema. No clubbing or cyanosis Neurologically awake, alert, oriented x3 with well-coordinated movements. No focal deficits noted Skin: No rash or skin lesions. Psychiatric: Coperative. Nonsuicidal Musculoskeletal: No joint swelling or deformity. Normal range of motion. - Labs CBC & Chem 7: 02/09/22 04:53 02/09/22 04:53 Labs: Abnormal Lab Results - Last 24 Hours (Table) 02/08/22 02/08/22 02/08/22 Range/Units 17:34 18:49 19:56 WBC (3.8-10.6) k/uL RBC (3.80-5.40) m/uL Hgb (11.4-16.0) gm/dL MCV (80.0-100.0) fL Neutrophils # (1.3-7.7) k/uL Sodium (137-145) mmol/L BUN (7-17) mg/dL Creatinine (0.52-1.04) mg/dL Glucose (74-99) mg/dL POC Glucose (mg/dL) 518 H (70-110) mg/dL Plasma Lactic Acid Dennis 3.9 H* (0.7-2.0) mmol/L Calcium (8.4-10.2) mg/dL Urine Protein Trace H (Negative) Urine Glucose (UA) 4+ H (Negative) 02/08/22 02/09/22 02/09/22 Range/Units 21:33 00:32 04:53 WBC 16.5 H (3.8-10.6) k/uL RBC 3.45 L (3.80-5.40) m/uL Hgb 11.0 L (11.4-16.0) gm/dL MCV 100.7 H (80.0-100.0) fL Neutrophils # 13.1 H (1.3-7.7) k/uL Sodium (137-145) mmol/L BUN (7-17) mg/dL Creatinine (0.52-1.04) mg/dL Glucose (74-99) mg/dL POC Glucose (mg/dL) (70-110) mg/dL Plasma Lactic Acid Dennis 2.7 H* 2.3 H* (0.7-2.0) mmol/L Calcium (8.4-10.2) mg/dL Urine Protein (Negative) Urine Glucose (UA) (Negative) 02/09/22 02/09/22 02/09/22 Range/Units 04:53 05:54 12:06 WBC (3.8-10.6) k/uL RBC (3.80-5.40) m/uL Hgb (11.4-16.0) gm/dL MCV (80.0-100.0) fL Neutrophils # (1.3-7.7) k/uL Sodium 136 L (137-145) mmol/L BUN 36 H (7-17) mg/dL Creatinine 1.31 H (0.52-1.04) mg/dL Glucose 146 H (74-99) mg/dL POC Glucose (mg/dL) 141 H 189 H (70-110) mg/dL Plasma Lactic Acid Dennis (0.7-2.0) mmol/L Calcium 8.0 L (8.4-10.2) mg/dL Urine Protein (Negative) Urine Glucose (UA) (Negative) 02/09/22 Range/Units 16:48 WBC (3.8-10.6) k/uL RBC (3.80-5.40) m/uL Hgb (11.4-16.0) gm/dL MCV (80.0-100.0) fL Neutrophils # (1.3-7.7) k/uL Sodium (137-145) mmol/L BUN (7-17) mg/dL Creatinine (0.52-1.04) mg/dL Glucose (74-99) mg/dL POC Glucose (mg/dL) 283 H (70-110) mg/dL Plasma Lactic Acid Dennis (0.7-2.0) mmol/L Calcium (8.4-10.2) mg/dL Urine Protein (Negative) Urine Glucose (UA) (Negative) Assessment and Plan Assessment: Shortness of breath secondary to acute COPD exacerbation. Improving clinically. Recent history of COVID 19 pneumonia. Patient is not vaccinated. Hyperglycemia likely due to steroid-induced. Improved. Generalized weakness and medical debility since Covid 19 infection Lactic acidosis Mild troponin elevation Hypertension Hyperlipidemia Diabetes type 2 insulin-dependent Persistent [place] History of coronary disease status post CABG and previous history of [place] and stent placement Procedures history of smoking Bilateral diabetic peripheral neuropathy DVT prophylaxis Plan: Patient will be continued on IV hydration. Start back on insulin regimen and titrate insulin dose. Blood sugar is better controlled. Patient was given IV steroids last night with improvement in breathing status. Steroids have been discontinued. Continue with the DuoNeb's as needed. Continue the home medications including aspirin Plavix and statins and Toprol- XL. Continue with telemetry monitoring and follow closely. Pulmonary is on board. PTOT be consulted. Possible discharge in next 24 hours. Time with Patient: Greater than 30
[2022-02-10 11:30] LABS: Basophils # (A) 0.1 k/uL (0-0.2); Basophils % (A) 1 %; Eosinophils # (A) 0.3 k/uL (0-0.7); Eosinophils % (A) 3 %; HCT 33.5 % (34.0-46.0); HGB 10.8 gm/dL (11.4-16.0); Hypochromasia Slight; Lymphocytes # (A) 2.1 k/uL (1.0-4.8); Lymphocytes % (A) 19 %; MCH 32.6 pg (25.0-35.0); MCHC 32.2 g/dL (31.0-37.0); MCV 101.3 fL (80.0-100.0); Macrocytosis Slight; Mean Platelet Volume 7.5; Monocytes # (A) 0.7 k/uL (0-1.0); Monocytes % (A) 6 %; Neutrophils % (A) 70 %; Platelet Count 293 k/uL (150-450); RDW 12.8 % (11.5-15.5); WBC 11.5 k/uL (3.8-10.6)
[2022-02-10 11:49] LABS: Calcium 8.5 mg/dL (8.4-10.2); Potassium 4.6 mmol/L (3.5-5.1)
[2022-02-10 11:52] LABS: Glucose,Whole Blood 209 mg/dL (70-110)
[2022-02-10 12:34] VITALS: BP 130/62; PULSE 75; RESP 18; TEMP 98
--- NOTE | 2022-02-10 14:03 | P.PN ---
Subjective Progress Note Date: 02/10/22 Principal diagnosis: Acute on chronic hypoxic respiratory failure secondary to acute exacerbation of COPD. This is a 71-year-old white female patient with advanced COPD on home oxygen at 4 L/m on a regular basis, with baseline FEV1 of 54% of predicted, diabetes mellitus type 2, CAD with previous stenting and previous coronary artery bypass surgery, history of CVA with previous TPA administration in March 2021, hypertension, hyperlipidemia, morbid obesity, previous history of ESBL urinary tract infection, and a recent history of COVID-19 infection in December 2021. Patient was not vaccinated against COVID 19. In early December she was hospitalized with acute COVID-19 infection, acute hyperosmolar hyperglycemic syndrome, and hyponatremia. Patient was outside the window for a few the inpatient treatments, and was just treated with Decadron, insulin infusion, IV hydration, supportive treatment. She recovered, and was discharged home on 01/21/2022. Yesterday on 02/07/2022 patient came in by EMS for evaluation of difficulty breathing, and weakness. Home care nurse was at the residence yesterday, and patient was acting appropriately. No chest pain, no fever or chills, no worsening lower extremity edema. Chest x-ray showed cardiomegaly, no evident pneumothorax. Initial blood work showed that cell count of 13.9, hemoglobin of 12.5, INR of 0.9, electrolytes are within normal limits, BUN is 20 creatinine is 1.19, lactic acid is 3.9, LFTs are within normal limits, troponin is 0.05H, proBNP is 441, influenza A and B were negative, troponins were 0.054, and 0.046. Lactic acid was 3.2, patient with significant respiratory distress, and she was placed on BiPAP support with pressures of 12 and 6 and FiO2 of 40%. In addition patient reports frequent bouts of diarrhea at home, and cough, no hemoptysis. No chest pain. This morning she has been transitioned to nasal cannula, she is breathing comfortably, she is on 4 L of oxygen which she normally wears at home on a regular basis, she is awake and oriented 3, she is answering questions appropriately, she was started on IV steroids for acute exacerbation of COPD however she developed significant steroid-induced hyperglycemia, her breathing is significantly improved this morning, and she appears to be breathing comfortably, no significant rhonchi wheezing or coughing. Reevaluated today on 02/09/22, patient seems to be doing better today, breathing easier, hardly any cough no wheezing no shortness of breath. Blood sugars seem to be better controlled. Her WBC count is 16.5 hemoglobin is 11 and electroly carroll are normal BUN is 36 creatinine 1.31. Patient was seen yesterday on consultation for acute exacerbation of COPD and acute kidney injury/hypovolemic in nature, patient had high blood sugars in the 500 range, required insulin and required IV fluids. Today the patient is doing better, I believe the patient is on appropriate treatment for her COPD with bronchodilators, no need for IV Solu-Medrol Reevaluated today on 02/10/22, patient is feeling better, hardly any cough no wheezing, no shortness of breath, patient is on bronchodilators, not on IV steroids. overall the patient is improving. Patient is on 4 L nasal cannula, refuses to use BiPAP. I believe we should possibly consider discharging the patient home today as long as her sugars are better controlled and that being addressed by her admitting physician. WBC count is 11.5 hemoglobin is 10.80 left lites are normal BUN is 32 creatinine 1.13, improving since admission Objective - Vital Signs Vital signs: Vital Signs Temp 98 F 02/10/22 12:25 Pulse 75 02/10/22 12:25 Resp 18 02/10/22 12:25 BP 130/62 02/10/22 12:25 Pulse Ox 96 02/10/22 12:25 FiO2 40 02/09/22 23:10 Intake & Output 02/09/22 02/10/22 02/10/22 18:59 06:59 18:59 Intake Total 354 Balance 354 Weight 102.7 kg Intake: Oral 354 Other: Voiding Method Toilet Bedside Commode Bedside Commode # Voids 2 2 - Exam Physical Exam: Revealed a 71-year-old female obese in no distress. On 4 L nasal cannula which is her baseline oxygen requirement. Head: Atraumatic normocephalic. Patient does have short obese neck. HEENT:[Neck is supple.] [No neck masses.] [No thyromegaly.] [No JVD.] Chest: [Clear throughout, no crackles, no rhonchi, no wheezes.] Cardiac Exam: [Normal S1 and S2, no S3 gallop, no murmur.] Abdomen: [Soft, nontender, no megaly, no rebound, no guarding, normal bowel sounds.] Extremities: [No clubbing, no edema, no cyanosis.] Neurological Exam: [No focal neurologic deficit.] Psychiatric: Normal mood affect and normal mental status examination. Skin: No rashes - Labs CBC & Chem 7: 02/10/22 11:14 02/10/22 11:14 Labs: Abnormal Lab Results - Last 24 Hours (Table) 02/09/22 02/10/22 02/10/22 Range/Units 16:48 05:57 11:14 WBC 11.5 H (3.8-10.6) k/uL RBC 3.30 L (3.80-5.40) m/uL Hgb 10.8 L (11.4-16.0) gm/dL Hct 33.5 L (34.0-46.0) % MCV 101.3 H (80.0-100.0) fL Neutrophils # 8.0 H (1.3-7.7) k/uL Sodium (137-145) mmol/L BUN (7-17) mg/dL Creatinine (0.52-1.04) mg/dL Glucose (74-99) mg/dL POC Glucose (mg/dL) 283 H 128 H (70-110) mg/dL 02/10/22 02/10/22 Range/Units 11:14 11:40 WBC (3.8-10.6) k/uL RBC (3.80-5.40) m/uL Hgb (11.4-16.0) gm/dL Hct (34.0-46.0) % MCV (80.0-100.0) fL Neutrophils # (1.3-7.7) k/uL Sodium 136 L (137-145) mmol/L BUN 32 H (7-17) mg/dL Creatinine 1.13 H (0.52-1.04) mg/dL Glucose 184 H (74-99) mg/dL POC Glucose (mg/dL) 209 H (70-110) mg/dL Microbiology - Last 24 Hours (Table) 02/08/22 21:33 Blood Culture - Preliminary Blood No Growth after 24 hours 02/08/22 21:30 Blood Culture - Preliminary Blood No Growth after 24 hours Assessment and Plan Assessment: Impression: Acute on chronic hypoxic respiratory failure Acute exacerbation of COPD Recent history of COVID-19 infection with possibility of COVID-19 pneumonia Steroid-induced hyperglycemia Dehydration Acute kidney injury secondary to hypovolemia and dehydration Gen. medical debility. Benign essential hypertension Type 2 diabetes Degenerative disc disease of lumbar spine. Severe COPD, FEV1 is 54%, patient is chronically on oxygen at 4 L/m. Recommendation: Continue O2 via nasal cannula Continue bronchodilators. No need for systemic steroids. Continue treatment of her hyperglycemia Pulmonary-hogan we'll clear the patient to be discharged home on her usual medications, oxygen, patient refuses to use BiPAP. Hence no need for BiPAP if she is refusing to use it. Could be seen on outpatient basis post discharge Long-term prognosis remains relatively poor and guarded Time with Patient: Less than 30
[2022-02-10 17:03] LABS: Glucose,Whole Blood 185 mg/dL (70-110)
== END 2022-02-10 18:11 | disposition home health service (06) | DRG 190 ==
LOC: EC 15:53 → 3SCARD 19:04
PROVIDERS: ADMIT Hospitalist; ATTEND Hospitalist
PROC: 5A09357 Assistance with Respiratory Ventilation, Less than 24 Consecutive Hours, Continuous Positive Airway Pressure (ICD-10-PCS; principal; 2022-02-07)
DX: J44.1 Chronic obstructive pulmonary disease with (acute) exacerbation (principal); J96.21 Acute and chronic respiratory failure with hypoxia; E87.2 Acidosis; N17.9 Acute kidney failure, unspecified; E11.42 Type 2 diabetes mellitus with diabetic polyneuropathy; E11.65 Type 2 diabetes mellitus with hyperglycemia; E78.5 Hyperlipidemia, unspecified; E86.0 Dehydration; E86.1 Hypovolemia; Z20.822 Contact with and (suspected) exposure to COVID-19; F03.90 Unspecified dementia, unspecified severity, without behavioral disturbance, psychotic disturbance, mood disturbance, and anxiety; I25.10 Atherosclerotic heart disease of native coronary artery without angina pectoris; F40.240 Claustrophobia; I11.0 Hypertensive heart disease with heart failure; I50.9 Heart failure, unspecified; I27.20 Pulmonary hypertension, unspecified; M51.36 Other intervertebral disc degeneration, lumbar region; I25.2 Old myocardial infarction; R53.81 Other malaise; Z86.73 Personal history of transient ischemic attack (TIA), and cerebral infarction without residual deficits; Z86.16 Personal history of COVID-19; Z99.81 Dependence on supplemental oxygen; Z95.5 Presence of coronary angioplasty implant and graft; Z95.1 Presence of aortocoronary bypass graft; Z87.891 Personal history of nicotine dependence; Z87.440 Personal history of urinary (tract) infections; Z28.310 Unvaccinated for COVID-19; Z87.01 Personal history of pneumonia (recurrent); Z79.899 Other long term (current) drug therapy; Z79.82 Long term (current) use of aspirin; Z79.4 Long term (current) use of insulin; Z79.02 Long term (current) use of antithrombotics/antiplatelets; Z79.51 Long term (current) use of inhaled steroids; Z98.42 Cataract extraction status, left eye; Z98.41 Cataract extraction status, right eye; Z81.8 Family history of other mental and behavioral disorders; Z82.49 Family history of ischemic heart disease and other diseases of the circulatory system
CPT/HCPCS: 36415; 36600; 71045; 80048; 80053; 81003; 82009; 82803; 82805; 83605; 83735; 83880; 84484; 85025; 85610; 85730; 87040; 87502; 93005; 94640; 94660; 96361; 96365; 96366; 96375; 96376; 99291

== ENCOUNTER 2022-06-07 09:27 | Inpatient (IN) | payer MEDICARE ==
[2022-06-07 09:38] VITALS: TEMP 97.5
[2022-06-07] MEDS ORDERED: IPRATROPIUM-ALBUTEROL 3 ML NEB INHALATION STA (09:53)
[2022-06-07] MEDS ORDERED: methylPREDNISolone SOD SUCCI 125 MG/2 ML VIAL IV STA (09:53)
--- NOTE | 2022-06-07 12:07 | XR ---
EXAMINATION TYPE: XR chest 2V DATE OF EXAM: 06/07/2022 COMPARISON: 02/07/2022 HISTORY: 73 year-old female shortness of breath, difficulty breathing TECHNIQUE: AP and lateral views FINDINGS: Median sternotomy wires. Heart is enlarged. Diffuse interstitial and vascular prominence. Left base u nderpenetrated and not well assessed. There is a trace left effusion on the lateral view. IMPRESSION: Cardiomegaly and interstitial/vascular density and trace left effusion. Correlate for mild CHF with p ulmonary vascular congestion.
[2022-06-07 12:28] LABS: Albumin 3.6 g/dL (3.5-5.0); Calcium 9.1 mg/dL (8.4-10.2); Potassium 5.3 mmol/L (3.5-5.1); Total Bilirubin 1.1 mg/dL (0.2-1.3); Total Protein 6.3 g/dL (6.3-8.2)
[2022-06-07 12:50] LABS: Basophils # (A) 0.1 k/uL (0-0.2); Basophils % (A) 0 %; Eosinophils # (A) 0.1 k/uL (0-0.7); Eosinophils % (A) 0 %; HCT 41.3 % (34.0-46.0); HGB 12.7 gm/dL (11.4-16.0); Hypochromasia Moderate; Lymphocytes # (A) 0.8 k/uL (1.0-4.8); Lymphocytes % (A) 5 %; MCH 29.7 pg (25.0-35.0); MCHC 30.9 g/dL (31.0-37.0); MCV 96.1 fL (80.0-100.0); Mean Platelet Volume 9.1; Monocytes # (A) 0.4 k/uL (0-1.0); Monocytes % (A) 3 %; Neutrophils # (A) 14.6 k/uL (1.3-7.7); Neutrophils % (A) 91 %; Platelet Count 503 k/uL (150-450); RBC 4.29 m/uL (3.80-5.40); RDW 12.8 % (11.5-15.5)
--- NOTE | 2022-06-07 13:06 | ED ---
General Adult HPI - General Chief complaint: Shortness of Breath Stated complaint: Asthma Time Seen by Provider: 06/07/22 09:41 Source: patient, RN notes reviewed Mode of arrival: wheelchair Limitations: no limitations - History of Present Illness Initial comments: 72-year-old female presents emergency Department chief complaint shortness breath. Patient states she's been having increasing shortness of breath. Patient states that she does have underlying COPD, sees Dr. Monique. Patient has been doing breathing treatments, inhalers with no relief symptoms. Patient was placed on and right steroids states has not helped. Patient states that she continues to have his work breathing, fatigue. Patient states she feels heaviness or chest. Patient has had triple bypass in the past. Patient states she took multiple breathing treatments prior arrival, continues to have shortness breath especially with exertion, unable to complete full sentences. - Related Data Home Medications Medication Instructions Recorded Confirmed Metoprolol Succinate [Toprol XL] 50 mg PO HS 08/30/18 06/07/22 Furosemide [Lasix] 20 mg PO DAILY 05/19/20 06/07/22 Atorvastatin [Lipitor] 80 mg PO HS 09/23/20 06/07/22 Insulin Lispro [humaLOG Kwikpen] 15 units SQ AC-TID 11/11/20 06/07/22 Aspirin EC [Ecotrin Low Dose] 81 mg PO DAILY 12/12/21 06/07/22 Clopidogrel Bisulfate [Plavix] 75 mg PO DAILY 12/12/21 06/07/22 Insulin Glargine,Hum.rec.anlog 46 unit SQ BID 12/12/21 06/07/22 [Lantus Solostar Pen] Valsartan 80 mg PO HS 12/12/21 06/07/22 Ipratropium-Albuterol Nebulize 3 ml INHALATION RT-Q6H PRN 12/15/21 06/07/22 [Duoneb 0.5 mg-3 mg/3 ml Soln] Albuterol Sulfate [Albuterol 2 puff PO RT-Q6H 06/07/22 06/07/22 Sulfate Hfa] Donepezil [Aricept] 5 mg PO DAILY 06/07/22 06/07/22 Fluticasone/Umeclidin/Vilanter 1 puff INHALATION RT-DAILY 06/07/22 06/07/22 [Trelegy Ellipalzarus 100-62.5-25] Previous Rx's Medication Instructions Recorded Acetaminophen Tab [Tylenol] 650 mg PO Q6HR PRN tab 12/15/21 Allergies Allergy/AdvReac Type Severity Reaction Status Date / Time codeine AdvReac Nausea & Verified 06/07/22 12:04 Vomiting Review of Systems ROS Statement: Those systems with pertinent positive or pertinent negative responses have been documented in the HPI. ROS Other: All systems not noted in ROS Statement are negative. Past Medical History Past Medical History: Asthma, Coronary Artery Disease (CAD), Chest Pain / Angina, Heart Failure, COPD, CVA/TIA, Dementia, Diabetes Mellitus, Hyperlipidemia, Hypertension, Myocardial Infarction (ME), Pneumonia, Respiratory Disorder, Syncope, Vascular Disorder Additional Past Medical History / Comment(s): IDDM type II, neuropathy bilateral feet, 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, R caratid artery disease, valvular disease, pulmonary htn, bronchitis, home oxygen prn, poor vision/pt cannot recall reason, UTIs, rash/itching Last Myocardial Infarction Date:: 2014 History of Any Multi-Drug Resistant Organisms: ESBL Date of last positivie culture/infection: 04/15/21 MDRO Source:: ESBL URINE Past Surgical History: Cholecystectomy, Coronary Bypass/CABG, Heart Catheterization With Stent Additional Past Surgical History / Comment(s): PCI/stents in 2009 and 2014, 2016 CABG 3 vessel then sternal debridement for infection/removal of hardware, colonoscopy, bilateral cataract removals. Past Anesthesia/Blood Transfusion Reactions: No Reported Reaction Additional Past Anesthesia/Blood Transfusion Reaction / Comment(s): Claustrophobic Date of Last Stent Placement:: 2014 Past Psychological History: No Psychological Hx Reported Smoking Status: Former smoker Past Alcohol Use History: None Reported Past Drug Use History: None Reported - Past Family History Father Family Medical History: Coronary Artery Disease (CAD), Myocardial Infarction (ME) Additional Family Medical History / Comment(s): STENT, OPEN HEART SURGERY Mother Additional Family Medical History / Comment(s): DEPRESSION, mental illness General Exam Limitations: no limitations General appearance: alert, in no apparent distress Head exam: Present: atraumatic, normocephalic, normal inspection Eye exam: Present: normal appearance, PERRL, EOMI. Absent: scleral icterus, conjunctival injection, periorbital swelling ENT exam: Present: normal exam, mucous membranes moist Neck exam: Present: normal inspection, full ROM. Absent: tenderness, meningismus, lymphadenopathy Respiratory exam: Present: respiratory distress (Mild), wheezes, decreased breat h sounds. Absent: normal lung sounds bilaterally, rales, rhonchi, stridor Cardiovascular Exam: Present: regular rate, normal rhythm, normal heart sounds. Absent: systolic murmur, diastolic murmur, rubs, gallop, clicks Course Vital Signs 06/07/22 06/07/22 06/07/22 09:35 09:44 10:57 Temperature 97.5 F L Pulse Rate 60 66 Respiratory 18 22 Rate Blood Pressure 142/51 O2 Sat by Pulse 96 Oximetry 06/07/22 06/07/22 06/07/22 11:11 12:01 13:29 Temperature Pulse Rate 66 61 68 Respiratory 18 18 Rate Blood Pressure 151/56 159/70 O2 Sat by Pulse 98 94 L Oximetry EKG Findings - EKG Comments: EKG Findings:: EKG performed at 9:47 sinus rhythm first-degree block with a rate of 63 MI 257 QRS 132 QT/ QTC 447/454 Medical Decision Making - Medical Decision Making 72-year-old presented for shortness breath. Patient has acute COPD exacerbation given outpatient treatment. Patient does have elevated troponin. Patient be admitted for cardiology, pulmonology evaluation. - Lab Data Result diagrams: 06/07/22 11:59 06/07/22 11:59 Lab Results 06/07/22 06/07/22 06/07/22 Range/Units 11:59 11:59 11:59 WBC 16.0 H (3.8-10.6) k/uL RBC 4.29 (3.80-5.40) m/uL Hgb 12.7 (11.4-16.0) gm/dL Hct 41.3 (34.0-46.0) % MCV 96.1 (80.0-100.0) fL MCH 29.7 (25.0-35.0) pg MCHC 30.9 L (31.0-37.0) g/dL RDW 12.8 (11.5-15.5) % Plt Count 503 H (150-450) k/uL MPV 9.1 Neutrophils % 91 % Lymphocytes % 5 % Monocytes % 3 % Eosinophils % 0 % Basophils % 0 % Neutrophils # 14.6 H (1.3-7.7) k/uL Lymphocytes # 0.8 L (1.0-4.8) k/uL Monocytes # 0.4 (0-1.0) k/uL Eosinophils # 0.1 (0-0.7) k/uL Basophils # 0.1 (0-0.2) k/uL Hypochromasia Moderate Sodium 136 L (137-145) mmol/L Potassium 5.3 H (3.5-5.1) mmol/L Chloride 97 L (98-107) mmol/L Carbon Dioxide 30 (22-30) mmol/L Anion Gap 9 mmol/L BUN 24 H (7-17) mg/dL Creatinine 0.91 (0.52-1.04) mg/dL Est GFR (CKD-EPI)AfAm 73 (>60 ml/min/1.73 sqM) Est GFR (CKD-EPI)NonAf 63 (>60 ml/min/1.73 sqM) Glucose 319 H (74-99) mg/dL Calcium 9.1 (8.4-10.2) mg/dL Magnesium 2.0 (1.6-2.3) mg/dL Total Bilirubin 1.1 (0.2-1.3) mg/dL AST 26 (14-36) U/L ALT 34 (4-34) U/L Alkaline Phosphatase 101 (38-126) U/L Troponin I 0.053 H* (0.000-0.034) ng/mL NT-Pro-B Natriuret Pep pg/mL Total Protein 6.3 (6.3-8.2) g/dL Albumin 3.6 (3.5-5.0) g/dL Coronavirus (PCR) (Not Detectd) 06/07/22 06/07/22 Range/Units 11:59 13:06 WBC (3.8-10.6) k/uL RBC (3.80-5.40) m/uL Hgb (11.4-16.0) gm/dL Hct (34.0-46.0) % MCV (80.0-100.0) fL MCH (25.0-35.0) pg MCHC (31.0-37.0) g/dL RDW (11.5-15.5) % Plt Count (150-450) k/uL MPV Neutrophils % % Lymphocytes % % Monocytes % % Eosinophils % % Basophils % % Neutrophils # (1.3-7.7) k/uL Lymphocytes # (1.0-4.8) k/uL Monocytes # (0-1.0) k/uL Eosinophils # (0-0.7) k/uL Basophils # (0-0.2) k/uL Hypochromasia Sodium (137-145) mmol/L Potassium (3.5-5.1) mmol/L Chloride (98-107) mmol/L Carbon Dioxide (22-30) mmol/L Anion Gap mmol/L BUN (7-17) mg/dL Creatinine (0.52-1.04) mg/dL Est GFR (CKD-EPI)AfAm (>60 ml/min/1.73 sqM) Est GFR (CKD-EPI)NonAf (>60 ml/min/1.73 sqM) Glucose (74-99) mg/dL Calcium (8.4-10.2) mg/dL Magnesium (1.6-2.3) mg/dL Total Bilirubin (0.2-1.3) mg/dL AST (14-36) U/L ALT (4-34) U/L Alkaline Phosphatase (38-126) U/L Troponin I (0.000-0.034) ng/mL NT-Pro-B Natriuret Pep 1030 pg/mL Total Protein (6.3-8.2) g/dL Albumin (3.5-5.0) g/dL Coronavirus (PCR) Not Detected (Not Detectd) Disposition Clinical Impression: COPD exacerbation, Pulmonary edema, Weakness, Respiratory distress, NSTEMI (non-ST elevated myocardial infarction) Disposition: ADMITTED IP TO THIS HOSP Condition: Poor Referrals: Elvira Gonzales MD [Primary Care Provider] - 1-2 days Time of Disposition: 13:06
[2022-06-07] MEDS ORDERED: NALOXONE 0.4 MG/ML 1 ML VIAL IVP PRN (13:41)
[2022-06-07] MEDS ORDERED: HEPARIN SODIUM 1,000 UN/ML (10ML VL) IV ONE (13:46)
[2022-06-07] MEDS ORDERED: FUROSEMIDE 10 MG/ML 4 ML VIAL IV STA (13:46)
[2022-06-07] MEDS ORDERED: HEPARIN SODIUM 1,000 UN/ML (10ML VL) IV PRN (13:46)
[2022-06-07] MEDS ORDERED: HEPARIN SOD,PORK IN 0.45% NACL 25,000 UNIT in 0.45% NACL 1 250ML.BAG IV SCH (14:00)
[2022-06-07] MEDS ORDERED: ACETAMINOPHEN TAB 325 MG TAB PO PRN (15:07)
--- NOTE | 2022-06-07 15:08 | P.CNPUL ---
History of Present Illness Consult date: 06/07/22 Reason for consult: dyspnea History of present illness: This is a 72-year-old female patient, morbidly obese, essentially a central obesity with known history of COPD and chronic hypoxic respiratory failure [place] on oxygen at the fifth on a nasal cannula. The patient was involved in a Covid 19 infection back in December 2021, which she recovers. She had another hospitalization for COPD exacerbation following that and she discovered and she is currently living at home with her daughter. She is usingTrelegy Ellipta 1 puff a day on a regular basis and she is also on albuterol neb treatments around the clock as needed. The patient was noted by her daughter that she was getting more short of breath and she was having increased cough and for that reason she was transferred or to the emergency department and the patient was accordingly diagnosed having an acute COPD exacerbation and she was hospitalized. The patient has a baseline FEV1 of 54% of predicted and she is option independently as per minute nasal cannula. She has history of diabetes mellitus type 2, coronary artery disease with previous coronary artery bypass surgery and p revious coronary stenting. She has also been involved in a previous CVA requiring to be administration in March 2021, other comorbid conditions include hypertension, hyperlipidemia, previous urinary tract infection with ESBL producing gram-negative E. coli. The last hospital admission for COPD ex acerbation was in January 2022. Blood work shows a white cell count of 16 with a hemoglobin of 12.7 and a platelet count of 503. Potassium levels of 5.3 with a sodium level of 136. BUN is at 24 with a creatinine of 0.9. ProBNP level is 1000. Troponin I level is 0.05. The EKG is showing a normal sinus rhythm. There may be a first-degree AV block. No significant ST segment elevations or depressions. There may be some LVH also noted. As for the chest x-ray, there is cardiomegaly. There may be some increased pulmonary vascular markings along with cardiomegaly. No other acute abnormalities are noted. She does have some mild chronic edema lower extremities bilaterally. Review of Systems Constitutional: Reports daytime sleepiness, Reports fatigue, Reports lethargy, Reports poor appetite, Reports weakness, Reports weight gain Eyes: denies as per HPI, denies blurred vision, denies bulging eye, denies decreased vision, denies diplopia, denies discharge, denies dry eye, denies irritation, denies itching, denies pain, denies photophobia, denies loss of peripheral vision, denies loss of vision, denies tunnel vision/blind spots Ears: deny: decreased hearing, ear discharge, earache, tinnitus Ears, nose, mouth and throat: Reports as per HPI Breasts: absent: as per HPI, change in shape, gynecomastia, masses, nipple di scharge, pain, skin changes, swelling Cardiovascular: Reports decreased exercise tolerance, Reports dyspnea on exertion, Reports shortness of breath Respiratory: Reports cough, Reports dyspnea, Reports home oxygen, Reports wheezing Gastrointestinal: Reports as per HPI Genitourinary: Reports as per HPI Musculoskeletal: Reports gait dysfunction, Reports low back pain Musculoskeletal: absent: ankle pain, ankle stiffness, ankle swelling Integumentary: Reports as per HPI Neurological: Reports as per HPI, Reports weakness Psychiatric: Reports as per HPI Endocrine: Reports as per HPI Hematologic/Lymphatic: Reports as per HPI Allergic/Immunologic: Reports as per HPI Past Medical History Past Medical History: Asthma, Coronary Artery Disease (CAD), Chest Pain / Angina, Heart Failure, COPD, CVA/TIA, Dementia, Diabetes Mellitus, Hyperlipidemia, Hypertension, Myocardial Infarction ([place]), Pneumonia, Respiratory Disorder, Syncope, Vascular Disorder Additional Past Medical History / Comment(s): IDDM type II, neuropathy bilateral feet, 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, R caratid artery disease, valvular disease, pulmonary htn, bronchitis, home oxygen prn, poor vision/pt cannot recall reason, UTIs, rash/itching Last Myocardial Infarction Date:: 2014 History of Any Multi-Drug Resistant Organisms: ESBL Date of last positivie culture/infection: 04/15/21 MDRO Source:: ESBL URINE Past Surgical History: Cholecystectomy, Coronary Bypass/CABG, Heart Catheterization With Stent Additional Past Surgical History / Comment(s): PCI/stents in 2009 and 2014, 2017 CABG 3 vessel then sternal debridement for infection/removal of hardware, colonoscopy, bilateral cataract removals. Past Anesthesia/Blood Transfusion Reactions: No Reported Reaction Additional Past Anesthesia/Blood Transfusion Reaction / Comment(s): Claustrophobic Date of Last Stent Placement:: 2014 Past Psychological History: No Psychological Hx Reported Smoking Status: Former smoker Past Alcohol Use History: None Reported Past Drug Use History: None Reported - Past Family History Father Family Medical History: Coronary Artery Disease (CAD), Myocardial Infarction ([place]) Additional Family Medical History / Comment(s): STENT, OPEN HEART SURGERY Mother Additional Family Medical History / Comment(s): DEPRESSION, mental illness Medications and Allergies Home Medications Medication Instructions Recorded Confirmed Type Metoprolol Succinate [Toprol XL] 50 mg PO HS 08/30/18 06/07/22 History Furosemide [Lasix] 20 mg PO DAILY 05/19/20 06/07/22 History Atorvastatin [Lipitor] 80 mg PO HS 09/23/20 06/07/22 History Insulin Lispro [humaLOG Kwikpen] 15 units SQ AC-TID 11/11/20 06/07/22 History Aspirin EC [Ecotrin Low Dose] 81 mg PO DAILY 12/12/21 06/07/22 History Clopidogrel Bisulfate [Plavix] 75 mg PO DAILY 12/12/21 06/07/22 History Insulin Glargine,Hum.rec.anlog 46 unit SQ BID 12/12/21 06/07/22 History [Lantus Solostar Pen] Valsartan 80 mg PO HS 12/12/21 06/07/22 History Acetaminophen Tab [Tylenol] 650 mg PO Q6HR PRN tab 12/15/21 06/07/22 Rx Ipratropium-Albuterol Nebulize 3 ml INHALATION RT-Q6H PRN 12/15/21 06/07/22 History [Duoneb 0.5 mg-3 mg/3 ml Soln] Albuterol Sulfate [Albuterol 2 puff PO RT-Q6H 06/07/22 06/07/22 History Sulfate Hfa] Donepezil [Aricept] 5 mg PO DAILY 06/07/22 06/07/22 History Fluticasone/Umeclidin/Vilanter 1 puff INHALATION RT-DAILY 06/07/22 06/07/22 History [Trelegy Ellipta 100-62.5-25] Allergies Allergy/AdvReac Type Severity Reaction Status Date / Time codeine AdvReac Nausea & Verified 06/07/22 12:04 Vomiting Physical Exam Vitals: Vital Signs Temp Pulse Resp BP Pulse Ox 06/07/22 13:29 68 18 159/70 94 L 06/07/22 12:01 61 18 151/56 98 06/07/22 11:11 66 06/07/22 10:57 66 06/07/22 09:44 22 06/07/22 09:35 97.5 F L 60 18 142/51 96 Intake and Output 06/06/22 06/07/22 06/07/22 22:59 06:59 14:59 Other: Weight 95.254 kg GENERAL EXAM: Alert, very pleasant, 71-year-old white female, on 4 L of O2 nasal cannula the patient is breathing comfortably and her breathing is nonlabored this point in time. HEAD: Normocephalic/atraumatic. EYES: Normal reaction of pupils, equal size. Conjunctiva pink, sclera white. NOSE: Clear with pink turbinates. THROAT: No erythema or exudates. NECK: No masses, no JVD, no thyroid enlargement, no adenopathy. CHEST: No chest wall deformity. Symmetrical expansion. Diminished breath sounds along with some limited crackles in lung bases bilaterally. LUNGS: Equal air entry with no crackles, wheeze, rhonchi or dullness. CVS: Regular rate and rhythm, normal S1 and S2, no gallops, no murmurs, no rubs ABDOMEN: Soft, nontender. No hepatosplenomegaly, normal bowel sounds, no guarding or rigidity. EXTREMITIES: No clubbing, no edema, no cyanosis, 2+ pulses and upper and lower extremities. MUSCULOSKELETAL: Muscle strength and tone normal. SPINE: No scoliosis or deformity SKIN: No rashes CENTRAL NERVOUS SYSTEM: Alert and oriented oriented 3 and the patient has no focal neurological deficits. PSYCHIATRIC: Alert and oriented -3. Appropriate affect. Intact judgment and insight. Results - Laboratory Findings CBC and BMP: 06/07/22 11:59 06/07/22 11:59 Abnormal lab findings: Abnormal Labs 06/07/22 06/07/22 06/07/22 11:59 11:59 11:59 WBC 16.0 H MCHC 30.9 L Plt Count 503 H Neutrophils # 14.6 H Lymphocytes # 0.8 L Sodium 136 L Potassium 5.3 H Chloride 97 L BUN 24 H Glucose 319 H Troponin I 0.053 H* Assessment and Plan Plan: Acute exacerbation of COPD with possibly mild component of CHF/preserved LV function Chronic hypoxic respiratory failure still on 3-4 L of oxygen by nasal cannula COPD Previous COVID 19 infection Diabetes mellitus type 2, She is currently on Levemir 8 units along with NovoLog sliding scale coverage Coronary artery disease with previous coronary stenting and previous coronary artery bypass surgery 2016, previous history of bypass surgery and coronary stenting History of acute ischemic stroke post TPA administration with adequate neurological recovery. This occurred back in March 2021. Hypertension Hyperlipidemia Previous history of ESBL producing UTI Obesity Minimal troponin elevation/elevation, nonspecific Mild lactic acidosis, recovered Plan Keep the patient on 3-4 L per minute nasal cannula Titrate oxygen flow to maintain a saturation above 90% The patient will be given IV Solu-Medrol 60 mg every 6 hours. DuoNeb nebulized treatments [id number] allow the patient to use Trelegy Ellipta from home Resume all medications including long-acting insulin and a sliding scale cover age, anticipate a steroid-induced hyperglycemia. Lasix 40 mg IV push 1 in the emergency and the patient will be kept on IV Lasix for now We'll continue to follow.
[2022-06-07] MEDS ORDERED: AZITHROMYCIN 500 MG TAB PO SCH (16:00)
[2022-06-07] MEDS: IPRATROPIUM-ALBUTEROL 3 ML NEB INHALATION SCH ×2 (16:30→20:31)
[2022-06-07] MEDS ORDERED: INSULIN ASPART (NovoLOG) 100 UNIT/ML VIAL SQ SCH (17:30)
[2022-06-07 17:49] LABS: Glucose,Whole Blood >600 mg/dL (70-110)
[2022-06-07 17:49] LABS: Glucose,Whole Blood >600 mg/dL (70-110)
[2022-06-07 18:47] LABS: Glucose,Whole Blood >600 mg/dL (70-110)
[2022-06-07] MEDS ORDERED: DEXTROSE 50% SYRINGE 50 ML IVP PRN ×2 (18:54)
[2022-06-07] MEDS: INSULIN REGULAR 100 UNIT in SODIUM CHLORIDE 0.9% 100 ML IV SCH (20:33)
[2022-06-07] MEDS ORDERED: INSULIN DETEMIR (LEVEMIR) 100 UNIT/ML SYR SQ SCH (21:00)
[2022-06-07] MEDS ORDERED: VALSARTAN 80 MG TAB PO SCH (21:00)
[2022-06-07] MEDS ORDERED: ATORVASTATIN 80 MG TAB PO SCH (21:00)
[2022-06-07] MEDS ORDERED: METOPROLOL SUCCINATE (ER) 50 MG TAB.ER.24H PO SCH (21:00)
--- NOTE | 2022-06-07 21:40 | P.HPIM ---
History of Present Illness H&P Date: 06/07/22 Past Medical History Past Medical History: Asthma, Coronary Artery Disease (CAD), Chest Pain / Angina, Heart Failure, COPD, CVA/TIA, Dementia, Diabetes Mellitus, Hyperlipidemia, Hypertension, Myocardial Infarction ([place]), Pneumonia, Respiratory Disorder, Syncope, Vascular Disorder Additional Past Medical History / Comment(s): IDDM type II, neuropathy bilateral feet, 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, R caratid artery disease, valvular disease, pulmonary htn, bronchitis, home oxygen prn, poor vision/pt cannot recall reason, UTIs, rash/itching Last Myocardial Infarction Date:: 2014 History of Any Multi-Drug Resistant Organisms: ESBL Date of last positivie culture/infection: 04/15/21 MDRO Source:: ESBL URINE Past Surgical History: Cholecystectomy, Coronary Bypass/CABG, Heart Catheterization With Stent Additional Past Surgical History / Comment(s): PCI/stents in 2009 and 2014, 2016 CABG 3 vessel then sternal debridement for infection/removal of hardware, colonoscopy, bilateral cataract removals. Past Anesthesia/Blood Transfusion Reactions: No Reported Reaction Additional Past Anesthesia/Blood Transfusion Reaction / Comment(s): Claustrophobic Date of Last Stent Placement:: 2014 Past Psychological History: No Psychological Hx Reported Smoking Status: Former smoker Past Alcohol Use History: None Reported Past Drug Use History: None Reported - Past Family History Father Family Medical History: Coronary Artery Disease (CAD), Myocardial Infarction ([place]) Additional Family Medical History / Comment(s): STENT, OPEN HEART SURGERY Mother Additional Family Medical History / Comment(s): DEPRESSION, mental illness Medications and Allergies Home Medications Medication Instructions Recorded Confirmed Type Metoprolol Succinate [Toprol XL] 50 mg PO HS 08/30/18 06/07/22 History Furosemide [Lasix] 20 mg PO DAILY 05/19/20 06/07/22 History Atorvastatin [Lipitor] 80 mg PO HS 09/23/20 06/07/22 History Insulin Lispro [humaLOG Kwikpen] 15 units SQ AC-TID 11/11/20 06/07/22 History Aspirin EC [Ecotrin Low Dose] 81 mg PO DAILY 12/12/21 06/07/22 History Clopidogrel Bisulfate [Plavix] 75 mg PO DAILY 12/12/21 06/07/22 History Insulin Glargine,Hum.rec.anlog 46 unit SQ BID 12/12/21 06/07/22 History [Lantus Solostar Pen] Valsartan 80 mg PO HS 12/12/21 06/07/22 History Acetaminophen Tab [Tylenol] 650 mg PO Q6HR PRN tab 12/15/21 06/07/22 Rx Ipratropium-Albuterol Nebulize 3 ml INHALATION RT-Q6H PRN 12/15/21 06/07/22 Hi story [Duoneb 0.5 mg-3 mg/3 ml Soln] Albuterol Sulfate [Albuterol 2 puff PO RT-Q6H 06/07/22 06/07/22 History Sulfate Hfa] Donepezil [Aricept] 5 mg PO DAILY 06/07/22 06/07/22 History Fluticasone/Umeclidin/Vilanter 1 puff INHALATION RT-DAILY 06/07/22 06/07/22 History [Trelegy Ellipta 100-62.5-25] Allergies Allergy/AdvReac Type Severity Reaction Status Date / Time codeine AdvReac Nausea & Verified 06/07/22 12:04 Vomiting Physical Exam Vitals: Vital Signs Temp Pulse Resp BP Pulse Ox 06/07/22 21:16 74 15 129/67 98 06/07/22 20:42 72 06/07/22 20:32 72 06/07/22 17:58 78 26 H 139/70 98 06/07/22 16:45 76 06/07/22 16:31 76 06/07/22 16:00 75 24 110/47 97 06/07/22 13:29 68 18 159/70 94 L 06/07/22 12:01 61 18 151/56 98 06/07/22 11:11 66 06/07/22 10:57 66 06/07/22 09:44 22 06/07/22 09:35 97.5 F L 60 18 142/51 96 Intake and Output 06/07/22 06/07/22 06/07/22 06:59 14:59 22:59 Other: Weight 95.254 kg Results CBC & Chem 7: 06/07/22 11:59 06/07/22 18:16 Labs: Abnormal Lab Results - Last 24 Hours (Table) 06/07/22 06/07/22 06/07/22 Range/Units 11:59 11:59 11:59 WBC 16.0 H (3.8-10.6) k/uL MCHC 30.9 L (31.0-37.0) g/dL Plt Count 503 H (150-450) k/uL Neutrophils # 14.6 H (1.3-7.7) k/uL Lymphocytes # 0.8 L (1.0-4.8) k/uL APTT (22.0-30.0) sec Sodium 136 L (137-145) mmol/L Potassium 5.3 H (3.5-5.1) mmol/L Chloride 97 L (98-107) mmol/L BUN 24 H (7-17) mg/dL Glucose 319 H (74-99) mg/dL POC Glucose (mg/dL) (70-110) mg/dL Troponin I 0.053 H* (0.000-0.034) ng/mL 06/07/22 06/07/22 06/07/22 Range/Units 17:45 17:46 18:16 WBC (3.8-10.6) k/uL MCHC (31.0-37.0) g/dL Plt Count (150-450) k/uL Neutrophils # (1.3-7.7) k/uL Lymphocytes # (1.0-4.8) k/uL APTT (22.0-30.0) sec Sodium (137-145) mmol/L Potassium (3.5-5.1) mmol/L Chloride (98-107) mmol/L BUN (7-17) mg/dL Glucose 717 H* (74-99) mg/dL POC Glucose (mg/dL) >600 H >600 H (70-110) mg/dL Troponin I (0.000-0.034) ng/mL 06/07/22 06/07/22 Range/Units 18:46 20:16 WBC (3.8-10.6) k/uL MCHC (31.0-37.0) g/dL Plt Count (150-450) k/uL Neutrophils # (1.3-7.7) k/uL Lymphocytes # (1.0-4.8) k/uL APTT 33.3 H (22.0-30.0) sec Sodium (137-145) mmol/L Potassium (3.5-5.1) mmol/L Chloride (98-107) mmol/L BUN (7-17) mg/dL Glucose (74-99) mg/dL POC Glucose (mg/dL) >600 H (70-110) mg/dL Troponin I (0.000-0.034) ng/mL
[2022-06-07 21:46] LABS: Glucose,Whole Blood 524 mg/dL (70-110)
[2022-06-07] MEDS: IPRATROPIUM-ALBUTEROL 3 ML NEB INHALATION PRN (23:10)
[2022-06-07 23:13] LABS: Glucose,Whole Blood 441 mg/dL (70-110)
[2022-06-08 01:08] LABS: Glucose,Whole Blood 349 mg/dL (70-110)
[2022-06-08 02:32] LABS: Glucose,Whole Blood 290 mg/dL (70-110)
[2022-06-08] MEDS: IPRATROPIUM-ALBUTEROL 3 ML NEB INHALATION PRN (03:41)
[2022-06-08 04:34] LABS: Glucose,Whole Blood 216 mg/dL (70-110)
[2022-06-08] MEDS ORDERED: FUROSEMIDE 10 MG/ML 4 ML VIAL IV SCH ×2 (06:00→09:00)
[2022-06-08 06:15] LABS: Glucose,Whole Blood 132 mg/dL (70-110)
[2022-06-08 06:30] LABS: Basophils # (A) 0.1 k/uL (0-0.2); Basophils % (A) 0 %; Eosinophils % (A) 0 %; HCT 35.7 % (34.0-46.0); HGB 11.5 gm/dL (11.4-16.0); Hypochromasia Slight; Lymphocytes # (A) 0.9 k/uL (1.0-4.8); Lymphocytes % (A) 6 %; MCH 30.4 pg (25.0-35.0); MCHC 32.2 g/dL (31.0-37.0); MCV 94.6 fL (80.0-100.0); Mean Platelet Volume 8.5; Monocytes # (A) 0.8 k/uL (0-1.0); Monocytes % (A) 5 %; Neutrophils # (A) 13.5 k/uL (1.3-7.7); Neutrophils % (A) 87 %; Platelet Count 249 k/uL (150-450); RBC 3.78 m/uL (3.80-5.40); RDW 12.5 % (11.5-15.5); WBC 15.4 k/uL (3.8-10.6)
[2022-06-08 06:31] LABS: INR 0.9 (<1.2); Partial Thromboplastin Time 30.2 sec (22.0-30.0); Prothrombin Time 10.1 sec (9.0-12.0)
[2022-06-08] MEDS: IPRATROPIUM-ALBUTEROL 3 ML NEB INHALATION SCH ×2 (07:01→11:06)
[2022-06-08] MEDS: methylPREDNISolone SOD SUCCI 125 MG/2 ML VIAL IV SCH ×2 (07:10→08:08)
[2022-06-08 07:19] LABS: Potassium 4.4 mmol/L (3.5-5.1)
[2022-06-08 08:02] LABS: Glucose,Whole Blood 151 mg/dL (70-110)
[2022-06-08] MEDS ORDERED: FUROSEMIDE 20 MG TAB PO SCH (09:00)
[2022-06-08] MEDS ORDERED: ASPIRIN 81 MG PO SCH (09:00)
[2022-06-08] MEDS ORDERED: CLOPIDOGREL 75 MG TAB PO SCH (09:00)
[2022-06-08] MEDS ORDERED: DONEPEZIL 5 MG TAB PO SCH (09:00)
[2022-06-08 09:42] LABS: Glucose,Whole Blood 304 mg/dL (70-110)
[2022-06-08 10:33] VITALS: BP 111/52; RESP 22
[2022-06-08] MEDS: INSULIN REGULAR 100 UNIT in SODIUM CHLORIDE 0.9% 100 ML IV SCH (10:33)
--- NOTE | 2022-06-08 11:04 | P.CRDCN ---
History of Present Illness Consult date: 06/08/22 Consult reason: shortness of breath History of present illness: The patient is a 72-year-old female with multiple comorbid conditions, who presented to the emergency room with increased shortness of breath. The patient states she had had increased shortness of breath over the course the last week, but it progressively gotten worse in the last 24 hours. She states she was told she looked unwell according to her daughter, therefore she went to bed early. She awoke in the middle of the night with acute onset of difficulty breathing. She denies any associated chest pain or chest pressure. No dizziness or lightheadedness. She states she did have some weakness and fatigue. DIAGNOSTICS: EKG shows sinus rhythm with PACs and IVCD. No ST or T-wave abnormalities Chest x-ray shows mild pulmonary vascular congestion and trace left pleural effusion Lab data: WBC 16.0, hemoglobin 12.7, BUN 41.3, platelet 503, sodium 136, potassium 5.3, BUN 24, creatinine 0.91, hemoglobin A1c 11.4, magnesium 2.0, AST 26, ALT 34, ALP 101, BNP 1000, troponin 0.05, 0.05, COVID-19 negative PAST MEDICAL HISTORY: Diabetes, CVA, coronary artery disease status post prior CABG, hypertension, dyslipidemia REVIEW OF SYSTEMS: No fever or chills. No diaphoresis. Patient denies headache, dizziness, blurred vision, double vision. Patient denies any stomach discomfort. No nausea, vomiting. No hematochezia. No hematemesis. Denies any black stools or blood in his stools. Denies dysuria or hematuria. No muscle weakness or numbness. Denies chest pain or chest pressure. Positive for dyspnea. PHYSICAL EXAMINATION: This is a 72-year-old female in no apparent distress at the time of my examination. HEENT: Head is atraumatic, normocephalic. Pupils are equal, round. Sclerae anicteric. Conjunctivae are clear. Mucous membranes of the mouth are moist. Neck is supple. There is no jugular venous distention. No carotid bruit is heard. CHEST EXAMINATION: Lungs are diminished to auscultation. No chest wall tenderness is noted on palpation or with deep breathing. HEART EXAMINATION: Heart regular rate and rhythm. S1, S2 heard. No murmurs, gallops or rub. ABDOMEN: Soft, nontender. Bowel sounds are heard. No organomegaly noted. EXTREMITIES: 2+ peripheral pulses with no evidence of peripheral edema and no calf tenderness noted. NEUROLOGIC EXAMINATION: Patient is awake, alert and oriented x3. FINAL ASSESSMENT AND PLAN: Shortness of breath, secondary to COPD exacerbation Elevated troponin of unclear significance Diabetes mellitus, uncontrolled, hemoglobin A1c 11 History of coronary artery disease History of CVA History of hypertension History of dyslipidemia PLAN: Discontinue heparin drip Continue furosemide Continue aggressive pulmonary hygiene Further recommendations to be based on clinical course I am dictating on behalf of Dr Be Cruz's history/physical and assessment/plan. 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, R caratid artery disease, valvular disease, pulmonary htn, bronchitis, home oxygen prn, poor vision/pt cannot recall reason, UTIs, rash/itching Last Myocardial Infarction Date:: 2014 History of Any Multi-Drug Resistant Organisms: ESBL Date of last positivie culture/infection: 04/15/21 MDRO Source:: ESBL URINE Past Surgical History: Cholecystectomy, Coronary Bypass/CABG, Heart Catheterization With Stent Additional Past Surgical History / Comment(s): PCI/stents in 2009 and 2014, 2016 CABG 3 vessel then sternal debridement for infection/removal of hardware, colonoscopy, bilateral cataract removals. Past Anesthesia/Blood Transfusion Reactions: No Reported Reaction Additional Past Anesthesia/Blood Transfusion Reaction / Comment(s): Claustrophobic Date of Last Stent Placement:: 2014 Past Psychological History: No Psychological Hx Reported Smoking Status: Former smoker Past Alcohol Use History: None Reported Past Drug Use History: None Reported - Past Family History Father Family Medical History: Coronary Artery Disease (CAD), Myocardial Infarction ([place]) Additional Family Medical History / Comment(s): STENT, OPEN HEART SURGERY Mother Additional Family Medical History / Comment(s): DEPRESSION, mental illness Medications and Allergies Home Medications Medication Instructions Recorded Confirmed Type Metoprolol Succinate [Toprol XL] 50 mg PO HS 08/30/18 06/07/22 History Furosemide [Lasix] 20 mg PO DAILY 05/19/20 06/07/22 History Atorvastatin [Lipitor] 80 mg PO HS 09/23/20 06/07/22 History Insulin Lispro [humaLOG Kwikpen] 15 units SQ AC-TID 11/11/20 06/07/22 History Aspirin EC [Ecotrin Low Dose] 81 mg PO DAILY 12/12/21 06/07/22 History Clopidogrel Bisulfate [Plavix] 75 mg PO DAILY 12/12/21 06/07/22 History Insulin Glargine,Hum.rec.anlog 46 unit SQ BID 12/12/21 06/07/22 History [Lantus Solostar Pen] Valsartan 80 mg PO HS 12/12/21 06/07/22 History Acetaminophen Tab [Tylenol] 650 mg PO Q6HR PRN tab 12/15/21 06/07/22 Rx Ipratropium-Albuterol Nebulize 3 ml INHALATION RT-Q6H PRN 12/15/21 06/07/22 History [Duoneb 0.5 mg-3 mg/3 ml Soln] Albuterol Sulfate [Albuterol 2 puff PO RT-Q6H 06/07/22 06/07/22 History Sulfate Hfa] Donepezil [Aricept] 5 mg PO DAILY 06/07/22 06/07/22 History Fluticasone/Umeclidin/Vilanter 1 puff INHALATION RT-DAILY 06/07/22 06/07/22 History [Trelegy Ellipta 100-62.5-25] Allergies Allergy/AdvReac Type Severity Reaction Status Date / Time codeine AdvReac Nausea & Verified 06/07/22 12:04 Vomiting Physical Exam Vitals: Vital Signs Pulse Resp BP Pulse Ox 06/08/22 10:26 68 22 111/52 93 L 06/08/22 08:19 78 18 120/68 06/08/22 07:12 65 06/08/22 07:01 60 94 L 06/08/22 03:51 80 06/08/22 03:43 72 06/08/22 02:35 69 16 122/68 98 06/07/22 23:19 71 06/07/22 23:10 71 06/07/22 21:16 74 15 129/67 98 06/07/22 20:42 72 06/07/22 20:32 72 06/07/22 17:58 78 26 H 139/70 98 06/07/22 16:45 76 06/07/22 16:31 76 06/07/22 16:00 75 24 110/47 97 06/07/22 13:29 68 18 159/70 94 L 06/07/22 12:01 61 18 151/56 98 06/07/22 11:11 66 Intake and Output 06/07/22 06/08/22 06/08/22 22:59 06:59 14:59 Intake Total 80.4 0 Balance 80.4 0 Intake: Intake, IV Titration 80.4 0 Amount Insulin Regular 100 unit 80.4 0 In Sodium Chloride 0.9% 100 ml @ Titrate IV .Q0M [facility] Rx#:[id number] Results 06/08/22 05:29 06/08/22 05:29 Cardiac Enzymes 06/07/22 06/07/22 06/08/22 Range/Units 11:59 11:59 05:29 AST 26 (14-36) U/L Troponin I 0.053 H* 0.563 H* (0.000-0.034) ng/mL Coagulation 06/07/22 06/08/22 Range/Units 20:16 05:29 PT 10.1 (9.0-12.0) sec APTT 33.3 H 30.2 H (22.0-30.0) sec CBC 06/07/22 06/08/22 Range/Units 11:59 05:29 WBC 16.0 H 15.4 H (3.8-10.6) k/uL RBC 4.29 3.78 L (3.80-5.40) m/uL Hgb 12.7 11.5 (11.4-16.0) gm/dL Hct 41.3 35.7 (34.0-46.0) % Plt Count 503 H 249 (150-450) k/uL Comprehensive Metabolic Panel 06/07/22 06/07/22 06/08/22 Range/Units 11:59 18:16 05:29 Sodium 136 L 135 L (137-145) mmol/L Potassium 5.3 H 4.4 (3.5-5.1) mmol/L Chloride 97 L 96 L (98-107) mmol/L Carbon Dioxide 30 28 (22-30) mmol/L BUN 24 H 41 H (7-17) mg/dL Creatinine 0.91 0.94 (0.52-1.04) mg/dL Glucose 319 H 717 H* 165 H (74-99) mg/dL Calcium 9.1 9.0 (8.4-10.2) mg/dL AST 26 (14-36) U/L ALT 34 (4-34) U/L Alkaline Phosphatase 101 (38-126) U/L Total Protein 6.3 (6.3-8.2) g/dL Albumin 3.6 (3.5-5.0) g/dL Current Medications Generic Name Dose Route Start Last Admin Trade Name Freq PRN Reason Stop Dose Admin Acetaminophen 650 mg 06/07/22 15:07 Acetaminophen Tab 325 Mg Tab PO Q6HR PRN Mild Pain or Fever > 100.5 Albuterol/Ipratropium 3 ml 06/07/22 13:41 06/08/22 03:41 Ipratropium-Albuterol 3 Ml Neb INHALATION 3 ml RT-Q2H PRN Administration Shortness Of Breath Or Wheezing Albuterol/Ipratropium 3 ml 06/07/22 16:00 06/08/22 07:01 Ipratropium-Albuterol 3 Ml Neb INHALATION 3 ml RT-QID KAREN Administration Aspirin 81 mg 06/08/22 09:00 06/08/22 10:38 Aspirin 81 Mg PO 81 mg DAILY KAREN Administration Atorvastatin Calcium 80 mg 06/07/22 21:00 06/08/22 02:34 Atorvastatin 80 Mg Tab PO 80 mg HS KAREN Administration Azithromycin 500 mg 06/07/22 16:00 06/07/22 16:05 Azithromycin 500 Mg Tab PO 06/09/22 16:01 500 mg Q24H KAREN Administration Protocol Clopidogrel Bisulfate 75 mg 06/08/22 09:00 06/08/22 10:38 Clopidogrel 75 Mg Tab PO 75 mg DAILY KAREN Administration Dextrose/Water 25 ml 06/07/22 18:54 Dextrose 50% Syringe 50 Ml IVP PER PROTOCOL PRN Hypoglycemia Protocol Dextrose/Water 50 ml 06/07/22 18:54 Dextrose 50% Syringe 50 Ml IVP PER PROTOCOL PRN Hypoglycemia Protocol Donepezil HCl 5 mg 06/08/22 09:00 Donepezil 5 Mg Tab PO DAILY KAREN Furosemide 40 mg 06/08/22 09:00 06/08/22 10:20 Furosemide 10 Mg/Ml 4 Ml Vial IV Not Given DAILY KAREN Insulin Human Regular 100 unit 100 mls @ 0 mls/hr 06/07/22 19:00 06/08/22 10:33 / Sodium Chloride IV 8 units/hr .Q0M KAREN 8 mls/hr Administration Protocol Titrate Methylprednisolone Sodium Succinate 60 mg 06/07/22 18:00 06/08/22 08:08 Methylprednisolone Sod Succi 125 Mg/2 Ml Vial IV 60 mg Q6HR KAREN Administration Metoprolol Succinate 50 mg 06/07/22 21:00 06/08/22 02:34 Metoprolol Succinate (Er) 50 Mg Tab.Er.24h PO 50 mg HS KAREN Administration Naloxone HCl 0.2 mg 06/07/22 13:41 Naloxone 0.4 Mg/Ml 1 Ml Vial IVP Q2M PRN Opioid Reversal Valsartan 80 mg 06/07/22 21:00 06/08/22 02:34 Valsartan 80 Mg Tab PO 80 mg HS KAREN Administration Intake and Output 06/07/22 06/08/22 06/08/22 22:59 06:59 14:59 Intake Total 80.4 0 Balance 80.4 0 Intake: Intake, IV Titration 80.4 0 Amount Insulin Regular 100 unit 80.4 0 In Sodium Chloride 0.9% 100 ml @ Titrate IV .Q0M KAREN Rx#:[id number] 06/08/22 05:29 06/08/22 05:29
[2022-06-08 11:17] VITALS: PULSE 62
--- NOTE | 2022-06-08 11:50 | P.PN ---
Subjective Progress Note Date: 06/08/22 This is a 72-year-old female patient, morbidly obese, essentially a central obesity with known history of COPD and chronic hypoxic respiratory failure [place] on oxygen at the fifth on a nasal cannula. The patient was involved in a Covid 19 infection back in December 2021, which she recovers. She had another hospitalization for COPD exacerbation following that and she discovered and she is currently living at home with her daughter. She is usingTrelegy Ellipta 1 puff a day on a regular basis and she is also on albuterol neb treatments around the clock as needed. The patient was noted by her daughter that she was getting more short of breath and she was having increased cough and for that reason she was transferred or to the emergency department and the patient was accordingly diagnosed having an acute COPD exacerbation and she was hospitalized. The patient has a baseline FEV1 of 54% of predicted and she is option independently as per minute nasal cannula. She has history of diabetes mellitus type 2, coronary artery disease with previous coronary artery bypass surgery and previous coronary stenting. She has also been involved in a previous CVA requiring to be administration in March 2021, other comorbid conditions include hypertension, hyperlipidemia, previous urinary tract infection with ESBL producing gram-negative E. coli. The last hospital admission for COPD exacerbation was in January 2022. Blood work shows a white cell count of 16 with a hemoglobin of 12.7 and a platelet count of 503. Potassium levels of 5.3 with a sodium level of 136. BUN is at 24 with a creatinine of 0.9. ProBNP level is 1000. Troponin I level is 0.05. The EKG is showing a normal sinus rhythm. Th ere may be a first-degree AV block. No significant ST segment elevations or depressions. There may be some LVH also noted. As for the chest x-ray, there is cardiomegaly. There may be some increased pulmonary vascular markings along with cardiomegaly. No other acute abnormalities are noted. She does have some mild chronic edema lower extremities bilaterally. 06/08/2022, the patient is still in the emergency department, awaiting a bed. She is resting comfortably. No magistral difficulties. She feels that the overall respiratory status has been back to baseline. She was seen by cardioelijah girard and she was started on Lasix 40 mg IV on a daily basis. I also had the patient on a combination of bronchodilators and I treated her with steroids for the past 24 hours a night I'm going to put on a prednisone burst and taper. Blood work from today shows a white cell count of 15, hemoglobin of 11.5, normal coagulation profile, BUN of 41 with a creatinine of 0.94, sodium level is at 135 Objective - Vital Signs Vital signs: Vital Signs Temp 97.5 F L 06/07/22 09:35 Pulse 62 06/08/22 11:17 Resp 22 06/08/22 10:26 BP 111/52 06/08/22 10:26 Pulse Ox 93 L 06/08/22 10:26 FiO2 Intake & Output 06/07/22 06/08/22 06/08/22 18:59 06:59 18:59 Intake Total 80.4 0 Balance 80.4 0 Weight 95.254 kg Intake: Intake, IV Titration 80.4 0 Amount Insulin Regular 100 unit 80.4 0 In Sodium Chloride 0.9% 100 ml @ Titrate IV .Q0M [facility] Rx#:[id number] - Exam GENERAL EXAM: Alert, very pleasant, 71-year-old white female, on 4 L of O2 nasal cannula the patient is breathing comfortably and her breathing is nonlabored this point in time. HEAD: Normocephalic/atraumatic. EYES: Normal reaction of pupils, equal size. Conjunctiva pink, sclera white. NOSE: Clear with pink turbinates. THROAT: No erythema or exudates. NECK: No masses, no JVD, no thyroid enlargement, no adenopathy. CHEST: No chest wall deformity. Symmetrical expansion. Diminished breath sounds along with some limited crackles in lung bases bilaterally. LUNGS: Equal air entry with no crackles, wheeze, rhonchi or dullness. CVS: Regular rate and rhythm, normal S1 and S2, no gallops, no murmurs, no rubs ABDOMEN: Soft, nontender. No hepatosplenomegaly, normal bowel sounds, no guarding or rigidity. EXTREMITIES: No clubbing, no edema, no cyanosis, 2+ pulses and upper and lower extremities. MUSCULOSKELETAL: Muscle strength and tone normal. SPINE: No scoliosis or deformity SKIN: No rashes CENTRAL NERVOUS SYSTEM: Alert and oriented oriented 3 and the patient has no focal neurological deficits. PSYCHIATRIC: Alert and oriented -3. Appropriate affect. Intact judgment and insight. - Labs CBC & Chem 7: 06/08/22 05:29 06/08/22 05:29 Labs: Abnormal Lab Results - Last 24 Hours (Table) 06/07/22 06/07/22 06/07/22 Range/Units 11:59 11:59 11:59 WBC 16.0 H (3.8-10.6) k/uL RBC (3.80-5.40) m/uL MCHC 30.9 L (31.0-37.0) g/dL Plt Count 503 H (150-450) k/uL Neutrophils # 14.6 H (1.3-7.7) k/uL Lymphocytes # 0.8 L (1.0-4.8) k/uL APTT (22.0-30.0) sec Sodium 136 L (137-145) mmol/L Potassium 5.3 H (3.5-5.1) mmol/L Chloride 97 L (98-107) mmol/L BUN 24 H (7-17) mg/dL Glucose 319 H (74-99) mg/dL POC Glucose (mg/dL) (70-110) mg/dL Hemoglobin A1c (0.0-6.0) % Troponin I 0.053 H* (0.000-0.034) ng/mL 06/07/22 06/07/22 06/07/22 Range/Units 17:45 17:46 18:16 WBC (3.8-10.6) k/uL RBC (3.80-5.40) m/uL MCHC (31.0-37.0) g/dL Plt Count (150-450) k/uL Neutrophils # (1.3-7.7) k/uL Lymphocytes # (1.0-4.8) k/uL APTT (22.0-30.0) sec Sodium (137-145) mmol/L Potassium (3.5-5.1) mmol/L Chloride (98-107) mmol/L BUN (7-17) mg/dL Glucose 717 H* (74-99) mg/dL POC Glucose (mg/dL) >600 H >600 H (70-110) mg/dL Hemoglobin A1c (0.0-6.0) % Troponin I (0.000-0.034) ng/mL 06/07/22 06/07/22 06/07/22 Range/Units 18:46 20:16 20:16 WBC (3.8-10.6) k/uL RBC (3.80-5.40) m/uL MCHC (31.0-37.0) g/dL Plt Count (150-450) k/uL Neutrophils # (1.3-7.7) k/uL Lymphocytes # (1.0-4.8) k/uL APTT 33.3 H (22.0-30.0) sec Sodium (137-145) mmol/L Potassium (3.5-5.1) mmol/L Chloride (98-107) mmol/L BUN (7-17) mg/dL Glucose (74-99) mg/dL POC Glucose (mg/dL) >600 H (70-110) mg/dL Hemoglobin A1c 11.4 H (0.0-6.0) % Troponin I (0.000-0.034) ng/mL 06/07/22 06/07/22 06/08/22 Range/Units 21:44 23:11 01:07 WBC (3.8-10.6) k/uL RBC (3.80-5.40) m/uL MCHC (31.0-37.0) g/dL Plt Count (150-450) k/uL Neutrophils # (1.3-7.7) k/uL Lymphocytes # (1.0-4.8) k/uL APTT (22.0-30.0) sec Sodium (137-145) mmol/L Potassium (3.5-5.1) mmol/L Chloride (98-107) mmol/L BUN (7-17) mg/dL Glucose (74-99) mg/dL POC Glucose (mg/dL) 524 H 441 H 349 H (70-110) mg/dL Hemoglobin A1c (0.0-6.0) % Troponin I (0.000-0.034) ng/mL 06/08/22 06/08/22 06/08/22 Range/Units 02:30 04:32 05:29 WBC 15.4 H (3.8-10.6) k/uL RBC 3.78 L (3.80-5.40) m/uL MCHC (31.0-37.0) g/dL Plt Count (150-450) k/uL Neutrophils # 13.5 H (1.3-7.7) k/uL Lymphocytes # 0.9 L (1.0-4.8) k/uL APTT (22.0-30.0) sec Sodium (137-145) mmol/L Potassium (3.5-5.1) mmol/L Chloride (98-107) mmol/L BUN (7-17) mg/dL Glucose (74-99) mg/dL POC Glucose (mg/dL) 290 H 216 H (70-110) mg/dL Hemoglobin A1c (0.0-6.0) % Troponin I (0.000-0.034) ng/mL 06/08/22 06/08/22 06/08/22 Range/Units 05:29 05:29 05:29 WBC (3.8-10.6) k/uL RBC (3.80-5.40) m/uL MCHC (31.0-37.0) g/dL Plt Count (150-450) k/uL Neutrophils # (1.3-7.7) k/uL Lymphocytes # (1.0-4.8) k/uL APTT 30.2 H (22.0-30.0) sec Sodium 135 L (137-145) mmol/L Potassium (3.5-5.1) mmol/L Chloride 96 L (98-107) mmol/L BUN 41 H (7-17) mg/dL Glucose 165 H (74-99) mg/dL POC Glucose (mg/dL) (70-110) mg/dL Hemoglobin A1c (0.0-6.0) % Troponin I 0.563 H* (0.000-0.034) ng/mL 06/08/22 06/08/22 06/08/22 Range/Units 06:13 08:00 09:41 WBC (3.8-10.6) k/uL RBC (3.80-5.40) m/uL MCHC (31.0-37.0) g/dL Plt Count (150-450) k/uL Neutrophils # (1.3-7.7) k/uL Lymphocytes # (1.0-4.8) k/uL APTT (22.0-30.0) sec Sodium (137-145) mmol/L Potassium (3.5-5.1) mmol/L Chloride (98-107) mmol/L BUN (7-17) mg/dL Glucose (74-99) mg/dL POC Glucose (mg/dL) 132 H 151 H 304 H (70-110) mg/dL Hemoglobin A1c (0.0-6.0) % Troponin I (0.000-0.034) ng/mL Assessment and Plan Plan: Acute exacerbation of COPD with possibly mild component of CHF/preserved LV function, clinically improving Chronic hypoxic respiratory failure still on 3-4 L of oxygen by nasal cannula COPD Previous COVID 19 infection Diabetes mellitus type 2, She is currently on Levemir 8 units along with NovoLog sliding scale coverage Coronary artery disease with previous coronary stenting and previous coronary artery bypass surgery 2016, previous history of bypass surgery and coronary stenting History of acute ischemic stroke post TPA administration with adequate neurological recovery. This occurred back in March 2021. Hypertension Hyperlipidemia Previous history of ESBL producing UTI Obesity Minimal troponin elevation/elevation, nonspecific Mild lactic acidosis, recovered Plan I think overall the patient's condition is stable and suspected . She may be potentially consider for discharge. I will put her on oral Lasix and a prednisone burst taper.\Allow the patient to use Trelegy Ellipta from home Resume all medications including long-acting insulin and a sliding scale coverage, anticipate a steroid-induced hyperglycemia. We'll continue to follow. Possible home today ,if all of the consultants agree
[2022-06-08] MEDS ORDERED: INSULIN ASPART (NovoLOG) 100 UNIT/ML VIAL SQ SCH (12:30)
--- NOTE | 2022-06-08 15:44 | CDI ---
Documentation Clarification Form Date: 06/08/2022 03:26:34 PM From: Arlene Foley RN, CCDS Email: [email or web address] Admit Date: 06/07/2022 02:39:00 PM Patient Name: Nancy Shah Visit Number: [id number] Discharge Date: 06/08/2022 02:21:00 PM ATTENTION: The Clinical Documentation Specialists (CDI) and [facility] Coding Staff appreciate your assistance in clarifying documentation. Please respond to the clarification below the line at the bottom and electronically sign. The CDI & [facility] Coding staff will review the response and follow-up if needed. Please note: Queries are made part of the Legal Health Record. If you have any questions, please contact the author of this message via ITS. Dr. Tesha Palomo Your patient has the documented diagnosis of unspecified CHF in the H&P. Additional information regarding the type and acuity of CHF is requested. History/Risk Factors: Asthma, CAD, angina, heart failure, COPD, CVA/TIA, dementia, DM, hyperlipidemia, HTN, PR, vascular disorder, home O2 prn Clinical Indicators: SOB, dyspnea, mild chronic LE edema 06/07 Pulmonary consult: "Acute exacerbation of COPD with possibly mild component of CHF/preserved LV function." VS/Pulse OX: RR 15-26, pulse ox 93-98% on 3-4L NC 06/07 BNP: 1030 06/07 Chest X Ray: Cardiomegaly and interstitial/vascular density and trace left effusion. Correlate for mild CHF with pulmonary vascular congestion. Treatment: Lasix 40mg IV x1 on 06/07 then Lasix 40mg IV daily. Metoprolol 50mg QHS, Duonebs, supplemental oxygen In your professional opinion, can you please clarify the acuity and type of CHF if known? [ ] Acute Diastolic Heart Failure (preserved EF) [ ] Chronic Diastolic Heart Failure (preserved EF) [ x ] Acute on Chronic Diastolic Heart Failure (preserved EF) [ ] Other, please specify MTDD
--- NOTE | 2022-06-08 15:44 | CDI ---
Documentation Clarification Form Date: 06/08/2022 03:26:34 PM From: Arlene Foley RN, CCDS Email: [email or web address] Admit Date: 06/07/2022 02:39:00 PM Patient Name: Nancy Shah Visit Number: [id number] Discharge Date: 06/08/2022 02:21:00 PM ATTENTION: The Clinical Documentation Specialists (CDI) and [facility] Coding Staff appreciate your assistance in clarifying documentation. Please respond to the clarification below the line at the bottom and electronically sign. The CDI & [facility] Coding staff will review the response and follow-up if needed. Please note: Queries are made part of the Legal Health Record. If you have any questions, please contact the author of this message via ITS. Dr. Tesha Palomo Your patient has the documented diagnosis of unspecified CHF in the H&P. Additional information regarding the type and acuity of CHF is requested. History/Risk Factors: Asthma, CAD, angina, heart failure, COPD, CVA/TIA, dementia, DM, hyperlipidemia, HTN, PR, vascular disorder, home O2 prn Clinical Indicators: SOB, dyspnea, mild chronic LE edema 06/07 Pulmonary consult: "Acute exacerbation of COPD with possibly mild component of CHF/preserved LV function." VS/Pulse OX: RR 15-26, pulse ox 93-98% on 3-4L NC 06/07 BNP: 1030 06/07 Chest X Ray: Cardiomegaly and interstitial/vascular density and trace left effusion. Correlate for mild CHF with pulmonary vascular congestion. Treatment: Lasix 40mg IV x1 on 06/07 then Lasix 40mg IV daily. Metoprolol 50mg QHS, Duonebs, supplemental oxygen In your professional opinion, can you please clarify the acuity and type of CHF if known? [ ] Acute Diastolic Heart Failure (preserved EF) [ ] Chronic Diastolic Heart Failure (preserved EF) [ x ] Acute on Chronic Diastolic Heart Failure (preserved EF) [ ] Other, please specify MTDD
== END 2022-06-08 14:21 | disposition home or self-care (01) | DRG 190 ==
LOC: EC 09:27 → 3SCARD 14:39
PROVIDERS: ADMIT Internal Medicine; ATTEND Internal Medicine
DX: J44.1 Chronic obstructive pulmonary disease with (acute) exacerbation (principal); I50.33 Acute on chronic diastolic (congestive) heart failure; J96.11 Chronic respiratory failure with hypoxia; E87.20 Acidosis, unspecified; E11.42 Type 2 diabetes mellitus with diabetic polyneuropathy; I11.0 Hypertensive heart disease with heart failure; F03.90 Unspecified dementia, unspecified severity, without behavioral disturbance, psychotic disturbance, mood disturbance, and anxiety; E66.01 Morbid (severe) obesity due to excess calories; Z68.37 Body mass index [BMI] 37.0-37.9, adult; F40.240 Claustrophobia; I25.10 Atherosclerotic heart disease of native coronary artery without angina pectoris; E78.5 Hyperlipidemia, unspecified; R77.8 Other specified abnormalities of plasma proteins; R53.1 Weakness; Z20.822 Contact with and (suspected) exposure to COVID-19; Z86.16 Personal history of COVID-19; Z95.5 Presence of coronary angioplasty implant and graft; Z87.891 Personal history of nicotine dependence; Z95.1 Presence of aortocoronary bypass graft; Z79.899 Other long term (current) drug therapy; Z79.82 Long term (current) use of aspirin; Z79.4 Long term (current) use of insulin; Z79.02 Long term (current) use of antithrombotics/antiplatelets; Z88.5 Allergy status to narcotic agent; Z79.51 Long term (current) use of inhaled steroids; Z86.73 Personal history of transient ischemic attack (TIA), and cerebral infarction without residual deficits; I25.2 Old myocardial infarction
CPT/HCPCS: 36415; 71046; 80048; 80053; 82947; 83036; 83735; 83880; 84484; 85025; 85610; 85730; 87635; 93005; 94640; 94760; 96365; 96366; 96375; 99285

== ENCOUNTER 2022-06-16 11:38 | Inpatient (IN) | payer MEDICARE ==
[2022-06-16] MEDS ORDERED: IPRATROPIUM-ALBUTEROL 3 ML NEB INHALATION STA (11:47)
[2022-06-16] MEDS ORDERED: DEXAMETHASONE SOD PHOSPHATE 10 MG/ML 1 ML VIAL IVP STA (11:47)
--- NOTE | 2022-06-16 12:02 | ED ---
SOB HPI - General Chief Complaint: Shortness of Breath Stated Complaint: SOB Time Seen by Provider: 06/16/22 11:45 Source: patient, EMS Mode of arrival: EMS Limitations: no limitations - History of Present Illness Initial Comments: This is a 72-year-old female who presents to the emergency department for difficulty breathing since this morning. She was admitted here earlier this month for a COPD exacerbation and elevated troponin. She is on oxygen at home, however she is not sure how much and if she has had to increase how much she uses. Her family gave her a breathing treatment at home with no relief. Denies any fevers, chest pain, or sick contacts. Denies any fevers, chills, sore throat, chest pain, palpitations, abdominal pain, nausea, vomiting, diarrhea, back pain, or headaches. MD Complaint: shortness of breath Onset/Timin -: week(s) Known History Of: COPD, congestive heart failure - Related Data Home Medications Medication Instructions Recorded Confirmed Metoprolol Succinate [Toprol XL] 50 mg PO HS 08/30/18 06/16/22 Atorvastatin [Lipitor] 80 mg PO HS 09/23/20 06/16/22 Insulin Lispro [humaLOG Kwikpen] 15 units SQ AC-TID 11/11/20 06/16/22 Aspirin EC [Ecotrin Low Dose] 81 mg PO DAILY 12/12/21 06/16/22 Clopidogrel Bisulfate [Plavix] 75 mg PO DAILY 12/12/21 06/16/22 Insulin Glargine,Hum.rec.anlog 46 unit SQ BID 12/12/21 06/16/22 [Lantus Solostar Pen] Valsartan 80 mg PO HS 12/12/21 06/16/22 Ipratropium-Albuterol Nebulize 3 ml INHALATION RT-Q6H PRN 12/15/21 06/16/22 [Duoneb 0.5 mg-3 mg/3 ml Soln] Albuterol Sulfate [Albuterol 2 puff INHALATION RT-Q6H PRN 06/07/22 06/16/22 Sulfate Hfa] Donepezil [Aricept] 5 mg PO DAILY 06/07/22 06/16/22 Fluticasone/Umeclidin/Vilanter 1 puff INHALATION RT-DAILY 06/07/22 06/16/22 [Trelegy Ellipta 100-62.5-25] predniSONE See Taper PO DIRECTED 06/16/22 06/16/22 Previous Rx's Medication Instructions Recorded Acetaminophen Tab [Tylenol] 650 mg PO Q6HR PRN tab 12/15/21 Furosemide [Lasix] 40 mg PO DAILY #30 tablet 06/08/22 Allergies Allergy/AdvReac Type Severity Reaction Status Date / Time codeine AdvReac Nausea & Verified 06/16/22 16:20 Vomiting Review of Systems ROS Statement: Those systems with pertinent positive or pertinent negative responses have been documented in the HPI. ROS Other: All systems not noted in ROS Statement are negative. 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, R caratid artery disease, valvular disease, pulmonary htn, bronchitis, home oxygen prn, poor vision/pt cannot recall reason, UTIs, rash/itching Last Myocardial Infarction Date:: 2014 History of Any Multi-Drug Resistant Organisms: ESBL Date of last positivie culture/infection: 04/15/21 MDRO Source:: ESBL URINE Past Surgical History: Cholecystectomy, Coronary Bypass/CABG, Heart Catheterization With Stent Additional Past Surgical History / Comment(s): PCI/stents in 2009 and 2014, 2016 CABG 3 vessel then sternal debridement for infection/removal of hardware, colonoscopy, bilateral cataract removals. Past Anesthesia/Blood Transfusion Reactions: No Reported Reaction Additional Past Anesthesia/Blood Transfusion Reaction / Comment(s): Claustrophobic Date of Last Stent Placement:: 2014 Past Psychological History: No Psychological Hx Reported Smoking Status: Former smoker Past Alcohol Use History: None Reported Past Drug Use History: None Reported - Past Family History Father Family Medical History: Coronary Artery Disease (CAD), Myocardial Infarction (MS) Additional Family Medical History / Comment(s): STENT, OPEN HEART SURGERY Mother Additional Family Medical History / Comment(s): DEPRESSION, mental illness General Exam Limitations: no limitations General appearance: alert, in no apparent distress Head exam: Present: atraumatic, normocephalic, normal inspection Respiratory exam: Present: rhonchi, decreased breath sounds, prolonged expiratory Cardiovascular Exam: Present: regular rate, normal rhythm, normal heart sounds. Absent: systolic murmur, diastolic murmur, rubs, gallop, clicks Neurological exam: Present: alert, oriented X3, CN II-XII intact Psychiatric exam: Present: normal affect, normal mood Skin exam: Present: warm, dry, intact, normal color. Absent: rash Course Vital Signs 06/16/22 06/16/22 06/16/22 11:52 12:19 13:32 Temperature 97.9 F Pulse Rate 84 84 Respiratory 16 22 Rate Blood Pressure 124/49 O2 Sat by Pulse 95 Oximetry 06/16/22 06/16/22 06/16/22 13:50 14:20 16:12 Temperature Pulse Rate 84 75 76 Respiratory 18 18 Rate Blood Pressure 138/95 119/35 O2 Sat by Pulse 100 88 L Oximetry 06/16/22 16:36 Temperature Pulse Rate Respiratory Rate Blood Pressure O2 Sat by Pulse 95 Oximetry Medical Decision Making - Medical Decision Making This is a 72-year-old female who presents to the emergency department for difficulty breathing. Lab work reveals significant leukocytosis. Chest x-ray does not identify any signs of pneumonia or other infectious process. The leukocytosis may be reactive or related to an underlying infectious process. Urinalysis may be mildly positive for a urinary tract infection. Troponin is elevated, however this is noted to be a chronic finding for the patient. Additionally, BNP is elevated, but relatively stable compared to prior values. D-dimer is considered normal once the value was corrected for the patient's age. COVID and influenza testing negative. Patient given a DuoNeb breathing treatment and a dose of Decadron in the emergency department. Patient's oxygen saturation is approximately 88% on room air. She also has very noisy breathing and is clearly working harder to breathe. Given the shortness of breath and leukocytosis, patient will be admitted to medicine for COPD exacerbation. Blood and sputum cultures were ordered with results pending. Computed tomography scan of the chest ordered per admitting team's request. Results pending at the time of admission. This case was discussed in detail with the attending ED physician. Presentation, findings, and treatment plan discussed in detail as well. - Lab Data Result diagrams: 06/16/22 12:07 06/16/22 12:07 Lab Results 06/16/22 06/16/22 06/16/22 Range/Units 12:07 12:07 12:07 WBC 23.4 H (3.8-10.6) k/uL RBC 4.12 (3.80-5.40) m/uL Hgb 12.1 (11.4-16.0) gm/dL Hct 38.1 (34.0-46.0) % MCV 92.4 (80.0-100.0) fL MCH 29.4 (25.0-35.0) pg MCHC 31.8 (31.0-37.0) g/dL RDW 13.4 (11.5-15.5) % Plt Count 280 (150-450) k/uL MPV 8.1 Neutrophils % 86 % Lymphocytes % 7 % Monocytes % 4 % Eosinophils % 1 % Basophils % 0 % Neutrophils # 20.1 H (1.3-7.7) k/uL Lymphocytes # 1.7 (1.0-4.8) k/uL Monocytes # 1.0 (0-1.0) k/uL Eosinophils # 0.3 (0-0.7) k/uL Basophils # 0.1 (0-0.2) k/uL PT 9.6 (9.0-12.0) sec INR 0.9 (<1.2) APTT 21.1 L (22.0-30.0) sec D-Dimer 0.64 H (<0.60) mg/L FEU Sample Site ABG pH (7.35-7.45) ABG pCO2 (35-45) mmHg ABG pO2 (83-108) mmHg ABG HCO3 (21-25) mmol/L ABG Total CO2 (19-24) mmol/L ABG O2 Saturation (94-97) % ABG Base Excess mmol/L Alfonso Test FiO2 % Sodium 134 L (137-145) mmol/L Potassium 3.8 (3.5-5.1) mmol/L Chloride 93 L (98-107) mmol/L Carbon Dioxide 33 H (22-30) mmol/L Anion Gap 8 mmol/L BUN 35 H (7-17) mg/dL Creatinine 1.04 (0.52-1.04) mg/dL Est GFR (CKD-EPI)AfAm 62 (>60 ml/min/1.73 sqM) Est GFR (CKD-EPI)NonAf 54 (>60 ml/min/1.73 sqM) Glucose 97 (74-99) mg/dL Plasma Lactic Acid Dennis (0.7-2.0) mmol/L Calcium 8.1 L (8.4-10.2) mg/dL Total Bilirubin 1.0 (0.2-1.3) mg/dL AST 18 (14-36) U/L ALT 28 (4-34) U/L Alkaline Phosphatase 71 (38-126) U/L Troponin I (0.000-0.034) ng/mL NT-Pro-B Natriuret Pep pg/mL Total Protein 5.5 L (6.3-8.2) g/dL Albumin 3.0 L (3.5-5.0) g/dL Urine Color Urine Appearance (Clear) Urine pH (5.0-8.0) Ur Specific [place] (1.001-1.035) Urine Protein (Negative) Urine Glucose (UA) (Negative) Urine Ketones (Negative) Urine Blood (Negative) Urine Nitrite (Negative) Urine Bilirubin (Negative) Urine Urobilinogen (<2.0) mg/dL Ur Leukocyte Esterase (Negative) Urine RBC (0-5) /hpf Urine WBC (0-5) /hpf Ur Squamous Epith Cells (0-4) /hpf Urine Bacteria (None) /hpf Urine Mucus (None) /hpf Urine Yeast (Budding) (None) /hpf Coronavirus (PCR) (Not Detectd) Influenza Type A RNA (Not Detectd) Influenza Type B (PCR) (Not Detectd) 06/16/22 06/16/22 06/16/22 Range/Units 12:07 12:07 12:07 WBC (3.8-10.6) k/uL RBC (3.80-5.40) m/uL Hgb (11.4-16.0) gm/dL Hct (34.0-46.0) % MCV (80.0-100.0) fL MCH (25.0-35.0) pg MCHC (31.0-37.0) g/dL RDW (11.5-15.5) % Plt Count (150-450) k/uL MPV Neutrophils % % Lymphocytes % % Monocytes % % Eosinophils % % Basophils % % Neutrophils # (1.3-7.7) k/uL Lymphocytes # (1.0-4.8) k/uL Monocytes # (0-1.0) k/uL Eosinophils # (0-0.7) k/uL Basophils # (0-0.2) k/uL PT (9.0-12.0) sec INR (<1.2) APTT (22.0-30.0) sec D-Dimer (<0.60) mg/L FEU Sample Site ABG pH (7.35-7.45) ABG pCO2 (35-45) mmHg ABG pO2 (83-108) mmHg ABG HCO3 (21-25) mmol/L ABG Total CO2 (19-24) mmol/L ABG O2 Saturation (94-97) % ABG Base Excess mmol/L Alfonso Test FiO2 % Sodium (137-145) mmol/L Potassium (3.5-5.1) mmol/L Chloride (98-107) mmol/L Carbon Dioxide (22-30) mmol/L Anion Gap mmol/L BUN (7-17) mg/dL Creatinine (0.52-1.04) mg/dL Est GFR (CKD-EPI)AfAm (>60 ml/min/1.73 sqM) Est GFR (CKD-EPI)NonAf (>60 ml/min/1.73 sqM) Glucose (74-99) mg/dL Plasma Lactic Acid Dennis 1.8 (0.7-2.0) mmol/L Calcium (8.4-10.2) mg/dL Total Bilirubin (0.2-1.3) mg/dL AST (14-36) U/L ALT (4-34) U/L Alkaline Phosphatase (38-126) U/L Troponin I 0.094 H* (0.000-0.034) ng/mL NT-Pro-B Natriuret Pep 1230 pg/mL Total Protein (6.3-8.2) g/dL Albumin (3.5-5.0) g/dL Urine Color Urine Appearance (Clear) Urine pH (5.0-8.0) Ur Specific [place] (1.001-1.035) Urine Protein (Negative) Urine Glucose (UA) (Negative) Urine Ketones (Negative) Urine Blood (Negative) Urine Nitrite (Negative) Urine Bilirubin (Negative) Urine Urobilinogen (<2.0) mg/dL Ur Leukocyte Esterase (Negative) Urine RBC (0-5) /hpf Urine WBC (0-5) /hpf Ur Squamous Epith Cells (0-4) /hpf Urine Bacteria (None) /hpf Urine Mucus (None) /hpf Urine Yeast (Budding) (None) /hpf Coronavirus (PCR) (Not Detectd) Influenza Type A RNA (Not Detectd) Influenza Type B (PCR) (Not Detectd) 06/16/22 06/16/22 06/16/22 Range/Units 12:11 12:11 14:19 WBC (3.8-10.6) k/uL RBC (3.80-5.40) m/uL Hgb (11.4-16.0) gm/dL Hct (34.0-46.0) % MCV (80.0-100.0) fL MCH (25.0-35.0) pg MCHC (31.0-37.0) g/dL RDW (11.5-15.5) % Plt Count (150-450) k/uL MPV Neutrophils % % Lymphocytes % % Monocytes % % Eosinophils % % Basophils % % Neutrophils # (1.3-7.7) k/uL Lymphocytes # (1.0-4.8) k/uL Monocytes # (0-1.0) k/uL Eosinophils # (0-0.7) k/uL Basophils # (0-0.2) k/uL PT (9.0-12.0) sec INR (<1.2) APTT (22.0-30.0) sec D-Dimer (<0.60) mg/L FEU Sample Site ABG pH (7.35-7.45) ABG pCO2 (35-45) mmHg ABG pO2 (83-108) mmHg ABG HCO3 (21-25) mmol/L ABG Total CO2 (19-24) mmol/L ABG O2 Saturation (94-97) % ABG Base Excess mmol/L Alfonso Test FiO2 % Sodium (137-145) mmol/L Potassium (3.5-5.1) mmol/L Chloride (98-107) mmol/L Carbon Dioxide (22-30) mmol/L Anion Gap mmol/L BUN (7-17) mg/dL Creatinine (0.52-1.04) mg/dL Est GFR (CKD-EPI)AfAm (>60 ml/min/1.73 sqM) Est GFR (CKD-EPI)NonAf (>60 ml/min/1.73 sqM) Glucose (74-99) mg/dL Plasma Lactic Acid Dennis (0.7-2.0) mmol/L Calcium (8.4-10.2) mg/dL Total Bilirubin (0.2-1.3) mg/dL AST (14-36) U/L ALT (4-34) U/L Alkaline Phosphatase (38-126) U/L Troponin I (0.000-0.034) ng/mL NT-Pro-B Natriuret Pep pg/mL Total Protein (6.3-8.2) g/dL Albumin (3.5-5.0) g/dL Urine Color Yellow Urine Appearance Cloudy H (Clear) Urine pH 5.5 (5.0-8.0) Ur Specific [place] 1.015 (1.001-1.035) Urine Protein 2+ H (Negative) Urine Glucose (UA) 4+ H (Negative) Urine Ketones Negative (Negative) Urine Blood Negative (Negative) Urine Nitrite Negative (Negative) Urine Bilirubin Negative (Negative) Urine Urobilinogen 2.0 (<2.0) mg/dL Ur Leukocyte Esterase Large H (Negative) Urine RBC 5 (0-5) /hpf Urine WBC 21 H (0-5) /hpf Ur Squamous Epith Cells 3 (0-4) /hpf Urine Bacteria Rare H (None) /hpf Urine Mucus Rare H (None) /hpf Urine Yeast (Budding) Rare H (None) /hpf Coronavirus (PCR) Not Detected (Not Detectd) Influenza Type A RNA Not Detected (Not Detectd) Influenza Type B (PCR) Not Detected (Not Detectd) 06/16/22 Range/Units 15:00 WBC (3.8-10.6) k/uL RBC (3.80-5.40) m/uL Hgb (11.4-16.0) gm/dL Hct (34.0-46.0) % MCV (80.0-100.0) fL MCH (25.0-35.0) pg MCHC (31.0-37.0) g/dL RDW (11.5-15.5) % Plt Count (150-450) k/uL MPV Neutrophils % % Lymphocytes % % Monocytes % % Eosinophils % % Basophils % % Neutrophils # (1.3-7.7) k/uL Lymphocytes # (1.0-4.8) k/uL Monocytes # (0-1.0) k/uL Eosinophils # (0-0.7) k/uL Basophils # (0-0.2) k/uL PT (9.0-12.0) sec INR (<1.2) APTT (22.0-30.0) sec D-Dimer (<0.60) mg/L FEU Sample Site Left Radial ABG pH 7.41 (7.35-7.45) ABG pCO2 53 H (35-45) mmHg ABG pO2 68 L (83-108) mmHg ABG HCO3 33 H (21-25) mmol/L ABG Total CO2 35 H (19-24) mmol/L ABG O2 Saturation 94.6 (94-97) % ABG Base Excess 8.6 mmol/L Alfonso Test Yes FiO2 28 % Sodium (137-145) mmol/L Potassium (3.5-5.1) mmol/L Chloride (98-107) mmol/L Carbon Dioxide (22-30) mmol/L Anion Gap mmol/L BUN (7-17) mg/dL Creatinine (0.52-1.04) mg/dL Est GFR (CKD-EPI)AfAm (>60 ml/min/1.73 sqM) Est GFR (CKD-EPI)NonAf (>60 ml/min/1.73 sqM) Glucose (74-99) mg/dL Plasma Lactic Acid Dennis (0.7-2.0) mmol/L Calcium (8.4-10.2) mg/dL Total Bilirubin (0.2-1.3) mg/dL AST (14-36) U/L ALT (4-34) U/L Alkaline Phosphatase (38-126) U/L Troponin I (0.000-0.034) ng/mL NT-Pro-B Natriuret Pep pg/mL Total Protein (6.3-8.2) g/dL Albumin (3.5-5.0) g/dL Urine Color Urine Appearance (Clear) Urine pH (5.0-8.0) Ur Specific [place] (1.001-1.035) Urine Protein (Negative) Urine Glucose (UA) (Negative) Urine Ketones (Negative) Urine Blood (Negative) Urine Nitrite (Negative) Urine Bilirubin (Negative) Urine Urobilinogen (<2.0) mg/dL Ur Leukocyte Esterase (Negative) Urine RBC (0-5) /hpf Urine WBC (0-5) /hpf Ur Squamous Epith Cells (0-4) /hpf Urine Bacteria (None) /hpf Urine Mucus (None) /hpf Urine Yeast (Budding) (None) /hpf Coronavirus (PCR) (Not Detectd) Influenza Type A RNA (Not Detectd) Influenza Type B (PCR) (Not Detectd) - EKG Data EKG Comments: Sinus rhythm. Left axis deviation. Left bundle branch block. Ventricular rate 62 bpm, OH interval 251 ms, QRS duration 141 ms, QTC 444 ms. - Radiology Data Radiology results: report reviewed, image reviewed Disposition Clinical Impression: COPD exacerbation, Leukocytosis Disposition: ADMITTED IP TO THIS HOSP Referrals: Elvira Gonzales MD [Primary Care Provider] - 1-2 days
[2022-06-16 12:19] LABS: Basophils # (A) 0.1 k/uL (0-0.2); Basophils % (A) 0 %; Eosinophils # (A) 0.3 k/uL (0-0.7); Eosinophils % (A) 1 %; HCT 38.1 % (34.0-46.0); HGB 12.1 gm/dL (11.4-16.0); Lymphocytes # (A) 1.7 k/uL (1.0-4.8); Lymphocytes % (A) 7 %; MCH 29.4 pg (25.0-35.0); MCHC 31.8 g/dL (31.0-37.0); MCV 92.4 fL (80.0-100.0); Mean Platelet Volume 8.1; Monocytes % (A) 4 %; Neutrophils # (A) 20.1 k/uL (1.3-7.7); Neutrophils % (A) 86 %; Platelet Count 280 k/uL (150-450); RBC 4.12 m/uL (3.80-5.40); RDW 13.4 % (11.5-15.5); WBC 23.4 k/uL (3.8-10.6)
[2022-06-16 12:25] LABS: Calcium 8.1 mg/dL (8.4-10.2); Potassium 3.8 mmol/L (3.5-5.1); Total Protein 5.5 g/dL (6.3-8.2)
[2022-06-16 12:54] LABS: INR 0.9 (<1.2); Prothrombin Time 9.6 sec (9.0-12.0)
--- NOTE | 2022-06-16 12:56 | XR ---
EXAMINATION TYPE: XR chest 2V DATE OF EXAM: 06/16/2022 COMPARISON: Chest x-ray 06/07/2022 HISTORY: Shortness of breath, difficulty breathing TECHNIQUE: Frontal and lateral views of the chest are obtained. FINDINGS: There is increased central vascularity, heart is enlarged, the patient is post median ster notomy. No evident pneumothorax or pleural effusion. The aorta is dense. The osseous structures are i ntact. IMPRESSION: Correlate for pulmonary venous hypertension and interstitial edema
[2022-06-16 12:57] LABS: Partial Thromboplastin Time 21.1 sec (22.0-30.0)
[2022-06-16 14:58] LABS: Appearance,Urine Cloudy (Clear); Bacteria,Urine Rare /hpf; Bilirubin,Urine Negative (Negative); Blood,Urine Negative (Negative); Budding Yeast,Urine Rare /hpf; Color,Urine Yellow; Glucose,Urine (UA) 4+ (Negative); Ketones,Urine Negative (Negative); Leukocyte Esterase,Urine Large (Negative); Mucus,Urine Rare /hpf; Nitrite,Urine Negative (Negative); PH, Urine 5.5 (5.0-8.0); Protein,Urine 2+ (Negative); RBC,Urine 5 /hpf (0-5); Specific Gravity,Urine 1.015 (1.001-1.035); Squamous Epithelial Cell,Urine 3 /hpf (0-4); WBC,Urine 21 /hpf (0-5)
[2022-06-16 15:06] LABS: ABG Base Excess 8.6 mmol/L; ABG HCO3 33 mmol/L (21-25); ABG Oxygen Saturation 94.6 % (94-97); ABG PCO2 53 mmHg (35-45); ABG PH 7.41 (7.35-7.45); ABG PO2 68 mmHg (83-108); ABG TCO2 35 mmol/L (19-24); Allen Test Performed? Yes
[2022-06-16] MEDS ORDERED: RX INFO: IV CONTRAST WAS GIVEN 1 EACH MISC MISCELLANE PRN (16:38)
[2022-06-16] MEDS ORDERED: KETOROLAC 15 MG/ML 1 ML VIAL IVP PRN (16:47)
[2022-06-16] MEDS ORDERED: ACETAMINOPHEN TAB 325 MG TAB PO PRN (16:47)
[2022-06-16] MEDS ORDERED: ONDANSETRON 4 MG/2 ML VIAL IVP PRN (16:48)
--- NOTE | 2022-06-16 17:23 | CT ---
EXAMINATION TYPE: CT chest w con DATE OF EXAM: 06/16/2022 COMPARISON: 01/06/2020 HISTORY: Difficulty breathing, shortness of breath. Asthma, COPD CT DLP: 859.9 mGycm Automated exposure control for dose reduction was used. CONTRAST: Performed with IV Contrast, patient injected with 80 mL of Isovue 300. Images obtained from the thoracic inlet to the diaphragm with the IV contrast. There are Three-D post processed images. Heart is enlarged. No pericardial effusion. There are multiple enlarged mediastinal lymph nodes measu ring up to 1.6 cm. 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 Thy roid gland is fairly symmetric. There are likely small cysts in the posterior left and right thyroid lobe. Thoracic aorta is atheromatous. No aneurysm or dissection. No evidence of filling defect in the pulmonary arteries. There are bilateral bronchial lymph nodes up to 1 cm. There is coarse interstitial infiltrate throughout both lungs. The thoracic spine is intact . There is some spurring in the thoracic spine. Sternum is intact. No evidence of rib fracture. IMPRESSION: No evidence of pulmonary embolism. Cardiomegaly. Mediastinal and bronchial adenopathy with extensive interstitial pulmonary infiltrates. This could be sarcoidosis. There is progression of the interstitial lung disease compared to old exam.
[2022-06-16] MEDS: SYMBICORT 80-4.5 MCG INHALER INHALATION SCH (20:02)
[2022-06-16] MEDS: IPRATROPIUM 0.5 MG/2.5 ML NEBU INHALATION SCH (20:02)
[2022-06-16 20:11] LABS: Glucose,Whole Blood >600 mg/dL (70-110)
[2022-06-16] MEDS: METOPROLOL SUCCINATE (ER) 50 MG TAB.ER.24H PO SCH (22:13)
[2022-06-16] MEDS: ATORVASTATIN 80 MG TAB PO SCH (22:13)
[2022-06-16] MEDS: VALSARTAN 80 MG TAB PO SCH (22:13)
[2022-06-16] MEDS ORDERED: ALBUTEROL NEBULIZED 2.5 MG/3 ML INHALATION PRN (22:24)
[2022-06-16] MEDS ORDERED: DEXTROSE 50% SYRINGE 50 ML IVP PRN ×2 (22:26)
[2022-06-16] MEDS ORDERED: FUROSEMIDE 10 MG/ML 4 ML VIAL IV STA (22:48)
[2022-06-16] MEDS: INSULIN ASPART (NovoLOG) 100 UNIT/ML VIAL SQ SCH ×2 (22:50)
[2022-06-16] MEDS: INSULIN DETEMIR (LEVEMIR) 100 UNIT/ML SYR SQ SCH (22:50)
[2022-06-17] MEDS: methylPREDNISolone SOD SUCCI 125 MG/2 ML VIAL IV SCH ×5 (00:12→23:08)
[2022-06-17 00:13] LABS: Glucose,Whole Blood 543 mg/dL (70-110)
[2022-06-17 02:08] LABS: Glucose,Whole Blood 410 mg/dL (70-110)
[2022-06-17] MEDS ORDERED: INSULIN ASPART (NovoLOG) 100 UNIT/ML VIAL SQ ONE (03:12)
[2022-06-17 06:18] LABS: Glucose,Whole Blood 206 mg/dL (70-110)
[2022-06-17] MEDS: INSULIN ASPART (NovoLOG) 100 UNIT/ML VIAL SQ SCH ×7 (07:08→20:33)
[2022-06-17] MEDS ORDERED: NON FORMULARY DRUG (Fluticasone/Umeclidin/Vilanter [Trelegy Ellipta 100-62.5-25] 1 EACH Bl INHALATION SCH (08:00)
[2022-06-17] MEDS: SYMBICORT 80-4.5 MCG INHALER INHALATION SCH ×2 (08:23→19:29)
[2022-06-17] MEDS: IPRATROPIUM 0.5 MG/2.5 ML NEBU INHALATION SCH ×4 (08:23→19:29)
[2022-06-17] MEDS ORDERED: FUROSEMIDE 40 MG TAB PO SCH (09:00)
[2022-06-17] MEDS: INSULIN DETEMIR (LEVEMIR) 100 UNIT/ML SYR SQ SCH ×2 (09:11→20:39)
[2022-06-17] MEDS: CLOPIDOGREL 75 MG TAB PO SCH (09:11)
[2022-06-17] MEDS: DONEPEZIL 5 MG TAB PO SCH (09:11)
[2022-06-17 11:46] LABS: Glucose,Whole Blood 285 mg/dL (70-110)
--- NOTE | 2022-06-17 11:54 | P.HPIM ---
History of Present Illness This is a pleasant 72 years old female with multiple medical problems as below Patient was recently in this facility for COPD exacerbation 06/07-06/08. Presents this time with worsening dyspnea over 2 days duration, patient denies worsening cough or chest pain. No dizziness or headache or weakness or numbness No diarrhea or vomiting or abdominal pain Also patient denies dysuria or urgency She is on 3 L oxygen via nasal cannula at home, she sees Dr. Monique as an outpatient She quit smoking many years ago, no alcohol or illicit drugs. She's not on home prednisone Vitals stable and patient is afebrile. Patient is tachypneic with a breathing rate around 26. She is saturating 93% on 3 total oxygen via nasal cannula this morning Patient has leukocytosis of 23,000. INR 0.9. D-dimer is 0.64 Venous pH is normal at 7.4 with pCO2 53 slightly elevated. Sodium was elevated on admission is 682, currently 206 Troponin elevated at 0.09 and 0.07. Creatinine 1.0, BUN elevated 35, sodium 134. proCalcitonin is slightly elevated 0.22. Urinalysis is suspicious for infection ProBNP 1.30 Lucia and influenza virus is not detected CTA of the chest showing no PE but that his mediastinal and bronchial adenopathy with extensive interstitial pulmonary infiltrates. This could be sarcoidosis. There is progression of the interstitial lung disease compared to old exam Progressive interstitial lung disease EKG showing normal sinus rhythm at 62 Review of Systems Review of systems CONSTITUTIONAL: No fever, no malaise, no fatigue. HEENT: No recent visual problems or hearing problems. Denied any sore throat. CARDIOVASCULAR: No orthopnea, PND, no palpitations, no syncope. PULMONARY: No chest wall tenderness, no hemoptysis. GASTROINTESTINAL: No diarrhea, no nausea, no vomiting, no abdominal pain. Normoactive bowel sounds. NEUROLOGICAL: No headaches, no weakness, no numbness. HEMATOLOGICAL: Denies any bleeding or petechiae. GENITOURINARY: Denies any burning micturition, frequency, or urgency. MUSCULOSKELETAL/RHEUMATOLOGICAL: Denies any joint pain, swelling, or any muscle pain. ENDOCRINE: Denies any polyuria or polydipsia. Past Medical History Past Medical History: Asthma, Coronary Artery Disease (CAD), Chest Pain / Angina, Heart Failure, COPD, CVA/TIA, Dementia, Diabetes Mellitus, Hyperlipidemia, Hypertension, Myocardial Infarction ([place]), Pneumonia, Respiratory Disorder, Syncope, Vascular Disorder Additional Past Medical History / Comment(s): IDDM type II, neuropathy bilateral feet, 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, R caratid artery disease, valvular disease, pulmonary htn, bronchitis, home oxygen prn, poor vision/pt cannot recall reason, UTIs, rash/itching Last Myocardial Infarction Date:: 2014 History of Any Multi-Drug Resistant Organisms: ESBL Date of last positivie culture/infection: 04/15/21 MDRO Source:: ESBL URINE Past Surgical History: Cholecystectomy, Coronary Bypass/CABG, Heart Catheterization With Stent Additional Past Surgical History / Comment(s): PCI/stents in 2009 and 2014, 2016 CABG 3 vessel then sternal debridement for infection/removal of hardware, colonoscopy, bilateral cataract removals. Past Anesthesia/Blood Transfusion Reactions: No Reported Reaction Additional Past Anesthesia/Blood Transfusion Reaction / Comment(s): Claustrophobic Date of Last Stent Placement:: 2014 Past Psychological History: No Psychological Hx Reported Smoking Status: Former smoker Past Alcohol Use History: None Reported Past Drug Use History: None Reported - Past Family History Father Family Medical History: Coronary Artery Disease (CAD), Myocardial Infarction ([place]) Additional Family Medical History / Comment(s): STENT, OPEN HEART SURGERY Mother Additional Family Medical History / Comment(s): DEPRESSION, mental illness Medications and Allergies Home Medications Medication Instructions Recorded Confirmed Type Metoprolol Succinate [Toprol XL] 50 mg PO HS 08/30/18 06/16/22 History Atorvastatin [Lipitor] 80 mg PO HS 09/23/20 06/16/22 History Insulin Lispro [humaLOG Kwikpen] 15 units SQ AC-TID 11/11/20 06/16/22 History Aspirin EC [Ecotrin Low Dose] 81 mg PO DAILY 12/12/21 06/16/22 History Clopidogrel Bisulfate [Plavix] 75 mg PO DAILY 12/12/21 06/16/22 History Insulin Glargine,Hum.rec.anlog 46 unit SQ BID 12/12/21 06/16/22 History [Lantus Solostar Pen] Valsartan 80 mg PO HS 12/12/21 06/16/22 History Acetaminophen Tab [Tylenol] 650 mg PO Q6HR PRN tab 12/15/21 06/16/22 Rx Ipratropium-Albuterol Nebulize 3 ml INHALATION RT-Q6H PRN 12/15/21 06/16/22 History [Duoneb 0.5 mg-3 mg/3 ml Soln] Albuterol Sulfate [Albuterol 2 puff INHALATION RT-Q6H PRN 06/07/22 06/16/22 History Sulfate Hfa] Donepezil [Aricept] 5 mg PO DAILY 06/07/22 06/16/22 History Fluticasone/Umeclidin/Vilanter 1 puff INHALATION RT-DAILY 06/07/22 06/16/22 History [Trelegy Ellipta 100-62.5-25] Furosemide [Lasix] 40 mg PO DAILY #30 tablet 06/08/22 06/16/22 Rx predniSONE See Taper PO DIRECTED 06/16/22 06/16/22 History Allergies Allergy/AdvReac Type Severity Reaction Status Date / Time codeine AdvReac Nausea & Verified 06/16/22 16:20 Vomiting Physical Exam Vitals: Vital Signs Temp Pulse Pulse Resp BP BP Pulse Ox 06/17/22 08:33 64 06/17/22 08:26 93 L 06/17/22 08:24 60 06/17/22 03:25 97.5 F L 63 26 H 133/68 98 06/17/22 00:05 97.9 F 75 26 H 144/73 97 06/16/22 20:11 84 06/16/22 20:05 78 06/16/22 19:50 97.4 F L 74 28 H 137/68 94 L 06/16/22 18:57 98.7 F 75 28 H 149/64 98 06/16/22 18:20 77 15 121/70 97 06/16/22 16:36 95 06/16/22 16:12 76 18 119/35 88 L 06/16/22 14:20 75 18 138/95 100 06/16/22 13:50 84 06/16/22 13:32 84 06/16/22 12:19 22 06/16/22 11:52 97.9 F 84 16 124/49 95 Intake and Output 06/16/22 06/17/22 06/17/22 22:59 06:59 14:59 Output Total 350 Balance -350 Output: Urine 350 Other: Voiding Method Toilet Toilet # Voids 2 Weight 99.337 kg GENERAL: The patient is alert and oriented x3, not in any acute distress. Well developed, well nourished. HEENT: Pupils are round and equally reacting to light. EOMI. No scleral icterus. No conjunctival pallor. Normocephalic, atraumatic. No pharyngeal erythema. No thyromegaly. CARDIOVASCULAR: S1 and S2 present. No murmurs, rubs, or gallops. -PULMONARY: Chest is clear to auscultation, bilateral scattered wheezing. No crackles. ABDOMEN: Soft, nontender, nondistended, normoactive bowel sounds. No palpable organomegaly. MUSCULOSKELETAL: No joint swelling or deformity. EXTREMITIES: No cyanosis, clubbing, or pedal edema. NEUROLOGICAL: Gross neurological examination did not reveal any focal deficits. SKIN: No rashes. no petechiae. Results CBC & Chem 7: 06/16/22 12:07 06/16/22 21:10 Labs: Abnormal Lab Results - Last 24 Hours (Table) 06/16/22 06/16/22 06/16/22 Range/Units 12:07 12:07 12:07 WBC 23.4 H (3.8-10.6) k/uL Neutrophils # 20.1 H (1.3-7.7) k/uL APTT 21.1 L (22.0-30.0) sec D-Dimer 0.64 H (<0.60) mg/L FEU ABG pCO2 (35-45) mmHg ABG pO2 (83-108) mmHg ABG HCO3 (21-25) mmol/L ABG Total CO2 (19-24) mmol/L Sodium 134 L (137-145) mmol/L Chloride 93 L (98-107) mmol/L Carbon Dioxide 33 H (22-30) mmol/L BUN 35 H (7-17) mg/dL Glucose (74-99) mg/dL POC Glucose (mg/dL) (70-110) mg/dL Calcium 8.1 L (8.4-10.2) mg/dL Troponin I (0.000-0.034) ng/mL Total Protein 5.5 L (6.3-8.2) g/dL Albumin 3.0 L (3.5-5.0) g/dL Procalcitonin (0.02-0.09) ng/mL Urine Appearance (Clear) Urine Protein (Negative) Urine Glucose (UA) (Negative) Ur Leukocyte Esterase (Negative) Urine WBC (0-5) /hpf Urine Bacteria (None) /hpf Urine Mucus (None) /hpf Urine Yeast (Budding) (None) /hpf 06/16/22 06/16/22 06/16/22 Range/Units 12:07 14:19 15:00 WBC (3.8-10.6) k/uL Neutrophils # (1.3-7.7) k/uL APTT (22.0-30.0) sec D-Dimer (<0.60) mg/L FEU ABG pCO2 53 H (35-45) mmHg ABG pO2 68 L (83-108) mmHg ABG HCO3 33 H (21-25) mmol/L ABG Total CO2 35 H (19-24) mmol/L Sodium (137-145) mmol/L Chloride (98-107) mmol/L Carbon Dioxide (22-30) mmol/L BUN (7-17) mg/dL Glucose (74-99) mg/dL POC Glucose (mg/dL) (70-110) mg/dL Calcium (8.4-10.2) mg/dL Troponin I 0.094 H* (0.000-0.034) ng/mL Total Protein (6.3-8.2) g/dL Albumin (3.5-5.0) g/dL Procalcitonin (0.02-0.09) ng/mL Urine Appearance Cloudy H (Clear) Urine Protein 2+ H (Negative) Urine Glucose (UA) 4+ H (Negative) Ur Leukocyte Esterase Large H (Negative) Urine WBC 21 H (0-5) /hpf Urine Bacteria Rare H (None) /hpf Urine Mucus Rare H (None) /hpf Urine Yeast (Budding) Rare H (None) /hpf 06/16/22 06/16/22 06/16/22 Range/Units 16:09 18:05 20:08 WBC (3.8-10.6) k/uL Neutrophils # (1.3-7.7) k/uL APTT (22.0-30.0) sec D-Dimer (<0.60) mg/L FEU ABG pCO2 (35-45) mmHg ABG pO2 (83-108) mmHg ABG HCO3 (21-25) mmol/L ABG Total CO2 (19-24) mmol/L Sodium (137-145) mmol/L Chloride (98-107) mmol/L Carbon Dioxide (22-30) mmol/L BUN (7-17) mg/dL Glucose (74-99) mg/dL POC Glucose (mg/dL) >600 H (70-110) mg/dL Calcium (8.4-10.2) mg/dL Troponin I 0.070 H* (0.000-0.034) ng/mL Total Protein (6.3-8.2) g/dL Albumin (3.5-5.0) g/dL Procalcitonin 0.22 H (0.02-0.09) ng/mL Urine Appearance (Clear) Urine Protein (Negative) Urine Glucose (UA) (Negative) Ur Leukocyte Esterase (Negative) Urine WBC (0-5) /hpf Urine Bacteria (None) /hpf Urine Mucus (None) /hpf Urine Yeast (Budding) (None) /hpf 06/16/22 06/17/22 06/17/22 Range/Units 21:10 00:11 02:06 WBC (3.8-10.6) k/uL Neutrophils # (1.3-7.7) k/uL APTT (22.0-30.0) sec D-Dimer (<0.60) mg/L FEU ABG pCO2 (35-45) mmHg ABG pO2 (83-108) mmHg ABG HCO3 (21-25) mmol/L ABG Total CO2 (19-24) mmol/L Sodium (137-145) mmol/L Chloride (98-107) mmol/L Carbon Dioxide (22-30) mmol/L BUN (7-17) mg/dL Glucose 682 H* (74-99) mg/dL POC Glucose (mg/dL) 543 H 410 H (70-110) mg/dL Calcium (8.4-10.2) mg/dL Troponin I (0.000-0.034) ng/mL Total Protein (6.3-8.2) g/dL Albumin (3.5-5.0) g/dL Procalcitonin (0.02-0.09) ng/mL Urine Appearance (Clear) Urine Protein (Negative) Urine Glucose (UA) (Negative) Ur Leukocyte Esterase (Negative) Urine WBC (0-5) /hpf Urine Bacteria (None) /hpf Urine Mucus (None) /hpf Urine Yeast (Budding) (None) /hpf 06/17/22 Range/Units 06:16 WBC (3.8-10.6) k/uL Neutrophils # (1.3-7.7) k/uL APTT (22.0-30.0) sec D-Dimer (<0.60) mg/L FEU ABG pCO2 (35-45) mmHg ABG pO2 (83-108) mmHg ABG HCO3 (21-25) mmol/L ABG Total CO2 (19-24) mmol/L Sodium (137-145) mmol/L Chloride (98-107) mmol/L Carbon Dioxide (22-30) mmol/L BUN (7-17) mg/dL Glucose (74-99) mg/dL POC Glucose (mg/dL) 206 H (70-110) mg/dL Calcium (8.4-10.2) mg/dL Troponin I (0.000-0.034) ng/mL Total Protein (6.3-8.2) g/dL Albumin (3.5-5.0) g/dL Procalcitonin (0.02-0.09) ng/mL Urine Appearance (Clear) Urine Protein (Negative) Urine Glucose (UA) (Negative) Ur Leukocyte Esterase (Negative) Urine WBC (0-5) /hpf Urine Bacteria (None) /hpf Urine Mucus (None) /hpf Urine Yeast (Budding) (None) /hpf Microbiology - Last 24 Hours (Table) 06/16/22 14:19 Urine Culture - Preliminary Urine,Voided Thrombosis Risk Factor Assmnt - Choose All That Apply Each Factor Represents 1 point: Abnormal pulmonary function (COPD), Obesity (BMI >25) Each Risk Factor Represents 2 Points: Age 61-74 years Thrombosis Risk Factor Assessment Total Risk Factor Score: 4 Thrombosis Risk Factor Assessment Level: Moderate Risk Assessment and Plan Assessment: Acute COPD exacerbation possible Acute urinary tract infection extensive interstitial lung disease with bilateral bronchial and mediastinal lymphadenopathy. Possible sarcoidosis Acute on chronic hypoxic respiratory failure Previous Covid 19 infection 2 diabetes mellitus History of coronary artery disease status post bypass History of CVA/TIA Hypertension Hyperlipidemia Obesity Plan: This is a pleasant 72 years old female with COPD exacerbation An you with steroids Continue with bronchodilator Pulmonary consult continue with ceftriaxone follow-up urine culture . f/u With photographic technician Labs and medication were reviewed.. Continue same treatment. Continue with symptomatic treatment. Resume home medication. Monitor lytes and vitals. DVT and GI prophylaxis. Further recommendations as per clinical course of the patient DVT prophylaxis: Subcutaneous heparin GI Prophylaxis: Pepcid PT/OT: Pending Prognosis is guarded
--- NOTE | 2022-06-17 12:13 | P.CNPUL ---
History of Present Illness Consult date: 06/17/22 Requesting physician: Bernard E Christine Reason for consult: dyspnea Chief complaint: Shortness of breath History of present illness: This is a pleasant 72-year-old female patient, morbidly obese, essentially a central obesity with known history of diabetes mellitus type 2, coronary artery disease with previous coronary artery bypass surgery and previous coronary stenting. She has also been involved in a previous CVA requiring to be administration in March 2021, other comorbid conditions include hypertension, hyperlipidemia, previous urinary tract infection with ESBL producing gram- negative E. coli.COPD and chronic hypoxic respiratory failure maintained on oxygen at 3 L/m per nasal cannula. The patient has a baseline FEV1 of 54% of predicted and she is option independently as per minute nasal cannula. The patient has Covid 19 infection back in December 2021, which she recovers. She multip le hospitalization for COPD exacerbation. She is using Trelegy Ellipta 1 puff a day on a regular basis and she is also on albuterol neb treatments around the clock as needed. She was just discharged from the hospital on 06/08/2022. The patient was noted by her daughter that she was getting more short of breath and she was having increased cough and for that reason she was transferred or to the emergency department again yesterday 06/16/2022. She is seen today in consultation on the regular medical floor. She is lying flat in bed. Awake and alert in no acute distress. She is dyspneic with conversation. Dyspneic with normal exertion. Her BMI is 39 kg/m. Chest x-ray shows pulmonary venous hypertension and interstitial edema. CT angiogram revealed no evidence of pulmonary embolism. There was cardiomegaly. Mediastinum bronchial adenopathy with extensive interstitial pulmonary infiltrates. Possibly related to previous COVID-19 infection and/or interstitial lung disease. Urine culture pending. White count 20.4. Hemoglobin 12.1. D-dimer 0.64. Sodium 134. Potassium 3.8. BUN 35. Creatinine 1.04. Bicarb 33. Glucose 682. BNP 1230. Procalcitonin 0.22. Urinalysis cloudy with large leukoesterase. Lucia virus not detected. Influenza screen negative. Arterial blood gases on 28% FiO2 revealed a PaO2 68, pCO2 53, pH 7.41. Review of Systems REVIEW OF SYSTEMS: CONSTITUTIONAL: Denies any recent significant weight loss or weight gain. EYES: Denies change in vision. EARS, NOSE, MOUTH, THROAT: Denies headaches, denies sore throat. CARDIOVASCULAR: Denies chest pain, palpitations or syncopal episodes. RESPIRATORY: Positive for shortness of breath, cough, congestion no hemoptysis. GASTROINTESTINAL: Denies change in appetite, denies abdominal pain GENITOURINARY: Denies hematuria, denies infections. MUSKULOSKELETAL: Denies pain, denies swelling. INTEGUMENTARY: Denies rash, denies eczema. NEUROLOGICAL: Denies recent memory loss, no recent seizure activity. PSYCHIATRIC: Denies anxiety, denies depression. HEMATOLOGIC/LYMPHATIC: Denies anemia, denies enlarged lymph nodes. Past Medical History Past Medical History: Asthma, Coronary Artery Disease (CAD), Chest Pain / Angina, Heart Failure, COPD, CVA/TIA, Dementia, Diabetes Mellitus, Hyperlipidemia, Hypertension, Myocardial Infarction ([place]), Pneumonia, Respiratory Disorder, Syncope, Vascular Disorder Additional Past Medical History / Comment(s): IDDM type II, neuropathy bilateral feet, 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, R caratid artery disease, valvular disease, pulmonary htn, bronchitis, home oxygen prn, poor vision/pt cannot recall reason, UTIs, rash/itching Last Myocardial Infarction Date:: 2014 History of Any Multi-Drug Resistant Organisms: ESBL Date of last positivie culture/infection: 04/15/21 MDRO Source:: ESBL URINE Past Surgical History: Cholecystectomy, Coronary Bypass/CABG, Heart Catheterization With Stent Additional Past Surgical History / Comment(s): PCI/stents in 2009 and 2014, 2016 CABG 3 vessel then sternal debridement for infection/removal of hardware, colonoscopy, bilateral cataract removals. Past Anesthesia/Blood Transfusion Reactions: No Reported Reaction Additional Past Anesthesia/Blood Transfusion Reaction / Comment(s): Claustrophobic Date of Last Stent Placement:: 2014 Past Psychological History: No Psychological Hx Reported Smoking Status: Former smoker Past Alcohol Use History: None Reported Past Drug Use History: None Reported - Past Family History Father Family Medical History: Coronary Artery Disease (CAD), Myocardial Infarction ([place]) Additional Family Medical History / Comment(s): STENT, OPEN HEART SURGERY Mother Additional Family Medical History / Comment(s): DEPRESSION, mental illness Medications and Allergies Home Medications Medication Instructions Recorded Confirmed Type Metoprolol Succinate [Toprol XL] 50 mg PO HS 08/30/18 06/16/22 History Atorvastatin [Lipitor] 80 mg PO HS 09/23/20 06/16/22 History Insulin Lispro [humaLOG Kwikpen] 15 units SQ AC-TID 11/11/20 06/16/22 History Aspirin EC [Ecotrin Low Dose] 81 mg PO DAILY 12/12/21 06/16/22 History Clopidogrel Bisulfate [Plavix] 75 mg PO DAILY 12/12/21 06/16/22 History Insulin Glargine,Hum.rec.anlog 46 unit SQ BID 12/12/21 06/16/22 History [Lantus Solostar Pen] Valsartan 80 mg PO HS 12/12/21 06/16/22 History Acetaminophen Tab [Tylenol] 650 mg PO Q6HR PRN tab 12/15/21 06/16/22 Rx Ipratropium-Albuterol Nebulize 3 ml INHALATION RT-Q6H PRN 12/15/21 06/16/22 History [Duoneb 0.5 mg-3 mg/3 ml Soln] Albuterol Sulfate [Albuterol 2 puff INHALATION RT-Q6H PRN 06/07/22 06/16/22 History Sulfate Hfa] Donepezil [Aricept] 5 mg PO DAILY 06/07/22 06/16/22 History Fluticasone/Umeclidin/Vilanter 1 puff INHALATION RT-DAILY 06/07/22 06/16/22 History [Trelegy Ellipta 100-62.5-25] Furosemide [Lasix] 40 mg PO DAILY #30 tablet 06/08/22 06/16/22 Rx predniSONE See Taper PO DIRECTED 06/16/22 06/16/22 History Allergies Allergy/AdvReac Type Severity Reaction Status Date / Time codeine AdvReac Nausea & Verified 06/16/22 16:20 Vomiting Physical Exam Vitals: Vital Signs Temp Pulse Pulse Resp BP BP Pulse Ox 06/17/22 11:51 80 06/17/22 08:33 64 06/17/22 08:26 93 L 06/17/22 08:24 60 06/17/22 08:00 97.7 F 60 26 H 105/45 95 06/17/22 03:25 97.5 F L 63 26 H 133/68 98 06/17/22 00:05 97.9 F 75 26 H 144/73 97 06/16/22 20:11 84 06/16/22 20:05 78 06/16/22 19:50 97.4 F L 74 28 H 137/68 94 L 06/16/22 18:57 98.7 F 75 28 H 149/64 98 06/16/22 18:20 77 15 121/70 97 06/16/22 16:36 95 06/16/22 16:12 76 18 119/35 88 L 06/16/22 14:20 75 18 138/95 100 06/16/22 13:50 84 06/16/22 13:32 84 06/16/22 12:19 22 Intake and Output 06/16/22 06/17/22 06/17/22 22:59 06:59 14:59 Intake Total 120 Output Total 350 Balance -350 120 Intake: Oral 120 Output: Urine 350 Other: Voiding Method Toilet Toilet # Voids 2 # Bowel Movements 0 Weight 99.337 kg GENERAL EXAM: Alert, very pleasant, obese 72-year-old white female, on 3 L of O2 nasal cannula, her breathing is nonlabored this point in time. HEAD: Normocephalic/atraumatic. EYES: Normal reaction of pupils, equal size. Conjunctiva pink, sclera white. NOSE: Clear with pink turbinates. THROAT: No erythema or exudates. NECK: No masses, no JVD, no thyroid enlargement, no adenopathy. CHEST: No chest wall deformity. Symmetrical expansion. Diminished breath sounds along with some limited crackles in lung bases bilaterally. LUNGS: Equal air entry with no crackles, wheeze, rhonchi or dullness. CVS: Regular rate and rhythm, normal S1 and S2, no gallops, no murmurs, no rubs ABDOMEN: Soft, nontender. No hepatosplenomegaly, normal bowel sounds, no guarding or rigidity. EXTREMITIES: No clubbing, no edema, no cyanosis, 2+ pulses and upper and lower extremities. MUSCULOSKELETAL: Muscle strength and tone normal. SPINE: No scoliosis or deformity SKIN: No rashes CENTRAL NERVOUS SYSTEM: No focal neurological deficits. PSYCHIATRIC: Alert and oriented -3. Appropriate affect. Intact judgment and insight. Results - Laboratory Findings CBC and BMP: 06/16/22 12:07 06/16/22 21:10 ABG ABG pH 7.41 (7.35-7.45) 06/16/22 15:00 ABG pCO2 53 mmHg (35-45) H 06/16/22 15:00 ABG pO2 68 mmHg (83-108) L 06/16/22 15:00 ABG O2 Saturation 94.6 % (94-97) 06/16/22 15:00 PT/INR, D-dimer PT 9.6 sec (9.0-12.0) 06/16/22 12:07 INR 0.9 (<1.2) 06/16/22 12:07 D-Dimer 0.64 mg/L FEU (<0.60) H 06/16/22 12:07 Abnormal lab findings: Abnormal Labs 06/16/22 06/16/22 06/16/22 12:07 12:07 12:07 WBC 23.4 H Neutrophils # 20.1 H APTT 21.1 L D-Dimer 0.64 H ABG pCO2 ABG pO2 ABG HCO3 ABG Total CO2 Sodium 134 L Chloride 93 L Carbon Dioxide 33 H BUN 35 H Glucose POC Glucose (mg/dL) Hemoglobin A1c Calcium 8.1 L Troponin I Total Protein 5.5 L Albumin 3.0 L Procalcitonin Urine Appearance Urine Protein Urine Glucose (UA) Ur Leukocyte Esterase Urine WBC Urine Bacteria Urine Mucus Urine Yeast (Budding) 06/16/22 06/16/22 06/16/22 12:07 14:19 15:00 WBC Neutrophils # APTT D-Dimer ABG pCO2 53 H ABG pO2 68 L ABG HCO3 33 H ABG Total CO2 35 H Sodium Chloride Carbon Dioxide BUN Glucose POC Glucose (mg/dL) Hemoglobin A1c Calcium Troponin I 0.094 H* Total Protein Albumin Procalcitonin Urine Appearance Cloudy H Urine Protein 2+ H Urine Glucose (UA) 4+ H Ur Leukocyte Esterase Large H Urine WBC 21 H Urine Bacteria Rare H Urine Mucus Rare H Urine Yeast (Budding) Rare H 06/16/22 06/16/22 06/16/22 16:09 18:05 20:08 WBC Neutrophils # APTT D-Dimer ABG pCO2 ABG pO2 ABG HCO3 ABG Total CO2 Sodium Chloride Carbon Dioxide BUN Glucose POC Glucose (mg/dL) >600 H Hemoglobin A1c Calcium Troponin I 0.070 H* Total Protein Albumin Procalcitonin 0.22 H Urine Appearance Urine Protein Urine Glucose (UA) Ur Leukocyte Esterase Urine WBC Urine Bacteria Urine Mucus Urine Yeast (Budding) 06/16/22 06/17/22 06/17/22 21:10 00:11 02:06 WBC Neutrophils # APTT D-Dimer ABG pCO2 ABG pO2 ABG HCO3 ABG Total CO2 Sodium Chloride Carbon Dioxide BUN Glucose 682 H* POC Glucose (mg/dL) 543 H 410 H Hemoglobin A1c Calcium Troponin I Total Protein Albumin Procalcitonin Urine Appearance Urine Protein Urine Glucose (UA) Ur Leukocyte Esterase Urine WBC Urine Bacteria Urine Mucus Urine Yeast (Budding) 06/17/22 06/17/22 06/17/22 06:16 06:40 11:44 WBC Neutrophils # APTT D-Dimer ABG pCO2 ABG pO2 ABG HCO3 ABG Total CO2 Sodium Chloride Carbon Dioxide BUN Glucose POC Glucose (mg/dL) 206 H 285 H Hemoglobin A1c 11.5 H Calcium Troponin I Total Protein Albumin Procalcitonin Urine Appearance Urine Protein Urine Glucose (UA) Ur Leukocyte Esterase Urine WBC Urine Bacteria Urine Mucus Urine Yeast (Budding) - Diagnostic Findings Chest x-ray: image reviewed CT scan - chest: image reviewed Assessment and Plan Assessment: Acute exacerbation of COPD with possibly mild component of CHF/preserved LV function. ProBNP 1230. Procalcitonin 0.22. Chronic hypoxic respiratory failure still on 3 L of oxygen by nasal cannula COPD the baseline FEV1 value of 54% of predicted Previous COVID 19 infection Hyperglycemia secondary to diabetes mellitus type 2, She is currently on Levemir 46 units twice a day along with NovoLog sliding scale coverage Coronary artery disease with previous coronary stenting and previous coronary artery bypass surgery 2016, previous history of bypass surgery and coronary stenting History of acute ischemic stroke post TPA administration with adequate neurological recovery. This occurred back in March 2021. Hypertension Hyperlipidemia Previous history of ESBL producing UTI Obesity Minimal troponin elevation/elevation, nonspecific Mild lactic acidosis, recovered Plan: The patient was seen and evaluated Chest x-ray, CAT scan, ABGs and labs reviewed Continue Symbicort, albuterol, IV Solu-Medrol Continue diuretics Titrate the FiO2 as tolerated Increase her activity as tolerated Follow-up chest x-ray in a.m. We'll continue to follow and make further recommendations based on her clinical status I have personally seen and examined the patient, performed the documentation and the assessment and plan as written. Number of minutes spent on the visit: 20.
--- NOTE | 2022-06-17 13:19 | P.CRDCN ---
History of Present Illness Consult date: 06/17/22 History of present illness: This pleasant 72-year-old female with a known history of coronary artery disease status post CABG, COPD on home O2, CHF, diabetic, hypertension, hyperlipidemia, CVA presented to the ER with complaints of shortness of breath. We have been consulted for elevated troponins. Initial troponin was 0.94, and 0.70. Third is pending. Patient's EKG showed sinus rhythm with a first-degree, left axis deviation, and left bundle-branch block. Additional labs showed BNP 1230 and an elevated d-dimer. Glucose was above 600 and she had a WBC of 23.4. Her chest x-ray showed pulmonary venous hypertension and interstitial edema. Her chest CT was negative for pulmonary embolism. Patient is examined resting comfortably in bed in no signs of acute distress. She denies chest pain and reports her shortness of breath has improved but she is not back to her baseline. Elevated troponins believed to be secondary to a type II myocardial infarction and will btain a 2-D echocardiogram to evaluate LV function. We will give patient IV Lasix. And start subcu heparin. Review of Systems REVIEW OF SYSTEMS At the time of my exam: CONSTITUTIONAL: Denies fever or chills. EYES: Negative for vision changes ENT: Negative for hearing loss CARDIOVASCULAR: Denies chest pain, shortness of breath, diaphoresis, orthopnea, PND or palpitations. VASCULAR: Denies edema RESPIRATORY: Reports shortness of breath Denies cough. GASTROINTESTINAL: Denies abdominal pain, diarrhea, constipation, nausea or vomiting. MUSCULOSKELETAL: Denies myalgias. NEUROLOGIC: Denies numbness, tingling, headache or weakness. ENDOCRINE: Denies fatigue, weight change, polydipsia or polyurina. GENITOURINARY: Denies burning, hematuria or urgency with micturation. HEMATOLOGIC: Denies history of anemia or bleeding. DERMATOLOGY: Denies rash or skin sores PSYCH: Negative for depression or hallucinations. 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, R caratid artery disease, valvular disease, pulmonary htn, bronchitis, home oxygen prn, poor vision/pt cannot recall reason, UTIs, rash/itching Last Myocardial Infarction Date:: 2014 History of Any Multi-Drug Resistant Organisms: ESBL Date of last positivie culture/infection: 04/15/21 MDRO Source:: ESBL URINE Past Surgical History: Cholecystectomy, Coronary Bypass/CABG, Heart Catheterization With Stent Additional Past Surgical History / Comment(s): PCI/stents in 2009 and 2014, 2016 CABG 3 vessel then sternal debridement for infection/removal of hardware, colonoscopy, bilateral cataract removals. Past Anesthesia/Blood Transfusion Reactions: No Reported Reaction Additional Past Anesthesia/Blood Transfusion Reaction / Comment(s): Claustrophobic Date of Last Stent Placement:: 2014 Past Psychological History: No Psychological Hx Reported Smoking Status: Former smoker Past Alcohol Use History: None Reported Past Drug Use History: None Reported - Past Family History Father Family Medical History: Coronary Artery Disease (CAD), Myocardial Infarction ([place]) Additional Family Medical History / Comment(s): STENT, OPEN HEART SURGERY Mother Additional Family Medical History / Comment(s): DEPRESSION, mental illness Medications and Allergies Home Medications Medication Instructions Recorded Confirmed Type Metoprolol Succinate [Toprol XL] 50 mg PO HS 08/30/18 06/16/22 History Atorvastatin [Lipitor] 80 mg PO HS 09/23/20 06/16/22 History Insulin Lispro [humaLOG Kwikpen] 15 units SQ AC-TID 11/11/20 06/16/22 History Aspirin EC [Ecotrin Low Dose] 81 mg PO DAILY 12/12/21 06/16/22 History Clopidogrel Bisulfate [Plavix] 75 mg PO DAILY 12/12/21 06/16/22 History Insulin Glargine,Hum.rec.anlog 46 unit SQ BID 12/12/21 06/16/22 History [Lantus Solostar Pen] Valsartan 80 mg PO HS 12/12/21 06/16/22 History Acetaminophen Tab [Tylenol] 650 mg PO Q6HR PRN tab 12/15/21 06/16/22 Rx Ipratropium-Albuterol Nebulize 3 ml INHALATION RT-Q6H PRN 12/15/21 06/16/22 History [Duoneb 0.5 mg-3 mg/3 ml Soln] Albuterol Sulfate [Albuterol 2 puff INHALATION RT-Q6H PRN 06/07/22 06/16/22 History Sulfate Hfa] Donepezil [Aricept] 5 mg PO DAILY 06/07/22 06/16/22 History Fluticasone/Umeclidin/Vilanter 1 puff INHALATION RT-DAILY 06/07/22 06/16/22 History [Trelegy Ellipta 100-62.5-25] Furosemide [Lasix] 40 mg PO DAILY #30 tablet 06/08/22 06/16/22 Rx predniSONE See Taper PO DIRECTED 06/16/22 06/16/22 History Allergies Allergy/AdvReac Type Severity Reaction Status Date / Time codeine AdvReac Nausea & Verified 06/16/22 16:20 Vomiting Physical Exam Vitals: Vital Signs Temp Pulse Pulse Resp BP BP Pulse Ox 06/17/22 12:54 97.6 F 56 L 24 120/56 95 06/17/22 12:03 66 06/17/22 11:51 80 06/17/22 08:33 64 06/17/22 08:26 93 L 06/17/22 08:24 60 06/17/22 08:00 97.7 F 60 26 H 105/45 95 06/17/22 03:25 97.5 F L 63 26 H 133/68 98 06/17/22 00:05 97.9 F 75 26 H 144/73 97 06/16/22 20:11 84 06/16/22 20:05 78 06/16/22 19:50 97.4 F L 74 28 H 137/68 94 L 06/16/22 18:57 98.7 F 75 28 H 149/64 98 06/16/22 18:20 77 15 121/70 97 06/16/22 16:36 95 06/16/22 16:12 76 18 119/35 88 L 06/16/22 14:20 75 18 138/95 100 06/16/22 13:50 84 06/16/22 13:32 84 Intake and Output 06/16/22 06/17/22 06/17/22 22:59 06:59 14:59 Intake Total 120 Output Total 350 Balance -350 120 Intake: Oral 120 Output: Urine 350 Other: Voiding Method Toilet Toilet # Voids 2 # Bowel Movements 0 Weight 99.337 kg PHYSICAL EXAMINATION VITAL SIGNS: Reviewed General: The patient is awake and alert, in no distress, and does not appear acutely ill. Skin: Skin is warm and dry and no rashes or lesions are noted. Eye: Pupils are equal, round and reactive to light, extra-ocular movements are intact; there is normal conjunctiva bilaterally. Ears, nose, mouth and throat: There are moist mucous membranes and no oral lesions. Neck: The neck is supple, there is no tenderness or JVD. Cardiovascular: There is irregular regular rate and rhythm. No murmur, rub or gallop is appreciated. Respiratory: Lungs are clear to auscultation, respirations are non-labored, breath sounds are equal. Gastrointestinal: Soft, non-distended, non-tender abdomen without masses or organomegaly noted. There is no rebound or guarding present. Bowel sounds are unremarkable. Back: There is no tenderness to palpation in the midline. There is no obvious deformity. Musculoskeletal: Normal ROM, no tenderness, There is no pedal edema. There is no calf tenderness or swelling. Extremities: Mild bilateral pitting edema Vascular: Femoral pulse is normal. Posterior tibial pulses are normal .Dorsalis pedis is palpable. Neurological: CN II-XII intact. There are no obvious motor or sensory deficits. Speech is normal. Psychiatric: Cooperative, appropriate mood & affect, normal judgment Results 06/16/22 12:07 06/16/22 21:10 Cardiac Enzymes 06/16/22 Range/Units 18:05 Troponin I 0.070 H* (0.000-0.034) ng/mL Comprehensive Metabolic Panel 06/16/22 Range/Units 21:10 Glucose 682 H* (74-99) mg/dL Current Medications Generic Name Dose Route Start Last Admin Trade Name Freq PRN Reason Stop Dose Admin Acetaminophen 650 mg 06/16/22 16:47 06/16/22 22:16 Acetaminophen Tab 325 Mg Tab PO 650 mg Q6HR PRN Administration Mild Pain or Fever > 100.5 Albuterol Sulfate 2.5 mg 06/16/22 22:24 Albuterol Nebulized 2.5 Mg/3 Ml INHALATION RT-Q6H PRN Shortness Of Breath Atorvastatin Calcium 80 mg 06/16/22 21:00 06/16/22 22:13 Atorvastatin 80 Mg Tab PO 80 mg HS KAREN Administration Budesonide/Formoterol Fumarate 2 puff 10/21/22 20:00 06/17/22 08:23 Symbicort 80-4.5 Mcg Inhaler INHALATION 2 puff RT-BID KAREN Administration Clopidogrel Bisulfate 75 mg 06/17/22 09:00 06/17/22 09:11 Clopidogrel 75 Mg Tab PO 75 mg DAILY KAREN Administration Dextrose/Water 25 ml 06/16/22 22:26 Dextrose 50% Syringe 50 Ml IVP PER PROTOCOL PRN Hypoglycemia Protocol Dextrose/Water 50 ml 06/16/22 22:26 Dextrose 50% Syringe 50 Ml IVP PER PROTOCOL PRN Hypoglycemia Protocol Donepezil HCl 5 mg 06/17/22 09:00 06/17/22 09:11 Donepezil 5 Mg Tab PO 5 mg DAILY KAREN Administration Furosemide 40 mg 06/17/22 09:00 06/17/22 09:11 Furosemide 40 Mg Tab PO 40 mg DAILY KAREN Administration Insulin Aspart 15 unit 06/16/22 22:25 06/17/22 12:11 Insulin Aspart (Novolog) 100 Unit/Ml Vial SQ 15 unit AC-TID KAREN Administration Insulin Aspart 0 unit 06/16/22 22:29 06/17/22 12:11 Insulin Aspart (Novolog) 100 Unit/Ml Vial SQ 9 unit ACHS KAREN Administration Protocol Insulin Detemir 46 unit 06/16/22 22:30 06/17/22 09:11 Insulin Detemir (Levemir) 100 Unit/Ml Syr SQ 46 unit BID KAREN Administration Ipratropium [place] 0.5 mg 06/16/22 20:00 06/17/22 11:50 Ipratropium 0.5 Mg/2.5 Ml Nebu INHALATION 0.5 mg RT-QID KAREN Administration Ketorolac Tromethamine 15 mg 06/16/22 16:47 Ketorolac 15 Mg/Ml 1 Ml Vial IVP 06/19/22 16:47 Q6HR PRN Moderate Pain (Scale 4 to 6) Methylprednisolone Sodium Succinate 60 mg 06/17/22 00:00 06/17/22 12:11 Methylprednisolone Sod Succi 125 Mg/2 Ml Vial IV 60 mg Q6HR KAREN Administration Metoprolol Succinate 50 mg 06/16/22 21:00 06/16/22 22:13 Metoprolol Succinate (Er) 50 Mg Tab.Er.24h PO 50 mg HS KAREN Administration Miscellaneous Information 1 each 06/16/22 16:38 Rx Info: Iv Contrast Was Given 1 Each Misc MISCELLANE 06/18/22 16:39 DAILY PRN Per Protocol Ondansetron HCl 4 mg 06/16/22 16:48 Ondansetron 4 Mg/2 Ml Vial IVP Q8H PRN Nausea And Vomiting Valsartan 80 mg 06/16/22 21:00 06/16/22 22:13 Valsartan 80 Mg Tab PO 80 mg HS KAREN Administration Intake and Output 06/16/22 06/17/22 06/17/22 22:59 06:59 14:59 Intake Total 120 Output Total 350 Balance -350 120 Intake: Oral 120 Output: Urine 350 Other: Voiding Method Toilet Toilet # Voids 2 # Bowel Movements 0 Weight 99.337 kg 06/16/22 12:07 06/16/22 21:10 Assessment and Plan Assessment: Troponin elevation cause is unclear believed to be secondary to type II myocardial infarction Acute on chronic diastolic congestive heart failure COPD exacerbation History of coronary artery disease status post coronary artery bypass surgery in 2017 Plan: Transition patient to IV Lasix 40 mg daily Start subcutaneous heparin Will obtain a 2-D echocardiogram Continue with telemetry monitoring Continue with all other current cardiac medications Further recommendations based on clinical course The above impression and plan of care have been discussed and directed by the signing physician. Elsi Mensah, nurse practitioner, acting as scribe for signing physician.
[2022-06-17] MEDS: FUROSEMIDE 10 MG/ML 4 ML VIAL IV SCH (13:37)
[2022-06-17 14:13] VITALS: BMI 41.0
[2022-06-17 16:48] LABS: Glucose,Whole Blood 344 mg/dL (70-110)
--- NOTE | 2022-06-17 19:18 | CA ---
Transthoracic Echo Report Name: Nancy Shah Age: 72 Gender: F : 1950 Exam Date: 06/17/2022 12:35 Exam Location: [facility] Ht (in): 62 Wt (lb): 219 Ordering Physician: Elsi Mensah Attending/Referring Phys: Director Of [employer] Services Frida Daily RDCS Procedure CPT: Indications: positive trop Cardiac Hx: Technical Quality: Technically difficult study Contrast 1: Lumason Total Dose (mL): 5 Contrast 2: Total Dose (mL): MEASUREMENTS (Male / Female) Normal Values M-MODE Aortic Root Diameter MM 3.7 cm DOPPLER AV Peak Velocity 172.1 cm/s AV Peak Gradient 11.8 mmHg AV Mean Velocity 119.9 cm/s AV Mean Gradient 6.2 mmHg AV Velocity Time Integral 32.6 cm LVOT Peak Velocity 81.8 cm/s LVOT Peak Gradient 2.7 mmHg MV Area PHT 2.3 cm??? Mitral E Point Velocity 49.7 cm/s Mitral A Point Velocity 70.5 cm/s Mitral E to A Ratio 0.7 MV Deceleration Time 322.8 ms FINDINGS Left Ventricle Left ventricular ejection fraction is estimated at 50-55%. Mildly increased left ventricular wall thickness. Right Ventricle Right ventricle at upper limits of normal. Right Atrium Normal right atrial size. Left Atrium Left atrial dilatation. Mitral Valve Mitral valve not well visualized. Aortic Valve Aortic valve not well visualized. Tricuspid Valve Tricuspid valve not well visualized. Pulmonic Valve Pulmonic valve not well visualized. Pericardium Aorta CONCLUSIONS Technically suboptimal study Left ventricular systolic function is normal Previewed by: Dr. Jake Flannery MD (Electronically Signed) Final Date: 17 June 2022 19:17
[2022-06-17 20:23] LABS: Glucose,Whole Blood 365 mg/dL (70-110)
[2022-06-17] MEDS: METOPROLOL SUCCINATE (ER) 50 MG TAB.ER.24H PO SCH (20:32)
[2022-06-17] MEDS: VALSARTAN 80 MG TAB PO SCH (20:32)
[2022-06-17] MEDS: ATORVASTATIN 80 MG TAB PO SCH (20:32)
[2022-06-17] MEDS: HEPARIN SODIUM,PORCINE/PF 5,000 UNIT/0.5 ML SYRINGE SQ SCH (20:32)
[2022-06-18 06:40] LABS: Glucose,Whole Blood 159 mg/dL (70-110)
[2022-06-18] MEDS: methylPREDNISolone SOD SUCCI 125 MG/2 ML VIAL IV SCH ×4 (06:44→22:52)
--- NOTE | 2022-06-18 06:51 | XR ---
EXAMINATION TYPE: XR chest 1V portable DATE OF EXAM: 06/18/2022 CLINICAL HISTORY: Difficulty breathing and CHF progress study. TECHNIQUE: Single AP portable upright view of the chest is obtained. COMPARISON: Chest x-ray and CT chest from 2 days earlier FINDINGS: Persistent cardiomegaly with background chronic parenchymal change and areas of increased opacity bilaterally showing some improvement from most recent studies. No pleural effusion or pneumot horax seen. Overlying sternal wires redemonstrated. Degenerative change bilateral glenohumeral joints again seen. IMPRESSION: Cardiomegaly and chronic changes with improving bilateral multifocal edema and/or infiltr ates.
[2022-06-18] MEDS: SYMBICORT 80-4.5 MCG INHALER INHALATION SCH ×2 (07:28→19:30)
[2022-06-18] MEDS: IPRATROPIUM 0.5 MG/2.5 ML NEBU INHALATION SCH ×4 (07:28→19:30)
[2022-06-18] MEDS: INSULIN ASPART (NovoLOG) 100 UNIT/ML VIAL SQ SCH ×7 (07:43→21:14)
[2022-06-18] MEDS ORDERED: INSULIN DETEMIR (LEVEMIR) 100 UNIT/ML SYR SQ SCH (09:00)
[2022-06-18 09:08] LABS: Basophils % (A) 0 %; Eosinophils % (A) 0 %; HCT 38.1 % (34.0-46.0); Hypochromasia Slight; Lymphocytes # (A) 0.5 k/uL (1.0-4.8); Lymphocytes % (A) 3 %; MCHC 31.5 g/dL (31.0-37.0); MCV 95.2 fL (80.0-100.0); Mean Platelet Volume 8.2; Monocytes # (A) 0.5 k/uL (0-1.0); Monocytes % (A) 2 %; Neutrophils # (A) 20.6 k/uL (1.3-7.7); Neutrophils % (A) 95 %; Platelet Count 300 k/uL (150-450); WBC 21.8 k/uL (3.8-10.6)
[2022-06-18] MEDS: DONEPEZIL 5 MG TAB PO SCH (09:16)
[2022-06-18] MEDS: HEPARIN SODIUM,PORCINE/PF 5,000 UNIT/0.5 ML SYRINGE SQ SCH ×2 (09:16→21:13)
[2022-06-18] MEDS: CLOPIDOGREL 75 MG TAB PO SCH (09:16)
[2022-06-18] MEDS: FUROSEMIDE 10 MG/ML 4 ML VIAL IV SCH (09:16)
[2022-06-18 09:20] LABS: Calcium 8.3 mg/dL (8.4-10.2); Magnesium 2.6 mg/dL (1.6-2.3); Potassium 5.5 mmol/L (3.5-5.1)
[2022-06-18 11:54] LABS: Glucose,Whole Blood 235 mg/dL (70-110)
--- NOTE | 2022-06-18 11:56 | P.PN ---
Subjective Progress Note Date: 06/18/22 Principal diagnosis: Acute exacerbation of COPD and acute on chronic diastolic congestive heart failure. This is a pleasant 72-year-old female patient, morbidly obese, essentially a central obesity with known history of diabetes mellitus type 2, coronary artery disease with previous coronary artery bypass surgery and previous coronary stenting. She has also been involved in a previous CVA requiring to be administration in March 2021, other comorbid conditions include hypertension, hyperlipidemia, previous urinary tract infection with ESBL producing gram- negative E. coli.COPD and chronic hypoxic respiratory failure maintained on oxygen at 3 L/m per nasal cannula. The patient has a baseline FEV1 of 54% of predicted and she is option independently as per minute nasal cannula. The patient has Covid 19 infection back in December 2021, which she recovers. She multiple hospitalization for COPD exacerbation. She is using Trelegy Ellipta 1 puff a day on a regular basis and she is also on albuterol neb treatments around the clock as needed. She was just discharged from the hospital on 06/08/2022. The patient was noted by her daughter that she was getting more short of breath and she was having increased cough and for that reason she was transferred or to the emergency department again yesterday 06/16/2022. She is seen today in consultation on the regular medical floor. She is lying flat in bed. Awake and alert in no acute distress. She is dyspneic with conversation. Dyspneic with normal exertion. Her BMI is 39 kg/m. Chest x-ray shows pulmonary venous hyp ertension and interstitial edema. CT angiogram revealed no evidence of pulmonary embolism. There was cardiomegaly. Mediastinum bronchial adenopathy with extensive interstitial pulmonary infiltrates. Possibly related to previous COVID-19 infection and/or interstitial lung disease. Urine culture pending. White count 20.4. Hemoglobin 12.1. D-dimer 0.64. Sodium 134. Potassium 3.8. BUN 35. Creatinine 1.04. Bicarb 33. Glucose 682. BNP 1230. Procalcitonin 0.22. Urinalysis cloudy with large leukoesterase. Lucia virus not detected. Influenza screen negative. Arterial blood gases on 28% FiO2 revealed a PaO2 68, pCO2 53, pH 7.41. Patient was reevaluated today on 06/18/22, she is feeling much per her today compared to yesterday. Her chest x-ray is showing improvement in her inter stitial edema, patient again is feeling great compared to yesterday. Hardly any cough no wheezing and definitely less shortness of breath. WBC count is 21.8 hemoglobin is 12 electrolytes are normal except for slightly elevated potassium her BUN is 79 creatinine 1.50 slightly worse compared to yesterday. Objective - Vital Signs Vital signs: Vital Signs Temp 97.9 F 06/18/22 07:40 Pulse 64 06/18/22 11:29 Resp 20 06/18/22 07:40 BP 122/67 06/18/22 07:40 Pulse Ox 94 L 06/18/22 07:40 FiO2 Intake & Output 06/17/22 06/18/22 06/18/22 18:59 06:59 18:59 Intake Total 240 120 Output Total 250 550 Balance -10 -550 120 Weight 105 kg 106.5 kg Intake: Oral 240 120 Output: Urine 250 550 Other: Voiding Method Toilet # Voids 1 300 # Bowel Movements 1 1 1 - Exam Physical Exam: Revealed a 72-year-old female in no distress, on 3 L nasal cannula, O2 sats is 94%. HEENT:[Neck is supple.] [No neck masses.] [No thyromegaly.] [No JVD.] Chest: Diminished breath sounds at the bases, minimal wheezing on forced expiratory maneuver. Cardiac Exam: [Normal S1 and S2, no S3 gallop, no murmur.] Abdomen: [Soft, nontender, no megaly, no rebound, no guarding, normal bowel sounds.] Extremities: [No clubbing, no edema, no cyanosis.] Neurological Exam: [No focal neurologic deficit.] Alert oriented 3 Psychiatric: Normal mood affect and normal mental status examination. Skin: No rashes - Labs CBC & Chem 7: 06/18/22 08:41 06/18/22 08:41 Labs: Abnormal Lab Results - Last 24 Hours (Table) 06/17/22 06/17/22 06/17/22 Range/Units 06:40 16:47 20:21 WBC (3.8-10.6) k/uL Neutrophils # (1.3-7.7) k/uL Lymphocytes # (1.0-4.8) k/uL Sodium (137-145) mmol/L Potassium (3.5-5.1) mmol/L Chloride (98-107) mmol/L BUN (7-17) mg/dL Creatinine (0.52-1.04) mg/dL Glucose (74-99) mg/dL POC Glucose (mg/dL) 344 H 365 H (70-110) mg/dL Hemoglobin A1c 11.5 H (0.0-6.0) % Calcium (8.4-10.2) mg/dL Magnesium (1.6-2.3) mg/dL 06/18/22 06/18/22 06/18/22 Range/Units 06:38 08:41 08:41 WBC 21.8 H (3.8-10.6) k/uL Neutrophils # 20.6 H (1.3-7.7) k/uL Lymphocytes # 0.5 L (1.0-4.8) k/uL Sodium 132 L (137-145) mmol/L Potassium 5.5 H (3.5-5.1) mmol/L Chloride 94 L (98-107) mmol/L BUN 79 H (7-17) mg/dL Creatinine 1.50 H (0.52-1.04) mg/dL Glucose 269 H (74-99) mg/dL POC Glucose (mg/dL) 159 H (70-110) mg/dL Hemoglobin A1c (0.0-6.0) % Calcium 8.3 L (8.4-10.2) mg/dL Magnesium 2.6 H (1.6-2.3) mg/dL Microbiology - Last 24 Hours (Table) 06/16/22 14:19 Urine Culture - Final Urine,Voided 06/16/22 13:41 Blood Culture - Preliminary Blood No Growth after 24 hours 06/16/22 13:41 Blood Culture - Preliminary Blood No Growth after 24 hours Assessment and Plan Assessment: Impression: Acute exacerbation of COPD Acute on chronic diastolic congestive heart failure History of COVID-19 infection Type 2 diabetes Hypertension Dyslipidemia History of ESBL, UTI. Recommendation: Continue diuretics Continue bronchodilators Monitor renal status Chest x-ray is showing definite improvement and clinically the patient is much better today compared to yesterday Continue to titrate FiO2 Consider discharge planning in the next 24 hours if cleared by cardiology. Time with Patient: Less than 30
--- NOTE | 2022-06-18 14:39 | P.PN ---
Subjective Progress Note Date: 06/18/22 Patient is seen today resting comfortably in bed in no signs of acute distress. She had an echocardiogram performed yesterday which was a suboptimal study however did show a low normal LV function with an ejection fraction of 50-55%. Potassium is elevated and BUN have also elevated. Nephrology has been consult that. Will transition to oral Lasix. Objective - Vital Signs Vital signs: Vital Signs Temp 98 F 06/18/22 12:20 Pulse 62 06/18/22 12:20 Resp 22 06/18/22 12:20 BP 153/91 06/18/22 12:20 Pulse Ox 92 L 06/18/22 12:20 FiO2 Intake & Output 06/17/22 06/18/22 06/18/22 18:59 06:59 18:59 Intake Total 240 120 Output Total 250 550 Balance -10 -550 120 Weight 105 kg 106.5 kg Intake: Oral 240 120 Output: Urine 250 550 Other: Voiding Method Toilet # Voids 1 300 # Bowel Movements 1 1 1 - Exam PHYSICAL EXAM: VITAL SIGNS: Reviewed. GENERAL: Well-developed in no acute distress. HEENT: Head is normocephalic. Pupils are equal, round. Sclerae anicteric. Mucous membranes of the mouth are moist. NECK: Supple. No JVD or thyromegaly RESPIRATORY: Respirations even and unlabored. Lungs diminished to auscultation b ilaterally. CARDIO: Regular rate and rhythm. S1 and S2 heard. No murmur or gallops. EXTREMITIES: Normal range of motion. No clubbing or cyanosis. Peripheral pulses intact. Negative for bilateral lower extremity edema NEURO: Orientated to person, time, mood is appropriate - Labs CBC & Chem 7: 06/18/22 08:41 06/18/22 08:41 Labs: Abnormal Lab Results - Last 24 Hours (Table) 06/17/22 06/17/22 06/18/22 Range/Units 16:47 20:21 06:38 WBC (3.8-10.6) k/uL Neutrophils # (1.3-7.7) k/uL Lymphocytes # (1.0-4.8) k/uL Sodium (137-145) mmol/L Potassium (3.5-5.1) mmol/L Chloride (98-107) mmol/L BUN (7-17) mg/dL Creatinine (0.52-1.04) mg/dL Glucose (74-99) mg/dL POC Glucose (mg/dL) 344 H 365 H 159 H (70-110) mg/dL Calcium (8.4-10.2) mg/dL Magnesium (1.6-2.3) mg/dL 06/18/22 06/18/22 06/18/22 Range/Units 08:41 08:41 11:53 WBC 21.8 H (3.8-10.6) k/uL Neutrophils # 20.6 H (1.3-7.7) k/uL Lymphocytes # 0.5 L (1.0-4.8) k/uL Sodium 132 L (137-145) mmol/L Potassium 5.5 H (3.5-5.1) mmol/L Chloride 94 L (98-107) mmol/L BUN 79 H (7-17) mg/dL Creatinine 1.50 H (0.52-1.04) mg/dL Glucose 269 H (74-99) mg/dL POC Glucose (mg/dL) 235 H (70-110) mg/dL Calcium 8.3 L (8.4-10.2) mg/dL Magnesium 2.6 H (1.6-2.3) mg/dL Microbiology - Last 24 Hours (Table) 06/16/22 14:19 Urine Culture - Final Urine,Voided 06/16/22 13:41 Blood Culture - Preliminary Blood No Growth after 24 hours 06/16/22 13:41 Blood Culture - Preliminary Blood No Growth after 24 hours Assessment and Plan Assessment: Troponin elevation cause is unclear believed to be secondary to type II myocardial infarction Acute on chronic diastolic congestive heart failure COPD exacerbation History of coronary artery disease status post coronary artery bypass surgery in 2017 Plan: Transition patient to poLasix 40 mg daily 2-D echocardiogram obtained and reviewed Continue with telemetry monitoring Continue with all other current cardiac medications Further recommendations based on clinical course The above impression and plan of care have been discussed and directed by the signing physician. Elsi Mensah, nurse practitioner, acting as scribe for signing physician.
[2022-06-18] MEDS ORDERED: SODIUM ZIRCONIUM CYCLOSILICATE 10 GM PACKET PO ONE (15:00)
[2022-06-18] MEDS: amLODIPine 5 MG TAB PO SCH (16:08)
[2022-06-18 16:39] LABS: Glucose,Whole Blood 360 mg/dL (70-110)
--- NOTE | 2022-06-18 17:44 | P.PN ---
Subjective This is a pleasant 72 years old female with multiple medical problems as below Patient was recently in this facility for COPD exacerbation 06/07-06/08. Presents this time with worsening dyspnea over 2 days duration, patient denies worsening cough or chest pain. No dizziness or headache or weakness or numbness No diarrhea or vomiting or abdominal pain Also patient denies dysuria or urgency She is on 3 L oxygen via nasal cannula at home, she sees Dr. Monique as an outpatient She quit smoking many years ago, no alcohol or illicit drugs. She's not on home prednisone Vitals stable and patient is afebrile. Patient is tachypneic with a breathing rate around 26. She is saturating 93% on 3 total oxygen via nasal cannula this morning Patient has leukocytosis of 23,000. INR 0.9. D-dimer is 0.64 Venous pH is normal at 7.4 with pCO2 53 slightly elevated. Sodium was elevated on admission is 682, currently 206 Troponin elevated at 0.09 and 0.07. Creatinine 1.0, BUN elevated 35, sodium 134. proCalcitonin is slightly elevated 0.22. Urinalysis is suspicious for infection ProBNP 1.30 Lucia and influenza virus is not detected CTA of the chest showing no PE but that his mediastinal and bronchial adenopathy with extensive interstitial pulmonary infiltrates. This could be sarcoidosis. There is progression of the interstitial lung disease compared to old exam Progressive interstitial lung disease EKG showing normal sinus rhythm at 62 06/18/2022 Patient improving slowly and gradually and she feels better and breathing easier. Creatinine went up to 1.5 therefore switch oral Lasix and oral dose 40 mg daily Other than she remains on IV Solu-Medrol Ejection fraction showing 50-55% CT of the chest is negative for PE. She has leukocytosis secondary to steroid effect, no need for antibiotics for now. Objective - Vital Signs Vital signs: Vital Signs Temp 98.3 F 06/18/22 16:43 Pulse 64 06/18/22 16:43 Resp 20 06/18/22 16:43 BP 127/49 06/18/22 16:43 Pulse Ox 91 L 06/18/22 16:43 FiO2 Intake & Output 06/17/22 06/18/22 06/18/22 18:59 06:59 18:59 Intake Total 240 240 Output Total 250 550 Balance -10 -550 240 Weight 105 kg 106.5 kg Intake: Oral 240 240 Output: Urine 250 550 Other: Voiding Method Toilet # Voids 1 300 # Bowel Movements 1 1 1 - Exam GENERAL: The patient is alert and oriented x3, not in any acute distress. Well developed, well nourished. HEENT: Pupils are round and equally reacting to light. EOMI. No scleral icterus. No conjunctival pallor. Normocephalic, atraumatic. No pharyngeal erythema. No thyromegaly. CARDIOVASCULAR: S1 and S2 present. No murmurs, rubs, or gallops. PULMONARY: Chest is clear to auscultation, no wheezing or crackles. ABDOMEN: Soft, nontender, nondistended, normoactive bowel sounds. No palpable organomegaly. MUSCULOSKELETAL: No joint swelling or deformity. EXTREMITIES: No cyanosis, clubbing, or pedal edema. NEUROLOGICAL: Gross neurological examination did not reveal any focal deficits. SKIN: No rashes. no petechiae. - Labs CBC & Chem 7: 06/18/22 08:41 06/18/22 08:41 Labs: Abnormal Lab Results - Last 24 Hours (Table) 06/17/22 06/18/22 06/18/22 Range/Units 20:21 06:38 08:41 WBC 21.8 H (3.8-10.6) k/uL Neutrophils # 20.6 H (1.3-7.7) k/uL Lymphocytes # 0.5 L (1.0-4.8) k/uL Sodium (137-145) mmol/L Potassium (3.5-5.1) mmol/L Chloride (98-107) mmol/L BUN (7-17) mg/dL Creatinine (0.52-1.04) mg/dL Glucose (74-99) mg/dL POC Glucose (mg/dL) 365 H 159 H (70-110) mg/dL Calcium (8.4-10.2) mg/dL Magnesium (1.6-2.3) mg/dL 06/18/22 06/18/22 06/18/22 Range/Units 08:41 11:53 16:37 WBC (3.8-10.6) k/uL Neutrophils # (1.3-7.7) k/uL Lymphocytes # (1.0-4.8) k/uL Sodium 132 L (137-145) mmol/L Potassium 5.5 H (3.5-5.1) mmol/L Chloride 94 L (98-107) mmol/L BUN 79 H (7-17) mg/dL Creatinine 1.50 H (0.52-1.04) mg/dL Glucose 269 H (74-99) mg/dL POC Glucose (mg/dL) 235 H 360 H (70-110) mg/dL Calcium 8.3 L (8.4-10.2) mg/dL Magnesium 2.6 H (1.6-2.3) mg/dL Microbiology - Last 24 Hours (Table) 06/16/22 13:41 Blood Culture - Preliminary Blood No Growth after 48 hours 06/16/22 13:41 Blood Culture - Preliminary Blood No Growth after 48 hours 06/16/22 14:19 Urine Culture - Final Urine,Voided Assessment and Plan Assessment: Acute COPD exacerbation possible Acute urinary tract infection extensive interstitial lung disease with bilateral bronchial and mediastinal lymphadenopathy. Possible sarcoidosis Acute on chronic hypoxic respiratory failure Previous Covid 19 infection 2 diabetes mellitus History of coronary artery disease status post bypass History of CVA/TIA Hypertension Hyperlipidemia Obesity Plan: This is a pleasant 72 years old female with COPD exacerbation An you with steroids Continue with bronchodilator Pulmonary consult continue with ceftriaxone follow-up urine culture . 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 Continue same treatment. Continue with symptomatic treatment. Resume home medication. Monitor lytes and vitals. DVT and GI prophylaxis. Further recommendations as per clinical course of the patient DVT prophylaxis: Subcutaneous heparin GI Prophylaxis: Pepcid PT/OT: Pending Prognosis is guarded
[2022-06-18 20:07] LABS: Glucose,Whole Blood 570 mg/dL (70-110)
[2022-06-18] MEDS: METOPROLOL SUCCINATE (ER) 50 MG TAB.ER.24H PO SCH (21:13)
[2022-06-18] MEDS: ATORVASTATIN 80 MG TAB PO SCH (21:13)
[2022-06-18] MEDS: INSULIN DETEMIR (LEVEMIR) 100 UNIT/ML SYR SQ SCH (21:14)
[2022-06-19 05:47] LABS: Glucose,Whole Blood 190 mg/dL (70-110)
[2022-06-19] MEDS: methylPREDNISolone SOD SUCCI 125 MG/2 ML VIAL IV SCH ×2 (07:05→12:35)
[2022-06-19] MEDS: IPRATROPIUM 0.5 MG/2.5 ML NEBU INHALATION SCH ×2 (07:06→11:23)
[2022-06-19] MEDS: SYMBICORT 80-4.5 MCG INHALER INHALATION SCH (07:07)
[2022-06-19] MEDS: INSULIN ASPART (NovoLOG) 100 UNIT/ML VIAL SQ SCH ×4 (07:43→12:36)
[2022-06-19 08:26] LABS: Calcium 8.1 mg/dL (8.4-10.2); Magnesium 2.7 mg/dL (1.6-2.3)
[2022-06-19] MEDS: HEPARIN SODIUM,PORCINE/PF 5,000 UNIT/0.5 ML SYRINGE SQ SCH (08:58)
[2022-06-19] MEDS: amLODIPine 5 MG TAB PO SCH (08:58)
[2022-06-19] MEDS: INSULIN DETEMIR (LEVEMIR) 100 UNIT/ML SYR SQ SCH (08:58)
[2022-06-19] MEDS: CLOPIDOGREL 75 MG TAB PO SCH (08:58)
[2022-06-19] MEDS: DONEPEZIL 5 MG TAB PO SCH (08:59)
[2022-06-19] MEDS ORDERED: FUROSEMIDE 40 MG TAB PO SCH (09:00)
[2022-06-19 09:06] VITALS: BP 153/77; RESP 20; TEMP 97.9
--- NOTE | 2022-06-19 11:04 | P.PN ---
Subjective This is a 71 year old female with a past medical history significant for coronary artery disease with previous CABG, hypertension, type 2 diabetes, CHF, hyperlipidemia, COPD, and former nicotine dependence. Patient follows in the office with Dr. Flannery. We've been asked to see in consultation for elevated troponin and congestive heart failure. Patient presented emergency department with shortness of breath. There was concern for congestive heart failure. She was started on IV Lasix. Patient seen and examined at bedside, no acute distress. She is currently on PO Lasix. She denies any chest pain or shortness of breath. She feels back to her baseline. Echocardiogram revealed an EF 5055 percent, technically difficult study, valve is not visualized well. Labs, sodium 134, potassium 5.0, BUN 85, serum creatinine 1.3 GENERAL: Well-appearing, well-nourished and in no acute distress. NECK: Supple without JVD or thyromegaly. LUNGS: Breath sounds with wheezing bilaterally to auscultation bilaterally. Respiration equal and unlabored. No wheezes, rales or rhonchi. HEART: Regular rate and rhythm without murmurs, rubs or gallops. S1 and S2 heard. EXTREMITIES: Normal range of motion, no edema. No clubbing or cyanosis. Peripheral pulses intact. ASSESSMENT Acute on chronic heart failure with preserved ejection fraction COPD exacerbation Coronary artery disease with prior CABG Type 2 diabetes Hypertension Dyslipidemia Former tobacco use PLAN Continue PO Lasix Continue home cardiac medications Patient stable to be discharged from cardiology perspective. Follow up outpatient with Dr. Flannery. Nurse Practitioner note has been reviewed, I agree with a documented findings and plan of care. Patient was seen and examined. Objective - Vital Signs Vital signs: Vital Signs Temp 98.4 F 06/19/22 04:00 Pulse 56 L 06/19/22 07:17 Resp 18 06/19/22 04:00 BP 150/54 06/19/22 04:00 Pulse Ox 93 L 06/19/22 07:09 FiO2 Intake & Output 06/18/22 06/19/22 06/19/22 18:59 06:59 18:59 Intake Total 480 Output Total 350 Balance 480 -350 Weight 106.5 kg 104.6 kg Intake: Oral 480 Output: Urine 350 Other: Voiding Method Toilet # Voids 300 2 # Bowel Movements 0 - Labs CBC & Chem 7: 06/18/22 08:41 06/19/22 07:45 Labs: Abnormal Lab Results - Last 24 Hours (Table) 06/18/22 06/18/22 06/18/22 Range/Units 08:41 08:41 11:53 WBC 21.8 H (3.8-10.6) k/uL Neutrophils # 20.6 H (1.3-7.7) k/uL Lymphocytes # 0.5 L (1.0-4.8) k/uL Sodium 132 L (137-145) mmol/L Potassium 5.5 H (3.5-5.1) mmol/L Chloride 94 L (98-107) mmol/L Carbon Dioxide (22-30) mmol/L BUN 79 H (7-17) mg/dL Creatinine 1.50 H (0.52-1.04) mg/dL Glucose 269 H (74-99) mg/dL POC Glucose (mg/dL) 235 H (70-110) mg/dL Calcium 8.3 L (8.4-10.2) mg/dL Magnesium 2.6 H (1.6-2.3) mg/dL 06/18/22 06/18/22 06/19/22 Range/Units 16:37 20:05 05:45 WBC (3.8-10.6) k/uL Neutrophils # (1.3-7.7) k/uL Lymphocytes # (1.0-4.8) k/uL Sodium (137-145) mmol/L Potassium (3.5-5.1) mmol/L Chloride (98-107) mmol/L Carbon Dioxide (22-30) mmol/L BUN (7-17) mg/dL Creatinine (0.52-1.04) mg/dL Glucose (74-99) mg/dL POC Glucose (mg/dL) 360 H 570 H 190 H (70-110) mg/dL Calcium (8.4-10.2) mg/dL Magnesium (1.6-2.3) mg/dL 06/19/22 Range/Units 07:45 WBC (3.8-10.6) k/uL Neutrophils # (1.3-7.7) k/uL Lymphocytes # (1.0-4.8) k/uL Sodium 134 L (137-145) mmol/L Potassium (3.5-5.1) mmol/L Chloride 94 L (98-107) mmol/L Carbon Dioxide 33 H (22-30) mmol/L BUN 85 H (7-17) mg/dL Creatinine 1.34 H (0.52-1.04) mg/dL Glucose 217 H (74-99) mg/dL POC Glucose (mg/dL) (70-110) mg/dL Calcium 8.1 L (8.4-10.2) mg/dL Magnesium 2.7 H (1.6-2.3) mg/dL Microbiology - Last 24 Hours (Table) 06/16/22 13:41 Blood Culture - Preliminary Blood No Growth after 48 hours 06/16/22 13:41 Blood Culture - Preliminary Blood No Growth after 48 hours
[2022-06-19 11:35] VITALS: PULSE 78
[2022-06-19 11:47] LABS: Glucose,Whole Blood 379 mg/dL (70-110)
--- NOTE | 2022-06-19 14:16 | P.PN ---
Subjective Progress Note Date: 06/19/22 This is a pleasant 72-year-old female patient, morbidly obese, essentially a central obesity with known history of diabetes mellitus type 2, coronary artery disease with previous coronary artery bypass surgery and previous coronary stenting. She has also been involved in a previous CVA requiring to be ad ministration in March 2021, other comorbid conditions include hypertension, hyperlipidemia, previous urinary tract infection with ESBL producing gram- negative E. coli.COPD and chronic hypoxic respiratory failure maintained on oxygen at 3 L/m per nasal cannula. The patient has a baseline FEV1 of 54% of predicted and she is option independently as per minute nasal cannula. The patient has Covid 19 infection back in December 2021, which she recovers. She multiple hospitalization for COPD exacerbation. She is using Trelegy Ellipta 1 puff a day on a regular basis and she is also on albuterol neb treatments around the clock as needed. She was just discharged from the hospital on 06/08/2022. The patient was noted by her daughter that she was getting more short of breath and she was having increased cough and for that reason she was transferred or to the emergency department again yesterday 06/16/2022. She is seen today in consultation on the regular medical floor. She is lying flat in bed. Awake and alert in no acute distress. She is dyspneic with conversation. Dyspneic with normal exertion. Her BMI is 39 kg/m. Chest x-ray shows pulmonary venous hypertension and interstitial edema. CT angiogram revealed no evidence of pulmonary embolism. There was cardiomegaly. Mediastinum bronchial adenopathy with extensive interstitial pulmonary infiltrates. Possibly related to previous COVID-19 infection and/or interstitial lung disease. Urine culture pending. White count 20.4. Hemoglobin 12.1. D-dimer 0.64. Sodium 134. Potassium 3.8. BUN 35. Creatinine 1.04. Bicarb 33. Glucose 682. BNP 1230. Procalcitonin 0.22. Urinalysis cloudy with large leukoesterase. Lucia virus not detected. Influenza screen negative. Arterial blood gases on 28% FiO2 revealed a PaO2 68, pCO2 53, pH 7.41. Patient was reevaluated today on 06/18/22, she is feeling much per her today compared to yesterday. Her chest x-ray is showing improvement in her interstitial edema, patient again is feeling great compared to yesterday. Hardly any cough no wheezing and definitely less shortness of breath. WBC count is 21.8 hemoglobin is 12 electrolytes are normal except for slightly elevated potassium her BUN is 79 creatinine 1.50 slightly worse compared to yesterday. The patient is seen today 06/19/2022 in follow-up on the regular medical floor. She is currently resting comfortably in bed. Awake and alert in no acute distress. She is maintaining good O2 saturations in the 90s on 2 L/m per nasal cannula. No IV fluids. Sodium 134. Potassium 5.0. BUN 85. Creatinine 1.34. Glucose 217. She is continued on Symbicort, albuterol, oral diuretics. Heparin for DVT prophylaxis. Remains on Levemir and NovoLog. She is anxious to go home. Objective - Vital Signs Vital signs: Vital Signs Temp 97.9 F 06/19/22 08:55 Pulse 78 06/19/22 11:34 Resp 20 06/19/22 08:55 BP 153/77 06/19/22 08:55 Pulse Ox 92 L 06/19/22 08:55 FiO2 Intake & Output 06/18/22 06/19/22 06/19/22 18:59 06:59 18:59 Intake Total 480 236 Output Total 350 Balance 480 -350 236 Weight 106.5 kg 104.6 kg Intake: Oral 480 236 Output: Urine 350 Other: Voiding Method Toilet Toilet # Voids 300 2 # Bowel Movements 0 - Exam GENERAL EXAM: Alert, pleasant, obese 72-year-old white female, on 2 L of O2 nasal cannula, her breathing is nonlabored this point in time. HEAD: Normocephalic/atraumatic. EYES: Normal reaction of pupils, equal size. Conjunctiva pink, sclera white. NOSE: Clear with pink turbinates. THROAT: No erythema or exudates. NECK: No masses, no JVD, no thyroid enlargement, no adenopathy. CHEST: No chest wall deformity. Symmetrical expansion. Diminished breath sounds along with some limited crackles in lung bases bilaterally. LUNGS: Equal air entry with no crackles, wheeze, rhonchi or dullness. CVS: Regular rate and rhythm, normal S1 and S2, no gallops, no murmurs, no rubs ABDOMEN: Soft, nontender. No hepatosplenomegaly, normal bowel sounds, no guarding or rigidity. EXTREMITIES: No clubbing, no edema, no cyanosis, 2+ pulses and upper and lower extremities. MUSCULOSKELETAL: Muscle strength and tone normal. SPINE: No scoliosis or deformity SKIN: No rashes CENTRAL NERVOUS SYSTEM: No focal neurological deficits. PSYCHIATRIC: Alert and oriented -3. Appropriate affect. Intact judgment and insight. - Labs CBC & Chem 7: 06/18/22 08:41 06/19/22 07:45 Labs: Abnormal Lab Results - Last 24 Hours (Table) 06/18/22 06/18/22 06/19/22 Range/Units 16:37 20:05 05:45 Sodium (137-145) mmol/L Chloride (98-107) mmol/L Carbon Dioxide (22-30) mmol/L BUN (7-17) mg/dL Creatinine (0.52-1.04) mg/dL Glucose (74-99) mg/dL POC Glucose (mg/dL) 360 H 570 H 190 H (70-110) mg/dL Calcium (8.4-10.2) mg/dL Magnesium (1.6-2.3) mg/dL 06/19/22 06/19/22 Range/Units 07:45 11:45 Sodium 134 L (137-145) mmol/L Chloride 94 L (98-107) mmol/L Carbon Dioxide 33 H (22-30) mmol/L BUN 85 H (7-17) mg/dL Creatinine 1.34 H (0.52-1.04) mg/dL Glucose 217 H (74-99) mg/dL POC Glucose (mg/dL) 379 H (70-110) mg/dL Calcium 8.1 L (8.4-10.2) mg/dL Magnesium 2.7 H (1.6-2.3) mg/dL Microbiology - Last 24 Hours (Table) 06/16/22 13:41 Blood Culture - Preliminary Blood No Growth after 48 hours 06/16/22 13:41 Blood Culture - Preliminary Blood No Growth after 48 hours Assessment and Plan Assessment: Acute exacerbation of COPD with possibly mild component of CHF/preserved LV function. ProBNP 1230. Procalcitonin 0.22. Chronic hypoxic respiratory failure still on 3 L of oxygen by nasal cannula COPD the baseline FEV1 value of 54% of predicted Previous COVID 19 infection Hyperglycemia secondary to diabetes mellitus type 2, She is currently on Le vemir 46 units twice a day along with NovoLog sliding scale coverage Coronary artery disease with previous coronary stenting and previous coronary artery bypass surgery 2016, previous history of bypass surgery and coronary stenting History of acute ischemic stroke post TPA administration with adequate neurological recovery. This occurred back in March 2021. Hypertension Hyperlipidemia Previous history of ESBL producing UTI Obesity Minimal troponin elevation/elevation, nonspecific Mild lactic acidosis, recovered Plan: The patient was seen and evaluated Medications and labs reviewed Continue her home Trelegy, prednisone, albuterol Continue diuretics per cardiology Cleared for discharge from the pulmonary standpoint Follow-up in our office in 1 week I have personally seen and examined the patient, performed the documentation and the assessment and plan as written. Number of minutes spent on the visit: 10.
--- NOTE | 2022-06-19 15:49 | P.DS ---
Providers Date of admission: 06/16/22 15:32 Attending physician: Irwin Arredondo Consults: 06/17/22 08:42 Consult Physician Urgent Consulting Provider: Ishaan Sarabia Consult Reason/Comments: Elevated troponin Do you want consulting provider notified?: Yes Consult Physician Urgent Consulting Provider: Saba Preston Consult Reason/Comments: COPD Do you want consulting provider notified?: Yes Primary care physician: [facility] Course: 70-year-old female admitted for COPD exacerbation patient is clinically doing well physical that the occupational to be evaluated the patient is recommending any subacute rehabilitation. Patient has a symptomatically bacteriuria may not require any antibiotics antibiotics will be discontinued patient had acute renal failure probably due to excessive diuresis which is improving at this time patient's diuretic will be held for today repeat basic metabolic profile in couple days. Patient will be discharged today the right no evidence of pneumonia at this time. PHYSICAL EXAMINATION: GENERAL: The patient is alert and oriented x3, not in any acute distress. Well developed, well nourished. HEENT: Pupils are round and equally reacting to light. EOMI. No scleral icterus. No conjunctival pallor. Normocephalic, atraumatic. No pharyngeal erythema. No thyromegaly. CARDIOVASCULAR: S1 and S2 present. No murmurs, rubs, or gallops. PULMONARY: Chest is clear to auscultation, no wheezing or crackles. ABDOMEN: Soft, nontender, nondistended, normoactive bowel sounds. No palpable organomegaly. MUSCULOSKELETAL: No joint swelling or deformity. EXTREMITIES: No cyanosis, clubbing, or pedal edema. NEUROLOGICAL: Gross neurological examination did not reveal any focal deficits. SKIN: No rashes. Assessment and Plan Assessment: Acute COPD exacerbation Asymptomatic bacteriuria -No evidence of Bactrim pneumonia extensive interstitial lung disease with bilateral bronchial and mediastinal lymphadenopathy. Possible sarcoidosis pulmonary evaluated the patient Acute on chronic hypoxic respiratory failure Previous Covid 19 infection 2 diabetes mellitus History of coronary artery disease status post bypass History of CVA/TIA Hypertension Hyperlipidemia Obesity Plan - Discharge Summary Discharge Rx Participant: No New Discharge Prescriptions: New amLODIPine [Norvasc] 5 mg PO DAILY #30 tab predniSONE 10 mg PO DAILY #30 tab Famotidine [Pepcid] 20 mg PO BID #20 tablet Continue Metoprolol Succinate [Toprol XL] 50 mg PO HS Atorvastatin [Lipitor] 80 mg PO HS Clopidogrel Bisulfate [Plavix] 75 mg PO DAILY Aspirin EC [Ecotrin Low Dose] 81 mg PO DAILY Insulin Glargine,Hum.rec.anlog [Lantus Solostar Pen] 46 unit SQ BID Acetaminophen Tab [Tylenol] 650 mg PO Q6HR PRN tab PRN Reason: Mild Pain Or Fever > 100.5 Fluticasone/Umeclidin/Vilanter [Trelegy Ellipta 100-62.5-25] 1 puff INHALATION RT-DAILY Donepezil [Aricept] 5 mg PO DAILY Ipratropium-Albuterol Nebulize [Duoneb 0.5 mg-3 mg/3 ml Soln] 3 ml INHALATION RT-Q6H PRN PRN Reason: Shortness Of Breath Albuterol Sulfate [Albuterol Sulfate Hfa] 2 puff INHALATION RT-Q6H PRN PRN Reason: Shortness Of Breath Insulin Lispro [humaLOG Kwikpen] 15 units SQ AC-TID #0 Furosemide [Lasix] 40 mg PO DAILY #30 tablet Discontinued Valsartan 80 mg PO HS predniSONE See Taper PO DIRECTED Discharge Medication List Metoprolol Succinate [Toprol XL] 50 mg PO HS 08/30/18 [History] Atorvastatin [Lipitor] 80 mg PO HS 09/23/20 [History] Aspirin EC [Ecotrin Low Dose] 81 mg PO DAILY 12/12/21 [History] Clopidogrel Bisulfate [Plavix] 75 mg PO DAILY 12/12/21 [History] Insulin Glargine,Hum.rec.anlog [Lantus Solostar Pen] 46 unit SQ BID 12/12/21 [History] Acetaminophen Tab [Tylenol] 650 mg PO Q6HR PRN tab 12/15/21 [Rx] Ipratropium-Albuterol Nebulize [Duoneb 0.5 mg-3 mg/3 ml Soln] 3 ml INHALATION RT-Q6H PRN 12/15/21 [History] Albuterol Sulfate [Albuterol Sulfate Hfa] 2 puff INHALATION RT-Q6H PRN 06/07/22 [History] Donepezil [Aricept] 5 mg PO DAILY 06/07/22 [History] Fluticasone/Umeclidin/Vilanter [Trelegy Ellipta 100-62.5-25] 1 puff INHALATION RT-DAILY 06/07/22 [History] Famotidine [Pepcid] 20 mg PO BID #20 tablet 06/19/22 [Rx] Furosemide [Lasix] 40 mg PO DAILY #30 tablet 06/19/22 [Rx] Insulin Lispro [humaLOG Kwikpen] 15 units SQ AC-TID #0 06/19/22 [Rx] amLODIPine [Norvasc] 5 mg PO DAILY #30 tab 06/19/22 [Rx] predniSONE 10 mg PO DAILY #30 tab 06/19/22 [Rx] Follow up Appointment(s)/Referral(s): Elvira Gonzales MD [Primary Care Provider] - 06/21/22 11:00 am Jake Flannery MD [STAFF PHYSICIAN] - 06/27/22 3:00 pm [facility] Visiting Nurse, [NON-STAFF] - ([facility] WILL CONTACT YOU) Patient Instructions/Handouts: Heart Failure (DC), COPD (Chronic Obstructive Pulmonary Disease) (DC) Discharge Disposition: HOME SELF-CARE
== END 2022-06-19 14:56 | disposition home or self-care (01) | DRG 190 ==
LOC: EC 11:38 → 3SCARD 15:32
PROVIDERS: ADMIT Hospitalist; ATTEND Hospitalist
DX: J44.1 Chronic obstructive pulmonary disease with (acute) exacerbation (principal); I21.A1 Myocardial infarction type 2; I50.33 Acute on chronic diastolic (congestive) heart failure; J96.21 Acute and chronic respiratory failure with hypoxia; N39.0 Urinary tract infection, site not specified; J84.9 Interstitial pulmonary disease, unspecified; E87.20 Acidosis, unspecified; Z20.822 Contact with and (suspected) exposure to COVID-19; I11.0 Hypertensive heart disease with heart failure; I25.10 Atherosclerotic heart disease of native coronary artery without angina pectoris; D86.9 Sarcoidosis, unspecified; E11.42 Type 2 diabetes mellitus with diabetic polyneuropathy; E11.65 Type 2 diabetes mellitus with hyperglycemia; I65.21 Occlusion and stenosis of right carotid artery; F03.90 Unspecified dementia, unspecified severity, without behavioral disturbance, psychotic disturbance, mood disturbance, and anxiety; I27.20 Pulmonary hypertension, unspecified; Z79.4 Long term (current) use of insulin; T38.0X5A Adverse effect of glucocorticoids and synthetic analogues, initial encounter; D72.829 Elevated white blood cell count, unspecified; R59.9 Enlarged lymph nodes, unspecified; I44.7 Left bundle-branch block, unspecified; E78.5 Hyperlipidemia, unspecified; F40.240 Claustrophobia; I25.2 Old myocardial infarction; E66.01 Morbid (severe) obesity due to excess calories; Z88.5 Allergy status to narcotic agent; Z99.81 Dependence on supplemental oxygen; Z79.899 Other long term (current) drug therapy; Z79.82 Long term (current) use of aspirin; Z79.02 Long term (current) use of antithrombotics/antiplatelets; Z79.51 Long term (current) use of inhaled steroids; Z79.52 Long term (current) use of systemic steroids; Z95.1 Presence of aortocoronary bypass graft; Z86.73 Personal history of transient ischemic attack (TIA), and cerebral infarction without residual deficits; Z95.5 Presence of coronary angioplasty implant and graft; Z86.16 Personal history of COVID-19; Z87.01 Personal history of pneumonia (recurrent); Z87.440 Personal history of urinary (tract) infections; Z87.891 Personal history of nicotine dependence; Z86.19 Personal history of other infectious and parasitic diseases; Z82.49 Family history of ischemic heart disease and other diseases of the circulatory system; Z81.8 Family history of other mental and behavioral disorders; Z68.39 Body mass index [BMI] 39.0-39.9, adult; R82.71 Bacteriuria; Z98.42 Cataract extraction status, left eye; Z98.41 Cataract extraction status, right eye; Z90.49 Acquired absence of other specified parts of digestive tract
CPT/HCPCS: 36415; 36600; 71045; 71046; 71260; 80048; 80053; 81001; 82805; 82947; 83036; 83605; 83735; 83880; 84132; 84145; 84484; 85025; 85379; 85610; 85730; 87040; 87086; 87502; 87635; 93005; 93306; 94640; 94760; 96374; 99285

== ENCOUNTER 2023-02-28 05:51 | Day surgery (SDC) | payer MEDICARE ==
[2023-02-21 15:11] VITALS: BMI 35.8
[2023-02-28] MEDS ORDERED: LIDOCAINE 1% (10MG/ML) FOR IV START INTRADERMA PRN (06:15)
[2023-02-28] MEDS ORDERED: LACTATED RINGERS 1,000 ML IV SCH (06:15)
[2023-02-28 07:17] LABS: Glucose,Whole Blood 183 mg/dL (70-110)
[2023-02-28 07:24] VITALS: TEMP 96.8
[2023-02-28] MEDS ORDERED: PROPOFOL 10 MG/ML 20 ML VIAL IV ONE (07:26)
[2023-02-28] MEDS ORDERED: LIDOCAINE 2% INJ 20 MG/ML (2 ML VIAL) ONE (07:26)
--- NOTE | 2023-02-28 07:35 | P.PCN ---
Date of Procedure: 02/28/23 Procedure(s) Performed: BRIEF HISTORY: Patient is a 72-year-old, pleasant, 8 female with long-standing history of diabetes matters scheduled for an upper endoscopy as a part of evaluation of chronic nausea vomiting for the last few months duration. She was sedated since onset of the symptoms. She is scheduled for an upper endoscopy to evaluate further. PROCEDURE PERFORMED: Esophagogastroduodenoscopy with biopsy. PREOPERATIVE DIAGNOSIS: With nausea vomiting of 3 months duration and progressive weight loss of 30 pounds. IV sedation per anesthesia. PROCEDURE: After informed consent was obtained, the patient was brought into the endoscopy unit. IV sedation was administered by Anesthesia under continuous monitoring. Initially the Olympus GIF-140 video endoscope was inserted into the mouth. Esophagus intubated without any difficulty. It was gradually advanced into the stomach and duodenum and carefully examined. The bulb and the second part of the duodenum appeared normal. Abscesses were done from the duodenum to rule out celiac disease The scope at this time was withdrawn to the stomach, adequately insufflated with air, and upon careful examination, mucosa of the antrum, body, had mild diffuse gastritis and biopsies were done from this area. There was moderate amount of solid retained solid food in the stomach consistent with diabetic gastroparesis. The cardia and the fundus appeared normal. The scope was then withdrawn into the esophagus. The GE junction was located at 39 cm from the incisors. The esophagus appeared normal. There were no erosions or ulcerations seen and the patient tolerated the procedure well. IMPRESSION: 1. Retained food in the stomach suggestive of diabetic gastroparesis. 2. Mild diffuse gastritis. RECOMMENDATIONS: The findings of this examination were discussed with the patient less her family. She was advised to follow with the biopsy results. Increase omeprazole to 20 mg twice daily and recommend small frequent meals. She still remains symptomatic she'll be given a trial of prokinetic agent with Reglan as needed. She'll be seen in office in 3-4 weeks..
[2023-02-28 07:57] LABS: Glucose,Whole Blood 174 mg/dL (70-110)
[2023-02-28 08:13] VITALS: BP 116/62; PULSE 77; RESP 20
[2023-02-28] MEDS ORDERED: ONDANSETRON 4 MG/2 ML VIAL ONE (08:16)
[2023-02-28] MEDS ORDERED: ONDANSETRON 4 MG/2 ML VIAL IVP ONE (08:17)
== END 2023-02-28 08:47 ==
LOC: ORWHC2ENDO 05:51
PROVIDERS: ATTEND Internal Medicine Gastroenterology
DX: K29.50 Unspecified chronic gastritis without bleeding (principal); K31.89 Other diseases of stomach and duodenum; I25.2 Old myocardial infarction; I25.10 Atherosclerotic heart disease of native coronary artery without angina pectoris; Z95.5 Presence of coronary angioplasty implant and graft; I10 Essential (primary) hypertension; E78.5 Hyperlipidemia, unspecified; E11.51 Type 2 diabetes mellitus with diabetic peripheral angiopathy without gangrene; E11.41 Type 2 diabetes mellitus with diabetic mononeuropathy; I27.20 Pulmonary hypertension, unspecified; J44.9 Chronic obstructive pulmonary disease, unspecified; F03.90 Unspecified dementia, unspecified severity, without behavioral disturbance, psychotic disturbance, mood disturbance, and anxiety; Z79.02 Long term (current) use of antithrombotics/antiplatelets; Z79.1 Long term (current) use of non-steroidal anti-inflammatories (NSAID); Z79.85 Long-term (current) use of injectable non-insulin antidiabetic drugs; Z79.4 Long term (current) use of insulin; Z79.51 Long term (current) use of inhaled steroids; Z79.899 Other long term (current) drug therapy
CPT/HCPCS: 88305; 88342; 43239; J2405; J2704; J2001

== ENCOUNTER → 2023-09-20 | Outpatient (CLI) | payer MEDICARE ==
--- NOTE | 2023-09-20 13:30 | XR ---
EXAMINATION TYPE: XR chest 2V DATE OF EXAM: 09/20/2023 1:26 PM CLINICAL INDICATION:Female, 73 years old with history of R07.9 CHEST PAIN, UNSPECIFIED; COMPARISON: 12/29/2022 TECHNIQUE: XR chest 2V Frontal and lateral views of the chest. FINDINGS: Lungs/Pleura: There is no evidence of pleural effusion, focal consolidation, or pneumothorax. Pulmonary vascularity: Unremarkable. Heart/mediastinum: Cardiomediastinal silhouette is prominent in size. Atherosclerotic calcifications are seen in the aorta. Musculoskeletal: No acute osseous pathology. Midline sternotomy wires are noted. Other findings: None IMPRESSION: No acute cardiopulmonary disease/process.
== END | disposition home or self-care (01) ==
LOC: RADXRMAIN 13:01
PROVIDERS: ATTEND Family Medicine
DX: R07.9 Chest pain, unspecified (principal)
CPT/HCPCS: 71046

== ENCOUNTER 2023-11-02 03:37 | Inpatient (IN) | payer MEDICARE ==
--- NOTE | 2023-11-02 03:50 | ED ---
SOB HPI - General Chief Complaint: Shortness of Breath Stated Complaint: SOB Time Seen by Provider: 11/02/23 03:41 Source: patient, EMS Mode of arrival: EMS - History of Present Illness Initial Comments: 73-year-old female brought to the ER today by EMS for evaluation of shortness of breath. Patient was recently admitted to an outside hospital for dehydration she received IV fluids and was discharged home. Patient states that today she just feels like she cannot catch her breath. Patient denies any fevers or chills. She denies any chest pain. - Related Data Home Medications Medication Instructions Recorded Confirmed Atorvastatin [Lipitor] 80 mg PO HS 09/23/20 02/21/23 Aspirin EC [Ecotrin Low Dose] 81 mg PO DAILY 12/12/21 02/21/23 Clopidogrel Bisulfate [Plavix] 75 mg PO DAILY 12/12/21 02/21/23 Insulin Glargine,Hum.rec.anlog 46 unit SQ BID 12/12/21 02/21/23 [Lantus Solostar Pen] Albuterol Sulfate [Albuterol 2 puff INHALATION RT-Q4H PRN 06/07/22 02/21/23 Sulfate Hfa] Fluticasone/Umeclidin/Vilanter 1 puff INHALATION RT-DAILY 06/07/22 02/21/23 [Trelegy Ellipta 100-62.5-25] Albuterol Nebulized [Ventolin 2.5 mg INHALATION RT-TID 12/27/22 02/21/23 Nebulized] Semaglutide [Ozempic] 0.5 mg SQ MO 12/27/22 02/21/23 Valsartan [Diovan] 80 mg PO DAILY 12/27/22 02/21/23 Docusate [Colace] 100 mg PO DAILY 02/21/23 02/21/23 traMADol HCL 50 mg PO Q6H PRN 02/21/23 02/21/23 Previous Rx's Medication Instructions Recorded Furosemide [Lasix] 40 mg PO DAILY #30 tablet 06/19/22 Insulin Lispro [humaLOG Kwikpen] 15 units SQ AC-TID #0 06/19/22 Omeprazole [PriLOSEC] 20 mg PO AC-BRKFST #30 cap 12/29/22 Allergies Allergy/AdvReac Type Severity Reaction Status Date / Time codeine AdvReac Nausea & Verified 11/02/23 03:45 Vomiting Review of Systems ROS Statement: Those systems with pertinent positive or pertinent negative responses have been documented in the HPI. ROS Other: All systems not noted in ROS Statement are negative. 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, R caratid artery disease, valvular disease, pulmonary htn, bronchitis, home oxygen prn, poor vision/pt cannot recall reason, UTIs, rash/itching, WAS SEEN IN ER 12/2022 FOR N/V Last Myocardial Infarction Date:: 2014 History of Any Multi-Drug Resistant Organisms: ESBL Date of last positivie culture/infection: 04/15/21 MDRO Source:: ESBL URINE Past Surgical History: Cholecystectomy, Coronary Bypass/CABG, Heart Catheterization With Stent Additional Past Surgical History / Comment(s): PCI/stents in 2009 and 2014, 2016 CABG 3 vessel then sternal debridement for infection/removal of hardware, colonoscopy, bilateral cataract removals. Past Anesthesia/Blood Transfusion Reactions: No Reported Reaction Additional Past Anesthesia/Blood Transfusion Reaction / Comment(s): Claustrophobic Date of Last Stent Placement:: 2014 Past Psychological History: No Psychological Hx Reported Smoking Status: Former smoker Past Alcohol Use History: None Reported Past Drug Use History: None Reported - Past Family History Father Family Medical History: Coronary Artery Disease (CAD), Myocardial Infarction ([place]) Additional Family Medical History / Comment(s): STENT, OPEN HEART SURGERY Mother History Unknown: Yes Additional Family Medical History / Comment(s): DEPRESSION, mental illness General Exam General appearance: alert, in distress (Respiratory distress) Head exam: Present: atraumatic ENT exam: Present: normal exam, mucous membranes moist Respiratory exam: Present: rhonchi Cardiovascular Exam: Present: regular rate, normal rhythm GI/Abdominal exam: Absent: distended Rectal exam: Present: deferred Extremities exam: Present: pedal edema Neurological exam: Present: alert, oriented X3 Psychiatric exam: Present: anxious Skin exam: Present: warm, dry Course Vital Signs 11/02/23 11/02/23 03:39 04:58 Temperature 98.9 F Pulse Rate 85 Respiratory 30 H Rate Blood Pressure 168/83 O2 Sat by Pulse 99 Oximetry Fraction of 40 Inspired Oxygen (FIO2) Medical Decision Making - Medical Decision Making Was pt. sent in by a medical professional or institution (, [facility], [employer], urgent care, hospital, or [facility]...) When possible be specific @ -No Did you speak to anyone other than the patient for history (EMS, parent, family, police, friend...)? What history was obtained from this source @ -EMS Did you review nursing and triage notes (agree or disagree)? Why? @ -I reviewed and agree with nursing and triage notes Were old charts reviewed (outside hosp., previous admission, EMS record, old EKG, old radiological studies, urgent care reports/EKG's, [facility] records)? Report findings @ -No old charts were reviewed Differential Diagnosis (chest pain, altered mental status, abdominal pain women, abdominal pain men, vaginal bleeding, weakness, fever, dyspnea, syncope, headache, dizziness, GI bleed, back pain, seizure, CVA, palpatations, mental health)? @ -Not applicable EKG interpreted by me (3pts min.). @ -As above X-rays interpreted by me (1pt min.). @ -Chest x-ray with pulmonary edema CT interpreted by me (1pt min.). @ -None done U/S interpreted by me (1pt. min.). @ -None done What testing was considered but not performed or refused? (CT, X-rays, U/S, labs)? Why? @ -None What meds were considered but not given or refused? Why? @ -None Did you discuss the management of the patient with other professionals (professionals i.e. [facility], [employer], lab, RT, psych nurse, social work job titles, wireless sales consultant, teacher, code enforcement officer, pillowcase cutter)? Give summary @ -No Was smoking cessation discussed for >3mins.? @ -No Was critical care preformed (if so, how long)? @ -Yes, 30 minutes Were there social determinants of health that impacted care today? How? (Homelessness, low income, unemployed, alcoholism, drug addiction, transportation, low edu. Level, literacy, decrease access to med. care, [facility], rehab)? @ -No Was there de-escalation of care discussed even if they declined (Discuss DNR or withdrawal of care, Hospice)? DNR status @ -No What co-morbidities impacted this encounter? (DM, HTN, Smoking, COPD, CAD, Cancer, CVA, ARF, Chemo, Hep., AIDS, mental health diagnosis, sleep apnea, morbid obesity)? @ -Hypertension, CHF Was patient admitted / discharged? Hospital course, mention meds given and route, prescriptions, significant lab abnormalities, going to OR and other pertinent info. @ -Admit Patient was seen and evaluated immediately upon arrival to the emergency department. Elderly female with recent hospitalization for dehydration in which she received IV fluids. She is now presenting with difficulty breathing and lower extremity edema concerning for CHF. Labs were obtained chest x-ray was obtained. Patient's oxygenation improved with supplemental oxygen but she still had a significant increased work of breathing chest x-ray was concerning for fluid overload decision was made to place the patient on BiPAP which she tolerated well. Labs reveal a minimally elevated troponin likely demand ischemia secondary to the respiratory distress and CHF, elevated BNP. Will plan to admit the patient for CHF exacerbation requiring BiPAP support. Patient becoming agitated due to need to urinate, cannot use the bedpan, decision was made to place a catheter due to likely frequency of urination. Patient tolerated catheter well. Undiagnosed new problem with uncertain prognosis? @ -No Drug Therapy requiring intensive monitoring for toxicity (Heparin, Nitro, Insulin, Cardizem)? @ -No Were any procedures done? @ -No Diagnosis/symptom? @ -CHF Acute, or Chronic, or Acute on Chronic? @ -Acute Uncomplicated (without systemic symptoms) or Complicated (systemic symptoms)? @ -Complicated Side effects of treatment? @ -Yes, exacerbation due to IV fluid resuscitation during previous hospitalization Exacerbation, Progression, or Severe Exacerbation? @ -No Poses a threat to life or bodily function? How? (Chest pain, USA, [place], pneumonia, PE, COPD, DKA, ARF, appy, cholecystitis, CVA, Diverticulitis, Homicidal, Suicidal, threat to staff... and all critical care pts) @ -Yes - Lab Data Result diagrams: 11/02/23 05:05 11/02/23 03:45 Lab Results 03/08/24 03/08/24 03/08/24 Range/Units 03:45 03:45 03:45 WBC (3.8-10.6) k/uL RBC (3.80-5.40) m/uL Hgb (11.4-16.0) gm/dL Hct (34.0-46.0) % MCV (80.0-100.0) fL MCH (25.0-35.0) pg MCHC (31.0-37.0) g/dL RDW (11.5-15.5) % Plt Count (150-450) k/uL MPV Neutrophils % % Lymphocytes % % Monocytes % % Eosinophils % % Basophils % % Neutrophils # (1.3-7.7) k/uL Lymphocytes # (1.0-4.8) k/uL Monocytes # (0-1.0) k/uL Eosinophils # (0-0.7) k/uL Basophils # (0-0.2) k/uL PT (10.0-12.5) sec INR (<1.2) APTT (22.0-30.0) sec Sodium 138 (137-145) mmol/L Potassium 4.2 (3.5-5.1) mmol/L Chloride 108 H (98-107) mmol/L Carbon Dioxide 22 (22-30) mmol/L Anion Gap 8 mmol/L BUN 16 (7-17) mg/dL Creatinine 0.84 (0.52-1.04) mg/dL Est GFR (CKD-EPI)AfAm 80 (>60 ml/min/1.73 sqM) Est GFR (CKD-EPI)NonAf 69 (>60 ml/min/1.73 sqM) Glucose 110 H (74-99) mg/dL Plasma Lactic Acid Dennis 2.5 H* (0.7-2.0) mmol/L Calcium 8.2 L (8.4-10.2) mg/dL Magnesium 1.7 (1.6-2.3) mg/dL Total Bilirubin 1.1 (0.2-1.3) mg/dL AST 31 (14-36) U/L ALT 17 (4-34) U/L Alkaline Phosphatase 63 (38-126) U/L Troponin I 0.064 H* (0.000-0.034) ng/mL NT-Pro-B Natriuret Pep 3890 pg/mL Total Protein 6.3 (6.3-8.2) g/dL Albumin 3.2 L (3.5-5.0) g/dL 11/02/23 11/02/23 Range/Units 05:05 05:05 WBC 13.7 H (3.8-10.6) k/uL RBC 3.72 L (3.80-5.40) m/uL Hgb 11.6 (11.4-16.0) gm/dL Hct 34.3 (34.0-46.0) % MCV 92.3 (80.0-100.0) fL MCH 31.1 (25.0-35.0) pg MCHC 33.7 (31.0-37.0) g/dL RDW 13.0 (11.5-15.5) % Plt Count 242 (150-450) k/uL MPV 7.5 Neutrophils % 85 % Lymphocytes % 8 % Monocytes % 5 % Eosinophils % 1 % Basophils % 1 % Neutrophils # 11.6 H (1.3-7.7) k/uL Lymphocytes # 1.1 (1.0-4.8) k/uL Monocytes # 0.6 (0-1.0) k/uL Eosinophils # 0.1 (0-0.7) k/uL Basophils # 0.1 (0-0.2) k/uL PT 9.6 L (10.0-12.5) sec INR 0.8 (<1.2) APTT 23.3 (22.0-30.0) sec Sodium (137-145) mmol/L Potassium (3.5-5.1) mmol/L Chloride (98-107) mmol/L Carbon Dioxide (22-30) mmol/L Anion Gap mmol/L BUN (7-17) mg/dL Creatinine (0.52-1.04) mg/dL Est GFR (CKD-EPI)AfAm (>60 ml/min/1.73 sqM) Est GFR (CKD-EPI)NonAf (>60 ml/min/1.73 sqM) Glucose (74-99) mg/dL Plasma Lactic Acid Dennis (0.7-2.0) mmol/L Calcium (8.4-10.2) mg/dL Magnesium (1.6-2.3) mg/dL Total Bilirubin (0.2-1.3) mg/dL AST (14-36) U/L ALT (4-34) U/L Alkaline Phosphatase (38-126) U/L Troponin I (0.000-0.034) ng/mL NT-Pro-B Natriuret Pep pg/mL Total Protein (6.3-8.2) g/dL Albumin (3.5-5.0) g/dL - EKG Data -: EKG Interpreted by Me EKG Comments: EKG interpreted by me, EKG obtained due to complaint of shortness of breath EKG obtained at 4:16 AM, rate is 81 the rhythm was sinus with first-degree AV block, NJ is 278, QRS 138 QTc 435 there are no acute ST elevations or depressions there are Q waves in V3 V4 no obvious signs of infarction or arrhythmia. Disposition Clinical Impression: Heart failure, Hypoxic respiratory failure, BiPAP (biphasic positive airway pressure) dependence Disposition: ADMITTED IP TO THIS HOSP
[2023-11-02 04:16] LABS: Chloride 108 mmol/L (98-107)
[2023-11-02 04:18] LABS: ALT 17 U/L (4-34); African American GFR (CKD) 80 (>60 ml/min/1.73 sqM); Albumin 3.2 g/dL (3.5-5.0); Anion Gap 8 mmol/L; Blood Urea Nitrogen 16 mg/dL (7-17); Calcium 8.2 mg/dL (8.4-10.2); Carbon Dioxide 22 mmol/L (22-30); Glucose 110 mg/dL (74-99); Magnesium 1.7 mg/dL (1.6-2.3); Non-African American GFR(CKD) 69 (>60 ml/min/1.73 sqM); Sodium 138 mmol/L (137-145); Total Bilirubin 1.1 mg/dL (0.2-1.3); Total Protein 6.3 g/dL (6.3-8.2)
[2023-11-02 04:26] LABS: NT-Pro-B-Type Natriuretic Pept 3890 pg/mL
[2023-11-02 04:27] LABS: AST 31 U/L (14-36); Alkaline Phosphatase 63 U/L (38-126); Potassium 4.2 mmol/L (3.5-5.1)
[2023-11-02] MEDS: FUROSEMIDE 10 MG/ML 4 ML VIAL IV STA (04:51)
[2023-11-02 05:16] LABS: Basophils # (A) 0.1 k/uL (0-0.2); Basophils % (A) 1 %; Eosinophils # (A) 0.1 k/uL (0-0.7); Eosinophils % (A) 1 %; HCT 34.3 % (34.0-46.0); HGB 11.6 gm/dL (11.4-16.0); Lymphocytes # (A) 1.1 k/uL (1.0-4.8); Lymphocytes % (A) 8 %; MCH 31.1 pg (25.0-35.0); MCHC 33.7 g/dL (31.0-37.0); MCV 92.3 fL (80.0-100.0); Mean Platelet Volume 7.5; Monocytes # (A) 0.6 k/uL (0-1.0); Monocytes % (A) 5 %; Neutrophils # (A) 11.6 k/uL (1.3-7.7); Neutrophils % (A) 85 %; Platelet Count 242 k/uL (150-450); RBC 3.72 m/uL (3.80-5.40); WBC 13.7 k/uL (3.8-10.6)
[2023-11-02 05:33] LABS: INR 0.8 (<1.2); Partial Thromboplastin Time 23.3 sec (22.0-30.0); Prothrombin Time 9.6 sec (10.0-12.5)
[2023-11-02] MEDS: FUROSEMIDE 10 MG/ML 4 ML VIAL IV SCH ×2 (05:44→09:04)
--- NOTE | 2023-11-02 05:54 | XR ---
EXAM: XR Chest, 1 View CLINICAL HISTORY: ITS.REASON XR Reason: dyspnea TECHNIQUE: Frontal view of the chest. COMPARISON: 09/20/2023 FINDINGS: Lungs: Slightly hazy appearance of the lungs. Prominent and ill- defined bronchovascular markings. Pleural space: Subtle pleural thickening. No pneumothorax. Heart: See below. Mediastinum: Cardiomediastinal silhouette partially obscured. Nonspecific paratracheal soft tissues. Bones/joints: Changes of prior median sternotomy and CABG. Upper abdomen: Right upper quadrant cholecystectomy surgical clips. IMPRESSION: Probable increasing pulmonary edema and/or unusual pneumonia changes.
[2023-11-02] MEDS: SPIRONOLACTONE 25 MG TAB PO SCH (09:03)
[2023-11-02] MEDS: ASPIRIN 81 MG PO SCH (09:03)
[2023-11-02] MEDS: ACETAMINOPHEN TAB 325 MG TAB PO PRN (09:03)
--- NOTE | 2023-11-02 09:05 | P.HPIM ---
History of Present Illness This is a pleasant 73 years old female with past medical history of multiple medical problems including CVA/TIA, dementia, diabetes mellitus, hypertension, hyperlipidemia, coronary artery disease, heart failure, syncope, right carotid artery stenosis and pulmonary hypertension and UTI with ESBL bacteria. She presents because of dyspnea per records. Patient is documented to have 2 L of oxygen at home at baseline. Patient currently is on BiPAP and very sleepy and cannot provide information. It was obtained from medical records and staff at bedside Patient is also obese with decreased air entry on both sides. Later on patient workup and she told me she came because of dyspnea. However she denies chest pain. She has headache but no dizziness. No weakness in arms and legs and she can move them both symmetrically. No diarrhea or abdominal pain or vomiting. No urinary complaint. She told me she quit smoking about 3 to 4 years ago, History still limited by the patient condition. On admission patient was hypoxic and she was placed on BiPAP also she was tachypneic RR 30/min this morning patient spiked a fever of 101. Patient INR is 0.8 and labs show a leukocytosis of 13,000, basic metabolic panel and liver enzymes were unremarkable proBNP is evaded 3890. Troponin is elevated 0.06. Chest x-ray are reviewed showing bilateral fluffy infiltrates more on the lower and middle zone. Most likely suspicious for fluid overload but cannot exclude pneumonia per radiologist. EKG sinus rhythm at 81 first first-degree heart block with no significant ST-T changes Echocardiogram done on 12/2022 showing preserved ejection fraction 55 to 60% with mild to moderate mitral regurgitation Patient was started on IV Lasix 40 mg every 8 hours. Review of Systems Review of systems CONSTITUTIONAL: No fever, no malaise, no fatigue. HEENT: No recent visual problems or hearing problems. Denied any sore throat. CARDIOVASCULAR: No orthopnea, PND, no palpitations, no syncope. PULMONARY: No chest wall tenderness, no hemoptysis. GASTROINTESTINAL: No diarrhea, no nausea, no vomiting, no abdominal pain. Normoactive bowel sounds. NEUROLOGICAL: No headaches, no weakness, no numbness. HEMATOLOGICAL: Denies any bleeding or petechiae. GENITOURINARY: Denies any burning micturition, frequency, or urgency. MUSCULOSKELETAL/RHEUMATOLOGICAL: Denies any joint pain, swelling, or any muscle pain. ENDOCRINE: Denies any polyuria or polydipsia. 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, R caratid artery disease, valvular disease, pulmonary htn, bronchitis, home oxygen prn, poor vision/pt cannot recall reason, UTIs, rash/itching, WAS SEEN IN ER 12/2022 FOR N/V Last Myocardial Infarction Date:: 2014 History of Any Multi-Drug Resistant Organisms: ESBL Date of last positivie culture/infection: 04/15/21 MDRO Source:: ESBL URINE Past Surgical History: Cholecystectomy, Coronary Bypass/CABG, Heart Catheterization With Stent Additional Past Surgical History / Comment(s): PCI/stents in 2009 and 2014, 2016 CABG 3 vessel then sternal debridement for infection/removal of hardware, colonoscopy, bilateral cataract removals. Past Anesthesia/Blood Transfusion Reactions: No Reported Reaction Additional Past Anesthesia/Blood Transfusion Reaction / Comment(s): Claustrophobic Date of Last Stent Placement:: 2014 Past Psychological History: No Psychological Hx Reported Smoking Status: Former smoker Past Alcohol Use History: None Reported Past Drug Use History: None Reported - Past Family History Father Family Medical History: Coronary Artery Disease (CAD), Myocardial Infarction ([place]) Additional Family Medical History / Comment(s): STENT, OPEN HEART SURGERY Mother History Unknown: Yes Additional Family Medical History / Comment(s): DEPRESSION, mental illness Medications and Allergies Home Medications Medication Instructions Recorded Confirmed Type Atorvastatin [Lipitor] 80 mg PO HS 09/23/20 11/02/23 History Aspirin EC [Ecotrin Low Dose] 81 mg PO DAILY 12/12/21 11/02/23 History Clopidogrel Bisulfate [Plavix] 75 mg PO DAILY 12/12/21 11/02/23 History Furosemide [Lasix] 40 mg PO DAILY #30 tablet 06/19/22 11/02/23 Rx Insulin Lispro [humaLOG Kwikpen] 15 units SQ AC-TID #0 06/19/22 11/02/23 Rx Valsartan [Diovan] 80 mg PO DAILY 12/27/22 11/02/23 History traMADol HCL 50 mg PO BID PRN 02/21/23 11/02/23 History Metoprolol Succinate [Toprol XL] 50 mg PO DAILY 11/02/23 11/02/23 History Omeprazole [PriLOSEC] 20 mg PO BID 11/02/23 11/02/23 History Allergies Allergy/AdvReac Type Severity Reaction Status Date / Time codeine AdvReac Nausea & Verified 11/02/23 08:43 Vomiting Physical Exam Vitals: Vital Signs Temp Pulse Pulse Resp BP BP Pulse Ox 11/02/23 08:10 101 F H 62 34 H 119/47 99 11/02/23 07:56 100 11/02/23 07:55 11/02/23 06:21 69 38 H 145/58 100 11/02/23 04:58 11/02/23 03:39 98.9 F 85 30 H 168/83 99 FiO2 11/02/23 08:10 40 11/02/23 07:56 40 11/02/23 07:55 30 11/02/23 06:21 11/02/23 04:58 40 11/02/23 03:39 Intake and Output 11/01/23 11/02/23 11/02/23 22:59 06:59 14:59 Output Total 600 Balance -600 Output: Urine 600 Uretheral (Wall) 600 Other: Weight 80.286 kg -GENERAL: The patient is drowsy on BiPAP, she wakes up temporarily and momentarily tot verbal stimuli before go back to sleep again, not in any acute distress. Obese HEENT: Pupils are round and equally reacting to light. EOMI. No scleral icterus. No conjunctival pallor. Normocephalic, atraumatic. No pharyngeal erythema. No thyromegaly. CARDIOVASCULAR: S1 and S2 present. No murmurs, rubs, or gallops. -PULMONARY: Decreased breath sounds on both sides with crepitation. Mild wheezing with tachypnea ABDOMEN: Soft, nontender, nondistended, normoactive bowel sounds. No palpable organomegaly. MUSCULOSKELETAL: No joint swelling or deformity. EXTREMITIES: No cyanosis, clubbing, or pedal edema. NEUROLOGICAL: Gross neurological examination did not reveal any focal deficits. SKIN: No rashes. no petechiae. Results CBC & Chem 7: 11/02/23 05:05 03/08/24 03:45 Labs: Abnormal Lab Results - Last 24 Hours (Table) 11/02/23 11/02/23 11/02/23 Range/Units 03:45 03:45 03:45 WBC (3.8-10.6) k/uL RBC (3.80-5.40) m/uL Neutrophils # (1.3-7.7) k/uL PT (10.0-12.5) sec Chloride 108 H (98-107) mmol/L Glucose 110 H (74-99) mg/dL Plasma Lactic Acid Dennis 2.5 H* (0.7-2.0) mmol/L Calcium 8.2 L (8.4-10.2) mg/dL Troponin I 0.064 H* (0.000-0.034) ng/mL Albumin 3.2 L (3.5-5.0) g/dL 11/02/23 11/02/23 11/02/23 Range/Units 05:05 05:05 06:58 WBC 13.7 H (3.8-10.6) k/uL RBC 3.72 L (3.80-5.40) m/uL Neutrophils # 11.6 H (1.3-7.7) k/uL PT 9.6 L (10.0-12.5) sec Chloride (98-107) mmol/L Glucose (74-99) mg/dL Plasma Lactic Acid Dennis 2.4 H* (0.7-2.0) mmol/L Calcium (8.4-10.2) mg/dL Troponin I (0.000-0.034) ng/mL Albumin (3.5-5.0) g/dL Assessment and Plan Assessment: Acute on chronic CHF exacerbation with preserved ejection fraction Acute hypoxic respiratory failure Bilateral pulmonary pneumonia Acute COPD exacerbation Elevated troponin, could be secondary to above. Cannot rule out coronary artery disease for now. Diabetes mellitus Hypertension Hyperlipidemia History of osteoarthritis Hypothyroidism History of CVA and TIA Dementia History of coronary artery disease History of pulmonary hypertension Plan: Continue with IV Lasix and lower frequency to every 12 hour Start ceftriaxone and Zithromax Check procalcitonin blood culture and sputum culture Start IV Solu-Medrol 40 mg twice daily Cardiology and pulmonary consults Continue with aspirin 81 mg per saw grinder Labs and medication were reviewed.. Continue same treatment. Continue with symptomatic treatment. Resume home medication. Monitor lytes and vitals. DVT and GI prophylaxis. Further recommendations depends on the clinical course of the patient DVT prophylaxis: Subcutaneous heparin GI Prophylaxis: Pepcid PT/OT: Pending Prognosis is guarded
[2023-11-02] MEDS: METOPROLOL SUCCINATE (ER) 25 MG TAB.ER.24H PO SCH (09:10)
[2023-11-02] MEDS: methylPREDNISolone SOD SUCCI 40 MG/ML 1 ML VIAL IV SCH (09:10)
[2023-11-02] MEDS: AZITHROMYCIN 500 MG in SODIUM CHLORIDE 0.9% 250 ML IVPB SCH (10:43)
--- NOTE | 2023-11-02 11:02 | P.CRDCN ---
History of Present Illness History of present illness: HISTORY OF PRESENT ILLNESS: This is a 73-year-old female with a past medical history significant for coronary artery disease with previous CABG, hypertension, hyperlipidemia, diabetes, congestive heart failure. We have been asked to see the patient in consultation for congestive heart failure. Patient examined at the bedside in the emergency room. Patient is currently lethargic and on a BiPAP. Patient initially presented to the hospital with a chief complaint of shortness of breat h. Patient was found to be in acute heart failure and was started on IV diuretics. She denies any chest pain or pressure. Vital signs are stable. DIAGNOSTICS: - EKG reveals sinus mechanism with IVCD. - Chest xray probable increasing pulmonary edema and/or unusual pneumonia changes - Laboratory data: WBC 13.7. Platelet count 242. Hemoglobin 11.6. Sodium 138. Potassium 4.2. BUN 16. Creatinine 0.84. Lactic acid 1.5. Troponin 0.064. 0.097. proBNP 3890 - Current home cardiac medications include aspirin 81 mg daily, valsartan 80 mg daily, metoprolol succinate 50 mg daily, Lasix 40 mg daily, Lipitor 80 mg at night, and Plavix 75 mg daily. - Most recent echocardiogram obtained in 12/2022 revealed ejection fraction 55 to 60%, mild mitral stenosis, mild to moderate mitral regurgitation, and mild tricuspid regurgitation -Patient underwent three-vessel CABG in October 2016 with WELCH to LAD, SVG to posterior descending coronary artery, and SVG to obtuse marginal artery REVIEW OF SYSTEMS: At the time of my exam: CONSTITUTIONAL: Denies fever or chills. HEENT: Denies blurred vision, vision changes, or eye pain. Denies hemoptysis CARDIOVASCULAR: Denies chest pain. Denies orthopnea. Denies PND. Denies palpitations RESPIRATORY: Denies shortness of breath. GASTROINTESTINAL: Denies abdominal pain. Denies nausea or vomiting. HEMATOLOGIC: Denies bleeding disorders. GENITOURINARY: Denies any blood in urine. SKIN: Denies pruitis. Denies rash. PHYSICAL EXAM: VITAL SIGNS: Reviewed. GENERAL: Well-developed in no acute distress. HEENT: Head is normocephalic. Pupils are equal, round. Sclerae anicteric. Mucous membranes of the mouth are moist. Neck supple. Positive JVD LUNGS: Respirations even and unlabored. Lungs with bilateral crackles. Currently on BiPAP HEART: Regular rate and rhythm. S1 and S2 heard. ABDOMEN: Soft. Nondistended. Nontender. EXTREMITIES: Normal range of motion. No clubbing or cyanosis. Peripheral pulses intact. No lower extremity edema NEUROLOGIC: Lethargic ASSESSMENT: Shortness of breath Acute hypoxic respiratory failure, requiring BiPAP Acute on chronic heart failure with preserved EF Coronary artery disease with previous three-vessel CABG, 2017, WELCH to LAD, SVG to posterior descending coronary artery, and SVG to obtuse marginal artery Valvular heart disease: mild mitral stenosis, mild to moderate mitral regurgitation, and mild tricuspid regurgitation Hypertension Hyperlipidemia Diabetes PLAN: Obtain limited echo to assess LV function Resume home cardiac medications Add Aldactone 12.5 mg daily Begin IV Lasix 40 mg every 12 hours Daily weights, accurate intake and output, and monitoring of kidney function Further recommendations pending patient course Nurse practitioner note has been reviewed by physician. Signing provider agrees with the documented findings, assessment, and plan of care documented by SASH STICKER as a scribe. 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, R caratid artery disease, valvular disease, pulmonary htn, bronchitis, home oxygen prn, poor vision/pt cannot recall reason, UTIs, rash/itching, WAS SEEN IN ER 12/2022 FOR N/V Last Myocardial Infarction Date:: 2014 History of Any Multi-Drug Resistant Organisms: ESBL Date of last positivie culture/infection: 04/15/21 MDRO Source:: ESBL URINE Past Surgical History: Cholecystectomy, Coronary Bypass/CABG, Heart Catheterization With Stent Additional Past Surgical History / Comment(s): PCI/stents in 2009 and 2014, 2017 CABG 3 vessel then sternal debridement for infection/removal of hardware, colonoscopy, bilateral cataract removals. Past Anesthesia/Blood Transfusion Reactions: No Reported Reaction Additional Past Anesthesia/Blood Transfusion Reaction / Comment(s): Claustrophobic Date of Last Stent Placement:: 2014 Past Psychological History: No Psychological Hx Reported Smoking Status: Former smoker Past Alcohol Use History: None Reported Past Drug Use History: None Reported - Past Family History Father Family Medical History: Coronary Artery Disease (CAD), Myocardial Infarction ([place]) Additional Family Medical History / Comment(s): STENT, OPEN HEART SURGERY Mother History Unknown: Yes Additional Family Medical History / Comment(s): DEPRESSION, mental illness Medications and Allergies Home Medications Medication Instructions Recorded Confirmed Type Atorvastatin [Lipitor] 80 mg PO HS 09/23/20 11/02/23 History Aspirin EC [Ecotrin Low Dose] 81 mg PO DAILY 12/12/21 11/02/23 History Clopidogrel Bisulfate [Plavix] 75 mg PO DAILY 12/12/21 11/02/23 History Furosemide [Lasix] 40 mg PO DAILY #30 tablet 06/19/22 11/02/23 Rx Insulin Lispro [humaLOG Kwikpen] 15 units SQ AC-TID #0 06/19/22 11/02/23 Rx Valsartan [Diovan] 80 mg PO DAILY 12/27/22 11/02/23 History traMADol HCL 50 mg PO BID PRN 02/21/23 11/02/23 History Metoprolol Succinate [Toprol XL] 50 mg PO DAILY 11/02/23 11/02/23 History Omeprazole [PriLOSEC] 20 mg PO BID 11/02/23 11/02/23 History Allergies Allergy/AdvReac Type Severity Reaction Status Date / Time codeine AdvReac Nausea & Verified 11/02/23 08:43 Vomiting Physical Exam Vitals: Vital Signs Temp Pulse Resp BP Pulse Ox FiO2 11/02/23 06:21 69 38 H 145/58 100 11/02/23 04:58 40 11/02/23 03:39 98.9 F 85 30 H 168/83 99 Intake and Output 11/01/23 11/02/23 11/02/23 22:59 06:59 14:59 Output Total 600 Balance -600 Output: Urine 600 Uretheral (Wall) 600 Other: Weight 80.286 kg Results 11/02/23 05:05 11/02/23 03:45 Cardiac Enzymes 11/02/23 11/02/23 Range/Units 03:45 03:45 AST 31 (14-36) U/L Troponin I 0.064 H* (0.000-0.034) ng/mL Coagulation 11/02/23 Range/Units 05:05 PT 9.6 L (10.0-12.5) sec APTT 23.3 (22.0-30.0) sec CBC 11/02/23 Range/Units 05:05 WBC 13.7 H (3.8-10.6) k/uL RBC 3.72 L (3.80-5.40) m/uL Hgb 11.6 (11.4-16.0) gm/dL Hct 34.3 (34.0-46.0) % Plt Count 242 (150-450) k/uL Comprehensive Metabolic Panel 11/02/23 Range/Units 03:45 Sodium 138 (137-145) mmol/L Potassium 4.2 (3.5-5.1) mmol/L Chloride 108 H (98-107) mmol/L Carbon Dioxide 22 (22-30) mmol/L BUN 16 (7-17) mg/dL Creatinine 0.84 (0.52-1.04) mg/dL Glucose 110 H (74-99) mg/dL Calcium 8.2 L (8.4-10.2) mg/dL AST 31 (14-36) U/L ALT 17 (4-34) U/L Alkaline Phosphatase 63 (38-126) U/L Total Protein 6.3 (6.3-8.2) g/dL Albumin 3.2 L (3.5-5.0) g/dL Current Medications Generic Name Dose Route Start Last Admin Trade Name Freq PRN Reason Stop Dose Admin Furosemide 40 mg 11/02/23 05:30 11/02/23 05:44 Furosemide 10 Mg/Ml 4 Ml Vial IV Not Given Q8H KAREN Intake and Output 11/01/23 11/02/23 11/02/23 22:59 06:59 14:59 Output Total 600 Balance -600 Output: Urine 600 Uretheral (Wall) 600 Other: Weight 80.286 kg 11/02/23 05:05 11/02/23 03:45
[2023-11-02] MEDS ORDERED: IPRATROPIUM-ALBUTEROL 3 ML NEB INHALATION PRN (14:04)
--- NOTE | 2023-11-02 14:04 | P.CNPUL ---
History of Present Illness Consult date: 11/02/23 Requesting physician: Bernard King Reason for consult: dyspnea Chief complaint: Shortness of breath History of present illness: This is a 73-year-old female patient with a known history of CVA/TIA, dementia, diabetes mellitus, hypertension, hyperlipidemia, coronary artery disease, diastolic congestive heart failure. She had presented to the emergency room early this morning with complaints of increasing shortness of breath, cough and congestion. Chest x-ray reveals increasing pulmonary edema or unusual pneumonia type changes. White count 13.7. Hemoglobin 11.6. Platelets 242. INR 0.8. Sodium 138. Potassium 4.2. Bicarb 22. BUN 16. Creatinine 0.84. Glucose 298. Troponin 0.097. proBNP 3890. Procalcitonin 0.13. She is seen today in consultation in the emergency department. She is currently laying on a stretcher. Awake and alert. She is requiring BiPAP support at 10/5 and 30% FiO2. She did have a Tmax of 101 degree axillary. Tachypneic in the 30s. Blood pressure stable. Review of Systems REVIEW OF SYSTEMS: CONSTITUTIONAL: Denies any recent significant weight loss or weight gain. EYES: Denies change in vision. EARS, NOSE, MOUTH, THROAT: Denies headaches, denies sore throat. CARDIOVASCULAR: Denies chest pain, palpitations or syncopal episodes. RESPIRATORY: Positive for shortness of breath, cough, congestion no hemoptysis. GASTROINTESTINAL: Denies change in appetite, denies abdominal pain GENITOURINARY: Denies hematuria, denies infections. MUSKULOSKELETAL: Denies pain, denies swelling. INTEGUMENTARY: Denies rash, denies eczema. NEUROLOGICAL: Denies recent memory loss, no recent seizure activity. PSYCHIATRIC: Denies anxiety, denies depression. HEMATOLOGIC/LYMPHATIC: Denies anemia, denies enlarged lymph nodes. 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, R caratid artery disease, valvular disease, pulmonary htn, bronchitis, home oxygen prn, poor vision/pt cannot recall reason, UTIs, rash/itching, WAS SEEN IN ER 12/2022 FOR N/V Last Myocardial Infarction Date:: 2014 History of Any Multi-Drug Resistant Organisms: ESBL Date of last positivie culture/infection: 04/15/21 MDRO Source:: ESBL URINE Past Surgical History: Cholecystectomy, Coronary Bypass/CABG, Heart Cath eterization With Stent Additional Past Surgical History / Comment(s): PCI/stents in 2009 and 2014, 2017 CABG 3 vessel then sternal debridement for infection/removal of hardware, colonoscopy, bilateral cataract removals. Past Anesthesia/Blood Transfusion Reactions: No Reported Reaction Additional Past Anesthesia/Blood Transfusion Reaction / Comment(s): Claustrophobic Date of Last Stent Placement:: 2014 Past Psychological History: No Psychological Hx Reported Smoking Status: Former smoker Past Alcohol Use History: None Reported Past Drug Use History: None Reported - Past Family History Father Family Medical History: Coronary Artery Disease (CAD), Myocardial Infarction ([place]) Additional Family Medical History / Comment(s): STENT, OPEN HEART SURGERY Mother History Unknown: Yes Additional Family Medical History / Comment(s): DEPRESSION, mental illness Medications and Allergies Home Medications Medication Instructions Recorded Confirmed Type Atorvastatin [Lipitor] 80 mg PO HS 09/23/20 11/02/23 History Aspirin EC [Ecotrin Low Dose] 81 mg PO DAILY 12/12/21 11/02/23 History Clopidogrel Bisulfate [Plavix] 75 mg PO DAILY 12/12/21 11/02/23 History Furosemide [Lasix] 40 mg PO DAILY #30 tablet 06/19/22 11/02/23 Rx Insulin Lispro [humaLOG Kwikpen] 15 units SQ AC-TID #0 06/19/22 11/02/23 Rx Valsartan [Diovan] 80 mg PO DAILY 12/27/22 11/02/23 History traMADol HCL 50 mg PO BID PRN 02/21/23 11/02/23 History Metoprolol Succinate [Toprol XL] 50 mg PO DAILY 11/02/23 11/02/23 History Omeprazole [PriLOSEC] 20 mg PO BID 11/02/23 11/02/23 History Allergies Allergy/AdvReac Type Severity Reaction Status Date / Time codeine AdvReac Nausea & Verified 11/02/23 08:43 Vomiting Physical Exam Vitals: Vital Signs Temp Pulse Pulse Resp BP BP Pulse Ox 11/02/23 12:01 97.1 F L 64 34 H 160/63 99 11/02/23 11:41 11/02/23 08:10 101 F H 62 34 H 119/47 99 11/02/23 07:56 100 11/02/23 07:55 11/02/23 06:21 69 38 H 145/58 100 11/02/23 04:58 11/02/23 03:39 98.9 F 85 30 H 168/83 99 FiO2 11/02/23 12:01 30 11/02/23 11:41 30 11/02/23 08:10 40 11/02/23 07:56 40 11/02/23 07:55 30 11/02/23 06:21 11/02/23 04:58 40 11/02/23 03:39 Intake and Output 11/01/23 11/02/23 11/02/23 22:59 06:59 14:59 Output Total 600 Balance -600 Output: Urine 600 Uretheral (Wall) 600 Other: Voiding Method Indwelling Catheter Weight 80.286 kg GENERAL EXAM: Alert, 73-year-old female, on BiPAP, fairly comfortable in no apparent distress. HEAD: Normocephalic. EYES: Normal reaction of pupils, equal size. NOSE: Clear with pink turbinates. THROAT: No erythema or exudates. NECK: No masses, no JVD. CHEST: No chest wall deformity. LUNGS: Equal air entry with scattered rhonchi, crackles in the posterior bases . CVS: S1 and S2 normal with an audible murmur, regular rhythm. ABDOMEN: No hepatosplenomegaly, normal bowel sounds, no guarding or rigidity. SPINE: No scoliosis or deformity SKIN: No rashes CENTRAL NERVOUS SYSTEM: No focal deficits, tone is normal in all 4 extremities. EXTREMITIES: There is no peripheral edema. No clubbing, no cyanosis. Pe ripheral pulses are intact. Results - Laboratory Findings CBC and BMP: 11/02/23 05:05 11/02/23 03:45 PT/INR, D-dimer PT 9.6 sec (10.0-12.5) L 11/02/23 05:05 INR 0.8 (<1.2) 11/02/23 05:05 Abnormal lab findings: Abnormal Labs 11/02/23 11/02/23 11/02/23 03:45 03:45 03:45 WBC RBC Neutrophils # PT Chloride 108 H Glucose 110 H Hemoglobin A1c Plasma Lactic Acid Dennis 2.5 H* Calcium 8.2 L Troponin I 0.064 H* Albumin 3.2 L Procalcitonin 11/02/23 11/02/23 11/02/23 05:05 05:05 06:58 WBC 13.7 H RBC 3.72 L Neutrophils # 11.6 H PT 9.6 L Chloride Glucose Hemoglobin A1c Plasma Lactic Acid Dennis 2.4 H* Calcium Troponin I Albumin Procalcitonin 11/02/23 11/02/23 11/02/23 06:58 06:58 07:59 WBC RBC Neutrophils # PT Chloride Glucose Hemoglobin A1c 12.0 H Plasma Lactic Acid Dennis Calcium Troponin I 0.097 H* Albumin Procalcitonin 0.13 H - Diagnostic Findings Chest x-ray: image reviewed Assessment and Plan Assessment: Acute hypoxemic respiratory failure secondary to a combination of diastolic congestive heart failure and possible underlying pneumonia Troponin leak secondary to above Acute exacerbation of chronic obstructive pulmonary disease Severe oxygen dependent COPD with an FEV1 value of 54% of predicted History of previous COVID-19 infection Hyperlipidemia Hypertension Diabetes mellitus, type II Coronary artery disease with previous coronary bypass grafting and previous stenting Previous history of ESBL producing UTI urinary tract infection Obesity History of CVA/TIA Plan: The patient was seen and evaluated Chest x-ray, labs and medications reviewed Continue BiPAP support for now Increase IPAP to 12 and EPAP to 6 Titrate the FiO2 as tolerated Continue ceftriaxone and azithromycin Add Symbicort and DuoNeb ventilations Continue Solu-Medrol Received IV diuretics We will continue to follow and make further recommendations based on her clinical status I have personally seen and examined the patient, performed the documentation and the assessment and plan as written. Number of minutes spent on the visit: 20.
[2023-11-02] MEDS: IPRATROPIUM-ALBUTEROL 3 ML NEB INHALATION SCH (17:31)
--- NOTE | 2023-11-02 17:44 | CA ---
Transthoracic Echo Report Name: Nancy Shah Age: 73 Gender: F : 1950 Exam Date: 11/02/2023 15:17 Exam Location: [facility] Ht (in): 63 Wt (lb): 177 Ordering Physician: Anel Correa Attending/Referring Phys: [id number], Madeline Lining Ironer Kiya Spicer RDCS Procedure CPT: Indications: EF, assess wall motion Cardiac Hx: Technical Quality: Contrast 1: Total Dose (mL): Contrast 2: Total Dose (mL): MEASUREMENTS (Male / Female) Normal Values 2D ECHO LV Diastolic Diameter PLAX 4.7 cm 4.2 - 5.9 / 3.9 - 5.3 cm LV Systolic Diameter PLAX 3.5 cm IVS Diastolic Thickness 1.2 cm 0.6 - 1.0 / 0.6 - 0.9 cm LVPW Diastolic Thickness 0.9 cm 0.6 - 1.0 / 0.6 - 0.9 cm LV Relative Wall Thickness 0.4 FINDINGS Left Ventricle Left ventricular ejection fraction is estimated at -45 %. Right Ventricle Right Atrium Left Atrium Mitral Valve Aortic Valve Tricuspid Valve Pulmonic Valve Pericardium Aorta CONCLUSIONS . Mild LV systolic dysfunction with an ejection fraction of 45% Previewed by: Dr. Jake Flannery MD (Electronically Signed) Final Date: 02 November 2023 17:43
[2023-11-02 18:44] LABS: Chol/HDL Ratio 2.15 Ratio; LDL Cholesterol,Calculated 31.7 mg/dL (0.0-131.0); VLDL Calculation 14.32 mg/dL (5.00-40.00)
[2023-11-02] MEDS: SYMBICORT 160-4.5 MCG INHALER INHALATION SCH (19:34)
[2023-11-02] MEDS ORDERED: ATORVASTATIN 40 MG TAB PO SCH (21:00)
[2023-11-02] MEDS: ATORVASTATIN 80 MG TAB PO SCH (21:14)
[2023-11-03] MEDS: METOPROLOL SUCCINATE (ER) 50 MG TAB.ER.24H PO SCH (08:51)
[2023-11-03] MEDS: CLOPIDOGREL 75 MG TAB PO SCH (08:51)
[2023-11-03] MEDS: VALSARTAN 80 MG TAB PO SCH (08:51)
[2023-11-03] MEDS: ASPIRIN 81 MG PO SCH (08:51)
[2023-11-03 09:54] LABS: Appearance,Urine Clear (Clear); Bilirubin,Urine Negative (Negative); Blood,Urine Negative (Negative); Color,Urine Colorless; Glucose,Urine (UA) 4+ (Negative); Ketones,Urine Negative (Negative); Leukocyte Esterase,Urine Negative (Negative); Nitrite,Urine Negative (Negative); Protein,Urine Trace (Negative); Specific Gravity,Urine 1.017 (1.001-1.035); Urobilinogen,Urine <2.0 mg/dL (<2.0)
--- NOTE | 2023-11-03 10:23 | P.PN ---
Subjective This is a pleasant 73 years old female with past medical history of multiple medical problems including CVA/TIA, dementia, diabetes mellitus, hypertension, hyperlipidemia, coronary artery disease, heart failure, syncope, right carotid artery stenosis and pulmonary hypertension and UTI with ESBL bacteria. She presents because of dyspnea per records. Patient is documented to have 2 L of oxygen at home at baseline. Patient currently is on BiPAP and very sleepy and cannot provide information. It was obtained from medical records and staff at bedside Patient is also obese with decreased air entry on both sides. Later on patient workup and she told me she came because of dyspnea. However she denies chest pain. She has headache but no dizziness. No weakness in arms and legs and she can move them both symmetrically. No diarrhea or abdominal pain or vomiting. No urinary complaint. She told me she quit smoking about 3 to 4 years ago, History still limited by the patient condition. On admission patient was hypoxic and she was placed on BiPAP also she was tachypneic RR 30/min this morning patient spiked a fever of 101. Patient INR is 0.8 and labs show a leukocytosis of 13,000, basic metabolic panel and liver enzymes were unremarkable proBNP is evaded 3890. Troponin is elevated 0.06. Chest x-ray are reviewed showing bilateral fluffy infiltrates more on the lower and middle zone. Most likely suspicious for fluid overload but cannot exclude pneumonia per radiologist. EKG sinus rhythm at 81 first first-degree heart block with no significant ST-T changes Echocardiogram done on 12/2022 showing preserved ejection fraction 55 to 60% with mild to moderate mitral regurgitation Patient was started on IV Lasix 40 mg every 8 hours. 11/03/2023 Patient awake and alert She is still significantly hypoxic and tachypneic although clark improvement, breathing rate is 22-16 and she is on 4 L oxygen currently but she had to use the BiPAP overnight No chest pain. No other new complaint Her hemoglobin A1c is significantly elevated at 12%, patient informed and she will needs better glucose control and she agrees. Protuss Calcitonin mildly elevated 0.1-3. Urine analysis was checked and it was negative for infection Echocardiogram ordered and reviewed by myself, ejection fraction is mildly low at 45% with no significant valvular heart disease. Patient is treated with several medication including Zithromax and ceftriaxone as patient has fever and leukocytosis on admission. Also she is on IV Lasix 40 mg twice daily for heart failure and Solu-Medrol 40 mg twice daily for her COPD while she is continued on aspirin and Plavix which are her home doses. Patient today has a lot of questions which were all answered to her satisfaction and her illness is explained to her extensively and she verbalized understanding and acceptance with the management plan Review of systems CONSTITUTIONAL: No fever, no malaise, no fatigue. HEENT: No recent visual problems or hearing problems. Denied any sore thr HEMATOLOGICAL: Denies any bleeding or petechiae. GENITOURINARY: Denies any burning micturition, frequency, or urgency. MUSCULOSKELETAL/RHEUMATOLOGICAL: Denies any joint pain, swelling, or any muscle pain. ENDOCRINE: Denies any polyuria or polydipsia. Active Medications Generic Name Dose Route Start Last Admin Trade Name Freq PRN Reason Stop Dose Admin Acetaminophen 650 mg 11/02/23 08:48 11/02/23 21:54 Acetaminophen Tab 325 Mg Tab PO 650 mg Q6HR PRN Administration Fever and/ or Pain Albuterol/Ipratropium 3 ml 11/02/23 16:00 11/03/23 08:32 Ipratropium-Albuterol 3 Ml Neb INHALATION 3 ml RT-QID [facility] Administration Albuterol/Ipratropium 3 ml 11/02/23 14:04 Ipratropium-Albuterol 3 Ml Neb INHALATION RT-Q2H PRN Shortness Of Breath Or Wheezing Aspirin 81 mg 11/03/23 09:00 11/03/23 08:51 Aspirin 81 Mg PO 81 mg DAILY [facility] Administration Atorvastatin Calcium 80 mg 11/02/23 21:00 11/02/23 21:14 Atorvastatin 80 Mg Tab PO 80 mg HS [facility] Administration Azithromycin 500 mg 11/04/23 09:00 Azithromycin 500 Mg Tab PO 11/04/23 09:01 DAILY [facility] Budesonide/Formoterol Fumarate 2 puff 11/02/23 20:00 11/03/23 08:32 Symbicort 160-4.5 Mcg Inhaler INHALATION 2 puff RT-BID [facility] Administration Clopidogrel Bisulfate 75 mg 11/03/23 09:00 11/03/23 08:51 Clopidogrel 75 Mg Tab PO 75 mg DAILY [facility] Administration Furosemide 40 mg 11/02/23 09:00 11/03/23 08:50 Furosemide 10 Mg/Ml 4 Ml Vial IV 40 mg Q12HR [facility] Administration Ceftriaxone Sodium 2 gm/ 50 mls @ 100 mls/hr 11/02/23 09:00 11/03/23 08:50 Sodium Chloride IVPB 100 mls/hr Q24HR [facility] Administration Protocol Azithromycin 500 mg/ Sodium 250 mls @ 250 mls/hr 11/02/23 09:30 11/03/23 09:2 5 Chloride IVPB 11/03/23 11:00 250 mls/hr DAILY [facility] Administration Protocol Methylprednisolone Sodium Succinate 40 mg 11/02/23 09:30 11/03/23 08:49 Methylprednisolone Sod Succi 40 Mg/Ml 1 Ml Vial IV 40 mg Q12HR [facility] Administration Metoprolol Succinate 50 mg 11/03/23 09:00 11/03/23 08:51 Metoprolol Succinate (Er) 50 Mg Tab.Er.24h PO 50 mg DAILY [facility] Administration Spironolactone 12.5 mg 11/02/23 09:00 11/03/23 08:50 Spironolactone 25 Mg Tab PO 12.5 mg DAILY [facility] Administration Valsartan 80 mg 11/03/23 09:00 11/03/23 08:51 Valsartan 80 Mg Tab PO 80 mg DAILY [facility] Administration Objective - Vital Signs Vital signs: Vital Signs Temp 98 F 11/03/23 04:00 Pulse 62 11/03/23 08:47 Resp 16 11/03/23 08:00 BP 138/50 11/03/23 08:00 Pulse Ox 100 11/03/23 08:00 FiO2 30 11/03/23 00:00 Intake & Output 11/02/23 11/03/23 11/03/23 18:59 06:59 18:59 Intake Total 300 333 118 Output Total 850 725 Balance -550 333 -607 Weight 80.286 kg Intake: Intake, IV Titration 300 Amount Azithromycin 500 mg In 250 Sodium Chloride 0.9% 250 ml @ 250 mls/hr IVPB DAILY [facility] Rx#:[id number] cefTRIAXone 2 gm In 50 Sodium Chloride 0.9% 50 ml @ 100 mls/hr IVPB Q24HR [facility] Rx#:[id number] Oral 333 118 Output: Urine 850 725 Other: Voiding Method Indwelling Catheter Indwelling Catheter - Exam GENERAL: The patient is alert and oriented x3, not in any acute distress. Well developed, well nourished. HEENT: Pupils are round and equally reacting to light. EOMI. No scleral icterus. No conjunctival pallor. Normocephalic, atraumatic. No pharyngeal erythema. No thyromegaly. CARDIOVASCULAR: S1 and S2 present. No murmurs, rubs, or gallops. -PULMONARY: Chest is clear to auscultation, no wheezing , n bilateral basal crackles. ABDOMEN: Soft, nontender, nondistended, normoactive bowel sounds. No palpable organomegaly. MUSCULOSKELETAL: No joint swelling or deformity. -EXTREMITIES: No cyanosis, clubbing,. Bilateral pitting leg edema. NEUROLOGICAL: Gross neurological examination did not reveal any focal deficits. SKIN: No rashes. no petechiae. - Labs CBC & Chem 7: 11/02/23 05:05 11/02/23 03:45 Labs: Abnormal Lab Results - Last 24 Hours (Table) 11/02/23 11/02/23 11/03/23 Range/Units 06:58 07:59 07:10 Hemoglobin A1c 12.0 H (<=6.0) % Procalcitonin 0.13 H (0.02-0.09) ng/mL Urine Protein Trace H (Negative) Urine Glucose (UA) 4+ H (Negative) Assessment and Plan Assessment: Acute on chronic CHF exacerbation with preserved ejection fraction Acute hypoxic respiratory failure Bilateral pulmonary pneumonia Acute COPD exacerbation Elevated troponin, could be secondary to above. Cannot rule out coronary artery disease for now. Diabetes mellitus Hypertension Hyperlipidemia History of osteoarthritis Hypothyroidism History of CVA and TIA Dementia History of coronary artery disease History of pulmonary hypertension Plan: Continue with IV Lasix and lower frequency to every 12 hour Start ceftriaxone and Zithromax Check blood culture and sputum culture Start IV Solu-Medrol 40 mg twice daily Cardiology and pulmonary consults Continue with aspirin 81 mg per clinical research administrator Echocardiogram reviewed Labs and medication were reviewed.. Continue same treatment. Continue with symptomatic treatment. Resume home medication. Monitor lytes and vitals. DVT and GI prophylaxis. Further recommendations depends on the clinical course of the patient DVT prophylaxis: Subcutaneous heparin GI Prophylaxis: Pepcid PT/OT: Pending Prognosis is guarded
[2023-11-03 11:18] LABS: African American GFR (CKD) 48 (>60 ml/min/1.73 sqM); Anion Gap 10 mmol/L; Blood Urea Nitrogen 36 mg/dL (7-17); Calcium 7.8 mg/dL (8.4-10.2); Carbon Dioxide 21 mmol/L (22-30); Chloride 101 mmol/L (98-107); Non-African American GFR(CKD) 42 (>60 ml/min/1.73 sqM); Potassium 4.5 mmol/L (3.5-5.1); Sodium 132 mmol/L (137-145)
[2023-11-03 11:30] LABS: Glucose,Whole Blood >600 mg/dL (70-110)
[2023-11-03 11:30] LABS: Glucose,Whole Blood >600 mg/dL (70-110)
[2023-11-03 11:33] LABS: Glucose,Whole Blood >600 mg/dL (70-110)
[2023-11-03 11:34] LABS: Glucose 710 mg/dL (74-99)
[2023-11-03] MEDS ORDERED: DEXTROSE 50% SYRINGE 50 ML IVP PRN ×2 (12:30)
[2023-11-03] MEDS: INSULIN REGULAR 100 UNIT in SODIUM CHLORIDE 0.9% 100 ML IV SCH ×2 (13:16→15:33)
[2023-11-03 13:19] VITALS: BMI 31.3
--- NOTE | 2023-11-03 14:14 | P.PN ---
Subjective Progress Note Date: 11/03/23 This is a 73-year-old female patient with a known history of CVA/TIA, dementia, diabetes mellitus, hypertension, hyperlipidemia, coronary artery disease, diastolic congestive heart failure. She had presented to the emergency room early this morning with complaints of increasing shortness of breath, cough and congestion. Chest x-ray reveals increasing pulmonary edema or unusual pneumonia type changes. White count 13.7. Hemoglobin 11.6. Platelets 242. INR 0.8. Sodium 138. Potassium 4.2. Bicarb 22. BUN 16. Creatinine 0.84. Glucose 298. Troponin 0.097. proBNP 3890. Procalcitonin 0.13. She is seen today in consultation in the emergency department. She is currently laying on a stretcher. Awake and alert. She is requiring BiPAP support at 10/5 and 30% FiO2. She did have a Tmax of 101 degree axillary. Tachypneic in the 30s. Blood pressure stable. The patient is seen today November 03, 2023 in follow-up on the selective care unit. She is currently resting comfortably in bed. Awake and alert in no acute distress. Feeling better today compared to yesterday. She is maintaining O2 saturations in the 90s on room air. She has been afebrile. Hemodynamically stable. Echocardiogram revealed mildly impaired left ventricular systolic function with ejection fraction of 45%. Sodium 132. Potassium 4.5. Bicarb 21. BUN 36. Creatinine 1.28. Glucose 710. Urinalysis with 4+ glucose. Procalcitonin 0.13. She is continued on Lasix 40 mg IV every 12 hours. Continued on bronchodilators and steroids. Antibiotics in the form of ceftriaxone and azithromycin. Initiated on an insulin drip. Objective - Vital Signs Vital signs: Vital Signs Temp 98 F 11/03/23 04:00 Pulse 71 11/03/23 12:00 Resp 16 11/03/23 12:00 BP 169/72 11/03/23 12:00 Pulse Ox 97 11/03/23 12:00 FiO2 30 11/03/23 00:00 Intake & Output 11/02/23 11/03/23 11/03/23 18:59 06:59 18:59 Intake Total 300 333 240.867 Output Total 850 1425 Balance -550 333 -1184.133 Weight 80.286 kg 80.286 kg Intake: Intake, IV Titration 300 4.867 Amount Azithromycin 500 mg In 250 Sodium Chloride 0.9% 250 ml @ 250 mls/hr IVPB DAILY [facility] Rx#:[id number] Insulin Regular 100 unit 4.867 In Sodium Chloride 0.9% 100 ml @ Titrate IV .Q0M [facility] Rx#:[id number] cefTRIAXone 2 gm In 50 Sodium Chloride 0.9% 50 ml @ 100 mls/hr IVPB Q24HR [facility] Rx#:[id number] Oral 333 236 Output: Urine 850 1425 Other: Voiding Method Indwelling Catheter Indwelling Catheter Indwelling Catheter # Bowel Movements 1 - Exam GENERAL EXAM: Alert, 73-year-old female, on room air, comfortable in no apparent distress. HEAD: Normocephalic. EYES: Normal reaction of pupils, equal size. NOSE: Clear with pink turbinates. THROAT: No erythema or exudates. NECK: No masses, no JVD. CHEST: No chest wall deformity. LUNGS: Equal air entry with scattered rhonchi, crackles in the posterior bases . CVS: S1 and S2 normal with an audible murmur, regular rhythm. ABDOMEN: No hepatosplenomegaly, normal bowel sounds, no guarding or rigidity. SPINE: No scoliosis or deformity SKIN: No rashes CENTRAL NERVOUS SYSTEM: No focal deficits, tone is normal in all 4 extremities. EXTREMITIES: There is no peripheral edema. No clubbing, no cyanosis. Peripheral pulses are intact. - Labs CBC & Chem 7: 11/02/23 05:05 11/03/23 12:55 Labs: Abnormal Lab Results - Last 24 Hours (Table) 11/03/23 11/03/23 11/03/23 Range/Units 07:10 09:20 11:26 Sodium 132 L (137-145) mmol/L Carbon Dioxide 21 L (22-30) mmol/L BUN 36 H (7-17) mg/dL Creatinine 1.28 H (0.52-1.04) mg/dL Glucose 710 H* (74-99) mg/dL POC Glucose (mg/dL) >600 H (70-110) mg/dL Calcium 7.8 L (8.4-10.2) mg/dL Urine Protein Trace H (Negative) Urine Glucose (UA) 4+ H (Negative) 03/09/24 03/09/24 03/09/24 Range/Units 11:28 11:31 12:55 Sodium (137-145) mmol/L Carbon Dioxide (22-30) mmol/L BUN (7-17) mg/dL Creatinine (0.52-1.04) mg/dL Glucose 806 H* (74-99) mg/dL POC Glucose (mg/dL) >600 H >600 H (70-110) mg/dL Calcium (8.4-10.2) mg/dL Urine Protein (Negative) Urine Glucose (UA) (Negative) Assessment and Plan Assessment: Acute hypoxemic respiratory failure secondary to a combination of diastolic congestive heart failure and possible underlying pneumonia Troponin leak secondary to above Acute exacerbation of chronic obstructive pulmonary disease Severe oxygen dependent COPD with an FEV1 value of 54% of predicted History of previous COVID-19 infection Hyperlipidemia Hypertension Diabetes mellitus, type II, with steroid-induced hyperglycemia Coronary artery disease with previous coronary bypass grafting and previous stenting Previous history of ESBL producing UTI urinary tract infection Obesity History of CVA/TIA Plan: The patient was seen and evaluated Echocardiogram, labs and medications reviewed Improved and on room air Discontinue steroids Being initiated on an insulin drip Continue ceftriaxone and azithromycin Continue Symbicort and DuoNeb ventilations Continue IV diuretics Increase activity as tolerated We will continue to follow I have personally seen and examined the patient, performed the documentation and the assessment and plan as written. Number of minutes spent on the visit: 10.
[2023-11-03 15:01] LABS: Glucose,Whole Blood >600 mg/dL (70-110)
[2023-11-03] MEDS: FUROSEMIDE 10 MG/ML 4 ML VIAL IV STA (15:26)
[2023-11-03] MEDS: INSULIN DETEMIR (LEVEMIR) 100 UNIT/ML SYR SQ SCH (15:28)
[2023-11-03 16:05] LABS: Glucose,Whole Blood >600 mg/dL (70-110)
[2023-11-03 17:05] LABS: Glucose,Whole Blood >600 mg/dL (70-110)
--- NOTE | 2023-11-03 17:33 | P.PN ---
Subjective Progress Note Date: 11/03/23 This is a 73-year-old female with a past medical history significant for coronary artery disease with previous CABG, hypertension, hyperlipidemia, diabetes, congestive heart failure. We have been asked to see the patient in consultation for congestive heart failure. Patient examined at the bedside in the emergency room. Patient is currently lethargic and on a BiPAP. Patient initially presented to the hospital with a chief complaint of shortness of breath. Patient was found to be in acute heart failure and was started on IV diuretics. She denies any chest pain or pressure. Vital signs are stable. DIAGNOSTICS: - EKG reveals sinus mechanism with IVCD. - Chest xray probable increasing pulmonary edema and/or unusual pneumonia changes - Laboratory data: WBC 13.7. Platelet count 242. Hemoglobin 11.6. Sodium 138. Potassium 4.2. BUN 16. Creatinine 0.84. Lactic acid 1.5. Troponin 0.064. 0 .097. proBNP 3890 - Current home cardiac medications include aspirin 81 mg daily, valsartan 80 mg daily, metoprolol succinate 50 mg daily, Lasix 40 mg daily, Lipitor 80 mg at night, and Plavix 75 mg daily. - Most recent echocardiogram obtained in 12/2022 revealed ejection fraction 55 to 60%, mild mitral stenosis, mild to moderate mitral regurgitation, and mild tricuspid regurgitation -Patient underwent three-vessel CABG in October 2016 with WELCH to LAD, SVG to posterior descending coronary artery, and SVG to obtuse marginal artery Progress note 11/03/2023 It was noted that patient has been hyperglycemic with blood sugars in 700s, has developed MONALISA and has been placed on IV insulin drip. However patient denies any chest pain chest pressure. Her fluid overload is better as compared to yesterday. PHYSICAL EXAM: VITAL SIGNS: Reviewed. GENERAL: Well-developed in no acute distress. HEENT: Head is normocephalic. Pupils are equal, round. Sclerae anicteric. Mucous membranes of the mouth are moist. Neck supple. Positive JVD LUNGS: Respirations even and unlabored. Lungs with bilateral crackles. Currently on BiPAP HEART: Regular rate and rhythm. S1 and S2 heard. ABDOMEN: Soft. Nondistended. Nontender. EXTREMITIES: Normal range of motion. No clubbing or cyanosis. Peripheral pulses intact. No lower extremity edema NEUROLOGIC: Lethargic ASSESSMENT: Shortness of breath Acute hypoxic respiratory failure, requiring BiPAP Acute on chronic heart failure with preserved EF Coronary artery disease with previous three-vessel CABG, 2017, WELCH to LAD, SVG to posterior descending coronary artery, and SVG to obtuse marginal artery Valvular heart disease: mild mitral stenosis, mild to moderate mitral regurgitation, and mild tricuspid regurgitation Hypertension Hyperlipidemia Diabetes PLAN: Echocardiogram showed an EF of 45%. Continue Aldactone 12.5 mg daily, IV Lasix 40 mg every 12 hours Continue metoprolol would benefit from addition of Farxiga Entresto once her kidney function im proves and prior to discharge. Patient starts developing acidosis and concerns of HHS DKA develops, may consider reducing Lasix. Objective - Vital Signs Vital signs: Vital Signs Temp 98 F 11/03/23 04:00 Pulse 68 11/03/23 16:00 Resp 16 11/03/23 15:37 BP 162/60 11/03/23 15:37 Pulse Ox 100 11/03/23 15:37 FiO2 30 11/03/23 00:00 Intake & Output 11/02/23 11/03/23 11/03/23 18:59 06:59 18:59 Intake Total 300 333 254.634 Output Total 850 2250 Balance -550 333 -1995.366 Weight 80.286 kg 80.286 kg Intake: Intake, IV Titration 300 18.634 Amount Azithromycin 500 mg In 250 Sodium Chloride 0.9% 250 ml @ 250 mls/hr IVPB DAILY [facility] Rx#:[id number] Insulin Regular 100 unit 18.067 In Sodium Chloride 0.9% 100 ml @ Titrate IV .Q0M [facility] Rx#:[id number] Insulin Regular 100 unit 0.567 In Sodium Chloride 0.9% 100 ml @ Titrate IV .Q0M [facility] Rx#:[id number] cefTRIAXone 2 gm In 50 Sodium Chloride 0.9% 50 ml @ 100 mls/hr IVPB Q24HR [facility] Rx#:[id number] Oral 333 236 Output: Urine 850 2250 Other: Voiding Method Indwelling Catheter Indwelling Catheter Indwelling Catheter # Bowel Movements 1 - Labs CBC & Chem 7: 11/02/23 05:05 11/03/23 16:40 Labs: Abnormal Lab Results - Last 24 Hours (Table) 11/03/23 11/03/23 11/03/23 Range/Units 07:10 09:20 11:26 Sodium 132 L (137-145) mmol/L Carbon Dioxide 21 L (22-30) mmol/L BUN 36 H (7-17) mg/dL Creatinine 1.28 H (0.52-1.04) mg/dL Glucose 710 H* (74-99) mg/dL POC Glucose (mg/dL) >600 H (70-110) mg/dL Calcium 7.8 L (8.4-10.2) mg/dL Urine Protein Trace H (Negative) Urine Glucose (UA) 4+ H (Negative) 11/03/23 11/03/23 11/03/23 Range/Units 11:28 11:31 12:55 Sodium (137-145) mmol/L Carbon Dioxide (22-30) mmol/L BUN (7-17) mg/dL Creatinine (0.52-1.04) mg/dL Glucose 806 H* (74-99) mg/dL POC Glucose (mg/dL) >600 H >600 H (70-110) mg/dL Calcium (8.4-10.2) mg/dL Urine Protein (Negative) Urine Glucose (UA) (Negative) 11/03/23 11/03/23 11/03/23 Range/Units 14:59 15:11 16:04 Sodium (137-145) mmol/L Carbon Dioxide (22-30) mmol/L BUN (7-17) mg/dL Creatinine (0.52-1.04) mg/dL Glucose 771 H* (74-99) mg/dL POC Glucose (mg/dL) >600 H >600 H (70-110) mg/dL Calcium (8.4-10.2) mg/dL Urine Protein (Negative) Urine Glucose (UA) (Negative) 11/03/23 11/03/23 Range/Units 16:40 17:03 Sodium (137-145) mmol/L Carbon Dioxide (22-30) mmol/L BUN (7-17) mg/dL Creatinine (0.52-1.04) mg/dL Glucose 510 H* (74-99) mg/dL POC Glucose (mg/dL) >600 H (70-110) mg/dL Calcium (8.4-10.2) mg/dL Urine Protein (Negative) Urine Glucose (UA) (Negative) Microbiology - Last 24 Hours (Table) 11/02/23 09:03 Blood Culture - Preliminary Blood
[2023-11-03 18:04] LABS: Glucose,Whole Blood 530 mg/dL (70-110)
[2023-11-03 19:01] LABS: Glucose,Whole Blood 424 mg/dL (70-110)
[2023-11-03 20:00] LABS: Glucose,Whole Blood 278 mg/dL (70-110)
[2023-11-03] MEDS: LINAGLIPTIN 5 MG TABLET PO SCH (20:38)
[2023-11-03 21:00] LABS: Glucose,Whole Blood 210 mg/dL (70-110)
[2023-11-03] MEDS: INSULIN DETEMIR (LEVEMIR) 100 UNIT/ML SYR SQ STA (21:41)
[2023-11-03 22:04] LABS: Glucose,Whole Blood 143 mg/dL (70-110)
[2023-11-03 23:01] LABS: Glucose,Whole Blood 136 mg/dL (70-110)
[2023-11-04 00:11] LABS: Glucose,Whole Blood 124 mg/dL (70-110)
[2023-11-04 00:59] LABS: Glucose,Whole Blood 147 mg/dL (70-110)
[2023-11-04 03:00] LABS: Glucose,Whole Blood 190 mg/dL (70-110)
[2023-11-04 04:19] LABS: Glucose,Whole Blood 196 mg/dL (70-110)
[2023-11-04 05:09] LABS: Glucose,Whole Blood 173 mg/dL (70-110)
[2023-11-04 05:55] LABS: Glucose,Whole Blood 138 mg/dL (70-110)
[2023-11-04] MEDS: INSULIN DETEMIR (LEVEMIR) 100 UNIT/ML SYR SQ SCH (07:04)
[2023-11-04 07:18] LABS: Glucose,Whole Blood 110 mg/dL (70-110)
[2023-11-04 08:03] LABS: Glucose,Whole Blood 167 mg/dL (70-110)
[2023-11-04] MEDS ORDERED: Acetaminophen-Codeine 300-30mg TAB PO PRN (08:22)
[2023-11-04] MEDS: AZITHROMYCIN 500 MG TAB PO SCH (08:33)
[2023-11-04 08:54] LABS: Glucose,Whole Blood 219 mg/dL (70-110)
[2023-11-04 10:02] LABS: African American GFR (CKD) 48 (>60 ml/min/1.73 sqM); Anion Gap 7 mmol/L; Blood Urea Nitrogen 39 mg/dL (7-17); Calcium 8.3 mg/dL (8.4-10.2); Carbon Dioxide 25 mmol/L (22-30); Chloride 105 mmol/L (98-107); Glucose 206 mg/dL (74-99); Non-African American GFR(CKD) 41 (>60 ml/min/1.73 sqM); Potassium 3.9 mmol/L (3.5-5.1); Sodium 137 mmol/L (137-145)
[2023-11-04 10:03] LABS: Glucose,Whole Blood 219 mg/dL (70-110)
[2023-11-04 11:05] LABS: Glucose,Whole Blood 238 mg/dL (70-110)
--- NOTE | 2023-11-04 11:46 | P.PN ---
Subjective This is a pleasant 73 years old female with past medical history of multiple medical problems including CVA/TIA, dementia, diabetes mellitus, hypertension, hyperlipidemia, coronary artery disease, heart failure, syncope, right carotid artery stenosis and pulmonary hypertension and UTI with ESBL bacteria. She presents because of dyspnea per records. Patient is documented to have 2 L of oxygen at home at baseline. Patient currently is on BiPAP and very sleepy and cannot provide information. It was obtained from medical records and staff at bedside Patient is also obese with decreased air entry on both sides. Later on patient workup and she told me she came because of dyspnea. However she denies chest pain. She has headache but no dizziness. No weakness in arms and legs and she can move them both symmetrically. No diarrhea or abdominal pain or vomiting. No urinary complaint. She told me she quit smoking about 3 to 4 years ago, History still limited by the patient condition. On admission patient was hypoxic and she was placed on BiPAP also she was tachypneic RR 30/min this morning patient spiked a fever of 101. Patient INR is 0.8 and labs show a leukocytosis of 13,000, basic metabolic panel and liver enzymes were unremarkable proBNP is evaded 3890. Troponin is elevated 0.06. Chest x-ray are reviewed showing bilateral fluffy infiltrates more on the lower and middle zone. Most likely suspicious for fluid overload but cannot exclude pneumonia per radiologist. EKG sinus rhythm at 81 first first-degree heart block with no significant ST-T changes Echocardiogram done on 12/2022 showing preserved ejection fraction 55 to 60% with mild to moderate mitral regurgitation Patient was started on IV Lasix 40 mg every 8 hours. 11/03/2023 Patient awake and alert She is still significantly hypoxic and tachypneic although clark improvement, breathing rate is 22-16 and she is on 4 L oxygen currently but she had to use the BiPAP overnight No chest pain. No other new complaint Her hemoglobin A1c is significantly elevated at 12%, patient informed and she will needs better glucose control and she agrees. Protuss Calcitonin mildly elevated 0.1-3. Urine analysis was checked and it was negative for infection Echocardiogram ordered and reviewed by myself, ejection fraction is mildly low at 45% with no significant valvular heart disease. Patient is treated with several medication including Zithromax and ceftriaxone as patient has fever and leukocytosis on admission. Also she is on IV Lasix 40 mg twice daily for heart failure and Solu-Medrol 40 mg twice daily for her COPD while she is continued on aspirin and Plavix which are her home doses. Patient today has a lot of questions which were all answered to her satisfaction and her illness is explained to her extensively and she verbalized understanding and acceptance with the management plan 11/04/2023 Patient breathing is still somewhat labored with slight improvement, she is on 4 L oxygen which is similar to yesterday. No chest pain but she looks very tired lethargic On admission she was placed on IV Solu-Medrol, yesterday her sugar went up to 700 and we have to place her on insulin drip per protocol with extra doses of Lasix. Sugar To be monitored and addressed overnight and currently more stable. IV Solu-Medrol was discontinued today. We started her last night on Levemir, we adjusted the dose to 25 units daily today. Continue with insulin sliding scale and we added linagliptin 5 mg daily. Her creatinine is 1.2 today. Hemoglobin A1c 12%. Ejection fraction mildly low at 45% Patient currently covered with Zithromax, ceftriaxone Lasix 40 mg daily. IV S cali-Medrol. Also she is on aspirin and Plavix. Case was discussed with multiple staff members Review of systems CONSTITUTIONAL: No fever, no malaise, no fatigue. HEENT: No recent visual problems or hearing problems. Denied any sore thr HEMATOLOGICAL: Denies any bleeding or petechiae. GENITOURINARY: Denies any burning micturition, frequency, or urgency. MUSCULOSKELETAL/RHEUMATOLOGICAL: Denies any joint pain, swelling, or any muscle pain. ENDOCRINE: Denies any polyuria or polydipsia. Active Medications Generic Name Dose Route Start Last Admin Trade Name Freq PRN Reason Stop Dose Admin Acetaminophen 650 mg 11/02/23 08:48 11/02/23 21:54 Acetaminophen Tab 325 Mg Tab PO 650 mg Q6HR PRN Administration Fever and/ or Pain Albuterol/Ipratropium 3 ml 11/02/23 16:00 11/03/23 08:32 Ipratropium-Albuterol 3 Ml Neb INHALATION 3 ml RT-QID KAREN Administration Albuterol/Ipratropium 3 ml 11/02/23 14:04 Ipratropium-Albuterol 3 Ml Neb INHALATION RT-Q2H PRN Shortness Of Breath Or Wheezing Aspirin 81 mg 11/03/23 09:00 11/03/23 08:51 Aspirin 81 Mg PO 81 mg DAILY KAREN Administration Atorvastatin Calcium 80 mg 11/02/23 21:00 11/02/23 21:14 Atorvastatin 80 Mg Tab PO 80 mg HS KAREN Administration Azithromycin 500 mg 11/04/23 09:00 Azithromycin 500 Mg Tab PO 11/04/23 09:01 DAILY KAREN Budesonide/Formoterol Fumarate 2 puff 11/02/23 20:00 11/03/23 08:32 Symbicort 160-4.5 Mcg Inhaler INHALATION 2 puff RT-BID KAREN Administration Clopidogrel Bisulfate 75 mg 11/03/23 09:00 11/03/23 08:51 Clopidogrel 75 Mg Tab PO 75 mg DAILY KAREN Administration Furosemide 40 mg 11/02/23 09:00 11/03/23 08:50 Furosemide 10 Mg/Ml 4 Ml Vial IV 40 mg Q12HR KAREN Administration Ceftriaxone Sodium 2 gm/ 50 mls @ 100 mls/hr 11/02/23 09:00 11/03/23 08:50 Sodium Chloride IVPB 100 mls/hr Q24HR KAREN Administration Protocol Azithromycin 500 mg/ Sodium 250 mls @ 250 mls/hr 11/02/23 09:30 11/03/23 09:25 Chloride IVPB 11/03/23 11:00 250 mls/hr DAILY KAREN Administration Protocol Methylprednisolone Sodium Succinate 40 mg 11/02/23 09:30 11/03/23 08:49 Methylprednisolone Sod Succi 40 Mg/Ml 1 Ml Vial IV 40 mg Q12HR KAREN Administration Metoprolol Succinate 50 mg 11/03/23 09:00 11/03/23 08:51 Metoprolol Succinate (Er) 50 Mg Tab.Er.24h PO 50 mg DAILY KAREN Administration Spironolactone 12.5 mg 11/02/23 09:00 11/03/23 08:50 Spironolactone 25 Mg Tab PO 12.5 mg DAILY KAREN Administration Valsartan 80 mg 11/03/23 09:00 11/03/23 08:51 Valsartan 80 Mg Tab PO 80 mg DAILY KAREN Administration Objective - Vital Signs Vital signs: Vital Signs Temp 98 F 11/04/23 04:00 Pulse 68 11/04/23 09:23 Resp 20 11/04/23 04:00 BP 138/65 11/04/23 04:00 Pulse Ox 100 03/10/24 04:00 FiO2 30 11/03/23 00:00 Intake & Output 11/03/23 11/04/23 11/04/23 17:59 06:59 18:59 Intake Total Output Total 500 Balance -500 Weight Intake: Intake, IV Titration Amount Insulin Regular 100 unit In Sodium Chloride 0.9% 100 ml @ Titrate IV .Q0M KAREN Rx#:[id number] Insulin Regular 100 unit In Sodium Chloride 0.9% 100 ml @ Titrate IV .Q0M KAREN Rx#:[id number] Oral Output: Urine 500 Other: Voiding Method # Bowel Movements - Exam GENERAL: The patient is alert and oriented x3, not in any acute distress. Well developed, well nourished. HEENT: Pupils are round and equally reacting to light. EOMI. No scleral icterus. No conjunctival pallor. Normocephalic, atraumatic. No pharyngeal erythema. No thyromegaly. CARDIOVASCULAR: S1 and S2 present. No murmurs, rubs, or gallops. -PULMONARY: Chest is clear to auscultation, no wheezing , n bilateral basal crackles. ABDOMEN: Soft, nontender, nondistended, normoactive bowel sounds. No palpable organomegaly. MUSCULOSKELETAL: No joint swelling or deformity. -EXTREMITIES: No cyanosis, clubbing,. Bilateral pitting leg edema. NEUROLOGICAL: Gross neurological examination did not reveal any focal deficits. SKIN: No rashes. no petechiae. - Labs CBC & Chem 7: 11/02/23 05:05 11/04/23 08:56 Labs: Abnormal Lab Results - Last 24 Hours (Table) 11/03/23 11/03/23 11/03/23 Range/Units 07:10 09:20 11:26 Sodium 132 L (137-145) mmol/L Carbon Dioxide 21 L (22-30) mmol/L BUN 36 H (7-17) mg/dL Creatinine 1.28 H (0.52-1.04) mg/dL Glucose 710 H* (74-99) mg/dL POC Glucose (mg/dL) >600 H (70-110) mg/dL Hemoglobin A1c (<=6.0) % Calcium 7.8 L (8.4-10.2) mg/dL Urine Protein Trace H (Negative) Urine Glucose (UA) 4+ H (Negative) 11/03/23 11/03/23 11/03/23 Range/Units 11:28 11:31 12:55 Sodium (137-145) mmol/L Carbon Dioxide (22-30) mmol/L BUN (7-17) mg/dL Creatinine (0.52-1.04) mg/dL Glucose 806 H* (74-99) mg/dL POC Glucose (mg/dL) >600 H >600 H (70-110) mg/dL Hemoglobin A1c (<=6.0) % Calcium (8.4-10.2) mg/dL Urine Protein (Negative) Urine Glucose (UA) (Negative) 11/03/23 11/03/23 11/03/23 Range/Units 12:55 14:59 15:11 Sodium (137-145) mmol/L Carbon Dioxide (22-30) mmol/L BUN (7-17) mg/dL Creatinine (0.52-1.04) mg/dL Glucose 771 H* (74-99) mg/dL POC Glucose (mg/dL) >600 H (70-110) mg/dL Hemoglobin A1c 11.7 H (<=6.0) % Calcium (8.4-10.2) mg/dL Urine Protein (Negative) Urine Glucose (UA) (Negative) 11/03/23 11/03/23 11/03/23 Range/Units 16:04 16:40 17:03 Sodium (137-145) mmol/L Carbon Dioxide (22-30) mmol/L BUN (7-17) mg/dL Creatinine (0.52-1.04) mg/dL Glucose 510 H* (74-99) mg/dL POC Glucose (mg/dL) >600 H >600 H (70-110) mg/dL Hemoglobin A1c (<=6.0) % Calcium (8.4-10.2) mg/dL Urine Protein (Negative) Urine Glucose (UA) (Negative) 11/03/23 11/03/23 11/03/23 Range/Units 18:02 18:59 19:56 Sodium (137-145) mmol/L Carbon Dioxide (22-30) mmol/L BUN (7-17) mg/dL Creatinine (0.52-1.04) mg/dL Glucose (74-99) mg/dL POC Glucose (mg/dL) 530 H 424 H 278 H (70-110) mg/dL Hemoglobin A1c (<=6.0) % Calcium (8.4-10.2) mg/dL Urine Protein (Negative) Urine Glucose (UA) (Negative) 11/03/23 11/03/23 11/03/23 Range/Units 20:58 22:03 22:59 Sodium (137-145) mmol/L Carbon Dioxide (22-30) mmol/L BUN (7-17) mg/dL Creatinine (0.52-1.04) mg/dL Glucose (74-99) mg/dL POC Glucose (mg/dL) 210 H 143 H 136 H (70-110) mg/dL Hemoglobin A1c (<=6.0) % Calcium (8.4-10.2) mg/dL Urine Protein (Negative) Urine Glucose (UA) (Negative) 11/04/23 11/04/23 11/04/23 Range/Units 00:08 00:55 01:58 Sodium (137-145) mmol/L Carbon Dioxide (22-30) mmol/L BUN (7-17) mg/dL Creatinine (0.52-1.04) mg/dL Glucose (74-99) mg/dL POC Glucose (mg/dL) 124 H 147 H 190 H (70-110) mg/dL Hemoglobin A1c (<=6.0) % Calcium (8.4-10.2) mg/dL Urine Protein (Negative) Urine Glucose (UA) (Negative) 11/04/23 11/04/23 11/04/23 Range/Units 04:18 05:02 05:53 Sodium (137-145) mmol/L Carbon Dioxide (22-30) mmol/L BUN (7-17) mg/dL Creatinine (0.52-1.04) mg/dL Glucose (74-99) mg/dL POC Glucose (mg/dL) 196 H 173 H 138 H (70-110) mg/dL Hemoglobin A1c (<=6.0) % Calcium (8.4-10.2) mg/dL Urine Protein (Negative) Urine Glucose (UA) (Negative) 11/04/23 11/04/23 11/04/23 Range/Units 08:02 08:52 08:56 Sodium (137-145) mmol/L Carbon Dioxide (22-30) mmol/L BUN 39 H (7-17) mg/dL Creatinine 1.29 H (0.52-1.04) mg/dL Glucose 206 H (74-99) mg/dL POC Glucose (mg/dL) 167 H 219 H (70-110) mg/dL Hemoglobin A1c (<=6.0) % Calcium 8.3 L (8.4-10.2) mg/dL Urine Protein (Negative) Urine Glucose (UA) (Negative) 11/04/23 Range/Units 10:01 Sodium (137-145) mmol/L Carbon Dioxide (22-30) mmol/L BUN (7-17) mg/dL Creatinine (0.52-1.04) mg/dL Glucose (74-99) mg/dL POC Glucose (mg/dL) 219 H (70-110) mg/dL Hemoglobin A1c (<=6.0) % Calcium (8.4-10.2) mg/dL Urine Protein (Negative) Urine Glucose (UA) (Negative) Microbiology - Last 24 Hours (Table) 11/02/23 09:03 Blood Culture - Preliminary Blood Assessment and Plan Assessment: Acute on chronic CHF exacerbation with preserved ejection fraction Acute hypoxic respiratory failure Bilateral pulmonary pneumonia Acute COPD exacerbation Elevated troponin, could be secondary to above. Cannot rule out coronary artery disease for now. Diabetes mellitus, with hyperglycemia Hypertension Hyperlipidemia History of osteoarthritis Hypothyroidism History of CVA and TIA Dementia History of coronary artery disease History of pulmonary hypertension Plan: Start Levemir 25 units, linagliptin 5 mg and insulin sliding scale with close monitoring of glucose Continue with IV Lasix and lower frequency to every 12 hour Start ceftriaxone and Zithromax Check blood culture and sputum culture IV Solu-Medrol 40 mg twice daily was discontinued Cardiology and pulmonary consults Continue with aspirin 81 mg per contract mail carrier Labs and medication were reviewed.. Continue same treatment. Continue with symptomatic treatment. Resume home medication. Monitor lytes and vitals. DVT and GI prophylaxis. Further recommendations depends on the clinical course of the patient DVT prophylaxis: Subcutaneous heparin GI Prophylaxis: Pepcid PT/OT: Pending Prognosis is guarded
[2023-11-04] MEDS ORDERED: DEXTROSE 50% SYRINGE 50 ML IVP PRN ×2 (12:24)
[2023-11-04] MEDS: INSULIN ASPART (NovoLOG) 100 UNIT/ML VIAL SQ SCH (12:50)
--- NOTE | 2023-11-04 13:34 | P.PN ---
Subjective Progress Note Date: 11/04/23 This is a 73-year-old female patient with a known history of CVA/TIA, dementia, diabetes mellitus, hypertension, hyperlipidemia, coronary artery disease, diastolic congestive heart failure. She had presented to the emergency room early this morning with complaints of increasing shortness of breath, cough and congestion. Chest x-ray reveals increasing pulmonary edema or unusual pneumonia type changes. White count 13.7. Hemoglobin 11.6. Platelets 242. INR 0.8. Sodium 138. Potassium 4.2. Bicarb 22. BUN 16. Creatinine 0.84. Glucose 298. Troponin 0.097. proBNP 3890. Procalcitonin 0.13. She is seen today in consultation in the emergency department. She is currently laying on a stretcher. Awake and alert. She is requiring BiPAP support at 10/5 and 30% FiO2. She did have a Tmax of 101 degree axillary. Tachypneic in the 30s. Blood pressure stable. The patient is seen today November 03, 2023 in follow-up on the selective care unit. She is currently resting comfortably in bed. Awake and alert in no acute distress. Feeling better today compared to yesterday. She is maintaining O2 saturations in the 90s on room air. She has been afebrile. Hemodynamically stable. Echocardiogram revealed mildly impaired left ventricular systolic function with ejection fraction of 45%. Sodium 132. Potassium 4.5. Bicarb 21. BUN 36. Creatinine 1.28. Glucose 710. Urinalysis with 4+ glucose. Procalcitonin 0.13. She is continued on Lasix 40 mg IV every 12 hours. Continued on bronchodilators and steroids. Antibiotics in the form of ceftriaxone and azithromycin. Initiated on an insulin drip. The patient is seen today November 04, 2023 in follow-up on the selective care unit. She is awake and alert in no acute distress. Resting fairly comfortably in bed. Denies any worsening shortness of breath, cough or congestion. She is maintaining good O2 saturation in the 90s on 4 L/min per nasal cannula. She is off the insulin drip. Transition to Levemir and NovoLog sliding scale. Glucose 206. Sodium 137. Potassium 3.9. Bicarb 25. BUN 39. Creatinine 1.29. She remains on ceftriaxone. Continued on bronchodilators. She remains on IV Lasix every 12 hours. Currently in a -3.8 L balance. Objective - Vital Signs Vital signs: Vital Signs Temp 98.0 F 11/04/23 08:00 Pulse 66 11/04/23 12:17 Resp 20 11/04/23 08:00 BP 98/43 11/04/23 08:00 Pulse Ox 97 11/04/23 08:00 FiO2 30 11/03/23 00:00 Intake & Output 11/03/23 11/04/23 11/04/23 17:59 06:59 18:59 Intake Total 118 Output Total 1175 Balance -1057 Weight Intake: Intake, IV Titration Amount Insulin Regular 100 unit In Sodium Chloride 0.9% 100 ml @ Titrate IV .Q0M KAREN Rx#:[id number] Insulin Regular 100 unit In Sodium Chloride 0.9% 100 ml @ Titrate IV .Q0M KAREN Rx#:[id number] Oral 118 Output: Urine 1175 Other: Voiding Method Indwelling Catheter # Bowel Movements - Exam GENERAL EXAM: Alert, pleasant 73-year-old female, resting in bed, on room air, in no apparent distress. HEAD: Normocephalic. EYES: Normal reaction of pupils, equal size. NOSE: Clear with pink turbinates. THROAT: No erythema or exudates. NECK: No masses, no JVD. CHEST: No chest wall deformity. LUNGS: Equal air entry with scattered rhonchi, crackles in the posterior bases . CVS: S1 and S2 normal with an audible murmur, regular rhythm. ABDOMEN: No hepatosplenomegaly, normal bowel sounds, no guarding or rigidity. SPINE: No scoliosis or deformity SKIN: No rashes CENTRAL NERVOUS SYSTEM: No focal deficits, tone is normal in all 4 extremities. EXTREMITIES: There is no peripheral edema. No clubbing, no cyanosis. Peripheral pulses are intact. - Labs CBC & Chem 7: 11/02/23 05:05 11/04/23 08:56 Labs: Abnormal Lab Results - Last 24 Hours (Table) 11/03/23 11/03/23 11/03/23 Range/Units 12:55 12:55 14:59 BUN (7-17) mg/dL Creatinine (0.52-1.04) mg/dL Glucose 806 H* (74-99) mg/dL POC Glucose (mg/dL) >600 H (70-110) mg/dL Hemoglobin A1c 11.7 H (<=6.0) % Calcium (8.4-10.2) mg/dL 11/03/23 11/03/23 11/03/23 Range/Units 15:11 16:04 16:40 BUN (7-17) mg/dL Creatinine (0.52-1.04) mg/dL Glucose 771 H* 510 H* (74-99) mg/dL POC Glucose (mg/dL) >600 H (70-110) mg/dL Hemoglobin A1c (<=6.0) % Calcium (8.4-10.2) mg/dL 11/03/23 11/03/23 11/03/23 Range/Units 17:03 18:02 18:59 BUN (7-17) mg/dL Creatinine (0.52-1.04) mg/dL Glucose (74-99) mg/dL POC Glucose (mg/dL) >600 H 530 H 424 H (70-110) mg/dL Hemoglobin A1c (<=6.0) % Calcium (8.4-10.2) mg/dL 11/03/23 11/03/23 11/03/23 Range/Units 19:56 20:58 22:03 BUN (7-17) mg/dL Creatinine (0.52-1.04) mg/dL Glucose (74-99) mg/dL POC Glucose (mg/dL) 278 H 210 H 143 H (70-110) mg/dL Hemoglobin A1c (<=6.0) % Calcium (8.4-10.2) mg/dL 11/03/23 11/04/23 11/04/23 Range/Units 22:59 00:08 00:55 BUN (7-17) mg/dL Creatinine (0.52-1.04) mg/dL Glucose (74-99) mg/dL POC Glucose (mg/dL) 136 H 124 H 147 H (70-110) mg/dL Hemoglobin A1c (<=6.0) % Calcium (8.4-10.2) mg/dL 11/04/23 11/04/23 11/04/23 Range/Units 01:58 04:18 05:02 BUN (7-17) mg/dL Creatinine (0.52-1.04) mg/dL Glucose (74-99) mg/dL POC Glucose (mg/dL) 190 H 196 H 173 H (70-110) mg/dL Hemoglobin A1c (<=6.0) % Calcium (8.4-10.2) mg/dL 11/04/23 11/04/23 11/04/23 Range/Units 05:53 08:02 08:52 BUN (7-17) mg/dL Creatinine (0.52-1.04) mg/dL Glucose (74-99) mg/dL POC Glucose (mg/dL) 138 H 167 H 219 H (70-110) mg/dL Hemoglobin A1c (<=6.0) % Calcium (8.4-10.2) mg/dL 11/04/23 11/04/23 11/04/23 Range/Units 08:56 10:01 11:02 BUN 39 H (7-17) mg/dL Creatinine 1.29 H (0.52-1.04) mg/dL Glucose 206 H (74-99) mg/dL POC Glucose (mg/dL) 219 H 238 H (70-110) mg/dL Hemoglobin A1c (<=6.0) % Calcium 8.3 L (8.4-10.2) mg/dL Microbiology - Last 24 Hours (Table) 11/02/23 09:03 Blood Culture - Preliminary Blood Assessment and Plan Assessment: Acute hypoxemic respiratory failure secondary to a combination of diastolic congestive heart failure and possible underlying pneumonia Troponin leak secondary to above Acute exacerbation of chronic obstructive pulmonary disease Severe oxygen dependent COPD with an FEV1 value of 54% of predicted History of previous COVID-19 infection Hyperlipidemia Hypertension Diabetes mellitus, type II, with steroid-induced hyperglycemia Coronary artery disease with previous coronary bypass grafting and previous stenting Previous history of ESBL producing UTI urinary tract infection Obesity History of CVA/TIA Plan: The patient was seen and evaluated Labs and medications reviewed Remains in a negative balance Off insulin drip and transitioned to Levemir Continue the current treatment plan Increase activity as tolerated We will continue to follow I have personally seen and examined the patient, performed the documentation and the assessment and plan as written. Number of minutes spent on the visit: 10.
[2023-11-04 16:41] LABS: Glucose,Whole Blood 277 mg/dL (70-110)
--- NOTE | 2023-11-04 18:11 | P.PN ---
Subjective Progress Note Date: 11/04/23 This is a 73-year-old female with a past medical history significant for coronary artery disease with previous CABG, hypertension, hyperlipidemia, diabetes, congestive heart failure. We have been asked to see the patient in consultation for congestive heart failure. Patient examined at the bedside in the emergency room. Patient is currently lethargic and on a BiPAP. Patient initially presented to the hospital with a chief complaint of shortness of breath. Patient was found to be in acute heart failure and was started on IV diuretics. She denies any chest pain or pressure. Vital signs are stable. DIAGNOSTICS: - EKG reveals sinus mechanism with IVCD. - Chest xray probable increasing pulmonary edema and/or unusual pneumonia changes - Laboratory data: WBC 13.7. Platelet count 242. Hemoglobin 11.6. Sodium 138. Potassium 4.2. BUN 16. Creatinine 0.84. Lactic acid 1.5. Troponin 0.064. 0 .097. proBNP 3890 - Current home cardiac medications include aspirin 81 mg daily, valsartan 80 mg daily, metoprolol succinate 50 mg daily, Lasix 40 mg daily, Lipitor 80 mg at night, and Plavix 75 mg daily. - Most recent echocardiogram obtained in 12/2022 revealed ejection fraction 55 to 60%, mild mitral stenosis, mild to moderate mitral regurgitation, and mild tricuspid regurgitation -Patient underwent three-vessel CABG in October 2016 with WELCH to LAD, SVG to posterior descending coronary artery, and SVG to obtuse marginal artery Progress note 11/03/2023 It was noted that patient has been hyperglycemic with blood sugars in 700s, has developed MONALISA and has been placed on IV insulin drip. However patient denies any chest pain chest pressure. Her fluid overload is better as compared to yesterday. 11/04/2023 Denies any chest pain chest pressure or shortness of breath. Blood glucoses much better today. Appears less volume overloaded. Somewhat nearing euvolemia. Will transition her to p.o. medications to be ready to get her discharged for tomorrow or day after tomorrow. PHYSICAL EXAM: VITAL SIGNS: Reviewed. GENERAL: Well-developed in no acute distress. HEENT: Head is normocephalic. Pupils are equal, round. Sclerae anicteric. Mucous membranes of the mouth are moist. Neck supple. Positive JVD LUNGS: Respirations even and unlabored. Lungs with bilateral crackles. Currently on BiPAP HEART: Regular rate and rhythm. S1 and S2 heard. ABDOMEN: Soft. Nondistended. Nontender. EXTREMITIES: Normal range of motion. No clubbing or cyanosis. Peripheral pulses intact. No lower extremity edema NEUROLOGIC: Lethargic ASSESSMENT: Shortness of breath Acute hypoxic respiratory failure, requiring BiPAP Acute on chronic heart failure with preserved EF Coronary artery disease with previous three-vessel CABG, 2017, WELCH to LAD, SVG to posterior descending coronary artery, and SVG to obtuse marginal artery Valvular heart disease: mild mitral stenosis, mild to moderate mitral regurgi tation, and mild tricuspid regurgitation Hypertension Hyperlipidemia Diabetes with hyperglycemia during hospitalization PLAN: Echocardiogram showed an EF of 45%. Continue aspirin and atorvastatin. There is no clear indication why patient is on Plavix, will discontinue. Continue Aldactone 12.5 mg daily. Continue metoprolol Start Farxiga 10 mg daily, Start lisinopril 5 mg daily. Cannot do Entresto because of recent MONALISA and low blood pressure Patient received 1 dose of IV Lasix today. She appears close to euvolemic. Will transition her to Bumex 1mg p.o. daily from tomorrow to go home on Patient needs outpatient ischemic evaluation for new worsening EF, minimally elevated troponin. 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 field service technician in next 1 week Objective - Vital Signs Vital signs: Vital Signs Temp 98.0 F 11/04/23 08:00 Pulse 63 11/04/23 14:00 Resp 18 11/04/23 14:00 BP 124/40 11/04/23 12:00 Pulse Ox 97 11/04/23 12:00 FiO2 30 11/03/23 00:00 Intake & Output 11/03/23 11/04/23 11/04/23 17:59 06:59 18:59 Intake Total 118 Output Total 1550 Balance -1432 Weight Intake: Intake, IV Titration Amount Insulin Regular 100 unit In Sodium Chloride 0.9% 100 ml @ Titrate IV .Q0M KAREN Rx#:[id number] Insulin Regular 100 unit In Sodium Chloride 0.9% 100 ml @ Titrate IV .Q0M KAREN Rx#:[id number] Oral 118 Output: Urine 1550 Other: Voiding Method Indwelling Catheter # Bowel Movements - Labs CBC & Chem 7: 11/02/23 05:05 11/04/23 08:56 Labs: Abnormal Lab Results - Last 24 Hours (Table) 11/03/23 11/03/23 11/03/23 Range/Units 12:55 16:40 18:02 BUN (7-17) mg/dL Creatinine (0.52-1.04) mg/dL Glucose 510 H* (74-99) mg/dL POC Glucose (mg/dL) 530 H (70-110) mg/dL Hemoglobin A1c 11.7 H (<=6.0) % Calcium (8.4-10.2) mg/dL 11/03/23 11/03/23 11/03/23 Range/Units 18:59 19:56 20:58 BUN (7-17) mg/dL Creatinine (0.52-1.04) mg/dL Glucose (74-99) mg/dL POC Glucose (mg/dL) 424 H 278 H 210 H (70-110) mg/dL Hemoglobin A1c (<=6.0) % Calcium (8.4-10.2) mg/dL 11/03/23 11/03/23 11/04/23 Range/Units 22:03 22:59 00:08 BUN (7-17) mg/dL Creatinine (0.52-1.04) mg/dL Glucose (74-99) mg/dL POC Glucose (mg/dL) 143 H 136 H 124 H (70-110) mg/dL Hemoglobin A1c (<=6.0) % Calcium (8.4-10.2) mg/dL 11/04/23 11/04/23 11/04/23 Range/Units 00:55 01:58 04:18 BUN (7-17) mg/dL Creatinine (0.52-1.04) mg/dL Glucose (74-99) mg/dL POC Glucose (mg/dL) 147 H 190 H 196 H (70-110) mg/dL Hemoglobin A1c (<=6.0) % Calcium (8.4-10.2) mg/dL 11/04/23 11/04/23 11/04/23 Range/Units 05:02 05:53 08:02 BUN (7-17) mg/dL Creatinine (0.52-1.04) mg/dL Glucose (74-99) mg/dL POC Glucose (mg/dL) 173 H 138 H 167 H (70-110) mg/dL Hemoglobin A1c (<=6.0) % Calcium (8.4-10.2) mg/dL 11/04/23 11/04/23 11/04/23 Range/Units 08:52 08:56 10:01 BUN 39 H (7-17) mg/dL Creatinine 1.29 H (0.52-1.04) mg/dL Glucose 206 H (74-99) mg/dL POC Glucose (mg/dL) 219 H 219 H (70-110) mg/dL Hemoglobin A1c (<=6.0) % Calcium 8.3 L (8.4-10.2) mg/dL 11/04/23 11/04/23 Range/Units 11:02 16:40 BUN (7-17) mg/dL Creatinine (0.52-1.04) mg/dL Glucose (74-99) mg/dL POC Glucose (mg/dL) 238 H 277 H (70-110) mg/dL Hemoglobin A1c (<=6.0) % Calcium (8.4-10.2) mg/dL Microbiology - Last 24 Hours (Table) 11/02/23 09:03 Blood Culture - Preliminary Blood
[2023-11-04 20:30] LABS: Glucose,Whole Blood 297 mg/dL (70-110)
[2023-11-05 06:20] LABS: Glucose,Whole Blood 170 mg/dL (70-110)
[2023-11-05] MEDS: INSULIN DETEMIR (LEVEMIR) 100 UNIT/ML SYR SQ SCH (06:26)
[2023-11-05] MEDS ORDERED: INSULIN DETEMIR (LEVEMIR) 100 UNIT/ML SYR SQ SCH (07:00)
[2023-11-05 08:15] LABS: Basophils % (A) 0 %; Eosinophils # (A) 0.2 k/uL (0-0.7); Eosinophils % (A) 2 %; HCT 33.2 % (34.0-46.0); Lymphocytes # (A) 3.2 k/uL (1.0-4.8); Lymphocytes % (A) 26 %; MCH 30.8 pg (25.0-35.0); MCHC 33.1 g/dL (31.0-37.0); Mean Platelet Volume 7.8; Monocytes # (A) 0.7 k/uL (0-1.0); Monocytes % (A) 5 %; Neutrophils # (A) 8.2 k/uL (1.3-7.7); Neutrophils % (A) 66 %; Platelet Count 392 k/uL (150-450); RBC 3.57 m/uL (3.80-5.40); WBC 12.5 k/uL (3.8-10.6)
[2023-11-05 08:28] LABS: African American GFR (CKD) 66 (>60 ml/min/1.73 sqM); Anion Gap 9 mmol/L; Blood Urea Nitrogen 31 mg/dL (7-17); Calcium 8.5 mg/dL (8.4-10.2); Carbon Dioxide 27 mmol/L (22-30); Chloride 104 mmol/L (98-107); Glucose 164 mg/dL (74-99); Non-African American GFR(CKD) 57 (>60 ml/min/1.73 sqM); Potassium 3.7 mmol/L (3.5-5.1); Sodium 140 mmol/L (137-145)
[2023-11-05] MEDS: BUMETANIDE 1 MG TAB PO SCH (09:29)
[2023-11-05] MEDS: lisinopriL 5 MG TAB PO SCH (09:29)
[2023-11-05] MEDS: DAPAGLIFLOZIN PROPANEDIOL 10 MG TABLET PO SCH (09:29)
[2023-11-05 11:12] VITALS: BP 127/52; TEMP 98
[2023-11-05 12:07] LABS: Glucose,Whole Blood 288 mg/dL (70-110)
--- NOTE | 2023-11-05 14:32 | P.PN ---
Subjective Progress Note Date: 11/05/23 Principal diagnosis: Shortness of breath. This is a 73-year-old female patient with a known history of CVA/TIA, dementia, diabetes mellitus, hypertension, hyperlipidemia, coronary artery disease, diastolic congestive heart failure. She had presented to the emergency room early this morning with complaints of increasing shortness of breath, cough and congestion. Chest x-ray reveals increasing pulmonary edema or unusual pneumonia type changes. White count 13.7. Hemoglobin 11.6. Platelets 242. INR 0.8. Sodium 138. Potassium 4.2. Bicarb 22. BUN 16. Creatinine 0.84. Glucose 298. Troponin 0.097. proBNP 3890. Procalcitonin 0.13. She is seen today in consultation in the emergency department. She is currently laying on a stretcher. Awake and alert. She is requiring BiPAP support at 10/5 and 30% FiO2. She did have a Tmax of 101 degree axillary. Tachypneic in the 30s. Blood pressure stable. The patient is seen today November 03, 2023 in follow-up on the selective care unit. She is currently resting comfortably in bed. Awake and alert in no acute distress. Feeling better today compared to yesterday. She is maintaining O2 saturations in the 90s on room air. She has been afebrile. Hemodynamically stable. Echocardiogram revealed mildly impaired left ventricular systolic function with ejection fraction of 45%. Sodium 132. Potassium 4.5. Bicarb 21. BUN 36. Creatinine 1.28. Glucose 710. Urinalysis with 4+ glucose. Procalcitonin 0.13. She is continued on Lasix 40 mg IV every 12 hours. Continued on bronchodilators and steroids. Antibiotics in the form of ceftriaxone and azithromycin. Initiated on an insulin drip. The patient is seen today November 04, 2023 in follow-up on the selective care unit. She is awake and alert in no acute distress. Resting fairly comfortably in bed. Denies any worsening shortness of breath, cough or congestion. She is maintaining good O2 saturation in the 90s on 4 L/min per nasal cannula. She is off the insulin drip. Transition to Levemir and NovoLog sliding scale. Glucose 206. Sodium 137. Potassium 3.9. Bicarb 25. BUN 39. Creatinine 1.29. She remains on ceftriaxone. Continued on bronchodilators. She remains on IV Lasix every 12 hours. Currently in a -3.8 L balance. Progress note dated November 05, 2023. The patient is seen today in room 378. The patient is on 2 L of oxygen. She is being treated for heart failure. She is receiving Lasix twice a day. She is not receiving any IV fluids. Clinically, she looks much more stable. Current laboratory data includes a white count of 12.5, hemoglobin 11, hematocrit 33.2, and a normal platelet count. Sodium 140, potassium 3.7, chloride 104, CO2 27, anion gap 9, BUN 31, creatinine 0.98, glucose 164. Calcium is 8.5. Blood cultures are showing no growth. Objective - Vital Signs Vital signs: Vital Signs Temp 98 F 11/05/23 09:25 Pulse 60 11/05/23 11:55 Resp 18 11/05/23 09:25 BP 127/52 11/05/23 09:25 Pulse Ox 99 11/05/23 09:25 FiO2 30 11/03/23 00:00 Intake & Output 11/04/23 11/05/23 11/05/23 18:59 06:59 18:59 Intake Total 118 Output Total 1550 Balance -1432 Weight 81.2 kg Intake: Oral 118 Output: Urine 1550 Other: Voiding Method Indwelling Catheter External Catheter External Catheter # Voids 2 # Bowel Movements 1 - Exam No acute distress, oriented 3. 2 L saturation is 99%. HEENT examination is grossly unremarkable. Mucous membranes are moist. No oral lesions. Neck supple. Full range of motion. No adenopathy thyromegaly or neck vein distention. Cardiovascular examination reveals regular rhythm rate. S1-S2 normal. No S3 or S4. No discernible murmur noted. Heart rate 60 bpm. Heart sounds are distant. Lungs reveal clear bibasilar crackles. No wheezes. No rhonchi. Breath sounds are equal bilaterally. Abdomen soft bowel sounds are heard. No masses or tenderness. Extremities are intact. No cyanosis clubbing or edema. Skin is without rash or lesion. Neurologic examination is brief but nonfocal. - Labs CBC & Chem 7: 11/05/23 07:50 11/05/23 07:50 Labs: Abnormal Lab Results - Last 24 Hours (Table) 11/04/23 11/04/23 11/05/23 Range/Units 16:40 20:28 06:19 WBC (3.8-10.6) k/uL RBC (3.80-5.40) m/uL Hgb (11.4-16.0) gm/dL Hct (34.0-46.0) % Neutrophils # (1.3-7.7) k/uL BUN (7-17) mg/dL Glucose (74-99) mg/dL POC Glucose (mg/dL) 277 H 297 H 170 H (70-110) mg/dL 11/05/23 11/05/23 11/05/23 Range/Units 07:50 07:50 12:04 WBC 12.5 H (3.8-10.6) k/uL RBC 3.57 L (3.80-5.40) m/uL Hgb 11.0 L (11.4-16.0) gm/dL Hct 33.2 L (34.0-46.0) % Neutrophils # 8.2 H (1.3-7.7) k/uL BUN 31 H (7-17) mg/dL Glucose 164 H (74-99) mg/dL POC Glucose (mg/dL) 288 H (70-110) mg/dL Microbiology - Last 24 Hours (Table) 11/03/23 09:20 Blood Culture - Preliminary Blood 11/02/23 09:03 Blood Culture - Preliminary Blood Assessment and Plan Assessment: Acute hypoxemic respiratory failure secondary to a combination of diastolic congestive heart failure and possible underlying pneumonia. Troponin leak secondary to above. Acute exacerbation of chronic obstructive pulmonary disease. 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 History of previous COVID-19 infection. Hyperlipidemia. Hypertension. Diabetes mellitus, type II, with steroid-induced hyperglycemia. Coronary artery disease with previous coronary bypass grafting and previous stenting. Previous history of ESBL producing UTI urinary tract infection. Obesity. History of CVA/TIA. Plan: Plan dated November 05, 2023. The patient is seen today in room 378. The patient is currently on 2 L of oxygen. She appears quite comfortable. She is not receiving any IV fluids. She continues on Lasix. Labs, x-rays, and medications are all reviewed. We will continue to follow the patient, and make recommendations along the way. The patient appears to be progressing very nicely. Prognosis is guarded. Time with Patient: Less than 30
--- NOTE | 2023-11-05 15:09 | P.PN ---
Subjective Progress Note Date: 11/05/23 This is a 73-year-old female with a past medical history significant for coronary artery disease with previous CABG, hypertension, hyperlipidemia, diabetes, congestive heart failure. We have been asked to see the patient in consultation for congestive heart failure. Patient examined at the bedside in the emergency room. Patient is currently lethargic and on a BiPAP. Patient initially presented to the hospital with a chief complaint of shortness of breath. Patient was found to be in acute heart failure and was started on IV diuretics. She denies any chest pain or pressure. Vital signs are stable. DIAGNOSTICS: - EKG reveals sinus mechanism with IVCD. - Chest xray probable increasing pulmonary edema and/or unusual pneumonia changes - Laboratory data: WBC 13.7. Platelet count 242. Hemoglobin 11.6. Sodium 138. Potassium 4.2. BUN 16. Creatinine 0.84. Lactic acid 1.5. Troponin 0.064. 0 .097. proBNP 3890 - Current home cardiac medications include aspirin 81 mg daily, valsartan 80 mg daily, metoprolol succinate 50 mg daily, Lasix 40 mg daily, Lipitor 80 mg at night, and Plavix 75 mg daily. - Most recent echocardiogram obtained in 12/2022 revealed ejection fraction 55 to 60%, mild mitral stenosis, mild to moderate mitral regurgitation, and mild tricuspid regurgitation -Patient underwent three-vessel CABG in October 2016 with WELCH to LAD, SVG to posterior descending coronary artery, and SVG to obtuse marginal artery Progress note 11/03/2023 It was noted that patient has been hyperglycemic with blood sugars in 700s, has developed MONALISA and has been placed on IV insulin drip. However patient denies any chest pain chest pressure. Her fluid overload is better as compared to yesterday. 11/04/2023 Denies any chest pain chest pressure or shortness of breath. Blood glucoses much better today. Appears less volume overloaded. Somewhat nearing euvolemia. Will transition her to p.o. medications to be ready to get her discharged for tomorrow or day after tomorrow. 11/04 Patient states that she is feeling much better but not 100%. Patient is currently on Bumex 1 mg oral daily. Blood pressure 127/52, heart rate 65, pulse ox 99% on 2 L nasal cannula. Patient had a negative fluid balance of 3779 as of yesterday. Yesterday, patient was started on Farxiga and lisinopril. Repeat blood work reveals hemoglobin 11, WBC 12.5. Electrolytes are normal. BUN 31 creatinine 0.90. PHYSICAL EXAM: VITAL SIGNS: Reviewed. GENERAL: Well-developed in no acute distress. HEENT: Head is normocephalic. Pupils are equal, round. Sclerae anicteric. Mucous membranes of the mouth are moist. Neck supple. Positive JVD LUNGS: Respirations even and unlabored. Lungs with bilateral crackles. Currently on BiPAP HEART: Regular rate and rhythm. S1 and S2 heard. ABDOMEN: Soft. Nondistended. Nontender. EXTREMITIES: Normal range of motion. No clubbing or cyanosis. Peripheral pulses intact. No lower extremity edema ASSESSMENT: Acute hypoxic respiratory failure, requiring BiPAP Acute on chronic heart failure with preserved EF Coronary artery disease with previous three-vessel CABG, 2017, WELCH to LAD, SVG to posterior descending coronary artery, and SVG to obtuse marginal artery Valvular heart disease: mild mitral stenosis, mild to moderate mitral regurgitation, and mild tricuspid regurgitation Hypertension Hyperlipidemia Diabetes with hyperglycemia during hospitalization PLAN: Echocardiogram showed an EF of 45%. Continue aspirin and atorvastatin. There is no clear indication why patient is on Plavix, will discontinue. Continue Aldactone 12.5 mg daily. Continue metoprolol, Farxiga 10 mg daily, lisinopril 5 mg daily. Farxiga 10 mg daily, Start lisinopril 5 mg daily. Cannot do Entresto because of recent MONALISA and low blood pressure Are you still in that document Patient needs outpatient ischemic evaluation for new worsening EF, minimally elevated troponin. Patient is cleared for discharge and may follow-up with Dr. Young Flannery in 1 week. Nurse practitioner note has been reviewed, I agree with documented findings and plan of care. Patient was seen and examined. Objective - Vital Signs Vital signs: Vital Signs Temp 98 F 11/05/23 09:25 Pulse 60 11/05/23 11:55 Resp 18 11/05/23 09:25 BP 127/52 11/05/23 09:25 Pulse Ox 99 11/05/23 09:25 FiO2 30 11/03/23 00:00 Intake & Output 11/04/23 11/05/23 11/05/23 18:59 06:59 18:59 Intake Total 118 Output Total 1550 Balance -1432 Weight 81.2 kg Intake: Oral 118 Output: Urine 1550 Other: Voiding Method Indwelling Catheter External Catheter External Catheter # Voids 2 # Bowel Movements 1 - Labs CBC & Chem 7: 11/05/23 07:50 11/05/23 07:50 Labs: Abnormal Lab Results - Last 24 Hours (Table) 11/04/23 11/04/23 11/05/23 Range/Units 16:40 20:28 06:19 WBC (3.8-10.6) k/uL RBC (3.80-5.40) m/uL Hgb (11.4-16.0) gm/dL Hct (34.0-46.0) % Neutrophils # (1.3-7.7) k/uL BUN (7-17) mg/dL Glucose (74-99) mg/dL POC Glucose (mg/dL) 277 H 297 H 170 H (70-110) mg/dL 11/05/23 11/05/23 11/05/23 Range/Units 07:50 07:50 12:04 WBC 12.5 H (3.8-10.6) k/uL RBC 3.57 L (3.80-5.40) m/uL Hgb 11.0 L (11.4-16.0) gm/dL Hct 33.2 L (34.0-46.0) % Neutrophils # 8.2 H (1.3-7.7) k/uL BUN 31 H (7-17) mg/dL Glucose 164 H (74-99) mg/dL POC Glucose (mg/dL) 288 H (70-110) mg/dL Microbiology - Last 24 Hours (Table) 11/03/23 09:20 Blood Culture - Preliminary Blood 11/02/23 09:03 Blood Culture - Preliminary Blood
[2023-11-05 16:21] VITALS: PULSE 64
[2023-11-05 19:27] VITALS: RESP 16
== END 2023-11-05 17:11 | disposition home health service (06) | DRG 291 ==
LOC: EC 03:37 → 3SCARD 05:20
PROVIDERS: ADMIT Hospitalist; ATTEND Hospitalist
PROC: 5A09357 Assistance with Respiratory Ventilation, Less than 24 Consecutive Hours, Continuous Positive Airway Pressure (ICD-10-PCS; principal; 2023-11-02)
DX: I11.0 Hypertensive heart disease with heart failure (principal); I50.33 Acute on chronic diastolic (congestive) heart failure; J96.01 Acute respiratory failure with hypoxia; J18.9 Pneumonia, unspecified organism; J44.1 Chronic obstructive pulmonary disease with (acute) exacerbation; I24.89 Other forms of acute ischemic heart disease; J44.0 Chronic obstructive pulmonary disease with (acute) lower respiratory infection; I44.0 Atrioventricular block, first degree; E11.65 Type 2 diabetes mellitus with hyperglycemia; I25.10 Atherosclerotic heart disease of native coronary artery without angina pectoris; E78.5 Hyperlipidemia, unspecified; F03.90 Unspecified dementia, unspecified severity, without behavioral disturbance, psychotic disturbance, mood disturbance, and anxiety; F40.240 Claustrophobia; I27.20 Pulmonary hypertension, unspecified; I34.0 Nonrheumatic mitral (valve) insufficiency; E86.0 Dehydration; T38.0X5A Adverse effect of glucocorticoids and synthetic analogues, initial encounter; E11.40 Type 2 diabetes mellitus with diabetic neuropathy, unspecified; I65.21 Occlusion and stenosis of right carotid artery; M19.90 Unspecified osteoarthritis, unspecified site; E03.9 Hypothyroidism, unspecified; Z87.01 Personal history of pneumonia (recurrent); E66.9 Obesity, unspecified; H54.7 Unspecified visual loss; Z79.4 Long term (current) use of insulin; Z87.440 Personal history of urinary (tract) infections; Z68.31 Body mass index [BMI] 31.0-31.9, adult; Z88.5 Allergy status to narcotic agent; Z99.81 Dependence on supplemental oxygen; Z95.1 Presence of aortocoronary bypass graft; Z87.891 Personal history of nicotine dependence; Z86.73 Personal history of transient ischemic attack (TIA), and cerebral infarction without residual deficits; Z86.19 Personal history of other infectious and parasitic diseases; Z86.16 Personal history of COVID-19; Z79.899 Other long term (current) drug therapy; Z79.82 Long term (current) use of aspirin; Z79.02 Long term (current) use of antithrombotics/antiplatelets; I25.2 Old myocardial infarction
CPT/HCPCS: 36415; 71045; 80048; 80053; 80061; 81003; 82947; 83036; 83605; 83735; 83880; 84145; 84484; 85025; 85610; 85730; 87040; 93005; 93308; 94640; 94660; 96365; 96367; 96375; 96376; 99291

== ENCOUNTER 2024-05-01 08:16 | Inpatient (IN) | payer MEDICARE ==
[2024-05-01 08:37] LABS: Glucose,Whole Blood 151 mg/dL (70-110)
--- NOTE | 2024-05-01 08:48 | ED ---
General Adult HPI - General Chief complaint: Altered Mental Status Stated complaint: AMS Time Seen by Provider: 05/01/24 08:30 Source: patient, EMS, RN notes reviewed, old records reviewed Mode of arrival: EMS Limitations: altered mental status - History of Present Illness Initial comments: 74-year-old female with fall, confusion. History is limited from the patient, no family available at the time my initial evaluation. Patient does states she had fallen this morning and felt lightheaded. Paramedics had noted that the patient had a low-grade fever. Patient states she is chilled. She denies cough. Denies abdominal pain. Denies nausea or vomiting. She denies pain from the fall. - Related Data Home Medications Medication Instructions Recorded Confirmed Atorvastatin [Lipitor] 80 mg PO HS 09/23/20 05/01/24 Aspirin EC [Ecotrin Low Dose] 81 mg PO DAILY 12/12/21 05/01/24 Clopidogrel Bisulfate [Plavix] 75 mg PO DAILY 12/12/21 05/01/24 traMADol HCL 50 mg PO BID 02/21/23 05/01/24 Metoprolol Succinate [Toprol XL] 50 mg PO DAILY 11/02/23 05/01/24 Omeprazole [PriLOSEC] 20 mg PO BID 11/02/23 05/01/24 Spironolactone [Aldactone] 25 mg PO DAILY 03/27/24 05/01/24 Valsartan [Diovan] 80 mg PO DAILY 03/27/24 05/01/24 Cholecalciferol [Vitamin D3 (125 125 mcg PO DAILY 05/01/24 05/01/24 Mcg = 5000 Iu)] Insulin Glargine,Hum.rec.anlog 80 units SQ HS 05/01/24 05/01/24 [Lantus Solostar Pen] Previous Rx's Medication Instructions Recorded Insulin Lispro [humaLOG Kwikpen] 15 units SQ AC-TID #0 06/19/22 Budesonide-Formot 160-4.5 Mcg 2 puff INHALATION RT-BID 30 Days 11/05/23 [Symbicort 160-4.5 Mcg Inhaler] #1 each Allergies Allergy/AdvReac Type Severity Reaction Status Date / Time codeine AdvReac Nausea & Verified 05/01/24 11:53 Vomiting Review of Systems ROS Statement: Those systems with pertinent positive or pertinent negative responses have been documented in the HPI. ROS Other: All systems not noted in ROS Statement are negative. 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, R caratid artery disease, valvular disease, pulmonary htn, bronchitis, home oxygen prn, poor vision/pt cannot recall reason, UTIs, rash/itching, WAS SEEN IN ER 12/2022 FOR N/V Last Myocardial Infarction Date:: 2014 History of Any Multi-Drug Resistant Organisms: ESBL Date of last positivie culture/infection: 04/15/21 MDRO Source:: ESBL URINE Past Surgical History: Cholecystectomy, Coronary Bypass/CABG, Heart Catheterization With Stent Additional Past Surgical History / Comment(s): PCI/stents in 2009 and 2014, 2016 CABG 3 vessel then sternal debridement for infection/removal of hardware, colonoscopy, bilateral cataract removals. Past Anesthesia/Blood Transfusion Reactions: No Reported Reaction Additional Past Anesthesia/Blood Transfusion Reaction / Comment(s): Claustrophobic Date of Last Stent Placement:: 2014 Past Psychological History: No Psychological Hx Reported Smoking Status: Former smoker Past Alcohol Use History: None Reported Past Drug Use History: None Reported - Past Family History Father Family Medical History: Coronary Artery Disease (CAD), Myocardial Infarction ([place]) Additional Family Medical History / Comment(s): STENT, OPEN HEART SURGERY Mother History Unknown: Yes Additional Family Medical History / Comment(s): DEPRESSION, mental illness General Exam Limitations: altered mental status General appearance: in no apparent distress, lethargic Head exam: Present: atraumatic, normocephalic Eye exam: Present: PERRL ENT exam: Present: mucous membranes dry Respiratory exam: Present: decreased breath sounds. Absent: respiratory distress Cardiovascular Exam: Present: regular rate, normal rhythm GI/Abdominal exam: Present: soft. Absent: distended, tenderness, guarding, rebound Extremities exam: Present: normal inspection, normal capillary refill. Absent: tenderness Neurological exam: Present: alert. Absent: oriented X3 Skin exam: Present: warm, dry, erythema (Facial erythema and warmth, cellulitis) Course Vital Signs 05/01/24 05/01/24 08:21 12:47 Temperature 100.1 F H 99.6 F Pulse Rate 71 Respiratory 18 Rate Blood Pressure 140/69 O2 Sat by Pulse 94 L Oximetry Medical Decision Making - Medical Decision Making Was pt. sent in by a medical professional or institution (, MAX, STAGE DIRECTOR, urgent care, hospital, or assisted...) When possible be specific @ -No Did you speak to anyone other than the patient for history (EMS, parent, family, police, friend...)? What history was obtained from this source @ -No Did you review nursing and triage notes (agree or disagree)? Why? @ -I reviewed and agree with nursing and triage notes Were old charts reviewed (outside hosp., previous admission, EMS record, old EKG, old radiological studies, urgent care reports/EKG's, assisted records)? Report findings @ -No old charts were reviewed Differential Altered Mental Status: Hypoglycemia, DKA, hypercapnia, ETOH, overdose, CO poisoning, trauma, myxedema coma, HTN encephalopathy, infection, encephalitis, psychosis, intercranial hemorrhage, hepatic encephalopathy, meningitis, CVA, this is not meant to be an all-inclusive list EKG interpreted by me (3pts min.). @PG: Ventricular rate of 71, NJ interval 214, QRS duration 129, QTc [address] segment elevation X-rays interpreted by me (1pt min.). @Single view chest x-ray negative for acute cardiopulmonary findings, pelvis x- ray negative for displaced fracture CT interpreted by me (1pt min.). @CT brain negative for intracranial hemorrhage or mass effect, CT cervical spine negative for fracture or subluxation U/S interpreted by me (1pt. min.). @ -None done What testing was considered but not performed or refused? (CT, X-rays, U/S, labs)? Why? @ -None What meds were considered but not given or refused? Why? @ -None Did you discuss the management of the patient with other professionals (professionals i.e. [facility], STAGE DIRECTOR, lab, RT, psych nurse, perinatal social worker, burr bench operator, teacher, chief quality officer, oil field caser)? Give summary @Dr. Tan, will admit Was smoking cessation discussed for >3mins.? @ -No Was critical care preformed (if so, how long)? @ -No Were there social determinants of health that impacted care today? How? (Homelessness, low income, unemployed, alcoholism, drug addiction, transportation, low edu. Level, literacy, decrease access to med. care, nursing home, rehab)? @ -No Was there de-escalation of care discussed even if they declined (Discuss DNR or withdrawal of care, Hospice)? DNR status @ -No What co-morbidities impacted this encounter? (DM, HTN, Smoking, COPD, CAD, Cancer, CVA, ARF, Chemo, Hep., AIDS, mental health diagnosis, sleep apnea, morbid obesity)? @ -[Multiple chronic medical conditions Was patient admitted / discharged? Hospital course, mention meds given and route, prescriptions, significant lab abnormalities, going to OR and other pertinent info. @ -Patient admitted with acute altered mental status, facial cellulitis, fever and testing positive for coronavirus. Patient has high white blood cell count of 21 thousand. Blood cultures and antibiotics have been initiated in the emergency department. Case discussed with EM. 1Undiagnosed new problem with uncertain prognosis? @ -[No Drug Therapy requiring intensive monitoring for toxicity (Heparin, Nitro, Insulin, Cardizem)? @ -No Were any procedures done? @ -No Diagnosis/symptom? @ -[Altered mental status secondary to fever, facial cellulitis, coronavirus Acute, or Chronic, or Acute on Chronic? @ -Acute Uncomplicated (without systemic symptoms) or Complicated (systemic symptoms)? @ -Complicated Side effects of treatment? @ -[No Exacerbation, Progression, or Severe Exacerbation? @ -No Poses a threat to life or bodily function? How? (Chest pain, USA, MS, pneumonia, PE, COPD, DKA, ARF, appy, cholecystitis, CVA, Diverticulitis, Homicidal, Suicidal, threat to staff... and all critical care pts) @Yes, sepsis, organ failure, delirium - Lab Data Result diagrams: 05/01/24 09:27 05/01/24 09: Lab Results 05/01/24 05/01/24 05/01/24 Range/Units 08:36 09:27 09: WBC 21.4 H (3.8-10.6) k/uL RBC 4.06 (3.80-5.40) m/uL Hgb 12.6 (11.4-16.0) gm/dL Hct 39.4 (34.0-46.0) % MCV 97.0 (80.0-100.0) fL MCH 31.1 (25.0-35.0) pg MCHC 32.0 (31.0-37.0) g/dL RDW 14.2 (11.5-15.5) % Plt Count 340 (150-450) k/uL MPV 8.0 Neutrophils % 89 % Lymphocytes % 4 % Monocytes % 4 % Eosinophils % 1 % Basophils % 0 % Neutrophils # 19.0 H (1.3-7.7) k/uL Lymphocytes # 0.9 L (1.0-4.8) k/uL Monocytes # 0.9 (0-1.0) k/uL Eosinophils # 0.3 (0-0.7) k/uL Basophils # 0.1 (0-0.2) k/uL PT 10.3 (10.0-12.5) sec INR 0.9 (<1.2) APTT 24.8 (22.0-30.0) sec Sodium (137-145) mmol/L Potassium (3.5-5.1) mmol/L Chloride (98-107) mmol/L Carbon Dioxide (22-30) mmol/L Anion Gap mmol/L BUN (7-17) mg/dL Creatinine (0.52-1.04) mg/dL Est GFR (CKD-EPI)AfAm (>60 ml/min/1.73 sqM) Est GFR (CKD-EPI)NonAf (>60 ml/min/1.73 sqM) Glucose (74-99) mg/dL POC Glucose (mg/dL) 151 H (70-110) mg/dL POC Glu Transfer Controller ID Do Roland Calcium (8.4-10.2) mg/dL Total Bilirubin (0.2-1.3) mg/dL AST (14-36) U/L ALT (4-34) U/L Alkaline Phosphatase (38-126) U/L Total Protein (6.3-8.2) g/dL Albumin (3.5-5.0) g/dL Urine Color Urine Appearance (Clear) Urine pH (5.0-8.0) Ur Specific [place] (1.001-1.035) Urine Protein (Negative) Urine Glucose (UA) (Negative) Urine Ketones (Negative) Urine Blood (Negative) Urine Nitrite (Negative) Urine Bilirubin (Negative) Urine Urobilinogen (<2.0) mg/dL Ur Leukocyte Esterase (Negative) Urine RBC (0-5) /hpf Urine WBC (0-5) /hpf Ur Squamous Epith Cells (0-4) /hpf Urine Bacteria (None) /hpf Urine Mucus (None) /hpf Influenza Type A (PCR) (Not Detectd) Influenza Type B (PCR) (Not Detectd) RSV (PCR) (Not Detectd) SARS-CoV-2 (PCR) (Not Detectd) 05/01/24 05/01/24 05/01/24 Range/Units 09:27 09:27 09:27 WBC (3.8-10.6) k/uL RBC (3.80-5.40) m/uL Hgb (11.4-16.0) gm/dL Hct (34.0-46.0) % MCV (80.0-100.0) fL MCH (25.0-35.0) pg MCHC (31.0-37.0) g/dL RDW (11.5-15.5) % Plt Count (150-450) k/uL MPV Neutrophils % % Lymphocytes % % Monocytes % % Eosinophils % % Basophils % % Neutrophils # (1.3-7.7) k/uL Lymphocytes # (1.0-4.8) k/uL Monocytes # (0-1.0) k/uL Eosinophils # (0-0.7) k/uL Basophils # (0-0.2) k/uL PT (10.0-12.5) sec INR (<1.2) APTT (22.0-30.0) sec Sodium 141 (137-145) mmol/L Potassium 4.7 (3.5-5.1) mmol/L Chloride 104 (98-107) mmol/L Carbon Dioxide 22 (22-30) mmol/L Anion Gap 15 mmol/L BUN 30 H (7-17) mg/dL Creatinine 1.40 H (0.52-1.04) mg/dL Est GFR (CKD-EPI)AfAm 43 (>60 ml/min/1.73 sqM) Est GFR (CKD-EPI)NonAf 37 (>60 ml/min/1.73 sqM) Glucose 162 H (74-99) mg/dL POC Glucose (mg/dL) (70-110) mg/dL POC Glu Transfer Controller ID Calcium 9.5 (8.4-10.2) mg/dL Total Bilirubin 1.8 H (0.2-1.3) mg/dL AST 26 (14-36) U/L ALT 14 (4-34) U/L Alkaline Phosphatase 92 (38-126) U/L Total Protein 7.4 (6.3-8.2) g/dL Albumin 4.1 (3.5-5.0) g/dL Urine Color Colorless Urine Appearance Cloudy H (Clear) Urine pH 5.5 (5.0-8.0) Ur Specific [place] 1.018 (1.001-1.035) Urine Protein Trace H (Negative) Urine Glucose (UA) 4+ H (Negative) Urine Ketones Negative (Negative) Urine Blood Negative (Negative) Urine Nitrite Negative (Negative) Urine Bilirubin Negative (Negative) Urine Urobilinogen <2.0 (<2.0) mg/dL Ur Leukocyte Esterase Large H (Negative) Urine RBC 16 H (0-5) /hpf Urine WBC 36 H (0-5) /hpf Ur Squamous Epith Cells 1 (0-4) /hpf Urine Bacteria Rare H (None) /hpf Urine Mucus Rare H (None) /hpf Influenza Type A (PCR) Not Detected (Not Detectd) Influenza Type B (PCR) Not Detected (Not Detectd) RSV (PCR) Not Detected (Not Detectd) SARS-CoV-2 (PCR) Detected A (Not Detectd) Disposition Clinical Impression: Leukocytosis, COVID, Facial cellulitis Disposition: ADMITTED IP TO THIS HOSP Condition: Stable Is patient prescribed a controlled substance at d/c from ED?: No Referrals: Elvira Gonzales MD [Primary Care Provider] - 1-2 days Time of Disposition: 12:20
--- NOTE | 2024-05-01 09:13 | CT ---
EXAMINATION TYPE: CT brain cspine wo con DATE OF EXAM: 05/01/2024 COMPARISON: Brain 12/12/2021 HISTORY: 74-year-old female fall, confusion CT DLP: 1460.4 mGycm Automated exposure control for dose reduction was used. Technique: Examination of the head was done in axial plane without intravenous contrast. Coronal and sagittal reconstructions performed. CT of the cervical spine was obtained in axial plane without intravenous injection of contrast mater ial. Coronal and sagittal reformatted images were obtained from the axial views for evaluation of f ractures, spinal alignment and canal. FINDINGS: Head: There is no evidence of acute intracranial hemorrhage, acute ischemic changes, mass, mass-effect, or extra-axial fluid collection. There is no effacement of cerebral sulci or basal subarachnoid cister ns. There is no hydrocephalus. There is no midline shift. [place]-white matter distinction is preserv ed. There is moderate generalized supratentorial volume loss. Benign hyperostosis frontalis interna. [id number] mucosal thickening throughout the ethmoid air cells. Some lobulated mucosal thickeni ng right sphenoid sinus. Leftward nasal septal deviation. Mastoid air cells are well pneumatized. Orb its and globes are intact. Cervical spine: No craniocervical junction abnormality, predental space widening, or prevertebral soft tissue swellin g. Reversal of the normal cervical lordosis. Preserved alignment. Moderate to advanced disc/endplate degenerative change throughout the mid and lower cervical spine. Moderate facet and uncovertebral joint arthropathy is present throughout. Posterior osteophytic ridging concerning for at least mild spinal canal stenosis at C5-C6. No acute fracture seen of the cervical spine. There is moderate bilateral neuroforaminal stenosis at C3-C4 and on the right at C7-T1. Sagittal and coronal reformatted images confirm above findings. COMBINED IMPRESSION: 1. No acute intracranial abnormality seen. Moderate generalized cerebral atrophy. 2. No acute fracture or malalignment of the cervical spine. Reversal of the normal cervical lordosis could be positional or due to muscle spasm. Moderate multilevel spondylotic change.
--- NOTE | 2024-05-01 09:23 | XR ---
EXAMINATION TYPE: XR chest 1V portable DATE OF EXAM: 05/01/2024 COMPARISON: 03/27/2024 HISTORY: Altered mental status TECHNIQUE: Single frontal view of the chest is obtained. FINDINGS: There is no focal air space opacity, pleural effusion, or pneumothorax seen no overt failu re. Cardiomegaly with atherosclerotic change aorta. Median sternotomy changes. Left basilar subsegmen lori atelectasis favored over infiltrate. IMPRESSION: No acute process.
--- NOTE | 2024-05-01 09:24 | XR ---
EXAMINATION TYPE: XR pelvis AP view DATE OF EXAM: 05/01/2024 COMPARISON: NONE HISTORY: Pain The osseous structures are intact and the joint spaces are preserved. No acute fracture is seen. Deg enerative changes in the spine. Bilateral hip arthropathy. Vascular calcifications. Retained fecal de bris correlate for constipation. IMPRESSION: 1. No acute fracture.
[2024-05-01] MEDS: SODIUM CHLORIDE 0.9% 500 ML 500 ML IV ONE (09:27)
[2024-05-01] MEDS: ACETAMINOPHEN TAB 500 MG TAB PO STA (10:00)
[2024-05-01 10:27] LABS: Basophils # (A) 0.1 k/uL (0-0.2); Basophils % (A) 0 %; Eosinophils # (A) 0.3 k/uL (0-0.7); Eosinophils % (A) 1 %; HCT 39.4 % (34.0-46.0); HGB 12.6 gm/dL (11.4-16.0); Lymphocytes # (A) 0.9 k/uL (1.0-4.8); Lymphocytes % (A) 4 %; MCH 31.1 pg (25.0-35.0); Monocytes # (A) 0.9 k/uL (0-1.0); Monocytes % (A) 4 %; Neutrophils % (A) 89 %; Platelet Count 340 k/uL (150-450); RBC 4.06 m/uL (3.80-5.40); RDW 14.2 % (11.5-15.5); WBC 21.4 k/uL (3.8-10.6)
[2024-05-01 10:35] LABS: ALT 14 U/L (4-34); AST 26 U/L (14-36); African American GFR (CKD) 43 (>60 ml/min/1.73 sqM); Albumin 4.1 g/dL (3.5-5.0); Alkaline Phosphatase 92 U/L (38-126); Anion Gap 15 mmol/L; Blood Urea Nitrogen 30 mg/dL (7-17); Calcium 9.5 mg/dL (8.4-10.2); Carbon Dioxide 22 mmol/L (22-30); Chloride 104 mmol/L (98-107); Glucose 162 mg/dL (74-99); Non-African American GFR(CKD) 37 (>60 ml/min/1.73 sqM); Potassium 4.7 mmol/L (3.5-5.1); Sodium 141 mmol/L (137-145); Total Bilirubin 1.8 mg/dL (0.2-1.3); Total Protein 7.4 g/dL (6.3-8.2)
[2024-05-01] MEDS: ACETAMINOPHEN IV (For NPO) 1,000 MG in EMPTY BAG 1 BAG IVPB STA (10:36)
[2024-05-01 10:37] LABS: INR 0.9 (<1.2); Partial Thromboplastin Time 24.8 sec (22.0-30.0); Prothrombin Time 10.3 sec (10.0-12.5)
[2024-05-01 10:46] LABS: Appearance,Urine Cloudy (Clear); Bacteria,Urine Rare /hpf; Bilirubin,Urine Negative (Negative); Blood,Urine Negative (Negative); Color,Urine Colorless; Glucose,Urine (UA) 4+ (Negative); Ketones,Urine Negative (Negative); Leukocyte Esterase,Urine Large (Negative); Mucus,Urine Rare /hpf; Nitrite,Urine Negative (Negative); PH, Urine 5.5 (5.0-8.0); Protein,Urine Trace (Negative); RBC,Urine 16 /hpf (0-5); Specific Gravity,Urine 1.018 (1.001-1.035); Squamous Epithelial Cell,Urine 1 /hpf (0-4); Urobilinogen,Urine <2.0 mg/dL (<2.0); WBC,Urine 36 /hpf (0-5)
[2024-05-01] MEDS ORDERED: traMADol 50 MG TAB PO PRN (12:54)
--- NOTE | 2024-05-01 13:01 | P.HPIM ---
History of Present Illness 74-year-old female was brought in because of complaints of lightheadedness radiation and is found to be febrile with a temperature going above 101 and chills. Patient denies any cough or abdominal pain nausea vomiting diarrhea patient denies any dysuria patient is found to have cellulitis of the left side of the face never had any MRSA infection in the past patient does not have any caries tooth or dental infection. Patient facial cellulitis involves the entire left cheek extending to lower periorbital area on the left side. Patient COVID- 19 is positive although patient was diagnosed with COVID-19 pretty recently and this is residual from that. Patient denies any shortness of breath. Patient does have elevated white count of 21,400. Serum creatinine is around 1.4 this appears to be patient's baseline patient does use Aldactone and an angiotensin receptor maru at home. REVIEW OF SYSTEMS: All other systems are negative except those mentioned in the HPI PHYSICAL EXAMINATION: GENERAL: The patient is alert and oriented x3, not in any acute distress. Well developed, well nourished. Obese HEENT: Pupils are round and equally reacting to light. EOMI. No scleral icterus. No conjunctival pallor. Normocephalic, atraumatic. No pharyngeal erythema. No thyromegaly. CARDIOVASCULAR: S1 and S2 present. No murmurs, rubs, or gallops. PULMONARY: Chest is clear to auscultation, no wheezing or crackles. ABDOMEN: Soft, nontender, nondistended, normoactive bowel sounds. No palpable organomegaly. MUSCULOSKELETAL: No joint swelling or deformity. EXTREMITIES: No cyanosis, clubbing, or pedal edema. NEUROLOGICAL: Gross neurological examination did not reveal any focal deficits. SKIN: Cellulitis of the left side of the face as mentioned above Assessment and plan -Sepsis: Secondary to left-sided facial cellulitis patient will be started on cefazolin infectious disease will be consulted patient will be started on IV fluids -Chronic kidney disease stage III with mild acute renal failure IV fluids as mentioned above -Leukocytosis secondary to assessment #1 -Coronary artery disease for which patient will be resumed on home regimen -COPD without any acute exacerbation -Obesity -Type 2 diabetes mellitus patient will be started on home regimen of 80 units of long-acting insulin along with 15 units with each meal and high-dose sliding scale -Diabetic nephropathy and peripheral neuropathy -Hyperlipidemia -Hypertension DVT prophylaxis heparin subcutaneous 3 times daily Past Medical History Past Medical History: Asthma, Coronary Artery Disease (CAD), Chest Pain / Angina, Heart Failure, COPD, CVA/TIA, Dementia, Diabetes Mellitus, Hyperlipidemia, Hypertension, Myocardial Infarction ([place]), Pneumonia, Respiratory Disorder, Syncope, Vascular Disorder Additional Past Medical History / Comment(s): IDDM type II, neuropathy bilateral feet, 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, R caratid artery disease, valvular disease, pulmonary htn, bronchitis, home oxygen prn, poor vision/pt cannot recall reason, UTIs, rash/itching, WAS SEEN IN ER 12/2022 FOR N/V Last Myocardial Infarction Date:: 2014 History of Any Multi-Drug Resistant Organisms: ESBL Date of last positivie culture/infection: 04/15/21 MDRO Source:: ESBL URINE Past Surgical History: Cholecystectomy, Coronary Bypass/CABG, Heart Catheterization With Stent Additional Past Surgical History / Comment(s): PCI/stents in 2009 and 2014, 2016 CABG 3 vessel then sternal debridement for infection/removal of hardware, colonoscopy, bilateral cataract removals. Past Anesthesia/Blood Transfusion Reactions: No Reported Reaction Additional Past Anesthesia/Blood Transfusion Reaction / Comment(s): Claustrophobic Date of Last Stent Placement:: 2014 Past Psychological History: No Psychological Hx Reported Smoking Status: Former smoker Past Alcohol Use History: None Reported Past Drug Use History: None Reported - Past Family History Father Family Medical History: Coronary Artery Disease (CAD), Myocardial Infarction ([place]) Additional Family Medical History / Comment(s): STENT, OPEN HEART SURGERY Mother History Unknown: Yes Additional Family Medical History / Comment(s): DEPRESSION, mental illness Medications and Allergies Home Medications Medication Instructions Recorded Confirmed Type Atorvastatin [Lipitor] 80 mg PO HS 09/23/20 05/01/24 History Aspirin EC [Ecotrin Low Dose] 81 mg PO DAILY 12/12/21 05/01/24 History Clopidogrel Bisulfate [Plavix] 75 mg PO DAILY 12/12/21 05/01/24 History Insulin Lispro [humaLOG Kwikpen] 15 units SQ AC-TID #0 06/19/22 05/01/24 Rx traMADol HCL 50 mg PO BID 02/21/23 05/01/24 History Metoprolol Succinate [Toprol XL] 50 mg PO DAILY 11/02/23 05/01/24 History Omeprazole [PriLOSEC] 20 mg PO BID 11/02/23 05/01/24 History Budesonide-Formot 160-4.5 Mcg 2 puff INHALATION RT-BID 30 Days 11/05/23 05/01/24 Rx [Symbicort 160-4.5 Mcg Inhaler] #1 each Spironolactone [Aldactone] 25 mg PO DAILY 03/27/24 05/01/24 History Valsartan [Diovan] 80 mg PO DAILY 03/27/24 05/01/24 History Cholecalciferol [Vitamin D3 (125 125 mcg PO DAILY 05/01/24 05/01/24 History Mcg = 5000 Iu)] Insulin Glargine,Hum.rec.anlog 80 units SQ HS 05/01/24 05/01/24 History [Lantus Solostar Pen] Allergies Allergy/AdvReac Type Severity Reaction Status Date / Time codeine AdvReac Nausea & Verified 05/01/24 11:53 Vomiting Physical Exam Vitals: Vital Signs Temp Pulse Resp BP Pulse Ox 05/01/24 12:47 99.6 F 05/01/24 08:21 100.1 F H 71 18 140/69 94 L Intake and Output 04/30/24 05/01/24 05/01/24 22:59 06:59 14:59 Other: Weight 113.398 kg Results CBC & Chem 7: 05/01/24 09:27 05/01/24 09:27 Labs: Abnormal Lab Results - Last 24 Hours (Table) 05/01/24 05/01/24 05/01/24 Range/Units 08:36 09:27 09:27 WBC 21.4 H (3.8-10.6) k/uL Neutrophils # 19.0 H (1.3-7.7) k/uL Lymphocytes # 0.9 L (1.0-4.8) k/uL BUN 30 H (7-17) mg/dL Creatinine 1.40 H (0.52-1.04) mg/dL Glucose 162 H (74-99) mg/dL POC Glucose (mg/dL) 151 H (70-110) mg/dL Total Bilirubin 1.8 H (0.2-1.3) mg/dL Urine Appearance (Clear) Urine Protein (Negative) Urine Glucose (UA) (Negative) Ur Leukocyte Esterase (Negative) Urine RBC (0-5) /hpf Urine WBC (0-5) /hpf Urine Bacteria (None) /hpf Urine Mucus (None) /hpf SARS-CoV-2 (PCR) (Not Detectd) 05/01/24 05/01/24 Range/Units 09:27 09:27 WBC (3.8-10.6) k/uL Neutrophils # (1.3-7.7) k/uL Lymphocytes # (1.0-4.8) k/uL BUN (7-17) mg/dL Creatinine (0.52-1.04) mg/dL Glucose (74-99) mg/dL POC Glucose (mg/dL) (70-110) mg/dL Total Bilirubin (0.2-1.3) mg/dL Urine Appearance Cloudy H (Clear) Urine Protein Trace H (Negative) Urine Glucose (UA) 4+ H (Negative) Ur Leukocyte Esterase Large H (Negative) Urine RBC 16 H (0-5) /hpf Urine WBC 36 H (0-5) /hpf Urine Bacteria Rare H (None) /hpf Urine Mucus Rare H (None) /hpf SARS-CoV-2 (PCR) Detected A (Not Detectd)
[2024-05-01] MEDS ORDERED: NALOXONE 0.4 MG/ML 1 ML VIAL IV PRN (13:36)
[2024-05-01] MEDS: METOPROLOL SUCCINATE (ER) 50 MG TAB.ER.24H PO SCH (14:47)
[2024-05-01] MEDS: SODIUM CHLORIDE 0.9% 1,000 ML IV SCH (14:48)
[2024-05-01] MEDS: HEPARIN SODIUM,PORCINE 5,000 UNIT/ML 1 ML VIAL SQ SCH (16:01)
[2024-05-01 17:40] LABS: Glucose,Whole Blood 101 mg/dL (70-110)
[2024-05-01] MEDS ORDERED: DEXTROSE 50% SYRINGE 50 ML IVP PRN ×2 (18:25)
[2024-05-01] MEDS ORDERED: ACETAMINOPHEN IV (For NPO) 1,000 MG in EMPTY BAG 1 BAG IVPB PRN (18:26)
[2024-05-01] MEDS: ACETAMINOPHEN TAB 325 MG TAB PO PRN (18:28)
[2024-05-01] MEDS: PANTOPRAZOLE 40 MG TABLET PO SCH (18:28)
[2024-05-01] MEDS: INSULIN ASPART (NovoLOG) 100 UNIT/ML VIAL SQ SCH ×2 (19:42→22:40)
--- NOTE | 2024-05-01 20:12 | XR ---
EXAMINATION TYPE: XR knee limited LT DATE OF EXAM: 05/01/2024 COMPARISON: None HISTORY: Fall, pain TECHNIQUE: 2 view left knee FINDINGS: Joint space appears preserved. Vascular calcification is present. No joint effusion is evident. No acute fractures are identified. Follow up exams can be performed 7-10 days from acute trauma for continued pain. IMPRESSION: 1. No acute osseous abnormality two-view left knee
[2024-05-01] MEDS: SYMBICORT 160-4.5 MCG INHALER INHALATION SCH (20:18)
[2024-05-01] MEDS ORDERED: INSULIN DETEMIR (LEVEMIR) 100 UNIT/ML SYR SQ SCH (21:00)
--- NOTE | 2024-05-01 21:06 | CT ---
EXAMINATION TYPE: CT brain wo con DATE OF EXAM: 05/01/2024 COMPARISON: None INDICATION: fall and struck head and face DLP: 1327.4 mGycm, Automated exposure control for dose reduction was used. CONTRAST: None CT of the brain is performed utilizing 3 mm thick sections through the posterior fossa and 3 mm thick sections through the remaining calvarium. Study is performed within 24 hours of arrival to the hosp [place]. No abnormal hyperdensity is present to suggest an acute intracranial hemorrhage. There is some calcification along the left posterior falx may be a burned out meningioma. This was pr esent previously and appears stable. No acute infarcts are evident. Periventricular white matter hypodensity is present, likely on the bas is of chronic white matter ischemic changes. Ventricles and sulci are prominent for the patient age. Paranasal sinuses and mastoid air cells within the [id number] are clear. IMPRESSION: 1. No acute intracranial process. Follow up MRI can be performed as clinically indicated. 2. Atrophy with chronic appearing. Ventricular white matter ischemic type changes
[2024-05-01 21:40] LABS: Glucose,Whole Blood 194 mg/dL (70-110)
--- NOTE | 2024-05-01 21:47 | CT ---
EXAMINATION TYPE: CT facial bones wo con DATE OF EXAM: 05/01/2024 COMPARISON: None HISTORY: fall and struck head and face CT DLP: 1327.4 mGycm CONTRAST: 0 mL of Isovue 300 The paranasal sinuses are examined in the axial plane at 2 mm thick sections. Reconstructed images i n the coronal plane were obtained. There is dental amalgam scatter artifact The maxillary sinuses are clear. Mucosal thickening within ethmoid air cells. The sphenoid sinuses are clear. The frontal sinuses are clear. The septum is evaluated. There is septal deviation to the left. Bilateral sanjuana bullosa are present . The ostiomeatal units are patent. Maxillary spine is intact. Doe of the maxillary sinuses are intact. No nasal bone fractures evident . Greater wings of sphenoid and zygomatic arches are normal. Temporomandibular junctions appear anjel l. Hyperostosis frontalis internus is present, a normal variant. IMPRESSION: 1. No acute osseous abnormality facial bones
[2024-05-01] MEDS: INSULIN DETEMIR (LEVEMIR) 100 UNIT/ML SYR SQ SCH (22:40)
[2024-05-01] MEDS: ATORVASTATIN 80 MG TAB PO SCH (22:41)
[2024-05-02 07:56] LABS: African American GFR (CKD) 40 (>60 ml/min/1.73 sqM); Anion Gap 12 mmol/L; Blood Urea Nitrogen 29 mg/dL (7-17); Calcium 9.1 mg/dL (8.4-10.2); Carbon Dioxide 14 mmol/L (22-30); Chloride 113 mmol/L (98-107); Glucose 110 mg/dL (74-99); Non-African American GFR(CKD) 35 (>60 ml/min/1.73 sqM); Sodium 139 mmol/L (137-145)
[2024-05-02 07:58] LABS: Potassium 4.5 mmol/L (3.5-5.1)
--- NOTE | 2024-05-02 08:12 | P.CONS ---
History of Present Illness - Reason for Consult Consult date: 05/01/24 Facial cellulitis Requesting physician: Raúl Tan - Chief Complaint Confusion and fall x 1 day - History of Present Illness Patient is a 74-year-old female with a past medical history significant for diabetes mellitus hypertension hyperlipidemia dementia heart failure with COPD coronary artery disease patient has been brought into the hospital concerning for fall and confusion apparently the patient has fallen lightheaded and fell forward on arrival of the EMS the patient was noted to be running a low-grade fever patient was brought into the hospital on arrival to the ER the patient did have a temperature of 100.1 degrees warm right patient was nontachycardic hypotensive or hypoxic patient did have white count of 21.4 with a left shift BUN and creatinine has been mildly elevated liver isms are normal urine was positive patient tested positive for COVID-19 patient did have a head and cervical spine CT no acute intracranial abnormality no acute fracture or malalignment of the cervical spine chest x-ray no acute process patient was noticed to have erythema to the face CT concerning for facial cellulitis or the patient has been started on cefazolin infectious was consulted for further management patient herself not a very good historian she has been complaining of some pain to the facial area but unable to quantify it any further patient denies having any headache or URI symptoms no chest pain shortness of breath or cough no vomiting or diarrhea patient is currently not hypoxic or requiring supplemental oxygen Review of Systems Positive points has been mentioned in HPI complete review could not be obtained because of his underlying mental status Past Medical History Past Medical History: Asthma, Coronary Artery Disease (CAD), Chest Pain / Angina, Heart Failure, COPD, CVA/TIA, Dementia, Diabetes Mellitus, Hyperlipidemia, Hypertension, Myocardial Infarction (NH), Pneumonia, Respiratory Disorder, Syncope, Vascular Disorder Additional Past Medical History / Comment(s): IDDM type II, neuropathy bilateral feet, 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, R caratid artery disease, valvular disease, pulmonary htn, bronchitis, home oxygen prn, poor vision/pt cannot recall reason, UTIs, rash/itching, WAS SEEN IN ER 12/2022 FOR N/V Last Myocardial Infarction Date:: 2014 History of Any Multi-Drug Resistant Organisms: ESBL Year Discovered:: 04/15/21 MDRO Source:: ESBL URINE Past Surgical History: Cholecystectomy, Coronary Bypass/CABG, Heart Catheterization With Stent Additional Past Surgical History / Comment(s): PCI/stents in 2009 and 2014, 2017 CABG 3 vessel then sternal debridement for infection/removal of hardware, colonoscopy, bilateral cataract removals. Past Anesthesia/Blood Transfusion Reactions: No Reported Reaction Additional Past Anesthesia/Blood Transfusion Reaction / Comm: Claustrophobic Date of Last Stent Placement:: 2014 Past Psychological History: No Psychological Hx Reported Smoking Status: Former smoker Past Alcohol Use History: None Reported Past Drug Use History: None Reported - Past Family History Father Family Medical History: Coronary Artery Disease (CAD), Myocardial Infarction (NH) Additional Family Medical History / Comment(s): STENT, OPEN HEART SURGERY Mother History Unknown: Yes Additional Family Medical History / Comment(s): DEPRESSION, mental illness Medications and Allergies Home Medications Medication Instructions Recorded Confirmed Type Atorvastatin [Lipitor] 80 mg PO HS 09/23/20 05/01/24 History Aspirin EC [Ecotrin Low Dose] 81 mg PO DAILY 12/12/21 05/01/24 History Clopidogrel Bisulfate [Plavix] 75 mg PO DAILY 12/12/21 05/01/24 History Insulin Lispro [humaLOG Kwikpen] 15 units SQ AC-TID #0 06/19/22 05/01/24 Rx traMADol HCL 50 mg PO BID 02/21/23 05/01/24 History Metoprolol Succinate [Toprol XL] 50 mg PO DAILY 11/02/23 05/01/24 History Omeprazole [PriLOSEC] 20 mg PO BID 11/02/23 05/01/24 History Budesonide-Formot 160-4.5 Mcg 2 puff INHALATION RT-BID 30 Days 11/05/23 05/01/24 Rx [Symbicort 160-4.5 Mcg Inhaler] #1 each Spironolactone [Aldactone] 25 mg PO DAILY 03/27/24 05/01/24 History Valsartan [Diovan] 80 mg PO DAILY 03/27/24 05/01/24 History Cholecalciferol [Vitamin D3 (125 125 mcg PO DAILY 05/01/24 05/01/24 History Mcg = 5000 Iu)] Insulin Glargine,Hum.rec.anlog 80 units SQ HS 05/01/24 05/01/24 History [Lantus Solostar Pen] Allergies Allergy/AdvReac Type Severity Reaction Status Date / Time codeine AdvReac Nausea & Verified 05/01/24 11:53 Vomiting Physical Exam Vitals: Vital Signs Temp Pulse Resp BP Pulse Ox 05/01/24 14:57 62 149/51 05/01/24 14:49 65 16 145/37 05/01/24 12:47 99.6 F 05/01/24 08:21 100.1 F H 71 18 140/69 94 L Intake and Output 05/01/24 05/01/24 05/01/24 06:59 14:59 22:59 Other: Weight 113.398 kg GENERAL DESCRIPTION: Elderly female lying in bed, no distress. No tachypnea or accessory muscle of respiration use. HEENT: Shows Pallor , no scleral icterus. Oral mucous membrane is dry. No pharyngeal erythema or thrush NECK: Trachea central, no thyromegaly. LUNGS: Unlabored breathing. Clear to auscultation anteriorly. No wheeze or crackle. HEART: S1, S2, regular rate and rhythm. No loud murmur ABDOMEN: Soft, no tenderness , guarding or rigidity, no organomegaly EXTREMITIES: No edema of feet. SKIN: Did have erythema to the facial area mostly in the periorbital region no vesicles NEUROLOGICAL: The patient is awake, alert, oriented x1, mood and affect normal. Results CBC & Chem 7: 05/01/24 09:27 05/02/24 05:23 Labs: Abnormal Lab Results - Last 24 Hours (Table) 05/01/24 05/01/24 05/01/24 Range/Units 08:36 09:27 09:27 WBC 21.4 H (3.8-10.6) k/uL Neutrophils # 19.0 H (1.3-7.7) k/uL Lymphocytes # 0.9 L (1.0-4.8) k/uL BUN 30 H (7-17) mg/dL Creatinine 1.40 H (0.52-1.04) mg/dL Glucose 162 H (74-99) mg/dL POC Glucose (mg/dL) 151 H (70-110) mg/dL Total Bilirubin 1.8 H (0.2-1.3) mg/dL Urine Appearance (Clear) Urine Protein (Negative) Urine Glucose (UA) (Negative) Ur Leukocyte Esterase (Negative) Urine RBC (0-5) /hpf Urine WBC (0-5) /hpf Urine Bacteria (None) /hpf Urine Mucus (None) /hpf SARS-CoV-2 (PCR) (Not Detectd) 05/01/24 05/01/24 Range/Units 09:27 09:27 WBC (3.8-10.6) k/uL Neutrophils # (1.3-7.7) k/uL Lymphocytes # (1.0-4.8) k/uL BUN (7-17) mg/dL Creatinine (0.52-1.04) mg/dL Glucose (74-99) mg/dL POC Glucose (mg/dL) (70-110) mg/dL Total Bilirubin (0.2-1.3) mg/dL Urine Appearance Cloudy H (Clear) Urine Protein Trace H (Negative) Urine Glucose (UA) 4+ H (Negative) Ur Leukocyte Esterase Large H (Negative) Urine RBC 16 H (0-5) /hpf Urine WBC 36 H (0-5) /hpf Urine Bacteria Rare H (None) /hpf Urine Mucus Rare H (None) /hpf SARS-CoV-2 (PCR) Detected A (Not Detectd) Assessment and Plan (1) COVID Current Visit: Yes Status: Acute Code(s): U07.1 - COVID-19 SNOMED Code(s): 887061952 (2) Facial cellulitis Current Visit: Yes Status: Acute Code(s): L03.211 - CELLULITIS OF FACE SNOMED Code(s): 081784063 (3) Leukocytosis Current Visit: Yes Status: Acute Code(s): D72.829 - ELEVATED WHITE BLOOD CELL COUNT, UNSPECIFIED SNOMED Code(s): 522588731 Plan: 1patient presented to hospital with sepsis in this patient who did have fever elevated white count and evidence of facial erythema concerning for facial cellulitis likely from gram-positive skin basilio patient also have a positive UA however very hard to get any history from this patient because of underlying dementia underlying urinary source responsible for the sepsis bilateral excluded. 2patient did tested positive for COVID-19 however the patient did not have significant respiratory symptoms chest x-ray was negative not requiring any supplemental oxygen treatment is mostly supportive with no need for remdesivir or steroids 3-cefazolin 2 g every 8 hours while waiting for the culture to finalize We will follow on clinical condition and cultures to further adjust medication if needed Thank you for this consultation we will follow the patient along with you Dictation was produced using [employer] dictation software. please excuse any grammatical, word or spelling errors. Time with Patient: Greater than 30
[2024-05-02] MEDS ORDERED: ENOXAPARIN 40 MG/0.4 ML SYRINGE SQ SCH (09:00)
[2024-05-02] MEDS ORDERED: CLOPIDOGREL 75 MG TAB PO SCH (09:00)
[2024-05-02 09:11] LABS: HCT 36.3 % (37.2-46.3); HGB 11.2 g/dL (12.0-15.0); MCH 30.5 pg (27.0-32.0); MCHC 30.9 g/dL (32.0-37.0); MCV 98.9 FL (80.0-97.0); NRBC Per 100 WBC 0 X 10*3/uL (0.00-0.01); Platelet Count 262 X 10*3/uL (140-440); RBC 3.67 X 10*6/uL (4.10-5.20); RDW 14.4 % (11.5-14.5); WBC 16.73 X 10*3/uL (4.50-10.00)
[2024-05-02] MEDS: ASPIRIN 81 MG PO SCH (11:05)
[2024-05-02 11:34] LABS: Glucose,Whole Blood 75 mg/dL (70-110)
--- NOTE | 2024-05-02 11:48 | P.PN ---
Subjective 74-year-old female was brought in because of complaints of lightheadedness radiation and is found to be febrile with a temperature going above 101 and chills. Patient denies any cough or abdominal pain nausea vomiting diarrhea patient denies any dysuria patient is found to have cellulitis of the left side of the face never had any MRSA infection in the past patient does not have any caries tooth or dental infection. Patient facial cellulitis involves the entire left cheek extending to lower periorbital area on the left side. Patient COVID- 19 is positive although patient was diagnosed with COVID-19 pretty recently and this is residual from that. Patient denies any shortness of breath. Patient does have elevated white count of 21,400. Serum creatinine is around 1.4 this appears to be patient's baseline patient does use Aldactone and an angiotensin receptor maru at home. May 02, 2024 Patient cellulitis is improving at this time. Continue with IV cefazolin serum creatinine remained stable discontinued IV fluids. Patient probably has chronic kidney disease white count did improve from 21,000-16,000. REVIEW OF SYSTEMS: All other systems are negative except those mentioned in the HPI PHYSICAL EXAMINATION: GENERAL: The patient is alert and oriented x3, not in any acute distress. Well developed, well nourished. Obese HEENT: Pupils are round and equally reacting to light. EOMI. No scleral icterus. No conjunctival pallor. Normocephalic, atraumatic. No pharyngeal erythema. No thyromegaly. CARDIOVASCULAR: S1 and S2 present. No murmurs, rubs, or gallops. PULMONARY: Chest is clear to auscultation, no wheezing or crackles. ABDOMEN: Soft, nontender, nondistended, normoactive bowel sounds. No palpable organomegaly. MUSCULOSKELETAL: No joint swelling or deformity. EXTREMITIES: No cyanosis, clubbing, or pedal edema. NEUROLOGICAL: Gross neurological examination did not reveal any focal deficits. SKIN: Cellulitis of the left side of the face as mentioned above Assessment and plan -Sepsis: Secondary to left-sided facial cellulitis patient will be started on cefazolin which is being continued with improvement in leukocytosis -Chronic kidney disease stage III with mild acute renal failure IV fluids as mentioned above -Leukocytosis secondary to assessment #1 -Coronary artery disease for which patient will be resumed on home regimen -COPD without any acute exacerbation -Obesity -Type 2 diabetes mellitus patient will be started on home regimen of 80 units of long-acting insulin along with 15 units with each meal and high-dose sliding scale -Diabetic nephropathy and peripheral neuropathy -Hyperlipidemia -Hypertension DVT prophylaxis heparin subcutaneous 3 times daily Objective - Vital Signs Vital signs: Vital Signs Temp 97.3 F L 05/02/24 08:03 Pulse 64 05/02/24 08:03 Resp 16 05/02/24 08:03 BP 134/49 05/02/24 08:03 Pulse Ox 97 05/02/24 08:03 FiO2 Intake & Output 05/01/24 05/02/24 05/02/24 18:59 06:59 18:59 Weight 113.398 kg 113.398 kg Other: Voiding Method External Catheter - Labs CBC & Chem 7: 05/02/24 05:23 05/02/24 05:23 Labs: Abnormal Lab Results - Last 24 Hours (Table) 05/01/24 05/01/24 05/02/24 Range/Units 09:27 21:29 05:23 WBC (4.50-10.00) X 10*3/uL RBC (4.10-5.20) X 10*6/uL Hgb (12.0-15.0) g/dL Hct (37.2-46.3) % MCV (80.0-97.0) FL MCHC (32.0-37.0) g/dL Chloride (98-107) mmol/L Carbon Dioxide (22-30) mmol/L BUN (7-17) mg/dL Creatinine (0.52-1.04) mg/dL Glucose (74-99) mg/dL POC Glucose (mg/dL) 194 H (70-110) mg/dL Hemoglobin A1c 8.7 H (<=6.0) % Urine Appearance Cloudy H (Clear) Urine Protein Trace H (Negative) Urine Glucose (UA) 4+ H (Negative) Ur Leukocyte Esterase Large H (Negative) Urine RBC 16 H (0-5) /hpf Urine WBC 36 H (0-5) /hpf Urine Bacteria Rare H (None) /hpf Urine Mucus Rare H (None) /hpf 05/02/24 05/02/24 Range/Units 05:23 05:23 WBC 16.73 H (4.50-10.00) X 10*3/uL RBC 3.67 L (4.10-5.20) X 10*6/uL Hgb 11.2 L (12.0-15.0) g/dL Hct 36.3 L (37.2-46.3) % MCV 98.9 H (80.0-97.0) FL MCHC 30.9 L (32.0-37.0) g/dL Chloride 113 H (98-107) mmol/L Carbon Dioxide 14 L (22-30) mmol/L BUN 29 H (7-17) mg/dL Creatinine 1.47 H (0.52-1.04) mg/dL Glucose 110 H (74-99) mg/dL POC Glucose (mg/dL) (70-110) mg/dL Hemoglobin A1c (<=6.0) % Urine Appearance (Clear) Urine Protein (Negative) Urine Glucose (UA) (Negative) Ur Leukocyte Esterase (Negative) Urine RBC (0-5) /hpf Urine WBC (0-5) /hpf Urine Bacteria (None) /hpf Urine Mucus (None) /hpf
--- NOTE | 2024-05-02 14:45 | P.PN ---
Subjective Progress Note Date: 05/02/24 Principal diagnosis: Reason for follow-up is COVID-19 and facial cellulitis Patient is a 74-year-old female with a past medical history significant for diabetes mellitus hypertension hyperlipidemia dementia heart failure with COPD coronary artery disease patient has been brought into the hospital concerning for fall and confusion patient did test positive for COVID-1 9 did have a component of facial cellulitis and did have a positive UA. On today's evaluation that is 05/02/2024,the patient did have low-grade fever 100.7 last evening the patient is afebrile today the patient is sleepy and did not answer any question not requiring any supplemental oxygen no vomiting diarrhea or any other changes reported by the nursing staff. Patient white count is down to 16.73, creatinine is 1.47 Objective - Vital Signs Vital signs: Vital Signs Temp 97.3 F L 05/02/24 08:03 Pulse 64 05/02/24 08:03 Resp 16 05/02/24 08:03 BP 134/49 05/02/24 08:03 Pulse Ox 97 05/02/24 08:03 FiO2 Intake & Output 05/01/24 05/02/24 05/02/24 18:59 06:59 18:59 Weight 113.398 kg 113.398 kg Other: Voiding Method External Catheter - Exam GENERAL DESCRIPTION: An elderly female lying in bed in no distress HEENT; facial redness slightly decreased RESPIRATORY SYSTEM: Unlabored breathing , decreased breath sounds at bases HEART: S1 S2 regular rate and rhythm , ABDOMEN: Soft , no tenderness EXTREMITIES: No edema feet - Labs CBC & Chem 7: 05/02/24 05:23 05/02/24 05:23 Labs: Abnormal Lab Results - Last 24 Hours (Table) 05/01/24 05/02/24 05/02/24 Range/Units 21:29 05:23 05:23 WBC 16.73 H (4.50-10.00) X 10*3/uL RBC 3.67 L (4.10-5.20) X 10*6/uL Hgb 11.2 L (12.0-15.0) g/dL Hct 36.3 L (37.2-46.3) % MCV 98.9 H (80.0-97.0) FL MCHC 30.9 L (32.0-37.0) g/dL Chloride (98-107) mmol/L Carbon Dioxide (22-30) mmol/L BUN (7-17) mg/dL Creatinine (0.52-1.04) mg/dL Glucose (74-99) mg/dL POC Glucose (mg/dL) 194 H (70-110) mg/dL Hemoglobin A1c 8.7 H (<=6.0) % 05/02/24 Range/Units 05:23 WBC (4.50-10.00) X 10*3/uL RBC (4.10-5.20) X 10*6/uL Hgb (12.0-15.0) g/dL Hct (37.2-46.3) % MCV (80.0-97.0) FL MCHC (32.0-37.0) g/dL Chloride 113 H (98-107) mmol/L Carbon Dioxide 14 L (22-30) mmol/L BUN 29 H (7-17) mg/dL Creatinine 1.47 H (0.52-1.04) mg/dL Glucose 110 H (74-99) mg/dL POC Glucose (mg/dL) (70-110) mg/dL Hemoglobin A1c (<=6.0) % Microbiology - Last 24 Hours (Table) 05/01/24 09:27 Urine Culture - Final Urine,Voided Assessment and Plan (1) COVID Current Visit: Yes Status: Acute Code(s): U07.1 - COVID-19 SNOMED Code(s): 253944533 (2) Facial cellulitis Current Visit: Yes Status: Acute Code(s): L03.211 - CELLULITIS OF FACE SNOMED Code(s): 536769979 (3) Leukocytosis Current Visit: Yes Status: Acute Code(s): D72.829 - ELEVATED WHITE BLOOD CELL COUNT, UNSPECIFIED SNOMED Code(s): 507406530 Plan: 1patient presented to hospital with sepsis in this patient who did have fever elevated white count and evidence of facial erythema concerning for facial carlos lulitis likely from gram-positive skin basilio patient also have a positive UA however very hard to get any history from this patient because of underlying dementia underlying urinary source responsible for the sepsis not entirely excluded. 2patient did tested positive for COVID-19 however the patient did not have significant respiratory symptoms chest x-ray was negative not requiring any supplemental oxygen treatment is mostly supportive with no need for remdesivir or steroids 3-patient white count is trending down, we will continue cefazolin 2 g every 8 hours while waiting for the culture to finalize Dictation was produced using [employer] dictation software. please excuse any grammatical, word or spelling errors. Time with Patient: Less than 30
[2024-05-02 16:53] LABS: Glucose,Whole Blood 143 mg/dL (70-110)
[2024-05-02 21:05] LABS: Glucose,Whole Blood 142 mg/dL (70-110)
[2024-05-03 02:16] LABS: Glucose,Whole Blood 123 mg/dL (70-110)
[2024-05-03 05:42] LABS: Glucose,Whole Blood 96 mg/dL (70-110)
[2024-05-03 06:50] LABS: HCT 34.4 % (34.0-46.0); MCH 30.2 pg (25.0-35.0); MCV 94.3 fL (80.0-100.0); Mean Platelet Volume 8.7; Platelet Count 319 k/uL (150-450); RBC 3.64 m/uL (3.80-5.40); RDW 14.2 % (11.5-15.5); WBC 17.7 k/uL (3.8-10.6)
[2024-05-03 07:04] LABS: African American GFR (CKD) 49 (>60 ml/min/1.73 sqM); Anion Gap 9 mmol/L; Blood Urea Nitrogen 23 mg/dL (7-17); Carbon Dioxide 19 mmol/L (22-30); Chloride 111 mmol/L (98-107); Glucose 103 mg/dL (74-99); Non-African American GFR(CKD) 43 (>60 ml/min/1.73 sqM); Potassium 4.3 mmol/L (3.5-5.1); Sodium 139 mmol/L (137-145)
[2024-05-03 11:41] LABS: Glucose,Whole Blood 108 mg/dL (70-110)
--- NOTE | 2024-05-03 14:12 | P.PN ---
Subjective Progress Note Date: 05/03/24 Principal diagnosis: Reason for follow-up is COVID-19 and facial cellulitis Patient is a 74-year-old female with a past medical history significant for diabetes mellitus hypertension hyperlipidemia dementia heart failure with COPD coronary artery disease patient has been brought into the hospital concerning for fall and confusion patient did test positive for COVID-1 9 did have a component of facial cellulitis and did have a positive UA. On today's evaluation that is 05/03/2024,the patient remains to be afebrile, patient is on room air not requiring supplemental oxygen and denies any shortness of breath no chest pain, occasional dry, mention feeling better. Cough.Patient denies having any nausea or vomiting, no abdominal pain and no diarrhea has been reported patient white count is 17.7, creatinine is 1.25 blood and urine culture have been negative Objective - Vital Signs Vital signs: Vital Signs Temp 99.0 F 05/03/24 07:34 Pulse 73 05/03/24 07:34 Resp 18 05/03/24 07:34 BP 170/77 05/03/24 07:34 Pulse Ox 97 05/03/24 07:34 FiO2 Intake & Output 05/02/24 05/03/24 05/03/24 18:59 06:59 18:59 Intake Total 350 Output Total 700 200 850 Balance -350 -200 -850 Intake: Intake, IV Titration 350 Amount Sodium Chloride 0.9% 1, 300 000 ml @ 75 mls/hr IV . [id number] KAREN Rx#:[id number] ceFAZolin 2 gm In Sodium 50 Chloride 0.9% 50 ml @ 100 mls/hr IVPB Q12HR KAREN Rx #:[id number] Output: Urine 700 200 850 Other: Voiding Method External Catheter Diaper Incontinent External Catheter # Voids 1 # Bowel Movements 1 1 - Exam GENERAL DESCRIPTION: An elderly female lying in bed in no distress HEENT; facial redness slightly decreased RESPIRATORY SYSTEM: Unlabored breathing , decreased breath sounds at bases HEART: S1 S2 regular rate and rhythm , ABDOMEN: Soft , no tenderness EXTREMITIES: No edema feet - Labs CBC & Chem 7: 05/03/24 06:01 05/03/24 06:01 Labs: Abnormal Lab Results - Last 24 Hours (Table) 05/02/24 05/02/24 05/03/24 Range/Units 16:52 21:00 02:15 WBC (3.8-10.6) k/uL RBC (3.80-5.40) m/uL Hgb (11.4-16.0) gm/dL Chloride (98-107) mmol/L Carbon Dioxide (22-30) mmol/L BUN (7-17) mg/dL Creatinine (0.52-1.04) mg/dL Glucose (74-99) mg/dL POC Glucose (mg/dL) 143 H 142 H 123 H (70-110) mg/dL 05/03/24 05/03/24 Range/Units 06:01 06:01 WBC 17.7 H (3.8-10.6) k/uL RBC 3.64 L (3.80-5.40) m/uL Hgb 11.0 L (11.4-16.0) gm/dL Chloride 111 H (98-107) mmol/L Carbon Dioxide 19 L (22-30) mmol/L BUN 23 H (7-17) mg/dL Creatinine 1.25 H (0.52-1.04) mg/dL Glucose 103 H (74-99) mg/dL POC Glucose (mg/dL) (70-110) mg/dL Microbiology - Last 24 Hours (Table) 05/01/24 09:27 Blood Culture - Preliminary Blood 05/01/24 09:27 Urine Culture - Final Urine,Voided Assessment and Plan (1) COVID Current Visit: Yes Status: Acute Code(s): U07.1 - COVID-19 SNOMED Code(s): 542396889 (2) Facial cellulitis Current Visit: Yes Status: Acute Code(s): L03.211 - CELLULITIS OF FACE SNOMED Code(s): 387675617 (3) Leukocytosis Current Visit: Yes Status: Acute Code(s): D72.829 - ELEVATED WHITE BLOOD CELL COUNT, UNSPECIFIED SNOMED Code(s): 503618323 Plan: 1patient presented to hospital with sepsis in this patient who did have fever elevated white count and evidence of facial erythema concerning for facial cellulitis likely from gram-positive skin basilio patient also have a positive UA however very hard to get any history from this patient because of underlying dementia underlying urinary source responsible for the sepsis not entirely excluded. 2patient did tested positive for COVID-19 however the patient did not have significant respiratory symptoms chest x-ray was negative not requiring any supplemental oxygen treatment is mostly supportive with no need for remdesivir or steroids 3-patient did have clinical improvement room in the cellulitis however worsening of the white count we will switch antibiotic to Unasyn and repeat a CBC with a.m. lab Dictation was produced using [employer] dictation software. please excuse any grammatical, word or spelling errors. Time with Patient: Less than 30
[2024-05-03] MEDS: SODIUM CHLORIDE 0.9% 1,000 ML IV SCH (15:32)
[2024-05-03] MEDS: AMPICILLIN-SULBACTAM 3 GM in SODIUM CHLORIDE 0.9% 100 ML IVPB SCH (15:33)
[2024-05-03] MEDS: VALSARTAN 80 MG TAB PO SCH (15:35)
[2024-05-03 16:55] LABS: Glucose,Whole Blood 67 mg/dL (70-110)
[2024-05-03 17:31] LABS: Glucose,Whole Blood 85 mg/dL (70-110)
[2024-05-03 20:49] LABS: Glucose,Whole Blood 178 mg/dL (70-110)
--- NOTE | 2024-05-03 22:40 | P.PN ---
Subjective Progress Note Date: 05/03/24 74-year-old female was brought in because of complaints of lightheadedness radiation and is found to be febrile with a temperature going above 101 and chills. Patient denies any cough or abdominal pain nausea vomiting diarrhea patient denies any dysuria patient is found to have cellulitis of the left side of the face never had any MRSA infection in the past patient does not have any caries tooth or dental infection. Patient facial cellulitis involves the entire left cheek extending to lower periorbital area on the left side. Patient COVID- 19 is positive although patient was diagnosed with COVID-19 pretty recently and this is residual from that. Patient denies any shortness of breath. Patient does have elevated white count of 21,400. Serum creatinine is around 1.4 this appears to be patient's baseline patient does use Aldactone and an angiotensin receptor maru at home. May 02, 2024 Patient cellulitis is improving at this time. Continue with IV cefazolin serum creatinine remained stable discontinued IV fluids. Patient probably has chronic kidney disease white count did improve from 21,000-16,000. 05/03/2024 Patient is drowsy and weak. Afebrile. Currently on room air. No episodes of nausea or vomiting. No chest pain or shortness of breath. Blood sugar down to 85 this afternoon. Otherwise laboratory data showed WBC 17.7 hemoglobin 11.0 and platelets 319 sodium 139 potassium 4.3 chloride 101 bicarb is 19 BUN 23 and creatinine 1.25 and blood sugar 103. Urine culture showed 50-100,000 skin basilio. Blood cultures negative so far. Antibiotics changed to Unasyn. ID is on board. Current medications reviewed. REVIEW OF SYSTEMS: All other systems are negative except those mentioned in the HPI PHYSICAL EXAMINATION: GENERAL: The patient is alert and oriented x3, not in any acute distress. Well developed, well nourished. Obese HEENT: Pupils are round and equally reacting to light. EOMI. No scleral icterus. No conjunctival pallor. Normocephalic, atraumatic. No pharyngeal erythema. No thyromegaly. CARDIOVASCULAR: S1 and S2 present. No murmurs, rubs, or gallops. PULMONARY: Chest is clear to auscultation, no wheezing or crackles. ABDOMEN: Soft, nontender, nondistended, normoactive bowel sounds. No palpable organomegaly. MUSCULOSKELETAL: No joint swelling or deformity. EXTREMITIES: No cyanosis, clubbing, or pedal edema. NEUROLOGICAL: Gross neurological examination did not reveal any focal deficits. SKIN: Cellulitis of the left side of the face as mentioned above Assessment and plan -Sepsis: Secondary to left-sided facial cellulitis patient will be started on cefazolin which is being continued with improvement in leukocytosis -Chronic kidney disease stage III with mild acute renal failure IV fluids as mentioned above -Leukocytosis secondary to assessment #1 -Coronary artery disease for which patient will be resumed on home regimen -COPD without any acute exacerbation -Obesity -Type 2 diabetes mellitus patient is on home regimen of 80 units of long-acting insulin along with 15 units with each meal and high-dose sliding scale. Reduce it to Levemir 17 units daily and sliding scale due to hypoglycemic episodes. -Diabetic nephropathy and peripheral neuropathy -Hyperlipidemia -Hypertension DVT prophylaxis heparin subcutaneous 3 times daily Objective - Vital Signs Vital signs: Vital Signs Temp 99.5 F 05/03/24 19:34 Pulse 65 05/03/24 19:34 Resp 16 05/03/24 19:34 BP 152/56 05/03/24 19:34 Pulse Ox 99 05/03/24 19:34 FiO2 Intake & Output 05/03/24 05/03/24 05/04/24 06:59 18:59 06:59 Intake Total 150 Output Total 200 850 Balance -200 -700 Intake: IV 150 Sodium Chloride 0.9% 1, 150 000 ml @ 50 mls/hr IV . Q20H [facility] Rx#:[id number] Output: Urine 200 850 Other: Voiding Method Diaper Incontinent External Catheter # Voids 1 # Bowel Movements 1 1 - Labs CBC & Chem 7: 05/03/24 06:01 05/03/24 06:01 Labs: Abnormal Lab Results - Last 24 Hours (Table) 05/03/24 05/03/24 05/03/24 Range/Units 02:15 06:01 06:01 WBC 17.7 H (3.8-10.6) k/uL RBC 3.64 L (3.80-5.40) m/uL Hgb 11.0 L (11.4-16.0) gm/dL Chloride 111 H (98-107) mmol/L Carbon Dioxide 19 L (22-30) mmol/L BUN 23 H (7-17) mg/dL Creatinine 1.25 H (0.52-1.04) mg/dL Glucose 103 H (74-99) mg/dL POC Glucose (mg/dL) 123 H (70-110) mg/dL 05/03/24 05/03/24 Range/Units 16:54 20:47 WBC (3.8-10.6) k/uL RBC (3.80-5.40) m/uL Hgb (11.4-16.0) gm/dL Chloride (98-107) mmol/L Carbon Dioxide (22-30) mmol/L BUN (7-17) mg/dL Creatinine (0.52-1.04) mg/dL Glucose (74-99) mg/dL POC Glucose (mg/dL) 67 L 178 H (70-110) mg/dL Microbiology - Last 24 Hours (Table) 05/01/24 09:27 Blood Culture - Preliminary Blood
[2024-05-04 01:59] LABS: Glucose,Whole Blood 136 mg/dL (70-110)
[2024-05-04 06:07] LABS: Glucose,Whole Blood 112 mg/dL (70-110)
[2024-05-04 10:25] LABS: Basophils % (A) 0.6 %; Eosinophils # (A) 0.53 X 10*3/uL (0.04-0.35); Eosinophils % (A) 3.2 %; HCT 29.4 % (37.2-46.3); HGB 9.1 g/dL (12.0-15.0); Lymphocytes % (A) 12.7 %; MCH 30.2 pg (27.0-32.0); MCV 97.7 FL (80.0-97.0); Mean Platelet Volume 10.3 FL (9.5-12.2); Monocytes # (A) 1.49 X 10*3/uL (0.20-1.00); NRBC Per 100 WBC 0 X 10*3/uL (0.00-0.01); Neutrophils # (A) 12.08 X 10*3/uL (1.80-7.70); Neutrophils % (A) 72.8 %; Platelet Count 338 X 10*3/uL (140-440); RBC 3.01 X 10*6/uL (4.10-5.20); RDW 14.4 % (11.5-14.5); WBC 16.59 X 10*3/uL (4.50-10.00)
[2024-05-04 11:58] LABS: Blood Urea Nitrogen 19.6 mg/dL (9.0-27.0); Calcium 8.5 mg/dL (8.7-10.3); Carbon Dioxide 20.2 mmol/L (21.6-31.8); Chloride 111 mmol/L (96-109); Glucose 108 mg/dL (70-110); Potassium 3.8 mmol/L (3.5-5.5); Sodium 143 mmol/L (135-145)
[2024-05-04 12:04] LABS: Glucose,Whole Blood 144 mg/dL (70-110)
--- NOTE | 2024-05-04 14:43 | P.PN ---
Subjective Progress Note Date: 05/04/24 Principal diagnosis: Reason for follow-up is COVID-19 and facial cellulitis Patient is a 74-year-old female with a past medical history significant for diabetes mellitus hypertension hyperlipidemia dementia heart failure with COPD coronary artery disease patient has been brought into the hospital concerning for fall and confusion patient did test positive for COVID-1 9 did have a component of facial cellulitis and did have a positive UA. On today's evaluation that is 05/04/2024, the patient continues to be afebrile, the patient is on room air and breathing comfortably, the Pt denies having any chest pain did have occasional dry cough, the patient denies having any abdominal pain no vomiting or any diarrhea has been reported by the nursing staff. Patient white count started to 16.59, creatinine is 1.4 CRP 8.5 Objective - Vital Signs Vital signs: Vital Signs Temp 99.0 F 05/04/24 07:08 Pulse 62 05/04/24 09:18 Resp 18 05/04/24 07:08 BP 142/72 05/04/24 07:08 Pulse Ox 92 L 05/04/24 07:08 FiO2 Intake & Output 05/03/24 05/04/24 05/04/24 18:59 06:59 18:59 Intake Total 150 Output Total 850 600 Balance -700 -600 Intake: IV 150 Sodium Chloride 0.9% 1, 150 000 ml @ 50 mls/hr IV . Q20H [facility] Rx#:[id number] Output: Urine 850 600 Other: Voiding Method Diaper Diaper Incontinent Incontinent External Catheter External Catheter # Voids 1 # Bowel Movements 1 1 - Exam GENERAL DESCRIPTION: An elderly female lying in bed in no distress HEENT; facial redness slightly decreased RESPIRATORY SYSTEM: Unlabored breathing , decreased breath sounds at bases HEART: S1 S2 regular rate and rhythm , ABDOMEN: Soft , no tenderness EXTREMITIES: No edema feet - Labs CBC & Chem 7: 05/04/24 06:21 05/04/24 06:21 Labs: Abnormal Lab Results - Last 24 Hours (Table) 05/03/24 05/03/24 05/04/24 Range/Units 16:54 20:47 01:58 WBC (4.50-10.00) X 10*3/uL RBC (4.10-5.20) X 10*6/uL Hgb (12.0-15.0) g/dL Hct (37.2-46.3) % MCV (80.0-97.0) FL MCHC (32.0-37.0) g/dL Immature Gran # (0.00-0.04) X 10*3/uL Neutrophils # (1.80-7.70) X 10*3/uL Monocytes # (0.20-1.00) X 10*3/uL Eosinophils # (0.04-0.35) X 10*3/uL Chloride (96-109) mmol/L Carbon Dioxide (21.6-31.8) mmol/L Est GFR (CKD-EPI) (>=60) POC Glucose (mg/dL) 67 L 178 H 136 H (70-110) mg/dL Calcium (8.7-10.3) mg/dL C-Reactive Protein (0.00-0.80) mg/dL 05/04/24 05/04/24 05/04/24 Range/Units 06:06 06:21 06:21 WBC 16.59 H (4.50-10.00) X 10*3/uL RBC 3.01 L (4.10-5.20) X 10*6/uL Hgb 9.1 L (12.0-15.0) g/dL Hct 29.4 L (37.2-46.3) % MCV 97.7 H (80.0-97.0) FL MCHC 31.0 L (32.0-37.0) g/dL Immature Gran # 0.29 H (0.00-0.04) X 10*3/uL Neutrophils # 12.08 H (1.80-7.70) X 10*3/uL Monocytes # 1.49 H (0.20-1.00) X 10*3/uL Eosinophils # 0.53 H (0.04-0.35) X 10*3/uL Chloride 111 H (96-109) mmol/L Carbon Dioxide 20.2 L (21.6-31.8) mmol/L Est GFR (CKD-EPI) 39 L (>=60) POC Glucose (mg/dL) 112 H (70-110) mg/dL Calcium 8.5 L (8.7-10.3) mg/dL C-Reactive Protein 8.50 H (0.00-0.80) mg/dL 05/04/24 Range/Units 12:02 WBC (4.50-10.00) X 10*3/uL RBC (4.10-5.20) X 10*6/uL Hgb (12.0-15.0) g/dL Hct (37.2-46.3) % MCV (80.0-97.0) FL MCHC (32.0-37.0) g/dL Immature Gran # (0.00-0.04) X 10*3/uL Neutrophils # (1.80-7.70) X 10*3/uL Monocytes # (0.20-1.00) X 10*3/uL Eosinophils # (0.04-0.35) X 10*3/uL Chloride (96-109) mmol/L Carbon Dioxide (21.6-31.8) mmol/L Est GFR (CKD-EPI) (>=60) POC Glucose (mg/dL) 144 H (70-110) mg/dL Calcium (8.7-10.3) mg/dL C-Reactive Protein (0.00-0.80) mg/dL Microbiology - Last 24 Hours (Table) 05/01/24 09:27 Blood Culture - Preliminary Blood Assessment and Plan (1) COVID Current Visit: Yes Status: Acute Code(s): U07.1 - COVID-19 SNOMED Code(s): 510286658 (2) Facial cellulitis Current Visit: Yes Status: Acute Code(s): L03.211 - CELLULITIS OF FACE SNOMED Code(s): 291531205 (3) Leukocytosis Current Visit: Yes Status: Acute Code(s): D72.829 - ELEVATED WHITE BLOOD CELL COUNT, UNSPECIFIED SNOMED Code(s): 791568632 Plan: 1patient presented to hospital with sepsis in this patient who did have fever elevated white count and evidence of facial erythema concerning for facial cellulitis likely from gram-positive skin basilio patient also have a positive UA however very hard to get any history from this patient because of underlying dementia underlying urinary source responsible for the sepsis not entirely excluded. 2patient did tested positive for COVID-19 however the patient did not have significant respiratory symptoms chest x-ray was negative not requiring any supplemental oxygen treatment is mostly supportive with no need for remdesivir or steroids 3-patient did have clinical improvement room in the cellulitis and white count is trending down with adjustment of antibiotic to Unasyn we will continue with Unasyn and repeat a CBC with a.m. lab and monitor clinical course closely Dictation was produced using [employer] dictation software. please excuse any grammatical, word or spelling errors. Time with Patient: Less than 30
[2024-05-04 17:05] LABS: Glucose,Whole Blood 136 mg/dL (70-110)
[2024-05-04 20:44] LABS: Glucose,Whole Blood 103 mg/dL (70-110)
[2024-05-05 01:55] LABS: Glucose,Whole Blood 149 mg/dL (70-110)
[2024-05-05 06:08] LABS: Glucose,Whole Blood 115 mg/dL (70-110)
[2024-05-05 09:43] LABS: Basophils # (A) 0.09 X 10*3/uL (0.00-0.10); Basophils % (A) 0.6 %; Eosinophils # (A) 0.81 X 10*3/uL (0.04-0.35); HCT 28.9 % (37.2-46.3); HGB 8.7 g/dL (12.0-15.0); Lymphocytes # (A) 2.12 X 10*3/uL (0.90-5.00); Lymphocytes % (A) 13.2 %; MCH 29.5 pg (27.0-32.0); MCHC 30.1 g/dL (32.0-37.0); Mean Platelet Volume 10.6 FL (9.5-12.2); Monocytes # (A) 1.36 X 10*3/uL (0.20-1.00); Monocytes % (A) 8.4 %; NRBC Per 100 WBC 0 X 10*3/uL (0.00-0.01); Neutrophils # (A) 11.36 X 10*3/uL (1.80-7.70); Neutrophils % (A) 70.6 %; Platelet Count 326 X 10*3/uL (140-440); RBC 2.95 X 10*6/uL (4.10-5.20); RDW 14.3 % (11.5-14.5)
[2024-05-05] MEDS ORDERED: ALBUTEROL HFA INHALER INHALATION PRN (10:13)
[2024-05-05 10:43] LABS: ALT 13 U/L (8-44); AST 42 U/L (13-35); Albumin/Globulin Ratio 1.07 Ratio (1.60-3.17); Alkaline Phosphatase 68 U/L (41-126); BUN/Creat Ratio 14.83 Ratio (12.00-20.00); Blood Urea Nitrogen 17.8 mg/dL (9.0-27.0); Calcium 8.4 mg/dL (8.7-10.3); Carbon Dioxide 18.2 mmol/L (21.6-31.8); Chloride 111 mmol/L (96-109); Globulin 2.8 g/dL (1.6-3.3); Glucose 130 mg/dL (70-110); Potassium 4.5 mmol/L (3.5-5.5); Sodium 142 mmol/L (135-145); Total Bilirubin 0.6 mg/dL (0.3-1.2); Total Protein 5.8 g/dL (6.2-8.2)
[2024-05-05] MEDS: ALBUTEROL HFA INHALER INHALATION SCH (11:03)
--- NOTE | 2024-05-05 11:03 | XR ---
EXAMINATION TYPE: XR chest 1V portable DATE OF EXAM: 05/05/2024 10:58 AM CLINICAL INDICATION: Female, 74 years old with history of wheezy; [facility] COMPARISON: 05/01/2024 TECHNIQUE: XR chest 1V portable Frontal view of the chest. FINDINGS: Lungs/Pleura: There is no evidence of pleural effusion, focal consolidation, or pneumothorax. Pulmonary vascularity: Pulmonary vascular congestion. Heart/mediastinum: Cardiomediastinal silhouette is enlarged. Atherosclerotic calcifications are seen in the aorta. Musculoskeletal: No acute osseous pathology. Midline sternotomy wires are noted. Other findings: None Lines/Tubes: IMPRESSION: Cardiomegaly and mild pulmonary vascular congestion. Correlate with BNP for congestive heart failure.
[2024-05-05] MEDS: FUROSEMIDE 10 MG/ML 2 ML VIAL IV ONE ×2 (11:49→14:32)
[2024-05-05] MEDS: guaiFENesin SYRUP 100MG/5ML 200 MG/10 ML CUP PO PRN (11:50)
[2024-05-05] MEDS: BENZONATATE 100 MG CAP PO PRN (11:50)
[2024-05-05 11:53] LABS: Glucose,Whole Blood 162 mg/dL (70-110)
--- NOTE | 2024-05-05 14:30 | P.PN ---
Subjective Progress Note Date: 05/05/24 74-year-old female was brought in because of complaints of lightheadedness radiation and is found to be febrile with a temperature going above 101 and chills. Patient denies any cough or abdominal pain nausea vomiting diarrhea patient denies any dysuria patient is found to have cellulitis of the left side of the face never had any MRSA infection in the past patient does not have any caries tooth or dental infection. Patient facial cellulitis involves the entire left cheek extending to lower periorbital area on the left side. Patient COVID- 19 is positive although patient was diagnosed with COVID-19 pretty recently and this is residual from that. Patient denies any shortness of breath. Patient d oes have elevated white count of 21,400. Serum creatinine is around 1.4 this appears to be patient's baseline patient does use Aldactone and an angiotensin receptor maru at home. May 02, 2024 Patient cellulitis is improving at this time. Continue with IV cefazolin serum creatinine remained stable discontinued IV fluids. Patient probably has chronic kidney disease white count did improve from 21,000-16,000. 05/03/2024 Patient is drowsy and weak. Afebrile. Currently on room air. No episodes of nausea or vomiting. No chest pain or shortness of breath. Blood sugar down to 85 this afternoon. Otherwise laboratory data showed WBC 17.7 hemoglobin 11.0 and platelets 319 sodium 139 potassium 4.3 chloride 101 bicarb is 19 BUN 23 and creatinine 1.25 and blood sugar 103. Urine culture showed 50-100,000 skin basilio. Blood cultures negative so far. Antibiotics changed to Unasyn. ID is on board. 05/05/2024 Patient is eval today in follow-up in the medical floor. Patient has been pl aced on 2 L of nasal cannula and currently worsening shortness of breath. She is also having a dry nonproductive cough. Patient is not having any crackles however her lungs are significantly diminished we did order a chest x-ray which reveals pulmonary vascular congestion upon review of the imaging it does appear the patient is in congestive heart failure her most recent echocardiogram from 2022 does reveal an ejection fraction of 40 to 45%. Noted that she was placed on IV fluids running at 50 mL/h yesterday and we will recommend to stop the fluids at this time. Patient will be given a total dose of IV Lasix of 40 mg. She is also given DuoNebs scheduled and as needed as well as supportive care with Robitussin and Tessalon. Patient remains on IV Unasyn for the left facial cellulitis appears to be significantly improved with ID following this closely. Work today reveals a white blood cell count of 16.10, hemoglobin 8.7, sodium of 142, BUN of 17.8 and a creatinine of 1.2. Review of Systems Constitutional: Denied any fatigue denied any fever. Cardio vascular: denied any chest pain, palpitations Gastrointestinal: denied any nausea, vomiting, diarrhea Pulmonary: Reports shortness of breath and cough Neurologic denied any new focal deficits All inpatient medications were reviewed and appropriate changes in these medications as dictated in the interval history and assessment and plan. Zickel examination GENERAL: The patient is alert and oriented x3, not in any acute distress. Well developed, well nourished. Obese HEENT: Pupils are round and equally reacting to light. EOMI. No scleral icterus. No conjunctival pallor. Normocephalic, atraumatic. No pharyngeal erythema. No thyromegaly. CARDIOVASCULAR: S1 and S2 present. No murmurs, rubs, or gallops. PULMONARY: Chest is clear to auscultation, no wheezing or crackles. ABDOMEN: Soft, nontender, nondistended, normoactive bowel sounds. No palpable organomegaly. MUSCULOSKELETAL: No joint swelling or deformity. EXTREMITIES: No cyanosis, clubbing, or pedal edema. NEUROLOGICAL: Gross neurological examination did not reveal any focal deficits. SKIN: Cellulitis of the left side of the face as mentioned above Assessment and plan -Sepsis: Secondary to left-sided facial cellulitis patient continues on IV unasyn and ID following closely -Chronic kidney disease stage III with mild acute renal failure IV fluids as mentioned above -Acute systolic heart failure IV fluids will be stopped patient will receive a total of IV lasix 40 mg. -Leukocytosis secondary to assessment #1 -Coronary artery disease for which patient will be resumed on home regimen -COPD without any acute exacerbation -Obesity -Type 2 diabetes mellitus patient is on home regimen of 80 units of long-acting insulin along with 15 units with each meal and high-dose sliding scale. Reduce it to Levemir 17 units daily and sliding scale due to hypoglycemic episodes. -Diabetic nephropathy and peripheral neuropathy -Hyperlipidemia -Hypertension -Acute covid infection; incidental finding. Continue supportive care. ID following. DVT prophylaxis heparin subcutaneous 3 times daily The impression and plan of care has been dictated by Bhumika Brasher, Nurse Practitioner as directed. Dr. Britney MD I have performed a history and physical examination and medical decision making of this patient, discussed the same with the dictator, and agree with the dictators assessment and plan as written, documented as a scribe. Based on total visit time, I have performed more than 50% of this visit. Objective - Vital Signs Vital signs: Vital Signs Temp 97.7 F 05/05/24 07:24 Pulse 63 05/05/24 07:24 Resp 18 05/05/24 07:24 BP 172/90 05/05/24 07:24 Pulse Ox 94 L 05/05/24 07:24 FiO2 Intake & Output 05/04/24 05/05/24 05/05/24 18:59 06:59 18:59 Output Total 425 Balance -425 Output: Urine 425 Other: Voiding Method Diaper Diaper Incontinent Incontinent External Catheter External Catheter # Voids 1 1 # Bowel Movements 1 1 - Labs CBC & Chem 7: 05/05/24 04:01 05/05/24 04:01 Labs: Abnormal Lab Results - Last 24 Hours (Table) 05/04/24 05/05/24 05/05/24 Range/Units 17:04 01:53 04:01 WBC 16.10 H (4.50-10.00) X 10*3/uL RBC 2.95 L (4.10-5.20) X 10*6/uL Hgb 8.7 L (12.0-15.0) g/dL Hct 28.9 L (37.2-46.3) % MCV 98.0 H (80.0-97.0) FL MCHC 30.1 L (32.0-37.0) g/dL Immature Gran # 0.36 H (0.00-0.04) X 10*3/uL Neutrophils # 11.36 H (1.80-7.70) X 10*3/uL Monocytes # 1.36 H (0.20-1.00) X 10*3/uL Eosinophils # 0.81 H (0.04-0.35) X 10*3/uL Chloride (96-109) mmol/L Carbon Dioxide (21.6-31.8) mmol/L Anion Gap (4.00-12.00) mmol/L Est GFR (CKD-EPI) (>=60) Glucose (70-110) mg/dL POC Glucose (mg/dL) 136 H 149 H (70-110) mg/dL Calcium (8.7-10.3) mg/dL AST (13-35) U/L C-Reactive Protein (0.00-0.80) mg/dL Total Protein (6.2-8.2) g/dL Albumin (3.8-4.9) g/dL Albumin/Globulin Ratio (1.60-3.17) Ratio 05/05/24 05/05/24 05/05/24 Range/Units 04:01 06:07 11:52 WBC (4.50-10.00) X 10*3/uL RBC (4.10-5.20) X 10*6/uL Hgb (12.0-15.0) g/dL Hct (37.2-46.3) % MCV (80.0-97.0) FL MCHC (32.0-37.0) g/dL Immature Gran # (0.00-0.04) X 10*3/uL Neutrophils # (1.80-7.70) X 10*3/uL Monocytes # (0.20-1.00) X 10*3/uL Eosinophils # (0.04-0.35) X 10*3/uL Chloride 111 H (96-109) mmol/L Carbon Dioxide 18.2 L (21.6-31.8) mmol/L Anion Gap 12.80 H (4.00-12.00) mmol/L Est GFR (CKD-EPI) 48 L (>=60) Glucose 130 H (70-110) mg/dL POC Glucose (mg/dL) 115 H 162 H (70-110) mg/dL Calcium 8.4 L (8.7-10.3) mg/dL AST 42 H (13-35) U/L C-Reactive Protein 6.10 H (0.00-0.80) mg/dL Total Protein 5.8 L (6.2-8.2) g/dL Albumin 3.0 L (3.8-4.9) g/dL Albumin/Globulin Ratio 1.07 L (1.60-3.17) Ratio Microbiology - Last 24 Hours (Table) 05/01/24 09:27 Blood Culture - Preliminary Blood Assessment and Plan Time with Patient: Less than 30
[2024-05-05 16:37] LABS: Glucose,Whole Blood 217 mg/dL (70-110)
[2024-05-05 21:14] LABS: Glucose,Whole Blood 176 mg/dL (70-110)
[2024-05-06 01:55] LABS: Glucose,Whole Blood 176 mg/dL (70-110)
[2024-05-06 05:44] LABS: Glucose,Whole Blood 109 mg/dL (70-110)
[2024-05-06 06:31] LABS: Basophils # (A) 0.1 k/uL (0-0.2); Basophils % (A) 1 %; Eosinophils # (A) 1.3 k/uL (0-0.7); Eosinophils % (A) 8 %; HCT 28.4 % (34.0-46.0); Lymphocytes # (A) 2.6 k/uL (1.0-4.8); Lymphocytes % (A) 16 %; MCH 31.1 pg (25.0-35.0); MCHC 32.7 g/dL (31.0-37.0); MCV 94.9 fL (80.0-100.0); Mean Platelet Volume 9.4; Monocytes # (A) 1.1 k/uL (0-1.0); Monocytes % (A) 7 %; Neutrophils # (A) 10.6 k/uL (1.3-7.7); Neutrophils % (A) 67 %; Platelet Count 387 k/uL (150-450); RBC 2.99 m/uL (3.80-5.40); RDW 14.1 % (11.5-15.5); WBC 15.8 k/uL (3.8-10.6)
[2024-05-06 06:32] LABS: HGB 9.3 gm/dL (11.4-16.0)
[2024-05-06 06:59] LABS: African American GFR (CKD) 54 (>60 ml/min/1.73 sqM); Anion Gap 9 mmol/L; Blood Urea Nitrogen 19 mg/dL (7-17); Calcium 8.7 mg/dL (8.4-10.2); Carbon Dioxide 24 mmol/L (22-30); Chloride 110 mmol/L (98-107); Glucose 125 mg/dL (74-99); Non-African American GFR(CKD) 47 (>60 ml/min/1.73 sqM); Potassium 3.7 mmol/L (3.5-5.1); Sodium 143 mmol/L (137-145)
[2024-05-06] MEDS: TIOTROPIUM 2.5 MCG INHALER INHALATION SCH (09:02)
[2024-05-06 11:37] LABS: Glucose,Whole Blood 173 mg/dL (70-110)
[2024-05-06] MEDS: POTASSIUM CHLORIDE ER 20 MEQ TAB.ER PO STA (12:05)
[2024-05-06] MEDS: amLODIPine 5 MG TAB PO SCH (14:41)
[2024-05-06] MEDS: FLUCONAZOLE 100 MG TAB PO SCH (14:41)
--- NOTE | 2024-05-06 15:56 | P.PN ---
Subjective Progress Note Date: 05/06/24 Principal diagnosis: Reason for follow-up is COVID-19 and facial cellulitis Patient is a 74-year-old female with a past medical history significant for diabetes mellitus hypertension hyperlipidemia dementia heart failure with COPD coronary artery disease patient has been brought into the hospital concerning for fall and confusion patient did test positive for COVID-1 9 did have a component of facial cellulitis and did have a positive UA. On today's evaluation that is 05/06/2024, patient did have a low-grade fever 100.3 last night, the patient has been afebrile this morning, patient is breathing comfortably and is currently on room air, patient denies having any significant cough no chest pain shortness of breath, patient denies nausea vomiting or diarrhea and no abdominal pain, patient insisted on going home. Patient white count is 15.8 creatinine is 1.16 Objective - Vital Signs Vital signs: Vital Signs Temp 97.5 F L 05/06/24 07:26 Pulse 69 05/06/24 08:00 Resp 18 05/06/24 08:00 BP 179/69 05/06/24 07:26 Pulse Ox 99 05/06/24 07:26 FiO2 Intake & Output 05/05/24 05/06/24 05/06/24 18:59 06:59 18:59 Output Total 2400 500 Balance -2400 -500 Output: Urine 2400 500 Other: Voiding Method Diaper Diaper Diaper Incontinent Incontinent Incontinent External Catheter External Catheter External Catheter # Bowel Movements 1 - Exam GENERAL DESCRIPTION: An elderly female lying in bed in no distress HEENT; facial redness slightly decreased RESPIRATORY SYSTEM: Unlabored breathing , decreased breath sounds at bases HEART: S1 S2 regular rate and rhythm , ABDOMEN: Soft , no tenderness EXTREMITIES: No edema feet - Labs CBC & Chem 7: 05/06/24 04:15 05/06/24 04:15 Labs: Abnormal Lab Results - Last 24 Hours (Table) 05/05/24 05/05/24 05/06/24 Range/Units 16:36 21:12 01:53 WBC (3.8-10.6) k/uL RBC (3.80-5.40) m/uL Hgb (11.4-16.0) gm/dL Hct (34.0-46.0) % Neutrophils # (1.3-7.7) k/uL Monocytes # (0-1.0) k/uL Eosinophils # (0-0.7) k/uL Chloride (98-107) mmol/L BUN (7-17) mg/dL Creatinine (0.52-1.04) mg/dL Glucose (74-99) mg/dL POC Glucose (mg/dL) 217 H 176 H 176 H (70-110) mg/dL 05/06/24 05/06/24 05/06/24 Range/Units 04:15 04:15 11:36 WBC 15.8 H (3.8-10.6) k/uL RBC 2.99 L (3.80-5.40) m/uL Hgb 9.3 L D (11.4-16.0) gm/dL Hct 28.4 L (34.0-46.0) % Neutrophils # 10.6 H (1.3-7.7) k/uL Monocytes # 1.1 H (0-1.0) k/uL Eosinophils # 1.3 H (0-0.7) k/uL Chloride 110 H (98-107) mmol/L BUN 19 H (7-17) mg/dL Creatinine 1.16 H (0.52-1.04) mg/dL Glucose 125 H (74-99) mg/dL POC Glucose (mg/dL) 173 H (70-110) mg/dL Assessment and Plan (1) COVID Current Visit: Yes Status: Acute Code(s): U07.1 - COVID-19 SNOMED Code(s): 694142191 (2) Facial cellulitis Current Visit: Yes Status: Acute Code(s): L03.211 - CELLULITIS OF FACE SNOMED Code(s): 641057432 (3) Leukocytosis Current Visit: Yes Status: Acute Code(s): D72.829 - ELEVATED WHITE BLOOD CELL COUNT, UNSPECIFIED SNOMED Code(s): 430880727 Plan: 1patient presented to hospital with sepsis in this patient who did have fever elevated white count and evidence of facial erythema concerning for facial cellulitis likely from gram-positive skin basilio patient also have a positive UA however very hard to get any history from this patient because of underlying dementia underlying urinary source responsible for the sepsis not entirely excluded. 2patient did tested positive for COVID-19 however the patient did not have significant respiratory symptoms chest x-ray was negative not requiring any supplemental oxygen treatment is mostly supportive with no need for remdesivir or steroids 3-patient did have low-grade fever last night and white count still elevated we will recheck a procalcitonin continue Unasyn if the patient remains to be afebrile and white count is down by tomorrow and did have normal procalcitonin may be able to consider short course of Augmentin on discharge Dictation was produced using [employer] dictation software. please excuse any grammatical, word or spelling errors. Time with Patient: Less than 30
[2024-05-06 16:40] LABS: Glucose,Whole Blood 232 mg/dL (70-110)
--- NOTE | 2024-05-06 20:52 | P.PN ---
Subjective Progress Note Date: 05/06/24 74-year-old female was brought in because of complaints of lightheadedness radiation and is found to be febrile with a temperature going above 101 and chills. Patient denies any cough or abdominal pain nausea vomiting diarrhea patient denies any dysuria patient is found to have cellulitis of the left side of the face never had any MRSA infection in the past patient does not have any caries tooth or dental infection. Patient facial cellulitis involves the entire left cheek extending to lower periorbital area on the left side. Patient COVID- 19 is positive although patient was diagnosed with COVID-19 pretty recently and this is residual from that. Patient denies any shortness of breath. Patient d oes have elevated white count of 21,400. Serum creatinine is around 1.4 this appears to be patient's baseline patient does use Aldactone and an angiotensin receptor maru at home. May 02, 2024 Patient cellulitis is improving at this time. Continue with IV cefazolin serum creatinine remained stable discontinued IV fluids. Patient probably has chronic kidney disease white count did improve from 21,000-16,000. 05/03/2024 Patient is drowsy and weak. Afebrile. Currently on room air. No episodes of nausea or vomiting. No chest pain or shortness of breath. Blood sugar down to 85 this afternoon. Otherwise laboratory data showed WBC 17.7 hemoglobin 11.0 and platelets 319 sodium 139 potassium 4.3 chloride 101 bicarb is 19 BUN 23 and creatinine 1.25 and blood sugar 103. Urine culture showed 50-100,000 skin basilio. Blood cultures negative so far. Antibiotics changed to Unasyn. ID is on board. 05/05/2024 Patient is eval today in follow-up in the medical floor. Patient has been pl aced on 2 L of nasal cannula and currently worsening shortness of breath. She is also having a dry nonproductive cough. Patient is not having any crackles however her lungs are significantly diminished we did order a chest x-ray which reveals pulmonary vascular congestion upon review of the imaging it does appear the patient is in congestive heart failure her most recent echocardiogram from 2022 does reveal an ejection fraction of 40 to 45%. Noted that she was placed on IV fluids running at 50 mL/h yesterday and we will recommend to stop the fluids at this time. Patient will be given a total dose of IV Lasix of 40 mg. She is also given DuoNebs scheduled and as needed as well as supportive care with Robitussin and Tessalon. Patient remains on IV Unasyn for the left facial cellulitis appears to be significantly improved with ID following this closely. Work today reveals a white blood cell count of 16.10, hemoglobin 8.7, sodium of 142, BUN of 17.8 and a creatinine of 1.2. 05/06/2024 Patient evaluated in follow up today. Hoping to be discharged. She did have a fever over night of 100.3. Also white blood cell count 15.8. BUN 19, creatinine 1.16. Patient is on room air and reports feeling less short of breath at this time. The facial cellulitis has essentially resolved. Continues on IV unasyn. Review of Systems Constitutional: Denied any fatigue denied any fever. Cardio vascular: denied any chest pain, palpitations Gastrointestinal: denied any nausea, vomiting, diarrhea Pulmonary: Reports shortness of breath and cough Neurologic denied any new focal deficits All inpatient medications were reviewed and appropriate changes in these medications as dictated in the interval history and assessment and plan. Zickel examination GENERAL: The patient is alert and oriented x3, not in any acute distress. Well developed, well nourished. Obese HEENT: Pupils are round and equally reacting to light. EOMI. No scleral icterus. No conjunctival pallor. Normocephalic, atraumatic. No pharyngeal erythema. No thyromegaly. CARDIOVASCULAR: S1 and S2 present. No murmurs, rubs, or gallops. PULMONARY: Chest is clear to auscultation, no wheezing or crackles. ABDOMEN: Soft, nontender, nondistended, normoactive bowel sounds. No palpable organomegaly. MUSCULOSKELETAL: No joint swelling or deformity. EXTREMITIES: No cyanosis, clubbing, or pedal edema. NEUROLOGICAL: Gross neurological examination did not reveal any focal deficits. SKIN: Cellulitis of the left side of the face as mentioned above Assessment and plan -Sepsis: Secondary to left-sided facial cellulitis patient continues on IV unasyn and ID following closely -Chronic kidney disease stage III with mild acute renal failure IV fluids as mentioned above -Acute systolic heart failure IV fluids will be stopped patient will receive a total of IV lasix 40 mg. -Leukocytosis secondary to assessment #1 -Coronary artery disease for which patient will be resumed on home regimen -COPD without any acute exacerbation -Obesity -Type 2 diabetes mellitus patient is on home regimen of 80 units of long-acting insulin along with 15 units with each meal and high-dose sliding scale. Reduce it to Levemir 17 units daily and sliding scale due to hypoglycemic episodes. -Diabetic nephropathy and peripheral neuropathy -Hyperlipidemia -Hypertension -Acute covid infection; incidental finding. Continue supportive care. ID fo llowing. DVT prophylaxis heparin subcutaneous 3 times daily The impression and plan of care has been dictated by Bhumika Brasher, Nurse Practitioner as directed. Dr. Britney MD I have performed a history and physical examination and medical decision making of this patient, discussed the same with the dictator, and agree with the dictators assessment and plan as written, documented as a scribe. Based on total visit time, I have performed more than 50% of this visit. Objective - Vital Signs Vital signs: Vital Signs Temp 97.5 F L 05/06/24 07:26 Pulse 69 05/06/24 08:00 Resp 18 05/06/24 08:00 BP 179/69 05/06/24 07:26 Pulse Ox 99 05/06/24 07:26 FiO2 Intake & Output 05/05/24 05/06/24 05/06/24 18:59 06:59 18:59 Output Total 2400 500 Balance -2400 -500 Output: Urine 2400 500 Other: Voiding Method Diaper Diaper Diaper Incontinent Incontinent Incontinent External Catheter External Catheter External Catheter # Bowel Movements 1 - Labs CBC & Chem 7: 05/06/24 04:15 05/06/24 04:15 Labs: Abnormal Lab Results - Last 24 Hours (Table) 05/05/24 05/05/24 05/06/24 Range/Units 16:36 21:12 01:53 WBC (3.8-10.6) k/uL RBC (3.80-5.40) m/uL Hgb (11.4-16.0) gm/dL Hct (34.0-46.0) % Neutrophils # (1.3-7.7) k/uL Monocytes # (0-1.0) k/uL Eosinophils # (0-0.7) k/uL Chloride (98-107) mmol/L BUN (7-17) mg/dL Creatinine (0.52-1.04) mg/dL Glucose (74-99) mg/dL POC Glucose (mg/dL) 217 H 176 H 176 H (70-110) mg/dL 05/06/24 05/06/24 05/06/24 Range/Units 04:15 04:15 11:36 WBC 15.8 H (3.8-10.6) k/uL RBC 2.99 L (3.80-5.40) m/uL Hgb 9.3 L D (11.4-16.0) gm/dL Hct 28.4 L (34.0-46.0) % Neutrophils # 10.6 H (1.3-7.7) k/uL Monocytes # 1.1 H (0-1.0) k/uL Eosinophils # 1.3 H (0-0.7) k/uL Chloride 110 H (98-107) mmol/L BUN 19 H (7-17) mg/dL Creatinine 1.16 H (0.52-1.04) mg/dL Glucose 125 H (74-99) mg/dL POC Glucose (mg/dL) 173 H (70-110) mg/dL Assessment and Plan Time with Patient: Less than 30
[2024-05-06 21:01] LABS: Glucose,Whole Blood 277 mg/dL (70-110)
[2024-05-07 02:01] LABS: Glucose,Whole Blood 222 mg/dL (70-110)
[2024-05-07 05:57] LABS: Glucose,Whole Blood 195 mg/dL (70-110)
[2024-05-07 10:36] LABS: Basophils # (A) 0.13 X 10*3/uL (0.00-0.10); Basophils % (A) 0.8 %; Eosinophils # (A) 1.55 X 10*3/uL (0.04-0.35); Eosinophils % (A) 9.1 %; HCT 27.2 % (37.2-46.3); HGB 8.4 g/dL (12.0-15.0); Lymphocytes # (A) 2.74 X 10*3/uL (0.90-5.00); MCH 30.3 pg (27.0-32.0); MCHC 30.9 g/dL (32.0-37.0); MCV 98.2 FL (80.0-97.0); Mean Platelet Volume 10.8 FL (9.5-12.2); Monocytes # (A) 1.03 X 10*3/uL (0.20-1.00); NRBC Per 100 WBC 0 X 10*3/uL (0.00-0.01); Neutrophils # (A) 11.16 X 10*3/uL (1.80-7.70); Neutrophils % (A) 65.3 %; Platelet Count 352 X 10*3/uL (140-440); RBC 2.77 X 10*6/uL (4.10-5.20); WBC 17.08 X 10*3/uL (4.50-10.00)
[2024-05-07 10:45] LABS: BUN/Creat Ratio 15.33 Ratio (12.00-20.00); Blood Urea Nitrogen 18.4 mg/dL (9.0-27.0); Calcium 8.5 mg/dL (8.7-10.3); Carbon Dioxide 21.4 mmol/L (21.6-31.8); Chloride 109 mmol/L (96-109); Glucose 191 mg/dL (70-110); Potassium 3.7 mmol/L (3.5-5.5); Sodium 142 mmol/L (135-145)
[2024-05-07 11:26] LABS: Glucose,Whole Blood 266 mg/dL (70-110)
--- NOTE | 2024-05-07 12:22 | P.PN ---
Subjective Progress Note Date: 05/07/24 Principal diagnosis: Reason for follow-up is COVID-19 and facial cellulitis Patient is a 74-year-old female with a past medical history significant for diabetes mellitus hypertension hyperlipidemia dementia heart failure with COPD coronary artery disease patient has been brought into the hospital concerning for fall and confusion patient did test positive for COVID-1 9 did have a component of facial cellulitis and did have a positive UA. On today's evaluation that is 05/07/2024, Patient is afebrile this morning patient denies having any chest pain shortness of breath did have occasional dry cough, the patient is breathing comfortably and currently on room air, patient denies any abdominal pain no diarrhea no nausea no vomiting, patient mention feeling better wants to go home. Patient white count is 17.08 did have elevated immature cells, creatinine is 1.02 procalcitonin 0.15, CRP is down to 3.20 from initial high of 8.50 Objective - Vital Signs Vital signs: Vital Signs Temp 98.3 F 05/07/24 07:49 Pulse 62 05/07/24 07:49 Resp 20 05/07/24 07:49 BP 156/87 05/07/24 07:49 Pulse Ox 91 L 05/07/24 07:49 FiO2 Intake & Output 05/06/24 05/07/24 05/07/24 18:59 06:59 18:59 Output Total 2100 400 Balance -2100 -400 Output: Urine 2100 400 Other: Voiding Method Diaper Diaper Incontinent Incontinent External Catheter External Catheter # Bowel Movements 2 - Exam GENERAL DESCRIPTION: An elderly female lying in bed in no distress HEENT; facial redness slightly decreased RESPIRATORY SYSTEM: Unlabored breathing , decreased breath sounds at bases HEART: S1 S2 regular rate and rhythm , ABDOMEN: Soft , no tenderness EXTREMITIES: No edema feet - Labs CBC & Chem 7: 05/07/24 07:16 05/07/24 07:16 Labs: Abnormal Lab Results - Last 24 Hours (Table) 05/06/24 05/06/24 05/06/24 Range/Units 11:36 16:38 20:59 WBC (4.50-10.00) X 10*3/uL RBC (4.10-5.20) X 10*6/uL Hgb (12.0-15.0) g/dL Hct (37.2-46.3) % MCV (80.0-97.0) FL MCHC (32.0-37.0) g/dL Immature Gran # (0.00-0.04) X 10*3/uL Neutrophils # (1.80-7.70) X 10*3/uL Monocytes # (0.20-1.00) X 10*3/uL Eosinophils # (0.04-0.35) X 10*3/uL Basophils # (0.00-0.10) X 10*3/uL Carbon Dioxide (21.6-31.8) mmol/L Est GFR (CKD-EPI) (>=60) Glucose (70-110) mg/dL POC Glucose (mg/dL) 173 H 232 H 277 H (70-110) mg/dL Calcium (8.7-10.3) mg/dL C-Reactive Protein (0.00-0.80) mg/dL 05/07/24 05/07/24 05/07/24 Range/Units 01:59 05:53 07:16 WBC 17.08 H (4.50-10.00) X 10*3/uL RBC 2.77 L (4.10-5.20) X 10*6/uL Hgb 8.4 L (12.0-15.0) g/dL Hct 27.2 L (37.2-46.3) % MCV 98.2 H (80.0-97.0) FL MCHC 30.9 L (32.0-37.0) g/dL Immature Gran # 0.47 H (0.00-0.04) X 10*3/uL Neutrophils # 11.16 H (1.80-7.70) X 10*3/uL Monocytes # 1.03 H (0.20-1.00) X 10*3/uL Eosinophils # 1.55 H (0.04-0.35) X 10*3/uL Basophils # 0.13 H (0.00-0.10) X 10*3/uL Carbon Dioxide (21.6-31.8) mmol/L Est GFR (CKD-EPI) (>=60) Glucose (70-110) mg/dL POC Glucose (mg/dL) 222 H 195 H (70-110) mg/dL Calcium (8.7-10.3) mg/dL C-Reactive Protein (0.00-0.80) mg/dL 05/07/24 Range/Units 07:16 WBC (4.50-10.00) X 10*3/uL RBC (4.10-5.20) X 10*6/uL Hgb (12.0-15.0) g/dL Hct (37.2-46.3) % MCV (80.0-97.0) FL MCHC (32.0-37.0) g/dL Immature Gran # (0.00-0.04) X 10*3/uL Neutrophils # (1.80-7.70) X 10*3/uL Monocytes # (0.20-1.00) X 10*3/uL Eosinophils # (0.04-0.35) X 10*3/uL Basophils # (0.00-0.10) X 10*3/uL Carbon Dioxide 21.4 L (21.6-31.8) mmol/L Est GFR (CKD-EPI) 48 L (>=60) Glucose 191 H (70-110) mg/dL POC Glucose (mg/dL) (70-110) mg/dL Calcium 8.5 L (8.7-10.3) mg/dL C-Reactive Protein 3.20 H (0.00-0.80) mg/dL Microbiology - Last 24 Hours (Table) 05/01/24 09:27 Blood Culture - Final Blood Assessment and Plan (1) COVID Current Visit: Yes Status: Acute Code(s): U07.1 - COVID-19 SNOMED Code(s): 051861463 (2) Facial cellulitis Current Visit: Yes Status: Acute Code(s): L03.211 - CELLULITIS OF FACE SNOMED Code(s): 537428830 (3) Leukocytosis Current Visit: Yes Status: Acute Code(s): D72.829 - ELEVATED WHITE BLOOD CELL COUNT, UNSPECIFIED SNOMED Code(s): 493796051 Plan: 1patient presented to hospital with sepsis in this patient who did have fever elevated white count and evidence of facial erythema concerning for facial cellulitis likely from gram-positive skin basilio patient also have a positive UA however very hard to get any history from this patient because of underlying dementia underlying urinary source responsible for the sepsis not entirely excluded. 2patient did tested positive for COVID-19 however the patient did not have significant respiratory symptoms chest x-ray was negative not requiring any supp lemental oxygen treatment is mostly supportive with no need for remdesivir or steroids 3-patient did have resolution of her fever and did have overall clinical improvement procalcitonin is normal CRP is down white count is still up he did have immature cell forms questionable hematological origin and will benefit from hematology evaluation in the outpatient setting as the patient has been insistin g on going home may consider short course of oral Augmentin on discharge Dictation was produced using [employer] software. please excuse any grammatical, word or spelling errors. Time with Patient: Less than 30
[2024-05-07 13:55] VITALS: BP 145/59; PULSE 61; RESP 19; TEMP 98
--- NOTE | 2024-05-08 13:53 | P.PN ---
Subjective Progress Note Date: 05/05/24 Principal diagnosis: Reason for follow-up is COVID-19 and facial cellulitis Patient is a 74-year-old female with a past medical history significant for diabetes mellitus hypertension hyperlipidemia dementia heart failure with COPD coronary artery disease patient has been brought into the hospital concerning for fall and confusion patient did test positive for COVID-1 9 did have a component of facial cellulitis and did have a positive UA. On today's evaluation that is 05/05/2024, Patient is afebrile patient is currently on room air and denies having any shortness of breath, the patient denies any chest pain or cough, the patient denies any nausea vomiting did not have any abdominal pain and no diarrhea No lab draw today Objective - Vital Signs Vital signs: Vital Signs Temp 97.7 F 05/05/24 07:24 Pulse 63 05/05/24 07:24 Resp 18 05/05/24 07:24 BP 172/90 05/05/24 07:24 Pulse Ox 94 L 05/05/24 07:24 FiO2 Intake & Output 05/04/24 05/05/24 05/05/24 18:59 06:59 18:59 Output Total 425 Balance -425 Output: Urine 425 Other: Voiding Method Diaper Diaper Incontinent Incontinent External Catheter External Catheter # Voids 1 1 # Bowel Movements 1 1 - Exam GENERAL DESCRIPTION: An elderly female lying in bed in no distress HEENT; facial redness slightly decreased RESPIRATORY SYSTEM: Unlabored breathing , decreased breath sounds at bases HEART: S1 S2 regular rate and rhythm , ABDOMEN: Soft , no tenderness EXTREMITIES: No edema feet - Labs CBC & Chem 7: 05/06/24 04:15 05/06/24 04:15 Labs: Abnormal Lab Results - Last 24 Hours (Table) 05/04/24 05/05/24 05/05/24 Range/Units 17:04 01:53 04:01 WBC 16.10 H (4.50-10.00) X 10*3/uL RBC 2.95 L (4.10-5.20) X 10*6/uL Hgb 8.7 L (12.0-15.0) g/dL Hct 28.9 L (37.2-46.3) % MCV 98.0 H (80.0-97.0) FL MCHC 30.1 L (32.0-37.0) g/dL Immature Gran # 0.36 H (0.00-0.04) X 10*3/uL Neutrophils # 11.36 H (1.80-7.70) X 10*3/uL Monocytes # 1.36 H (0.20-1.00) X 10*3/uL Eosinophils # 0.81 H (0.04-0.35) X 10*3/uL Chloride (96-109) mmol/L Carbon Dioxide (21.6-31.8) mmol/L Anion Gap (4.00-12.00) mmol/L Est GFR (CKD-EPI) (>=60) Glucose (70-110) mg/dL POC Glucose (mg/dL) 136 H 149 H (70-110) mg/dL Calcium (8.7-10.3) mg/dL AST (13-35) U/L C-Reactive Protein (0.00-0.80) mg/dL Total Protein (6.2-8.2) g/dL Albumin (3.8-4.9) g/dL Albumin/Globulin Ratio (1.60-3.17) Ratio 05/05/24 05/05/24 05/05/24 Range/Units 04:01 06:07 11:52 WBC (4.50-10.00) X 10*3/uL RBC (4.10-5.20) X 10*6/uL Hgb (12.0-15.0) g/dL Hct (37.2-46.3) % MCV (80.0-97.0) FL MCHC (32.0-37.0) g/dL Immature Gran # (0.00-0.04) X 10*3/uL Neutrophils # (1.80-7.70) X 10*3/uL Monocytes # (0.20-1.00) X 10*3/uL Eosinophils # (0.04-0.35) X 10*3/uL Chloride 111 H (96-109) mmol/L Carbon Dioxide 18.2 L (21.6-31.8) mmol/L Anion Gap 12.80 H (4.00-12.00) mmol/L Est GFR (CKD-EPI) 48 L (>=60) Glucose 130 H (70-110) mg/dL POC Glucose (mg/dL) 115 H 162 H (70-110) mg/dL Calcium 8.4 L (8.7-10.3) mg/dL AST 42 H (13-35) U/L C-Reactive Protein 6.10 H (0.00-0.80) mg/dL Total Protein 5.8 L (6.2-8.2) g/dL Albumin 3.0 L (3.8-4.9) g/dL Albumin/Globulin Ratio 1.07 L (1.60-3.17) Ratio Microbiology - Last 24 Hours (Table) 05/01/24 09:27 Blood Culture - Preliminary Blood Assessment and Plan (1) COVID Current Visit: Yes Status: Acute Code(s): U07.1 - COVID-19 SNOMED Code(s): 721366695 (2) Facial cellulitis Current Visit: Yes Status: Acute Code(s): L03.211 - CELLULITIS OF FACE SNOMED Code(s): 244055298 (3) Leukocytosis Current Visit: Yes Status: Acute Code(s): D72.829 - ELEVATED WHITE BLOOD CELL COUNT, UNSPECIFIED SNOMED Code(s): 665467249 Plan: 1patient presented to hospital with sepsis in this patient who did have fever elevated white count and evidence of facial erythema concerning for facial cellulitis likely from gram-positive skin basilio patient also have a positive UA however very hard to get any history from this patient because of underlying dementia underlying urinary source responsible for the sepsis not entirely excluded. 2patient did tested positive for COVID-19 however the patient did not have significant respiratory symptoms chest x-ray was negative not requiring any supplemental oxygen treatment is mostly supportive with no need for remdesivir or steroids 3-patient did have clinical improvement room in the cellulitis and white count is trending down, we will repeat a CBC with a.m. lab to be sure white count normalized continue with Unasyn Dictation was produced using [employer] dictation software. please excuse any gram matical, word or spelling errors.
--- NOTE | 2024-05-10 12:48 | P.DS ---
Providers Date of admission: 05/01/24 13:37 Attending physician: Raúl Tan Consults: 05/01/24 12:53 Consult Physician Routine Consulting Provider: Rico Yao Consult Reason/Comments: Facial cellulitis Do you want consulting provider notified?: Yes Primary care physician: Elvira Gonzales Hospital Course: Final Diagnosis -Sepsis: Secondary to left-sided facial cellulitis patient continues on IV unasyn and ID following closely -Chronic kidney disease stage III with mild acute renal failure IV fluids as mentioned above -Acute systolic heart failure IV fluids will be stopped patient will receive a total of IV lasix 40 mg. -Leukocytosis secondary to assessment #1 -Coronary artery disease for which patient will be resumed on home regimen -COPD without any acute exacerbation -Obesity -Type 2 diabetes mellitus -Diabetic nephropathy and peripheral neuropathy -Hyperlipidemia -Hypertension -Acute covid infection; incidental finding. Continue supportive care. ID following. Discharge Disposition Patient stable for discharge home. Patient to continue oral Augmentin for the next 7 days. Patient will continue with 3 more days of oral Diflucan. Has been started on amlodipine 5 mg daily for improved blood pressure control. Patient to follow-up with Dr. Jauregui for her elevated white blood cell count and also Dr. Yao in the office in 1 week. Patient to follow-up with her PCP Dr. elvira Goznales in 1 to 2 days. Hospital Course 74-year-old female medical history of coronary artery disease, COPD, diabetes, diabetic nephropathy and peripheral neuropathy, hypertension, hyperlipidemia. Was brought in because of complaints of lightheadedness radiation and is found to be febrile with a temperature going above 101 and chills. Patient denies any cough or abdominal pain nausea vomiting diarrhea patient denies any dysuria patient is found to have cellulitis of the left side of the face never had any MRSA infection in the past patient does not have any caries tooth or dental inf ection. Patient facial cellulitis involves the entire left cheek extending to lower periorbital area on the left side. Patient COVID-19 is positive although patient was diagnosed with COVID-19 pretty recently and this is residual from that. Patient denies any shortness of breath. Patient does have elevated white count of 21,400. Serum creatinine is around 1.4 this appears to be patient's baseline patient does use Aldactone and an angiotensin receptor maru at home. Was admitted to the hospital under internal medicine with a consult placed to infectious disease. Patient was placed on IV antibiotics in the form of cefazolin secondary to the facial cellulitis. She is receiving supportive care for the COVID infection. Patient clinically has improved facial cellulitis has essentially resolved ID recommending 7 more days of oral Augmentin on discharge. Patient was receiving supportive care for the COVID and is currently on room air not reporting any shortness of breath. Her white blood cell count remains elevated has his entire hospital stay. There is concern for an underlying hematologic order and patient has been referred to hematology on discharge. Please see medication reconciliation for a list of current medications. Thank you for allowing us to participate in the care of this patient. The impression and plan of care has been dictated by Bhumika Brasher, Nurse Practitioner as directed. Dr. Britney MD I have performed a history and physical examination and medical decision making of this patient, discussed the same with the dictator, and agree with the di ctators assessment and plan as written, documented as a scribe. Based on total visit time, I have performed more than 50% of this visit. Patient Condition at Discharge: Stable Plan - Discharge Summary Discharge Rx Participant: No New Discharge Prescriptions: New amLODIPine [Norvasc] 5 mg PO DAILY #30 tab Amoxic-Pot Clav 875-125Mg [Augmentin 875-125] 1 tab PO BID 7 Days #14 tab Fluconazole [Diflucan] 100 mg PO DAILY 3 Days #3 tab Benzonatate [Tessalon Perles] 100 mg PO TID PRN #20 cap PRN Reason: Cough Continue Atorvastatin [Lipitor] 80 mg PO HS Clopidogrel Bisulfate [Plavix] 75 mg PO DAILY Aspirin EC [Ecotrin Low Dose] 81 mg PO DAILY traMADol HCL 50 mg PO BID Metoprolol Succinate [Toprol XL] 50 mg PO DAILY Valsartan [Diovan] 80 mg PO DAILY Spironolactone [Aldactone] 25 mg PO DAILY Insulin Glargine,Hum.rec.anlog [Lantus Solostar Pen] 80 units SQ HS Insulin Lispro [humaLOG Kwikpen] 15 units SQ AC-TID #0 Omeprazole [PriLOSEC] 20 mg PO BID Budesonide-Formot 160-4.5 Mcg [Symbicort 160-4.5 Mcg Inhaler] 2 puff INHALATION RT-BID 30 Days #1 each Cholecalciferol [Vitamin D3 (125 Mcg = 5000 Iu)] 125 mcg PO DAILY Discharge Medication List Atorvastatin [Lipitor] 80 mg PO HS 09/23/20 [History] Aspirin EC [Ecotrin Low Dose] 81 mg PO DAILY 12/12/21 [History] Clopidogrel Bisulfate [Plavix] 75 mg PO DAILY 12/12/21 [History] Insulin Lispro [humaLOG Kwikpen] 15 units SQ AC-TID #0 06/19/22 [Rx] traMADol HCL 50 mg PO BID 02/21/23 [History] Metoprolol Succinate [Toprol XL] 50 mg PO DAILY 11/02/23 [History] Omeprazole [PriLOSEC] 20 mg PO BID 11/02/23 [History] Budesonide-Formot 160-4.5 Mcg [Symbicort 160-4.5 Mcg Inhaler] 2 puff INHALATION RT-BID 30 Days #1 each 11/05/23 [Rx] Spironolactone [Aldactone] 25 mg PO DAILY 03/27/24 [History] Valsartan [Diovan] 80 mg PO DAILY 03/27/24 [History] Cholecalciferol [Vitamin D3 (125 Mcg = 5000 Iu)] 125 mcg PO DAILY 05/01/24 [History] Insulin Glargine,Hum.rec.anlog [Lantus Solostar Pen] 80 units SQ HS 05/01/24 [History] Amoxic-Pot Clav 875-125Mg [Augmentin 875-125] 1 tab PO BID 7 Days #14 tab 05/07/24 [Rx] Benzonatate [Tessalon Perles] 100 mg PO TID PRN #20 cap 05/07/24 [Rx] Fluconazole [Diflucan] 100 mg PO DAILY 3 Days #3 tab 05/07/24 [Rx] amLODIPine [Norvasc] 5 mg PO DAILY #30 tab 05/07/24 [Rx] Follow up Appointment(s)/Referral(s): Elvira Gonzales MD [Primary Care Provider] - 05/14/24 5:00 pm Keon Jauregui MD [STAFF PHYSICIAN] - 1 Week (Elevated white blood celll count . Office not answering Please call to schedule appointment ) [facility], [NON-STAFF] - As Needed Rico Yao MD [STAFF PHYSICIAN] - 1 Week (office not answering Please call to schedule appointment) Ambulatory/Diagnostic Orders: Basic Metabolic Panel [LAB.AMB] Location: None Selected Complete Blood Count w/diff [LAB.AMB] Time Frame: 4 Days, Location: None Selected Patient Instructions/Handouts: Urinary Tract Infection in Women (DC), COVID-19 (Coronavirus Disease 2019) (DC) Discharge Disposition: HOME SELF-CARE
== END 2024-05-07 15:32 | disposition home or self-care (01) | DRG 871 ==
LOC: EC 08:16 → 4SSUR 13:37
PROVIDERS: ADMIT Internal Medicine; ATTEND Internal Medicine
DX: A41.89 Other specified sepsis (principal); I50.23 Acute on chronic systolic (congestive) heart failure; U07.1 COVID-19; N17.9 Acute kidney failure, unspecified; I13.0 Hypertensive heart and chronic kidney disease with heart failure and stage 1 through stage 4 chronic kidney disease, or unspecified chronic kidney disease; L03.211 Cellulitis of face; Z68.41 Body mass index [BMI] 40.0-44.9, adult; E11.22 Type 2 diabetes mellitus with diabetic chronic kidney disease; E11.42 Type 2 diabetes mellitus with diabetic polyneuropathy; F03.90 Unspecified dementia, unspecified severity, without behavioral disturbance, psychotic disturbance, mood disturbance, and anxiety; N18.30 Chronic kidney disease, stage 3 unspecified; Z79.4 Long term (current) use of insulin; Z99.81 Dependence on supplemental oxygen; J44.89 Other specified chronic obstructive pulmonary disease; E66.9 Obesity, unspecified; I25.10 Atherosclerotic heart disease of native coronary artery without angina pectoris; E78.5 Hyperlipidemia, unspecified; H54.7 Unspecified visual loss; W19.XXXA Unspecified fall, initial encounter; Z79.02 Long term (current) use of antithrombotics/antiplatelets; Z79.82 Long term (current) use of aspirin; Z79.51 Long term (current) use of inhaled steroids; Z79.899 Other long term (current) drug therapy; Z86.16 Personal history of COVID-19; Z86.73 Personal history of transient ischemic attack (TIA), and cerebral infarction without residual deficits; I25.2 Old myocardial infarction; Z95.1 Presence of aortocoronary bypass graft; Z95.5 Presence of coronary angioplasty implant and graft; Z87.891 Personal history of nicotine dependence
CPT/HCPCS: 36415; 70450; 70486; 71045; 72125; 72170; 80048; 80053; 81001; 83036; 83880; 84145; 85025; 85027; 85610; 85730; 86140; 87040; 87086; 87636; 93005; 94640; 96361; 96365; 96366; 96368; 96372; 99285

== ENCOUNTER 2024-05-18 11:19 | Inpatient (IN) | payer MEDICARE ==
--- NOTE | 2024-05-18 11:35 | ED ---
General Adult HPI - General Chief complaint: Shortness of Breath Stated complaint: SOB Time Seen by Provider: 05/18/24 11:21 Source: patient, EMS, RN notes reviewed Mode of arrival: EMS Limitations: no limitations - History of Present Illness Initial comments: Patient is a 74-year-old female presenting to the emergency department with concerns with difficulty in breathing. Symptoms unclear onset, possibly occurred last couple of days. Patient has dementia and is a poor historian. Patient states she feels she is breathing a little bit better at this time. Patient questions if she may have had fevers. Patient denies cough. No calf pain. No leg swelling. - Related Data Home Medications Medication Instructions Recorded Confirmed Atorvastatin [Lipitor] 80 mg PO HS 09/23/20 05/01/24 Aspirin EC [Ecotrin Low Dose] 81 mg PO DAILY 12/12/21 05/01/24 Clopidogrel Bisulfate [Plavix] 75 mg PO DAILY 12/12/21 05/01/24 traMADol HCL 50 mg PO BID 02/21/23 05/01/24 Metoprolol Succinate [Toprol XL] 50 mg PO DAILY 11/02/23 05/01/24 Omeprazole [PriLOSEC] 20 mg PO BID 11/02/23 05/01/24 Spironolactone [Aldactone] 25 mg PO DAILY 03/27/24 05/01/24 Valsartan [Diovan] 80 mg PO DAILY 03/27/24 05/01/24 Cholecalciferol [Vitamin D3 (125 125 mcg PO DAILY 05/01/24 05/01/24 Mcg = 5000 Iu)] Insulin Glargine,Hum.rec.anlog 80 units SQ HS 05/01/24 05/01/24 [Lantus Solostar Pen] Previous Rx's Medication Instructions Recorded Insulin Lispro [humaLOG Kwikpen] 15 units SQ AC-TID #0 06/19/22 Budesonide-Formot 160-4.5 Mcg 2 puff INHALATION RT-BID 30 Days 11/05/23 [Symbicort 160-4.5 Mcg Inhaler] #1 each Amoxic-Pot Clav 875-125Mg 1 tab PO BID 7 Days #14 tab 05/07/24 [Augmentin 875-125] Benzonatate [Tessalon Perles] 100 mg PO TID PRN #20 cap 05/07/24 Fluconazole [Diflucan] 100 mg PO DAILY 3 Days #3 tab 05/07/24 amLODIPine [Norvasc] 5 mg PO DAILY #30 tab 05/07/24 Allergies Allergy/AdvReac Type Severity Reaction Status Date / Time codeine AdvReac Nausea & Verified 05/18/24 11:27 Vomiting Review of Systems ROS Statement: Those systems with pertinent positive or pertinent negative responses have been documented in the HPI. ROS Other: All systems not noted in ROS Statement are negative. 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, R caratid artery disease, valvular disease, pulmonary htn, bronchitis, home oxygen prn, poor vision/pt cannot recall reason, UTIs, rash/itching, WAS SEEN IN ER 12/2022 FOR N/V Last Myocardial Infarction Date:: 2014 History of Any Multi-Drug Resistant Organisms: ESBL Date of last positivie culture/infection: 04/15/21 MDRO Source:: ESBL URINE Past Surgical History: Cholecystectomy, Coronary Bypass/CABG, Heart Catheterization With Stent Additional Past Surgical History / Comment(s): PCI/stents in 2009 and 2014, 2017 CABG 3 vessel then sternal debridement for infection/removal of hardware, colonoscopy, bilateral cataract removals. Past Anesthesia/Blood Transfusion Reactions: No Reported Reaction Additional Past Anesthesia/Blood Transfusion Reaction / Comment(s): Claustroph obic Date of Last Stent Placement:: 2014 Past Psychological History: No Psychological Hx Reported Smoking Status: Former smoker Past Alcohol Use History: None Reported Past Drug Use History: None Reported - Past Family History Father Family Medical History: Coronary Artery Disease (CAD), Myocardial Infarction (CT) Additional Family Medical History / Comment(s): STENT, OPEN HEART SURGERY Mother History Unknown: Yes Additional Family Medical History / Comment(s): DEPRESSION, mental illness General Exam Limitations: no limitations General appearance: alert, in no apparent distress Head exam: Present: normocephalic Eye exam: Present: normal appearance Neck exam: Present: normal inspection Respiratory exam: Present: decreased breath sounds Cardiovascular Exam: Present: bradycardia GI/Abdominal exam: Present: soft. Absent: tenderness Extremities exam: Present: normal inspection. Absent: pedal edema, calf tenderness Neurological exam: Present: alert Psychiatric exam: Present: flat affect Skin exam: Present: normal color Course Vital Signs 05/18/24 05/18/24 05/18/24 11:21 11:52 12:02 Temperature 97.0 F L Pulse Rate 51 L 53 L 52 L Respiratory 20 Rate Blood Pressure 124/44 O2 Sat by Pulse 93 L Oximetry 05/18/24 13:33 Temperature Pulse Rate 52 L Respiratory Rate Blood Pressure 140/89 O2 Sat by Pulse 97 Oximetry EKG Findings - EKG Results: EKG: interpreted by ERMD (Delta. Left bundle branch block. Septal Q waves. Nonspecific ST-T.), sinus rhythm EKG shows: bradycardia Medical Decision Making - Medical Decision Making Was pt. sent in by a medical professional or institution (, PA, [employer], urgent care, hospital, or long term...) When possible be specific @ -No Did you speak to anyone other than the patient for history (EMS, parent, family, police, friend...)? What history was obtained from this source @ -No Did you review nursing and triage notes (agree or disagree)? Why? @ -I reviewed and agree with nursing and triage notes Were old charts reviewed (outside hosp., previous admission, EMS record, old EKG, old radiological studies, urgent care reports/EKG's, long term records)? Report findings @ -No old charts were reviewed Differential Diagnosis (chest pain, altered mental status, abdominal pain women, abdominal pain men, vaginal bleeding, weakness, fever, dyspnea, syncope, headache, dizziness, GI bleed, back pain, seizure, CVA, palpatations, mental health, musculoskeletal)? @ -Differential Dyspnea: Coronary syndrome, arrhythmia, tamponade, asthma, COPD, pulmonary embolism, pneumonia, pneumothorax, pulmonary effusion, anaphylaxis, diabetic ketoacidosis, flailed chest, pulmonary contusion, diaphragmatic rupture, anemia, michael romuscular, this is not meant to be an all-inclusive list. EKG interpreted by me (3pts min.). @ -As above X-rays interpreted by me (1pt min.). @ -Chest x-ray shows bibasilar infiltrates, cardiomegaly, some interstitial edema CT interpreted by me (1pt min.). @ -None done U/S interpreted by me (1pt. min.). @ -None done What testing was considered but not performed or refused? (CT, X-rays, U/S, labs)? Why? @ -None What meds were considered but not given or refused? Why? @ -None Did you discuss the management of the patient with other professionals (professionals i.e. DrBuck, PA, [employer], lab, RT, psych nurse, social media content specialist, key account director, teacher, legal compliance officer, returned case inspector)? Give summary @ -Case discussed with Dr. Arredondo who will admit covering Dr. Zelaya. He would like both cardiology and pulmonary consults and IV antibiotics. Was smoking cessation discussed for >3mins.? @ -No Was critical care preformed (if so, how long)? @ -No Were there social determinants of health that impacted care today? How? (Homelessness, low income, unemployed, alcoholism, drug addiction, transportation, low edu. Level, literacy, decrease access to med. care, prison, rehab)? @ -No Was there de-escalation of care discussed even if they declined (Discuss DNR or withdrawal of care, Hospice)? DNR status @ -No What co-morbidities impacted this encounter? (DM, HTN, Smoking, COPD, CAD, Cancer, CVA, ARF, Chemo, Hep., AIDS, mental health diagnosis, sleep apnea, morbid obesity)? @ -3 of COPD Was patient admitted / discharged? Hospital course, mention meds given and route, prescriptions, significant lab abnormalities, going to OR and other pertinent info. @ -Patient presents with dyspnea. Some improvement with nebulizer and treatment in route. Patient reevaluated with decreased air exchange. Patient i s updated on results and plan. Patient will be admitted secondary to borderline troponin. Admission orders written. Consults placed Undiagnosed new problem with uncertain prognosis? @ -No Drug Therapy requiring intensive monitoring for toxicity (Heparin, Nitro, Insulin, Cardizem)? @ -No Were any procedures done? @ -No Diagnosis/symptom? @ -Dyspnea Acute, or Chronic, or Acute on Chronic? @ -Acute Uncomplicated (without systemic symptoms) or Complicated (systemic symptoms)? @ -Default Side effects of treatment? @ -No Exacerbation, Progression, or Severe Exacerbation? @ -No Poses a threat to life or bodily function? How? (Chest pain, USA, CT, pneumonia, PE, COPD, DKA, ARF, appy, cholecystitis, CVA, Diverticulitis, Homicidal, Suicidal, threat to staff... and all critical care pts) @ -Threat to pulmonary function - Lab Data Result diagrams: 05/18/24 11:43 05/18/24 11:43 Lab Results 05/18/24 05/18/24 05/18/24 Range/Units 11:43 11:43 11:43 WBC 10.3 (3.8-10.6) k/uL RBC 2.91 L (3.80-5.40) m/uL Hgb 9.0 L (11.4-16.0) gm/dL Hct 29.3 L (34.0-46.0) % MCV 100.4 H D (80.0-100.0) fL MCH 30.7 (25.0-35.0) pg MCHC 30.6 L (31.0-37.0) g/dL RDW 15.2 (11.5-15.5) % Plt Count 551 H (150-450) k/uL MPV 7.2 Neutrophils % 71 % Lymphocytes % 15 % Monocytes % 6 % Eosinophils % 7 % Basophils % 1 % Neutrophils # 7.3 (1.3-7.7) k/uL Lymphocytes # 1.6 (1.0-4.8) k/uL Monocytes # 0.6 (0-1.0) k/uL Eosinophils # 0.7 (0-0.7) k/uL Basophils # 0.1 (0-0.2) k/uL Hypochromasia Marked Macrocytosis Slight PT 10.3 (10.0-12.5) sec INR 0.9 (<1.2) APTT 21.7 L (22.0-30.0) sec Sodium 141 (137-145) mmol/L Potassium 4.2 (3.5-5.1) mmol/L Chloride 107 (98-107) mmol/L Carbon Dioxide 29 (22-30) mmol/L Anion Gap 5 mmol/L BUN 32 H (7-17) mg/dL Creatinine 1.19 H (0.52-1.04) mg/dL Est GFR (CKD-EPI)AfAm 52 (>60 ml/min/1.73 sqM) Est GFR (CKD-EPI)NonAf 45 (>60 ml/min/1.73 sqM) Glucose 51 L (74-99) mg/dL Plasma Lactic Acid Dennis (0.7-2.0) mmol/L Calcium 8.9 (8.4-10.2) mg/dL Magnesium 2.2 (1.6-2.3) mg/dL Total Bilirubin 1.1 (0.2-1.3) mg/dL AST 24 (14-36) U/L ALT 16 (4-34) U/L Alkaline Phosphatase 44 (38-126) U/L Troponin I (0.000-0.034) ng/mL NT-Pro-B Natriuret Pep 1480 pg/mL Total Protein 6.3 (6.3-8.2) g/dL Albumin 3.3 L (3.5-5.0) g/dL Influenza Type A (PCR) (Not Detectd) Influenza Type B (PCR) (Not Detectd) RSV (PCR) (Not Detectd) SARS-CoV-2 (PCR) (Not Detectd) 05/18/24 05/18/24 05/18/24 Range/Units 11:43 11:43 11:51 WBC (3.8-10.6) k/uL RBC (3.80-5.40) m/uL Hgb (11.4-16.0) gm/dL Hct (34.0-46.0) % MCV (80.0-100.0) fL MCH (25.0-35.0) pg MCHC (31.0-37.0) g/dL RDW (11.5-15.5) % Plt Count (150-450) k/uL MPV Neutrophils % % Lymphocytes % % Monocytes % % Eosinophils % % Basophils % % Neutrophils # (1.3-7.7) k/uL Lymphocytes # (1.0-4.8) k/uL Monocytes # (0-1.0) k/uL Eosinophils # (0-0.7) k/uL Basophils # (0-0.2) k/uL Hypochromasia Macrocytosis PT (10.0-12.5) sec INR (<1.2) APTT (22.0-30.0) sec Sodium (137-145) mmol/L Potassium (3.5-5.1) mmol/L Chloride (98-107) mmol/L Carbon Dioxide (22-30) mmol/L Anion Gap mmol/L BUN (7-17) mg/dL Creatinine (0.52-1.04) mg/dL Est GFR (CKD-EPI)AfAm (>60 ml/min/1.73 sqM) Est GFR (CKD-EPI)NonAf (>60 ml/min/1.73 sqM) Glucose (74-99) mg/dL Plasma Lactic Acid Dennis 0.9 (0.7-2.0) mmol/L Calcium (8.4-10.2) mg/dL Magnesium (1.6-2.3) mg/dL Total Bilirubin (0.2-1.3) mg/dL AST (14-36) U/L ALT (4-34) U/L Alkaline Phosphatase (38-126) U/L Troponin I 0.062 H* (0.000-0.034) ng/mL NT-Pro-B Natriuret Pep pg/mL Total Protein (6.3-8.2) g/dL Albumin (3.5-5.0) g/dL Influenza Type A (PCR) Not Detected (Not Detectd) Influenza Type B (PCR) Not Detected (Not Detectd) RSV (PCR) Not Detected (Not Detectd) SARS-CoV-2 (PCR) Not Detected (Not Detectd) Disposition Clinical Impression: COPD (chronic obstructive pulmonary disease) Disposition: ADMITTED IP TO THIS HOSP Is patient prescribed a controlled substance at d/c from ED?: No Referrals: Elvira Gonzales MD [Primary Care Provider] - 1-2 days Time of Disposition: 14:47
[2024-05-18] MEDS: IPRATROPIUM-ALBUTEROL 3 ML NEB INHALATION STA (11:51)
[2024-05-18 12:12] LABS: Basophils # (A) 0.1 k/uL (0-0.2); Basophils % (A) 1 %; Eosinophils # (A) 0.7 k/uL (0-0.7); Eosinophils % (A) 7 %; HCT 29.3 % (34.0-46.0); Hypochromasia Marked; Lymphocytes # (A) 1.6 k/uL (1.0-4.8); Lymphocytes % (A) 15 %; MCH 30.7 pg (25.0-35.0); MCHC 30.6 g/dL (31.0-37.0); MCV 100.4 fL (80.0-100.0); Macrocytosis Slight; Mean Platelet Volume 7.2; Monocytes # (A) 0.6 k/uL (0-1.0); Monocytes % (A) 6 %; Neutrophils # (A) 7.3 k/uL (1.3-7.7); Neutrophils % (A) 71 %; Platelet Count 551 k/uL (150-450); RBC 2.91 m/uL (3.80-5.40); RDW 15.2 % (11.5-15.5); WBC 10.3 k/uL (3.8-10.6)
[2024-05-18 12:23] LABS: INR 0.9 (<1.2); Partial Thromboplastin Time 21.7 sec (22.0-30.0); Prothrombin Time 10.3 sec (10.0-12.5)
[2024-05-18 12:24] LABS: ALT 16 U/L (4-34); AST 24 U/L (14-36); African American GFR (CKD) 52 (>60 ml/min/1.73 sqM); Albumin 3.3 g/dL (3.5-5.0); Alkaline Phosphatase 44 U/L (38-126); Anion Gap 5 mmol/L; Blood Urea Nitrogen 32 mg/dL (7-17); Calcium 8.9 mg/dL (8.4-10.2); Carbon Dioxide 29 mmol/L (22-30); Chloride 107 mmol/L (98-107); Glucose 51 mg/dL (74-99); Magnesium 2.2 mg/dL (1.6-2.3); Non-African American GFR(CKD) 45 (>60 ml/min/1.73 sqM); Potassium 4.2 mmol/L (3.5-5.1); Sodium 141 mmol/L (137-145); Total Bilirubin 1.1 mg/dL (0.2-1.3); Total Protein 6.3 g/dL (6.3-8.2)
[2024-05-18 12:33] LABS: NT-Pro-B-Type Natriuretic Pept 1480 pg/mL
--- NOTE | 2024-05-18 12:44 | XR ---
EXAMINATION TYPE: XR chest 2V DATE OF EXAM: 05/18/2024 COMPARISON: 05/05/2024 INDICATION: Difficulty breathing TECHNIQUE: Frontal and lateral views of the chest are obtained. FINDINGS: The heart size is enlarged. The pulmonary vasculature is normal. Mild increased lung markings are at the lung bases. A small right pleural effusion is present. Infilt rate appears improved from comparison. Pleural effusion is new. IMPRESSION: 1. Cardiomegaly with mild bibasilar infiltrates. Consider resolving pulmonary edema. Atelectasis coul d be considered. 2. Interval development of a small right pleural effusion [facility], , 05/18/2024 12:42 PM
[2024-05-18] MEDS ORDERED: IPRATROPIUM-ALBUTEROL 3 ML NEB INHALATION PRN (14:47)
[2024-05-18] MEDS ORDERED: NALOXONE 0.4 MG/ML 1 ML VIAL IVP PRN (14:47)
[2024-05-18] MEDS ORDERED: PNEUMONIA PROTOCOL UTILIZED 1 EACH MISC PO PRN (14:47)
[2024-05-18] MEDS ORDERED: DEXTROSE 50% SYRINGE 50 ML IVP PRN ×2 (14:55)
[2024-05-18] MEDS: IPRATROPIUM-ALBUTEROL 3 ML NEB INHALATION SCH (17:00)
[2024-05-18] MEDS: methylPREDNISolone SOD SUCCI 125 MG/2 ML VIAL IV SCH (17:06)
[2024-05-18] MEDS: AZITHROMYCIN 500 MG in SODIUM CHLORIDE 0.9% 250 ML IVPB STA (21:04)
[2024-05-18] MEDS: INSULIN ASPART (NovoLOG) 100 UNIT/ML VIAL SQ SCH (21:09)
[2024-05-18 21:25] LABS: Glucose,Whole Blood 331 mg/dL (70-110)
--- NOTE | 2024-05-19 02:46 | HP ---
HISTORY AND PHYSICAL CHIEF COMPLAINT: Shortness of breath. HISTORY OF PRESENT ILLNESS: This 74-year-old woman with a past history of multiple medical problems, was admitted with shortness of breath, some cough for the last several days. Chest x-ray showed possible pneumonia in the right side. BNP is also elevated. Troponin was found to be 0.062. COVID-19 is negative. Patient was admitted for further evaluation and treatment. There is no history of any fever or rigors. PAST MEDICAL HISTORY: Reviewed include asthma, COPD, and dementia. Rest of chart is also reviewed. HOME MEDICATIONS: Reviewed include Ultram. Doses and rest of medications reviewed, not confirmed yet. ALLERGIES: Codeine. FAMILY HISTORY: Could not be taken because of dementia. SOCIAL HISTORY: Could not be taken because of dementia. REVIEW OF SYSTEMS: Could not be taken because of dementia. PHYSICAL EXAMINATION: VITAL SIGNS: Pulse is 52, blood pressure 114/89, respirations 20. HEENT: Conjunctivae normal. CARDIOVASCULAR: S1 and S2. RESPIRATION: Scattered rhonchi and crackles. ABDOMEN: Soft. LEGS: No edema. No swelling. NERVOUS SYSTEM: Diffusely weak. LABORATORY DATA: WBC 10.3, hemoglobin is 9. ASSESSMENT: 1. Shortness of breath possible asthma, acute asthma exacerbation with right lower lobe pneumonia. 2. Rule out congestive heart failure. 3. Troponin 0.062, rule out acute dyp-GP-huxizxs elevation myocardial infarction. 4. Dementia. 5. History of asthma, chronic obstructive pulmonary disease. 6. Diabetes mellitus, type 2. 7. Multiple complex medical issues. RECOMMENDATION: This 74-year-old woman presented with multiple complex medical issues. We will monitor the patient closely. Bronchodilators, empiric antibiotics. Cardiology, Pulmonology consultations. BNP, 2D echo with Doppler, steroids. Resume home medications once they are confirmed. DVT prophylaxis. Prognosis guarded. Further recommendations to follow. See orders for details. MMODL / IJN: [id number] /
[2024-05-19 06:37] LABS: Basophils % (A) 0 %; Eosinophils # (A) 0.1 k/uL (0-0.7); Eosinophils % (A) 1 %; HCT 32.8 % (34.0-46.0); Hypochromasia Marked; Lymphocytes # (A) 0.4 k/uL (1.0-4.8); Lymphocytes % (A) 6 %; MCH 30.9 pg (25.0-35.0); MCHC 30.5 g/dL (31.0-37.0); MCV 101.5 fL (80.0-100.0); Macrocytosis Slight; Mean Platelet Volume 7.3; Monocytes # (A) 0.2 k/uL (0-1.0); Monocytes % (A) 2 %; Neutrophils # (A) 6.7 k/uL (1.3-7.7); Neutrophils % (A) 91 %; Platelet Count 564 k/uL (150-450); RBC 3.23 m/uL (3.80-5.40); RDW 14.9 % (11.5-15.5); WBC 7.4 k/uL (3.8-10.6)
[2024-05-19 06:44] LABS: Glucose,Whole Blood 216 mg/dL (70-110)
[2024-05-19 07:03] LABS: African American GFR (CKD) 59 (>60 ml/min/1.73 sqM); Anion Gap 3 mmol/L; Blood Urea Nitrogen 29 mg/dL (7-17); Calcium 9.2 mg/dL (8.4-10.2); Carbon Dioxide 25 mmol/L (22-30); Chloride 111 mmol/L (98-107); Glucose 223 mg/dL (74-99); Non-African American GFR(CKD) 51 (>60 ml/min/1.73 sqM); Sodium 139 mmol/L (137-145)
[2024-05-19] MEDS ORDERED: ALBUTEROL HFA INHALER INHALATION PRN (07:05)
[2024-05-19] MEDS ORDERED: IPRATROPIUM-ALBUTEROL 3 ML NEB INHALATION PRN (07:05)
[2024-05-19] MEDS ORDERED: NON FORMULARY DRUG (Insulin Lispro [Humalog Kwikpen] 100 UNIT/ML Insuln.Pen) SQ SCH (07:30)
[2024-05-19 07:34] LABS: Potassium 5.6 mmol/L (3.5-5.1)
--- NOTE | 2024-05-19 07:41 | XR ---
EXAMINATION TYPE: XR chest 1V portable DATE OF EXAM: 05/19/2024 COMPARISON: 05/18/2024 HISTORY: Pneumonia TECHNIQUE: Single frontal view of the chest is obtained. FINDINGS: A diffuse interstitial pattern with small bilateral pleural effusions, cardiomegaly and po stmedian sternotomy changes. Atherosclerotic change aorta. Findings stable. Osseous structures unchan ged. IMPRESSION: 1. Findings suggestive of CHF. Underlying pneumonia not excluded [facility], , 05/19/2024 7:39 AM
[2024-05-19] MEDS: SYMBICORT 160-4.5 MCG INHALER INHALATION SCH (08:42)
[2024-05-19] MEDS ORDERED: CLOPIDOGREL 75 MG TAB PO SCH (09:00)
[2024-05-19] MEDS: AZITHROMYCIN 500 MG TAB PO SCH (09:30)
[2024-05-19] MEDS: ASPIRIN 81 MG PO SCH (09:30)
[2024-05-19] MEDS: PANTOPRAZOLE 40 MG TABLET PO SCH (09:30)
[2024-05-19] MEDS: METOPROLOL SUCCINATE (ER) 50 MG TAB.ER.24H PO SCH (09:30)
[2024-05-19] MEDS: CHOLECALCIFEROL 125 MCG (5000 IU) TABLET PO SCH (09:30)
[2024-05-19] MEDS: VALSARTAN 80 MG TAB PO SCH (09:32)
[2024-05-19] MEDS: DAPAGLIFLOZIN PROPANEDIOL 10 MG TABLET PO SCH (10:20)
--- NOTE | 2024-05-19 12:44 | P.CRDCN ---
History of Present Illness Consult date: 05/19/24 Reason for Consult (text): Dyspnea, troponin indeterminate History of present illness: This is a 74-year-old female patient of Dr. Abdi with past medical history of heart failure with reduced EF of 45% likely ischemic cardiomyopathy, history of coronary artery disease status post CABG, moderate MR, hypertension, diabetes mellitus type 2, obesity, prior CVA after CABG with no residual deficits, COPD, home O2. We have been asked to evaluate the patient for dyspnea and troponin indeterminate. Patient has underlying dementia and is unable to provide accurate information. She presented to the emergency center due to difficulty in breathing. Blood pressure 169/59, heart rate 71, pulse ox 97% on 2 L nasal cannula. Patient has been started on antibiotics and nebulizer treatments. EKG: Sinus bradycardia with left bundle branch block first-degree block Chest x-ray: Cardiomegaly with mild bibasilar infiltrates. Consider resolving pulmonary edema. Atelectasis could be considered. Interval development of small right pleural effusion. Laboratory studies: WBC 7.4, hemoglobin 10, platelet count 564. Sodium 139, potassium 5.6, BUN 29 and creatinine 1.08. A1c 8.2. Troponins 0.062, 0.069, 0.05. proBNP 1480. Influenza A, influenza B, RSV, COVID-19 and Legionella not detected. Home cardiac medications: Aspirin 81 mg daily, atorvastatin 80 mg at bedtime, Plavix 75 mg daily, Toprol-XL 50 mg daily, valsartan 80 mg daily. According to office records, patient is also on Farxiga 10 mg daily, Aldactone 12.5 mg daily, Bumex 1 mg daily Review Of Systems: At the time of my exam: CONSTITUTIONAL: Denies fever or chills. HEENT: Denies blurred vision, vision changes, or eye pain. Denies hemoptysis CARDIOVASCULAR: Denies chest pain. Denies orthopnea. Denies PND. Denies palpitations RESPIRATORY: Denies shortness of breath. GASTROINTESTINAL: Denies abdominal pain. Denies nausea or vomiting. HEMATOLOGIC: Denies bleeding disorders. GENITOURINARY: Denies any blood in urine. SKIN: Denies puritis. Denies rash. Physical examination: Gen: This is a 74-year-old female resting in bed and appears to be in no acute distress. VS: reviewed HEENT: Head is atraumatic, normocephalic. Pupils equal, round. Sclerae is anicteric. NECK: Supple. No JVD. LUNGS: Clear to auscultation. No wheezes or rhonchi. No intercostal retractions. HEART: Regular rate and rhythm. Systolic murmur. ABDOMEN: Soft No tenderness. EXTREMITIES: No pedal edema. No calf tenderness. NEUROLOGICAL: Patient is awake, alert and confused. Assessment: Flat troponin not indicative of acute coronary syndrome Chronic heart failure with reduced EF Possible ischemic cardiomyopathy History of coronary artery disease with previous CABG Moderate MR Hypertension Diabetes mellitus type 2 Obesity CVA COPD Chronic hypoxic respiratory failure on Home O2 Plan: Resume patient's home cardiac medications Add Farxiga 10 mg daily May consider resuming Aldactone tomorrow depending on renal function Obtain 2-D echocardiogram and Doppler study to assess cardiac structure and function Monitor electrolytes and renal function Further recommendations to follow based upon clinical course Thank you kindly for this consultation. Nurse practitioner note has been reviewed, I agree with documented findings and plan of care. Patient was seen and examined. 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, R caratid artery disease, valvular disease, pulmonary htn, bronchitis, home oxygen prn, poor vision/pt cannot recall reason, UTIs, rash/itching, WAS SEEN IN ER 12/2022 FOR N/V Last Myocardial Infarction Date:: 2014 History of Any Multi-Drug Resistant Organisms: ESBL Date of last positivie culture/infection: 04/15/21 MDRO Source:: ESBL URINE Past Surgical History: Cholecystectomy, Coronary Bypass/CABG, Heart Cathete rization With Stent Additional Past Surgical History / Comment(s): PCI/stents in 2009 and 2014, 2017 CABG 3 vessel then sternal debridement for infection/removal of hardware, colonoscopy, bilateral cataract removals. Past Anesthesia/Blood Transfusion Reactions: No Reported Reaction Additional Past Anesthesia/Blood Transfusion Reaction / Comment(s): Claustrophobic Date of Last Stent Placement:: 2014 Past Psychological History: No Psychological Hx Reported Additional Psychological History / Comment(s): Pt's daughter lives with her. Pt states she uses no assistive device. She has a nebulizer and home oxygen which she uses prn. She no longer drives, her mague takes her to [employer]. Smoking Status: Former smoker Past Alcohol Use History: None Reported Additional Past Alcohol Use History / Comment(s): Pt started smoking in 1963 and quit in 2009 Past Drug Use History: None Reported - Past Family History Father Family Medical History: Coronary Artery Disease (CAD), Myocardial Infarction ([place] ) Additional Family Medical History / Comment(s): STENT, OPEN HEART SURGERY Mother History Unknown: Yes Additional Family Medical History / Comment(s): DEPRESSION, mental illness Medications and Allergies Home Medications Medication Instructions Recorded Confirmed Type Atorvastatin [Lipitor] 80 mg PO HS 09/23/20 05/18/24 History Aspirin EC [Ecotrin Low Dose] 81 mg PO DAILY 12/12/21 05/18/24 History Clopidogrel Bisulfate [Plavix] 75 mg PO DAILY 12/12/21 05/18/24 History Insulin Lispro [humaLOG Kwikpen] 15 units SQ AC-TID #0 06/19/22 05/18/24 Rx traMADol HCL 50 mg PO BID 02/21/23 05/18/24 History Metoprolol Succinate [Toprol XL] 50 mg PO DAILY 11/02/23 05/18/24 History Omeprazole [PriLOSEC] 20 mg PO BID 11/02/23 05/18/24 History Budesonide-Formot 160-4.5 Mcg 2 puff INHALATION RT-BID 30 Days 11/05/23 05/18/24 Rx [Symbicort 160-4.5 Mcg Inhaler] #1 each Valsartan [Diovan] 80 mg PO DAILY 03/27/24 05/18/24 History Cholecalciferol [Vitamin D3 (125 125 mcg PO DAILY 05/01/24 05/18/24 History Mcg = 5000 Iu)] Insulin Glargine,Hum.rec.anlog 80 units SQ HS 05/01/24 05/18/24 History [Lantus Solostar Pen] Albuterol Sulfate [Ventolin HFA] 2 puff INHALATION RT-QID PRN 05/18/24 05/18/24 History Ipratropium-Albuterol Nebulize 3 ml INHALATION RT-QID PRN 05/18/24 05/18/24 History [Duoneb 0.5 mg-3 mg/3 ml Soln] predniSONE [Deltasone] See Taper PO DIRECTED 05/18/24 05/18/24 History Allergies Allergy/AdvReac Type Severity Reaction Status Date / Time codeine AdvReac Nausea & Verified 05/18/24 15:58 Vomiting Physical Exam Vitals: Vital Signs Temp Pulse Pulse Resp BP BP Pulse Ox 05/19/24 08:42 77 100 05/19/24 04:00 97.9 F 71 24 169/59 97 05/19/24 00:00 98.0 F 67 21 169/85 94 L 05/18/24 20:58 67 05/18/24 20:48 66 05/18/24 20:00 97.8 F 62 19 145/85 94 L 05/18/24 17:11 61 05/18/24 17:00 59 L 05/18/24 13:33 52 L 140/89 97 05/18/24 12:02 52 L 05/18/24 11:52 53 L 05/18/24 11:21 97.0 F L 51 L 20 124/44 93 L Intake and Output 05/18/24 05/19/24 05/19/24 22:59 06:59 14:59 Output Total 1000 Balance -1000 Output: Urine 1000 Other: # Bowel Movements 1 Weight 83.915 kg 84.2 kg Results 05/19/24 06:12 05/19/24 06:12 Cardiac Enzymes 05/18/24 05/18/24 05/18/24 Range/Units 11:43 11:43 14:56 AST 24 (14-36) U/L Troponin I 0.062 H* 0.069 H* (0.000-0.034) ng/mL 05/18/24 Range/Units 18:17 AST (14-36) U/L Troponin I 0.050 H* (0.000-0.034) ng/mL Coagulation 05/18/24 Range/Units 11:43 PT 10.3 (10.0-12.5) sec APTT 21.7 L (22.0-30.0) sec CBC 05/18/24 05/19/24 Range/Units 11:43 06:12 WBC 10.3 7.4 (3.8-10.6) k/uL RBC 2.91 L 3.23 L (3.80-5.40) m/uL Hgb 9.0 L 10.0 L (11.4-16.0) gm/dL Hct 29.3 L 32.8 L (34.0-46.0) % Plt Count 551 H 564 H (150-450) k/uL Comprehensive Metabolic Panel 05/18/24 05/19/24 Range/Units 11:43 06:12 Sodium 141 139 (137-145) mmol/L Potassium 4.2 5.6 H (3.5-5.1) mmol/L Chloride 107 111 H (98-107) mmol/L Carbon Dioxide 29 25 (22-30) mmol/L BUN 32 H 29 H (7-17) mg/dL Creatinine 1.19 H 1.08 H (0.52-1.04) mg/dL Glucose 51 L 223 H (74-99) mg/dL Calcium 8.9 9.2 (8.4-10.2) mg/dL AST 24 (14-36) U/L ALT 16 (4-34) U/L Alkaline Phosphatase 44 (38-126) U/L Total Protein 6.3 (6.3-8.2) g/dL Albumin 3.3 L (3.5-5.0) g/dL Current Medications Generic Name Dose Route Start Last Admin Trade Name Freq PRN Reason Stop Dose Admin Albuterol/Ipratropium 3 ml 05/18/24 16:00 05/19/24 08:42 Ipratropium-Albuterol 3 Ml Neb INHALATION 3 ml RT-QID [facility] Administration Albuterol/Ipratropium 3 ml 05/18/24 14:47 Ipratropium-Albuterol 3 Ml Neb INHALATION RT-Q2H PRN Shortness Of Breath Or Wheezing Aspirin 81 mg 05/19/24 09:00 Aspirin 81 Mg PO DAILY [facility] Atorvastatin Calcium 80 mg 05/19/24 21:00 Atorvastatin 80 Mg Tab PO HS [facility] Azithromycin 500 mg 05/19/24 09:00 Azithromycin 500 Mg Tab PO 05/20/24 09:01 DAILY [facility] Protocol Budesonide/Formoterol Fumarate 2 puff 05/19/24 08:00 05/19/24 08:42 Symbicort 160-4.5 Mcg Inhaler INHALATION 2 puff RT-BID [facility] Administration Cholecalciferol 125 mcg 05/19/24 09:00 Cholecalciferol 125 Mcg (5000 Iu) Tablet PO DAILY [facility] Clopidogrel Bisulfate 75 mg 05/19/24 09:00 Clopidogrel 75 Mg Tab PO DAILY [facility] Dextrose/Water 25 ml 05/18/24 14:55 Dextrose 50% Syringe 50 Ml IVP PER PROTOCOL PRN Hypoglycemia Protocol Dextrose/Water 50 ml 05/18/24 14:55 Dextrose 50% Syringe 50 Ml IVP PER PROTOCOL PRN Hypoglycemia Protocol Ceftriaxone Sodium 2 gm/ 50 mls @ 100 mls/hr 05/19/24 09:00 Sodium Chloride IVPB 05/22/24 09:29 Q24HR [facility] Protocol Insulin Aspart 0 unit 05/18/24 17:30 05/19/24 06:48 Insulin Aspart (Novolog) 100 Unit/Ml Vial SQ 4 unit ACHS [facility] Administration Protocol Methylprednisolone Sodium Succinate 60 mg 05/18/24 15:00 05/19/24 04:47 Methylprednisolone Sod Succi 125 Mg/2 Ml Vial IV 60 mg Q6H [facility] Administration Metoprolol Succinate 50 mg 05/19/24 09:00 Metoprolol Succinate (Er) 50 Mg Tab.Er.24h PO DAILY [facility] Miscellaneous Information 1 each 05/18/24 14:47 Pneumonia Protocol Utilized 1 Each Misc PO ONCE PRN Per Protocol Naloxone HCl 0.2 mg 05/18/24 14:47 Naloxone 0.4 Mg/Ml 1 Ml Vial IVP Q2M PRN Opioid Reversal Pantoprazole Sodium 40 mg 05/19/24 07:30 Pantoprazole 40 Mg Tablet PO AC-BRKFST [facility] Valsartan 80 mg 05/19/24 09:00 Valsartan 80 Mg Tab PO DAILY [facility] Intake and Output 05/18/24 05/19/24 05/19/24 22:59 06:59 14:59 Output Total 1000 Balance -1000 Output: Urine 1000 Other: # Bowel Movements 1 Weight 83.915 kg 84.2 kg 05/19/24 06:12 05/19/24 06:12
[2024-05-19 13:45] LABS: Glucose,Whole Blood 183 mg/dL (70-110)
[2024-05-19] MEDS: FUROSEMIDE 10 MG/ML 2 ML VIAL IV SCH (13:54)
[2024-05-19] MEDS: FORMOTEROL FUMARATE 20 MCG/2 ML NEBU INHALATION SCH (15:43)
[2024-05-19] MEDS: BUDESONIDE 1 MG/2 ML NEBU INHALATION SCH (15:43)
--- NOTE | 2024-05-19 15:55 | CT ---
EXAMINATION TYPE: CT angio chest DATE OF EXAM: 05/19/2024 3:35 PM COMPARISON: 11/08/2017 HISTORY: Shortness of breath Technique: Multiple axial images are obtained through the chest following the uneventful administration nonionic IV contrast. Exam was performed according to department CTA Chest protocol. 3-D postprocessing was p erformed. Findings: There is no pulmonary embolism. There are bilateral pleural effusions, moderate on the right and small on the left. There is consolid ative opacity in the right lung base consistent with atelectasis or pneumonic infiltrate and follow-u p is recommended. There is no pneumothorax. The ascending thoracic aorta is borderline enlarged measuring approximately 3.9-4.0 cm. Limited scanning through the upper abdomen reveals no gross abnormality. No focal osseous lesions are seen. IMPRESSION: 1. No evidence pulmonary embolus. 2. Moderate right pleural effusion and small left pleural effusion. 3. Right lower lobe pneumonic infiltrate or atelectasis. 4. Mild dilatation the ascending thoracic aorta measuring 3.9-4.0 cm. [facility], , 05/19/2024 3:53 PM
[2024-05-19 17:22] LABS: Glucose,Whole Blood 204 mg/dL (70-110)
--- NOTE | 2024-05-19 18:16 | P.CNPUL ---
History of Present Illness Consult date: 05/19/24 Reason for consult: dyspnea History of present illness: On 05/19/2024, the patient is being seen in consultation as the patient presented to the emergency department with some symptoms of increased shortness of breath. The patient apparently had a fall when she was feeling quite weak. She has known history of congestion heart failure, ischemic cardiomyopathy with an ejection fraction of 45%. The patient is also known to have coronary artery disease, previous bypass surgery along with moderate mitral regurgitation, hypertension, diabetes mellitus type 2 and previous history of CVA that occurred following a bypass surgery without any residual deficits. She is obese and she is also known to have COPD, O2 dependent. During this current admission, the patient's chest x-ray is consistent with CHF with increased pulm vascular markings bilaterally. The viral screen has been negative. proBNP level was 1480. Creatinine is at 1.08 with a BUN of 29 and sodium levels at 139. CBC is within normal limits. The patient has a D-dimer of 1.18. The CTA of the chest was completed and the patient was found to have no evidence of any pulmonary embolism. There is moderate-sized right-sided pleural effusion and small left- sided pleural effusion and some compressive atelectatic changes in the right lung base along with mild dilatation of the ascending aorta measuring 3.9 to 4 cm in size. The patient is currently on 2 L of oxygen by nasal cannula with pulse ox of 96%. She is free of any chest pain. She has some increased edema lower extremities bilaterally. Review of Systems CONSTITUTIONAL: Denies any recent significant weight loss or weight gain. EYES: Denies change in vision. EARS, NOSE, MOUTH, THROAT: Denies headaches, denies sore throat. CARDIOVASCULAR: Denies chest pain, palpitations or syncopal episodes. RESPIRATORY: Positive for shortness of breath, cough, congestion no hemoptysis. GASTROINTESTINAL: Denies change in appetite, denies abdominal pain GENITOURINARY: Denies hematuria, denies infections. MUSKULOSKELETAL: Denies pain, denies swelling. INTEGUMENTARY: Denies rash, denies eczema. NEUROLOGICAL: Denies recent memory loss, no recent seizure activity. PSYCHIATRIC: Denies anxiety, denies depression. HEMATOLOGIC/LYMPHATIC: Denies anemia, denies enlarged lymph nodes. Constitutional: Reports fatigue, Reports weakness, Reports weight gain Eyes: denies as per HPI, denies blurred vision, denies bulging eye, denies decreased vision, denies diplopia, denies discharge, denies dry eye, denies irritation, denies itching, denies pain, denies photophobia, denies loss of peripheral vision, denies loss of vision, denies tunnel vision/blind spots Ears: deny: decreased hearing, ear discharge, earache, tinnitus Ears, nose, mouth and throat: Reports as per HPI Breasts: absent: as per HPI, change in shape, gynecomastia, masses, nipple discharge, pain, skin changes, swelling Breasts: Reports as per HPI Cardiovascular: Reports decreased exercise tolerance, Reports dyspnea on exertion, Reports edema, Reports orthopnea, Reports shortness of breath Respiratory: Reports as per HPI, Reports dyspnea Gastrointestinal: Reports as per HPI Genitourinary: Reports as per HPI Menstruation: Reports as per HPI Musculoskeletal: Reports as per HPI Musculoskeletal: bilateral: ankle swelling, absent: ankle pain, ankle stiffness Integumentary: Reports as per HPI Neurological: Reports as per HPI, Reports balance difficulties, Reports gait dysfunction, Reports weakness Psychiatric: Reports as per HPI Endocrine: Reports as per HPI, Reports fatigue Hematologic/Lymphatic: Reports as per HPI Allergic/Immunologic: Reports as per HPI Past Medical History Past Medical History: Asthma, Coronary Artery Disease (CAD), Chest Pain / Angina, Heart Failure, COPD, CVA/TIA, Dementia, Diabetes Mellitus, Hyperlipidemia, Hypertension, Myocardial Infarction ([place]), Pneumonia, Respiratory Disorder, Syncope, Vascular Disorder Additional Past Medical History / Comment(s): IDDM type II, neuropathy bilateral feet, 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, R caratid artery disease, valvular disease, pulmonary htn, bronchitis, home oxygen prn, poor vision/pt cannot recall reason, UTIs, rash/itching, WAS SEEN IN ER 12/2022 FOR N/V Last Myocardial Infarction Date:: 2014 History of Any Multi-Drug Resistant Organisms: ESBL Date of last positivie culture/infection: 04/15/21 MDRO Source:: ESBL URINE Past Surgical History: Cholecystectomy, Coronary Bypass/CABG, Heart Catheterization With Stent Additional Past Surgical History / Comment(s): PCI/stents in 2009 and 2014, 2017 CABG 3 vessel then sternal debridement for infection/removal of hardware, colonoscopy, bilateral cataract removals. Past Anesthesia/Blood Transfusion Reactions: No Reported Reaction Additional Past Anesthesia/Blood Transfusion Reaction / Comment(s): Claustrophobic Date of Last Stent Placement:: 2014 Past Psychological History: No Psychological Hx Reported Additional Psychological History / Comment(s): Pt's daughter lives with her. Pt states she uses no assistive device. She has a nebulizer and home oxygen which she uses prn. She no longer drives, her mague takes her to appts. Smoking Status: Former smoker Past Alcohol Use History: None Reported Additional Past Alcohol Use History / Comment(s): Pt started smoking in 1963 and quit in 2009 Past Drug Use History: None Reported - Past Family History Father Family Medical History: Coronary Artery Disease (CAD), Myocardial Infarction ([place]) Additional Family Medical History / Comment(s): STENT, OPEN HEART SURGERY Mother History Unknown: Yes Additional Family Medical History / Comment(s): DEPRESSION, mental illness Medications and Allergies Home Medications Medication Instructions Recorded Confirmed Type Atorvastatin [Lipitor] 80 mg PO HS 09/23/20 05/18/24 History Aspirin EC [Ecotrin Low Dose] 81 mg PO DAILY 12/12/21 05/18/24 History Clopidogrel Bisulfate [Plavix] 75 mg PO DAILY 12/12/21 05/18/24 History Insulin Lispro [humaLOG Kwikpen] 15 units SQ AC-TID #0 06/19/22 05/18/24 Rx traMADol HCL 50 mg PO BID 02/21/23 05/18/24 History Metoprolol Succinate [Toprol XL] 50 mg PO DAILY 11/02/23 05/18/24 History Omeprazole [PriLOSEC] 20 mg PO BID 11/02/23 05/18/24 History Budesonide-Formot 160-4.5 Mcg 2 puff INHALATION RT-BID 30 Days 11/05/23 05/18/24 Rx [Symbicort 160-4.5 Mcg Inhaler] #1 each Valsartan [Diovan] 80 mg PO DAILY 03/27/24 05/18/24 History Cholecalciferol [Vitamin D3 (125 125 mcg PO DAILY 05/01/24 05/18/24 History Mcg = 5000 Iu)] Insulin Glargine,Hum.rec.anlog 80 units SQ HS 05/01/24 05/18/24 History [Lantus Solostar Pen] Albuterol Sulfate [Ventolin HFA] 2 puff INHALATION RT-QID PRN 05/18/24 05/18/24 History Ipratropium-Albuterol Nebulize 3 ml INHALATION RT-QID PRN 05/18/24 05/18/24 History [Duoneb 0.5 mg-3 mg/3 ml Soln] predniSONE [Deltasone] See Taper PO DIRECTED 05/18/24 05/18/24 History Allergies Allergy/AdvReac Type Severity Reaction Status Date / Time codeine AdvReac Nausea & Verified 05/18/24 15:58 Vomiting Physical Exam Vitals: Vital Signs Temp Pulse Pulse Resp BP BP Pulse Ox 05/19/24 08:53 76 05/19/24 08:42 77 100 05/19/24 04:00 97.9 F 71 24 169/59 97 05/19/24 00:00 98.0 F 67 21 169/85 94 L 05/18/24 20:58 67 05/18/24 20:48 66 05/18/24 20:00 97.8 F 62 19 145/85 94 L 05/18/24 17:11 61 05/18/24 17:00 59 L 05/18/24 13:33 52 L 140/89 97 05/18/24 12:02 52 L 05/18/24 11:52 53 L Intake and Output 05/18/24 05/19/24 05/19/24 22:59 06:59 14:59 Output Total 1000 Balance -1000 Output: Urine 1000 Other: # Bowel Movements 1 Weight 83.915 kg 84.2 kg GENERAL EXAM: Alert, 73-year-old female, on 2 L of oxygen via nasal cannula, comfortable in no apparent distress. HEAD: Normocephalic. EYES: Normal reaction of pupils, equal size. NOSE: Clear with pink turbinates. THROAT: No erythema or exudates. NECK: No masses, no JVD. CHEST: No chest wall deformity. LUNGS: Equal air entry with scattered rhonchi, crackles in the posterior bases . CVS: S1 and S2 normal with an audible murmur, regular rhythm. ABDOMEN: No hepatosplenomegaly, normal bowel sounds, no guarding or rigidity. SPINE: No scoliosis or deformity SKIN: No rashes CENTRAL NERVOUS SYSTEM: No focal deficits, tone is normal in all 4 extremities. EXTREMITIES: There is peripheral edema. No clubbing, no cyanosis. Peripheral pulses are intact. Results - Laboratory Findings CBC and BMP: 05/19/24 06:12 05/19/24 06:12 PT/INR, D-dimer PT 10.3 sec (10.0-12.5) 05/18/24 11:43 INR 0.9 (<1.2) 05/18/24 11:43 Abnormal lab findings: Abnormal Labs 05/18/24 05/18/24 05/18/24 11:43 11:43 11:43 RBC 2.91 L Hgb 9.0 L Hct 29.3 L MCV 100.4 H D MCHC 30.6 L Plt Count 551 H Lymphocytes # APTT 21.7 L Potassium Chloride BUN 32 H Creatinine 1.19 H Glucose 51 L POC Glucose (mg/dL) Hemoglobin A1c Troponin I Albumin 3.3 L 05/18/24 05/18/24 05/18/24 11:43 14:56 18:17 RBC Hgb Hct MCV MCHC Plt Count Lymphocytes # APTT Potassium Chloride BUN Creatinine Glucose POC Glucose (mg/dL) Hemoglobin A1c Troponin I 0.062 H* 0.069 H* 0.050 H* Albumin 05/18/24 05/19/24 05/19/24 21:23 06:12 06:12 RBC 3.23 L Hgb 10.0 L Hct 32.8 L MCV 101.5 H MCHC 30.5 L Plt Count 564 H Lymphocytes # 0.4 L APTT Potassium Chloride BUN Creatinine Glucose POC Glucose (mg/dL) 331 H Hemoglobin A1c 8.2 H Troponin I Albumin 05/19/24 05/19/24 06:12 06:43 RBC Hgb Hct MCV MCHC Plt Count Lymphocytes # APTT Potassium 5.6 H Chloride 111 H BUN 29 H Creatinine 1.08 H Glucose 223 H POC Glucose (mg/dL) 216 H Hemoglobin A1c Troponin I Albumin - Diagnostic Findings Chest x-ray: image reviewed Assessment and Plan Plan: Acute hypoxemic respiratory failure secondary to a combination of diastolic congestive heart failure and development of bilateral pleural effusions right more than left and secondary shortness of breath. The patient is currently on 2 L of O2 nasal cannula Severe oxygen dependent COPD with an FEV1 value of 54% of predicted LEO, severe with an AHI of 68 and the patient has been maintained on VPAP auto, not much compliant to her BiPAP therapy on outpatient basis History of previous COVID-19 infection Hyperlipidemia Hypertension Diabetes mellitus, type II Coronary artery disease with previous coronary bypass grafting and previous stenting Previous history of ESBL producing UTI urinary tract infection Obesity History of CVA/TIA Recent hospitalization for a left facial cellulitis Plan: Presentation is most consistent with CHF and fluid overload about the pleural effusion titrate oxygen to maintain saturation above 90% IV Lasix 20 mg every 12 hours Ask the patient to bring in her own BiPAP machine from home for inpatient use Antibiotic coverage essentially empiric in nature We will titrate steroids as of tomorrow We will continue to follow
[2024-05-19 20:39] LABS: Glucose,Whole Blood 223 mg/dL (70-110)
[2024-05-19] MEDS: ATORVASTATIN 80 MG TAB PO SCH (20:43)
--- NOTE | 2024-05-19 20:58 | PN ---
PROGRESS NOTE DATE OF SERVICE: 05/19/2024 SUBJECTIVE: This is a 74-year-old woman who was admitted with shortness of breath and asthma exacerbation and also right lower pneumonia. The patient is mildly confused also. Most recent chest x-ray also reviewed. CHF is also a possibility. The troponin is found to be 0.050. Legionella is negative. BNP is 1480. COVID is also negative. PAST MEDICAL HISTORY: Reviewed. REVIEW OF SYSTEMS: A 14-point review is negative except as mentioned earlier. CURRENT MEDICATIONS: Reviewed include Zosyn, Zithromax. PHYSICAL EXAMINATION: VITAL SIGNS: Pulse is 77, blood pressure is ntd, respirations 24. Pulse ox 97%. HEENT: Conjunctivae normal. NECK: No jugular venous distention. CARDIOVASCULAR: S1, S2. RESPIRATIONS: Bilateral scattered rhonchi. ABDOMEN: Soft. NERVOUS SYSTEM: Nonfocal. LABORATORY DATA: Reviewed. ASSESSMENT: 1. Shortness of breath, possible asthma acute exacerbation as well as right lower pneumonia possibly gram-negative. 2. Rule out congestive heart failure. 3. Troponin 0.062, rule out acute opr-DU-rudnccn-elevation myocardial infarction. 4. Dementia. 5. History of asthma, chronic obstructive pulmonary disease. 6. Diabetes mellitus, type 2. 7. Multiple complex medical issues. RECOMMENDATION: Recommend to continue current management and continue symptomatic treatment. Continue intensive bronchodilators, IV steroids, antibiotics. Closely follow with Pulmonary and Cardiology. Guarded prognosis. Further recommendations to follow. Potassium was 5.6. Repeat labs. Repeat lytes. The patient is on IV Lasix also. MMODL / IJN: [id number] / [facility]
[2024-05-19] MEDS ORDERED: NON FORMULARY DRUG (Insulin Glargine,Hum.Rec.Anlog [Lantus Solostar Pen] 100 UNIT/ML Insul SQ SCH (21:00)
[2024-05-20 06:08] LABS: Glucose,Whole Blood 277 mg/dL (70-110)
--- NOTE | 2024-05-20 11:01 | CA ---
Transthoracic Echo Report Name: Nancy Shah Age: 74 Gender: F : 1950 Exam Date: 05/19/2024 14:48 Exam Location: [facility] Ht (in): 63 Wt (lb): 185 Ordering Physician: Cinthia Galloway Attending/Referring Phys: [id number], Laverne Stitch Welder Audrey Ferrer RDCS Procedure CPT: Indications: LVF Cardiac Hx: LBBB, CABG Technical Quality: Fair Contrast 1: Total Dose (mL): Contrast 2: Total Dose (mL): MEASUREMENTS (Male / Female) Normal Values 2D ECHO LV Diastolic Diameter PLAX 4.8 cm 4.2 - 5.9 / 3.9 - 5.3 cm LV Systolic Diameter PLAX 2.1 cm IVS Diastolic Thickness 1.5 cm 0.6 - 1.0 / 0.6 - 0.9 cm LVPW Diastolic Thickness 1.5 cm 0.6 - 1.0 / 0.6 - 0.9 cm LV Relative Wall Thickness 0.6 RV Internal Dim ED PLAX 3.0 cm LA Systolic Diameter LX 4.1 cm 3.0 - 4.0 / 2.7 - 3.8 cm LA Volume 112.5 cm??? 18 - 58 / 22 - 52 cm??? LA Volume Index 57.3 cm???/m??? 16 - 28 cm???/m??? M-MODE Aortic Root Diameter MM 3.2 cm AV Cusp Separation MM 2.0 cm DOPPLER AV Peak Velocity 171.4 cm/s AV Peak Gradient 11.8 mmHg AV Mean Velocity 116.6 cm/s AV Mean Gradient 6.0 mmHg AV Velocity Time Integral 41.3 cm MV Peak Velocity 212.5 cm/s MV Peak Gradient 18.1 mmHg MV Mean Velocity 113.3 cm/s MV Mean Gradient 6.1 mmHg MV Velocity Time Integral 66.4 cm MV Area PHT 2.4 cm??? Mitral E Point Velocity 182.1 cm/s Mitral A Point Velocity 163.7 cm/s Mitral E to A Ratio 1.1 MV Deceleration Time 311.4 ms FINDINGS Left Ventricle Left ventricular ejection fraction is estimated at 65-70%. Left ventricular cavity size normal. Moderate concentric left ventricular hypertrophy. Right Ventricle Normal right ventricular size. Unable to estimate the right ventricular systolic pressure. Right Atrium Right atrium not well visualized. Left Atrium Mildly increased left atrial diameter. Severely increased left atrial volume. Moderately increased left atrial area. Mitral Valve Moderate thickening/calcification of the anterior mitral valve leaflet. Moderate thickening/calcification of the posterior mitral valve leaflet. Trace to mild mitral regurgitation. Moderate mitral stenosiswith mean gradient of 6 mmhg Aortic Valve Thickened aortic valve without stenosis. Tricuspid Valve Structurally normal tricuspid valve. No tricuspid stenosis, regurgitation or prolapse. Pulmonic Valve Pulmonic valve not well visualized. Pericardium No pericardial effusion. Aorta Normal size aortic root and proximal ascending aorta. CONCLUSIONS Hyperdynamic LV. The ejection fraction is 65 to 70% with moderate concentric LVH Extremely calcified and thickened mitral valve leaflets with moderate mitral stenosis Unable to estimate the pulmonary artery systolic pressure Severe biatrial enlarged Previewed by: Dr. Neri De Los Santos MD (Electronically Signed) Final Date: 20 May 2024 11:00
[2024-05-20 11:23] LABS: Glucose,Whole Blood 300 mg/dL (70-110)
[2024-05-20] MEDS: VALSARTAN 80 MG TAB PO STA (11:37)
--- NOTE | 2024-05-20 12:28 | CDI ---
Documentation Clarification Form Date: 05/20/2024 11:43:22 AM From: Grace Caballero RN CCDS Phone: [phone] Admit Date: 05/19/2024 12:26:00 PM Patient Name: Nancy Shah Visit Number: [id number] Discharge Date: ATTENTION: The Clinical Documentation Specialists (CDI) and [facility] Coding Staff appreciate your assistance in clarifying documentation. Please respond to the clarification below the line at the bottom and electronically sign. The CDI & [facility] Coding staff will review the response and follow-up if needed. Please note: Queries are made part of the Legal Health Record. If you have any questions, please contact the author of this message via ITS. Doctor: Irwin Arredondo Conflicting documentation has been found in the medical record. As attending physician, please provide clarification. Chronic Heart Failure with reduced EF, 05/19, Cardiology Consult Acute on Chronic Diastolic Congestive Heart Failure, 05/19, Pulmonary Consult. History/Risk Factors: 74 year old Female presented to the ED for shortness of breath and cough for last several days. Medical history: Asthma, COPD, Dementia, DM2 and CHF. HP, 05/18. Clinical Indicators: ECHO 05/19: Hyperdynamic LV. The ejection fraction is 65-70% with moderate concentric LVH. Extremely calcified and thickened mitral valve leaflets with moderate mitral stenosis. Unable to estimate the pulmonary artery systolic pressure. Severe bilateral enlarged. CXR, 05/18: Cardiomegaly with mild bibasilar infiltrates. Interval development of a small right pleural effusion. CXR, 05/19 A diffuse interstitial pattern with small bilateral pleural effusions. Cardiomegaly and post median sternotomy changes. Atherosclerotic change arota CTA, 05/19: Moderate right pleural effusion and small left pleural effusion. Right lower lobe pneumonic infiltrate or atelectasis. Mild dilation the ascending thoracic aorta measuring 3.9 4.0cm Treatment: 05/19 Farxiga PO Daily; 05/19 Lasix IV Q12H; 05/19 Toprol Xl PO Daily; Please clarify which diagnosis is most appropriate: [ ] Chronic Systolic Heart Failure [ ] Acute on Chronic Systolic Heart Failure [ ] Chronic Diastolic Heart Failure [ ] Acute on Chronic Diastolic Heart failure [ ] Other (please specify) [ ] Unable to determine (Template Last Revised: October 2020) Acute on Chronic Diastolic Heart failure MTDD
--- NOTE | 2024-05-20 12:39 | XR ---
EXAMINATION TYPE: XR chest 1V portable DATE OF EXAM: 05/20/2024 COMPARISON: 05/19/2024 HISTORY: Shortness of breath TECHNIQUE: Single frontal view of the chest is obtained. FINDINGS: Remaining with point median sternotomy changes. Diffuse interstitial pattern with small ri ght effusion and bibasilar consolidation. A tiny left pleural effusion. Osteopenia with arthropathy a nd shoulders and degenerative change of the spine. Atherosclerotic change aorta. IMPRESSION: Correlate for mild venous congestion with small right pleural effusion and basilar infil trate. [facility], , 05/20/2024 12:36 PM
--- NOTE | 2024-05-20 12:55 | CDI ---
Documentation Clarification Form Date: 05/20/2024 12:36:15 PM From: Grace Caballero RN CCDS Phone: [phone] Admit Date: 05/19/2024 12:26:00 PM Patient Name: Nancy Shah Visit Number: [id number] Discharge Date: ATTENTION: The Clinical Documentation Specialists (CDI) and [facility] Coding Staff appreciate your assistance in clarifying documentation. Please respond to the clarification below the line at the bottom and electronically sign. The CDI & [facility] Coding staff will review the response and follow-up if needed. Please note: Queries are made part of the Legal Health Record. If you have any questions, please contact the author of this message via ITS. Doctor: Irwin Arredondo There is documentation of rule out acute non St segment myocardial infarction 05/19, Medicine note. .Additional clarification is requested. History/Risk Factors: 74 year old Female presented to the ED for shortness of breath and cough for last several days. Medical history: Asthma, COPD, Dementia, DM2 and CHF. HP, 05/18. Clinical Indicators: Troponin, 05/18: 0.062; 0.069; 0.059 ECHO 05/19: Hyperdynamic LV. The ejection fraction is 65-70% with moderate concentric LVH. Extremely calcified and thickened mitral valve leaflets with moderate mitral stenosis. Unable to estimate the pulmonary artery systolic pressure. Severe bilateral enlarged. CXR, 05/18: Cardiomegaly with mild bibasilar infiltrates. Interval development of a small right pleural effusion. CXR, 05/19 A diffuse interstitial pattern with small bilateral pleural effusions. Cardiomegaly and post median sternotomy changes. Atherosclerotic change arota Cardiology consult, 05/19: Flat troponin not indicative of acute coronary syndrome. Treatment: 05/19 Farxiga PO Daily; 05/19 Lasix IV Q12H; 05/19 Toprol Xl PO Daily Can you please clarify Acute non ST segment myocardial infarction? [ ] Acute NSTEMI Type 2 due to Acute on chronic exacerbation of diastolic CHF [ ] Acute NSTEMI ruled out [ ] Other, please specify [ ] Unable to determine (Template Last Revised: October 2020) Unable to determine MTDD
--- NOTE | 2024-05-20 13:37 | P.PN ---
Subjective Progress Note Date: 05/20/24 On 05/19/2024, the patient is being seen in consultation as the patient presented to the emergency department with some symptoms of increased shortness of breath. The patient apparently had a fall when she was feeling quite weak. She has known history of congestion heart failure, ischemic cardiomyopathy with an ejection fraction of 45%. The patient is also known to have coronary artery disease, previous bypass surgery along with moderate mitral regurgitation, hypertension, diabetes mellitus type 2 and previous history of CVA that occurred following a bypass surgery without any residual deficits. She is obese and she is also known to have COPD, O2 dependent. During this current admission, the patient's chest x-ray is consistent with CHF with increased pulm vascular markings bilaterally. The viral screen has been negative. proBNP level was 1480. Creatinine is at 1.08 with a BUN of 29 and sodium levels at 139. CBC is within normal limits. The patient has a D-dimer of 1.18. The CTA of the chest was completed and the patient was found to have no evidence of any pulmonary embolism. There is moderate-sized right-sided pleural effusion and small left- sided pleural effusion and some compressive atelectatic changes in the right lung base along with mild dilatation of the ascending aorta measuring 3.9 to 4 cm in size. The patient is currently on 2 L of oxygen by nasal cannula with pulse ox of 96%. She is free of any chest pain. She has some increased edema lower extremities bilaterally. 05/20/2024, the patient is being seen for a follow-up. On today's evaluation, the patient seems to be slightly improved compared to yesterday. The patient is still receiving diuretics and the patient is -3.1 liters over the past 24 hours. The patient is on IV Lasix for now 20 mg every 12 hours. Noted the patient's troponins were elevated and the troponin was at 0.06, 0.06 and 0.05. The patient was seen by cardiology and the patient is going to undergo a cardiac catheterization today. She remains on metoprolol 50 mg twice a day. She is also on high-dose statins 80 mg p.o. daily. She is on aspirin. She is on DuoNeb nebulized treatments and empiric antibiotic coverage with IV Rocephin and Zithromax. She is also on valsartan 160 mg p.o. daily for blood pressure control. She is currently on oxygen 2 L/min nasal cannula. Objective - Vital Signs Vital signs: Vital Signs Temp 97.6 F 05/20/24 03:30 Pulse 76 05/20/24 08:14 Resp 18 05/20/24 03:31 BP 154/64 05/20/24 03:30 Pulse Ox 97 05/20/24 03:31 FiO2 Intake & Output 05/19/24 05/20/24 05/20/24 18:59 06:59 18:59 Intake Total 10 Output Total 1400 1750 Balance -1400 -1740 Weight 85.5 kg Intake: IV 10 0.9 10 Output: Urine 1400 1750 Other: Voiding Method External Catheter # Bowel Movements 1 - Exam GENERAL EXAM: Alert, 73-year-old female, on 2 L of oxygen via nasal cannula, comfortable in no apparent distress. HEAD: Normocephalic. EYES: Normal reaction of pupils, equal size. NOSE: Clear with pink turbinates. THROAT: No erythema or exudates. NECK: No masses, no JVD. CHEST: No chest wall deformity. LUNGS: Equal air entry with scattered rhonchi, crackles in the posterior bases . CVS: S1 and S2 normal with an audible murmur, regular rhythm. ABDOMEN: No hepatosplenomegaly, normal bowel sounds, no guarding or rigidity. SPINE: No scoliosis or deformity SKIN: No rashes CENTRAL NERVOUS SYSTEM: No focal deficits, tone is normal in all 4 extremities. EXTREMITIES: There is peripheral edema. No clubbing, no cyanosis. Peripheral pulses are intact. - Labs CBC & Chem 7: 05/19/24 06:12 05/19/24 06:12 Labs: Abnormal Lab Results - Last 24 Hours (Table) 05/19/24 05/19/24 05/19/24 Range/Units 13:44 15:56 17:21 D-Dimer 1.18 H (<0.60) mg/L FEU POC Glucose (mg/dL) 183 H 204 H (70-110) mg/dL 05/19/24 05/20/24 Range/Units 20:38 06:07 D-Dimer (<0.60) mg/L FEU POC Glucose (mg/dL) 223 H 277 H (70-110) mg/dL Microbiology - Last 24 Hours (Table) 09/22/24 16:15 Blood Culture - Preliminary Blood Assessment and Plan Plan: Acute hypoxemic respiratory failure secondary to a combination of diastolic congestive heart failure and development of bilateral pleural effusions right more than left and secondary shortness of breath. The patient is currently on 2 L of O2 nasal cannula Troponin leak, versus NSTEMI and the patient is going to undergo a cardiac catheterization today Severe oxygen dependent COPD with an FEV1 value of 54% of predicted LEO, severe with an AHI of 68 and the patient has been maintained on VPAP auto, not much compliant to her BiPAP therapy on outpatient basis History of previous COVID-19 infection Hyperlipidemia Hypertension Diabetes mellitus, type II Coronary artery disease with previous coronary bypass grafting and previous stenting Previous history of ESBL producing UTI urinary tract infection Obesity History of CVA/TIA Recent hospitalization for a left facial cellulitis Plan: Cardiac catheterization today Presentation is most consistent with CHF and fluid overload about the pleural effusion titrate oxygen to maintain saturation above 90% IV Lasix 20 mg every 12 hours, the patient responding to diuresis and the patient is negative fluid balance Ask the patient to bring in her own BiPAP machine from home for inpatient use Antibiotic coverage essentially empiric in nature We will titrate steroids as of tomorrow We will continue to follow
--- NOTE | 2024-05-20 13:40 | P.PN ---
Subjective Progress Note Date: 05/20/24 Reason for Consult (text): Dyspnea, troponin indeterminate History of present illness: This is a 74-year-old female patient of Dr. Abdi with past medical history of heart failure with reduced EF of 45% likely ischemic cardiomyopathy, history of coronary artery disease status post CABG, moderate MR, hypertension, diabetes mellitus type 2, obesity, prior CVA after CABG with no residual deficits, COPD, home O2. We have been asked to evaluate the patient for dyspnea and troponin indeterminate. Patient has underlying dementia and is unable to provide accurate information. She presented to the emergency center due to difficulty in breathing. Blood pressure 169/59, heart rate 71, pulse ox 97% on 2 L nasal cannula. Patient has been started on antibiotics and nebulizer treatments. EKG: Sinus bradycardia with left bundle branch block first-degree block Chest x-ray: Cardiomegaly with mild bibasilar infiltrates. Consider resolving pulmonary edema. Atelectasis could be considered. Interval development of small right pleural effusion. Laboratory studies: WBC 7.4, hemoglobin 10, platelet count 564. Sodium 139, potassium 5.6, BUN 29 and creatinine 1.08. A1c 8.2. Troponins 0.062, 0.069, 0.05. proBNP 1480. Influenza A, influenza B, RSV, COVID-19 and Legionella not detected. Home cardiac medications: Aspirin 81 mg daily, atorvastatin 80 mg at bedtime, Plavix 75 mg daily, Toprol-XL 50 mg daily, valsartan 80 mg daily. According to office records, patient is also on Farxiga 10 mg daily, Aldactone 12.5 mg daily, Bumex 1 mg daily 05/20 Patient is seen today in follow-up of the cardiac stepdown unit. She states her breathing is little bit better. She states she did not sleep well last night. She continues to have a little bit of a cough. Lower extremity edema is improved. Blood pressure 180/74, heart rate 59, pulse ox 96% on 2 L nasal cannula. Yesterday, pulmonary medicine started patient on IV Lasix 20 mg every 12 hours. Chest x-ray performed 05/20 reveals correlate for mild venous congestion with small right pleural effusion and basilar infiltrate. CTA of the chest reveals no evidence of pulmonary embolus, moderate right pleural effusion and small left pleural effusion, right lower lobe pneumonic infiltrate or atelectasis. Mild dilation of the ascending aortic measuring 3.9- 4.0 cm. Echocardiogram reveals EF of 65 to 70% with moderate concentric left ventricular hypertrophy, moderate mitral stenosis. Severe biatrial enlargement. Physical examination: Gen: This is a 74-year-old female resting in bed and appears to be in no acute distress. VS: reviewed HEENT: Head is atraumatic, normocephalic. Pupils equal, round. Sclerae is anicteric. NECK: Supple. No JVD. LUNGS: Clear to auscultation. No wheezes or rhonchi. No intercostal retractions. HEART: Regular rate and rhythm. Systolic murmur. ABDOMEN: Soft No tenderness. EXTREMITIES: No pedal edema. No calf tenderness. NEUROLOGICAL: Patient is awake, alert and confused. Assessment: Flat troponin not indicative of acute coronary syndrome Chronic heart failure with reduced EF Possible ischemic cardiomyopathy History of coronary artery disease with previous CABG Moderate MR Hypertension Diabetes mellitus type 2 Obesity CVA COPD Chronic hypoxic respiratory failure on Home O2 Plan: Continue patient's home cardiac medications Continue Farxiga 10 mg daily Continue IV Lasix 20 mg every 12 hours for another day Increase valsartan to 160 mg daily May consider resuming Aldactone tomorrow depending on renal function Monitor electrolytes and renal function Further recommendations to follow based upon clinical course Nurse practitioner note has been reviewed, I agree with documented findings and plan of care. Patient was seen and examined. Objective - Vital Signs Vital signs: Vital Signs Temp 97.6 F 05/20/24 08:00 Pulse 76 05/20/24 08:14 Resp 18 05/20/24 08:00 BP 180/74 05/20/24 08:00 Pulse Ox 96 05/20/24 08:00 FiO2 Intake & Output 05/19/24 05/20/24 05/20/24 18:59 06:59 18:59 Intake Total 10 Output Total 1400 1750 150 Balance -1400 -1740 -150 Weight 85.5 kg Intake: IV 10 0.9 10 Output: Urine 1400 1750 150 Other: Voiding Method External Catheter External Catheter # Voids 1 # Bowel Movements 1 2 - Labs CBC & Chem 7: 05/19/24 06:12 05/19/24 06:12 Labs: Abnormal Lab Results - Last 24 Hours (Table) 05/19/24 05/19/24 05/19/24 Range/Units 13:44 15:56 17:21 D-Dimer 1.18 H (<0.60) mg/L FEU POC Glucose (mg/dL) 183 H 204 H (70-110) mg/dL 05/19/24 05/20/24 Range/Units 20:38 06:07 D-Dimer (<0.60) mg/L FEU POC Glucose (mg/dL) 223 H 277 H (70-110) mg/dL Microbiology - Last 24 Hours (Table) 05/18/24 16:15 Blood Culture - Preliminary Blood
[2024-05-20] MEDS: HEPARIN SODIUM,PORCINE 5,000 UNIT/ML 1 ML VIAL SQ SCH (15:39)
[2024-05-20] MEDS: methylPREDNISolone SOD SUCCI 125 MG/2 ML VIAL IV SCH (15:40)
[2024-05-20 16:45] LABS: Glucose,Whole Blood 227 mg/dL (70-110)
[2024-05-20 19:59] LABS: Glucose,Whole Blood 400 mg/dL (70-110)
[2024-05-20] MEDS: INSULIN DETEMIR (LEVEMIR) 100 UNIT/ML SYR SQ SCH (20:47)
[2024-05-21 04:50] LABS: Mycoplasma IgG Antibody (EIA) 0.46 INDEX (<=0.90); Mycoplasma IgM Antibody 0.06 INDEX (<=0.90)
[2024-05-21 05:42] LABS: Glucose,Whole Blood 279 mg/dL (70-110)
[2024-05-21 07:22] LABS: Basophils % (A) 0 %; Eosinophils % (A) 0 %; HCT 29.9 % (34.0-46.0); HGB 9.6 gm/dL (11.4-16.0); Hypochromasia Slight; Lymphocytes # (A) 0.4 k/uL (1.0-4.8); Lymphocytes % (A) 5 %; MCH 31.9 pg (25.0-35.0); MCHC 32.2 g/dL (31.0-37.0); MCV 98.9 fL (80.0-100.0); Macrocytosis Slight; Mean Platelet Volume 8.1; Monocytes # (A) 0.2 k/uL (0-1.0); Monocytes % (A) 3 %; Neutrophils # (A) 7.6 k/uL (1.3-7.7); Neutrophils % (A) 92 %; Platelet Count 452 k/uL (150-450); RBC 3.03 m/uL (3.80-5.40); RDW 15.2 % (11.5-15.5); WBC 8.2 k/uL (3.8-10.6)
[2024-05-21 07:36] LABS: African American GFR (CKD) 39 (>60 ml/min/1.73 sqM); Anion Gap 6 mmol/L; Blood Urea Nitrogen 51 mg/dL (7-17); Carbon Dioxide 30 mmol/L (22-30); Chloride 103 mmol/L (98-107); Glucose 267 mg/dL (74-99); Non-African American GFR(CKD) 34 (>60 ml/min/1.73 sqM); Potassium 4.4 mmol/L (3.5-5.1); Sodium 139 mmol/L (137-145)
[2024-05-21] MEDS: VALSARTAN 160 MG TAB PO SCH (08:20)
[2024-05-21 09:13] VITALS: TEMP 97.5
[2024-05-21] MEDS ORDERED: predniSONE 10 MG TAB PO STA (09:14)
--- NOTE | 2024-05-21 10:21 | P.PN ---
Subjective Progress Note Date: 05/21/24 Reason for Consult (text): Dyspnea, troponin indeterminate History of present illness: This is a 74-year-old female patient of Dr. Abdi with past medical history of heart failure with reduced EF of 45% likely ischemic cardiomyopathy, history of coronary artery disease status post CABG, moderate MR, hypertension, diabetes mellitus type 2, obesity, prior CVA after CABG with no residual deficits, COPD, home O2. We have been asked to evaluate the patient for dyspnea and troponin indeterminate. Patient has underlying dementia and is unable to provide accurate information. She presented to the emergency center due to difficulty in breathing. Blood pressure 169/59, heart rate 71, pulse ox 97% on 2 L nasal cannula. Patient has been started on antibiotics and nebulizer treatments. EKG: Sinus bradycardia with left bundle branch block first-degree block Chest x-ray: Cardiomegaly with mild bibasilar infiltrates. Consider resolving pulmonary edema. Atelectasis could be considered. Interval development of small right pleural effusion. Laboratory studies: WBC 7.4, hemoglobin 10, platelet count 564. Sodium 139, potassium 5.6, BUN 29 and creatinine 1.08. A1c 8.2. Troponins 0.062, 0.069, 0.05. proBNP 1480. Influenza A, influenza B, RSV, COVID-19 and Legionella not detected. Home cardiac medications: Aspirin 81 mg daily, atorvastatin 80 mg at bedtime, Plavix 75 mg daily, Toprol-XL 50 mg daily, valsartan 80 mg daily. According to office records, patient is also on Farxiga 10 mg daily, Aldactone 12.5 mg daily, Bumex 1 mg daily 05/20 Patient is seen today in follow-up of the cardiac stepdown unit. She states her breathing is little bit better. She states she did not sleep well last night. She continues to have a little bit of a cough. Lower extremity edema is improved. Blood pressure 180/74, heart rate 59, pulse ox 96% on 2 L nasal cannula. Yesterday, pulmonary medicine started patient on IV Lasix 20 mg every 12 hours. Chest x-ray performed 05/20 reveals correlate for mild venous congestion with small right pleural effusion and basilar infiltrate. CTA of the chest reveals no evidence of pulmonary embolus, moderate right pleural effusion and small left pleural effusion, right lower lobe pneumonic infiltrate or atelectasis. Mild dilation of the ascending aortic measuring 3.9- 4.0 cm. Echocardiogram reveals EF of 65 to 70% with moderate concentric left ventricular hypertrophy, moderate mitral stenosis. Severe biatrial enlargement. 05/21 Patient states that her breathing is better today and she is ready for discharge home. She has been on IV Lasix 20 mg every 12 hours. Echocardiogram report reviewed with the patient with recommendations to follow-up in the office regarding the moderate mitral stenosis. Yesterday, valsartan was increased and blood pressure readings are improved today. Blood pressure 133/71, heart rate 65, pulse ox 99% on 2 L nasal cannula. WBC 8.2, hemoglobin 9.6, BUN 51 creatinine 1.5. Physical examination: Gen: This is a 74-year-old female resting in bed and appears to be in no acute distress. VS: reviewed HEENT: Head is atraumatic, normocephalic. Pupils equal, round. Sclerae is anicteric. NECK: Supple. No JVD. LUNGS: Clear to auscultation. No wheezes or rhonchi. No intercostal retractions. HEART: Regular rate and rhythm. Systolic murmur. ABDOMEN: Soft No tenderness. EXTREMITIES: No pedal edema. No calf tenderness. NEUROLOGICAL: Patient is awake, alert and confused. Assessment: Flat troponin not indicative of acute coronary syndrome Chronic heart failure with reduced EF Possible ischemic cardiomyopathy History of coronary artery disease with previous CABG Moderate MR Hypertension Diabetes mellitus type 2 Obesity CVA COPD Chronic hypoxic respiratory failure on Home O2 Plan: Continue patient's home cardiac medications Continue Farxiga 10 mg daily Discontinue IV Lasix, no need for Lasix at home Continue the increased dose of valsartan 160 mg daily Patient is cleared for discharge from cardiology May follow-up with Dr. Abdi in 1 week. Repeat BMP in 1 week Nurse practitioner note has been reviewed, I agree with documented findings and plan of care. Patient was seen and examined. Objective - Vital Signs Vital signs: Vital Signs Temp 97.9 F 05/21/24 04:00 Pulse 68 05/21/24 08:07 Resp 18 05/21/24 04:00 BP 139/57 05/21/24 04:00 Pulse Ox 97 05/21/24 04:00 FiO2 Intake & Output 09/24/24 09/25/24 09/25/24 18:59 06:59 18:59 Intake Total 550 Output Total 1300 950 Balance -1300 -400 Weight 81.9 kg Intake: IV 10 0.9 10 Oral 540 Output: Urine 1300 950 Other: Voiding Method External Catheter External Catheter # Voids 1 # Bowel Movements 1 1 - Labs CBC & Chem 7: 05/21/24 06:22 05/21/24 06:22 Labs: Abnormal Lab Results - Last 24 Hours (Table) 05/20/24 05/20/24 05/20/24 Range/Units 11:22 16:43 19:58 RBC (3.80-5.40) m/uL Hgb (11.4-16.0) gm/dL Hct (34.0-46.0) % Plt Count (150-450) k/uL Lymphocytes # (1.0-4.8) k/uL BUN (7-17) mg/dL Creatinine (0.52-1.04) mg/dL Glucose (74-99) mg/dL POC Glucose (mg/dL) 300 H 227 H 400 H (70-110) mg/dL 05/21/24 05/21/24 05/21/24 Range/Units 05:41 06:22 06:22 RBC 3.03 L (3.80-5.40) m/uL Hgb 9.6 L (11.4-16.0) gm/dL Hct 29.9 L (34.0-46.0) % Plt Count 452 H (150-450) k/uL Lymphocytes # 0.4 L (1.0-4.8) k/uL BUN 51 H (7-17) mg/dL Creatinine 1.50 H (0.52-1.04) mg/dL Glucose 267 H (74-99) mg/dL POC Glucose (mg/dL) 279 H (70-110) mg/dL Microbiology - Last 24 Hours (Table) 05/18/24 16:15 Blood Culture - Preliminary Blood
[2024-05-21 11:21] LABS: Glucose,Whole Blood 284 mg/dL (70-110)
[2024-05-21 11:48] VITALS: BP 139/68; PULSE 61; RESP 16
--- NOTE | 2024-05-21 13:22 | P.PN ---
Subjective Progress Note Date: 05/21/24 On 05/19/2024, the patient is being seen in consultation as the patient presented to the emergency department with some symptoms of increased shortness of breath. The patient apparently had a fall when she was feeling quite weak. She has known history of congestion heart failure, ischemic cardiomyopathy with an ejection fraction of 45%. The patient is also known to have coronary artery disease, previous bypass surgery along with moderate mitral regurgitation, hypertension, diabetes mellitus type 2 and previous history of CVA that occurred following a bypass surgery without any residual deficits. She is obese and she is also known to have COPD, O2 dependent. During this current admission, the patient's chest x-ray is consistent with CHF with increased pulm vascular markings bilaterally. The viral screen has been negative. proBNP level was 1480. Creatinine is at 1.08 with a BUN of 29 and sodium levels at 139. CBC is within normal limits. The patient has a D-dimer of 1.18. The CTA of the chest was completed and the patient was found to have no evidence of any pulmonary embolism. There is moderate-sized right-sided pleural effusion and small left- sided pleural effusion and some compressive atelectatic changes in the right lung base along with mild dilatation of the ascending aorta measuring 3.9 to 4 cm in size. The patient is currently on 2 L of oxygen by nasal cannula with pulse ox of 96%. She is free of any chest pain. She has some increased edema lower extremities bilaterally. 05/20/2024, the patient is being seen for a follow-up. On today's evaluation, the patient seems to be slightly improved compared to yesterday. The patient is still receiving diuretics and the patient is -3.1 liters over the past 24 hours. The patient is on IV Lasix for now 20 mg every 12 hours. Noted the patient's troponins were elevated and the troponin was at 0.06, 0.06 and 0.05. The patient was seen by cardiology and the patient is going to undergo a cardiac catheterization today. She remains on metoprolol 50 mg twice a day. She is also on high-dose statins 80 mg p.o. daily. She is on aspirin. She is on DuoNeb nebulized treatments and empiric antibiotic coverage with IV Rocephin and Zithromax. She is also on valsartan 160 mg p.o. daily for blood pressure control. She is currently on oxygen 2 L/min nasal cannula. 05/21/2024, patient is being seen for a follow-up. Doing well. No significant complaints. No chest pain. Shortness of breath is improved considerably. The patient was diuresed with IV Lasix. No cough. No sputum production. No chest tightness. No wheezing. The white cell count of 8.2 with a hemoglobin 9.6. BUN is 51 with a creatinine of 1.5 and a sodium levels at 139. Based on that, the patient was taken off the IV Lasix as the patient has developed a component of an acute kidney injury/prerenal azotemia. Nevertheless, she is doing well. She remains on 2 L of oxygen by nasal cannula. Pulse ox in the order of 98%. This patient has been in a significant negative balance over the past 24 hours and the patient's fluid balance is -1.7 L. Objective - Vital Signs Vital signs: Vital Signs Temp 97.9 F 05/21/24 04:00 Pulse 68 05/21/24 08:07 Resp 18 05/21/24 04:00 BP 139/57 05/21/24 04:00 Pulse Ox 97 05/21/24 04:00 FiO2 Intake & Output 05/20/24 05/21/24 05/21/24 18:59 06:59 18:59 Intake Total 550 Output Total 1300 950 Balance -1300 -400 Weight 81.9 kg Intake: IV 10 0.9 10 Oral 540 Output: Urine 1300 950 Other: Voiding Method External Catheter External Catheter # Voids 1 # Bowel Movements 1 1 - Exam GENERAL EXAM: Alert, 73-year-old female, on 2 L of oxygen via nasal cannula, comfortable in no apparent distress. HEAD: Normocephalic. EYES: Normal reaction of pupils, equal size. NOSE: Clear with pink turbinates. THROAT: No erythema or exudates. NECK: No masses, no JVD. CHEST: No chest wall deformity. LUNGS: Equal air entry with scattered rhonchi, crackles in the posterior bases . CVS: S1 and S2 normal with an audible murmur, regular rhythm. ABDOMEN: No hepatosplenomegaly, normal bowel sounds, no guarding or rigidity. SPINE: No scoliosis or deformity SKIN: No rashes CENTRAL NERVOUS SYSTEM: No focal deficits, tone is normal in all 4 extremities. EXTREMITIES: There is peripheral edema. No clubbing, no cyanosis. Peripheral pulses are intact. - Labs CBC & Chem 7: 05/21/24 06:22 05/21/24 06:22 Labs: Abnormal Lab Results - Last 24 Hours (Table) 05/20/24 05/20/24 05/20/24 Range/Units 11:22 16:43 19:58 RBC (3.80-5.40) m/uL Hgb (11.4-16.0) gm/dL Hct (34.0-46.0) % Plt Count (150-450) k/uL Lymphocytes # (1.0-4.8) k/uL BUN (7-17) mg/dL Creatinine (0.52-1.04) mg/dL Glucose (74-99) mg/dL POC Glucose (mg/dL) 300 H 227 H 400 H (70-110) mg/dL 05/21/24 05/21/24 05/21/24 Range/Units 05:41 06:22 06:22 RBC 3.03 L (3.80-5.40) m/uL Hgb 9.6 L (11.4-16.0) gm/dL Hct 29.9 L (34.0-46.0) % Plt Count 452 H (150-450) k/uL Lymphocytes # 0.4 L (1.0-4.8) k/uL BUN 51 H (7-17) mg/dL Creatinine 1.50 H (0.52-1.04) mg/dL Glucose 267 H (74-99) mg/dL POC Glucose (mg/dL) 279 H (70-110) mg/dL Microbiology - Last 24 Hours (Table) 05/18/24 16:15 Blood Culture - Preliminary Blood Assessment and Plan Plan: Acute hypoxemic respiratory failure secondary to a combination of diastolic congestive heart failure and development of bilateral pleural effusions right more than left and secondary shortness of breath. The patient is currently on 2 L of O2 nasal cannula Troponin leak, versus NSTEMI and the patient is going to undergo a cardiac catheterization today Severe oxygen dependent COPD with an FEV1 value of 54% of predicted LEO, severe with an AHI of 68 and the patient has been maintained on VPAP auto, not much compliant to her BiPAP therapy on outpatient basis History of previous COVID-19 infection Hyperlipidemia Hypertension Diabetes mellitus, type II Coronary artery disease with previous coronary bypass grafting and previous stenting Previous history of ESBL producing UTI urinary tract infection Obesity History of CVA/TIA Recent hospitalization for a left facial cellulitis acute kidney injury, related to diuretics. Currently off Lasix. Plan: Stable on 2 L of O2 nasal cannula Discontinued IV Lasix and monitor renal function Discontinue IV Solu-Medrol Discontinue antibiotics Monitor renal function We will continue to follow
--- NOTE | 2024-05-22 14:48 | PN ---
PROGRESS NOTE DATE OF SERVICE: 05/20/2024 SUBJECTIVE: This is a 74-year-old woman admitted with shortness of breath, also had right lower lobe pneumonia and the patient underwent a 2D echo with Doppler and ejection fraction found to be 65% to 70% with moderate mitral stenosis. There is no history of any fever, rigors, or chills. Multiple consultants are following the patient closely. PAST MEDICAL HISTORY: Reviewed. REVIEW OF SYSTEMS: A 14-point review is negative except as mentioned earlier. CURRENT MEDICATIONS: Reviewed include Lasix 20 mg daily. OBJECTIVE: VITAL SIGNS: Pulse is 68, blood pressure 151/59, respirations 17. HEENT: Conjunctivae normal. NECK: No JVD. CARDIOVASCULAR: S1, S2. RESPIRATIONS: Breath sounds diminished at the bases. A few scattered rhonchi and crackles. ABDOMEN: Soft. NERVOUS SYSTEM: Nonfocal. LABORATORY DATA: Accu-Cheks 300. Rest of the labs are noted. D-dimer is 1.18. A chest CTA showed no evidence of pulmonary embolism, right pleural effusion, and multiple abnormalities. ASSESSMENT: 1. Shortness of breath, possibly combination of congestive heart failure acute exacerbation as well as chronic obstructive pulmonary disease acute exacerbation. 2. Congestive heart failure acute exacerbation, acute on chronic diastolic dysfunction. 3. Moderate mitral stenosis. 4. Right lower lobe pneumonia, possibly gram-negative. 5. Troponin 0.068. Possible acute [id number] elevation myocardial infarction. 6. Dementia. 7. Diabetes mellitus, type 2. 8. Multiple complex medical issues. RECOMMENDATIONS AND DISCUSSION: This is a 74-year-old woman who presented with multiple complex medical issues, we will monitor the patient closely. Continue the current management and continue symptomatic treatment. Otherwise monitor labs closely. Monitor blood sugar closely. The patient will cut down the IV steroids at this time. Closely follow with multiple consultants. Guarded prognosis. Further recommendations to follow. See orders for further details. MMODL / IJN: [id number] /
--- NOTE | 2024-05-23 13:35 | P.DS ---
Providers Date of admission: 05/19/24 12:26 Expected date of discharge: 05/21/24 Attending physician: Irwin Arredondo Consults: 05/18/24 14:47 Consult Physician Routine Consulting Provider: Johnathon Maciel Consult Reason/Comments: dyspnea Do you want consulting provider notified?: Yes Consult Physician Routine Consulting Provider: Be Cruz Consult Reason/Comments: dyspnea, trop indeterminate Do you want consulting provider notified?: Yes Primary care physician: Elvira Gonzales Hospital Course: Final diagnosis Shortness of breath, multifactorial secondary to CHF exacerbation as well as chronic obstructive pulmonary disease exacerbation Acute on chronic diastolic dysfunction congestive heart failure Moderate mitral stenosis Right lower lobe pneumonia, gram-negative Troponin 0.068, likely type II due to CHF as well as COPD exacerbation History of dementia Diabetes mellitus, type II, uncontrolled with hyper and hypoglycemia Obesity with a BMI 32.0 GI prophylaxis DVT prophylaxis Full code Discharge disposition Patient is being discharged in a stable condition with guarded prognosis to home. Patient will follow-up with Dr. Gonzales in the outpatient setting upon discharge. Patient is to continue with current medications as prescribed by cardiology and pulmonary and outpatient follow-up with them as scheduled. Total time taken is greater than 35 minutes. Hospital course This is a 74-year-old female who was recently admitted with increasing shortness of breath with acute COPD and CHF exacerbation. Patient being monitored by cardiology and pulmonary maintained on IV steroids along with DuoNebs and IV Lasix. Lasix has been discontinued per cardiology and medications have been adjusted and patient is significantly improved. Patient is insistent on going home today and reports she feels better. Patient has been cleared by consultations for outpatient follow-up. Please refer to other consultation notes for further HPI. Currently no reports of chest pain, shortness of breath, or palpitations. Patient is afebrile. No reports of nausea or vomiting and patient is tolerating diet. Patient will be discharged home today. High risk for readmissions given significant comorbidities and noncompliance to follow-up and medication use. Physical exam: Gen: This is a 74-year-old female who is awake, alert and oriented x 3, well- developed, elderly appearing, obese HEENT: Head is atraumatic, normocephalic. Pupils equal, round. Sclerae is anicteric. NECK: Supple. No JVD. No lymphadenopathy. No thyromegaly. LUNGS: Diminished breath sounds bilaterally with coarse scattered rhonchi. No intercostal retractions. HEART: S1, S2 are muffled ABDOMEN: Soft. obese, Bowel sounds are present. No masses. No tenderness. EXTREMITIES: No pedal edema. No calf tenderness. NEUROLOGICAL: Patient is awake, alert and oriented x3. Cranial nerves 2 through 12 are grossly intact. Please refer to medication reconciliation sheet for a list of medications. The impression and plan of care has been dictated by Judith Brown, Nurse Practitioner as directed. Dr. aime MD I have performed a history and examination and MDM of this patient, discussed the same with the dictator, and agree with the dictator's assessment and plan as written ,documented as a scribe. Based on total visit time, I have performed more than 50% of the visit. Patient Condition at Discharge: Fair Plan - Discharge Summary New Discharge Prescriptions: New Valsartan [Diovan] 160 mg PO DAILY 30 Days #30 tab Ipratropium-Albuterol Nebulize [Duoneb 0.5 mg-3 mg/3 ml Soln] 3 ml INHALATION RT-QID each Dapagliflozin Propanediol [Farxiga] 10 mg PO DAILY #30 tab predniSONE See Taper PO DIRECTED #30 tab Continue Atorvastatin [Lipitor] 80 mg PO HS Clopidogrel Bisulfate [Plavix] 75 mg PO DAILY Aspirin EC [Ecotrin Low Dose] 81 mg PO DAILY traMADol HCL 50 mg PO BID Metoprolol Succinate [Toprol XL] 50 mg PO DAILY Insulin Glargine,Hum.rec.anlog [Lantus Solostar Pen] 80 units SQ HS Albuterol Sulfate [Ventolin HFA] 2 puff INHALATION RT-QID PRN PRN Reason: Shortness Of Breath Ipratropium-Albuterol Nebulize [Duoneb 0.5 mg-3 mg/3 ml Soln] 3 ml INHALATION RT-QID PRN PRN Reason: Shortness Of Breath Insulin Lispro [humaLOG Kwikpen] 15 units SQ AC-TID #0 Omeprazole [PriLOSEC] 20 mg PO BID Budesonide-Formot 160-4.5 Mcg [Symbicort 160-4.5 Mcg Inhaler] 2 puff INHALATION RT-BID 30 Days #1 each Cholecalciferol [Vitamin D3 (125 Mcg = 5000 Iu)] 125 mcg PO DAILY Discontinued Valsartan [Diovan] 80 mg PO DAILY predniSONE [Deltasone] See Taper PO DIRECTED Discharge Medication List Atorvastatin [Lipitor] 80 mg PO HS 09/23/20 [History] Aspirin EC [Ecotrin Low Dose] 81 mg PO DAILY 12/12/21 [History] Clopidogrel Bisulfate [Plavix] 75 mg PO DAILY 12/12/21 [History] Insulin Lispro [humaLOG Kwikpen] 15 units SQ AC-TID #0 06/19/22 [Rx] traMADol HCL 50 mg PO BID 02/21/23 [History] Metoprolol Succinate [Toprol XL] 50 mg PO DAILY 11/02/23 [History] Omeprazole [PriLOSEC] 20 mg PO BID 11/02/23 [History] Budesonide-Formot 160-4.5 Mcg [Symbicort 160-4.5 Mcg Inhaler] 2 puff INHALATION RT-BID 30 Days #1 each 11/05/23 [Rx] Cholecalciferol [Vitamin D3 (125 Mcg = 5000 Iu)] 125 mcg PO DAILY 05/01/24 [History] Insulin Glargine,Hum.rec.anlog [Lantus Solostar Pen] 80 units SQ HS 05/01/24 [History] Albuterol Sulfate [Ventolin HFA] 2 puff INHALATION RT-QID PRN 05/18/24 [History] Ipratropium-Albuterol Nebulize [Duoneb 0.5 mg-3 mg/3 ml Soln] 3 ml INHALATION RT-QID PRN 05/18/24 [History] Dapagliflozin Propanediol [Farxiga] 10 mg PO DAILY #30 tab 05/21/24 [Rx] Ipratropium-Albuterol Nebulize [Duoneb 0.5 mg-3 mg/3 ml Soln] 3 ml INHALATION RT-QID each 05/21/24 [Rx] Valsartan [Diovan] 160 mg PO DAILY 30 Days #30 tab 05/21/24 [Rx] predniSONE See Taper PO DIRECTED #30 tab 05/21/24 [Rx] Follow up Appointment(s)/Referral(s): Jamir Abdi MD [Medical Doctor] - 1 Week Elvira Gonzales MD [Primary Care Provider] - 1-2 days [facility], [NON-STAFF] - Haven Monique MD [STAFF PHYSICIAN] - 1 Week Ambulatory/Diagnostic Orders: Basic Metabolic Panel [LAB.AMB] Location: None Selected Activity/Diet/Wound Care/Special Instructions: Activity Follow-up with primary care provider on discharge Follow-up with cardiology regarding the etienne of Farxiga and other alternatives Continue taking medications as prescribed Continue with inhalers as well as prednisone taper Follow-up with pulmonary outpatient Repeat labs in 2 to 3 days to monitor kidney functions Discharge Disposition: HOME WITH HOME HEALTH SERVICES
== END 2024-05-21 14:13 | disposition home health service (06) | DRG 202 ==
LOC: EC 11:19 → 3SCARD 14:49 → OBSVTOIN 05-19 12:26 → 3SCARD 05-19 16:05
PROVIDERS: ADMIT Hospitalist; ATTEND Hospitalist
DX: J45.901 Unspecified asthma with (acute) exacerbation (principal); I21.A1 Myocardial infarction type 2; I50.33 Acute on chronic diastolic (congestive) heart failure; J15.69 Pneumonia due to other Gram-negative bacteria; J96.11 Chronic respiratory failure with hypoxia; J44.0 Chronic obstructive pulmonary disease with (acute) lower respiratory infection; N17.9 Acute kidney failure, unspecified; J44.1 Chronic obstructive pulmonary disease with (acute) exacerbation; I11.0 Hypertensive heart disease with heart failure; I25.10 Atherosclerotic heart disease of native coronary artery without angina pectoris; Z99.81 Dependence on supplemental oxygen; E11.9 Type 2 diabetes mellitus without complications; E66.9 Obesity, unspecified; I25.5 Ischemic cardiomyopathy; E78.5 Hyperlipidemia, unspecified; Z95.1 Presence of aortocoronary bypass graft; E11.65 Type 2 diabetes mellitus with hyperglycemia; F03.90 Unspecified dementia, unspecified severity, without behavioral disturbance, psychotic disturbance, mood disturbance, and anxiety; F40.240 Claustrophobia; I25.2 Old myocardial infarction; I44.7 Left bundle-branch block, unspecified; I77.810 Thoracic aortic ectasia; W19.XXXA Unspecified fall, initial encounter; Z68.32 Body mass index [BMI] 32.0-32.9, adult; Z79.02 Long term (current) use of antithrombotics/antiplatelets; Z79.4 Long term (current) use of insulin; Z79.51 Long term (current) use of inhaled steroids; Z79.52 Long term (current) use of systemic steroids; Z79.82 Long term (current) use of aspirin; Z79.899 Other long term (current) drug therapy; Z86.73 Personal history of transient ischemic attack (TIA), and cerebral infarction without residual deficits; Z87.891 Personal history of nicotine dependence; Z82.49 Family history of ischemic heart disease and other diseases of the circulatory system
CPT/HCPCS: 36415; 71045; 71046; 71275; 80048; 80053; 83036; 83605; 83735; 83880; 84145; 84484; 85025; 85379; 85610; 85730; 86738; 87040; 87449; 87636; 93005; 93306; 94640; 96361; 96365; 96366; 96375; 96376; 99285

== ENCOUNTER → 2024-06-19 | Outpatient (CLI) | payer MEDICARE ==
--- NOTE | 2024-06-19 18:42 | MR ---
EXAMINATION TYPE: MR lumbar spine wo con DATE OF EXAM: 06/19/2024 6:26 PM CLINICAL INDICATION: Female, 74 years old with history of M48.062 M47.817 M51.36, Back pain COMPARISON: None TECHNIQUE: Multi planar, multi sequence imaging was performed utilizing: T1-weighted, T2-weighted, a nd turbo inversion recovery imaging of the lumbar spine. IV Contrast: cc . (None if empty) FINDINGS: Alignment: The lumbar vertebral bodies have preserved heights with grade 1 anterolisthesis of L4 on L 5. Cord: The conus medullaris and the distal spinal cord appear unremarkable with regards to their signa l intensity and morphology. Bones/Discs: Moderate degeneration changes most pronounced at L3-L4 and L4-L5 with disc space narrowi ng, Schmorl's nodes, endplate Modic endplate changes and osteophytes present. Endplate reactive edema also present at these levels. No evidence of fracture. Multilevel facet joint arthropathy present. T12-L1: No evidence of significant spinal canal stenosis or neural foraminal stenosis. L1-L2: No evidence of significant spinal canal stenosis or neural foraminal stenosis. L2-L3: Disc bulge and facet joint arthropathy result in mild spinal canal and mild bilateral neural f oraminal stenosis. L3-L4: Disc bulge and facet joint arthropathy result in mild spinal canal and severe left and mild ri ght bilateral neural foraminal stenosis. L4-L5: Disc uncovering from grade 1 anterolisthesis and facet joint arthropathy with moderate to liane re spinal canal stenosis. Additionally there is right foraminal extrusion which severely narrows the neural foramen series 01 image 13. Spinal canal stenosis and mild bilateral neural foraminal stenosis . L5-S1: The disc has a rounded posterior morphology without significant spinal canal stenosis. Facet j oint arthropathy with mild bilateral neural foraminal stenosis. No significant spinal canal or neural foraminal stenosis in the remainder of the visualized levels. Other findings: None. IMPRESSION: 1. L4-L5 grade I anterolisthesis with moderate to severe spinal canal stenosis and 2. L4-L5 right foraminal disc extrusion which displaces the exiting right nerve. 3. L3-L4 severe left neural foraminal stenosis. 4. No evidence of significant spinal canal stenosis. 5. Multilevel disc degeneration with associated osteoarthritic changes. [facility], , 06/19/2024 6:39 PM
== END | disposition home or self-care (01) ==
LOC: RADMRIMAIN 17:44
PROVIDERS: ATTEND Physical Medicine & Rehabilitation
CPT/HCPCS: 72148

== ENCOUNTER 2024-12-20 20:16 | Inpatient (IN) | payer MEDICARE ==
--- NOTE | 2024-12-20 20:31 | ED ---
SOB HPI - General Chief Complaint: Shortness of Breath Stated Complaint: DONALD Time Seen by Provider: 12/20/24 20:29 Source: patient, RN notes reviewed, old records reviewed Mode of arrival: EMS Limitations: no limitations - History of Present Illness Initial Comments: This is a 74-year-old female to ER for evaluation of severe shortness of breath recent pneumonia or bronchitis diagnosis pending steroid treatment patient has severely elevated blood sugar at home severe shortness of breath feels like she cannot catch her breath, denying any current chest pain no current fevers. Patient did have a fever during recent treatment patient is a mildly poor historian MD Complaint: shortness of breath, cough, "asthma attack" -: days(s) Severity: severe Severity scale (1-10): 10 Consistency: constant Improves With: nothing Worsens With: exertion, movement Known History Of: COPD, asthma, congestive heart failure, diabetes Context: recent URI, anxiety, recent illness Associated Symptoms: denies other symptoms - Related Data Home Medications Medication Instructions Recorded Confirmed Atorvastatin [Lipitor] 80 mg PO HS 09/23/20 12/21/24 Aspirin EC [Ecotrin Low Dose] 81 mg PO DAILY 12/12/21 12/21/24 Clopidogrel Bisulfate [Plavix] 75 mg PO DAILY 12/12/21 12/21/24 traMADol HCL 50 mg PO BID 02/21/23 12/21/24 Metoprolol Succinate [Toprol XL] 50 mg PO DAILY 11/02/23 12/21/24 Omeprazole [PriLOSEC] 20 mg PO AC-BID 11/02/23 12/21/24 Insulin Glargine,Hum.rec.anlog 80 units SQ HS 05/01/24 12/21/24 [Lantus Solostar Pen] Albuterol Nebulized [Ventolin 2.5 mg INHALATION RT-TID 12/21/24 12/21/24 Nebulized] Furosemide [Lasix] 20 mg PO DAILY 12/21/24 12/21/24 Insulin Lispro [humaLOG Kwikpen] 20 units SQ AC-TID 12/21/24 12/21/24 Spironolactone [Aldactone] 25 mg PO DAILY 12/21/24 12/21/24 predniSONE [Deltasone] See Taper PO DAILY 12/21/24 12/21/24 Previous Rx's Medication Instructions Recorded Budesonide-Formot 160-4.5 Mcg 2 puff INHALATION RT-BID 30 Days 11/05/23 [Symbicort 160-4.5 Mcg Inhaler] #1 each Dapagliflozin Propanediol [Farxiga] 10 mg PO DAILY #30 tab 05/21/24 Valsartan [Diovan] 160 mg PO DAILY 30 Days #30 tab 05/21/24 Allergies Allergy/AdvReac Type Severity Reaction Status Date / Time codeine AdvReac Nausea & Verified 12/21/24 11:26 Vomiting Review of Systems ROS Statement: Those systems with pertinent positive or pertinent negative responses have been documented in the HPI. ROS Other: All systems not noted in ROS Statement are negative. 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, R caratid artery disease, valvular disease, pulmonary htn, bronchitis, home oxygen prn, poor vision/pt cannot recall reason, UTIs, rash/itching, WAS SEEN IN ER 12/2022 FOR N/V Last Myocardial Infarction Date:: 2014 History of Any Multi-Drug Resistant Organisms: ESBL Date of last positivie culture/infection: 04/15/21 MDRO Source:: ESBL URINE Past Surgical History: Cholecystectomy, Coronary Bypass/CABG, Heart Catheterization With Stent Additional Past Surgical History / Comment(s): PCI/stents in 2009 and 2014, 2016 CABG 3 vessel then sternal debridement for infection/removal of hardware, colonoscopy, bilateral cataract removals. Past Anesthesia/Blood Transfusion Reactions: No Reported Reaction Additional Past Anesthesia/Blood Transfusion Reaction / Comment(s): Claustrophobic Date of Last Stent Placement:: 2014 Past Psychological History: No Psychological Hx Reported Smoking Status: Former smoker Past Alcohol Use History: None Reported Past Drug Use History: None Reported - Past Family History Father Family Medical History: Coronary Artery Disease (CAD), Myocardial Infarction ([place]) Additional Family Medical History / Comment(s): STENT, OPEN HEART SURGERY Mother History Unknown: Yes Additional Family Medical History / Comment(s): DEPRESSION, mental illness General Exam General appearance: alert, anxious, in distress Head exam: Present: atraumatic, normocephalic, normal inspection Eye exam: Present: normal appearance, PERRL, EOMI. Absent: scleral icterus, conjunctival injection, periorbital swelling ENT exam: Present: normal exam, mucous membranes moist Neck exam: Present: normal inspection. Absent: tenderness, meningismus, lymph adenopathy Respiratory exam: Present: respiratory distress, wheezes, accessory muscle use, decreased breath sounds, prolonged expiratory, other. Absent: rales, rhonchi, stridor Cardiovascular Exam: Present: regular rate, normal rhythm, normal heart sounds. Absent: systolic murmur, diastolic murmur, rubs, gallop, clicks GI/Abdominal exam: Present: soft, normal bowel sounds. Absent: distended, tenderness, guarding, rebound, rigid Extremities exam: Present: normal inspection, full ROM, normal capillary refill. Absent: tenderness, pedal edema, joint swelling, calf tenderness Back exam: Present: normal inspection Neurological exam: Present: alert, oriented X3, CN II-XII intact Psychiatric exam: Present: normal affect, normal mood Skin exam: Present: warm, dry, intact, normal color. Absent: rash Course Vital Signs 12/20/24 12/20/24 12/20/24 20:21 20:41 20:46 Temperature 98.4 F Pulse Rate 80 76 Respiratory 26 H 26 H 22 Rate Blood Pressure 142/45 O2 Sat by Pulse 100 Oximetry 12/20/24 12/20/24 12/20/24 20:47 20:58 22:06 Temperature Pulse Rate 73 79 81 Respiratory 24 20 22 Rate Blood Pressure 144/47 113/91 O2 Sat by Pulse 100 98 Oximetry 12/20/24 12/20/24 12/20/24 23:00 23:29 23:35 Temperature Pulse Rate 76 79 75 Respiratory 18 18 18 Rate Blood Pressure 141/58 O2 Sat by Pulse 99 Oximetry 12/21/24 12/21/24 12/21/24 00:00 02:00 04:06 Temperature Pulse Rate 79 70 66 Respiratory 20 18 20 Rate Blood Pressure 139/53 155/58 O2 Sat by Pulse 99 99 Oximetry 12/21/24 12/21/24 12/21/24 04:12 06:30 07:38 Temperature Pulse Rate 66 69 63 Respiratory 20 20 Rate Blood Pressure 145/55 O2 Sat by Pulse 100 99 Oximetry 12/21/24 12/21/24 12/21/24 07:52 08:15 10:51 Temperature Pulse Rate 62 65 65 Respiratory 18 16 Rate Blood Pressure 134/59 133/45 O2 Sat by Pulse 96 96 Oximetry 12/21/24 12/21/24 12/21/24 11:15 11:26 13:50 Temperature 98.3 F Pulse Rate 70 66 75 Respiratory 18 Rate Blood Pressure 117/55 O2 Sat by Pulse 97 Oximetry - Reevaluation(s) Reevaluation #1: 12/20/24 20:30 Medical records reviewed Reevaluation #2: 12/20/24 22:43 Patient blood sugars difficult to improve here in the ER Work of breathing is improving here in the ER wheezing helped with breathing treatments Reevaluation #3: 12/20/24 22:44 Patient informed of results questions answered Reevaluation #4: Was pt. sent in by a medical professional or institution (, PA, PERMAST[employer] MECHANIC, urgent care, hospital, or fci...) When possible be specific @ -no Did you speak to anyone other than the patient for history (EMS, parent, family, police, friend...)? What history was obtained from this source @ -no Did you review nursing and triage notes (agree or disagree)? Why? @ -agree Are old charts reviewed (outside hosp., previous admission, EMS record, old EKG, old radiological studies, urgent care reports/EKG's, fci records)? Report findings @ -yes Differential Diagnosis (chest pain, altered mental status, abdominal pain women, abdominal pain men, vaginal bleeding, weakness, fever, dyspnea, syncope, head ache, dizziness, GI bleed, back pain, seizure, CVA, palpatations, mental health, musculoskeletal)? @ -prior EKG interpreted by me (3pts min.). @ -yes X-rays interpreted by me (1pt min.). @ -yes positive for CHF CT interpreted by me (1pt min.). @ -no U/S interpreted by me (1pt. min.). @ -no What testing was considered but not performed or refused? (CT, X-rays, U/S, labs)? Why? @ -none What meds were considered but not given or refused? Why? @ -none Did you discuss the management of the patient with other professionals (professionals i.e. Dr., PA, PER[employer]ST[employer] MECHANIC, lab, RT, psych nurse, family welfare social work professor, plasterer foreman, teacher, collection officer, case liner)? Give summary @ -no Was smoking cessation discussed for >3mins.? @ -no Was critical care preformed (if so, how long)? @ -yes31 Were there social determinants of health that impacted care today? How? (Homelessness, low income, unemployed, alcoholism, drug addiction, transportation, low edu. Level, literacy, decrease access to med. care, alf, rehab)? @ -none Was there de-escalation of care discussed even if they declined (Discuss DNR or withdrawal of care, Hospice)? DNR status @ -no What co-morbidities impacted this encounter? (DM, HTN, Smoking, COPD, CAD, Cancer, CVA, ARF, Chemo, Hep., AIDS, mental health diagnosis, sleep apnea, morbid obesity)? @ -none Was patient admitted / discharged? Hospital course, mention meds given and route, prescriptions, significant lab abnormalities, going to OR and other pertinent info. @ - 74 female with severe shortness of breath COPD complicated with CHF complicated with elevated blood sugar secondary likely to steroid use not taking insulin, patient's blood sugars are elevated no DKA. Patient will admit for blood sugar control and respiratory support Admitted Undiagnosed new problem with uncertain prognosis? @ -no Drug Therapy requiring intensive monitoring for toxicity (Heparin, Nitro, Ins ulin, Cardizem)? @ -no Were any procedures done? @ -no Diagnosis/symptom? @ -Dyspnea COPD and CHF Acute, or Chronic, or Acute on Chronic? @ -Acute Uncomplicated (without systemic symptoms) or Complicated (systemic symptoms)? @ -Complicated Side effects of treatment? @ -no Exacerbation, Progression, or Severe Exacerbation? @ -exacerbation Poses a threat to life or bodily function? How? (Chest pain, [place], [place], pneumonia, PE, COPD, DKA, ARF, appy, cholecystitis, CVA, Diverticulitis, Homicidal, Suicidal, threat to staff... and all critical care pts) @ -yes extremes of a Reevaluation #5: Differential Dyspnea: Coronary syndrome, arrhythmia, tamponade, asthma, COPD, pulmonary embolism, pneumonia, pneumothorax, pulmonary effusion, anaphylaxis, diabetic ketoacidosis, flailed chest, pulmonary contusion, diaphragmatic rupture, anemia, neuromuscular, this is not meant to be an all-inclusive list. - Consultations Consultation #1: Spoke with [facility] who agrees to admit this patient Medical Decision Making - Medical Decision Making 74 female with severe shortness of breath COPD complicated with CHF complicated with elevated blood sugar secondary likely to steroid use not taking insulin, patient's blood sugars are elevated no DKA. Patient will admit for blood sugar control and respiratory support - Lab Data Result diagrams: 12/24/24 05:10 12/24/24 05:10 Lab Results 12/20/24 12/20/24 12/20/24 Range/Units 20:34 20:34 20:34 WBC 11.24 H (4.50-10.00) 10*3/uL RBC 2.93 L (4.10-5.20) 10*6/uL Hgb 9.6 L (12.0-15.0) g/dL Hct 30.0 L (37.2-46.3) % MCV 102.4 H (80.0-97.0) fL MCH 32.8 H (27.0-32.0) pg MCHC 32.0 (32.0-37.0) g/dL Plt Count 283 (140-440) 10*3/uL MPV 9.2 L (9.5-12.2) fL Immature Gran % (Auto) 1.0 % Neutrophils % 94.3 % Lymphocytes % 2.7 % Monocytes % 2.0 % Eosinophils % 0.0 % Basophils % 0.0 % Immature Gran # 0.11 H (0.00-0.04) 10*3/uL Neutrophils # 10.60 H (1.80-7.70) 10*3/uL Lymphocytes # 0.30 L (0.90-5.00) 10*3/uL Monocytes # 0.23 (0.20-1.00) 10*3/uL Eosinophils # 0.00 L (0.04-0.35) 10*3/uL Basophils # 0.00 (0.00-0.10) 10*3/uL PT 10.0 (10.0-12.5) sec INR 0.9 (<1.2) APTT 18.4 L (22.0-30.0) sec Sodium 132 L (137-145) mmol/L Potassium 5.3 H (3.5-5.1) mmol/L Chloride 100 (98-107) mmol/L Carbon Dioxide 19 L (22-30) mmol/L Anion Gap 13 mmol/L BUN 50 H (7-17) mg/dL Creatinine 1.37 H (0.52-1.04) mg/dL Est GFR (CKD-EPI)AfAm 44 (>60 ml/min/1.73 sqM) Est GFR (CKD-EPI)NonAf 38 (>60 ml/min/1.73 sqM) Glucose 570 H* (74-99) mg/dL POC Glucose (mg/dL) (70-110) mg/dL POC Glu Pot Puncher ID Calcium 9.0 (8.4-10.2) mg/dL Magnesium 2.1 (1.6-2.3) mg/dL Total Bilirubin 1.0 (0.2-1.3) mg/dL AST 23 (14-36) U/L ALT 23 (4-34) U/L Alkaline Phosphatase 73 (38-126) U/L Troponin I (0.000-0.034) ng/mL NT-Pro-B Natriuret Pep 3110 pg/mL Total Protein 6.2 L (6.3-8.2) g/dL Albumin 3.6 (3.5-5.0) g/dL Acetone, Qual (Negative) 12/20/24 12/20/24 12/20/24 Range/Units 20:34 20:34 20:40 WBC (4.50-10.00) 10*3/uL RBC (4.10-5.20) 10*6/uL Hgb (12.0-15.0) g/dL Hct (37.2-46.3) % MCV (80.0-97.0) fL MCH (27.0-32.0) pg MCHC (32.0-37.0) g/dL Plt Count (140-440) 10*3/uL MPV (9.5-12.2) fL Immature Gran % (Auto) % Neutrophils % % Lymphocytes % % Monocytes % % Eosinophils % % Basophils % % Immature Gran # (0.00-0.04) 10*3/uL Neutrophils # (1.80-7.70) 10*3/uL Lymphocytes # (0.90-5.00) 10*3/uL Monocytes # (0.20-1.00) 10*3/uL Eosinophils # (0.04-0.35) 10*3/uL Basophils # (0.00-0.10) 10*3/uL PT (10.0-12.5) sec INR (<1.2) APTT (22.0-30.0) sec Sodium (137-145) mmol/L Potassium (3.5-5.1) mmol/L Chloride (98-107) mmol/L Carbon Dioxide (22-30) mmol/L Anion Gap mmol/L BUN (7-17) mg/dL Creatinine (0.52-1.04) mg/dL Est GFR (CKD-EPI)AfAm (>60 ml/min/1.73 sqM) Est GFR (CKD-EPI)NonAf (>60 ml/min/1.73 sqM) Glucose (74-99) mg/dL POC Glucose (mg/dL) >600 H* (70-110) mg/dL POC Glu Pot Puncher ID Aram Anel Calcium (8.4-10.2) mg/dL Magnesium (1.6-2.3) mg/dL Total Bilirubin (0.2-1.3) mg/dL AST (14-36) U/L ALT (4-34) U/L Alkaline Phosphatase (38-126) U/L Troponin I 0.032 (0.000-0.034) ng/mL NT-Pro-B Natriuret Pep pg/mL Total Protein (6.3-8.2) g/dL Albumin (3.5-5.0) g/dL Acetone, Qual Negative (Negative) 12/20/24 12/20/24 12/20/24 Range/Units 21:42 21:43 22:33 WBC (4.50-10.00) 10*3/uL RBC (4.10-5.20) 10*6/uL Hgb (12.0-15.0) g/dL Hct (37.2-46.3) % MCV (80.0-97.0) fL MCH (27.0-32.0) pg MCHC (32.0-37.0) g/dL Plt Count (140-440) 10*3/uL MPV (9.5-12.2) fL Immature Gran % (Auto) % Neutrophils % % Lymphocytes % % Monocytes % % Eosinophils % % Basophils % % Immature Gran # (0.00-0.04) 10*3/uL Neutrophils # (1.80-7.70) 10*3/uL Lymphocytes # (0.90-5.00) 10*3/uL Monocytes # (0.20-1.00) 10*3/uL Eosinophils # (0.04-0.35) 10*3/uL Basophils # (0.00-0.10) 10*3/uL PT (10.0-12.5) sec INR (<1.2) APTT (22.0-30.0) sec Sodium (137-145) mmol/L Potassium (3.5-5.1) mmol/L Chloride (98-107) mmol/L Carbon Dioxide (22-30) mmol/L Anion Gap mmol/L BUN (7-17) mg/dL Creatinine (0.52-1.04) mg/dL Est GFR (CKD-EPI)AfAm (>60 ml/min/1.73 sqM) Est GFR (CKD-EPI)NonAf (>60 ml/min/1.73 sqM) Glucose (74-99) mg/dL POC Glucose (mg/dL) >600 H* 597 H* 524 H* (70-110) mg/dL POC Glu Pot Puncher ID Aram Anel Aram Anel Aram Anel Calcium (8.4-10.2) mg/dL Magnesium (1.6-2.3) mg/dL Total Bilirubin (0.2-1.3) mg/dL AST (14-36) U/L ALT (4-34) U/L Alkaline Phosphatase (38-126) U/L Troponin I (0.000-0.034) ng/mL NT-Pro-B Natriuret Pep pg/mL Total Protein (6.3-8.2) g/dL Albumin (3.5-5.0) g/dL Acetone, Qual (Negative) - EKG Data -: EKG Interpreted by Me (EKG is sinus 78 TX 266 QRS 141 QTc 437) - Radiology Data Radiology results: report reviewed (Chest x-ray is positive for CHF), image reviewed Critical Care Time Critical Care Time: Yes Total Critical Care Time: 31 Disposition Clinical Impression: COPD (chronic obstructive pulmonary disease), Dehydration, Pulmonary edema, Respiratory distress, Weakness, Diabetes mellitus, Hyperglycemia Disposition: ADMITTED IP TO THIS HOSP Condition: Serious Is patient prescribed a controlled substance at d/c from ED?: No Time of Disposition: 22:40
[2024-12-20 20:35] LABS: Glucose,Whole Blood >600 mg/dL (70-110)
[2024-12-20] MEDS: IPRATROPIUM-ALBUTEROL 3 ML NEB INHALATION STA ×2 (20:44→23:29)
[2024-12-20] MEDS: SODIUM CHLORIDE 0.9% 1,000 ML IV SCH ×2 (20:45→21:50)
[2024-12-20 20:48] LABS: HGB 9.6 g/dL (12.0-15.0); Lymphocytes % (A) 2.7 %; MCH 32.8 pg (27.0-32.0); MCV 102.4 fL (80.0-97.0); Mean Platelet Volume 9.2 fL (9.5-12.2); Monocytes # (A) 0.23 10*3/uL (0.20-1.00); Neutrophils % (A) 94.3 %; Platelet Count 283 10*3/uL (140-440); RBC 2.93 10*6/uL (4.10-5.20); RDW 13.3 % (11.5-14.5); WBC 11.24 10*3/uL (4.50-10.00)
[2024-12-20 21:04] LABS: ALT 23 U/L (4-34); AST 23 U/L (14-36); African American GFR (CKD) 44 (>60 ml/min/1.73 sqM); Albumin 3.6 g/dL (3.5-5.0); Alkaline Phosphatase 73 U/L (38-126); Anion Gap 13 mmol/L; Blood Urea Nitrogen 50 mg/dL (7-17); Carbon Dioxide 19 mmol/L (22-30); Chloride 100 mmol/L (98-107); Magnesium 2.1 mg/dL (1.6-2.3); Non-African American GFR(CKD) 38 (>60 ml/min/1.73 sqM); Potassium 5.3 mmol/L (3.5-5.1); Sodium 132 mmol/L (137-145); Total Protein 6.2 g/dL (6.3-8.2)
[2024-12-20 21:08] LABS: INR 0.9 (<1.2)
[2024-12-20 21:12] LABS: NT-Pro-B-Type Natriuretic Pept 3110 pg/mL
[2024-12-20 21:16] LABS: Glucose 570 mg/dL (74-99)
--- NOTE | 2024-12-20 21:18 | XR ---
EXAMINATION TYPE: XR chest 2V DATE OF EXAM: 12/20/2024 8:45 PM COMPARISON: Chest radiographs from 05/20/2024 CLINICAL INDICATION: Female, 74 years old with history of difficulty breathing; [facility] TECHNIQUE: XR chest 2V Frontal and lateral views of the chest. FINDINGS: Lungs/Pleura: No evidence of focal consolidation or pneumothorax. Blunting of the costophrenic angles is present. Pulmonary vascularity: Pulmonary vascular congestion. Heart/mediastinum: Cardiomediastinal silhouette is enlarged. Atherosclerotic calcifications are seen in the aorta. Musculoskeletal: No acute osseous pathology. IMPRESSION: Cardiomegaly, pulmonary vascular congestion and bilateral pleural effusions. Correlate with BNP for c ongestive heart failure. [facility], , 12/20/2024 9:16 PM
[2024-12-20 21:22] LABS: Partial Thromboplastin Time 18.4 sec (22.0-30.0)
[2024-12-20 21:45] LABS: Glucose,Whole Blood 597 mg/dL (70-110)
[2024-12-20 21:45] LABS: Glucose,Whole Blood >600 mg/dL (70-110)
[2024-12-20] MEDS: INSULIN REGULAR 100 UNIT/ML VIAL (IM/SQ) SQ ONE (21:51)
[2024-12-20] MEDS: INSULIN REGULAR 100 UNIT/ML VIAL (IV) IV ONE (21:53)
[2024-12-20 22:34] LABS: Glucose,Whole Blood 524 mg/dL (70-110)
[2024-12-20] MEDS ORDERED: NALOXONE 0.4 MG/ML 1 ML VIAL IV PRN (22:40)
[2024-12-20] MEDS ORDERED: ONDANSETRON 4 MG/2 ML VIAL IVP PRN (22:40)
[2024-12-20] MEDS: FUROSEMIDE 10 MG/ML 4 ML VIAL IV SCH (22:56)
[2024-12-20] MEDS: ALBUTEROL NEBULIZED 2.5 MG/3 ML INHALATION SCH (23:26)
[2024-12-20 23:43] LABS: Glucose,Whole Blood 449 mg/dL (70-110)
[2024-12-21 06:01] LABS: Basophils # (A) 0.03 10*3/uL (0.00-0.10); Basophils % (A) 0.3 %; Eosinophils # (A) 0.01 10*3/uL (0.04-0.35); Eosinophils % (A) 0.1 %; HCT 28.3 % (37.2-46.3); HGB 8.9 g/dL (12.0-15.0); Lymphocytes # (A) 1.34 10*3/uL (0.90-5.00); Lymphocytes % (A) 11.5 %; MCH 32.7 pg (27.0-32.0); MCHC 31.4 g/dL (32.0-37.0); Mean Platelet Volume 9.4 fL (9.5-12.2); Monocytes # (A) 0.88 10*3/uL (0.20-1.00); Monocytes % (A) 7.5 %; Neutrophils # (A) 9.34 10*3/uL (1.80-7.70); Platelet Count 338 10*3/uL (140-440); RBC 2.72 10*6/uL (4.10-5.20); RDW 13.4 % (11.5-14.5); WBC 11.67 10*3/uL (4.50-10.00)
[2024-12-21 06:12] LABS: ALT 21 U/L (4-34); AST 17 U/L (14-36); African American GFR (CKD) 44 (>60 ml/min/1.73 sqM); Albumin 3.5 g/dL (3.5-5.0); Alkaline Phosphatase 70 U/L (38-126); Anion Gap 11 mmol/L; Blood Urea Nitrogen 50 mg/dL (7-17); Calcium 9.3 mg/dL (8.4-10.2); Carbon Dioxide 22 mmol/L (22-30); Chloride 102 mmol/L (98-107); Glucose 278 mg/dL (74-99); Non-African American GFR(CKD) 38 (>60 ml/min/1.73 sqM); Phosphorus 3.6 mg/dL (2.5-4.5); Potassium 4.4 mmol/L (3.5-5.1); Sodium 135 mmol/L (137-145); Total Bilirubin 0.8 mg/dL (0.2-1.3)
[2024-12-21] MEDS: PANTOPRAZOLE 40 MG/10 ML VIAL IV SCH (08:19)
[2024-12-21] MEDS: MORPHINE SULFATE 4 MG/ML SYRINGE IV PRN (10:52)
[2024-12-21] MEDS ORDERED: DEXTROSE 50% SYRINGE 50 ML IVP PRN ×2 (11:16)
--- NOTE | 2024-12-21 11:18 | P.HPIM ---
History of Present Illness This is a pleasant 74 years old female with past medical history of CHF and oxygen 3 L at home Presents because of chest pain and dyspnea of 1 day duration. And dyspnea was been a problem for 2 days associated with little cough but has chest pain also of 1 day duration about 5/10 central nonradiating felt like sharp improved with giving her more oxygen with no precipitating factors like coughing or deep breath. She has also some headache and dizziness for about a week She has some burning in her urine a few days ago but no dysuria or urgency. No specific GI symptoms. No weakness or numbness patient states that she has chr onic hip problem but her doctor thinks she is too old to operate on She takes insulin at home but she does not know the dose. She uses insulin with the help of her daughter. She is mildly tachypneic saturating 96% on 3 L oxygen She has mild leukocytosis at 11.6, hemoglobin 8.9, creatinine 1.3 with baseline 1.1-1.5. Glucose elevated more than 600 currently 499. Acetone is negative. proBNP is elevated 3110. EKG sinus rhythm with first-degree AV block and rate [address]-T changes but there is interventricular conduction delay. QTc 437. Chest x-ray showed cardiomegaly with pulmonary vascular congestion Echocardiogram pending. Was admitted with cardiac consult and IV Lasix Review of Systems Review of systems CONSTITUTIONAL: No fever, no malaise, no fatigue. HEENT: No recent visual problems or hearing problems. Denied any sore throat. CARDIOVASCULAR: No orthopnea, PND, no palpitations, no syncope. PULMONARY: No chest wall tenderness, no hemoptysis. GASTROINTESTINAL: No diarrhea, no nausea, no vomiting, no abdominal pain. Normoactive bowel sounds. NEUROLOGICAL: No headaches, no weakness, no numbness. HEMATOLOGICAL: Denies any bleeding or petechiae. GENITOURINARY: Denies any burning micturition, frequency, or urgency. MUSCULOSKELETAL/RHEUMATOLOGICAL: Denies any joint pain, swelling, or any muscle pain. ENDOCRINE: Denies any polyuria or polydipsia. 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, R caratid artery disease, valvular disease, pulmonary htn, bronchitis, home oxygen prn, poor vision/pt cannot recall reason, UTIs, rash/itching, WAS SEEN IN ER 12/2022 FOR N/V Last Myocardial Infarction Date:: 2014 History of Any Multi-Drug Resistant Organisms: ESBL Date of last positivie culture/infection: 04/15/21 MDRO Source:: ESBL URINE Past Surgical History: Cholecystectomy, Coronary Bypass/CABG, Heart Catheterization With Stent Additional Past Surgical History / Comment(s): PCI/stents in 2009 and 2014, 2017 CABG 3 vessel then sternal debridement for infection/removal of hardware, colonoscopy, bilateral cataract removals. Past Anesthesia/Blood Transfusion Reactions: No Reported Reaction Additional Past Anesthesia/Blood Transfusion Reaction / Comment(s): Claustrophobic Date of Last Stent Placement:: 2014 Past Psychological History: No Psychological Hx Reported Smoking Status: Former smoker Past Alcohol Use History: None Reported Past Drug Use History: None Reported - Past Family History Father Family Medical History: Coronary Artery Disease (CAD), Myocardial Infarction ([place]) Additional Family Medical History / Comment(s): STENT, OPEN HEART SURGERY Mother History Unknown: Yes Additional Family Medical History / Comment(s): DEPRESSION, mental illness Medications and Allergies Home Medications Medication Instructions Recorded Confirmed Type Atorvastatin [Lipitor] 80 mg PO HS 09/23/20 05/18/24 History Aspirin EC [Ecotrin Low Dose] 81 mg PO DAILY 12/12/21 05/18/24 History Clopidogrel Bisulfate [Plavix] 75 mg PO DAILY 12/12/21 05/18/24 History Insulin Lispro [humaLOG Kwikpen] 15 units SQ AC-TID #0 06/19/22 05/18/24 Rx traMADol HCL 50 mg PO BID 02/21/23 05/18/24 History Metoprolol Succinate [Toprol XL] 50 mg PO DAILY 11/02/23 05/18/24 History Omeprazole [PriLOSEC] 20 mg PO BID 11/02/23 05/18/24 History Budesonide-Formot 160-4.5 Mcg 2 puff INHALATION RT-BID 30 Days 11/05/23 05/18/24 Rx [Symbicort 160-4.5 Mcg Inhaler] #1 each Cholecalciferol [Vitamin D3 (125 125 mcg PO DAILY 05/01/24 05/18/24 History Mcg = 5000 Iu)] Insulin Glargine,Hum.rec.anlog 80 units SQ HS 05/01/24 05/18/24 History [Lantus Solostar Pen] Albuterol Sulfate [Ventolin HFA] 2 puff INHALATION RT-QID PRN 05/18/24 05/18/24 History Ipratropium-Albuterol Nebulize 3 ml INHALATION RT-QID PRN 05/18/24 05/18/24 History [Duoneb 0.5 mg-3 mg/3 ml Soln] Dapagliflozin Propanediol [Farxiga] 10 mg PO DAILY #30 tab 05/21/24 Rx Ipratropium-Albuterol Nebulize 3 ml INHALATION RT-QID each 05/21/24 Rx [Duoneb 0.5 mg-3 mg/3 ml Soln] Valsartan [Diovan] 160 mg PO DAILY 30 Days #30 tab 05/21/24 Rx predniSONE See Taper PO DIRECTED #30 tab 05/21/24 Rx Allergies Allergy/AdvReac Type Severity Reaction Status Date / Time codeine AdvReac Nausea & Verified 12/20/24 20:24 Vomiting Physical Exam Vitals: Vital Signs Temp Pulse Resp BP Pulse Ox 12/21/24 10:51 65 16 133/45 96 12/21/24 08:15 65 18 134/59 96 12/21/24 07:52 62 12/21/24 07:38 63 99 12/21/24 06:30 69 20 145/55 100 12/21/24 04:12 66 20 12/21/24 04:06 66 20 12/21/24 02:00 70 18 155/58 99 12/21/24 00:00 79 20 139/53 99 12/20/24 23:35 75 18 12/20/24 23:29 79 18 12/20/24 23:00 76 18 141/58 99 12/20/24 22:06 81 22 113/91 98 12/20/24 20:58 79 20 12/20/24 20:47 73 24 144/47 100 12/20/24 20:46 76 22 12/20/24 20:41 26 H 12/20/24 20:21 98.4 F 80 26 H 142/45 100 Intake and Output 12/20/24 12/21/24 12/21/24 22:59 06:59 14:59 Output Total 1220 Balance -1220 Output: Urine 1220 Other: Weight 77.111 kg GENERAL: The patient is alert and oriented x3, not in any acute distress. Well developed, well nourished. HEENT: Pupils are round and equally reacting to light. EOMI. No scleral icterus. No conjunctival pallor. Normocephalic, atraumatic. No pharyngeal erythema. No thyromegaly. CARDIOVASCULAR: S1 and S2 present. No murmurs, rubs, or gallops. -PULMONARY: Chest is clear to auscultation, no wheezing , bilateral basal crackles. On nasal cannula, tachypneic ABDOMEN: Soft, nontender, nondistended, normoactive bowel sounds. No palpable organomegaly. MUSCULOSKELETAL: No joint swelling or deformity. -EXTREMITIES: No cyanosis, clubbing, . bilateral pitting leg edema NEUROLOGICAL: Gross neurological examination did not reveal any focal deficits. SKIN: No rashes. no petechiae. Results CBC & Chem 7: 12/21/24 05:24 12/21/24 05:24 Labs: Abnormal Lab Results - Last 24 Hours (Table) 12/20/24 12/20/24 12/20/24 Range/Units 20:34 20:34 20:34 WBC 11.24 H (4.50-10.00) 10*3/uL RBC 2.93 L (4.10-5.20) 10*6/uL Hgb 9.6 L (12.0-15.0) g/dL Hct 30.0 L (37.2-46.3) % MCV 102.4 H (80.0-97.0) fL MCH 32.8 H (27.0-32.0) pg MCHC (32.0-37.0) g/dL MPV 9.2 L (9.5-12.2) fL Immature Gran # 0.11 H (0.00-0.04) 10*3/uL Neutrophils # 10.60 H (1.80-7.70) 10*3/uL Lymphocytes # 0.30 L (0.90-5.00) 10*3/uL Eosinophils # 0.00 L (0.04-0.35) 10*3/uL APTT 18.4 L (22.0-30.0) sec Sodium 132 L (137-145) mmol/L Potassium 5.3 H (3.5-5.1) mmol/L Carbon Dioxide 19 L (22-30) mmol/L BUN 50 H (7-17) mg/dL Creatinine 1.37 H (0.52-1.04) mg/dL Glucose 570 H* (74-99) mg/dL POC Glucose (mg/dL) (70-110) mg/dL Total Protein 6.2 L (6.3-8.2) g/dL 12/20/24 12/20/24 12/20/24 Range/Units 20:34 21:42 21:43 WBC (4.50-10.00) 10*3/uL RBC (4.10-5.20) 10*6/uL Hgb (12.0-15.0) g/dL Hct (37.2-46.3) % MCV (80.0-97.0) fL MCH (27.0-32.0) pg MCHC (32.0-37.0) g/dL MPV (9.5-12.2) fL Immature Gran # (0.00-0.04) 10*3/uL Neutrophils # (1.80-7.70) 10*3/uL Lymphocytes # (0.90-5.00) 10*3/uL Eosinophils # (0.04-0.35) 10*3/uL APTT (22.0-30.0) sec Sodium (137-145) mmol/L Potassium (3.5-5.1) mmol/L Carbon Dioxide (22-30) mmol/L BUN (7-17) mg/dL Creatinine (0.52-1.04) mg/dL Glucose (74-99) mg/dL POC Glucose (mg/dL) >600 H* >600 H* 597 H* (70-110) mg/dL Total Protein (6.3-8.2) g/dL 12/20/24 12/20/24 12/21/24 Range/Units 22:33 23:42 05:24 WBC 11.67 H (4.50-10.00) 10*3/uL RBC 2.72 L (4.10-5.20) 10*6/uL Hgb 8.9 L (12.0-15.0) g/dL Hct 28.3 L (37.2-46.3) % MCV 104.0 H (80.0-97.0) fL MCH 32.7 H (27.0-32.0) pg MCHC 31.4 L (32.0-37.0) g/dL MPV 9.4 L (9.5-12.2) fL Immature Gran # 0.07 H (0.00-0.04) 10*3/uL Neutrophils # 9.34 H (1.80-7.70) 10*3/uL Lymphocytes # (0.90-5.00) 10*3/uL Eosinophils # 0.01 L (0.04-0.35) 10*3/uL APTT (22.0-30.0) sec Sodium (137-145) mmol/L Potassium (3.5-5.1) mmol/L Carbon Dioxide (22-30) mmol/L BUN (7-17) mg/dL Creatinine (0.52-1.04) mg/dL Glucose (74-99) mg/dL POC Glucose (mg/dL) 524 H* 449 H (70-110) mg/dL Total Protein (6.3-8.2) g/dL 12/21/24 Range/Units 05:24 WBC (4.50-10.00) 10*3/uL RBC (4.10-5.20) 10*6/uL Hgb (12.0-15.0) g/dL Hct (37.2-46.3) % MCV (80.0-97.0) fL MCH (27.0-32.0) pg MCHC (32.0-37.0) g/dL MPV (9.5-12.2) fL Immature Gran # (0.00-0.04) 10*3/uL Neutrophils # (1.80-7.70) 10*3/uL Lymphocytes # (0.90-5.00) 10*3/uL Eosinophils # (0.04-0.35) 10*3/uL APTT (22.0-30.0) sec Sodium 135 L (137-145) mmol/L Potassium (3.5-5.1) mmol/L Carbon Dioxide (22-30) mmol/L BUN 50 H (7-17) mg/dL Creatinine 1.37 H (0.52-1.04) mg/dL Glucose 278 H (74-99) mg/dL POC Glucose (mg/dL) (70-110) mg/dL Total Protein 6.0 L (6.3-8.2) g/dL Assessment and Plan Assessment: Acute CHF exacerbation, unknown ejection fraction Chest pain rule out acute coronary syndrome Diabetes mellitus with hyperglycemia Chronic hypoxic respiratory failure CKD stage III Dementia Coronary artery disease COPD with no acute exacerbation History of CVA/TIA Hypertension Hyperlipidemia Plan: Continue with IV Lasix Cardiology consult Continue with aspirin Follow-up echocardiogram Start her on L Lantus and verify home dose. Asked patient to bring home medication from daughter and she agrees documented she takes Lantus 8 units but patient does not think she takes that splint will start with 20 units Monitor creatinine and electrolytes check urine analysis and bladder scan Labs and medication were reviewed.. Continue same treatment. Continue with symptomatic treatment. Resume home medication. Monitor labs and vitals. DVT and GI prophylaxis. Further recommendations as per clinical course of the patient DVT prophylaxis: Subcutaneous heparin GI Prophylaxis: Pepcid PT/OT: Pending Prognosis is guarded
[2024-12-21] MEDS: INSULIN GLARGINE (LANTUS) 100 UNIT/ML SYR SQ SCH (11:49)
[2024-12-21 12:21] LABS: Glucose,Whole Blood 279 mg/dL (70-110)
[2024-12-21] MEDS: INSULIN LISPRO (HumaLOG) 100 UNIT/ML 10 mL VL SQ SCH (13:41)
[2024-12-21] MEDS: ASPIRIN 81 MG PO SCH (13:41)
[2024-12-21 16:04] LABS: Glucose,Whole Blood 297 mg/dL (70-110)
[2024-12-21] MEDS: ACETAMINOPHEN TAB 325 MG TAB PO PRN (16:36)
--- NOTE | 2024-12-21 17:11 | P.CRDCN ---
History of Present Illness Consult date: 12/21/24 History of present illness: HPI: The patient is a 74-year-old female with a history of CHF and chronic hypoxia on 3 liters of oxygen, COPD, ischemic cardiomyopathy with an EF of 45%, coronary artery disease, hypertension, dyslipidemia, type 2 diabetes, obesity, and prior CVA. She presented with generalized weakness, dizziness, and chest heaviness that began 1-2 days ago. She describes the chest pressure as central, sharp, and non-radiating. She also reports lightheadedness, dizziness, headache, and burning sensation with increased frequency of urination. Patient is a poor historian. On admission she was noted to be hyperglycemia with respiratory distress with tachypnea and hypoxia and congestive heart failure exacerbation for which cardiology was consulted. Pertinent Vitals: Admission BP 142/70 mmHg, HR 175 BPM Pertinent cardiac Labs: Hb 8.9, WBC 11.6, Na 135, BUN 50, [employer] S[employer]ice 1.37, Glucose 450, Trop 0.038 Cardiac home meds: Lasix 20 mg, Metoprolol 50 mg daily, Aspirin 81 mg, Lipitor 80 mg, Farxiga 10 mg, Aldactone 25 mg, Valsartan 160 mg Pertinent cardiac testing: - EKG from this admission shows sinus rhythm with right axis deviation with incomplete left bundle branch block - Chest x-ray shows bilateral pulmonary congestion/stable fluid overload Prior cardiac testing - Echo: 10/2023: EF 45%, poor quality study with limited views - Heart Cath: 2017: Cx disease with collaterals, moderate to severe in LAD, severe in 1st OM, recommended CABG - CABG from 2017: 3 vessel CABG with WELCH to LAD, SVG to PDA, SVG to OM REVIEW OF SYSTEMS: 14 point review of system is negative except what is mentioned above in HPI. PHYSICAL EXAMINATION: Neck: Brisk carotid upstroke, no jugular venous distention. Lungs: Clear to auscultation. Heart: Regular rate and rhythm, S1-S2, no murmur or rub. Abdomen: Soft nontender, positive bowel sounds. Extremities: No edema, intact distal pulses. Neuro: Alert, oriented, no focal deficits. Detailed neuro exam was not performed. ASSESSMENT: # Acute on chronic HFrEF exacerbation # Ischemic cardiomyopathy # History of CAD, status post CABG in 2017 # Type 2 diabetes, currently poorly controlled with hyperglycemia # COPD with chronic hypoxia # Obesity, dyslipidemia, essential hypertension PLAN: Continue IV Lasix 40 mg BID Continue aspirin 81, Lipitor 80, Farxiga 10, Aldactone 25, losartan 50, metoprolol XL 50 mg daily Obtain updated echocardiogram Monitor kidney function electrolytes and urine output Trend troponins Past Medical History Past Medical History: Asthma, Coronary Artery Disease (CAD), Chest Pain / Angina, Heart Failure, COPD, CVA/TIA, Dementia, Diabetes Mellitus, Hyperlipidemia, Hypertension, Myocardial Infarction ([place]), Pneumonia, Respiratory Disorder, Syncope, Vascular Disorder Additional Past Medical History / Comment(s): IDDM type II, neuropathy bilateral feet, 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, R caratid artery disease, valvular disease, pulmonary htn, bronchitis, home 3liters oxygen prn, poor vision/pt cannot recall reason, UTIs, rash/itching Last Myocardial Infarction Date:: 2014 History of Any Multi-Drug Resistant Organisms: ESBL Date of last positivie culture/infection: 04/15/21 MDRO Source:: ESBL URINE Past Surgical History: Cholecystectomy, Coronary Bypass/CABG, Heart Cat heterization With Stent Additional Past Surgical History / Comment(s): PCI/stents in 2009 and 2014, 2016 CABG 3 vessel then sternal debridement for infection/removal of hardware, colonoscopy, bilateral cataract removals. Past Anesthesia/Blood Transfusion Reactions: No Reported Reaction Additional Past Anesthesia/Blood Transfusion Reaction / Comment(s): Claustrophobic Date of Last Stent Placement:: 2014 Past Psychological History: No Psychological Hx Reported Additional Psychological History / Comment(s): Pt's daughter lives with her. Pt states she uses no assistive device. She has a nebulizer and home oxygen which she uses prn. She no longer drives, her mague takes her to [employer]. Smoking Status: Former smoker Past Alcohol Use History: None Reported Additional Past Alcohol Use History / Comment(s): Pt started smoking in 1963 and quit in 2009 Past Drug Use History: None Reported - Past Family History Father Family Medical History: Coronary Artery Disease (CAD), Myocardial Infarction ([place]) Additional Family Medical History / Comment(s): STENT, OPEN HEART SURGERY Mother History Unknown: Yes Additional Family Medical History / Comment(s): DEPRESSION, mental illness Medications and Allergies Home Medications Medication Instructions Recorded Confirmed Type Atorvastatin [Lipitor] 80 mg PO HS 09/23/20 12/21/24 History Aspirin EC [Ecotrin Low Dose] 81 mg PO DAILY 12/12/21 12/21/24 History Clopidogrel Bisulfate [Plavix] 75 mg PO DAILY 12/12/21 12/21/24 History traMADol HCL 50 mg PO BID 02/21/23 12/21/24 History Metoprolol Succinate [Toprol XL] 50 mg PO DAILY 11/02/23 12/21/24 History Omeprazole [PriLOSEC] 20 mg PO AC-BID 11/02/23 12/21/24 History Budesonide-Formot 160-4.5 Mcg 2 puff INHALATION RT-BID 30 Days 11/05/23 12/21/24 Rx [Symbicort 160-4.5 Mcg Inhaler] #1 each Insulin Glargine,Hum.rec.anlog 80 units SQ HS 05/01/24 12/21/24 History [Lantus Solostar Pen] Dapagliflozin Propanediol [Farxiga] 10 mg PO DAILY #30 tab 05/21/24 12/21/24 Rx Valsartan [Diovan] 160 mg PO DAILY 30 Days #30 tab 05/21/24 12/21/24 Rx Albuterol Nebulized [Ventolin 2.5 mg INHALATION RT-TID 12/21/24 12/21/24 History Nebulized] Furosemide [Lasix] 20 mg PO DAILY 12/21/24 12/21/24 History Insulin Lispro [humaLOG Kwikpen] 20 units SQ AC-TID 12/21/24 12/21/24 History Spironolactone [Aldactone] 25 mg PO DAILY 12/21/24 12/21/24 History predniSONE [Deltasone] See Taper PO DAILY 12/21/24 12/21/24 History Allergies Allergy/AdvReac Type Severity Reaction Status Date / Time codeine AdvReac Nausea & Verified 12/21/24 11:26 Vomiting Physical Exam Vitals: Vital Signs Temp Pulse Pulse Resp BP BP Pulse Ox 12/21/24 16:58 65 12/21/24 16:34 141/74 12/21/24 14:46 97.6 F 75 16 186/65 98 12/21/24 13:50 98.3 F 75 18 117/55 97 12/21/24 11:26 66 12/21/24 11:15 70 12/21/24 10:51 65 16 133/45 96 12/21/24 08:15 65 18 134/59 96 12/21/24 07:52 62 12/21/24 07:38 63 99 12/21/24 06:30 69 20 145/55 100 12/21/24 04:12 66 20 12/21/24 04:06 66 20 12/21/24 02:00 70 18 155/58 99 12/21/24 00:00 79 20 139/53 99 12/20/24 23:35 75 18 12/20/24 23:29 79 18 12/20/24 23:00 76 18 141/58 99 12/20/24 22:06 81 22 113/91 98 12/20/24 20:58 79 20 12/20/24 20:47 73 24 144/47 100 12/20/24 20:46 76 22 12/20/24 20:41 26 H 12/20/24 20:21 98.4 F 80 26 H 142/45 100 Intake and Output 12/21/24 12/21/24 12/21/24 06:59 14:59 22:59 Output Total 1220 Balance -1220 Output: Urine 1220 Other: # Voids 2 Weight 77.111 kg 87.6 kg Results 12/21/24 05:24 12/21/24 05:24 Cardiac Enzymes 12/20/24 12/20/24 12/21/24 Range/Units 20:34 20:34 05:24 AST 23 17 (14-36) U/L Troponin I 0.032 (0.000-0.034) ng/mL 12/21/24 Range/Units 15:27 AST (14-36) U/L Troponin I 0.038 H* (0.000-0.034) ng/mL Coagulation 12/20/24 Range/Units 20:34 PT 10.0 (10.0-12.5) sec APTT 18.4 L (22.0-30.0) sec CBC 12/20/24 12/21/24 Range/Units 20:34 05:24 WBC 11.24 H 11.67 H (4.50-10.00) 10*3/uL RBC 2.93 L 2.72 L (4.10-5.20) 10*6/uL Hgb 9.6 L 8.9 L (12.0-15.0) g/dL Hct 30.0 L 28.3 L (37.2-46.3) % Plt Count 283 338 (140-440) 10*3/uL Comprehensive Metabolic Panel 12/20/24 12/21/24 Range/Units 20:34 05:24 Sodium 132 L 135 L (137-145) mmol/L Potassium 5.3 H 4.4 (3.5-5.1) mmol/L Chloride 100 102 (98-107) mmol/L Carbon Dioxide 19 L 22 (22-30) mmol/L BUN 50 H 50 H (7-17) mg/dL Creatinine 1.37 H 1.37 H (0.52-1.04) mg/dL Glucose 570 H* 278 H (74-99) mg/dL Calcium 9.0 9.3 (8.4-10.2) mg/dL AST 23 17 (14-36) U/L ALT 23 21 (4-34) U/L Alkaline Phosphatase 73 70 (38-126) U/L Total Protein 6.2 L 6.0 L (6.3-8.2) g/dL Albumin 3.6 3.5 (3.5-5.0) g/dL Current Medications Generic Name Dose Route Start Last Admin Trade Name Freq PRN Reason Stop Dose Admin Acetaminophen 325 mg 12/21/24 11:17 12/21/24 16:36 Acetaminophen Tab 325 Mg Tab PO 325 mg Q6HR PRN Administration Fever and/ or Mild Pain Albuterol Sulfate 2.5 mg 12/21/24 00:00 12/21/24 16:57 Albuterol Nebulized 2.5 Mg/3 Ml INHALATION 2.5 mg RT-Q4H KAREN Administration Aspirin 81 mg 12/21/24 11:30 12/21/24 13:41 Aspirin 81 Mg PO 81 mg DAILY KAREN Administration Atorvastatin Calcium 80 mg 12/21/24 21:00 Atorvastatin 80 Mg Tab PO HS KAREN Dapagliflozin 10 mg 12/21/24 17:15 Dapagliflozin Propanediol 10 Mg Tablet PO DAILY KAREN Dextrose/Water 25 ml 12/21/24 11:16 Dextrose 50% Syringe 50 Ml IVP PER PROTOCOL PRN Hypoglycemia Protocol Dextrose/Water 50 ml 12/21/24 11:16 Dextrose 50% Syringe 50 Ml IVP PER PROTOCOL PRN Hypoglycemia Protocol Famotidine 20 mg 12/21/24 21:00 Famotidine 20 Mg/2 Ml Vial IV Q12HR [facility] Furosemide 40 mg 12/20/24 22:45 12/21/24 11:01 Furosemide 10 Mg/Ml 4 Ml Vial IV 40 mg Q12H KAREN Administration Heparin Sodium (Porcine) 5,000 unit 12/21/24 21:00 Heparin Sodium,Porcine 5,000 Unit/Ml 1 Ml Vial SQ Q12HR [facility] Insulin Glargine 20 unit 12/21/24 11:30 12/21/24 11:49 Insulin Glargine (Lantus) 100 Unit/Ml Syr SQ Not Given DAILY@0700 [facility] Insulin Human Lispro 0 unit 12/21/24 12:30 12/21/24 16:48 Insulin Lispro (Humalog) 100 Unit/Ml 10 Ml Vl SQ 3 unit ACHS KAREN Administration Protocol Losartan Potassium 50 mg 12/21/24 17:15 Losartan 50 Mg Tab PO DAILY [facility] Metoprolol Succinate 50 mg 12/21/24 17:15 Metoprolol Succinate (Er) 50 Mg Tab.Er.24h PO DAILY [facility] Morphine Sulfate 4 mg 12/20/24 22:40 12/21/24 10:52 Morphine Sulfate 4 Mg/Ml Syringe IV 4 mg Q4HR PRN Administration Severe Pain (Scale 7 to 10) Naloxone HCl 0.2 mg 12/20/24 22:40 Naloxone 0.4 Mg/Ml 1 Ml Vial IV Q2M PRN Opioid Reversal Ondansetron HCl 4 mg 12/20/24 22:40 Ondansetron 4 Mg/2 Ml Vial IVP Q8HR PRN Nausea And Vomiting Pantoprazole Sodium 40 mg 12/21/24 09:00 12/21/24 08:19 Pantoprazole 40 Mg/10 Ml Vial IV 40 mg DAILY KAREN Administration Spironolactone 25 mg 12/21/24 17:15 Spironolactone 25 Mg Tab PO DAILY [facility] Intake and Output 12/21/24 12/21/24 12/21/24 06:59 14:59 22:59 Output Total 1220 Balance -1220 Output: Urine 1220 Other: # Voids 2 Weight 77.111 kg 87.6 kg Patient Weight 12/22/24 06:59 Weight 87.6 kg 12/21/24 05:24 12/21/24 05:24
[2024-12-21] MEDS: SPIRONOLACTONE 25 MG TAB PO SCH (17:22)
[2024-12-21] MEDS: METOPROLOL SUCCINATE (ER) 50 MG TAB.ER.24H PO SCH (17:22)
[2024-12-21] MEDS: DAPAGLIFLOZIN PROPANEDIOL 10 MG TABLET PO SCH (17:22)
[2024-12-21] MEDS: LOSARTAN 50 MG TAB PO SCH (17:22)
[2024-12-21 20:03] LABS: Glucose,Whole Blood 161 mg/dL (70-110)
[2024-12-21] MEDS ORDERED: FAMOTIDINE 20 MG/2 ML VIAL IV SCH (21:00)
[2024-12-21] MEDS: HEPARIN SODIUM,PORCINE 5,000 UNIT/ML 1 ML VIAL SQ SCH (21:52)
[2024-12-21] MEDS: FAMOTIDINE 20 MG/2 ML VIAL IV SCH (21:52)
[2024-12-21] MEDS: ATORVASTATIN 80 MG TAB PO SCH (21:53)
[2024-12-22 06:15] LABS: Glucose,Whole Blood 236 mg/dL (70-110)
[2024-12-22 07:25] LABS: Chol/HDL Ratio 2.02 Ratio; LDL Cholesterol,Calculated 43.7 mg/dL (0.0-131.0); VLDL Calculation 13.34 mg/dL (5.00-40.00)
[2024-12-22 08:34] LABS: HCT 29.8 % (37.2-46.3); HGB 9.2 g/dL (12.0-15.0); MCH 32.6 pg (27.0-32.0); MCHC 30.9 g/dL (32.0-37.0); MCV 105.7 FL (80.0-97.0); Mean Platelet Volume 9.7 FL (9.5-12.2); NRBC Per 100 WBC 0 X 10*3/uL (0.00-0.01); Platelet Count 342 X 10*3/uL (140-440); RBC 2.82 X 10*6/uL (4.10-5.20); RDW 13.7 % (11.5-14.5); WBC 13.02 X 10*3/uL (4.50-10.00)
[2024-12-22 08:39] LABS: Blood Urea Nitrogen 64.6 mg/dL (9.0-27.0); Chloride 104 mmol/L (96-109); Glucose 254 mg/dL (70-110); Sodium 140 mmol/L (135-145)
[2024-12-22 08:40] LABS: Calcium 9.1 mg/dL (8.7-10.3); Carbon Dioxide 22.5 mmol/L (21.6-31.8)
[2024-12-22 09:43] LABS: Basophils # (A) 0.11 X 10*3/uL (0.00-0.10); Basophils % (A) 0.8 %; Eosinophils # (A) 0.45 X 10*3/uL (0.04-0.35); Eosinophils % (A) 3.5 %; Lymphocytes # (A) 2.43 X 10*3/uL (0.90-5.00); Lymphocytes % (A) 18.7 %; Monocytes # (A) 1.06 X 10*3/uL (0.20-1.00); Monocytes % (A) 8.1 %; Neutrophils # (A) 8.85 X 10*3/uL (1.80-7.70)
--- NOTE | 2024-12-22 11:08 | P.PN ---
Subjective Progress Note Date: 12/22/24 HPI: The patient is a 74-year-old female with a history of CHF and chronic hypoxia on 3 liters of oxygen, COPD, ischemic cardiomyopathy with an EF of 45%, coronary artery disease, hypertension, dyslipidemia, type 2 diabetes, obesity, and prior CVA. She presented with generalized weakness, dizziness, and chest heaviness that began 1-2 days ago. She describes the chest pressure as central, sharp, and non-radiating. She also reports lightheadedness, dizziness, headache, and burning sensation with increased frequency of urination. Patient is a poor historian. On admission she was noted to be hyperglycemia with respiratory distress with tachypnea and hypoxia and congestive heart failure exacerbation for which cardiology was consulted. Pertinent Vitals: Admission BP 142/70 mmHg, HR 175 BPM Pertinent cardiac Labs: Hb 8.9, WBC 11.6, Na 135, BUN 50, Fiberglass Finisher 1.37, Glucose 450, Trop 0.038 Cardiac home meds: Lasix 20 mg, Metoprolol 50 mg daily, Aspirin 81 mg, Lipitor 80 mg, Farxiga 10 mg, Aldactone 25 mg, Valsartan 160 mg Pertinent cardiac testing: - EKG from this admission shows sinus rhythm with right axis deviation with incomplete left bundle branch block - Chest x-ray shows bilateral pulmonary congestion/stable fluid overload Prior cardiac testing - Echo: 10/2023: EF 45%, poor quality study with limited views - Heart Cath: 2017: Cx disease with collaterals, moderate to severe in LAD, liane re in 1st OM, recommended CABG - CABG from 2017: 3 vessel CABG with WELCH to LAD, SVG to PDA, SVG to OM 12/22 [facility] Patient has no complaints of cough no fever or chills. She denies dysuria. She complains of feeling weak. She has noted to have occasional cough. She states she did have some chest pain yesterday but none today. Her respiratory rate is up today and she is on her home O2 at 3 L. Blood pressure 169/83, heart rate 70s, pulse ox 95% on 3 L. Patient is having hallucinations stating that she saw black flying bugs in her room and also mice on the window. We have asked for a urinalysis to be obtained patient has been maintained on IV Lasix 40 mg every 12 hours. Echocardiogram is pending. Repeat blood work reveals WBC 13, hemoglobin 9.2, BUN 64 creatinine 1.7. Repeat troponins 0.038 and 0.046. PHYSICAL EXAMINATION: Neck: Brisk carotid upstroke, no jugular venous distention. Lungs: Positive expiratory wheeze. Heart: Regular rate and rhythm, S1-S2, no murmur or rub. Abdomen: Soft nontender, positive bowel sounds. Extremities: No edema, intact distal pulses. Neuro: Awake and alert. ASSESSMENT: # Acute on chronic HFrEF exacerbation # Ischemic cardiomyopathy # History of CAD, status post CABG in 2017 # Type 2 diabetes, currently poorly controlled with hyperglycemia # COPD with chronic hypoxia # Obesity, dyslipidemia, essential hypertension Acute kidney injury Hallucinations NSTEMI type II Dementia Chronic hypoxic respiratory failure on home O2 at 3 L PLAN: Discontinue IV Lasix Continue aspirin 81, Lipitor 80, Farxiga 10, Aldactone 25, losartan 50, metoprolol XL 50 mg daily Obtain updated echocardiogram Monitor kidney function electrolytes and urine output Obtain urinalysis to rule out UTI Recurrence of chest pain, will consider ischemic workup Nurse practitioner note has been reviewed, I agree with documented findings and plan of care. Patient was seen and examined. Objective - Vital Signs Vital signs: Vital Signs Temp 97.9 F 12/22/24 07:04 Pulse 72 12/22/24 08:26 Resp 24 12/22/24 07:04 BP 169/83 12/22/24 07:04 Pulse Ox 95 12/22/24 08:26 FiO2 Intake & Output 12/21/24 12/22/24 12/22/24 18:59 06:59 18:59 Intake Total 360 Output Total 2500 Balance -2140 Weight 87.6 kg 84.5 kg Intake: Oral 360 Output: Urine 2500 Other: Voiding Method Bedside Commode External Catheter # Voids 2 3 - Labs CBC & Chem 7: 12/22/24 03:41 12/22/24 03:41 Labs: Abnormal Lab Results - Last 24 Hours (Table) 12/21/24 12/21/24 12/21/24 Range/Units 05:24 12:19 15:27 WBC (4.50-10.00) X 10*3/uL RBC (4.10-5.20) X 10*6/uL Hgb (12.0-15.0) g/dL Hct (37.2-46.3) % MCV (80.0-97.0) FL MCH (27.0-32.0) pg MCHC (32.0-37.0) g/dL Anion Gap (4.00-12.00) mmol/L BUN (9.0-27.0) mg/dL Creatinine (0.6-1.5) mg/dL Est GFR (CKD-EPI) (>=60) BUN/Creatinine Ratio (12.00-20.00) Ratio Glucose (70-110) mg/dL POC Glucose (mg/dL) 279 H (70-110) mg/dL Hemoglobin A1c (<=6.0) % Troponin I 0.038 H* (0.000-0.034) ng/mL TSH 0.111 L (0.465-4.680) mIU/L 12/21/24 12/21/24 12/21/24 Range/Units 16:03 19:07 20:02 WBC (4.50-10.00) X 10*3/uL RBC (4.10-5.20) X 10*6/uL Hgb (12.0-15.0) g/dL Hct (37.2-46.3) % MCV (80.0-97.0) FL MCH (27.0-32.0) pg MCHC (32.0-37.0) g/dL Anion Gap (4.00-12.00) mmol/L BUN (9.0-27.0) mg/dL Creatinine (0.6-1.5) mg/dL Est GFR (CKD-EPI) (>=60) BUN/Creatinine Ratio (12.00-20.00) Ratio Glucose (70-110) mg/dL POC Glucose (mg/dL) 297 H 161 H (70-110) mg/dL Hemoglobin A1c (<=6.0) % Troponin I 0.046 H* (0.000-0.034) ng/mL TSH (0.465-4.680) mIU/L 12/22/24 12/22/24 12/22/24 Range/Units 03:41 03:41 03:41 WBC 13.02 H (4.50-10.00) X 10*3/uL RBC 2.82 L (4.10-5.20) X 10*6/uL Hgb 9.2 L (12.0-15.0) g/dL Hct 29.8 L (37.2-46.3) % MCV 105.7 H (80.0-97.0) FL MCH 32.6 H (27.0-32.0) pg MCHC 30.9 L (32.0-37.0) g/dL Anion Gap 13.50 H (4.00-12.00) mmol/L BUN 64.6 H (9.0-27.0) mg/dL Creatinine 1.7 H (0.6-1.5) mg/dL Est GFR (CKD-EPI) 31 L (>=60) BUN/Creatinine Ratio 38.00 H (12.00-20.00) Ratio Glucose 254 H (70-110) mg/dL POC Glucose (mg/dL) (70-110) mg/dL Hemoglobin A1c 12.1 H (<=6.0) % Troponin I (0.000-0.034) ng/mL TSH (0.465-4.680) mIU/L 12/22/24 Range/Units 06:13 WBC (4.50-10.00) X 10*3/uL RBC (4.10-5.20) X 10*6/uL Hgb (12.0-15.0) g/dL Hct (37.2-46.3) % MCV (80.0-97.0) FL MCH (27.0-32.0) pg MCHC (32.0-37.0) g/dL Anion Gap (4.00-12.00) mmol/L BUN (9.0-27.0) mg/dL Creatinine (0.6-1.5) mg/dL Est GFR (CKD-EPI) (>=60) BUN/Creatinine Ratio (12.00-20.00) Ratio Glucose (70-110) mg/dL POC Glucose (mg/dL) 236 H (70-110) mg/dL Hemoglobin A1c (<=6.0) % Troponin I (0.000-0.034) ng/mL TSH (0.465-4.680) mIU/L
[2024-12-22 11:43] LABS: Glucose,Whole Blood 262 mg/dL (70-110)
[2024-12-22 12:01] LABS: Appearance,Urine Clear (Clear); Bilirubin,Urine Negative (Negative); Blood,Urine Negative (Negative); Color,Urine Colorless; Glucose,Urine (UA) 4+ (Negative); Ketones,Urine Negative (Negative); Leukocyte Esterase,Urine Negative (Negative); Nitrite,Urine Negative (Negative); Protein,Urine Trace (Negative); Urobilinogen,Urine <2.0 mg/dL (<2.0)
--- NOTE | 2024-12-22 15:14 | P.CNPUL ---
History of Present Illness Consult date: 12/22/24 Requesting physician: Bernard E Christine Reason for consult: dyspnea, abnormal CXR/CT Chief complaint: Shortness of breath History of present illness: This is an obese 74-year-old female with a history of chronic obstructive pulmonary disease on home oxygen, coronary artery disease with previous coronary artery bypass surgery and previous stent placement, congestive heart failure, CVA/TIA, dementia, diabetes mellitus, hypertension, hyperlipidemia, former smoker, obstructive sleep apnea intolerant to CPAP. She presented here to the emergency room 12/20/2024 with complaints of increasing shortness of breath recently treated with steroids and then having elevated blood sugars. Initial glucose 570. Chest x-ray shows cardiomegaly, pulmonary vascular congestion and bilateral pleural effusions. White count 13.0. Hemoglobin 9.2. Platelets 342. Sodium 140. Potassium 5.0. Bicarb 23. BUN 65. Creatinine 1.7. Glucose 254. BNP 3110. EKG reveals sinus rhythm with first-degree AV block. Left bundle branch block. She is seen today in consultation on the regular medical floor. She is currently sitting up in a chair at the bedside. Awake and alert in no acute distress. Maintaining O2 saturations in the 90s on 3 L/min per nasal cannula. She has been afebrile. Hemodynamically stable. Review of Systems REVIEW OF SYSTEMS: CONSTITUTIONAL: Denies any recent significant weight loss or weight gain. EYES: Denies change in vision. EARS, NOSE, MOUTH, THROAT: Denies headaches, denies sore throat. CARDIOVASCULAR: Denies chest pain, palpitations or syncopal episodes. RESPIRATORY: Positive for shortness of breath, cough, congestion no hemoptysis. GASTROINTESTINAL: Denies change in appetite, denies abdominal pain GENITOURINARY: Denies hematuria, denies infections. MUSKULOSKELETAL: Denies pain, denies swelling. INTEGUMENTARY: Denies rash, denies eczema. NEUROLOGICAL: Denies recent memory loss, no recent seizure activity. PSYCHIATRIC: Denies anxiety, denies depression. HEMATOLOGIC/LYMPHATIC: Denies anemia, denies enlarged lymph nodes. Past Medical History Past Medical History: Asthma, Coronary Artery Disease (CAD), Chest Pain / Angina, Heart Failure, COPD, CVA/TIA, Dementia, Diabetes Mellitus, Hyperlipidemia, Hypertension, Myocardial Infarction ([place]), Pneumonia, Respiratory Disorder, Syncope, Vascular Disorder Additional Past Medical History / Comment(s): IDDM type II, neuropathy bilateral feet, 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, R caratid artery disease, valvular disease, pulmonary htn, bronchitis, home 3liters oxygen prn, poor vision/pt cannot recall reason, UTIs, rash/itching Last Myocardial Infarction Date:: 2014 History of Any Multi-Drug Resistant Organisms: ESBL Date of last positivie culture/infection: 04/15/21 MDRO Source:: ESBL URINE Past Surgical History: Cholecystectomy, Coronary Bypass/CABG, Heart Catheterization With Stent Additional Past Surgical History / Comment(s): PCI/stents in 2009 and 2014, 2016 CABG 3 vessel then sternal debridement for infection/removal of hardware, colonoscopy, bilateral cataract removals. Past Anesthesia/Blood Transfusion Reactions: No Reported Reaction Additional Past Anesthesia/Blood Transfusion Reaction / Comment(s): Claustrophobic Date of Last Stent Placement:: 2014 Past Psychological History: No Psychological Hx Reported Additional Psychological History / Comment(s): Pt's daughter lives with her. Pt states she uses no assistive device. She has a nebulizer and home oxygen which she uses prn. She no longer drives, her mague takes her to [employer]. Smoking Status: Former smoker Past Alcohol Use History: None Reported Additional Past Alcohol Use History / Comment(s): Pt started smoking in 1963 and quit in 2009 Past Drug Use History: None Reported - Past Family History Father Family Medical History: Coronary Artery Disease (CAD), Myocardial Infarction ([place]) Additional Family Medical History / Comment(s): STENT, OPEN HEART SURGERY Mother History Unknown: Yes Additional Family Medical History / Comment(s): DEPRESSION, mental illness Medications and Allergies Home Medications Medication Instructions Recorded Confirmed Type Atorvastatin [Lipitor] 80 mg PO HS 09/23/20 12/21/24 History Aspirin EC [Ecotrin Low Dose] 81 mg PO DAILY 12/12/21 12/21/24 History Clopidogrel Bisulfate [Plavix] 75 mg PO DAILY 12/12/21 12/21/24 History traMADol HCL 50 mg PO BID 02/21/23 12/21/24 History Metoprolol Succinate [Toprol XL] 50 mg PO DAILY 11/02/23 12/21/24 History Omeprazole [PriLOSEC] 20 mg PO AC-BID 11/02/23 12/21/24 History Budesonide-Formot 160-4.5 Mcg 2 puff INHALATION RT-BID 30 Days 11/05/23 12/21/24 Rx [Symbicort 160-4.5 Mcg Inhaler] #1 each Insulin Glargine,Hum.rec.anlog 80 units SQ HS 05/01/24 12/21/24 History [Lantus Solostar Pen] Dapagliflozin Propanediol [Farxiga] 10 mg PO DAILY #30 tab 05/21/24 12/21/24 Rx Valsartan [Diovan] 160 mg PO DAILY 30 Days #30 tab 05/21/24 12/21/24 Rx Albuterol Nebulized [Ventolin 2.5 mg INHALATION RT-TID 12/21/24 12/21/24 History Nebulized] Furosemide [Lasix] 20 mg PO DAILY 12/21/24 12/21/24 History Insulin Lispro [humaLOG Kwikpen] 20 units SQ AC-TID 12/21/24 12/21/24 History Spironolactone [Aldactone] 25 mg PO DAILY 12/21/24 12/21/24 History predniSONE [Deltasone] See Taper PO DAILY 12/21/24 12/21/24 History Allergies Allergy/AdvReac Type Severity Reaction Status Date / Time codeine AdvReac Nausea & Verified 12/21/24 11:26 Vomiting Physical Exam Vitals: Vital Signs Temp Pulse Pulse Resp BP Pulse Ox 12/22/24 14:05 98.3 F 67 20 138/67 97 12/22/24 12:53 60 12/22/24 12:43 61 12/22/24 09:28 70 12/22/24 08:26 72 95 12/22/24 07:04 97.9 F 74 24 169/83 95 12/22/24 04:22 70 12/22/24 04:12 72 12/22/24 00:28 97.6 F 65 22 125/50 95 12/21/24 23:20 68 12/21/24 23:10 68 12/21/24 22:57 24 12/21/24 20:19 77 20 12/21/24 20:08 74 20 12/21/24 19:52 97.7 F 62 28 H 127/60 99 12/21/24 17:11 67 12/21/24 16:58 65 12/21/24 16:34 141/74 Intake and Output 12/22/24 12/22/24 12/22/24 06:59 14:59 22:59 Intake Total 360 360 Output Total 2500 Balance -2139 360 Intake: Oral 360 360 Output: Urine 2500 Other: Voiding Method Incontinent # Voids 3 Weight 84.5 kg GENERAL EXAM: Alert, obese 74-year-old female, on 3 L nasal cannula, fairly comfortable in no apparent distress. HEAD: Normocephalic. EYES: Normal reaction of pupils, equal size. NOSE: Clear with pink turbinates. THROAT: No erythema or exudates. NECK: No masses, no JVD. CHEST: No chest wall deformity. LUNGS: Equal air entry with crackles in the bilateral bases. CVS: S1 and S2 normal with no audible murmur, regular rhythm. ABDOMEN: No hepatosplenomegaly, normal bowel sounds, no guarding or rigidity. SPINE: No scoliosis or deformity SKIN: No rashes CENTRAL NERVOUS SYSTEM: No focal deficits, tone is normal in all 4 extremities. EXTREMITIES: There is 1+ peripheral edema. No clubbing, no cyanosis. Peripheral pulses are intact. Results - Laboratory Findings CBC and BMP: 12/22/24 03:41 12/22/24 03:41 PT/INR, D-dimer PT 10.0 sec (10.0-12.5) 12/20/24 20:34 INR 0.9 (<1.2) 12/20/24 20:34 Abnormal lab findings: Abnormal Labs 12/20/24 12/20/24 12/20/24 20:34 20:34 20:34 WBC 11.24 H RBC 2.93 L Hgb 9.6 L Hct 30.0 L MCV 102.4 H MCH 32.8 H MCHC MPV 9.2 L Immature Gran # 0.11 H Neutrophils # 10.60 H Lymphocytes # 0.30 L Monocytes # Eosinophils # 0.00 L Basophils # APTT 18.4 L Sodium 132 L Potassium 5.3 H Carbon Dioxide 19 L Anion Gap BUN 50 H Creatinine 1.37 H Est GFR (CKD-EPI) BUN/Creatinine Ratio Glucose 570 H* POC Glucose (mg/dL) Hemoglobin A1c Troponin I Total Protein 6.2 L TSH Urine Protein Urine Glucose (UA) 12/20/24 12/20/24 12/20/24 20:34 21:42 21:43 WBC RBC Hgb Hct MCV MCH MCHC MPV Immature Gran # Neutrophils # Lymphocytes # Monocytes # Eosinophils # Basophils # APTT Sodium Potassium Carbon Dioxide Anion Gap BUN Creatinine Est GFR (CKD-EPI) BUN/Creatinine Ratio Glucose POC Glucose (mg/dL) >600 H* >600 H* 597 H* Hemoglobin A1c Troponin I Total Protein TSH Urine Protein Urine Glucose (UA) 12/20/24 12/20/24 12/21/24 22:33 23:42 05:24 WBC 11.67 H RBC 2.72 L Hgb 8.9 L Hct 28.3 L MCV 104.0 H MCH 32.7 H MCHC 31.4 L MPV 9.4 L Immature Gran # 0.07 H Neutrophils # 9.34 H Lymphocytes # Monocytes # Eosinophils # 0.01 L Basophils # APTT Sodium Potassium Carbon Dioxide Anion Gap BUN Creatinine Est GFR (CKD-EPI) BUN/Creatinine Ratio Glucose POC Glucose (mg/dL) 524 H* 449 H Hemoglobin A1c Troponin I Total Protein TSH Urine Protein Urine Glucose (UA) 12/21/24 12/21/24 12/21/24 05:24 05:24 12:19 WBC RBC Hgb Hct MCV MCH MCHC MPV Immature Gran # Neutrophils # Lymphocytes # Monocytes # Eosinophils # Basophils # APTT Sodium 135 L Potassium Carbon Dioxide Anion Gap BUN 50 H Creatinine 1.37 H Est GFR (CKD-EPI) BUN/Creatinine Ratio Glucose 278 H POC Glucose (mg/dL) 279 H Hemoglobin A1c Troponin I Total Protein 6.0 L TSH 0.111 L Urine Protein Urine Glucose (UA) 12/21/24 12/21/24 12/21/24 15:27 16:03 19:07 WBC RBC Hgb Hct MCV MCH MCHC MPV Immature Gran # Neutrophils # Lymphocytes # Monocytes # Eosinophils # Basophils # APTT Sodium Potassium Carbon Dioxide Anion Gap BUN Creatinine Est GFR (CKD-EPI) BUN/Creatinine Ratio Glucose POC Glucose (mg/dL) 297 H Hemoglobin A1c Troponin I 0.038 H* 0.046 H* Total Protein TSH Urine Protein Urine Glucose (UA) 12/21/24 12/22/24 12/22/24 20:02 03:41 03:41 WBC 13.02 H RBC 2.82 L Hgb 9.2 L Hct 29.8 L MCV 105.7 H MCH 32.6 H MCHC 30.9 L MPV Immature Gran # 0.12 H Neutrophils # 8.85 H Lymphocytes # Monocytes # 1.06 H Eosinophils # 0.45 H Basophils # 0.11 H APTT Sodium Potassium Carbon Dioxide Anion Gap BUN Creatinine Est GFR (CKD-EPI) BUN/Creatinine Ratio Glucose POC Glucose (mg/dL) 161 H Hemoglobin A1c 12.1 H Troponin I Total Protein TSH Urine Protein Urine Glucose (UA) 12/22/24 12/22/24 12/22/24 03:41 06:13 11:18 WBC RBC Hgb Hct MCV MCH MCHC MPV Immature Gran # Neutrophils # Lymphocytes # Monocytes # Eosinophils # Basophils # APTT Sodium Potassium Carbon Dioxide Anion Gap 13.50 H BUN 64.6 H Creatinine 1.7 H Est GFR (CKD-EPI) 31 L BUN/Creatinine Ratio 38.00 H Glucose 254 H POC Glucose (mg/dL) 236 H Hemoglobin A1c Troponin I Total Protein TSH Urine Protein Trace H Urine Glucose (UA) 4+ H 12/22/24 11:40 WBC RBC Hgb Hct MCV MCH MCHC MPV Immature Gran # Neutrophils # Lymphocytes # Monocytes # Eosinophils # Basophils # APTT Sodium Potassium Carbon Dioxide Anion Gap BUN Creatinine Est GFR (CKD-EPI) BUN/Creatinine Ratio Glucose POC Glucose (mg/dL) 262 H Hemoglobin A1c Troponin I Total Protein TSH Urine Protein Urine Glucose (UA) - Diagnostic Findings Chest x-ray: image reviewed Assessment and Plan Assessment: Acute on chronic hypoxemic respiratory failure secondary to an acute exacerbation of diastolic congestive heart failure Severe oxygen dependent chronic obstructive pulmonary disease with an FEV1 value of 54% of predicted History of severe obstructive sleep apnea with an AHI of 68 but intolerant to BiPAP Obesity Hypertension Hyperlipidemia Diabetes mellitus, type II Coronary disease with previous bypass surgery and previous stenting History of ESBL producing urinary tract infections Plan: The patient was seen and evaluated Imaging, labs and medications reviewed Maintained on IV diuretics Maintained on Aldactone Titrate the FiO2 as tolerated Currently on 3 L nasal cannula Does have home oxygen We will continue to follow and make further recommendations based on her clinical status I have personally seen and examined the patient, performed the documentation and the assessment and plan as written. Number of minutes spent on the visit: 20 Dictation was produced using [employer] dictation software. Please excuse any grammatical, word or spelling errors. Time with Patient: Greater than 30
[2024-12-22 16:39] LABS: Glucose,Whole Blood 163 mg/dL (70-110)
[2024-12-22 20:03] LABS: Glucose,Whole Blood 291 mg/dL (70-110)
--- NOTE | 2024-12-22 20:28 | P.PN ---
Subjective This is a pleasant 74 years old female with past medical history of CHF and oxygen 3 L at home Presents because of chest pain and dyspnea of 1 day duration. And dyspnea was been a problem for 2 days associated with little cough but has chest pain also of 1 day duration about 5/10 central nonradiating felt like sharp improved with giving her more oxygen with no precipitating factors like coughing or deep breath. She has also some headache and dizziness for about a week She has some burning in her urine a few days ago but no dysuria or urgency. No specific GI symptoms. No weakness or numbness patient states that she has chronic hip problem but her doctor thinks she is too old to operate on She takes insulin at home but she does not know the dose. She uses insulin with the help of her daughter. She is mildly tachypneic saturating 96% on 3 L oxygen She has mild leukocytosis at 11.6, hemoglobin 8.9, creatinine 1.3 with baseline 1.1-1.5. Glucose elevated more than 600 currently 499. Acetone is negative. proBNP is elevated 3110. EKG sinus rhythm with first-degree AV block and rate [address]-T changes but there is interventricular conduction delay. QTc 437. Chest x-ray showed cardiomegaly with pulmonary vascular congestion Echocardiogram pending. Was admitted with cardiac consult and IV Lasix 12/22 Patient still tachypneic sitting in chair with some talking difficulty although she does not need to stop in the middle No chest pain She is on 3 L oxygen which is close to her baseline No much of Expiratory wheezing. More of the crepitation. Lasix was discontinued by industrial psychology professor, creatinine went up 1.3 up to 1.7 which is slightly above level. She is also on metoprolol 50 mg and losartan 50 mg we will lower it temporarily to 25 mg. We consulted pulmonary for further evaluation. Patient also have leukocytosis at 13,000 however no fever. Active Medications Generic Name Dose Route Start Last Admin Trade Name Freq PRN Reason Stop Dose Admin Acetaminophen 325 mg 12/21/24 11:17 12/21/24 16:36 Acetaminophen Tab 325 Mg Tab PO 325 mg Q6HR PRN Administration Fever and/ or Mild Pain Albuterol Sulfate 2.5 mg 12/21/24 00:00 12/22/24 20:22 Albuterol Nebulized 2.5 Mg/3 Ml INHALATION 2.5 mg RT-Q4H KAREN Administration Aspirin 81 mg 12/21/24 11:30 12/22/24 08:34 Aspirin 81 Mg PO 81 mg DAILY KAREN Administration Atorvastatin Calcium 80 mg 12/21/24 21:00 12/21/24 21:53 Atorvastatin 80 Mg Tab PO 80 mg HS [facility], [facility]1983 Administration Dapagliflozin 10 mg 12/21/24 17:15 12/22/24 08:34 Dapagliflozin Propanediol 10 Mg Tablet PO 10 mg DAILY KAREN Administration Dextrose/Water 25 ml 12/21/24 11:16 Dextrose 50% Syringe 50 Ml IVP PER PROTOCOL PRN Hypoglycemia Protocol Dextrose/Water 50 ml 12/21/24 11:16 Dextrose 50% Syringe 50 Ml IVP PER PROTOCOL PRN Hypoglycemia Protocol Famotidine 20 mg 12/22/24 21:00 Famotidine 20 Mg Tab PO HS [facility], [facility] Heparin Sodium (Porcine) 5,000 unit 12/21/24 21:00 12/22/24 08:34 Heparin Sodium,Porcine 5,000 Unit/Ml 1 Ml Vial SQ 5,000 unit Q12HR KAREN Administration Insulin Glargine 28 unit 12/23/24 07:00 Insulin Glargine (Lantus) 100 Unit/Ml Syr SQ DAILY@0700 [facility], [facility]1983 Insulin Human Lispro 0 unit 12/21/24 12:30 12/22/24 17:33 Insulin Lispro (Humalog) 100 Unit/Ml 10 Ml Vl SQ 1 unit ACHS [facility], [facility]1983 Administration Protocol Losartan Potassium 25 mg 12/23/24 09:00 Losartan 25 Mg Tab PO DAILY [facility] Metoprolol Succinate 50 mg 12/21/24 17:15 12/22/24 08:34 Metoprolol Succinate (Er) 50 Mg Tab.Er.24h PO 50 mg DAILY [facility] Administration Morphine Sulfate 4 mg 12/20/24 22:40 12/21/24 10:52 Morphine Sulfate 4 Mg/Ml Syringe IV 4 mg Q4HR PRN Administration Severe Pain (Scale 7 to 10) Naloxone HCl 0.2 mg 12/20/24 22:40 Naloxone 0.4 Mg/Ml 1 Ml Vial IV Q2M PRN Opioid Reversal Ondansetron HCl 4 mg 12/20/24 22:40 Ondansetron 4 Mg/2 Ml Vial IVP Q8HR PRN Nausea And Vomiting Pantoprazole Sodium 40 mg 12/23/24 07:30 Pantoprazole 40 Mg Tablet PO AC-BRKFST KARNE Spironolactone 25 mg 12/21/24 17:15 12/22/24 08:34 Spironolactone 25 Mg Tab PO 25 mg DAILY KAREN Administration Objective - Vital Signs Vital signs: Vital Signs Temp 97.9 F 12/22/24 07:04 Pulse 60 12/22/24 12:53 Resp 24 12/22/24 07:04 BP 169/83 12/22/24 07:04 Pulse Ox 95 12/22/24 08:26 FiO2 Intake & Output 12/21/24 12/22/24 12/22/24 18:59 06:59 18:59 Intake Total 360 360 Output Total 2500 Balance -2140 360 Weight 87.6 kg 84.5 kg Intake: Oral 360 360 Output: Urine 2500 Other: Voiding Method Bedside Commode Incontinent External Catheter # Voids 2 3 - Exam GENERAL: The patient is alert and oriented x3, not in any acute distress. Well developed, well nourished. HEENT: Pupils are round and equally reacting to light. EOMI. No scleral icterus. No conjunctival pallor. Normocephalic, atraumatic. No pharyngeal erythema. No thyromegaly. CARDIOVASCULAR: S1 and S2 present. No murmurs, rubs, or gallops. -PULMONARY: Chest is clear to auscultation, no wheezing , bilateral basal crackles. On nasal cannula, tachypneic ABDOMEN: Soft, nontender, nondistended, normoactive bowel sounds. No palpable organomegaly. MUSCULOSKELETAL: No joint swelling or deformity. -EXTREMITIES: No cyanosis, clubbing, . bilateral pitting leg edema NEUROLOGICAL: Gross neurological examination did not reveal any focal deficits. SKIN: No rashes. no petechiae. - Labs CBC & Chem 7: 12/22/24 03:41 12/22/24 03:41 Labs: Abnormal Lab Results - Last 24 Hours (Table) 12/21/24 12/21/24 12/21/24 Range/Units 05:24 15:27 16:03 WBC (4.50-10.00) X 10*3/uL RBC (4.10-5.20) X 10*6/uL Hgb (12.0-15.0) g/dL Hct (37.2-46.3) % MCV (80.0-97.0) FL MCH (27.0-32.0) pg MCHC (32.0-37.0) g/dL Immature Gran # (0.00-0.04) X 10*3/uL Neutrophils # (1.80-7.70) X 10*3/uL Monocytes # (0.20-1.00) X 10*3/uL Eosinophils # (0.04-0.35) X 10*3/uL Basophils # (0.00-0.10) X 10*3/uL Anion Gap (4.00-12.00) mmol/L BUN (9.0-27.0) mg/dL Creatinine (0.6-1.5) mg/dL Est GFR (CKD-EPI) (>=60) BUN/Creatinine Ratio (12.00-20.00) Ratio Glucose (70-110) mg/dL POC Glucose (mg/dL) 297 H (70-110) mg/dL Hemoglobin A1c (<=6.0) % Troponin I 0.038 H* (0.000-0.034) ng/mL TSH 0.111 L (0.465-4.680) mIU/L Urine Protein (Negative) Urine Glucose (UA) (Negative) 12/21/24 12/21/24 12/22/24 Range/Units 19:07 20:02 03:41 WBC (4.50-10.00) X 10*3/uL RBC (4.10-5.20) X 10*6/uL Hgb (12.0-15.0) g/dL Hct (37.2-46.3) % MCV (80.0-97.0) FL MCH (27.0-32.0) pg MCHC (32.0-37.0) g/dL Immature Gran # (0.00-0.04) X 10*3/uL Neutrophils # (1.80-7.70) X 10*3/uL Monocytes # (0.20-1.00) X 10*3/uL Eosinophils # (0.04-0.35) X 10*3/uL Basophils # (0.00-0.10) X 10*3/uL Anion Gap (4.00-12.00) mmol/L BUN (9.0-27.0) mg/dL Creatinine (0.6-1.5) mg/dL Est GFR (CKD-EPI) (>=60) BUN/Creatinine Ratio (12.00-20.00) Ratio Glucose (70-110) mg/dL POC Glucose (mg/dL) 161 H (70-110) mg/dL Hemoglobin A1c 12.1 H (<=6.0) % Troponin I 0.046 H* (0.000-0.034) ng/mL TSH (0.465-4.680) mIU/L Urine Protein (Negative) Urine Glucose (UA) (Negative) 12/22/24 12/22/24 12/22/24 Range/Units 03:41 03:41 06:13 WBC 13.02 H (4.50-10.00) X 10*3/uL RBC 2.82 L (4.10-5.20) X 10*6/uL Hgb 9.2 L (12.0-15.0) g/dL Hct 29.8 L (37.2-46.3) % MCV 105.7 H (80.0-97.0) FL MCH 32.6 H (27.0-32.0) pg MCHC 30.9 L (32.0-37.0) g/dL Immature Gran # 0.12 H (0.00-0.04) X 10*3/uL Neutrophils # 8.85 H (1.80-7.70) X 10*3/uL Monocytes # 1.06 H (0.20-1.00) X 10*3/uL Eosinophils # 0.45 H (0.04-0.35) X 10*3/uL Basophils # 0.11 H (0.00-0.10) X 10*3/uL Anion Gap 13.50 H (4.00-12.00) mmol/L BUN 64.6 H (9.0-27.0) mg/dL Creatinine 1.7 H (0.6-1.5) mg/dL Est GFR (CKD-EPI) 31 L (>=60) BUN/Creatinine Ratio 38.00 H (12.00-20.00) Ratio Glucose 254 H (70-110) mg/dL POC Glucose (mg/dL) 236 H (70-110) mg/dL Hemoglobin A1c (<=6.0) % Troponin I (0.000-0.034) ng/mL TSH (0.465-4.680) mIU/L Urine Protein (Negative) Urine Glucose (UA) (Negative) 12/22/24 12/22/24 Range/Units 11:18 11:40 WBC (4.50-10.00) X 10*3/uL RBC (4.10-5.20) X 10*6/uL Hgb (12.0-15.0) g/dL Hct (37.2-46.3) % MCV (80.0-97.0) FL MCH (27.0-32.0) pg MCHC (32.0-37.0) g/dL Immature Gran # (0.00-0.04) X 10*3/uL Neutrophils # (1.80-7.70) X 10*3/uL Monocytes # (0.20-1.00) X 10*3/uL Eosinophils # (0.04-0.35) X 10*3/uL Basophils # (0.00-0.10) X 10*3/uL Anion Gap (4.00-12.00) mmol/L BUN (9.0-27.0) mg/dL Creatinine (0.6-1.5) mg/dL Est GFR (CKD-EPI) (>=60) BUN/Creatinine Ratio (12.00-20.00) Ratio Glucose (70-110) mg/dL POC Glucose (mg/dL) 262 H (70-110) mg/dL Hemoglobin A1c (<=6.0) % Troponin I (0.000-0.034) ng/mL TSH (0.465-4.680) mIU/L Urine Protein Trace H (Negative) Urine Glucose (UA) 4+ H (Negative) Assessment and Plan Assessment: Acute CHF exacerbation, unknown ejection fraction Chest pain rule out acute coronary syndrome Diabetes mellitus with hyperglycemia Chronic hypoxic respiratory failure CKD stage III Dementia Coronary artery disease COPD with no acute exacerbation History of CVA/TIA Hypertension Hyperlipidemia Plan: IV Lasix was held Cardiology consult Monitor creatinine closely, consider nephrology consult if further worsening Continue with aspirin Follow-up echocardiogram Pulmonary consult Increased Lantus to 28 units and sliding scale ((Start her on L Lantus and verify home dose. Asked patient to bring home medication from daughter and she agrees documented she takes Lantus 80 units but patient does not think she takes that splint will start with 20 units, however increase as above)) Monitor creatinine and electrolytes Labs and medication were reviewed.. Continue same treatment. Continue with symptomatic treatment. Resume home medication. Monitor labs and vitals. DVT and GI prophylaxis. Further recommendations as per clinical course of the patient DVT prophylaxis: Subcutaneous heparin GI Prophylaxis: Pepcid PT/OT: ELVIS Prognosis is guarded
[2024-12-22] MEDS: FAMOTIDINE 20 MG TAB PO SCH (20:44)
[2024-12-23 06:10] LABS: Glucose,Whole Blood 218 mg/dL (70-110)
[2024-12-23] MEDS: INSULIN GLARGINE (LANTUS) 100 UNIT/ML SYR SQ SCH (06:47)
[2024-12-23] MEDS ORDERED: INSULIN GLARGINE (LANTUS) 100 UNIT/ML SYR SQ SCH (07:00)
[2024-12-23] MEDS: LOSARTAN 25 MG TAB PO SCH (08:39)
[2024-12-23] MEDS: PANTOPRAZOLE 40 MG TABLET PO SCH (08:39)
[2024-12-23 09:05] LABS: INR 0.95 sec (0.93-1.11); Prothrombin Time 10.9 sec (9.9-11.9)
--- NOTE | 2024-12-23 09:56 | P.PN ---
Subjective This is a pleasant 74 years old female with past medical history of CHF and oxygen 3 L at home Presents because of chest pain and dyspnea of 1 day duration. And dyspnea was been a problem for 2 days associated with little cough but has chest pain also of 1 day duration about 5/10 central nonradiating felt like sharp improved with giving her more oxygen with no precipitating factors like coughing or deep breath. She has also some headache and dizziness for about a week She has some burning in her urine a few days ago but no dysuria or urgency. No specific GI symptoms. No weakness or numbness patient states that she has chronic hip problem but her doctor thinks she is too old to operate on She takes insulin at home but she does not know the dose. She uses insulin with the help of her daughter. She is mildly tachypneic saturating 96% on 3 L oxygen She has mild leukocytosis at 11.6, hemoglobin 8.9, creatinine 1.3 with baseline 1.1-1.5. Glucose elevated more than 600 currently 499. Acetone is negative. proBNP is elevated 3110. EKG sinus rhythm with first-degree AV block and rate [address]-T changes but there is interventricular conduction delay. QTc 437. Chest x-ray showed cardiomegaly with pulmonary vascular congestion Echocardiogram pending. Was admitted with cardiac consult and IV Lasix 12/22 Patient still tachypneic sitting in chair with some talking difficulty although she does not need to stop in the middle No chest pain She is on 3 L oxygen which is close to her baseline No much of Expiratory wheezing. More of the crepitation. Lasix was discontinued by it specialist, creatinine went up 1.3 up to 1.7 which is slightly above level. She is also on metoprolol 50 mg and losartan 50 mg we will lower it temporarily to 25 mg. We consulted pulmonary for further evaluation. Patient also have leukocytosis at 13,000 however no fever. 12/23 Patient although she feels better but she still tachypneic She still has wheezing and basilar crepitation She still has 2+ leg edema She is on 3 L oxygen which is close to her baseline Blood pressure slightly elevated more than usual today We will check BMP today which is pending Patient remains off diuretic for now which is held because of high creatinine ye sterday per cardiology team. Insulin dose increased, keep monitoring glucose Active Medications Generic Name Dose Route Start Last Admin Trade Name Freq PRN Reason Stop Dose Admin Acetaminophen 325 mg 12/21/24 11:17 12/23/24 06:23 Acetaminophen Tab 325 Mg Tab PO 325 mg Q6HR PRN Administration Fever and/ or Mild Pain Albuterol Sulfate 2.5 mg 12/21/24 00:00 12/23/24 07:46 Albuterol Nebulized 2.5 Mg/3 Ml INHALATION 2.5 mg RT-Q4H KAREN Administration Aspirin 81 mg 12/21/24 11:30 12/23/24 08:39 Aspirin 81 Mg PO 81 mg DAILY KAREN Administration Atorvastatin Calcium 80 mg 12/21/24 21:00 12/22/24 20:44 Atorvastatin 80 Mg Tab PO 80 mg HS KAREN Administration Dapagliflozin 10 mg 12/21/24 17:15 12/23/24 08:39 Dapagliflozin Propanediol 10 Mg Tablet PO 10 mg DAILY KAREN Administration Dextrose/Water 25 ml 12/21/24 11:16 Dextrose 50% Syringe 50 Ml IVP PER PROTOCOL PRN Hypoglycemia Protocol Dextrose/Water 50 ml 12/21/24 11:16 Dextrose 50% Syringe 50 Ml IVP PER PROTOCOL PRN Hypoglycemia Protocol Famotidine 20 mg 12/22/24 21:00 12/22/24 20:44 Famotidine 20 Mg Tab PO 20 mg HS KAREN Administration Heparin Sodium (Porcine) 5,000 unit 12/21/24 21:00 12/23/24 08:38 Heparin Sodium,Porcine 5,000 Unit/Ml 1 Ml Vial SQ 5,000 unit Q12HR KAREN Administration Insulin Glargine 28 unit 12/23/24 07:00 12/23/24 06:47 Insulin Glargine (Lantus) 100 Unit/Ml Syr SQ 28 unit DAILY@0700 KAREN Administration Insulin Human Lispro 0 unit 12/21/24 12:30 12/23/24 06:22 Insulin Lispro (Humalog) 100 Unit/Ml 10 Ml Vl SQ 2 unit ACHS KAREN Administration Protocol Losartan Potassium 25 mg 12/23/24 09:00 12/23/24 08:39 Losartan 25 Mg Tab PO 25 mg DAILY KAREN Administration Metoprolol Succinate 50 mg 12/21/24 17:15 12/23/24 08:39 Metoprolol Succinate (Er) 50 Mg Tab.Er.24h PO 50 mg DAILY KAREN Administration Morphine Sulfate 4 mg 12/20/24 22:40 12/21/24 10:52 Morphine Sulfate 4 Mg/Ml Syringe IV 4 mg Q4HR PRN Administration Severe Pain (Scale 7 to 10) Naloxone HCl 0.2 mg 12/20/24 22:40 Naloxone 0.4 Mg/Ml 1 Ml Vial IV Q2M PRN Opioid Reversal Ondansetron HCl 4 mg 12/20/24 22:40 Ondansetron 4 Mg/2 Ml Vial IVP Q8HR PRN Nausea And Vomiting Pantoprazole Sodium 40 mg 12/23/24 07:30 12/23/24 08:39 Pantoprazole 40 Mg Tablet PO 40 mg AC-BRKFST KAREN Administration Spironolactone 25 mg 12/21/24 17:15 12/23/24 08:39 Spironolactone 25 Mg Tab PO 25 mg DAILY KAREN Administration Objective - Vital Signs Vital signs: Vital Signs Temp 97.6 F 12/23/24 07:44 Pulse 61 12/23/24 07:56 Resp 17 12/23/24 07:44 BP 180/78 12/23/24 07:44 Pulse Ox 100 12/23/24 07:48 FiO2 Intake & Output 12/22/24 12/23/24 12/23/24 18:59 06:59 18:59 Intake Total 600 1080 Output Total 750 1200 300 Balance -150 -120 -300 Weight 84 kg Intake: Oral 600 1080 Output: Urine 750 1200 300 Other: Voiding Method Incontinent Toilet # Voids 3 # Bowel Movements 1 - Exam GENERAL: The patient is alert and oriented x3, not in any acute distress. Well developed, well nourished. HEENT: Pupils are round and equally reacting to light. EOMI. No scleral icterus. No conjunctival pallor. Normocephalic, atraumatic. No pharyngeal erythema. No thyromegaly. CARDIOVASCULAR: S1 and S2 present. No murmurs, rubs, or gallops. -PULMONARY: Chest is clear to auscultation, no wheezing , bilateral basal crackles. On nasal cannula, tachypneic ABDOMEN: Soft, nontender, nondistended, normoactive bowel sounds. No palpable organomegaly. MUSCULOSKELETAL: No joint swelling or deformity. -EXTREMITIES: No cyanosis, clubbing, . bilateral pitting leg edema NEUROLOGICAL: Gross neurological examination did not reveal any focal deficits. SKIN: No rashes. no petechiae. - Labs CBC & Chem 7: 12/22/24 03:41 12/22/24 03:41 Labs: Abnormal Lab Results - Last 24 Hours (Table) 12/22/24 12/22/24 12/22/24 Range/Units 11:18 11:40 16:37 POC Glucose (mg/dL) 262 H 163 H (70-110) mg/dL Urine Protein Trace H (Negative) Urine Glucose (UA) 4+ H (Negative) 12/22/24 12/23/24 Range/Units 20:02 06:08 POC Glucose (mg/dL) 291 H 218 H (70-110) mg/dL Urine Protein (Negative) Urine Glucose (UA) (Negative) Assessment and Plan Assessment: Acute CHF exacerbation, unknown ejection fraction Chest pain rule out acute coronary syndrome Diabetes mellitus with hyperglycemia Chronic hypoxic respiratory failure CKD stage III Dementia Coronary artery disease COPD with no acute exacerbation History of CVA/TIA Hypertension Hyperlipidemia Plan: IV Lasix was held per Cardiology consult Monitor creatinine closely, consider nephrology consult if further worsening Continue with aspirin Follow-up echocardiogram Pulmonary consult Increased Lantus to 28 units and sliding scale ((Start her on L Lantus and verify home dose. Asked patient to bring home medication from daughter and she agrees documented she takes Lantus 80 units but patient does not think she takes that splint will start with 20 units, however increase as above)) Monitor creatinine and electrolytes Labs and medication were reviewed.. Continue same treatment. Continue with symptomatic treatment. Resume home medication. Monitor labs and vitals. DVT and GI prophylaxis. Further recommendations as per clinical course of the patient DVT prophylaxis: Subcutaneous heparin GI Prophylaxis: Pepcid PT/OT: ELVIS Prognosis is guarded
[2024-12-23 11:24] LABS: African American GFR (CKD) 40 (>60 ml/min/1.73 sqM); Anion Gap 9 mmol/L; Blood Urea Nitrogen 55 mg/dL (7-17); Calcium 9.5 mg/dL (8.4-10.2); Carbon Dioxide 28 mmol/L (22-30); Chloride 103 mmol/L (98-107); Glucose 360 mg/dL (74-99); Non-African American GFR(CKD) 35 (>60 ml/min/1.73 sqM); Potassium 4.4 mmol/L (3.5-5.1); Sodium 140 mmol/L (137-145)
[2024-12-23 11:37] LABS: Glucose,Whole Blood 329 mg/dL (70-110)
--- NOTE | 2024-12-23 12:10 | P.PN ---
Subjective Progress Note Date: 12/23/24 This is an obese 74-year-old female with a history of chronic obstructive pulmonary disease on home oxygen, coronary artery disease with previous coronary artery bypass surgery and previous stent placement, congestive heart failure, CVA/TIA, dementia, diabetes mellitus, hypertension, hyperlipidemia, former smoker, obstructive sleep apnea intolerant to CPAP. She presented here to the emergency room 12/20/2024 with complaints of increasing shortness of breath recently treated with steroids and then having elevated blood sugars. Initial glucose 570. Chest x-ray shows cardiomegaly, pulmonary vascular congestion and bilateral pleural effusions. White count 13.0. Hemoglobin 9.2. Platelets 342. Sodium 140. Potassium 5.0. Bicarb 23. BUN 65. Creatinine 1.7. Glucose 254. BNP 3110. EKG reveals sinus rhythm with first-degree AV block. Left bundle branch block. She is seen today in consultation on the regular medical floor. She is currently sitting up in a chair at the bedside. Awake and alert in no acute distress. Maintaining O2 saturations in the 90s on 3 L/min per nasal cannula. She has been afebrile. Hemodynamically stable. The patient is seen today December 23, 2024 in follow-up on the regular medical floor. She is currently resting comfortably in bed. Awake and alert in no acute distress. Maintaining good O2 saturations in the 90s on 3 L/min per nasal cannula. Feeling a bit better today. Currently in a -270 mL balance. Sodium 140. Potassium 4.4. Bicarb 28. BUN 55. Creatinine 1.47. INR 0.95. Glucose 218. Calcium 9.5. She remains on heparin for DVT prophylaxis. Remains on oral diuretics. Objective - Vital Signs Vital signs: Vital Signs Temp 97.6 F 12/23/24 07:44 Pulse 63 12/23/24 11:17 Resp 17 12/23/24 07:44 BP 180/78 12/23/24 07:44 Pulse Ox 100 12/23/24 07:48 FiO2 Intake & Output 12/22/24 12/23/24 12/23/24 18:59 06:59 18:59 Intake Total 600 1080 Output Total 750 1200 900 Balance -150 -120 -900 Weight 84 kg Intake: Oral 600 1080 Output: Urine 750 1200 900 Other: Voiding Method Incontinent Toilet # Voids 3 # Bowel Movements 1 - Exam GENERAL EXAM: Alert, obese 74-year-old female, resting in bed, on 3 L nasal cannula, comfortable in no apparent distress. HEAD: Normocephalic. EYES: Normal reaction of pupils, equal size. NOSE: Clear with pink turbinates. THROAT: No erythema or exudates. NECK: No masses, no JVD. CHEST: No chest wall deformity. LUNGS: Equal air entry with crackles in the bilateral bases. CVS: S1 and S2 normal with no audible murmur, regular rhythm. ABDOMEN: No hepatosplenomegaly, normal bowel sounds, no guarding or rigidity. SPINE: No scoliosis or deformity SKIN: No rashes CENTRAL NERVOUS SYSTEM: No focal deficits, tone is normal in all 4 extremities. EXTREMITIES: There is 1+ peripheral edema. No clubbing, no cyanosis. Periphera l pulses are intact. - Labs CBC & Chem 7: 12/22/24 03:41 12/23/24 10:49 Labs: Abnormal Lab Results - Last 24 Hours (Table) 12/22/24 12/22/24 12/23/24 Range/Units 16:37 20:02 06:08 BUN (7-17) mg/dL Creatinine (0.52-1.04) mg/dL Glucose (74-99) mg/dL POC Glucose (mg/dL) 163 H 291 H 218 H (70-110) mg/dL 12/23/24 12/23/24 Range/Units 10:49 11:35 BUN 55 H (7-17) mg/dL Creatinine 1.47 H (0.52-1.04) mg/dL Glucose 360 H (74-99) mg/dL POC Glucose (mg/dL) 329 H (70-110) mg/dL Assessment and Plan Assessment: Acute on chronic hypoxemic respiratory failure secondary to an acute exacerbation of diastolic congestive heart failure Severe oxygen dependent chronic obstructive pulmonary disease with an FEV1 value of 54% of predicted Severe obstructive sleep apnea with an AHI of 68 but intolerant to BiPAP Obesity Hypertension Hyperlipidemia Diabetes mellitus, type II Coronary disease with previous bypass surgery and previous stenting History of ESBL producing urinary tract infections Plan: The patient was seen and evaluated Labs and medications reviewed Maintained on Aldactone Titrate the FiO2 as tolerated Currently on 3 L nasal cannula Does have home oxygen Plan is for home with home care at discharge I have personally seen and examined the patient, performed the documentation and the assessment and plan as written. Number of minutes spent on the visit: 10 Dictation was produced using [employer] dictation software. Please excuse any grammatical, word or spelling errors.
--- NOTE | 2024-12-23 13:03 | CA ---
Transthoracic Echo Report Name: Nancy Shah Age: 74 Gender: F : 1950 Exam Date: 12/23/2024 08:48 Exam Location: [facility] Ht (in): 62 Wt (lb): 170 Ordering Physician: Prince Orona DO Attending/Referring Phys: [id number], Yeyo Rapier Insertion Loom Fixer Iván Sweeney, KHANH Procedure CPT: Indications: Heart failure Cardiac Hx: Technical Quality: Fair Contrast 1: Definity Total Dose (mL): 2 Contrast 2: Total Dose (mL): MEASUREMENTS (Male / Female) Normal Values 2D ECHO LV Diastolic Diameter PLAX 5.3 cm 4.2 - 5.9 / 3.9 - 5.3 cm LV Systolic Diameter PLAX 2.9 cm IVS Diastolic Thickness 1.1 cm 0.6 - 1.0 / 0.6 - 0.9 cm LVPW Diastolic Thickness 1.3 cm 0.6 - 1.0 / 0.6 - 0.9 cm LV Relative Wall Thickness 0.5 RV Internal Dim ED PLAX 2.4 cm LVOT Diameter 1.8 cm LA Volume 80.4 cm??? 18 - 58 / 22 - 52 cm??? LA Volume Index 43.1 cm???/m??? 16 - 28 cm???/m??? DOPPLER MV Peak Velocity 189.4 cm/s MV Peak Gradient 14.3 mmHg MV Mean Velocity 125.6 cm/s MV Mean Gradient 6.9 mmHg MV Velocity Time Integral 67.4 cm MV Area PHT 1.8 cm??? Mitral E Point Velocity 156.1 cm/s Mitral A Point Velocity 151.1 cm/s Mitral E to A Ratio 1.0 MV Deceleration Time 397.0 ms TR Peak Velocity 232.9 cm/s TR Peak Gradient 21.7 mmHg Right Atrial Pressure 5.0 mmHg Pulmonary Artery Systolic Pressu 26.7 mmHg Right Ventricular Systolic Press 26.7 mmHg FINDINGS Left Ventricle Left ventricular ejection fraction is estimated at 55-60%. Moderately increased posterior wall thickness. Segmoid septum. No obvious regional wall motion abnormalities. Right Ventricle Moderate right ventricular dilatation. Right ventricular systolic pressure within normal limits. Right Atrium Normal right atrial size. Left Atrium Severely increased left atrial volume. Mitral Valve Mitral valve thickened. Mitral annular calcification. Moderate mitral stenosis. Trace to mild mitral regurgitation. Aortic Valve Trileaflet aortic valve. Aortic valve sclerosis. No aortic valve stenosis or regurgitation. Tricuspid Valve Structurally normal tricuspid valve. No tricuspid stenosis. Trace to mild tricuspid regurgitation. Pulmonic Valve Structurally normal pulmonic valve. No pulmonic stenosis. Trace pulmonic regurgitation. Pericardium No pericardial effusion. Aorta Normal size aortic root and proximal ascending aorta. CONCLUSIONS Left ventricular ejection fraction 55 to 60% Moderately increased left ventricular thickness Severely dilated left atrium Severe mitral annular calcification Moderate mitral stenosis with mean gradient 6 mmHg with a heart rate 65 Mild mitral regurgitation Trace to mild tricuspid regurgitation Previewed by: Dr. Frank Driscoll DO (Electronically Signed) Final Date: 23 December 2024 13:02
[2024-12-23 13:31] VITALS: BMI 33.8
--- NOTE | 2024-12-23 14:42 | P.PN ---
Subjective Progress Note Date: 12/23/24 HPI: The patient is a 74-year-old female with a history of CHF and chronic hypoxia on 3 liters of oxygen, COPD, ischemic cardiomyopathy with an EF of 45%, coronary artery disease, hypertension, dyslipidemia, type 2 diabetes, obesity, and prior CVA. She presented with generalized weakness, dizziness, and chest heaviness that began 1-2 days ago. She describes the chest pressure as central, sharp, and non-radiating. She also reports lightheadedness, dizziness, headache, and burning sensation with increased frequency of urination. Patient is a poor historian. On admission she was noted to be hyperglycemia with respiratory distress with tachypnea and hypoxia and congestive heart failure exacerbation for which cardiology was consulted. Pertinent Vitals: Admission BP 142/70 mmHg, HR 175 BPM Pertinent cardiac Labs: Hb 8.9, WBC 11.6, Na 135, BUN 50, Stadium Manager 1.37, Glucose 450, Trop 0.038 Cardiac home meds: Lasix 20 mg, Metoprolol 50 mg daily, Aspirin 81 mg, Lipitor 80 mg, Farxiga 10 mg, Aldactone 25 mg, Valsartan 160 mg Pertinent cardiac testing: - EKG from this admission shows sinus rhythm with right axis deviation with incomplete left bundle branch block - Chest x-ray shows bilateral pulmonary congestion/stable fluid overload Prior cardiac testing - Echo: 10/2023: EF 45%, poor quality study with limited views - Heart Cath: 2017: Cx disease with collaterals, moderate to severe in LAD, liane re in 1st OM, recommended CABG - CABG from 2017: 3 vessel CABG with WELCH to LAD, SVG to PDA, SVG to OM 12/22 [facility] Patient has no complaints of cough no fever or chills. She denies dysuria. She complains of feeling weak. She has noted to have occasional cough. She states she did have some chest pain yesterday but none today. Her respiratory rate is up today and she is on her home O2 at 3 L. Blood pressure 169/83, heart rate 70s, pulse ox 95% on 3 L. Patient is having hallucinations stating that she saw black flying bugs in her room and also mice on the window. We have asked for a urinalysis to be obtained patient has been maintained on IV Lasix 40 mg every 12 hours. Echocardiogram is pending. Repeat blood work reveals WBC 13, hemoglobin 9.2, BUN 64 creatinine 1.7. Repeat troponins 0.038 and 0.046. 12/23 Patient seen and examined. Patient denies having chest pain no shortness of breath and no palpitations. Echocardiogram reviewed with the patient. Echocardiogram revealed EF 55 to 60%, severe mitral annular calcification with moderate mitral stenosis and mild mitral regurgitation, trace to mild tricuspid regurgitation. PHYSICAL EXAMINATION: Neck: Brisk carotid upstroke, no jugular venous distention. Lungs: Clear to auscultation. Heart: Regular rate and rhythm, S1-S2, no murmur or rub. Abdomen: Soft nontender, positive bowel sounds. Extremities: No edema, intact distal pulses. Neuro: Awake and alert. ASSESSMENT: # Acute on chronic HFrEF exacerbation # Ischemic cardiomyopathy # History of CAD, status post CABG in 2017 # Type 2 diabetes, currently poorly controlled with hyperglycemia # COPD with chronic hypoxia # Obesity, dyslipidemia, essential hypertension Acute kidney injury Hallucinations NSTEMI type II Dementia Chronic hypoxic respiratory failure on home O2 at 3 L Moderate mitral stenosis PLAN: Resume patient's home dose of oral Lasix Continue aspirin 81, Lipitor 80, Farxiga 10, Aldactone 25, losartan 50, m etoprolol XL 50 mg daily Obtain updated echocardiogram No plan for any further cardiac workup at this time. Cardiology will sign off this case and follow on an as-needed basis. Please reconsult for any new concerns. Patient may follow-up in the office in one to 2 weeks. Nurse practitioner note has been reviewed, I agree with documented findings and plan of care. Patient was seen and examined. Objective - Vital Signs Vital signs: Vital Signs Temp 97.6 F 12/23/24 07:44 Pulse 63 12/23/24 11:17 Resp 17 12/23/24 07:44 BP 180/78 12/23/24 07:44 Pulse Ox 100 12/23/24 07:48 FiO2 Intake & Output 12/22/24 12/23/24 12/23/24 18:59 06:59 18:59 Intake Total 600 1080 Output Total 750 1200 1400 Balance -150 -120 -1400 Weight 84 kg 84 kg Intake: Oral 600 1080 Output: Urine 750 1200 1400 Other: Voiding Method Incontinent Toilet # Voids 3 # Bowel Movements 1 - Labs CBC & Chem 7: 12/22/24 03:41 12/23/24 10:49 Labs: Abnormal Lab Results - Last 24 Hours (Table) 12/22/24 12/22/24 12/23/24 Range/Units 16:37 20:02 06:08 BUN (7-17) mg/dL Creatinine (0.52-1.04) mg/dL Glucose (74-99) mg/dL POC Glucose (mg/dL) 163 H 291 H 218 H (70-110) mg/dL 12/23/24 12/23/24 Range/Units 10:49 11:35 BUN 55 H (7-17) mg/dL Creatinine 1.47 H (0.52-1.04) mg/dL Glucose 360 H (74-99) mg/dL POC Glucose (mg/dL) 329 H (70-110) mg/dL
[2024-12-23 16:52] LABS: Glucose,Whole Blood 190 mg/dL (70-110)
[2024-12-23 21:02] LABS: Glucose,Whole Blood 330 mg/dL (70-110)
[2024-12-23 22:43] LABS: Glucose,Whole Blood 283 mg/dL (70-110)
[2024-12-24 06:20] LABS: Glucose,Whole Blood 229 mg/dL (70-110)
--- NOTE | 2024-12-24 07:24 | XR ---
EXAMINATION TYPE: XR chest 1V portable DATE OF EXAM: 12/24/2024 6:35 AM COMPARISON: 12/20/2024 CLINICAL INDICATION: Female, 74 years old with history of CHF, TECHNIQUE: XR chest 1V portable views of the chest are obtained. FINDINGS: Demonstrated are scattered senescent parenchymal change. Pulmonary venous congestion and scattered infiltrates have improved considerably. There is mild persi stent cardiomegaly and trace effusions. Hilar and mediastinal structures are within normal limits. Degenerative changes are seen of the dorsal spine. IMPRESSION: 1. Pulmonary venous congestion and scattered infiltrates have improved considerably. There is mild p ersistent cardiomegaly and trace effusions. [facility], , 12/24/2024 7:21 AM
[2024-12-24 08:17] LABS: Basophils # (A) 0.08 X 10*3/uL (0.00-0.10); Basophils % (A) 0.6 %; Eosinophils # (A) 0.56 X 10*3/uL (0.04-0.35); Eosinophils % (A) 4.3 %; HGB 9.6 g/dL (12.0-15.0); Lymphocytes # (A) 2.16 X 10*3/uL (0.90-5.00); Lymphocytes % (A) 16.6 %; MCH 32.2 pg (27.0-32.0); Mean Platelet Volume 10.1 FL (9.5-12.2); Monocytes # (A) 1.06 X 10*3/uL (0.20-1.00); Monocytes % (A) 8.2 %; NRBC Per 100 WBC 0 X 10*3/uL (0.00-0.01); Neutrophils % (A) 69.4 %; Platelet Count 364 X 10*3/uL (140-440); RBC 2.98 X 10*6/uL (4.10-5.20); RDW 13.5 % (11.5-14.5); WBC 12.98 X 10*3/uL (4.50-10.00)
[2024-12-24 08:22] VITALS: RESP 16
[2024-12-24] MEDS: FUROSEMIDE 20 MG TAB PO SCH (08:35)
[2024-12-24] MEDS: LOSARTAN 50 MG TAB PO SCH (08:35)
[2024-12-24 08:51] LABS: BUN/Creat Ratio 37.77 Ratio (12.00-20.00); Blood Urea Nitrogen 49.1 mg/dL (9.0-27.0); Calcium 8.8 mg/dL (8.7-10.3); Carbon Dioxide 21.6 mmol/L (21.6-31.8); Chloride 107 mmol/L (96-109); Glucose 225 mg/dL (70-110); Potassium 4.5 mmol/L (3.5-5.5); Sodium 141 mmol/L (135-145)
[2024-12-24 11:50] LABS: Glucose,Whole Blood 215 mg/dL (70-110)
--- NOTE | 2024-12-24 12:18 | P.PN ---
Subjective Progress Note Date: 12/24/24 This is an obese 74-year-old female with a history of chronic obstructive pulmonary disease on home oxygen, coronary artery disease with previous coronary artery bypass surgery and previous stent placement, congestive heart failure, CVA/TIA, dementia, diabetes mellitus, hypertension, hyperlipidemia, former smoker, obstructive sleep apnea intolerant to CPAP. She presented here to the emergency room 12/20/2024 with complaints of increasing shortness of breath recently treated with steroids and then having elevated blood sugars. Initial glucose 570. Chest x-ray shows cardiomegaly, pulmonary vascular congestion and bilateral pleural effusions. White count 13.0. Hemoglobin 9.2. Platelets 342. Sodium 140. Potassium 5.0. Bicarb 23. BUN 65. Creatinine 1.7. Glucose 254. BNP 3110. EKG reveals sinus rhythm with first-degree AV block. Left bundle branch block. She is seen today in consultation on the regular medical floor. She is currently sitting up in a chair at the bedside. Awake and alert in no acute distress. Maintaining O2 saturations in the 90s on 3 L/min per nasal cannula. She has been afebrile. Hemodynamically stable. The patient is seen today December 23, 2024 in follow-up on the regular medical floor. She is currently resting comfortably in bed. Awake and alert in no acute distress. Maintaining good O2 saturations in the 90s on 3 L/min per nasal cannula. Feeling a bit better today. Currently in a -270 mL balance. Sodium 140. Potassium 4.4. Bicarb 28. BUN 55. Creatinine 1.47. INR 0.95. Glucose 218. Calcium 9.5. She remains on heparin for DVT prophylaxis. Remains on oral diuretics. The patient is seen today December 24, 2024 in follow-up on the regular medical floor. She is awake and alert in no acute distress. Maintaining O2 saturation in the 90s on 3 L/min per nasal cannula. Today's chest x-ray shows significant improvement in the pulmonary vascular congestion. White count 12.9. Hemoglobin 9.6. Platelets 364. Sodium 141. Potassium 4.5. Bicarb 22. BUN 49. Creatinine 1.3. Glucose 225. She has been transitioned to oral diuretics. Remains on bronchodilators. Heparin for DVT prophylaxis. Currently in a -2.4 L balance. Objective - Vital Signs Vital signs: Vital Signs Temp 98.1 F 12/24/24 07:32 Pulse 63 12/24/24 11:59 Resp 16 12/24/24 07:32 BP 137/53 12/24/24 07:32 Pulse Ox 100 12/24/24 07:46 FiO2 Intake & Output 12/23/24 12/24/24 12/24/24 18:59 06:59 18:59 Intake Total 1080 Output Total 1400 2150 Balance -1400 -1070 Weight 84 kg 82.2 kg Intake: Oral 1080 Output: Urine 1400 2150 Other: # Voids 4 # Bowel Movements 1 - Exam GENERAL EXAM: Alert, obese 74-year-old female, on 3 L nasal cannula, comfortable in no apparent distress. HEAD: Normocephalic. EYES: Normal reaction of pupils, equal size. NOSE: Clear with pink turbinates. THROAT: No erythema or exudates. NECK: No masses, no JVD. CHEST: No chest wall deformity. LUNGS: Equal air entry with crackles in the bilateral bases. CVS: S1 and S2 normal with no audible murmur, regular rhythm. ABDOMEN: No hepatosplenomegaly, normal bowel sounds, no guarding or rigidity. SPINE: No scoliosis or deformity SKIN: No rashes CENTRAL NERVOUS SYSTEM: No focal deficits, tone is normal in all 4 extremities. EXTREMITIES: There is 1+ peripheral edema. No clubbing, no cyanosis. Peripheral pulses are intact. - Labs CBC & Chem 7: 12/24/24 05:10 12/24/24 05:10 Labs: Abnormal Lab Results - Last 24 Hours (Table) 12/23/24 12/23/24 12/23/24 Range/Units 16:50 21:01 22:42 WBC (4.50-10.00) X 10*3/uL RBC (4.10-5.20) X 10*6/uL Hgb (12.0-15.0) g/dL Hct (37.2-46.3) % MCV (80.0-97.0) FL MCH (27.0-32.0) pg MCHC (32.0-37.0) g/dL Immature Gran # (0.00-0.04) X 10*3/uL Neutrophils # (1.80-7.70) X 10*3/uL Monocytes # (0.20-1.00) X 10*3/uL Eosinophils # (0.04-0.35) X 10*3/uL Anion Gap (4.00-12.00) mmol/L BUN (9.0-27.0) mg/dL Est GFR (CKD-EPI) (>=60) BUN/Creatinine Ratio (12.00-20.00) Ratio Glucose (70-110) mg/dL POC Glucose (mg/dL) 190 H 330 H 283 H (70-110) mg/dL 12/24/24 12/24/24 12/24/24 Range/Units 05:10 05:10 06:18 WBC 12.98 H (4.50-10.00) X 10*3/uL RBC 2.98 L (4.10-5.20) X 10*6/uL Hgb 9.6 L (12.0-15.0) g/dL Hct 31.0 L (37.2-46.3) % MCV 104.0 H (80.0-97.0) FL MCH 32.2 H (27.0-32.0) pg MCHC 31.0 L (32.0-37.0) g/dL Immature Gran # 0.12 H (0.00-0.04) X 10*3/uL Neutrophils # 9.00 H (1.80-7.70) X 10*3/uL Monocytes # 1.06 H (0.20-1.00) X 10*3/uL Eosinophils # 0.56 H (0.04-0.35) X 10*3/uL Anion Gap 12.40 H (4.00-12.00) mmol/L BUN 49.1 H (9.0-27.0) mg/dL Est GFR (CKD-EPI) 43 L (>=60) BUN/Creatinine Ratio 37.77 H (12.00-20.00) Ratio Glucose 225 H (70-110) mg/dL POC Glucose (mg/dL) 229 H (70-110) mg/dL 12/24/24 Range/Units 11:48 WBC (4.50-10.00) X 10*3/uL RBC (4.10-5.20) X 10*6/uL Hgb (12.0-15.0) g/dL Hct (37.2-46.3) % MCV (80.0-97.0) FL MCH (27.0-32.0) pg MCHC (32.0-37.0) g/dL Immature Gran # (0.00-0.04) X 10*3/uL Neutrophils # (1.80-7.70) X 10*3/uL Monocytes # (0.20-1.00) X 10*3/uL Eosinophils # (0.04-0.35) X 10*3/uL Anion Gap (4.00-12.00) mmol/L BUN (9.0-27.0) mg/dL Est GFR (CKD-EPI) (>=60) BUN/Creatinine Ratio (12.00-20.00) Ratio Glucose (70-110) mg/dL POC Glucose (mg/dL) 215 H (70-110) mg/dL Assessment and Plan Assessment: Acute on chronic hypoxemic respiratory failure secondary to an acute exacerbat ion of diastolic congestive heart failure Severe oxygen dependent chronic obstructive pulmonary disease with an FEV1 value of 54% of predicted Severe obstructive sleep apnea with an AHI of 68 but intolerant to BiPAP Obesity Hypertension Hyperlipidemia Diabetes mellitus, type II Coronary disease with previous bypass surgery and previous stenting History of ESBL producing urinary tract infections Plan: The patient was seen and evaluated Chest x-ray, labs and medications reviewed Significant improvement in the pulmonary vascular congestion Maintained on Lasix and Aldactone Remains in a negative balance Currently on 3 L nasal cannula Does have home oxygen Home once cleared by cardiology Plan is for home with home care at discharge I have personally seen and examined the patient, performed the documentation and the assessment and plan as written. Number of minutes spent on the visit: 10 Dictation was produced using [employer] dictation software. Please excuse any grammatical, word or spelling errors.
[2024-12-24 14:35] VITALS: BP 115/69; PULSE 60; TEMP 97.4
--- NOTE | 2024-12-24 22:51 | P.DS ---
Providers Date of admission: 12/20/24 22:40 Attending physician: Irwin Arredondo Consults: 12/20/24 22:40 Consult Physician Routine Consulting Provider: Ishaan Sarabia Consult Reason/Comments: chf Do you want consulting provider notified?: Yes 12/22/24 10:17 Consult Physician Routine Consulting Provider: Saba Preston Consult Reason/Comments: sob Do you want consulting provider notified?: Yes Primary care physician: Elvira Gonzales Hospital Course: Diagnoses: Acute CHF exacerbation, unknown ejection fraction Chest pain rule out acute coronary syndrome Diabetes mellitus with hyperglycemia Chronic hypoxic respiratory failure CKD stage III Dementia Coronary artery disease COPD with no acute exacerbation History of CVA/TIA Hypertension Hyperlipidemia Hospital course: This is a pleasant 74 years old female with past medical history of CHF and oxygen 3 L at home Presents because of chest pain and dyspnea of 1 day duration. And dyspnea was been a problem for 2 days associated with little cough but has chest pain also of 1 day duration about 5/10 central Patient was evaluated by rn internship and pulmonology service patient was found to have acute CHF exacerbation with preserved ejection fraction and she was treated with IV Lasix and dyspnea improved and she made good urine output about 2 to 4 L over her length of stay in the hospital. Patent feels improved and she agrees to go home. Patient denies any other new complaints Patient was cleared for discharge by both cardiology pulmonary service. Cardiology service actually sign of the case yesterday Patient states she has oxygen at home Problems and management plan were discussed with the patient and he verbalized understanding and acceptance Patient was found stable and can be discharged home in guarded prognosis however he needs follow-up as an outpatient. Patient was instructed to follow up with PCP Dr. Gonzales within one week and patient agrees Patient was instructed to follow-up with insurance and benefits clerk Dr. Howard in 2 weeks and rn internship Dr. Driscoll in 1 week and she agrees. Staff will help her with appointments Physical exam Gen: patient is a AAOx3, no distress CVS: S1-S2, RRR, no murmur Lungs: B/L CTA, no wheezing. Oxygen via nasal cannula Abdomen: soft, no distention, no tenderness, positive bowel sounds Extremity: no leg edema or induration Time spent more than 35 minutes Patient Condition at Discharge: Serious Plan - Discharge Summary New Discharge Prescriptions: Continue RX: Atorvastatin [Lipitor] 80 mg PO HS RX: Clopidogrel Bisulfate [Plavix] 75 mg PO DAILY RX: Aspirin EC [Ecotrin Low Dose] 81 mg PO DAILY RX: traMADol HCL 50 mg PO BID RX: Metoprolol Succinate [Toprol XL] 50 mg PO DAILY RX: Insulin Glargine,Hum.rec.anlog [Lantus Solostar Pen] 80 units SQ HS RX: Valsartan [Diovan] 160 mg PO DAILY 30 Days #30 tab RX: Insulin Lispro [humaLOG Kwikpen] 20 units SQ AC-TID RX: Albuterol Nebulized [Ventolin Nebulized] 2.5 mg INHALATION RT-TID RX: predniSONE [Deltasone] See Taper PO DAILY RX: Furosemide [Lasix] 20 mg PO DAILY RX: Omeprazole [PriLOSEC] 20 mg PO AC-BID RX: Budesonide-Formot 160-4.5 Mcg [Symbicort 160-4.5 Mcg Inhaler] 2 puff INHALATION RT-BID 30 Days #1 each RX: Dapagliflozin Propanediol [Farxiga] 10 mg PO DAILY #30 tab RX: Spironolactone [Aldactone] 25 mg PO DAILY Discharge Medication List RX: Atorvastatin [Lipitor] 80 mg PO HS 09/23/20 [History] RX: Aspirin EC [Ecotrin Low Dose] 81 mg PO DAILY 12/12/21 [History] RX: Clopidogrel Bisulfate [Plavix] 75 mg PO DAILY 12/12/21 [History] RX: traMADol HCL 50 mg PO BID 02/21/23 [History] RX: Metoprolol Succinate [Toprol XL] 50 mg PO DAILY 11/02/23 [History] RX: Omeprazole [PriLOSEC] 20 mg PO AC-BID 11/02/23 [History] RX: Budesonide-Formot 160-4.5 Mcg [Symbicort 160-4.5 Mcg Inhaler] 2 puff INHALATION RT-BID 30 Days #1 each 11/05/23 [Rx] RX: Insulin Glargine,Hum.rec.anlog [Lantus Solostar Pen] 80 units SQ HS 05/01/24 [History] RX: Dapagliflozin Propanediol [Farxiga] 10 mg PO DAILY #30 tab 05/21/24 [Rx] RX: Valsartan [Diovan] 160 mg PO DAILY 30 Days #30 tab 05/21/24 [Rx] RX: Albuterol Nebulized [Ventolin Nebulized] 2.5 mg INHALATION RT-TID 12/21/24 [History] RX: Furosemide [Lasix] 20 mg PO DAILY 12/21/24 [History] RX: Insulin Lispro [humaLOG Kwikpen] 20 units SQ AC-TID 12/21/24 [History] RX: Spironolactone [Aldactone] 25 mg PO DAILY 12/21/24 [History] RX: predniSONE [Deltasone] See Taper PO DAILY 12/21/24 [History] Follow up Appointment(s)/Referral(s): Saba Preston MD [STAFF PHYSICIAN] - 01/08/25 8:30 am Elvira Gonzales MD [Primary Care Provider] - 12/29/24 5:00 pm Frank Driscoll DO [STAFF PHYSICIAN] - 1 Week (Please ccall office didnt answer) [facility], [NON-STAFF] - As Needed ([facility] will call you to schedule your in home nursing, physical therapy, and occupational therapy visits. ) Patient Instructions/Handouts: COPD (Chronic Obstructive Pulmonary Disease) (DC), Diabetic Hyperglycemia (DC) Activity/Diet/Wound Care/Special Instructions: Heart healthy diet Activity is restricted till you see your doctor Recommend to check your glucose 4 times a day before each meal and at bedtime, keep the results in a log book and bring it to your doctor on your appointment date If your glucose less than 70 or more than 400 then come to the hospital Discharge Disposition: HOME WITH HOME HEALTH SERVICES
== END 2024-12-24 15:15 | disposition home health service (06) | DRG 280 ==
LOC: EC 20:16 → 4SSUR 22:40
PROVIDERS: ADMIT Hospitalist; ATTEND Hospitalist
DX: I13.0 Hypertensive heart and chronic kidney disease with heart failure and stage 1 through stage 4 chronic kidney disease, or unspecified chronic kidney disease (principal); I50.33 Acute on chronic diastolic (congestive) heart failure; I21.A1 Myocardial infarction type 2; J96.21 Acute and chronic respiratory failure with hypoxia; E86.0 Dehydration; F03.92 Unspecified dementia, unspecified severity, with psychotic disturbance; D72.829 Elevated white blood cell count, unspecified; E11.22 Type 2 diabetes mellitus with diabetic chronic kidney disease; J44.89 Other specified chronic obstructive pulmonary disease; N18.30 Chronic kidney disease, stage 3 unspecified; E66.9 Obesity, unspecified; I05.0 Rheumatic mitral stenosis; N17.9 Acute kidney failure, unspecified; E11.40 Type 2 diabetes mellitus with diabetic neuropathy, unspecified; E11.65 Type 2 diabetes mellitus with hyperglycemia; Z79.4 Long term (current) use of insulin; Z95.1 Presence of aortocoronary bypass graft; Z99.81 Dependence on supplemental oxygen; I25.5 Ischemic cardiomyopathy; I44.0 Atrioventricular block, first degree; I44.7 Left bundle-branch block, unspecified; I05.8 Other rheumatic mitral valve diseases; I25.10 Atherosclerotic heart disease of native coronary artery without angina pectoris; I25.2 Old myocardial infarction; G47.33 Obstructive sleep apnea (adult) (pediatric); Z79.84 Long term (current) use of oral hypoglycemic drugs; E78.5 Hyperlipidemia, unspecified; F40.240 Claustrophobia; Z79.02 Long term (current) use of antithrombotics/antiplatelets; Z79.51 Long term (current) use of inhaled steroids; Z79.82 Long term (current) use of aspirin; Z79.899 Other long term (current) drug therapy; Z86.19 Personal history of other infectious and parasitic diseases; Z86.73 Personal history of transient ischemic attack (TIA), and cerebral infarction without residual deficits; Z91.199 Patient's noncompliance with other medical treatment and regimen due to unspecified reason; Z87.891 Personal history of nicotine dependence; Z95.5 Presence of coronary angioplasty implant and graft; Z87.01 Personal history of pneumonia (recurrent); Z87.440 Personal history of urinary (tract) infections; Z79.1 Long term (current) use of non-steroidal anti-inflammatories (NSAID); Z88.5 Allergy status to narcotic agent
CPT/HCPCS: 36415; 71045; 71046; 80048; 80053; 80061; 81003; 82009; 83036; 83735; 83880; 84100; 84439; 84443; 84484; 85025; 85610; 85730; 93005; 93308; 94640; 94760; 96361; 96374; 96375; 99291

== ENCOUNTER 2025-01-05 20:15 | Inpatient (IN) | payer MEDICARE ==
--- NOTE | 2025-01-05 20:28 | ED ---
SOB HPI - General Chief Complaint: Shortness of Breath Stated Complaint: DONALD Time Seen by Provider: 01/05/25 20:15 Source: EMS, RN notes reviewed, old records reviewed Mode of arrival: EMS Limitations: no limitations - History of Present Illness Initial Comments: This is a 74-year-old female to the ER for evaluation today. Patient today presents for evaluation of shortness of breath family noted patient to have worsening shortness of breath dyspnea with ably was breathing harder than normal last night into today. Patient does have COPD CHF, family did call EMS secondary to patient's work of breathing. EMS found patient to have low oxygen levels apparently she has run out of her oxygen tanks at home. Patient herself denies any complaints MD Complaint: shortness of breath -: days(s) Severity: severe Severity scale (1-10): 9 Consistency: constant Improves With: nothing Worsens With: exertion Known History Of: COPD, asthma, congestive heart failure Context: recent URI, anxiety, recent illness Associated Symptoms: denies other symptoms - Related Data Home Medications Medication Instructions Recorded Confirmed Atorvastatin [Lipitor] 80 mg PO HS 09/23/20 01/06/25 Aspirin EC [Ecotrin Low Dose] 81 mg PO DAILY 12/12/21 01/06/25 Clopidogrel Bisulfate [Plavix] 75 mg PO DAILY 12/12/21 01/06/25 Metoprolol Succinate [Toprol XL] 50 mg PO DAILY 11/02/23 01/06/25 Omeprazole [PriLOSEC] 20 mg PO AC-BID 11/02/23 01/06/25 Insulin Glargine,Hum.rec.anlog 80 units SQ HS 05/01/24 01/06/25 [Lantus Solostar Pen] Albuterol Nebulized [Ventolin 2.5 mg INHALATION RT-TID PRN 12/21/24 01/06/25 Nebulized] Insulin Lispro [humaLOG Kwikpen] 20 units SQ AC-TID 12/21/24 01/06/25 Spironolactone [Aldactone] 25 mg PO DAILY 12/21/24 01/06/25 Previous Rx's Medication Instructions Recorded Budesonide-Formot 160-4.5 Mcg 2 puff INHALATION RT-BID 30 Days 11/05/23 [Symbicort 160-4.5 Mcg Inhaler] #1 each Acetaminophen Tab [Tylenol] 650 mg PO Q6HR PRN tab 01/09/25 Cholecalciferol [Vitamin D3 (25 25 mcg PO DAILY #30 tab 01/09/25 Mcg = 1000 Iu)] Dapagliflozin Propanediol [Farxiga] 10 mg PO DAILY #30 tab 01/09/25 Furosemide [Lasix] 40 mg PO DAILY #30 tab 01/09/25 Ipratropium-Albuterol Nebulize 3 ml INHALATION RT-QID each 01/09/25 [Duoneb 0.5 mg-3 mg/3 ml Soln] Losartan [Cozaar] 100 mg PO DAILY #60 tab 01/09/25 predniSONE See Taper PO DIRECTED #30 tab 01/09/25 Allergies Allergy/AdvReac Type Severity Reaction Status Date / Time codeine AdvReac Nausea & Verified 01/06/25 17:59 Vomiting Review of Systems ROS Statement: Those systems with pertinent positive or pertinent negative responses have been documented in the HPI. ROS Other: All systems not noted in ROS Statement are negative. 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, R caratid artery disease, valvular disease, pulmonary htn, bronchitis, home oxygen prn, poor vision/pt cannot recall reason, UTIs, rash/itching, WAS SEEN IN ER 12/2022 FOR N/V Last Myocardial Infarction Date:: 2014 History of Any Multi-Drug Resistant Organisms: ESBL Date of last positivie culture/infection: 04/15/21 MDRO Source:: ESBL URINE Past Surgical History: Cholecystectomy, Coronary Bypass/CABG, Heart Catheterization With Stent Additional Past Surgical History / Comment(s): PCI/stents in 2009 and 2014, 2017 CABG 3 vessel then sternal debridement for infection/removal of hardware, colonoscopy, bilateral cataract removals. Past Anesthesia/Blood Transfusion Reactions: No Reported Reaction Additional Past Anesthesia/Blood Transfusion Reaction / Comment(s): Claustrophobic Date of Last Stent Placement:: 2014 Past Psychological History: No Psychological Hx Reported Smoking Status: Former smoker Past Alcohol Use History: None Reported Past Drug Use History: None Reported - Past Family History Father Family Medical History: Coronary Artery Disease (CAD), Myocardial Infarction (MA) Additional Family Medical History / Comment(s): STENT, OPEN HEART SURGERY Mother History Unknown: Yes Additional Family Medical History / Comment(s): DEPRESSION, mental illness General Exam General appearance: alert, in no apparent distress Head exam: Present: atraumatic, normocephalic, normal inspection Eye exam: Present: normal appearance, PERRL, EOMI. Absent: scleral icterus, conjunctival injection, periorbital swelling ENT exam: Present: normal exam, mucous membranes moist Neck exam: Present: normal inspection. Absent: tenderness, meningismus, lymphadenopathy Respiratory exam: Present: normal lung sounds bilaterally. Absent: respiratory distress, wheezes, rales, rhonchi, stridor Cardiovascular Exam: Present: regular rate, normal rhythm, normal heart sounds. Absent: systolic murmur, diastolic murmur, rubs, gallop, clicks GI/Abdominal exam: Present: soft, normal bowel sounds. Absent: distended, tenderness, guarding, rebound, rigid Extremities exam: Present: normal inspection, full ROM, normal capillary refill. Absent: tenderness, pedal edema, joint swelling, calf tenderness Back exam: Present: normal inspection Neurological exam: Present: alert, oriented X3, CN II-XII intact Psychiatric exam: Present: normal affect, normal mood Skin exam: Present: warm, dry, intact, normal color. Absent: rash Course Vital Signs 01/05/25 01/05/25 01/05/25 20:16 21:30 21:50 Temperature 98.2 F Pulse Rate 62 67 67 Respiratory 18 Rate Blood Pressure 138/41 O2 Sat by Pulse 100 Oximetry 01/05/25 01/05/25 01/05/25 23:00 23:25 23:44 Temperature Pulse Rate 87 79 76 Respiratory 18 Rate Blood Pressure 128/52 O2 Sat by Pulse 98 Oximetry 01/06/25 01/06/25 01/06/25 02:41 02:51 06:14 Temperature Pulse Rate 96 93 94 Respiratory 18 Rate Blood Pressure 128/57 O2 Sat by Pulse 99 Oximetry 01/06/25 01/06/25 01/06/25 07:45 07:57 10:13 Temperature Pulse Rate 86 88 87 Respiratory 20 Rate Blood Pressure 129/58 O2 Sat by Pulse 92 L Oximetry 01/06/25 01/06/25 01/06/25 11:19 11:30 12:00 Temperature Pulse Rate 93 96 89 Respiratory 20 Rate Blood Pressure 133/65 O2 Sat by Pulse 99 Oximetry 01/06/25 01/06/25 01/06/25 13:00 16:20 16:33 Temperature Pulse Rate 89 82 84 Respiratory 20 Rate Blood Pressure 133/65 O2 Sat by Pulse 99 Oximetry 01/06/25 17:00 Temperature Pulse Rate 92 Respiratory 20 Rate Blood Pressure 132/74 O2 Sat by Pulse 97 Oximetry - Reevaluation(s) Reevaluation #1: 01/05/25 22:26 Medical records reviewed Reevaluation #2: 01/05/25 22:26 Patient's symptoms improved Reevaluation #3: 01/05/25 22:26 Patient informed of results and questions answered Reevaluation #4: Was pt. sent in by a medical professional or institution (, PA, CORDUROY CUTTER OPERATOR, urgent care, hospital, or shelter...) When possible be specific @ -no Did you speak to anyone other than the patient for history (EMS, parent, family, police, friend...)? What history was obtained from this source @ -no Did you review nursing and triage notes (agree or disagree)? Why? @ -agree Are old charts reviewed (outside hosp., previous admission, EMS record, old EKG, old radiological studies, urgent care reports/EKG's, shelter records)? Report findings @ -yes Differential Diagnosis (chest pain, altered mental status, abdominal pain women, abdominal pain men, vaginal bleeding, weakness, fever, dyspnea, syncope, headache, dizziness, GI bleed, back pain, seizure, CVA, palpatations, mental health, musculoskeletal)? @ -prior EKG interpreted by me (3pts min.). @ -yes X-rays interpreted by me (1pt min.). @ -yes significant CHF CT interpreted by me (1pt min.). @ -no U/S interpreted by me (1pt. min.). @ -no What testing was considered but not performed or refused? (CT, X-rays, U/S, labs)? Why? @ -none What meds were considered but not given or refused? Why? @ -none Did you discuss the management of the patient with other professionals (professionals i.e. , PA, CORDUROY CUTTER OPERATOR, lab, RT, psych nurse, social science research assistant, packerhead machine operator, teacher, identification officer, case finishing machine adjuster)? Give summary @ -no Was smoking cessation discussed for >3mins.? @ -no Was critical care preformed (if so, how long)? @ yes31 Were there social determinants of health that impacted care today? How? (Homelessness, low income, unemployed, alcoholism, drug addiction, transpor tation, low edu. Level, literacy, decrease access to med. care, group home, rehab)? @ -none Was there de-escalation of care discussed even if they declined (Discuss DNR or withdrawal of care, Hospice)? DNR status @ -no What co-morbidities impacted this encounter? (DM, HTN, Smoking, COPD, CAD, Cancer, CVA, ARF, Chemo, Hep., AIDS, mental health diagnosis, sleep apnea, morbid obesity)? @ -none Was patient admitted / discharged? Hospital course, mention meds given and route, prescriptions, significant lab abnormalities, going to OR and other pertinent info. @ - 74 female will be admitted for CHF COPD and hypoxia. Admitted Undiagnosed new problem with uncertain prognosis? @ -no Drug Therapy requiring intensive monitoring for toxicity (Heparin, Nitro, Insulin, Cardizem)? @ -no Were any procedures done? @ -no Diagnosis/symptom? @ -CHF COPD hypoxia Acute, or Chronic, or Acute on Chronic? @ -Acute Uncomplicated (without systemic symptoms) or Complicated (systemic symptoms)? @ -Complicated Side effects of treatment? @ -no Exacerbation, Progression, or Severe Exacerbation? @ -exacerbation Poses a threat to life or bodily function? How? (Chest pain, USA, MA, pneumonia, PE, COPD, DKA, ARF, appy, cholecystitis, CVA, Diverticulitis, Homicidal, Suicidal, threat to staff... and all critical care pts) @ -yes extremes of age Reevaluation #5: Differential Dyspnea: Coronary syndrome, arrhythmia, tamponade, asthma, COPD, pulmonary embolism, pneumonia, pneumothorax, pulmonary effusion, anaphylaxis, diabetic ketoacidosis, flailed chest, pulmonary contusion, diaphragmatic rupture, anemia, neuromuscular, this is not meant to be an all-inclusive list. - Consultations Consultation #1: Spoke with [facility] who agrees to admit this patient Medical Decision Making - Medical Decision Making 74 female will be admitted for CHF COPD and hypoxia. - Lab Data Result diagrams: 01/07/25 11:46 01/09/25 06:27 Lab Results 01/05/25 01/05/25 01/05/25 Range/Units 20:32 20:32 20:32 WBC 8.58 (4.50-10.00) 10*3/uL RBC 2.53 L (4.10-5.20) 10*6/uL Hgb 8.5 L (12.0-15.0) g/dL Hct 26.5 L (37.2-46.3) % MCV 104.7 H (80.0-97.0) fL MCH 33.6 H (27.0-32.0) pg MCHC 32.1 (32.0-37.0) g/dL Plt Count 318 (140-440) 10*3/uL MPV 9.3 L (9.5-12.2) fL Immature Gran % (Auto) 0.3 % Neutrophils % 74.7 % Lymphocytes % 13.9 % Monocytes % 6.8 % Eosinophils % 3.6 % Basophils % 0.7 % Immature Gran # 0.03 (0.00-0.04) 10*3/uL Neutrophils # 6.41 (1.80-7.70) 10*3/uL Lymphocytes # 1.19 (0.90-5.00) 10*3/uL Monocytes # 0.58 (0.20-1.00) 10*3/uL Eosinophils # 0.31 (0.04-0.35) 10*3/uL Basophils # 0.06 (0.00-0.10) 10*3/uL PT 10.4 (10.0-12.5) sec INR 0.9 (<1.2) APTT 22.2 (22.0-30.0) sec Sodium 140 (137-145) mmol/L Potassium 4.8 (3.5-5.1) mmol/L Chloride 110 H (98-107) mmol/L Carbon Dioxide 22 (22-30) mmol/L Anion Gap 8 mmol/L BUN 42 H (7-17) mg/dL Creatinine 1.34 H (0.52-1.04) mg/dL Est GFR (CKD-EPI)AfAm 45 (>60 ml/min/1.73 sqM) Est GFR (CKD-EPI)NonAf 39 (>60 ml/min/1.73 sqM) Glucose 238 H (74-99) mg/dL Plasma Lactic Acid Dennis (0.7-2.0) mmol/L Calcium 9.1 (8.4-10.2) mg/dL Magnesium 2.4 H (1.6-2.3) mg/dL Total Bilirubin 1.0 (0.2-1.3) mg/dL AST 21 (14-36) U/L ALT 17 (4-34) U/L Alkaline Phosphatase 59 (38-126) U/L Troponin I (0.000-0.034) ng/mL NT-Pro-B Natriuret Pep 1530 pg/mL Total Protein 6.0 L (6.3-8.2) g/dL Albumin 3.3 L (3.5-5.0) g/dL 01/05/25 01/05/25 Range/Units 20:32 20:32 WBC (4.50-10.00) 10*3/uL RBC (4.10-5.20) 10*6/uL Hgb (12.0-15.0) g/dL Hct (37.2-46.3) % MCV (80.0-97.0) fL MCH (27.0-32.0) pg MCHC (32.0-37.0) g/dL Plt Count (140-440) 10*3/uL MPV (9.5-12.2) fL Immature Gran % (Auto) % Neutrophils % % Lymphocytes % % Monocytes % % Eosinophils % % Basophils % % Immature Gran # (0.00-0.04) 10*3/uL Neutrophils # (1.80-7.70) 10*3/uL Lymphocytes # (0.90-5.00) 10*3/uL Monocytes # (0.20-1.00) 10*3/uL Eosinophils # (0.04-0.35) 10*3/uL Basophils # (0.00-0.10) 10*3/uL PT (10.0-12.5) sec INR (<1.2) APTT (22.0-30.0) sec Sodium (137-145) mmol/L Potassium (3.5-5.1) mmol/L Chloride (98-107) mmol/L Carbon Dioxide (22-30) mmol/L Anion Gap mmol/L BUN (7-17) mg/dL Creatinine (0.52-1.04) mg/dL Est GFR (CKD-EPI)AfAm (>60 ml/min/1.73 sqM) Est GFR (CKD-EPI)NonAf (>60 ml/min/1.73 sqM) Glucose (74-99) mg/dL Plasma Lactic Acid Dennis 1.0 (0.7-2.0) mmol/L Calcium (8.4-10.2) mg/dL Magnesium (1.6-2.3) mg/dL Total Bilirubin (0.2-1.3) mg/dL AST (14-36) U/L ALT (4-34) U/L Alkaline Phosphatase (38-126) U/L Troponin I 0.018 (0.000-0.034) ng/mL NT-Pro-B Natriuret Pep pg/mL Total Protein (6.3-8.2) g/dL Albumin (3.5-5.0) g/dL - EKG Data -: EKG Interpreted by Me (EKG is sinus 62 SC 249 QRS 137 QTc 447) - Radiology Data Radiology results: report reviewed (Chest x-ray is positive for CHF), image reviewed Critical Care Time Critical Care Time: Yes Total Critical Care Time: 31 Disposition Clinical Impression: COPD (chronic obstructive pulmonary disease), Acute respiratory failure, COPD exacerbation, Triple vessel coronary artery disease, Congestive heart failure, Hypoxia Disposition: ADMITTED IP TO THIS HOSP Condition: Serious Is patient prescribed a controlled substance at d/c from ED?: No Time of Disposition: 22:30
[2025-01-05] MEDS: SODIUM CHLORIDE 0.9% 1,000 ML IV SCH (20:41)
[2025-01-05] MEDS: methylPREDNISolone SOD SUCCI 125 MG/2 ML VIAL IV STA (20:41)
[2025-01-05 20:47] LABS: Basophils # (A) 0.06 10*3/uL (0.00-0.10); Basophils % (A) 0.7 %; Eosinophils # (A) 0.31 10*3/uL (0.04-0.35); Eosinophils % (A) 3.6 %; HCT 26.5 % (37.2-46.3); HGB 8.5 g/dL (12.0-15.0); Lymphocytes # (A) 1.19 10*3/uL (0.90-5.00); Lymphocytes % (A) 13.9 %; MCH 33.6 pg (27.0-32.0); MCHC 32.1 g/dL (32.0-37.0); MCV 104.7 fL (80.0-97.0); Mean Platelet Volume 9.3 fL (9.5-12.2); Monocytes # (A) 0.58 10*3/uL (0.20-1.00); Monocytes % (A) 6.8 %; Neutrophils # (A) 6.41 10*3/uL (1.80-7.70); Neutrophils % (A) 74.7 %; Platelet Count 318 10*3/uL (140-440); RBC 2.53 10*6/uL (4.10-5.20); RDW 14.1 % (11.5-14.5); WBC 8.58 10*3/uL (4.50-10.00)
[2025-01-05 20:53] LABS: INR 0.9 (<1.2); Partial Thromboplastin Time 22.2 sec (22.0-30.0); Prothrombin Time 10.4 sec (10.0-12.5)
--- NOTE | 2025-01-05 21:04 | XR ---
EXAMINATION TYPE: XR chest 1V portable DATE OF EXAM: 01/05/2025 8:46 PM COMPARISON: Chest radiographs from 12/24/2024. CLINICAL INDICATION: Female, 74 years old with history of sob; TECHNIQUE: XR chest 1V portable Frontal view of the chest. FINDINGS: Lungs/Pleura: No evidence of focal consolidation or pneumothorax. Blunting of the costophrenic angles is present. Pulmonary vascularity: Pulmonary vascular congestion. Heart/mediastinum: Cardiomediastinal silhouette is enlarged. Atherosclerotic calcifications are seen in the aorta. Musculoskeletal: No acute osseous pathology. Midline sternotomy wires are noted. Other findings: None IMPRESSION: Cardiomegaly, pulmonary vascular congestion and bilateral pleural effusions. Correlate with BNP for c ongestive heart failure. [facility], , 01/05/2025 9:02 PM
[2025-01-05 21:07] LABS: ALT 17 U/L (4-34); AST 21 U/L (14-36); African American GFR (CKD) 45 (>60 ml/min/1.73 sqM); Albumin 3.3 g/dL (3.5-5.0); Alkaline Phosphatase 59 U/L (38-126); Anion Gap 8 mmol/L; Blood Urea Nitrogen 42 mg/dL (7-17); Calcium 9.1 mg/dL (8.4-10.2); Carbon Dioxide 22 mmol/L (22-30); Chloride 110 mmol/L (98-107); Glucose 238 mg/dL (74-99); Magnesium 2.4 mg/dL (1.6-2.3); Non-African American GFR(CKD) 39 (>60 ml/min/1.73 sqM); Potassium 4.8 mmol/L (3.5-5.1); Sodium 140 mmol/L (137-145)
[2025-01-05 21:13] LABS: NT-Pro-B-Type Natriuretic Pept 1530 pg/mL
[2025-01-05] MEDS: IPRATROPIUM-ALBUTEROL 3 ML NEB INHALATION STA ×2 (21:30→23:25)
[2025-01-05] MEDS: FUROSEMIDE 10 MG/ML 4 ML VIAL IV SCH (23:02)
[2025-01-05] MEDS: ALBUTEROL NEBULIZED 2.5 MG/3 ML INHALATION STA (23:25)
--- NOTE | 2025-01-06 01:54 | P.CNPUL ---
History of Present Illness Consult date: 01/06/25 Requesting physician: Prince Orona Reason for consult: COPD Chief complaint: Shortness of breath History of present illness: Patient is a 74-year-old female with past medical history significant for COPD, LEO, obesity, diabetes mellitus, hypertension, hyperlipidemia, coronary artery disease with previous CABG, chronic kidney disease stage III. Her primary care provider is Dr. Elvira Gonzales. Has followed in the pulmonary office with Dr. Monique. She is known to have moderate COPD with an FEV1 54% of predicted. Also, severe obstructive sleep apnea with an AHI of 68, noncompliant with BiPAP. She does have home O2 available, used as needed. Of note, patient recently hospitalized December 22 through for a combination of acute COPD exacerbation and an exacerbation of diastolic heart failure. Did have an updated echocardiogram estimating a preserved left ventricular ejection fraction of 55 to 60%, as well as, moderate mitral stenosis and mild mitral regurgitation. She returns to the emergency department late last night with a chief complaint of progressively worsening shortness of breath over the last 24 to 48 hours. Workup in the ED including a chest x-ray showing cardiomegaly, pulmonary vascular congestion, and blunting of the costophrenic angles. NT proBNP elevated at 1530. CBC: WBC count 8.6, hemoglobin 8.5, platelets 318. CMP: Sodium 140, potassium 4.8, chloride 110, serum bicarb 22, BUN 42, creatinine 1.34, glucose 238. Lactic 1. LFTs unremarkable. Troponin 0.018 x 2. EKG: Sinus rhythm with first-degree AV block, rate 62 bpm, no acute ischemic changes. Patient currently being evaluated emergency department. She is on 2 L/min nasal cannula, SpO2 reading 100% on bedside monitor. Endorses progressively worsening shortness of breath over the last 1 to 2 days. Denies any chest pain, heart palpitations, orthopnea, PND, or increased lower extremity edema. Denies missing any doses of Lasix at home. States that her daughter and grandchildren were sick with a cold approximately 1 month ago. Endorses occasional cough with white sputum. No significant sputum purulence, hemoptysis, fever/chills. Denies nausea, vomiting, diarrhea. Given a loading dose of Solu-Medrol and multiple DuoNeb treatments in the ED. Also, started on Lasix 40 mg twice daily. She is producing urine and has an external Wall catheter in place. Current vital signs are stable. Review of Systems REVIEW OF SYSTEMS: CONSTITUTIONAL: Denies any recent significant weight loss or weight gain. EYES: Denies change in vision. EARS, NOSE, MOUTH, THROAT: Denies headaches, denies sore throat. CARDIOVASCULAR: Denies chest pain, palpitations or syncopal episodes. RESPIRATORY: See HPI GASTROINTESTINAL: Denies change in appetite, denies abdominal pain GENITOURINARY: Denies hematuria, denies infections. MUSKULOSKELETAL: Denies pain, denies swelling. INTEGUMENTARY: Denies rash, denies eczema. NEUROLOGICAL: Denies recent memory loss, no recent seizure activity. PSYCHIATRIC: Denies anxiety, denies depression. HEMATOLOGIC/LYMPHATIC: Denies anemia, denies enlarged lymph nodes. 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, R caratid artery disease, valvular disease, pulmonary htn, bronchitis, home oxygen prn, poor vision/pt cannot recall reason, UTIs, rash/itching, WAS SEEN IN ER 12/2022 FOR N/V Last Myocardial Infarction Date:: 2014 History of Any Multi-Drug Resistant Organisms: ESBL Date of last positivie culture/infection: 04/15/21 MDRO Source:: ESBL URINE Past Surgical History: Cholecystectomy, Coronary Bypass/CABG, Heart Catheterization With Stent Additional Past Surgical History / Comment(s): PCI/stents in 2009 and 2014, 2017 CABG 3 vessel then sternal debridement for infection/removal of hardware, colonoscopy, bilateral cataract removals. Past Anesthesia/Blood Transfusion Reactions: No Reported Reaction Additional Past Anesthesia/Blood Transfusion Reaction / Comment(s): Claustrophobic Date of Last Stent Placement:: 2014 Past Psychological History: No Psychological Hx Reported Smoking Status: Former smoker Past Alcohol Use History: None Reported Past Drug Use History: None Reported - Past Family History Father Family Medical History: Coronary Artery Disease (CAD), Myocardial Infarction ([place]) Additional Family Medical History / Comment(s): STENT, OPEN HEART SURGERY Mother History Unknown: Yes Additional Family Medical History / Comment(s): DEPRESSION, mental illness Medications and Allergies Home Medications Medication Instructions Recorded Confirmed Type Atorvastatin [Lipitor] 80 mg PO HS 09/23/20 01/06/25 History Aspirin EC [Ecotrin Low Dose] 81 mg PO DAILY 12/12/21 01/06/25 History Clopidogrel Bisulfate [Plavix] 75 mg PO DAILY 12/12/21 01/06/25 History Metoprolol Succinate [Toprol XL] 50 mg PO DAILY 11/02/23 01/06/25 History Omeprazole [PriLOSEC] 20 mg PO AC-BID 11/02/23 01/06/25 History Budesonide-Formot 160-4.5 Mcg 2 puff INHALATION RT-BID 30 Days 11/05/23 01/06/25 Rx [Symbicort 160-4.5 Mcg Inhaler] #1 each Insulin Glargine,Hum.rec.anlog 80 units SQ HS 05/01/24 01/06/25 History [Lantus Solostar Pen] Albuterol Nebulized [Ventolin 2.5 mg INHALATION RT-TID PRN 12/21/24 01/06/25 History Nebulized] Insulin Lispro [humaLOG Kwikpen] 20 units SQ AC-TID 12/21/24 01/06/25 History Spironolactone [Aldactone] 25 mg PO DAILY 12/21/24 01/06/25 History Allergies Allergy/AdvReac Type Severity Reaction Status Date / Time codeine AdvReac Nausea & Verified 01/06/25 07:23 Vomiting Physical Exam Vitals: Vital Signs Temp Pulse Resp BP Pulse Ox 01/05/25 23:44 76 01/05/25 23:25 79 01/05/25 23:00 87 18 128/52 98 01/05/25 21:50 67 01/05/25 21:30 67 01/05/25 20:16 98.2 F 62 18 138/41 100 Intake and Output 01/05/25 01/05/25 01/06/25 14:59 22:59 06:59 Other: Weight 81.647 kg GENERAL EXAM: Alert, 74-year-old white female, on 2 L/min nasal cannula, comfortable in no apparent distress. HEAD: Normocephalic and atraumatic EYES: Normal reaction of pupils, equal size. NOSE: Clear with pink turbinates. THROAT: No erythema or exudates. NECK: No masses, no JVD. CHEST: No chest wall deformity. LUNGS: Equal air entry with minimal expiratory wheezing heard over the anterior lung robert bilaterally. No conversational dyspnea or accessory muscle use.. CVS: S1 and S2 normal with no audible murmur, regular rhythm. No extra heart sounds ABDOMEN: No hepatosplenomegaly, active bowel sounds, no guarding or rigidity. SPINE: No scoliosis or deformity SKIN: No rashes CENTRAL NERVOUS SYSTEM: No focal deficits, tone is normal in all 4 extremities. EXTREMITIES: There is no peripheral edema, clubbing, or cyanosis. Peripheral pulses are intact. Results - Laboratory Findings CBC and BMP: 01/05/25 20:32 01/05/25 20:32 PT/INR, D-dimer PT 10.4 sec (10.0-12.5) 01/05/25 20:32 INR 0.9 (<1.2) 01/05/25 20:32 Abnormal lab findings: Abnormal Labs 01/05/25 01/05/25 20:32 20:32 RBC 2.53 L Hgb 8.5 L Hct 26.5 L MCV 104.7 H MCH 33.6 H MPV 9.3 L Chloride 110 H BUN 42 H Creatinine 1.34 H Glucose 238 H Magnesium 2.4 H Total Protein 6.0 L Albumin 3.3 L - Diagnostic Findings Chest x-ray: image reviewed Assessment and Plan Assessment: Suspect exacerbation of congestive heart failure with preserved ejection fraction Exacerbation of COPD Acute on chronic dyspnea, secondary to combination of above Moderate COPD, with an FEV1 54% of predicted Chronic hypoxemic respiratory failure, with 2-3 L supplemental oxygen available at home and worn as needed Severe obstructive sleep apnea with an AHI of 68, intolerant to BiPAP Obesity BMI 31.9 kg/m Hypertension History of hyperlipidemia Diabetes mellitus type II, insulin-dependent Coronary disease with previous bypass surgery and previous stenting Chronic kidney disease stage III Chronic anemia, hemoglobin 8.5 g/dL Plan: Currently on supplemental oxygen, 2 L/min, wean as tolerated Chest x-ray remarkable for cardiomegaly, pulmonary vascular congestion, and blunting of bilateral costophrenic angles. NT proBNP 1530 Most recent echocardiogram reviewed estimating preserved left ventricular ejection fraction of 55 to 60%, as well as, moderate mitral stenosis and mild mitral regurgitation. Continues on Lasix 40 mg twice daily Continue DuoNebs [id number], Symbicort inhaler, and IV Solu-Medrol Add insulin coverage Continue home medication including combination of valsartan, Aldactone, metoprolol, Farxiga Case to be reviewed with Dr. Monique, recommendations to follow I have personally seen and examined the patient, performed the documentation and the assessment and plan as written. Number of minutes spent on the visit:01/06/2025, the patient is being seen in joint evaluation along with the nurse practitioner. The patient is presenting with worsening shortness of breath. The patient has multiple number of medical problems and comorbidities. This evaluation was done more than 30 minutes The patient is currently suspected to be in CHF exacerbation. She may also have a component of COPD exacerbation. He is oxygen dependent between 2 and 3 L and the patient remains on 3 L of oxygen by nasal cannula. She also has valvular heart disease with moderate mitral stenosis. Her blood work shows a proBNP level of 1530. Troponins are negative. Electrolytes show a BUN of 42 with a creatinine 1.3 and a white cell count of 8.5. The patient is currently on Symbicort, DuoNeb, IV Solu-Medrol, IV Lasix was given and the patient is currently on oral Lasix 40 mg p.o. daily and Aldactone 25 mg p.o. daily. Urine output is adequate. No altered mentation. Will be seen by cardiology. Will continue to follow. Time with Patient: Greater than 30
[2025-01-06] MEDS ORDERED: DEXTROSE 50% SYRINGE 50 ML IVP PRN ×2 (01:59)
[2025-01-06] MEDS: ACETAMINOPHEN TAB 325 MG TAB PO STA (02:31)
[2025-01-06] MEDS: ALBUTEROL NEBULIZED 2.5 MG/3 ML INHALATION PRN (02:41)
[2025-01-06] MEDS: methylPREDNISolone SOD SUCCI 40 MG/ML 1 ML VIAL IV SCH (06:42)
[2025-01-06] MEDS: SYMBICORT 160-4.5 MCG INHALER INHALATION SCH (07:44)
[2025-01-06] MEDS: IPRATROPIUM-ALBUTEROL 3 ML NEB INHALATION SCH (07:44)
[2025-01-06] MEDS ORDERED: DAPAGLIFLOZIN PROPANEDIOL 10 MG TABLET PO SCH (09:00)
[2025-01-06] MEDS ORDERED: VALSARTAN 160 MG TAB PO SCH (09:00)
[2025-01-06 09:28] LABS: Glucose,Whole Blood 471 mg/dL (70-110)
[2025-01-06] MEDS: ASPIRIN 81 MG PO SCH (10:10)
[2025-01-06] MEDS: LOSARTAN 50 MG TAB PO SCH (10:11)
[2025-01-06] MEDS: DAPAGLIFLOZIN PROPANEDIOL 10 MG TABLET PO SCH (10:11)
[2025-01-06] MEDS: SPIRONOLACTONE 25 MG TAB PO SCH (10:11)
[2025-01-06] MEDS: FUROSEMIDE 40 MG TAB PO SCH (10:11)
[2025-01-06] MEDS: CLOPIDOGREL 75 MG TAB PO SCH (10:11)
[2025-01-06] MEDS: METOPROLOL SUCCINATE (ER) 50 MG TAB.ER.24H PO SCH (10:11)
[2025-01-06] MEDS: PANTOPRAZOLE 40 MG TABLET PO SCH (10:12)
[2025-01-06] MEDS: INSULIN LISPRO (HumaLOG) 100 UNIT/ML 10 mL VL SQ SCH ×2 (10:12→17:30)
--- NOTE | 2025-01-06 10:27 | P.CRDCN ---
History of Present Illness History of present illness: HPI: The patient is a 74-year-old female with a history of CHF and chronic hypoxia on 3 liters of oxygen, COPD, ischemic cardiomyopathy with an EF of 45%, coronary artery disease, hypertension, dyslipidemia, type 2 diabetes, obesity, and prior CVA. She previously followed in the office with Dr. Abdi but has not been there since October 2023. She was seen in the hospital last month. She presented to the hospital with symptoms of shortness of breath. She is seen and examined resting comfortably laying flat in bed in no acute distress. Chest x-ray reveals pulmonary vascular congestion and bilateral pleural effusions. Laboratory data reviewed, WBC 8.5, hemoglobin 8.5, platelets 318, sodium 140, potassium 4.8, creatinine 1.34, cardiac enzymes negative x 3 and NT proBNP 1530. Prior cardiac testing - Echo: 10/2023: EF 45%, poor quality study with limited views - Heart Cath: 2017: Cx disease with collaterals, moderate to severe in LAD, severe in 1st OM, recommended CABG - CABG from 2017: 3 vessel CABG with WELCH to LAD, SVG to PDA, SVG to OM REVIEW OF SYSTEMS: 14 point review of system is negative except what is mentioned above in HPI. PHYSICAL EXAMINATION: Neck: Brisk carotid upstroke, no jugular venous distention. Lungs: Clear to auscultation. Heart: Regular rate and rhythm, S1-S2, no murmur or rub. Abdomen: Soft nontender, positive bowel sounds. Extremities: No edema, intact distal pulses. Neuro: Alert, oriented, no focal deficits. Detailed neuro exam was not perf ormed. ASSESSMENT: Acute on chronic diastolic heart failure, mild. Improved from previous admission Acute exacerbation of COPD Chronic hypoxemic respiratory failure Obstructive sleep apnea CAD status post bypass grafting Hypertension Dyslipidemia Chronic anemia Chronic kidney disease Insulin-dependent diabetes mellitus Obesity PLAN: Transition to oral diuretics. Add Farxiga and losartan. Ongoing medical management by the primary care team. Thank you kindly for this consultation. Nurse Practitioner note has been reviewed, I agree with a documented findings and plan of care. Patient was seen and examined. 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, R caratid artery disease, valvular disease, pulmonary htn, bronchitis, home oxygen prn, poor vision/pt cannot recall reason, UTIs, rash/itching, WAS SEEN IN ER 12/2022 FOR N/V Last Myocardial Infarction Date:: 2014 History of Any Multi-Drug Resistant Organisms: ESBL Date of last positivie culture/infection: 04/15/21 MDRO Source:: ESBL URINE Past Surgical History: Cholecystectomy, Coronary Bypass/CABG, Heart Catheterization With Stent Additional Past Surgical History / Comment(s): PCI/stents in 2009 and 2014, 2016 CABG 3 vessel then sternal debridement for infection/removal of hardware, colonoscopy, bilateral cataract removals. Past Anesthesia/Blood Transfusion Reactions: No Reported Reaction Additional Past Anesthesia/Blood Transfusion Reaction / Comment(s): Claustrophobic Date of Last Stent Placement:: 2014 Past Psychological History: No Psychological Hx Reported Smoking Status: Former smoker Past Alcohol Use History: None Reported Past Drug Use History: None Reported - Past Family History Father Family Medical History: Coronary Artery Disease (CAD), Myocardial Infarction ([place]) Additional Family Medical History / Comment(s): STENT, OPEN HEART SURGERY Mother History Unknown: Yes Additional Family Medical History / Comment(s): DEPRESSION, mental illness Medications and Allergies Home Medications Medication Instructions Recorded Confirmed Type Atorvastatin [Lipitor] 80 mg PO HS 09/23/20 01/06/25 History Aspirin EC [Ecotrin Low Dose] 81 mg PO DAILY 12/12/21 01/06/25 History Clopidogrel Bisulfate [Plavix] 75 mg PO DAILY 12/12/21 01/06/25 History Metoprolol Succinate [Toprol XL] 50 mg PO DAILY 11/02/23 01/06/25 History Omeprazole [PriLOSEC] 20 mg PO AC-BID 11/02/23 01/06/25 History Budesonide-Formot 160-4.5 Mcg 2 puff INHALATION RT-BID 30 Days 11/05/23 01/06/25 Rx [Symbicort 160-4.5 Mcg Inhaler] #1 each Insulin Glargine,Hum.rec.anlog 80 units SQ HS 05/01/24 01/06/25 History [Lantus Solostar Pen] Albuterol Nebulized [Ventolin 2.5 mg INHALATION RT-TID PRN 12/21/24 01/06/25 History Nebulized] Insulin Lispro [humaLOG Kwikpen] 20 units SQ AC-TID 12/21/24 01/06/25 History Spironolactone [Aldactone] 25 mg PO DAILY 12/21/24 01/06/25 History Allergies Allergy/AdvReac Type Severity Reaction Status Date / Time codeine AdvReac Nausea & Verified 01/06/25 07:23 Vomiting Physical Exam Vitals: Vital Signs Temp Pulse Resp BP Pulse Ox 01/06/25 10:13 87 20 129/58 92 L 01/06/25 07:57 88 01/06/25 07:45 86 01/06/25 06:14 94 18 128/57 99 01/06/25 02:51 93 01/06/25 02:41 96 01/05/25 23:44 76 01/05/25 23:25 79 01/05/25 23:00 87 18 128/52 98 01/05/25 21:50 67 01/05/25 21:30 67 01/05/25 20:16 98.2 F 62 18 138/41 100 Intake and Output 01/05/25 01/06/25 01/06/25 22:59 06:59 14:59 Output Total 1999 -1999 Output: Urine 1999 Other: Weight 81.647 kg Results 01/05/25 20:32 01/05/25 20:32 Cardiac Enzymes 01/05/25 01/05/25 01/05/25 Range/Units 20:32 20:32 23:38 AST 21 (14-36) U/L Troponin I 0.018 0.018 (0.000-0.034) ng/mL 01/06/25 Range/Units 02:32 AST (14-36) U/L Troponin I 0.019 (0.000-0.034) ng/mL Coagulation 01/05/25 Range/Units 20:32 PT 10.4 (10.0-12.5) sec APTT 22.2 (22.0-30.0) sec CBC 01/05/25 Range/Units 20:32 WBC 8.58 (4.50-10.00) 10*3/uL RBC 2.53 L (4.10-5.20) 10*6/uL Hgb 8.5 L (12.0-15.0) g/dL Hct 26.5 L (37.2-46.3) % Plt Count 318 (140-440) 10*3/uL Comprehensive Metabolic Panel 01/05/25 Range/Units 20:32 Sodium 140 (137-145) mmol/L Potassium 4.8 (3.5-5.1) mmol/L Chloride 110 H (98-107) mmol/L Carbon Dioxide 22 (22-30) mmol/L BUN 42 H (7-17) mg/dL Creatinine 1.34 H (0.52-1.04) mg/dL Glucose 238 H (74-99) mg/dL Calcium 9.1 (8.4-10.2) mg/dL AST 21 (14-36) U/L ALT 17 (4-34) U/L Alkaline Phosphatase 59 (38-126) U/L Total Protein 6.0 L (6.3-8.2) g/dL Albumin 3.3 L (3.5-5.0) g/dL Current Medications Generic Name Dose Route Start Last Admin Trade Name Freq PRN Reason Stop Dose Admin Albuterol Sulfate 2.5 mg 01/05/25 22:22 01/06/25 02:41 Albuterol Nebulized 2.5 Mg/3 Ml INHALATION 2.5 mg RT-QID PRN Administration Shortness Of Breath Or Wheezing Albuterol/Ipratropium 3 ml 01/06/25 08:00 01/06/25 07:44 Ipratropium-Albuterol 3 Ml Neb INHALATION 3 ml RT-QID KAREN Administration Aspirin 81 mg 01/06/25 09:00 01/06/25 10:10 Aspirin 81 Mg PO 81 mg DAILY KAREN Administration Atorvastatin Calcium 80 mg 01/06/25 21:00 Atorvastatin 80 Mg Tab PO HS [facility] Budesonide/Formoterol Fumarate 2 puff 01/06/25 08:00 01/06/25 07:44 Symbicort 160-4.5 Mcg Inhaler INHALATION 2 puff RT-BID KAREN Administration Clopidogrel Bisulfate 75 mg 01/06/25 09:00 01/06/25 10:11 Clopidogrel 75 Mg Tab PO 75 mg DAILY KAREN Administration Dapagliflozin 10 mg 01/06/25 09:30 01/06/25 10:11 Dapagliflozin Propanediol 10 Mg Tablet PO 10 mg DAILY KAREN Administration Dextrose/Water 25 ml 01/06/25 01:59 Dextrose 50% Syringe 50 Ml IVP PER PROTOCOL PRN Hypoglycemia Protocol Dextrose/Water 50 ml 01/06/25 01:59 Dextrose 50% Syringe 50 Ml IVP PER PROTOCOL PRN Hypoglycemia Protocol Furosemide 40 mg 01/06/25 09:30 01/06/25 10:11 Furosemide 40 Mg Tab PO 40 mg DAILY KAREN Administration Sodium Chloride 1,000 mls @ 20 mls/hr 01/05/25 20:30 01/05/25 20:41 Saline 0.9% IV 20 mls/hr .Q24H KAREN Administration Insulin Human Lispro 0 unit 01/06/25 07:30 01/06/25 10:12 Insulin Lispro (Humalog) 100 Unit/Ml 10 Ml Vl SQ 18 unit ACHS KAREN Administration Protocol Losartan Potassium 50 mg 01/06/25 09:00 01/06/25 10:11 Losartan 50 Mg Tab PO 50 mg DAILY KAREN Administration Methylprednisolone Sodium Succinate 40 mg 01/06/25 06:00 01/06/25 06:42 Methylprednisolone Sod Succi 40 Mg/Ml 1 Ml Vial IV 40 mg Q6HR KAREN Administration Metoprolol Succinate 50 mg 01/06/25 09:00 01/06/25 10:11 Metoprolol Succinate (Er) 50 Mg Tab.Er.24h PO 50 mg DAILY KAREN Administration Pantoprazole Sodium 40 mg 01/06/25 07:30 01/06/25 10:12 Pantoprazole 40 Mg Tablet PO 40 mg AC-[id number] KAREN Administration Spironolactone 25 mg 01/06/25 09:00 01/06/25 10:11 Spironolactone 25 Mg Tab PO 25 mg DAILY KAREN Administration Intake and Output 01/05/25 01/06/25 01/06/25 22:59 06:59 14:59 Output Total 1999 Balance -1999 Output: Urine 1999 Other: Weight 81.647 kg 01/05/25 20:32 01/05/25 20:32
[2025-01-06 12:47] LABS: Glucose,Whole Blood 542 mg/dL (70-110)
[2025-01-06 14:23] LABS: Glucose,Whole Blood 451 mg/dL (70-110)
[2025-01-06 15:15] LABS: Glucose,Whole Blood 364 mg/dL (70-110)
[2025-01-06 17:12] LABS: Glucose,Whole Blood 337 mg/dL (70-110)
[2025-01-06] MEDS: HEPARIN SODIUM,PORCINE 5,000 UNIT/ML 1 ML VIAL SQ SCH (17:30)
[2025-01-06 19:48] LABS: Glucose,Whole Blood 253 mg/dL (70-110)
[2025-01-06] MEDS: INSULIN GLARGINE (LANTUS) 100 UNIT/ML SYR SQ SCH (20:53)
[2025-01-06] MEDS: ATORVASTATIN 80 MG TAB PO SCH (20:54)
[2025-01-06] MEDS: ACETAMINOPHEN TAB 325 MG TAB PO PRN (21:39)
[2025-01-07 06:13] LABS: Glucose,Whole Blood 226 mg/dL (70-110)
[2025-01-07] MEDS: LOSARTAN 50 MG TAB PO SCH (09:36)
[2025-01-07 11:08] VITALS: BMI 31.8
--- NOTE | 2025-01-07 11:48 | P.HPIM ---
History of Present Illness H&P Date: 01/06/25 Chief Complaint: Shortness of breath Patient is a 74-year-old female with a past medical history of coronary artery disease history of stent placement and CABG three-vessel, history of CVA/TIA with no residual deficit, LEO, dementia, diabetes, hypertension, history of HI, pulmonary hypertension and prior history of smoking. Patient presents to ER with complaints of shortness of breath worsening for the past 2 days.. No complaints of chest pain. No nausea vomiting abdominal pain or diarrhea. Patient uses oxygen as needed at home.Patient has been afebrile. Chest x-ray showed cardiomegaly, pulmonary vascular congestion and bilateral pleural effusions. Correlate with BNP for CHF. EKG showed sinus rhythm with first-degree AV block. Laboratory data showed WBC 8.5 hemoglobin 8.5 and platelets 318, sodium 140 potassium 4.8 chloride 110 bicarb is 22 BUN 5 and creatinine 1.34 and blood sugar 238 went up to 542. Liver enzymes are not elevated. Troponin x 3 negative., proBNP 1530 Review of Systems Constitutional: Patient denies any fever or chills . No generalized weakness or weight loss. Abdomen: Patient denied nausea vomiting and diarrhea and abdominal pain. Cardiovascular: Patient denies any chest pain. Positive for short of breath no palpitations. Respiratory: Cough without sputum production. Positive for shortness of breath Neurologic: Patient denied any numbness or tingling. no headache. Musculoskeletal: Patient denies any complaints of joint swelling or deformity. Skin: Negative Psychiatric: Negative Endocrine: No heat or cold intolerance. No recent weight gain. Genitourinary: No dysuria or hematuria. All other 14 point ROS negative except the above Past Medical History Past Medical History: Asthma, Coronary Artery Disease (CAD), Chest Pain / Angina, Heart Failure, COPD, CVA/TIA, Dementia, Diabetes Mellitus, Hyperlipidemia, Hypertension, Myocardial Infarction (HI), Pneumonia, Respiratory Disorder, Syncope, Vascular Disorder Additional Past Medical History / Comment(s): IDDM type II, neuropathy bilateral feet, 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, R caratid artery disease, valvular disease, pulmonary htn, bronchitis, home oxygen prn, poor vision/pt cannot recall reason, UTIs, rash/itching, WAS SEEN IN ER 12/2022 FOR N/V Last Myocardial Infarction Date:: 2014 History of Any Multi-Drug Resistant Organisms: ESBL Date of last positivie culture/infection: 04/15/21 MDRO Source:: ESBL URINE Past Surgical History: Cholecystectomy, Coronary Bypass/CABG, Heart Catheterization With Stent Additional Past Surgical History / Comment(s): PCI/stents in 2009 and 2014, 2017 CABG 3 vessel then sternal debridement for infection/removal of hardware, colonoscopy, bilateral cataract removals. Past Anesthesia/Blood Transfusion Reactions: No Reported Reaction Additional Past Anesthesia/Blood Transfusion Reaction / Comment(s): Claustrophobic Date of Last Stent Placement:: 2014 Past Psychological History: No Psychological Hx Reported Smoking Status: Former smoker Past Alcohol Use History: None Reported Past Drug Use History: None Reported - Past Family History Father Family Medical History: Coronary Artery Disease (CAD), Myocardial Infarction (HI) Additional Family Medical History / Comment(s): STENT, OPEN HEART SURGERY Mother History Unknown: Yes Additional Family Medical History / Comment(s): DEPRESSION, mental illness Medications and Allergies Home Medications Medication Instructions Recorded Confirmed Type Atorvastatin [Lipitor] 80 mg PO HS 09/23/20 01/06/25 History Aspirin EC [Ecotrin Low Dose] 81 mg PO DAILY 12/12/21 01/06/25 History Clopidogrel Bisulfate [Plavix] 75 mg PO DAILY 12/12/21 01/06/25 History Metoprolol Succinate [Toprol XL] 50 mg PO DAILY 11/02/23 01/06/25 History Omeprazole [PriLOSEC] 20 mg PO AC-BID 11/02/23 01/06/25 History Budesonide-Formot 160-4.5 Mcg 2 puff INHALATION RT-BID 30 Days 11/05/23 01/06/25 Rx [Symbicort 160-4.5 Mcg Inhaler] #1 each Insulin Glargine,Hum.rec.anlog 80 units SQ HS 05/01/24 01/06/25 History [Lantus Solostar Pen] Albuterol Nebulized [Ventolin 2.5 mg INHALATION RT-TID PRN 12/21/24 01/06/25 History Nebulized] Insulin Lispro [humaLOG Kwikpen] 20 units SQ AC-TID 12/21/24 01/06/25 History Spironolactone [Aldactone] 25 mg PO DAILY 12/21/24 01/06/25 History Allergies Allergy/AdvReac Type Severity Reaction Status Date / Time codeine AdvReac Nausea & Verified 01/06/25 17:59 Vomiting Physical Exam Vitals: Vital Signs Temp Pulse Resp BP Pulse Ox 01/06/25 11:30 96 01/06/25 11:19 93 01/06/25 10:13 87 20 129/58 92 L 01/06/25 07:57 88 01/06/25 07:45 86 01/06/25 06:14 94 18 128/57 99 01/06/25 02:51 93 01/06/25 02:41 96 01/05/25 23:44 76 01/05/25 23:25 79 01/05/25 23:00 87 18 128/52 98 01/05/25 21:50 67 01/05/25 21:30 67 01/05/25 20:16 98.2 F 62 18 138/41 100 Intake and Output 01/05/25 01/06/25 01/06/25 22:59 06:59 14:59 Output Total 1999 Balance -1999 Output: Urine 1999 Other: Weight 81.647 kg PHYSICAL EXAMINATION: Patient is lying in the bed,, no acute distress, awake alert and oriented.. HEENT: Normocephalic. Neck is supple. Pupils reactive. Nostrils clear. Oral cavity is moist. Neck reveals no JVD, carotid bruits, or thyromegaly. CHEST EXAMINATION: Trachea is central. Symmetrical expansion. Expiratory wheezing and no rhonchi or crackles. Nonlabored breathing.. CARDIAC: Normal S1, S2 with no gallops. No murmurs ABDOMEN: Soft. Bowel sounds normal. No organomegaly. No abdominal bruits. Extremities: r trace edema. No clubbing or cyanosis Neurologically awake, alert, oriented x3 with well-coordinated movements. No focal deficits noted Skin: No rash or skin lesions. Psychiatric: Coperative. Nonsuicidal Musculoskeletal: No joint swelling or deformity. Normal range of motion. Results CBC & Chem 7: 01/05/25 20:32 01/05/25 20:32 Labs: Abnormal Lab Results - Last 24 Hours (Table) 01/05/25 01/05/25 01/06/25 Range/Units 20:32 20:32 09:26 RBC 2.53 L (4.10-5.20) 10*6/uL Hgb 8.5 L (12.0-15.0) g/dL Hct 26.5 L (37.2-46.3) % MCV 104.7 H (80.0-97.0) fL MCH 33.6 H (27.0-32.0) pg MPV 9.3 L (9.5-12.2) fL Chloride 110 H (98-107) mmol/L BUN 42 H (7-17) mg/dL Creatinine 1.34 H (0.52-1.04) mg/dL Glucose 238 H (74-99) mg/dL POC Glucose (mg/dL) 471 H (70-110) mg/dL Magnesium 2.4 H (1.6-2.3) mg/dL Total Protein 6.0 L (6.3-8.2) g/dL Albumin 3.3 L (3.5-5.0) g/dL Assessment and Plan Assessment: Acute COPD exacerbation Mild acute on chronic Hyperglycemia uncontrolled diabetes type 2 insulin-dependent Chronic hypoxemic respiratory failure on oxygen at [facility] with preserved ejection fraction 2 L via nasal cannula at home as needed Obstructive sleep apnea intolerant to BiPAP Obesity BMI 31.9 Hypertension Hyperlipidemia Coronary artery disease with history of stent placement and CABG three-vessel CKD stage III Chronic anemia with hemoglobin 8.5 GI and DVT prophylaxis Plan: Patient will be continued on oxygen supplementation. Continue with IV Solu- Medrol, DuoNebs and Symbicort. Patient was started back on Lasix 40 mg twice daily and insulin regimen. Current with home medications. 2D echocardiogram was ordered. Pulmonary and cardiology is on board. Time with Patient: Greater than 30
[2025-01-07 11:55] LABS: Glucose,Whole Blood 234 mg/dL (70-110)
[2025-01-07 12:08] LABS: Basophils # (A) 0.01 10*3/uL (0.00-0.10); Basophils % (A) 0.1 %; HCT 27.3 % (37.2-46.3); HGB 8.7 g/dL (12.0-15.0); Lymphocytes # (A) 0.42 10*3/uL (0.90-5.00); Lymphocytes % (A) 2.6 %; MCH 33.2 pg (27.0-32.0); MCHC 31.9 g/dL (32.0-37.0); MCV 104.2 fL (80.0-97.0); Mean Platelet Volume 9.8 fL (9.5-12.2); Monocytes # (A) 0.37 10*3/uL (0.20-1.00); Monocytes % (A) 2.3 %; Neutrophils % (A) 94.3 %; Platelet Count 388 10*3/uL (140-440); RBC 2.62 10*6/uL (4.10-5.20); RDW 14.5 % (11.5-14.5); WBC 16.02 10*3/uL (4.50-10.00)
[2025-01-07 12:11] LABS: African American GFR (CKD) 46 (>60 ml/min/1.73 sqM); Anion Gap 11 mmol/L; Blood Urea Nitrogen 61 mg/dL (7-17); Calcium 9.9 mg/dL (8.4-10.2); Carbon Dioxide 25 mmol/L (22-30); Chloride 102 mmol/L (98-107); Glucose 227 mg/dL (74-99); Non-African American GFR(CKD) 40 (>60 ml/min/1.73 sqM); Sodium 138 mmol/L (137-145)
--- NOTE | 2025-01-07 12:12 | P.PN ---
Subjective HPI: The patient is a 74-year-old female with a history of CHF and chronic hypoxia on 3 liters of oxygen, COPD, ischemic cardiomyopathy with an EF of 45%, coronary artery disease, hypertension, dyslipidemia, type 2 diabetes, obesity, and prior CVA. She previously followed in the office with Dr. Abdi but has not been there since October 2023. She was seen in the hospital last month. She presented to the hospital with symptoms of shortness of breath. She is seen and examined resting comfortably laying flat in bed in no acute distress. Chest x-ray reveals pulmonary vascular congestion and bilateral pleural effusions. Laboratory data reviewed, WBC 8.5, hemoglobin 8.5, platelets 318, sodium 140, potassium 4.8, creatinine 1.34, cardiac enzymes negative x 3 and NT proBNP 1530. Prior cardiac testing - Echo: 10/2023: EF 45%, poor quality study with limited views - Heart Cath: 2017: Cx disease with collaterals, moderate to severe in LAD, severe in 1st OM, recommended CABG - CABG from 2017: 3 vessel CABG with WELCH to LAD, SVG to PDA, SVG to OM 01/07/2025 Patient seen and examined resting comfortably in no acute distress. She is on oral diuretics. She is receiving IV steroids. Blood pressure 170/75 heart rate 80 afebrile maintaining oxygen saturation on nasal cannula. Laboratory data reviewed, WBC 16, hemoglobin 8.7 and platelets 388. PHYSICAL EXAMINATION: Neck: Brisk carotid upstroke, no jugular venous distention. Lungs: Clear to auscultation. Heart: Regular rate and rhythm, S1-S2, no murmur or rub. Abdomen: Soft nontender, positive bowel sounds. Extremities: No edema, intact distal pulses. Neuro: Alert, oriented, no focal deficits. Detailed neuro exam was not performed. ASSESSMENT: Acute on chronic diastolic heart failure, mild. Improved from previous admission Acute exacerbation of COPD Chronic hypoxemic respiratory failure Obstructive sleep apnea CAD status post bypass grafting Hypertension Dyslipidemia Chronic anemia Chronic kidney disease Insulin-dependent diabetes mellitus Obesity PLAN: Increase losartan to 100 mg daily. Ongoing medical management by the primary care team. We will follow along as needed, please call with further questions or concerns. Follow-up upon discharge with Dr. Abdi. Nurse Practitioner note has been reviewed, I agree with a documented findings and plan of care. Patient was seen and examined. Objective - Vital Signs Vital signs: Vital Signs Temp 97.5 F L 01/07/25 07:15 Pulse 80 01/07/25 09:11 Resp 24 01/07/25 08:00 BP 170/75 01/07/25 07:15 Pulse Ox 99 01/07/25 07:15 FiO2 Intake & Output 01/06/25 01/07/25 01/07/25 18:59 06:59 18:59 Intake Total 240 Output Total 700 700 Balance -700 -700 240 Weight 81.647 kg 81.647 kg Intake: Oral 240 Output: Urine 700 700 Other: Voiding Method Toilet Bedside Commode # Voids 3 1 # Bowel Movements 1 - Labs CBC & Chem 7: 01/05/25 20:32 01/05/25 20:32 Labs: Abnormal Lab Results - Last 24 Hours (Table) 01/06/25 01/06/25 01/06/25 Range/Units 12:45 14:22 15:13 POC Glucose (mg/dL) 542 H* 451 H 364 H (70-110) mg/dL 01/06/25 01/06/25 01/07/25 Range/Units 17:10 19:45 06:09 POC Glucose (mg/dL) 337 H 253 H 226 H (70-110) mg/dL 01/07/25 Range/Units 11:54 POC Glucose (mg/dL) 234 H (70-110) mg/dL
[2025-01-07] MEDS: CHOLECALCIFEROL 25 MCG (1000 IU) TABLET PO SCH (14:13)
[2025-01-07 17:08] LABS: Glucose,Whole Blood 264 mg/dL (70-110)
--- NOTE | 2025-01-07 17:20 | P.PN ---
Subjective Progress Note Date: 01/07/25 Patient is a 74-year-old female with past medical history significant for COPD, LEO, obesity, diabetes mellitus, hypertension, hyperlipidemia, coronary artery disease with previous CABG, chronic kidney disease stage III. Her primary care provider is Dr. Elvira Gonzales. Has followed in the pulmonary office with Dr. Monique. She is known to have moderate COPD with an FEV1 54% of predicted. Also, severe obstructive sleep apnea with an AHI of 68, noncompliant with BiPAP. She does have home O2 available, used as needed. Of note, patient recently hospitalized December 22 through for a combination of acute COPD exacerbation and an exacerbation of diastolic heart failure. Did have an updated echocardiogram estimating a preserved left ventricular ejection fraction of 55 to 60%, as well as, moderate mitral stenosis and mild mitral regurgitation. She returns to the emergency department late last night with a chief complaint of progressively worsening shortness of breath over the last 24 to 48 hours. Workup in the ED including a chest x-ray showing cardiomegaly, pulmonary vascular congestion, and blunting of the costophrenic angles. NT proBNP elevated at 1530. CBC: WBC count 8.6, hemoglobin 8.5, platelets 318. CMP: Sodium 140, potassium 4.8, chloride 110, serum bicarb 22, BUN 42, c reatinine 1.34, glucose 238. Lactic 1. LFTs unremarkable. Troponin 0.018 x 2. EKG: Sinus rhythm with first-degree AV block, rate 62 bpm, no acute ischemic changes. Patient currently being evaluated emergency department. She is on 2 L/min nasal cannula, SpO2 reading 100% on bedside monitor. Endorses progressively worsening shortness of breath over the last 1 to 2 days. Denies any chest pain, heart palpitations, orthopnea, PND, or increased lower extremity edema. Denies missing any doses of Lasix at home. States that her daughter and grandchildren were sick with a cold approximately 1 month ago. Endorses occasional cough with white sputum. No significant sputum purulence, hemoptysi s, fever/chills. Denies nausea, vomiting, diarrhea. Given a loading dose of Solu-Medrol and multiple DuoNeb treatments in the ED. Also, started on Lasix 40 mg twice daily. She is producing urine and has an external Wall catheter in place. Current vital signs are stable. 01/07/2025, the patient is being seen for a follow-up. Patient is comfortable in bed. No significant chest pain or shortness of breath. BP was noted to be elevated and cardiology on the case. Remains on bronchodilators. Remains on steroids and the patient is also on oral diuretics and the patient's receiving Lasix 40 mg p.o. daily and Aldactone 25 mg p.o. daily. Blood work shows a white cell count of 16 with a hemoglobin 8.7 and a platelet count of 388. BUN 61 with a creatinine of 1.3. Sodium level is at 138. Troponins are negative. For now, the patient on IV Solu-Medrol 40 mg p.o. 6 hours. Objective - Vital Signs Vital signs: Vital Signs Temp 97.6 F 01/07/25 15:00 Pulse 80 01/07/25 16:07 Resp 16 01/07/25 15:00 BP 136/60 01/07/25 15:00 Pulse Ox 98 01/07/25 15:00 FiO2 Intake & Output 01/06/25 01/07/25 01/07/25 18:59 06:59 18:59 Intake Total 360 Output Total 700 700 Balance -700 -700 360 Weight 81.647 kg 81.647 kg Intake: Oral 360 Output: Urine 700 700 Other: Voiding Method Toilet Bedside Commode # Voids 3 1 # Bowel Movements 1 1 - Exam GENERAL EXAM: Alert, 74-year-old white female, on 2 L/min nasal cannula, comfortable in no apparent distress. HEAD: Normocephalic and atraumatic EYES: Normal reaction of pupils, equal size. NOSE: Clear with pink turbinates. THROAT: No erythema or exudates. NECK: No masses, no JVD. CHEST: No chest wall deformity. LUNGS: Equal air entry with minimal expiratory wheezing heard over the anterior lung robert bilaterally. No conversational dyspnea or accessory muscle use.. CVS: S1 and S2 normal with no audible murmur, regular rhythm. No extra heart sounds ABDOMEN: No hepatosplenomegaly, active bowel sounds, no guarding or rigidity. SPINE: No scoliosis or deformity SKIN: No rashes CENTRAL NERVOUS SYSTEM: No focal deficits, tone is normal in all 4 extremities. EXTREMITIES: There is no peripheral edema, clubbing, or cyanosis. Peripheral pulses are intact. - Labs CBC & Chem 7: 01/07/25 11:46 01/07/25 11:46 Labs: Abnormal Lab Results - Last 24 Hours (Table) 01/06/25 01/07/25 01/07/25 Range/Units 19:45 06:09 11:46 WBC 16.02 H (4.50-10.00) 10*3/uL RBC 2.62 L (4.10-5.20) 10*6/uL Hgb 8.7 L (12.0-15.0) g/dL Hct 27.3 L (37.2-46.3) % MCV 104.2 H (80.0-97.0) fL MCH 33.2 H (27.0-32.0) pg MCHC 31.9 L (32.0-37.0) g/dL Immature Gran # 0.12 H (0.00-0.04) 10*3/uL Neutrophils # 15.10 H (1.80-7.70) 10*3/uL Lymphocytes # 0.42 L (0.90-5.00) 10*3/uL Eosinophils # 0.00 L (0.04-0.35) 10*3/uL BUN (7-17) mg/dL Creatinine (0.52-1.04) mg/dL Glucose (74-99) mg/dL POC Glucose (mg/dL) 253 H 226 H (70-110) mg/dL 01/07/25 01/07/25 01/07/25 Range/Units 11:46 11:54 17:07 WBC (4.50-10.00) 10*3/uL RBC (4.10-5.20) 10*6/uL Hgb (12.0-15.0) g/dL Hct (37.2-46.3) % MCV (80.0-97.0) fL MCH (27.0-32.0) pg MCHC (32.0-37.0) g/dL Immature Gran # (0.00-0.04) 10*3/uL Neutrophils # (1.80-7.70) 10*3/uL Lymphocytes # (0.90-5.00) 10*3/uL Eosinophils # (0.04-0.35) 10*3/uL BUN 61 H (7-17) mg/dL Creatinine 1.31 H (0.52-1.04) mg/dL Glucose 227 H (74-99) mg/dL POC Glucose (mg/dL) 234 H 264 H (70-110) mg/dL Assessment and Plan Assessment: Exacerbation of COPD CHF,, preserved lung function with valvular heart disease and mitral stenosis Acute on chronic dyspnea, secondary to combination of above Moderate COPD, with an FEV1 54% of predicted Chronic hypoxemic respiratory failure, with 2-3 L supplemental oxygen available at home and worn as needed Severe obstructive sleep apnea with an AHI of 68, intolerant to BiPAP Obesity BMI 31.9 kg/m Hypertension History of hyperlipidemia Diabetes mellitus type II, insulin-dependent Coronary disease with previous bypass surgery and previous stenting Chronic kidney disease stage III Chronic anemia, hemoglobin 8.5 g/dL Plan: Currently on supplemental oxygen, 2 L/min, wean as tolerated Most recent echocardiogram reviewed estimating preserved left ventricular ejection fraction of 55 to 60%, as well as, moderate mitral stenosis and mild mitral regurgitation. Continues on Lasix 40 mg twice daily Continue Aldactone Continue DuoNebs [id number] Symbicort inhaler IV Solu-Medrol Insulin coverage Continue home medication including combination of valsartan, metoprolol, Farxiga Urine output is adequate. No altered mentation. Will be seen by cardiology. Will continue to follow.
[2025-01-07 20:14] LABS: Glucose,Whole Blood 177 mg/dL (70-110)
[2025-01-08] MEDS ORDERED: MELATONIN 3 MG TABLET PO PRN (01:48)
--- NOTE | 2025-01-08 01:48 | P.PN ---
Subjective Progress Note Date: 01/07/25 Patient is a 74-year-old female with a past medical history of coronary artery disease history of stent placement and CABG three-vessel, history of CVA/TIA with no residual deficit, LEO, dementia, diabetes, hypertension, history of MA, pulmonary hypertension and prior history of smoking. Patient presents to ER with complaints of shortness of breath worsening for the past 2 days.. No complaints of chest pain. No nausea vomiting abdominal pain or diarrhea. Patient uses oxygen as needed at home.Patient has been afebrile. Chest x-ray showed cardiomegaly, pulmonary vascular congestion and bilateral pleural effusions. Correlate with BNP for CHF. EKG showed sinus rhythm with first-degree AV block. Laboratory data showed WBC 8.5 hemoglobin 8.5 and platelets 318, sodium 140 potassium 4.8 chloride 110 bicarb is 22 BUN 5 and creatinine 1.34 and blood sugar 238 went up to 542. Liver enzymes are not elevated. Troponin x 3 negative., proBNP 1530 01/07/2025 Patient is seen in follow-up today continues to report shortness of breath and not feeling well. Patient has been evaluated by cardiology along with pulmonary continued on current treatment including DuoNeb treatments and IV steroids and will continue for now. Patient does report increased shortness of breath with exertion. Patient also has been transitioned to oral Lasix per cardiology making adjustments to medications. Encouraged increase activity as tolerated and sitting up more frequently out of the bed. Patient chronically wears oxygen and is maintained on 3 L. Continue monitoring overnight with possible discharge planning in the next 24 to 48 hours. Review of systems: Constitutional: reports of fatigue, no fever, or chills Cardiovascular: No reports of chest pain or palpitations Respiratory: reports of continued shortness of breath or cough GI: No reports of nausea, vomiting, or diarrhea : No reports of dysuria or retention Neurovascular: No reports of weakness or numbness All medications have been reviewed PHYSICAL EXAMINATION: Patient is lying in the bed, asleep although arousable, no acute distress, alert and oriented x 3, well-developed, elderly appearing, obese HEENT: Normocephalic. Neck is supple. Pupils reactive. Nostrils clear. Oral cavity is moist. Neck reveals no JVD, carotid bruits, or thyromegaly. CHEST EXAMINATION: Trachea is central. Symmetrical expansion. Minimal expiratory wheezing and no rhonchi or crackles. Nonlabored breathing.. Improved aeration CARDIAC: Normal S1, S2 with no gallops. No murmurs ABDOMEN: Soft. Obese. Bowel sounds normal. No organomegaly. No abdominal bruits. Extremities: r trace edema. No clubbing or cyanosis Neurologically awake, alert, oriented x3 with well-coordinated movements. No focal deficits noted Skin: No rash or skin lesions. Psychiatric: Cooperative. Non-suicidal Musculoskeletal: No joint swelling or deformity. Normal range of motion. Assessment: Acute COPD exacerbation Mild acute on chronic congestive heart failure with preserved EF Diabetes mellitus, type II, uncontrolled with hyperglycemia, insulin-dependent Chronic hypoxemic respiratory failure on oxygen at [facility] with preserved ejection fraction 2 L via nasal cannula at home as needed Obstructive sleep apnea intolerant to BiPAP Obesity BMI 31.9 Hypertension Hyperlipidemia Coronary artery disease with history of stent placement and CABG three-vessel CKD stage III Chronic anemia with hemoglobin 8.5 GI and DVT prophylaxis Full code Plan: Patient will be continued on oxygen supplementation. Chronically wears 2 L outpatient currently maintained on 3 L and discussed weaning as tolerated as patient is 99% currently. Continue with IV Solu-Medrol, DuoNebs and Symbicort per pulmonary and will continue current regimen for now. Patient has been transition to oral Lasix per cardiology making adjustments to medications recommending outpatient follow-up Encouraged increase activity as tolerated with sitting in the chair more often and out of the bed Will discuss with other consultations regarding discharge planning, possibly in the next 24 to 48 hours The impression and plan of care has been dictated by Judith Brown, Nurse Practitioner as directed. Dr. Dewey MD I have performed a history and examination and MDM of this patient, discussed the same with the dictator, and agree with the dictator's assessment and plan as written ,documented as a scribe. Based on total visit time, I have performed more than 50% of the visit. Objective - Vital Signs Vital signs: Vital Signs Temp 97.5 F L 01/07/25 07:15 Pulse 80 01/07/25 09:11 Resp 24 01/07/25 08:00 BP 170/75 01/07/25 07:15 Pulse Ox 99 01/07/25 07:15 FiO2 Intake & Output 01/06/25 01/07/25 01/07/25 18:59 06:59 18:59 Intake Total 240 Output Total 700 700 Balance -700 -700 240 Weight 81.647 kg 81.647 kg Intake: Oral 240 Output: Urine 700 700 Other: Voiding Method Toilet Bedside Commode # Voids 3 1 # Bowel Movements 1 - Labs CBC & Chem 7: 01/07/25 11:46 01/07/25 11:46 Labs: Abnormal Lab Results - Last 24 Hours (Table) 01/06/25 01/06/25 01/06/25 Range/Units 12:45 14:22 15:13 POC Glucose (mg/dL) 542 H* 451 H 364 H (70-110) mg/dL 01/06/25 01/06/25 01/07/25 Range/Units 17:10 19:45 06:09 POC Glucose (mg/dL) 337 H 253 H 226 H (70-110) mg/dL
[2025-01-08] MEDS: methylPREDNISolone SOD SUCCI 40 MG/ML 1 ML VIAL IV SCH (04:42)
[2025-01-08 06:01] LABS: Glucose,Whole Blood 119 mg/dL (70-110)
[2025-01-08 10:28] LABS: BUN/Creat Ratio 36.94 Ratio (12.00-20.00); Blood Urea Nitrogen 62.8 mg/dL (9.0-27.0); Calcium 9.2 mg/dL (8.7-10.3); Carbon Dioxide 23.6 mmol/L (21.6-31.8); Chloride 105 mmol/L (96-109); Glucose 142 mg/dL (70-110); Potassium 5.2 mmol/L (3.5-5.5); Sodium 140 mmol/L (135-145)
[2025-01-08 12:18] LABS: Glucose,Whole Blood 273 mg/dL (70-110)
--- NOTE | 2025-01-08 14:26 | P.PN ---
Subjective Progress Note Date: 01/08/25 Patient is a 74-year-old female with a past medical history of coronary artery disease history of stent placement and CABG three-vessel, history of CVA/TIA with no residual deficit, LEO, dementia, diabetes, hypertension, history of OR, pulmonary hypertension and prior history of smoking. Patient presents to ER with complaints of shortness of breath worsening for the past 2 days.. No complaints of chest pain. No nausea vomiting abdominal pain or diarrhea. Patient uses oxygen as needed at home.Patient has been afebrile. Chest x-ray showed cardiomegaly, pulmonary vascular congestion and bilateral pleural effusions. Correlate with BNP for CHF. EKG showed sinus rhythm with first-degree AV block. Laboratory data showed WBC 8.5 hemoglobin 8.5 and platelets 318, sodium 140 potassium 4.8 chloride 110 bicarb is 22 BUN 5 and creatinine 1.34 and blood sugar 238 went up to 542. Liver enzymes are not elevated. Troponin x 3 negative., proBNP 1530 01/07/2025 Patient is seen in follow-up today continues to report shortness of breath and not feeling well. Patient has been evaluated by cardiology along with pulmonary continued on current treatment including DuoNeb treatments and IV steroids and will continue for now. Patient does report increased shortness of breath with exertion. Patient also has been transitioned to oral Lasix per cardiology making adjustments to medications. Encouraged increase activity as tolerated and sitting up more frequently out of the bed. Patient chronically wears oxygen and is maintained on 3 L. Continue monitoring overnight with possible discharge planning in the next 24 to 48 hours. 01/08/2025 Patient is seen in follow-up today continued on [id number] DuoNebs and also IV steroids with pulmonary and cardiology following. Patient has been valverde sition to oral Lasix and will continue. Patient appears somewhat more dyspneic today and does continue with bronchospasms and expiratory wheezing noted on exam. Will continue IV steroids for another 24 hours and discussed with pulmonary regarding possible discharge planning in the next 24 hours. Patient has been encouraged to increase activity as tolerated and sit up out of the bed more frequently today. Creatinine also slightly elevated on today's exam at 1.7 and recommending holding Lasix for 1 to 2 days to monitor for improvements. Review of systems: Constitutional: reports of fatigue, no fever, or chills Cardiovascular: No reports of chest pain or palpitations Respiratory: reports of continued shortness of breath with wheezing and bronchospasms, exerted shortness of breath noted GI: No reports of nausea, vomiting, or diarrhea : No reports of dysuria or retention Neurovascular: No reports of weakness or numbness All medications have been reviewed PHYSICAL EXAMINATION: Patient is lying in the bed, awake, mildly tachypneic with audible expiratory wheezing, alert and oriented x 3, well-developed, elderly appearing, obese HEENT: Normocephalic. Neck is supple. Pupils reactive. Nostrils clear. Oral cavity is moist. Neck reveals no JVD, carotid bruits, or thyromegaly. CHEST EXAMINATION: Trachea is central. Symmetrical expansion. Audible expiratory wheezing on exam, slightly improved aeration, nonlabored breathing.. CARDIAC: Normal S1, S2 with no gallops. No murmurs ABDOMEN: Soft. Obese. Bowel sounds normal. No organomegaly. No abdominal bruits. Extremities: r trace edema. No clubbing or cyanosis Neurologically awake, alert, oriented x3 with well-coordinated movements. No focal deficits noted Skin: No rash or skin lesions. Psychiatric: Cooperative. Non-suicidal Musculoskeletal: No joint swelling or deformity. Normal range of motion. Assessment: Acute COPD exacerbation Mild acute on chronic congestive heart failure with preserved EF Diabetes mellitus, type II, uncontrolled with hyperglycemia, insulin-dependent, steroid-induced hyperglycemia as well Chronic hypoxemic respiratory failure on oxygen at [facility] with preserved ejection fraction 2 L via nasal cannula at home as needed Obstructive sleep apnea intolerant to BiPAP Obesity BMI 31.9 Hypertension Hyperlipidemia Coronary artery disease with history of stent placement and CABG three-vessel CKD stage III Chronic anemia with hemoglobin 8.5 GI and DVT prophylaxis Full code Plan: Patient will be continued on oxygen supplementation. Chronically wears 2 L outpatient currently maintained on 3 L and discussed weaning as tolerated as patient is 99% currently. Continue with IV Solu-Medrol, DuoNebs and Symbicort per pulmonary and will continue current regimen for now. Patient with signi ficant expiratory wheezing and tachypneic noted on exam. Encouraged to increase activity as tolerated with monitoring overnight and possible discharge planning in 24 hours. Patient has been transitioned to oral Lasix per cardiology making adjustments to medications recommending outpatient follow-up Encouraged increase activity as tolerated with sitting in the chair more often and out of the bed Will discuss with other consultations regarding discharge planning, possibly in the next 24 hours The impression and plan of care has been dictated by Judith Brown, Nurse Practitioner as directed. Dr. Dewey MD I have performed a history and examination and MDM of this patient, discussed the same with the dictator, and agree with the dictator's assessment and plan as written ,documented as a scribe. Based on total visit time, I have performed more than 50% of the visit. Objective - Vital Signs Vital signs: Vital Signs Temp 98.1 F 01/08/25 07:00 Pulse 75 01/08/25 11:48 Resp 16 01/08/25 07:00 BP 137/75 01/08/25 07:00 Pulse Ox 100 01/08/25 07:00 FiO2 Intake & Output 01/07/25 01/08/25 01/08/25 18:59 06:59 18:59 Intake Total 600 240 Balance 600 240 Weight 81.647 kg Intake: Oral 600 240 Other: Voiding Method Toilet Toilet Bedside Commode Bedside Commode # Voids 1 2 1 # Bowel Movements 1 - Labs CBC & Chem 7: 01/07/25 11:46 01/08/25 06:54 Labs: Abnormal Lab Results - Last 24 Hours (Table) 01/07/25 01/07/25 01/08/25 Range/Units 17:07 20:13 06:00 BUN (9.0-27.0) mg/dL Creatinine (0.6-1.5) mg/dL Est GFR (CKD-EPI) (>=60) BUN/Creatinine Ratio (12.00-20.00) Ratio Glucose (70-110) mg/dL POC Glucose (mg/dL) 264 H 177 H 119 H (70-110) mg/dL 01/08/25 01/08/25 Range/Units 06:54 12:17 BUN 62.8 H (9.0-27.0) mg/dL Creatinine 1.7 H (0.6-1.5) mg/dL Est GFR (CKD-EPI) 31 L (>=60) BUN/Creatinine Ratio 36.94 H (12.00-20.00) Ratio Glucose 142 H (70-110) mg/dL POC Glucose (mg/dL) 273 H (70-110) mg/dL
--- NOTE | 2025-01-08 17:25 | P.PN ---
Subjective Progress Note Date: 01/08/25 Patient is a 74-year-old female with past medical history significant for COPD, LEO, obesity, diabetes mellitus, hypertension, hyperlipidemia, coronary artery disease with previous CABG, chronic kidney disease stage III. Her primary care provider is Dr. Elvira Gonzales. Has followed in the pulmonary office with Dr. Monique. She is known to have moderate COPD with an FEV1 54% of predicted. Also, severe obstructive sleep apnea with an AHI of 68, noncompliant with BiPAP. She does have home O2 available, used as needed. Of note, patient recently hospitalized December 22 through for a combination of acute COPD exacerbation and an exacerbation of diastolic heart failure. Did have an updated echocardiogram estimating a preserved left ventricular ejection fraction of 55 to 60%, as well as, moderate mitral stenosis and mild mitral regurgitation. She returns to the emergency department late last night with a chief complaint of progressively worsening shortness of breath over the last 24 to 48 hours. Workup in the ED including a chest x-ray showing cardiomegaly, pulmonary vascular congestion, and blunting of the costophrenic angles. NT proBNP elevated at 1530. CBC: WBC count 8.6, hemoglobin 8.5, platelets 318. CMP: Sodium 140, potassium 4.8, chloride 110, serum bicarb 22, BUN 42, c reatinine 1.34, glucose 238. Lactic 1. LFTs unremarkable. Troponin 0.018 x 2. EKG: Sinus rhythm with first-degree AV block, rate 62 bpm, no acute ischemic changes. Patient currently being evaluated emergency department. She is on 2 L/min nasal cannula, SpO2 reading 100% on bedside monitor. Endorses progressively worsening shortness of breath over the last 1 to 2 days. Denies any chest pain, heart palpitations, orthopnea, PND, or increased lower extremity edema. Denies missing any doses of Lasix at home. States that her daughter and grandchildren were sick with a cold approximately 1 month ago. Endorses occasional cough with white sputum. No significant sputum purulence, hemoptysi s, fever/chills. Denies nausea, vomiting, diarrhea. Given a loading dose of Solu-Medrol and multiple DuoNeb treatments in the ED. Also, started on Lasix 40 mg twice daily. She is producing urine and has an external Wall catheter in place. Current vital signs are stable. 01/07/2025, the patient is being seen for a follow-up. Patient is comfortable in bed. No significant chest pain or shortness of breath. BP was noted to be elevated and cardiology on the case. Remains on bronchodilators. Remains on steroids and the patient is also on oral diuretics and the patient's receiving Lasix 40 mg p.o. daily and Aldactone 25 mg p.o. daily. Blood work shows a white cell count of 16 with a hemoglobin 8.7 and a platelet count of 388. BUN 61 with a creatinine of 1.3. Sodium level is at 138. Troponins are negative. For now, the patient on IV Solu-Medrol 40 mg p.o. 6 hours. 01/08/2025, the patient is being seen for a follow-up. Resting comfortably in bed. She is currently on 4 L of oxygen by nasal cannula with pulse ox of 96%. Remains on bronchodilators. Remains on Symbicort. Remains on IV Solu-Medrol 40 mg every 6 hours. Patient is currently on Lasix 40 mg p.o. daily. Blood work shows a white cell count of 16.02 with a hemoglobin 8.7, creatinine is 1.7 with a BUN of 62. Electrolytes are all within normal limits. The patient reports improvement in shortness of breath. No significant chest pain. No cough or sputum production. Objective - Vital Signs Vital signs: Vital Signs Temp 98.0 F 01/08/25 15:00 Pulse 73 01/08/25 15:53 Resp 18 01/08/25 15:00 BP 134/46 01/08/25 15:00 Pulse Ox 96 01/08/25 15:00 FiO2 Intake & Output 01/07/25 01/08/25 01/08/25 18:59 06:59 18:59 Intake Total 600 480 Balance 600 480 Weight 81.647 kg Intake: Oral 600 480 Other: Voiding Method Toilet Toilet Bedside Commode Bedside Commode # Voids 1 2 1 # Bowel Movements 1 - Exam GENERAL EXAM: Alert, 74-year-old white female, on 2 L/min nasal cannula, comfortable in no apparent distress. HEAD: Normocephalic and atraumatic EYES: Normal reaction of pupils, equal size. NOSE: Clear with pink turbinates. THROAT: No erythema or exudates. NECK: No masses, no JVD. CHEST: No chest wall deformity. LUNGS: Equal air entry with minimal expiratory wheezing heard over the anterior lung robert bilaterally. No conversational dyspnea or accessory muscle use.. CVS: S1 and S2 normal with no audible murmur, regular rhythm. No extra heart sounds ABDOMEN: No hepatosplenomegaly, active bowel sounds, no guarding or rigidity. SPINE: No scoliosis or deformity SKIN: No rashes CENTRAL NERVOUS SYSTEM: No focal deficits, tone is normal in all 4 extremities. EXTREMITIES: There is no peripheral edema, clubbing, or cyanosis. Peripheral pulses are intact. - Labs CBC & Chem 7: 01/07/25 11:46 01/08/25 06:54 Labs: Abnormal Lab Results - Last 24 Hours (Table) 01/07/25 01/07/25 01/08/25 Range/Units 17:07 20:13 06:00 BUN (9.0-27.0) mg/dL Creatinine (0.6-1.5) mg/dL Est GFR (CKD-EPI) (>=60) BUN/Creatinine Ratio (12.00-20.00) Ratio Glucose (70-110) mg/dL POC Glucose (mg/dL) 264 H 177 H 119 H (70-110) mg/dL 01/08/25 01/08/25 Range/Units 06:54 12:17 BUN 62.8 H (9.0-27.0) mg/dL Creatinine 1.7 H (0.6-1.5) mg/dL Est GFR (CKD-EPI) 31 L (>=60) BUN/Creatinine Ratio 36.94 H (12.00-20.00) Ratio Glucose 142 H (70-110) mg/dL POC Glucose (mg/dL) 273 H (70-110) mg/dL Assessment and Plan Assessment: Exacerbation of COPD, improving. Remains on bronchodilators with DuoNeb, Symbicort and IV Solu-Medrol. CHF,, preserved lung function with valvular heart disease and mitral stenosis Acute on chronic dyspnea, secondary to combination of above Acute on top of chronic kidney injury, currently on oral Lasix Moderate COPD, with an FEV1 54% of predicted Chronic hypoxemic respiratory failure, with 2-3 L supplemental oxygen available at home and worn as needed Severe obstructive sleep apnea with an AHI of 68, intolerant to BiPAP Obesity BMI 31.9 kg/m Hypertension History of hyperlipidemia Diabetes mellitus type II, insulin-dependent Coronary disease with previous bypass surgery and previous stenting Chronic kidney disease stage III Chronic anemia, hemoglobin 8.5 g/dL Plan: Currently on supplemental oxygen, 4 L/min, wean as tolerated Most recent echocardiogram reviewed estimating preserved left ventricular ejection fraction of 55 to 60%, as well as, moderate mitral stenosis and mild mitral regurgitation. Continues on Lasix 40 mg twice daily Continue Aldactone Continue DuoNebs [id number] Symbicort inhaler IV Solu-Medrol Insulin coverage Monitor renal function Repeat chest x-ray in the morning Continue home medication including combination of valsartan, metoprolol, Farxiga Urine output is adequate. No altered mentation. Will be seen by cardiology. Will continue to follow.
[2025-01-08 17:28] LABS: Glucose,Whole Blood 192 mg/dL (70-110)
[2025-01-08 19:57] LABS: Glucose,Whole Blood 204 mg/dL (70-110)
[2025-01-09 06:01] LABS: Glucose,Whole Blood 117 mg/dL (70-110)
--- NOTE | 2025-01-09 07:38 | XR ---
EXAMINATION TYPE: XR chest 1V DATE OF EXAM: 01/09/2025 7:23 AM COMPARISON: Chest radiographs from 01/05/2025 CLINICAL INDICATION: Female, 74 years old with history of CHF; [facility] TECHNIQUE: XR chest 1V Frontal view of the chest. FINDINGS: Lungs/Pleura: There is no evidence of pleural effusion, focal consolidation, or pneumothorax. Pulmonary vascularity: Pulmonary vascular congestion. Heart/mediastinum: Cardiomediastinal silhouette is enlarged. Atherosclerotic calcifications are seen in the aorta. Musculoskeletal: No acute osseous pathology. IMPRESSION: Cardiomegaly and mild pulmonary vascular congestion. Correlate with BNP for congestive heart failure. [facility], , 01/09/2025 7:35 AM
[2025-01-09 09:01] VITALS: RESP 18
[2025-01-09 12:03] LABS: Glucose,Whole Blood 159 mg/dL (70-110)
[2025-01-09 13:06] LABS: Blood Urea Nitrogen 72.8 mg/dL (9.0-27.0); Calcium 9.3 mg/dL (8.7-10.3); Carbon Dioxide 23.2 mmol/L (21.6-31.8); Chloride 106 mmol/L (96-109); Glucose 110 mg/dL (70-110); Potassium 5.3 mmol/L (3.5-5.5); Sodium 143 mmol/L (135-145)
[2025-01-09 14:43] VITALS: BP 129/48; PULSE 70; TEMP 98.5
--- NOTE | 2025-01-09 17:41 | P.PN ---
Subjective Progress Note Date: 01/09/25 Patient is a 74-year-old female with past medical history significant for COPD, LEO, obesity, diabetes mellitus, hypertension, hyperlipidemia, coronary artery disease with previous CABG, chronic kidney disease stage III. Her primary care provider is Dr. Elvira Gonzales. Has followed in the pulmonary office with Dr. Monique. She is known to have moderate COPD with an FEV1 54% of predicted. Also, severe obstructive sleep apnea with an AHI of 68, noncompliant with BiPAP. She does have home O2 available, used as needed. Of note, patient recently hospitalized December 22 through for a combination of acute COPD exacerbation and an exacerbation of diastolic heart failure. Did have an updated echocardiogram estimating a preserved left ventricular ejection fraction of 55 to 60%, as well as, moderate mitral stenosis and mild mitral regurgitation. She returns to the emergency department late last night with a chief complaint of progressively worsening shortness of breath over the last 24 to 48 hours. Workup in the ED including a chest x-ray showing cardiomegaly, pulmonary vascular congestion, and blunting of the costophrenic angles. NT proBNP elevated at 1530. CBC: WBC count 8.6, hemoglobin 8.5, platelets 318. CMP: Sodium 140, potassium 4.8, chloride 110, serum bicarb 22, BUN 42, c reatinine 1.34, glucose 238. Lactic 1. LFTs unremarkable. Troponin 0.018 x 2. EKG: Sinus rhythm with first-degree AV block, rate 62 bpm, no acute ischemic changes. Patient currently being evaluated emergency department. She is on 2 L/min nasal cannula, SpO2 reading 100% on bedside monitor. Endorses progressively worsening shortness of breath over the last 1 to 2 days. Denies any chest pain, heart palpitations, orthopnea, PND, or increased lower extremity edema. Denies missing any doses of Lasix at home. States that her daughter and grandchildren were sick with a cold approximately 1 month ago. Endorses occasional cough with white sputum. No significant sputum purulence, hemoptysi s, fever/chills. Denies nausea, vomiting, diarrhea. Given a loading dose of Solu-Medrol and multiple DuoNeb treatments in the ED. Also, started on Lasix 40 mg twice daily. She is producing urine and has an external Wall catheter in place. Current vital signs are stable. 01/07/2025, the patient is being seen for a follow-up. Patient is comfortable in bed. No significant chest pain or shortness of breath. BP was noted to be elevated and cardiology on the case. Remains on bronchodilators. Remains on steroids and the patient is also on oral diuretics and the patient's receiving Lasix 40 mg p.o. daily and Aldactone 25 mg p.o. daily. Blood work shows a white cell count of 16 with a hemoglobin 8.7 and a platelet count of 388. BUN 61 with a creatinine of 1.3. Sodium level is at 138. Troponins are negative. For now, the patient on IV Solu-Medrol 40 mg p.o. 6 hours. 01/08/2025, the patient is being seen for a follow-up. Resting comfortably in bed. She is currently on 4 L of oxygen by nasal cannula with pulse ox of 96%. Remains on bronchodilators. Remains on Symbicort. Remains on IV Solu-Medrol 40 mg every 6 hours. Patient is currently on Lasix 40 mg p.o. daily. Blood work shows a white cell count of 16.02 with a hemoglobin 8.7, creatinine is 1.7 with a BUN of 62. Electrolytes are all within normal limits. The patient reports improvement in shortness of breath. No significant chest pain. No cough or sputum production. 01/09/2025, the patient is feeling much improved compared to yesterday. She is currently on 2 L of oxygen by nasal cannula. Repeat chest x-ray was done and there is improvement in the described by the pulmonary infiltrates. There is improved aeration although there is some residual cardiomegaly and mild pulm vessel congestion. The patient otherwise doing well. Sitting up on the chair. Creatinine is stable at 1.6 with a BUN of 13 and a sodium levels at 143. She is currently on oral Lasix. She is also on a prednisone burst taper. She is also on Aldactone 25 mg p.o. daily. Objective - Vital Signs Vital signs: Vital Signs Temp 97.4 F L 01/09/25 07:00 Pulse 76 01/09/25 12:54 Resp 18 01/09/25 07:00 BP 138/77 01/09/25 07:00 Pulse Ox 98 01/09/25 07:00 FiO2 Intake & Output 01/08/25 01/09/2501/09/25 18:59 06:59 18:59 Intake Total 1070 118 Balance 1070 118 Intake: Oral 1070 118 Other: Voiding Method Toilet Bedside Commode # Voids 1 2 # Bowel Movements 1 - Exam GENERAL EXAM: Alert, 74-year-old white female, on 2 L/min nasal cannula, comfortable in no apparent distress. HEAD: Normocephalic and atraumatic EYES: Normal reaction of pupils, equal size. NOSE: Clear with pink turbinates. THROAT: No erythema or exudates. NECK: No masses, no JVD. CHEST: No chest wall deformity. LUNGS: Equal air entry with minimal expiratory wheezing heard over the anterior lung robert bilaterally. No conversational dyspnea or accessory muscle use.. CVS: S1 and S2 normal with no audible murmur, regular rhythm. No extra heart sounds ABDOMEN: No hepatosplenomegaly, active bowel sounds, no guarding or rigidity. SPINE: No scoliosis or deformity SKIN: No rashes CENTRAL NERVOUS SYSTEM: No focal deficits, tone is normal in all 4 extremities. EXTREMITIES: There is no peripheral edema, clubbing, or cyanosis. Peripheral pulses are intact. - Labs CBC & Chem 7: 01/07/25 11:46 01/09/25 06:27 Labs: Abnormal Lab Results - Last 24 Hours (Table) 01/08/25 01/08/25 01/09/25 Range/Units 17:26 19:56 06:00 Anion Gap (4.00-12.00) mmol/L BUN (9.0-27.0) mg/dL Creatinine (0.6-1.5) mg/dL Est GFR (CKD-EPI) (>=60) BUN/Creatinine Ratio (12.00-20.00) Ratio POC Glucose (mg/dL) 192 H 204 H 117 H (70-110) mg/dL 01/09/25 01/09/25 Range/Units 06:27 12:01 Anion Gap 13.80 H (4.00-12.00) mmol/L BUN 72.8 H (9.0-27.0) mg/dL Creatinine 1.6 H (0.6-1.5) mg/dL Est GFR (CKD-EPI) 34 L (>=60) BUN/Creatinine Ratio 45.50 H (12.00-20.00) Ratio POC Glucose (mg/dL) 159 H (70-110) mg/dL Assessment and Plan Assessment: Exacerbation of COPD, improving. Remains on bronchodilators with DuoNeb, Symbicort and IV Solu-Medrol. CHF,, preserved lung function with valvular heart disease and mitral stenosis, improving the chest x-ray findings although there are some mild pulm vessel congestion Acute on chronic dyspnea, secondary to combination of above Acute on top of chronic kidney injury, currently on oral Lasix Moderate COPD, with an FEV1 54% of predicted Chronic hypoxemic respiratory failure, with 2-3 L supplemental oxygen available at home and worn as needed Severe obstructive sleep apnea with an AHI of 68, intolerant to BiPAP Obesity BMI 31.9 kg/m Hypertension History of hyperlipidemia Diabetes mellitus type II, insulin-dependent Coronary disease with previous bypass surgery and previous stenting Chronic kidney disease stage III Chronic anemia, hemoglobin 8.5 g/dL Plan: Improving the chest x-ray findings and improvement in shortness of breath Currently on supplemental oxygen, wean down to 2 L of oxygen by nasal cannula Most recent echocardiogram reviewed estimating preserved left ventricular ejection fraction of 55 to 60%, as well as, moderate mitral stenosis and mild mitral regurgitation. Continues on Lasix 40 mg twice daily Continue Aldactone Prednisone burst taper Continue DuoNebs [id number] Symbicort inhaler IV Solu-Medrol Insulin coverage Monitor renal function Repeat chest x-ray in the morning shows improvement Continue home medication including combination of valsartan, metoprolol, Farxiga Creatinine is stable Will follow
--- NOTE | 2025-01-15 23:14 | P.DS ---
Providers Date of admission: 01/05/25 22:25 Expected date of discharge: 01/09/25 Attending physician: Irwin Arredondo Consults: 01/05/25 22:22 Consult Physician Routine Consulting Provider: Ishaan Sarabia Consult Reason/Comments: chf Do you want consulting provider notified?: Yes Consult Physician Routine Consulting Provider: Haven Monique Consult Reason/Comments: hypoxia Do you want consulting provider notified?: Yes Primary care physician: Elvira Gonzales Hospital Course: Final diagnosis Acute COPD exacerbation Mild acute on chronic congestive heart failure with preserved EF Diabetes mellitus, type II, uncontrolled with hyperglycemia, insulin-dependent, steroid-induced hyperglycemia as well Chronic hypoxemic respiratory failure on oxygen at [facility] with preserved ejection fraction 2 L via nasal cannula at home as needed Obstructive sleep apnea intolerant to BiPAP Obesity BMI 31.9 Hypertension Hyperlipidemia Coronary artery disease with history of stent placement and CABG three-vessel CKD stage III Chronic anemia with hemoglobin 8.5 GI and DVT prophylaxis Full code Discharge disposition Patient is being discharged in a stable condition with guarded prognosis to home. Patient will follow-up with Dr. Gonzales in the outpatient setting upon discharge. Patient is to continue with current medication adjustments and outpatient follow-up with pulmonary as well as cardiology as scheduled. Total time taken is greater than 35 minutes. Hospital course This is a 74-year-old female who was recently admitted with chest pain along with acute COPD exacerbation. Cardiology following along with pulmonary maintained on steroids along with [id number] breathing treatments showing some improvement. Patient evaluated by cardiology making adjustments to medications recommending outpatient follow-up. Patient has been clinically improving slowly and is at baseline and would like to go home. Patient to follow-up with cardiology as well as pulmonary and primary care provider on discharge. Please refer to consultation notes for further HPI. Currently no reports of chest pain, no worsening shortness of breath, or palpitations. Patient is afebrile. No reports of nausea or vomiting and patient is tolerating diet. Patient will be discharged home today. Guarded prognosis and high risk for readmissions given significant comorbidities. Patient has had frequent ER visits and asked elevations. Physical exam: Gen: This is a 74-year-old female who is awake, alert and oriented x 3, well- developed, elderly appearing, obese HEENT: Head is atraumatic, normocephalic. Pupils equal, round. Sclerae is anicteric. NECK: Supple. No JVD. No lymphadenopathy. No thyromegaly. LUNGS: Diminished breath sounds bilaterally with some faint expiratory wheezes and coarse rhonchi. No intercostal retractions. HEART: Regular rate and rhythm. No murmur. ABDOMEN: Soft. Obese. Bowel sounds are present. No masses. No tenderness. EXTREMITIES: No pedal edema. No calf tenderness. NEUROLOGICAL: Patient is awake, alert and oriented x3. Cranial nerves 2 through 12 are grossly intact. Please refer to medication reconciliation sheet for a list of medications. The impression and plan of care has been dictated by Judith Brown, Nurse Practitioner as directed. Dr. Dewey MD I have performed a history and examination and MDM of this patient, discussed the same with the dictator, and agree with the dictator's assessment and plan as written ,documented as a scribe. Based on total visit time, I have performed more than 50% of the visit. Patient Condition at Discharge: Fair Plan - Discharge Summary New Discharge Prescriptions: New Dapagliflozin Propanediol [Farxiga] 10 mg PO DAILY #30 tab Losartan [Cozaar] 100 mg PO DAILY #60 tab Ipratropium-Albuterol Nebulize [Duoneb 0.5 mg-3 mg/3 ml Soln] 3 ml INHALATION RT-QID each Furosemide [Lasix] 40 mg PO DAILY #30 tab predniSONE See Taper PO DIRECTED #30 tab Acetaminophen Tab [Tylenol] 650 mg PO Q6HR PRN tab PRN Reason: Headache Cholecalciferol [Vitamin D3 (25 Mcg = 1000 Iu)] 25 mcg PO DAILY #30 tab Continue Atorvastatin [Lipitor] 80 mg PO HS Clopidogrel Bisulfate [Plavix] 75 mg PO DAILY Aspirin EC [Ecotrin Low Dose] 81 mg PO DAILY Metoprolol Succinate [Toprol XL] 50 mg PO DAILY Insulin Glargine,Hum.rec.anlog [Lantus Solostar Pen] 80 units SQ HS Insulin Lispro [humaLOG Kwikpen] 20 units SQ AC-TID Albuterol Nebulized [Ventolin Nebulized] 2.5 mg INHALATION RT-TID PRN PRN Reason: Shortness Of Breath Omeprazole [PriLOSEC] 20 mg PO AC-BID Budesonide-Formot 160-4.5 Mcg [Symbicort 160-4.5 Mcg Inhaler] 2 puff INHALATION RT-BID 30 Days #1 each Spironolactone [Aldactone] 25 mg PO DAILY Discharge Medication List Atorvastatin [Lipitor] 80 mg PO HS 09/23/20 [History] Aspirin EC [Ecotrin Low Dose] 81 mg PO DAILY 12/12/21 [History] Clopidogrel Bisulfate [Plavix] 75 mg PO DAILY 12/12/21 [History] Metoprolol Succinate [Toprol XL] 50 mg PO DAILY 11/02/23 [History] Omeprazole [PriLOSEC] 20 mg PO AC-BID 11/02/23 [History] Budesonide-Formot 160-4.5 Mcg [Symbicort 160-4.5 Mcg Inhaler] 2 puff INHALATION RT-BID 30 Days #1 each 11/05/23 [Rx] Insulin Glargine,Hum.rec.anlog [Lantus Solostar Pen] 80 units SQ HS 05/01/24 [History] Albuterol Nebulized [Ventolin Nebulized] 2.5 mg INHALATION RT-TID PRN 12/21/24 [History] Insulin Lispro [humaLOG Kwikpen] 20 units SQ AC-TID 12/21/24 [History] Spironolactone [Aldactone] 25 mg PO DAILY 12/21/24 [History] Acetaminophen Tab [Tylenol] 650 mg PO Q6HR PRN tab 01/09/25 [Rx] Cholecalciferol [Vitamin D3 (25 Mcg = 1000 Iu)] 25 mcg PO DAILY #30 tab 01/09/25 [Rx] Dapagliflozin Propanediol [Farxiga] 10 mg PO DAILY #30 tab 01/09/25 [Rx] Furosemide [Lasix] 40 mg PO DAILY #30 tab 01/09/25 [Rx] Ipratropium-Albuterol Nebulize [Duoneb 0.5 mg-3 mg/3 ml Soln] 3 ml INHALATION RT-QID each 01/09/25 [Rx] Losartan [Cozaar] 100 mg PO DAILY #60 tab 01/09/25 [Rx] predniSONE See Taper PO DIRECTED #30 tab 01/09/25 [Rx] Follow up Appointment(s)/Referral(s): Elvira Gonzales MD [Primary Care Provider] - 1-2 days Haven Monique MD [STAFF PHYSICIAN] - 1 Week Frank Driscoll DO [STAFF PHYSICIAN] - 1 Week Ambulatory/Diagnostic Orders: Basic Metabolic Panel [LAB.AMB] Time Frame: 3 Days, Location: None Selected Activity/Diet/Wound Care/Special Instructions: Activity limited until follow-up Follow-up with primary care provider on discharge Follow-up with pulmonary outpatient Follow-up with cardiology outpatient Continue taking medications as prescribed Continue prednisone taper Discharge Disposition: HOME SELF-CARE
== END 2025-01-09 15:38 | disposition home or self-care (01) | DRG 291 ==
LOC: EC 20:15 → 6NMEDSUR 22:25 → OBSVTOIN 22:25 → 6NMEDSUR 22:35
PROVIDERS: ADMIT Hospitalist; ATTEND Hospitalist
DX: I13.0 Hypertensive heart and chronic kidney disease with heart failure and stage 1 through stage 4 chronic kidney disease, or unspecified chronic kidney disease (principal); I50.33 Acute on chronic diastolic (congestive) heart failure; J44.1 Chronic obstructive pulmonary disease with (acute) exacerbation; D63.1 Anemia in chronic kidney disease; Z95.1 Presence of aortocoronary bypass graft; N18.30 Chronic kidney disease, stage 3 unspecified; E11.22 Type 2 diabetes mellitus with diabetic chronic kidney disease; F03.90 Unspecified dementia, unspecified severity, without behavioral disturbance, psychotic disturbance, mood disturbance, and anxiety; Z68.31 Body mass index [BMI] 31.0-31.9, adult; I05.0 Rheumatic mitral stenosis; J96.11 Chronic respiratory failure with hypoxia; N17.9 Acute kidney failure, unspecified; Z79.4 Long term (current) use of insulin; E11.42 Type 2 diabetes mellitus with diabetic polyneuropathy; E11.65 Type 2 diabetes mellitus with hyperglycemia; I25.5 Ischemic cardiomyopathy; I44.0 Atrioventricular block, first degree; E66.9 Obesity, unspecified; G47.33 Obstructive sleep apnea (adult) (pediatric); E78.5 Hyperlipidemia, unspecified; N18.9 Chronic kidney disease, unspecified; T38.0X5A Adverse effect of glucocorticoids and synthetic analogues, initial encounter; I25.10 Atherosclerotic heart disease of native coronary artery without angina pectoris; Z95.5 Presence of coronary angioplasty implant and graft; Z91.199 Patient's noncompliance with other medical treatment and regimen due to unspecified reason; Z87.891 Personal history of nicotine dependence; Z79.82 Long term (current) use of aspirin; Z79.51 Long term (current) use of inhaled steroids; Z79.84 Long term (current) use of oral hypoglycemic drugs; Z79.899 Other long term (current) drug therapy; Z79.02 Long term (current) use of antithrombotics/antiplatelets; I25.2 Old myocardial infarction; Z86.73 Personal history of transient ischemic attack (TIA), and cerebral infarction without residual deficits
CPT/HCPCS: 36415; 71045; 80048; 80053; 83605; 83735; 83880; 84484; 85025; 85610; 85730; 93005; 94640; 96372; 96374; 96375; 96376; 99291